=== PATIENT | male | born 1945 | race Caucasian/White ===

== ENCOUNTER 2016-08-22 08:15 | Inpatient (IN) | payer OTHER, BC ==
[2016-08-22] MEDS ORDERED: SODIUM CHLORIDE 500 ML IV STA (08:40)
--- NOTE | 2016-08-22 08:40 | PDOC ---
History of Present Illness - General Chief Complaint: Weakness Stated Complaint: WEAKNESS Time Seen by Provider: 08/22/16 08:37 History Source: Patient Exam Limitations: No Limitations - History of Present Illness Initial Comments: 08/22/16 08:42 Patient is a 71 year old male with PMH of HTN, HLD, Paroxysmal AFib, Known LBBB , Diverticulitis, COPD, Kidney stones (s/p R UVJ Stent) & depression/anxiety who presents to ED with diarrhea & loss of appetite for 2-3 days. He states he is in constant back and leg pain all the time and takes percocet for pain management. The last few days he states he has developed diarrhea and has stopped eating or drinking much. He woke up this morning covered in diarrhea and was very nauseous so he decided to come in to ED. He also reports chills, headache and mild dizziness. He also mentions having a mild cough recently that has been minimally productive with white phlegm. Denies any vomiting, chest pain , shortness of breath, or visual changes. Patient notes that he does not take most of his prescribed medications except Percocet, Xanax and "some of my blood pressure medications" (he is unable to state which exactly). Past History - Travel Traveled outside of the country in the last 30 days: No Close contact w/someone who was outside of country & ill: No - Past Medical History Allergies/Adverse Reactions: Allergies Allergy/AdvReac Type Severity Reaction Status Date / Time pregabalin [From Lyrica] Allergy Mild Verified 08/22/16 08:37 pravastatin sodium Allergy Unknown Verified 08/22/16 08:37 [From Pravachol] lactose Allergy Nausea Verified 08/22/16 08:37 morphine Allergy Verified 08/22/16 08:37 Penicillins Allergy Verified 08/22/16 08:37 Home Medications: Ambulatory Orders Atorvastatin Ca [Lipitor] 10 mg PO HS #30 tablet 11/23/14 Oxycodone HCl/Acetaminophen [Percocet 5-325 mg Tablet] 1 combo PO Q6H PRN #14 tablet 11/23/14 Lisinopril [Prinivil] 20 mg PO BID 06/24/15 Trazodone HCl [Desyrel -] 50 mg PO HS PRN 07/22/15 Pantoprazole Sodium [Protonix -] 40 mg PO BID #60 tablet.ec 07/26/15 Duloxetine HCl [Cymbalta -] 30 mg PO BID #60 capsule.dr 03/29/16 Metoprolol Succinate [Toprol XL -] 25 mg PO DAILY #30 tab.sr.24h 03/29/16 Alendronate Sodium [Fosamax] 0 mg PO WEEKLY 04/12/16 Alprazolam [Xanax] 0.25 mg PO BID 04/12/16 Tamsulosin HCl [Flomax -] 0.4 mg PO DAILY #30 cap.er.24h 05/24/16 Diltiazem Cd [Cardizem Cd -] 120 mg PO DAILY #30 cap.cd.24h 05/29/16 Docusate Sodium [Colace -] 100 mg PO BID #60 capsule 06/07/16 Oxycodone HCl/Acetaminophen [Percocet 5-325 mg Tablet] 1 - 2 tab PO Q4H Anemia: No Asthma: No Cancer: No Cardiac Disorders: Yes (HTN, HLD, Paroxysmal AFib) CVA: No COPD: Yes CHF: No Diabetes: No GI Disorders: Yes (Diverticulitis, IBS, hemorrhoids) Disorders: Yes (Englarged Prostate) HTN: Yes Hypercholesterolemia: Yes Kidney Stones: Yes (s/p Right UVJ Stent placement) Liver Disease: No Psychiatric Problems: Yes (Depression/Anxiety) Suicide Attempt (Hx): No Seizures: No Thyroid Disease: No - Surgical History Abdominal Surgery: Yes (Hernia Repair) Appendectomy: No Cardiac Surgery: No Cholecystectomy: No GI Surgery: Yes (HEMORRHOIDS/ANAL ULCER, RIGHT UVJ STENT) Lung Surgery: No Neurologic Surgery: No Orthopedic Surgery: Yes (Lumbar Back Surgery x2) - Family Disease History Comment:: Unknown - Immunization History Immunization Up to Date: Yes - Psycho/Social/Smoking Cessation Hx Anxiety: Yes Suicidal Ideation: No Smoking Status: No Smoking History: Former smoker Years of Tobacco Use: 20 Have you smoked in the past 12 months: No Number of Cigarettes Smoked Daily: 0 If you are a former smoker, when did you quit?: over 25 years ago Information on smoking cessation initiated: No 'Breaking Loose' booklet given: 09/08/13 Hx Alcohol Use: No Drug/Substance Use Hx: No Substance Use Type: None Hx Substance Use Treatment: No Review of Systems - Review of Systems Able to Perform ROS?: Yes Is the patient limited Sinhala proficient: No Constitutional: Yes: Chills, Loss of Appetite, Malaise, Weakness Respiratory: Yes: Cough Cardiac (ROS): Yes: Lightheadedness ABD/GI: Yes: Diarrhea, Nausea, Poor Appetite, Poor Fluid Intake : Yes: Incontinence Musculoskeletal: Yes: Back Pain, Muscle Pain Neurological: Yes: Headache, Dizziness Psychiatric: Yes: Anxiety, Depression *Physical Exam - Vital Signs Last Vital Signs Temp Pulse Resp BP Pulse Ox 98.3 F 93 H 18 161/81 98 08/22/16 08:35 08/22/16 08:35 08/22/16 08:35 08/22/16 08:35 08/22/16 08:37 - Physical Exam General Appearance: Yes: Other (Diaper covered with diarrhea, mild distress & anxiety) HEENT: positive: Other (Atraumatic, EOMI, PERRLA, Dry mucus membranes) Neck: positive: Trachea midline, Supple Respiratory/Chest: positive: Lungs Clear, Normal Breath Sounds Cardiovascular: positive: Regular Rhythm, Regular Rate, S1, S2 Gastrointestinal/Abdominal: positive: Normal Bowel Sounds, Flat, Soft Musculoskeletal: positive: Normal Inspection Extremity: positive: Normal Inspection, Normal Range of Motion Integumentary: positive: Normal Color, Dry, Warm Neurologic: positive: elevated motorman II-XII NML intact, Fully Oriented, Alert, Motor Strength 5/5 Heart Score/ECG Review - ECG Impressions Normal ECG: No Comment:: 08/22/16 08:54 EKG shows NSR, Old LBBB, Left Boulevard deviation, HR 95 ED Treatment Course - LABORATORY CBC & Chemistry Diagram: 08/22/16 08:42 08/22/16 08:41 - RADIOLOGY Radiology Studies Ordered: Category Date Time Status CHEST X-RAY PORTABLE* [RAD] Stat Radiology 08/22/16 08:38 Ordered 08/22/16 09:02 CXR: No significant interval change or acute lung disease. Medical Decision Making - Medical Decision Making 08/22/16 08:56 Ordered, CBC, CMP, Lactate, UA, Mg. Ordered influenza nasal swab. Ordered CXR. Will bolus 500cc NS for dehydration. 08/22/16 10:04 Leukocytosis with left shift, Lactic acid mildly elevated at 2.12 and Creatinine 1.5 (baseline ~1.3). Will order Abdomen & Pelvis CT to r/o Ischemia, Diverticulitis. 08/22/16 10:54 1mg Dilaudid given for pain management. Patient states he has taken dilaudid on several other admissions with good resolution of his pain. 08/22/16 16:09 CT scan of the abdomen and pelvis notable for mild bi-basilar atelectatic changes, L>R, with possible superimposed infiltrates in the left lung base Given WBC elevation and infiltrate seen on imaging, patient will be admitted for Pneumonia. Aztreonam started given patient's recent hospitalization Case discussed with hospitalist-will admit *DC/Admit/Observation/Transfer Diagnosis at time of Disposition: Left lower lobe pneumonia, Leukocytosis, Abdominal pain, Hydronephrosis, Acute urinary retention - Discharge Dispostion Admit: Yes
--- NOTE | 2016-08-22 09:08 | PDOC ---
Attending Attestation - Resident Resident Name: RobertRafaela - ED Attending Attestation I have performed the following: I have examined & evaluated the patient, The case was reviewed & discussed with the resident, I agree w/resident's findings & plan - HPI HPI: 08/22/16 09:06 81-year-old male with a past medical history of hypertension, hyperlipidemia, left bundle branch block, paroxysmal A. fib, COPD, status post UVJ stent secondary to ureterolithiasis, chronic musculoskeletal pain issues, for which he takes Percocet Patient is complaining of worsening of his generalized chronic pain He is also complaining of some chills nausea and weakness, and had diarrhea and some abdominal discomfort yesterday He does have IBS, and states that he does often vertigo he gets chronic abdominal discomfort But this time he now has diarrhea, without blood or black tarry stool He was nauseated but did not vomit He denies any fever - Physicial Exam PE: 08/22/16 09:08 Physical exam Last Vital Signs Temp Pulse Resp BP Pulse Ox 98.3 F 93 H 18 161/81 98 08/22/16 08:35 08/22/16 08:35 08/22/16 08:35 08/22/16 08:35 08/22/16 08:37 GENERAL: The patient is awake, alert, and fully oriented, and in no apparent distress. HEAD: Normal with no signs of trauma. NECK: Normal range of motion, supple LUNGS: Breath sounds equal, clear to auscultation bilaterally. No wheezes, and no crackles. HEART: Regular rate and rhythm, normal S1 and S2 without murmur, rub or gallop. ABDOMEN: Soft, nontender, normoactive bowel sounds. No guarding, no rebound. No masses appreciated. Men is completely soft and nontender at this time EXTREMITIES: Normal range of motion, no edema. No clubbing or cyanosis. No cords, erythema, or tenderness. NEUROLOGICAL: Cranial nerves II through XII grossly intact. Normal speech, grossly nonfocal neurologic exam PSYCH: Normal mood, normal affect. SKIN: Warm, Dry, - Medical Decision Making 08/22/16 09:10 EKG Normal sinus rhythm 95, left axis deviation -56 Normal DE interval Left bundle branch block Nonspecific ST-T waves One PVC is noted When compared to the EKG of 10/30/16 A left bundle branch block was present on the prior EKG, as was the left axis deviation 08/22/16 09:52 Microbiology 08/22/16 08:41 Influenza Types A,B Antigen (SABA) - Final Nasopharyngeal Swab - Final Laboratory Results - last 24 hr 08/22/16 08/22/16 08:41 08:42 WBC 14.3 H D RBC 4.50 D Hgb 15.0 D Hct 45.0 D MCV 100.0 H MCHC 33.4 RDW 14.2 Plt Count 167 D MPV 10.2 D Neutrophils % 89.6 H D Lymphocytes % 3.7 L D Monocytes % 5.1 Eosinophils % 1.2 Basophils % 0.4 Sodium 141 Potassium 4.5 Chloride 106 Carbon Dioxide 27 Anion Gap 8 BUN 25 H D Creatinine 1.5 H Creat Clearance w eGFR 45.87 Random Glucose 99 Calcium 9.5 Magnesium 2.3 D Total Bilirubin 0.4 AST 21 D ALT 49 D Alkaline Phosphatase 64 D Total Protein 7.3 D Albumin 4.6 D 08/22/16 09:53 Influenza A and B- negative Chest x-ray NAD Elevated white count with left shift, also elevated BUN to creatinine ratio consistent with dehydration 08/22/16 12:26 CT scan of the abdomen and pelvis COPD changes with mild bi-basilar atelectatic changes are again seen, left more than right with possible superimposed infiltrates in the left lung base There is interval removal of previously visualized right ureteral stent There remains a moderate dilatation of the right renal pelvis, and mild dilatation of the right ureter Extensive diverticulosis without acute diverticulitis Multilevel DJD Elevated white count, elevated lactic acid (mildly elevated), and possible new infiltrate seen on chest x-ray 08/22/16 13:07 Recent hospitaliztion Pt allergic to PCN - cannot cover with levaquin and zosyn, will use aztreonam 08/22/16 13:10 he currently in urinary retention, and has not urinated since he came into the emergency department although he feels like he has to Will place Medrano catheter We'll evaluate for urinary tract infection also Case discussed with hospitalist-will admit 08/22/16 13:11 Impression-left lower lobe infiltrate, dehydration, diarrhea, exacerbation of chronic abdominal pain, urinary retention Discharge Disposition - Diagnosis Left lower lobe pneumonia, Leukocytosis, Abdominal pain, Hydronephrosis, Acute urinary retention - Discharge Dispostion Disposition: VNS/HOME HEALTH CARE Condition at time of disposition: Improved Last Admission D/C Date: 06/07/16 Admit: Yes - Prescriptions
[2016-08-22 09:12] LABS: BASOPHIL 0.4 % (0-2.0); EOSINOPHIL 1.2 % (0-4.5); MCH 33.4 pg (25.7-33.7); MCHC 33.4 g/dl (32.0-35.9); MEAN PLT VOLUME 10.2 fl (7.5-11.1); NEUTROPHILS 89.6 % (42.8-82.8); PLATELET COUNT 167 K/MM3 (134-434); RDW 14.2 % (11.9-15.9); WHITE BLOOD COUNT 14.3 K/mm3 (4.0-10.0)
[2016-08-22 09:37] LABS: ALBUMIN 4.6 g/dl (3.4-5.0); CALCIUM 9.5 mg/dL (8.5-10.1); CREATININE 1.5 mg/dL (0.7-1.3); MAGNESIUM 2.3 mg/dL (1.8-2.4)
[2016-08-22 09:38] LABS: BILIRUBIN,TOTAL 0.4 mg/dL (0.2-1.0); TOT PROT 7.3 g/dl (6.4-8.2)
[2016-08-22] MEDS ORDERED: OXYCODONE/APAP 5/325MG COMBO TABLET PO ONE (10:48)
[2016-08-22] MEDS ORDERED: HYDROmorphone HCL CARPU-JECT 1 MG/1 ML DISP.SYRIN ONE ×2 (10:58→20:05)
[2016-08-22] MEDS: HYDROmorphone HCL CARPU-JECT 1 MG/1 ML DISP.SYRIN IVPUSH PRN ×2 (10:59→20:11)
[2016-08-22] MEDS ORDERED: AZTREONAM 1 GM in DEXTROSE 5%-WATER - 50 ML IVPB ONE (13:11)
[2016-08-22 13:37] LABS: URINE APPEARANCE CLEAR; URINE BILIRUBIN NEGATIVE (NEGATIVE); URINE BLOOD NEGATIVE (NEGATIVE); URINE COLOR LTYELLOW; URINE GLUCOSE (UA) NEGATIVE (NEGATIVE); URINE KETONE NEGATIVE (NEGATIVE); URINE NITRITE NEGATIVE (NEGATIVE); URINE PROTEIN NEGATIVE (NEGATIVE); URINE UROBILINOGEN NEGATIVE E.U./dl (0.2-1.0)
[2016-08-22 13:38] LABS: URINE LEUK ESTERASE TRACE (NEGATIVE)
[2016-08-22 13:40] LABS: URINE MUCUS RARE; URINE RBC 1 /hpf (0-3); URINE WBC 4 /hpf (3-5)
[2016-08-22] MEDS ORDERED: OXYCODONE/APAP 5/325MG COMBO TABLET PO PRN (13:59)
[2016-08-22] MEDS ORDERED: ALPRAZOLAM 0.25 MG PO PRN (13:59)
--- NOTE | 2016-08-22 13:59 | HP ---
PCP: None CHIEF COMPLAINT: Weakness HISTORY OF PRESENT ILLNESS: This is a 71-year-old man who comes to the ER today because of worsening weakness. He says he has chronic pain in his low back, hips and legs. He usually has difficulty walking and getting around. For the last few days, he has been feeling worse. He also reports having occasional chills. He denies chest pain, shortness of breath, palpitations, cough. He has been incontinent of urine. He denies dysuria, hematuria. He says he has not been to a physician in 3 years, he just calls an ambulance to take him to the ER when needed. PAST MEDICAL HISTORY Hypertension Hyperlipidemia Paroxymal atrial fibrillation Mild pulmonary hypertension COPD Depression and anxiety Kidney stones Chronic pain Failed back syndrome Osteoarthritis Osteoporosis Stage 3 CKD Diverticulosis PAST SURGICAL HISTORY Hernia repair Back surgery x2 Allergies pregabalin [From Lyrica] Allergy (Mild, Verified 08/22/16 08:37) pravastatin sodium [From Pravachol] Allergy (Unknown, Verified 08/22/16 08:37) however, pt takes atorvastatin 10 mg daily at home, reportedly without side effects lactose Allergy (Verified 08/22/16 08:37) Nausea morphine Allergy (Verified 08/22/16 08:37) unknown Penicillins Allergy (Verified 08/22/16 08:37) unknown affect HOME MEDICATIONS 3 Medication Instructions Recorded Atorvastatin Ca [Lipitor] 10 mg PO HS #30 tablet 11/23/14 Oxycodone HCl/Acetaminophen 1 combo PO Q6H PRN #14 tablet 11/23/14 [Percocet 5-325 mg Tablet] Lisinopril [Prinivil] 20 mg PO BID 06/24/15 Trazodone HCl [Desyrel -] 50 mg PO HS PRN 07/22/15 Pantoprazole Sodium [Protonix -] 40 mg PO BID #60 tablet.ec 07/26/15 Duloxetine HCl [Cymbalta -] 30 mg PO BID #60 capsule. 03/29/16 Metoprolol Succinate [Toprol XL -] 25 mg PO DAILY #30 tab.sr.24h 03/29/16 Alendronate Sodium [Fosamax] 0 mg PO WEEKLY 04/12/16 Alprazolam [Xanax] 0.25 mg PO BID 04/12/16 Tamsulosin HCl [Flomax -] 0.4 mg PO DAILY #30 cap.er.24h 05/24/16 Diltiazem Cd [Cardizem Cd -] 120 mg PO DAILY #30 cap.cd.24h 05/29/16 Docusate Sodium [Colace -] 100 mg PO BID #60 capsule 06/07/16 Oxycodone HCl/Acetaminophen 1 - 2 tab PO Q4H 08/22/16 [Percocet 5-325 mg Tablet] Social History: Smoking: Former smoker Alcohol: None Drugs: None Recent Travel: No Family History: Non-contributory REVIEW OF SYSTEMS CONSTITUTIONAL: Present: chills, generalized weakness. Absent: diaphoresis, malaise, loss of appetite, weight change HEENT: Absent: rhinorrhea, nasal congestion, throat pain, throat swelling, difficulty swallowing, mouth swelling, ear pain, eye pain, visual changes CARDIOVASCULAR: Absent: chest pain, syncope, palpitations, lightheadedness, peripheral edema RESPIRATORY: Absent: cough, shortness of breath, dyspnea with exertion, orthopnea, wheezing, stridor, hemoptysis GASTROINTESTINAL: Absent: abdominal pain, abdominal distension, nausea, vomiting , diarrhea, constipation, melena, hematochezia GENITOURINARY: Absent: dysuria, frequency, urgency, hesitancy, hematuria, flank pain MUSCULOSKELETAL: Present: myalgia, arthralgia, back pain, neck pain SKIN: Absent: rash, itching, pallor HEMATOLOGIC/IMMUNOLOGIC: Absent: easy bleeding, easy bruising, lymphadenopathy, frequent infections ENDOCRINE: Absent: unexplained weight gain, unexplained weight loss, heat intolerance, cold intolerance NEUROLOGIC: Present: urine incontinence .Absent: headache, focal weakness, paresthesias, dizziness, unsteady gait, seizure, mental status changes, bowel incontinence PSYCHIATRIC: Present: anxiety, depression. Absent: suicidal or homicidal ideation, hallucinations. PHYSICAL EXAMINATION Vital Signs Period Temp Pulse Resp BP Sys/Suazo Pulse Ox Last 24 Hr 98.3 F 93 18 161/81 98-98 GENERAL: Awake, alert, and fully oriented, in no acute distress. HEAD: Normal with no signs of trauma. EYES: Pupils equal, round and reactive to light, extraocular movements intact, sclerae anicteric, conjunctivae clear. EARS, NOSE, THROAT: Ears normal, nares patent, oropharynx clear without exudates. Moist mucous membranes. NECK: Normal range of motion, supple without lymphadenopathy, JVD, or masses. LUNGS: Breath sounds equal, clear to auscultation bilaterally. No wheezes, and no crackles. No accessory muscle use. HEART: Regular rate and rhythm, normal S1 and S2 without murmur, rub or gallop. ABDOMEN: Soft, nontender, not distended, normoactive bowel sounds, no guarding, no rebound, no masses. No hepatomegaly or splenomegaly. MUSCULOSKELETAL: Range of motion limited secondary to pain. No tenderness. No CVA tenderness. UPPER EXTREMITIES: 2+ pulses, warm, well-perfused. No cyanosis. No clubbing. Cap refill <2 seconds. No peripheral edema. LOWER EXTREMITIES: 1+ pulses, warm, well-perfused. No calf tenderness. No peripheral edema. NEUROLOGICAL: Cranial nerves II-XII intact. Normal speech. Gait not observed. PSYCHIATRIC: Cooperative. Good eye contact. Appropriate mood and affect. SKIN: Warm, dry, normal turgor, no rashes or lesions noted. Laboratory Results - last 24 hr 08/22/16 08/22/16 08/22/16 08:41 08:41 08:42 WBC 14.3 H D RBC 4.50 D Hgb 15.0 D Hct 45.0 D MCV 100.0 H MCHC 33.4 RDW 14.2 Plt Count 167 D MPV 10.2 D Neutrophils % 89.6 H D Lymphocytes % 3.7 L D Monocytes % 5.1 Eosinophils % 1.2 Basophils % 0.4 Sodium 141 Potassium 4.5 Chloride 106 Carbon Dioxide 27 Anion Gap 8 BUN 25 H D Creatinine 1.5 H Creat Clearance w eGFR 45.87 Random Glucose 99 Lactic Acid 2.123 H* Calcium 9.5 Magnesium 2.3 D Total Bilirubin 0.4 AST 21 D ALT 49 D Alkaline Phosphatase 64 D Total Protein 7.3 D Albumin 4.6 D Total Amylase 137 H D Urine Color Urine Appearance Urine pH Ur Specific Thornton Urine Protein Urine Glucose (UA) Urine Ketones Urine Blood Urine Nitrite Urine Bilirubin Urine Urobilinogen Ur Leukocyte Esterase Urine RBC Urine WBC Urine Mucus 08/22/16 13:18 WBC RBC Hgb Hct MCV MCHC RDW Plt Count MPV Neutrophils % Lymphocytes % Monocytes % Eosinophils % Basophils % Sodium Potassium Chloride Carbon Dioxide Anion Gap BUN Creatinine Creat Clearance w eGFR Random Glucose Lactic Acid Calcium Magnesium Total Bilirubin AST ALT Alkaline Phosphatase Total Protein Albumin Total Amylase Urine Color Ltyellow Urine Appearance Clear Urine pH 6.0 Ur Specific Thornton 1.015 Urine Protein Negative Urine Glucose (UA) Negative Urine Ketones Negative Urine Blood Negative Urine Nitrite Negative Urine Bilirubin Negative Urine Urobilinogen Negative Ur Leukocyte Esterase Trace H D Urine RBC 1 Urine WBC 4 Urine Mucus Rare Medication Instructions Recorded Atorvastatin Ca [Lipitor] 10 mg PO HS #30 tablet 11/23/14 Oxycodone HCl/Acetaminophen 1 combo PO Q6H PRN #14 tablet 11/23/14 [Percocet 5-325 mg Tablet] Lisinopril [Prinivil] 20 mg PO BID 06/24/15 Trazodone HCl [Desyrel -] 50 mg PO HS PRN 07/22/15 Pantoprazole Sodium [Protonix -] 40 mg PO BID #60 tablet.ec 07/26/15 Duloxetine HCl [Cymbalta -] 30 mg PO BID #60 capsule. 03/29/16 Metoprolol Succinate [Toprol XL -] 25 mg PO DAILY #30 tab.sr.24h 03/29/16 Alendronate Sodium [Fosamax] 0 mg PO WEEKLY 04/12/16 Alprazolam [Xanax] 0.25 mg PO BID 04/12/16 Tamsulosin HCl [Flomax -] 0.4 mg PO DAILY #30 cap.er.24h 05/24/16 Diltiazem Cd [Cardizem Cd -] 120 mg PO DAILY #30 cap.cd.24h 05/29/16 Docusate Sodium [Colace -] 100 mg PO BID #60 capsule 06/07/16 Oxycodone HCl/Acetaminophen 1 - 2 tab PO Q4H 08/22/16 [Percocet 5-325 mg Tablet] EKG: Sinus rhythm, rate 95. PVCs. LBBB. LAD. No change from 05/19. Chest x-ray: No acute process. CT abdomen/pelvis: Atelectasis of both lung bases with infiltrates at left base. s/p removal of right ureteral stent. Moderate dilatation of right renal pelvis. Mild dilatation of right ureter. Enlarged prostate. Lumbar degenerative disease. Diverticulosis ASSESSMENT/PLAN: This is a 71-year-old man with a history of HTN, hyperlipidemia, PAF, pulm HTN, COPD, depression, anxiety, CKD 3, and chronic pain who comes to the ER today complaining of worsening weakness, worsening pain and chills. He was found to have WBC 14.3, lactic acid 2.123, BUN 25, creatinine 1.5. CT shows left base infiltrate. He is being admitted now for treatment of an emergent condition. 1. Pneumonia - Allergic to penicillin, so Azactam given in ER - Monitor temp, WBC - Follow up blood cultures - Repeat lactic acid - Oxygen as needed, Albuterol as needed - ID consult 2. Hypertension - Continue Toprol XL, Cardizem CD, Lisinopril 3. Hyperlipidemia - Continue Lipitor 4. Paroxysmal atrial fibrillation - Currently in sinus rhythm - Continue Toprol XL, Cardizem CD 5. Mild pulmonary hypertension 6. COPD - Stable - DuoNeb as needed 7. Depression and anxiety - Continue Cymbalta, Trazodone, Xanax 8. Chronic pain - Continue Percocet as needed 9. Failed back syndrome 10. Osteoarthritis 11. Osteoporosis - Continue Fosamax 12. Stage 3 CKD - Creatinine is at baseline but BUN higher - IV fluid and monitor BUN, creatinine 13. BPH - Continue Flomax Visit type - Emergency Visit Emergency Visit: Yes Care time: The patient presented to the Emergency Department on the above date and was hospitalized for further evaluation of their emergent condition. - New Patient This patient is new to me today: Yes Date on this admission: 08/22/16 - Critical Care Critical Care patient: No
[2016-08-22] MEDS ORDERED: traZODone HCL 50 MG TABLET (FP) PO SCH (14:00)
[2016-08-22] MEDS ORDERED: ALBUTEROL SO4 0.083% IH SOL 2.5 MG/3 ML VIAL.NEB. NEB PRN (14:02)
[2016-08-22] MEDS ORDERED: ACETAMINOPHEN 325 MG TABLET (FP) PO PRN ×2 (14:02→14:31)
[2016-08-22] MEDS: SODIUM CHLORIDE 1,000 ML IV SCH (14:19)
[2016-08-22] MEDS ORDERED: ALPRAZolam 0.25 MG TABLET PO PRN (14:30)
[2016-08-22] MEDS: HEPARIN NA (PORCINE) 5,000 UNITS/ML 1ML VIAL SQ SCH ×2 (14:55→23:55)
[2016-08-22] MEDS ORDERED: traMADol HCL 50 MG TABLET ONE (14:58)
--- NOTE | 2016-08-22 15:36 | EKG ---
Test Reason : Blood Pressure : / mmHG Vent. Rate : 095 BPM Atrial Rate : 095 BPM P-R Int : 152 ms QRS Dur : 128 ms QT Int : 384 ms P-R-T Axes : 029 -56 093 degrees QTc Int : 482 ms SINUS RHYTHM WITH OCCASIONAL PREMATURE VENTRICULAR COMPLEXES LEFT AXIS DEVIATION LEFT BUNDLE BRANCH BLOCK ABNORMAL ECG WHEN COMPARED WITH ECG OF 02-JUN-2016 09:50, NO SIGNIFICANT CHANGE WAS FOUND Confirmed by ALLY BATISTA, JUSTIN ([id number]) on 08/22/2016 3:35:46 PM Referred By: Confirmed By:JUSTIN CANALES MD
[2016-08-22] MEDS ORDERED: HEPARIN NA (PORCINE) 5,000 UNITS/ML 1ML VIAL ONE (15:43)
--- NOTE | 2016-08-22 17:09 | PN ---
Progress Note (short form) - Note Progress Note: ID Consult dictated Sepsis Possible LLL pneumonia PCN allergy Pending c/s empiric cefepime/ vancomycin Has tolerated cephalosporins in past
[2016-08-22] MEDS ORDERED: CEFEPIME HCL 1 GM VIAL (RESTRICTED TO ID) IVPB SCH (17:15)
[2016-08-22] MEDS ORDERED: CEFEPIME 1 GM in DEXTROSE 5%-WATER - 100 ML IVPB SCH (17:45)
--- NOTE | 2016-08-22 19:13 | CONS ---
DATE OF CONSULTATION: DATE OF DICTATION: 08/22/2016 INFECTIOUS DISEASE CONSULTATION HISTORY OF PRESENT ILLNESS: The patient is a 71-year-old male evaluated for sepsis. He reported to the emergency room with complaints of anorexia, nausea, diarrhea, back and leg pain. He also reported occasional cough. Upon evaluation, he was found to have an elevated white blood cell count and elevated lactic acid level. Chest x-ray showed possible left lower lobe infiltrate. He reports cough productive of whitish sputum. He denies any hemoptysis. Patient was hospitalized in May of 2016 for an obstructing right kidney stone. He underwent a right ureteral stent and laser lithotripsy. Since that time it has been removed, and he has had no urinary tract complaints. He denies any dysuria or hematuria. PAST MEDICAL HISTORY: Positive for atrial fibrillation, nephrolithiasis, hypertension, hyperlipidemia, COPD, BPH. ALLERGIES: PENICILLIN. Patient has tolerated cephalosporins in the past. MEDICATION: Include Zofran, Flomax, Tylenol, Prinivil, Cymbalta, trazodone, metoprolol, diltiazem, Lipitor. SOCIAL HISTORY: Lives at home, former smoker. SYSTEMS REVIEW: Neurologic: No loss of consciousness, seizure activity, or focal weakness. Cardiac: Negative chest pain or palpitations. Respiratory: As per HPI. Gastrointestinal: Negative vomiting or diarrhea. Genitourinary: Negative for urinary tract infection. LABORATORY DATA: White count 14.3, hematocrit 45.0, platelet count 167, creatinine 1.5. Urinalysis 4 white cells. Chest x-ray shows possible left lower lobe infiltrate. PHYSICAL EXAMINATION: General: He is awake, responsive. Vital signs: Temperature 98.4. Blood pressure 130/73, pulse 93 regular, respirations 18 per minute. HEENT: Sclerae anicteric. Cardiovascular: Heart sounds S1, S2. Respiratory: Lungs decreased breath sounds bilaterally. Abdomen: Soft. No tenderness elicited. No mass, rebound, or rigidity. Extremities: Negative for edema. IMPRESSION: 1. Sepsis. 2. Possible left lower lobe pneumonia. 3. PENICILLIN allergy. Pending sepsis workup, empiric antibiotic coverage with cefepime and vancomycin adjusted for azotemia. Patient has tolerated cephalosporins in the past. Will follow. Thank you for the kind referral. SANDOVAL GORE M.D. [id number]
[2016-08-22] MEDS ORDERED: VANCOMYCIN 1 GRAM (PRE-DOCKED) 250 ML IVPB ONE (20:14)
[2016-08-22] MEDS: VANCOMYCIN 1 GRAM (PRE-DOCKED) 250 ML IVPB SCH (20:15)
[2016-08-22] MEDS: DOCUSATE SODIUM 100 MG CAPSULE (FP) PO SCH (23:55)
[2016-08-22] MEDS: PANTOPRAZOLE 40 MG TABLET (FP) PO SCH (23:55)
[2016-08-23] MEDS ORDERED: HYDROmorphone HCL CARPU-JECT 1 MG/1 ML DISP.SYRIN ONE (00:15)
[2016-08-23] MEDS ORDERED: PANTOPRAZOLE 40 MG TABLET (FP) ONE (00:16)
[2016-08-23] MEDS ORDERED: ALPRAZolam 0.25 MG TABLET ONE (00:16)
[2016-08-23] MEDS ORDERED: DOCUSATE SODIUM 100 MG CAPSULE (FP) PO ONE (00:17)
[2016-08-23] MEDS ORDERED: LISINOPRIL 20 MG TABLET (FP) ONE (00:17)
[2016-08-23] MEDS ORDERED: HEPARIN NA (PORCINE) 5,000 UNITS/ML 1ML VIAL ONE (00:17)
[2016-08-23] MEDS ORDERED: dilTIAZem HCL 60 MG TABLET (FP) ONE (00:17)
[2016-08-23] MEDS ORDERED: TAMSULOSIN HCL 0.4 MG CAP.ER.24H (FP) ONE (00:17)
[2016-08-23] MEDS ORDERED: DULoxetine HCL 30 MG CAPSULE.DR (FP) PO ONE (00:18)
[2016-08-23] MEDS: DULoxetine HCL 30 MG CAPSULE.DR (FP) PO SCH ×3 (00:42→21:28)
[2016-08-23] MEDS: traZODone HCL 50 MG TABLET (FP) PO SCH ×2 (00:43→21:28)
[2016-08-23] MEDS: ATORVASTATIN CA 10 MG TABLET (FP) PO SCH ×2 (00:46→21:28)
[2016-08-23] MEDS: SODIUM CHLORIDE 1,000 ML IV SCH ×2 (02:12→17:17)
[2016-08-23 02:59] VITALS: BMI 25.4
[2016-08-23] MEDS: ONDANSETRON 4 MG/2 ML VIAL IVPB PRN ×3 (03:34→16:21)
[2016-08-23] MEDS: HYDROmorphone HCL CARPU-JECT 1 MG/1 ML DISP.SYRIN IVPUSH PRN (04:39)
--- NOTE | 2016-08-23 05:11 | HOSP ---
Physical Examination Vital Signs: Vital Signs Temperature 98.1 F 08/23/16 02:55 Pulse Rate 82 08/23/16 02:55 Respiratory Rate 20 08/23/16 03:05 Blood Pressure 156/86 08/23/16 02:55 O2 Sat by Pulse Oximetry (%) 96 08/23/16 03:05 Hospitalist Encounter Assessment: I was called by the nurse and was informed that patient is experiencing dry heaving associated with abdominal pain and anxiety. When I arrived patient reports the dry heaving has resolved but is still experiencing abdominal pain and nausea. Patient states the pain is located in the right lower abdomen and describe the pain as "gassy" and distended. Patient also reports he feels very anxious and needs to sleep. On examination he had regular heart rate and rhythm with no rubs, gallops, or murmurs. Lungs were clear to auscultate bilaterally. Normoactive bowel sounds with a distended abdomen and tenderness upon palpation of right lower quadrant. I spent 10 minutes with the patient and explained to him that the dilaudid can cause nausea. During the 10 minutes I spent with the patient he had no episodes of dry heaving and no episodes of severe abdominal pain. -Zofran was given -Dilaudid IVPB was held until patient feels less nauseated and patient asked to stop the Dilaudid 10 minutes later patient was in bed snoring and resting comfortably in bed. Visit type - Emergency Visit Emergency Visit: No - New Patient This patient is new to me today: Yes Date on this admission: 08/23/16 - Critical Care Critical Care patient: No
[2016-08-23] MEDS: HEPARIN NA (PORCINE) 5,000 UNITS/ML 1ML VIAL SQ SCH ×3 (06:24→21:28)
[2016-08-23] MEDS: CEFEPIME 1 GM/100 ML BAG PRE-DOCKED IVPB SCH ×2 (06:26→19:14)
[2016-08-23] MEDS ORDERED: PATIENT'S OWN MEDICATION (NON-FORMULARY) (Alendronate Na [Fosamax (Weekly)] 70 MG) PO SCH (07:00)
[2016-08-23 08:12] LABS: BASOPHIL 0.1 % (0-2.0); EOSINOPHIL 0.4 % (0-4.5); MCH 33.9 pg (25.7-33.7); MCHC 33.8 g/dl (32.0-35.9); MEAN CELL VOLUME 100.5 fl (80-96); MEAN PLT VOLUME 10.2 fl (7.5-11.1); NEUTROPHILS 92.4 % (42.8-82.8); PLATELET COUNT 142 K/MM3 (134-434); RDW 13.9 % (11.9-15.9); WHITE BLOOD COUNT 14.2 K/mm3 (4.0-10.0)
[2016-08-23 08:26] LABS: CALCIUM 8.1 mg/dL (8.5-10.1); CREATININE 1.4 mg/dL (0.7-1.3)
[2016-08-23] MEDS: DOCUSATE SODIUM 100 MG CAPSULE (FP) PO SCH ×2 (10:34→21:28)
[2016-08-23] MEDS: TAMSULOSIN HCL 0.4 MG CAP.ER.24H (FP) PO SCH (10:34)
[2016-08-23] MEDS: PANTOPRAZOLE 40 MG TABLET (FP) PO SCH ×2 (10:34→21:28)
[2016-08-23] MEDS: METOPROLOL SUCCINATE 25 MG TAB.SR.24H (FP) PO SCH (12:46)
[2016-08-23] MEDS: LISINOPRIL 20 MG TABLET (FP) PO SCH (12:46)
--- NOTE | 2016-08-23 14:29 | PN ---
Progress Note, Physician History of Present Illness: C/O generalized weakness,pain No c/o chest pain/ dyspnea/ cough Afebrile WBC remains slightly elevated Flu swab (-) BC no growth Tolerating cephalosporin - Current Medication List Current Medications: Active Medications Acetaminophen (Tylenol -) 650 mg PO Q4H PRN PRN Reason: FEVER OR PAIN Acetaminophen (Tylenol -) 325 mg PO Q6H PRN PRN Reason: FEVER OR PAIN Albuterol Sulfate (Ventolin 0.083% Nebulizer Soln -) 1 amp NEB Q4H PRN PRN Reason: SHORT OF BREATH/WHEEZING Alprazolam (Xanax -) 0.25 mg PO Q12H PRN Last Admin: 08/22/16 23:55 Dose: 0.25 mg Atorvastatin Calcium (Lipitor -) 10 mg PO HS [facility] Last Admin: 08/23/16 00:46 Dose: Not Given Cefepime HCl (Maxipime 1gm Ivpb Pre-Docked) 1 gm IVPB Q12H [facility] Last Admin: 08/23/16 06:26 Dose: 1 gm Diltiazem HCl (Cardizem Cd -) 120 mg PO DAILY [facility] Last Admin: 08/23/16 12:46 Dose: Not Given Docusate Sodium (Colace -) 100 mg PO BID [facility] Last Admin: 08/23/16 10:34 Dose: Not Given Duloxetine HCl (Cymbalta -) 30 mg PO BID [facility] Last Admin: 08/23/16 10:34 Dose: 30 mg Heparin Sodium (Porcine) (Heparin -) 5,000 unit SQ TID [facility] Last Admin: 08/23/16 06:24 Dose: 5,000 unit Hydromorphone HCl (Dilaudid Injection -) 1 mg IVPUSH Q4H PRN PRN Reason: PAIN Last Admin: 08/23/16 04:39 Dose: 1 mg Sodium Chloride (Normal Saline -) 1,000 mls @ 83 mls/hr IV ASDIR [facility] Last Admin: 08/23/16 02:12 Dose: 83 mls/hr Vancomycin HCl (Vancomycin (Pre-Docked)) 250 mls @ 200 mls/hr IVPB Q24H [facility] Last Admin: 08/22/16 20:15 Dose: 200 mls/hr Lisinopril (Prinivil) 20 mg PO DAILY [facility] Last Admin: 08/23/16 12:46 Dose: Not Given Metoprolol Succinate (Toprol Xl -) 25 mg PO DAILY [facility] Last Admin: 08/23/16 12:46 Dose: Not Given Ondansetron HCl (Zofran Injection) 4 mg IVPB Q6H PRN PRN Reason: NAUSEA Last Admin: 08/23/16 10:14 Dose: 4 mg Oxycodone HCl (Roxicodone -) 5 mg PO Q6H PRN Pantoprazole Sodium (Protonix -) 40 mg PO BID [facility] Last Admin: 08/23/16 10:34 Dose: 40 mg Tamsulosin HCl (Flomax -) 0.4 mg PO DAILY [facility] Last Admin: 08/23/16 10:34 Dose: 0.4 mg Trazodone HCl (Desyrel -) 50 mg PO HS [facility] Last Admin: 08/23/16 00:43 Dose: Not Given - Objective Vital Signs: Vital Signs Temperature 98.5 F 08/23/16 09:00 Pulse Rate 85 08/23/16 12:30 Respiratory Rate 20 08/23/16 09:00 Blood Pressure 114/66 08/23/16 12:30 O2 Sat by Pulse Oximetry (%) 96 08/23/16 09:00 Constitutional: Yes: No Distress Eyes: Yes: Conjunctiva Clear Cardiovascular: Yes: Regular Rate and Rhythm, S1, S2 Respiratory: Yes: Diminished Gastrointestinal: Yes: Normal Bowel Sounds, Soft. No: Tenderness Labs: CBC, BMP 08/23/16 06:25 08/23/16 06:25 Assessment/Plan LLL pneumonia Possible sepsis secondary to pneumonia PCN allergy Await cultures Continue empiric cefepime/vancomycin
--- NOTE | 2016-08-23 15:36 | PN ---
Progress Note (short form) - Note Progress Note: Subjective: The patient was seen and examined at the bedside, he reports having discomfort with his walsh catheter. He was also reporting nausea this AM. Current Medications Generic Name Dose Route Start Last Admin Trade Name Freq PRN Reason Stop Dose Admin Acetaminophen 650 mg 08/22/16 14:02 Tylenol - PO Q4H PRN FEVER OR PAIN Acetaminophen 325 mg 08/22/16 14:31 Tylenol - PO Q6H PRN FEVER OR PAIN Albuterol Sulfate 1 amp 08/22/16 14:02 Ventolin 0.083% Nebulizer Soln - NEB Q4H PRN SHORT OF BREATH/WHEEZING Alprazolam 0.25 mg 08/22/16 14:30 08/22/16 23:55 Xanax - PO 0.25 mg Q12H PRN Administration Atorvastatin Calcium 10 mg 08/22/16 22:00 08/23/16 00:46 Lipitor - PO Not Given HS [facility] Cefepime HCl 1 gm 08/23/16 07:00 08/23/16 06:26 Maxipime 1gm Ivpb Pre-Docked IVPB 1 gm Q12H [facility] Administration Diltiazem HCl 120 mg 08/23/16 10:00 08/23/16 12:46 Cardizem Cd - PO Not Given DAILY [facility] Docusate Sodium 100 mg 08/22/16 22:00 08/23/16 10:34 Colace - PO Not Given BID [facility] Duloxetine HCl 30 mg 08/22/16 22:00 08/23/16 10:34 Cymbalta - PO 30 mg BID [facility] Administration Heparin Sodium (Porcine) 5,000 unit 08/22/16 14:30 08/23/16 14:39 Heparin - SQ 5,000 unit TID [facility] Administration Hydromorphone HCl 1 mg 08/22/16 10:52 08/23/16 04:39 Dilaudid Injection - IVPUSH 1 mg Q4H PRN Administration PAIN Sodium Chloride 1,000 mls @ 83 mls/hr 08/22/16 14:15 08/23/16 02:12 Normal Saline - IV 83 mls/hr ASDIR [facility] Administration Vancomycin HCl 250 mls @ 200 mls/hr 08/22/16 17:15 08/22/16 20:15 Vancomycin (Pre-Docked) IVPB 200 mls/hr Q24H [facility] Administration Lisinopril 20 mg 08/23/16 10:00 08/23/16 12:46 Prinivil PO Not Given DAILY [facility] Metoprolol Succinate 25 mg 08/23/16 10:00 08/23/16 12:46 Toprol Xl - PO Not Given DAILY [facility] Ondansetron HCl 4 mg 08/22/16 14:02 08/23/16 10:14 Zofran Injection IVPB 4 mg Q6H PRN Administration NAUSEA Oxycodone HCl 5 mg 08/22/16 14:31 Roxicodone - PO Q6H PRN Pantoprazole Sodium 40 mg 08/22/16 22:00 08/23/16 10:34 Protonix - PO 40 mg BID [facility] Administration Tamsulosin HCl 0.4 mg 08/23/16 10:00 08/23/16 10:34 Flomax - PO 0.4 mg DAILY [facility] Administration Trazodone HCl 50 mg 08/22/16 22:00 08/23/16 00:43 Desyrel - PO Not Given HS [facility] Objective: Vital Signs Period Temp Pulse Resp BP Sys/Suazo Pulse Ox Last 24 Hr 98.1 F-98.7 F 82-100 20-20 99-156/57-92 96-96 Physical Exam: General: NAD, A&Ox3 Lungs: CTA bilaterally Heart: RRR, S1S2 Abd: Soft, non-tender, non-distended. Normoactive bowel sounds Ext: Warm, well-perfused. 2+ DP/PT bilaterally Neuro: CN 2-12 intact : Walsh catheter in place CBCD WBC 14.2 K/mm3 (4.0-10.0) H 08/23/16 06:25 RBC 3.94 M/mm3 (4.00-5.60) L 08/23/16 06:25 Hgb 13.4 GM/dL (11.7-16.9) D 08/23/16 06:25 Hct 39.6 % (35.4-49) 08/23/16 06:25 MCV 100.5 fl (80-96) H 08/23/16 06:25 MCHC 33.8 g/dl (32.0-35.9) 08/23/16 06:25 RDW 13.9 % (11.9-15.9) 08/23/16 06:25 Plt Count 142 K/MM3 (134-434) 08/23/16 06:25 MPV 10.2 fl (7.5-11.1) 08/23/16 06:25 CMP Sodium 138 mmol/L (136-145) 08/23/16 06:25 Potassium 4.5 mmol/L (3.5-5.1) 08/23/16 06:25 Chloride 106 mmol/L (98-107) 08/23/16 06:25 Carbon Dioxide 22 mmol/L (21-32) 08/23/16 06:25 Anion Gap 10 (8-16) 08/23/16 06:25 BUN 20 mg/dL (7-18) H 08/23/16 06:25 Creatinine 1.4 mg/dL (0.7-1.3) H 08/23/16 06:25 Creat Clearance w eGFR 45.87 (>60) 08/22/16 08:41 Random Glucose 122 mg/dL (74-106) H D 08/23/16 06:25 Calcium 8.1 mg/dL (8.5-10.1) L 08/23/16 06:25 Total Bilirubin 0.4 mg/dL (0.2-1.0) 08/22/16 08:41 AST 21 U/L (15-37) D 08/22/16 08:41 ALT 49 U/L (12-78) D 08/22/16 08:41 Alkaline Phosphatase 64 U/L (45-117) D 08/22/16 08:41 Total Protein 7.3 g/dl (6.4-8.2) D 08/22/16 08:41 Albumin 4.6 g/dl (3.4-5.0) D 08/22/16 08:41 Microbiology 08/22/16 13:50 Blood - Peripheral Venous Blood Culture - Preliminary NO GROWTH OBTAINED AFTER 24 HOURS, INCUBATION TO CONTINUE FOR 4 DAYS. 08/22/16 13:30 Blood - Peripheral Venous Blood Culture - Preliminary NO GROWTH OBTAINED AFTER 24 HOURS, INCUBATION TO CONTINUE FOR 4 DAYS. 08/22/16 13:18 Urine - Urine - Catheterized Urine Culture - Preliminary Staphylococcus Coagulase Neg 08/22/16 08:41 Nasopharyngeal Swab Influenza Types A,B Antigen (SABA) - Final 08/22/16 08:41 Nasopharyngeal Swab - Final Assessment: This is a 71 year old male with PMHx of HTN, hyperlipidemia, paroxysmal a.fib, pulmonary htn, COPD, depression, anxiety, CKD stage 3, chronic pain who presented to the ED with worsening weakness, chills, pain and was found to have a pneumonia. Plan: 1) ID: Severe sepsis 2/2 pneumonia - Lactic acidosis resolved - Influenza A&B negative - CTAP with probable superimposed infiltrates in the left lung base - Continue empiric cefepime and vancomycin - WBC remain elevated - Afebrile - Appreciate ID consult 2) : acute urinary retention - Walsh catheter placed in ED - BPH, continue Flomax - Walsh to be removed tomorrow, DTV trial CKD stage 3 - BUN trending down - Continue to monitor, Cr at baseline 3) Cardiology: Paroxysmal a.fib - Continue Toprol XL for rate control - Continue Cardizem - Patient is refusing anticoagulation HTN - As above - Continue Lisinopril Hyperlipidemia - Continue Lipitor 4) Psych: Depression, anxiety - Continue Cymbalta - Continue Trazodone - Continue Xanax 5) Pulmonary: COPD - Stable - Albuterol nebs prn 6) F/E/N: - Regular diet - Monitor electrolytes 7) Prophylaxis: - Heparin 5,000u sq tid - PT 8) Dispo: - Requires continued inpatient care CODE STATUS: FULL CODE Visit type - Emergency Visit Emergency Visit: Yes ED Registration Date: 08/22/16 Care time: The patient presented to the Emergency Department on the above date and was hospitalized for further evaluation of their emergent condition. - New Patient This patient is new to me today: Yes Date on this admission: 08/23/16 - Critical Care Critical Care patient: No
[2016-08-23] MEDS: VANCOMYCIN 1 GRAM (PRE-DOCKED) 250 ML IVPB SCH (17:14)
[2016-08-23] MEDS: oxyCODONE HCL 5 MG TABLET PO PRN (21:35)
[2016-08-24] MEDS: oxyCODONE HCL 5 MG TABLET PO PRN ×2 (05:35→21:36)
[2016-08-24] MEDS: HEPARIN NA (PORCINE) 5,000 UNITS/ML 1ML VIAL SQ SCH ×3 (05:37→21:37)
[2016-08-24] MEDS: CEFEPIME 1 GM/100 ML BAG PRE-DOCKED IVPB SCH ×2 (06:02→18:52)
[2016-08-24 07:24] LABS: MCH 34.1 pg (25.7-33.7); MCHC 34.2 g/dl (32.0-35.9); MEAN CELL VOLUME 99.7 fl (80-96); MEAN PLT VOLUME 9.9 fl (7.5-11.1); PLATELET COUNT 121 K/MM3 (134-434); RDW 13.9 % (11.9-15.9)
[2016-08-24 07:52] LABS: ALBUMIN 3.1 g/dl (3.4-5.0); BILIRUBIN,TOTAL 0.5 mg/dL (0.2-1.0); CALCIUM 7.3 mg/dL (8.5-10.1); CREATININE 1.3 mg/dL (0.7-1.3); TOT PROT 5.2 g/dl (6.4-8.2)
--- NOTE | 2016-08-24 08:31 | PN ---
Progress Note (short form) - Note Progress Note: Subjective: The patient was seen and examined at the bedside, he reports feeling weak today. Medrano catheter removed this AM, due to void trial Current Medications Generic Name Dose Route Start Last Admin Trade Name Freq PRN Reason Stop Dose Admin Acetaminophen 650 mg 08/22/16 14:02 Tylenol - PO Q4H PRN FEVER OR PAIN Acetaminophen 325 mg 08/22/16 14:31 Tylenol - PO Q6H PRN FEVER OR PAIN Albuterol Sulfate 1 amp 08/22/16 14:02 Ventolin 0.083% Nebulizer Soln - NEB Q4H PRN SHORT OF BREATH/WHEEZING Alprazolam 0.25 mg 08/22/16 14:30 08/22/16 23:55 Xanax - PO 0.25 mg Q12H PRN Administration Atorvastatin Calcium 10 mg 08/22/16 22:00 08/23/16 21:28 Lipitor - PO 10 mg HS [facility]NA Administration Cefepime HCl 1 gm 08/23/16 07:00 08/24/16 06:02 Maxipime 1gm Ivpb Pre-Docked IVPB 1 gm Q12H [facility] Administration Diltiazem HCl 120 mg 08/23/16 10:00 08/23/16 12:46 Cardizem Cd - PO Not Given DAILY [facility] Docusate Sodium 100 mg 08/22/16 22:00 08/23/16 21:28 Colace - PO 100 mg BID [facility] Administration Duloxetine HCl 30 mg 08/22/16 22:00 08/23/16 21:28 Cymbalta - PO 30 mg BID [facility] Administration Heparin Sodium (Porcine) 5,000 unit 08/22/16 14:30 08/24/16 05:37 Heparin - SQ 5,000 unit TID [facility]NA Administration Hydromorphone HCl 1 mg 08/22/16 10:52 08/23/16 04:39 Dilaudid Injection - IVPUSH 1 mg Q4H PRN Administration PAIN Sodium Chloride 1,000 mls @ 83 mls/hr 08/22/16 14:15 08/23/16 17:17 Normal Saline - IV 83 mls/hr ASDIR SIENA Administration Vancomycin HCl 250 mls @ 200 mls/hr 08/22/16 17:15 08/23/16 17:14 Vancomycin (Pre-Docked) IVPB 200 mls/hr Q24H [facility] Administration Lisinopril 20 mg 08/23/16 10:00 08/23/16 12:46 Prinivil PO Not Given DAILY [facility] Metoprolol Succinate 25 mg 08/23/16 10:00 08/23/16 12:46 Toprol Xl - PO Not Given DAILY [facility] Ondansetron HCl 4 mg 08/22/16 14:02 08/23/16 16:21 Zofran Injection IVPB 4 mg Q6H PRN Administration NAUSEA Oxycodone HCl 5 mg 08/22/16 14:31 08/24/16 05:35 Roxicodone - PO 5 mg Q6H PRN Administration Pantoprazole Sodium 40 mg 08/22/16 22:00 08/23/16 21:28 Protonix - PO 40 mg BID [facility] Administration Tamsulosin HCl 0.4 mg 08/23/16 10:00 08/23/16 10:34 Flomax - PO 0.4 mg DAILY [facility] Administration Trazodone HCl 50 mg 08/22/16 22:00 08/23/16 21:28 Desyrel - PO 50 mg HS SIENA Administration Objective: Vital Signs Period Temp Pulse Resp BP Sys/Suazo Pulse Ox Last 24 Hr 97.8 F-98.7 F 81-97 18-20 99-130/57-73 96-98 Physical Exam: General: NAD, A&Ox3 Lungs: CTA bilaterally Heart: RRR, S1S2 Abd: Soft, non-tender, non-distended. Normoactive bowel sounds Ext: Warm, well-perfused. 2+ DP/PT bilaterally Neuro: CN 2-12 intact : Medrano catheter in place CBCD WBC 8.0 K/mm3 (4.0-10.0) D 08/24/16 06:00 RBC 3.52 M/mm3 (4.00-5.60) L 08/24/16 06:00 Hgb 12.0 GM/dL (11.7-16.9) D 08/24/16 06:00 Hct 35.1 % (35.4-49) L 08/24/16 06:00 MCV 99.7 fl (80-96) H 08/24/16 06:00 MCHC 34.2 g/dl (32.0-35.9) 08/24/16 06:00 RDW 13.9 % (11.9-15.9) 08/24/16 06:00 Plt Count 121 K/MM3 (134-434) L 08/24/16 06:00 MPV 9.9 fl (7.5-11.1) 08/24/16 06:00 CMP Sodium 141 mmol/L (136-145) 08/24/16 06:00 Potassium 4.0 mmol/L (3.5-5.1) 08/24/16 06:00 Chloride 108 mmol/L (98-107) H 08/24/16 06:00 Carbon Dioxide 25 mmol/L (21-32) 08/24/16 06:00 Anion Gap 8 (8-16) 08/24/16 06:00 BUN 16 mg/dL (7-18) 08/24/16 06:00 Creatinine 1.3 mg/dL (0.7-1.3) 08/24/16 06:00 Creat Clearance w eGFR 54.11 (>60) 08/24/16 06:00 Random Glucose 101 mg/dL (74-106) 08/24/16 06:00 Calcium 7.3 mg/dL (8.5-10.1) L 08/24/16 06:00 Total Bilirubin 0.5 mg/dL (0.2-1.0) D 08/24/16 06:00 AST 12 U/L (15-37) L D 08/24/16 06:00 ALT 23 U/L (12-78) D 08/24/16 06:00 Alkaline Phosphatase 45 U/L (45-117) D 08/24/16 06:00 Total Protein 5.2 g/dl (6.4-8.2) L D 08/24/16 06:00 Albumin 3.1 g/dl (3.4-5.0) L D 08/24/16 06:00 Microbiology 08/22/16 13:50 Blood - Peripheral Venous Blood Culture - Preliminary NO GROWTH OBTAINED AFTER 24 HOURS, INCUBATION TO CONTINUE FOR 4 DAYS. 08/22/16 13:30 Blood - Peripheral Venous Blood Culture - Preliminary NO GROWTH OBTAINED AFTER 24 HOURS, INCUBATION TO CONTINUE FOR 4 DAYS. 08/22/16 13:18 Urine - Urine - Catheterized Urine Culture - Preliminary Staphylococcus Coagulase Neg 08/22/16 08:41 Nasopharyngeal Swab Influenza Types A,B Antigen (SABA) - Final 08/22/16 08:41 Nasopharyngeal Swab - Final Assessment: This is a 71 year old male with PMHx of HTN, hyperlipidemia, paroxysmal a.fib, pulmonary htn, COPD, depression, anxiety, CKD stage 3, chronic pain who presented to the ED with worsening weakness, chills, pain and was found to have a pneumonia. Plan: 1) ID: Severe sepsis 2/2 pneumonia - Lactic acidosis resolved - Influenza A&B negative - Respiratory virus panel pending - CTAP with probable superimposed infiltrates in the left lung base - Urine culture with prelim staph coag negative (contaminant per ID) - Continue empiric cefepime and vancomycin - WBC remain elevated - Afebrile - Appreciate ID consult 2) : acute urinary retention - Medrano catheter removed this AM, due to void trial - BPH, continue Flomax CKD stage 3 - BUN/Cr wnl 3) Cardiology: Paroxysmal a.fib - Continue Toprol XL for rate control - Continue Cardizem - Patient is refusing anticoagulation for paf HTN - As above - Continue Lisinopril Hyperlipidemia - Continue Lipitor 4) Psych: Depression, anxiety - Continue Cymbalta - Continue Trazodone - Continue Xanax 5) Pulmonary: COPD - Stable - Albuterol nebs prn 6) F/E/N: - Regular diet - Monitor electrolytes 7) Prophylaxis: - Heparin 5,000u sq tid - PT: walked 60 ft yesterday, continue daily PT 8) Dispo: - Requires continued inpatient care CODE STATUS: FULL CODE Visit type - Emergency Visit Emergency Visit: Yes ED Registration Date: 08/22/16 Care time: The patient presented to the Emergency Department on the above date and was hospitalized for further evaluation of their emergent condition. - New Patient This patient is new to me today: No - Critical Care Critical Care patient: No
[2016-08-24] MEDS: TAMSULOSIN HCL 0.4 MG CAP.ER.24H (FP) PO SCH (10:38)
[2016-08-24] MEDS: LISINOPRIL 20 MG TABLET (FP) PO SCH ×2 (10:38→10:45)
[2016-08-24] MEDS: DULoxetine HCL 30 MG CAPSULE.DR (FP) PO SCH ×2 (10:38→21:36)
[2016-08-24] MEDS: PANTOPRAZOLE 40 MG TABLET (FP) PO SCH ×2 (10:38→21:37)
[2016-08-24] MEDS: METOPROLOL SUCCINATE 25 MG TAB.SR.24H (FP) PO SCH ×2 (10:39→10:45)
[2016-08-24] MEDS: DOCUSATE SODIUM 100 MG CAPSULE (FP) PO SCH ×3 (10:39→21:33)
--- NOTE | 2016-08-24 11:06 | PN ---
Progress Note, Physician History of Present Illness: C/O generalized weakness, dizziness No focal complaint Afebrile WBC improved Urine c/s SCN (contaminant) - Current Medication List Current Medications: Active Medications Acetaminophen (Tylenol -) 650 mg PO Q4H PRN PRN Reason: FEVER OR PAIN Acetaminophen (Tylenol -) 325 mg PO Q6H PRN PRN Reason: FEVER OR PAIN Albuterol Sulfate (Ventolin 0.083% Nebulizer Soln -) 1 amp NEB Q4H PRN PRN Reason: SHORT OF BREATH/WHEEZING Alprazolam (Xanax -) 0.25 mg PO Q12H PRN Last Admin: 08/22/16 23:55 Dose: 0.25 mg Atorvastatin Calcium (Lipitor -) 10 mg PO HS [facility] Last Admin: 08/23/16 21:28 Dose: 10 mg Cefepime HCl (Maxipime 1gm Ivpb Pre-Docked) 1 gm IVPB Q12H [facility] Last Admin: 08/24/16 06:02 Dose: 1 gm Diltiazem HCl (Cardizem Cd -) 120 mg PO DAILY [facility] Last Admin: 08/24/16 10:43 Dose: Not Given Docusate Sodium (Colace -) 100 mg PO BID [facility] Last Admin: 08/24/16 10:45 Dose: Not Given Duloxetine HCl (Cymbalta -) 30 mg PO BID [facility] Last Admin: 08/24/16 10:38 Dose: 30 mg Heparin Sodium (Porcine) (Heparin -) 5,000 unit SQ TID [facility] Last Admin: 08/24/16 05:37 Dose: 5,000 unit Hydromorphone HCl (Dilaudid Injection -) 1 mg IVPUSH Q4H PRN PRN Reason: PAIN Last Admin: 08/23/16 04:39 Dose: 1 mg Sodium Chloride (Normal Saline -) 1,000 mls @ 83 mls/hr IV ASDIR [facility] Last Admin: 08/23/16 17:17 Dose: 83 mls/hr Vancomycin HCl (Vancomycin (Pre-Docked)) 250 mls @ 200 mls/hr IVPB Q24H [facility] Last Admin: 08/23/16 17:14 Dose: 200 mls/hr Lisinopril (Prinivil) 20 mg PO DAILY [facility] Last Admin: 08/24/16 10:45 Dose: Not Given Metoprolol Succinate (Toprol Xl -) 25 mg PO DAILY [facility] Last Admin: 08/24/16 10:45 Dose: Not Given Ondansetron HCl (Zofran Injection) 4 mg IVPB Q6H PRN PRN Reason: NAUSEA Last Admin: 08/23/16 16:21 Dose: 4 mg Oxycodone HCl (Roxicodone -) 5 mg PO Q6H PRN Last Admin: 08/24/16 05:35 Dose: 5 mg Pantoprazole Sodium (Protonix -) 40 mg PO BID [facility] Last Admin: 08/24/16 10:38 Dose: 40 mg Tamsulosin HCl (Flomax -) 0.4 mg PO DAILY [facility] Last Admin: 08/24/16 10:38 Dose: 0.4 mg Trazodone HCl (Desyrel -) 50 mg PO HS [facility] Last Admin: 08/23/16 21:28 Dose: 50 mg - Objective Vital Signs: Vital Signs Temperature 98.3 F 08/24/16 06:00 Pulse Rate 81 08/24/16 06:00 Respiratory Rate 20 08/24/16 06:00 Blood Pressure 128/72 08/24/16 06:00 O2 Sat by Pulse Oximetry (%) 98 08/23/16 20:27 Constitutional: Yes: No Distress Eyes: Yes: Conjunctiva Clear Cardiovascular: Yes: Regular Rate and Rhythm, S1, S2 Respiratory: Yes: CTA Bilaterally Gastrointestinal: Yes: Normal Bowel Sounds, Soft. No: Tenderness Edema: No Labs: CBC, BMP 08/24/16 06:00 08/24/16 06:00 Assessment/Plan LLL pneumonia Possible sepsis secondary to pneumonia PCN allergy + urine c/s(contaminant) Continue empiric cefepime D/C libradoo
[2016-08-24] MEDS: SODIUM CHLORIDE 1,000 ML IV SCH (16:41)
[2016-08-24] MEDS: ATORVASTATIN CA 10 MG TABLET (FP) PO SCH (21:37)
[2016-08-24] MEDS: traZODone HCL 50 MG TABLET (FP) PO SCH (21:37)
[2016-08-25] MEDS: oxyCODONE HCL 5 MG TABLET PO PRN (05:22)
[2016-08-25] MEDS: HEPARIN NA (PORCINE) 5,000 UNITS/ML 1ML VIAL SQ SCH (05:24)
[2016-08-25 05:34] VITALS: PULSE 75
[2016-08-25] MEDS: SODIUM CHLORIDE 1,000 ML IV SCH (06:04)
[2016-08-25] MEDS: CEFEPIME 1 GM/100 ML BAG PRE-DOCKED IVPB SCH (06:24)
[2016-08-25 08:48] LABS: MCH 34.1 pg (25.7-33.7); MCHC 34.2 g/dl (32.0-35.9); MEAN CELL VOLUME 99.7 fl (80-96); MEAN PLT VOLUME 9.6 fl (7.5-11.1); PLATELET COUNT 127 K/MM3 (134-434); RDW 13.7 % (11.9-15.9); WHITE BLOOD COUNT 6.8 K/mm3 (4.0-10.0)
[2016-08-25] MEDS: DOCUSATE SODIUM 100 MG CAPSULE (FP) PO SCH (12:21)
[2016-08-25] MEDS: METOPROLOL SUCCINATE 25 MG TAB.SR.24H (FP) PO SCH (12:21)
[2016-08-25] MEDS: PANTOPRAZOLE 40 MG TABLET (FP) PO SCH (12:21)
[2016-08-25] MEDS: LISINOPRIL 20 MG TABLET (FP) PO SCH (12:21)
[2016-08-25] MEDS: DULoxetine HCL 30 MG CAPSULE.DR (FP) PO SCH (12:21)
[2016-08-25] MEDS: TAMSULOSIN HCL 0.4 MG CAP.ER.24H (FP) PO SCH (12:21)
--- NOTE | 2016-08-25 14:33 | DS ---
[id number] Rate 19 08/25/16 05:33 Blood Pressure 131/74 08/25/16 05:33 O2 Sat by Pulse Oximetry (%) 96 08/24/16 21:00 Findings/Remarks: Physical Exam: General: NAD, A&Ox3 Lungs: CTA bilaterally Heart: RRR, S1S2 Abd: Soft, non-tender, non-distended. Normoactive bowel sounds Ext: Warm, well-perfused. 2+ DP/PT bilaterally Neuro: CN 2-12 intact : Medrano catheter in place Labs: CBC, BMP 08/25/16 07:45 08/24/16 06:00 Discharge Summary Reason For Visit: LEFT LOWER LOVE PNEUMONIA/ LEUKOCYTOSIS Current Active Problems Abdominal pain (Acute) Acute urinary retention (Acute) Hydronephrosis (Acute) Left lower lobe pneumonia (Acute) Leukocytosis (Acute) Afib (Chronic) Anxiety and depression (Chronic) Appetite loss (Chronic) Back pain (Chronic) CKD (chronic kidney disease) stage 3, GFR 30-59 ml/min (Chronic) Carotid artery stenosis (Chronic) Chronic left shoulder pain (Chronic) Chronic low back pain (Chronic) Chronic pain (Chronic) Depression (Chronic) HTN (hypertension) (Chronic) Hyperlipidemia (Chronic) LBBB (left bundle branch block) (Chronic) Osteoarthritis (Chronic) Osteoporosis (Chronic) Polysubstance (excluding opioids) dependence (Chronic) Radicular low back pain (Chronic) SVT (supraventricular tachycardia) (Chronic) Thoracic or lumbosacral neuritis or radiculitis (Chronic) Weakness (Chronic) Hospital Course: This is a 71 year old male with PMHx of HTN, hyperlipidemia, paroxysmal a.fib, pulmonary htn, COPD, depression, anxiety, CKD stage 3, chronic pain who presented to the ED with worsening weakness, chills, pain and was found to have a pneumonia. Plan: 1) ID: Severe sepsis 2/2 pneumonia - Lactic acidosis resolved - Influenza A&B negative - Respiratory virus panel pending - CTAP with probable superimposed infiltrates in the left lung base - Urine culture with prelim staph coag negative (contaminant per ID) - Discharge on Levaquin for total of 7 days - WBC remain elevated - Afebrile - Appreciate ID consult 2) : acute urinary retention - Medrano catheter removed this AM, due to void trial - BPH, continue Flomax CKD stage 3 - BUN/Cr wnl 3) Cardiology: Paroxysmal a.fib - Continue Toprol XL for rate control - Continue Cardizem - Patient is refusing anticoagulation for paf HTN - As above - Continue Lisinopril Hyperlipidemia - Continue Lipitor 4) Psych: Depression, anxiety - Continue Cymbalta - Continue Trazodone - Continue Xanax 5) Pulmonary: COPD - Stable - Albuterol nebs prn Discussed with rico Underwood d/c on Levaquin for total abx course of 7 days Condition: Improved - Instructions Diet, Activity, Other Instructions: Please return to the ED with new, persistent, or worsening symptoms. Please follow-up with providers as indicated. Please complete your full course of antibiotics as prescribed. Referrals: Armand Burden PSYD [Psychologist] - (Please follow-up with a psychologist within 1 week ) Wili Quiroz MD [Staff Physician] - 1 Week (Please follow-up with your pcp within 1 week to have your kidney function checked. ) Disposition: VNS/HOME HEALTH CARE - Home Medications Comprehensive Discharge Medication List: Ambulatory Orders Atorvastatin Ca [Lipitor] 10 mg PO HS #30 tablet 11/23/14 Lisinopril [Prinivil] 20 mg PO BID 06/24/15 Trazodone HCl [Desyrel -] 50 mg PO HS PRN 07/22/15 Pantoprazole Sodium [Protonix -] 40 mg PO BID #60 tablet.ec 07/26/15 Duloxetine HCl [Cymbalta -] 30 mg PO BID #60 capsule. 03/29/16 Metoprolol Succinate [Toprol XL -] 25 mg PO DAILY #30 tab.sr.24h 03/29/16 Alprazolam [Xanax] 0.25 mg PO BID 04/12/16 Tamsulosin HCl [Flomax -] 0.4 mg PO DAILY #30 cap.er.24h 05/24/16 Diltiazem Cd [Cardizem Cd -] 120 mg PO DAILY #30 cap.cd.24h 05/29/16 Docusate Sodium [Colace -] 100 mg PO BID #60 capsule 06/07/16 Alendronate Na [Fosamax (Weekly)] 70 mg PO WEEKLY 08/22/16 Oxycodone HCl/Acetaminophen [Percocet 5-325 mg Tablet] 1 - 2 tab PO Q4H Levofloxacin [Levaquin] 500 mg PO DAILY #3 tablet 08/25/16 This patient is new to me today: No Emergency Visit: Yes ED Registration Date: 08/22/16 Care time: The patient presented to the Emergency Department on the above date and was hospitalized for further evaluation of their emergent condition. Critical Care patient: No - Discharge Referral Referred to [facility] Yes Physician Referral: Wili Solares MD ([facility])
[2016-08-25 14:41] VITALS: BP 109/63; TEMP 98.2
== END 2016-08-25 15:17 | disposition home health service (06) | DRG 871 ==
LOC: JER 08:15 → JERBED 17:50 → J7W 08-23 01:44
PROVIDERS: ADMIT Internal Medicine; ATTEND Registered Nurse
DX: A41.9 Sepsis, unspecified organism (principal); J18.9 Pneumonia, unspecified organism; E87.2 Acidosis; R33.9 Retention of urine, unspecified; I12.9 Hypertensive chronic kidney disease with stage 1 through stage 4 chronic kidney disease, or unspecified chronic kidney disease; N18.3 Chronic kidney disease, stage 3 (moderate); E78.5 Hyperlipidemia, unspecified; I48.0 Paroxysmal atrial fibrillation; F32.9 Major depressive disorder, single episode, unspecified; F41.9 Anxiety disorder, unspecified; J44.9 Chronic obstructive pulmonary disease, unspecified; Z88.0 Allergy status to penicillin; M81.0 Age-related osteoporosis without current pathological fracture; Z87.891 Personal history of nicotine dependence; R65.20 Severe sepsis without septic shock
CPT/HCPCS: 36415; 71010-TC; 74176-TC; 80048; 80053; 81003; 81015; 82150; 83605; 83735; 85025; 85027; 87040; 87086; 87186; 87254; 87804; 93005; 93010; 97116-GP; 97161-GP; 99285-25; J1644

== ENCOUNTER 2016-09-23 13:49 | Observation (INO) | payer OTHER, BC ==
--- NOTE | 2016-09-23 14:15 | PDOC ---
History of Present Illness - General History Source: Patient Exam Limitations: No Limitations - History of Present Illness Initial Comments: 09/23/16 14:59 Patient is a 71 year old male with PMH of HTN, HLD, Paroxysmal AFib, Known LBBB , Diverticulitis, pancreatitis, COPD, Kidney stones (s/p R UVJ Stent) & depression/anxiety who presents to ED with abdominal pain, generalized weakness and SOB. Patient reports abdominal pain for few days and states that he was constipated but took laxative which is causing him to have small bowel movements. He denies any diarrhea. He notes that he is feeling more weak than usua. He also reports difficulty breathing for 2 days and received a breathing treatment by EMS. Allergies: pregabalin, pravastatin sodium, lactose, morphine, penicillins. Urologist: Dr. Josiah Valle <Amy Piper - Last Filed: 09/23/16 18:09> <Rahul Hawk - Last Filed: 09/23/16 18:12> - General Chief Complaint: Shortness of Breath Stated Complaint: ABDOMINAL PAIN/SOB Time Seen by Provider: 09/23/16 14:14 Past History <Amy Piper - Last Filed: 09/23/16 18:09> - Past Medical History Anemia: No Asthma: No Cancer: No Cardiac Disorders: Yes (HTN, HLD, Paroxysmal AFib) CVA: No COPD: Yes CHF: No Dementia: No Diabetes: No GI Disorders: Yes (Diverticulitis, IBS, hemorrhoids) Disorders: Yes (Englarged Prostate) HTN: Yes Hypercholesterolemia: Yes Kidney Stones: Yes (s/p Right UVJ Stent placement) Liver Disease: No Psychiatric Problems: Yes (Depression/Anxiety) Suicide Attempt (Hx): No Seizures: No Thyroid Disease: No - Surgical History Abdominal Surgery: Yes (Hernia Repair) Appendectomy: No Cardiac Surgery: No Cholecystectomy: No GI Surgery: Yes (HEMORRHOIDS/ANAL ULCER, RIGHT UVJ STENT) Lung Surgery: No Neurologic Surgery: No Orthopedic Surgery: Yes (Lumbar Back Surgery x2) - Immunization History Immunization Up to Date: Yes - Psycho/Social/Smoking Cessation Hx Anxiety: No Suicidal Ideation: No Smoking Status: No Smoking History: Former smoker Years of Tobacco Use: 20 Have you smoked in the past 12 months: No Number of Cigarettes Smoked Daily: 0 If you are a former smoker, when did you quit?: over 25 years ago Information on smoking cessation initiated: No 'Breaking Loose' booklet given: 09/08/13 Hx Alcohol Use: No Drug/Substance Use Hx: No Substance Use Type: None Hx Substance Use Treatment: No <Rahul Hawk - Last Filed: 09/23/16 18:12> - Past Medical History Allergies/Adverse Reactions: Allergies Allergy/AdvReac Type Severity Reaction Status Date / Time pregabalin [From Lyrica] Allergy Mild Verified 09/23/16 14:10 pravastatin sodium Allergy Unknown Verified 09/23/16 14:10 [From Pravachol] lactose Allergy Nausea Verified 09/23/16 14:10 morphine Allergy Verified 09/23/16 14:10 Penicillins Allergy Verified 09/23/16 14:10 Home Medications: Ambulatory Orders Atorvastatin Ca [Lipitor] 10 mg PO HS #30 tablet 11/23/14 Lisinopril [Prinivil] 20 mg PO BID 06/24/15 Trazodone HCl [Desyrel -] 50 mg PO HS PRN 07/22/15 Pantoprazole Sodium [Protonix -] 40 mg PO BID #60 tablet.ec 07/26/15 Duloxetine HCl [Cymbalta -] 30 mg PO BID #60 capsule.dr 03/29/16 Metoprolol Succinate [Toprol XL -] 25 mg PO DAILY #30 tab.sr.24h 03/29/16 Alprazolam [Xanax] 0.25 mg PO BID 04/12/16 Tamsulosin HCl [Flomax -] 0.4 mg PO DAILY #30 cap.er.24h 05/24/16 Diltiazem Cd [Cardizem Cd -] 120 mg PO DAILY #30 cap.cd.24h 05/29/16 Docusate Sodium [Colace -] 100 mg PO BID #60 capsule 06/07/16 Alendronate Na [Fosamax (Weekly)] 70 mg PO WEEKLY 08/22/16 Oxycodone HCl/Acetaminophen [Percocet 5-325 mg Tablet] 1 - 2 tab PO Q4H Levofloxacin [Levaquin] 500 mg PO DAILY #3 tablet 08/25/16 Review of Systems - Review of Systems Able to Perform ROS?: Yes Comments:: 09/23/16 15:02 GENERAL/CONSTITUTIONAL: +generalized weakness. No fever or chills. HEAD, EYES, EARS, NOSE AND THROAT: No change in vision. No ear pain or discharge. No sore throat. CARDIOVASCULAR: No chest pain. RESPIRATORY: +SOB. No cough, wheezing, or hemoptysis. GASTROINTESTINAL: +abdominal pain. No nausea, vomiting, diarrhea or constipation. GENITOURINARY: No dysuria, frequency, or change in urination. MUSCULOSKELETAL: No joint or muscle swelling or pain. No neck or back pain. SKIN: No rash NEUROLOGIC: No headache, vertigo, loss of consciousness, or change in strength/ sensation. ENDOCRINE: No increased thirst. No abnormal weight change. HEMATOLOGIC/LYMPHATIC: No anemia, easy bleeding, or history of blood clots. ALLERGIC/IMMUNOLOGIC: No hives or skin allergy. <Amy Piper - Last Filed: 09/23/16 18:09> *Physical Exam - Vital Signs Last Vital Signs Temp Pulse Resp BP Pulse Ox 99.3 F 56 L 18 125/49 98 09/23/16 13:58 09/23/16 13:58 09/23/16 13:58 09/23/16 13:58 09/23/16 14:32 - Physical Exam Comments: 09/23/16 15:01 GENERAL: Awake, alert, and fully oriented, in no acute distress HEAD: No signs of trauma EYES: PERRLA, EOMI, sclera anicteric, conjunctiva clear ENT: Auricles normal inspection, hearing grossly normal, nares patent, oropharynx clear without exudates. Moist mucosa NECK: Normal ROM, supple, no lymphadenopathy, JVD, or masses LUNGS: Breath sounds equal, clear to auscultation bilaterally. No wheezes, and no crackles HEART: Regular rate and rhythm, normal S1 and S2, no murmurs, rubs or gallops ABDOMEN: +Diffuse abdominal tenderness, more tender on left than right, + Decreased bowel sounds. Soft. No guarding, no rebound. No masses EXTREMITIES: Normal range of motion, no edema. No clubbing or cyanosis. No cords, erythema, or tenderness NEUROLOGICAL: Cranial nerves II through XII grossly intact. Normal speech. SKIN: Warm, Dry, normal turgor, no rashes or lesions noted. <Amy Piper - Last Filed: 09/23/16 18:09> - Vital Signs Last Vital Signs Temp Pulse Resp BP Pulse Ox 99.3 F 56 L 18 125/49 100 09/23/16 13:58 09/23/16 13:58 09/23/16 13:58 09/23/16 13:58 09/23/16 13:58 <Rahul Hawk - Last Filed: 09/23/16 18:12> Heart Score/ECG Review #1 09/23/16 15:08 ECG was reviewed by Dr. Hawk Impression: Sinus rhythm with frequent premature ventricular complexes Left acis deviation Left bundle branch Vent rate 79 <CristopherAmy talavera - Last Filed: 09/23/16 18:09> ED Treatment Course - LABORATORY CBC & Chemistry Diagram: 09/23/16 14:20 09/23/16 14:20 - ADDITIONAL ORDERS Additional order review: Laboratory Results 09/23/16 14:20 Urine Color Yellow Urine Appearance Clear Urine pH 5.0 Ur Specific [place] 1.020 Urine Protein Negative Urine Glucose (UA) Negative Urine Ketones Negative Urine Blood Negative Urine Nitrite Negative Urine Bilirubin Negative Urine Urobilinogen Negative Ur Leukocyte Esterase 2+ H D Urine RBC 2 Urine WBC 27 Urine Yeast Rare - RADIOLOGY Radiology Studies Ordered: 09/23/16 17:55 EXAM#: TYPE/EXAM: RESULT: CT/ABDOMEN PELVIS CT W/O CONTR Rule out diverticulitis. CT scan of the abdomen pelvis following oral contrast administration only Coronal and sagittal reformatted images were obtained Compared to prior CT scan of the abdomen pelvis dated 08/22/2016 There is interval better aeration of the lung base with residual mild atelectatic and bronchiectatic changes in the left lower lobe as well as mild pleural thickening, posteriorly. The heart is within normal limits in size. Evaluation of the liver, spleen, pancreas, gallbladder and right adrenal gland appear unremarkable. A right renal lower pole cyst and ectatic left kidney with a slightly lobulated contour and small partially exophytic lower pole cysts are again seen without interval change. There is no evidence of hydronephrosis or hydroureter, bilaterally. Partially distended stomach significantly limiting evaluation of its wall. There is no evidence of small bowel obstruction or enlarged retroperitoneal lymph nodes. No free air or free fluid in the abdomen pelvis. Terminal ileum and appendix appear unremarkable. Extensive diverticulosis coli again seen without evidence of acute diverticulitis. Partially distended urinary bladder limiting evaluation of its wall that appears to be thickened. Enlarged prostate gland with benign- appearing calcifications again seen. Perirectal and pericecal fat is clear Multilevel degenerative disc disease and minimal retrolisthesis of L3 over L4, grade 1 again noted. Impression: Interval better evaluation of the included lower lung with residual mild atelectatic and bronchiectatic changes in the left lower lobe. Previously described dilatation of the right renal pelvis and right ureter are no longer seen. A right and smaller left renal cyst as well as ectatic left kidney again noted. Extensive diverticulosis coli again noted without evidence of acute diverticulitis. No free air or free fluid in the abdomen and pelvis. <Amy Piper - Last Filed: 09/23/16 18:09> - LABORATORY CBC & Chemistry Diagram: 09/23/16 14:20 09/23/16 14:20 <Rahul Hawk - Last Filed: 09/23/16 18:12> Medical Decision Making - Medical Decision Making 09/23/16 15:00 71 year old male with PMH of HTN, HLD, Paroxysmal AFib, Known LBBB, Diverticulitis, pancreatitis, COPD, Kidney stones (s/p R UVJ Stent) & depression /anxiety who presents to ED with abdominal pain, generalized weakness and SOB. Will order CT to r/o diverticulitis. Will order medication and labs. Patient will be reassessed after the results are back. 09/23/16 18:09 A call was placed to Dr. Rodriguez at her office. Case discussed. <Amy Piper - Last Filed: 09/23/16 18:09> *DC/Admit/Observation/Transfer - Attestations Scribe Attestion: 09/23/16 15:01 Documentation prepared by YAZAN Irizarry, acting as medical assisting program director for Rahul Hawk MD/. <Amy Piper - Last Filed: 09/23/16 18:09> - Discharge Dispostion Admit: Yes - Attestations Physician Attestion: 09/23/16 14:15 I, Dr. Rahul Hawk, attest that this document has been prepared under my direction and personally reviewed by me in its entirety. I further attest, that it accurately reflects all work, treatment, procedures and medical decision -making performed by me. <Rahul Hawk - Last Filed: 09/23/16 18:12> Diagnosis at time of Disposition: Urinary tract infection Qualifiers: Urinary tract infection type: site unspecified Hematuria presence: without hematuria Qualified Code(s): N39.0 - Urinary tract infection, site not specified Prostatitis Qualifiers: Prostatitis type: acute Qualified Code(s): N41.0 - Acute prostatitis - Discharge Dispostion Condition at time of disposition: Good
[2016-09-23] MEDS ORDERED: SODIUM CHLORIDE 1,000 ML IV STA (14:19)
[2016-09-23 14:38] LABS: BASOPHIL 0.9 % (0-2.0); EOSINOPHIL 4.2 % (0-4.5); MCH 33.2 pg (25.7-33.7); MCHC 33.2 g/dl (32.0-35.9); MEAN CELL VOLUME 99.7 fl (80-96); MEAN PLT VOLUME 9.9 fl (7.5-11.1); PLATELET COUNT 140 K/MM3 (134-434); RDW 14.1 % (11.9-15.9); WHITE BLOOD COUNT 8.5 K/mm3 (4.0-10.0)
[2016-09-23 14:39] LABS: URINE APPEARANCE CLEAR; URINE BILIRUBIN NEGATIVE (NEGATIVE); URINE BLOOD NEGATIVE (NEGATIVE); URINE COLOR YELLOW; URINE GLUCOSE (UA) NEGATIVE (NEGATIVE); URINE KETONE NEGATIVE (NEGATIVE); URINE NITRITE NEGATIVE (NEGATIVE); URINE PROTEIN NEGATIVE (NEGATIVE); URINE UROBILINOGEN NEGATIVE E.U./dl (0.2-1.0)
[2016-09-23 14:42] LABS: URINE LEUK ESTERASE 2+ (NEGATIVE)
[2016-09-23 14:46] LABS: URINE RBC 2 /hpf (0-3); URINE WBC 27 /hpf (3-5); YEAST RARE
[2016-09-23 15:04] LABS: ALBUMIN 3.8 g/dl (3.4-5.0); BILIRUBIN,TOTAL 0.3 mg/dL (0.2-1.0); CALCIUM 8.3 mg/dL (8.5-10.1); CREATININE 1.5 mg/dL (0.7-1.3); TOT PROT 6.1 g/dl (6.4-8.2)
[2016-09-23 15:06] LABS: INR 0.96 (0.82-1.09); PROTHROMBIN TIME (PATIENT) 10.5 SEC (9.98-11.88)
[2016-09-23] MEDS ORDERED: CEFTRIAXONE 2 GM in DEXTROSE 5%-WATER - 100 ML IVPB ONE (15:22)
[2016-09-23] MEDS ORDERED: CEFTRIAXONE 50 ML ONE ×2 (15:23→16:15)
[2016-09-23] MEDS ORDERED: OXYCODONE/APAP 5/325MG COMBO TABLET PO ONE (18:11)
[2016-09-23] MEDS ORDERED: ONDANSETRON *ODT* 4 MG TABLET SL ONE (18:15)
[2016-09-23] MEDS ORDERED: ONDANSETRON *ODT* 4 MG TABLET ONE (18:20)
[2016-09-23] MEDS ORDERED: OXYCODONE/APAP 5/325MG COMBO TABLET ONE (18:20)
[2016-09-23] MEDS ORDERED: ALBUTEROL SO4 0.083% IH SOL 2.5 MG/3 ML VIAL.NEB. NEB PRN (21:32)
--- NOTE | 2016-09-23 21:32 | HP ---
Admitting History and Physical - Primary Care Physician PCP: Sanjay Rodriguez - Admission Chief Complaint: abdominal pain History of Present Illness: Patient is a 71 year old male with PMH of HTN, HLD, Paroxysmal AFib, Known LBBB , Diverticulitis, pancreatitis, COPD, Kidney stones (s/p R UVJ Stent) & depression/anxiety who presents to ED with abdominal pain, generalized weakness and SOB. Patient reports abdominal pain for few days and states that he was constipated but took laxative which is causing him to have small bowel movements. Allergies: pregabalin, pravastatin sodium, lactose, morphine, penicillins. Urologist: Dr. 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 stress test in 01/14 - normal (pt reports recent one ,about 14 montsh ago,at [facility] -. normal)) Cardiovascular: Yes: HTN, Hyperlipdemia, Other (atypical chest pain in the past with neg stress test. Hx of WCT in 01/16 -. thought to be SVT at pt has underlying LBBB) Pulmonary: Yes: COPD Gastrointestinal: Yes: Constipation, Hiatal Hernia, Irritable Bowel Disease Renal/: Yes: Renal Inusuff, BPH, Renal Calculi (Patient says that he has kidney stone, ? 6 cm in one kidney) Heme/Onc: Yes: B12 Deficiency Infectious Disease: Yes: Other (?hx "shingles") Psych: Yes: Anxiety, Depression Musculoskeletal: Yes: Chronic low back pain, Osteoarthritis, Other (Lower extremity ulcerations) - Past Surgical History Past Surgical History: Yes: Hernia Repair, Laminectomy (X 2 -> "failed" per patient) - Smoking History Smoking history: Former smoker Have you smoked in the past 12 months: No Aproximately how many cigarettes per day: 0 If you are a former smoker, when did you quit?: over 25 years ago - Alcohol/Substance Use Hx Alcohol Use: No History of Substance Use: reports: None - Social History 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 Travel: No Home Medications - Allergies Allergies/Adverse Reactions: Allergies Allergy/AdvReac Type Severity Reaction Status Date / Time pregabalin [From Lyrica] Allergy Mild Verified 09/23/16 14:10 pravastatin sodium Allergy Unknown Verified 09/23/16 14:10 [From Pravachol] lactose Allergy Nausea Verified 09/23/16 14:10 morphine Allergy Verified 09/23/16 14:10 Penicillins Allergy Verified 09/23/16 14:10 - Home Medications Home Medications: Ambulatory Orders Atorvastatin Ca [Lipitor] 10 mg PO HS #30 tablet 11/23/14 Lisinopril [Prinivil] 20 mg PO BID 06/24/15 Trazodone HCl [Desyrel -] 50 mg PO HS PRN 07/22/15 Pantoprazole Sodium [Protonix -] 40 mg PO BID #60 tablet.ec 07/26/15 Duloxetine HCl [Cymbalta -] 30 mg PO BID #60 capsule.dr 03/29/16 Metoprolol Succinate [Toprol XL -] 25 mg PO DAILY #30 tab.sr.24h 03/29/16 Alprazolam [Xanax] 0.25 mg PO BID 04/12/16 Tamsulosin HCl [Flomax -] 0.4 mg PO DAILY #30 cap.er.24h 05/24/16 Diltiazem Cd [Cardizem Cd -] 120 mg PO DAILY #30 cap.cd.24h 05/29/16 Docusate Sodium [Colace -] 100 mg PO BID #60 capsule 06/07/16 Alendronate Na [Fosamax (Weekly)] 70 mg PO WEEKLY 08/22/16 Oxycodone HCl/Acetaminophen [Percocet 5-325 mg Tablet] 1 - 2 tab PO Q4H Levofloxacin [Levaquin] 500 mg PO DAILY #3 tablet 08/25/16 Family Disease History - Family Disease History Family Disease History: CA: Father (lung ), Mother (gall bladder ) Physical Examination Vital Signs: Vital Signs Temperature 98.3 F 09/23/16 20:47 Pulse Rate 87 09/23/16 20:47 Respiratory Rate 20 09/23/16 20:47 Blood Pressure 140/80 09/23/16 20:47 O2 Sat by Pulse Oximetry (%) 98 09/23/16 21:00 Constitutional: Yes: No Distress HENT: Yes: Atraumatic Neck: Yes: Supple Cardiovascular: Yes: Regular Rate and Rhythm Respiratory: Yes: CTA Bilaterally Gastrointestinal: Yes: Normal Bowel Sounds Extremities: Yes: WNL Neurological: Yes: Alert, Oriented Problem List - Problems (1) Prostatitis Assessment/Plan: IV ABX UCX UROLOGY CONSULT Code(s): N41.9 - INFLAMMATORY DISEASE OF PROSTATE, UNSPECIFIED Qualifiers: Prostatitis type: acute Qualified Code(s): N41.0 - Acute prostatitis (2) Urinary tract infection Assessment/Plan: ON ABX Code(s): N39.0 - URINARY TRACT INFECTION, SITE NOT SPECIFIED Qualifiers: Urinary tract infection type: site unspecified Hematuria presence: without hematuria Qualified Code(s): N39.0 - Urinary tract infection, site not specified (3) HTN (hypertension) Assessment/Plan: ON MEDICATIONS STABLE Code(s): I10 - ESSENTIAL (PRIMARY) HYPERTENSION Qualifiers: Hypertension type: essential hypertension Qualified Code(s): I10 - Essential (primary) hypertension (4) Hyperlipidemia Assessment/Plan: STABLE ON MEDS Code(s): E78.5 - HYPERLIPIDEMIA, UNSPECIFIED Qualifiers: Hyperlipidemia type: unspecified Qualified Code(s): E78.5 - Hyperlipidemia, unspecified (5) Osteoarthritis Code(s): M19.90 - UNSPECIFIED OSTEOARTHRITIS, UNSPECIFIED SITE Qualifiers: Osteoarthritis location: multiple joints Osteoarthritis type: primary Qualified Code(s): M15.0 - Primary generalized (osteo)arthritis (6) Constipation Assessment/Plan: ON BOWEL REGIMEN Code(s): K59.00 - CONSTIPATION, UNSPECIFIED Assessment/Plan Laboratory Tests 09/23/16 09/23/16 09/23/16 14:20 14:20 14:20 WBC 8.5 RBC 4.00 Hgb 13.3 Hct 39.9 MCV 99.7 H MCHC 33.2 RDW 14.1 Plt Count 140 MPV 9.9 Neutrophils % 56.0 D Lymphocytes % 27.4 D Monocytes % 11.5 H D Eosinophils % 4.2 D Basophils % 0.9 D INR 0.96 Sodium Potassium Chloride Carbon Dioxide Anion Gap BUN Creatinine Creat Clearance w eGFR Random Glucose Lactic Acid Calcium Total Bilirubin AST ALT Alkaline Phosphatase Total Protein Albumin Urine Color Yellow Urine Appearance Clear Urine pH 5.0 Ur Specific [place] 1.020 Urine Protein Negative Urine Glucose (UA) Negative Urine Ketones Negative Urine Blood Negative Urine Nitrite Negative Urine Bilirubin Negative Urine Urobilinogen Negative Ur Leukocyte Esterase 2+ H D Urine RBC 2 Urine WBC 27 Urine Yeast Rare 09/23/16 09/23/16 14:20 14:20 WBC RBC Hgb Hct MCV MCHC RDW Plt Count MPV Neutrophils % Lymphocytes % Monocytes % Eosinophils % Basophils % INR Sodium 140 Potassium 4.3 Chloride 109 H Carbon Dioxide 22 Anion Gap 9 BUN 24 H D Creatinine 1.5 H Creat Clearance w eGFR 45.87 Random Glucose 97 Lactic Acid 1.681 Calcium 8.3 L Total Bilirubin 0.3 D AST 13 L ALT 33 D Alkaline Phosphatase 55 D Total Protein 6.1 L Albumin 3.8 D Urine Color Urine Appearance Urine pH Ur Specific [place] Urine Protein Urine Glucose (UA) Urine Ketones Urine Blood Urine Nitrite Urine Bilirubin Urine Urobilinogen Ur Leukocyte Esterase Urine RBC Urine WBC Urine Yeast Active Medications Generic Name Dose Route Start Last Admin Trade Name Freq PRN Reason Stop Dose Admin Albuterol Sulfate 1 amp 09/23/16 21:32 Ventolin 0.083% Nebulizer Soln - NEB Q4H PRN SHORT OF BREATH/WHEEZING Atorvastatin Calcium 10 mg 09/23/16 22:00 Lipitor - PO HS SIENA Diltiazem HCl 120 mg 09/24/16 10:00 Cardizem Cd - PO DAILY [facility] Docusate Sodium 100 mg 09/23/16 22:00 Colace - PO BID [facility] Duloxetine HCl 30 mg 09/23/16 22:00 Cymbalta - PO BID [facility] Heparin Sodium (Porcine) 5,000 unit 09/23/16 22:00 Heparin - SQ BID [facility] Lisinopril 20 mg 09/23/16 22:00 Prinivil PO BID [facility] Metoprolol Succinate 25 mg 09/24/16 10:00 Toprol Xl - PO DAILY [facility] Non-Formulary Medication 0.25 mg 09/23/16 22:00 Alprazolam [Xanax] PO BID [facility] Polyethylene Glycol 17 gm 09/23/16 22:00 Miralax (For Daily Use) - PO BID [facility] Tamsulosin HCl 0.4 mg 09/24/16 10:00 Flomax - PO DAILY [facility] Trazodone HCl 50 mg 09/23/16 21:28 Desyrel - PO HS PRN INSOMNIA
[2016-09-23] MEDS: ALPRAZolam 0.25 MG TABLET PO SCH (22:28)
[2016-09-23] MEDS: LISINOPRIL 20 MG TABLET (FP) PO SCH (22:28)
[2016-09-23] MEDS: ATORVASTATIN CA 10 MG TABLET (FP) PO SCH (22:28)
[2016-09-23] MEDS: DOCUSATE SODIUM 100 MG CAPSULE (FP) PO SCH ×2 (22:28→22:33)
[2016-09-23] MEDS: DULoxetine HCL 30 MG CAPSULE.DR (FP) PO SCH (22:28)
[2016-09-23] MEDS: POLYETHYLENE GLYCOL 3350 119 GM BTL PO SCH (22:29)
[2016-09-23] MEDS: traZODone HCL 50 MG TABLET (FP) PO PRN (22:29)
[2016-09-23] MEDS: HEPARIN NA (PORCINE) 5,000 UNITS/ML 1ML VIAL SQ SCH (22:29)
[2016-09-23 23:40] VITALS: BMI 25.4
[2016-09-24] MEDS: TAMSULOSIN HCL 0.4 MG CAP.ER.24H (FP) PO SCH (09:05)
[2016-09-24] MEDS: ALPRAZolam 0.25 MG TABLET PO SCH ×2 (09:05→21:26)
[2016-09-24] MEDS: DOCUSATE SODIUM 100 MG CAPSULE (FP) PO SCH ×3 (09:05→21:26)
[2016-09-24] MEDS: LISINOPRIL 20 MG TABLET (FP) PO SCH ×2 (09:05→21:27)
[2016-09-24] MEDS: POLYETHYLENE GLYCOL 3350 119 GM BTL PO SCH ×2 (09:06→21:26)
[2016-09-24] MEDS: METOPROLOL SUCCINATE 25 MG TAB.SR.24H (FP) PO SCH (09:06)
[2016-09-24] MEDS: DULoxetine HCL 30 MG CAPSULE.DR (FP) PO SCH ×2 (09:06→21:26)
[2016-09-24] MEDS: HEPARIN NA (PORCINE) 5,000 UNITS/ML 1ML VIAL SQ SCH ×2 (09:06→21:26)
[2016-09-24] MEDS ORDERED: ACETAMINOPHEN 325 MG TABLET (FP) PO PRN ×2 (12:33)
[2016-09-24] MEDS ORDERED: oxyCODONE HCL 5 MG TABLET PO PRN ×2 (12:33)
--- NOTE | 2016-09-24 13:55 | CONSULT ---
Consult Consult Specialty:: infectious diseases Reason for Consultation:: r/o pna.uti - History of Present Illness Chief Complaint: weakness dirrhoea History of Present Illness: 71 year old male with PMH of HTN, HLD, Paroxysmal AFib, Known LBBB, Diverticulitis, pancreatitis, COPD, Kidney stones (s/p R UVJ Stent) & depression /anxiety who presents to ED with abdominal pain, generalized weakness and SOB. Patient reports abdominal pain for few days and states that he was constipated but took laxative which is causing him to have small bowel movements. He denies any diarrhea. He notes that he is feeling more weak than usua. He also reports difficulty breathing for 2 days and received a breathing treatment by EMS. 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 stress test in 01/14 - normal (pt reports recent one ,about 14 montsh ago,at [facility] -. normal)) Cardio/Vascular: Yes: HTN, Hyperlipdemia, Other (atypical chest pain in the past with neg stress test. Hx of WCT in 01/16 -. thought to be SVT at pt has underlying LBBB) Pulmonary: Yes: COPD Gastrointestinal: Yes: Constipation, Hiatal Hernia, Irritable Bowel Disease Renal/: Yes: Renal Inusuff, BPH, Renal Calculi (Patient says that he has kidney stone, ? 6 cm in one kidney) Infectious Disease: Yes: Other (?hx "shingles") Psych: Yes: Anxiety, Depression Musculoskeletal: Yes: Chronic low back pain, Osteoarthritis, Other (Lower extremity ulcerations) - Past Surgical History Past Surgical History: Yes: Hernia Repair, Laminectomy (X 2 -> "failed" per patient) - Alcohol/Substance Use Hx Alcohol Use: No History of Substance Use: reports: None - Smoking History Smoking history: Former smoker Have you smoked in the past 12 months: No Aproximately how many cigarettes per day: 0 If you are a former smoker, when did you quit?: over 25 years ago - Social History Usual Living Arrangement: With Significant Other 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 Travel: No Home Medications - Allergies Allergies/Adverse Reactions: Allergies Allergy/AdvReac Type Severity Reaction Status Date / Time pregabalin [From Lyrica] Allergy Mild Verified 09/23/16 14:10 pravastatin sodium Allergy Unknown Verified 09/23/16 14:10 [From Pravachol] lactose Allergy Nausea Verified 09/23/16 14:10 morphine Allergy Verified 09/23/16 14:10 Penicillins Allergy Verified 09/23/16 14:10 - Home Medications Home Medications: Ambulatory Orders Atorvastatin Ca [Lipitor] 10 mg PO HS #30 tablet 11/23/14 Lisinopril [Prinivil] 20 mg PO BID 06/24/15 Trazodone HCl [Desyrel -] 50 mg PO HS PRN 07/22/15 Pantoprazole Sodium [Protonix -] 40 mg PO BID #60 tablet.ec 07/26/15 Duloxetine HCl [Cymbalta -] 30 mg PO BID #60 capsule.dr 03/29/16 Metoprolol Succinate [Toprol XL -] 25 mg PO DAILY #30 tab.sr.24h 03/29/16 Alprazolam [Xanax] 0.25 mg PO BID 04/12/16 Tamsulosin HCl [Flomax -] 0.4 mg PO DAILY #30 cap.er.24h 05/24/16 Diltiazem Cd [Cardizem Cd -] 120 mg PO DAILY #30 cap.cd.24h 05/29/16 Docusate Sodium [Colace -] 100 mg PO BID #60 capsule 06/07/16 Alendronate Na [Fosamax (Weekly)] 70 mg PO WEEKLY 08/22/16 Oxycodone HCl/Acetaminophen [Percocet 5-325 mg Tablet] 1 - 2 tab PO Q4H Levofloxacin [Levaquin] 500 mg PO DAILY #3 tablet 08/25/16 Family Disease History - Family Disease History Family Disease History: CA: Father (lung ), Mother (gall bladder ) Review of Systems - Review of Systems Constitutional: reports: Other Eyes: reports: No Symptoms HENT: reports: No Symptoms Neck: reports: No Symptoms Cardiovascular: reports: No Symptoms Respiratory: reports: SOB, SOB on Exertion Gastrointestinal: reports: Diarrhea Musculoskeletal: reports: No Symptoms Integumentary: reports: No Symptoms Neurological: reports: No Symptoms Endocrine: reports: No Symptoms Hematology/Lymphatic: reports: No Symptoms Psychiatric: reports: No Symptoms Physical Exam Vital Signs: Vital Signs Temperature 98.2 F 09/24/16 13:31 Pulse Rate 60 09/24/16 13:31 Respiratory Rate 17 09/24/16 13:31 Blood Pressure 132/93 09/24/16 08:00 O2 Sat by Pulse Oximetry (%) 98 09/24/16 08:00 Constitutional: Yes: Well Nourished, No Distress, Calm Eyes: Yes: Conjunctiva Clear HENT: Yes: Atraumatic Neck: Yes: Supple, Trachea Midline Cardiovascular: Yes: Regular Rate and Rhythm Respiratory: Yes: Regular, Poor Air Entry Gastrointestinal: Yes: Normal Bowel Sounds, Soft Musculoskeletal: Yes: WNL Extremities: Yes: WNL Neurological: Yes: Alert, Oriented Psychiatric: Yes: Alert Imaging - Results Chest X-ray: Report Reviewed, Image Reviewed Cat Scan: Report Reviewed, Image Reviewed Assessment/Plan copd uti weakness bipolar disorder plan hydration no abx at this time
--- NOTE | 2016-09-24 16:23 | CON.GI ---
Consult Consult Specialty:: GI Referred by:: Dr. Rodriguez Reason for Consultation:: Abdominal pain - History of Present Illness Chief Complaint: I was short of breath History of Present Illness: 71M admitted for evaluation of shortness of breath. Also described abdominal pain. + chronic constipation. he has poor medical follow-up and engages in minimal activity due to "a bad back". he was evaluated by Dr. Bartlett 07/18. Egd at that time revealed a large mid esophageal ulcer, schatzki's ring and hiatal hernia. Dr. ortiz recommended that Mr. Hernandez follow-up in to discuss repeat EGD in 6 weeks. Mr. Hernandez never followed up. He believes that he had a colonoscopy [address] Stephens that was "OK". He had a barium enema in 11/[address] Ortiz that showed diffuse colonic diverticulosis and failed to reveal a colon stricture. the proximal ascending and cecum were bnot adequately distended given patient discomfort. There has been no reported rectal bleeding, nausea, vomiting, unintentional weight loss. 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 stress test in 01/14 - normal (pt reports recent one ,about 14 montsh ago,at [facility] -. normal)) Cardio/Vascular: Yes: HTN, Hyperlipdemia, Other (atypical chest pain in the past with neg stress test. Hx of WCT in 01/16 -. thought to be SVT at pt has underlying LBBB) Pulmonary: Yes: COPD Gastrointestinal: Yes: Constipation, Hiatal Hernia, Irritable Bowel Disease Renal/: Yes: Renal Inusuff, BPH, Renal Calculi (Patient says that he has kidney stone, ? 6 cm in one kidney) Infectious Disease: Yes: Other (?hx "shingles") Psych: Yes: Anxiety, Depression Musculoskeletal: Yes: Chronic low back pain, Osteoarthritis, Other (Lower extremity ulcerations) - Past Surgical History Past Surgical History: Yes: Hernia Repair, Laminectomy (X 2 -> "failed" per patient) - Alcohol/Substance Use Hx Alcohol Use: No History of Substance Use: reports: None - Smoking History Smoking history: Former smoker Have you smoked in the past 12 months: No Aproximately how many cigarettes per day: 0 If you are a former smoker, when did you quit?: over 25 years ago - Social History Usual Living Arrangement: Alone 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 Place of : [facility] History of Recent Travel: No Home Medications - Allergies Allergies/Adverse Reactions: Allergies Allergy/AdvReac Type Severity Reaction Status Date / Time pregabalin [From Lyrica] Allergy Mild Verified 09/23/16 14:10 pravastatin sodium Allergy Unknown Verified 09/23/16 14:10 [From Pravachol] lactose Allergy Nausea Verified 09/23/16 14:10 morphine Allergy Verified 09/23/16 14:10 Penicillins Allergy Verified 09/23/16 14:10 - Home Medications Home Medications: Ambulatory Orders Atorvastatin Ca [Lipitor] 10 mg PO HS #30 tablet 11/23/14 Lisinopril [Prinivil] 20 mg PO BID 06/24/15 Trazodone HCl [Desyrel -] 50 mg PO HS PRN 07/22/15 Pantoprazole Sodium [Protonix -] 40 mg PO BID #60 tablet.ec 07/26/15 Duloxetine HCl [Cymbalta -] 30 mg PO BID #60 capsule. 03/29/16 Metoprolol Succinate [Toprol XL -] 25 mg PO DAILY #30 tab.sr.24h 03/29/16 Alprazolam [Xanax] 0.25 mg PO BID 04/12/16 Tamsulosin HCl [Flomax -] 0.4 mg PO DAILY #30 cap.er.24h 05/24/16 Diltiazem Cd [Cardizem Cd -] 120 mg PO DAILY #30 cap.cd.24h 05/29/16 Docusate Sodium [Colace -] 100 mg PO BID #60 capsule 06/07/16 Alendronate Na [Fosamax (Weekly)] 70 mg PO WEEKLY 08/22/16 Oxycodone HCl/Acetaminophen [Percocet 5-325 mg Tablet] 1 - 2 tab PO Q4H Levofloxacin [Levaquin] 500 mg PO DAILY #3 tablet 08/25/16 Family Disease History - Family Disease History Family Disease History: CA: Father ( 63: lung ca ), Mother ( 86: gall bladder cancer ), Other: Sister (alive: healthy) Other Family History: No children. No family history of colorectal cancer Review of Systems - Review of Systems HENT: reports: Difficult Swallowing Respiratory: reports: SOB (improved) Gastrointestinal: reports: Abdominal Pain, Other (belching). denies: Melena, Nausea, Rectal Bleeding, Vomiting Physical Exam-GI Vital Signs: Vital Signs Temperature 98.2 F 09/24/16 13:31 Pulse Rate 60 09/24/16 13:31 Respiratory Rate 17 09/24/16 13:31 Blood Pressure 132/93 09/24/16 08:00 O2 Sat by Pulse Oximetry (%) 98 09/24/16 08:00 Constitutional: Yes: Calm Eyes: No: Sclera Icterus Cardiovascular: Yes: Regular Rate and Rhythm Respiratory: Yes: CTA Bilaterally Gastrointestinal Inspection: Yes: Other (+ rectus diastasis). No: Distention ...Auscultate: Yes: Normoactive Bowel Sounds, Other ...Palpate: Yes: Soft. No: Guarding, Hepatomegaly, Splenomegaly, Tenderness ...Percussion: No: Tympanitic ...Rectal Exam: Yes: Guaiac Negative (light brown stool, no fecal impaction, 2 + prostate) Edema: No Neurological: Yes: Alert, Oriented Labs: INR, PTT INR 0.96 (0.82-1.09) 09/23/16 14:20 CBC, BMP 09/23/16 14:20 09/23/16 14:20 Hepatic Panel Total Bilirubin 0.3 mg/dL (0.2-1.0) D 09/23/16 14:20 AST 13 U/L (15-37) L 09/23/16 14:20 ALT 33 U/L (12-78) D 09/23/16 14:20 Alkaline Phosphatase 55 U/L (45-117) D 09/23/16 14:20 Albumin 3.8 g/dl (3.4-5.0) D 09/23/16 14:20 Imaging - Results X-ray: Report Reviewed Problem List - Problems (1) Constipation Assessment/Plan: MiraLAX 17g PO BID Encouraged increased physical activity Code(s): K59.00 - CONSTIPATION, UNSPECIFIED (2) Esophageal ulcer Assessment/Plan: Odd location in the mid esophagus and it does not appear as though he followed up regarding this. He does say that he has been compliant with PPI therapy at home. Discussed repeat EGD to evaluate for ulcer healing Discussed potential risks of the procedure like but not limited to bleeding, perforation requiring surgery to repair, infection, sedation medication effects all of which could be potentially life threatening. he has agreed to the procedure. If ulceration appears healed, chronic PPI therapy could likely be discontinued Code(s): K22.10 - ULCER OF ESOPHAGUS WITHOUT BLEEDING Qualifiers: Qualified Code(s): K22.10 - Ulcer of esophagus without bleeding (3) Enlarged prostate Assessment/Plan: Noted on exam. He describes poor follow-up regarding this. Consider urology evaluation Code(s): N40.0 - BENIGN PROSTATIC HYPERPLASIA WITHOUT LOWER URINRY TRACT SYMP
--- NOTE | 2016-09-24 18:10 | CONSULT ---
Consult Consult Specialty:: urology Reason for Consultation:: urinary frequency and incontinence - History of Present Illness Chief Complaint: urinary incontinence History of Present Illness: 71 yo admitted with pneumonia. Has been having frequency and incontinence. no dysuria. 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 stress test in 01/14 - normal (pt reports recent one ,about 14 montsh ago,at [facility] -. normal)) Cardio/Vascular: Yes: HTN, Hyperlipdemia, Other (atypical chest pain in the past with neg stress test. Hx of WCT in 01/16 -. thought to be SVT at pt has underlying LBBB) Pulmonary: Yes: COPD Gastrointestinal: Yes: Constipation, Hiatal Hernia, Irritable Bowel Disease Renal/: Yes: Renal Inusuff, BPH, Renal Calculi (Patient says that he has kidney stone, ? 6 cm in one kidney) Infectious Disease: Yes: Other (?hx "shingles") Psych: Yes: Anxiety, Depression Musculoskeletal: Yes: Chronic low back pain, Osteoarthritis, Other (Lower extremity ulcerations) - Past Surgical History Past Surgical History: Yes: Hernia Repair, Laminectomy (X 2 -> "failed" per patient) - Alcohol/Substance Use Hx Alcohol Use: No History of Substance Use: reports: None - Smoking History Smoking history: Former smoker Have you smoked in the past 12 months: No Aproximately how many cigarettes per day: 0 If you are a former smoker, when did you quit?: over 25 years ago - Social History Usual Living Arrangement: Alone Occupation: retired [employer] History of Recent Travel: No Home Medications - Allergies Allergies/Adverse Reactions: Allergies Allergy/AdvReac Type Severity Reaction Status Date / Time pregabalin [From Lyrica] Allergy Mild Verified 09/23/16 14:10 pravastatin sodium Allergy Unknown Verified 09/23/16 14:10 [From Pravachol] lactose Allergy Nausea Verified 09/23/16 14:10 morphine Allergy Verified 09/23/16 14:10 Penicillins Allergy Verified 09/23/16 14:10 - Home Medications Home Medications: Ambulatory Orders Atorvastatin Ca [Lipitor] 10 mg PO HS #30 tablet 11/23/14 Lisinopril [Prinivil] 20 mg PO BID 06/24/15 Trazodone HCl [Desyrel -] 50 mg PO HS PRN 07/22/15 Pantoprazole Sodium [Protonix -] 40 mg PO BID #60 tablet.ec 07/26/15 Duloxetine HCl [Cymbalta -] 30 mg PO BID #60 capsule. 03/29/16 Metoprolol Succinate [Toprol XL -] 25 mg PO DAILY #30 tab.sr.24h 03/29/16 Alprazolam [Xanax] 0.25 mg PO BID 04/12/16 Tamsulosin HCl [Flomax -] 0.4 mg PO DAILY #30 cap.er.24h 05/24/16 Diltiazem Cd [Cardizem Cd -] 120 mg PO DAILY #30 cap.cd.24h 05/29/16 Docusate Sodium [Colace -] 100 mg PO BID #60 capsule 06/07/16 Alendronate Na [Fosamax (Weekly)] 70 mg PO WEEKLY 08/22/16 Oxycodone HCl/Acetaminophen [Percocet 5-325 mg Tablet] 1 - 2 tab PO Q4H Levofloxacin [Levaquin] 500 mg PO DAILY #3 tablet 08/25/16 Family Disease History - Family Disease History Family Disease History: CA: Father ( 63: lung ca ), Mother ( 86: gall bladder cancer ), Other: Sister (alive: healthy) Other Family History: No children. No family history of colorectal cancer Review of Systems - Review of Systems Constitutional: reports: No Symptoms Genitourinary: reports: Frequency, Incontinence Physical Exam Vital Signs: Vital Signs Temperature 98.2 F 09/24/16 13:31 Pulse Rate 60 09/24/16 13:31 Respiratory Rate 17 09/24/16 13:31 Blood Pressure 132/93 09/24/16 08:00 O2 Sat by Pulse Oximetry (%) 98 09/24/16 08:00 Constitutional: Yes: Well Nourished, No Distress, Calm Gastrointestinal: Yes: WNL, Normal Bowel Sounds Renal/: Yes: Incontinence Problem List - Problems (1) Urge incontinence of urine Assessment/Plan: trial of Vesicare. Code(s): N39.41 - URGE INCONTINENCE
--- NOTE | 2016-09-24 19:03 | PN ---
Progress Note, Physician - Current Medication List Current Medications: Active Medications Acetaminophen (Tylenol -) 325 mg PO Q4H PRN PRN Reason: PAIN Stop: 09/27/16 12:32 Acetaminophen (Tylenol -) 650 mg PO Q4H PRN PRN Reason: PAIN Stop: 09/27/16 12:32 Albuterol Sulfate (Ventolin 0.083% Nebulizer Soln -) 1 amp NEB Q4H PRN PRN Reason: SHORT OF BREATH/WHEEZING Last Admin: 09/24/16 11:03 Dose: 1 amp Alprazolam (Xanax -) 0.25 mg PO BID [facility] Last Admin: 09/24/16 09:05 Dose: 0.25 mg Atorvastatin Calcium (Lipitor -) 10 mg PO HS [facility] Last Admin: 09/23/16 22:28 Dose: 10 mg Diltiazem HCl (Cardizem Cd -) 120 mg PO DAILY [facility] Last Admin: 09/24/16 09:06 Dose: 120 mg Docusate Sodium (Colace -) 100 mg PO BID [facility] Last Admin: 09/24/16 09:09 Dose: Not Given Duloxetine HCl (Cymbalta -) 30 mg PO BID [facility] Last Admin: 09/24/16 09:06 Dose: 30 mg Heparin Sodium (Porcine) (Heparin -) 5,000 unit SQ BID [facility] Last Admin: 09/24/16 09:06 Dose: 5,000 unit Lisinopril (Prinivil) 20 mg PO BID [facility] Last Admin: 09/24/16 09:05 Dose: 20 mg Metoprolol Succinate (Toprol Xl -) 25 mg PO DAILY [facility] Last Admin: 09/24/16 09:06 Dose: 25 mg Oxycodone HCl (Roxicodone -) 5 mg PO Q4H PRN PRN Reason: PAIN Oxycodone HCl (Roxicodone -) 10 mg PO Q4H PRN PRN Reason: PAIN Polyethylene Glycol (Miralax (For Daily Use) -) 17 gm PO BID [facility] Last Admin: 09/24/16 09:06 Dose: 17 gm Solifenacin (Vesicare -) 5 mg PO DAILY [facility] Tamsulosin HCl (Flomax -) 0.4 mg PO DAILY@0830 [facility] Last Admin: 09/24/16 09:05 Dose: 0.4 mg Trazodone HCl (Desyrel -) 50 mg PO HS PRN PRN Reason: INSOMNIA Last Admin: 09/23/16 22:29 Dose: 50 mg - Objective Vital Signs: Vital Signs Temperature 98.2 F 09/24/16 13:31 Pulse Rate 60 09/24/16 13:31 Respiratory Rate 17 09/24/16 13:31 Blood Pressure 132/93 09/24/16 08:00 O2 Sat by Pulse Oximetry (%) 98 09/24/16 08:00 Constitutional: Yes: No Distress HENT: Yes: Atraumatic Neck: Yes: Supple Cardiovascular: Yes: Regular Rate and Rhythm Respiratory: Yes: CTA Bilaterally Gastrointestinal: Yes: Normal Bowel Sounds Extremities: Yes: WNL Neurological: Yes: Alert, Oriented Labs: INR, PTT INR 0.96 (0.82-1.09) 09/23/16 14:20 Problem List - Problems (1) Prostatitis Code(s): N41.9 - INFLAMMATORY DISEASE OF PROSTATE, UNSPECIFIED Qualifiers: Prostatitis type: acute Qualified Code(s): N41.0 - Acute prostatitis (2) Urinary tract infection Code(s): N39.0 - URINARY TRACT INFECTION, SITE NOT SPECIFIED Qualifiers: Urinary tract infection type: site unspecified Hematuria presence: without hematuria Qualified Code(s): N39.0 - Urinary tract infection, site not specified (3) HTN (hypertension) Code(s): I10 - ESSENTIAL (PRIMARY) HYPERTENSION Qualifiers: Hypertension type: essential hypertension Qualified Code(s): I10 - Essential (primary) hypertension (4) Hyperlipidemia Code(s): E78.5 - HYPERLIPIDEMIA, UNSPECIFIED Qualifiers: Hyperlipidemia type: unspecified Qualified Code(s): E78.5 - Hyperlipidemia, unspecified (5) Osteoarthritis Code(s): M19.90 - UNSPECIFIED OSTEOARTHRITIS, UNSPECIFIED SITE Qualifiers: Osteoarthritis location: multiple joints Osteoarthritis type: primary Qualified Code(s): M15.0 - Primary generalized (osteo)arthritis (6) Constipation Code(s): K59.00 - CONSTIPATION, UNSPECIFIED Assessment/Plan Problem List - Problems (1) Prostatitis Assessment/Plan: IV ABX UCX UROLOGY CONSULT Code(s): N41.9 - INFLAMMATORY DISEASE OF PROSTATE, UNSPECIFIED Qualifiers: Prostatitis type: acute Qualified Code(s): N41.0 - Acute prostatitis (2) Urinary tract infection Assessment/Plan: ON ABX Code(s): N39.0 - URINARY TRACT INFECTION, SITE NOT SPECIFIED Qualifiers: Urinary tract infection type: site unspecified Hematuria presence: without hematuria Qualified Code(s): N39.0 - Urinary tract infection, site not specified (3) HTN (hypertension) Assessment/Plan: ON MEDICATIONS STABLE Code(s): I10 - ESSENTIAL (PRIMARY) HYPERTENSION Qualifiers: Hypertension type: essential hypertension Qualified Code(s): I10 - Essential (primary) hypertension (4) Hyperlipidemia Assessment/Plan: STABLE ON MEDS Code(s): E78.5 - HYPERLIPIDEMIA, UNSPECIFIED Qualifiers: Hyperlipidemia type: unspecified Qualified Code(s): E78.5 - Hyperlipidemia, unspecified (5) Osteoarthritis Code(s): M19.90 - UNSPECIFIED OSTEOARTHRITIS, UNSPECIFIED SITE Qualifiers: Osteoarthritis location: multiple joints Osteoarthritis type: primary Qualified Code(s): M15.0 - Primary generalized (osteo)arthritis (6) Constipation Assessment/Plan: ON BOWEL REGIMEN Code(s): K59.00 - CONSTIPATION, UNSPECIFIED
[2016-09-24] MEDS: ATORVASTATIN CA 10 MG TABLET (FP) PO SCH (21:26)
[2016-09-24] MEDS: traZODone HCL 50 MG TABLET (FP) PO PRN (21:26)
[2016-09-25 08:09] VITALS: TEMP 98.3
[2016-09-25] MEDS: TAMSULOSIN HCL 0.4 MG CAP.ER.24H (FP) PO SCH (09:02)
[2016-09-25] MEDS: LISINOPRIL 20 MG TABLET (FP) PO SCH (09:03)
[2016-09-25] MEDS: DULoxetine HCL 30 MG CAPSULE.DR (FP) PO SCH (09:03)
[2016-09-25] MEDS: DOCUSATE SODIUM 100 MG CAPSULE (FP) PO SCH (09:03)
[2016-09-25] MEDS: POLYETHYLENE GLYCOL 3350 119 GM BTL PO SCH (09:03)
[2016-09-25] MEDS: ALPRAZolam 0.25 MG TABLET PO SCH (09:04)
[2016-09-25] MEDS: METOPROLOL SUCCINATE 25 MG TAB.SR.24H (FP) PO SCH (09:04)
[2016-09-25] MEDS ORDERED: SOLIFENACIN SUCCINATE 5 MG TAB (FP) PO SCH (10:00)
[2016-09-25 10:50] VITALS: BP 122/72; PULSE 76
--- NOTE | 2016-09-25 10:51 | DS ---
Physical Examination Vital Signs: Vital Signs Temperature 98.3 F 09/25/16 10:00 Pulse Rate 76 09/25/16 10:00 Respiratory Rate 18 09/25/16 10:00 Blood Pressure 122/72 09/25/16 10:00 O2 Sat by Pulse Oximetry (%) 97 09/24/16 21:00 Constitutional: Yes: No Distress HENT: Yes: Atraumatic Neck: Yes: Supple Cardiovascular: Yes: Regular Rate and Rhythm Respiratory: Yes: CTA Bilaterally Gastrointestinal: Yes: Normal Bowel Sounds Extremities: Yes: WNL Discharge Summary Reason For Visit: URINARY TRACT INFECTION; PROSTATITIS Current Active Problems Constipation (Acute) Enlarged prostate (Acute) Esophageal ulcer (Acute) Prostatitis (Acute) Urge incontinence of urine (Acute) Urinary tract infection (Acute) Carotid artery stenosis (Chronic) Depression (Chronic) HTN (hypertension) (Chronic) Hyperlipidemia (Chronic) LBBB (left bundle branch block) (Chronic) Osteoarthritis (Chronic) Polysubstance (excluding opioids) dependence (Chronic) SVT (supraventricular tachycardia) (Chronic) Condition: Good - Instructions Diet, Activity, Other Instructions: see your pmd 2-3 days Disposition: HOME - Home Medications Comprehensive Discharge Medication List: Ambulatory Orders Atorvastatin Ca [Lipitor] 10 mg PO HS #30 tablet 11/23/14 Lisinopril [Prinivil] 20 mg PO BID 06/24/15 Trazodone HCl [Desyrel -] 50 mg PO HS PRN 07/22/15 Pantoprazole Sodium [Protonix -] 40 mg PO BID #60 tablet.ec 07/26/15 Duloxetine HCl [Cymbalta -] 30 mg PO BID #60 capsule. 03/29/16 Metoprolol Succinate [Toprol XL -] 25 mg PO DAILY #30 tab.sr.24h 03/29/16 Alprazolam [Xanax] 0.25 mg PO BID 04/12/16 Tamsulosin HCl [Flomax -] 0.4 mg PO DAILY #30 cap.er.24h 05/24/16 Diltiazem Cd [Cardizem Cd -] 120 mg PO DAILY #30 cap.cd.24h 05/29/16 Docusate Sodium [Colace -] 100 mg PO BID #60 capsule 06/07/16 Alendronate Na [Fosamax (Weekly)] 70 mg PO WEEKLY 08/22/16 Oxycodone HCl/Acetaminophen [Percocet 5-325 mg Tablet] 1 - 2 tab PO Q4H Levofloxacin [Levaquin] 500 mg PO DAILY #3 tablet 08/25/16 refusing egd no need of abx per id dc home
--- NOTE | 2016-09-25 13:32 | PN ---
Progress Note, Physician History of Present Illness: stable no new issues - Objective Vital Signs: Vital Signs Temperature 98.3 F 09/25/16 10:00 Pulse Rate 76 09/25/16 11:16 Respiratory Rate 18 09/25/16 10:00 Blood Pressure 122/72 09/25/16 10:00 O2 Sat by Pulse Oximetry (%) 97 09/25/16 11:16 Constitutional: Yes: No Distress, Calm Neck: Yes: Supple Cardiovascular: Yes: Regular Rate and Rhythm Respiratory: Yes: Regular Gastrointestinal: Yes: Normal Bowel Sounds Labs: INR, PTT INR 0.96 (0.82-1.09) 09/23/16 14:20 Assessment/Plan copd uti weakness bipolar disorder plan hydration no abx at this time
--- NOTE | 2016-09-28 21:08 | EKG ---
Test Reason : Blood Pressure : / mmHG Vent. Rate : 079 BPM Atrial Rate : 079 BPM P-R Int : 152 ms QRS Dur : 144 ms QT Int : 412 ms P-R-T Axes : 039 -65 096 degrees QTc Int : 472 ms SINUS RHYTHM WITH FREQUENT PREMATURE VENTRICULAR COMPLEXES LEFT AXIS DEVIATION LEFT BUNDLE BRANCH BLOCK ABNORMAL ECG WHEN COMPARED WITH ECG OF 22-AUG-2016 08:31, NO SIGNIFICANT CHANGE WAS FOUND Confirmed by RUI KRUGER MD ([id number]) on 09/28/2016 9:08:37 PM Referred By: Confirmed By:RUI KRUGER MD
== END 2016-09-25 12:27 | disposition home or self-care (01) ==
LOC: JER 13:49 → JERBED 18:20 → J6S 22:05
PROVIDERS: ADMIT Internal Medicine; ATTEND Internal Medicine
DX: N39.0 Urinary tract infection, site not specified (principal); J44.9 Chronic obstructive pulmonary disease, unspecified; N20.0 Calculus of kidney; F41.8 Other specified anxiety disorders; I44.7 Left bundle-branch block, unspecified; I10 Essential (primary) hypertension; E78.5 Hyperlipidemia, unspecified; N40.0 Benign prostatic hyperplasia without lower urinary tract symptoms; I48.0 Paroxysmal atrial fibrillation; K22.10 Ulcer of esophagus without bleeding; K57.92 Diverticulitis of intestine, part unspecified, without perforation or abscess without bleeding; K64.8 Other hemorrhoids; N39.41 Urge incontinence; K59.00 Constipation, unspecified; K44.9 Diaphragmatic hernia without obstruction or gangrene; F31.89 Other bipolar disorder; N41.0 Acute prostatitis; K22.2 Esophageal obstruction; M15.0 Primary generalized (osteo)arthritis; K58.8 Other irritable bowel syndrome; M54.5 Low back pain; Z87.891 Personal history of nicotine dependence; Z87.442 Personal history of urinary calculi
CPT/HCPCS: 36415; 71010-TC; 74176-TC; 80053; 81003; 81015; 83605; 85025; 85610; 87040; 87086; 87186; 93005; 93010; 94640; 99285-25; G0378; J1644

== ENCOUNTER 2016-10-06 05:58 | Inpatient (IN) | payer OTHER, BC ==
[2016-10-06] MEDS ORDERED: SODIUM CHLORIDE 250 ML IV STA (06:01)
[2016-10-06] MEDS ORDERED: METOCLOPRAMIDE HCL INJECTION 10 MG/2 ML VIAL IVPUSH ONE (06:02)
--- NOTE | 2016-10-06 06:02 | PDOC ---
History of Present Illness - General Chief Complaint: Nausea/Vomiting Stated Complaint: CHILLLS,VOMITING History Source: Patient Exam Limitations: No Limitations - History of Present Illness Travel History: No Timing/Duration: reports: intermittent Abdominal Pain Onset Location: reports: RLQ Pain Radiation: reports: no radiation Activities at Onset: reports: rest Past History - Travel Traveled outside of the country in the last 30 days: No Close contact w/someone who was outside of country & ill: No - Past Medical History Allergies/Adverse Reactions: Allergies Allergy/AdvReac Type Severity Reaction Status Date / Time pregabalin [From Lyrica] Allergy Mild Verified 10/06/16 06:22 pravastatin sodium Allergy Unknown Verified 10/06/16 06:22 [From Pravachol] lactose Allergy Nausea Verified 10/06/16 06:22 morphine Allergy Verified 10/06/16 06:22 Penicillins Allergy Verified 10/06/16 06:22 Home Medications: Ambulatory Orders Atorvastatin Ca [Lipitor] 10 mg PO HS #30 tablet 11/23/14 Lisinopril [Prinivil] 20 mg PO BID 06/24/15 Trazodone HCl [Desyrel -] 50 mg PO HS PRN 07/22/15 Pantoprazole Sodium [Protonix -] 40 mg PO BID #60 tablet.ec 07/26/15 Duloxetine HCl [Cymbalta -] 30 mg PO BID #60 capsule. 03/29/16 Metoprolol Succinate [Toprol XL -] 25 mg PO DAILY #30 tab.sr.24h 03/29/16 Alprazolam [Xanax] 0.25 mg PO BID 04/12/16 Tamsulosin HCl [Flomax -] 0.4 mg PO DAILY #30 cap.er.24h 05/24/16 Diltiazem Cd [Cardizem Cd -] 120 mg PO DAILY #30 cap.cd.24h 05/29/16 Docusate Sodium [Colace -] 100 mg PO BID #60 capsule 06/07/16 Alendronate Na [Fosamax (Weekly)] 70 mg PO WEEKLY 08/22/16 Oxycodone HCl/Acetaminophen [Percocet 5-325 mg Tablet] 1 - 2 tab PO Q4H Lactulose (Oral Use) [Cephulac -] 20 gm PO PRN PRN #1 bottle 10/09/16 Polyethylene Glycol 3350 [Miralax 119 gm Btl -] 17 gm PO BID #1 bottle 10/09/16 Zolpidem Tartrate [Ambien] 5 mg PO HS PRN #0 tablet MDD 5 10/09/16 Anemia: No Asthma: No Cancer: No Cardiac Disorders: Yes (HTN, HLD, Paroxysmal AFib) CVA: No COPD: Yes CHF: No Dementia: No Diabetes: No GI Disorders: Yes (Diverticulitis, IBS, hemorrhoids) Disorders: Yes (Englarged Prostate) HTN: Yes Hypercholesterolemia: Yes Kidney Stones: Yes (s/p Right UVJ Stent placement) Liver Disease: No Psychiatric Problems: Yes (Depression/Anxiety) Suicide Attempt (Hx): No Seizures: No Thyroid Disease: No - Surgical History Abdominal Surgery: Yes (Hernia Repair) Appendectomy: No Cardiac Surgery: No Cholecystectomy: No GI Surgery: Yes (HEMORRHOIDS/ANAL ULCER, RIGHT UVJ STENT) Lung Surgery: No Neurologic Surgery: No Orthopedic Surgery: Yes (Lumbar Back Surgery x2) - Immunization History Immunization Up to Date: Yes - Psycho/Social/Smoking Cessation Hx Anxiety: No Suicidal Ideation: No Smoking Status: No Smoking History: Former smoker Years of Tobacco Use: 20 Have you smoked in the past 12 months: No Number of Cigarettes Smoked Daily: 0 If you are a former smoker, when did you quit?: over 25 years ago 'Breaking Loose' booklet given: 09/08/13 Hx Alcohol Use: No Drug/Substance Use Hx: No Substance Use Type: None Hx Substance Use Treatment: No Abd/GI Specific PMHX - Complaint Specific PMHX Diverticulitis: No Gall Bladder Disease: No Review of Systems - Review of Systems Able to Perform ROS?: Yes Comments:: 10/06/16 06:23 CONSTITUTIONAL: +fever, chills, Absent: diaphoresis, generalized weakness, malaise, loss of appetite HEENT: Absent: rhinorrhea, nasal congestion, throat pain, throat swelling, difficulty swallowing, mouth swelling, ear pain, eye pain, visual Changes CARDIOVASCULAR: Absent: chest pain, loss of consciousness, palpitations, irregular heart rate, peripheral edema RESPIRATORY: Absent: cough, shortness of breath, dyspnea with exertion, orthopnea, wheezing, stridor, hemoptysis GASTROINTESTINAL: +abdominal pain, nausea, vomiting, diarrhea Absent: abdominal distension, constipation, melena, hematochezia GENITOURINARY: Absent: dysuria, frequency, urgency, hesitancy, hematuria, flank pain, genital pain MUSCULOSKELETAL: Absent: myalgia, arthralgia, joint swelling SKIN: Absent: rash, itching, pallor HEMATOLOGIC/IMMUNOLOGIC: Absent: easy bleeding, easy bruising, lymphadenopathy, frequent infections ENDOCRINE: Absent: unexplained weight gain, unexplained weight loss, heat intolerance, cold intolerance NEUROLOGIC: Absent: headache, focal weakness or paresthesias, dizziness, unsteady gait, seizure, mental status changes, bladder or bowel incontinence PSYCHIATRIC: Absent: anxiety, depression, suicidal or homicidal ideation, hallucinations. 10/06/16 06:25 Is the patient limited Armenian proficient: No *Physical Exam - Physical Exam Comments: 10/06/16 06:23 GENERAL: Well developed, well nourished. Awake and alert. No acute distress. HEENT: Normocephalic, atraumatic. PERRLA, EOMI. No conjunctival pallor. Sclera are non- icteric. Moist mucous membranes. Oropharynx is clear. NECK: Supple. Full ROM. No JVD. Carotid pulses 2+ and symmetric, without bruits. No thyromegaly. No lymphadenopathy. CARDIOVASCULAR: Regular rate and rhythm. No murmurs, rubs, or gallops. Distal pulses are 2+ and symmetric. PULMONARY: No evidence of respiratory distress. Lungs clear to auscultation bilaterally. No wheezing, rales or rhonchi. ABDOMINAL: RLQ pain Soft. Non-distended. No rebound or guarding. No organomegaly. Normoactive bowel sounds. MUSCULOSKELETAL Normal range of motion at all joints. No bony deformities or tenderness. No CVA tenderness. EXTREMITIES: No cyanosis. No clubbing. No edema. No calf tenderness. SKIN: Warm and dry. Normal capillary refill. No rashes. No jaundice. NEUROLOGICAL: Alert, awake, appropriate. Cranial nerves 2-12 intact. No deficits to light touch and temperature in face, upper extremities and lower extremities. No motor deficits in the in face, upper extremities and lower extremities. Normoreflexic in the upper and lower extremities. Normal speech. Toes are down- going bilaterally. Gait is normal without ataxia. PSYCHIATRIC: Cooperative. Good eye contact. Appropriate mood and affect. 10/06/16 06:25 ED Treatment Course - LABORATORY CBC & Chemistry Diagram: 10/09/16 05:45 10/08/16 08:30 Progress Note - Progress Note Progress Note: 71-year-old male pmhx of hypertension, paroxysmal A. fib, known left bundle branch block, pancreatitis, kidney stones, COPD, pancreatitis, depression biba complaining of RLQ abdominal pain with chronic back pain and generalized weakness. Patient states his abdominal pain started 2-3 days ago with nausea/ vomiting and diarrhea as of last evening. There are no alleviating or exacerbating factors. Patient denies any headache, dizziness, lightheadedness, neck pains, chest pain, shortness of breath or flank pains. Pt has had numerous bouts on non bloody and non biliouos diarrhea this evening. Pt recently seen (09/23/2016) dx with diverticulosis without diverticulitis 1859hrs: Signed out to Christine Jara NP *DC/Admit/Observation/Transfer Diagnosis at time of Disposition: Abdominal pain, Pneumonia, Vomiting and diarrhea - Discharge Dispostion Disposition: HOME Condition at time of disposition: Stable - Prescriptions
[2016-10-06] MEDS ORDERED: METOCLOPRAMIDE HCL INJECTION 10 MG/2 ML VIAL ONE (06:08)
[2016-10-06 06:18] LABS: BASOPHIL 1.2 % (0-2.0); EOSINOPHIL 1.9 % (0-4.5); MCH 33.1 pg (25.7-33.7); MEAN CELL VOLUME 100.2 fl (80-96); MEAN PLT VOLUME 8.7 fl (7.5-11.1); NEUTROPHILS 81.2 % (42.8-82.8); PLATELET COUNT 202 K/MM3 (134-434); RDW 14.5 % (11.9-15.9); WHITE BLOOD COUNT 14.2 K/mm3 (4.0-10.0)
[2016-10-06] MEDS ORDERED: HYDROmorphone HCL CARPU-JECT 1 MG/1 ML DISP.SYRIN IVPUSH ONE (06:36)
[2016-10-06] MEDS ORDERED: HYDROmorphone HCL CARPU-JECT 1 MG/1 ML DISP.SYRIN ONE (06:46)
[2016-10-06 07:00] LABS: AMYLASE 107 U/L (25-115)
[2016-10-06 07:02] LABS: ALBUMIN 4.1 g/dl (3.4-5.0); BILIRUBIN,TOTAL 0.4 mg/dL (0.2-1.0); CALCIUM 9.2 mg/dL (8.5-10.1); CREATININE 1.7 mg/dL (0.7-1.3); TOT PROT 6.7 g/dl (6.4-8.2)
--- NOTE | 2016-10-06 07:20 | PDOC ---
*Physical Exam - Vital Signs Last Vital Signs Temp Pulse Resp BP Pulse Ox 99.4 F 107 H 24 139/85 97 10/06/16 06:16 10/06/16 06:16 10/06/16 06:16 10/06/16 06:16 10/06/16 06:16 - Physical Exam General Appearance: Yes: Nourished ED Treatment Course - LABORATORY CBC & Chemistry Diagram: 10/06/16 06:00 10/06/16 06:00 - ADDITIONAL ORDERS Additional order review: Laboratory Results 10/06/16 10/06/16 06:00 06:00 Sodium 144 Potassium 4.5 Chloride 106 Carbon Dioxide 24 Anion Gap 14 BUN 24 H Creatinine 1.7 H Creat Clearance w eGFR 39.71 Random Glucose 138 H D Calcium 9.2 Total Bilirubin 0.4 D AST 14 L ALT 31 Alkaline Phosphatase 56 Total Protein 6.7 Albumin 4.1 Total Amylase 107 D Lipase 197 10/06/16 06:00 RBC 4.47 MCV 100.2 H MCHC 33.0 RDW 14.5 MPV 8.7 D Neutrophils % 81.2 D Lymphocytes % 13.0 D Monocytes % 2.7 L Eosinophils % 1.9 Basophils % 1.2 - RADIOLOGY Radiology Studies Ordered: Category Date Time Status CHEST X-RAY PORTABLE* [RAD] Stat Radiology 10/06/16 07:15 Ordered - Medications Given in the ED: ED Medications Discontinued Medications Generic Name Dose Route Start Last Admin Trade Name Freq PRN Reason Stop Dose Admin Hydromorphone HCl 1 mg 10/06/16 06:36 10/06/16 06:50 Dilaudid Injection - IVPUSH 10/06/16 06:37 1 mg ONCE ONE Administration Sodium Chloride 250 mls @ 500 mls/hr 10/06/16 06:01 10/06/16 06:25 Normal Saline - IV 10/06/16 06:30 500 mls/hr ASDIR STA Administration Metoclopramide HCl 10 mg 10/06/16 06:02 10/06/16 06:25 Reglan Injection - IVPUSH 10/06/16 06:03 10 mg ONCE ONE Administration Medical Decision Making - Medical Decision Making 10/06/16 10:04 Patient with vomiting, diarrhea, chills, found to have early infiltrate right upper lobe on chest x-ray also with hydro-to the right kidney area although this no stones seen, patient does have a history of stones in the past. UA is pending, lactic and cultures were ordered, patient was recently in the hospital , ordered Levaquin and cefepime which she had gotten before, has an ALLERGY to penicillin, will give cefepime instead of Zosyn. eKG was reviewed by Dr. Murray, see her report Hospitalist was paged, case discussed with Dr. Muro, will admit to med surg for pneumonia, vomiting/diarrhea, abd pain *DC/Admit/Observation/Transfer Diagnosis at time of Disposition: Abdominal pain Qualifiers: Abdominal location: right lower quadrant Qualified Code(s): R10.31 - Right lower quadrant pain Pneumonia Qualifiers: Pneumonia type: due to unspecified organism Laterality: right Lung location: upper lobe of lung Qualified Code(s): J18.9 - Pneumonia, unspecified organism - Discharge Dispostion Condition at time of disposition: Stable Admit: Yes
[2016-10-06 07:53] VITALS: BMI 24.3
--- NOTE | 2016-10-06 08:26 | PDOC ---
*Physical Exam - Vital Signs Last Vital Signs Temp Pulse Resp BP Pulse Ox 99.4 F 95 H 18 144/73 94 L 10/06/16 06:16 10/06/16 07:45 10/06/16 07:45 10/06/16 07:45 10/06/16 07:45 - Physical Exam Comments: 10/06/16 08:24 SIGN IN Sign-out received from outgoing MLP Pt interviewed and examined Ancillary studies reviewed Transfer of care from Dr. Last MIDLEVEL NOTE Pt seen by Midlevel Provider under my direct supervision. Pt interviewed and examined. Ancillary studies reviewed. I agree with plan as outlined by Midlevel Provider. - MLP Jara 71-year-old male pmhx of hypertension, paroxysmal A. fib, known left bundle branch block, pancreatitis, kidney stones, COPD, pancreatitis, depression biba complaining of RLQ abdominal pain with chronic back pain and generalized weakness. Patient states his abdominal pain started 2-3 days ago with nausea/ vomiting and diarrhea as of last evening. There are no alleviating or exacerbating factors. Patient denies any headache, dizziness, lightheadedness, neck pains, chest pain, shortness of breath or flank pains. Pt has had numerous bouts on non bloody and non biliouos diarrhea this evening. Pt recently seen (09/23/2016) dx with diverticulosis without diverticulitis Laboratory Results - last 24 hr 10/06/16 10/06/16 10/06/16 06:00 06:00 06:00 WBC 14.2 H D RBC 4.47 Hgb 14.8 D Hct 44.8 MCV 100.2 H MCHC 33.0 RDW 14.5 Plt Count 202 D MPV 8.7 D Neutrophils % 81.2 D Lymphocytes % 13.0 D Monocytes % 2.7 L Eosinophils % 1.9 Basophils % 1.2 Sodium 144 Potassium 4.5 Chloride 106 Carbon Dioxide 24 Anion Gap 14 BUN 24 H Creatinine 1.7 H Creat Clearance w eGFR 39.71 Random Glucose 138 H D Calcium 9.2 Total Bilirubin 0.4 D AST 14 L ALT 31 Alkaline Phosphatase 56 Total Protein 6.7 Albumin 4.1 Total Amylase 107 D Lipase 197 Elevated white count with a left shift Macrocytic indices Elevated creatinine, with estimated GFR of 39 Normal amylase and lipase CT scan of the abdomen and pelvis 10/06/16 09:01 EKG Sinus rhythm 94, with left axis deviation -77 Occasional PVCs with compensatory positives are noted There is a left bundle branch block The QTC is 467 There are diffuse nonspecific ST-T wave abnormalities When compared to the EKG of 09/23/16 Today's EKG is unchanged from the prior EKG 10/06/16 09:03 CT scan of the abdomen and pelvis There is moderate dilatation of the right renal pelvis, and mild to moderate right hydroureter down to the UVJ without evidence of stone Extensive diverticulosis without acute diverticulitis is noted Chest x-ray Early right upper lobe infiltrate Patient is ALLERGIC to penicillin, and has been in the hospital recently Will start coverage with Levaquin and cefepime (patient has tolerated cefepime in the past,old ID consult reviewed) 10/06/16 09:24 EKG #1 Sinus tachycardia 135, with LVH, normal axis Normal AV and IV conduction time Prolonged QT, with a QTC of 570 As noted above, her potassium and magnesium were low, and were repleted, and she had also been given Zofran Repeat EKG after above Sinus tachycardia 125, with normal axis LVH The QTC is decreased at 554, from 570 Heart rate is now 107 Lactic acid 3.6 - will recheck after hydration protocol ED Treatment Course - LABORATORY CBC & Chemistry Diagram: 10/07/16 06:45 10/07/16 06:45 - ADDITIONAL ORDERS Additional order review: Laboratory Results 10/06/16 10/06/16 06:00 06:00 Sodium 144 Potassium 4.5 Chloride 106 Carbon Dioxide 24 Anion Gap 14 BUN 24 H Creatinine 1.7 H Creat Clearance w eGFR 39.71 Random Glucose 138 H D Calcium 9.2 Total Bilirubin 0.4 D AST 14 L ALT 31 Alkaline Phosphatase 56 Total Protein 6.7 Albumin 4.1 Total Amylase 107 D Lipase 197 10/06/16 06:00 RBC 4.47 MCV 100.2 H MCHC 33.0 RDW 14.5 MPV 8.7 D Neutrophils % 81.2 D Lymphocytes % 13.0 D Monocytes % 2.7 L Eosinophils % 1.9 Basophils % 1.2 - Medications Given in the ED: ED Medications Discontinued Medications Generic Name Dose Route Start Last Admin Trade Name Freq PRN Reason Stop Dose Admin Hydromorphone HCl 1 mg 10/06/16 06:36 10/06/16 06:50 Dilaudid Injection - IVPUSH 10/06/16 06:37 1 mg ONCE ONE Administration Sodium Chloride 250 mls @ 500 mls/hr 10/06/16 06:01 10/06/16 06:25 Normal Saline - IV 10/06/16 06:30 500 mls/hr ASDIR STA Administration Metoclopramide HCl 10 mg 10/06/16 06:02 10/06/16 06:25 Reglan Injection - IVPUSH 10/06/16 06:03 10 mg ONCE ONE Administration *DC/Admit/Observation/Transfer Diagnosis at time of Disposition: Vomiting and diarrhea Abdominal pain Qualifiers: Abdominal location: right lower quadrant Qualified Code(s): R10.31 - Right lower quadrant pain Pneumonia Qualifiers: Pneumonia type: due to unspecified organism Laterality: right Lung location: upper lobe of lung Qualified Code(s): J18.9 - Pneumonia, unspecified organism - Discharge Dispostion Condition at time of disposition: Stable Admit: Yes
[2016-10-06] MEDS ORDERED: SODIUM CHLORIDE 1,000 ML IV STA (08:49)
[2016-10-06] MEDS ORDERED: CEFEPIME HCL 2 GM VIAL (RESTRICTED TO ID) IVPB ONE (08:56)
[2016-10-06] MEDS ORDERED: LEVOFLOXACIN 750 MG IVPB 150 ML IVPB ONE ×2 (08:57→09:41)
[2016-10-06] MEDS ORDERED: CEFEPIME 100 ML IVPB ONE (09:41)
[2016-10-06 09:55] LABS: URINE APPEARANCE CLEAR; URINE BILIRUBIN NEGATIVE (NEGATIVE); URINE BLOOD NEGATIVE (NEGATIVE); URINE COLOR LTYELLOW; URINE GLUCOSE (UA) NEGATIVE (NEGATIVE); URINE KETONE NEGATIVE (NEGATIVE); URINE LEUK ESTERASE NEGATIVE (NEGATIVE); URINE NITRITE NEGATIVE (NEGATIVE); URINE PROTEIN NEGATIVE (NEGATIVE); URINE UROBILINOGEN NEGATIVE E.U./dl (0.2-1.0)
--- NOTE | 2016-10-06 11:23 | HP ---
CHIEF COMPLAINT: generalized weakness, chills, cough HISTORY OF PRESENT ILLNESS: 70 year old man with a history of multiple episodes of diverticulitis, HTN, osteoarthritis, osteoporosis, COPD, CKD stage 3, nephrolithiasis, and chronic back pain who presented to the ED complaining of chills, sweating, dry heaves, lose bowel movements since this morning. Past few days has been having a cough, at times productive. Says he has not been eating or drinking well for the past several days. After last discharge from [facility], he was at home for 2 days, then went to [facility] for 4-day stay for pneumonia treated with IV abx then discharged home with 10-day course of levaquin, which he says he completed, after completing abx he didn't feel better and he return to ED, he was discharged from ED due to "not meeting inpatient criteria" and was told he had "a cold." Denies bloody bowel movements, dysuria, hematuria, fevers, chest pain. ER course was notable for: (1) (2) (3) Recent Travel: none PAST MEDICAL HISTORY: PAST SURGICAL HISTORY: left inguinal hernia - "yrs ago" tonsillectomy - when he was younger lower back surgery x2, yrs ago by Dr. 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, has had home-health aides in past, lives with a partner(female, for past 25 yrs, she has spinal stenosis and has mobility issues) Smoking:remote, in his 20's for few years Alcohol: denies Drugs: denies Family History: father to unknown cancer Allergies pregabalin [From Lyrica] Allergy (Mild, Verified 10/06/16 06:22) pravastatin sodium [From Pravachol] Allergy (Unknown, Verified 10/06/16 06:22) however, pt takes atorvastatin 10 mg daily at home, reportedly without side effects lactose Allergy (Verified 10/06/16 06:22) Nausea morphine Allergy (Verified 10/06/16 06:22) unknown Penicillins Allergy (Verified 10/06/16 06:22) - he doesn't recall what happens to him. unknown affect HOME MEDICATIONS: Home Medications Medication Instructions Recorded Atorvastatin Ca [Lipitor] 10 mg PO HS #30 tablet 11/23/14 Lisinopril [Prinivil] 20 mg PO BID 06/24/15 Trazodone HCl [Desyrel -] 50 mg PO HS PRN 07/22/15 Pantoprazole Sodium [Protonix -] 40 mg PO BID #60 tablet.ec 07/26/15 Duloxetine HCl [Cymbalta -] 30 mg PO BID #60 capsule.dr 03/29/16 Metoprolol Succinate [Toprol XL -] 25 mg PO DAILY #30 tab.sr.24h 03/29/16 Alprazolam [Xanax] 0.25 mg PO BID 04/12/16 Tamsulosin HCl [Flomax -] 0.4 mg PO DAILY #30 cap.er.24h 05/24/16 Diltiazem Cd [Cardizem Cd -] 120 mg PO DAILY #30 cap.cd.24h 05/29/16 Docusate Sodium [Colace -] 100 mg PO BID #60 capsule 06/07/16 Alendronate Na [Fosamax (Weekly)] 70 mg PO WEEKLY 08/22/16 Oxycodone HCl/Acetaminophen 1 - 2 tab PO Q4H 08/22/16 [Percocet 5-325 mg Tablet] REVIEW OF SYSTEMS CONSTITUTIONAL: Present: chills, generalized weakness, loss of appetite, Absent: fever, diaphoresis, malaise, weight change HEENT: Absent: rhinorrhea, nasal congestion, throat pain, throat swelling, difficulty swallowing, mouth swelling, ear pain, eye pain, visual changes CARDIOVASCULAR: Absent: chest pain, syncope, palpitations, irregular heart rate, lightheadedness , peripheral edema RESPIRATORY: Present: cough Absent: shortness of breath, dyspnea with exertion, orthopnea, wheezing, stridor , hemoptysis GASTROINTESTINAL: Present:diarrhea, Absent: abdominal pain, abdominal distension, nausea, vomiting, constipation, melena, hematochezia GENITOURINARY: Absent: dysuria, frequency, urgency, hesitancy, hematuria, flank pain, genital pain MUSCULOSKELETAL: Absent: myalgia, arthralgia, joint swelling, back pain, neck pain SKIN: Absent: rash, itching, pallor HEMATOLOGIC/IMMUNOLOGIC: Absent: easy bleeding, easy bruising, lymphadenopathy, frequent infections ENDOCRINE: Absent: unexplained weight gain, unexplained weight loss, heat intolerance, cold intolerance NEUROLOGIC: Absent: headache, focal weakness or paresthesias, dizziness, unsteady gait, seizure, mental status changes, bladder or bowel incontinence PSYCHIATRIC: Absent: anxiety, depression, suicidal or homicidal ideation, hallucinations. PHYSICAL EXAMINATION GENERAL: disheveled. malodorous. Awake, alert, and fully oriented, in no acute distress. HEAD: Normal with no signs of trauma. EYES: Pupils equal, round and reactive to light, extraocular movements intact, sclera anicteric, conjunctiva clear. No lid lag. EARS, NOSE, THROAT: Ears normal, nares patent, oropharynx clear without exudates. Moist mucous membranes. NECK: Normal range of motion, supple without lymphadenopathy, JVD, or masses. LUNGS: Breath sounds equal, clear to auscultation bilaterally. No wheezes, and no crackles. No accessory muscle use. HEART: Regular rate and rhythm, normal S1 and S2 without murmur, rub or gallop. ABDOMEN: Soft, mild tenderness diffusely, not distended, normoactive bowel sounds, no guarding, no rebound, no masses. MUSCULOSKELETAL: No bony deformities or tenderness. No CVA tenderness. UPPER EXTREMITIES: 2+ pulses, warm, well-perfused. No clubbing. No peripheral edema. 3/5 upper ext strength, bicep/triceps/handgrip LOWER EXTREMITIES: 2+ pulses, warm, well-perfused. No calf tenderness. No peripheral edema. 3/5 lower ext strength at hip/knee/ankle NEUROLOGICAL: Cranial nerves II-XII intact. Normal speech. Active Medications Acetaminophen (Tylenol -) 1,000 mg PO Q6H PRN PRN Reason: FEVER OR PAIN Atorvastatin Calcium (Lipitor -) 10 mg PO HS [facility] Diltiazem HCl (Cardizem Cd -) 120 mg PO DAILY [facility] Duloxetine HCl (Cymbalta -) 30 mg PO BID [facility] Enoxaparin Sodium (Lovenox -) 40 mg SQ DAILY [facility] Sodium Chloride (Normal Saline -) 1,000 mls @ 100 mls/hr IV ASDIR [facility] Last Admin: 10/06/16 21:06 Dose: 100 mls/hr Lisinopril (Prinivil) 20 mg PO BID [facility] Metoprolol Succinate (Toprol Xl -) 25 mg PO DAILY [facility] Non-Formulary Medication (Alendronate Na [Fosamax (Weekly)]) 70 mg PO WEEKLY [facility] Non-Formulary Medication (Alprazolam [Xanax]) 0.25 mg PO BID [facility] Oxycodone/Acetaminophen (Percocet 5/325 -) combo PO Q4H PRN PRN Reason: MODERATE PAIN Pantoprazole Sodium (Protonix -) 40 mg PO BID [facility] Tamsulosin HCl (Flomax -) 0.4 mg PO DAILY [facility] ASSESSMENT/PLAN: 70 year old man with a history of multiple episodes of diverticulitis, HTN, osteoarthritis, osteoporosis, COPD, CKD stage 3, nephrolithiasis, and chronic back pain admitted for SIRS with lactic acidosis possible GI source. - lung CTAB, cry without effusion/infiltrate, unlikely that pna is cause of leucocytosis/lactic acidosis, CT abdomen without diverticulitis and moderate dilatation of the right renal pelvis, mild right renal hydronephrosis, no obstructing ureteral stone, u/a without signs of infx, unlikely source of infxn - observe off abx for now, 1 set bld cx drawn prior to abx in ED, if fever spikes draw bld cx x2 - flu nasal swab to r/o flu given cough. #r/o C.diff in setting of lose bm, with recent abx use - cdiff ag & toxin pending - IVF NS #lactic acidosis - IVF - repeat labs #TODD (cr 1.7, baseline 1.3) in the setting of poor po intake, likely pre-renal - repeat after IVF #htn - lisinopril, metoprolol #chronic pain - percocet 1 t q4hr prn #Generalized weakness, - pt would like to go to rehab, he has been unable to care for himself due to recurrent hospital visits recently - pt evaluation #Diet - low sodium #DVT; heparin TID Visit type - Emergency Visit Emergency Visit: No - New Patient This patient is new to me today: No - Critical Care Critical Care patient: No
--- NOTE | 2016-10-06 12:24 | PN ---
Teaching Attending Note Name of Resident: Audra Harrington ATTENDING PHYSICIAN STATEMENT I saw and evaluated the patient. I reviewed the resident's note and discussed the case with the resident. I agree with the resident's findings and plan as documented. Chart, data, and imaging reviewed SUBJECTIVE: 70 year old man with a history of multiple episodes of diverticulitis, HTN, osteoarthritis, osteoporosis, COPD, CKD stage 3, nephrolithiasis, and chronic back pain Recently completed a course of levaquin for pneumonia, presented complaining of diarrhea, nausea and vomiting for one day. Also some intermittent cough. Denied fevers, chills. OBJECTIVE: Afebrile, tachycardic General- AAox3, NAD HEENT - dry oral mucosa, no sinus tenderness NEck supple CV s1+s2+ RRR CHest -CTA b/l ABdomen- soft some mild LLQ tenderness, no rebound tenderness, no masses appreciated, BS+ in 4 quadrants Ext - no edema, clubbing, or cyanosis CXR does not show any consolidation or new infiltrates suggestive of PNA. EKG shows sinus rhythm, left axis deviation, and old left bundle branch block, PVC ASSESSMENT AND PLAN: Sepsis, SIRS criteria+ with lactic acidosis, with source possible gastroenteritis. Hemodynamically and clinically stable. Should r/o Cdifficile in the setting of recent antibiotic use. UA is negative and CXR is not suggestive of a new pneumonia. CT of abdomen shows no acute findings. #Sepsis -likely GI source -admit to med/surg -send stool for C difficile -no antibiotics now -IVF hydration -repeat lactate -Zofran PRN if nausea/vomiting -advance diet as tolerated -if fever send 2 sets of blood cultures -send flu swab Continue home medications for chronic medical problems DVT ppx -low risk for DVT -ICDs b/l
[2016-10-06] MEDS: SODIUM CHLORIDE 1,000 ML IV SCH ×2 (14:29→21:06)
[2016-10-06] MEDS ORDERED: ONDANSETRON 4 MG/2 ML VIAL IVPB ONE (16:32)
--- NOTE | 2016-10-06 19:30 | EKG ---
Test Reason : Blood Pressure : / mmHG Vent. Rate : 094 BPM Atrial Rate : 094 BPM P-R Int : 148 ms QRS Dur : 126 ms QT Int : 374 ms P-R-T Axes : 024 -77 099 degrees QTc Int : 467 ms POOR DATA QUALITY, INTERPRETATION MAY BE ADVERSELY AFFECTED SINUS RHYTHM WITH OCCASIONAL PREMATURE VENTRICULAR COMPLEXES LEFT AXIS DEVIATION LEFT BUNDLE BRANCH BLOCK ABNORMAL ECG WHEN COMPARED WITH ECG OF 23-SEP-2016 14:14, NO SIGNIFICANT CHANGE WAS FOUND Confirmed by KIERA FERRIS MD ([id number]) on 10/06/2016 7:29:41 PM Referred By: Confirmed By:KIERA FERRIS MD
[2016-10-06] MEDS ORDERED: ACETAMINOPHEN 500 MG TABLET (FP) PO PRN (21:10)
[2016-10-06] MEDS ORDERED: OXYCODONE/APAP 5/325MG COMBO TABLET PO PRN (22:13)
[2016-10-06] MEDS ORDERED: PATIENT'S OWN MEDICATION (NON-FORMULARY) (Alendronate Na [Fosamax (Weekly)] 70 MG) PO SCH (22:15)
[2016-10-06] MEDS ORDERED: ACETAMINOPHEN 325 MG TABLET (FP) PO PRN (22:19)
[2016-10-06] MEDS: oxyCODONE HCL 5 MG TABLET PO PRN (23:52)
[2016-10-07] MEDS ORDERED: ALPRAZolam 0.25 MG TABLET PO ONE (02:58)
[2016-10-07] MEDS: HEPARIN NA (PORCINE) 5,000 UNITS/ML 1ML VIAL SQ SCH ×3 (05:58→23:11)
[2016-10-07] MEDS: PANTOPRAZOLE 40 MG TABLET (FP) PO SCH ×3 (05:59→23:10)
[2016-10-07 08:50] LABS: BASOPHIL 0.4 % (0-2.0); EOSINOPHIL 2.6 % (0-4.5); MCH 33.7 pg (25.7-33.7); MCHC 33.4 g/dl (32.0-35.9); MEAN CELL VOLUME 100.8 fl (80-96); NEUTROPHILS 79.7 % (42.8-82.8); PLATELET COUNT 136 K/MM3 (134-434); RDW 14.8 % (11.9-15.9); WHITE BLOOD COUNT 10.4 K/mm3 (4.0-10.0)
[2016-10-07 08:59] LABS: CALCIUM 8.2 mg/dL (8.5-10.1); CREATININE 1.4 mg/dL (0.7-1.3)
--- NOTE | 2016-10-07 09:36 | PN ---
Teaching Attending Note Name of Resident: Audra Harrington ATTENDING PHYSICIAN STATEMENT I saw and evaluated the patient. I reviewed the resident's note and discussed the case with the resident. I agree with the resident's findings and plan as documented. Comfortable with no acute distress. No diarrhea at this time. Vital Signs Temperature 98.4 F 10/07/16 06:00 Pulse Rate 77 10/07/16 06:00 Respiratory Rate 18 10/07/16 06:00 Blood Pressure 134/61 10/07/16 06:00 O2 Sat by Pulse Oximetry (%) 95 10/06/16 21:00 CBCD WBC 10.4 K/mm3 (4.0-10.0) H 10/07/16 06:45 RBC 3.59 M/mm3 (4.00-5.60) L 10/07/16 06:45 Hgb 12.1 GM/dL (11.7-16.9) D 10/07/16 06:45 Hct 36.1 % (35.4-49) D 10/07/16 06:45 MCV 100.8 fl (80-96) H 10/07/16 06:45 MCHC 33.4 g/dl (32.0-35.9) 10/07/16 06:45 RDW 14.8 % (11.9-15.9) 10/07/16 06:45 Plt Count 136 K/MM3 (134-434) D 10/07/16 06:45 MPV 9.0 fl (7.5-11.1) 10/07/16 06:45 CMP Sodium 142 mmol/L (136-145) 10/07/16 06:45 Potassium 3.9 mmol/L (3.5-5.1) 10/07/16 06:45 Chloride 107 mmol/L (98-107) 10/07/16 06:45 Carbon Dioxide 24 mmol/L (21-32) 10/07/16 06:45 Anion Gap 11 (8-16) 10/07/16 06:45 BUN 20 mg/dL (7-18) H 10/07/16 06:45 Creatinine 1.4 mg/dL (0.7-1.3) H 10/07/16 06:45 Creat Clearance w eGFR 39.71 (>60) 10/06/16 06:00 Random Glucose 89 mg/dL (74-106) D 10/07/16 06:45 Calcium 8.2 mg/dL (8.5-10.1) L 10/07/16 06:45 Total Bilirubin 0.4 mg/dL (0.2-1.0) D 10/06/16 06:00 AST 14 U/L (15-37) L 10/06/16 06:00 ALT 31 U/L (12-78) 10/06/16 06:00 Alkaline Phosphatase 56 U/L (45-117) 10/06/16 06:00 Total Protein 6.7 g/dl (6.4-8.2) 10/06/16 06:00 Albumin 4.1 g/dl (3.4-5.0) 10/06/16 06:00 CARDIAC ENZYMES Troponin I < 0.02 ng/ml (0.00-0.05) 10/06/16 06:00 Current Medications Generic Name Dose Route Start Last Admin Trade Name Freq PRN Reason Stop Dose Admin Acetaminophen 1,000 mg 10/06/16 21:10 10/06/16 22:59 Tylenol - PO 1,000 mg Q6H PRN Administration FEVER OR PAIN Acetaminophen 325 mg 10/06/16 22:19 Tylenol - PO 10/09/16 22:18 Q4H PRN PAIN Alprazolam 0.25 mg 10/07/16 10:00 Xanax - PO BID [facility] Atorvastatin Calcium 10 mg 10/07/16 22:00 Lipitor - PO HS [facility] Benzocaine/Menthol 1 each 10/07/16 05:10 Cepacol Lozenge - MM PRN PRN SORE THROAT Diltiazem HCl 120 mg 10/07/16 10:00 Cardizem Cd - PO DAILY [facility] Duloxetine HCl 30 mg 10/07/16 10:00 Cymbalta - PO BID [facility] Heparin Sodium (Porcine) 5,000 unit 10/07/16 06:00 10/07/16 05:58 Heparin - SQ 5,000 unit TID [facility] Administration Sodium Chloride 1,000 mls @ 100 mls/hr 10/06/16 11:30 10/06/16 21:06 Normal Saline - IV 100 mls/hr ASDIR [facility] Administration Lisinopril 20 mg 10/07/16 10:00 Prinivil PO BID [facility] Metoprolol Succinate 25 mg 10/07/16 10:00 Toprol Xl - PO DAILY [facility] Oxycodone HCl 5 mg 10/06/16 22:19 10/06/16 23:52 Roxicodone - PO 5 mg Q4H PRN Administration PAIN Pantoprazole Sodium 40 mg 10/07/16 06:00 10/07/16 05:59 Protonix - PO 40 mg BID [facility] Administration Tamsulosin HCl 0.4 mg 10/07/16 10:00 Flomax - PO DAILY [facility] Zolpidem Tartrate 5 mg 10/07/16 22:00 Ambien - PO HS PRN INSOMNIA Home Medications Medication Instructions Recorded Atorvastatin Ca [Lipitor] 10 mg PO HS #30 tablet 11/23/14 Lisinopril [Prinivil] 20 mg PO BID 06/24/15 Trazodone HCl [Desyrel -] 50 mg PO HS PRN 07/22/15 Pantoprazole Sodium [Protonix -] 40 mg PO BID #60 tablet.ec 07/26/15 Duloxetine HCl [Cymbalta -] 30 mg PO BID #60 capsule.dr 03/29/16 Metoprolol Succinate [Toprol XL -] 25 mg PO DAILY #30 tab.sr.24h 03/29/16 Alprazolam [Xanax] 0.25 mg PO BID 04/12/16 Tamsulosin HCl [Flomax -] 0.4 mg PO DAILY #30 cap.er.24h 05/24/16 Diltiazem Cd [Cardizem Cd -] 120 mg PO DAILY #30 cap.cd.24h 05/29/16 Docusate Sodium [Colace -] 100 mg PO BID #60 capsule 06/07/16 Alendronate Na [Fosamax (Weekly)] 70 mg PO WEEKLY 08/22/16 Oxycodone HCl/Acetaminophen 1 - 2 tab PO Q4H 08/22/16 [Percocet 5-325 mg Tablet] Microbiology 10/06/16 09:25 Blood - Peripheral Venous Blood Culture - Preliminary NO GROWTH OBTAINED AFTER 24 HOURS, INCUBATION TO CONTINUE FOR 4 DAYS. 10/06/16 09:25 Blood - Peripheral Venous Blood Culture - Preliminary NO GROWTH OBTAINED AFTER 24 HOURS, INCUBATION TO CONTINUE FOR 4 DAYS. 10/06/16 22:30 Nasopharyngeal Swab Influenza Types A,B Antigen (SABA) - Final 10/06/16 22:30 Nasopharyngeal Swab - Final ASSESSMENT AND PLAN: Patient is a 70 year old man with a history of multiple episodes of diverticulitis, HTN, osteoarthritis, osteoporosis, COPD, CKD stage 3, nephrolithiasis, and chronic back pain admitted for SIRS with lactic acidosis possible GI source. # Possible cdiff since patient was on so many medications , but patient had no BM or diarrhea yet will monitor #lactic acidosis - resolved s/p IVF #TODD (baseline 1.3) in the setting of poor po intake, likely pre-renal, is 1.4 creatinine now #HTN lisinopril, metoprolol continue #chronic pain continue percocet will add Miralax for constipation #Generalized weakness continue pt evaluation; walked 100ft, recommended to use rolling walker; patient owns a rolling walker #Diet - low sodium #DVT; heparin TID
--- NOTE | 2016-10-07 09:42 | PN ---
Physical Exam: SUBJECTIVE: Patient seen and examined had no bowel movements since admission. feels better. OBJECTIVE: Vital Signs Period Temp Pulse Resp BP Sys/Suazo Pulse Ox Last 24 Hr 98.4 F-100 F 77-108 18-20 105-141/61-89 95-97 GENERAL: The patient is awake, alert, and fully oriented, in no acute distress. HEAD: Normal with no signs of trauma. EYES: PERRL, extraocular movements intact, sclera anicteric ENT: moist mucous membranes. LUNGS: Breath sounds equal, clear to auscultation bilaterally, no wheezes, no crackles, no accessory muscle use. HEART: Regular rate and rhythm, S1, S2 without murmur ABDOMEN: Soft, nontender, nondistended, normoactive bowel sounds, no guarding, n EXTREMITIES: 2+ pulses, warm, well-perfused, no edema. NEUROLOGICAL: Normal speech, gait not observed. PSYCH: Normal mood, normal affect. Laboratory Results - last 24 hr 10/06/16 10/07/16 10/07/16 11:15 06:05 06:45 WBC 10.4 H RBC 3.59 L Hgb 12.1 D Hct 36.1 D MCV 100.8 H MCHC 33.4 RDW 14.8 Plt Count 136 D MPV 9.0 Neutrophils % 79.7 Lymphocytes % 11.7 Monocytes % 5.6 D Eosinophils % 2.6 Basophils % 0.4 Sodium Potassium Chloride Carbon Dioxide Anion Gap BUN Creatinine Random Glucose Lactic Acid 3.656 H* 1.770 Calcium 10/07/16 06:45 WBC RBC Hgb Hct MCV MCHC RDW Plt Count MPV Neutrophils % Lymphocytes % Monocytes % Eosinophils % Basophils % Sodium 142 Potassium 3.9 Chloride 107 Carbon Dioxide 24 Anion Gap 11 BUN 20 H Creatinine 1.4 H Random Glucose 89 D Lactic Acid Calcium 8.2 L Active Medications Acetaminophen (Tylenol -) 1,000 mg PO Q6H PRN PRN Reason: FEVER OR PAIN Last Admin: 10/06/16 22:59 Dose: 1,000 mg Acetaminophen (Tylenol -) 325 mg PO Q4H PRN PRN Reason: PAIN Stop: 10/09/16 22:18 Alprazolam (Xanax -) 0.25 mg PO BID [facility] Last Admin: 10/07/16 10:41 Dose: 0.25 mg Atorvastatin Calcium (Lipitor -) 10 mg PO HS [facility] Benzocaine/Menthol (Cepacol Lozenge -) 1 each MM PRN PRN PRN Reason: SORE THROAT Last Admin: 10/07/16 10:42 Dose: 1 each Diltiazem HCl (Cardizem Cd -) 120 mg PO DAILY [facility] Last Admin: 10/07/16 10:40 Dose: 120 mg Duloxetine HCl (Cymbalta -) 30 mg PO BID [facility] Last Admin: 10/07/16 10:41 Dose: 30 mg Heparin Sodium (Porcine) (Heparin -) 5,000 unit SQ TID [facility] Last Admin: 10/07/16 14:55 Dose: 5,000 unit Sodium Chloride (Normal Saline -) 1,000 mls @ 100 mls/hr IV ASDIR [facility] Last Admin: 10/07/16 10:41 Dose: 100 mls/hr Lisinopril (Prinivil) 20 mg PO BID [facility] Last Admin: 10/07/16 10:41 Dose: 20 mg Metoprolol Succinate (Toprol Xl -) 25 mg PO DAILY [facility] Last Admin: 10/07/16 10:41 Dose: 25 mg Oxycodone HCl (Roxicodone -) 5 mg PO Q4H PRN PRN Reason: PAIN Last Admin: 10/06/16 23:52 Dose: 5 mg Pantoprazole Sodium (Protonix -) 40 mg PO BID [facility] Last Admin: 10/07/16 10:41 Dose: 40 mg Tamsulosin HCl (Flomax -) 0.4 mg PO DAILY [facility] Last Admin: 10/07/16 10:40 Dose: 0.4 mg Zolpidem Tartrate (Ambien -) 5 mg PO HS PRN PRN Reason: INSOMNIA ASSESSMENT/PLAN: 70 year old man with a history of multiple episodes of diverticulitis, HTN, osteoarthritis, osteoporosis, COPD, CKD stage 3, nephrolithiasis, and chronic back pain admitted for SIRS with lactic acidosis possible GI source. - flu swab negative, no fevers, - observe off abx for now, 1 set bld cx drawn prior to abx in ED- NGTD, if fever spikes draw bld cx x2 - urine cx likley contaminant #r/o C.diff in setting of lose bm, with recent abx use- however pt has not had any bowel movement since admission, unlikely to be C-diff - cdiff ag & toxin pending #lactic acidosis - resolved - dc IVF #TODD (baseline 1.3) in the setting of poor po intake, likely pre-renal, improved to 1.4 #htn - lisinopril, metoprolol #chronic pain - percocet 1 t q4hr prn #Generalized weakness, - pt changed his mind about rehab, wants to go home. - pt evaluation; walked 100ft, recommended to use rolling walker; patient owns a rolling walker #Diet - low sodium #DVT; heparin TID Dispo: dc tomorrow if continues to be stable Visit type - Emergency Visit Emergency Visit: No - New Patient This patient is new to me today: No - Critical Care Critical Care patient: No
[2016-10-07] MEDS ORDERED: ENOXAPARIN NA (PORCINE) 40 MG/0.4 ML DISP.SYRIN SQ SCH (10:00)
[2016-10-07] MEDS: TAMSULOSIN HCL 0.4 MG CAP.ER.24H (FP) PO SCH (10:40)
[2016-10-07] MEDS: DULoxetine HCL 30 MG CAPSULE.DR (FP) PO SCH ×2 (10:41→23:10)
[2016-10-07] MEDS: SODIUM CHLORIDE 1,000 ML IV SCH (10:41)
[2016-10-07] MEDS: LISINOPRIL 20 MG TABLET (FP) PO SCH ×2 (10:41→23:11)
[2016-10-07] MEDS: METOPROLOL SUCCINATE 25 MG TAB.SR.24H (FP) PO SCH (10:41)
[2016-10-07] MEDS: ALPRAZolam 0.25 MG TABLET PO SCH ×2 (10:41→23:11)
[2016-10-07] MEDS: BENZOCAINE/MENTH/CETYLPYRD CL 1 EACH LOZENGE MM PRN (10:42)
[2016-10-07] MEDS ORDERED: ONDANSETRON 4 MG/2 ML VIAL IVPB ONE (17:10)
[2016-10-07] MEDS ORDERED: BISACODYL 10 MG SUPP.RECT PR ONE (22:06)
[2016-10-07] MEDS: ATORVASTATIN CA 10 MG TABLET (FP) PO SCH (23:11)
[2016-10-07] MEDS: ZOLPIDEM TARTRATE 5 MG TABLET PO PRN (23:18)
[2016-10-08] MEDS: HEPARIN NA (PORCINE) 5,000 UNITS/ML 1ML VIAL SQ SCH ×3 (06:52→21:24)
[2016-10-08] MEDS ORDERED: POLYETHYLENE GLYCOL 3350 119 GM BTL PO ONE (08:15)
[2016-10-08] MEDS ORDERED: DOCUSATE SODIUM 100 MG CAPSULE (FP) PO ONE (08:15)
[2016-10-08 08:46] LABS: MCH 33.4 pg (25.7-33.7); MCHC 33.7 g/dl (32.0-35.9); MEAN CELL VOLUME 99.3 fl (80-96); MEAN PLT VOLUME 8.6 fl (7.5-11.1); PLATELET COUNT 151 K/MM3 (134-434); WHITE BLOOD COUNT 10.1 K/mm3 (4.0-10.0)
[2016-10-08 09:14] LABS: CALCIUM 8.5 mg/dL (8.5-10.1); CREATININE 1.3 mg/dL (0.7-1.3)
--- NOTE | 2016-10-08 09:33 | MSN ---
Progress Note (short form) - Note Progress Note: Saw patient this AM. Patient was complaining of lower abdominal pain and persistent nausea last night around 8pm. Patient did not eat last night and still has not had a BM since admission. This morning, patient states that the nausea has subsided but still complains of lower abdominal pain on light palpation. Miralax, 17gm PO once and Lactulose, 20 g liquid once have been given for persistent constipation. Will continue to monitor patient's vitals and BMs. Current Medications Generic Name Dose Route Start Last Admin Trade Name Freq PRN Reason Stop Dose Admin Acetaminophen 1,000 mg 10/06/16 21:10 10/06/16 22:59 Tylenol - PO 1,000 mg Q6H PRN Administration FEVER OR PAIN Acetaminophen 325 mg 10/06/16 22:19 Tylenol - PO 10/09/16 22:18 Q4H PRN PAIN Alprazolam 0.25 mg 10/07/16 10:00 10/08/16 09:39 Xanax - PO 0.25 mg BID [facility] Administration Atorvastatin Calcium 10 mg 10/07/16 22:00 10/07/16 23:11 Lipitor - PO 10 mg HS [facility] Administration Benzocaine/Menthol 1 each 10/07/16 05:10 10/08/16 09:40 Cepacol Lozenge - MM 1 each PRN PRN Administration SORE THROAT Diltiazem HCl 120 mg 10/07/16 10:00 10/08/16 09:39 Cardizem Cd - PO 120 mg DAILY [facility] Administration Duloxetine HCl 30 mg 10/07/16 10:00 10/08/16 09:39 Cymbalta - PO 30 mg BID [facility] Administration Heparin Sodium (Porcine) 5,000 unit 10/07/16 06:00 10/08/16 06:52 Heparin - SQ 5,000 unit TID [facility] Administration Lisinopril 20 mg 10/07/16 10:00 10/08/16 09:39 Prinivil PO 20 mg BID [facility] Administration Metoprolol Succinate 25 mg 10/07/16 10:00 10/08/16 09:39 Toprol Xl - PO 25 mg DAILY [facility] Administration Oxycodone HCl 5 mg 10/06/16 22:19 10/06/16 23:52 Roxicodone - PO 5 mg Q4H PRN Administration PAIN Pantoprazole Sodium 40 mg 10/07/16 06:00 10/08/16 09:39 Protonix - PO 40 mg BID [facility] Administration Tamsulosin HCl 0.4 mg 10/07/16 10:00 10/08/16 09:39 Flomax - PO 0.4 mg DAILY [facility] Administration Zolpidem Tartrate 5 mg 10/07/16 22:00 10/07/16 23:18 Ambien - PO 5 mg HS PRN Administration INSOMNIA Last Vital Signs Temp Pulse Resp BP Pulse Ox 98.9 F 77 18 125/62 95 10/08/16 06:00 10/08/16 06:00 10/08/16 06:00 10/08/16 06:00 10/07/16 21:00 GENERAL: Alert, oriented. Patient in no apparent distress HEAD: Normal with no signs of trauma. EYES: PERRL, extraocular movements intact, sclera anicteric, conjunctiva clear. No ptosis. ENT: Ears normal, nares patent, oropharynx clear without exudates, moist mucous membranes. NECK: Trachea midline, full range of motion, supple. LUNGS: Breath sounds equal, clear to auscultation bilaterally, no wheezes, no crackles, no accessory muscle use. HEART: Regular rate and rhythm, S1, S2 without murmur, rub or gallop. ABDOMEN: Soft, tender on light palpation, normoactive bowel sounds, no guarding , no rebound, no hepatosplenomegaly, no masses. EXTREMITIES: 2+ pulses, warm, well-perfused, no edema. NEUROLOGICAL: Cranial nerves II through XII grossly intact. Normal speech, gait not observed. PSYCH: Normal mood, normal affect. SKIN: Warm, dry, normal turgor, no rashes or lesions noted ASSESSMENT AND PLAN: Patient is a 71 y/o male with previous history of HTN, COPD, Stage 3 CKD, Osteoporosis, Osteoarthritis, and Hyperlipidemia admitted for constipation secondary to lower abdominal pain. Constipation: Miralax 17 gm PO ONCE Lactulose 20 g Liquid ONCE Abdominal Pain: Pantoprazole 40 mg PO BID Lactic Acidosis: Resolved s/p IVF HTN: Continue lisinopril 20 mg PO BID and metoprolol 25 mg PO Daily [facility] Diet: Continue low sodium diet DVT: Continue heparin 5,000 unit TID Disposition: Continue to monitor patient for vitals and BMs
[2016-10-08] MEDS: PANTOPRAZOLE 40 MG TABLET (FP) PO SCH ×2 (09:39→21:25)
[2016-10-08] MEDS: METOPROLOL SUCCINATE 25 MG TAB.SR.24H (FP) PO SCH (09:39)
[2016-10-08] MEDS: ALPRAZolam 0.25 MG TABLET PO SCH ×2 (09:39→21:25)
[2016-10-08] MEDS: DULoxetine HCL 30 MG CAPSULE.DR (FP) PO SCH ×2 (09:39→21:25)
[2016-10-08] MEDS: LISINOPRIL 20 MG TABLET (FP) PO SCH ×2 (09:39→21:25)
[2016-10-08] MEDS: TAMSULOSIN HCL 0.4 MG CAP.ER.24H (FP) PO SCH (09:39)
[2016-10-08] MEDS: BENZOCAINE/MENTH/CETYLPYRD CL 1 EACH LOZENGE MM PRN (09:40)
[2016-10-08] MEDS ORDERED: LACTULOSE 20 GM/30 ML UDC (FOR ORAL USE ONLY) PO ONE (11:12)
--- NOTE | 2016-10-08 11:57 | PN ---
Physical Exam: SUBJECTIVE: Patient seen and examined c/o constipation and feeling weak. has not had bowel movement since admission. has good appetite denies chest pain, cough, fever. would like to go home at discharge, no longer wants rehab. declined [facility] and [facility] services, he has "used all their services and they are terrible." OBJECTIVE: Vital Signs Period Temp Pulse Resp BP Sys/Suazo Pulse Ox Last 24 Hr 98 F-98.9 F 75-85 18-20 125-141/62-82 95 GENERAL: The patient is awake, alert, and fully oriented, in no acute distress. HEAD: Normal with no signs of trauma. EYES: PERRL, extraocular movements intact, sclera anicteric, conjunctiva clear. No ptosis. ENT: oropharynx clear without exudates, moist mucous membranes. LUNGS: Breath sounds equal, clear to auscultation bilaterally, no wheezes, no crackles, no accessory muscle use. HEART: Regular rate and rhythm, S1, S2 without murmur, rub or gallop. ABDOMEN: Soft, nontender, nondistended, normoactive bowel sounds, no guarding, no rebound EXTREMITIES: 2+ pulses, warm, well-perfused, no edema. Laboratory Results - last 24 hr 10/08/16 10/08/16 08:30 08:30 WBC 10.1 H RBC 3.83 L Hgb 12.8 Hct 38.0 MCV 99.3 H MCHC 33.7 RDW 14.0 Plt Count 151 MPV 8.6 Sodium 141 Potassium 3.9 Chloride 106 Carbon Dioxide 22 Anion Gap 13 BUN 14 D Creatinine 1.3 Random Glucose 106 Calcium 8.5 Active Medications Acetaminophen (Tylenol -) 1,000 mg PO Q6H PRN PRN Reason: FEVER OR PAIN Last Admin: 10/06/16 22:59 Dose: 1,000 mg Acetaminophen (Tylenol -) 325 mg PO Q4H PRN PRN Reason: PAIN Stop: 10/09/16 22:18 Alprazolam (Xanax -) 0.25 mg PO BID [facility] Last Admin: 10/08/16 09:39 Dose: 0.25 mg Atorvastatin Calcium (Lipitor -) 10 mg PO HS [facility] Last Admin: 10/07/16 23:11 Dose: 10 mg Benzocaine/Menthol (Cepacol Lozenge -) 1 each MM PRN PRN PRN Reason: SORE THROAT Last Admin: 10/08/16 09:40 Dose: 1 each Diltiazem HCl (Cardizem Cd -) 120 mg PO DAILY [facility] Last Admin: 10/08/16 09:39 Dose: 120 mg Duloxetine HCl (Cymbalta -) 30 mg PO BID [facility] Last Admin: 10/08/16 09:39 Dose: 30 mg Heparin Sodium (Porcine) (Heparin -) 5,000 unit SQ TID [facility] Last Admin: 10/08/16 14:55 Dose: 5,000 unit Lisinopril (Prinivil) 20 mg PO BID [facility] Last Admin: 10/08/16 09:39 Dose: 20 mg Metoprolol Succinate (Toprol Xl -) 25 mg PO DAILY [facility] Last Admin: 10/08/16 09:39 Dose: 25 mg Oxycodone HCl (Roxicodone -) 5 mg PO Q4H PRN PRN Reason: PAIN Last Admin: 10/06/16 23:52 Dose: 5 mg Pantoprazole Sodium (Protonix -) 40 mg PO BID [facility] Last Admin: 10/08/16 09:39 Dose: 40 mg Tamsulosin HCl (Flomax -) 0.4 mg PO DAILY [facility] Last Admin: 10/08/16 09:39 Dose: 0.4 mg Zolpidem Tartrate (Ambien -) 5 mg PO HS PRN PRN Reason: INSOMNIA Last Admin: 10/07/16 23:18 Dose: 5 mg Microbiology 10/06/16 09:45 Urine - Urine Clean Catch Urine Culture - Final Staphylococcus Simulans RESISTENT TO penicillins and cephalosporins, Sensitive to daptomycin, gentamycin, linezolid, nitrofurantoin, vanc 10/06/16 09:25 Blood - Peripheral Venous Blood Culture - Preliminary NO GROWTH OBTAINED AFTER 48 HOURS, INCUBATION TO CONTINUE FOR 3 DAYS. 10/06/16 09:25 Blood - Peripheral Venous Blood Culture - Preliminary NO GROWTH OBTAINED AFTER 48 HOURS, INCUBATION TO CONTINUE FOR 3 DAYS. ASSESSMENT/PLAN: 70 year old man with a history of multiple episodes of diverticulitis, HTN, osteoarthritis, osteoporosis, COPD, CKD stage 3, nephrolithiasis, and chronic back pain admitted for SIRS with lactic acidosis possible GI source. - flu swab negative, no fevers - urine cx with Staph Simulans however UA negative and pt has no dysuria, observe off abx #constipation - lactulose, miralax #TODD (baseline 1.3) resolved #htn - lisinopril, metoprolol #chronic pain - percocet 1 t q4hr prn #Generalized weakness, - pt changed his mind about rehab, wants to go home. - pt evaluation; walked 100ft, recommended to use rolling walker; patient owns a rolling walker #Diet - low sodium #DVT; heparin TID Dispo: dc tomorrow if continues to be stable Visit type - Emergency Visit Emergency Visit: No - New Patient This patient is new to me today: No - Critical Care Critical Care patient: No
--- NOTE | 2016-10-08 18:19 | PN ---
Teaching Attending Note Name of Resident: Audra Harrington ATTENDING PHYSICIAN STATEMENT I saw and evaluated the patient. I reviewed the resident's note and discussed the case with the resident. I agree with the resident's findings and plan as documented. Patient has not had bowel movement yet, and does not feel well. Vital Signs Temperature 99.3 F 10/08/16 14:17 Pulse Rate 72 10/08/16 14:17 Respiratory Rate 20 10/08/16 14:17 Blood Pressure 122/74 10/08/16 14:17 O2 Sat by Pulse Oximetry (%) 95 10/07/16 21:00 CBCD WBC 10.1 K/mm3 (4.0-10.0) H 10/08/16 08:30 RBC 3.83 M/mm3 (4.00-5.60) L 10/08/16 08:30 Hgb 12.8 GM/dL (11.7-16.9) 10/08/16 08:30 Hct 38.0 % (35.4-49) 10/08/16 08:30 MCV 99.3 fl (80-96) H 10/08/16 08:30 MCHC 33.7 g/dl (32.0-35.9) 10/08/16 08:30 RDW 14.0 % (11.9-15.9) 10/08/16 08:30 Plt Count 151 K/MM3 (134-434) 10/08/16 08:30 MPV 8.6 fl (7.5-11.1) 10/08/16 08:30 CMP Sodium 141 mmol/L (136-145) 10/08/16 08:30 Potassium 3.9 mmol/L (3.5-5.1) 10/08/16 08:30 Chloride 106 mmol/L (98-107) 10/08/16 08:30 Carbon Dioxide 22 mmol/L (21-32) 10/08/16 08:30 Anion Gap 13 (8-16) 10/08/16 08:30 BUN 14 mg/dL (7-18) D 10/08/16 08:30 Creatinine 1.3 mg/dL (0.7-1.3) 10/08/16 08:30 Creat Clearance w eGFR 39.71 (>60) 10/06/16 06:00 Random Glucose 106 mg/dL (74-106) 10/08/16 08:30 Calcium 8.5 mg/dL (8.5-10.1) 10/08/16 08:30 Total Bilirubin 0.4 mg/dL (0.2-1.0) D 10/06/16 06:00 AST 14 U/L (15-37) L 10/06/16 06:00 ALT 31 U/L (12-78) 10/06/16 06:00 Alkaline Phosphatase 56 U/L (45-117) 10/06/16 06:00 Total Protein 6.7 g/dl (6.4-8.2) 10/06/16 06:00 Albumin 4.1 g/dl (3.4-5.0) 10/06/16 06:00 CARDIAC ENZYMES Troponin I < 0.02 ng/ml (0.00-0.05) 10/06/16 06:00 Current Medications Generic Name Dose Route Start Last Admin Trade Name Freq PRN Reason Stop Dose Admin Acetaminophen 1,000 mg 10/06/16 21:10 10/06/16 22:59 Tylenol - PO 1,000 mg Q6H PRN Administration FEVER OR PAIN Acetaminophen 325 mg 10/06/16 22:19 Tylenol - PO 10/09/16 22:18 Q4H PRN PAIN Alprazolam 0.25 mg 10/07/16 10:00 10/08/16 09:39 Xanax - PO 0.25 mg BID SIENA Administration Atorvastatin Calcium 10 mg 10/07/16 22:00 10/07/16 23:11 Lipitor - PO 10 mg HS SIENA Administration Benzocaine/Menthol 1 each 10/07/16 05:10 10/08/16 09:40 Cepacol Lozenge - MM 1 each PRN PRN Administration SORE THROAT Diltiazem HCl 120 mg 10/07/16 10:00 10/08/16 09:39 Cardizem Cd - PO 120 mg DAILY SIENA Administration Duloxetine HCl 30 mg 10/07/16 10:00 10/08/16 09:39 Cymbalta - PO 30 mg BID SIENA Administration Heparin Sodium (Porcine) 5,000 unit 10/07/16 06:00 10/08/16 14:55 Heparin - SQ 5,000 unit TID SIENA Administration Lisinopril 20 mg 10/07/16 10:00 10/08/16 09:39 Prinivil PO 20 mg BID SIENA Administration Metoprolol Succinate 25 mg 10/07/16 10:00 10/08/16 09:39 Toprol Xl - PO 25 mg DAILY SIENA Administration Oxycodone HCl 5 mg 10/06/16 22:19 10/06/16 23:52 Roxicodone - PO 5 mg Q4H PRN Administration PAIN Pantoprazole Sodium 40 mg 10/07/16 06:00 10/08/16 09:39 Protonix - PO 40 mg BID SIENA Administration Tamsulosin HCl 0.4 mg 10/07/16 10:00 10/08/16 09:39 Flomax - PO 0.4 mg DAILY SIENA Administration Zolpidem Tartrate 5 mg 10/07/16 22:00 10/07/16 23:18 Ambien - PO 5 mg HS PRN Administration INSOMNIA Home Medications Medication Instructions Recorded Atorvastatin Ca [Lipitor] 10 mg PO HS #30 tablet 11/23/14 Lisinopril [Prinivil] 20 mg PO BID 06/24/15 Trazodone HCl [Desyrel -] 50 mg PO HS PRN 07/22/15 Pantoprazole Sodium [Protonix -] 40 mg PO BID #60 tablet.ec 07/26/15 Duloxetine HCl [Cymbalta -] 30 mg PO BID #60 capsule. 03/29/16 Metoprolol Succinate [Toprol XL -] 25 mg PO DAILY #30 tab.sr.24h 03/29/16 Alprazolam [Xanax] 0.25 mg PO BID 04/12/16 Tamsulosin HCl [Flomax -] 0.4 mg PO DAILY #30 cap.er.24h 05/24/16 Diltiazem Cd [Cardizem Cd -] 120 mg PO DAILY #30 cap.cd.24h 05/29/16 Docusate Sodium [Colace -] 100 mg PO BID #60 capsule 06/07/16 Alendronate Na [Fosamax (Weekly)] 70 mg PO WEEKLY 08/22/16 Oxycodone HCl/Acetaminophen 1 - 2 tab PO Q4H 08/22/16 [Percocet 5-325 mg Tablet] ASSESSMENT AND PLAN: Patient is a 70 year old man with a history of multiple episodes of diverticulitis, HTN, osteoarthritis, osteoporosis, COPD, CKD stage 3, nephrolithiasis, and chronic back pain admitted for SIRS with lactic acidosis possible GI source. # Acute Constipation due to his pain medication added lactilos and Miralax daily #lactic acidosis - resolved s/p IVF #TODD (baseline 1.3) in the setting of poor po intake, likely pre-renal, is 1.4-- >1.3 creatinine today Back to his baseline #HTN lisinopril, metoprolol continue #chronic pain continue percocet will add Miralax for his constipation #Generalized weakness continue pt evaluation; walked 100ft, recommended to use rolling walker; patient owns a rolling walker #Diet - low sodium #DVT; heparin TID possible discharge in am
[2016-10-08] MEDS: ZOLPIDEM TARTRATE 5 MG TABLET PO PRN (21:25)
[2016-10-08] MEDS: ATORVASTATIN CA 10 MG TABLET (FP) PO SCH (21:25)
[2016-10-08] MEDS: POLYETHYLENE GLYCOL 3350 119 GM BTL PO SCH (21:26)
[2016-10-08] MEDS: oxyCODONE HCL 5 MG TABLET PO PRN (23:35)
[2016-10-09] MEDS: HEPARIN NA (PORCINE) 5,000 UNITS/ML 1ML VIAL SQ SCH ×2 (05:43→14:55)
[2016-10-09 07:24] LABS: BASOPHIL 0.5 % (0-2.0); EOSINOPHIL 4.4 % (0-4.5); MCH 33.2 pg (25.7-33.7); MCHC 33.6 g/dl (32.0-35.9); MEAN CELL VOLUME 98.9 fl (80-96); NEUTROPHILS 68.6 % (42.8-82.8); PLATELET COUNT 151 K/MM3 (134-434); RDW 13.8 % (11.9-15.9); WHITE BLOOD COUNT 8.5 K/mm3 (4.0-10.0)
--- NOTE | 2016-10-09 07:30 | PN ---
Physical Exam: SUBJECTIVE: Patient seen and examined slept well last night, no cough, chest pain, abdominal pain, palpitations, fevers, chills. no bowel movements. OBJECTIVE: Vital Signs Period Temp Pulse Resp BP Sys/Suazo Pulse Ox Last 24 Hr 97.6 F-99.4 F 72-78 18-20 122-151/74-93 94-94 GENERAL: The patient is awake, alert, and fully oriented, in no acute distress. EYES: PERRL, extraocular movements intact, sclera anicteric, conjunctiva clear. No ptosis. ENT: oropharynx clear without exudates, moist mucous membranes. LUNGS: Breath sounds equal, clear to auscultation bilaterally, no wheezes, no crackles, no accessory muscle use. HEART: Regular rate and rhythm, S1, S2 without murmur, rub or gallop. ABDOMEN: Soft, nontender, nondistended, normoactive bowel sounds, no guarding, no rebound, no hepatosplenomegaly, no masses. EXTREMITIES: 2+ pulses, warm, well-perfused, no edema. Laboratory Results - last 24 hr 10/08/16 10/08/16 08:30 08:30 WBC 10.1 H RBC 3.83 L Hgb 12.8 Hct 38.0 MCV 99.3 H MCHC 33.7 RDW 14.0 Plt Count 151 MPV 8.6 Sodium 141 Potassium 3.9 Chloride 106 Carbon Dioxide 22 Anion Gap 13 BUN 14 D Creatinine 1.3 Random Glucose 106 Calcium 8.5 Active Medications Generic Name Dose Route Start Last Admin Trade Name Freq PRN Reason Stop Dose Admin Acetaminophen 1,000 mg 10/06/16 21:10 10/06/16 22:59 Tylenol - PO 1,000 mg Q6H PRN Administration FEVER OR PAIN Acetaminophen 325 mg 10/06/16 22:19 10/08/16 23:36 Tylenol - PO 10/09/16 22:18 325 mg Q4H PRN Administration PAIN Alprazolam 0.25 mg 10/07/16 10:00 10/08/16 21:25 Xanax - PO 0.25 mg BID SIENA Administration Atorvastatin Calcium 10 mg 10/07/16 22:00 10/08/16 21:25 Lipitor - PO 10 mg HS SIENA Administration Benzocaine/Menthol 1 each 10/07/16 05:10 10/08/16 09:40 Cepacol Lozenge - MM 1 each PRN PRN Administration SORE THROAT Diltiazem HCl 120 mg 10/07/16 10:00 10/08/16 09:39 Cardizem Cd - PO 120 mg DAILY SIENA Administration Duloxetine HCl 30 mg 10/07/16 10:00 10/08/16 21:25 Cymbalta - PO 30 mg BID SIENA Administration Heparin Sodium (Porcine) 5,000 unit 10/07/16 06:00 10/09/16 05:43 Heparin - SQ 5,000 unit TID SIENA Administration Lisinopril 20 mg 10/07/16 10:00 10/08/16 21:25 Prinivil PO 20 mg BID SIENA Administration Metoprolol Succinate 25 mg 10/07/16 10:00 10/08/16 09:39 Toprol Xl - PO 25 mg DAILY SIENA Administration Oxycodone HCl 5 mg 10/06/16 22:19 10/08/16 23:35 Roxicodone - PO 5 mg Q4H PRN Administration PAIN Pantoprazole Sodium 40 mg 10/07/16 06:00 10/08/16 21:25 Protonix - PO 40 mg BID SIENA Administration Polyethylene Glycol 17 gm 10/08/16 22:00 10/08/16 21:26 Miralax (For Daily Use) - PO 17 grams BID SIENA Administration Tamsulosin HCl 0.4 mg 10/07/16 10:00 10/08/16 09:39 Flomax - PO 0.4 mg DAILY SIENA Administration Zolpidem Tartrate 5 mg 10/07/16 22:00 10/08/16 21:25 Ambien - PO 5 mg HS PRN Administration INSOMNIA ASSESSMENT/PLAN: 70 year old man with a history of multiple episodes of diverticulitis, HTN, osteoarthritis, osteoporosis, COPD, CKD stage 3, nephrolithiasis, and chronic back pain admitted for SIRS with lactic acidosis possible GI source. - flu swab negative, no fevers - urine cx with Staph Simulans however UA negative and pt has no dysuria, observe off abx #constipation - lactulose 20mg, miralax BID #TODD (baseline 1.3) resolved #htn - lisinopril, metoprolol #chronic pain - percocet 1 t q4hr prn #Generalized weakness, improved. OOB. #Diet - low sodium #DVT; heparin TID Visit type - Emergency Visit Emergency Visit: No - New Patient This patient is new to me today: No - Critical Care Critical Care patient: No
--- NOTE | 2016-10-09 09:17 | MSN ---
Progress Note (short form) - Note Progress Note: Observed patient this AM. Patient complains of no abdominal pain at present time. Last night, patient complained of minor pain but claims it went away quickly. Patient ate dinner last night and breakfast this morning. Patient still has not had a BM since admission on 10/06/16. Patient is still taking Miralax and states that he tried prune juice last night. Patient will be given Lactulose 20 mg PO on floor once. Pt will be discharged home. Current Medications Generic Name Dose Route Start Last Admin Trade Name Freq PRN Reason Stop Dose Admin Acetaminophen 1,000 mg 10/06/16 21:10 10/06/16 22:59 Tylenol - PO 1,000 mg Q6H PRN Administration FEVER OR PAIN Acetaminophen 325 mg 10/06/16 22:19 10/08/16 23:36 Tylenol - PO 10/09/16 22:18 325 mg Q4H PRN Administration PAIN Alprazolam 0.25 mg 10/07/16 10:00 10/08/16 21:25 Xanax - PO 0.25 mg BID SIENA Administration Atorvastatin Calcium 10 mg 10/07/16 22:00 10/08/16 21:25 Lipitor - PO 10 mg HS SIENA Administration Benzocaine/Menthol 1 each 10/07/16 05:10 10/08/16 09:40 Cepacol Lozenge - MM 1 each PRN PRN Administration SORE THROAT Diltiazem HCl 120 mg 10/07/16 10:00 10/08/16 09:39 Cardizem Cd - PO 120 mg DAILY SIENA Administration Duloxetine HCl 30 mg 10/07/16 10:00 10/08/16 21:25 Cymbalta - PO 30 mg BID SIENA Administration Heparin Sodium (Porcine) 5,000 unit 10/07/16 06:00 10/09/16 05:43 Heparin - SQ 5,000 unit TID SIENA Administration Lisinopril 20 mg 10/07/16 10:00 10/08/16 21:25 Prinivil PO 20 mg BID SIENA Administration Metoprolol Succinate 25 mg 10/07/16 10:00 10/08/16 09:39 Toprol Xl - PO 25 mg DAILY SIENA Administration Oxycodone HCl 5 mg 10/06/16 22:19 10/08/16 23:35 Roxicodone - PO 5 mg Q4H PRN Administration PAIN Pantoprazole Sodium 40 mg 10/07/16 06:00 10/08/16 21:25 Protonix - PO 40 mg BID SIENA Administration Polyethylene Glycol 17 gm 10/08/16 22:00 10/08/16 21:26 Miralax (For Daily Use) - PO 17 grams BID SIENA Administration Tamsulosin HCl 0.4 mg 10/07/16 10:00 10/08/16 09:39 Flomax - PO 0.4 mg DAILY SIENA Administration Zolpidem Tartrate 5 mg 10/07/16 22:00 10/08/16 21:25 Ambien - PO 5 mg HS PRN Administration INSOMNIA Laboratory Results - last 24 hr 10/09/16 05:45 WBC 8.5 RBC 3.75 L Hgb 12.5 Hct 37.1 MCV 98.9 H MCHC 33.6 RDW 13.8 Plt Count 151 MPV 9.0 Neutrophils % 68.6 Lymphocytes % 19.3 D Monocytes % 7.2 Eosinophils % 4.4 Basophils % 0.5 GENERAL: Alert, oriented. Patient in no apparent distress HEAD: Normal with no signs of trauma. EYES: PERRL, extraocular movements intact, sclera anicteric, conjunctiva clear. No ptosis. ENT: Ears normal, nares patent, oropharynx clear without exudates, moist mucous membranes. NECK: Trachea midline, full range of motion, supple. LUNGS: Breath sounds equal, clear to auscultation bilaterally, no wheezes, no crackles, no accessory muscle use. HEART: Regular rate and rhythm, S1, S2 without murmur, rub or gallop. ABDOMEN: Soft, tender on light palpation, normoactive bowel sounds, no guarding , no rebound, no hepatosplenomegaly, no masses. EXTREMITIES: 2+ pulses, warm, well-perfused, no edema. NEUROLOGICAL: Cranial nerves II through XII grossly intact. Normal speech, gait not observed. PSYCH: Normal mood, normal affect. SKIN: Warm, dry, normal turgor, no rashes or lesions noted ASSESSMENT AND PLAN: Patient is a 71 y/o male with previous history of HTN, COPD, Stage 3 CKD, Osteoporosis, Osteoarthritis, and Hyperlipidemia admitted for constipation Constipation: Patient still has not had BM since admission Miralax 17 gm PO BID Lactulose 20 mg PO ONCE Pt will be continued on home dosages of Miralax and Lactulose. Abdominal Pain: Pantoprazole 40 mg PO BID Chronic Pain: Oxycodone 5 mg PO Q4H PRN Tylenol 325 mg PO Q4H PRN Lactic Acidosis: Resolved s/p IVF HTN: Continue lisinopril 20 mg PO BID and metoprolol 25 mg PO Daily SIENA Hyperlipidemia: Continue Lipitor 10 mg PO HS SIENA Diet: Continue low sodium diet DVT: Continue heparin 5,000 unit TID Disposition: Pt to be discharged home this afternoon
[2016-10-09] MEDS ORDERED: PT OWN MED DRAWER 7, Y5N ONE (09:26)
[2016-10-09] MEDS: DULoxetine HCL 30 MG CAPSULE.DR (FP) PO SCH (09:34)
[2016-10-09] MEDS: ALPRAZolam 0.25 MG TABLET PO SCH (09:34)
[2016-10-09] MEDS: PANTOPRAZOLE 40 MG TABLET (FP) PO SCH (09:34)
[2016-10-09] MEDS: POLYETHYLENE GLYCOL 3350 119 GM BTL PO SCH (09:35)
[2016-10-09] MEDS: LISINOPRIL 20 MG TABLET (FP) PO SCH (09:35)
[2016-10-09] MEDS: TAMSULOSIN HCL 0.4 MG CAP.ER.24H (FP) PO SCH (09:35)
[2016-10-09] MEDS: METOPROLOL SUCCINATE 25 MG TAB.SR.24H (FP) PO SCH (09:35)
[2016-10-09 11:25] VITALS: TEMP 98.8
[2016-10-09] MEDS ORDERED: LACTULOSE 20 GM/30 ML UDC (FOR ORAL USE ONLY) PO ONE (14:30)
[2016-10-09 14:47] VITALS: BP 152/87; PULSE 84
--- NOTE | 2016-10-09 20:20 | PN ---
Teaching Attending Note Name of Resident: Audra Harrington ATTENDING PHYSICIAN STATEMENT I saw and evaluated the patient. I reviewed the resident's note and discussed the case with the resident. I agree with the resident's findings and plan as documented. SUBJECTIVE: no fever or chills , no abd pain . no BM today OBJECTIVE: NAD CV : RRR Lung s: CTAB ext : soila demetrius Abd : soft, NT, ND , NL BS ASSESSMENT AND PLAN: Patient is a 70 year old man with a history of multiple episodes of diverticulitis, HTN, osteoarthritis, osteoporosis, COPD, CKD stage 3, nephrolithiasis, and chronic back pain admitted for SIRS with lactic acidosis possible GI source. 1- constipation : refused treatment for constipation today. will give aggressive bowel regimen at home 2- Lactic acid elevation , no source of infection found ( no UTI sx although low colony count on cx, no diverticulitis or PNA ) resolved 3- TODD : now at base line 4- HTN: meds 5- R hydronephrosis , no obstructing stone. will need repeat evaluation and imaging. at this point no stent to be placed as no stone. will call pt and give number for urologist
--- NOTE | 2016-10-09 20:44 | DS ---
Addendum entered and electronically signed by Audra Harrington RES 10/10/16 20: 36: Called Mr. Hernandez at home [phone]. Discussed CT findings regarding right hydroureter and dilatation of right renal pelvis and follow-up with ; [phone], number provided. Patient said he already has the number. He is not interested in following-up, even after I stressed the importance of outpatient follow-up, says he won't be able to go. I reminded him about his appointment with Dr. Solares on October 17 at 10: 30AM at least if he doesn't want to follow-up with Dr. Valle. Patient said he probably won't make it and will likely cancel the appointment. spent 30mins counseling patient on medications compliance, outpatient medical follow- up and importance of PCP. He stated understanding, thanked me for my concern and said he most likely will not follow-up. Original Note: Physical Exam: SUBJECTIVE: Patient seen and examined. declined further lactulose, tolerating diet, no further complaints. wants to go home. no complaints of abdominal pain, dysuria, cough, chest pain, palpitations, SOB. OBJECTIVE: Vital Signs Period Temp Pulse Resp BP Sys/Suazo Pulse Ox Last 24 Hr 97.6 F-98.8 F 78-84 18-22 120-152/79-90 94-94 GENERAL: The patient is awake, alert, and fully oriented, in no acute distress. EYES: PERRL, extraocular movements intact, sclera anicteric, conjunctiva clear. No ptosis. ENT: oropharynx clear without exudates, moist mucous membranes. LUNGS: Breath sounds equal, clear to auscultation bilaterally, no wheezes, no crackles, no accessory muscle use. HEART: Regular rate and rhythm, S1, S2 without murmur, rub or gallop. ABDOMEN: Soft, nontender, nondistended, normoactive bowel sounds, no guarding, no rebound, no hepatosplenomegaly, no masses. EXTREMITIES: 2+ pulses, warm, well-perfused, no edema. LABS Laboratory Tests 10/06/16 10/06/16 10/06/16 06:00 06:00 06:00 WBC 14.2 H D Hgb 14.8 D Hct 44.8 Sodium 144 Potassium 4.5 Anion Gap 14 BUN 24 H Creatinine 1.7 H Lactic Acid Albumin 4.1 Total Amylase 107 D Lipase 197 Urine Protein Urine Nitrite Urine Urobilinogen 10/06/16 10/06/16 10/06/16 09:25 09:45 11:15 WBC Hgb Hct Sodium Potassium Anion Gap BUN Creatinine Lactic Acid 4.932 H* 3.656 H* Albumin Total Amylase Lipase Urine Protein Negative Urine Nitrite Negative Urine Urobilinogen Negative 10/07/16 10/07/16 10/07/16 06:05 06:45 06:45 WBC 10.4 H Hgb Hct Sodium 142 Potassium 3.9 Anion Gap BUN 20 H Creatinine 1.4 H Lactic Acid 1.770 Albumin Total Amylase Lipase Urine Protein Urine Nitrite Urine Urobilinogen 10/08/16 10/08/16 10/09/16 08:30 08:30 05:45 WBC 10.1 H 8.5 Hgb 12.5 Hct 37.1 Sodium 141 Potassium 3.9 Anion Gap BUN 14 D Creatinine 1.3 Lactic Acid Albumin Total Amylase Lipase Urine Protein Urine Nitrite Urine Urobilinogen Laboratory Results - last 24 hr 10/09/16 05:45 WBC 8.5 RBC 3.75 L Hgb 12.5 Hct 37.1 MCV 98.9 H MCHC 33.6 RDW 13.8 Plt Count 151 MPV 9.0 Neutrophils % 68.6 Lymphocytes % 19.3 D Monocytes % 7.2 Eosinophils % 4.4 Basophils % 0.5 Microbiology 10/06/16 09:25 Blood - Peripheral Venous Blood Culture - Preliminary NO GROWTH OBTAINED AFTER 72 HOURS, INCUBATION TO CONTINUE FOR 2 DAYS. 10/06/16 09:25 Blood - Peripheral Venous Blood Culture - Preliminary NO GROWTH OBTAINED AFTER 72 HOURS, INCUBATION TO CONTINUE FOR 2 DAYS. 10/06/16 09:45 Urine - Urine Clean Catch Urine Culture - Final Staphylococcus Simulans 10/06/16 22:30 Nasopharyngeal Swab Respiratory Virus Panel - Preliminary 10/06/16 22:30 Nasopharyngeal Swab Influenza Types A,B Antigen (SABA) - Final - NEGATIVE HOSPITAL COURSE: Date of Admission:10/06/16 - Date of Discharge: 10/09/16 70 year old man with a history of multiple episodes of diverticulitis, HTN, osteoarthritis, osteoporosis, COPD, CKD stage 3, nephrolithiasis, and chronic back pain BIBEMS for vomiting and lose bowel movements for one day, admitted for SIRS with lactic acidosis and TODD. There was a concern for C-diff given recent antibiotic course for pneumonia at [facility]. Patient did not have bowel movements during hospital stay. Urinalysis was negative, chest xray was not suggextive of a new pneumonia and CT abdomen did not show acute diverticulitis. Leucocytosis and TODD improved with fluids. He was monitored off antibiotics. He remained afebrile and hemodynamically stable. He was given miralax and lactulose without relief during hospitalization. He was provided an appointment with Dr. Solares for outpatient follow-up. He was discharged with miralax BID and lactulose prn for constipation with instructions to discontinue if he experiences diarrhea. Minutes to complete discharge: 40 Discharge Summary Reason For Visit: ABD PAIN/ PNUEMONIA Current Active Problems Carotid artery stenosis (Chronic) Depression (Chronic) HTN (hypertension) (Chronic) Hyperlipidemia (Chronic) LBBB (left bundle branch block) (Chronic) Osteoarthritis (Chronic) Polysubstance (excluding opioids) dependence (Chronic) SVT (supraventricular tachycardia) (Chronic) Condition: Stable - Instructions Diet, Activity, Other Instructions: Take your medications as prescribed. Take miralax 17milligrams twice daily, stop if you experience diarrhea. Take lactulose 20mg as needed for constipation 1-2 times daily, stop if you experience diarrhea. Drink plenty of water. Follow-up with a primary care physician, Dr. Quiroz's number and address has been provided. You have an appointment October 17 at 10:30AM His office has been called on your behalf and they are awaiting your phone call. Referrals: Wili Quiroz MD [Staff Physician] - Disposition: HOME - Home Medications Comprehensive Discharge Medication List: Ambulatory Orders Atorvastatin Ca [Lipitor] 10 mg PO HS #30 tablet 11/23/14 Lisinopril [Prinivil] 20 mg PO BID 06/24/15 Trazodone HCl [Desyrel -] 50 mg PO HS PRN 07/22/15 Pantoprazole Sodium [Protonix -] 40 mg PO BID #60 tablet.ec 07/26/15 Duloxetine HCl [Cymbalta -] 30 mg PO BID #60 capsule. 03/29/16 Metoprolol Succinate [Toprol XL -] 25 mg PO DAILY #30 tab.sr.24h 03/29/16 Alprazolam [Xanax] 0.25 mg PO BID 04/12/16 Tamsulosin HCl [Flomax -] 0.4 mg PO DAILY #30 cap.er.24h 05/24/16 Diltiazem Cd [Cardizem Cd -] 120 mg PO DAILY #30 cap.cd.24h 05/29/16 Docusate Sodium [Colace -] 100 mg PO BID #60 capsule 06/07/16 Alendronate Na [Fosamax (Weekly)] 70 mg PO WEEKLY 08/22/16 Oxycodone HCl/Acetaminophen [Percocet 5-325 mg Tablet] 1 - 2 tab PO Q4H Lactulose (Oral Use) [Cephulac -] 20 gm PO PRN PRN #1 bottle 10/09/16 Polyethylene Glycol 3350 [Miralax 119 gm Btl -] 17 gm PO BID #1 bottle 10/09/16 Zolpidem Tartrate [Ambien] 5 mg PO HS PRN #0 tablet MDD 5 10/09/16 This patient is new to me today: No Emergency Visit: No Critical Care patient: No - Discharge Referral Referred to [facility] Yes Physician Referral: Wili Solares MD ([facility])
== END 2016-10-09 16:34 | disposition home or self-care (01) | DRG 683 ==
LOC: JER 05:58 → JERBED 10:37 → J5S 14:11
PROVIDERS: ADMIT Internal Medicine; ATTEND Internal Medicine
DX: N17.9 Acute kidney failure, unspecified (principal); R65.10 Systemic inflammatory response syndrome (SIRS) of non-infectious origin without acute organ dysfunction; E87.2 Acidosis; K59.00 Constipation, unspecified; N13.30 Unspecified hydronephrosis; I10 Essential (primary) hypertension; I48.0 Paroxysmal atrial fibrillation; I44.7 Left bundle-branch block, unspecified; J44.9 Chronic obstructive pulmonary disease, unspecified; F32.9 Major depressive disorder, single episode, unspecified; I12.9 Hypertensive chronic kidney disease with stage 1 through stage 4 chronic kidney disease, or unspecified chronic kidney disease; N18.3 Chronic kidney disease, stage 3 (moderate); G89.29 Other chronic pain; M81.0 Age-related osteoporosis without current pathological fracture
CPT/HCPCS: 36415; 71010-TC; 74176-TC; 80048; 80053; 81003; 82150; 83605; 83690; 84484; 85025; 85027; 87040; 87086; 87186; 87254; 87804; 93005; 93010; 97116-GP; 97161-GP; 99283-25; J1644

== ENCOUNTER 2016-11-18 15:10 | Inpatient (IN) | payer OTHER, BC ==
[2016-11-18 15:27] VITALS: BMI 25.1
[2016-11-18] MEDS ORDERED: HYDROmorphone HCL CARPU-JECT 1 MG/1 ML DISP.SYRIN IVPB ONE (15:54)
[2016-11-18] MEDS ORDERED: HYDROmorphone HCL CARPU-JECT 1 MG/1 ML DISP.SYRIN ONE (16:11)
[2016-11-18 16:40] LABS: BASOPHIL 0.6 % (0-2.0); EOSINOPHIL 3.9 % (0-4.5); MCH 33.4 pg (25.7-33.7); MCHC 33.7 g/dl (32.0-35.9); MEAN CELL VOLUME 99.2 fl (80-96); MEAN PLT VOLUME 9.9 fl (7.5-11.1); NEUTROPHILS 48.5 % (42.8-82.8); PLATELET COUNT 179 K/MM3 (134-434); RDW 14.8 % (11.9-15.9)
[2016-11-18 16:55] LABS: INR 1.01 (0.82-1.09); PROTHROMBIN TIME (PATIENT) 11.1 SEC (9.98-11.88)
--- NOTE | 2016-11-18 17:00 | PDOC ---
History of Present Illness - General History Source: Patient Exam Limitations: No Limitations - History of Present Illness Initial Comments: 11/18/16 17:03 The patient is a 71 year old male with a significant past medical history of HTN , HLD, paroxysmal A-Fib, Known LBBB, diverticulitis, pancreatitis, COPD, Kidney stones (s/p R UVJ Stent), depression, anxiety who presents to the Emergency Department with an episode of syncope today. He states he got up to use the bathroom today and syncopized. He reports recent generalized weakness and chronic leg pain, and chronic SOB. The patient was recently admitted and discharged. Patient at that time was found to have hydronephrosis. He denies chest pain, headache, dizziness. He denies fever, chills, nausea, vomiting, diarrhea, and constipation. <Claudia Daley - Last Filed: 11/18/16 17:03> - General History Source: Patient Exam Limitations: No Limitations <Alirio Fortune - Last Filed: 11/18/16 18:23> - General Chief Complaint: Syncope/Near Syncope Stated Complaint: SYNCOPE/NEAR SYNCOPE Time Seen by Provider: 11/18/16 15:26 Past History <Claudia Daley - Last Filed: 11/18/16 17:03> - Past Medical History Anemia: No Asthma: No Cancer: No Cardiac Disorders: Yes (HTN, HLD, Paroxysmal AFib) CVA: No COPD: Yes CHF: No Dementia: No Diabetes: No GI Disorders: Yes (Diverticulitis, IBS, hemorrhoids) Disorders: Yes (Englarged Prostate) HTN: Yes Hypercholesterolemia: Yes Kidney Stones: Yes (s/p Right UVJ Stent placement) Liver Disease: No Psychiatric Problems: Yes (Depression/Anxiety) Suicide Attempt (Hx): No Seizures: No Thyroid Disease: No - Surgical History Abdominal Surgery: Yes (Hernia Repair) Appendectomy: No Cardiac Surgery: No Cholecystectomy: No GI Surgery: Yes (HEMORRHOIDS/ANAL ULCER, RIGHT UVJ STENT) Lung Surgery: No Neurologic Surgery: No Orthopedic Surgery: Yes (Lumbar Back Surgery x2) - Immunization History Immunization Up to Date: Yes - Psycho/Social/Smoking Cessation Hx Anxiety: No Suicidal Ideation: No Smoking Status: No Smoking History: Unknown if ever smoked Years of Tobacco Use: 20 Have you smoked in the past 12 months: No Number of Cigarettes Smoked Daily: 0 If you are a former smoker, when did you quit?: over 25 years ago Information on smoking cessation initiated: No 'Breaking Loose' booklet given: 09/08/13 Hx Alcohol Use: No Drug/Substance Use Hx: No Substance Use Type: None Hx Substance Use Treatment: No <DevikaAlirio - Last Filed: 11/18/16 18:23> - Past Medical History Allergies/Adverse Reactions: Allergies Allergy/AdvReac Type Severity Reaction Status Date / Time pregabalin [From Lyrica] Allergy Mild Verified 11/18/16 15:27 pravastatin sodium Allergy Unknown Verified 11/18/16 15:27 [From Pravachol] lactose Allergy Nausea Verified 11/18/16 15:27 morphine Allergy Verified 11/18/16 15:27 Penicillins Allergy Verified 11/18/16 15:27 Home Medications: Ambulatory Orders Atorvastatin Ca [Lipitor] 10 mg PO HS #30 tablet 11/23/14 Lisinopril [Prinivil] 20 mg PO BID 06/24/15 Trazodone HCl [Desyrel -] 50 mg PO HS PRN 07/22/15 Pantoprazole Sodium [Protonix -] 40 mg PO BID #60 tablet.ec 07/26/15 Duloxetine HCl [Cymbalta -] 30 mg PO BID #60 capsule.dr 03/29/16 Metoprolol Succinate [Toprol XL -] 25 mg PO DAILY #30 tab.sr.24h 03/29/16 Alprazolam [Xanax] 0.25 mg PO BID 04/12/16 Tamsulosin HCl [Flomax -] 0.4 mg PO DAILY #30 cap.er.24h 05/24/16 Diltiazem Cd [Cardizem Cd -] 120 mg PO DAILY #30 cap.cd.24h 05/29/16 Docusate Sodium [Colace -] 100 mg PO BID #60 capsule 06/07/16 Alendronate Na [Fosamax (Weekly)] 70 mg PO WEEKLY 08/22/16 Oxycodone HCl/Acetaminophen [Percocet 5-325 mg Tablet] 1 - 2 tab PO Q4H Lactulose (Oral Use) [Cephulac -] 20 gm PO PRN PRN #1 bottle 10/09/16 Polyethylene Glycol 3350 [Miralax 119 gm Btl -] 17 gm PO BID #1 bottle 10/09/16 Zolpidem Tartrate [Ambien] 5 mg PO HS PRN #0 tablet MDD 5 10/09/16 Review of Systems - Review of Systems Able to Perform ROS?: Yes Comments:: 11/18/16 17:03 GENERAL/CONSTITUTIONAL: No fever or chills. No weakness. HEAD, EYES, EARS, NOSE AND THROAT: No change in vision. No ear pain or discharge. No sore throat. CARDIOVASCULAR: No chest pain or shortness of breath. RESPIRATORY: No cough, wheezing, or hemoptysis. GASTROINTESTINAL: No nausea, vomiting, diarrhea or constipation. GENITOURINARY: No dysuria, frequency, or change in urination. MUSCULOSKELETAL: (+) leg pain, back pain. No joint or muscle swelling or pain. No neck pain. SKIN: No rash NEUROLOGIC: (+) syncope. No headache, vertigo, or change in strength/sensation. ENDOCRINE: No increased thirst. No abnormal weight change. HEMATOLOGIC/LYMPHATIC: No anemia, easy bleeding, or history of blood clots. ALLERGIC/IMMUNOLOGIC: No hives or skin allergy. <Claudia Daley - Last Filed: 11/18/16 17:03> *Physical Exam - Vital Signs Last Vital Signs Temp Pulse Resp BP Pulse Ox 99.6 F 59 L 18 164/93 100 11/18/16 15:22 11/18/16 15:22 11/18/16 15:22 11/18/16 15:22 11/18/16 15:22 - Physical Exam Comments: 11/18/16 17:03 GENERAL: Awake, alert, and fully oriented, in no acute distress. Chronically deconditioned. HEAD: No signs of trauma. EYES: PERRLA, EOMI, sclera anicteric, conjunctiva clear ENT: Auricles normal inspection, hearing grossly normal, nares patent, oropharynx clear without exudates. Moist mucosa NECK: Normal ROM, supple, no lymphadenopathy, JVD, or masses LUNGS: Breath sounds equal, clear to auscultation bilaterally. No wheezes, and no crackles HEART: Regular rate and rhythm, normal S1 and S2, no murmurs, rubs or gallops ABDOMEN: Soft, nontender, normoactive bowel sounds. No guarding, no rebound. No masses EXTREMITIES: Normal range of motion, no edema. No clubbing or cyanosis. No cords, erythema, or tenderness NEUROLOGICAL: Cranial nerves II through XII grossly intact. Normal speech, normal gait SKIN: Warm, Dry, normal turgor, no rashes or lesions noted. <Claudia Daley - Last Filed: 11/18/16 17:03> - Vital Signs Last Vital Signs Temp Pulse Resp BP Pulse Ox 99.6 F 59 L 18 164/93 100 11/18/16 15:22 11/18/16 15:22 11/18/16 15:22 11/18/16 15:22 11/18/16 15:22 <Alirio Fortune - Last Filed: 11/18/16 18:23> Heart Score/ECG Review #1 ECG reviewed & interpreted by me at: 15:45 11/18/16 17:01 NSR 87, left axis deviation, LBBB, QTC 459 msec <Alirio Fortune - Last Filed: 11/18/16 18:23> ED Treatment Course - LABORATORY CBC & Chemistry Diagram: 11/18/16 16:00 11/18/16 16:00 - ADDITIONAL ORDERS Additional order review: Laboratory Results 11/18/16 16:00 INR 1.01 PTT (Actin FS) 35.0 H D 11/18/16 16:00 RBC 4.36 MCV 99.2 H MCHC 33.7 RDW 14.8 MPV 9.9 Neutrophils % 48.5 D Lymphocytes % 39.3 D Monocytes % 7.7 Eosinophils % 3.9 Basophils % 0.6 - Medications Given in the ED: ED Medications Discontinued Medications Generic Name Dose Route Start Last Admin Trade Name Freq PRN Reason Stop Dose Admin Hydromorphone HCl 0.5 mg 11/18/16 15:54 11/18/16 16:10 Dilaudid Injection - IVPB 11/18/16 15:55 0.5 mg ONCE ONE Administration <Claudia Daley - Last Filed: 11/18/16 17:03> - LABORATORY CBC & Chemistry Diagram: 11/18/16 16:00 11/18/16 16:00 - ADDITIONAL ORDERS Additional order review: 11/18/16 16:00 RBC 4.36 MCV 99.2 H MCHC 33.7 RDW 14.8 MPV 9.9 Neutrophils % 48.5 D Lymphocytes % 39.3 D Monocytes % 7.7 Eosinophils % 3.9 Basophils % 0.6 - RADIOLOGY Radiology Studies Ordered: Category Date Time Status HEAD CT WITHOUT CONTRAST [CT] Stat CT Scan 11/18/16 15:52 Ordered CHEST X-RAY PORTABLE* [RAD] Stat Radiology 11/18/16 15:52 Ordered KIDNEY / RENAL US [US] Stat Ultrasound 11/18/16 15:52 Ordered PELVIC / BLADDER US [US] Stat Ultrasound 11/18/16 15:52 Ordered - Medications Given in the ED: ED Medications Discontinued Medications Generic Name Dose Route Start Last Admin Trade Name Freq PRN Reason Stop Dose Admin Hydromorphone HCl 0.5 mg 11/18/16 15:54 11/18/16 16:10 Dilaudid Injection - IVPB 11/18/16 15:55 0.5 mg ONCE ONE Administration <Alirio Fortune - Last Filed: 11/18/16 18:23> Medical Decision Making - Medical Decision Making 11/18/16 16:42 A portion of this note was documented by scribe services under my direction. I have reviewed the details of the note, within reason, and agree with the documentation with the following case summary and management plan written by me. Patient treated in the ED. Nursing notes are reviewed and incorporated into the medical decision-making. Vital signs reviewed. Peripheral IV access obtained by the nurse, laboratory studies are drawn and sent, reviewed and interpreted by myself. Vital Signs Temp Pulse Resp BP Pulse Ox 99.6 F 59 L 18 164/93 100 11/18/16 15:22 11/18/16 15:22 11/18/16 15:22 11/18/16 15:22 11/18/16 15:22 71-year-old male with past mental history of hypertension, paroxsmal atrial fibrillation, known left bundle branch block, pancreatitis, kidney stones, COPD , pancreatitis, depression presents with syncope today. Patient patient reports that he's been feeling generally weak and with lower extremity pains which is chronic since his discharge. The patient was recently admitted and discharged. Patient at that time was found to have hydronephrosis. Patient reports that he was getting up to use the bathroom when he suddenly syncopized on the floor. Denies any chest pain. However, patient reports that he has chronic shortness of breath that is not new. He reports feeling generally weak and unable to care for self. We'll value the patient admitted to the hospital for syncope. Given his history of hydronephrosis, we'll obtain a bladder and kidney ultrasound to evaluate. 11/18/16 18:21 CBC, BMP 11/18/16 16:00 11/18/16 16:00 CMP Sodium 142 mmol/L (136-145) 11/18/16 16:00 Potassium 4.2 mmol/L (3.5-5.1) 11/18/16 16:00 Chloride 107 mmol/L (98-107) 11/18/16 16:00 Carbon Dioxide 23 mmol/L (21-32) 11/18/16 16:00 Anion Gap 12 (8-16) 11/18/16 16:00 BUN 24 mg/dL (7-18) H D 11/18/16 16:00 Creatinine 1.4 mg/dL (0.7-1.3) H 11/18/16 16:00 Creat Clearance w eGFR 49.68 (>60) 11/18/16 16:00 Random Glucose 117 mg/dL (74-106) H 11/18/16 16:00 Calcium 9.3 mg/dL (8.5-10.1) 11/18/16 16:00 Magnesium 2.3 mg/dL (1.8-2.4) 11/18/16 16:00 Total Bilirubin 0.4 mg/dL (0.2-1.0) 11/18/16 16:00 AST 18 U/L (15-37) D 11/18/16 16:00 ALT 26 U/L (12-78) 11/18/16 16:00 Alkaline Phosphatase 61 U/L (45-117) 11/18/16 16:00 Creatine Kinase 96 IU/L (39-308) 11/18/16 16:00 Troponin I < 0.02 ng/ml (0.00-0.05) 11/18/16 16:00 B-Natriuretic Peptide 94.29 pg/ml (5-125) 11/18/16 16:00 Total Protein 6.8 g/dl (6.4-8.2) 11/18/16 16:00 Albumin 4.1 g/dl (3.4-5.0) 11/18/16 16:00 CT head reviewed. NO acute intracranial hemorrhage. Ultrasound reviewed. Enlarged prostate. No hydronephrosis. Given the syncope, patient will be admitted for telemetry observation. Case discussed in detail with admitting physician including history, physical exam and ancillary studies. Admitting physician has assumed care for the patient, will follow all pending diagnostics and will complete the evaluation and treatment. <Alirio Fortune - Last Filed: 11/18/16 18:23> *DC/Admit/Observation/Transfer - Attestations Scribe Attestion: 11/18/16 17:04 Documentation prepared by Claudia Daley, acting as infertility medical assistant for Alirio Fortune MD. <Claudia Daley - Last Filed: 11/18/16 17:03> - Discharge Dispostion Admit: Yes <Alirio Fortune - Last Filed: 11/18/16 18:23> Diagnosis at time of Disposition: Syncope Qualifiers: Syncope type: unspecified Qualified Code(s): R55 - Syncope and collapse - Discharge Dispostion Condition at time of disposition: Stable
[2016-11-18 17:06] LABS: ALBUMIN 4.1 g/dl (3.4-5.0); ANION GAP 12 (8-16); CALCIUM 9.3 mg/dL (8.5-10.1); CO2 23 mmol/L (21-32); COCKROFT - GAULT 51.25; CREATININE 1.4 mg/dL (0.7-1.3); GLUCOSE,RANDOM 117 mg/dL (74-106); SGPT/ALT 26 U/L (12-78)
[2016-11-18 17:10] LABS: ALK PHOS 61 U/L (45-117); BILIRUBIN,TOTAL 0.4 mg/dL (0.2-1.0); TOT PROT 6.8 g/dl (6.4-8.2); TROPONIN I < 0.02 ng/ml (0.00-0.05)
[2016-11-18 17:14] LABS: MAGNESIUM 2.3 mg/dL (1.8-2.4); SGOT/AST 18 U/L (15-37)
--- NOTE | 2016-11-18 17:27 | EKG ---
Test Reason : Blood Pressure : / mmHG Vent. Rate : 087 BPM Atrial Rate : 087 BPM P-R Int : 166 ms QRS Dur : 132 ms QT Int : 382 ms P-R-T Axes : 032 -48 096 degrees QTc Int : 459 ms NORMAL SINUS RHYTHM LEFT AXIS DEVIATION LEFT BUNDLE BRANCH BLOCK ABNORMAL ECG WHEN COMPARED WITH ECG OF 06-OCT-2016 07:25, PREMATURE VENTRICULAR COMPLEXES ARE NO LONGER PRESENT CLINICAL CORRELATION IS RECOMMENDED Confirmed by KADEN BATISTA, EMERSON ([id number]) on 11/18/2016 5:27:16 PM Referred By: Confirmed By:EMERSON ALFONSO MD
[2016-11-18] MEDS ORDERED: SODIUM CHLORIDE 500 ML IV STA (18:30)
[2016-11-18] MEDS ORDERED: ONDANSETRON 4 MG/2 ML VIAL IVPB ONE (18:30)
[2016-11-18] MEDS ORDERED: ONDANSETRON 4 MG/2 ML VIAL ONE (18:31)
[2016-11-18] MEDS ORDERED: ACETAMINOPHEN 325 MG TABLET (FP) PO PRN ×2 (19:38→20:41)
--- NOTE | 2016-11-18 20:19 | HP ---
CHIEF COMPLAINT: Syncope PCP: NONE HISTORY OF PRESENT ILLNESS: Patient is a 71 year old male with PMH of diverticulitis, Pancreatitis, HTN/HLD/ Paroxysmal A-fib, osteoporosis, COPD, CKD III, nephrolithiasis, and anxiety/ depression who presents to ED s/p syncope earlier today. Patient states he got up from his couch to use the bathroom, felt light-headed and passed out. He awoke seconds later and called EMS. Patient denies any chest pain right before, during, or after LOC, but does recall some left-sided chest pain with exertion over the last few days. He states he has been extremely lethargic lately and his chronic back and leg pain has limited his mobility. He denies incontinence during the event. Denies fever, chills, headache, visual changes, current chest pain, shortness of breath. ER course was notable for: (1)CT Head (-) for acute pathology (2)EKG: NSR w/ old LBBB (3)Troponin (-) x1 Recent Travel: NONE NOTED PAST MEDICAL HISTORY: ABOVE PAST SURGICAL HISTORY: Left inguinal hernia - "yrs ago" Lower back surgery x2, yrs ago by Dr. Hernandez Social History: Smoking:NONE NOTED Alcohol:NONE NOTED Drugs:NONE NOTED Family History: NONCONTRIBUTORY Allergies pregabalin [From Lyrica] Allergy (Mild, Verified 11/18/16 15:27) pravastatin sodium [From Pravachol] Allergy (Unknown, Verified 11/18/16 15:27) however, pt takes atorvastatin 10 mg daily at home, reportedly without side effects lactose Allergy (Verified 11/18/16 15:27) Nausea morphine Allergy (Verified 11/18/16 15:27) unknown Penicillins Allergy (Verified 11/18/16 15:27) unknown affect HOME MEDICATIONS: Home Medications Medication Instructions Recorded Atorvastatin Ca [Lipitor] 10 mg PO HS #30 tablet 11/23/14 Lisinopril [Prinivil] 20 mg PO BID 06/24/15 Trazodone HCl [Desyrel -] 50 mg PO HS PRN 07/22/15 Pantoprazole Sodium [Protonix -] 40 mg PO BID #60 tablet.ec 07/26/15 Duloxetine HCl [Cymbalta -] 30 mg PO BID #60 capsule. 03/29/16 Metoprolol Succinate [Toprol XL -] 25 mg PO DAILY #30 tab.sr.24h 03/29/16 Alprazolam [Xanax] 0.25 mg PO BID 04/12/16 Tamsulosin HCl [Flomax -] 0.4 mg PO DAILY #30 cap.er.24h 05/24/16 Diltiazem Cd [Cardizem Cd -] 120 mg PO DAILY #30 cap.cd.24h 05/29/16 Docusate Sodium [Colace -] 100 mg PO BID #60 capsule 06/07/16 Alendronate Na [Fosamax (Weekly)] 70 mg PO WEEKLY 08/22/16 Oxycodone HCl/Acetaminophen 1 - 2 tab PO Q4H 08/22/16 [Percocet 5-325 mg Tablet] Lactulose (Oral Use) [Cephulac -] 20 gm PO PRN PRN #1 bottle 10/09/16 Polyethylene Glycol 3350 [Miralax 17 gm PO BID #1 bottle 10/09/16 119 gm Btl -] Zolpidem Tartrate [Ambien] 5 mg PO HS PRN #0 tablet MDD 5 10/09/16 REVIEW OF SYSTEMS CONSTITUTIONAL: (+)generalized weakness, malaise, loss of appetite, Absent: fever, chills, diaphoresis, weight change HEENT: Absent: rhinorrhea, nasal congestion, throat pain, throat swelling, difficulty swallowing, mouth swelling, ear pain, eye pain, visual changes CARDIOVASCULAR: Absent: chest pain, syncope, palpitations, irregular heart rate, lightheadedness , peripheral edema RESPIRATORY: Absent: cough, shortness of breath, dyspnea with exertion, orthopnea, wheezing, stridor, hemoptysis GASTROINTESTINAL: Absent: abdominal pain, abdominal distension, nausea, vomiting, diarrhea, constipation, melena, hematochezia GENITOURINARY: Absent: dysuria, frequency, urgency, hesitancy, hematuria, flank pain, genital pain MUSCULOSKELETAL: (+)back pain, Absent: myalgia, arthralgia, joint swelling, neck pain SKIN: Absent: rash, itching, pallor HEMATOLOGIC/IMMUNOLOGIC: Absent: easy bleeding, easy bruising, lymphadenopathy, frequent infections ENDOCRINE: Absent: unexplained weight gain, unexplained weight loss, heat intolerance, cold intolerance NEUROLOGIC: Absent: headache, focal weakness or paresthesias, dizziness, unsteady gait, seizure, mental status changes, bladder or bowel incontinence PSYCHIATRIC: Absent: anxiety, depression, suicidal or homicidal ideation, hallucinations. PHYSICAL EXAMINATION Vital Signs - 24 hr 11/18/16 19:02 Pulse Rate [ 85 Apical] Respiratory 16 Rate Blood Pressure 156/83 [Left Arm] O2 Sat by Pulse 96 Oximetry (%) GENERAL: Awake, alert, and fully oriented, in no acute distress. Malodorous & disheveled. States he hasn't showered in "a long time" HEENT: Atraumatic, EOMI, PERRLA, Moist membranes, no lymphadenopathy LUNGS: Breath sounds equal, clear to auscultation bilaterally. No wheezes, and no crackles. No accessory muscle use. HEART: Regular rate and rhythm, normal S1 and S2 without murmur, rub or gallop. ABDOMEN: Soft, nontender, not distended, normoactive bowel sounds MUSCULOSKELETAL: Normal range of motion at all joints. No bony deformities or tenderness. No CVA tenderness. UPPER EXTREMITIES: 2+ pulses, warm, well-perfused. No cyanosis. No clubbing. No peripheral edema. LOWER EXTREMITIES: 2+ pulses, warm, well-perfused. No peripheral edema. Mild muscle atrophy noted in bilateral lower extremities. NEUROLOGICAL: Cranial nerves II-XII intact. Normal speech. Gait not observed. PSYCHIATRIC: Cooperative. Good eye contact. Appropriate mood and affect. SKIN: Warm, dry, normal turgor, no rashes or lesions noted, normal capillary refill. ASSESSMENT/PLAN: 71 year old male with PMH of diverticulitis, Pancreatitis, HTN/HLD/Paroxysmal A- fib, osteoporosis, COPD, CKD III, nephrolithiasis, and anxiety/depression who presents to ED s/p syncope earlier today. #Syncope, unknown etiology (likely orthostatic) -Tele observation for continuous cardiac monitoring -trend troponins -serial KEG -orthostatic vital signs -IVF NS @75ml/hr -cardiology eval needed -nutrition evaluation need as well #HTN -continue home meds: Cardizem, Toprol, Lisinopril #Anxiety/Depression -continue home meds: Ambien, Trazodone, Xanax, Cymbalta #CKD III -Creatinine at baseline -avoid nephrotoxic meds -on Flomax, needs Uro consult (neglected to f/u after last admission) #Constipation -continue home meds: Miralax, Colace Prophylaxis -PPI -Heparin Visit type - Emergency Visit Emergency Visit: Yes ED Registration Date: 11/18/16 Care time: The patient presented to the Emergency Department on the above date and was hospitalized for further evaluation of their emergent condition. - New Patient This patient is new to me today: Yes Date on this admission: 11/19/16 - Critical Care Critical Care patient: No
[2016-11-18] MEDS ORDERED: traZODone HCL 50 MG TABLET (FP) PO PRN (20:21)
[2016-11-18] MEDS ORDERED: ZOLPIDEM TARTRATE 5 MG TABLET PO PRN (20:21)
--- NOTE | 2016-11-18 20:24 | PN ---
Teaching Attending Note Name of Resident: Lake Jones ATTENDING PHYSICIAN STATEMENT I saw and evaluated the patient. I reviewed the resident's note and discussed the case with the resident. I agree with the resident's findings and plan as documented. SUBJECTIVE: 71 year old male that presents today after an episode of syncope that occurred after getting up to use a bathroom. + LOC for 2 sec. Denied vomiting , diarrhea or decreased oral intake. Other complaints include chronic lower back pain , b/l foot and le pain, arthritis. PMH Diverticulitis HTN Pneumonia COPD CKD Nephrolithiasis/Hydronephrosis Chronic Back Pain Afib PSX Left inquinal hernia repair Tonsillectomy Family Hx Father had cancer /unknown type ALL Lyrica Social Hx Denies smoking Denies alcohol abuse Denies drug use OBJECTIVE: Vital Signs Temperature 99.6 F 11/18/16 15:22 Pulse Rate 85 11/18/16 19:02 Respiratory Rate 16 11/18/16 19:02 Blood Pressure 156/83 11/18/16 19:02 O2 Sat by Pulse Oximetry (%) 96 11/18/16 19:02 GENERAL: Awake, alert, and fully oriented, in no acute distress. Malodorous & disheveled. States he hasn't showered in "a long time" HEENT: Atraumatic, EOMI, PERRLA, Moist membranes, no lymphadenopathy LUNGS: Breath sounds equal, clear to auscultation bilaterally. No wheezes, and no crackles. No accessory muscle use. HEART: Regular rate and rhythm, normal S1 and S2 without murmur, rub or gallop. ABDOMEN: Soft, nontender, not distended, normoactive bowel sounds MUSCULOSKELETAL: Normal range of motion at all joints. No bony deformities or tenderness. No CVA tenderness. UPPER EXTREMITIES: 2+ pulses, warm, well-perfused. No cyanosis. No clubbing. No peripheral edema. LOWER EXTREMITIES: 2+ pulses, warm, well-perfused. No peripheral edema. Mild muscle atrophy noted in bilateral lower extremities. NEUROLOGICAL: Cranial nerves II-XII intact. Normal speech. Gait not observed. PSYCHIATRIC: Cooperative. Good eye contact. Appropriate mood and affect. Abnormal Lab Results 11/18/16 11/18/16 11/18/16 16:00 16:00 16:00 MCV 99.2 H PTT (Actin FS) 35.0 H D BUN 24 H D Creatinine 1.4 H Random Glucose [address] head - no acute disease US kidney and bladder - prostate enlargement , bladder wall thickening ASSESSMENT AND PLAN: 1. Syncope- possibly orthostatic - telemetry observation - orthostatic VS - cardiology evaluation - PT 2. Afib - paroxysmal . Now sinus . - c/w current meds 3. HIstory of hydronephrosis, evidence of chronic outlet obstruction likely due to BPH - needs follow up with urology but was non compliant - on Flomax 4. HTN - uncontrolled - reinstate BP meds and monitor vitals , will adjust medications if needed
[2016-11-18] MEDS ORDERED: OXYCODONE/APAP 5/325MG COMBO TABLET PO SCH (20:30)
[2016-11-18] MEDS ORDERED: SODIUM CHLORIDE 1,000 ML IV SCH (20:30)
[2016-11-18] MEDS ORDERED: oxyCODONE HCL 5 MG TABLET PO PRN (20:41)
[2016-11-18 21:05] LABS: URINE APPEARANCE CLEAR; URINE BILIRUBIN NEGATIVE (NEGATIVE); URINE BLOOD NEGATIVE (NEGATIVE); URINE COLOR LTYELLOW; URINE GLUCOSE (UA) NEGATIVE (NEGATIVE); URINE KETONE TRACE (NEGATIVE); URINE NITRITE NEGATIVE (NEGATIVE); URINE PROTEIN NEGATIVE (NEGATIVE); URINE UROBILINOGEN NEGATIVE E.U./dl (0.2-1.0)
[2016-11-18 21:10] LABS: URINE LEUK ESTERASE TRACE (NEGATIVE)
[2016-11-18 21:12] LABS: URINE HYALINE CAST 3 /lpf; URINE MUCUS RARE; URINE RBC 2 /hpf (0-3); URINE WBC 18 /hpf (3-5)
[2016-11-18] MEDS ORDERED: ALPRAZolam 0.25 MG TABLET ONE (22:14)
[2016-11-18] MEDS ORDERED: PANTOPRAZOLE 40 MG TABLET (FP) ONE (22:15)
[2016-11-18] MEDS ORDERED: DOCUSATE SODIUM 100 MG CAPSULE (FP) PO ONE (22:15)
[2016-11-18] MEDS ORDERED: HEPARIN NA (PORCINE) 5,000 UNITS/ML 1ML VIAL ONE (22:15)
[2016-11-18] MEDS ORDERED: LISINOPRIL 20 MG TABLET (FP) ONE (22:15)
[2016-11-18] MEDS ORDERED: DULoxetine HCL 30 MG CAPSULE.DR (FP) PO ONE (22:16)
[2016-11-18] MEDS: DOCUSATE SODIUM 100 MG CAPSULE (FP) PO SCH (22:27)
[2016-11-18] MEDS: DULoxetine HCL 30 MG CAPSULE.DR (FP) PO SCH (22:27)
[2016-11-18] MEDS: HEPARIN NA (PORCINE) 5,000 UNITS/ML 1ML VIAL SQ SCH (22:27)
[2016-11-18] MEDS: ALPRAZolam 0.25 MG TABLET PO SCH (22:28)
[2016-11-18] MEDS: POLYETHYLENE GLYCOL 3350 119 GM BTL PO SCH (22:28)
[2016-11-18] MEDS: LISINOPRIL 20 MG TABLET (FP) PO SCH (22:28)
[2016-11-18] MEDS: PANTOPRAZOLE 40 MG TABLET (FP) PO SCH (22:28)
[2016-11-19 07:24] LABS: MCH 33.6 pg (25.7-33.7); MCHC 33.8 g/dl (32.0-35.9); MEAN CELL VOLUME 99.4 fl (80-96); MEAN PLT VOLUME 9.4 fl (7.5-11.1); PLATELET COUNT 147 K/MM3 (134-434); RDW 14.7 % (11.9-15.9); WHITE BLOOD COUNT 7.6 K/mm3 (4.0-10.0)
[2016-11-19 07:49] LABS: ANION GAP 7 (8-16); CALCIUM 8.2 mg/dL (8.5-10.1); CO2 24 mmol/L (21-32); COCKROFT - GAULT 59.79; CREATININE 1.2 mg/dL (0.7-1.3); GLUCOSE,RANDOM 97 mg/dL (74-106)
[2016-11-19 07:51] LABS: TROPONIN I < 0.02 ng/ml (0.00-0.05)
[2016-11-19] MEDS ORDERED: TAMSULOSIN HCL 0.4 MG CAP.ER.24H (FP) PO SCH (08:30)
[2016-11-19] MEDS: DOCUSATE SODIUM 100 MG CAPSULE (FP) PO SCH ×2 (09:23→22:15)
[2016-11-19] MEDS: HEPARIN NA (PORCINE) 5,000 UNITS/ML 1ML VIAL SQ SCH ×2 (09:24→22:15)
[2016-11-19] MEDS: DULoxetine HCL 30 MG CAPSULE.DR (FP) PO SCH ×2 (09:24→22:15)
[2016-11-19] MEDS: POLYETHYLENE GLYCOL 3350 119 GM BTL PO SCH ×2 (09:25→22:15)
[2016-11-19] MEDS: LISINOPRIL 20 MG TABLET (FP) PO SCH ×2 (09:25→22:15)
[2016-11-19] MEDS: PANTOPRAZOLE 40 MG TABLET (FP) PO SCH ×2 (09:25→22:15)
[2016-11-19] MEDS: ALPRAZolam 0.25 MG TABLET PO SCH ×2 (09:26→22:15)
[2016-11-19] MEDS: METOPROLOL SUCCINATE 25 MG TAB.SR.24H (FP) PO SCH (09:26)
[2016-11-19 12:40] LABS: TROPONIN I < 0.02 ng/ml (0.00-0.05)
--- NOTE | 2016-11-19 12:41 | EKG ---
Test Reason : Blood Pressure : / mmHG Vent. Rate : 076 BPM Atrial Rate : 076 BPM P-R Int : 164 ms QRS Dur : 142 ms QT Int : 418 ms P-R-T Axes : 023 -51 094 degrees QTc Int : 470 ms SINUS RHYTHM WITH OCCASIONAL PREMATURE VENTRICULAR COMPLEXES LEFT AXIS DEVIATION LEFT BUNDLE BRANCH BLOCK ABNORMAL ECG WHEN COMPARED WITH ECG OF 18-NOV-2016 15:42, PREMATURE VENTRICULAR COMPLEXES ARE NOW PRESENT Confirmed by KADEN BATISTA, EMERSON ([id number]) on 11/19/2016 12:40:40 PM Referred By: Aftab DORSEY Confirmed By:EMERSON ALFONSO MD
--- NOTE | 2016-11-19 13:46 | PN ---
Teaching Attending Note Name of Resident: Zi Iqbal ATTENDING PHYSICIAN STATEMENT I saw and evaluated the patient. I reviewed the resident's note and discussed the case with the resident. I agree with the resident's findings and plan as documented. SUBJECTIVE:states he continues to feel lethargic. +urinary frequency and sensation of incomplete bladder emptying. denies CP, SOB,fever, chills, LOC, syncope, dizzyness, N/V/C/D, hematuria, or dysuria states he took "lots of pain medications" yesterday. more than whats typically prescribed. OBJECTIVE: Last Vital Signs Temp Pulse Resp BP Pulse Ox 98 F 70 18 150/85 98 11/19/16 08:28 11/19/16 08:28 11/19/16 08:28 11/19/16 08:28 11/19/16 09:13 General NAD CV S1 S2 RRR no murmur/rub/gallop no carotid bruit Lungs CTA B/L no wheezing/rales/rhonchi Abdomen soft NT/ND no suprapubic tenderness or distention Extremities no pedal edema ASSESSMENT AND PLAN: 71yo M with multiple comorbidities presented to the ER and was admitted for further evaluation of their emergent condition 1. Syncope- likely due to accidental overdose on opiate medication. cardiac markers neg x2. no event on tele monitor. check echo. carotid dopplers. check orthostatics. cont tele observation. head CT negative 2. Acute cystitis- + symptoms. had +staph simulans in the past which wasnt treated. +bladder wall thickening with enlarged prostate. pt been encouraged in the past to follow up with urology which he was not compliant with. informed pt that he needs to see urology for possible TURP as his prostate may be causing obstructing leading to UTI. start macrobid. will f/u Cx. bladder scan to check post-void. will wait on starting alpha olman as this can lead to syncope and orthostatic hypotension. increase flomax to 0.8mg 3. TODD- infection vs partial obstruction. now improved 4. DVT ppx- EAM 5. PT eval. d/c planning once UCx reported
--- NOTE | 2016-11-19 14:44 | PN ---
Physical Exam: SUBJECTIVE: Patient seen and examined Pt is alert and oriented No s/s fo acute distress no chest pain or palpitation NO fever or chills No dizziness no focal weakness c/o generalized weakness and back pain OBJECTIVE: Vital Signs Period Temp Pulse Resp BP Sys/Suazo Pulse Ox Last 24 Hr 97.8 F-98.1 F 70-85 16-18 139-157/75-90 96-98 GENERAL: The patient is awake, alert, and fully oriented, in no acute distress. HEAD: Normal with no signs of trauma. LUNGS: Breath sounds equal, clear to auscultation bilaterally, no wheezes, no crackles, no accessory muscle use. HEART: Regular rate and rhythm, S1, S2 without murmur, rub or gallop. ABDOMEN: Soft, mild suprapubic tenderness, nondistended, normoactive bowel sounds, no guarding, no rebound, no hepatosplenomegaly, no masses. EXTREMITIES: 2+ pulses, warm, well-perfused, no edema. NEUROLOGICAL: Cranial nerves II through XII grossly intact. Normal speech, gait not observed. PSYCH: Normal mood, normal affect. SKIN: Warm, dry, normal turgor, no rashes or lesions noted Laboratory Results - last 24 hr 11/18/16 11/18/16 11/19/16 21:00 23:44 06:20 WBC 7.6 RBC 3.98 L Hgb 13.4 Hct 39.6 MCV 99.4 H MCHC 33.8 RDW 14.7 Plt Count 147 MPV 9.4 Sodium Potassium Chloride Carbon Dioxide Anion Gap BUN Creatinine POC Glucometer [phone] Random Glucose Calcium Creatine Kinase Troponin I Urine Color Ltyellow Urine Appearance Clear Urine pH 5.0 Ur Specific [place] 1.020 Urine Protein Negative Urine Glucose (UA) Negative Urine Ketones Trace H Urine Blood Negative Urine Nitrite Negative Urine Bilirubin Negative Urine Urobilinogen Negative Ur Leukocyte Esterase Trace H Urine RBC 2 Urine WBC 18 Ur Epithelial Cells Rare Hyaline Casts 3 Urine Mucus Rare 11/19/16 11/19/16 06:20 11:45 WBC RBC Hgb Hct MCV MCHC RDW Plt Count MPV Sodium 141 Potassium 4.2 Chloride 110 H Carbon Dioxide 24 Anion Gap 7 L BUN 23 H Creatinine 1.2 POC Glucometer Random Glucose 97 Calcium 8.2 L Creatine Kinase 80 Troponin I < 0.02 < 0.02 Urine Color Urine Appearance Urine pH Ur Specific [place] Urine Protein Urine Glucose (UA) Urine Ketones Urine Blood Urine Nitrite Urine Bilirubin Urine Urobilinogen Ur Leukocyte Esterase Urine RBC Urine WBC Ur Epithelial Cells Hyaline Casts Urine Mucus Active Medications Generic Name Dose Route Start Last Admin Trade Name Freq PRN Reason Stop Dose Admin Acetaminophen 650 mg 11/18/16 19:38 Tylenol - PO Q4H PRN FEVER OR PAIN Acetaminophen 325 mg 11/18/16 20:41 Tylenol - PO 11/21/16 20:40 Q4H PRN PAIN Acetaminophen 650 mg 11/18/16 20:41 Tylenol - PO 11/21/16 20:40 Q4H PRN PAIN Alprazolam 0.25 mg 11/18/16 22:00 11/19/16 09:26 Xanax - PO 0.25 mg BID SIENA Administration Diltiazem HCl 120 mg 11/19/16 10:00 11/19/16 09:23 Cardizem Cd - PO 120 mg DAILY [facility] Administration Docusate Sodium 100 mg 11/18/16 22:00 11/19/16 09:23 Colace - PO 100 mg BID [facility] Administration Duloxetine HCl 30 mg 11/18/16 22:00 11/19/16 09:24 Cymbalta - PO 30 mg BID [facility] Administration Heparin Sodium (Porcine) 5,000 unit 11/18/16 22:00 11/19/16 09:24 Heparin - SQ 5,000 unit BID [facility] Administration Lisinopril 20 mg 11/18/16 22:00 11/19/16 09:25 Prinivil PO 20 mg BID [facility] Administration Methylnaltrexone [place] 8 mg 11/19/16 14:15 Relistor - SQ DAILY [facility] Metoprolol Succinate 25 mg 11/19/16 10:00 11/19/16 09:26 Toprol Xl - PO 25 mg DAILY [facility] Administration Nitrofurantoin Macrocrystals 50 mg 11/19/16 18:00 Macrodantin - PO 11/26/16 17:59 Q6HPO [facility] Oxycodone HCl 5 mg 11/18/16 20:41 Roxicodone - PO Q4H PRN PAIN SCALE 1-5 Oxycodone HCl 10 mg 11/18/16 20:41 Roxicodone - PO Q4H PRN PAIN SCALE 6-10 Pantoprazole Sodium 40 mg 11/18/16 22:00 11/19/16 09:25 Protonix - PO 40 mg BID [facility]IE[facility] Administration Polyethylene Glycol 17 gm 11/18/16 22:00 11/19/16 09:25 Miralax (For Daily Use) - PO 17 unit BID [facility] Administration Tamsulosin HCl 0.8 mg 11/19/16 13:46 Flomax - PO DAILY@0830 [facility]IE[facility] Trazodone HCl 50 mg 11/18/16 20:21 Desyrel - PO HS PRN INSOMNIA Zolpidem Tartrate 5 mg 11/18/16 20:21 Ambien - PO HS PRN INSOMNIA CBC, BMP 11/19/16 06:20 11/19/16 06:20 Microbiology Laboratory Tests 11/18/16 11/18/16 11/19/16 16:00 21:00 06:20 Calcium 8.2 L Troponin I < 0.02 < 0.02 Ur Leukocyte Esterase Trace H Urine WBC 18 11/19/16 11:45 Calcium Troponin I < 0.02 Ur Leukocyte Esterase Urine WBC ASSESSMENT/PLAN: 71 year old male with pmh of paroxysmal afib, HTN, HPLD, CKD stage 3, Nephrolithiasis, BPH present to the s/p Syncope after taking multiple opiod tablets due to increased back pain and leg pain. Pt was found to have Abnormal UA on admission. Syncope Will do syncope work up CT head negative CXR nothing acute telemetry Echo carotid doppler Serial ekg Trop negative time 3 Orthostatic vitals f/u urine culture NS at 75 ml/h UTI Abnormal UA Increased frequency and suprapubic tenderness Thickened Urinary bladder on US F/u urine culture Start Nitrofurantoin 50mg PO q6h for 7 days BPH Thickened Urinary bladder likely due to outflow obstruction and enlarged prostate On flomax increase to 0.8mg PO Bladder scan post void consult urology Constipation last bowel movement is 3 days ago Pt is on chronic opiod Relistor 8mg SQ once Miralax Colace CKD Creatine at baseline Cr 1.2 avoid nephrotoxins BMP in am FEN Fluid: NS at 75ml/h Electrolytes: no abnormalities Nutrition: cardiac diet DVT Prophylaxis: Heparin sq 5000 unit BID Disposition: Keep in telemetry to continue syncope work up. PT eval Visit type - Emergency Visit Emergency Visit: Yes ED Registration Date: 11/20/16 Care time: The patient presented to the Emergency Department on the above date and was hospitalized for further evaluation of their emergent condition. - New Patient This patient is new to me today: Yes - Critical Care Critical Care patient: No - Discharge Referral Referred to [facility] Med P.C.: No
[2016-11-19] MEDS: Methylnaltrexone Bromide 12 MG/0.6 ML KIT SQ SCH (16:06)
[2016-11-19] MEDS: NITROFURANTOIN MACROCRYSTAL 50 MG CAPSULE (FP) PO SCH ×2 (17:07→23:31)
[2016-11-20] MEDS: oxyCODONE HCL 5 MG TABLET PO PRN ×2 (01:33→20:49)
[2016-11-20] MEDS: ACETAMINOPHEN 325 MG TABLET (FP) PO PRN ×2 (01:35→20:45)
[2016-11-20] MEDS: NITROFURANTOIN MACROCRYSTAL 50 MG CAPSULE (FP) PO SCH ×3 (06:58→17:54)
[2016-11-20] MEDS: TAMSULOSIN HCL 0.4 MG CAP.ER.24H (FP) PO SCH (08:33)
[2016-11-20] MEDS ORDERED: PT OWN MED DRAWER 7, Y5N ONE (09:48)
[2016-11-20] MEDS: PANTOPRAZOLE 40 MG TABLET (FP) PO SCH ×2 (09:59→22:34)
[2016-11-20] MEDS: ALPRAZolam 0.25 MG TABLET PO SCH ×2 (09:59→22:34)
[2016-11-20] MEDS: DOCUSATE SODIUM 100 MG CAPSULE (FP) PO SCH ×2 (09:59→22:34)
[2016-11-20] MEDS: METOPROLOL SUCCINATE 25 MG TAB.SR.24H (FP) PO SCH (09:59)
[2016-11-20] MEDS: DULoxetine HCL 30 MG CAPSULE.DR (FP) PO SCH ×2 (09:59→22:34)
[2016-11-20] MEDS: LISINOPRIL 20 MG TABLET (FP) PO SCH ×2 (09:59→22:33)
[2016-11-20] MEDS: HEPARIN NA (PORCINE) 5,000 UNITS/ML 1ML VIAL SQ SCH ×2 (09:59→22:33)
--- NOTE | 2016-11-20 10:47 | CON.CARD ---
Consult - History of Present Illness History of Present Illness: The patient is a 71 year old male with a significant past medical history of HTN , HLD, paroxysmal A-Fib, Known LBBB, diverticulitis, pancreatitis, COPD, Kidney stones (s/p R UVJ Stent), depression, anxiety who presents to the Emergency Department with an episode of syncope today. He states he got up to use the bathroom today and syncopized. He reports recent generalized weakness and chronic leg pain, and chronic SOB. The patient was recently admitted and discharged. Patient at that time was found to have hydronephrosis. He denies chest pain, headache, dizziness. He denies fever, chills, nausea, vomiting, diarrhea, and constipation. - History Source History Provided By: Patient, Medical Record - Past Medical History [employer]: Yes: Syncope (with reported negative work=up -. stress test in 01/14 - normal (pt reports recent one ,about 14 montsh ago,at [facility] -. normal)) Cardio/Vascular: Yes: HTN, Hyperlipdemia, Other (atypical chest pain in the past with neg stress test. Hx of WCT in 01/16 -. thought to be SVT at pt has underlying LBBB) Pulmonary: Yes: COPD Gastrointestinal: Yes: Constipation, Hiatal Hernia, Irritable Bowel Disease Renal/: Yes: Renal Inusuff, BPH, Renal Calculi (Patient says that he has kidney stone, ? 6 cm in one kidney) Infectious Disease: Yes: Other (?hx "shingles") Psych: Yes: Anxiety, Depression Musculoskeletal: Yes: Chronic low back pain, Osteoarthritis, Other (Lower extremity ulcerations) - Past Surgical History Past Surgical History: Yes: Hernia Repair, Laminectomy (X 2 -> "failed" per patient) - Alcohol/Substance Use Hx Alcohol Use: No History of Substance Use: reports: None - Smoking History Smoking history: Unknown if ever smoked Have you smoked in the past 12 months: No Aproximately how many cigarettes per day: 0 If you are a former smoker, when did you quit?: over 25 years ago - Social History Usual Living Arrangement: Alone 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 Travel: No Home Medications - Allergies Allergies/Adverse Reactions: Allergies Allergy/AdvReac Type Severity Reaction Status Date / Time pregabalin [From Lyrica] Allergy Mild Verified 04/17/17 15:27 pravastatin sodium Allergy Unknown Verified 11/18/16 15:27 [From Pravachol] lactose Allergy Nausea Verified 11/18/16 15:27 morphine Allergy Verified 11/18/16 15:27 peanut Allergy Verified 11/19/16 16:31 Penicillins Allergy Verified 11/18/16 15:27 - Home Medications Home Medications: Ambulatory Orders Atorvastatin Ca [Lipitor] 10 mg PO HS #30 tablet 11/23/14 Lisinopril [Prinivil] 20 mg PO BID 06/24/15 Trazodone HCl [Desyrel -] 50 mg PO HS PRN 07/22/15 Pantoprazole Sodium [Protonix -] 40 mg PO BID #60 tablet.ec 07/26/15 Duloxetine HCl [Cymbalta -] 30 mg PO BID #60 capsule.dr 03/29/16 Metoprolol Succinate [Toprol XL -] 25 mg PO DAILY #30 tab.sr.24h 03/29/16 Alprazolam [Xanax] 0.25 mg PO BID 04/12/16 Tamsulosin HCl [Flomax -] 0.4 mg PO DAILY #30 cap.er.24h 05/24/16 Diltiazem Cd [Cardizem Cd -] 120 mg PO DAILY #30 cap.cd.24h 05/29/16 Docusate Sodium [Colace -] 100 mg PO BID #60 capsule 06/07/16 Alendronate Na [Fosamax (Weekly)] 70 mg PO WEEKLY 08/22/16 Oxycodone HCl/Acetaminophen [Percocet 5-325 mg Tablet] 1 - 2 tab PO Q4H Lactulose (Oral Use) [Cephulac -] 20 gm PO PRN PRN #1 bottle 10/09/16 Polyethylene Glycol 3350 [Miralax 119 gm Btl -] 17 gm PO BID #1 bottle 10/09/16 Zolpidem Tartrate [Ambien] 5 mg PO HS PRN #0 tablet MDD 5 10/09/16 Family Disease History - Family Disease History Family Disease History: CA: Father (lung ), Mother (gall bladder ), Other: Sister (alive: healthy) Review of Systems - Review of Systems Constitutional: reports: No Symptoms Eyes: reports: No Symptoms HENT: reports: No Symptoms Neck: reports: No Symptoms Cardiovascular: reports: No Symptoms Respiratory: reports: No Symptoms Gastrointestinal: reports: No Symptoms Genitourinary: reports: No Symptoms Breasts: reports: No Symptoms Reported Musculoskeletal: reports: No Symptoms Integumentary: reports: No Symptoms Neurological: reports: Syncope Endocrine: reports: No Symptoms Hematology/Lymphatic: reports: No Symptoms Psychiatric: reports: No Symptoms Vital Signs: Vital Signs Temperature 98.1 F 11/20/16 08:18 Pulse Rate 71 11/20/16 08:18 Respiratory Rate 20 11/20/16 08:20 Blood Pressure 138/85 11/20/16 08:18 O2 Sat by Pulse Oximetry (%) 98 11/19/16 22:00 Constitutional: Yes: Well Nourished, No Distress, Calm Eyes: Yes: WNL, Conjunctiva Clear, EOM Intact HENT: Yes: WNL, Atraumatic, Normocephalic Neck: Yes: WNL, Supple, Trachea Midline Respiratory: Yes: WNL, Regular, CTA Bilaterally Gastrointestinal: Yes: WNL, Normal Bowel Sounds Renal/: Yes: WNL Cardiovascular: Yes: WNL, Regular Rate and Rhythm Musculoskeletal: Yes: WNL Extremities: Yes: WNL Integumentary: Yes: WNL Neurological: Yes: WNL, Alert, Oriented ...Motor Strength: WNL Psychiatric: Yes: WNL, Alert, Oriented - Other Data Labs, Other Data: CBC, BMP 11/19/16 06:20 11/19/16 06:20 INR, PTT INR 1.01 (0.82-1.09) 11/18/16 16:00 Troponin, BNP 11/19/16 11/19/16 11:45 21:45 Troponin I < 0.02 < 0.02 Troponin, BNP 11/19/16 11/19/16 11:45 21:45 Troponin I < 0.02 < 0.02 Imaging - Results Chest X-ray: Image Reviewed (no i/e) EKG: Image Reviewed (sr lbbb) Problem List - Problems (1) Syncope Code(s): R55 - SYNCOPE AND COLLAPSE Qualifiers: Syncope type: unspecified Qualified Code(s): R55 - Syncope and collapse (2) Carotid artery stenosis Code(s): I65.29 - OCCLUSION AND STENOSIS OF UNSPECIFIED CAROTID ARTERY (3) Depression Code(s): F32.9 - MAJOR DEPRESSIVE DISORDER, SINGLE EPISODE, UNSPECIFIED Qualifiers: Depression Type: major depressive disorder Major depression recurrence : recurrent Active/Remission status: currently active Major depression episode severity: mild Qualified Code(s): F33.0 - Major depressive disorder, recurrent, mild (4) HTN (hypertension) Code(s): I10 - ESSENTIAL (PRIMARY) HYPERTENSION Qualifiers: Hypertension type: essential hypertension Qualified Code(s): I10 - Essential (primary) hypertension (5) Hyperlipidemia Code(s): E78.5 - HYPERLIPIDEMIA, UNSPECIFIED Qualifiers: Hyperlipidemia type: unspecified Qualified Code(s): E78.5 - Hyperlipidemia, unspecified (6) LBBB (left bundle branch block) Code(s): I44.7 - LEFT BUNDLE-BRANCH BLOCK, UNSPECIFIED (7) Osteoarthritis Code(s): M19.90 - UNSPECIFIED OSTEOARTHRITIS, UNSPECIFIED SITE Qualifiers: Osteoarthritis location: multiple joints Osteoarthritis type: primary Qualified Code(s): M15.0 - Primary generalized (osteo)arthritis (8) Polysubstance (excluding opioids) dependence Code(s): F19.20 - OTHER PSYCHOACTIVE SUBSTANCE DEPENDENCE, UNCOMPLICATED (9) SVT (supraventricular tachycardia) Code(s): I47.1 - SUPRAVENTRICULAR TACHYCARDIA (10) Conjunctivitis Code(s): H10.9 - UNSPECIFIED CONJUNCTIVITIS (11) Dizziness Code(s): R42 - DIZZINESS AND GIDDINESS (12) Syncope and collapse Code(s): R55 - SYNCOPE AND COLLAPSE (13) Abdominal pain Code(s): R10.9 - UNSPECIFIED ABDOMINAL PAIN Qualifiers: Abdominal location: right lower quadrant Qualified Code(s): R10.31 - Right lower quadrant pain (14) Constipation Code(s): K59.00 - CONSTIPATION, UNSPECIFIED (15) Esophageal ulcer Code(s): K22.10 - ULCER OF ESOPHAGUS WITHOUT BLEEDING Qualifiers: Qualified Code(s): K22.10 - Ulcer of esophagus without bleeding (16) Hydronephrosis Code(s): N13.30 - UNSPECIFIED HYDRONEPHROSIS (17) Left lower lobe pneumonia Code(s): J18.9 - PNEUMONIA, UNSPECIFIED ORGANISM (18) Leukocytosis Code(s): D72.829 - ELEVATED WHITE BLOOD CELL COUNT, UNSPECIFIED (19) Prostatitis Code(s): N41.9 - INFLAMMATORY DISEASE OF PROSTATE, UNSPECIFIED Qualifiers: Prostatitis type: acute Qualified Code(s): N41.0 - Acute prostatitis (20) Urge incontinence of urine Code(s): N39.41 - URGE INCONTINENCE (21) Urinary tract infection Code(s): N39.0 - URINARY TRACT INFECTION, SITE NOT SPECIFIED Qualifiers: Urinary tract infection type: site unspecified Hematuria presence: without hematuria Qualified Code(s): N39.0 - Urinary tract infection, site not specified (22) Vomiting and diarrhea Code(s): R11.10 - VOMITING, UNSPECIFIED R19.7 - DIARRHEA, UNSPECIFIED (23) Acute urinary retention Code(s): R33.8 - OTHER RETENTION OF URINE (24) Afib Code(s): I48.91 - UNSPECIFIED ATRIAL FIBRILLATION (25) Anxiety and depression Code(s): F41.8 - OTHER SPECIFIED ANXIETY DISORDERS (26) Appetite loss Code(s): R63.0 - ANOREXIA (27) Back pain Code(s): M54.9 - DORSALGIA, UNSPECIFIED Qualifiers: Back pain location: low back pain Back pain laterality: unspecified Sciatica presence: without sciatica Qualified Code(s): M54.5 - Low back pain (28) CKD (chronic kidney disease) stage 3, GFR 30-59 ml/min Code(s): N18.3 - CHRONIC KIDNEY DISEASE, STAGE 3 (MODERATE) (29) Chronic left shoulder pain Code(s): M25.512 - PAIN IN LEFT SHOULDER G89.29 - OTHER CHRONIC PAIN (30) Chronic low back pain Code(s): M54.5 - LOW BACK PAIN G89.29 - OTHER CHRONIC PAIN (31) Chronic pain Code(s): G89.29 - OTHER CHRONIC PAIN Qualifiers: Chronic pain type: other chronic pain Qualified Code(s): G89.29 - Other chronic pain (32) Enlarged prostate Code(s): N40.0 - BENIGN PROSTATIC HYPERPLASIA WITHOUT LOWER URINRY TRACT SYMP (33) Osteoporosis Code(s): M81.0 - AGE-RELATED OSTEOPOROSIS W/O CURRENT PATHOLOGICAL FRACTURE (34) Radicular low back pain Code(s): M54.10 - RADICULOPATHY, SITE UNSPECIFIED (35) Thoracic or lumbosacral neuritis or radiculitis Code(s): M54.14 - RADICULOPATHY, THORACIC REGION M54.17 - RADICULOPATHY, LUMBOSACRAL REGION (36) Weakness Code(s): R53.1 - WEAKNESS Assessment/Plan syncope most likely post micturition lbbb paf hld htn plan cardiac chu stable cont telemetry consider neurologic consult 24 holter to evaluate
[2016-11-20] MEDS: Methylnaltrexone Bromide 12 MG/0.6 ML KIT SQ SCH (13:56)
--- NOTE | 2016-11-20 16:06 | PN ---
Progress Note (short form) - Note Progress Note: currently asymptomatic. states he was able to ambulate without difficult. denies CP, SOB,fever, chills, N/V/C/D Current Medications Generic Name Dose Route Start Last Admin Trade Name Freq PRN Reason Stop Dose Admin Acetaminophen 650 mg 11/18/16 19:38 Tylenol - PO Q4H PRN FEVER OR PAIN Acetaminophen 325 mg 11/18/16 20:41 11/20/16 01:35 Tylenol - PO 11/21/16 20:40 325 mg Q4H PRN Administration PAIN Acetaminophen 650 mg 11/18/16 20:41 Tylenol - PO 11/21/16 20:40 Q4H PRN PAIN Alprazolam 0.25 mg 11/18/16 22:00 11/20/16 09:59 Xanax - PO 0.25 mg BID [facility]IENA Administration Diltiazem HCl 120 mg 11/19/16 10:00 11/20/16 09:59 Cardizem Cd - PO 120 mg DAILY [facility] Administration Docusate Sodium 100 mg 11/18/16 22:00 11/20/16 09:59 Colace - PO 100 mg BID SIENA Administration Duloxetine HCl 30 mg 11/18/16 22:00 11/20/16 09:59 Cymbalta - PO 30 mg BID SIENA Administration Heparin Sodium (Porcine) 5,000 unit 11/18/16 22:00 11/20/16 09:59 Heparin - SQ 5,000 unit BID SIENA Administration Lisinopril 20 mg 11/18/16 22:00 11/20/16 09:59 Prinivil PO 20 mg BID SIENA Administration Methylnaltrexone [place] 8 mg 11/19/16 14:15 11/20/16 13:56 Relistor - SQ 8 mg DAILY [facility]IE[facility] Administration Metoprolol Succinate 25 mg 11/19/16 10:00 11/20/16 09:59 Toprol Xl - PO 25 mg DAILY [facility]IENA Administration Nitrofurantoin Macrocrystals 50 mg 11/19/16 18:00 11/20/16 11:56 Macrodantin - PO 11/26/16 17:59 50 mg Q6HPO SIENA Administration Oxycodone HCl 5 mg 11/18/16 20:41 11/20/16 01:33 Roxicodone - PO 5 mg Q4H PRN Administration PAIN SCALE 1-5 Oxycodone HCl 10 mg 11/18/16 20:41 Roxicodone - PO Q4H PRN PAIN SCALE 6-10 Pantoprazole Sodium 40 mg 11/18/16 22:00 11/20/16 09:59 Protonix - PO 40 mg BID SIENA Administration Polyethylene Glycol 17 gm 11/18/16 22:00 11/19/16 22:15 Miralax (For Daily Use) - PO 17 grams BID SIENA Administration Tamsulosin HCl 0.8 mg 11/19/16 13:46 11/20/16 08:33 Flomax - PO 0.8 mg DAILY@0830 SIENA Administration Trazodone HCl 50 mg 11/18/16 20:21 Desyrel - PO HS PRN INSOMNIA Zolpidem Tartrate 5 mg 11/18/16 20:21 Ambien - PO HS PRN INSOMNIA Last Vital Signs Temp Pulse Resp BP Pulse Ox 98.2 F 74 20 127/76 98 11/20/16 14:19 11/20/16 14:19 11/20/16 14:19 11/20/16 14:19 11/19/16 22:00 General NAD CV S1 S2 RRR no murmur/rub/gallop no carotid bruit Lungs CTA B/L no wheezing/rales/rhonchi Abdomen soft NT/ND no suprapubic tenderness or distention Extremities no pedal edema Microbiology 11/18/16 21:00 Urine Culture - Preliminary Urine - Urine Clean Catch Staphylococcus Coagulase Neg ASSESSMENT AND PLAN: 71yo M with multiple comorbidities presented to the ER and was admitted for further evaluation of their emergent condition 1. Syncope- likely due to accidental overdose on opiate medication. cardiac markers neg x4. no event on tele monitor. echo showing reduced EF with multiple WMA. cardio consulted. as this is significant change from previous echo. will hold on doing stress at this point as unsure if pt would be good candidate for cardiac cath due to pt non compliance and lack of follow up. will defer to cardiology. 2. Acute cystitis- + symptoms. had +staph simulans in the past which wasnt treated. +bladder wall thickening with enlarged prostate. pt been encouraged in the past to follow up with urology which he was not compliant with. informed pt that he needs to see urology for possible TURP as his prostate may be causing obstructing leading to UTI. on macrobid day 2. Cx +staph. will await final report. low post void residual. 3. TODD- infection vs partial obstruction. now improved 4. DVT ppx- EAM 5. D/c planning pending cardiology recommendations on next step. call placed out to cardiology for further instruction. Visit type - Emergency Visit Emergency Visit: Yes ED Registration Date: 11/18/16 Care time: The patient presented to the Emergency Department on the above date and was hospitalized for further evaluation of their emergent condition. - New Patient This patient is new to me today: No - Critical Care Critical Care patient: No - Discharge Referral Referred to [facility] Med P.C.: No
[2016-11-20] MEDS: POLYETHYLENE GLYCOL 3350 119 GM BTL PO SCH (22:33)
[2016-11-21] MEDS: NITROFURANTOIN MACROCRYSTAL 50 MG CAPSULE (FP) PO SCH ×4 (03:57→17:00)
[2016-11-21] MEDS: oxyCODONE HCL 5 MG TABLET PO PRN (03:57)
[2016-11-21] MEDS: TAMSULOSIN HCL 0.4 MG CAP.ER.24H (FP) PO SCH (07:57)
[2016-11-21] MEDS ORDERED: PT OWN MED DRAWER 7, Y5N ONE (08:29)
[2016-11-21] MEDS: ALPRAZolam 0.25 MG TABLET PO SCH (10:01)
[2016-11-21] MEDS: PANTOPRAZOLE 40 MG TABLET (FP) PO SCH (10:01)
[2016-11-21] MEDS: LISINOPRIL 20 MG TABLET (FP) PO SCH (10:01)
[2016-11-21] MEDS: HEPARIN NA (PORCINE) 5,000 UNITS/ML 1ML VIAL SQ SCH (10:02)
[2016-11-21] MEDS: POLYETHYLENE GLYCOL 3350 119 GM BTL PO SCH (10:03)
[2016-11-21] MEDS: DOCUSATE SODIUM 100 MG CAPSULE (FP) PO SCH (10:07)
[2016-11-21] MEDS: METOPROLOL SUCCINATE 25 MG TAB.SR.24H (FP) PO SCH (10:07)
[2016-11-21] MEDS: DULoxetine HCL 30 MG CAPSULE.DR (FP) PO SCH (10:07)
--- NOTE | 2016-11-21 10:21 | PN ---
Progress Note, Physician History of Present Illness: The patient is a 71 year old male with a significant past medical history of HTN , HLD, paroxysmal A-Fib, Known LBBB, diverticulitis, pancreatitis, COPD, Kidney stones (s/p R UVJ Stent), depression, anxiety who presents to the Emergency Department with an episode of syncope today. He states he got up to use the bathroom today and syncopized. He reports recent generalized weakness and chronic leg pain, and chronic SOB. The patient was recently admitted and discharged. Patient at that time was found to have hydronephrosis. He denies chest pain, headache, dizziness. He denies fever, chills, nausea, vomiting, diarrhea, and constipation. - Current Medication List Current Medications: Active Medications Acetaminophen (Tylenol -) 650 mg PO Q4H PRN PRN Reason: FEVER OR PAIN Acetaminophen (Tylenol -) 325 mg PO Q4H PRN PRN Reason: PAIN Stop: 11/21/16 20:40 Last Admin: 11/20/16 20:45 Dose: 325 mg Acetaminophen (Tylenol -) 650 mg PO Q4H PRN PRN Reason: PAIN Stop: 11/21/16 20:40 Alprazolam (Xanax -) 0.25 mg PO BID [facility] Last Admin: 11/21/16 10:01 Dose: 0.25 mg Diltiazem HCl (Cardizem Cd -) 120 mg PO DAILY [facility] Last Admin: 11/21/16 10:02 Dose: 120 mg Docusate Sodium (Colace -) 100 mg PO BID [facility] Last Admin: 11/21/16 10:07 Dose: Not Given Duloxetine HCl (Cymbalta -) 30 mg PO BID [facility] Last Admin: 11/21/16 10:07 Dose: Not Given Heparin Sodium (Porcine) (Heparin -) 5,000 unit SQ BID [facility] Last Admin: 11/21/16 10:02 Dose: 5,000 unit Lisinopril (Prinivil) 20 mg PO BID [facility] Last Admin: 11/21/16 10:01 Dose: 20 mg Methylnaltrexone [place] (Relistor -) 8 mg SQ DAILY [facility] Last Admin: 11/20/16 13:56 Dose: 8 mg Metoprolol Succinate (Toprol Xl -) 25 mg PO DAILY [facility] Last Admin: 11/21/16 10:07 Dose: Not Given Nitrofurantoin Macrocrystals (Macrodantin -) 50 mg PO Q6HPO [facility] Stop: 11/26/16 17:59 Last Admin: 11/21/16 07:30 Dose: 50 mg Oxycodone HCl (Roxicodone -) 5 mg PO Q4H PRN PRN Reason: PAIN SCALE 1-5 Last Admin: 11/21/16 03:57 Dose: 5 mg Oxycodone HCl (Roxicodone -) 10 mg PO Q4H PRN PRN Reason: PAIN SCALE 6-10 Pantoprazole Sodium (Protonix -) 40 mg PO BID [facility] Last Admin: 11/21/16 10:01 Dose: 40 mg Polyethylene Glycol (Miralax (For Daily Use) -) 17 gm PO BID [facility] Last Admin: 11/21/16 10:03 Dose: 17 grams Tamsulosin HCl (Flomax -) 0.8 mg PO DAILY@0830 [facility] Last Admin: 11/21/16 07:57 Dose: 0.8 mg Trazodone HCl (Desyrel -) 50 mg PO HS PRN PRN Reason: INSOMNIA Zolpidem Tartrate (Ambien -) 5 mg PO HS PRN PRN Reason: INSOMNIA - Objective Vital Signs: Vital Signs Temperature 98 F 11/21/16 09:57 Pulse Rate 84 11/21/16 09:57 Respiratory Rate 18 11/21/16 09:57 Blood Pressure 118/64 11/21/16 09:57 O2 Sat by Pulse Oximetry (%) 95 11/20/16 21:00 Eyes: Yes: WNL, Conjunctiva Clear, EOM Intact HENT: Yes: WNL, Atraumatic, Normocephalic Neck: Yes: WNL, Supple, Trachea Midline Cardiovascular: Yes: WNL, Regular Rate and Rhythm Respiratory: Yes: WNL, Regular, CTA Bilaterally Gastrointestinal: Yes: WNL, Normal Bowel Sounds Genitourinary: Yes: WNL Musculoskeletal: Yes: WNL Extremities: Yes: WNL Edema: No Integumentary: Yes: WNL Neurological: Yes: WNL, Alert, Oriented ...Motor Strength: WNL Psychiatric: Yes: WNL Labs: INR, PTT INR 1.01 (0.82-1.09) 11/18/16 16:00 Problem List - Problems (1) Syncope Code(s): R55 - SYNCOPE AND COLLAPSE Qualifiers: Syncope type: unspecified Qualified Code(s): R55 - Syncope and collapse (2) Carotid artery stenosis Code(s): I65.29 - OCCLUSION AND STENOSIS OF UNSPECIFIED CAROTID ARTERY (3) Depression Code(s): F32.9 - MAJOR DEPRESSIVE DISORDER, SINGLE EPISODE, UNSPECIFIED Qualifiers: Depression Type: major depressive disorder Major depression recurrence : recurrent Active/Remission status: currently active Major depression episode severity: mild Qualified Code(s): F33.0 - Major depressive disorder, recurrent, mild (4) HTN (hypertension) Code(s): I10 - ESSENTIAL (PRIMARY) HYPERTENSION Qualifiers: Hypertension type: essential hypertension Qualified Code(s): I10 - Essential (primary) hypertension (5) Hyperlipidemia Code(s): E78.5 - HYPERLIPIDEMIA, UNSPECIFIED Qualifiers: Hyperlipidemia type: unspecified Qualified Code(s): E78.5 - Hyperlipidemia, unspecified (6) LBBB (left bundle branch block) Code(s): I44.7 - LEFT BUNDLE-BRANCH BLOCK, UNSPECIFIED (7) Osteoarthritis Code(s): M19.90 - UNSPECIFIED OSTEOARTHRITIS, UNSPECIFIED SITE Qualifiers: Osteoarthritis location: multiple joints Osteoarthritis type: primary Qualified Code(s): M15.0 - Primary generalized (osteo)arthritis (8) Polysubstance (excluding opioids) dependence Code(s): F19.20 - OTHER PSYCHOACTIVE SUBSTANCE DEPENDENCE, UNCOMPLICATED (9) SVT (supraventricular tachycardia) Code(s): I47.1 - SUPRAVENTRICULAR TACHYCARDIA (10) Conjunctivitis Code(s): H10.9 - UNSPECIFIED CONJUNCTIVITIS (11) Dizziness Code(s): R42 - DIZZINESS AND GIDDINESS (12) Syncope and collapse Code(s): R55 - SYNCOPE AND COLLAPSE (13) Abdominal pain Code(s): R10.9 - UNSPECIFIED ABDOMINAL PAIN Qualifiers: Abdominal location: right lower quadrant Qualified Code(s): R10.31 - Right lower quadrant pain (14) Constipation Code(s): K59.00 - CONSTIPATION, UNSPECIFIED (15) Esophageal ulcer Code(s): K22.10 - ULCER OF ESOPHAGUS WITHOUT BLEEDING Qualifiers: Qualified Code(s): K22.10 - Ulcer of esophagus without bleeding (16) Hydronephrosis Code(s): N13.30 - UNSPECIFIED HYDRONEPHROSIS (17) Left lower lobe pneumonia Code(s): J18.9 - PNEUMONIA, UNSPECIFIED ORGANISM (18) Leukocytosis Code(s): D72.829 - ELEVATED WHITE BLOOD CELL COUNT, UNSPECIFIED (19) Prostatitis Code(s): N41.9 - INFLAMMATORY DISEASE OF PROSTATE, UNSPECIFIED Qualifiers: Prostatitis type: acute Qualified Code(s): N41.0 - Acute prostatitis (20) Urge incontinence of urine Code(s): N39.41 - URGE INCONTINENCE (21) Urinary tract infection Code(s): N39.0 - URINARY TRACT INFECTION, SITE NOT SPECIFIED Qualifiers: Urinary tract infection type: site unspecified Hematuria presence: without hematuria Qualified Code(s): N39.0 - Urinary tract infection, site not specified (22) Vomiting and diarrhea Code(s): R11.10 - VOMITING, UNSPECIFIED R19.7 - DIARRHEA, UNSPECIFIED (23) Acute urinary retention Code(s): R33.8 - OTHER RETENTION OF URINE (24) Afib Code(s): I48.91 - UNSPECIFIED ATRIAL FIBRILLATION (25) Anxiety and depression Code(s): F41.8 - OTHER SPECIFIED ANXIETY DISORDERS (26) Appetite loss Code(s): R63.0 - ANOREXIA (27) Back pain Code(s): M54.9 - DORSALGIA, UNSPECIFIED Qualifiers: Back pain location: low back pain Back pain laterality: unspecified Sciatica presence: without sciatica Qualified Code(s): M54.5 - Low back pain (28) CKD (chronic kidney disease) stage 3, GFR 30-59 ml/min Code(s): N18.3 - CHRONIC KIDNEY DISEASE, STAGE 3 (MODERATE) (29) Chronic left shoulder pain Code(s): M25.512 - PAIN IN LEFT SHOULDER G89.29 - OTHER CHRONIC PAIN (30) Chronic low back pain Code(s): M54.5 - LOW BACK PAIN G89.29 - OTHER CHRONIC PAIN (31) Chronic pain Code(s): G89.29 - OTHER CHRONIC PAIN Qualifiers: Chronic pain type: other chronic pain Qualified Code(s): G89.29 - Other chronic pain (32) Enlarged prostate Code(s): N40.0 - BENIGN PROSTATIC HYPERPLASIA WITHOUT LOWER URINRY TRACT SYMP (33) Osteoporosis Code(s): M81.0 - AGE-RELATED OSTEOPOROSIS W/O CURRENT PATHOLOGICAL FRACTURE (34) Radicular low back pain Code(s): M54.10 - RADICULOPATHY, SITE UNSPECIFIED (35) Thoracic or lumbosacral neuritis or radiculitis Code(s): M54.14 - RADICULOPATHY, THORACIC REGION M54.17 - RADICULOPATHY, LUMBOSACRAL REGION (36) Weakness Code(s): R53.1 - WEAKNESS Assessment/Plan syncope most likely post micturition lbbb paf hld htn plan cardiac chu stable cont telemetry consider neurologic consult awaiting 24 holter results. If WNL may be discharged and f/u as the outpatient.
[2016-11-21] MEDS: Methylnaltrexone Bromide 12 MG/0.6 ML KIT SQ SCH (11:59)
--- NOTE | 2016-11-21 12:31 | EKG ---
Test Reason : Blood Pressure : / mmHG Vent. Rate : 076 BPM Atrial Rate : 076 BPM P-R Int : 178 ms QRS Dur : 136 ms QT Int : 402 ms P-R-T Axes : 013 -60 078 degrees QTc Int : 452 ms NORMAL SINUS RHYTHM LEFT AXIS DEVIATION LEFT BUNDLE BRANCH BLOCK ABNORMAL ECG WHEN COMPARED WITH ECG OF 18-NOV-2016 15:42, NO SIGNIFICANT CHANGE WAS FOUND Confirmed by JUSTIN CANALES MD ([id number]) on 11/21/2016 12:31:18 PM Referred By: Confirmed By:JUSTIN CANALES MD
--- NOTE | 2016-11-21 13:52 | DS ---
Physical Exam: SUBJECTIVE: Patient seen and examined Pt complains of generalized weakness Complain of low back pain no chest pain, no palpitation no fever or chills no n/v Call placed to Dr Garcia, case discussed with him. he is aware of the wall motion abnormalities, he said they are due to conduction defects since the pt have LBBB. OK to discharge pt as long as there is no event on the monitor. OBJECTIVE: Vital Signs Period Temp Pulse Resp BP Sys/Suazo Pulse Ox Last 24 Hr 98 F-99.7 F 65-84 18-20 99-130/64-79 95-95 PHYSICAL EXAM GENERAL: The patient is awake, alert, and fully oriented, in no acute distress. HEAD: Normal with no signs of trauma. LUNGS: Breath sounds equal, clear to auscultation bilaterally, no wheezes, no crackles, no accessory muscle use. HEART: Regular rate and rhythm, S1, S2 with murmur, rub or gallop. ABDOMEN: Soft, mild suprapubic tenderness, nondistended, normoactive bowel sounds, no guarding, no rebound, no hepatosplenomegaly, no masses. EXTREMITIES: 2+ pulses, warm, well-perfused, no edema. NEUROLOGICAL:. Normal speech, gait not observed. PSYCH: Normal mood, normal affect. SKIN: Warm, dry, normal turgor, no rashes or lesions noted LABS CBC, BMP 11/19/16 06:20 11/19/16 06:20 Microbiology 11/18/16 21:00 Urine - Urine Clean Catch Urine Culture - Preliminary Staphylococcus Coagulase Neg Laboratory Tests 11/18/16 11/19/16 11/19/16 16:00 06:20 11:45 Troponin I < 0.02 < 0.02 < 0.02 11/19/16 21:45 Troponin I < 0.02 HOSPITAL COURSE: Date of Admission:11/20/16 Patient is a 71 year old male with PMH of diverticulitis, Pancreatitis, HTN/HLD/ Paroxysmal A-fib, osteoporosis, COPD, CKD III, nephrolithiasis, and anxiety/ depression who presents to ED s/p syncope earlier today. Patient states he got up from his couch to use the bathroom, felt light-headed and passed out. He awoke seconds later and called EMS. Patient denies any chest pain right before, during, or after LOC, but does recall some left-sided chest pain with exertion over the last few days. He states he has been extremely lethargic lately and his chronic back and leg pain has limited his mobility. He denies incontinence during the event. Denies fever, chills, headache, visual changes, current chest pain, shortness of breath. ER course was notable for: (1)CT Head (-) for acute pathology (2) EKG: NSR w/ old LBBB (3)Troponin (-) x1 71 year old male with pmh of paroxysmal afib, HTN, HPLD, CKD stage 3, Nephrolithiasis, BPH present to the s/p Syncope after taking multiple opiod tablets due to increased back pain and leg pain. Pt was found to have Abnormal UA on admission. Syncope work up done, CT head negative CXR nothing acute, carotid doppler Stenoses of the external carotid arteries is noted right (75%), more severe on the left, Echo with some new wall motion abnormalities and conduction defects, troponins negative time 4, on event on Telemetry, No event on holter monitor no major event, Orthostatic vitals no abnormalities, urine culture positive for staph Coag neg. Pt was diagnosed with a UTI and was treated with Nitrofurantoin 50mg PO q6h currently day 3, will continue for 7 days. Patient has BPH, US bladder showed Thickened Urinary bladder likely due to outflow obstruction and enlarged prostate. Flomax was increased to 0.8mg PO, Bladder scan post void residual was 150ml/h. Patient is to follow up with urology Dr Massey. Pt was constipated did not have a bowel movement in 3-4 days, Patient was treated with miralax, Colace and relistor. will continue miralax and Colace at home. Pt has history of CKD was at baseline during admission. Date of Discharge: 11/21/16 Minutes to complete discharge: 45 <Zi Iqbal - Last Filed: 11/21/16 16:41> Physical Exam: cardio was consulted and informed nothing to be done with new WMA that this is result of LBBB. will follow up with patient in the office <Radha Billy - Last Filed: 11/22/16 08:39> Discharge Summary Reason For Visit: SYNCOPE Current Active Problems Syncope (Acute) Carotid artery stenosis (Chronic) Depression (Chronic) HTN (hypertension) (Chronic) Hyperlipidemia (Chronic) LBBB (left bundle branch block) (Chronic) Osteoarthritis (Chronic) Polysubstance (excluding opioids) dependence (Chronic) SVT (supraventricular tachycardia) (Chronic) - Home Medications Comprehensive Discharge Medication List: Ambulatory Orders Atorvastatin Ca [Lipitor] 10 mg PO HS #30 tablet 11/23/14 Lisinopril [Prinivil] 20 mg PO BID 06/24/15 Trazodone HCl [Desyrel -] 50 mg PO HS PRN 07/22/15 Pantoprazole Sodium [Protonix -] 40 mg PO BID #60 tablet.ec 07/26/15 Duloxetine HCl [Cymbalta -] 30 mg PO BID #60 capsule.dr 03/29/16 Metoprolol Succinate [Toprol XL -] 25 mg PO DAILY #30 tab.sr.24h 03/29/16 Alprazolam [Xanax] 0.25 mg PO BID 04/12/16 Tamsulosin HCl [Flomax -] 0.4 mg PO DAILY #30 cap.er.24h 05/24/16 Diltiazem Cd [Cardizem Cd -] 120 mg PO DAILY #30 cap.cd.24h 05/29/16 Docusate Sodium [Colace -] 100 mg PO BID #60 capsule 06/07/16 Alendronate Na [Fosamax (Weekly)] 70 mg PO WEEKLY 08/22/16 Oxycodone HCl/Acetaminophen [Percocet 5-325 mg Tablet] 1 - 2 tab PO Q4H Lactulose (Oral Use) [Cephulac -] 20 gm PO PRN PRN #1 bottle 10/09/16 Polyethylene Glycol 3350 [Miralax 119 gm Btl -] 17 gm PO BID #1 bottle 10/09/16 Zolpidem Tartrate [Ambien] 5 mg PO HS PRN #0 tablet MDD 5 10/09/16 <Zi Iqbal - Last Filed: 11/21/16 16:41> Current Active Problems BPH (benign prostatic hyperplasia) (Acute) Syncope (Acute) Carotid stenosis (Chronic) Depression (Chronic) HTN (hypertension) (Chronic) Hyperlipidemia (Chronic) LBBB (left bundle branch block) (Chronic) Osteoarthritis (Chronic) Polysubstance (excluding opioids) dependence (Chronic) SVT (supraventricular tachycardia) (Chronic) - Home Medications Comprehensive Discharge Medication List: Ambulatory Orders Atorvastatin Ca [Lipitor] 10 mg PO HS #30 tablet 11/23/14 Lisinopril [Prinivil] 20 mg PO BID 06/24/15 Trazodone HCl [Desyrel -] 50 mg PO HS PRN 07/22/15 Pantoprazole Sodium [Protonix -] 40 mg PO BID #60 tablet.ec 07/26/15 Duloxetine HCl [Cymbalta -] 30 mg PO BID #60 capsule.dr 03/29/16 Metoprolol Succinate [Toprol XL -] 25 mg PO DAILY #30 tab.sr.24h 03/29/16 Alprazolam [Xanax] 0.25 mg PO BID 04/12/16 Diltiazem Cd [Cardizem Cd -] 120 mg PO DAILY #30 cap.cd.24h 05/29/16 Docusate Sodium [Colace -] 100 mg PO BID #60 capsule 06/07/16 Alendronate Na [Fosamax (Weekly)] 70 mg PO WEEKLY 08/22/16 Oxycodone HCl/Acetaminophen [Percocet 5-325 mg Tablet] 1 - 2 tab PO Q4H Lactulose (Oral Use) [Cephulac -] 20 gm PO PRN PRN #1 bottle 10/09/16 Polyethylene Glycol 3350 [Miralax 119 gm Btl -] 17 gm PO BID #1 bottle 10/09/16 Zolpidem Tartrate [Ambien] 5 mg PO HS PRN #0 tablet MDD 5 10/09/16 Nitrofurantoin Monohyd/M-Cryst [Macrobid -] 100 mg PO BID #8 capsule 11/21/16 Tamsulosin HCl [Flomax -] 0.8 mg PO DAILY@0830 #60 tab 11/21/16 <Radha Billy - Last Filed: 11/22/16 08:39> Condition: Stable - Instructions Diet, Activity, Other Instructions: Discharge Home Resume Home diet Resume Home medication We increased you Flomax to 0.8mg orally every day You need to follow up with urologist within 1-2 weeks You need to follow up with tractor crane operator within 1 week You has b/l external carotid stenosis with right (75% occluded) more than left, you need to follow up with you tractor crane operator or Primary care physician for that You have a urinary tract infection, we are treating you with antibiotics, Continue taking Macrobid 1 tablet orally twice daily for 4 more days Referrals: Jett Reynolds MD [Staff Physician] - Bill Garcia MD [Staff Physician] - Disposition: HOME This patient is new to me today: Yes Emergency Visit: Yes ED Registration Date: 11/20/16 Care time: The patient presented to the Emergency Department on the above date and was hospitalized for further evaluation of their emergent condition. Critical Care patient: No - Discharge Referral Referred to [facility] No <Zi Iqbal - Last Filed: 11/21/16 16:41>
[2016-11-21 14:43] VITALS: BP 142/82; PULSE 81; TEMP 98.2
--- NOTE | 2016-11-21 15:55 | HOL ---
Hook-up date: 2016-11-20 14:42:00 Duration: 24:00:00 Test Indications: SYNCOPE/LBBB Medications: 551360 QRS complexes 242 Ventricular ectopics which represent <1 % of total QRS comp. 292 Supraventricular ectopics which represent <1 % of total QRS comp. * Paced QRS complexs which represent % of total QRS comp. 1 % of Time Classified as Noise VENTRICULAR ECTOPY 239 Isolated 0 Bigeminal Cycles 0 Couplets 1 Runs 3 Beats in Runs 3 Beats LONGEST at 79 BPM at 10:41:42 2016-11-21 3 Beats FASTEST at 79 BPM at 10:41:42 2016-11-21 SUPRAVENTRICULAR ECTOPY 201 Isolated 12 Couplets 13 Runs 67 Beats in Runs 10 Beats LONGEST at 138 BPM at 18:48:59 2016-11-20 4 Beats FASTEST at 155 BPM at 05:42:13 2016-11-21 HEART RATES 58 MIN at 03:45:51 2016-11-21 74 AVG 92 MAX at 12:10:46 2016-11-21 LONGEST RR 1.368 secs at 03:45:46 2016-11-21 SCANNED BY SACHIN LEDEZMA 10/21/2016 1. Baseline rhythm is sinus with avg hr 74 and range 58-92. 2. No significant pauses or bradycardia detected. 3. Rare PVCs. 4. 13 brief atrial runs (longest 10 beats), likely PAT . 5. No VT, VF, afib, aflutter detected. 6. No diary submitted. Confirmed by JUSTIN CANALES MD ([id number]) on 11/21/2016 3:54:37 PM Referred By: Overread By: JUSTIN CANALES MD
--- NOTE | 2016-11-21 17:40 | PN ---
Teaching Attending Note Name of Resident: Zi Iqbal ATTENDING PHYSICIAN STATEMENT I saw and evaluated the patient. I reviewed the resident's note and discussed the case with the resident. I agree with the resident's findings and plan as documented. SUBJECTIVE:currently asymptomatic. no repeated episodes of LOC. denies CP, SOB, fever, chills, N/V/C/D OBJECTIVE: Last Vital Signs Temp Pulse Resp BP Pulse Ox 98.2 F 81 18 142/82 95 11/21/16 14:42 11/21/16 14:42 11/21/16 14:42 11/21/16 14:42 11/21/16 09:00 General NAD CV S1 S2 RRR no murmur/rub/gallop no carotid bruit ASSESSMENT AND PLAN: 71yo M with multiple comorbidities presented to the ER and was admitted for further evaluation of their emergent condition 1. Syncope- likely due to accidental overdose on opiate medication. cardiac markers neg x4. no event on tele monitor. echo showing reduced EF with multiple WMA. carotid doppler with 70% stenosis on L. cardio notified of results and is aware of WMA. no need for workup inpatient at this time. stressed importance to pt to follow up with cardio as outpatient. will need repeat carotid doppler to monitor degree of stenosis 2. Acute cystitis- + symptoms. had +staph simulans in the past which wasnt treated. +bladder wall thickening with enlarged prostate. pt been encouraged in the past to follow up with urology which he was not compliant with. informed pt that he needs to see urology for possible TURP as his prostate may be causing obstructing leading to UTI. on macrobid day 3, will complete 5 day course. 3. TODD- infection vs partial obstruction. now improved 4. DVT ppx- EAM 5. D/c home on abx to complete 5 day course
== END 2016-11-21 17:33 | disposition home or self-care (01) | DRG 918 ==
LOC: JER 15:10 → JERBED 18:24 → J4W 11-19 07:23 → OBSVTOIN 11-20 16:00 → J4W 11-20 19:31
PROVIDERS: ADMIT Internal Medicine; ATTEND Internal Medicine
DX: T40.601A Poisoning by unspecified narcotics, accidental (unintentional), initial encounter (principal); N30.00 Acute cystitis without hematuria; N17.9 Acute kidney failure, unspecified; R55 Syncope and collapse; E78.5 Hyperlipidemia, unspecified; I12.9 Hypertensive chronic kidney disease with stage 1 through stage 4 chronic kidney disease, or unspecified chronic kidney disease; N18.3 Chronic kidney disease, stage 3 (moderate); M19.90 Unspecified osteoarthritis, unspecified site; Y92.89 Other specified places as the place of occurrence of the external cause; N40.0 Benign prostatic hyperplasia without lower urinary tract symptoms; F32.9 Major depressive disorder, single episode, unspecified; I44.7 Left bundle-branch block, unspecified
CPT/HCPCS: 36415; 70450-TC; 71010-TC; 76775-TC; 76856-TC; 80048; 80053; 81003; 81015; 82550; 83735; 83880; 84484; 85025; 85027; 85610; 85730; 87086; 87186; 93005; 93010; 93225; 93226; 93306-TC; 93880-TC; 97116-GP; 97162-PG; 99285-25; G0378; J1644

== ENCOUNTER 2017-01-11 20:41 | Inpatient (IN) | payer OTHER ==
--- NOTE | 2017-01-11 20:52 | PDOC ---
History of Present Illness - General History Source: Patient, EMS, Old Records Exam Limitations: No Limitations - History of Present Illness Initial Comments: 01/11/17 21:22 The patient is a 71 year old male with past medical history of hypertension, hyperlipidemia, Afib, known LBBB, COPD, kidney stones (s/p UVJ stent), depression and anxiety who arrives to the ED for complaints of multiple syncopal episodes today. As per EMS, the patient was found on the floor of his home. The patient states that hes been losing consciousness while in his bed today. He complains of generalized weakness and leg/back pain, stating he is unable to ambulate in his home (denies using walker), and has a loss of appetite. He reports a dry cough, palpitations and chronic shortness of breath. Today the patient reports taking multiple blood pressure medications, percocets , and tylenol for his symptoms without relief. The patient has visited the ER monthly for similar symptoms and reports visiting nearby hospitals for the same symptoms as well. Allergies: pregabalin, pravastatin, lactose, morphine, penicillin PMD: Patient states he used to follow with Dr. Enid Mckeon but reports he hasnt seen her in a long time. <Rachael Daniel - Last Filed: 01/12/17 00:17> - General History Source: Patient Exam Limitations: No Limitations <Sharifa Mahajan - Last Filed: 01/12/17 01:35> - General Chief Complaint: Syncope/Near Syncope Stated Complaint: SYNCOPE Time Seen by Provider: 01/11/17 20:50 Past History <Rachael Daniel - Last Filed: 01/12/17 00:17> - Past Medical History Anemia: No Asthma: No Cancer: No Cardiac Disorders: Yes (HTN, HLD, Paroxysmal AFib) CVA: No COPD: Yes CHF: No Dementia: No Diabetes: No GI Disorders: Yes (Diverticulitis, IBS, hemorrhoids) Disorders: Yes (Englarged Prostate) HTN: Yes Hypercholesterolemia: Yes Kidney Stones: Yes (s/p Right UVJ Stent placement) Liver Disease: No Psychiatric Problems: Yes (Depression/Anxiety) Suicide Attempt (Hx): No Seizures: No Thyroid Disease: No - Surgical History Abdominal Surgery: Yes (Hernia Repair) Appendectomy: No Cardiac Surgery: No Cholecystectomy: No GI Surgery: Yes (HEMORRHOIDS/ANAL ULCER, RIGHT UVJ STENT) Lung Surgery: No Neurologic Surgery: No Orthopedic Surgery: Yes (Lumbar Back Surgery x2) - Immunization History Immunization Up to Date: Yes - Psycho/Social/Smoking Cessation Hx Anxiety: No Suicidal Ideation: No Smoking Status: No Smoking History: Unknown if ever smoked Years of Tobacco Use: 20 Have you smoked in the past 12 months: No Number of Cigarettes Smoked Daily: 0 If you are a former smoker, when did you quit?: over 25 years ago 'Breaking Loose' booklet given: 09/08/13 Hx Alcohol Use: No Drug/Substance Use Hx: No Substance Use Type: None Hx Substance Use Treatment: No <Sharifa Mahajan - Last Filed: 01/12/17 01:35> - Past Medical History Allergies/Adverse Reactions: Allergies Allergy/AdvReac Type Severity Reaction Status Date / Time pregabalin [From Lyrica] Allergy Mild Verified 01/11/17 20:48 pravastatin sodium Allergy Unknown Verified 01/11/17 20:48 [From Pravachol] lactose Allergy Nausea Verified 01/11/17 20:48 morphine Allergy Verified 01/11/17 20:48 peanut Allergy Verified 01/11/17 20:48 Penicillins Allergy Verified 01/11/17 20:48 Home Medications: Ambulatory Orders Lisinopril [Prinivil] 20 mg PO BID 06/24/15 Trazodone HCl [Desyrel -] 50 mg PO HS PRN 07/22/15 Pantoprazole Sodium [Protonix -] 40 mg PO BID #60 tablet.ec 07/26/15 Alprazolam [Xanax] 0.25 mg PO BID 04/12/16 Diltiazem Cd [Cardizem Cd -] 120 mg PO DAILY #30 cap.cd.24h 05/29/16 Alendronate Na [Fosamax (Weekly)] 70 mg PO WEEKLY 08/22/16 Oxycodone HCl/Acetaminophen [Percocet 5-325 mg Tablet] 1 - 2 tab PO Q4H Zolpidem Tartrate [Ambien] 5 mg PO HS PRN #0 tablet MDD 5 10/09/16 Baclofen [Lioresal -] 10 mg PO TID 01/11/17 Magnesium Hydrox 2400MG/30Ml [Milk of Magnesia -] 30 ml PO Q8H PRN 01/11/17 Review of Systems - Review of Systems Able to Perform ROS?: Yes Comments:: 01/11/17 21:22 GENERAL/CONSTITUTIONAL: Present: Generalized weakness No fever or chills. HEAD, EYES, EARS, NOSE AND THROAT: No change in vision. No ear pain or discharge. No sore throat. CARDIOVASCULAR: Present: palpitations, shortness of breath No chest pain. RESPIRATORY: Present: dry cough No wheezing, or hemoptysis. GASTROINTESTINAL: Present: constipation No nausea, vomiting, diarrhea. GENITOURINARY: No dysuria, frequency, or change in urination. MUSCULOSKELETAL: Present: back pain, bilateral leg pain and weakness No neck pain. SKIN: No rash NEUROLOGIC: Present: headache, loss of consciousness No vertigo, change in strength/sensation. ENDOCRINE: No increased thirst. No abnormal weight change. HEMATOLOGIC/LYMPHATIC: No anemia, easy bleeding, or history of blood clots. ALLERGIC/IMMUNOLOGIC: No hives or skin allergy. All Other Systems: Reviewed and Negative <Rachael Daniel - Last Filed: 01/12/17 00:17> *Physical Exam - Vital Signs Last Vital Signs Temp Pulse Resp BP Pulse Ox 98.5 F 96 H 22 165/82 93 L 01/11/17 20:46 01/11/17 20:46 01/11/17 20:46 01/11/17 20:46 01/11/17 20:46 - Physical Exam Comments: 01/11/17 21:26 GENERAL: Awake, alert, and fully oriented, in no acute distress HEAD: No signs of trauma EYES: PERRLA, EOMI, sclera anicteric, conjunctiva clear ENT: Auricles normal inspection, hearing grossly normal, nares patent, oropharynx clear without exudates. Moist mucosa NECK: Normal ROM, supple, no lymphadenopathy, JVD, or masses LUNGS: Breath sounds equal, clear to auscultation bilaterally. No wheezes, and no crackles HEART: Regular rate and rhythm, normal S1 and S2, no murmurs, rubs or gallops ABDOMEN: Protuberant. Soft, nontender, normoactive bowel sounds. No guarding, no rebound. No masses EXTREMITIES: Moving all extremities. Weakness with lifting bilateral lower extremities. Sensation in tact. No edema. No clubbing or cyanosis. No cords, erythema, or tenderness NEUROLOGICAL: Cranial nerves II through XII grossly intact. Normal speech. SKIN: Warm, Dry, normal turgor, no rashes or lesions noted. <Rachael Daniel - Last Filed: 01/12/17 00:17> Heart Score/ECG Review #1 ECG reviewed & interpreted by me at: 22:27 01/11/17 22:27 Sinus rhythm rate of 94 bpm LBBB (old finding) <Sharifa Mahajan - Last Filed: 01/12/17 01:35> ED Treatment Course - LABORATORY CBC & Chemistry Diagram: 01/11/17 21:10 01/11/17 21:10 - ADDITIONAL ORDERS Additional order review: 01/11/17 21:10 RBC 4.25 MCV 99.9 H MCHC 32.9 RDW 14.2 MPV 9.3 Neutrophils % 62.9 D Lymphocytes % 23.5 D Monocytes % 7.4 Eosinophils % 5.6 H Basophils % 0.6 <Rachael Daniel - Last Filed: 01/12/17 00:17> - LABORATORY CBC & Chemistry Diagram: 01/11/17 21:10 01/11/17 21:10 <KeyshawnSharifa - Last Filed: 01/12/17 01:35> Medical Decision Making - Medical Decision Making 01/12/17 00:17 EXAM: CT brain without contrast IMPRESSION: No evidence of acute pathology. By: Fidencio Mancia MD EXAM: CT cervical spine without contrast IMPRESSION: No fracture SIGNED Fidencio Mancia MD <shawnRachael de la paz - Last Filed: 01/12/17 00:17> - Medical Decision Making 01/11/17 20:52 A portion of this note was documented by scribe services under my direction. I have reviewed the details of the note, within reason, and agree with the documentation with the following case summary and management plan written by me. Nursing documentation reviewed and incorporated into medical decision making This is a 71 yo M h/o HTN, HLD, Afib, LBBB, COPD, kidney stones (s/p UVJ stent), depression and anxiety he was found on the ground by EMS this evening Pt family member came by the home and found him in this condition The patient states that he has had multiple episodes of "blacking out". He states this did not happen while walking but rather while in bed or in the chair He denies chest pain Does endorse palpitations No fevers, chills, cough He has also had some abdominal pain He states he has not been eating (today he had a ham and cheese sandwich, 2 ensures, a tv dinner) He has has no diarrhea He has required stool softeners He has come to this ER once/month since the beginning of this year for syncope 01/11/17 22:28 Laboratory Tests 11/19/16 11/19/16 01/11/17 06:20 06:20 21:10 WBC 7.6 8.3 Hgb 13.4 13.9 Hct 39.6 42.4 Plt Count 147 167 Sodium Potassium Chloride Carbon Dioxide BUN 23 H Creatinine 1.2 Creatine Kinase Troponin I B-Natriuretic Peptide 01/11/17 21:10 WBC Hgb Hct Plt Count Sodium 140 Potassium 4.2 Chloride 106 Carbon Dioxide 23 BUN 30 H D Creatinine 1.4 H Creatine Kinase 102 Troponin I < 0.02 B-Natriuretic Peptide 37.12 01/12/17 00:[address]: negative for acute pathology Cervcal Spine CT: no fracture or dislocation 01/12/17 00:[address] Muro This patient is unsafe discharge Will place on observation Will place on tele Clinical impression: syncope, frequent falls, <Sharifa Mahajan - Last Filed: 01/12/17 01:35> *DC/Admit/Observation/Transfer - Attestations Scribe Attestion: 01/11/17 21:29 Documentation prepared by Rachael Daniel, acting as medical records administrator for Sharifa Mahajan MD. <Rachael Daniel - Last Filed: 01/12/17 00:17> - Discharge Dispostion Admit: Yes <Sharifa Mahajan - Last Filed: 01/12/17 01:35> Diagnosis at time of Disposition: Syncope Qualifiers: Syncope type: unspecified Qualified Code(s): R55 - Syncope and collapse - Discharge Dispostion Condition at time of disposition: Stable
[2017-01-11 21:19] VITALS: BMI 25.8
[2017-01-11 21:20] LABS: BASOPHIL 0.6 % (0-2.0); EOSINOPHIL 5.6 % (0-4.5); MCH 32.8 pg (25.7-33.7); MCHC 32.9 g/dl (32.0-35.9); MEAN CELL VOLUME 99.9 fl (80-96); MEAN PLT VOLUME 9.3 fl (7.5-11.1); NEUTROPHILS 62.9 % (42.8-82.8); PLATELET COUNT 167 K/MM3 (134-434); RDW 14.2 % (11.9-15.9); WHITE BLOOD COUNT 8.3 K/mm3 (4.0-10.0)
[2017-01-11 21:54] LABS: ALBUMIN 3.9 g/dl (3.4-5.0); ANION GAP 11 (8-16); BILIRUBIN,TOTAL 0.3 mg/dL (0.2-1.0); CO2 23 mmol/L (21-32); COCKROFT - GAULT 52.76; CREATININE 1.4 mg/dL (0.7-1.3); GLUCOSE,RANDOM 113 mg/dL (74-106); MAGNESIUM 2.4 mg/dL (1.8-2.4); SGOT/AST 20 U/L (15-37); SGPT/ALT 32 U/L (12-78); TOT PROT 6.5 g/dl (6.4-8.2)
[2017-01-11 21:56] LABS: ALK PHOS 51 U/L (45-117); TROPONIN I < 0.02 ng/ml (0.00-0.05)
[2017-01-11] MEDS ORDERED: ONDANSETRON 4 MG/2 ML VIAL IVPUSH ONE (22:25)
[2017-01-11] MEDS ORDERED: ONDANSETRON 4 MG/2 ML VIAL ONE (22:49)
[2017-01-11 22:51] LABS: AMYLASE 127 U/L (25-115)
[2017-01-11] MEDS ORDERED: OXYCODONE/APAP 5/325MG COMBO TABLET PO ONE (23:28)
[2017-01-11] MEDS ORDERED: OXYCODONE/APAP 5/325MG COMBO TABLET ONE (23:31)
--- NOTE | 2017-01-12 00:34 | PN ---
<Paramjit Muro - Last Filed: 01/12/17 00:33> Teaching Attending Note Name of Resident: Kiah Graham ATTENDING PHYSICIAN STATEMENT I saw and evaluated the patient. I reviewed the resident's note and discussed the case with the resident. I agree with the resident's findings and plan as documented. SUBJECTIVE: OBJECTIVE: ASSESSMENT AND PLAN: <EmileDonal sneed - Last Filed: 01/12/17 03:02> Teaching Attending Note ATTENDING PHYSICIAN STATEMENT I saw and evaluated the patient. I reviewed the resident's note and discussed the case with the resident. I agree with the resident's findings and plan as documented. SUBJECTIVE: 71 year old male, with significant past medical history of hypertension, hyperlipidemia, AFIB, known left bundle branch block, COPD, kidney stones (s/p UVJ stent), depression and anxiety, who presents to the ED complaining of chronic syncope. Decided to come today because patient feeling generally weak and wanted to seek medical attention. Syncope episodes generally lasts several seconds. No history of seizure disorder. Complaining of intermittent palpitations and noted to have several sedating medications on home medication list. OBJECTIVE: Orthostatics negative GENERAL: Awake, alert, and fully oriented, in no acute distress HEENT: Atraumatic. PERRLA, EOMI. (+) Dry oral mucosa. No JVD LUNGS: No distress, speaks full sentences, clear to auscultation bilaterally HEART: Regular rate and rhythm, normal S1 and S2, no murmurs, rubs or gallops, peripheral pulses normal and equal bilaterally. ABDOMEN: Soft, nontender, normoactive bowel sounds. No guarding, no rebound. No masses EXTREMITIES: Normal inspection, Normal range of motion, no edema. No clubbing or cyanosis. NEUROLOGICAL: Cranial nerves II through XII grossly intact. Normal speech, no focal sensorimotor deficits SKIN: Warm, Dry, normal turgor, no rashes or lesions noted. CBCD WBC 8.3 K/mm3 (4.0-10.0) 01/11/17 21:10 RBC 4.25 M/mm3 (4.00-5.60) 01/11/17 21:10 Hgb 13.9 GM/dL (11.7-16.9) 01/11/17 21:10 Hct 42.4 % (35.4-49) 01/11/17 21:10 MCV 99.9 fl (80-96) H 01/11/17 21:10 MCHC 32.9 g/dl (32.0-35.9) 01/11/17 21:10 RDW 14.2 % (11.9-15.9) 01/11/17 21:10 Plt Count 167 K/MM3 (134-434) 01/11/17 21:10 MPV 9.3 fl (7.5-11.1) 01/11/17 21:10 CMP Sodium 140 mmol/L (136-145) 01/11/17 21:10 Potassium 4.2 mmol/L (3.5-5.1) 01/11/17 21:10 Chloride 106 mmol/L (98-107) 01/11/17 21:10 Carbon Dioxide 23 mmol/L (21-32) 01/11/17 21:10 Anion Gap 11 (8-16) 01/11/17 21:10 BUN 30 mg/dL (7-18) H D 01/11/17 21:10 Creatinine 1.4 mg/dL (0.7-1.3) H 01/11/17 21:10 Creat Clearance w eGFR 49.68 (>60) 01/11/17 21:10 Calcium 9.0 mg/dL (8.5-10.1) 01/11/17 21:10 Total Bilirubin 0.3 mg/dL (0.2-1.0) D 01/11/17 21:10 AST 20 U/L (15-37) 01/11/17 21:10 ALT 32 U/L (12-78) D 01/11/17 21:10 Alkaline Phosphatase 51 U/L (45-117) 01/11/17 21:10 Total Protein 6.5 g/dl (6.4-8.2) 01/11/17 21:10 Albumin 3.9 g/dl (3.4-5.0) 01/11/17 21:10 EXAM: CT brain without contrast IMPRESSION: No evidence of acute pathology. By: Fidencio Mancia MD EXAM: CT cervical spine without contrast IMPRESSION: No fracture SIGNED Fidencio Mancia MD EKG in the ED shows left bundle branch block, which is old ASSESSMENT AND PLAN 1. Syncope - recurrent episodes which have been occurring for several years. Likely secondary to polypharmacy with sedating medications. Differential diagnosis includes cardiac arrhythmias, epilepsy, and less likely orthostatic hypotension related syncope. Should also rule out aortic stenosis. Troponin is negative. - Admit to tely observation. - Home medication list revision. - Consider trans thoracic echo. - Avoid sedatives. - Consider EEG. - Fall precautions. - Physical therapy. 2. Chronic medical problems - Resume home medications, except for sedatives. 3. DVT prophylaxes - SCDs. 4. Diet - Low sodium cardiac diet. Documentation prepared by Donal Hardy, acting as certified medical records coder for Paramjit Muro MD.
--- NOTE | 2017-01-12 01:03 | HP ---
CHIEF COMPLAINT: PCP: 71 year old male with pmh of depression, anxiety, paroxysmal afib, Known LBBB, HTN, CKD stage 3, Nephrolithiasis(s/p R UVJ Stent), BPH who presents to the Emergency Department with an episode of blacking out today. patient reports chronic episodes of LOC starting about 8 years ago that have been progressively worse, happening several times today which prometted him to call ems. patient reports black out episode prodromal symptoms of not feeling well and nauseated light headed. Denies prodromal CP, sob, visual changes, auras, syncope lasting ~ 7 seconds, than regaining consciousness without confusion or a post ictal stat. usually the episode are not witnessed, but when they have been witness denies any jerking or shaking or any tongue bitting. He denies bowel/bladder incontinence during the event. Patient reports intermittent palpations during and in between episodes. patient also reports chronic back pain were he has upper and lower ext weakness causing him to have frequent falls( 3 times this month), these falls are usually not associated with LOC or head injury. although he reports the weakness has been also progressively worse lately. patient reports visiting [facility] that prescribes him several medications including Alprazolam, baclofen, Oxycodone, Trazadone, Zolpidem. Unknown history of sleep study. Denies fever, chills, headache, visual changes, current chest pain, shortness of breath. Prodromal chest pain, SOB, dizziness, lightheadedness. Pt. denies any CP, SOB, RAMIREZ, N/V/D, fever, cough, visual changes, tongue biting, head injury. 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, mobility prevents him from outpatient follow-up, has had home-health aides in past Smoking: denies Alcohol:denies Drugs: denies Family History:non contributory Allergies pregabalin [From Lyrica] Allergy (Mild, Verified 01/11/17 20:48) pravastatin sodium [From Pravachol] Allergy (Unknown, Verified 01/11/17 20:48) however, pt takes atorvastatin 10 mg daily at home, reportedly without side effects lactose Allergy (Verified 01/11/17 20:48) Nausea morphine Allergy (Verified 01/11/17 20:48) unknown peanut Allergy (Verified 01/11/17 20:48) Penicillins Allergy (Verified 01/11/17 20:48) unknown affect HOME MEDICATIONS: Home Medications Medication Instructions Recorded Lisinopril [Prinivil] 20 mg PO BID 06/24/15 Trazodone HCl [Desyrel -] 50 mg PO HS PRN 07/22/15 Pantoprazole Sodium [Protonix -] 40 mg PO BID #60 tablet.ec 07/26/15 Alprazolam [Xanax] 0.25 mg PO BID 04/12/16 Diltiazem Cd [Cardizem Cd -] 120 mg PO DAILY #30 cap.cd.24h 05/29/16 Alendronate Na [Fosamax (Weekly)] 70 mg PO WEEKLY 08/22/16 Oxycodone HCl/Acetaminophen 1 - 2 tab PO Q4H 08/22/16 [Percocet 5-325 mg Tablet] Zolpidem Tartrate [Ambien] 5 mg PO HS PRN #0 tablet MDD 5 10/09/16 Baclofen [Lioresal -] 10 mg PO TID 01/11/17 Magnesium Hydrox 2400MG/30Ml [Milk 30 ml PO Q8H PRN 01/11/17 of Magnesia -] REVIEW OF SYSTEMS CONSTITUTIONAL: chills, generalized weakness, malaise, Absent: fever, diaphoresis, loss of appetite, weight change HEENT: Absent: rhinorrhea, nasal congestion, throat pain, throat swelling, difficulty swallowing, mouth swelling, ear pain, eye pain, visual changes CARDIOVASCULAR: syncope, palpitations, irregular heart rate, Absent: chest pain, lightheadedness, peripheral edema RESPIRATORY: Absent: cough, shortness of breath, dyspnea with exertion, orthopnea, wheezing, stridor, hemoptysis GASTROINTESTINAL: nausea, Absent: abdominal pain, abdominal distension,vomiting, diarrhea, constipation, melena, hematochezia GENITOURINARY: Absent: dysuria, frequency, urgency, hesitancy, hematuria, flank pain, genital pain MUSCULOSKELETAL: back pain, Absent: myalgia, arthralgia, joint swelling, neck pain SKIN: Absent: rash, itching, pallor ENDOCRINE: cold intolerance Absent: unexplained weight gain, unexplained weight loss, heat intolerance, NEUROLOGIC: dizziness, bladder incontinence(chronic) Absent: headache, focal weakness or paresthesias, unsteady gait, seizure, mental status changes, or bowel incontinence PSYCHIATRIC: Absent: anxiety, depression, suicidal or homicidal ideation, hallucinations. PHYSICAL EXAMINATION Vital Signs - 24 hr 01/11/17 20:46 Temperature 98.5 F Pulse Rate 96 H Respiratory 22 Rate Blood Pressure 165/82 O2 Sat by Pulse 93 L Oximetry (%) Ortho static: supine BP 154/92 HR 84, sitting BP 144/88 HR 88, differed standing. GENERAL: Awake, alert, and fully oriented, in no acute distress. HEAD: Normal with no signs of trauma. EYES: Pupils equal, round and reactive to light, no nystagmus, extraocular movements intact, sclera anicteric, conjunctiva clear. No lid lag. EARS, NOSE, THROAT: Ears normal, nares patent, oropharynx clear without exudates. Moist mucous membranes. NECK: Normal range of motion, supple without lymphadenopathy, JVD, or masses. LUNGS: Breath sounds equal, clear to auscultation bilaterally. No wheezes, and no crackles. No accessory muscle use. HEART: Regular rate and rhythm, normal S1 and S2 without murmur, rub or gallop. ABDOMEN: Soft, nontender, not distended, normoactive bowel sounds, no guarding, no rebound, no masses. No hepatomegaly or splenomegaly. MUSCULOSKELETAL: Normal range of motion at all joints. No bony deformities or tenderness. No CVA tenderness. LOWER EXTREMITIES: 2+ pulses, warm, well-perfused. No calf tenderness. No peripheral edema. NEUROLOGICAL: Cranial nerves II-XII intact. Normal speech. +cogwheel, LLE +3 DTR, + 2 DTR in upper ext and RLE. strength 5/5 in all ext. PSYCHIATRIC: Cooperative. Good eye contact. Appropriate mood and affect. SKIN: Warm, dry, normal turgor, no rashes or lesions noted, normal capillary refill. Laboratory Results - last 24 hr 01/11/17 01/11/17 01/11/17 21:10 21:10 21:10 WBC 8.3 RBC 4.25 Hgb 13.9 Hct 42.4 MCV 99.9 H MCHC 32.9 RDW 14.2 Plt Count 167 MPV 9.3 Neutrophils % 62.9 D Lymphocytes % 23.5 D Monocytes % 7.4 Eosinophils % 5.6 H Basophils % 0.6 INR 1.00 Sodium 140 Potassium 4.2 Chloride 106 Carbon Dioxide 23 Anion Gap 11 BUN 30 H D Creatinine 1.4 H Creat Clearance w eGFR 49.68 Random Glucose 113 H Calcium 9.0 Magnesium 2.4 Total Bilirubin 0.3 D AST 20 ALT 32 D Alkaline Phosphatase 51 Creatine Kinase 102 Troponin I < 0.02 B-Natriuretic Peptide 37.12 Total Protein 6.5 Albumin 3.9 Total Amylase Lipase 01/11/17 22:35 WBC RBC Hgb Hct MCV MCHC RDW Plt Count MPV Neutrophils % Lymphocytes % Monocytes % Eosinophils % Basophils % INR Sodium Potassium Chloride Carbon Dioxide Anion Gap BUN Creatinine Creat Clearance w eGFR Random Glucose Calcium Magnesium Total Bilirubin AST ALT Alkaline Phosphatase Creatine Kinase Troponin I B-Natriuretic Peptide Total Protein Albumin Total Amylase 127 H Lipase 169 EXAM: CT brain without contrast THIS IS A PRELIMINARYREPORT FROM IMAGING CHIEF INFORMATICS OFFICER IMAGES: 177 INDICATION: Found down DATE OF SERVICE: 2017-01-11 22:52:58.0 COMPARISON: 11/18/16 FINDINGS: The ventricular system is midline and nondilated. There is a moderate degree of cortical atrophy and mild small vessel ischemic changes. There is no bleed, mass , extra-axial fluid collection or mass effect. No skull fracture or skull lesion is identified. The visualized paranasal sinuses and mastoid air cells are clear. IMPRESSION: No evidence of acute pathology. CT cervical spine:THIS IS A PRELIMINARYREPORT FROM IMAGING CHIEF INFORMATICS OFFICER EXAM: CT cervical spine without contrast IMAGES: 529 INDICATION: Found down DATE OF SERVICE: 2017-01-11 22:52:58.0 COMPARISON: none FINDINGS: There is no fracture or prevertebral soft tissue swelling. There are mild degenerative changes with a mild degenerative anterolisthesis of C4 on C5 with associated facet joint arthrosis. The lung apices are clear. IMPRESSION: No fracture. Head CT: THIS IS A PRELIMINARYREPORT FROM IMAGING CHIEF INFORMATICS OFFICER EXAM: CT brain without contrast IMAGES: 177 INDICATION: Found down DATE OF SERVICE: 2017-01-11 22:52 :58.0 COMPARISON: 11/18/16 FINDINGS: The ventricular system is midline and nondilated. There is a moderate degree of cortical atrophy and mild small vessel ischemic changes. There is no bleed, mass, extra-axial fluid collection or mass effect. No skull fracture or skull lesion is identified. The visualized paranasal sinuses and mastoid air cells are clear. IMPRESSION: No evidence of acute pathology. ASSESSMENT/PLAN: 71 year old male with pmh of paroxysmal afib, HTN, HPLD, CKD stage 3, Nephrolithiasis, BPH present to the s/p Syncope after taking multiple opiod and sedative medication chronically. Hold Alprazolam, baclofen, Oxycodone, Trazadone, Zolpidem. consider alexey or re-dose and avoid abrupt withdrawal. clinically looks dry, but Orthostatic vitals normal, will hydrate. Possible cardiac arrhythmia, history of proxismal Afib, curently sinus, chronic LBBB, although has been worked up in the past it is still high on the differential. unclear if narcolepsy is ruled out in the past. Less likely eplipsy, may consider neurology input. CT head negative, CXR no acute finding. Trop negative x1, no current Chest pain or sob. Consider attaining syncope work up from the past. Syncope : likely due to accidental chronic overdose on opiate medication and sedative medications. cardiac enzyme negative x 1, no changes on EKG, no cp or cp recent echo showed EF with multiple WMA. 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 consider r/o narcolepsy HTN continue home Cardizem, lisinopril Anxiety/Depression -Hold home meds: Ambien, Trazodone, Xanax, as patient syncope -consider alexey or re-dose and avoid abrupt withdrawal BPH not on meds at home will start Flomax 0.8mg PO daily currently has urinary incontinence Constipation last bowel movement is yesterday continue home Mil of magnesia stage 1; mild Acute on chronic kidney injury: Cr 1.4, Creatine at baseline Cr 1.2 avoid nephrotoxins IVNS BMP in am Osteoperosis continue Alendronate 70mg PO weekly Tylenol for pain control chronic Back pain hold percocet and baclofen 2/2 to syncope FEN Fluid: NS at 100ml/h Electrolytes: no abnormalities Nutrition: cardiac diet low sodium Fall precautions DVT Prophylaxis: SCD Disposition: observe in telemetry to continue syncope work up. PT eval Visit type - Emergency Visit Emergency Visit: Yes ED Registration Date: 01/12/17 Care time: The patient presented to the Emergency Department on the above date and was hospitalized for further evaluation of their emergent condition. - New Patient This patient is new to me today: Yes Date on this admission: 01/12/17 - Critical Care Critical Care patient: No
[2017-01-12 02:38] LABS: URINE APPEARANCE CLEAR; URINE BILIRUBIN NEGATIVE (NEGATIVE); URINE BLOOD NEGATIVE (NEGATIVE); URINE COLOR STRAW; URINE GLUCOSE (UA) NEGATIVE (NEGATIVE); URINE KETONE NEGATIVE (NEGATIVE); URINE NITRITE NEGATIVE (NEGATIVE); URINE PROTEIN NEGATIVE (NEGATIVE); URINE UROBILINOGEN NEGATIVE E.U./dl (0.2-1.0)
[2017-01-12] MEDS: SODIUM CHLORIDE 1,000 ML IV SCH (02:38)
[2017-01-12] MEDS ORDERED: PATIENT'S OWN MEDICATION (NON-FORMULARY) (Alendronate Na [Fosamax (Weekly)] 70 MG) PO SCH (02:45)
[2017-01-12 02:48] LABS: URINE LEUK ESTERASE 2+ (NEGATIVE)
[2017-01-12 02:56] LABS: URINE MUCUS RARE; URINE RBC 1 /hpf (0-3); URINE WBC 10 /hpf (3-5)
[2017-01-12] MEDS: ONDANSETRON 4 MG/2 ML VIAL IVPB PRN (04:42)
[2017-01-12] MEDS ORDERED: ONDANSETRON 4 MG/2 ML VIAL ONE (04:43)
--- NOTE | 2017-01-12 07:58 | CON.CARD ---
Consult Consult Specialty:: Cardiology for Dr. Garcia/Elvia Referred by:: Hospitalist Reason for Consultation:: Syncope - History of Present Illness Chief Complaint: Syncope, generalized weakness History of Present Illness: 71 year old man h/o HTN, HLD, AFib, LBBB, COPD, chronic pain, recurrent syncope including recent admission for syncope, admitted with recurrent episode of syncope, generalized weakness, chronic pain. He states that yesterday he was in pain and his BP was elevated so he took multiple pain medications and multiple anti-HTN meds. . He then reports multiple episodes of LOC. Denies any chest pain, worsening of chronic sob, pnd, orthopnea, or LE edema. No palpitations. 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 stress test in 01/14 - normal (pt reports recent one ,about 14 montsh ago,at [facility] -. normal)) Cardio/Vascular: Yes: HTN, Hyperlipdemia, Other (atypical chest pain in the past with neg stress test. Hx of WCT in 01/16 -. thought to be SVT at pt has underlying LBBB) Pulmonary: Yes: COPD Gastrointestinal: Yes: Constipation, Hiatal Hernia, Irritable Bowel Disease Renal/: Yes: Renal Inusuff, BPH, Renal Calculi (Patient says that he has kidney stone, ? 6 cm in one kidney) Infectious Disease: Yes: Other (?hx "shingles") Psych: Yes: Anxiety, Depression Musculoskeletal: Yes: Chronic low back pain, Osteoarthritis, Other (Lower extremity ulcerations) - Past Surgical History Past Surgical History: Yes: Hernia Repair, Laminectomy (X 2 -> "failed" per patient) - Alcohol/Substance Use Hx Alcohol Use: No History of Substance Use: reports: None - Smoking History Smoking history: Unknown if ever smoked Have you smoked in the past 12 months: No Aproximately how many cigarettes per day: 0 If you are a former smoker, when did you quit?: over 25 years ago - Social History Usual Living Arrangement: Alone 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 Travel: No Home Medications - Allergies Allergies/Adverse Reactions: Allergies Allergy/AdvReac Type Severity Reaction Status Date / Time pregabalin [From Lyrica] Allergy Mild Verified 01/11/17 20:48 pravastatin sodium Allergy Unknown Verified 01/11/17 20:48 [From Pravachol] lactose Allergy Nausea Verified 01/11/17 20:48 morphine Allergy Verified 01/11/17 20:48 peanut Allergy Verified 01/11/17 20:48 Penicillins Allergy Verified 01/11/17 20:48 - Home Medications Home Medications: Ambulatory Orders Lisinopril [Prinivil] 20 mg PO BID 06/24/15 Trazodone HCl [Desyrel -] 50 mg PO HS PRN 07/22/15 Pantoprazole Sodium [Protonix -] 40 mg PO BID #60 tablet.ec 07/26/15 Alprazolam [Xanax] 0.25 mg PO BID 04/12/16 Diltiazem Cd [Cardizem Cd -] 120 mg PO DAILY #30 cap.cd.24h 05/29/16 Alendronate Na [Fosamax (Weekly)] 70 mg PO WEEKLY 08/22/16 Oxycodone HCl/Acetaminophen [Percocet 5-325 mg Tablet] 1 - 2 tab PO Q4H Zolpidem Tartrate [Ambien] 5 mg PO HS PRN #0 tablet MDD 5 10/09/16 Baclofen [Lioresal -] 10 mg PO TID 01/11/17 Magnesium Hydrox 2400MG/30Ml [Milk of Magnesia -] 30 ml PO Q8H PRN 01/11/17 Family Disease History - Family Disease History Family Disease History: CA: Father (lung ), Mother (gall bladder ), Other: Sister (alive: healthy) Review of Systems - Review of Systems Constitutional: reports: Loss of Appetite, Malaise, Weakness. denies: No Symptoms, Chills, Diaphoresis, Fever, Lethargy, Night Sweats, Unintentional Wgt. Loss, Other Eyes: denies: No Symptoms, Blind Spots, Blurred Vision, Double Vision, Eye Pain , Floaters, Photophobia, Recent Change in Vision, Other HENT: denies: No Symptoms, Difficult Swallowing, Ear Discharge, Ear Pain, Epistaxis, Gingival Bleeding, Hearing Loss, Mouth Swelling, Nasal Congestion, Ocular Prosthesis, Throat Pain, Toothache, Ringing in Ears, Other Neck: denies: No Symptoms, Decreased ROM, Lumps, Pain on Movement, Stiffness, Swollen Glands, Tenderness, Other Cardiovascular: denies: No Symptoms, Chest Pain, Edema, Palpitations, Shortness of Breath, Other Respiratory: reports: Exercise Intolerance, SOB on Exertion. denies: No Symptoms, Cough, Hemoptysis, Orthopnea, PND, Snoring, SOB, Wheezing, Other Gastrointestinal: denies: No Symptoms, Abdominal Pain, Bloating, Constipation, Diarrhea, Dysphagia, Indigestion, Melena, Nausea, Rectal Bleeding, Vomiting, Vomiting Blood, Other Genitourinary: denies: No Symptoms, Burning, Discharge, Dysuria, Flank Pain, Frequency, Hematuria, Incontinence, Lesions, Menses, Pain, Testicular Mass, Testicular Pain, Testicular Swelling, Urgency, Vaginal Bleeding, Other Breasts: denies: No Symptoms Reported, See HPI, Breast Implants, Discharge from Nipple, Lumps, Pain, Skin Changes, Other Musculoskeletal: reports: Back Pain, Extremity Pain, Joint Pain. denies: No Symptoms, Crepitus, Decreased ROM, Joint Swelling, Muscle Pain, Muscle Cramps, Muscle Weakness, Other Integumentary: denies: No Symptoms, Blister, Bruising, Change in Color, Eczema, Erythema, Incision, Lesions, Lump, Pallor, Pruritis, Rash, Wound, Other Neurological: reports: Syncope. denies: No Symptoms, Change in LOC, Change in Speech, Confusion, Dizziness, Headache, Incoordination, Numbness, Parasthesia, Pre-Existing Deficit, Seizure, Tremors, Unsteady Gait, Weakness, Other Endocrine: denies: No Symptoms, Excessive Sweating, Flushing, Increased Hunger, Increased Thirst, Intolerance to Cold, Intolerance to Heat, Unexplained Weight Gain, Unexplained Weight Loss, Other Hematology/Lymphatic: denies: No Symptoms, Easily Bruised, Excessive Bleeding, Swollen Glands, Other Psychiatric: denies: No Symptoms, Altered Sleep Pattern, Anxiety, Depression, Hallucinations, Panic, Paranoia, Suicidal, Other - Risk Factors Known Risk Factors: Yes: Hypercholesterolemia, Hypertension Vital Signs: Vital Signs Temperature 98.7 F 01/12/17 07:44 Pulse Rate 76 01/12/17 07:44 Respiratory Rate 16 01/12/17 07:44 Blood Pressure 150/92 01/12/17 07:44 O2 Sat by Pulse Oximetry (%) 94 L 01/12/17 07:44 Constitutional: Yes: Well Nourished, No Distress, Calm Eyes: Yes: WNL, Conjunctiva Clear, EOM Intact, PERRL HENT: Yes: WNL, Atraumatic, Normocephalic Neck: Yes: WNL, Supple, Trachea Midline Respiratory: Yes: WNL, Regular, CTA Bilaterally. No: Rales, Rhonchi, SOB, Wheezes Gastrointestinal: Yes: WNL, Normal Bowel Sounds, Soft. No: Distention, Tenderness Cardiovascular: No: Regular Rate and Rhythm JVD: No Carotid Bruit: No PMI: Non-Displaced Heart Sounds: Yes: S1, S2. No: Split S2, S3, S4, Clicks, Gallop, Rub, Bruit Murmur: Yes: Systolic Murmur, Grade 2 Musculoskeletal: Yes: Back Pain, Joint Stiffness Extremities: Yes: WNL Edema: No Peripheral Pulses WNL: Yes Peripheral Pulses: 2+ Left Doralis Pedis, 2+ Right Dorsalis Pedis Integumentary: Yes: WNL Neurological: Yes: Alert, Oriented Psychiatric: Yes: Alert, Oriented - Other Data Labs, Other Data: INR, PTT INR 1.00 (0.82-1.09) 01/11/17 21:10 ekg-NSR 94bpm, LBBB Echo: Report Reviewed Imaging - Results Chest X-ray: Report Reviewed, Image Reviewed EKG: Report Reviewed, Image Reviewed Other: Report Reviewed, Image Reviewed Assessment/Plan 71 year old man h/o HTN, HLD, AFib, LBBB, COPD, chronic pain, recurrent syncope including recent admission for syncope, admitted with recurrent episode of syncope, generalized weakness, chronic pain. He states that yesterday he was in pain and his BP was elevated so he took multiple pain medications and multiple anti-HTN meds. He then reports multiple episodes of LOC. Recurrent syncope-unclear etiology, possibly medication induced (anti-HTN meds and narcotics) on top of intravascular depletion -recent admission for syncope and work up unrevealing for cardiac source -cont tele monitoring, evaluate for arrhythmia induced -echo and carotid doppler and holter monitor from recent admission showed no sig Valvular abnl, no sig carotid stenosis, and no sig arrhythmia -check repeat cardiac enzymes -labs c/w intravascular depletion, check orthostatic BP -recc neuro evaluation
[2017-01-12] MEDS ORDERED: TAMSULOSIN HCL 0.4 MG CAP.ER.24H (FP) PO SCH (08:30)
[2017-01-12 08:35] LABS: ANION GAP 10 (8-16); CALCIUM 8.9 mg/dL (8.5-10.1); CO2 25 mmol/L (21-32); COCKROFT - GAULT 52.76; CREATININE 1.4 mg/dL (0.7-1.3); GLUCOSE,RANDOM 83 mg/dL (74-106); PHOSPHOROUS 4.4 mg/dL (2.5-4.9); THYROID STIMULATING HORMONE 0.49 uIU/ml (0.358-3.74)
[2017-01-12] MEDS ORDERED: PANTOPRAZOLE 40 MG TABLET (FP) ONE (08:42)
[2017-01-12] MEDS ORDERED: LISINOPRIL 20 MG TABLET (FP) ONE (08:42)
[2017-01-12] MEDS ORDERED: TAMSULOSIN HCL 0.4 MG CAP.ER.24H (FP) ONE (08:43)
[2017-01-12 09:05] LABS: TROPONIN I < 0.02 ng/ml (0.00-0.05)
[2017-01-12] MEDS: PANTOPRAZOLE 40 MG TABLET (FP) PO SCH ×2 (09:21→21:31)
[2017-01-12] MEDS: LISINOPRIL 20 MG TABLET (FP) PO SCH ×2 (09:21→21:32)
--- NOTE | 2017-01-12 15:34 | EKG ---
Test Reason : Blood Pressure : / mmHG Vent. Rate : 094 BPM Atrial Rate : 094 BPM P-R Int : 182 ms QRS Dur : 134 ms QT Int : 382 ms P-R-T Axes : 027 -61 096 degrees QTc Int : 477 ms NORMAL SINUS RHYTHM LEFT AXIS DEVIATION LEFT BUNDLE BRANCH BLOCK ABNORMAL ECG WHEN COMPARED WITH ECG OF 19-NOV-2016 08:47, PREMATURE VENTRICULAR COMPLEXES ARE NO LONGER PRESENT Confirmed by KADEN BATISTA, EMERSON ([id number]) on 01/12/2017 3:34:21 PM Referred By: Confirmed By:EMERSON ALFONSO MD
--- NOTE | 2017-01-12 15:37 | PN ---
Physical Exam: SUBJECTIVE: Patient seen and examined. He complains of feeling dizzy and weak. OBJECTIVE: Vital Signs Period Temp Pulse Resp BP Sys/Suazo Pulse Ox Last 24 Hr 98.5 F-98.7 F 75-100 15-22 109-150/74-92 94-99 GENERAL: The patient is awake, alert, and fully oriented, in no acute distress. LUNGS: Breath sounds equal, clear to auscultation bilaterally, no wheezes, no crackles, no accessory muscle use. HEART: Regular rate and rhythm, S1, S2 without murmur, rub or gallop. ABDOMEN: Soft, nontender, nondistended, normoactive bowel sounds, no guarding, no rebound, no hepatosplenomegaly, no masses. EXTREMITIES: 2+ pulses, warm, well-perfused, no edema. Laboratory Results - last 24 hr 01/12/17 06:10 Sodium 141 Potassium 4.4 Chloride 106 Carbon Dioxide 25 Anion Gap 10 BUN 29 H Creatinine 1.4 H Random Glucose 83 D Calcium 8.9 Phosphorus 4.4 D Creatine Kinase 81 Troponin I < 0.02 TSH 0.49 D Active Medications Generic Name Dose Route Start Last Admin Trade Name Freq PRN Reason Stop Dose Admin Diltiazem HCl 120 mg 01/12/17 10:00 01/12/17 09:20 Cardizem Cd - PO 120 mg DAILY SIENA Administration Sodium Chloride 1,000 mls @ 100 mls/hr 01/12/17 02:30 01/12/17 02:38 Normal Saline - IV 100 mls/hr ASDIR SIENA Administration Lisinopril 20 mg 01/12/17 10:00 01/12/17 09:21 Prinivil PO 20 mg BID SIENA Administration Magnesium Hydroxide 30 ml 01/12/17 02:28 Milk Of Magnesia - PO Q8H PRN CONSTIPATION Ondansetron HCl 4 mg 01/12/17 02:22 01/12/17 04:42 Zofran Injection IVPB 4 mg Q6H PRN Administration NAUSEA Pantoprazole Sodium 40 mg 01/12/17 10:00 01/12/17 09:21 Protonix - PO 40 mg BID SIENA Administration Tamsulosin HCl 0.8 mg 01/12/17 08:30 01/12/17 09:20 Flomax - PO 0.8 mg DAILY@0830 SIENA Administration ASSESSMENT/PLAN: This is a 71 year old man with a history of PAF, HTN, hyperlipidemia, CKD stage 3, nephrolithiasis, BPH who presented to the ER after passing out. 1. Syncope - Possibly secondary to medications - Xanax, oxycodone, Baclofen, Trazodone, Ambien held - Recent work-up, including echo, Holter, unrevealing - Recent carotid dopplers showed no hemodynamically significant stenosis of ICAs, critical stenosis of left ECA and >75% stenosis of right ECA - Continue to monitor for arrhythmia - Continue IV fluid for dehydration - Monitor orthostatic vitals 2. Dehydration - Continue IV fluid - Continue to monitor BUN, creatinine 3. HTN - Continue Cardizem CD, Lisinopril 4. Anxiety and depression - Trazodone and Xanax held as they may have contributed to syncope 5. BPH - Discontinue Flomax as it can cause syncope 6. Stage 3 CKD - Baseline creatinine 1.2-1.4 7. Hyperlipidemia 8. Chronic back pain - Percocet, Baclofen held as they may have contributed to syncope Visit type - Emergency Visit Emergency Visit: Yes ED Registration Date: 01/12/17 Care time: The patient presented to the Emergency Department on the above date and was hospitalized for further evaluation of their emergent condition. - New Patient This patient is new to me today: Yes Date on this admission: 01/12/17 - Critical Care Critical Care patient: No - Discharge Referral Referred to [facility] Med [facility] No
[2017-01-12] MEDS: MAGNESIUM HYDROXIDE 400 MG/5 ML PO PRN (21:44)
[2017-01-13] MEDS ORDERED: diphenhydrAMINE HCL 25 MG CAPSULE (FP) PO ONE ×2 (00:47→23:16)
[2017-01-13] MEDS: SODIUM CHLORIDE 1,000 ML IV SCH (03:15)
[2017-01-13 08:02] LABS: MCH 34.2 pg (25.7-33.7); MCHC 34.1 g/dl (32.0-35.9); MEAN CELL VOLUME 100.2 fl (80-96); MEAN PLT VOLUME 9.4 fl (7.5-11.1); PLATELET COUNT 167 K/MM3 (134-434); RDW 14.3 % (11.9-15.9)
[2017-01-13 08:28] LABS: CALCIUM 8.9 mg/dL (8.5-10.1); COCKROFT - GAULT 46.16; CREATININE 1.6 mg/dL (0.7-1.3)
[2017-01-13] MEDS: Methylnaltrexone Bromide 12 MG/0.6 ML KIT SQ SCH (10:03)
[2017-01-13] MEDS: PANTOPRAZOLE 40 MG TABLET (FP) PO SCH ×2 (10:03→23:45)
[2017-01-13] MEDS ORDERED: SODIUM CHLORIDE 1,000 ML IV STA (10:47)
--- NOTE | 2017-01-13 12:16 | PN ---
Physical Exam: SUBJECTIVE: Patient states he still feels dizzy and bloated. He c/o constipation and stated he has not moved his bowel for days. No fever, chills, chest pain, sob, n/v. OBJECTIVE: Vital Signs Period Temp Pulse Resp BP Sys/Suazo Pulse Ox Last 24 Hr 98.3 F-98.5 F 70-100 16-22 105-147/66-83 98-100 GENERAL: AAO x 3, in no distress EYES: PERRLA. ENT: oropharynx clear without exudates, moist mucous membranes. LUNGS:CTAB HEART: RRR, S1, S2 without murmur, rub or gallop. ABDOMEN: Soft, nontender, nondistended, normoactive bowel sounds, no guarding, no rebound, no hepatosplenomegaly EXTREMITIES: 2+ pulses, warm, well-perfused, no edema. SKIN: normal turgor, no rashes or lesions noted, cap refill < 2 secs CBCD WBC 8.0 K/mm3 (4.0-10.0) 01/13/17 06:05 RBC 4.09 M/mm3 (4.00-5.60) 01/13/17 06:05 Hgb 14.0 GM/dL (11.7-16.9) 01/13/17 06:05 Hct 41.0 % (35.4-49) 01/13/17 06:05 MCV 100.2 fl (80-96) H 01/13/17 06:05 MCHC 34.1 g/dl (32.0-35.9) 01/13/17 06:05 RDW 14.3 % (11.9-15.9) 01/13/17 06:05 Plt Count 167 K/MM3 (134-434) 01/13/17 06:05 MPV 9.4 fl (7.5-11.1) 01/13/17 06:05 CMP Sodium 141 mmol/L (136-145) 01/13/17 06:05 Potassium 4.5 mmol/L (3.5-5.1) 01/13/17 06:05 Chloride 106 mmol/L (98-107) 01/13/17 06:05 Carbon Dioxide 24 mmol/L (21-32) 01/13/17 06:05 Anion Gap 11 (8-16) 01/13/17 06:05 BUN 30 mg/dL (7-18) H 01/13/17 06:05 Creatinine 1.6 mg/dL (0.7-1.3) H 01/13/17 06:05 Creat Clearance w eGFR 49.68 (>60) 01/11/17 21:10 Calcium 8.9 mg/dL (8.5-10.1) 01/13/17 06:05 Total Bilirubin 0.3 mg/dL (0.2-1.0) D 01/11/17 21:10 AST 20 U/L (15-37) 01/11/17 21:10 ALT 32 U/L (12-78) D 01/11/17 21:10 Alkaline Phosphatase 51 U/L (45-117) 01/11/17 21:10 Total Protein 6.5 g/dl (6.4-8.2) 01/11/17 21:10 Albumin 3.9 g/dl (3.4-5.0) 01/11/17 21:10 Intake & Output 01/10/17 01/11/17 01/12/17 01/13/17 23:59 23:59 23:59 23:59 Intake Total 420 200 Balance 420 200 Weight 79.379 kg 79.379 kg Urine Test Results Urine Color Straw 01/11/17 02:50 Urine Appearance Clear 01/11/17 02:50 Urine pH 6.0 (5.0-8.0) 01/11/17 02:50 Ur Specific [place] 1.015 (1.005-1.025) 01/11/17 02:50 Urine Protein Negative (NEGATIVE) 01/11/17 02:50 Urine Glucose (UA) Negative (NEGATIVE) 01/11/17 02:50 Urine Ketones Negative (NEGATIVE) 01/11/17 02:50 Urine Blood Negative (NEGATIVE) 01/11/17 02:50 Urine Nitrite Negative (NEGATIVE) 01/11/17 02:50 Urine Bilirubin Negative (NEGATIVE) 01/11/17 02:50 Ur Leukocyte Esterase 2+ (NEGATIVE) H D 01/11/17 02:50 Urine RBC 1 /hpf (0-3) 01/11/17 02:50 Urine WBC 10 /hpf (3-5) 01/11/17 02:50 Ur Epithelial Cells Rare /hpf (FEW) 01/11/17 02:50 Urine Mucus Rare 01/11/17 02:50 Active Medications Generic Name Dose Route Start Last Admin Trade Name Freq PRN Reason Stop Dose Admin Diltiazem HCl 120 mg 01/12/17 10:00 01/13/17 10:03 Cardizem Cd - PO 120 mg DAILY SIENA Administration Sodium Chloride 1,000 mls @ 100 mls/hr 01/12/17 02:30 01/13/17 03:15 Normal Saline - IV 100 mls/hr ASDIR SIENA Administration Magnesium Hydroxide 30 ml 01/12/17 02:28 01/12/17 21:44 Milk Of Magnesia - PO 30 ml Q8H PRN Administration CONSTIPATION Methylnaltrexone [place] 12 mg 01/13/17 10:00 01/13/17 10:03 Relistor - SQ 12 mg DAILY SIENA Administration Ondansetron HCl 4 mg 01/12/17 02:22 01/12/17 04:42 Zofran Injection IVPB 4 mg Q6H PRN Administration NAUSEA Pantoprazole Sodium 40 mg 01/12/17 10:00 01/13/17 10:03 Protonix - PO 40 mg BID SIENA Administration IMAING CXR on 01/11: no acute finding Spine CT on 01/11: no acute finding Head CT on 01/11: no acute finding ASSESSMENT/PLAN: 71 yo M with h/o paroxysmal a-fib on cardizem, HTN, HLD, CKD stage 3, nephrolithiasis, BPH admitted to telemetry for syncope workup. Syncope - Cont. to feel dizzy - Likely 2/2 medications vs. vasovagal vs. neurogenic - Cont. to hold xanax, oxycodone, baclofen, trazodone, ambien - Cardiac workup has been negative - Orthostatic BP negative - Neuro consult Acute kidney injury, in the setting of CKD stage 3 - Slightly worsening Cr today (1.4 to 1.6) - Will give 1L bolus of IVF in addition to SIENA IVF - Bladder scan negative for obstruction - Hold lisinopril - Renal U/S if Cr cont. to worsen A-fib, paroxysmal - Rate and rhythm controlled - Not on AC due to patient refuses it - Cont. cardizem HTN - Hold Lisinopril Anxiety and depression - Trazodone and Xanax held Chronic back pain - Percocet, Baclofen held FEN - SIENA IVF 100cc/hr + 1L bolus - Lytes normal - Na+ controlled diet Prophylaxis - DVT: SCDs - GI: not indicated Dispo - Cont. to monitor - Awaiting Cr to return to baseline Visit type - Emergency Visit Emergency Visit: No - New Patient This patient is new to me today: No - Critical Care Critical Care patient: No
--- NOTE | 2017-01-13 13:11 | PN ---
Teaching Attending Note Name of Resident: Alvaro Whatley ATTENDING PHYSICIAN STATEMENT I saw and evaluated the patient. I reviewed the resident's note and discussed the case with the resident. I agree with the resident's findings and plan as documented. SUBJECTIVE: Patient is sitting in chair and says he feels like he is going to pass out. OBJECTIVE: Vital Signs Period Temp Pulse Resp BP Sys/Suazo Pulse Ox Last 24 Hr 98.3 F-98.8 F 70-100 20-22 105-112/66-80 98-100 ASSESSMENT AND PLAN: This is a 71 year old man with a history of PAF, HTN, hyperlipidemia, CKD stage 3, nephrolithiasis, BPH who presented to the ER after passing out. 1. 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 Dehydration - Continue IV fluid - Continue to monitor BUN, creatinine 3. HTN - Continue Cardizem CD - Hold Lisinopril secondary to increasing creatinine 4. Anxiety and depression - Trazodone and Xanax held as they may have contributed to syncope 5. BPH - Discontinue Flomax as it can cause syncope 6. Stage 3 CKD - Baseline creatinine 1.2-1.4 7. Hyperlipidemia 8. Chronic back pain - Percocet, Baclofen held as they may have contributed to syncope
--- NOTE | 2017-01-13 14:25 | PN ---
Progress Note, Physician History of Present Illness: 71 year old man h/o HTN, HLD, AFib, LBBB, COPD, chronic pain, recurrent syncope including recent admission for syncope, admitted with recurrent episode of syncope, generalized weakness, chronic pain. He states that yesterday he was in pain and his BP was elevated so he took multiple pain medications and multiple anti-HTN meds. . He then reports multiple episodes of LOC. Denies any chest pain, worsening of chronic sob, pnd, orthopnea, or LE edema. No palpitations. - Current Medication List Current Medications: Active Medications Diltiazem HCl (Cardizem Cd -) 120 mg PO DAILY [facility] Last Admin: 01/13/17 10:03 Dose: 120 mg Sodium Chloride (Normal Saline -) 1,000 mls @ 100 mls/hr IV ASDIR [facility] Last Admin: 01/13/17 03:15 Dose: 100 mls/hr Magnesium Hydroxide (Milk Of Magnesia -) 30 ml PO Q8H PRN PRN Reason: CONSTIPATION Last Admin: 01/12/17 21:44 Dose: 30 ml Methylnaltrexone [place] (Relistor -) 12 mg SQ DAILY [facility] Last Admin: 01/13/17 10:03 Dose: 12 mg Ondansetron HCl (Zofran Injection) 4 mg IVPB Q6H PRN PRN Reason: NAUSEA Last Admin: 01/12/17 04:42 Dose: 4 mg Pantoprazole Sodium (Protonix -) 40 mg PO BID [facility] Last Admin: 01/13/17 10:03 Dose: 40 mg - Objective Vital Signs: Vital Signs Temperature 98.8 F 01/13/17 10:00 Pulse Rate 88 01/13/17 10:00 Respiratory Rate 22 01/13/17 10:00 Blood Pressure 107/75 01/13/17 10:00 O2 Sat by Pulse Oximetry (%) 98 01/13/17 10:00 Eyes: Yes: WNL, Conjunctiva Clear, EOM Intact HENT: Yes: WNL, Atraumatic, Normocephalic Neck: Yes: WNL, Supple, Trachea Midline Cardiovascular: Yes: WNL, Regular Rate and Rhythm Respiratory: Yes: WNL, Regular, CTA Bilaterally Gastrointestinal: Yes: WNL, Normal Bowel Sounds Genitourinary: Yes: WNL Musculoskeletal: Yes: WNL Extremities: Yes: WNL Edema: No Integumentary: Yes: WNL Neurological: Yes: WNL, Alert, Oriented ...Motor Strength: WNL Psychiatric: Yes: WNL Labs: CBC, BMP 01/13/17 06:05 01/13/17 06:05 INR, PTT INR 1.00 (0.82-1.09) 01/11/17 21:10 Assessment/Plan 71 year old man h/o HTN, HLD, AFib, LBBB, COPD, chronic pain, recurrent syncope including recent admission for syncope, admitted with recurrent episode of syncope, generalized weakness, chronic pain. He states that yesterday he was in pain and his BP was elevated so he took multiple pain medications and multiple anti-HTN meds. He then reports multiple episodes of LOC. Recurrent syncope-unclear etiology, possibly medication induced (anti-HTN meds and narcotics) on top of intravascular depletion -recent admission for syncope and work up unrevealing for cardiac source -cont tele monitoring, evaluate for arrhythmia induced -echo and carotid doppler and holter monitor from recent admission showed no sig Valvular abnl, no sig carotid stenosis, and no sig arrhythmia -check repeat cardiac enzymes -labs c/w intravascular depletion, check orthostatic BP -[facility] neuro evaluation
[2017-01-14] MEDS: SODIUM CHLORIDE 1,000 ML IV SCH (06:44)
[2017-01-14 07:29] LABS: COCKROFT - GAULT 52.76; CREATININE 1.4 mg/dL (0.7-1.3)
[2017-01-14] MEDS ORDERED: PT OWN MED DRAWER 7, Y5N ONE (08:49)
[2017-01-14] MEDS: PANTOPRAZOLE 40 MG TABLET (FP) PO SCH ×2 (09:09→22:01)
--- NOTE | 2017-01-14 10:31 | PN ---
Progress Note, Physician History of Present Illness: 71 year old man h/o HTN, HLD, AFib, LBBB, COPD, chronic pain, recurrent syncope including recent admission for syncope, admitted with recurrent episode of syncope, generalized weakness, chronic pain. He states that yesterday he was in pain and his BP was elevated so he took multiple pain medications and multiple anti-HTN meds. . He then reports multiple episodes of LOC. Denies any chest pain, worsening of chronic sob, pnd, orthopnea, or LE edema. No palpitations. - Current Medication List Current Medications: Active Medications Diltiazem HCl (Cardizem Cd -) 120 mg PO DAILY [facility] Last Admin: 01/14/17 09:09 Dose: 120 mg Sodium Chloride (Normal Saline -) 1,000 mls @ 100 mls/hr IV ASDIR [facility] Last Admin: 01/14/17 06:44 Dose: 100 mls/hr Magnesium Hydroxide (Milk Of Magnesia -) 30 ml PO Q8H PRN PRN Reason: CONSTIPATION Last Admin: 01/12/17 21:44 Dose: 30 ml Methylnaltrexone [place] (Relistor -) 12 mg SQ DAILY [facility] Last Admin: 01/13/17 10:03 Dose: 12 mg Ondansetron HCl (Zofran Injection) 4 mg IVPB Q6H PRN PRN Reason: NAUSEA Last Admin: 01/12/17 04:42 Dose: 4 mg Pantoprazole Sodium (Protonix -) 40 mg PO BID [facility] Last Admin: 01/14/17 09:09 Dose: 40 mg - Objective Vital Signs: Vital Signs Temperature 98.5 F 01/14/17 05:59 Pulse Rate 78 01/14/17 05:59 Respiratory Rate 20 01/14/17 05:59 Blood Pressure 122/76 01/14/17 05:59 O2 Sat by Pulse Oximetry (%) 95 01/13/17 21:28 Eyes: Yes: WNL, Conjunctiva Clear, EOM Intact HENT: Yes: WNL, Atraumatic, Normocephalic Neck: Yes: WNL, Supple, Trachea Midline Cardiovascular: Yes: WNL, Regular Rate and Rhythm Respiratory: Yes: WNL, Regular, CTA Bilaterally Gastrointestinal: Yes: WNL, Normal Bowel Sounds Genitourinary: Yes: WNL Musculoskeletal: Yes: WNL Extremities: Yes: WNL Edema: No Integumentary: Yes: WNL Neurological: Yes: WNL, Alert, Oriented ...Motor Strength: WNL Psychiatric: Yes: WNL Labs: CBC, BMP 01/13/17 06:05 01/14/17 05:35 INR, PTT INR 1.00 (0.82-1.09) 01/11/17 21:10 Assessment/Plan 71 year old man h/o HTN, HLD, AFib, LBBB, COPD, chronic pain, recurrent syncope including recent admission for syncope, admitted with recurrent episode of syncope, generalized weakness, chronic pain. He states that yesterday he was in pain and his BP was elevated so he took multiple pain medications and multiple anti-HTN meds. He then reports multiple episodes of LOC. Recurrent syncope-unclear etiology, possibly medication induced (anti-HTN meds and narcotics) on top of intravascular depletion -recent admission for syncope and work up unrevealing for cardiac source -d/c telemetry cardiac chu stable for outpatient f/u
--- NOTE | 2017-01-14 10:52 | EKG ---
Test Reason : Blood Pressure : / mmHG Vent. Rate : 079 BPM Atrial Rate : 079 BPM P-R Int : 164 ms QRS Dur : 136 ms QT Int : 402 ms P-R-T Axes : 027 -59 107 degrees QTc Int : 460 ms NORMAL SINUS RHYTHM LEFT AXIS DEVIATION LEFT BUNDLE BRANCH BLOCK ABNORMAL ECG WHEN COMPARED WITH ECG OF 11-JAN-2017 22:01, NO SIGNIFICANT CHANGE WAS FOUND Confirmed by KESHAWN LIVE MD ([id number]) on 01/14/2017 10:52:27 AM Referred By: RUI HANNAH Confirmed By:KESHAWN LIVE MD
[2017-01-14] MEDS ORDERED: SODIUM CHLORIDE 1,000 ML IV SCH (11:59)
--- NOTE | 2017-01-14 11:59 | PN ---
Physical Exam: SUBJECTIVE: Patient states he's more concerned with his sore throat and chronic lower back pain. He's reluctant to ambulate due to the pain. Small bowel movement. No fever , chills, chest pain, sob, n/v. OBJECTIVE: Vital Signs Period Temp Pulse Resp BP Sys/Suazo Pulse Ox Last 24 Hr 98.5 F-99.3 F 67-86 18-21 119-146/69-83 95-96 GENERAL: AAO x 3, in no distress EYES: PERRLA. ENT: oropharynx clear without exudates, moist mucous membranes. LUNGS:CTAB HEART: RRR, S1, S2 without murmur, rub or gallop. ABDOMEN: Soft, nontender, nondistended, normoactive bowel sounds, no guarding, no rebound, no hepatosplenomegaly EXTREMITIES: 2+ pulses, warm, well-perfused, no edema. SKIN: normal turgor, no rashes or lesions noted, cap refill < 2 secs CBC, BMP 01/14/17 05:35 Intake & Output 01/11/17 01/12/17 01/13/17 01/14/17 23:59 23:59 23:59 23:59 Intake Total 420 200 320 Balance 420 200 320 Weight 79.379 kg 79.379 kg Active Medications Generic Name Dose Route Start Last Admin Trade Name Freq PRN Reason Stop Dose Admin Diltiazem HCl 120 mg 01/12/17 10:00 01/14/17 09:09 Cardizem Cd - PO 120 mg DAILY SIENA Administration Sodium Chloride 1,000 mls @ 100 mls/hr 01/12/17 02:30 01/14/17 06:44 Normal Saline - IV 100 mls/hr ASDIR SIENA Administration Magnesium Hydroxide 30 ml 01/12/17 02:28 01/12/17 21:44 Milk Of Magnesia - PO 30 ml Q8H PRN Administration CONSTIPATION Methylnaltrexone [place] 12 mg 01/13/17 10:00 01/13/17 10:03 Relistor - SQ 12 mg DAILY SIENA Administration Ondansetron HCl 4 mg 01/12/17 02:22 01/12/17 04:42 Zofran Injection IVPB 4 mg Q6H PRN Administration NAUSEA Pantoprazole Sodium 40 mg 01/12/17 10:00 01/14/17 09:09 Protonix - PO 40 mg BID SIENA Administration IMAING CXR on 01/11: no acute finding Spine CT on 01/11: no acute finding Head CT on 01/11: no acute finding ASSESSMENT/PLAN: 71 yo M with h/o paroxysmal a-fib on cardizem, HTN, HLD, CKD stage 3, nephrolithiasis, BPH admitted to telemetry for syncope workup. Syncope - Less dizzy today - Likely 2/2 medications vs. vasovagal vs. neurogenic - Cont. to hold xanax, oxycodone, baclofen, trazodone, ambien - Cardiac workup has been negative - Orthostatic BP negative - Awaiting neuro consult Acute kidney injury, in the setting of CKD stage 3 - Cr returned to baseline - Cont. SIENA IVF - Bladder scan negative for obstruction - Hold lisinopril A-fib, paroxysmal - Rate and rhythm controlled - Not on AC due to patient refuses it - Cont. cardizem HTN - Hold Lisinopril Anxiety and depression - Trazodone and Xanax held Chronic back pain - Will restart percocet and baclofen FEN - SIENA IVF 75cc/hr - Lytes normal - Na+ controlled diet Prophylaxis - DVT: SCDs - GI: not indicated Dispo - May discharge after neuro consult Visit type - Emergency Visit Emergency Visit: No - New Patient This patient is new to me today: No - Critical Care Critical Care patient: No
--- NOTE | 2017-01-14 12:28 | PN ---
Teaching Attending Note Name of Resident: Alvaro Whatley ATTENDING PHYSICIAN STATEMENT I saw and evaluated the patient. I reviewed the resident's note and discussed the case with the resident. I agree with the resident's findings and plan as documented. SUBJECTIVE:continues to have dizzyness. not related to certain position or activity. occasionally has apraxia during these episodes at home that resolve when the dizzyness resolves. have been having intermittently for several months. this episode he states he did take his percocet and xanax prior to event but has not received any since admission and continues to have intermittent dizzyness. has not followed up with any doctors as its too difficult to make it the office. denies vertiginous symptoms, tinnitus, loss of vision OBJECTIVE: Last Vital Signs Temp Pulse Resp BP Pulse Ox 98.5 F 74 20 140/79 96 01/14/17 05:59 01/14/17 10:00 01/14/17 10:00 01/14/17 10:00 01/14/17 10:00 General NAD CV S1 S2 RRR no murmur/rub/gallop no carotid bruit Lungs CTA B/L no wheezing/rales/rhonchi Neuro CN grossly intact. refused carl hallpike manuever. refused to stand ASSESSMENT AND PLAN: 71 yo M with PMH PAF, HTN, hyperlipidemia, CKD stage 3, nephrolithiasis, BPH who presented to the ER after passing out. 1. Syncope- Possibly secondary to medications and dehydration. syncope workup last admission unrevealing. no events on cardiac monitoring this admission. evaluated by cardio. agree with neuro evaluation as was not done previously. possible hypoperfusion during these events. CT head negative for acute pathology. orthostatics negative on admission. cont to hold acei. will need to re-start opiates to prevent withdrawal. will spread out duration to prevent hypotension from this. explained to pt the possibility of this causing hypotension. 2. Dehydration- resolved. d/c ivf. 3. HTN - cont cont cardizem. hold acei on discharge. not required at this time. 4. Anxiety and depression- Trazodone and Xanax held as they may have contributed to syncope 5. BPH - Discontinue Flomax as it can cause syncope 6. ACute on Chronic Stage 3 CKD- Baseline creatinine 1.2-1.4. now at baseline 7. Hyperlipidemia 8. Chronic back pain- will re-start percocet but increase frequency to Q8H as this can lead to hypotension.
[2017-01-14] MEDS: LIDOCAINE 5% TOPICAL PATCH TP SCH (18:45)
--- NOTE | 2017-01-14 19:17 | CONSULT ---
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 No LOC. No diaphoresis , palpitations, etc. Chronic B/L leg pain and paresthesia, especially at night and when immobile. LS laminectomies x2 without benefit. On chronic pain Rx with oxycodone. Now increasing numbness and stiffness in legs. Barely ambulates with walker. Homebound. Incontinent of urine. CT of brain (reviewed): Diffuse atrophy, especially temporal lobes (L>R) and enlargement of lateral and third ventricles. 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 No obvious canal stenosis or cord compression. RAINER: No bruits. No head trauma. LS scars. Decreased neck ROM. NEURO: Cannot give month. Decreased recall. +Glabella. Fluent speech. CN II-XII: Normal Motor: No drift. Normalstrength. Rigid tone both legs. +Cogwheel rigidity. Decreased PHUONG's. Brisk reflexes. Crossed adduction both legs. B/L [place]. Coord: No FTN Dystaxia Sensory: Decreased vibration to the ankles Gait: Stands with assistance. Frozen. IMP: 1. Moderate OMS, ataxia and incontinence supporting hydrocephalus. 2. Extrapyramidal features c/w early Parkinson's. 3. Chronic pain due to Restless Legs Syndrome. 4. Stereotyped obscurations of consciousness: Syncopy vs. Seizures SUGGEST: D/C BP Meds. Orthostatic BPs. MRI of brain and c-spine (both C-) and EEG. Check B12, TSH, RPR Pramipexole (0.125 mg) and Sinemet 12.5/50 Both TID with meals. Can increase gradually if no orthostatic BP. PT for gait with walker. May D/C on seizure therapy and observe as out patient. Thank you very much, Gerald Quan MD
[2017-01-14] MEDS: LIDOCAINE PATCH REMOVAL MC SCH (22:01)
[2017-01-14] MEDS: PRAMIPEXOLE DIHYDROCHLORIDE 0.125 MG TABLET PO SCH (22:23)
[2017-01-15] MEDS ORDERED: PHENOL 177 ML SPRAY BOTTLE MM PRN (01:19)
[2017-01-15] MEDS ORDERED: diphenhydrAMINE HCL 25 MG CAPSULE (FP) PO ONE (01:20)
--- NOTE | 2017-01-15 01:22 | HOSP ---
Subjective - Review of Symptoms Events since last encounter: Pt c/o of sore throat, itchiness on arms. Pt states he wants to go home. Pt also states he is claustrophobic and requires medication before going into MRIs. I spoke with pt regarding staying overnight and continuing with medical management and pt is in agreement to stay overnight. He would not like benadryl at this time but I have placed a PRN order for tonight for his itchiness. For his sore throat, chloarseptic spray ordered. Physical Examination Vital Signs: Vital Signs Temperature 97.6 F 01/14/17 23:15 Pulse Rate 76 01/14/17 23:15 Respiratory Rate 20 01/14/17 23:15 Blood Pressure 142/93 01/14/17 23:15 O2 Sat by Pulse Oximetry (%) 96 01/14/17 10:00 Labs: CBC, BMP 01/13/17 06:05 01/14/17 05:35 Visit type - Emergency Visit Emergency Visit: Yes ED Registration Date: 01/12/17 Care time: The patient presented to the Emergency Department on the above date and was hospitalized for further evaluation of their emergent condition. - New Patient This patient is new to me today: Yes Date on this admission: 01/15/17 - Critical Care Critical Care patient: No
[2017-01-15] MEDS: PRAMIPEXOLE DIHYDROCHLORIDE 0.125 MG TABLET PO SCH ×3 (06:38→21:38)
[2017-01-15] MEDS ORDERED: LORAZEPAM CARPU-JECT 2 MG/ML DISP.SYRIN IM ONE (07:33)
[2017-01-15] MEDS ORDERED: OXYCODONE/APAP 5/325MG COMBO TABLET PO PRN ×2 (07:41→07:43)
[2017-01-15 09:29] LABS: CALCIUM 8.5 mg/dL (8.5-10.1); COCKROFT - GAULT 56.82; CREATININE 1.3 mg/dL (0.7-1.3)
[2017-01-15] MEDS ORDERED: PT OWN MED DRAWER 7, Y5N ONE ×3 (10:41→21:56)
[2017-01-15] MEDS: PANTOPRAZOLE 40 MG TABLET (FP) PO SCH ×2 (10:44→21:37)
[2017-01-15] MEDS: Methylnaltrexone Bromide 12 MG/0.6 ML KIT SQ SCH (10:44)
[2017-01-15] MEDS: LIDOCAINE 5% TOPICAL PATCH TP SCH (10:45)
--- NOTE | 2017-01-15 11:06 | PN ---
Progress Note, Physician History of Present Illness: 71 year old man h/o HTN, HLD, AFib, LBBB, COPD, chronic pain, recurrent syncope including recent admission for syncope, admitted with recurrent episode of syncope, generalized weakness, chronic pain. He states that yesterday he was in pain and his BP was elevated so he took multiple pain medications and multiple anti-HTN meds. . He then reports multiple episodes of LOC. Denies any chest pain, worsening of chronic sob, pnd, orthopnea, or LE edema. No palpitations. - Current Medication List Current Medications: Active Medications Acetaminophen (Tylenol -) 325 mg PO Q6H PRN PRN Reason: PAIN Carbidopa/Levodopa (Sinemet *Cr* 25/100 -) 0.5 combo PO TIDAC [facility] Stop: 01/17/17 16:31 Last Admin: 01/15/17 10:44 Dose: 0.5 combo Carbidopa/Levodopa (Sinemet *Cr* 25/100 -) 1 combo PO TIDAC [facility] Lidocaine (Lidoderm Patch -) 1 patch TP DAILY [facility] Last Admin: 01/15/17 10:45 Dose: 1 patch Magnesium Hydroxide (Milk Of Magnesia -) 30 ml PO Q8H PRN PRN Reason: CONSTIPATION Last Admin: 01/12/17 21:44 Dose: 30 ml Methylnaltrexone [place] (Relistor -) 12 mg SQ DAILY [facility] Last Admin: 01/15/17 10:44 Dose: 12 mg Miscellaneous (Lidoderm Patch Removal) 1 each MC DAILY@2200 [facility] Last Admin: 01/14/17 22:01 Dose: 1 each Ondansetron HCl (Zofran Injection) 4 mg IVPB Q6H PRN PRN Reason: NAUSEA Last Admin: 01/12/17 04:42 Dose: 4 mg Oxycodone HCl (Roxicodone -) 5 mg PO Q6H PRN PRN Reason: PAIN Pantoprazole Sodium (Protonix -) 40 mg PO BID [facility] Last Admin: 01/15/17 10:44 Dose: 40 mg Phenol/Menthol (Chloraseptic -) 1 spray MM Q6HPO PRN PRN Reason: SORE THROAT Last Admin: 01/15/17 06:40 Dose: 1 spray Pramipexole Dihydrochloride (Mirapex -) 0.125 mg PO TID [facility] Last Admin: 01/15/17 06:38 Dose: 0.125 mg - Objective Vital Signs: Vital Signs Temperature 99.2 F 01/15/17 08:36 Pulse Rate 81 01/15/17 08:36 Respiratory Rate 20 01/15/17 10:00 Blood Pressure 145/81 01/15/17 08:36 O2 Sat by Pulse Oximetry (%) 96 01/15/17 10:00 Eyes: Yes: WNL, Conjunctiva Clear, EOM Intact HENT: Yes: WNL, Atraumatic, Normocephalic Neck: Yes: WNL, Supple, Trachea Midline Cardiovascular: Yes: WNL, Regular Rate and Rhythm Respiratory: Yes: WNL, Regular, CTA Bilaterally Gastrointestinal: Yes: WNL, Normal Bowel Sounds Genitourinary: Yes: WNL Musculoskeletal: Yes: WNL Extremities: Yes: WNL Edema: No Integumentary: Yes: WNL Neurological: Yes: WNL, Alert, Oriented ...Motor Strength: WNL Psychiatric: Yes: WNL Labs: CBC, BMP 01/13/17 06:05 01/15/17 08:35 INR, PTT INR 1.00 (0.82-1.09) 01/11/17 21:10 Assessment/Plan 71 year old man h/o HTN, HLD, AFib, LBBB, COPD, chronic pain, recurrent syncope including recent admission for syncope, admitted with recurrent episode of syncope, generalized weakness, chronic pain. He states that yesterday he was in pain and his BP was elevated so he took multiple pain medications and multiple anti-HTN meds. He then reports multiple episodes of LOC. Recurrent syncope-unclear etiology, possibly medication induced (anti-HTN meds and narcotics) on top of intravascular depletion -recent admission for syncope and work up unrevealing for cardiac source -d/c telemetry cardiac chu stable for outpatient f/u
[2017-01-15] MEDS: oxyCODONE HCL 5 MG TABLET PO PRN ×2 (12:50→18:54)
[2017-01-15] MEDS: ACETAMINOPHEN 325 MG TABLET (FP) PO PRN ×3 (12:53→18:54)
--- NOTE | 2017-01-15 15:22 | PN ---
Physical Exam: SUBJECTIVE: c/o persistent dizziness and lower back pain which all have been chronic. Small bowel movement. No fever, chills, chest pain, sob, n/v or urinary symptom. OBJECTIVE: Vital Signs Period Temp Pulse Resp BP Sys/Suazo Pulse Ox Last 24 Hr 98.2 F 85-90 21 132-142/87-91 GENERAL: AAO x 3, in no distress EYES: PERRLA. ENT: oropharynx clear without exudates, moist mucous membranes. LUNGS:CTAB HEART: RRR, S1, S2 without murmur, rub or gallop. ABDOMEN: Soft, nontender, nondistended, normoactive bowel sounds, no guarding, no rebound, no hepatosplenomegaly EXTREMITIES: 2+ pulses, warm, well-perfused, no edema. SKIN: normal turgor, no rashes or lesions noted, cap refill < 2 secs CMP Sodium 141 mmol/L (136-145) 01/15/17 08:35 Potassium 4.2 mmol/L (3.5-5.1) 01/15/17 08:35 Chloride 109 mmol/L (98-107) H 01/15/17 08:35 Carbon Dioxide 23 mmol/L (21-32) 01/15/17 08:35 Anion Gap 9 (8-16) 01/15/17 08:35 BUN 16 mg/dL (7-18) 01/15/17 08:35 Creatinine 1.3 mg/dL (0.7-1.3) 01/15/17 08:35 Creat Clearance w eGFR 49.68 (>60) 01/11/17 21:10 Calcium 8.5 mg/dL (8.5-10.1) 01/15/17 08:35 Total Bilirubin 0.3 mg/dL (0.2-1.0) D 01/11/17 21:10 AST 20 U/L (15-37) 01/11/17 21:10 ALT 32 U/L (12-78) D 01/11/17 21:10 Alkaline Phosphatase 51 U/L (45-117) 01/11/17 21:10 Total Protein 6.5 g/dl (6.4-8.2) 01/11/17 21:10 Albumin 3.9 g/dl (3.4-5.0) 01/11/17 21:10 Active Medications Generic Name Dose Route Start Last Admin Trade Name Freq PRN Reason Stop Dose Admin Acetaminophen 325 mg 01/15/17 08:44 01/15/17 12:53 Tylenol - PO 325 mg Q6H PRN Administration PAIN Carbidopa/Levodopa 0.5 combo 01/15/17 07:00 01/15/17 10:44 Sinemet *Cr* 25/100 - PO 01/17/17 16:31 0.5 combo TIDAC [facility] Administration Carbidopa/Levodopa 1 combo 01/18/17 07:00 Sinemet *Cr* 25/100 - PO TIDAC [facility] Lidocaine 1 patch 01/14/17 18:30 01/15/17 10:45 Lidoderm Patch - TP 1 patch DAILY [facility] Administration Magnesium Hydroxide 30 ml 01/12/17 02:28 01/12/17 21:44 Milk Of Magnesia - PO 30 ml Q8H PRN Administration CONSTIPATION Methylnaltrexone [place] 12 mg 01/13/17 10:00 01/15/17 10:44 Relistor - SQ 12 mg DAILY [facility] Administration Miscellaneous 1 each 01/14/17 22:00 01/14/17 22:01 Lidoderm Patch Removal MC 1 each DAILY@2200 [facility] Administration Ondansetron HCl 4 mg 01/12/17 02:22 01/12/17 04:42 Zofran Injection IVPB 4 mg Q6H PRN Administration NAUSEA Oxycodone HCl 5 mg 01/15/17 08:44 01/15/17 12:50 Roxicodone - PO 5 mg Q6H PRN Administration PAIN Pantoprazole Sodium 40 mg 01/12/17 10:00 01/15/17 10:44 Protonix - PO 40 mg BID [facility] Administration Phenol/Menthol 1 spray 01/15/17 01:19 01/15/17 06:40 Chloraseptic - MM 1 spray Q6HPO PRN Administration SORE THROAT Pramipexole Dihydrochloride 0.125 mg 01/14/17 22:00 01/15/17 14:28 Mirapex - PO 0.125 mg TID [facility] Administration IMAING CXR on 01/11: no acute finding Spine CT on 01/11: no acute finding Head CT on 01/11: no acute finding ASSESSMENT/PLAN: 71 yo M with h/o paroxysmal a-fib on cardizem, HTN, HLD, CKD stage 3, nephrolithiasis, BPH admitted to telemetry for syncope workup. Syncope - Still dizzy today - Medications vs. vasovagal vs. neurogenic - Cont. to hold xanax, baclofen, trazodone, ambien - Cardiac workup has been negative - Orthostatic BP negative - On Mirapex and sinemet for Parkinson's disease - f/u EEG and MRI brain and spine Acute kidney injury, in the setting of CKD stage 3 - Cr returned to baseline - d/c fluid - Hold lisinopril A-fib, paroxysmal - Rate and rhythm controlled - Not on AC due to patient refuses it - d/c cardizem, monitor BP HTN - Hold Lisinopril Anxiety and depression - Trazodone and Xanax held Chronic back pain - Hold baclofen - On percocet Q6H and oxycodone 5mg Q6H and lidoderm patch daily BPH - Hold flomax due to low BP FEN - No IVF indicated - Lytes normal - Na+ controlled diet Prophylaxis - DVT: SCDs - GI: on home protonix Dispo - May discharge tomorrow after MRI and EEG Visit type - Emergency Visit Emergency Visit: No - New Patient This patient is new to me today: No - Critical Care Critical Care patient: No - Discharge Referral Referred to [facility] Med P.C.: No
--- NOTE | 2017-01-15 15:48 | PN ---
Teaching Attending Note Name of Resident: Alvaro Whatley ATTENDING PHYSICIAN STATEMENT I saw and evaluated the patient. I reviewed the resident's note and discussed the case with the resident. I agree with the resident's findings and plan as documented. SUBJECTIVE:remains dizzy. unable to ambulate due to dizzyness and unsteady gait. denies CP, SOB,fever, chills OBJECTIVE: Last Vital Signs Temp Pulse Resp BP Pulse Ox 98.2 F 90 21 132/91 96 01/15/17 14:00 01/15/17 14:00 01/15/17 14:00 01/15/17 11:35 01/15/17 10:00 General NAD CV S1 S2 RRR no murmur/rub/gallop no carotid bruit Lungs CTA B/L no wheezing/rales/rhonchi ASSESSMENT AND PLAN: 71 yo M with PMH PAF, HTN, hyperlipidemia, CKD stage 3, nephrolithiasis, BPH who presented to the ER after passing out. 1. Syncope-moderate OMS, early parkinsons and syncope vs seziures. appreciate neuro evaluation. started on sinemet and parmipexole. MRI brain and cspine and EEG to r/o seizures as alternate pathology. will evaluate for improvement in symptoms. encouraged pt to participate with PT. 2. Dehydration- resolved. 3. HTN - d/c all antihypertensives at this time. will monitor. if elevated will re-start cardizem at lower dose 4. Anxiety and depression- Trazodone and Xanax held as they may have contributed to syncope 5. BPH - Discontinue Flomax as it can cause syncope 6. ACute on Chronic Stage 3 CKD- Baseline creatinine 1.2-1.4. now at baseline 7. Hyperlipidemia 8. Chronic back pain- improved with lidoderm patches. percocet prn pain
[2017-01-15] MEDS: ONDANSETRON 4 MG/2 ML VIAL IVPB PRN (21:42)
[2017-01-15] MEDS: LIDOCAINE PATCH REMOVAL MC SCH (22:00)
[2017-01-16] MEDS ORDERED: PT OWN MED DRAWER 7, Y5N ONE ×4 (05:48→21:08)
[2017-01-16] MEDS: PRAMIPEXOLE DIHYDROCHLORIDE 0.125 MG TABLET PO SCH ×3 (05:59→21:22)
[2017-01-16] MEDS: PANTOPRAZOLE 40 MG TABLET (FP) PO SCH ×2 (10:15→21:22)
[2017-01-16] MEDS: LIDOCAINE 5% TOPICAL PATCH TP SCH (10:17)
--- NOTE | 2017-01-16 11:09 | PN ---
Progress Note, Physician History of Present Illness: 71 year old man h/o HTN, HLD, AFib, LBBB, COPD, chronic pain, recurrent syncope including recent admission for syncope, admitted with recurrent episode of syncope, generalized weakness, chronic pain. He states that yesterday he was in pain and his BP was elevated so he took multiple pain medications and multiple anti-HTN meds. . He then reports multiple episodes of LOC. Denies any chest pain, worsening of chronic sob, pnd, orthopnea, or LE edema. No palpitations. - Current Medication List Current Medications: Active Medications Acetaminophen (Tylenol -) 325 mg PO Q6H PRN PRN Reason: PAIN Last Admin: 01/15/17 18:54 Dose: 325 mg Carbidopa/Levodopa (Sinemet *Cr* 25/100 -) 0.5 combo PO TIDAC [facility] Stop: 01/17/17 16:31 Last Admin: 01/16/17 10:15 Dose: 0.5 combo Carbidopa/Levodopa (Sinemet *Cr* 25/100 -) 1 combo PO TIDAC [facility] Lidocaine (Lidoderm Patch -) 1 patch TP DAILY [facility] Last Admin: 01/16/17 10:17 Dose: 1 patch Magnesium Hydroxide (Milk Of Magnesia -) 30 ml PO Q8H PRN PRN Reason: CONSTIPATION Last Admin: 01/12/17 21:44 Dose: 30 ml Methylnaltrexone [place] (Relistor -) 12 mg SQ DAILY [facility] Last Admin: 01/15/17 10:44 Dose: 12 mg Miscellaneous (Lidoderm Patch Removal) 1 each MC DAILY@2200 [facility] Last Admin: 01/15/17 22:00 Dose: 1 each Ondansetron HCl (Zofran Injection) 4 mg IVPB Q6H PRN PRN Reason: NAUSEA Last Admin: 01/15/17 21:42 Dose: 4 mg Oxycodone HCl (Roxicodone -) 5 mg PO Q6H PRN PRN Reason: PAIN Last Admin: 01/15/17 18:54 Dose: 5 mg Pantoprazole Sodium (Protonix -) 40 mg PO BID [facility] Last Admin: 01/16/17 10:15 Dose: 40 mg Phenol/Menthol (Chloraseptic -) 1 spray MM Q6HPO PRN PRN Reason: SORE THROAT Last Admin: 01/15/17 06:40 Dose: 1 spray Pramipexole Dihydrochloride (Mirapex -) 0.125 mg PO TID [facility] Last Admin: 01/16/17 05:59 Dose: 0.125 mg - Objective Vital Signs: Vital Signs Temperature 98.4 F 01/16/17 08:00 Pulse Rate 91 H 01/16/17 08:00 Respiratory Rate 18 01/16/17 08:00 Blood Pressure 152/101 01/16/17 08:00 O2 Sat by Pulse Oximetry (%) 96 01/15/17 18:00 Eyes: Yes: WNL, Conjunctiva Clear, EOM Intact HENT: Yes: WNL, Atraumatic, Normocephalic Neck: Yes: WNL, Supple, Trachea Midline Cardiovascular: Yes: Pulse Irregular, S1, S2 Respiratory: Yes: WNL, Regular, CTA Bilaterally Gastrointestinal: Yes: WNL, Normal Bowel Sounds Genitourinary: Yes: WNL Musculoskeletal: Yes: WNL Extremities: Yes: WNL Edema: No Integumentary: Yes: WNL Neurological: Yes: WNL, Alert, Oriented ...Motor Strength: WNL Psychiatric: Yes: WNL Labs: INR, PTT INR 1.00 (0.82-1.09) 01/11/17 21:10 Assessment/Plan 71 year old man h/o HTN, HLD, AFib, LBBB, COPD, chronic pain, recurrent syncope including recent admission for syncope, admitted with recurrent episode of syncope, generalized weakness, chronic pain. He states that yesterday he was in pain and his BP was elevated so he took multiple pain medications and multiple anti-HTN meds. He then reports multiple episodes of LOC. Recurrent syncope-unclear etiology, possibly medication induced (anti-HTN meds and narcotics) on top of intravascular depletion -recent admission for syncope and work up unrevealing for cardiac source -d/c telemetry cardiac chu stable for outpatient f/u
[2017-01-16] MEDS: oxyCODONE HCL 5 MG TABLET PO PRN ×3 (11:19→23:52)
[2017-01-16] MEDS ORDERED: SODIUM PHOSPHATE/NA BIPHOS 133 ML ENEMA PR ONE (11:20)
[2017-01-16] MEDS: ACETAMINOPHEN 325 MG TABLET (FP) PO PRN ×3 (11:21→23:51)
[2017-01-16] MEDS: MAGNESIUM HYDROXIDE 400 MG/5 ML PO PRN (11:22)
--- NOTE | 2017-01-16 12:22 | PN ---
Teaching Attending Note Name of Resident: Alvaro Whatley ATTENDING PHYSICIAN STATEMENT I saw and evaluated the patient. I reviewed the resident's note and discussed the case with the resident. I agree with the resident's findings and plan as documented. SUBJECTIVE:states he no longer feels dizzy but is overall weak. does not want to do any testing today because the "results dont matter". denies CP, SOB,fever , chills, N/V/C/D OBJECTIVE: Last Vital Signs Temp Pulse Resp BP Pulse Ox 98.4 F 91 H 18 152/101 96 01/16/17 08:00 01/16/17 08:00 01/16/17 08:00 01/16/17 08:00 01/15/17 18:00 General NAD CV S1 S2 RRR no murmur/rub/gallop no carotid bruit Lungs CTA B/L no wheezing/rales/rhonchi ASSESSMENT AND PLAN: 71 yo M with PMH PAF, HTN, hyperlipidemia, CKD stage 3, nephrolithiasis, BPH who presented to the ER after passing out. 1. Syncope-moderate OMS, early parkinsons and syncope vs seziures. appreciate neuro evaluation. started on sinemet and parmipexole with some improvement. initially agreeable to MRI and EEG studies, now refusing indicates testing doesnt matter. encouraged need to r/o other causes for his dizziness prior to him leaving. states he does not want any more testing. agreeable to continue with new medications and follow up with neuro. 2. Dehydration- resolved. 3. HTN - slightly above goal today. found out from RN that pt is taking lisinopril himself. denies on my questioning. will cont on discharge. hold other agents. 4. Anxiety and depression- Trazodone and Xanax held as they may have contributed to syncope 5. BPH - Discontinue Flomax as it can cause syncope 6. ACute on Chronic Stage 3 CKD- Baseline creatinine 1.2-1.4. now at baseline 7. Hyperlipidemia 8. Chronic back pain- improved with lidoderm patches. percocet prn pain 9. will d/c home today as pt is refusing other testing and his symptoms have improved. informed him need to follow up with neurology next week. stressed importance of medication compliance and need for follow up.
[2017-01-16] MEDS: Methylnaltrexone Bromide 12 MG/0.6 ML KIT SQ SCH (13:20)
--- NOTE | 2017-01-16 16:56 | DS ---
Physical Exam: SUBJECTIVE: Still c/o sore throat and lower back pain. Per nurse, he refused MRI last night. No fever, chills, chest pain, sob, n/v or urinary symptom. OBJECTIVE: Vital Signs Period Temp Pulse Resp BP Sys/Suazo Pulse Ox Last 24 Hr 98.3 F-98.5 F 72-103 18-22 146-163/68-101 95-96 PHYSICAL EXAM GENERAL: AAO x 3, in no distress EYES: PERRLA. ENT: oropharynx clear without exudates, no erythema, moist mucous membranes. LUNGS:CTAB HEART: RRR, S1, S2 without murmur, rub or gallop. ABDOMEN: Soft, nontender, nondistended, normoactive bowel sounds, no guarding, no rebound, no hepatosplenomegaly EXTREMITIES: 2+ pulses, warm, well-perfused, no edema. SKIN: normal turgor, no rashes or lesions noted, cap refill < 2 secs LABS HOSPITAL COURSE: Date of Admission:01/15/17 71 yo M with h/o paroxysmal a-fib on cardizem, HTN, HLD, CKD stage 3, nephrolithiasis, BPH admitted to telemetry for syncope workup. patient has been admitted numerous times for the same reason and all workup has been negative to date. His symptom this time is likely due to overdose on medications especially narcotics for pain and sleeping aid. His xanax, baclofen, trazodone, ambien were held. All cardiac workup has been negative. Orthosatic BP was unremarkable. Neurology was consulted to rule out any neurogenic etiology. Upon evaluation, patient was found to have moderate OMS, ataxia and incontinence consistent with hydrocephalus. His extrapyramidal features c/w early Parkinson' s. The chronic leg pain is likely due to Restless Legs Syndrome. MRI, MRA and EEG were recommended and patient is start on mirapex and sinemet for Parkinson' s disease. However, patient repeated refused MRI and finally agreed to EEG. He also suffers from chronic constipation secondary to chronic narcotic use for his black and leg pain. He's treated with relistor but he refused fleet enema. He's instructed to stop taking his blood pressure, sleeping aid, and anxielytic medications. He will continue on new medications given by neurology and follow up with PMD, Dr. Quan and Dr. Garcia within a week of discharge. Date of Discharge: 01/16/17 Minutes to complete discharge: 35 Discharge Summary Reason For Visit: SYNCOPE Current Active Problems BPH (benign prostatic hyperplasia) (Acute) Syncope (Acute) Carotid stenosis (Chronic) Depression (Chronic) HTN (hypertension) (Chronic) Hyperlipidemia (Chronic) LBBB (left bundle branch block) (Chronic) Osteoarthritis (Chronic) Polysubstance (excluding opioids) dependence (Chronic) SVT (supraventricular tachycardia) (Chronic) Condition: Stable - Instructions Diet, Activity, Other Instructions: Instruction for continuing care: You were admitted to the hospital because you felt dizzy. All work up on your heart has been negative. Your dizziness is probably due to early Parkinson's disease and medications especially your pain and sleeping pills. The neurologist wants to do MRI, MRA and EEG of your brain but you have refused the tests. The family welfare social work professor wants to discharge you to a rehab or half-way. But you also refused them. As a result, we are discharging you home. You need to do the following after you get home: 1. Stop taking cardizem and lisinopril all together, those medications can make you dizzy. 2. Stop taking xanax, baclofen, trazodone and ambien. 3. Take percocet every 6 hours as needed for back pain. Take zofran 8mg as needed for nausea and vomiting. 4. Start taking mirapex 0.125mg 3 times a day and sinemet 0.5 combo 3 times a day. 5. Start taking colace and senna for constipation, and use fleet enema once a week if the pills don't work. You may stop taking them once you have consistent bowel movement. 6. Go to see Dr. Bro and Dr. Garcia within a week. 7. Go to see Dr. Quan (brain doctor) within a week. Referrals: Marlys Bro MD [Staff Physician] - Gerald Quan MD [Staff Physician] - Bill Garcia MD [Staff Physician] - Disposition: HOME - Home Medications Comprehensive Discharge Medication List: Ambulatory Orders Pantoprazole Sodium [Protonix -] 40 mg PO BID #60 tablet.ec 07/26/15 Alendronate Na [Fosamax (Weekly)] 70 mg PO WEEKLY 08/22/16 Oxycodone HCl/Acetaminophen [Percocet 5-325 mg Tablet] 1 - 2 tab PO Q4H Magnesium Hydrox 2400MG/30Ml [Milk of Magnesia -] 30 ml PO Q8H PRN 01/11/17 Carbidopa/Levodopa *Cr* 25/100 [Sinemet *Cr* 25/100 -] 0.5 combo PO TIDAC #90 tab 01/16/17 Docusate Sodium [Colace -] 100 mg PO BID #60 capsule 01/16/17 Ondansetron HCl [Zofran] 8 mg PO Q8H PRN #14 tablet 01/16/17 Pramipexole Dihydrochloride [Mirapex -] 0.125 mg PO TID #90 tablet 01/16/17 Sennosides [Senna] 2 tab PO DAILY #30 tablet 01/16/17 Sodium Phosphate/Na Biphos [Fleet Adult Rectal Enema -] 133 ml RC WEEKLY PRN #4 enema 01/16/17 This patient is new to me today: No Emergency Visit: No Critical Care patient: No - Discharge Referral Referred to [facility] No
[2017-01-16] MEDS: LIDOCAINE PATCH REMOVAL MC SCH (22:00)
[2017-01-17] MEDS ORDERED: POLYETHYLENE GLYCOL 3350 119 GM BTL PO ONE
--- NOTE | 2017-01-17 00:02 | HOSP ---
Subjective - Review of Symptoms Events since last encounter: 71 yo M with h/o paroxysmal a-fib on cardizem, HTN, HLD, CKD stage 3, nephrolithiasis, BPH admitted for syncope workup. Called by nurse to evaluate patient for abdominal distention and patient wanting to sign out AMA. Subjective: Patient sitting in hallway in wheelchair. No new complaints. Still with back pain. Wanting to know when he can go home. General: No: Chills, Night Sweats, Fatigue HEENT: No: Head Aches, Visual Changes Pulmonary: No: Dyspnea, Cough, Pleuritic Chest Pain Cardiovascular: No: Chest Pain, Palpitations, Edema Gastrointestinal: Yes: Constipation. No: Nausea, Vomiting, Abdominal Pain Genitourinary: No: Dysuria, Frequency Musculoskeletal: Yes: Back Pain (right sided) Physical Examination Vital Signs: Vital Signs Temperature 99.1 F 01/16/17 18:00 Pulse Rate 85 01/16/17 18:00 Respiratory Rate 19 01/16/17 18:00 Blood Pressure 138/89 01/16/17 18:00 O2 Sat by Pulse Oximetry (%) 95 01/16/17 18:00 Constitutional: Yes: Calm HENT: Yes: WNL Cardiovascular: Yes: WNL, Regular Rate and Rhythm, S1, S2 Respiratory: Yes: Regular, CTA Bilaterally Gastrointestinal: Yes: Normal Bowel Sounds, Soft. No: Distention Musculoskeletal: Yes: Back Pain, Muscle Pain Extremities: No: Calf Tenderness Edema: No Peripheral Pulses: Left Radial: 2+, Right Radial: 2+, Left Doralis Pedis: 2+, Right Dorsalis Pedis: 2+ Neurological: Yes: Alert, Oriented Hospitalist Encounter Assessment: 71 yo M with h/o paroxysmal a-fib on cardizem, HTN, HLD, CKD stage 3, nephrolithiasis, BPH admitted for syncope workup. -Called by nurse due to patient wanting to sign out AMA. -As per chart last two documented progress notes indicate patient stable for discharge, unclear why patient is still here. -Nurse states patient had abdominal distension, not really evident on physical exam. -Patient does not have a ride at this hour. #constipation: -abd xray reviewed: no free air; loops of bowel with stool; no acute pathology -refused enema -added miralax to stool softener Visit type - Emergency Visit Emergency Visit: Yes ED Registration Date: 01/15/17 Care time: The patient presented to the Emergency Department on the above date and was hospitalized for further evaluation of their emergent condition. - New Patient This patient is new to me today: No - Critical Care Critical Care patient: No
[2017-01-17] MEDS: PRAMIPEXOLE DIHYDROCHLORIDE 0.125 MG TABLET PO SCH (06:34)
[2017-01-17] MEDS: oxyCODONE HCL 5 MG TABLET PO PRN (06:35)
--- NOTE | 2017-01-17 07:54 | PN ---
Teaching Attending Note Name of Resident: Alvaro Whatley ATTENDING PHYSICIAN STATEMENT I saw and evaluated the patient. I reviewed the resident's note and discussed the case with the resident. I agree with the resident's findings and plan as documented. SUBJECTIVE: The patient is a 71 yo M with a significant past medical history of PAF, HTN, hyperlipidemia, recurrent syncope, CKD stage 3, nephrolithiasis and BPH who was pending discharge yesterday and is awaiting discharge this morning. He has been seen by cardiology and neurology and cleared for discharge with further outpatient work-up. He was evaluated by the night team for possible abdominal distention noted by nursing. OBJECTIVE: Vitals noted Abd XRay report noted ASSESSMENT AND PLAN: -No evidence of high risk syncope Abd XRay reading noted without evidence of acute pathology He is refusing further inpatient care and requesting immediate discharge He will follow up with his PCP Resident to discharge See resident note for full details
[2017-01-17 08:38] VITALS: BP 166/105; PULSE 105; TEMP 98.5
[2017-01-17] MEDS: LIDOCAINE 5% TOPICAL PATCH TP SCH (09:28)
[2017-01-17] MEDS: PANTOPRAZOLE 40 MG TABLET (FP) PO SCH (09:28)
[2017-01-17] MEDS: Methylnaltrexone Bromide 12 MG/0.6 ML KIT SQ SCH (09:29)
--- NOTE | 2017-01-17 10:40 | PN ---
Progress Note, Physician History of Present Illness: 71 year old man h/o HTN, HLD, AFib, LBBB, COPD, chronic pain, recurrent syncope including recent admission for syncope, admitted with recurrent episode of syncope, generalized weakness, chronic pain. He states that yesterday he was in pain and his BP was elevated so he took multiple pain medications and multiple anti-HTN meds. . He then reports multiple episodes of LOC. Denies any chest pain, worsening of chronic sob, pnd, orthopnea, or LE edema. No palpitations. - Objective Vital Signs: Vital Signs Temperature 98.5 F 01/17/17 08:00 Pulse Rate 105 H 01/17/17 08:00 Respiratory Rate 18 01/17/17 08:00 Blood Pressure 166/105 01/17/17 08:00 O2 Sat by Pulse Oximetry (%) 96 01/17/17 09:00 Eyes: Yes: WNL, Conjunctiva Clear, EOM Intact HENT: Yes: WNL, Atraumatic, Normocephalic Neck: Yes: WNL, Supple, Trachea Midline Cardiovascular: Yes: WNL, Regular Rate and Rhythm Respiratory: Yes: WNL, Regular, CTA Bilaterally Gastrointestinal: Yes: WNL, Normal Bowel Sounds Genitourinary: Yes: WNL Musculoskeletal: Yes: WNL Extremities: Yes: WNL Edema: No Integumentary: Yes: WNL Neurological: Yes: WNL, Alert, Oriented ...Motor Strength: WNL Psychiatric: Yes: WNL Labs: INR, PTT INR 1.00 (0.82-1.09) 01/11/17 21:10 Assessment/Plan 71 year old man h/o HTN, HLD, AFib, LBBB, COPD, chronic pain, recurrent syncope including recent admission for syncope, admitted with recurrent episode of syncope, generalized weakness, chronic pain. He states that yesterday he was in pain and his BP was elevated so he took multiple pain medications and multiple anti-HTN meds. He then reports multiple episodes of LOC. Recurrent syncope-unclear etiology, possibly medication induced (anti-HTN meds and narcotics) on top of intravascular depletion -recent admission for syncope and work up unrevealing for cardiac source -d/c telemetry cardiac chu stable for outpatient f/u
== END 2017-01-17 09:59 | disposition home or self-care (01) | DRG 918 ==
LOC: JER 20:41 → JERBED 01-12 01:36 → J4W 01-12 13:59 → J6S 01-14 20:38 → OBSVTOIN 01-15 11:15
PROVIDERS: ADMIT Internal Medicine; ATTEND Internal Medicine
DX: T40.601A Poisoning by unspecified narcotics, accidental (unintentional), initial encounter (principal); K57.92 Diverticulitis of intestine, part unspecified, without perforation or abscess without bleeding; N17.9 Acute kidney failure, unspecified; G91.9 Hydrocephalus, unspecified; I95.1 Orthostatic hypotension; E78.5 Hyperlipidemia, unspecified; I44.7 Left bundle-branch block, unspecified; I49.8 Other specified cardiac arrhythmias; F41.8 Other specified anxiety disorders; J44.9 Chronic obstructive pulmonary disease, unspecified; I48.0 Paroxysmal atrial fibrillation; K64.9 Unspecified hemorrhoids; K58.9 Irritable bowel syndrome, unspecified; N40.0 Benign prostatic hyperplasia without lower urinary tract symptoms; I12.9 Hypertensive chronic kidney disease with stage 1 through stage 4 chronic kidney disease, or unspecified chronic kidney disease; N18.3 Chronic kidney disease, stage 3 (moderate); T42.6X1A Poisoning by other antiepileptic and sedative-hypnotic drugs, accidental (unintentional), initial encounter; Y92.098 Other place in other non-institutional residence as the place of occurrence of the external cause; M81.0 Age-related osteoporosis without current pathological fracture; K44.9 Diaphragmatic hernia without obstruction or gangrene; N20.0 Calculus of kidney; M54.5 Low back pain; E86.0 Dehydration; R48.2 Apraxia; G25.81 Restless legs syndrome; F40.240 Claustrophobia; J02.9 Acute pharyngitis, unspecified; G20 Parkinson's disease; F02.80 Dementia in other diseases classified elsewhere, unspecified severity, without behavioral disturbance, psychotic disturbance, mood disturbance, and anxiety; I65.29 Occlusion and stenosis of unspecified carotid artery; R27.0 Ataxia, unspecified; K59.03 Drug induced constipation; T50.995A Adverse effect of other drugs, medicaments and biological substances, initial encounter; T46.5X5A Adverse effect of other antihypertensive drugs, initial encounter
CPT/HCPCS: 36415; 70450-TC; 71010-TC; 72125-TC; 74000-TC; 80048; 80053; 81003; 81015; 82150; 82550; 82607; 83690; 83735; 83880; 84100; 84443; 84484; 85025; 85027; 85610; 86593; 87086; 87186; 93005; 93010; 95816; 97116-GP; 97161-GP; 99285-25; G0378

== ENCOUNTER 2017-02-22 07:58 | Emergency (ER) | payer OTHER ==
[2017-02-22 08:16] VITALS: BMI 25.8
--- NOTE | 2017-02-22 08:39 | PDOC ---
History of Present Illness - General Chief Complaint: Pain Stated Complaint: PAIN Time Seen by Provider: 02/22/17 08:05 - History of Present Illness Initial Comments: 02/22/17 09:56 71 yo M with h/o HTN, HLD, COPD, Chronic pain, osteoarthritis, and osteoporosis who presents with back pain. Pt. reports recent episode of lower back pain within within the past 24 hours. Beginning yesterday morning he recalls standing up in an attempt to ambulate with his cane when it, "felt like his back was breaking." He states the pain is dull and radiates to back of thighs. Denies fevers/chills , bowel incontinence, N/V, or acute urinary complaints, weakness. He has h/o urinary incontinence at baseline. Symtpoms refractory to Percocet, muscle rleaxants, and tyelnol. He denies saddle parasthesia or urinary retention.Lumbar spine MRI ( 03/25/2016) L4-L5 s/p Bl Laminectomy, herniation L4, absent stenosis. Pt. frequently seen in [facility] ED and OSH for recurrent pain, and general weakness. H/o mutliple imaging Past History - Past Medical History Allergies/Adverse Reactions: Allergies Allergy/AdvReac Type Severity Reaction Status Date / Time pregabalin [From Lyrica] Allergy Mild Verified 02/22/17 08:15 pravastatin sodium Allergy Unknown Verified 02/22/17 08:15 [From Pravachol] lactose Allergy Nausea Verified 02/22/17 08:15 morphine Allergy Verified 02/22/17 08:15 peanut Allergy Verified 02/22/17 08:15 Penicillins Allergy Verified 02/22/17 08:15 Home Medications: Ambulatory Orders Pantoprazole Sodium [Protonix -] 40 mg PO BID #60 tablet.ec 07/26/15 Alendronate Na [Fosamax (Weekly)] 70 mg PO WEEKLY 08/22/16 Oxycodone HCl/Acetaminophen [Percocet 5-325 mg Tablet] 1 - 2 tab PO Q4H Magnesium Hydrox 2400MG/30Ml [Milk of Magnesia -] 30 ml PO Q8H PRN 01/11/17 Carbidopa/Levodopa *Cr* 25/100 [Sinemet *Cr* 25/100 -] 0.5 combo PO TIDAC #90 tab 01/16/17 Docusate Sodium [Colace -] 100 mg PO BID #60 capsule 01/16/17 Ondansetron HCl [Zofran] 8 mg PO Q8H PRN #14 tablet 01/16/17 Pramipexole Dihydrochloride [Mirapex -] 0.125 mg PO TID #90 tablet 01/16/17 Sennosides [Senna] 2 tab PO DAILY #30 tablet 01/16/17 Sodium Phosphate/Na Biphos [Fleet Adult Rectal Enema -] 133 ml RC WEEKLY PRN #4 enema 01/16/17 Anemia: No Asthma: No Cancer: No Cardiac Disorders: Yes (HTN, HLD, Paroxysmal AFib) CVA: No COPD: Yes CHF: No Dementia: No Diabetes: No GI Disorders: Yes (Diverticulitis, IBS, hemorrhoids) Disorders: Yes (Englarged Prostate) HTN: Yes Hypercholesterolemia: Yes Kidney Stones: Yes (s/p Right UVJ Stent placement) Liver Disease: No Psychiatric Problems: Yes (Depression/Anxiety) Suicide Attempt (Hx): No Seizures: No Thyroid Disease: No - Surgical History Abdominal Surgery: Yes (Hernia Repair) Appendectomy: No Cardiac Surgery: No Cholecystectomy: No GI Surgery: Yes (HEMORRHOIDS/ANAL ULCER, RIGHT UVJ STENT) Lung Surgery: No Neurologic Surgery: No Orthopedic Surgery: Yes (Lumbar Back Surgery x2) - Immunization History Immunization Up to Date: Yes - Psycho/Social/Smoking Cessation Hx Anxiety: No Suicidal Ideation: No Smoking Status: No Smoking History: Unknown if ever smoked Years of Tobacco Use: 20 Have you smoked in the past 12 months: No Number of Cigarettes Smoked Daily: 0 If you are a former smoker, when did you quit?: over 25 years ago 'Breaking Loose' booklet given: 09/08/13 Hx Alcohol Use: No Drug/Substance Use Hx: No Substance Use Type: None Hx Substance Use Treatment: No Review of Systems - Review of Systems Comments:: 02/22/17 11:36 GENERAL/CONSTITUTIONAL: +weakness. No fever or chills. . HEAD, EYES, EARS, NOSE AND THROAT: No change in vision. No ear pain or discharge. No sore throat. CARDIOVASCULAR: No chest pain or shortness of breath RESPIRATORY: No cough, wheezing, or hemoptysis. GASTROINTESTINAL: No nausea, vomiting, diarrhea or constipation. GENITOURINARY: No dysuria, frequency, or change in urination. MUSCULOSKELETAL: + back pain. No joint or muscle swelling or pain. No neck pain. SKIN: No rash NEUROLOGIC: No headache, vertigo, loss of consciousness, or change in strength/ sensation. ENDOCRINE: No increased thirst. No abnormal weight change HEMATOLOGIC/LYMPHATIC: No anemia, easy bleeding, or history of blood clots. ALLERGIC/IMMUNOLOGIC: No hives or skin allergy. *Physical Exam - Vital Signs Last Vital Signs Temp Pulse Resp BP Pulse Ox 98.7 F 90 20 144/95 95 02/22/17 08:13 02/22/17 08:13 02/22/17 08:13 02/22/17 08:13 02/22/17 08:13 02/22/17 11:51 GENERAL: Awake, alert, and fully oriented, in no acute distress. HEAD: No signs of trauma, normocephalic, atraumatic EYES: PERRLA, EOMI, sclera anicteric, conjunctiva clear ENT: Auricles normal inspection, hearing grossly normal, nares patent, oropharynx clear without exudates. Moist mucosa NECK: Normal ROM, supple, no lymphadenopathy, JVD, or masses LUNGS: No distress, speaks full sentences, clear to auscultation bilaterally HEART: Regular rate and rhythm, normal S1 and S2, no murmurs, rubs or gallops, peripheral pulses normal and equal bilaterally. ABDOMEN: Soft, nontender, normoactive bowel sounds. No guarding, no rebound. No masses EXTREMITIES: Normal inspection, Normal range of motion, no edema. No clubbing or cyanosis. lumbar TTP. NEUROLOGICAL: Cranial nerves II through XII grossly intact. Normal speech, normal gait, no focal sensorimotor deficits SKIN: Warm, Dry, normal turgor, no rashes or lesions noted. ED Treatment Course - LABORATORY CBC & Chemistry Diagram: 02/22/17 09:00 02/22/17 09:00 Medical Decision Making - Medical Decision Making 02/22/17 11:54 71 yo with h/o HTN, HLD, COPD, osteoarthritis, and osteoporosis, who presents with back pain. Denies fevers/chills and is non toxic appearing. There is low suspicion for epidural abscess. Physical exam unremarkable. Denies flank, pain, or new onset urinary symptoms. Pyelonephritis unlikely. H&P do not suggest conus medullaris or cauda euqina. Lower back pain most likely 2/2 preexisting lumbar herniation and degenerative disc disease as confirmed on lumbar MRI ( ) . ED course. - CBC, CMP - NS 500 ml - UA Pt. labs unremarkable. CMP: creatinine 1.4. Baseline Cr 1.4 Discharge *DC/Admit/Observation/Transfer Diagnosis at time of Disposition: Weakness - Discharge Dispostion Admit: No - Referrals Referrals: Grover Gonzalez MD [Staff Physician] - - Patient Instructions Printed Discharge Instructions: DI for Muscle Weakness Print Language: ARABIC - Attestations Physician Attestion: 02/22/17 11:31 I, Dr. Haresh Cabezas, attest that this document has been prepared under my direction and personally reviewed by me in its entirety. I further attest, that it accurately reflects all work, treatment, procedures and medical decision -making performed by me.
[2017-02-22] MEDS ORDERED: SODIUM CHLORIDE 500 ML IV STA (09:12)
[2017-02-22 09:16] LABS: BASOPHIL 0.6 % (0-2.0); MCH 34.1 pg (25.7-33.7); MCHC 33.8 g/dl (32.0-35.9); MEAN CELL VOLUME 100.8 fl (80-96); MEAN PLT VOLUME 9.3 fl (7.5-11.1); NEUTROPHILS 72.1 % (42.8-82.8); PLATELET COUNT 169 K/MM3 (134-434); RDW 14.7 % (11.9-15.9); WHITE BLOOD COUNT 8.7 K/mm3 (4.0-10.0)
[2017-02-22 09:19] LABS: URINE APPEARANCE CLEAR; URINE BILIRUBIN NEGATIVE (NEGATIVE); URINE BLOOD NEGATIVE (NEGATIVE); URINE COLOR LTYELLOW; URINE GLUCOSE (UA) NEGATIVE (NEGATIVE); URINE KETONE NEGATIVE (NEGATIVE); URINE NITRITE NEGATIVE (NEGATIVE); URINE PROTEIN NEGATIVE (NEGATIVE); URINE UROBILINOGEN NEGATIVE mg/dL (0.2-1.0)
[2017-02-22 09:37] LABS: ALBUMIN 3.8 g/dl (3.4-5.0); ANION GAP 10 (8-16); BILIRUBIN,TOTAL 0.3 mg/dL (0.2-1.0); CALCIUM 8.8 mg/dL (8.5-10.1); CO2 23 mmol/L (21-32); CREATININE 1.4 mg/dL (0.7-1.3); GLUCOSE,RANDOM 154 mg/dL (74-106); SGOT/AST 13 U/L (15-37); SGPT/ALT 27 U/L (12-78); TOT PROT 6.4 g/dl (6.4-8.2)
[2017-02-22 09:40] LABS: ALK PHOS 54 U/L (45-117); TROPONIN I < 0.02 ng/ml (0.00-0.05)
[2017-02-22 09:44] LABS: URINE LEUK ESTERASE 1+ (NEGATIVE)
[2017-02-22 09:49] LABS: URINE HYALINE CAST 3 /lpf; URINE MUCUS RARE; URINE RBC <1 /hpf (0-3); URINE WBC 3 /hpf (3-5)
--- NOTE | 2017-02-22 09:59 | PDOC ---
Attending Attestation - Resident Resident Name: Haresh Cabezas - ED Attending Attestation I have performed the following: I have examined & evaluated the patient, The case was reviewed & discussed with the resident, I agree w/resident's findings & plan, Exceptions are as noted - HPI HPI: 02/22/17 11:06 71y M hx of htn, hl, copd, chronic pain, presents with generalized weakness and back pain. Pt states his back pain has been worse recently, no associated trauma /falls or injuries. no numbness/tingling/weakness, fever/chills. no associated chest pain, sob, palps. on exam pt apperas well, in n odisterss, mild paraspinal tendernes so exam w/o midline tenderness. pts labs reviewed unremarkble/at [facility] will dc the pt with pmd fu return precautions were discussed - Physicial Exam PE: 02/22/17 18:03 see above - Medical Decision Making 02/22/17 18:03 see above Heart Score/ECG Review - ECG Impressions Comment:: 02/22/17 16:26 Twelve-lead EKG was performed and reviewed by me. There is normal sinus rhythm with a normal rate. Rate pf 94 left axis deviation LBBB no st changes suggestive of acute ischemia via sgarbossa criteria
[2017-02-22 10:00] LABS: INR 0.96 (0.82-1.09); PROTHROMBIN TIME (PATIENT) 10.6 SEC (9.98-11.88)
[2017-02-22 11:55] VITALS: BP 130/80; PULSE 82; TEMP 98.3
--- NOTE | 2017-02-24 09:39 | EKG ---
Test Reason : Blood Pressure : / mmHG Vent. Rate : 094 BPM Atrial Rate : 094 BPM P-R Int : 172 ms QRS Dur : 132 ms QT Int : 368 ms P-R-T Axes : 017 -50 107 degrees QTc Int : 460 ms NORMAL SINUS RHYTHM LEFT AXIS DEVIATION LEFT BUNDLE BRANCH BLOCK ABNORMAL ECG WHEN COMPARED WITH ECG OF 13-JAN-2017 13:02, NO SIGNIFICANT CHANGE WAS FOUND Confirmed by JUSTIN CANALES MD ([id number]) on 02/24/2017 9:39:27 AM Referred By: Confirmed By:JUSTIN CANALES MD
== END 2017-02-22 12:47 | disposition home or self-care (01) ==
LOC: JER 07:58
PROC: 3E0337Z Introduction of Electrolytic and Water Balance Substance into Peripheral Vein, Percutaneous Approach (ICD-10-PCS; principal; 2017-02-22)
DX: M62.81 Muscle weakness (generalized) (principal); I10 Essential (primary) hypertension; E78.00 Pure hypercholesterolemia, unspecified; J44.9 Chronic obstructive pulmonary disease, unspecified; M19.90 Unspecified osteoarthritis, unspecified site; N40.0 Benign prostatic hyperplasia without lower urinary tract symptoms; I48.0 Paroxysmal atrial fibrillation
CPT/HCPCS: 36415; 80053; 81003; 81015; 82550; 84484; 85025; 85610; 87086; 93005; 93010; 96360; 99284-25

== ENCOUNTER 2017-03-18 15:10 | Inpatient (IN) | payer OTHER, BC ==
--- NOTE | 2017-03-18 16:18 | PDOC ---
History of Present Illness - General Chief Complaint: Weakness Stated Complaint: WEAKNESS/abd pain Time Seen by Provider: 03/18/17 15:55 History Source: Patient - History of Present Illness Timing/Duration: other Associated Symptoms: reports: chest pain, nausea/vomiting. denies: cough, diaphoresis, fever/chills, headaches, shortness of breath Past History - Past Medical History Allergies/Adverse Reactions: Allergies Allergy/AdvReac Type Severity Reaction Status Date / Time pregabalin [From Lyrica] Allergy Mild Verified 03/18/17 15:49 pravastatin sodium Allergy Unknown Verified 03/18/17 15:49 [From Pravachol] lactose Allergy Nausea Verified 03/18/17 15:49 morphine Allergy Verified 03/18/17 15:49 peanut Allergy Verified 03/18/17 15:49 Penicillins Allergy Verified 03/18/17 15:49 Home Medications: Ambulatory Orders Pantoprazole Sodium [Protonix -] 40 mg PO BID #60 tablet.ec 07/26/15 Alendronate Na [Fosamax (Weekly)] 70 mg PO WEEKLY 08/22/16 Oxycodone HCl/Acetaminophen [Percocet 5-325 mg Tablet] 1 - 2 tab PO Q4H Magnesium Hydrox 2400MG/30Ml [Milk of Magnesia -] 30 ml PO Q8H PRN 01/11/17 Carbidopa/Levodopa *Cr* 25/100 [Sinemet *Cr* 25/100 -] 0.5 combo PO TIDAC #90 tab 01/16/17 Docusate Sodium [Colace -] 100 mg PO BID #60 capsule 01/16/17 Ondansetron HCl [Zofran] 8 mg PO Q8H PRN #14 tablet 01/16/17 Pramipexole Dihydrochloride [Mirapex -] 0.125 mg PO TID #90 tablet 01/16/17 Sennosides [Senna] 2 tab PO DAILY #30 tablet 01/16/17 Sodium Phosphate/Na Biphos [Fleet Adult Rectal Enema -] 133 ml RC WEEKLY PRN #4 enema 01/16/17 Anemia: No Asthma: No Cancer: No Cardiac Disorders: Yes (HTN, HLD, Paroxysmal AFib) CVA: No COPD: Yes CHF: No Dementia: No Diabetes: No GI Disorders: Yes (Diverticulitis, IBS, hemorrhoids) Disorders: Yes (Englarged Prostate) HTN: Yes Hypercholesterolemia: Yes Kidney Stones: Yes (s/p Right UVJ Stent placement) Liver Disease: No Psychiatric Problems: Yes (Depression/Anxiety) Suicide Attempt (Hx): No Seizures: No Thyroid Disease: No - Surgical History Abdominal Surgery: Yes (Hernia Repair) Appendectomy: No Cardiac Surgery: No Cholecystectomy: No GI Surgery: Yes (HEMORRHOIDS/ANAL ULCER, RIGHT UVJ STENT) Lung Surgery: No Neurologic Surgery: No Orthopedic Surgery: Yes (Lumbar Back Surgery x2) - Immunization History Immunization Up to Date: Yes - Psycho/Social/Smoking Cessation Hx Anxiety: No Suicidal Ideation: No Smoking Status: No Smoking History: Unknown if ever smoked Years of Tobacco Use: 20 Have you smoked in the past 12 months: No Number of Cigarettes Smoked Daily: 0 If you are a former smoker, when did you quit?: over 25 years ago 'Breaking Loose' booklet given: 09/08/13 Hx Alcohol Use: No Drug/Substance Use Hx: No Substance Use Type: None Hx Substance Use Treatment: No Review of Systems - Review of Systems Constitutional: No: Chills, Diaphoresis, Fever Respiratory: No: Cough, Shortness of Breath Cardiac (ROS): Yes: Chest Pain. No: Lightheadedness, Palpitations, Syncope ABD/GI: Yes: Nausea. No: Constipated, Diarrhea, Vomiting : Yes: Flank Pain. No: Dysuria, Hematuria Musculoskeletal: No: Back Pain *Physical Exam - Vital Signs Last Vital Signs Temp Pulse Resp BP Pulse Ox 98.5 F 96 H 20 160/96 98 03/18/17 15:50 03/18/17 15:50 03/18/17 15:50 03/18/17 15:50 03/18/17 15:50 - Physical Exam General Appearance: Yes: Appropriately Dressed. No: Apparent Distress HEENT: positive: Normal Voice Neck: positive: Supple Respiratory/Chest: positive: Lungs Clear, Normal Breath Sounds. negative: Respiratory Distress Cardiovascular: positive: Regular Rate, S1, S2 Gastrointestinal/Abdominal: positive: Tender (poorly localized ttp to R abd) Musculoskeletal: positive: Vertebral Tenderness. negative: CVA Tenderness Extremity: positive: Normal Inspection Integumentary: positive: Dry, Warm Neurologic: positive: Fully Oriented, Alert, Normal Mood/Affect, Motor Strength 5/5 Heart Score/ECG Review - ECG Intrepretation Comment:: 03/18/17 18:51 NSR w/ LBBB (known as per records) ED Treatment Course - LABORATORY CBC & Chemistry Diagram: 03/18/17 16:00 03/18/17 17:58 - RADIOLOGY Radiology Studies Ordered: Category Date Time Status CHEST X-RAY PORTABLE* [RAD] Stat Radiology 03/18/17 15:55 Ordered Medical Decision Making - Medical Decision Making 03/18/17 16:18 Patient is a 71 year old male with past medical history of hypertension, hyperlipidemia, Afib, known LBBB, COPD, kidney stones (s/p UVJ stent), chronic LBP, restless leg syndrome w/ chronic b/l LE pain, ?parkinsons on sinemet and pramipexole, depression and anxiety who arrives to the ED w/ multiple complaints today. Patient complaining of intermittent left-sided, non- radiating chest pain that started last night, unable to describe and states it is 8 out of 10, and associated with possible nausea. No exacerbating/ alleviating factors. Denies vomiting, diaphoresis, shortness of breath or dizziness. States he has had similar pain in the past. Patient also complaining of diffuse right-sided abdominal pain x 3 days. Patient informs me now that he was admitted at [facility] approximately one week ago with with multiple complaints, including abdominal pain, and had CT of abdomen with "right sided stone" and discharged w/ antibiotics for UTI, which he completed. Patient denies dysuria, hematuria, vomiting, chills or change to BM at this time. Patient continues to complain of his usual bilateral lower extremity pain and states he can barely walk with cane at home. Patient resides with female partner who can barely walk herself as per patient See exam CP R/o ACS, less likely PE, dissection or PNA -ekg -labs -CXR Abd pain Poorly localized ttp on exam, no CVAT -pain control -IVF -labs -dry CT given recent dx of R renal stone at OSH, also has h/o diverticulitis Chronic b/l LE pain H/o RLS and chronic LBP Difficulty w/ cane (supposed to use a walker as per prior records) No acute lower extremity weakness, saddle anesthesia or bowel or bladder incontinence to suspect cauda equina at this time -pain control in ED and reassess 03/18/17 18:48 Pt signed out to [facility] Moreira as m/l needing admission given sig cardiac disease and c/o CP. Also also unable to ambulate. PCP is Roxann Staton 03/18/17 18:50 03/18/17 18:51 03/18/17 18:51 03/18/17 18:52 *DC/Admit/Observation/Transfer Diagnosis at time of Disposition: Chronic pain, Diverticulosis
[2017-03-18] MEDS ORDERED: KETOROLAC TROMETHAMINE 30 MG/1 ML VIAL IVPUSH ONE (16:30)
[2017-03-18] MEDS ORDERED: SODIUM CHLORIDE 500 ML IV STA (16:33)
[2017-03-18] MEDS ORDERED: KETOROLAC TROMETHAMINE 30 MG/1 ML VIAL ONE (16:36)
[2017-03-18 16:46] LABS: BASOPHIL 0.8 % (0-2.0); EOSINOPHIL 6.9 % (0-4.5); MCH 34.3 pg (25.7-33.7); MCHC 33.5 g/dl (32.0-35.9); MEAN CELL VOLUME 102.3 fl (80-96); MEAN PLT VOLUME 9.6 fl (7.5-11.1); PLATELET COUNT 199 K/MM3 (134-434); RDW 14.2 % (11.9-15.9); WHITE BLOOD COUNT 7.7 K/mm3 (4.0-10.0)
[2017-03-18 18:34] LABS: ALBUMIN 3.8 g/dl (3.4-5.0); ANION GAP 9 (8-16); BILIRUBIN,TOTAL 0.3 mg/dL (0.2-1.0); CALCIUM 8.8 mg/dL (8.5-10.1); CO2 22 mmol/L (21-32); CREATININE 1.3 mg/dL (0.7-1.3); GLUCOSE,RANDOM 87 mg/dL (74-106); SGOT/AST 15 U/L (15-37); SGPT/ALT 23 U/L (12-78); TOT PROT 6.2 g/dl (6.4-8.2)
[2017-03-18 18:37] LABS: ALK PHOS 44 U/L (45-117); CPK 76 IU/L (39-308); TROPONIN I < 0.02 ng/ml (0.00-0.05)
--- NOTE | 2017-03-18 18:55 | PDOC ---
*Physical Exam - Vital Signs Last Vital Signs Temp Pulse Resp BP Pulse Ox 98.5 F 96 H 20 160/96 98 03/18/17 15:50 03/18/17 15:50 03/18/17 15:50 03/18/17 15:50 03/18/17 15:50 Heart Score/ECG Review #1 ECG reviewed & interpreted by me at: 18:55 03/18/17 18:55 LBBB, rate of 80 bpm ED Treatment Course - LABORATORY CBC & Chemistry Diagram: 03/18/17 16:00 03/18/17 17:58 - ADDITIONAL ORDERS Additional order review: Laboratory Results 03/18/17 03/18/17 17:58 16:00 Sodium 141 Cancelled Potassium 4.4 Cancelled Chloride 110 H Cancelled Carbon Dioxide 22 Cancelled Anion Gap 9 Cancelled BUN 22 H Cancelled Creatinine 1.3 Cancelled Creat Clearance w eGFR 54.11 Cancelled Random Glucose 87 D Cancelled Calcium 8.8 Cancelled Total Bilirubin 0.3 Cancelled AST 15 Cancelled ALT 23 Cancelled Alkaline Phosphatase 44 L Cancelled Creatine Kinase 76 Cancelled Troponin I < 0.02 Cancelled Total Protein 6.2 L Cancelled Albumin 3.8 Cancelled Lipase 167 Cancelled 03/18/17 16:00 RBC 4.30 MCV 102.3 H MCHC 33.5 RDW 14.2 MPV 9.6 Neutrophils % 55.0 D Lymphocytes % 27.7 D Monocytes % 9.6 Eosinophils % 6.9 H Basophils % 0.8 - Medications Given in the ED: ED Medications Discontinued Medications Generic Name Dose Route Start Last Admin Trade Name Freq PRN Reason Stop Dose Admin Sodium Chloride 500 mls @ 1,000 mls/hr 03/18/17 16:33 03/18/17 16:51 Normal Saline - IV 03/18/17 17:02 1,000 mls/hr ASDIR STA Administration Ketorolac Tromethamine 30 mg 03/18/17 16:30 03/18/17 16:44 Toradol Injection - IVPUSH 03/18/17 16:31 30 mg ONCE ONE Administration Medical Decision Making - Medical Decision Making 03/18/17 18:55 Pt seen by Midlevel Provider under my direct supervision Ancillary studies reviewed I agree with plan as outlined by Midlevel Provider *DC/Admit/Observation/Transfer Diagnosis at time of Disposition: Chronic pain, Diverticulosis
--- NOTE | 2017-03-18 19:33 | PDOC ---
*Physical Exam - Vital Signs Last Vital Signs Temp Pulse Resp BP Pulse Ox 98.5 F 96 H 20 160/96 98 03/18/17 15:50 03/18/17 15:50 03/18/17 15:50 03/18/17 15:50 03/18/17 15:50 - Physical Exam Comments: 03/18/17 19:32 Sign-out received from outgoing ER provider Rober. Pt interviewed and examined. Ancillary studies reviewed. This patient is a 71 yo M with multiple comorbidities presenting with chest pain , RLQ abdominal pain, and chronic leg pain. Awaiting spiral CT r/o stone. 03/18/17 22:22 Patient c/o nausea and leg pain. Patient states that he took 3 Percocet today with no relief of his leg pain "and at this point I feel like I want to use a machete and cut my legs off." -Zofran -Dilaudid 0.5mg 03/18/17 22:43 CT results: No CT evidence of current urolithiasis or hydronephrosis. No acute findings identified. Extensive colonic diverticulosis seen without evidence of acute diverticulitis. Patient states he is unable to ambulate. Will admit for intractable pain requiring IV meds for pain control. Dr. Jackelyn aponte. Discussed case Dr. Hayden, patient is no longer under his care. Will admit to hospitalist. ED Treatment Course - LABORATORY CBC & Chemistry Diagram: 03/18/17 16:00 03/18/17 17:58 - ADDITIONAL ORDERS Additional order review: Laboratory Results 03/18/17 03/18/17 03/18/17 17:58 17:58 16:00 Sodium 141 Cancelled Potassium 4.4 Cancelled Chloride 110 H Cancelled Carbon Dioxide 22 Cancelled Anion Gap 9 Cancelled BUN 22 H Cancelled Creatinine 1.3 Cancelled Creat Clearance w eGFR 54.11 Cancelled Random Glucose 87 D Cancelled Calcium 8.8 Cancelled Total Bilirubin 0.3 Cancelled AST 15 Cancelled ALT 23 Cancelled Alkaline Phosphatase 44 L Cancelled Creatine Kinase 76 Cancelled Troponin I < 0.02 Cancelled B-Natriuretic Peptide 65.60 Total Protein 6.2 L Cancelled Albumin 3.8 Cancelled Lipase 167 Cancelled 03/18/17 16:00 RBC 4.30 MCV 102.3 H MCHC 33.5 RDW 14.2 MPV 9.6 Neutrophils % 55.0 D Lymphocytes % 27.7 D Monocytes % 9.6 Eosinophils % 6.9 H Basophils % 0.8 - Medications Given in the ED: ED Medications Discontinued Medications Generic Name Dose Route Start Last Admin Trade Name Freq PRN Reason Stop Dose Admin Sodium Chloride 500 mls @ 1,000 mls/hr 03/18/17 16:33 03/18/17 16:51 Normal Saline - IV 03/18/17 17:02 1,000 mls/hr ASDIR STA Administration Ketorolac Tromethamine 30 mg 03/18/17 16:30 03/18/17 16:44 Toradol Injection - IVPUSH 03/18/17 16:31 30 mg ONCE ONE Administration *DC/Admit/Observation/Transfer Diagnosis at time of Disposition: Diverticulosis Chronic pain Qualifiers: Chronic pain type: other chronic pain Qualified Code(s): G89.29 - Other chronic pain - Discharge Dispostion Admit: Yes
[2017-03-18] MEDS ORDERED: ONDANSETRON 4 MG/2 ML VIAL IVPUSH ONE (21:53)
[2017-03-18] MEDS ORDERED: LIDOCAINE PATCH REMOVAL MC SCH (22:00)
[2017-03-18] MEDS ORDERED: ONDANSETRON 4 MG/2 ML VIAL ONE (22:30)
[2017-03-18] MEDS ORDERED: HYDROmorphone HCL CARPU-JECT 1 MG/1 ML DISP.SYRIN IVPUSH ONE (22:40)
[2017-03-18 22:57] LABS: URINE APPEARANCE SLCLOUDY; URINE BILIRUBIN NEGATIVE (NEGATIVE); URINE BLOOD NEGATIVE (NEGATIVE); URINE COLOR YELLOW; URINE GLUCOSE (UA) NEGATIVE (NEGATIVE); URINE KETONE NEGATIVE (NEGATIVE); URINE LEUK ESTERASE TRACE (NEGATIVE); URINE NITRITE NEGATIVE (NEGATIVE); URINE PROTEIN NEGATIVE (NEGATIVE); URINE UROBILINOGEN NEGATIVE mg/dL (0.2-1.0)
[2017-03-18] MEDS ORDERED: HYDROmorphone HCL CARPU-JECT 1 MG/1 ML DISP.SYRIN ONE (23:05)
[2017-03-18 23:13] LABS: URINE HYALINE CAST 2 /lpf; URINE MUCUS MODERATE; URINE RBC 1 /hpf (0-3); URINE WBC 12 /hpf (3-5)
[2017-03-18] MEDS ORDERED: PATIENT'S OWN MEDICATION (NON-FORMULARY) (Alendronate Na [Fosamax (Weekly)] 70 MG) PO SCH (23:45)
[2017-03-18] MEDS ORDERED: LIDOCAINE 5% TOPICAL PATCH TP ONE (23:48)
[2017-03-18] MEDS ORDERED: ONDANSETRON 8 MG TABLET (FP) PO PRN (23:52)
[2017-03-18] MEDS ORDERED: SODIUM PHOSPHATE/NA BIPHOS 133 ML ENEMA RC PRN (23:52)
--- NOTE | 2017-03-19 00:29 | HP ---
CHIEF COMPLAINT: severe leg pain PCP: Non-staff HISTORY OF PRESENT ILLNESS: 71 year old male h/o depression, anxiety, paroxysmal afib, Known LBBB, HTN, CKD stage 3, Nephrolithiasis(s/p R UVJ Stent), BPH presents to the ED with worsening b/l LE pain. Patient stated that the LE pain has been chronic for years and getting worse in the past few months and now he's unable to ambulate. The pain is located diffusely in b/l legs, coming from "bones", 23/05, non- radiating, percocet has not helped. Patient was recently admitted for syncope and he c/o the same pain during hospital stay. Dr. Quan saw him and prescribed pramipexole and sinemet for early stage parkinson's disease and restless leg syndrome. Denies chest pain, sob, n/v, urinary or bowel changes. ER course was notable for: (1) hemodynamically stable Recent Travel: Denies PAST MEDICAL HISTORY: Hypertension Hyperlipidemia Paroxymal atrial fibrillation Mild pulmonary hypertension COPD Depression and anxiety Kidney stones Chronic pain Failed back syndrome Osteoarthritis Osteoporosis Stage 3 CKD Diverticulosis PAST SURGICAL HISTORY: Hernia repair, Lumbar back surgery x2 Dr Hernandez, Hemorrhoids/anal ulcer Social History: Smoking: Denies Alcohol: Denies Drugs: Denies Family History: Non-contributory Allergies pregabalin [From Lyrica] Allergy (Mild, Verified 03/18/17 15:49) pravastatin sodium [From Pravachol] Allergy (Unknown, Verified 03/18/17 15:49) however, pt takes atorvastatin 10 mg daily at home, reportedly without side effects lactose Allergy (Verified 03/18/17 15:49) Nausea morphine Allergy (Verified 03/18/17 15:49) unknown peanut Allergy (Verified 03/18/17 15:49) Penicillins Allergy (Verified 03/18/17 15:49) unknown affect HOME MEDICATIONS: Home Medications Medication Instructions Recorded Pantoprazole Sodium [Protonix -] 40 mg PO BID #60 tablet.ec 07/26/15 Alendronate Na [Fosamax (Weekly)] 70 mg PO WEEKLY 08/22/16 Oxycodone HCl/Acetaminophen 1 - 2 tab PO Q4H 08/22/16 [Percocet 5-325 mg Tablet] Magnesium Hydrox 2400MG/30Ml [Milk 30 ml PO Q8H PRN 01/11/17 of Magnesia -] Carbidopa/Levodopa *Cr* 25/100 0.5 combo PO TIDAC #90 tab 01/16/17 [Sinemet *Cr* 25/100 -] Docusate Sodium [Colace -] 100 mg PO BID #60 capsule 01/16/17 Ondansetron HCl [Zofran] 8 mg PO Q8H PRN #14 tablet 01/16/17 Pramipexole Dihydrochloride 0.125 mg PO TID #90 tablet 01/16/17 [Mirapex -] Sennosides [Senna] 2 tab PO DAILY #30 tablet 01/16/17 Sodium Phosphate/Na Biphos [Fleet 133 ml RC WEEKLY PRN #4 enema 01/16/17 Adult Rectal Enema -] REVIEW OF SYSTEMS CONSTITUTIONAL: Absent: fever, chills, diaphoresis, generalized weakness, malaise, loss of appetite, weight change HEENT: Absent: rhinorrhea, nasal congestion, throat pain, throat swelling, difficulty swallowing, mouth swelling, ear pain, eye pain, visual changes CARDIOVASCULAR: Absent: chest pain, syncope, palpitations, irregular heart rate, lightheadedness , peripheral edema RESPIRATORY: Absent: cough, shortness of breath, dyspnea with exertion, orthopnea, wheezing, stridor, hemoptysis GASTROINTESTINAL: Absent: abdominal pain, abdominal distension, nausea, vomiting, diarrhea, constipation, melena, hematochezia GENITOURINARY: Absent: dysuria, frequency, urgency, hesitancy, hematuria, flank pain, genital pain MUSCULOSKELETAL: back pain, leg pain Absent: myalgia, arthralgia, joint swelling,, neck pain SKIN: Absent: rash, itching, pallor HEMATOLOGIC/IMMUNOLOGIC: Absent: easy bleeding, easy bruising, lymphadenopathy, frequent infections ENDOCRINE: Absent: unexplained weight gain, unexplained weight loss, heat intolerance, cold intolerance NEUROLOGIC: Absent: headache, focal weakness or paresthesias, dizziness, unsteady gait, seizure, mental status changes, bladder or bowel incontinence PSYCHIATRIC: Absent: anxiety, depression, suicidal or homicidal ideation, hallucinations. PHYSICAL EXAMINATION Last Vital Signs Temp Pulse Resp BP Pulse Ox 98.5 F 96 H 20 160/96 98 03/18/17 15:50 03/18/17 15:50 03/18/17 15:50 03/18/17 15:50 03/18/17 15:50 GENERAL: AAO x 3, in no cardiopulmonary distress EYES: PERRLA. ENT: oropharynx clear without exudates, moist mucous membranes. LUNGS:CTAB HEART: RRR, S1, S2 without murmur, rub or gallop. ABDOMEN: Soft, nontender, nondistended, normoactive bowel sounds, no guarding, no rebound, no hepatosplenomegaly EXTREMITIES: 1+ pulses, cold, no edema, tender to touch, normal range of motion , 5/5 strength b/l, sensation intact b/l SKIN: normal turgor, no rashes or lesions noted, cap refill < 2 secs CBCD WBC 7.7 K/mm3 (4.0-10.0) 03/18/17 16:00 RBC 4.30 M/mm3 (4.00-5.60) 03/18/17 16:00 Hgb 14.7 GM/dL (11.7-16.9) 03/18/17 16:00 Hct 44.0 % (35.4-49) 03/18/17 16:00 MCV 102.3 fl (80-96) H 03/18/17 16:00 MCHC 33.5 g/dl (32.0-35.9) 03/18/17 16:00 RDW 14.2 % (11.9-15.9) 03/18/17 16:00 Plt Count 199 K/MM3 (134-434) 03/18/17 16:00 MPV 9.6 fl (7.5-11.1) 03/18/17 16:00 CMP Sodium 141 mmol/L (136-145) 03/18/17 17:58 Potassium 4.4 mmol/L (3.5-5.1) 03/18/17 17:58 Chloride 110 mmol/L (98-107) H 03/18/17 17:58 Carbon Dioxide 22 mmol/L (21-32) 03/18/17 17:58 Anion Gap 9 (8-16) 03/18/17 17:58 BUN 22 mg/dL (7-18) H 03/18/17 17:58 Creatinine 1.3 mg/dL (0.7-1.3) 03/18/17 17:58 Creat Clearance w eGFR 54.11 (>60) 03/18/17 17:58 Calcium 8.8 mg/dL (8.5-10.1) 03/18/17 17:58 Total Bilirubin 0.3 mg/dL (0.2-1.0) 03/18/17 17:58 AST 15 U/L (15-37) 03/18/17 17:58 ALT 23 U/L (12-78) 03/18/17 17:58 Alkaline Phosphatase 44 U/L (45-117) L 03/18/17 17:58 Total Protein 6.2 g/dl (6.4-8.2) L 03/18/17 17:58 Albumin 3.8 g/dl (3.4-5.0) 03/18/17 17:58 ASSESSMENT/PLAN: 71 yo M with h/o paroxysmal a-fib on cardizem, HTN, HLD, CKD stage 3, nephrolithiasis, BPH admitted to med-surg for intractable LE pain. Intractable lower leg pain, bilateral - Acute on chronic - Likely 2/2 worsening osteoarthritis r/o neurologic etiology * Neurology consult * MRI brain and c-spine r/o NPH * cont. pramipexole and sinemet - Cont. percocet and lidocaine patch A-fib, paroxysmal - Rate and rhythm controlled - Not on AC due to patient refuses it HTN - Lisinopril held due to syncope Anxiety and depression - Trazodone and Xanax held due to syncope Chronic back pain - Hold baclofen due to syncope - On percocet Q6H and oxycodone 5mg Q6H and lidoderm patch daily BPH - Hold flomax due to low BP FEN - No IVF indicated - Lytes normal - Na+ controlled diet Prophylaxis - DVT: heparin SQ - GI: on home protonix Dispo - Awaiting neuro consult and MRI Visit type - Emergency Visit Emergency Visit: Yes ED Registration Date: 03/19/17 Care time: The patient presented to the Emergency Department on the above date and was hospitalized for further evaluation of their emergent condition. - New Patient This patient is new to me today: Yes Date on this admission: 03/19/17 - Critical Care Critical Care patient: No
--- NOTE | 2017-03-19 00:52 | PN ---
Teaching Attending Note Name of Resident: Alvaro Whatley ATTENDING PHYSICIAN STATEMENT I saw and evaluated the patient. I reviewed the resident's note and discussed the case with the resident. I agree with the resident's findings and plan as documented. SUBJECTIVE: 71 M with Pmhx of depression, P Afib, LBBB, HTN, CKD IIIm Nephrolithiasis s/p R UVJ stent, BPH who presents with worsening bilateral LE pain. States pain has been worse for the past week, States pain level is 20/10 and he has pain when he bears weight. Recent admit for which he was placed on Pramipexole for RLS. OBJECTIVE: Physical VS: Vital Signs Period Temp Pulse Resp BP Sys/Suazo Pulse Ox Last 24 Hr 98.5 F 96 20 160/96 98 GEN: NAD, Resting in bed HEENT: NCAT, PERRL CARD: RRR S1, S2 RESP: CTAB ABD: BSX4, NTD to palpation EXT: - C/C/E, DP +2/4, MS +5/5 bilateral LE CBCD WBC 7.7 K/mm3 (4.0-10.0) 03/18/17 16:00 RBC 4.30 M/mm3 (4.00-5.60) 03/18/17 16:00 Hgb 14.7 GM/dL (11.7-16.9) 03/18/17 16:00 Hct 44.0 % (35.4-49) 03/18/17 16:00 MCV 102.3 fl (80-96) H 03/18/17 16:00 MCHC 33.5 g/dl (32.0-35.9) 03/18/17 16:00 RDW 14.2 % (11.9-15.9) 03/18/17 16:00 Plt Count 199 K/MM3 (134-434) 03/18/17 16:00 MPV 9.6 fl (7.5-11.1) 03/18/17 16:00 CMP Sodium 141 mmol/L (136-145) 03/18/17 17:58 Potassium 4.4 mmol/L (3.5-5.1) 03/18/17 17:58 Chloride 110 mmol/L (98-107) H 03/18/17 17:58 Carbon Dioxide 22 mmol/L (21-32) 03/18/17 17:58 Anion Gap 9 (8-16) 03/18/17 17:58 BUN 22 mg/dL (7-18) H 03/18/17 17:58 Creatinine 1.3 mg/dL (0.7-1.3) 03/18/17 17:58 Creat Clearance w eGFR 54.11 (>60) 03/18/17 17:58 Random Glucose 87 mg/dL (74-106) D 03/18/17 17:58 Calcium 8.8 mg/dL (8.5-10.1) 03/18/17 17:58 Total Bilirubin 0.3 mg/dL (0.2-1.0) 03/18/17 17:58 AST 15 U/L (15-37) 03/18/17 17:58 ALT 23 U/L (12-78) 03/18/17 17:58 Alkaline Phosphatase 44 U/L (45-117) L 03/18/17 17:58 Total Protein 6.2 g/dl (6.4-8.2) L 03/18/17 17:58 Albumin 3.8 g/dl (3.4-5.0) 03/18/17 17:58 CARDIAC ENZYMES Creatine Kinase 76 IU/L (39-308) 03/18/17 17:58 Troponin I < 0.02 ng/ml (0.00-0.05) 03/18/17 17:58 CXR: Negative for acute process EKG:Pending CT ABD/PELVIS- Negative Ambulatory Orders Pantoprazole Sodium [Protonix -] 40 mg PO BID #60 tablet.ec 07/26/15 Alendronate Na [Fosamax (Weekly)] 70 mg PO WEEKLY 08/22/16 Oxycodone HCl/Acetaminophen [Percocet 5-325 mg Tablet] 1 - 2 tab PO Q4H Magnesium Hydrox 2400MG/30Ml [Milk of Magnesia -] 30 ml PO Q8H PRN 01/11/17 Carbidopa/Levodopa *Cr* 25/100 [Sinemet *Cr* 25/100 -] 0.5 combo PO TIDAC #90 tab 01/16/17 Docusate Sodium [Colace -] 100 mg PO BID #60 capsule 01/16/17 Ondansetron HCl [Zofran] 8 mg PO Q8H PRN #14 tablet 01/16/17 Pramipexole Dihydrochloride [Mirapex -] 0.125 mg PO TID #90 tablet 01/16/17 Sennosides [Senna] 2 tab PO DAILY #30 tablet 01/16/17 Sodium Phosphate/Na Biphos [Fleet Adult Rectal Enema -] 133 ml RC WEEKLY PRN #4 enema 01/16/17 ASSESSMENT AND PLAN: 71 M with hx of Pafib, htn, hld , CKD III, nephrolithiasis, BPH admitted for intractable LE pain 1.) LE Pain- Acute on Chronic - MRI Brain/C-Spine if pt. is willing - Neuro consult - C/W Pramiprexole and Sinemet - C/w Home Percocet - Morphine prn - Chk. B12/Folate 2.) P Afib - Not on Cardizem anymore due to prior syncopal episode, and pt. not complaint - Consider restarting Cardizem - Not on A/C due to non-compliance 3.) HTN - Resart home anti-htn meds 4.) CKD III - Base Cr 1.3 5.) Dvt Ppx - Heparin [address] in Obs
[2017-03-19] MEDS: HEPARIN NA (PORCINE) 5,000 UNITS/ML 1ML VIAL SQ SCH ×3 (05:17→17:37)
[2017-03-19 05:29] VITALS: BMI 27.1
[2017-03-19] MEDS: PRAMIPEXOLE DIHYDROCHLORIDE 0.125 MG TABLET PO SCH ×2 (06:39→14:22)
[2017-03-19] MEDS: oxyCODONE HCL 5 MG TABLET PO PRN (06:40)
[2017-03-19] MEDS ORDERED: PT OWN MED DRAWER 7, Y5N ONE (08:56)
[2017-03-19] MEDS: PANTOPRAZOLE 40 MG TABLET (FP) PO SCH ×2 (09:42→21:51)
[2017-03-19] MEDS: SENNOSIDES 8.6MG TABLET (FP) PO SCH ×2 (09:43→21:51)
[2017-03-19] MEDS: DOCUSATE SODIUM 100 MG CAPSULE (FP) PO SCH ×2 (09:44→21:51)
[2017-03-19] MEDS ORDERED: LISINOPRIL 20 MG TABLET (FP) PO ONE (10:35)
--- NOTE | 2017-03-19 16:44 | EKG ---
Test Reason : Blood Pressure : / mmHG Vent. Rate : 080 BPM Atrial Rate : 080 BPM P-R Int : 164 ms QRS Dur : 136 ms QT Int : 400 ms P-R-T Axes : 004 -59 090 degrees QTc Int : 461 ms NORMAL SINUS RHYTHM LEFT AXIS DEVIATION LEFT BUNDLE BRANCH BLOCK ABNORMAL ECG WHEN COMPARED WITH ECG OF 22-FEB-2017 08:24, NO SIGNIFICANT CHANGE WAS FOUND Confirmed by JANUARY NEWMAN MD ([id number]) on 03/19/2017 4:43:39 PM Referred By: Confirmed By:JANUARY NEWMAN MD
[2017-03-19] MEDS: KETOROLAC TROMETHAMINE 30 MG/1 ML VIAL IVPUSH PRN (19:00)
--- NOTE | 2017-03-19 19:25 | CONSULT ---
Consult - text type - Consultation Consultation Note: NEUROLOGY CONSULTATION is greatly appreciated: Please see my detailed consult of 01/14/17 regarding this 71 yo man with chronic , severe, b/l leg pains refractory to multiple meds and LS laminectomies x 2. 3 years of progressive stiffness in legs with gradual loss of ambulation associated with increased leg pain and spread of pain from legs to arms. Pains are prickling, hot, numbness and are worst at rest and at night interrupting sleep. Exam supported NPH, Parkinsonism and Restless limbs syndrome. Pt started o Pramipexole and L-Dopa but doses never increased. Now admitted with increasing pain. RAINER: In diaper. - SLR. NEURO: Mild OMS CN II-XII: normal Motor: No drift or focality. + Cogwheel rigidity. Normal reflexes except absent AJ's. Toes downgoing Coord: No FTN dystaxia Sensory: Min reduced vibration in feet. Gait: Flexed and shuffling. IMP: Mild OMS Parkinson's Disease Restless Limbs Syndrome (RLS). SUGGEST: Please culture urine and Rx possible UTI Check B12, TSH, Fe++, TIBC, Ferritin Increase L-Dopa to Sinemet CR 25/100 PO TID @ Increase Pramipexole to .25 mg PO QID @ -10 PT for gait with walker. Thank you very much, Gerald Quan MD
[2017-03-19] MEDS: PRAMIPEXOLE DIHYDROCHLORIDE 0.25 MG TABLET PO SCH (21:52)
[2017-03-19] MEDS: ACETAMINOPHEN 325 MG TABLET (FP) PO PRN (22:21)
[2017-03-19 22:23] LABS: URINE APPEARANCE CLEAR; URINE BILIRUBIN NEGATIVE (NEGATIVE); URINE BLOOD NEGATIVE (NEGATIVE); URINE COLOR LT. YELLOW; URINE GLUCOSE (UA) NEGATIVE (NEGATIVE); URINE KETONE NEGATIVE (NEGATIVE); URINE LEUK ESTERASE NEGATIVE (NEGATIVE); URINE NITRITE NEGATIVE (NEGATIVE); URINE PROTEIN NEGATIVE (NEGATIVE); URINE UROBILINOGEN 0.2 mg/dL (0.2-1.0)
[2017-03-20] MEDS: HEPARIN NA (PORCINE) 5,000 UNITS/ML 1ML VIAL SQ SCH ×3 (01:16→17:12)
[2017-03-20] MEDS: PRAMIPEXOLE DIHYDROCHLORIDE 0.25 MG TABLET PO SCH ×4 (06:14→21:51)
[2017-03-20 07:19] LABS: ALBUMIN 3.5 g/dl (3.4-5.0); ANION GAP 8 (8-16); CALCIUM 8.3 mg/dL (8.5-10.1); CO2 23 mmol/L (21-32); CREATININE 1.6 mg/dL (0.7-1.3); GLUCOSE,RANDOM 88 mg/dL (74-106); SGOT/AST 12 U/L (15-37); SGPT/ALT 21 U/L (12-78)
[2017-03-20 07:29] LABS: ALK PHOS 46 U/L (45-117); BILIRUBIN,TOTAL 0.8 mg/dL (0.2-1.0); THYROID STIMULATING HORMONE 0.49 uIU/ml (0.358-3.74); TOT PROT 5.9 g/dl (6.4-8.2)
[2017-03-20 08:03] LABS: BASOPHIL 0.8 % (0-2.0); EOSINOPHIL 9.3 % (0-4.5); MCH 34.6 pg (25.7-33.7); MCHC 34.2 g/dl (32.0-35.9); MEAN CELL VOLUME 101.4 fl (80-96); MEAN PLT VOLUME 9.5 fl (7.5-11.1); NEUTROPHILS 53.1 % (42.8-82.8); PLATELET COUNT 183 K/MM3 (134-434); RDW 14.3 % (11.9-15.9); WHITE BLOOD COUNT 5.5 K/mm3 (4.0-10.0)
[2017-03-20] MEDS ORDERED: PT OWN MED DRAWER 7, Y5N ONE ×3 (08:59→21:24)
[2017-03-20] MEDS: PANTOPRAZOLE 40 MG TABLET (FP) PO SCH ×2 (09:07→21:43)
[2017-03-20] MEDS: SENNOSIDES 8.6MG TABLET (FP) PO SCH ×2 (09:07→21:43)
[2017-03-20] MEDS: DOCUSATE SODIUM 100 MG CAPSULE (FP) PO SCH ×2 (09:07→21:43)
[2017-03-20] MEDS ORDERED: LISINOPRIL 20 MG TABLET (FP) PO SCH (10:00)
[2017-03-20] MEDS: MAGNESIUM HYDROX 2400MG/30ML ORAL SUSPENSION 30 ML CUP PO PRN (13:24)
--- NOTE | 2017-03-20 15:29 | PN ---
Progress Note (short form) - Note Progress Note: Subjective: The patient was seen and examined at the bedside, he reports feeling weak today, but ambulated with his cane. Refusing PT Current Medications Generic Name Dose Route Start Last Admin Trade Name Freq PRN Reason Stop Dose Admin Acetaminophen 650 mg 03/18/17 23:59 03/19/17 22:21 Tylenol - PO 650 mg Q6H PRN Administration PAIN Carbidopa/Levodopa 1 combo 03/20/17 07:00 03/20/17 13:22 Sinemet *Cr* 25/100 - PO 1 combo TID@0700,1200,1700 SIENA Administration Docusate Sodium 100 mg 03/19/17 10:00 03/20/17 09:07 Colace - PO 100 mg BID SIENA Administration Heparin Sodium (Porcine) 5,000 unit 03/19/17 02:00 03/20/17 09:07 Heparin - SQ 5,000 unit Q8H-IV SIENA Administration Ketorolac Tromethamine 30 mg 03/19/17 06:30 03/19/17 19:00 Toradol Injection - IVPUSH 03/24/17 06:29 30 mg Q6H PRN Administration PAIN Magnesium Hydroxide 30 ml 03/18/17 23:52 03/20/17 13:24 Milk Of Magnesia - PO 30 ml Q8H PRN Administration CONSTIPATION Ondansetron HCl 8 mg 03/18/17 23:52 Zofran - PO Q8H PRN NAUSEA Oxycodone HCl 10 mg 03/18/17 23:59 03/19/17 06:40 Roxicodone - PO 10 mg Q6H PRN Administration PAIN Pantoprazole Sodium 40 mg 03/19/17 10:00 03/20/17 09:07 Protonix - PO 40 mg BID SIENA Administration Pramipexole Dihydrochloride 0.25 mg 03/20/17 07:00 03/20/17 13:22 Mirapex - PO 0.25 mg TID@0700,1200,1700 SIENA Administration Pramipexole Dihydrochloride 0.25 mg 03/19/17 22:00 03/19/17 21:52 Mirapex - PO 0.25 mg HS SIENA Administration Senna 2 tab 03/19/17 22:00 03/19/17 21:51 Senna - PO 2 tab HS SIENA Administration Senna 2 tab 03/19/17 10:00 03/20/17 09:07 Senna - PO 2 tab DAILY SIENA Administration Objective: Vital Signs Period Temp Pulse Resp BP Sys/Suazo Pulse Ox Last 24 Hr 98.1 F-98.9 F 73-89 16-18 113-143/80-86 95-97 Physical Exam: General: NAD, A&Ox3 Lungs: CTA bilaterally Heart: RRR, S1S2 Abd: Soft, non-tender, non-distended. Normoactive bowel sounds Ext: Warm, well-perfused. 2+ DP/PT bilaterally Neuro: CN 2-12 intact CBCD WBC 5.5 K/mm3 (4.0-10.0) 03/20/17 06:15 RBC 3.68 M/mm3 (4.00-5.60) L 03/20/17 06:15 Hgb 12.8 GM/dL (11.7-16.9) D 03/20/17 06:15 Hct 37.3 % (35.4-49) D 03/20/17 06:15 MCV 101.4 fl (80-96) H 03/20/17 06:15 MCHC 34.2 g/dl (32.0-35.9) 03/20/17 06:15 RDW 14.3 % (11.9-15.9) 03/20/17 06:15 Plt Count 183 K/MM3 (134-434) 03/20/17 06:15 MPV 9.5 fl (7.5-11.1) 03/20/17 06:15 CMP Sodium 139 mmol/L (136-145) 03/20/17 06:15 Potassium 4.3 mmol/L (3.5-5.1) 03/20/17 06:15 Chloride 108 mmol/L (98-107) H 03/20/17 06:15 Carbon Dioxide 23 mmol/L (21-32) 03/20/17 06:15 Anion Gap 8 (8-16) 03/20/17 06:15 BUN 29 mg/dL (7-18) H D 03/20/17 06:15 Creatinine 1.6 mg/dL (0.7-1.3) H D 03/20/17 06:15 Creat Clearance w eGFR 42.58 (>60) 03/20/17 06:15 Random Glucose 88 mg/dL (74-106) 03/20/17 06:15 Calcium 8.3 mg/dL (8.5-10.1) L 03/20/17 06:15 Total Bilirubin 0.8 mg/dL (0.2-1.0) D 03/20/17 06:15 AST 12 U/L (15-37) L 03/20/17 06:15 ALT 21 U/L (12-78) 03/20/17 06:15 Alkaline Phosphatase 46 U/L (45-117) 03/20/17 06:15 Total Protein 5.9 g/dl (6.4-8.2) L 03/20/17 06:15 Albumin 3.5 g/dl (3.4-5.0) 03/20/17 06:15 CARDIAC ENZYMES Creatine Kinase 76 IU/L (39-308) 03/18/17 17:58 Troponin I < 0.02 ng/ml (0.00-0.05) 03/18/17 17:58 Assessment: This is a 71 year old male with PMHx of HTN, hyperlipidemia, paroxysmal a.fib, pulmonary htn, COPD, depression, anxiety, CKD stage 3, chronic pain who presented to the ED with worsening lower extremity pain, unsteady gait, bladder incontinence Plan: 1) Acute on chronic b/l lower extremity pain - Per neuro: refractory to multiple meds and LS laminectomies x2 - Increased Sinemet Cr 25/100 to tid - Increased Pramipexole to 0.25mg po qid - PT: patient is refusing - MRI c-spine: facet joints arthropathy, minimal degenerative subluxation at C3 C4, C7-T1. Posterior disc osteophyte complex at C3-C4. 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 Normal signal intensity of the spinal cord - MRI brain: No evidence of acute ischemic changes. No evidence of hemorrhage. Temporal horns of lateral ventricles are dilated. Significant loss of volume of the brain parencyma with widened cortical sulci, sylvian fissures. 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 - Cr baseline ~1.4, Cr today 1.6 - Hold lisinopril for now 3) Cardiology: Paroxysmal a.fib - Not on cardizem anymore 2/2 prior syncopal episodes - Patient is refusing anticoagulation for paf HTN - As above - Start Norvasc 5) Pulmonary: COPD - Stable 6) F/E/N: - Sodium controlled diet - Monitor electrolytes 7) Prophylaxis: - Heparin 5,000u sq tid - PT 8) Dispo: - Once condition improves CODE STATUS: FULL CODE Visit type - Emergency Visit Emergency Visit: Yes ED Registration Date: 03/23/17 Care time: The patient presented to the Emergency Department on the above date and was hospitalized for further evaluation of their emergent condition. - New Patient This patient is new to me today: Yes Date on this admission: 03/23/17 - Critical Care Critical Care patient: No
[2017-03-20] MEDS ORDERED: amLODIPine BESYLATE 5 MG TABLET (FP) PO ONE (17:08)
[2017-03-20] MEDS: oxyCODONE HCL 5 MG TABLET PO PRN (21:44)
[2017-03-21] MEDS: HEPARIN NA (PORCINE) 5,000 UNITS/ML 1ML VIAL SQ SCH ×4 (02:12→17:11)
[2017-03-21 06:11] LABS: SERUM IRON 68 ug/dL (38-169); TOTAL IRON BINDING CAPACITY 277 ug/dL (250-450); UIBC 209 ug/dL (111-343)
[2017-03-21] MEDS ORDERED: PT OWN MED DRAWER 7, Y5N ONE (06:44)
[2017-03-21] MEDS: PRAMIPEXOLE DIHYDROCHLORIDE 0.25 MG TABLET PO SCH ×4 (06:46→21:10)
[2017-03-21 09:06] LABS: ALBUMIN 4.2 g/dl (3.4-5.0); ALK PHOS 54 U/L (45-117); ANION GAP 9 (8-16); BILIRUBIN,TOTAL 0.7 mg/dL (0.2-1.0); CALCIUM 9.3 mg/dL (8.5-10.1); CO2 24 mmol/L (21-32); CREATININE 1.3 mg/dL (0.7-1.3); GLUCOSE,RANDOM 90 mg/dL (74-106); SGOT/AST 16 U/L (15-37); SGPT/ALT 18 U/L (12-78); TOT PROT 6.9 g/dl (6.4-8.2)
[2017-03-21] MEDS: PANTOPRAZOLE 40 MG TABLET (FP) PO SCH ×2 (10:17→21:09)
[2017-03-21] MEDS: DOCUSATE SODIUM 100 MG CAPSULE (FP) PO SCH ×2 (10:18→21:08)
[2017-03-21] MEDS: SENNOSIDES 8.6MG TABLET (FP) PO SCH ×2 (10:18→21:09)
[2017-03-21 10:31] LABS: MCH 33.6 pg (25.7-33.7); MCHC 33.1 g/dl (32.0-35.9); MEAN CELL VOLUME 101.6 fl (80-96); MEAN PLT VOLUME 9.1 fl (7.5-11.1); PLATELET COUNT 195 K/MM3 (134-434); RDW 14.2 % (11.9-15.9); WHITE BLOOD COUNT 7.8 K/mm3 (4.0-10.0)
--- NOTE | 2017-03-21 12:18 | PN ---
Progress Note (short form) - Note Progress Note: Subjective: The patient was seen and examined at the bedside, he reports feeling "ok". He states he is "cranky" this morning and does not want any PT Current Medications Generic Name Dose Route Start Last Admin Trade Name Freq PRN Reason Stop Dose Admin Acetaminophen 650 mg 03/18/17 23:59 03/19/17 22:21 Tylenol - PO 650 mg Q6H PRN Administration PAIN Carbidopa/Levodopa 1 combo 03/20/17 07:00 03/20/17 13:22 Sinemet *Cr* 25/100 - PO 1 combo TID@0700,1200,1700 SIENA Administration Docusate Sodium 100 mg 03/19/17 10:00 03/20/17 09:07 Colace - PO 100 mg BID SIENA Administration Heparin Sodium (Porcine) 5,000 unit 03/19/17 02:00 03/20/17 09:07 Heparin - SQ 5,000 unit Q8H-IV SIENA Administration Ketorolac Tromethamine 30 mg 03/19/17 06:30 03/19/17 19:00 Toradol Injection - IVPUSH 03/24/17 06:29 30 mg Q6H PRN Administration PAIN Magnesium Hydroxide 30 ml 03/18/17 23:52 03/20/17 13:24 Milk Of Magnesia - PO 30 ml Q8H PRN Administration CONSTIPATION Ondansetron HCl 8 mg 03/18/17 23:52 Zofran - PO Q8H PRN NAUSEA Oxycodone HCl 10 mg 03/18/17 23:59 03/19/17 06:40 Roxicodone - PO 10 mg Q6H PRN Administration PAIN Pantoprazole Sodium 40 mg 03/19/17 10:00 03/20/17 09:07 Protonix - PO 40 mg BID SIENA Administration Pramipexole Dihydrochloride 0.25 mg 03/20/17 07:00 03/20/17 13:22 Mirapex - PO 0.25 mg TID@0700,1200,1700 SIENA Administration Pramipexole Dihydrochloride 0.25 mg 03/19/17 22:00 03/19/17 21:52 Mirapex - PO 0.25 mg HS SIENA Administration Senna 2 tab 03/19/17 22:00 03/19/17 21:51 Senna - PO 2 tab HS SIENA Administration Senna 2 tab 03/19/17 10:00 03/20/17 09:07 Senna - PO 2 tab DAILY SIENA Administration Objective: Vital Signs Period Temp Pulse Resp BP Sys/Suazo Pulse Ox Last 24 Hr 98.1 F-98.9 F 73-89 16-18 113-143/80-86 95-97 Physical Exam: General: NAD, A&Ox3 Lungs: CTA bilaterally Heart: RRR, S1S2 Abd: Soft, non-tender, non-distended. Normoactive bowel sounds Ext: Warm, well-perfused. 2+ DP/PT bilaterally Neuro: CN 2-12 intact CBCD WBC 7.8 K/mm3 (4.0-10.0) D 03/21/17 09:30 RBC 4.32 M/mm3 (4.00-5.60) 03/21/17 09:30 Hgb 14.5 GM/dL (11.7-16.9) D 03/21/17 09:30 Hct 43.9 % (35.4-49) D 03/21/17 09:30 MCV 101.6 fl (80-96) H 03/21/17 09:30 MCHC 33.1 g/dl (32.0-35.9) 03/21/17 09:30 RDW 14.2 % (11.9-15.9) 03/21/17 09:30 Plt Count 195 K/MM3 (134-434) 03/21/17 09:30 MPV 9.1 fl (7.5-11.1) 03/21/17 09:30 CMP Sodium 137 mmol/L (136-145) 03/21/17 07:51 Potassium 4.4 mmol/L (3.5-5.1) 03/21/17 07:51 Chloride 104 mmol/L (98-107) 03/21/17 07:51 Carbon Dioxide 24 mmol/L (21-32) 03/21/17 07:51 Anion Gap 9 (8-16) 03/21/17 07:51 BUN 23 mg/dL (7-18) H D 03/21/17 07:51 Creatinine 1.3 mg/dL (0.7-1.3) 03/21/17 07:51 Creat Clearance w eGFR 54.11 (>60) 03/21/17 07:51 Random Glucose 90 mg/dL (74-106) 03/21/17 07:51 Calcium 9.3 mg/dL (8.5-10.1) 03/21/17 07:51 Total Bilirubin 0.7 mg/dL (0.2-1.0) 03/21/17 07:51 AST 16 U/L (15-37) D 03/21/17 07:51 ALT 18 U/L (12-78) 03/21/17 07:51 Alkaline Phosphatase 54 U/L (45-117) 03/21/17 07:51 Total Protein 6.9 g/dl (6.4-8.2) 03/21/17 07:51 Albumin 4.2 g/dl (3.4-5.0) 03/21/17 07:51 CARDIAC ENZYMES Creatine Kinase 76 IU/L (39-308) 03/18/17 17:58 Troponin I < 0.02 ng/ml (0.00-0.05) 03/18/17 17:58 Microbiology 03/19/17 22:00 Urine - Urine Clean Catch Urine Culture - Final NO GROWTH OBTAINED Assessment: This is a 71 year old male with PMHx of HTN, hyperlipidemia, paroxysmal a.fib, pulmonary htn, COPD, depression, anxiety, CKD stage 3, chronic pain who presented to the ED with worsening lower extremity pain, unsteady gait, bladder incontinence Plan: 1) Acute on chronic b/l lower extremity pain - Per neuro: refractory to multiple meds and LS laminectomies x2 - Increased Sinemet Cr 25/100 to tid - Increased Pramipexole to 0.25mg po qid - PT: patient is refusing - MRI c-spine: facet joints arthropathy, minimal degenerative subluxation at C3 C4, C7-T1. Posterior disc osteophyte complex at C3-C4. 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 Normal signal intensity of the spinal cord - MRI brain: No evidence of acute ischemic changes. No evidence of hemorrhage. Temporal horns of lateral ventricles are dilated. Significant loss of volume of the brain parencyma with widened cortical sulci, sylvian fissures. 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 - Resolved - Resume lisinopril 3) Cardiology: Paroxysmal a.fib - Not on cardizem anymore 2/2 prior syncopal episodes - Patient is refusing anticoagulation for paf HTN - As above - Start Norvasc 5) Pulmonary: COPD - Stable 6) F/E/N: - Sodium controlled diet - Monitor electrolytes 7) Prophylaxis: - Heparin 5,000u sq tid - PT 8) Dispo: - Once condition improves CODE STATUS: FULL CODE Visit type - Emergency Visit Emergency Visit: Yes ED Registration Date: 03/23/17 Care time: The patient presented to the Emergency Department on the above date and was hospitalized for further evaluation of their emergent condition. - New Patient This patient is new to me today: No - Critical Care Critical Care patient: No
[2017-03-21] MEDS: LISINOPRIL 20 MG TABLET (FP) PO SCH (14:47)
[2017-03-21] MEDS: KETOROLAC TROMETHAMINE 30 MG/1 ML VIAL IVPUSH PRN (18:35)
[2017-03-21] MEDS: MAGNESIUM HYDROX 2400MG/30ML ORAL SUSPENSION 30 ML CUP PO PRN (20:20)
[2017-03-22] MEDS: HEPARIN NA (PORCINE) 5,000 UNITS/ML 1ML VIAL SQ SCH ×3 (01:35→17:18)
[2017-03-22] MEDS: KETOROLAC TROMETHAMINE 30 MG/1 ML VIAL IVPUSH PRN ×2 (02:12→14:11)
[2017-03-22] MEDS: PRAMIPEXOLE DIHYDROCHLORIDE 0.25 MG TABLET PO SCH ×4 (06:04→21:39)
[2017-03-22] MEDS ORDERED: MINERAL OIL ENEMA 133 ML ENEMA PR ONE (09:08)
[2017-03-22] MEDS: MAGNESIUM HYDROX 2400MG/30ML ORAL SUSPENSION 30 ML CUP PO PRN (09:15)
[2017-03-22] MEDS: SENNOSIDES 8.6MG TABLET (FP) PO SCH ×2 (09:15→21:40)
[2017-03-22] MEDS: LISINOPRIL 20 MG TABLET (FP) PO SCH ×2 (09:15→21:39)
[2017-03-22] MEDS: DOCUSATE SODIUM 100 MG CAPSULE (FP) PO SCH ×2 (09:16→22:11)
[2017-03-22] MEDS: PANTOPRAZOLE 40 MG TABLET (FP) PO SCH ×2 (09:16→21:39)
[2017-03-22] MEDS ORDERED: PT OWN MED DRAWER 7, Y5N ONE ×3 (11:03→17:17)
--- NOTE | 2017-03-22 11:37 | PN ---
Progress Note, Physician History of Present Illness: 71 year old male h/o depression, anxiety, paroxysmal afib, Known LBBB, HTN, CKD stage 3, Nephrolithiasis(s/p R UVJ Stent), BPH presents to the ED with worsening b/l LE pain. Patient stated that the LE pain has been chronic for years and getting worse in the past few months and now he's unable to ambulate. The pain is located diffusely in b/l legs, coming from "bones", 20/10, non- radiating, percocet has not helped. Patient was recently admitted for syncope and he c/o the same pain during hospital stay. Dr. Quan saw him and prescribed pramipexole and sinemet for early stage parkinson's disease and restless leg syndrome. Denies chest pain, sob, n/v, urinary or bowel changes. Patient comfortably lying in bed, NAD. Patient reports he feels weak. - Current Medication List Current Medications: Active Medications Acetaminophen (Tylenol -) 650 mg PO Q6H PRN PRN Reason: PAIN Last Admin: 03/19/17 22:21 Dose: 650 mg Carbidopa/Levodopa (Sinemet *Cr* 25/100 -) 1 combo PO TID@0700,1200,1700 [facility] Last Admin: 03/22/17 11:08 Dose: 1 combo Docusate Sodium (Colace -) 100 mg PO BID [facility] Last Admin: 03/22/17 09:16 Dose: Not Given Heparin Sodium (Porcine) (Heparin -) 5,000 unit SQ Q8H-IV [facility] Last Admin: 03/22/17 09:15 Dose: 5,000 unit Ketorolac Tromethamine (Toradol Injection -) 30 mg IVPUSH Q6H PRN PRN Reason: PAIN Stop: 03/24/17 06:29 Last Admin: 03/22/17 02:12 Dose: 30 mg Lisinopril (Prinivil) 20 mg PO BID [facility] Last Admin: 03/22/17 09:15 Dose: 20 mg Magnesium Hydroxide (Milk Of Magnesia -) 30 ml PO Q8H PRN PRN Reason: CONSTIPATION Last Admin: 03/22/17 09:15 Dose: 30 ml Ondansetron HCl (Zofran -) 8 mg PO Q8H PRN PRN Reason: NAUSEA Oxycodone HCl (Roxicodone -) 10 mg PO Q6H PRN PRN Reason: PAIN Last Admin: 03/20/17 21:44 Dose: 10 mg Pantoprazole Sodium (Protonix -) 40 mg PO BID [facility] Last Admin: 03/22/17 09:16 Dose: 40 mg Pramipexole Dihydrochloride (Mirapex -) 0.25 mg PO TID@0700,1200,1700 [facility] Last Admin: 03/22/17 11:08 Dose: 0.25 mg Pramipexole Dihydrochloride (Mirapex -) 0.25 mg PO HS [facility] Last Admin: 03/21/17 21:10 Dose: 0.25 mg Senna (Senna -) 2 tab PO HS [facility] Last Admin: 03/21/17 21:09 Dose: 2 tab Senna (Senna -) 2 tab PO DAILY [facility] Last Admin: 03/22/17 09:15 Dose: 2 tab - Objective Vital Signs: Vital Signs Temperature 98.8 F 03/22/17 10:00 Pulse Rate 81 03/22/17 10:00 Respiratory Rate 18 03/22/17 10:00 Blood Pressure 155/93 03/22/17 10:00 O2 Sat by Pulse Oximetry (%) 97 03/22/17 00:00 Constitutional: Yes: No Distress, Calm Eyes: Yes: Conjunctiva Clear, EOM Intact HENT: Yes: Atraumatic, Normocephalic Neck: Yes: Supple, Trachea Midline Cardiovascular: Yes: Regular Rate and Rhythm, S1, S2 Respiratory: Yes: Regular, CTA Bilaterally Gastrointestinal: Yes: Normal Bowel Sounds, Soft Musculoskeletal: Yes: Muscle Weakness Extremities: No: Calf Tenderness Edema: No Peripheral Pulses WNL: Yes Neurological: Yes: Alert, Oriented Psychiatric: Yes: Alert, Oriented Labs: CBC, BMP 03/21/17 09:30 03/21/17 07:51 Problem List - Problems (1) HTN (hypertension) Code(s): I10 - ESSENTIAL (PRIMARY) HYPERTENSION Qualifiers: Hypertension type: essential hypertension Qualified Code(s): I10 - Essential (primary) hypertension (2) Afib Code(s): I48.91 - UNSPECIFIED ATRIAL FIBRILLATION (3) CKD (chronic kidney disease) stage 3, GFR 30-59 ml/min Code(s): N18.3 - CHRONIC KIDNEY DISEASE, STAGE 3 (MODERATE) (4) Chronic obstructive pulmonary disease (COPD) Code(s): J44.9 - CHRONIC OBSTRUCTIVE PULMONARY DISEASE, UNSPECIFIED (5) Lower extremity pain Code(s): M79.606 - PAIN IN LEG, UNSPECIFIED Assessment/Plan Acute on chronic b/l lower extremity pain - Per neuro: refractory to multiple meds and LS laminectomies x2 - Increased Sinemet Cr 25/100 to tid - Increased Pramipexole to 0.25mg po qid - PT: patient is refusing - MRI c-spine: facet joints arthropathy, minimal degenerative subluxation at C3 C4, C7-T1. Posterior disc osteophyte complex at C3-C4. 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 Normal signal intensity of the spinal cord - MRI brain: No evidence of acute ischemic changes. No evidence of hemorrhage. Temporal horns of lateral ventricles are dilated. Significant loss of volume of the brain parencyma with widened cortical sulci, sylvian fissures. NPH TODD on CKD - Resolved - Resume lisinopril Paroxysmal a.fib - Not on cardizem anymore 2/2 prior syncopal episodes COPD - Stable - Sodium controlled diet - Monitor electrolytes Prophylaxis: - Heparin 5,000u sq tid - PT
--- NOTE | 2017-03-22 12:04 | PN ---
Progress Note (short form) - Note Progress Note: Neurology covering for Dr Quan 71 yo man with chronic, severe, b/l leg pains refractory to multiple meds and LS laminectomies x 2. 3 years of progressive stiffness in legs with gradual loss of ambulation associated with increased leg pain and spread of pain from legs to arms. Pains are prickling, hot, numbness and are worst at rest and at night interrupting sleep. Exam supported NPH, Parkinsonism and Restless limbs syndrome. no sig change in gait with RX adjustments MRI c-spine: facet joints arthropathy, minimal degenerative subluxation at C3 C4 , C7-T1. Posterior disc osteophyte complex at C3-C4. 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 Normal signal intensity of the spinal cord - MRI brain: No evidence of acute ischemic changes. No evidence of hemorrhage. Temporal horns of lateral ventricles are dilated. Significant loss of volume of the brain parencyma with widened cortical sulci, sylvian fissures. NPH RAINER: In diaper. - SLR. NEURO: Mild OMS CN II-XII: normal Motor: No drift or focality. + Cogwheel rigidity. Normal reflexes except absent AJ's. Toes downgoing Coord: No FTN dystaxia Sensory: Min reduced vibration in feet.plantars up Gait: Flexed and shuffling. IMP: NPH , with cortical atrophy, has + gait spasticity and bladder incontinence Parkinson's Disease Restless Limbs Syndrome (RLS). SUGGEST: would get flouroguided LP (Hx of prior surgery and bedside unable) --high volume LP, with pre and post gait assessment neurosurgical consult for shunt if LP shows improvement cont park RX likely needs REHAB Dr Garrido
--- NOTE | 2017-03-22 13:46 | PN ---
Progress Note (short form) - Note Progress Note: Subjective: The patient was seen and examined at the bedside, he states he is still not feeling better Current Medications Generic Name Dose Route Start Last Admin Trade Name Freq PRN Reason Stop Dose Admin Acetaminophen 650 mg 03/18/17 23:59 03/19/17 22:21 Tylenol - PO 650 mg Q6H PRN Administration PAIN Carbidopa/Levodopa 1 combo 03/20/17 07:00 03/22/17 11:08 Sinemet *Cr* 25/100 - PO 1 combo TID@0700,1200,1700 [facility] Administration Docusate Sodium 100 mg 03/19/17 10:00 03/22/17 09:16 Colace - PO Not Given BID SIENA Heparin Sodium (Porcine) 5,000 unit 03/19/17 02:00 03/22/17 09:15 Heparin - SQ 5,000 unit Q8H-IV [facility]IENA Administration Ketorolac Tromethamine 30 mg 03/19/17 06:30 03/22/17 02:12 Toradol Injection - IVPUSH 03/24/17 06:29 30 mg Q6H PRN Administration PAIN Lisinopril 20 mg 03/21/17 14:45 03/22/17 09:15 Prinivil PO 20 mg BID [facility] Administration Magnesium Hydroxide 30 ml 03/18/17 23:52 03/22/17 09:15 Milk Of Magnesia - PO 30 ml Q8H PRN Administration CONSTIPATION Ondansetron HCl 8 mg 03/18/17 23:52 Zofran - PO Q8H PRN NAUSEA Oxycodone HCl 10 mg 03/18/17 23:59 03/20/17 21:44 Roxicodone - PO 10 mg Q6H PRN Administration PAIN Pantoprazole Sodium 40 mg 03/19/17 10:00 03/22/17 09:16 Protonix - PO 40 mg BID [facility]NA Administration Pramipexole Dihydrochloride 0.25 mg 03/20/17 07:00 03/22/17 11:08 Mirapex - PO 0.25 mg TID@0700,1200,1700 [facility] Administration Pramipexole Dihydrochloride 0.25 mg 03/19/17 22:00 03/21/17 21:10 Mirapex - PO 0.25 mg HS SIENA Administration Senna 2 tab 03/19/17 22:00 03/21/17 21:09 Senna - PO 2 tab HS [facility]IENA Administration Senna 2 tab 03/19/17 10:00 03/22/17 09:15 Senna - PO 2 tab DAILY [facility] Administration Objective: Vital Signs Period Temp Pulse Resp BP Sys/Suazo Pulse Ox Last 24 Hr 97.9 F-99.3 F 81-97 18-20 125-155/72-97 97-97 Physical Exam: General: NAD, A&Ox3 Lungs: CTA bilaterally Heart: RRR, S1S2 Abd: Soft, non-tender, non-distended. Normoactive bowel sounds Ext: Warm, well-perfused. 2+ DP/PT bilaterally Neuro: CN 2-12 intact CBCD WBC 7.8 K/mm3 (4.0-10.0) D 03/21/17 09:30 RBC 4.32 M/mm3 (4.00-5.60) 03/21/17 09:30 Hgb 14.5 GM/dL (11.7-16.9) D 03/21/17 09:30 Hct 43.9 % (35.4-49) D 03/21/17 09:30 MCV 101.6 fl (80-96) H 03/21/17 09:30 MCHC 33.1 g/dl (32.0-35.9) 03/21/17 09:30 RDW 14.2 % (11.9-15.9) 03/21/17 09:30 Plt Count 195 K/MM3 (134-434) 03/21/17 09:30 MPV 9.1 fl (7.5-11.1) 03/21/17 09:30 CMP Sodium 137 mmol/L (136-145) 03/21/17 07:51 Potassium 4.4 mmol/L (3.5-5.1) 03/21/17 07:51 Chloride 104 mmol/L (98-107) 03/21/17 07:51 Carbon Dioxide 24 mmol/L (21-32) 03/21/17 07:51 Anion Gap 9 (8-16) 03/21/17 07:51 BUN 23 mg/dL (7-18) H D 03/21/17 07:51 Creatinine 1.3 mg/dL (0.7-1.3) 03/21/17 07:51 Creat Clearance w eGFR 54.11 (>60) 03/21/17 07:51 Random Glucose 90 mg/dL (74-106) 03/21/17 07:51 Calcium 9.3 mg/dL (8.5-10.1) 03/21/17 07:51 Total Bilirubin 0.7 mg/dL (0.2-1.0) 03/21/17 07:51 AST 16 U/L (15-37) D 03/21/17 07:51 ALT 18 U/L (12-78) 03/21/17 07:51 Alkaline Phosphatase 54 U/L (45-117) 03/21/17 07:51 Total Protein 6.9 g/dl (6.4-8.2) 03/21/17 07:51 Albumin 4.2 g/dl (3.4-5.0) 03/21/17 07:51 CARDIAC ENZYMES Creatine Kinase 76 IU/L (39-308) 03/18/17 17:58 Troponin I < 0.02 ng/ml (0.00-0.05) 03/18/17 17:58 Microbiology 03/19/17 22:00 Urine - Urine Clean Catch Urine Culture - Final NO GROWTH OBTAINED Assessment: This is a 71 year old male with PMHx of HTN, hyperlipidemia, paroxysmal a.fib, pulmonary htn, COPD, depression, anxiety, CKD stage 3, chronic pain who presented to the ED with worsening lower extremity pain, unsteady gait, bladder incontinence Plan: 1) Acute on chronic b/l lower extremity pain - Per neuro: refractory to multiple meds and LS laminectomies x2 - Increased Sinemet Cr 25/100 to tid - Increased Pramipexole to 0.25mg po qid - PT: patient is refusing - MRI c-spine: facet joints arthropathy, minimal degenerative subluxation at C3 C4, C7-T1. Posterior disc osteophyte complex at C3-C4. 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 Normal signal intensity of the spinal cord - MRI brain: No evidence of acute ischemic changes. No evidence of hemorrhage. Temporal horns of lateral ventricles are dilated. Significant loss of volume of the brain parencyma with widened cortical sulci, sylvian fissures. NPH - Discussed with Dr. Garrido, for flouro guided high volume LP with opening pressure measurement - Will need PT assessment pre/post LP - B12, TSH wnl - Appreciate neuro consult 2) : TODD on CKD - Resolved - Resume lisinopril 3) Cardiology: Paroxysmal a.fib - Not on cardizem anymore 2/2 prior syncopal episodes - Patient is refusing anticoagulation for paf HTN - As above - Start Norvasc 5) Pulmonary: COPD - Stable 6) F/E/N: - Sodium controlled diet - Monitor electrolytes 7) Prophylaxis: - Heparin 5,000u sq tid - PT 8) Dispo: - Once condition improves CODE STATUS: FULL CODE Visit type - Emergency Visit Emergency Visit: Yes ED Registration Date: 03/23/17 Care time: The patient presented to the Emergency Department on the above date and was hospitalized for further evaluation of their emergent condition. - New Patient This patient is new to me today: No - Critical Care Critical Care patient: No
[2017-03-22] MEDS: ACETAMINOPHEN 325 MG TABLET (FP) PO PRN (21:40)
[2017-03-23] MEDS: KETOROLAC TROMETHAMINE 30 MG/1 ML VIAL IVPUSH PRN ×3 (01:10→18:53)
[2017-03-23] MEDS: HEPARIN NA (PORCINE) 5,000 UNITS/ML 1ML VIAL SQ SCH ×3 (02:19→17:04)
[2017-03-23] MEDS: PRAMIPEXOLE DIHYDROCHLORIDE 0.25 MG TABLET PO SCH ×4 (06:45→22:09)
[2017-03-23] MEDS ORDERED: PT OWN MED DRAWER 7, Y5N ONE ×3 (07:17→17:02)
[2017-03-23 07:45] LABS: BASOPHIL 0.6 % (0-2.0); EOSINOPHIL 6.6 % (0-4.5); MCH 34.8 pg (25.7-33.7); MCHC 34.4 g/dl (32.0-35.9); MEAN CELL VOLUME 100.9 fl (80-96); MEAN PLT VOLUME 9.1 fl (7.5-11.1); NEUTROPHILS 58.1 % (42.8-82.8); PLATELET COUNT 200 K/MM3 (134-434); RDW 14.2 % (11.9-15.9); WHITE BLOOD COUNT 5.8 K/mm3 (4.0-10.0)
[2017-03-23 08:23] LABS: ALBUMIN 3.9 g/dl (3.4-5.0); ALK PHOS 48 U/L (45-117); ANION GAP 10 (8-16); BILIRUBIN,TOTAL 0.7 mg/dL (0.2-1.0); CALCIUM 8.8 mg/dL (8.5-10.1); CO2 24 mmol/L (21-32); CREATININE 1.5 mg/dL (0.7-1.3); GLUCOSE,RANDOM 89 mg/dL (74-106); SGOT/AST 16 U/L (15-37); SGPT/ALT 25 U/L (12-78); TOT PROT 6.3 g/dl (6.4-8.2)
[2017-03-23] MEDS: SENNOSIDES 8.6MG TABLET (FP) PO SCH ×2 (09:37→21:59)
[2017-03-23] MEDS: PANTOPRAZOLE 40 MG TABLET (FP) PO SCH ×2 (09:37→22:08)
[2017-03-23] MEDS: DOCUSATE SODIUM 100 MG CAPSULE (FP) PO SCH ×2 (09:38→21:58)
[2017-03-23] MEDS ORDERED: MAG HYDROX/AL HYDROX/SIMETH 30 ML UNIT-DOSE CUP PO ONE ×2 (10:06→13:00)
--- NOTE | 2017-03-23 10:21 | PN ---
Progress Note (short form) - Note Progress Note: Subjective: The patient was seen and examined at the bedside, he is anxious for his LP tomorrow and doesn't feel like it will help him Current Medications Generic Name Dose Route Start Last Admin Trade Name Freq PRN Reason Stop Dose Admin Acetaminophen 650 mg 03/18/17 23:59 03/22/17 21:40 Tylenol - PO 650 mg Q6H PRN Administration PAIN Al Hydroxide/Mg Hydroxide 30 ml 03/23/17 10:06 Mylanta Oral Suspension - PO 03/23/17 10:07 ONCE ONE Carbidopa/Levodopa 1 combo 03/20/17 07:00 03/23/17 07:19 Sinemet *Cr* 25/100 - PO 1 combo TID@0700,1200,1700 [facility] Administration Docusate Sodium 100 mg 03/19/17 10:00 03/23/17 09:38 Colace - PO Not Given BID SIENA Heparin Sodium (Porcine) 5,000 unit 03/19/17 02:00 03/23/17 09:37 Heparin - SQ 5,000 unit Q8H-IV [facility]IENA Administration Ketorolac Tromethamine 30 mg 03/19/17 06:30 03/23/17 08:49 Toradol Injection - IVPUSH 03/24/17 06:29 30 mg Q6H PRN Administration PAIN Lisinopril 20 mg 03/21/17 14:45 03/22/17 21:39 Prinivil PO 20 mg BID [facility] Administration Magnesium Hydroxide 30 ml 03/18/17 23:52 03/22/17 09:15 Milk Of Magnesia - PO 30 ml Q8H PRN Administration CONSTIPATION Ondansetron HCl 8 mg 03/18/17 23:52 Zofran - PO Q8H PRN NAUSEA Oxycodone HCl 10 mg 03/18/17 23:59 03/20/17 21:44 Roxicodone - PO 10 mg Q6H PRN Administration PAIN Pantoprazole Sodium 40 mg 03/19/17 10:00 03/23/17 09:37 Protonix - PO 40 mg BID [facility] Administration Pramipexole Dihydrochloride 0.25 mg 03/20/17 07:00 03/23/17 06:45 Mirapex - PO 0.25 mg TID@0700,1200,1700 [facility] Administration Pramipexole Dihydrochloride 0.25 mg 03/19/17 22:00 03/22/17 21:39 Mirapex - PO 0.25 mg HS SIENA Administration Senna 2 tab 03/19/17 22:00 03/22/17 21:40 Senna - PO 2 tab HS [facility] Administration Senna 2 tab 03/19/17 10:00 03/23/17 09:37 Senna - PO 2 tab DAILY [facility] Administration Objective: Vital Signs Period Temp Pulse Resp BP Sys/Suazo Pulse Ox Last 24 Hr 98 F-98.6 F 74-90 16-20 118-148/76-83 Physical Exam: General: NAD, A&Ox3 Lungs: CTA bilaterally Heart: RRR, S1S2 Abd: Soft, non-tender, non-distended. Normoactive bowel sounds Ext: Warm, well-perfused. 2+ DP/PT bilaterally Neuro: CN 2-12 intact CBCD WBC 5.8 K/mm3 (4.0-10.0) 03/23/17 06:20 RBC 4.01 M/mm3 (4.00-5.60) 03/23/17 06:20 Hgb 13.9 GM/dL (11.7-16.9) 03/23/17 06:20 Hct 40.4 % (35.4-49) 03/23/17 06:20 MCV 100.9 fl (80-96) H 03/23/17 06:20 MCHC 34.4 g/dl (32.0-35.9) 03/23/17 06:20 RDW 14.2 % (11.9-15.9) 03/23/17 06:20 Plt Count 200 K/MM3 (134-434) 03/23/17 06:20 MPV 9.1 fl (7.5-11.1) 03/23/17 06:20 CMP Sodium 137 mmol/L (136-145) 03/23/17 06:20 Potassium 4.4 mmol/L (3.5-5.1) 03/23/17 06:20 Chloride 103 mmol/L (98-107) 03/23/17 06:20 Carbon Dioxide 24 mmol/L (21-32) 03/23/17 06:20 Anion Gap 10 (8-16) 03/23/17 06:20 BUN 23 mg/dL (7-18) H 03/23/17 06:20 Creatinine 1.5 mg/dL (0.7-1.3) H 03/23/17 06:20 Creat Clearance w eGFR 45.87 (>60) 03/23/17 06:20 Random Glucose 89 mg/dL (74-106) 03/23/17 06:20 Calcium 8.8 mg/dL (8.5-10.1) 03/23/17 06:20 Total Bilirubin 0.7 mg/dL (0.2-1.0) 03/23/17 06:20 AST 16 U/L (15-37) 03/23/17 06:20 ALT 25 U/L (12-78) D 03/23/17 06:20 Alkaline Phosphatase 48 U/L (45-117) 03/23/17 06:20 Total Protein 6.3 g/dl (6.4-8.2) L 03/23/17 06:20 Albumin 3.9 g/dl (3.4-5.0) 03/23/17 06:20 CARDIAC ENZYMES Creatine Kinase 76 IU/L (39-308) 03/18/17 17:58 Troponin I < 0.02 ng/ml (0.00-0.05) 03/18/17 17:58 Microbiology 03/19/17 22:00 Urine - Urine Clean Catch Urine Culture - Final NO GROWTH OBTAINED Assessment: This is a 71 year old male with PMHx of HTN, hyperlipidemia, paroxysmal a.fib, pulmonary htn, COPD, depression, anxiety, CKD stage 3, chronic pain who presented to the ED with worsening lower extremity pain, unsteady gait, bladder incontinence Plan: 1) Acute on chronic b/l lower extremity pain - Per neuro: refractory to multiple meds and LS laminectomies x2 - Continue Sinemet Cr 25/100 to tid - Continue Pramipexole to 0.25mg po qid - MRI c-spine: facet joints arthropathy, minimal degenerative subluxation at C3 C4, C7-T1. Posterior disc osteophyte complex at C3-C4. 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 Normal signal intensity of the spinal cord - MRI brain: No evidence of acute ischemic changes. No evidence of hemorrhage. Temporal horns of lateral ventricles are dilated. Significant loss of volume of the brain parencyma with widened cortical sulci, sylvian fissures. NPH - Discussed with Dr. Garrido, for flouro guided high volume LP tomorrow with opening pressure measurement - Will need PT assessment pre/post LP - If improvement in symptoms after LP, consider neurosurgery consult (Dr. Oneil) - B12, TSH wnl - Appreciate neuro consult 2) : TODD on CKD - Hold Lisinopril today 3) Cardiology: Paroxysmal a.fib - Not on cardizem anymore 2/2 prior syncopal episodes - Patient is refusing anticoagulation for paf HTN - As above - Start Norvasc 5) Pulmonary: COPD - Stable 6) F/E/N: - Sodium controlled diet - Monitor electrolytes 7) Prophylaxis: - Heparin 5,000u sq tid - PT 8) Dispo: - Once condition improves CODE STATUS: FULL CODE Visit type - Emergency Visit Emergency Visit: Yes ED Registration Date: 03/23/17 Care time: The patient presented to the Emergency Department on the above date and was hospitalized for further evaluation of their emergent condition. - New Patient This patient is new to me today: No - Critical Care Critical Care patient: No
[2017-03-23] MEDS ORDERED: ALPRAZolam 0.25 MG TABLET PO ONE (13:30)
[2017-03-23] MEDS: oxyCODONE HCL 5 MG TABLET PO PRN (22:08)
[2017-03-24] MEDS: HEPARIN NA (PORCINE) 5,000 UNITS/ML 1ML VIAL SQ SCH ×3 (03:46→17:47)
[2017-03-24] MEDS: KETOROLAC TROMETHAMINE 30 MG/1 ML VIAL IVPUSH PRN (03:46)
[2017-03-24] MEDS: PRAMIPEXOLE DIHYDROCHLORIDE 0.25 MG TABLET PO SCH ×4 (06:39→22:02)
[2017-03-24 08:26] LABS: BASOPHIL 0.8 % (0-2.0); MCH 34.5 pg (25.7-33.7); MCHC 33.7 g/dl (32.0-35.9); MEAN CELL VOLUME 102.2 fl (80-96); MEAN PLT VOLUME 9.5 fl (7.5-11.1); NEUTROPHILS 53.9 % (42.8-82.8); PLATELET COUNT 214 K/MM3 (134-434); RDW 13.9 % (11.9-15.9); WHITE BLOOD COUNT 6.9 K/mm3 (4.0-10.0)
[2017-03-24 09:00] LABS: ALBUMIN 4.3 g/dl (3.4-5.0); ALK PHOS 53 U/L (45-117); ANION GAP 10 (8-16); BILIRUBIN,TOTAL 0.5 mg/dL (0.2-1.0); CALCIUM 8.8 mg/dL (8.5-10.1); CO2 26 mmol/L (21-32); CREATININE 1.5 mg/dL (0.7-1.3); GLUCOSE,RANDOM 91 mg/dL (74-106); SGOT/AST 16 U/L (15-37); SGPT/ALT 29 U/L (12-78); TOT PROT 6.8 g/dl (6.4-8.2)
[2017-03-24] MEDS ORDERED: SODIUM CHLORIDE 1,000 ML IV SCH (09:45)
[2017-03-24] MEDS ORDERED: PANTOPRAZOLE SODIUM 40 MG in SODIUM CHLORIDE 100 ML IVPB ONE (10:15)
[2017-03-24 10:37] LABS: INR 1.01 (0.82-1.09); PROTHROMBIN TIME (PATIENT) 11.1 SEC (9.98-11.88)
[2017-03-24] MEDS: PANTOPRAZOLE 40 MG TABLET (FP) PO SCH ×2 (10:54→22:02)
[2017-03-24] MEDS ORDERED: PANTOPRAZOLE SODIUM 40 MG VIAL ONE (10:58)
[2017-03-24] MEDS ORDERED: SODIUM CHLORIDE 100 ML IVPB ONE (10:58)
[2017-03-24] MEDS: SENNOSIDES 8.6MG TABLET (FP) PO SCH (11:11)
[2017-03-24] MEDS: DOCUSATE SODIUM 100 MG CAPSULE (FP) PO SCH ×2 (11:11→22:02)
[2017-03-24] MEDS ORDERED: amLODIPine BESYLATE 5 MG TABLET (FP) PO ONE (15:56)
[2017-03-24 17:58] LABS: GLUCOSE,CSF 63 mg/dL (50-80)
--- NOTE | 2017-03-24 17:59 | PN ---
Physical Exam: SUBJECTIVE: Patient seen and examined at the bedside. Denies pain or shortness of breath. OBJECTIVE: For LP today Vital Signs Period Temp Pulse Resp BP Sys/Suazo Pulse Ox Last 24 Hr 97.9 F-98.6 F 77-88 18-20 120-166/84-99 94 GENERAL: The patient is awake, alert, and fully oriented, in no acute distress. HEAD: Normal with no signs of trauma. EYES: PERRL, extraocular movements intact, sclera anicteric, conjunctiva clear. No ptosis. ENT: Ears normal, nares patent, oropharynx clear without exudates, moist mucous membranes. NECK: Trachea midline, full range of motion, supple. LUNGS: Breath sounds equal, clear to auscultation bilaterally, no wheezes, no crackles, no accessory muscle use. ABDOMEN: Soft, nontender, nondistended, normoactive bowel sounds, no guarding, no rebound, no hepatosplenomegaly, no masses. EXTREMITIES: 2+ pulses, warm, well-perfused, no edema. NEUROLOGICAL: Normal speech, gait not observed. PSYCH: Normal mood, normal affect. SKIN: Warm, dry, normal turgor, no rashes or lesions noted Laboratory Results - last 24 hr 03/24/17 03/24/17 03/24/17 06:00 06:00 10:05 WBC 6.9 RBC 4.19 Hgb 14.4 Hct 42.8 MCV 102.2 H MCH 34.5 H MCHC 33.7 RDW 13.9 Plt Count 214 MPV 9.5 Neutrophils % 53.9 Lymphocytes % 30.0 Monocytes % 8.3 Eosinophils % 7.0 H Basophils % 0.8 INR 1.01 Sodium 138 Potassium 4.4 Chloride 102 Carbon Dioxide 26 Anion Gap 10 BUN 24 H Creatinine 1.5 H Creat Clearance w eGFR 45.87 Random Glucose 91 Calcium 8.8 Total Bilirubin 0.5 D AST 16 ALT 29 Alkaline Phosphatase 53 Total Protein 6.8 Albumin 4.3 CSF Glucose CSF Total Protein 03/24/17 13:52 WBC RBC Hgb Hct MCV MCH MCHC RDW Plt Count MPV Neutrophils % Lymphocytes % Monocytes % Eosinophils % Basophils % INR Sodium Potassium Chloride Carbon Dioxide Anion Gap BUN Creatinine Creat Clearance w eGFR Random Glucose Calcium Total Bilirubin AST ALT Alkaline Phosphatase Total Protein Albumin CSF Glucose 63 CSF Total Protein 53 H Active Medications Generic Name Dose Route Start Last Admin Trade Name Freq PRN Reason Stop Dose Admin Acetaminophen 650 mg 03/18/17 23:59 03/22/17 21:40 Tylenol - PO 650 mg Q6H PRN Administration PAIN Alprazolam 0.5 mg 03/23/17 18:34 Xanax - PO Q8H PRN ANXIETY Carbidopa/Levodopa 1 combo 03/20/17 07:00 03/24/17 17:14 Sinemet *Cr* 25/100 - PO 1 combo TID@0700,1200,1700 SIENA Administration Docusate Sodium 100 mg 03/19/17 10:00 03/24/17 11:11 Colace - PO Not Given BID SIENA Heparin Sodium (Porcine) 5,000 unit 03/19/17 02:00 03/24/17 17:47 Heparin - SQ 5,000 unit Q8H-IV SIENA Administration Sodium Chloride 1,000 mls @ 50 mls/hr 03/24/17 09:45 03/24/17 11:01 Normal Saline - IV 03/25/17 09:39 50 mls/hr ASDIR SIENA Administration Lisinopril 20 mg 03/21/17 14:45 03/22/17 21:39 Prinivil PO 20 mg BID SIENA Administration Magnesium Hydroxide 30 ml 03/18/17 23:52 03/22/17 09:15 Milk Of Magnesia - PO 30 ml Q8H PRN Administration CONSTIPATION Ondansetron HCl 8 mg 03/18/17 23:52 Zofran - PO Q8H PRN NAUSEA Oxycodone HCl 10 mg 03/18/17 23:59 03/23/17 22:08 Roxicodone - PO 10 mg Q6H PRN Administration PAIN Pantoprazole Sodium 40 mg 03/24/17 09:37 03/24/17 10:54 Protonix - PO Not Given BID SIENA Pramipexole Dihydrochloride 0.25 mg 03/20/17 07:00 03/24/17 17:14 Mirapex - PO 0.25 mg TID@0700,1200,1700 SIENA Administration Pramipexole Dihydrochloride 0.25 mg 03/19/17 22:00 03/23/17 22:09 Mirapex - PO 0.25 mg HS SIENA Administration Senna 2 tab 03/19/17 10:00 03/24/17 11:11 Senna - PO Not Given DAILY SIENA ASSESSMENT/PLAN: Patient is a 71 year old male with a past medical history depression, anxiety, paroxysmal afib (known LBBB), HTN, CKD stage 3, Nephrolithiasis (s/p R UVJ Stent), BPH, pulmonary htn, COPD. He presented to the ER on 03/23/2017 with worsening lower extremity pain, unsteady gait, bladder incontinence and generalized weakness. Patient stated that the LE pain has been chronic for years and getting worse in the past few months and now he's unable to ambulate. The pain is located in b/l legs, non-radiating, percocet has not helped. Patient was recently admitted for syncope (01/2017) and he c/o the same pain during hospital stay. Dr. Quan saw him and prescribed pramipexole and sinemet for early stage parkinson's disease and restless leg syndrome. Imaging: MRI brain 03/19/2017: No evidence of acute ischemic changes. No evidence of hemorrhage. Temporal horns of lateral ventricles are dilated. Significant loss of volume of the brain parencyma with widened cortical sulci, sylvian fissures. NPH Neuro: Bilateral lower ext weakness/pain with weaknes - acute on chronic A/P: s/p flouro guided high volume LP with opening pressure measurement, PT pre completed, Post PT assessment not done May need neurosurgical consult for shunt if LP shows improvement Continue Parkinson medications, will likely need rehab Neuro following Renal: Chronic Kidney Disease A/P: Lisinopril on hold secondary to TODD Given Norvasc instead 1 liter of NS, monitor CMP in a.m. Cardiology: Paroxysmal Atrial Fib Not on home anticoagulants Hypertension - chronic A/P: Lisinopril on hold secondary to TODD Started on Norvasc 5mg daily F.E.N. Fluids: Tolerating PO Electrolytes: monitor Nutrition: regular diet Prophylaxis: DVT: Heparin 5,000u sq tid GI: Protonix Disposition: Requires inpatient hospitalization. Full Code.
[2017-03-24 18:12] LABS: CSF COLOR COLORLESS
[2017-03-24 18:13] LABS: CSF APPEARANCE CLEAR; CSF RBC 6
[2017-03-24 19:51] LABS: BASOPHIL 0.7 % (0-2.0); EOSINOPHIL 6.2 % (0-4.5); MCH 34.6 pg (25.7-33.7); MCHC 34.1 g/dl (32.0-35.9); MEAN CELL VOLUME 101.3 fl (80-96); MEAN PLT VOLUME 9.3 fl (7.5-11.1); NEUTROPHILS 66.8 % (42.8-82.8); PLATELET COUNT 229 K/MM3 (134-434); RDW 13.9 % (11.9-15.9); WHITE BLOOD COUNT 8.1 K/mm3 (4.0-10.0)
[2017-03-24] MEDS ORDERED: PT OWN MED DRAWER 7, Y5N ONE (21:34)
[2017-03-24] MEDS: oxyCODONE HCL 5 MG TABLET PO PRN (22:24)
[2017-03-25] MEDS: ACETAMINOPHEN 325 MG TABLET (FP) PO PRN ×2 (01:39→07:38)
[2017-03-25] MEDS: HEPARIN NA (PORCINE) 5,000 UNITS/ML 1ML VIAL SQ SCH ×3 (01:39→18:00)
[2017-03-25] MEDS: ALPRAZolam 0.25 MG TABLET PO PRN ×2 (03:03→21:01)
[2017-03-25] MEDS ORDERED: PT OWN MED DRAWER 7, Y5N ONE (06:20)
[2017-03-25] MEDS: PRAMIPEXOLE DIHYDROCHLORIDE 0.25 MG TABLET PO SCH ×4 (06:33→21:01)
[2017-03-25] MEDS: oxyCODONE HCL 5 MG TABLET PO PRN (07:37)
--- NOTE | 2017-03-25 08:05 | PN ---
Progress Note (short form) - Note Progress Note: 71 yo man with chronic, severe, b/l leg pains refractory to multiple meds and LS laminectomies x 2. 3 years of progressive stiffness in legs with gradual loss of ambulation associated with increased leg pain and spread of pain from legs to arms. Pains are prickling, hot, numbness and are worst at rest and at night interrupting sleep. Exam supported NPH, Parkinsonism and Restless limbs syndrome. no sig change in gait with RX adjustments FU : s/p tap, OP 9, still has stiffness with his gait and he subjectively does not feel much better (OA usually worse in AM as well); c/o of pain in knees studies: MRI c-spine: facet joints arthropathy, minimal degenerative subluxation at C3 C4 , C7-T1. Posterior disc osteophyte complex at C3-C4. 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 Normal signal intensity of the spinal cord - MRI brain: No evidence of acute ischemic changes. No evidence of hemorrhage. Temporal horns of lateral ventricles are dilated. Significant loss of volume of the brain parencyma with widened cortical sulci, sylvian fissures. NPH RAINER: In diaper. - SLR. NEURO: Mild OMS CN II-XII: normal Motor: No drift or focality. + Cogwheel rigidity. Normal reflexes except absent AJ's. Toes downgoing Coord: No FTN dystaxia Sensory: Min reduced vibration in feet.plantars up Gait: Flexed and shuffling. needs cane , short stepped, not classic magnetic IMP: NPH , with cortical atrophy, has + gait spasticity and bladder incontinence Parkinson's Disease Restless Limbs Syndrome (RLS). GAit D/O multijoint oA SUGGEST: s/p flouroguided LP-- awaits rehab post LP assessment but from what I see, no clear improvement and his gait issues are multifactorial, NPH, OA , Parkinsons etc, will likely defer shunt as that also has complications --await REHAB input cont park RX needs REHAB Dr Garrido
[2017-03-25 08:30] LABS: ALBUMIN 3.8 g/dl (3.4-5.0); ANION GAP 12 (8-16); BILIRUBIN,TOTAL 0.7 mg/dL (0.2-1.0); CALCIUM 8.5 mg/dL (8.5-10.1); CO2 22 mmol/L (21-32); CREATININE 1.4 mg/dL (0.7-1.3); GLUCOSE,RANDOM 74 mg/dL (74-106); SGOT/AST 12 U/L (15-37); SGPT/ALT 23 U/L (12-78); TOT PROT 6.2 g/dl (6.4-8.2)
[2017-03-25 08:31] LABS: ALK PHOS 48 U/L (45-117)
[2017-03-25] MEDS: DOCUSATE SODIUM 100 MG CAPSULE (FP) PO SCH ×2 (11:13→21:05)
[2017-03-25] MEDS: SENNOSIDES 8.6MG TABLET (FP) PO SCH (11:13)
[2017-03-25] MEDS: PANTOPRAZOLE 40 MG TABLET (FP) PO SCH ×2 (11:13→21:01)
[2017-03-25] MEDS: LISINOPRIL 20 MG TABLET (FP) PO SCH ×2 (11:14→21:01)
[2017-03-25] MEDS: amLODIPine BESYLATE 5 MG TABLET (FP) PO SCH (11:56)
--- NOTE | 2017-03-25 17:48 | PN ---
Physical Exam: SUBJECTIVE: Patient seen and examined. He denies any headaches, vomiting, dizziness. States he feels weak, still has stiffness with his gait and he subjectively does not feel much better. OBJECTIVE: Awaiting PT notes post LP, seen by PT today - left message for therapist Patient willing to go to rehab Neurology notes reviewed Vital Signs Period Temp Pulse Resp BP Sys/Suazo Pulse Ox Last 24 Hr 98.0 F-99.4 F 72-91 18-20 121-185/43-91 96 GENERAL: The patient is awake, alert, and fully oriented, in no acute distress. HEAD: Normal with no signs of trauma. EYES: PERRL, extraocular movements intact, sclera anicteric, conjunctiva clear. No ptosis. ENT: Ears normal, nares patent, oropharynx clear without exudates, moist mucous membranes. NECK: Trachea midline, full range of motion, supple. LUNGS: Breath sounds equal, clear to auscultation bilaterally, no wheezes, no crackles, no accessory muscle use. ABDOMEN: Soft, nontender, nondistended, normoactive bowel sounds, no guarding, no rebound, no hepatosplenomegaly, no masses. EXTREMITIES: 2+ pulses, warm, well-perfused, no edema. NEUROLOGICAL: Normal speech, gait not observed. PSYCH: Normal mood, normal affect. SKIN: Warm, dry, normal turgor, no rashes or lesions noted Laboratory Results - last 24 hr 03/24/17 03/24/17 03/25/17 13:52 19:00 06:00 WBC 8.1 RBC 3.98 L Hgb 13.8 Hct 40.3 MCV 101.3 H MCH 34.6 H MCHC 34.1 RDW 13.9 Plt Count 229 MPV 9.3 Neutrophils % 66.8 D Lymphocytes % 18.5 D Monocytes % 7.8 Eosinophils % 6.2 H Basophils % 0.7 Sodium 137 Potassium 4.4 Chloride 103 Carbon Dioxide 22 Anion Gap 12 BUN 24 H Creatinine 1.4 H Creat Clearance w eGFR 49.68 Random Glucose 74 Calcium 8.5 Total Bilirubin 0.7 D AST 12 L D ALT 23 D Alkaline Phosphatase 48 Total Protein 6.2 L Albumin 3.8 CSF Appearance Clear CSF Color Colorless CSF WBC 1 CSF RBC 6 CSF Neutrophils Y CSF Glucose 63 CSF Total Protein 53 H Active Medications Generic Name Dose Route Start Last Admin Trade Name Freq PRN Reason Stop Dose Admin Acetaminophen 650 mg 03/18/17 23:59 03/25/17 07:38 Tylenol - PO 650 mg Q6H PRN Administration PAIN Alprazolam 0.5 mg 03/23/17 18:34 03/25/17 03:03 Xanax - PO 0.5 mg Q8H PRN Administration ANXIETY Amlodipine Besylate 5 mg 03/25/17 10:00 03/25/17 11:56 Norvasc - PO 5 mg DAILY SIENA Administration Carbidopa/Levodopa 1 combo 03/20/17 07:00 03/25/17 17:18 Sinemet *Cr* 25/100 - PO 1 combo TID@0700,1200,1700 SIENA Administration Docusate Sodium 100 mg 03/19/17 10:00 03/25/17 11:13 Colace - PO Not Given BID SIENA Heparin Sodium (Porcine) 5,000 unit 03/19/17 02:00 03/25/17 11:12 Heparin - SQ 5,000 unit Q8H-IV SIENA Administration Lisinopril 20 mg 03/21/17 14:45 03/25/17 11:14 Prinivil PO Not Given BID SIENA Magnesium Hydroxide 30 ml 03/18/17 23:52 03/22/17 09:15 Milk Of Magnesia - PO 30 ml Q8H PRN Administration CONSTIPATION Ondansetron HCl 8 mg 03/18/17 23:52 Zofran - PO Q8H PRN NAUSEA Oxycodone HCl 10 mg 03/18/17 23:59 03/25/17 07:37 Roxicodone - PO 10 mg Q6H PRN Administration PAIN Pantoprazole Sodium 40 mg 03/24/17 09:37 03/25/17 11:13 Protonix - PO 40 mg BID SIENA Administration Pramipexole Dihydrochloride 0.25 mg 03/20/17 07:00 03/25/17 17:18 Mirapex - PO 0.25 mg TID@0700,1200,1700 SIENA Administration Pramipexole Dihydrochloride 0.25 mg 03/19/17 22:00 03/24/17 22:02 Mirapex - PO 0.25 mg HS SIENA Administration Senna 2 tab 03/19/17 10:00 08/22/17 11:13 Senna - PO 2 tab DAILY SIENA Administration ASSESSMENT/PLAN: Patient is a 71 year old male with a past medical history depression, anxiety, paroxysmal afib (known LBBB), HTN, CKD stage 3, Nephrolithiasis (s/p R UVJ Stent), BPH, pulmonary htn, COPD. He presented to the ER on 03/23/2017 with worsening lower extremity pain, unsteady gait, bladder incontinence and generalized weakness. Patient stated that the LE pain has been chronic for years and getting worse in the past few months and now he's unable to ambulate. The pain is located in b/l legs, non-radiating, percocet has not helped. Patient was recently admitted for syncope (01/2017) and he c/o the same pain during hospital stay. Dr. Quan saw him and prescribed pramipexole and sinemet for early stage parkinson's disease and restless leg syndrome. Imaging: MRI brain 03/19/2017: No evidence of acute ischemic changes. No evidence of hemorrhage. Temporal horns of lateral ventricles are dilated. Significant loss of volume of the brain parencyma with widened cortical sulci, sylvian fissures. NPH Neuro: Bilateral lower ext weakness/pain with weaknes - acute on chronic A/P: s/p flouro guided high volume LP with opening pressure measurement, PT pre completed, Post PT assessment not done Left message for PT for updated notes as to pt ambulatory status Neuro notes reviewed Continue Parkinson medications, will likely need rehab, patient in agreement Neuro following Renal: Chronic Kidney Disease A/P: Lisinopril on hold secondary to TODD Given Norvasc instead Cardiology: Paroxysmal Atrial Fib A/P: Not on home anticoagulants Hypertension - chronic A/P: Lisinopril on hold secondary to TODD Started on Norvasc 5mg daily F.E.N. Fluids: Tolerating PO Electrolytes: monitor Nutrition: regular diet Prophylaxis: DVT: Heparin 5,000u sq tid GI: Protonix Disposition: Requires inpatient hospitalization. Full Code. Visit type - Emergency Visit Emergency Visit: Yes ED Registration Date: 03/23/17 Care time: The patient presented to the Emergency Department on the above date and was hospitalized for further evaluation of their emergent condition. - New Patient This patient is new to me today: No - Critical Care Critical Care patient: No - Discharge Referral Referred to [facility] No
[2017-03-26] MEDS: oxyCODONE HCL 5 MG TABLET PO PRN (00:47)
[2017-03-26 08:09] LABS: BASOPHIL 0.7 % (0-2.0); EOSINOPHIL 6.6 % (0-4.5); MCH 33.6 pg (25.7-33.7); MCHC 33.1 g/dl (32.0-35.9); MEAN CELL VOLUME 101.3 fl (80-96); MEAN PLT VOLUME 8.8 fl (7.5-11.1); NEUTROPHILS 64.2 % (42.8-82.8); PLATELET COUNT 198 K/MM3 (134-434); RDW 13.9 % (11.9-15.9); WHITE BLOOD COUNT 7.3 K/mm3 (4.0-10.0)
[2017-03-26 09:05] LABS: ANION GAP 10 (8-16); CALCIUM 9.1 mg/dL (8.5-10.1); CO2 23 mmol/L (21-32); GLUCOSE,RANDOM 102 mg/dL (74-106)
[2017-03-26 09:09] LABS: ALK PHOS 52 U/L (45-117); BILIRUBIN,TOTAL 0.5 mg/dL (0.2-1.0); CREATININE 1.6 mg/dL (0.7-1.3); SGOT/AST 14 U/L (15-37); SGPT/ALT 29 U/L (12-78); TOT PROT 6.6 g/dl (6.4-8.2)
[2017-03-26] MEDS ORDERED: PT OWN MED DRAWER 7, Y5N ONE ×3 (09:29→12:12)
[2017-03-26] MEDS: amLODIPine BESYLATE 5 MG TABLET (FP) PO SCH (09:35)
[2017-03-26] MEDS: DOCUSATE SODIUM 100 MG CAPSULE (FP) PO SCH ×2 (09:35→09:43)
[2017-03-26] MEDS: SENNOSIDES 8.6MG TABLET (FP) PO SCH (09:36)
[2017-03-26] MEDS: PANTOPRAZOLE 40 MG TABLET (FP) PO SCH (09:36)
[2017-03-26] MEDS: LISINOPRIL 20 MG TABLET (FP) PO SCH (09:36)
[2017-03-26] MEDS: PRAMIPEXOLE DIHYDROCHLORIDE 0.25 MG TABLET PO SCH (12:08)
--- NOTE | 2017-03-26 14:34 | DS ---
Physical Exam: SUBJECTIVE: Patient seen and examined OBJECTIVE: Vital Signs Period Temp Pulse Resp BP Sys/Suazo Pulse Ox Last 24 Hr 98.1 F-98.3 F 82-93 18-20 141-149/82-91 95 PHYSICAL EXAM GENERAL: The patient is awake, alert, and fully oriented, in no acute distress. HEAD: Normal with no signs of trauma. EYES: PERRL, extraocular movements intact, sclera anicteric, conjunctiva clear. ENT: Ears normal, nares patent, oropharynx clear without exudates, moist mucous membranes. NECK: Trachea midline, full range of motion, supple. LUNGS: Breath sounds equal, clear to auscultation bilaterally, no wheezes, no crackles, no accessory muscle use. HEART: Regular rate and rhythm, S1, S2 without murmur, rub or gallop. ABDOMEN: Soft, nontender, nondistended, normoactive bowel sounds, no guarding, no rebound, no hepatosplenomegaly, no masses. EXTREMITIES: 2+ pulses, warm, well-perfused, no edema. NEUROLOGICAL: Cranial nerves II through XII grossly intact. Normal speech, gait not observed. PSYCH: Normal mood, normal affect. SKIN: Warm, dry, normal turgor, no rashes or lesions noted. LABS Laboratory Results - last 24 hr 03/26/17 03/26/17 06:00 06:00 WBC 7.3 RBC 4.21 Hgb 14.1 Hct 42.6 MCV 101.3 H MCH 33.6 MCHC 33.1 RDW 13.9 Plt Count 198 MPV 8.8 Neutrophils % 64.2 Lymphocytes % 20.8 Monocytes % 7.7 Eosinophils % 6.6 H Basophils % 0.7 Sodium 136 Potassium 4.3 Chloride 103 Carbon Dioxide 23 Anion Gap 10 BUN 24 H Creatinine 1.6 H Creat Clearance w eGFR 42.58 Random Glucose 102 D Calcium 9.1 Total Bilirubin 0.5 D AST 14 L ALT 29 D Alkaline Phosphatase 52 Total Protein 6.6 Albumin 4.0 HOSPITAL COURSE: Date of Admission:03/23/17 Date of Discharge: 03/26/17 Discharge Summary Reason For Visit: ACUTE ON CHRONIC CONGESTIVE HEART FAILURE Current Active Problems BPH (benign prostatic hyperplasia) (Acute) Chronic obstructive pulmonary disease (COPD) (Acute) Diverticulosis (Acute) Lower extremity pain (Acute) Syncope (Acute) Carotid stenosis (Chronic) Chronic pain (Chronic) Depression (Chronic) HTN (hypertension) (Chronic) Hyperlipidemia (Chronic) LBBB (left bundle branch block) (Chronic) Osteoarthritis (Chronic) Polysubstance (excluding opioids) dependence (Chronic) SVT (supraventricular tachycardia) (Chronic) Condition: Improved - Instructions Diet, Activity, Other Instructions: Please return to the ED with new, persistent, or worsening symptoms. Please follow-up with providers as indicated. 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 Referrals: Roxann Hayden MD [Primary Care Provider] - 1 Week Gerald Quan MD [Staff Physician] - (Please follow-up with neurology within 2 -3 days for further management of your lower extremity pain and normal pressure hydrocephalus. ) Saul Millan MD [Staff Physician] - (Please follow-up with nephrology within 1 week for further management of your chronic kidney disease) Disposition: VNS/HOME HEALTH CARE - Home Medications Comprehensive Discharge Medication List: Ambulatory Orders Pantoprazole Sodium [Protonix -] 40 mg PO BID #60 tablet.ec 07/26/15 Alendronate Na [Fosamax (Weekly)] 70 mg PO WEEKLY 08/22/16 Oxycodone HCl/Acetaminophen [Percocet 5-325 mg Tablet] 1 - 2 tab PO Q4H Magnesium Hydrox 2400MG/30Ml [Milk of Magnesia -] 30 ml PO Q8H PRN 01/11/17 Docusate Sodium [Colace -] 100 mg PO BID #60 capsule 01/16/17 Ondansetron HCl [Zofran] 8 mg PO Q8H PRN #14 tablet 01/16/17 Sennosides [Senna -] 2 tab PO DAILY #30 tablet 01/16/17 Sodium Phosphate/Na Biphos [Fleet Adult Rectal Enema -] 133 ml RC WEEKLY PRN #4 enema 01/16/17 Amlodipine Besylate [Norvasc -] 5 mg PO DAILY #30 tablet 03/26/17 Carbidopa/Levodopa *Cr* 25/100 [Sinemet *Cr* 25/100 -] 1 combo PO TID@0700,1200, 1700 #30 tab 03/26/17 Pramipexole Dihydrochloride [Mirapex -] 0.25 mg PO HS #30 tablet 03/26/17 Pramipexole Dihydrochloride [Mirapex -] 0.25 mg PO TID@0700,1200,1700 #90 tablet 03/26/17 - Discharge Referral Referred to [facility] No
[2017-03-26 15:21] VITALS: BP 157/68; PULSE 102; TEMP 97.3
== END 2017-03-26 16:13 | disposition home health service (06) | DRG 57 ==
LOC: JER 15:10 → JERBED 03-19 00:17 → J8W 03-19 03:19 → OBSVTOIN 03-23 09:50
PROVIDERS: ADMIT Internal Medicine; ATTEND Registered Nurse
PROC: 009U3ZX Drainage of Spinal Canal, Percutaneous Approach, Diagnostic (ICD-10-PCS; principal; 2017-03-24)
PROC: B01B1ZZ Fluoroscopy of Spinal Cord using Low Osmolar Contrast (ICD-10-PCS; 2017-03-24)
DX: G25.81 Restless legs syndrome (principal); N17.9 Acute kidney failure, unspecified; I48.0 Paroxysmal atrial fibrillation; Z79.01 Long term (current) use of anticoagulants; J44.9 Chronic obstructive pulmonary disease, unspecified; E78.00 Pure hypercholesterolemia, unspecified; G20 Parkinson's disease; I44.7 Left bundle-branch block, unspecified; G89.29 Other chronic pain; K57.30 Diverticulosis of large intestine without perforation or abscess without bleeding; I12.9 Hypertensive chronic kidney disease with stage 1 through stage 4 chronic kidney disease, or unspecified chronic kidney disease; N18.3 Chronic kidney disease, stage 3 (moderate); I27.2 Other secondary pulmonary hypertension; M81.0 Age-related osteoporosis without current pathological fracture; F32.9 Major depressive disorder, single episode, unspecified; F41.9 Anxiety disorder, unspecified; M19.90 Unspecified osteoarthritis, unspecified site; Z91.14 Patient's other noncompliance with medication regimen; R26.81 Unsteadiness on feet; N40.1 Benign prostatic hyperplasia with lower urinary tract symptoms; N39.498 Other specified urinary incontinence
CPT/HCPCS: 36415; 62272; 70551-TC; 71010-TC; 72100-TC; 72141-TC; 74176-TC; 76000-TC; 76098-TC; 80053; 81003; 81015; 82553; 82607; 82945; 83540; 83550; 83690; 83880; 84157; 84443; 84484; 85025; 85027; 85610; 87070; 87086; 87205; 87899; 89050; 93005; 93010; 97116-GP; 97161-GP; 99284-25; G0378; J1644

== ENCOUNTER 2017-04-11 02:34 | Inpatient (IN) | payer OTHER, BC ==
[2017-04-11] MEDS ORDERED: methylPREDNISolone NA SUCC 125 MG/2 ML VIAL IVPB ONE (02:59)
[2017-04-11] MEDS ORDERED: KETOROLAC TROMETHAMINE 30 MG/1 ML VIAL IVPUSH ONE (02:59)
--- NOTE | 2017-04-11 03:20 | PDOC ---
History of Present Illness - General Chief Complaint: Pain, Acute Stated Complaint: LEG PAIN Time Seen by Provider: 04/11/17 02:35 - History of Present Illness Initial Comments: 04/11/17 03:33 Patient is a 71 year old male with a history of depression, anxiety, paroxysmal afib, Known LBBB, HTN, CKD stage 3, Nephrolithiasis(s/p R UVJ Stent), BPH and Chronic back pain who presents with acute worsening of bilateral lower extremity pain and lower back pain. The patient reports that his chronic lower extremity pain acutely worsened earlier today and did not respond to taking 4-5 percocet prompting him to present to the ED today. Of note, he had a recent admission 03/2017 for similar complaints where he underwent a diagnostic LP and MRI which did not demonstrate etiologies of his back pain. He has had 2 laminectomies in the past that did not help resolve his pain. He has presented multiple times to our ED and OSH EDs for similar worsening of his bilateral lower extremity pain. He denies saddle anesthesia, but notes some numbness and tingling in his lower extremities. He states that he is unable to ambulate at home secondary to pain. He denies fevers, chills, SOB, chest pain, abdominal pain, or changes with urination or bowel movements. Past History - Past Medical History Allergies/Adverse Reactions: Allergies Allergy/AdvReac Type Severity Reaction Status Date / Time pregabalin [From Lyrica] Allergy Mild Verified 04/11/17 02:47 pravastatin sodium Allergy Unknown Verified 04/11/17 02:47 [From Pravachol] lactose Allergy Nausea Verified 04/11/17 02:47 morphine Allergy Verified 04/11/17 02:47 peanut Allergy Verified 04/11/17 02:47 Penicillins Allergy Verified 04/11/17 02:47 Home Medications: Ambulatory Orders Pantoprazole Sodium [Protonix -] 40 mg PO BID #60 tablet.ec 07/26/15 Alendronate Na [Fosamax (Weekly)] 70 mg PO WEEKLY 08/22/16 Oxycodone HCl/Acetaminophen [Percocet 5-325 mg Tablet] 1 - 2 tab PO Q4H Magnesium Hydrox 2400MG/30Ml [Milk of Magnesia -] 30 ml PO Q8H PRN 01/11/17 Docusate Sodium [Colace -] 100 mg PO BID #60 capsule 01/16/17 Ondansetron HCl [Zofran] 8 mg PO Q8H PRN #14 tablet 01/16/17 Sennosides [Senna -] 2 tab PO DAILY #30 tablet 01/16/17 Sodium Phosphate/Na Biphos [Fleet Adult Rectal Enema -] 133 ml RC WEEKLY PRN #4 enema 01/16/17 Amlodipine Besylate [Norvasc -] 5 mg PO DAILY #30 tablet 03/26/17 Carbidopa/Levodopa *Cr* 25/100 [Sinemet *Cr* 25/100 -] 1 combo PO TID@0700,1200, 1700 #30 tab 03/26/17 Pramipexole Dihydrochloride [Mirapex -] 0.25 mg PO HS #30 tablet 03/26/17 Pramipexole Dihydrochloride [Mirapex -] 0.25 mg PO TID@0700,1200,1700 #90 tablet 03/26/17 Anemia: No Asthma: No Cancer: No Cardiac Disorders: Yes (HTN, HLD, Paroxysmal AFib) CVA: No COPD: Yes CHF: No Dementia: No Diabetes: No GI Disorders: Yes (Diverticulitis, IBS, hemorrhoids) Disorders: Yes (Englarged Prostate) HTN: Yes Hypercholesterolemia: Yes Kidney Stones: Yes (s/p Right UVJ Stent placement) Liver Disease: No Psychiatric Problems: Yes (Depression/Anxiety) Suicide Attempt (Hx): No Seizures: No Thyroid Disease: No - Surgical History Abdominal Surgery: Yes (Hernia Repair) Appendectomy: No Cardiac Surgery: No Cholecystectomy: No GI Surgery: Yes (HEMORRHOIDS/ANAL ULCER, RIGHT UVJ STENT) Lung Surgery: No Neurologic Surgery: No Orthopedic Surgery: Yes (Lumbar Back Surgery x2) - Immunization History Immunization Up to Date: Yes - Psycho/Social/Smoking Cessation Hx Anxiety: No Suicidal Ideation: No Smoking Status: No Smoking History: Unknown if ever smoked Years of Tobacco Use: 20 Have you smoked in the past 12 months: No Number of Cigarettes Smoked Daily: 0 If you are a former smoker, when did you quit?: over 25 years ago Information on smoking cessation initiated: No 'Breaking Loose' booklet given: 09/08/13 Hx Alcohol Use: No Drug/Substance Use Hx: No Substance Use Type: None Hx Substance Use Treatment: No Review of Systems - Review of Systems Constitutional: No: Chills, Fever Respiratory: No: Cough, Shortness of Breath Cardiac (ROS): Yes: Palpitations. No: Chest Pain, Lightheadedness ABD/GI: No: Constipated, Diarrhea, Nausea, Vomiting : No: Burning, Dysuria, Incontinence Integumentary: No: Rash Neurological: Yes: Numbness, Tingling, Weakness. No: Headache *Physical Exam - Vital Signs Last Vital Signs Temp Pulse Resp BP Pulse Ox 98.3 F 114 H 20 164/102 96 04/11/17 02:47 04/11/17 02:47 04/11/17 02:47 04/11/17 02:47 04/11/17 02:47 - Physical Exam Comments: 04/11/17 03:45 General Appearance: Nourished, Mild Distress Respiratory/Chest: Lungs Clear, Normal Breath Sounds. No Crackles, Rales, Rhonchi, Wheezing Cardiovascular: Regular Rhythm, Regular Rate. No Murmur, Gallop/S3, Gallop/S4 Gastrointestinal/Abdominal: Normal Bowel Sounds, Soft. No Guarding, Rebound, Tenderness Musculoskeletal: Normal Inspection Extremity: Normal Capillary Refill, Decreased range of motion in the lower extremities secondary to pain. Lumbar tenderness to palpation on exam. Integumentary: Normal Color, Dry, Warm Neurologic: Fully Oriented, Alert, Normal Mood/Affect, Normal Response Heart Score/ECG Review #1 ECG reviewed & interpreted by me at: 06:00 (LBBB) General ECG Interpretation: Sinus Rhythm, Normal Rate (79), Normal Intervals, No acute ischemic changes Compared to previous ECG there are: No significant change (03/18/17) ED Treatment Course - LABORATORY CBC & Chemistry Diagram: 04/11/17 03:17 04/11/17 03:17 Medical Decision Making - Medical Decision Making 04/11/17 03:48 Patient is a 71 year old male with a history of depression, anxiety, paroxysmal afib, Known LBBB, HTN, CKD stage 3, Nephrolithiasis(s/p R UVJ Stent), BPH and Chronic back pain who presents with acute worsening of bilateral lower extremity pain and lower back pain. The patient has had multiple presentations with difficult to control lower extremity pain. We will send a cbc, cmp, BNP, and EKG to evaluate. We will treat with torodol and solumedrol and reevaluate. 04/11/17 05:07 Patient reports continued pain. Cbc, cmp Bnp are unremarkable. 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 The patient has been unable to ambulate throughout his house due to his pain. He has been unable to ambulate to the bathroom and is currently wearing a diaper as a result. The patient has been unable to feed himself due to his pain and difficulty ambulating. We believe that he requires admission for social work evaluation and possible usp placement. We discussed the plan with the patient and he voiced understanding and is agreeable. 04/11/17 06:01 Patient discussed with the hospitalist team who agreed to accept the patient under Dr. Maloney. *DC/Admit/Observation/Transfer Diagnosis at time of Disposition: Lower extremity pain Qualifiers: Laterality: bilateral Qualified Code(s): M79.604 - Pain in right leg Back pain Qualifiers: Back pain location: low back pain Chronicity: chronic Back pain laterality: bilateral Sciatica presence: unspecified whether sciatica present Qualified Code (s): M54.5 - Low back pain - Discharge Dispostion Condition at time of disposition: Stable Admit: Yes
[2017-04-11 03:30] LABS: EOSINOPHIL 6.1 % (0-4.5); MCH 34.6 pg (25.7-33.7); MCHC 34.1 g/dl (32.0-35.9); MEAN CELL VOLUME 101.5 fl (80-96); MEAN PLT VOLUME 9.8 fl (7.5-11.1); NEUTROPHILS 56.9 % (42.8-82.8); PLATELET COUNT 142 K/MM3 (134-434); RDW 13.7 % (11.9-15.9); WHITE BLOOD COUNT 6.8 K/mm3 (4.0-10.0)
--- NOTE | 2017-04-11 03:31 | PDOC ---
Attending Attestation - HPI HPI: 04/11/17 03:52 Patient is a 71 year old male with a significant past medical history of depression, anxiety, paroxysmal afib, Known LBBB, HTN, CKD stage 3, Nephrolithiasis(s/p R UVJ Stent), BPH who presents to the ED with complaints of acute bilateral lower extremity pain. Patient reports acute lower extremity bilateral pain beginning today while at home. He states he was unable to walk at home secondary to lower extremity pain. He reports taking 4 percocets with no relief to LE pain. Patient reports to have chronic bilateral lower extremity pain but states this is much worse than normal. He reports episodes of back pain secondary to the bilateral leg pain. Patient endorses chest palpitations, as well as tingles and weakness in lower extremities. Patient was recently admitted in March and was given LP and MRI with results indicating no real Vergas for cause of pain. Was seen by Dr. Quan. Denies Allergies: Pregabalin (from Lyrica), Pravastatin (from pravachol), Lactose Allergy [Nausea], Morphin, Peanuts, Penicillin. Social history: Unknown if smoker, No alcohol use, no substance abuse. Surgical history: Laminectomy x2 PMD: None - Medical Decision Making 04/11/17 03:53 Documentation prepared by Amador Contreras, acting as medical center director for Donal Mckinley MD. <Amador Contreras - Last Filed: 04/11/17 03:52> - Resident Resident Name: Nicolás Galaviz - ED Attending Attestation I have performed the following: I have examined & evaluated the patient, The case was reviewed & discussed with the resident, I agree w/resident's findings & plan, Exceptions are as noted - Physicial Exam PE: 04/11/17 05:05 *Physical Exam General Appearance: Yes: Appropriately Dressed. No: Apparent Distress, Intoxicated HEENT: positive: EOMI, SHAUNA, Normal ENT Inspection, Normal Voice, TMs Normal, Pharynx Normal. negative: Pale Conjunctivae, Photophobia, Scleral Icterus (R), Scleral Icterus (L) Neck: positive: Trachea midline, Normal Thyroid, Supple. negative: Tender, Rigid, Carotid bruit, Stridor, Lymphadenopathy (R), Lymphadenopathy (L), Thyromegaly Respiratory/Chest: positive: Lungs Clear, Normal Breath Sounds. negative: Chest Tender, Respiratory Distress, Accessory Muscle Use, Labored Respiration, RES, Crackles, Rales, Rhonchi, Stridor, Wheezing, Dullness Cardiovascular: positive: Regular Rhythm, Regular Rate, S1, S2. negative: Edema , JVD, Murmur, Bradycardia, Tachycardia Vascular Pulses: Dorsalis-Pedis (R): 2+, Doralis-Pedis (L): 2+ Gastrointestinal/Abdominal: positive: Normal Bowel Sounds, Flat, Soft. negative : Tender, Organomegaly, Pulsatile Mass, Increased Bowel Sounds, Decreased BS, Distended, Guarding, Rebound, Hernia, Hepatomegaly, Spleenomegaly Lymphatic: negative: Adenopathy, Tenderness Musculoskeletal: positive: Normal Inspection. negative: CVA Tenderness, Decreased Range of Motion Extremity: positive: Normal Capillary Refill, Normal Inspection, Normal Range of Motion, Pelvis Stable. negative: Tender, Pedal Edema, Swelling, Erythema Integumentary: positive: Normal Color, Dry, Warm. 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 negative: EOM Palsy, Facial Droop, Sensory Deficit - Medical Decision Making 04/11/17 05:06 Pt states he has not been able to care for himself and currently wears a diaper because he is unable to get to the bathroom due to severe pain. Will admit pt for social evaluation for possible NH placement <Donal Mckinley - Last Filed: 04/11/17 05:08>
[2017-04-11 03:56] LABS: ALBUMIN 3.9 g/dl (3.4-5.0); ALK PHOS 52 U/L (45-117); ANION GAP 12 (8-16); BILIRUBIN,TOTAL 0.4 mg/dL (0.2-1.0); CALCIUM 8.7 mg/dL (8.5-10.1); CO2 22 mmol/L (21-32); CREATININE 1.3 mg/dL (0.7-1.3); GLUCOSE,RANDOM 108 mg/dL (74-106); SGPT/ALT 14 U/L (12-78); TOT PROT 6.6 g/dl (6.4-8.2)
[2017-04-11 04:02] LABS: SGOT/AST 14 U/L (15-37)
[2017-04-11] MEDS ORDERED: PATIENT'S OWN MEDICATION (NON-FORMULARY) (Alendronate Na [Fosamax (Weekly)] 70 MG) PO SCH (07:45)
[2017-04-11] MEDS ORDERED: MAGNESIUM HYDROX 2400MG/30ML ORAL SUSPENSION 30 ML CUP PO PRN (07:45)
--- NOTE | 2017-04-11 07:57 | HP ---
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 stress test in 01/14 - normal (pt reports recent one ,about 14 montsh ago,at [facility] -. normal)) Cardiovascular: Yes: HTN, Hyperlipdemia, Other (atypical chest pain in the past with neg stress test. Hx of WCT in 01/16 -. thought to be SVT at pt has underlying LBBB) Pulmonary: Yes: COPD Gastrointestinal: Yes: Constipation, Hiatal Hernia, Irritable Bowel Disease Renal/: Yes: Renal Inusuff, BPH, Renal Calculi (Patient says that he has kidney stone, ? 6 cm in one kidney) Heme/Onc: Yes: B12 Deficiency Infectious Disease: Yes: Other (?hx "shingles") Psych: Yes: Anxiety, Depression Musculoskeletal: Yes: Chronic low back pain, Osteoarthritis, Other (Lower extremity ulcerations) - Past Surgical History Past Surgical History: Yes: Hernia Repair, Laminectomy (X 2 -> "failed" per patient) - Smoking History Smoking history: Unknown if ever smoked Have you smoked in the past 12 months: No Aproximately how many cigarettes per day: 0 If you are a former smoker, when did you quit?: over 25 years ago - Alcohol/Substance Use Hx Alcohol Use: No History of Substance Use: reports: None - Social History 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 Travel: No Home Medications - Allergies Allergies/Adverse Reactions: Allergies Allergy/AdvReac Type Severity Reaction Status Date / Time pregabalin [From Lyrica] Allergy Mild Verified 04/11/17 02:47 pravastatin sodium Allergy Unknown Verified 04/11/17 02:47 [From Pravachol] lactose Allergy Nausea Verified 04/11/17 02:47 morphine Allergy Verified 04/11/17 02:47 peanut Allergy Verified 04/11/17 02:47 Penicillins Allergy Verified 04/11/17 02:47 - Home Medications Home Medications: Ambulatory Orders Pantoprazole Sodium [Protonix -] 40 mg PO BID #60 tablet.ec 07/26/15 Alendronate Na [Fosamax (Weekly)] 70 mg PO WEEKLY 08/22/16 Oxycodone HCl/Acetaminophen [Percocet 5-325 mg Tablet] 1 - 2 tab PO Q4H Magnesium Hydrox 2400MG/30Ml [Milk of Magnesia -] 30 ml PO Q8H PRN 01/11/17 Docusate Sodium [Colace -] 100 mg PO BID #60 capsule 01/16/17 Ondansetron HCl [Zofran] 8 mg PO Q8H PRN #14 tablet 01/16/17 Sennosides [Senna -] 2 tab PO DAILY #30 tablet 01/16/17 Sodium Phosphate/Na Biphos [Fleet Adult Rectal Enema -] 133 ml RC WEEKLY PRN #4 enema 01/16/17 Amlodipine Besylate [Norvasc -] 5 mg PO DAILY #30 tablet 03/26/17 Carbidopa/Levodopa *Cr* 25/100 [Sinemet *Cr* 25/100 -] 1 combo PO TID@0700,1200, 1700 #30 tab 03/26/17 Pramipexole Dihydrochloride [Mirapex -] 0.25 mg PO HS #30 tablet 03/26/17 Pramipexole Dihydrochloride [Mirapex -] 0.25 mg PO TID@0700,1200,1700 #90 tablet 03/26/17 Family Disease History - Family Disease History Family Disease History: CA: Father (lung ), Mother (gall bladder ), Other: Sister (alive: healthy) Physical Examination Vital Signs: Vital Signs Temperature 98.5 F 04/11/17 05:55 Pulse Rate 68 04/11/17 05:55 Respiratory Rate 18 04/11/17 05:55 Blood Pressure 150/80 04/11/17 05:55 O2 Sat by Pulse Oximetry (%) 99 04/11/17 05:55
--- NOTE | 2017-04-11 08:20 | HP ---
CHIEF COMPLAINT: "My back hurts and my legs hurt" PCP: HISTORY OF PRESENT ILLNESS: This is a 71 year old male with PMHx of HTN, hyperlipidemia, paroxysmal a.fib, pulmonary HTN, COPD, depression, anxiety, CKD stage 3, chronic back and b/l leg pain who presented to the ED with worsening back and lower extremity pain. He reports that since he was discharged on 03/26/17, his pain has only worsened. During that admission he was worked up for the back/leg pain and found that pain likely refractory to LS laminectomies x2. Parkinson's medications increased during that admission and LP performed. Recommended SNF to the patient but he refused. Now, the patient has increase in pain that he states is not relieved with Oxycodone or Tylenol. He reports it feels like "bones are moving in my back". He reports he urinates and stools into a diaper because he is unable to make it to the bathroom. He denies any incontinence at this time. The patient also reports his left testicle is "bothering him". ER course was notable for: (1) 98.3, HR 114, BP 164/102, resp 20, Or 96% on RA (2) Chest X-ray with scoliosis. No acute pathology. No significant change Recent Travel: denies PAST MEDICAL HISTORY: as above PAST SURGICAL HISTORY: as above Social History: Smoking: denies Alcohol: denies Drugs: denies Family History: Allergies pregabalin [From Lyrica] Allergy (Mild, Verified 04/11/17 02:47) pravastatin sodium [From Pravachol] Allergy (Unknown, Verified 04/11/17 02:47) however, pt takes atorvastatin 10 mg daily at home, reportedly without side effects lactose Allergy (Verified 04/11/17 02:47) Nausea morphine Allergy (Verified 04/11/17 02:47) unknown peanut Allergy (Verified 04/11/17 02:47) Penicillins Allergy (Verified 04/11/17 02:47) unknown affect HOME MEDICATIONS: Home Medications Medication Instructions Recorded Pantoprazole Sodium [Protonix -] 40 mg PO BID #60 tablet.ec 07/26/15 Alendronate Na [Fosamax (Weekly)] 70 mg PO WEEKLY 08/22/16 Oxycodone HCl/Acetaminophen 1 - 2 tab PO Q4H 08/22/16 [Percocet 5-325 mg Tablet] Magnesium Hydrox 2400MG/30Ml [Milk 30 ml PO Q8H PRN 01/11/17 of Magnesia -] Docusate Sodium [Colace -] 100 mg PO BID #60 capsule 01/16/17 Ondansetron HCl [Zofran] 8 mg PO Q8H PRN #14 tablet 01/16/17 Sennosides [Senna -] 2 tab PO DAILY #30 tablet 01/16/17 Sodium Phosphate/Na Biphos [Fleet 133 ml RC WEEKLY PRN #4 enema 01/16/17 Adult Rectal Enema -] Amlodipine Besylate [Norvasc -] 5 mg PO DAILY #30 tablet 03/26/17 Carbidopa/Levodopa *Cr* 25/100 1 combo PO TID@0700,1200,1700 #30 03/26/17 [Sinemet *Cr* 25/100 -] tab Pramipexole Dihydrochloride 0.25 mg PO HS #30 tablet 03/26/17 [Mirapex -] Pramipexole Dihydrochloride 0.25 mg PO TID@0700,1200,1700 #90 03/26/17 [Mirapex -] tablet REVIEW OF SYSTEMS CONSTITUTIONAL: Absent: fever, chills, diaphoresis, generalized weakness, malaise, loss of appetite, weight change HEENT: Absent: rhinorrhea, nasal congestion, throat pain, throat swelling, difficulty swallowing, mouth swelling, ear pain, eye pain, visual changes CARDIOVASCULAR: Absent: chest pain, syncope, palpitations, irregular heart rate , lightheadedness, peripheral edema RESPIRATORY: Absent: cough, shortness of breath, dyspnea with exertion, orthopnea, wheezing, stridor, hemoptysis GASTROINTESTINAL:Absent: abdominal pain, abdominal distension, nausea, vomiting , diarrhea, constipation, melena, hematochezia GENITOURINARY: Left testicular swelling that started about 1 week ago. Absent: dysuria, frequency, urgency, hesitancy, hematuria, flank pain MUSCULOSKELETAL: Chronic worsening back and lower extremity pain. Absent: myalgia, joint swelling, neck pain SKIN: Absent: rash, itching, pallor HEMATOLOGIC/IMMUNOLOGIC: Absent: easy bleeding, easy bruising, lymphadenopathy, frequent infections ENDOCRINE:Absent: unexplained weight gain, unexplained weight loss, heat intolerance, cold intolerance NEUROLOGIC: Unsteady gait 2/2 lower extremity pain. Absent: headache, focal weakness or paresthesias, dizziness, seizure, mental status changes PSYCHIATRIC: Absent: anxiety, depression, suicidal or homicidal ideation, hallucinations. PHYSICAL EXAMINATION Vital Signs - 24 hr 04/11/17 05:55 Temperature 98.5 F Pulse Rate [ 68 Apical] Respiratory 18 Rate Blood Pressure 150/80 [Right Arm] O2 Sat by Pulse 99 Oximetry (%) GENERAL: Awake, alert, and fully oriented, in no acute distress. HEAD: Normal with no signs of trauma. EYES: Pupils equal, round and reactive to light EARS, NOSE, THROAT: Ears normal, nares patent, oropharynx clear without exudates. Moist mucous membranes. NECK: Normal range of motion, supple without lymphadenopathy, JVD, or masses. LUNGS: Breath sounds equal, clear to auscultation bilaterally. No wheezes, and no crackles. No accessory muscle use. HEART: Regular rate and rhythm, normal S1 and S2 ABDOMEN: Left testicular tenderness, edema. Soft, nontender, not distended, normoactive bowel sounds MUSCULOSKELETAL: Decrease ROM in b/l lower extremities. No bony deformities UPPER EXTREMITIES: 2+ pulses, warm, well-perfused. No cyanosis. No clubbing. No peripheral edema. LOWER EXTREMITIES: 2+ pulses, warm, well-perfused. No calf tenderness. No peripheral edema. NEUROLOGICAL: Normal speech. Gait not observed PSYCHIATRIC: Appears anxious. Cooperative. Good eye contact SKIN: Warm, dry, normal turgor, no rashes or lesions noted, normal capillary refill. CBCD WBC 6.8 K/mm3 (4.0-10.0) 04/11/17 03:17 RBC 3.84 M/mm3 (4.00-5.60) L 04/11/17 03:17 Hgb 13.3 GM/dL (11.7-16.9) 04/11/17 03:17 Hct 38.9 % (35.4-49) 04/11/17 03:17 MCV 101.5 fl (80-96) H 04/11/17 03:17 MCHC 34.1 g/dl (32.0-35.9) 04/11/17 03:17 RDW 13.7 % (11.9-15.9) 04/11/17 03:17 Plt Count 142 K/MM3 (134-434) D 04/11/17 03:17 MPV 9.8 fl (7.5-11.1) D 04/11/17 03:17 CMP Sodium 142 mmol/L (136-145) 04/11/17 03:17 Potassium 4.7 mmol/L (3.5-5.1) 04/11/17 03:17 Chloride 108 mmol/L (98-107) H 04/11/17 03:17 Carbon Dioxide 22 mmol/L (21-32) 04/11/17 03:17 Anion Gap 12 (8-16) 04/11/17 03:17 BUN 25 mg/dL (7-18) H 04/11/17 03:17 Creatinine 1.3 mg/dL (0.7-1.3) 04/11/17 03:17 Creat Clearance w eGFR 54.11 (>60) 04/11/17 03:17 Random Glucose 108 mg/dL (74-106) H 04/11/17 03:17 Calcium 8.7 mg/dL (8.5-10.1) 04/11/17 03:17 Total Bilirubin 0.4 mg/dL (0.2-1.0) 04/11/17 03:17 AST 14 U/L (15-37) L 04/11/17 03:17 ALT 14 U/L (12-78) D 04/11/17 03:17 Alkaline Phosphatase 52 U/L (45-117) 04/11/17 03:17 Total Protein 6.6 g/dl (6.4-8.2) 04/11/17 03:17 Albumin 3.9 g/dl (3.4-5.0) 04/11/17 03:17 Assessment: This is a 71 year old male with PMHx of HTN, hyperlipidemia, paroxysmal a.fib, pulmonary HTN, COPD, depression, anxiety, CKD stage 3, chronic back and b/l leg pain who presented to the ED with worsening back and lower extremity pain Plan: 1) Acute on chronic b/l lower extremity pain - Per neuro note from 03/19/17: mild oms, parkinson's disease, restless limbs syndrome - Continue Sinemet Cr 25/100 to tid - Continue Pramipexole to 0.25mg po qid - B12, TSH wnl on 03/20/17 - F/u pain management consult - F/u neurology consult 2) : Left testicular pain - F/u scrotal ultrasound CKD - Cr 1.3 today - Continue to monitor 3) Cardiology: Paroxysmal a.fib - Not on cardizem anymore 2/2 prior syncopal episodes - Patient is refusing anticoagulation for paf HTN - Continue Norvasc, consider increasing if remains above goal 5) Pulmonary: COPD - Stable 6) F/E/N: - Sodium controlled diet - Monitor electrolytes 7) Prophylaxis: - Heparin 5,000u sq tid - PT evaluation 8) Dispo: - Once condition improves CODE STATUS: FULL CODE Visit type - Emergency Visit Emergency Visit: Yes ED Registration Date: 04/11/17 Care time: The patient presented to the Emergency Department on the above date and was hospitalized for further evaluation of their emergent condition. - New Patient This patient is new to me today: Yes Date on this admission: 04/11/17 - Critical Care Critical Care patient: No
--- NOTE | 2017-04-11 08:50 | EKG ---
Test Reason : Blood Pressure : / mmHG Vent. Rate : 079 BPM Atrial Rate : 079 BPM P-R Int : 164 ms QRS Dur : 140 ms QT Int : 398 ms P-R-T Axes : 020 -42 105 degrees QTc Int : 456 ms NORMAL SINUS RHYTHM LEFT AXIS DEVIATION LEFT BUNDLE BRANCH BLOCK ABNORMAL ECG WHEN COMPARED WITH ECG OF 18-MAR-2017 17:01, NO SIGNIFICANT CHANGE WAS FOUND Confirmed by SANDOVAL GORDON MD ([id number]) on 04/11/2017 8:49:40 AM Referred By: Confirmed By:SANDOVAL GORDON MD
[2017-04-11] MEDS: PANTOPRAZOLE 40 MG TABLET (FP) PO SCH ×2 (10:33→21:17)
[2017-04-11] MEDS: amLODIPine BESYLATE 5 MG TABLET (FP) PO SCH (10:33)
[2017-04-11] MEDS: SENNOSIDES 8.6MG TABLET (FP) PO SCH (10:33)
[2017-04-11] MEDS: DOCUSATE SODIUM 100 MG CAPSULE (FP) PO SCH ×2 (10:33→21:17)
[2017-04-11] MEDS: oxyCODONE HCL 5 MG TABLET PO PRN (10:34)
[2017-04-11] MEDS: ACETAMINOPHEN 325 MG TABLET (FP) PO PRN (10:36)
[2017-04-11 11:12] VITALS: BMI 29.9
[2017-04-11] MEDS ORDERED: PT OWN MED DRAWER 7, Y5N ONE ×3 (11:58→21:15)
[2017-04-11] MEDS: PRAMIPEXOLE DIHYDROCHLORIDE 0.25 MG TABLET PO SCH ×2 (12:00→16:10)
[2017-04-11] MEDS: HEPARIN NA (PORCINE) 5,000 UNITS/ML 1ML VIAL SQ SCH ×2 (14:18→21:17)
[2017-04-11 16:49] LABS: URINE APPEARANCE CLEAR; URINE BILIRUBIN NEGATIVE (NEGATIVE); URINE BLOOD NEGATIVE (NEGATIVE); URINE COLOR YELLOW; URINE GLUCOSE (UA) 1+ (NEGATIVE); URINE KETONE TRACE (NEGATIVE); URINE NITRITE NEGATIVE (NEGATIVE); URINE PROTEIN NEGATIVE (NEGATIVE); URINE UROBILINOGEN NEGATIVE mg/dL (0.2-1.0)
[2017-04-11 16:54] LABS: URINE LEUK ESTERASE 1+ (NEGATIVE)
[2017-04-11 17:04] LABS: URINE BACTERIA RARE /hpf (NONE SEEN); URINE MUCUS RARE; URINE RBC 2 /hpf (0-3); URINE WBC 10 /hpf (3-5)
[2017-04-11] MEDS ORDERED: PRAMIPEXOLE DIHYDROCHLORIDE 0.25 MG TABLET PO SCH (22:00)
[2017-04-12] MEDS: oxyCODONE HCL 5 MG TABLET PO PRN ×3 (01:54→22:21)
[2017-04-12] MEDS: ACETAMINOPHEN 325 MG TABLET (FP) PO PRN ×3 (01:55→22:21)
[2017-04-12] MEDS ORDERED: PT OWN MED DRAWER 7, Y5N ONE ×3 (05:50→16:20)
[2017-04-12] MEDS: HEPARIN NA (PORCINE) 5,000 UNITS/ML 1ML VIAL SQ SCH ×3 (05:55→21:45)
[2017-04-12] MEDS: PRAMIPEXOLE DIHYDROCHLORIDE 0.25 MG TABLET PO SCH ×2 (06:09→11:30)
[2017-04-12 09:09] LABS: BASOPHIL 0.2 % (0-2.0); EOSINOPHIL 0.4 % (0-4.5); MCH 33.9 pg (25.7-33.7); MCHC 33.8 g/dl (32.0-35.9); MEAN CELL VOLUME 100.3 fl (80-96); MEAN PLT VOLUME 8.9 fl (7.5-11.1); NEUTROPHILS 79.3 % (42.8-82.8); PLATELET COUNT 220 K/MM3 (134-434); RDW 14.1 % (11.9-15.9); WHITE BLOOD COUNT 13.2 K/mm3 (4.0-10.0)
[2017-04-12] MEDS: PANTOPRAZOLE 40 MG TABLET (FP) PO SCH ×2 (09:26→21:45)
[2017-04-12] MEDS: SENNOSIDES 8.6MG TABLET (FP) PO SCH (09:26)
[2017-04-12] MEDS: DOCUSATE SODIUM 100 MG CAPSULE (FP) PO SCH ×2 (09:26→21:43)
[2017-04-12] MEDS: amLODIPine BESYLATE 5 MG TABLET (FP) PO SCH (09:26)
[2017-04-12 09:31] LABS: ANION GAP 11 (8-16); CALCIUM 9.1 mg/dL (8.5-10.1); CO2 22 mmol/L (21-32); CREATININE 1.4 mg/dL (0.7-1.3); GLUCOSE,RANDOM 151 mg/dL (74-106); SGOT/AST 12 U/L (15-37); SGPT/ALT 14 U/L (12-78)
[2017-04-12 09:33] LABS: ALK PHOS 56 U/L (45-117); BILIRUBIN,TOTAL 0.4 mg/dL (0.2-1.0); TOT PROT 6.8 g/dl (6.4-8.2)
--- NOTE | 2017-04-12 11:04 | PN ---
Progress Note (short form) - Note Progress Note: Subjective: The patient was seen and examined at the bedside, he states he pain feels better with oxycodone. He states he is still having knee pain and finds it difficult to walk. Discussed SNF option with patient, he refused stating "I have been there and it doesn't help" He states, "I know what I need and that is surgery on my back" Current Medications Generic Name Dose Route Start Last Admin Trade Name Freq PRN Reason Stop Dose Admin Acetaminophen 325 mg 04/11/17 08:42 Tylenol - PO 04/14/17 08:41 Q4H PRN PAIN Acetaminophen 650 mg 04/11/17 08:43 04/12/17 01:55 Tylenol - PO 04/14/17 08:42 650 mg Q4H PRN Administration PAIN Amlodipine Besylate 5 mg 04/11/17 10:00 04/12/17 09:26 Norvasc - PO 5 mg DAILY SIENA Administration Carbidopa/Levodopa 1 combo 04/11/17 12:00 04/12/17 06:09 Sinemet *Cr* 25/100 - PO 1 combo TID@0700,1200,1700 SIENA Administration Docusate Sodium 100 mg 04/11/17 10:00 04/12/17 09:26 Colace - PO Not Given BID SIENA Heparin Sodium (Porcine) 5,000 unit 04/11/17 14:00 04/12/17 05:55 Heparin - SQ 5,000 unit TID SIENA Administration Magnesium Hydroxide 30 ml 04/11/17 07:45 Milk Of Magnesia - PO Q8H PRN CONSTIPATION Oxycodone HCl 5 mg 04/11/17 08:42 Roxicodone - PO Q4H PRN PAIN Oxycodone HCl 10 mg 04/11/17 08:43 04/12/17 01:54 Roxicodone - PO 10 mg Q4H PRN Administration PAIN Pantoprazole Sodium 40 mg 04/11/17 10:00 04/12/17 09:26 Protonix - PO 40 mg BID SIENA Administration Pramipexole Dihydrochloride 0.25 mg 04/11/17 12:00 04/12/17 06:09 Mirapex - PO 0.25 mg TID@0700,1200,1700 SIENA Administration Pramipexole Dihydrochloride 0.25 mg 04/11/17 22:00 04/11/17 21:17 Mirapex - PO 0.25 mg HS SIENA Administration Senna 2 tab 04/11/17 10:00 04/12/17 09:26 Senna - PO 2 tab DAILY SIENA Administration Objective: Vital Signs Period Temp Pulse Resp BP Sys/Suazo Pulse Ox Last 24 Hr 97.4 F-97.9 F 75-103 20-20 117-144/60-99 99-99 Physical Exam: General: NAD, A&Ox3 Lungs: CTA bilaterally Heart: RRR, S1S2 Abd: Soft, non-tender, non-distended. Normoactive bowel sounds Ext: Warm, well-perfused 2+ DP/PT bilaterally CBCD WBC 13.2 K/mm3 (4.0-10.0) H D 04/12/17 07:30 RBC 4.00 M/mm3 (4.00-5.60) 04/12/17 07:30 Hgb 13.5 GM/dL (11.7-16.9) 04/12/17 07:30 Hct 40.1 % (35.4-49) 04/12/17 07:30 MCV 100.3 fl (80-96) H 04/12/17 07:30 MCHC 33.8 g/dl (32.0-35.9) 04/12/17 07:30 RDW 14.1 % (11.9-15.9) 04/12/17 07:30 Plt Count 220 K/MM3 (134-434) D 04/12/17 07:30 MPV 8.9 fl (7.5-11.1) 04/12/17 07:30 CMP Sodium 138 mmol/L (136-145) 04/12/17 07:30 Potassium 4.1 mmol/L (3.5-5.1) 04/12/17 07:30 Chloride 105 mmol/L (98-107) 04/12/17 07:30 Carbon Dioxide 22 mmol/L (21-32) 04/12/17 07:30 Anion Gap 11 (8-16) 04/12/17 07:30 BUN 31 mg/dL (7-18) H D 04/12/17 07:30 Creatinine 1.4 mg/dL (0.7-1.3) H 04/12/17 07:30 Creat Clearance w eGFR 49.68 (>60) 04/12/17 07:30 Random Glucose 151 mg/dL (74-106) H D 04/12/17 07:30 Calcium 9.1 mg/dL (8.5-10.1) 04/12/17 07:30 Total Bilirubin 0.4 mg/dL (0.2-1.0) 04/12/17 07:30 AST 12 U/L (15-37) L 04/12/17 07:30 ALT 14 U/L (12-78) 04/12/17 07:30 Alkaline Phosphatase 56 U/L (45-117) 04/12/17 07:30 Total Protein 6.8 g/dl (6.4-8.2) 04/12/17 07:30 Albumin 4.0 g/dl (3.4-5.0) 04/12/17 07:30 Assessment: This is a 71 year old male with PMHx of HTN, hyperlipidemia, paroxysmal a.fib, pulmonary HTN, COPD, depression, anxiety, CKD stage 3, chronic back and b/l leg pain who presented to the ED with worsening back and lower extremity pain Plan: 1) Acute on chronic b/l lower extremity pain - Received Solu-medrol in ED, leukocytosis likely steroid induced - Pain has improved with Oxycodone - Per neuro note from 03/19/17: mild oms, parkinson's disease, restless limbs syndrome - Continue Sinemet Cr 25/100 to tid - Continue Pramipexole to 0.25mg po qid - B12, TSH wnl on 03/20/17 - Pain management consult appreciated: for possible epidural injection - F/u neurology consult - Will discuss case with Dr. Queen, reviewed all imaging from prior visit 2) : Left testicular pain - Scrotal ultrasound with left hydrocele CKD - Cr at baseline - Continue to monitor 3) Cardiology: Paroxysmal a.fib - Not on cardizem anymore 2/2 prior syncopal episodes - Patient is refusing anticoagulation for paf HTN - Continue Norvasc, consider increasing if remains above goal 5) Pulmonary: COPD - Stable 6) F/E/N: - Sodium controlled diet - Monitor electrolytes 7) Prophylaxis: - Heparin 5,000u sq tid - PT evaluation 8) Dispo: - Once condition improves CODE STATUS: FULL CODE Visit type - Emergency Visit Emergency Visit: Yes ED Registration Date: 04/11/17 Care time: The patient presented to the Emergency Department on the above date and was hospitalized for further evaluation of their emergent condition. - New Patient This patient is new to me today: No - Critical Care Critical Care patient: No
--- NOTE | 2017-04-12 14:24 | PN ---
Progress Note (short form) - Note Progress Note: PULMONARY CONSULTATION DICTATED 04/12/17 IMP COPD STABLE PAF CHRONIC BACK PAIN HTN PULMONARY HTN CKD PLAN INHALED BRONCHODILATORS PRN O2 PRN NO PULMONARY CONTRAINDICATIONS FOR SURGERY INCENTIVE SPIROMETER DR YOUNG Problem List - Problems (1) Chronic obstructive pulmonary disease (COPD) Code(s): J44.9 - CHRONIC OBSTRUCTIVE PULMONARY DISEASE, UNSPECIFIED (2) Lower extremity pain Code(s): M79.606 - PAIN IN LEG, UNSPECIFIED Qualifiers: Laterality: bilateral Qualified Code(s): M79.604 - Pain in right leg (3) Carotid stenosis Code(s): I65.29 - OCCLUSION AND STENOSIS OF UNSPECIFIED CAROTID ARTERY (4) HTN (hypertension) Code(s): I10 - ESSENTIAL (PRIMARY) HYPERTENSION Qualifiers: Hypertension type: essential hypertension Qualified Code(s): I10 - Essential (primary) hypertension (5) Afib Code(s): I48.91 - UNSPECIFIED ATRIAL FIBRILLATION (6) CKD (chronic kidney disease) stage 3, GFR 30-59 ml/min Code(s): N18.3 - CHRONIC KIDNEY DISEASE, STAGE 3 (MODERATE) (7) BPH (benign prostatic hyperplasia) Code(s): N40.0 - BENIGN PROSTATIC HYPERPLASIA WITHOUT LOWER URINRY TRACT SYMP (8) Back pain Code(s): M54.9 - DORSALGIA, UNSPECIFIED Qualifiers: Back pain location: low back pain Chronicity: chronic Back pain laterality: bilateral Sciatica presence: unspecified whether sciatica present Qualified Code(s): M54.5 - Low back pain
[2017-04-12] MEDS ORDERED: ALBUTEROL SO4 2.5/IPRATROPIUM 0.5 INH SOL 3 ML VIAL.NEB. NEB PRN (14:26)
--- NOTE | 2017-04-12 14:39 | CONSULT ---
Consult - text type - Consultation Consultation Note: NEUROLOGY CONSULTATION is greatly appreciated: This 71 yo single man lives with his disabled long-time girlfriend. Multiple, stable, medical problems including COPD and PAF. S/P LS laminectomies x 2 in the past. Recent MRI (2015) of LS spine showed adequate decompression and no residual canal stenosis. Known to me with 3 years of slowly progressive gait dysfunction and B/L leg pains. Urinary urgency and incontinence. MRI of brain (03/20) showed moderate atrophy and ventricular configuration suggesting a possible contribution from NPH. MRI of cervical spine showed DJD but no canal stenosis or cord compression. Neurological exam shows Parkinson's Disease and pain has features of PD- associated Restless legs syndrome (RLS). Walking and pain have both improved with Levadopa and pramipexole Rx but Pt remains on low doses due to transportation limitations. Now admitted after a night of severe nocturnal leg pains for which he called the ambulance at 5AM. RAINER: No bruits. Cor reg. Healed LS laminectomy scars. Neg SLR to 90 degrees NEURO: MS/Speech: Normal CN II-XII: Normal. Motor: Normal strength all groups. Cogwheel rigidity B/L is increased by reinforcement. Normal reflexes except reduced AJ's. Coord: No FTN Dystaxia Gait: Able to get OO Chair without using arms. Shuffling, flexed. IMP: Parkinson's disease. Restless Legs Syndrome Possible contribution from Normal Pressure Hydrocephalus (NPH). Suggest: Increase Sinemet CR to 50/200 TID @ 7, 12, 5 Increase Pramipexole to .5 QID @ 7, 12, 5 and 10 MRI CSF flow scan/cysternography Not a candidate for Lumbosacral surgery at this time. rehabilitation services counselor consultation. Thank you very much, Gerald Quan MD
[2017-04-12] MEDS ORDERED: LORazepam 0.5 MG TABLET PO ONE (16:13)
[2017-04-12] MEDS ORDERED: PRAMIPEXOLE DIHYDROCHLORIDE 0.5 MG TABLET PO SCH (22:00)
--- NOTE | 2017-04-12 23:38 | CONSULT ---
Consult - text type - Consultation Consultation Note: Jamie Hernandez is a 71 year old gentleman who has a history of chronic back and leg pains who presented to the [place] [facility] with a severe exacerbation of his condition. He has a history of previous surgical intervention in 2007 with decompression at the L45 level on two occasions. Unfortunately, he states that he did not improve after either procedure and describes a CSF leak and pseudomeningocele after his second surgery which "took months to heal." He developed progressive mechanical back pain since these procedures which has been refractory to all attempts at conservative treatment. In addition to activity restrictions, he describes a wide range of medications and injections as well as several courses of Physical Therapy without any improvement. Over the past 2 years, these pains have progressed and manifest as severe pain in his back which is aggravated by any weight bearing and ambulation. He is able to achieve relief by lying down, but states: "I cant spend my life lying down." Vibration and jostling such as riding in a car over a bumpy road or the railroad tracks greatly increases his pain. He has radicular pain as well and neurogenic claudication in that he walks better while leaning forward. He describes his pain as: "the bones are moving in my back." He describes that he feels the grinding in his back with any activities. I have reviewed standing scoliosis films and these demonstrate an idiopathic thoracolumbar scoliosis which is mild and now contributes to a Lumbar degenerative scoliosis. There is suggestion of osteopenia and instability with retrolisthesis at L23, L34 and L45 where decompressive laminectomies have been performed. There are lateral listheses and there is multilevel endplate sclerosis and osteophyte formation. MRI Lumbar from today suggests multilevel degenerative changes especially at L23 , L34, L45 and L5S1. There is suggestion of bilateral foraminal narrowing and lateral recess stenosis associated with this spondylolysis. There are Modic changes and vacuum phenomena at multiple levels. Recently, the pain has progressively restricted his activities of daily living. Even getting to the bathroom for toileting is very arduous for him and he has resorted to using diapers to contain his urine and stool and reduce the number of times he has to get up. He clearly and strongly describes his current condition and quality of life as being unacceptably poor. He repeatedly says: "something has to be done.I cant go on like this." He summoned EMS at 5 AM the morning of admission when his pains increased significantly. He has been offered placement in a snf facility and declined on multiple occasions. The patient relates a history of multiple ER visits and hospitalizations over the past 2 years without any progress (in his description ) towards resolution of this severely disabling condition which has now progressed. I explained that Lumbar degenerative scoliosis can be treated with surgery and he may be a candidate depending on his fitness to undergo surgery and whether any alternative treatment can be identified to afford him acceptable pain control without surgery. I explained to the patient that surgery is not mandatory to preserve neurological function, however, he is unlikely to achieve satisfactory relief from continuation of the current regimen. His severe limitations of activities of daily living and unacceptably poor quality of life in the setting of repeated exacerbations requiring ER visits and hospitalizations is associated with expected anxiety and frustration on his part. I discussed the risks, benefits and alternatives to L2-S laminectomies with reoperative decompression at L45 and T12 to S2 posterior spinal fusion with the patient in great detail. The risks included, but were not limited to: , coma, paralysis, bleeding, infection, leakage of CSF possibly requiring spinal drainage or additional surgery, instrumentation or hardware migration/ malposition/malfunction and the need for additional surgery. I explained that surgery was not certain to relieve all symptoms. I offered the patient the option of seeking another opinion or another surgeon. All questions were answered. Informed consent was obtained. The patient verbalizes a sound understanding of this information and asks that we proceed with surgery.
[2017-04-13] MEDS: oxyCODONE HCL 5 MG TABLET PO PRN (03:51)
[2017-04-13] MEDS: ACETAMINOPHEN 325 MG TABLET (FP) PO PRN (03:52)
[2017-04-13] MEDS: PRAMIPEXOLE DIHYDROCHLORIDE 0.5 MG TABLET PO SCH ×3 (06:04→22:15)
[2017-04-13] MEDS: HEPARIN NA (PORCINE) 5,000 UNITS/ML 1ML VIAL SQ SCH ×3 (07:03→23:29)
--- NOTE | 2017-04-13 07:06 | CON.CARD ---
Consult Consult Specialty:: Cardiology for Dr. Garcia/Elvia Referred by:: Hospitalist Reason for Consultation:: Perioperative cardiac risk assessment - History of Present Illness Chief Complaint: back and leg pain History of Present Illness: 71 year old man h/o HTN, HLD, AFib, LBBB, COPD, chronic back and leg pain on multiple medications, h/o recurrent syncope admitted with severe acute on chronic lower back and leg pain. Pt was seen by neurology and neurosurgery yesterday. Neurology felt surgery would not be helpful but neurosurgery felt that surgery could offer some relief of his pain and disability and thus he is planned for surgical intervention. Pt was seen and examined today in nad. No overnight events. no new complaints. He states that his back and leg pain was so severe that he was significantly disabled at home and it was not responsive to medications. He denies having any chest pain, sob, palpitations. No pnd, orthopnea, or LE edema. No recent recurrent syncope or near syncope. - History Source History Provided By: Patient, Medical Record Limitations to Obtaining History: No Limitations - Past Medical History CLINICAL COORDINATOR: Yes: Syncope (with reported negative work=up -. stress test in 01/14 - normal (pt reports recent one ,about 14 montsh ago,at [facility] -. normal)) Cardio/Vascular: Yes: HTN, Hyperlipdemia, Other (atypical chest pain in the past with neg stress test. Hx of WCT in 01/16 -. thought to be SVT at pt has underlying LBBB) Pulmonary: Yes: COPD Gastrointestinal: Yes: Constipation, Hiatal Hernia, Irritable Bowel Disease Renal/: Yes: Renal Inusuff, BPH, Renal Calculi (Patient says that he has kidney stone, ? 6 cm in one kidney) Infectious Disease: Yes: Other (?hx "shingles") Psych: Yes: Anxiety, Depression Musculoskeletal: Yes: Chronic low back pain, Osteoarthritis, Other (Lower extremity ulcerations) - Past Surgical History Past Surgical History: Yes: Hernia Repair, Laminectomy (X 2 -> "failed" per patient) - Alcohol/Substance Use Hx Alcohol Use: No History of Substance Use: reports: None - Smoking History Smoking history: Unknown if ever smoked Have you smoked in the past 12 months: No Aproximately how many cigarettes per day: 0 If you are a former smoker, when did you quit?: over 25 years ago - Social History Usual Living Arrangement: Alone 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 Travel: No Home Medications - Allergies Allergies/Adverse Reactions: Allergies Allergy/AdvReac Type Severity Reaction Status Date / Time pregabalin [From Lyrica] Allergy Mild Verified 04/11/17 02:47 pravastatin sodium Allergy Unknown Verified 04/11/17 02:47 [From Pravachol] lactose Allergy Nausea Verified 04/11/17 02:47 morphine Allergy Verified 04/11/17 02:47 peanut Allergy Verified 04/11/17 02:47 Penicillins Allergy Verified 04/11/17 02:47 - Home Medications Home Medications: Ambulatory Orders Pantoprazole Sodium [Protonix -] 40 mg PO BID #60 tablet.ec 07/26/15 Alendronate Na [Fosamax (Weekly)] 70 mg PO WEEKLY 08/22/16 Oxycodone HCl/Acetaminophen [Percocet 5-325 mg Tablet] 1 - 2 tab PO Q4H Magnesium Hydrox 2400MG/30Ml [Milk of Magnesia -] 30 ml PO Q8H PRN 01/11/17 Docusate Sodium [Colace -] 100 mg PO BID #60 capsule 01/16/17 Ondansetron HCl [Zofran] 8 mg PO Q8H PRN #14 tablet 01/16/17 Sennosides [Senna -] 2 tab PO DAILY #30 tablet 01/16/17 Sodium Phosphate/Na Biphos [Fleet Adult Rectal Enema -] 133 ml RC WEEKLY PRN #4 enema 01/16/17 Amlodipine Besylate [Norvasc -] 5 mg PO DAILY #30 tablet 03/26/17 Carbidopa/Levodopa *Cr* 25/100 [Sinemet *Cr* 25/100 -] 1 combo PO TID@0700,1200, 1700 #30 tab 03/26/17 Pramipexole Dihydrochloride [Mirapex -] 0.25 mg PO HS #30 tablet 03/26/17 Pramipexole Dihydrochloride [Mirapex -] 0.25 mg PO TID@0700,1200,1700 #90 tablet 03/26/17 Family Disease History - Family Disease History Family Disease History: CA: Father (lung ), Mother (gall bladder ), Other: Sister (alive: healthy) Review of Systems - Review of Systems Constitutional: denies: No Symptoms, Chills, Diaphoresis, Fever, Lethargy, Loss of Appetite, Malaise, Night Sweats, Unintentional Wgt. Loss, Weakness, Other Eyes: denies: No Symptoms, Blind Spots, Blurred Vision, Double Vision, Eye Pain , Floaters, Photophobia, Recent Change in Vision, Other HENT: denies: No Symptoms, Difficult Swallowing, Ear Discharge, Ear Pain, Epistaxis, Gingival Bleeding, Hearing Loss, Mouth Swelling, Nasal Congestion, Ocular Prosthesis, Throat Pain, Toothache, Ringing in Ears, Other Neck: denies: No Symptoms, Decreased ROM, Lumps, Pain on Movement, Stiffness, Swollen Glands, Tenderness, Other Cardiovascular: denies: No Symptoms, Chest Pain, Edema, Palpitations, Shortness of Breath, Other Respiratory: denies: No Symptoms, Cough, Exercise Intolerance, Hemoptysis, Orthopnea, PND, Snoring, SOB, SOB on Exertion, Wheezing, Other Gastrointestinal: denies: No Symptoms, Abdominal Pain, Bloating, Constipation, Diarrhea, Dysphagia, Indigestion, Melena, Nausea, Rectal Bleeding, Vomiting, Vomiting Blood, Other Genitourinary: denies: No Symptoms, Burning, Discharge, Dysuria, Flank Pain, Frequency, Hematuria, Incontinence, Lesions, Menses, Pain, Testicular Mass, Testicular Pain, Testicular Swelling, Urgency, Vaginal Bleeding, Other Breasts: denies: No Symptoms Reported, See HPI, Breast Implants, Discharge from Nipple, Lumps, Pain, Skin Changes, Other Musculoskeletal: reports: Back Pain, Decreased ROM, Extremity Pain, Joint Pain, Muscle Weakness. denies: No Symptoms, Crepitus, Joint Swelling, Muscle Pain, Muscle Cramps, Other Integumentary: denies: No Symptoms, Blister, Bruising, Change in Color, Eczema, Erythema, Incision, Lesions, Lump, Pallor, Pruritis, Rash, Wound, Other Neurological: reports: Pre-Existing Deficit, Syncope, Tremors, Unsteady Gait, Weakness. denies: No Symptoms, Change in LOC, Change in Speech, Confusion, Dizziness, Headache, Incoordination, Numbness, Parasthesia, Seizure, Other Endocrine: denies: No Symptoms, Excessive Sweating, Flushing, Increased Hunger, Increased Thirst, Intolerance to Cold, Intolerance to Heat, Unexplained Weight Gain, Unexplained Weight Loss, Other Hematology/Lymphatic: denies: No Symptoms, Easily Bruised, Excessive Bleeding, Swollen Glands, Other Psychiatric: denies: No Symptoms, Altered Sleep Pattern, Anxiety, Depression, Hallucinations, Panic, Paranoia, Suicidal, Other - Risk Factors Known Risk Factors: Yes: Hypercholesterolemia, Hypertension Vital Signs: Vital Signs Temperature 98.4 F 04/13/17 05:44 Pulse Rate 66 04/13/17 05:44 Respiratory Rate 18 04/13/17 05:44 Blood Pressure 139/64 04/13/17 05:44 O2 Sat by Pulse Oximetry (%) 96 04/12/17 22:00 Constitutional: Yes: Well Nourished, No Distress, Calm Eyes: Yes: WNL, Conjunctiva Clear, EOM Intact, PERRL HENT: Yes: WNL, Atraumatic, Normocephalic Neck: Yes: WNL, Supple, Trachea Midline Respiratory: Yes: WNL, Regular, CTA Bilaterally. No: Rhonchi, Wheezes Gastrointestinal: Yes: WNL, Normal Bowel Sounds, Soft. No: Distention, Tenderness Renal/: Yes: WNL Cardiovascular: Yes: WNL, Regular Rate and Rhythm. No: Pulse Irregular, Gallop , Rub, Varicosities JVD: No Carotid Bruit: No PMI: Non-Displaced Heart Sounds: Yes: S1, S2. No: Split S2, S3, S4, Clicks, Gallop, Rub, Bruit Murmur: No: Systolic Murmur, Diastolic Murmur Musculoskeletal: Yes: Back Pain, Joint Stiffness, Muscle Weakness. No: WNL, Joint Swelling, Muscle Pain, Other Extremities: Yes: WNL Edema: No Peripheral Pulses WNL: Yes Peripheral Pulses: 2+ Left Doralis Pedis, 2+ Right Dorsalis Pedis Integumentary: Yes: WNL Neurological: Yes: Alert, Oriented Psychiatric: Yes: Alert, Oriented - Other Data Labs, Other Data: CBC, BMP 04/12/17 07:30 04/12/17 07:30 ekg-nsr 79bpm, LBBB, no sig change from prior ekgs Echo: Report Reviewed Ejection Fraction %: LVEF > or = 40 % Imaging - Results Chest X-ray: Report Reviewed, Image Reviewed EKG: Report Reviewed, Image Reviewed (ekg-nsr 79bpm, LBBB, no sig change from prior ekgs) Other: Report Reviewed, Image Reviewed Assessment/Plan 71 year old man h/o HTN, HLD, PAFib, LBBB, COPD, chronic back and leg pain on multiple medications, h/o recurrent syncope admitted with severe acute on chronic lower back and leg pain. Perioperative cardiac risk assessment prior to spinal surgery -From a cardiac standpoint there is no absolute cardiac contraindication to the planned procedure. -HTN is adequately controlled -EKG shows LBBB which is chronic and known -pt reports no recent symptoms of chest pain or sob -pt reports recent nuclear stress test that showed no ischemia -last echo 11/2016 here showed mildly reduced LV systolic function, mild to mod valvular abnl (none signifcant pertaining to surgery) -pt was taken off of Cardizem and Lisinopril after recent admission, maintained on norvasc alone -would not initiate a bblocker at this time as there is insufficient time to titrate to appropriate dose -as per review of EMR pt has not been on ASA or Plavix or other AC -Neurology and neurosurgery to determine appropriate treatment plan. -recc routine perioperative monitoring Arrhythmia-as per EMR h/o Pafib also reported h/o SVT -unclear details -not on AC at home -currently NSR -monitor for now and will obtain further information from Dr. Garcia as to treatment plan HTN-adequately controlled for now, h/o syncope possible orthostatic hypotension -cont norvasc for now
[2017-04-13 08:24] LABS: MCH 33.9 pg (25.7-33.7); MCHC 33.6 g/dl (32.0-35.9); MEAN CELL VOLUME 100.8 fl (80-96); MEAN PLT VOLUME 8.6 fl (7.5-11.1); PLATELET COUNT 195 K/MM3 (134-434); WHITE BLOOD COUNT 11.4 K/mm3 (4.0-10.0)
[2017-04-13 08:43] LABS: ACTIVATED PTT 34.6 SECONDS (26.9-34.4)
[2017-04-13 08:49] LABS: ALBUMIN 3.9 g/dl (3.4-5.0); ANION GAP 9 (8-16); CALCIUM 8.6 mg/dL (8.5-10.1); CO2 24 mmol/L (21-32); GLUCOSE,RANDOM 91 mg/dL (74-106)
[2017-04-13 08:53] LABS: ALK PHOS 54 U/L (45-117); BILIRUBIN,TOTAL 0.5 mg/dL (0.2-1.0); CREATININE 1.4 mg/dL (0.7-1.3); SGOT/AST 12 U/L (15-37); SGPT/ALT 25 U/L (12-78); TOT PROT 6.3 g/dl (6.4-8.2)
[2017-04-13] MEDS: SENNOSIDES 8.6MG TABLET (FP) PO SCH (10:17)
[2017-04-13] MEDS: DOCUSATE SODIUM 100 MG CAPSULE (FP) PO SCH ×2 (10:17→22:15)
[2017-04-13] MEDS: PANTOPRAZOLE 40 MG TABLET (FP) PO SCH ×2 (10:18→22:15)
[2017-04-13] MEDS: amLODIPine BESYLATE 5 MG TABLET (FP) PO SCH (10:18)
--- NOTE | 2017-04-13 11:05 | PN ---
Progress Note, Physician History of Present Illness: PULMONARY ALERT,-RESP DISTRESS,FOR SURGERY TODAY - Current Medication List Current Medications: Active Medications Acetaminophen (Tylenol -) 325 mg PO Q4H PRN PRN Reason: PAIN Stop: 04/14/17 08:41 Last Admin: 04/13/17 03:52 Dose: 325 mg Acetaminophen (Tylenol -) 650 mg PO Q4H PRN PRN Reason: PAIN Stop: 04/14/17 08:42 Last Admin: 04/12/17 12:35 Dose: 650 mg Albuterol/Ipratropium (Duoneb -) 1 amp NEB Q4H PRN PRN Reason: SHORTNESS OF BREATH Amlodipine Besylate (Norvasc -) 5 mg PO DAILY [facility] Last Admin: 04/13/17 10:18 Dose: 5 mg Carbidopa/Levodopa (Sinemet *Cr* 50/200 -) 1 combo PO 0700,1200,1700 [facility] Last Admin: 04/13/17 06:04 Dose: Not Given Docusate Sodium (Colace -) 100 mg PO BID [facility] Last Admin: 04/13/17 10:17 Dose: Not Given Heparin Sodium (Porcine) (Heparin -) 5,000 unit SQ TID [facility] Last Admin: 04/13/17 07:03 Dose: Not Given Magnesium Hydroxide (Milk Of Magnesia -) 30 ml PO Q8H PRN PRN Reason: CONSTIPATION Oxycodone HCl (Roxicodone -) 5 mg PO Q4H PRN PRN Reason: PAIN Last Admin: 04/13/17 03:51 Dose: 5 mg Oxycodone HCl (Roxicodone -) 10 mg PO Q4H PRN PRN Reason: PAIN Last Admin: 04/12/17 12:34 Dose: 10 mg Pantoprazole Sodium (Protonix -) 40 mg PO BID [facility] Last Admin: 04/13/17 10:18 Dose: 40 mg Pramipexole Dihydrochloride (Mirapex -) 0.5 mg PO HS [facility] Last Admin: 04/12/17 21:45 Dose: 0.5 mg Pramipexole Dihydrochloride (Mirapex -) 0.5 mg PO 0700,1200,1700 [facility] Last Admin: 04/13/17 06:04 Dose: Not Given Senna (Senna -) 2 tab PO DAILY [facility] Last Admin: 04/13/17 10:17 Dose: Not Given - Objective Vital Signs: Vital Signs Temperature 98.7 F 04/13/17 09:07 Pulse Rate 98 H 04/13/17 09:07 Respiratory Rate 20 04/13/17 09:07 Blood Pressure 131/93 04/13/17 09:07 O2 Sat by Pulse Oximetry (%) 96 04/12/17 22:00 Constitutional: Yes: Well Nourished, Calm Eyes: Yes: WNL HENT: Yes: WNL Neck: Yes: WNL Cardiovascular: Yes: Regular Rate and Rhythm, S1, S2 Respiratory: Yes: CTA Bilaterally Gastrointestinal: Yes: Normal Bowel Sounds, Soft Extremities: Yes: WNL Edema: No Labs: CBC, BMP 04/13/17 06:00 04/13/17 06:00 INR, PTT INR 1.00 (0.82-1.09) 04/13/17 06:00 Problem List - Problems (1) Chronic obstructive pulmonary disease (COPD) Code(s): J44.9 - CHRONIC OBSTRUCTIVE PULMONARY DISEASE, UNSPECIFIED (2) Lower extremity pain Code(s): M79.606 - PAIN IN LEG, UNSPECIFIED Qualifiers: Laterality: bilateral Qualified Code(s): M79.604 - Pain in right leg (3) Carotid stenosis Code(s): I65.29 - OCCLUSION AND STENOSIS OF UNSPECIFIED CAROTID ARTERY (4) HTN (hypertension) Code(s): I10 - ESSENTIAL (PRIMARY) HYPERTENSION Qualifiers: Hypertension type: essential hypertension Qualified Code(s): I10 - Essential (primary) hypertension (5) Afib Code(s): I48.91 - UNSPECIFIED ATRIAL FIBRILLATION (6) CKD (chronic kidney disease) stage 3, GFR 30-59 ml/min Code(s): N18.3 - CHRONIC KIDNEY DISEASE, STAGE 3 (MODERATE) (7) BPH (benign prostatic hyperplasia) Code(s): N40.0 - BENIGN PROSTATIC HYPERPLASIA WITHOUT LOWER URINRY TRACT SYMP (8) Back pain Code(s): M54.9 - DORSALGIA, UNSPECIFIED Qualifiers: Back pain location: low back pain Chronicity: chronic Back pain laterality: bilateral Sciatica presence: unspecified whether sciatica present Qualified Code(s): M54.5 - Low back pain Assessment/Plan IMP COPD STABLE PAF CHRONIC BACK PAIN HTN PULMONARY HTN CKD PLAN INHALED BRONCHODILATORS PRN O2 PRN NO PULMONARY CONTRAINDICATIONS FOR SURGERY INCENTIVE SPIROMETER POST OP DR YOUNG Problem List - Problems (1) Chronic obstructive pulmonary disease (COPD) Code(s): J44.9 - CHRONIC OBSTRUCTIVE PULMONARY DISEASE, UNSPECIFIED (2) Lower extremity pain Code(s): M79.606 - PAIN IN LEG, UNSPECIFIED Qualifiers: Laterality: bilateral Qualified Code(s): M79.604 - Pain in right leg (3) Carotid stenosis Code(s): I65.29 - OCCLUSION AND STENOSIS OF UNSPECIFIED CAROTID ARTERY (4) HTN (hypertension) Code(s): I10 - ESSENTIAL (PRIMARY) HYPERTENSION Qualifiers: Hypertension type: essential hypertension Qualified Code(s): I10 - Essential (primary) hypertension (5) Afib Code(s): I48.91 - UNSPECIFIED ATRIAL FIBRILLATION (6) CKD (chronic kidney disease) stage 3, GFR 30-59 ml/min Code(s): N18.3 - CHRONIC KIDNEY DISEASE, STAGE 3 (MODERATE) (7) BPH (benign prostatic hyperplasia) Code(s): N40.0 - BENIGN PROSTATIC HYPERPLASIA WITHOUT LOWER URINRY TRACT SYMP (8) Back pain Code(s): M54.9 - DORSALGIA, UNSPECIFIED Qualifiers: Back pain location: low back pain Chronicity: chronic Back pain laterality: bilateral Sciatica presence: unspecified whether sciatica present Qualified Code(s): M54.5 - Low back pain
--- NOTE | 2017-04-13 11:21 | PN ---
Progress Note (short form) - Note Progress Note: Subjective: The patient was seen and examined at the bedside, he is going for surgery today and has been NPO after midnight Pulmonary and cardiac clearance for surgery Current Medications Generic Name Dose Route Start Last Admin Trade Name Freq PRN Reason Stop Dose Admin Acetaminophen 325 mg 04/11/17 08:42 Tylenol - PO 04/14/17 08:41 Q4H PRN PAIN Acetaminophen 650 mg 04/11/17 08:43 04/12/17 01:55 Tylenol - PO 04/14/17 08:42 650 mg Q4H PRN Administration PAIN Amlodipine Besylate 5 mg 04/11/17 10:00 04/12/17 09:26 Norvasc - PO 5 mg DAILY SIENA Administration Carbidopa/Levodopa 1 combo 04/11/17 12:00 04/12/17 06:09 Sinemet *Cr* 25/100 - PO 1 combo TID@0700,1200,1700 SIENA Administration Docusate Sodium 100 mg 04/11/17 10:00 04/12/17 09:26 Colace - PO Not Given BID SIENA Heparin Sodium (Porcine) 5,000 unit 04/11/17 14:00 04/12/17 05:55 Heparin - SQ 5,000 unit TID SIENA Administration Magnesium Hydroxide 30 ml 04/11/17 07:45 Milk Of Magnesia - PO Q8H PRN CONSTIPATION Oxycodone HCl 5 mg 04/11/17 08:42 Roxicodone - PO Q4H PRN PAIN Oxycodone HCl 10 mg 04/11/17 08:43 04/12/17 01:54 Roxicodone - PO 10 mg Q4H PRN Administration PAIN Pantoprazole Sodium 40 mg 04/11/17 10:00 04/12/17 09:26 Protonix - PO 40 mg BID SIENA Administration Pramipexole Dihydrochloride 0.25 mg 04/11/17 12:00 04/12/17 06:09 Mirapex - PO 0.25 mg TID@0700,1200,1700 SIENA Administration Pramipexole Dihydrochloride 0.25 mg 04/11/17 22:00 04/11/17 21:17 Mirapex - PO 0.25 mg HS SIENA Administration Senna 2 tab 04/11/17 10:00 04/12/17 09:26 Senna - PO 2 tab DAILY SIENA Administration Objective: Vital Signs Period Temp Pulse Resp BP Sys/Suazo Pulse Ox Last 24 Hr 98.3 F-98.7 F 66-98 18-20 120-156/64-93 96-99 Physical Exam: General: NAD, A&Ox3 Lungs: CTA bilaterally Heart: RRR, S1S2 Abd: Soft, non-tender, non-distended. Normoactive bowel sounds Ext: Warm, well-perfused 2+ DP/PT bilaterally CBCD WBC 11.4 K/mm3 (4.0-10.0) H 04/13/17 06:00 RBC 4.08 M/mm3 (4.00-5.60) 04/13/17 06:00 Hgb 13.8 GM/dL (11.7-16.9) 04/13/17 06:00 Hct 41.1 % (35.4-49) 04/13/17 06:00 MCV 100.8 fl (80-96) H 04/13/17 06:00 MCHC 33.6 g/dl (32.0-35.9) 04/13/17 06:00 RDW 14.0 % (11.9-15.9) 04/13/17 06:00 Plt Count 195 K/MM3 (134-434) 04/13/17 06:00 MPV 8.6 fl (7.5-11.1) 04/13/17 06:00 CMP Sodium 140 mmol/L (136-145) 04/13/17 06:00 Potassium 4.3 mmol/L (3.5-5.1) 04/13/17 06:00 Chloride 107 mmol/L (98-107) 04/13/17 06:00 Carbon Dioxide 24 mmol/L (21-32) 04/13/17 06:00 Anion Gap 9 (8-16) 04/13/17 06:00 BUN 30 mg/dL (7-18) H 04/13/17 06:00 Creatinine 1.4 mg/dL (0.7-1.3) H 04/13/17 06:00 Creat Clearance w eGFR 49.68 (>60) 04/13/17 06:00 Random Glucose 91 mg/dL (74-106) D 04/13/17 06:00 Calcium 8.6 mg/dL (8.5-10.1) 04/13/17 06:00 Total Bilirubin 0.5 mg/dL (0.2-1.0) D 04/13/17 06:00 AST 12 U/L (15-37) L 04/13/17 06:00 ALT 25 U/L (12-78) D 04/13/17 06:00 Alkaline Phosphatase 54 U/L (45-117) 04/13/17 06:00 Total Protein 6.3 g/dl (6.4-8.2) L 04/13/17 06:00 Albumin 3.9 g/dl (3.4-5.0) 04/13/17 06:00 Microbiology 04/11/17 15:40 Urine - Urine Clean Catch Urine Culture - Preliminary Staphylococcus Coagulase Neg Assessment: This is a 71 year old male with PMHx of HTN, hyperlipidemia, paroxysmal a.fib, pulmonary HTN, COPD, depression, anxiety, CKD stage 3, chronic back and b/l leg pain who presented to the ED with worsening back and lower extremity pain Plan: 1) Acute on chronic b/l lower extremity pain - For neurosurgery today - Received Solu-medrol in ED, leukocytosis likely steroid induced, improving - Per neuro note from 03/19/17: mild oms, parkinson's disease, restless limbs syndrome - Continue Sinemet Cr 25/100 to tid - Continue Pramipexole to 0.25mg po qid - B12, TSH wnl on 03/20/17 - Pain management consult appreciated: for possible epidural injection - Appreciate neurology consult - Appreciate Dr. Queen consult 2) : Left testicular pain - Scrotal ultrasound with left hydrocele CKD - Cr at baseline - Continue to monitor 3) Cardiology: Paroxysmal a.fib - Not on cardizem anymore 2/2 prior syncopal episodes - Patient is refusing anticoagulation for paf HTN - Continue Norvasc, consider increasing if remains above goal 5) Pulmonary: COPD - Stable 6) F/E/N: - Sodium controlled diet - Monitor electrolytes 7) Prophylaxis: - Heparin 5,000u sq tid - PT evaluation 8) Dispo: - Once condition improves CODE STATUS: FULL CODE Visit type - Emergency Visit Emergency Visit: Yes ED Registration Date: 04/11/17 Care time: The patient presented to the Emergency Department on the above date and was hospitalized for further evaluation of their emergent condition. - New Patient This patient is new to me today: No - Critical Care Critical Care patient: No
[2017-04-13] MEDS ORDERED: PROPOFOL 20 ML ONE ×2 (11:23)
[2017-04-13] MEDS ORDERED: SUCCINYLCHOLINE CHLORIDE 200 MG/10 ML VIAL ONE (11:23)
[2017-04-13] MEDS ORDERED: ROCURONIUM BROMIDE 50 MG/5 ML VIAL ONE ×4 (11:24→16:57)
[2017-04-13] MEDS ORDERED: MIDAZOLAM HCL 2 MG/2 ML SINGLE DOSE VIAL ONE (11:37)
[2017-04-13] MEDS ORDERED: ePHEDrine SULFATE 50 MG/1 ML AMPULE ONE (11:39)
[2017-04-13] MEDS ORDERED: ceFAZolin SODIUM 1 GM VIAL ONE (11:56)
[2017-04-13] MEDS ORDERED: GENTAMICIN SO4 80 MG/2 ML VIAL ONE ×2 (12:30→15:16)
[2017-04-13] MEDS ORDERED: LIDOCAINE HCL 0.5%, 5 MG/ML (50mL SDVIAL) INF ONE (12:45)
[2017-04-13] MEDS ORDERED: BACITRACIN 50,000 UNITS VIAL NR ONE (13:45)
[2017-04-13] MEDS ORDERED: GENTAMICIN SO4 80 MG/2 ML VIAL IVPB ONE (13:45)
--- NOTE | 2017-04-13 13:45 | CONS ---
DATE OF CONSULTATION: 04/12/2017 REFERRING PHYSICIAN: Génesis Bansal NP The patient is a 71-year-old white male with past medical history of hypertension, paroxysmal atrial fibrillation, COPD stable, hyperlipidemia, pulmonary hypertension, depression, anxiety, chronic kidney disease stage 3, chronic back pain, bilateral lower extremity pain, status post LS laminectomy x2, admitted to [facility] with complaint of worsening back and lower extremity pain. Patient admitted due to the above. On admission, he was evaluated by Neurosurgery, felt to undergo possible surgery in the a.m. The patient denies any shortness of breath, denies any chest pain or palpitation, denies any chronic cough or hemoptysis. He has a history of smoking, quit many years ago. 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 PAST MEDICAL HISTORY: Again, includes hypertension, hyperlipidemia, paroxysmal atrial fibrillation, pulmonary hypertension, COPD, depression, anxiety, chronic kidney disease stage 3, chronic back pain status post laminectomy x2. REVIEW OF SYSTEMS: No orthopnea. No PND. No shortness of breath. No cough. No hemoptysis. No abdominal pain. Positive back pain. CURRENT MEDICATIONS: Include Tylenol, heparin, Colace, milk of magnesia, Sinemet, Mirapex, oxycodone, and Protonix. PHYSICAL EXAMINATION: General: The patient is a well-developed, well-nourished male, awake, alert, in no acute distress. Vital Signs: Blood pressure 141/87, respiratory rate is 20, O2 saturation is 99% on room air. HEENT: Normocephalic, atraumatic. Neck: Supple without adenopathy. Heart: Regular, S1, S2. Chest: Clear. Abdomen: Soft. Bowel sounds are positive. Extremities: No cyanosis or edema. LABORATORIES: WBC 13.2, hemoglobin 13.5, hematocrit 40.1, platelet count 220,000. BUN 31, creatinine 1.4. Chest x-ray with scoliosis but no acute infiltrates and no effusions. IMPRESSION: 1. Chronic obstructive pulmonary disease, currently clinically stable. 2. Chronic back pain. 3. Scoliosis. 4. Paroxysmal atrial fibrillation. 5. Pulmonary hypertension. PLAN: Inhaled bronchodilators p.r.n., analgesics. At this time, there are no pulmonary contraindications to possible surgery. Incentive spirometry postop. CONOR YOUNG M.D. ABIMAEL/[id number]
[2017-04-13] MEDS ORDERED: THROMBIN (BOVINE) 5,000 UNIT VIAL TP ONE (13:47)
[2017-04-13] MEDS ORDERED: ALBUMIN HUMAN 5% 250 ML IV SOLUTION IVPB ONE ×2 (16:00→19:45)
[2017-04-13] MEDS ORDERED: ceFAZolin SODIUM 1 GM VIAL IVPB ONE (16:45)
[2017-04-13] MEDS ORDERED: VANCOMYCIN 1,250 MG in DEXTROSE 5%-WATER - 250 ML IVPB ONE ×2 (17:19→19:45)
--- NOTE | 2017-04-13 17:19 | CON.ID ---
Consult Consult Specialty:: infectious diseases Reason for Consultation:: uti,repeated - History of Present Illness History of Present Illness: 71 year old man h/o HTN, HLD, AFib, LBBB, COPD, chronic back and leg pain on multiple medications, h/o recurrent syncope admitted with severe acute on chronic lower back and leg pain. Pt was seen by neurology and neurosurgery yesterday. 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 stress test in 01/14 - normal (pt reports recent one ,about 14 montsh ago,at [facility] -. normal)) Cardio/Vascular: Yes: HTN, Hyperlipdemia, Other (atypical chest pain in the past with neg stress test. Hx of WCT in 01/16 -. thought to be SVT at pt has underlying LBBB) Pulmonary: Yes: COPD Gastrointestinal: Yes: Constipation, Hiatal Hernia, Irritable Bowel Disease Renal/: Yes: Renal Inusuff, BPH, Renal Calculi (Patient says that he has kidney stone, ? 6 cm in one kidney) Infectious Disease: Yes: Other (?hx "shingles") Psych: Yes: Anxiety, Depression Musculoskeletal: Yes: Chronic low back pain, Osteoarthritis, Other (Lower extremity ulcerations) - Past Surgical History Past Surgical History: Yes: Hernia Repair, Laminectomy (X 2 -> "failed" per patient) - Alcohol/Substance Use Hx Alcohol Use: No History of Substance Use: reports: None - Smoking History Smoking history: Unknown if ever smoked Have you smoked in the past 12 months: No Aproximately how many cigarettes per day: 0 If you are a former smoker, when did you quit?: over 25 years ago - Social History Usual Living Arrangement: Alone 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 Travel: No Home Medications - Allergies Allergies/Adverse Reactions: Allergies Allergy/AdvReac Type Severity Reaction Status Date / Time pregabalin [From Lyrica] Allergy Mild Verified 04/11/17 02:47 pravastatin sodium Allergy Unknown Verified 04/11/17 02:47 [From Pravachol] lactose Allergy Nausea Verified 04/11/17 02:47 morphine Allergy Verified 04/11/17 02:47 peanut Allergy Verified 04/11/17 02:47 Penicillins Allergy Verified 04/11/17 02:47 - Home Medications Home Medications: Ambulatory Orders RX: Pantoprazole Sodium [Protonix -] 40 mg PO BID #60 tablet.ec 07/26/15 RX: Alendronate Na [Fosamax (Weekly)] 70 mg PO WEEKLY 08/22/16 RX: Oxycodone HCl/Acetaminophen [Percocet 5-325 mg Tablet] 1 - 2 tab PO Q4H RX: Magnesium Hydrox 2400MG/30Ml [Milk of Magnesia -] 30 ml PO Q8H PRN 01/11/17 RX: Docusate Sodium [Colace -] 100 mg PO BID #60 capsule 01/16/17 RX: Ondansetron HCl [Zofran] 8 mg PO Q8H PRN #14 tablet 01/16/17 RX: Sennosides [Senna -] 2 tab PO DAILY #30 tablet 01/16/17 RX: Sodium Phosphate/Na Biphos [Fleet Adult Rectal Enema -] 133 ml RC WEEKLY PRN #4 enema 01/16/17 RX: Amlodipine Besylate [Norvasc -] 5 mg PO DAILY #30 tablet 03/26/17 RX: Carbidopa/Levodopa *Cr* 25/100 [Sinemet *Cr* 25/100 -] 1 combo PO TID@0700, 1200,1700 #30 tab 03/26/17 RX: Pramipexole Dihydrochloride [Mirapex -] 0.25 mg PO HS #30 tablet 03/26/17 RX: Pramipexole Dihydrochloride [Mirapex -] 0.25 mg PO TID@0700,1200,1700 #90 tablet 03/26/17 Family Disease History - Family Disease History Family Disease History: CA: Father (lung ), Mother (gall bladder ), Other: Sister (alive: healthy) Review of Systems - Review of Systems Constitutional: reports: No Symptoms Eyes: reports: No Symptoms HENT: reports: No Symptoms Neck: reports: No Symptoms Cardiovascular: reports: No Symptoms Respiratory: reports: No Symptoms Gastrointestinal: reports: No Symptoms Genitourinary: reports: No Symptoms Musculoskeletal: reports: Back Pain, Other Integumentary: reports: No Symptoms Neurological: reports: No Symptoms Endocrine: reports: No Symptoms Hematology/Lymphatic: reports: No Symptoms Psychiatric: reports: No Symptoms Physical Exam Vital Signs: Vital Signs Temperature 98.7 F 04/13/17 09:07 Pulse Rate 98 H 04/13/17 09:07 Respiratory Rate 20 04/13/17 09:07 Blood Pressure 131/93 04/13/17 09:07 O2 Sat by Pulse Oximetry (%) 97 04/13/17 09:00 Constitutional: Yes: Calm, Moderate Distress Eyes: Yes: Conjunctiva Clear HENT: Yes: Atraumatic, Normocephalic Cardiovascular: Yes: Regular Rate and Rhythm Respiratory: Yes: Regular, CTA Bilaterally Gastrointestinal: Yes: Normal Bowel Sounds, Soft Musculoskeletal: Yes: Other Extremities: Yes: Other Wound/Incision: Yes: Dressing Dry and Intact Neurological: Yes: Alert, Oriented Psychiatric: Yes: Alert, Oriented Labs: CBC, BMP 04/13/17 06:00 04/13/17 06:00 Imaging - Results Chest X-ray: Report Reviewed, Image Reviewed Cat Scan: Report Reviewed, Image Reviewed Assessment/Plan Problem List - Problems (1) Chronic obstructive pulmonary disease (COPD) Code(s): J44.9 - CHRONIC OBSTRUCTIVE PULMONARY DISEASE, UNSPECIFIED (2) Lower extremity pain Code(s): M79.606 - PAIN IN LEG, UNSPECIFIED Qualifiers: Laterality: bilateral Qualified Code(s): M79.604 - Pain in right leg (3) Carotid stenosis Code(s): I65.29 - OCCLUSION AND STENOSIS OF UNSPECIFIED CAROTID ARTERY (4) HTN (hypertension) Code(s): I10 - ESSENTIAL (PRIMARY) HYPERTENSION Qualifiers: Hypertension type: essential hypertension Qualified Code(s): I10 - Essential (primary) hypertension (5) Afib Code(s): I48.91 - UNSPECIFIED ATRIAL FIBRILLATION (6) CKD (chronic kidney disease) stage 3, GFR 30-59 ml/min Code(s): N18.3 - CHRONIC KIDNEY DISEASE, STAGE 3 (MODERATE) (7) BPH (benign prostatic hyperplasia) Code(s): N40.0 - BENIGN PROSTATIC HYPERPLASIA WITHOUT LOWER URINRY TRACT SYMP (8) Back pain Code(s): M54.9 - DORSALGIA, UNSPECIFIED Qualifiers: Back pain location: low back pain Chronicity: chronic Back pain laterality: bilateral Sciatica presence: unspecified whether sciatica present Qualified Code(s): M54.5 - Low back pain 9 uti plan continue close monitoring patient to be kept on vanco rest as per icu neurosurgery pain control cc time 45 min
[2017-04-13] MEDS ORDERED: VANCOMYCIN 1,000 MG VIAL (RESTRICTED TO ID ONLY) ONE (17:27)
--- NOTE | 2017-04-13 18:54 | SURG ---
Surgery Him Assistant Note Him Assistant: Omar Padron PA-C Date of Service: 04/13/17 Diagnosis: Lumbar degenerative scoliosis Procedure: T12-S2 laminectomy/fusion/instrumentation/decompression I was present for the entirety of the operative procedure. For further detail, please refer to operative report. Visit type - Case Type Case Type: ED Admission - New patient This patient is new to me today: Yes Date on this admission: 04/13/17
[2017-04-13] MEDS ORDERED: ONDANSETRON 4 MG/2 ML VIAL ONE (19:15)
[2017-04-13] MEDS ORDERED: ALBUTEROL SO4 2.5/IPRATROPIUM 0.5 INH SOL 3 ML VIAL.NEB. NEB PRN (19:45)
[2017-04-13] MEDS ORDERED: ACETAMINOPHEN 325 MG TABLET (FP) PO PRN ×2 (19:45)
[2017-04-13] MEDS ORDERED: oxyCODONE HCL 5 MG TABLET PO PRN (19:45)
[2017-04-13 19:58] LABS: MCH 33.7 pg (25.7-33.7); MCHC 34.1 g/dl (32.0-35.9); MEAN CELL VOLUME 98.9 fl (80-96); PLATELET COUNT 179 K/MM3 (134-434); RDW 15.7 % (11.9-15.9)
[2017-04-13 20:26] LABS: ANION GAP 15 (8-16); CO2 14 mmol/L (21-32); CPK 316 IU/L (39-308); CREATININE 1.9 mg/dL (0.7-1.3); GLUCOSE,RANDOM 201 mg/dL (74-106)
[2017-04-13 20:27] LABS: TROPONIN I < 0.02 ng/ml (0.00-0.05)
[2017-04-13 20:28] LABS: CALCIUM 6.8 mg/dL (8.5-10.1)
[2017-04-13] MEDS ORDERED: CALCIUM GLUCONATE 10% - 1,000 MG/10 ML VIAL ONE (20:57)
[2017-04-13 21:11] LABS: PLATELET COMMENT2 NO CLOTTING DETECTED; PLATELET ESTIMATE ADEQUATE (NORMAL); TOTAL CELLS COUNTED 100
[2017-04-13] MEDS: LACTATED RINGERS SOLUTION 1,000 ML IV SCH (22:15)
[2017-04-13] MEDS ORDERED: ONDANSETRON 4 MG/2 ML VIAL IVPUSH PRN (22:19)
[2017-04-13] MEDS ORDERED: HYDROmorphone *PCA* 10MG/50ML DISP.SYRIN PCA SCH (22:30)
[2017-04-13] MEDS ORDERED: diazePAM 2 MG TABLET PO ONE (23:05)
--- NOTE | 2017-04-14 00:07 | CONSULT ---
Consult Consult Specialty:: Pulm/Critical Care Reason for Consultation:: Post-op management - History of Present Illness History of Present Illness: Mr. Hernandez is a 71 y.o. man with HTN, HLD, pAfib, pulmonary HTN, COPD, depression /anxiety, CKD stage 3, pakinsons disease and chronic back and leg pain. He presented to the ED several days ago with c/o worsening back and leg pain after being discharged from the hospital in mid-March. He reported his pain has gotten worse and has not been alleviated by surgical intervention (laminectomy x2). He reports being unable to appropriately toilet 2/2 pain and physical immobility and has declined inpt rehab for physical therapy in the past. Today he was admitted to the ICU for post-op care after a laminectomy. 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 stress test in 01/14 - normal (pt reports recent one ,about 14 montsh ago,at [facility] -. normal)) Cardio/Vascular: Yes: HTN, Hyperlipdemia, Other (atypical chest pain in the past with neg stress test. Hx of WCT in 01/16 -. thought to be SVT at pt has underlying LBBB) Pulmonary: Yes: COPD Gastrointestinal: Yes: Constipation, Hiatal Hernia, Irritable Bowel Disease Renal/: Yes: Renal Inusuff, BPH, Renal Calculi (Patient says that he has kidney stone, ? 6 cm in one kidney) Infectious Disease: Yes: Other (?hx "shingles") Psych: Yes: Anxiety, Depression Musculoskeletal: Yes: Chronic low back pain, Osteoarthritis, Other (Lower extremity ulcerations) - Past Surgical History Past Surgical History: Yes: Hernia Repair, Laminectomy (X 2 -> "failed" per patient) - Alcohol/Substance Use Hx Alcohol Use: No History of Substance Use: reports: None - Smoking History Smoking history: Unknown if ever smoked Have you smoked in the past 12 months: No Aproximately how many cigarettes per day: 0 If you are a former smoker, when did you quit?: over 25 years ago - Social History Usual Living Arrangement: With Significant Other (Lives with Rachel, partner of several years but is unmarried) Occupation: retired after 22 years in [place] [employer] History of Recent Travel: No Home Medications - Allergies Allergies/Adverse Reactions: Allergies Allergy/AdvReac Type Severity Reaction Status Date / Time pregabalin [From Lyrica] Allergy Mild Verified 04/11/17 02:47 pravastatin sodium Allergy Unknown Verified 04/11/17 02:47 [From Pravachol] lactose Allergy Nausea Verified 04/11/17 02:47 morphine Allergy Verified 04/11/17 02:47 peanut Allergy Verified 04/11/17 02:47 Penicillins Allergy Verified 04/11/17 02:47 - Home Medications Home Medications: Ambulatory Orders Pantoprazole Sodium [Protonix -] 40 mg PO BID #60 tablet.ec 07/26/15 Alendronate Na [Fosamax (Weekly)] 70 mg PO WEEKLY 08/22/16 Oxycodone HCl/Acetaminophen [Percocet 5-325 mg Tablet] 1 - 2 tab PO Q4H Magnesium Hydrox 2400MG/30Ml [Milk of Magnesia -] 30 ml PO Q8H PRN 01/11/17 Docusate Sodium [Colace -] 100 mg PO BID #60 capsule 01/16/17 Ondansetron HCl [Zofran] 8 mg PO Q8H PRN #14 tablet 01/16/17 Sennosides [Senna -] 2 tab PO DAILY #30 tablet 01/16/17 Sodium Phosphate/Na Biphos [Fleet Adult Rectal Enema -] 133 ml RC WEEKLY PRN #4 enema 01/16/17 Amlodipine Besylate [Norvasc -] 5 mg PO DAILY #30 tablet 03/26/17 Carbidopa/Levodopa *Cr* 25/100 [Sinemet *Cr* 25/100 -] 1 combo PO TID@0700,1200, 1700 #30 tab 03/26/17 Pramipexole Dihydrochloride [Mirapex -] 0.25 mg PO HS #30 tablet 03/26/17 Pramipexole Dihydrochloride [Mirapex -] 0.25 mg PO TID@0700,1200,1700 #90 tablet 03/26/17 Family Disease History - Family Disease History Family Disease History: CA: Father (lung ), Mother (gall bladder ), Other: Sister (alive: healthy) Review of Systems - Review of Systems Constitutional: reports: Lethargy, Weakness Eyes: reports: No Symptoms HENT: reports: Toothache (difficulty chewing 2/2 missing teeth) Neck: reports: No Symptoms Cardiovascular: reports: No Symptoms Respiratory: reports: Cough Gastrointestinal: reports: No Symptoms Genitourinary: reports: Testicular Swelling Musculoskeletal: reports: Back Pain, Muscle Pain, Muscle Weakness Integumentary: reports: No Symptoms Neurological: reports: No Symptoms Endocrine: reports: No Symptoms Hematology/Lymphatic: reports: No Symptoms Psychiatric: reports: Anxiety, Depression Pain Intensity: 6 Physical Exam Vital Signs: Vital Signs Temperature 98.9 F 04/13/17 21:15 Pulse Rate 108 H 04/13/17 22:48 Respiratory Rate 22 04/13/17 22:48 Blood Pressure 121/69 04/13/17 22:48 O2 Sat by Pulse Oximetry (%) 100 04/13/17 21:00 Constitutional: Yes: Well Nourished, Anxious Eyes: Yes: WNL HENT: Yes: WNL, Normocephalic (poor oral hygiene) Neck: Yes: WNL Cardiovascular: Yes: Regular Rate and Rhythm, Tachycardia Respiratory: Yes: WNL, Diminished Gastrointestinal: Yes: Normal Bowel Sounds, Soft, Abdomen, Obese ...Rectal Exam: Yes: Deferred Renal/: Yes: Medrano Present Musculoskeletal: Yes: Back Pain, Joint Stiffness, Muscle Pain Extremities: Yes: WNL Peripheral Pulses WNL: Yes Wound/Incision: Yes: Clean/Dry, Steri Strips (CRUZ drain with bloody drainage) Neurological: Yes: Alert, Oriented ...Motor Strength: WNL Psychiatric: Yes: Agitated Labs: CBC, BMP 04/13/17 19:25 04/13/17 19:25 Imaging - Results Chest X-ray: Image Reviewed Problem List - Problems (1) Back pain Code(s): M54.9 - DORSALGIA, UNSPECIFIED Qualifiers: Back pain location: low back pain Chronicity: chronic Back pain laterality: bilateral Sciatica presence: unspecified whether sciatica present Qualified Code(s): M54.5 - Low back pain Assessment/Plan Mr. Hernandez is a 71 y.o man with history of HTN, HLD, pAFib, pHTN, COPD, depression/anxiety, parkinson's disease and long standing back and leg pain refractory to surgical and medical management admitted to ICU post-operatively after laminectomy today. 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
[2017-04-14 05:54] LABS: BASOPHIL 0.1 % (0-2.0); MCH 33.8 pg (25.7-33.7); MCHC 34.7 g/dl (32.0-35.9); MEAN CELL VOLUME 97.4 fl (80-96); NEUTROPHILS 80.4 % (42.8-82.8); PLATELET COUNT 133 K/MM3 (134-434); RDW 16.2 % (11.9-15.9); WHITE BLOOD COUNT 13.3 K/mm3 (4.0-10.0)
[2017-04-14] MEDS: HEPARIN NA (PORCINE) 5,000 UNITS/ML 1ML VIAL SQ SCH ×3 (06:04→21:29)
[2017-04-14] MEDS: PRAMIPEXOLE DIHYDROCHLORIDE 0.5 MG TABLET PO SCH ×4 (06:17→21:28)
[2017-04-14 06:49] LABS: ALBUMIN 3.1 g/dl (3.4-5.0); ALK PHOS 32 U/L (45-117); ANION GAP 11 (8-16); BILIRUBIN,TOTAL 0.8 mg/dL (0.2-1.0); CALCIUM 7.6 mg/dL (8.5-10.1); CO2 22 mmol/L (21-32); CREATININE 1.4 mg/dL (0.7-1.3); GLUCOSE,RANDOM 112 mg/dL (74-106); MAGNESIUM 1.7 mg/dL (1.8-2.4); SGOT/AST 22 U/L (15-37); SGPT/ALT 23 U/L (12-78); TOT PROT 4.8 g/dl (6.4-8.2)
--- NOTE | 2017-04-14 07:50 | PN ---
Physical Exam: SUBJECTIVE: Patient seen and examined. Still complains of 8/10 pain in lower back and legs b/l. Decreased mobility on lower left limb. OBJECTIVE: Vital Signs Period Temp Pulse Resp BP Sys/Suazo Pulse Ox Last 24 Hr 97 F-99.6 F 98-120 13-22 105-153/65-93 97-100 GENERAL: The patient is awake, alert, and fully oriented, still in 8/10 pain and complaining of deecreased motion on LLL. Unclear if because of pain or mechanically. HEAD: Normal with no signs of trauma. EYES: PERRL, extraocular movements intact, sclera anicteric, conjunctiva clear. No ptosis. ENT: dry oropharynx LUNGS: CTA HEART: tachycardic ABDOMEN: Soft, nontender, nondistended, normoactive bowel sounds, no guarding, no rebound, no hepatosplenomegaly, no masses. EXTREMITIES: stiff, decrease in L leg mobility, chronic decreased sensation on left foot Laboratory Results - last 24 hr 04/13/17 04/13/17 04/13/17 06:00 06:00 06:00 WBC 11.4 H RBC 4.08 Hgb 13.8 Hct 41.1 MCV 100.8 H MCH 33.9 H MCHC 33.6 RDW 14.0 Plt Count 195 MPV 8.6 Total Counted Neutrophils % Neutrophils % (Manual) Band Neuts % (Manual) Lymphocytes % Lymphocytes % (Manual) Monocytes % Monocytes % (Manual) Eosinophils % Basophils % Platelet Estimate Platelet Comment INR 1.00 PTT (Actin FS) 34.6 H Sodium 140 Potassium 4.3 Chloride 107 Carbon Dioxide 24 Anion Gap 9 BUN 30 H Creatinine 1.4 H Creat Clearance w eGFR 49.68 Random Glucose 91 D Calcium 8.6 Magnesium Total Bilirubin 0.5 D AST 12 L ALT 25 D Alkaline Phosphatase 54 Creatine Kinase Creatine Kinase Index CK-MB (CK-2) Troponin I Total Protein 6.3 L Albumin 3.9 Blood Type Antibody Screen Crossmatch IS Only 04/13/17 04/13/17 04/13/17 13:13 19:25 19:25 WBC 21.0 H D RBC 3.17 L D Hgb 10.7 L D Hct 31.3 L D MCV 98.9 H MCH 33.7 MCHC 34.1 RDW 15.7 D Plt Count 179 MPV 9.0 Total Counted 100 Neutrophils % Neutrophils % (Manual) 84 H Band Neuts % (Manual) 10 Lymphocytes % Lymphocytes % (Manual) 2 L Monocytes % Monocytes % (Manual) 3 L Eosinophils % Basophils % Platelet Estimate Adequate Platelet Comment No clotting detected INR PTT (Actin FS) Sodium 140 Potassium 4.9 Chloride 111 H Carbon Dioxide 14 L D Anion Gap 15 BUN 29 H Creatinine 1.9 H D Creat Clearance w eGFR Random Glucose 201 H D Calcium 6.8 L* D Magnesium Total Bilirubin AST ALT Alkaline Phosphatase Creatine Kinase 316 H Creatine Kinase Index 0.5 CK-MB (CK-2) 1.789 Troponin I < 0.02 Total Protein Albumin Blood Type O NEGATIVE Antibody Screen Negative Crossmatch IS Only See Detail 04/14/17 04/14/17 05:00 05:00 WBC 13.3 H D RBC 2.61 L Hgb 8.8 L D Hct 25.4 L D MCV 97.4 H MCH 33.8 H MCHC 34.7 RDW 16.2 H Plt Count 133 L D MPV 9.0 Total Counted Neutrophils % 80.4 Neutrophils % (Manual) Band Neuts % (Manual) Lymphocytes % 10.2 D Lymphocytes % (Manual) Monocytes % 9.3 D Monocytes % (Manual) Eosinophils % 0.0 D Basophils % 0.1 Platelet Estimate Platelet Comment INR PTT (Actin FS) Sodium 143 Potassium 4.6 Chloride 110 H Carbon Dioxide 22 D Anion Gap 11 BUN 28 H Creatinine 1.4 H D Creat Clearance w eGFR 49.68 Random Glucose 112 H D Calcium 7.6 L Magnesium 1.7 L D Total Bilirubin 0.8 D AST 22 D ALT 23 Alkaline Phosphatase 32 L D Creatine Kinase Creatine Kinase Index CK-MB (CK-2) Troponin I Total Protein 4.8 L D Albumin 3.1 L D Blood Type Antibody Screen Crossmatch IS Only Active Medications Generic Name Dose Route Start Last Admin Trade Name Freq PRN Reason Stop Dose Admin Acetaminophen 325 mg 04/13/17 19:45 Tylenol - PO 04/14/17 08:41 Q4H PRN PAIN Acetaminophen 650 mg 04/13/17 19:45 Tylenol - PO 04/14/17 08:42 Q4H PRN PAIN Albuterol/Ipratropium 1 amp 04/13/17 19:45 Duoneb - NEB Q4H PRN SHORTNESS OF BREATH Amlodipine Besylate 5 mg 04/14/17 10:00 Norvasc - PO DAILY SIENA Carbidopa/Levodopa 1 combo 04/14/17 07:00 04/14/17 06:17 Sinemet *Cr* 50/200 - PO 1 combo 0700,1200,1700 SIENA Administration Diphenhydramine HCl 12.5 mg 04/13/17 22:19 Benadryl Injection - IVPUSH 04/14/17 22:18 ONCE PRN FOR ITCHING Docusate Sodium 100 mg 04/13/17 22:00 04/13/17 22:15 Colace - PO Not Given BID SIENA Fentanyl 50 mcg 04/13/17 19:06 04/13/17 21:15 Sublimaze Injection - IVPUSH 04/16/17 19:07 50 mcg [id number] PRN Administration PAIN Heparin Sodium (Porcine) 5,000 unit 04/13/17 22:00 04/14/17 06:04 Heparin - SQ 5,000 unit TID SIENA Administration Hydromorphone HCl 10 mg 04/13/17 22:30 04/13/17 22:48 Dilaudid Pyroglazer - 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 04/20/17 22:19 10 mg 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 SIENA Administration Protocol Lactated Ringer's 1,000 mls @ 125 mls/hr 04/13/17 19:15 04/13/17 22:15 Lactated Ringers Solution IV 125 mls/hr ASDIR SIENA Administration Magnesium Hydroxide 30 ml 04/13/17 19:45 Milk Of Magnesia - PO Q8H PRN CONSTIPATION Ondansetron HCl 4 mg 04/13/17 22:19 04/13/17 19:15 Zofran Injection IVPUSH 04/14/17 10:20 4 mg Q4H PRN Administration NAUSEA AND/OR VOMITING Oxycodone HCl 5 mg 04/13/17 19:45 Roxicodone - PO Q4H PRN PAIN Oxycodone HCl 10 mg 04/13/17 19:45 Roxicodone - PO Q4H PRN PAIN Pantoprazole Sodium 40 mg 04/13/17 22:00 04/13/17 22:15 Protonix - PO Not Given BID SIENA Pramipexole Dihydrochloride 0.5 mg 04/13/17 22:00 04/13/17 22:15 Mirapex - PO Not Given HS [facility] Pramipexole Dihydrochloride 0.5 mg 04/14/17 07:00 04/14/17 06:17 Mirapex - PO 0.5 mg 0700,1200,1700 [facility] Administration Senna 2 tab 04/14/17 10:00 Senna - PO DAILY [facility] ASSESSMENT/PLAN: Mr. Hernandez is a 71 y.o man with history of HTN, HLD, pAFib, pHTN, COPD, depression/anxiety, parkinson's disease and long standing back and leg pain refractory to surgical and medical management admitted to ICU post-operatively after laminectomy today. 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
--- NOTE | 2017-04-14 08:32 | PN ---
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
[2017-04-14] MEDS ORDERED: GABAPENTIN 300 MG CAPSULE (FP) PO SCH (10:00)
[2017-04-14] MEDS: DOCUSATE SODIUM 100 MG CAPSULE (FP) PO SCH ×3 (10:37→21:31)
[2017-04-14] MEDS: oxyCODONE HCL 5 MG TABLET PO PRN ×2 (10:38→14:35)
[2017-04-14] MEDS: SENNOSIDES 8.6MG TABLET (FP) PO SCH (10:38)
[2017-04-14] MEDS: PANTOPRAZOLE 40 MG TABLET (FP) PO SCH ×2 (10:38→21:29)
[2017-04-14] MEDS: amLODIPine BESYLATE 5 MG TABLET (FP) PO SCH (10:38)
--- NOTE | 2017-04-14 11:00 | PN ---
Physical Exam: SUBJECTIVE: Patient seen and examined at bedside in ICU. Has 8/10 back pain that radiates down both legs. Denies testicular pain. Little relief from BEER MERCHANT. OBJECTIVE: Vital Signs Period Temp Pulse Resp BP Sys/Suazo Pulse Ox Last 24 Hr 97 F-99.6 F 100-120 13-22 105-153/65-90 92-100 GENERAL: The patient is awake, alert, and fully oriented, in mild distress secondary to pain. Using BEER MERCHANT. HEAD: Normal with no signs of trauma. EYES: PERRL, extraocular movements intact, sclera anicteric, conjunctiva clear. No ptosis. LUNGS: Anterior breath sounds equal, clear to auscultation bilaterally, no wheezes, no crackles, no accessory muscle use. HEART: Regular rate and rhythm, S1, S2 without murmur, rub or gallop. ABDOMEN: Soft, nontender, nondistended, normoactive bowel sounds, no guarding, no rebound MSK: surgical wound not visualized EXTREMITIES: 2+ pulses, warm, well-perfused, no edema. RLE: moves toes, 3/5 soft sensory, 5/5 sharp sensory from toes to knees LLE: cannot move toes, 0/5 soft sensory and 0/5 sharp sensory from toes to knees NEUROLOGICAL: Cranial nerves II through XII grossly intact. Normal speech, gait not observed. Laboratory Results - last 24 hr 04/13/17 04/13/17 04/13/17 13:13 19:25 19:25 WBC 21.0 H D RBC 3.17 L D Hgb 10.7 L D Hct 31.3 L D MCV 98.9 H MCH 33.7 MCHC 34.1 RDW 15.7 D Plt Count 179 MPV 9.0 Total Counted 100 Neutrophils % Neutrophils % (Manual) 84 H Band Neuts % (Manual) 10 Lymphocytes % Lymphocytes % (Manual) 2 L Monocytes % Monocytes % (Manual) 3 L Eosinophils % Basophils % Platelet Estimate Adequate Platelet Comment No clotting detected Sodium 140 Potassium 4.9 Chloride 111 H Carbon Dioxide 14 L D Anion Gap 15 BUN 29 H Creatinine 1.9 H D Creat Clearance w eGFR Random Glucose 201 H D Calcium 6.8 L* D Magnesium Total Bilirubin AST ALT Alkaline Phosphatase Creatine Kinase 316 H Creatine Kinase Index 0.5 CK-MB (CK-2) 1.789 Troponin I < 0.02 Total Protein Albumin Blood Type O NEGATIVE Antibody Screen Negative Crossmatch IS Only See Detail 04/14/17 04/14/17 05:00 05:00 WBC 13.3 H D RBC 2.61 L Hgb 8.8 L D Hct 25.4 L D MCV 97.4 H MCH 33.8 H MCHC 34.7 RDW 16.2 H Plt Count 133 L D MPV 9.0 Total Counted Neutrophils % 80.4 Neutrophils % (Manual) Band Neuts % (Manual) Lymphocytes % 10.2 D Lymphocytes % (Manual) Monocytes % 9.3 D Monocytes % (Manual) Eosinophils % 0.0 D Basophils % 0.1 Platelet Estimate Platelet Comment Sodium 143 Potassium 4.6 Chloride 110 H Carbon Dioxide 22 D Anion Gap 11 BUN 28 H Creatinine 1.4 H D Creat Clearance w eGFR 49.68 Random Glucose 112 H D Calcium 7.6 L Magnesium 1.7 L D Total Bilirubin 0.8 D AST 22 D ALT 23 Alkaline Phosphatase 32 L D Creatine Kinase Creatine Kinase Index CK-MB (CK-2) Troponin I Total Protein 4.8 L D Albumin 3.1 L D Blood Type Antibody Screen Crossmatch IS Only Active Medications Generic Name Dose Route Start Last Admin Trade Name Freq PRN Reason Stop Dose Admin Albuterol/Ipratropium 1 amp 04/13/17 19:45 Duoneb - NEB Q4H PRN SHORTNESS OF BREATH Amlodipine Besylate 5 mg 04/14/17 10:00 04/14/17 10:38 Norvasc - PO 5 mg DAILY SIENA Administration Carbidopa/Levodopa 1 combo 04/14/17 07:00 04/14/17 06:17 Sinemet *Cr* 50/200 - PO 1 combo 0700,1200,1700 SIENA Administration Diphenhydramine HCl 12.5 mg 04/13/17 22:19 Benadryl Injection - IVPUSH 04/14/17 22:18 ONCE PRN FOR ITCHING Docusate Sodium 100 mg 04/13/17 22:00 04/14/17 10:43 Colace - PO Not Given BID SIENA Fentanyl 50 mcg 04/13/17 19:06 04/13/17 21:15 Sublimaze Injection - IVPUSH 04/16/17 19:07 50 mcg [id number] PRN Administration PAIN Heparin Sodium (Porcine) 5,000 unit 04/13/17 22:00 04/14/17 06:04 Heparin - SQ 5,000 unit TID SIENA Administration Hydromorphone HCl 10 mg 04/13/17 22:30 04/13/17 22:48 Dilaudid Weight Count Operator - BEER MERCHANT 04/20/17 22:19 10 mg BEER MERCHANT SIENA Administration Protocol Lactated Ringer's 1,000 mls @ 125 mls/hr 04/13/17 19:15 04/13/17 22:15 Lactated Ringers Solution IV 125 mls/hr ASDIR SIENA Administration Magnesium Hydroxide 30 ml 04/13/17 19:45 Milk Of Magnesia - PO Q8H PRN CONSTIPATION Oxycodone HCl 5 mg 04/13/17 19:45 Roxicodone - PO Q4H PRN PAIN Oxycodone HCl 10 mg 04/13/17 19:45 04/14/17 10:38 Roxicodone - PO 10 mg Q4H PRN Administration PAIN Pantoprazole Sodium 40 mg 04/13/17 22:00 04/14/17 10:38 Protonix - PO 40 mg BID SIENA Administration Pramipexole Dihydrochloride 0.5 mg 04/13/17 22:00 04/13/17 22:15 Mirapex - PO Not Given HS SIENA Pramipexole Dihydrochloride 0.5 mg 04/14/17 07:00 04/14/17 06:17 Mirapex - PO 0.5 mg 0700,1200,1700 SIENA Administration Senna 2 tab 04/14/17 10:00 04/14/17 10:38 Senna - PO 2 tab DAILY SIENA Administration ASSESSMENT/PLAN: 71 year-old male with PMH significant for HTN, HLD, proxysmal afib, pulmonary HTN, COPD, CKD stage 3, depression, anxiety, and spinal degenerative joint disease with chronic back and b/l leg pain. Multilevel degenerative and facet joint disease s/p T12-S2 laminectomies/fusion/ instrumentation/decompression on 04/13/17 --POD #1 --pain control is an issue; tachycardia likely secondary to pain continue dilaudid BEER MERCHANT, fentanyl, oxycodone --sensory and motor deficits in LLE, discussed with DANITA Calvillo Parkinson's Disease --continue carbidopa/levodopa, pramipexole Hypertension --recently taken off cardizem and lisinopril due to orthostatic hypotension and syncope --continue amlodipine Hyperlipidemia --not on meds Paroxysmal atrial fibrillation --off cardizem due to recent syncopal episodes --not on a/c, patient choice COPD --duonebs PRN Acute on chronic renal insufficiency --Cr peaked 1.9, now 1.4 close to baseline Depression/anxiety Fluids: LR @ 125mL/hr Electrolytes: replete as indicated Nutrition: low sodium DVT prophylaxis: subq heparin PT evaluation Daily PT Dispo: continues to require ICU level care. Full code. Visit type - Emergency Visit Emergency Visit: Yes ED Registration Date: 04/11/17 Care time: The patient presented to the Emergency Department on the above date and was hospitalized for further evaluation of their emergent condition. - New Patient This patient is new to me today: Yes Date on this admission: 04/14/17 - Critical Care Critical Care patient: Yes Total Critical Care Time (in minutes): 35 Critical Care Statement: The care of this patient involved high complexity decision making to prevent further life threatening deterioration of the patient 's condition and/or to evaluate & treat vital organ system(s) failure or risk of failure.
--- NOTE | 2017-04-14 12:50 | PN ---
Teaching Attending Note Name of Resident: Ming Stark ATTENDING PHYSICIAN STATEMENT I saw and evaluated the patient. I reviewed the resident's note and discussed the case with the resident. I agree with the resident's findings and plan as documented. SUBJECTIVE: Patient seen and examined in the ICU. Awake and alert. (+) diffuse body pain. (+) LBP. No CP or SOB. Remains on DEMO COORDINATOR. Intake & Output 04/11/17 04/12/17 04/13/17 04/14/17 23:59 23:59 23:59 23:59 Intake Total 281 871 4239 1060 Output Total 400 1200 875 Balance 081 136 6718 185 Weight 185 lb 3.2 oz 143 lb 12.8 oz 143 lb Last Vital Signs Temp Pulse Resp BP Pulse Ox 99.5 F 108 H 20 114/79 92 L 04/14/17 10:00 04/14/17 12:00 04/14/17 12:00 04/14/17 12:00 04/14/17 09:47 Active Medications Albuterol/Ipratropium (Duoneb -) 1 amp NEB Q4H PRN PRN Reason: SHORTNESS OF BREATH Amlodipine Besylate (Norvasc -) 5 mg PO DAILY [facility] Last Admin: 04/14/17 10:38 Dose: 5 mg Carbidopa/Levodopa (Sinemet *Cr* 50/200 -) 1 combo PO 0700,1200,1700 [facility] Last Admin: 04/14/17 06:17 Dose: 1 combo Diphenhydramine HCl (Benadryl Injection -) 12.5 mg IVPUSH ONCE PRN PRN Reason: FOR ITCHING Stop: 04/14/17 22:18 Docusate Sodium (Colace -) 100 mg PO BID [facility] Last Admin: 04/14/17 10:43 Dose: Not Given Fentanyl (Sublimaze Injection -) 50 mcg IVPUSH [id number] PRN PRN Reason: PAIN Stop: 04/16/17 19:07 Last Admin: 04/13/17 21:15 Dose: 50 mcg Gabapentin (Neurontin -) 100 mg PO BID [facility] Gabapentin (Neurontin -) 200 mg PO HS [facility] Heparin Sodium (Porcine) (Heparin -) 5,000 unit SQ TID [facility] Last Admin: 04/14/17 06:04 Dose: 5,000 unit Hydromorphone HCl (Dilaudid Jacquard Loom Card Changer -) 10 mg DEMO COORDINATOR DEMO COORDINATOR [facility] PRN Reason: Protocol Stop: 04/20/17 22:19 Last Admin: 04/13/17 22:48 Dose: 10 mg Lactated Ringer's (Lactated Ringers Solution) 1,000 mls @ 125 mls/hr IV ASDIR [facility] Last Admin: 04/13/17 22:15 Dose: 125 mls/hr Magnesium Hydroxide (Milk Of Magnesia -) 30 ml PO Q8H PRN PRN Reason: CONSTIPATION Oxycodone HCl (Roxicodone -) 5 mg PO Q4H PRN PRN Reason: PAIN Oxycodone HCl (Roxicodone -) 10 mg PO Q4H PRN PRN Reason: PAIN Last Admin: 04/14/17 10:38 Dose: 10 mg Pantoprazole Sodium (Protonix -) 40 mg PO BID [facility] Last Admin: 04/14/17 10:38 Dose: 40 mg Pramipexole Dihydrochloride (Mirapex -) 0.5 mg PO HS [facility] Last Admin: 04/13/17 22:15 Dose: Not Given Pramipexole Dihydrochloride (Mirapex -) 0.5 mg PO 0700,1200,1700 [facility] Last Admin: 04/14/17 06:17 Dose: 0.5 mg Senna (Senna -) 2 tab PO DAILY [facility] Last Admin: 04/14/17 10:38 Dose: 2 tab Constitutional: Yes: Awake and alert. Mildly uncomfortable due to pain Eyes: Yes: WNL HENT: Yes: WNL Neck: Yes: WNL Cardiovascular: Yes: Regular Rate and Rhythm, S1, S2 Respiratory: Yes: CTA Bilaterally Gastrointestinal: Yes: Normal Bowel Sounds, Soft Extremities: Yes: WNL Edema: No Labs: Laboratory Results - last 24 hr 04/13/17 04/13/17 04/13/17 13:13 19:25 19:25 WBC 21.0 H D RBC 3.17 L D Hgb 10.7 L D Hct 31.3 L D MCV 98.9 H MCH 33.7 MCHC 34.1 RDW 15.7 D Plt Count 179 MPV 9.0 Total Counted 100 Neutrophils % Neutrophils % (Manual) 84 H Band Neuts % (Manual) 10 Lymphocytes % Lymphocytes % (Manual) 2 L Monocytes % Monocytes % (Manual) 3 L Eosinophils % Basophils % Platelet Estimate Adequate Platelet Comment No clotting detected Sodium 140 Potassium 4.9 Chloride 111 H Carbon Dioxide 14 L D Anion Gap 15 BUN 29 H Creatinine 1.9 H D Creat Clearance w eGFR Random Glucose 201 H D Calcium 6.8 L* D Magnesium Total Bilirubin AST ALT Alkaline Phosphatase Creatine Kinase 316 H Creatine Kinase Index 0.5 CK-MB (CK-2) 1.789 Troponin I < 0.02 Total Protein Albumin Blood Type O NEGATIVE Antibody Screen Negative Crossmatch IS Only See Detail 04/14/17 04/14/17 05:00 05:00 WBC 13.3 H D RBC 2.61 L Hgb 8.8 L D Hct 25.4 L D MCV 97.4 H MCH 33.8 H MCHC 34.7 RDW 16.2 H Plt Count 133 L D MPV 9.0 Total Counted Neutrophils % 80.4 Neutrophils % (Manual) Band Neuts % (Manual) Lymphocytes % 10.2 D Lymphocytes % (Manual) Monocytes % 9.3 D Monocytes % (Manual) Eosinophils % 0.0 D Basophils % 0.1 Platelet Estimate Platelet Comment Sodium 143 Potassium 4.6 Chloride 110 H Carbon Dioxide 22 D Anion Gap 11 BUN 28 H Creatinine 1.4 H D Creat Clearance w eGFR 49.68 Random Glucose 112 H D Calcium 7.6 L Magnesium 1.7 L D Total Bilirubin 0.8 D AST 22 D ALT 23 Alkaline Phosphatase 32 L D Creatine Kinase Creatine Kinase Index CK-MB (CK-2) Troponin I Total Protein 4.8 L D Albumin 3.1 L D Blood Type Antibody Screen Crossmatch IS Only Problem List - Problems (1) Chronic obstructive pulmonary disease (COPD) Code(s): J44.9 - CHRONIC OBSTRUCTIVE PULMONARY DISEASE, UNSPECIFIED (2) Lower extremity pain Code(s): M79.606 - PAIN IN LEG, UNSPECIFIED Qualifiers: Laterality: bilateral Qualified Code(s): M79.604 - Pain in right leg (3) Carotid stenosis Code(s): I65.29 - OCCLUSION AND STENOSIS OF UNSPECIFIED CAROTID ARTERY (4) HTN (hypertension) Code(s): I10 - ESSENTIAL (PRIMARY) HYPERTENSION Qualifiers: Hypertension type: essential hypertension Qualified Code(s): I10 - Essential (primary) hypertension (5) Afib Code(s): I48.91 - UNSPECIFIED ATRIAL FIBRILLATION (6) CKD (chronic kidney disease) stage 3, GFR 30-59 ml/min Code(s): N18.3 - CHRONIC KIDNEY DISEASE, STAGE 3 (MODERATE) (7) BPH (benign prostatic hyperplasia) Code(s): N40.0 - BENIGN PROSTATIC HYPERPLASIA WITHOUT LOWER URINRY TRACT SYMP (8) Back pain Code(s): M54.9 - DORSALGIA, UNSPECIFIED Qualifiers: Back pain location: low back pain Chronicity: chronic Back pain laterality: bilateral Sciatica presence: unspecified whether sciatica present Qualified Code(s): M54.5 - Low back pain Assessment/Plan Pulmonary HTN COPD Pain control Incentive Spirometry O2 as needed OOB to chair VTE prophylaxis Dr Yoo Critical care time spent in reviewing chart, evaluating patient and formulating plan - 35 minutes.
--- NOTE | 2017-04-14 12:58 | PN ---
Progress Note, Physician History of Present Illness: 71 year old man h/o HTN, HLD, AFib, LBBB, COPD, chronic back and leg pain on multiple medications, h/o recurrent syncope admitted with severe acute on chronic lower back and leg pain. Pt was seen by neurology and neurosurgery yesterday. Neurology felt surgery would not be helpful but neurosurgery felt that surgery could offer some relief of his pain and disability and thus he is planned for surgical intervention. Pt was seen and examined today in [facility]. No overnight events. no new complaints. He states that his back and leg pain was so severe that he was significantly disabled at home and it was not responsive to medications. He denies having any chest pain, sob, palpitations. No pnd, orthopnea, or LE edema. No recent recurrent syncope or near syncope. - Current Medication List Current Medications: Active Medications Albuterol/Ipratropium (Duoneb -) 1 amp NEB Q4H PRN PRN Reason: SHORTNESS OF BREATH Amlodipine Besylate (Norvasc -) 5 mg PO DAILY [facility] Last Admin: 04/14/17 10:38 Dose: 5 mg Carbidopa/Levodopa (Sinemet *Cr* 50/200 -) 1 combo PO 0700,1200,1700 [facility] Last Admin: 04/14/17 06:17 Dose: 1 combo Diphenhydramine HCl (Benadryl Injection -) 12.5 mg IVPUSH ONCE PRN PRN Reason: FOR ITCHING Stop: 04/14/17 22:18 Docusate Sodium (Colace -) 100 mg PO BID [facility] Last Admin: 04/14/17 10:43 Dose: Not Given Fentanyl (Sublimaze Injection -) 50 mcg IVPUSH [id number] PRN PRN Reason: PAIN Stop: 04/16/17 19:07 Last Admin: 04/13/17 21:15 Dose: 50 mcg Gabapentin (Neurontin -) 100 mg PO BID [facility] Gabapentin (Neurontin -) 200 mg PO [facility] Heparin Sodium (Porcine) (Heparin -) 5,000 unit SQ TID [facility] Last Admin: 04/14/17 06:04 Dose: 5,000 unit Hydromorphone HCl (Dilaudid Solo Truck Driver -) 10 mg FRONTEND ENGINEER FRONTEND ENGINEER [facility] PRN Reason: Protocol Stop: 04/20/17 22:19 Last Admin: 04/13/17 22:48 Dose: 10 mg Lactated Ringer's (Lactated Ringers Solution) 1,000 mls @ 125 mls/hr IV ASDIR [facility] Last Admin: 04/13/17 22:15 Dose: 125 mls/hr Magnesium Hydroxide (Milk Of Magnesia -) 30 ml PO Q8H PRN PRN Reason: CONSTIPATION Oxycodone HCl (Roxicodone -) 5 mg PO Q4H PRN PRN Reason: PAIN Oxycodone HCl (Roxicodone -) 10 mg PO Q4H PRN PRN Reason: PAIN Last Admin: 04/14/17 10:38 Dose: 10 mg Pantoprazole Sodium (Protonix -) 40 mg PO BID [facility] Last Admin: 04/14/17 10:38 Dose: 40 mg Pramipexole Dihydrochloride (Mirapex -) 0.5 mg PO HS [facility] Last Admin: 04/13/17 22:15 Dose: Not Given Pramipexole Dihydrochloride (Mirapex -) 0.5 mg PO 0700,1200,1700 [facility] Last Admin: 04/14/17 06:17 Dose: 0.5 mg Senna (Senna -) 2 tab PO DAILY [facility] Last Admin: 04/14/17 10:38 Dose: 2 tab - Objective Vital Signs: Vital Signs Temperature 99.5 F 04/14/17 10:00 Pulse Rate 108 H 04/14/17 12:00 Respiratory Rate 20 04/14/17 12:00 Blood Pressure 114/79 04/14/17 12:00 O2 Sat by Pulse Oximetry (%) 92 L 04/14/17 09:47 Eyes: Yes: WNL, Conjunctiva Clear, EOM Intact HENT: Yes: WNL, Atraumatic, Normocephalic Neck: Yes: WNL, Supple, Trachea Midline Cardiovascular: Yes: WNL, Regular Rate and Rhythm Respiratory: Yes: WNL, Regular, CTA Bilaterally Gastrointestinal: Yes: WNL, Normal Bowel Sounds Genitourinary: Yes: WNL Musculoskeletal: Yes: WNL Extremities: Yes: WNL Edema: No Integumentary: Yes: WNL Neurological: Yes: WNL, Alert, Oriented ...Motor Strength: WNL Psychiatric: Yes: WNL Labs: CBC, BMP 04/14/17 05:00 04/14/17 05:00 INR, PTT INR 1.00 (0.82-1.09) 04/13/17 06:00 Assessment/Plan 71 year old man h/o HTN, HLD, PAFib, LBBB, COPD, chronic back and leg pain on multiple medications, h/o recurrent syncope admitted with severe acute on chronic lower back and leg pain. Pot op day#1.S/P T12-S2 Laminectomy with instrumentation and fusion under GA tachycardia due to pain -pain control -HTN is adequately controlled -EKG shows LBBB which is chronic and known -pt reports no recent symptoms of chest pain or sob -pt reports recent nuclear stress test that showed no ischemia -last echo 11/2016 here showed mildly reduced LV systolic function, mild to mod valvular abnl (none signifcant pertaining to surgery) -pt was taken off of Cardizem and Lisinopril after recent admission, maintained on norvasc alone -would not initiate a bblocker at this time as there is insufficient time to titrate to appropriate dose -as per review of EMR pt has not been on ASA or Plavix or other AC -Neurology and neurosurgery to determine appropriate treatment plan. -recc routine perioperative monitoring Arrhythmia-as per EMR h/o Pafib also reported h/o SVT -unclear details -not on AC at home -currently NSR -monitor for now and will obtain further information from Dr. Garcia as to treatment plan HTN-adequately controlled for now, h/o syncope possible orthostatic hypotension -cont norvasc for now cc time 35 min
[2017-04-14] MEDS ORDERED: VANCOMYCIN 750 MG in DEXTROSE 5%-WATER - 250 ML IVPB ONE (14:42)
[2017-04-14] MEDS ORDERED: PT OWN MED DRAWER 7, Y5N ONE (16:17)
[2017-04-14] MEDS: GABAPENTIN 100 MG CAPSULE (FP) PO SCH (21:27)
[2017-04-14] MEDS: MAGNESIUM HYDROX 2400MG/30ML ORAL SUSPENSION 30 ML CUP PO PRN (21:27)
[2017-04-14] MEDS: diazePAM 2 MG TABLET PO PRN (21:28)
[2017-04-14] MEDS: ONDANSETRON 4 MG/2 ML VIAL IVPUSH PRN (21:28)
[2017-04-14] MEDS: LACTATED RINGERS SOLUTION 1,000 ML IV SCH (21:30)
--- NOTE | 2017-04-14 21:46 | EKG ---
Test Reason : Blood Pressure : / mmHG Vent. Rate : 119 BPM Atrial Rate : 119 BPM P-R Int : 154 ms QRS Dur : 120 ms QT Int : 360 ms P-R-T Axes : 010 -48 086 degrees QTc Int : 506 ms SINUS TACHYCARDIA LEFT AXIS DEVIATION POOR R WAVE PROGRESSION LEFT BUNDLE BRANCH BLOCK ABNORMAL ECG WHEN COMPARED WITH ECG OF 11-APR-2017 02:54, VENT. RATE HAS INCREASED Confirmed by MARIA T BATISTA, KESHAWN ([id number]) on 04/14/2017 9:46:07 PM Referred By: Confirmed By:KESHAWN LIVE MD
[2017-04-15] MEDS: HEPARIN NA (PORCINE) 5,000 UNITS/ML 1ML VIAL SQ SCH ×3 (05:35→22:30)
[2017-04-15] MEDS: diazePAM 2 MG TABLET PO PRN (05:35)
[2017-04-15] MEDS: GABAPENTIN 100 MG CAPSULE (FP) PO SCH ×3 (05:35→22:31)
[2017-04-15 06:22] LABS: BASOPHIL 0.1 % (0-2.0); MCH 34.1 pg (25.7-33.7); MCHC 35.1 g/dl (32.0-35.9); MEAN CELL VOLUME 97.4 fl (80-96); MEAN PLT VOLUME 9.1 fl (7.5-11.1); NEUTROPHILS 84.2 % (42.8-82.8); PLATELET COUNT 130 K/MM3 (134-434); RDW 15.5 % (11.9-15.9); WHITE BLOOD COUNT 13.2 K/mm3 (4.0-10.0)
[2017-04-15 06:37] LABS: ANION GAP 10 (8-16); CALCIUM 7.7 mg/dL (8.5-10.1); CO2 25 mmol/L (21-32); CREATININE 1.2 mg/dL (0.7-1.3); GLUCOSE,RANDOM 110 mg/dL (74-106); MAGNESIUM 2.2 mg/dL (1.8-2.4); PHOSPHOROUS 2.6 mg/dL (2.5-4.9)
[2017-04-15] MEDS: PRAMIPEXOLE DIHYDROCHLORIDE 0.5 MG TABLET PO SCH ×4 (07:01→22:31)
--- NOTE | 2017-04-15 07:36 | PN ---
Physical Exam: SUBJECTIVE: Patient seen and examined Patient's pain greatly resolved. Regained some mobility and strength and sensation to left leg OBJECTIVE: Vital Signs Period Temp Pulse Resp BP Sys/Suazo Pulse Ox Last 24 Hr 99.0 F-100.1 F 100-120 14-23 106-133/64-89 92-100 Gen: NAD at rest. Heart: tachycardic, regular rythm. no murmurs Lung: decreased breath sounds at the bases Abd: soft, nontender Neur: pain upon passive leg lifts above 20 degrees. Ext: no edema Laboratory Results - last 24 hr 04/15/17 04/15/17 04/15/17 05:00 05:00 05:00 WBC 13.2 H RBC 2.32 L Hgb 7.9 L D Hct 22.6 L MCV 97.4 H MCH 34.1 H MCHC 35.1 RDW 15.5 Plt Count 130 L MPV 9.1 Neutrophils % 84.2 H Lymphocytes % 7.2 L D Monocytes % 8.5 Eosinophils % 0.0 Basophils % 0.1 Sodium 142 Potassium 4.1 Chloride 107 Carbon Dioxide 25 Anion Gap 10 BUN 24 H Creatinine 1.2 Random Glucose 110 H Calcium 7.7 L Phosphorus 2.6 D Magnesium 2.2 D Random Vancomycin 5.446 Active Medications Generic Name Dose Route Start Last Admin Trade Name Freq PRN Reason Stop Dose Admin Albuterol/Ipratropium 1 amp 04/13/17 19:45 Duoneb - NEB Q4H PRN SHORTNESS OF BREATH Amlodipine Besylate 5 mg 04/14/17 10:00 04/14/17 10:38 Norvasc - PO 5 mg DAILY [facility]IENA Administration Carbidopa/Levodopa 1 combo 04/14/17 07:00 04/15/17 07:01 Sinemet *Cr* 50/200 - PO 1 combo 0700,1200,1700 [facility] Administration Diazepam 2 mg 04/14/17 21:12 04/15/17 05:35 Valium - PO 04/17/17 21:13 2 mg Q6H PRN Administration WITHDRAWAL(CONT SUBST) Docusate Sodium 100 mg 04/13/17 22:00 04/14/17 21:31 Colace - PO Not Given BID [facility] Gabapentin 100 mg 04/15/17 06:00 04/15/17 05:35 Neurontin - PO 100 mg 0600,1400 SIE[facility] Administration Gabapentin 200 mg 04/14/17 22:00 04/14/17 21:27 Neurontin - PO 200 mg HS [facility]IENA Administration Heparin Sodium (Porcine) 5,000 unit 04/13/17 22:00 04/15/17 05:35 Heparin - SQ 5,000 unit TID [facility]IENA Administration Hydromorphone HCl 10 mg 04/13/17 22:30 04/13/17 22:48 Dilaudid Maintenance Dispatcher - CIRCULAR STUFFER 04/20/17 22:19 10 mg CIRCULAR STUFFER SIENA Administration Protocol Lactated Ringer's 1,000 mls @ 125 mls/hr 04/13/17 19:15 04/14/17 21:30 Lactated Ringers Solution IV 125 mls/hr ASDIR [facility] Administration Magnesium Hydroxide 30 ml 04/13/17 19:45 04/14/17 21:27 Milk Of Magnesia - PO 30 ml Q8H PRN Administration CONSTIPATION Ondansetron HCl 4 mg 04/14/17 21:19 04/14/17 21:28 Zofran Injection IVPUSH 4 mg Q6H PRN Administration NAUSEA AND/OR VOMITING Pantoprazole Sodium 40 mg 04/13/17 22:00 04/14/17 21:29 Protonix - PO 40 mg BID [facility]IENA Administration Pramipexole Dihydrochloride 0.5 mg 04/13/17 22:00 04/14/17 21:28 Mirapex - PO 0.5 mg HS [facility]IENA Administration Pramipexole Dihydrochloride 0.5 mg 04/14/17 07:00 04/15/17 07:01 Mirapex - PO 0.5 mg 0700,1200,1700 [facility] Administration Senna 2 tab 04/14/17 10:00 04/14/17 10:38 Senna - PO 2 tab DAILY [facility] Administration Intake & Output 04/12/17 04/13/17 04/14/17 04/15/17 23:59 23:59 23:59 23:59 Intake Total 550 6070 3418 240 Output Total 400 1200 1595 620 Balance 150 8570 5233 -267 Weight 65.227 kg 64.864 kg 63.185 kg ASSESSMENT/PLAN: 71 year old man h/o HTN, HLD, PAFib, LBBB, COPD, chronic back and leg pain on multiple medications, h/o recurrent syncope admitted with severe acute on chronic lower back and leg pain. Post op day#2 S/P T12-S2 Laminectomy with instrumentation and fusion under GA NEURO -pain controlled with Dilaudid CIRCULAR STUFFER and gabapentin, valium. D/C'ed PO opiates -Dr. Manjarrez wants the patient to be observed in the ICU at least another day before considering step down to surgical floors - f/u progress with lumbar brace + f/u PT note Cardio - rate control with norvasc RESP - Continue incentive spirometry - cont Duoneb HTN-adequately controlled for now, h/o syncope possible orthostatic hypotension -cont norvasc for now - DVT prophylaxis Visit type - Emergency Visit Emergency Visit: No - New Patient This patient is new to me today: No - Critical Care Critical Care patient: Yes Total Critical Care Time (in minutes): 30 Critical Care Statement: The care of this patient involved high complexity decision making to prevent further life threatening deterioration of the patient 's condition and/or to evaluate & treat vital organ system(s) failure or risk of failure.
--- NOTE | 2017-04-15 09:10 | PN ---
Physical Exam: SUBJECTIVE: Patient seen and examined at bedside in ICU. Earlier today complained of chest pain. Now complaining of abdominal pain. 24 Hour Events Fever to 100.5 Two brief runs of V-tach ECG sinus tach to 117, LBBB (seen previously on 04/11) CT abdomen OBJECTIVE: Vital Signs Period Temp Pulse Resp BP Sys/Suazo Pulse Ox Last 24 Hr 99.0 F-100.5 F 99-114 14-23 109-135/54-89 97 GENERAL: The patient is awake, alert, and fully oriented. HEAD: Normal with no signs of trauma. LUNGS: Anterior breath sounds equal, clear to auscultation bilaterally, no wheezes, no crackles, no accessory muscle use. HEART: Regular rate and rhythm, S1, S2 without murmur, rub or gallop. ABDOMEN: Distended, tender. MSK: surgical wound not visualized EXTREMITIES: 2+ pulses, warm, well-perfused, no edema. RLE: moves toes, 3/5 soft sensory, 5/5 sharp sensory from toes to knees LLE: cannot move toes, 0/5 soft sensory and 0/5 sharp sensory from toes to knees NEUROLOGICAL: Cranial nerves II through XII grossly intact. Normal speech, gait not observed. Laboratory Results - last 24 hr 04/15/17 04/15/17 04/15/17 05:00 05:00 05:00 WBC 13.2 H RBC 2.32 L Hgb 7.9 L D Hct 22.6 L MCV 97.4 H MCH 34.1 H MCHC 35.1 RDW 15.5 Plt Count 130 L MPV 9.1 Neutrophils % 84.2 H Lymphocytes % 7.2 L D Monocytes % 8.5 Eosinophils % 0.0 Basophils % 0.1 Sodium 142 Potassium 4.1 Chloride 107 Carbon Dioxide 25 Anion Gap 10 BUN 24 H Creatinine 1.2 Random Glucose 110 H Calcium 7.7 L Phosphorus 2.6 D Magnesium 2.2 D Random Vancomycin 5.446 Current Medications Generic Name Dose Route Start Last Admin Trade Name Freq PRN Reason Stop Dose Admin Albuterol/Ipratropium 1 amp 04/13/17 19:45 Duoneb - NEB Q4H PRN SHORTNESS OF BREATH Amlodipine Besylate 5 mg 04/14/17 10:00 04/15/17 09:25 Norvasc - PO 5 mg DAILY SIENA Administration Carbidopa/Levodopa 1 combo 04/14/17 07:00 04/15/17 12:29 Sinemet *Cr* 50/200 - PO 1 combo 0700,1200,1700 SIENA Administration Diazepam 2 mg 04/14/17 21:12 04/15/17 05:35 Valium - PO 04/17/17 21:13 2 mg Q6H PRN Administration WITHDRAWAL(CONT SUBST) Docusate Sodium 100 mg 04/13/17 22:00 04/15/17 09:25 Colace - PO Not Given BID SIENA Gabapentin 100 mg 04/15/17 06:00 04/15/17 13:49 Neurontin - PO 100 mg 0600,1400 SIENA Administration Gabapentin 200 mg 04/14/17 22:00 04/14/17 21:27 Neurontin - PO 200 mg HS SIENA Administration Heparin Sodium (Porcine) 5,000 unit 04/13/17 22:00 04/15/17 13:49 Heparin - SQ 5,000 unit TID SIENA Administration Hydromorphone HCl 0.5 mg 04/15/17 17:04 Dilaudid Injection - IVPB Q3H PRN PAIN Lactated Ringer's 1,000 mls @ 125 mls/hr 04/13/17 19:15 04/14/17 21:30 Lactated Ringers Solution IV 125 mls/hr ASDIR SIENA Administration Magnesium Hydroxide 30 ml 04/13/17 19:45 04/15/17 15:13 Milk Of Magnesia - PO 30 ml Q8H PRN Administration CONSTIPATION Metoprolol Tartrate 25 mg 04/15/17 22:00 Lopressor - PO BID SIENA Ondansetron HCl 4 mg 04/14/17 21:19 04/14/17 21:28 Zofran Injection IVPUSH 4 mg Q6H PRN Administration NAUSEA AND/OR VOMITING Pantoprazole Sodium 40 mg 04/13/17 22:00 04/15/17 09:25 Protonix - PO 40 mg BID SIENA Administration Pramipexole Dihydrochloride 0.5 mg 04/13/17 22:00 04/14/17 21:28 Mirapex - PO 0.5 mg HS SIENA Administration Pramipexole Dihydrochloride 0.5 mg 04/14/17 07:00 04/15/17 11:56 Mirapex - PO 0.5 mg 0700,1200,1700 SIENA Administration Senna 2 tab 04/14/17 10:00 04/15/17 09:25 Senna - PO 2 tab DAILY SIENA Administration ASSESSMENT/PLAN: 71 year-old male with PMH significant for HTN, HLD, proxysmal afib, pulmonary HTN, COPD, CKD stage 3, depression, anxiety, and spinal degenerative joint disease with chronic back and b/l leg pain. Chest pain --ECG not suggestive of acute ischemic event --two self-limiting brief runs of V-tach, started metoprolol 25mg BID Abdominal pain Ileus --CTAP: new mild diffuse large and small bowel dilation, suggestive of ileus --make NPO --switch LR to D5/LR Fever --Tm 100.5, may be inflammatory post-surgical fever but also has UTI UTI --urine culture grew staph epi >100k --continue Vanc (day #2) Multilevel degenerative and facet joint disease s/p T12-S2 laminectomies/fusion/ instrumentation/decompression on 04/13/17 --POD #2 --seen by anesthesiology, adjusted dilaudid DIRECTOR METABOLISM to add basal rate Parkinson's Disease --continue carbidopa/levodopa, pramipexole Hypertension --normotensive --recently taken off cardizem and lisinopril due to orthostatic hypotension and syncope --continue amlodipine Hyperlipidemia --not on meds Paroxysmal atrial fibrillation --off cardizem due to recent syncopal episodes --now on metoprolol --not on a/c, patient choice COPD --duonebs PRN Acute on chronic renal insufficiency --resolved Depression/anxiety --valium PRN Fluids: D5/LR @ 125mL/hr Electrolytes: replete as indicated Nutrition: low sodium DVT prophylaxis: subq heparin PT evaluation Daily PT Dispo: continues to require ICU level care. Full code. Visit type - Emergency Visit Emergency Visit: Yes ED Registration Date: 04/11/17 Care time: The patient presented to the Emergency Department on the above date and was hospitalized for further evaluation of their emergent condition. - New Patient This patient is new to me today: No - Critical Care Critical Care patient: Yes Total Critical Care Time (in minutes): 75 Critical Care Statement: The care of this patient involved high complexity decision making to prevent further life threatening deterioration of the patient 's condition and/or to evaluate & treat vital organ system(s) failure or risk of failure.
[2017-04-15] MEDS ORDERED: PT OWN MED DRAWER 7, Y5N ONE ×2 (09:19→22:25)
[2017-04-15] MEDS: PANTOPRAZOLE 40 MG TABLET (FP) PO SCH ×2 (09:25→22:31)
[2017-04-15] MEDS: DOCUSATE SODIUM 100 MG CAPSULE (FP) PO SCH ×2 (09:25→22:31)
[2017-04-15] MEDS: SENNOSIDES 8.6MG TABLET (FP) PO SCH (09:25)
[2017-04-15] MEDS: amLODIPine BESYLATE 5 MG TABLET (FP) PO SCH (09:25)
--- NOTE | 2017-04-15 11:50 | PN ---
Teaching Attending Note Name of Resident: Ming Stark ATTENDING PHYSICIAN STATEMENT I saw and evaluated the patient. I reviewed the resident's note and discussed the case with the resident. I agree with the resident's findings and plan as documented. SUBJECTIVE: Pt seen and examined in the ICU. Pain better controlled today. Still some pain plantar aspect. OBJECTIVE: Last Vital Signs Temp Pulse Resp BP Pulse Ox 99.3 F 107 H 18 123/67 97 04/15/17 10:00 04/15/17 10:00 04/15/17 10:00 04/15/17 10:00 04/14/17 21:00 Intake & Output 04/12/17 04/13/17 04/14/17 04/15/17 23:59 23:59 23:59 23:59 Intake Total 550 6070 3418 240 Output Total 400 1200 1595 620 Balance 150 4870 1823 -380 Weight 143 lb 12.8 oz 143 lb 139 lb 4.8 oz Gen: NAD at rest Heart: tachycardic, regular Lung: decreased breath sounds at the bases Abd: soft, nontender Ext: no edema CBC, BMP 04/15/17 05:00 04/15/17 05:00 Active Medications Albuterol/Ipratropium (Duoneb -) 1 amp NEB Q4H PRN PRN Reason: SHORTNESS OF BREATH Amlodipine Besylate (Norvasc -) 5 mg PO DAILY [facility] Last Admin: 04/15/17 09:25 Dose: 5 mg Carbidopa/Levodopa (Sinemet *Cr* 50/200 -) 1 combo PO 0700,1200,1700 [facility] Last Admin: 04/15/17 07:01 Dose: 1 combo Diazepam (Valium -) 2 mg PO Q6H PRN PRN Reason: WITHDRAWAL(CONT SUBST) Stop: 04/17/17 21:13 Last Admin: 04/15/17 05:35 Dose: 2 mg Docusate Sodium (Colace -) 100 mg PO BID [facility] Last Admin: 04/15/17 09:25 Dose: Not Given Gabapentin (Neurontin -) 100 mg PO 0600,1400 [facility] Last Admin: 04/15/17 05:35 Dose: 100 mg Gabapentin (Neurontin -) 200 mg PO HS [facility] Last Admin: 04/14/17 21:27 Dose: 200 mg Heparin Sodium (Porcine) (Heparin -) 5,000 unit SQ TID [facility] Last Admin: 04/15/17 05:35 Dose: 5,000 unit Hydromorphone HCl (Dilaudid Spar Finisher -) 10 mg SENIOR WINDOWS ADMINISTRATOR SENIOR WINDOWS ADMINISTRATOR [facility] PRN Reason: Protocol Stop: 04/20/17 22:19 Last Admin: 04/13/17 22:48 Dose: 10 mg Lactated Ringer's (Lactated Ringers Solution) 1,000 mls @ 125 mls/hr IV ASDIR [facility] Last Admin: 04/14/17 21:30 Dose: 125 mls/hr Magnesium Hydroxide (Milk Of Magnesia -) 30 ml PO Q8H PRN PRN Reason: CONSTIPATION Last Admin: 04/14/17 21:27 Dose: 30 ml Ondansetron HCl (Zofran Injection) 4 mg IVPUSH Q6H PRN PRN Reason: NAUSEA AND/OR VOMITING Last Admin: 04/14/17 21:28 Dose: 4 mg Pantoprazole Sodium (Protonix -) 40 mg PO BID [facility] Last Admin: 04/15/17 09:25 Dose: 40 mg Pramipexole Dihydrochloride (Mirapex -) 0.5 mg PO HS [facility] Last Admin: 04/14/17 21:28 Dose: 0.5 mg Pramipexole Dihydrochloride (Mirapex -) 0.5 mg PO 0700,1200,1700 [facility] Last Admin: 04/15/17 07:01 Dose: 0.5 mg Senna (Senna -) 2 tab PO DAILY [facility] Last Admin: 04/15/17 09:25 Dose: 2 tab ASSESSMENT AND PLAN: Lumbar Degenerative Scoliosis s/p T12-S2 Laminectomies/decompression/fusion Paroxysmal Atrial Fibrillation COPD HTN Hyperlipidemia Parkinson's Disease Acute on Chronic Renal Failure improving - pain conrol - incentive spirometry - inhaled bronchodilators - rate control - rehab/PT - can monitor on surgical floor if ok with surgery - DVT prophylaxis
[2017-04-15] MEDS ORDERED: oxyCODONE HCL 5 MG TABLET PO PRN (14:03)
[2017-04-15] MEDS ORDERED: HYDROmorphone *PCA* 10MG/50ML DISP.SYRIN PCA SCH (14:08)
--- NOTE | 2017-04-15 14:26 | PN ---
Progress Note (short form) - Note Progress Note: S: Pt. in bed. C/O severe back pain O: VAS 9-1010 A/P: POD#2 s/p multi-level fusion 1. will adjust FRENCH EDGE OPERATOR and add a low dose basal. will d/c po narcotics 2. encouraged FRENCH EDGE OPERATOR use
--- NOTE | 2017-04-15 14:53 | PN ---
Progress Note, Physician History of Present Illness: patient doing better pain main issue - Current Medication List Current Medications: Active Medications Albuterol/Ipratropium (Duoneb -) 1 amp NEB Q4H PRN PRN Reason: SHORTNESS OF BREATH Amlodipine Besylate (Norvasc -) 5 mg PO DAILY [facility] Last Admin: 04/15/17 09:25 Dose: 5 mg Carbidopa/Levodopa (Sinemet *Cr* 50/200 -) 1 combo PO 0700,1200,1700 [facility] Last Admin: 04/15/17 12:29 Dose: 1 combo Diazepam (Valium -) 2 mg PO Q6H PRN PRN Reason: WITHDRAWAL(CONT SUBST) Stop: 04/17/17 21:13 Last Admin: 04/15/17 05:35 Dose: 2 mg Docusate Sodium (Colace -) 100 mg PO BID [facility] Last Admin: 04/15/17 09:25 Dose: Not Given Gabapentin (Neurontin -) 100 mg PO 0600,1400 [facility] Last Admin: 04/15/17 13:49 Dose: 100 mg Gabapentin (Neurontin -) 200 mg PO HS [facility] Last Admin: 04/14/17 21:27 Dose: 200 mg Heparin Sodium (Porcine) (Heparin -) 5,000 unit SQ TID [facility] Last Admin: 04/15/17 13:49 Dose: 5,000 unit Hydromorphone HCl (Dilaudid Command And Control Specialist -) 10 mg REMOTE ENCODING CENTER MANAGER REMOTE ENCODING CENTER MANAGER [facility] PRN Reason: Protocol Stop: 04/20/17 22:19 Lactated Ringer's (Lactated Ringers Solution) 1,000 mls @ 125 mls/hr IV ASDIR [facility] Last Admin: 04/14/17 21:30 Dose: 125 mls/hr Magnesium Hydroxide (Milk Of Magnesia -) 30 ml PO Q8H PRN PRN Reason: CONSTIPATION Last Admin: 04/14/17 21:27 Dose: 30 ml Ondansetron HCl (Zofran Injection) 4 mg IVPUSH Q6H PRN PRN Reason: NAUSEA AND/OR VOMITING Last Admin: 04/14/17 21:28 Dose: 4 mg Pantoprazole Sodium (Protonix -) 40 mg PO BID [facility] Last Admin: 04/15/17 09:25 Dose: 40 mg Pramipexole Dihydrochloride (Mirapex -) 0.5 mg PO HS [facility] Last Admin: 04/14/17 21:28 Dose: 0.5 mg Pramipexole Dihydrochloride (Mirapex -) 0.5 mg PO 0700,1200,1700 [facility] Last Admin: 04/15/17 11:56 Dose: 0.5 mg Senna (Senna -) 2 tab PO DAILY [facility] Last Admin: 04/15/17 09:25 Dose: 2 tab - Objective Vital Signs: Vital Signs Temperature 99.0 F 04/15/17 14:00 Pulse Rate 111 H 04/15/17 14:00 Respiratory Rate 22 04/15/17 14:00 Blood Pressure 114/54 04/15/17 14:00 O2 Sat by Pulse Oximetry (%) 97 04/14/17 21:00 Constitutional: Yes: Calm, Mild Distress Neck: Yes: Supple, Trachea Midline Cardiovascular: Yes: Regular Rate and Rhythm Respiratory: Yes: Regular, CTA Bilaterally Gastrointestinal: Yes: Normal Bowel Sounds, Soft Musculoskeletal: Yes: WNL Extremities: Yes: Other Wound/Incision: Yes: Dressing Dry and Intact Neurological: Yes: Alert, Oriented Psychiatric: Yes: Alert, Oriented Labs: CBC, BMP 04/15/17 05:00 04/15/17 05:00 INR, PTT INR 1.00 (0.82-1.09) 04/13/17 06:00 Assessment/Plan Problem List - Problems (1) Chronic obstructive pulmonary disease (COPD) Code(s): J44.9 - CHRONIC OBSTRUCTIVE PULMONARY DISEASE, UNSPECIFIED (2) Lower extremity pain Code(s): M79.606 - PAIN IN LEG, UNSPECIFIED Qualifiers: Laterality: bilateral Qualified Code(s): M79.604 - Pain in right leg (3) Carotid stenosis Code(s): I65.29 - OCCLUSION AND STENOSIS OF UNSPECIFIED CAROTID ARTERY (4) HTN (hypertension) Code(s): I10 - ESSENTIAL (PRIMARY) HYPERTENSION Qualifiers: Hypertension type: essential hypertension Qualified Code(s): I10 - Essential (primary) hypertension (5) Afib Code(s): I48.91 - UNSPECIFIED ATRIAL FIBRILLATION (6) CKD (chronic kidney disease) stage 3, GFR 30-59 ml/min Code(s): N18.3 - CHRONIC KIDNEY DISEASE, STAGE 3 (MODERATE) (7) BPH (benign prostatic hyperplasia) Code(s): N40.0 - BENIGN PROSTATIC HYPERPLASIA WITHOUT LOWER URINRY TRACT SYMP (8) Back pain Code(s): M54.9 - DORSALGIA, UNSPECIFIED Qualifiers: Back pain location: low back pain Chronicity: chronic Back pain laterality: bilateral Sciatica presence: unspecified whether sciatica present Qualified Code(s): M54.5 - Low back pain 9 uti plan continue close monitoring continue vanco rest as per icu neurosurgery pain control cc time 40 min
[2017-04-15] MEDS: MAGNESIUM HYDROX 2400MG/30ML ORAL SUSPENSION 30 ML CUP PO PRN (15:13)
--- NOTE | 2017-04-15 16:19 | PN ---
Progress Note, Physician Chief Complaint: Pt had strong chest pain earlier today; now with mild discomfort, but cannot pinpoint where in the chest it is. He also has chronic lower back pain. History of Present Illness: Patient is a 71 year old male with a history of depression, anxiety, paroxysmal afib, Known LBBB, HTN, CKD stage 3, Nephrolithiasis(s/p R UVJ Stent), BPH and Chronic back pain who presents with acute worsening of bilateral lower extremity pain and lower back pain. The patient reports that his chronic lower extremity pain acutely worsened earlier today and did not respond to taking 4-5 percocet prompting him to present to the ED today. Of note, he had a recent admission 03/2017 for similar complaints where he underwent a diagnostic LP and MRI which did not demonstrate etiologies of his back pain. He has had 2 laminectomies in the past that did not help resolve his pain. He has presented multiple times to our ED and OSH EDs for similar worsening of his bilateral lower extremity pain. He denies saddle anesthesia, but notes some numbness and tingling in his lower extremities. He states that he is unable to ambulate at home secondary to pain. He denies fevers, chills, SOB, chest pain, abdominal pain, or changes with urination or bowel movements. - Current Medication List Current Medications: Active Medications Albuterol/Ipratropium (Duoneb -) 1 amp NEB Q4H PRN PRN Reason: SHORTNESS OF BREATH Amlodipine Besylate (Norvasc -) 5 mg PO DAILY [facility] Last Admin: 04/15/17 09:25 Dose: 5 mg Carbidopa/Levodopa (Sinemet *Cr* 50/200 -) 1 combo PO 0700,1200,1700 [facility] Last Admin: 04/15/17 12:29 Dose: 1 combo Diazepam (Valium -) 2 mg PO Q6H PRN PRN Reason: WITHDRAWAL(CONT SUBST) Stop: 04/17/17 21:13 Last Admin: 04/15/17 05:35 Dose: 2 mg Docusate Sodium (Colace -) 100 mg PO BID [facility] Last Admin: 04/15/17 09:25 Dose: Not Given Gabapentin (Neurontin -) 100 mg PO 0600,1400 [facility] Last Admin: 04/15/17 13:49 Dose: 100 mg Gabapentin (Neurontin -) 200 mg PO HS [facility] Last Admin: 04/14/17 21:27 Dose: 200 mg Heparin Sodium (Porcine) (Heparin -) 5,000 unit SQ TID [facility] Last Admin: 04/15/17 13:49 Dose: 5,000 unit Hydromorphone HCl (Dilaudid Prevocational/Rehabilitation Counselor -) 10 mg EXCHANGE OPERATOR EXCHANGE OPERATOR [facility]IENA PRN Reason: Protocol Stop: 04/20/17 22:19 Lactated Ringer's (Lactated Ringers Solution) 1,000 mls @ 125 mls/hr IV ASDIR [facility] Last Admin: 04/14/17 21:30 Dose: 125 mls/hr Magnesium Hydroxide (Milk Of Magnesia -) 30 ml PO Q8H PRN PRN Reason: CONSTIPATION Last Admin: 04/15/17 15:13 Dose: 30 ml Ondansetron HCl (Zofran Injection) 4 mg IVPUSH Q6H PRN PRN Reason: NAUSEA AND/OR VOMITING Last Admin: 04/14/17 21:28 Dose: 4 mg Pantoprazole Sodium (Protonix -) 40 mg PO BID [facility] Last Admin: 04/15/17 09:25 Dose: 40 mg Pramipexole Dihydrochloride (Mirapex -) 0.5 mg PO HS [facility] Last Admin: 04/14/17 21:28 Dose: 0.5 mg Pramipexole Dihydrochloride (Mirapex -) 0.5 mg PO 0700,1200,1700 [facility] Last Admin: 04/15/17 11:56 Dose: 0.5 mg Senna (Senna -) 2 tab PO DAILY [facility] Last Admin: 04/15/17 09:25 Dose: 2 tab - Objective Vital Signs: Vital Signs Temperature 99.0 F 04/15/17 14:00 Pulse Rate 111 H 04/15/17 14:00 Respiratory Rate 22 04/15/17 14:00 Blood Pressure 114/54 04/15/17 14:00 O2 Sat by Pulse Oximetry (%) 97 04/14/17 21:00 Constitutional: Yes: Anxious Eyes: Yes: WNL HENT: Yes: WNL Neck: Yes: WNL Cardiovascular: Yes: S1, S2 (split) Respiratory: Yes: Regular Gastrointestinal: Yes: Soft ...Rectal Exam: Yes: Deferred Genitourinary: No: Anuria Musculoskeletal: Yes: Back Pain Extremities: Yes: Cool Edema: No Peripheral Pulses WNL: Yes Integumentary: Yes: WNL Neurological: Yes: Alert, Weakness Psychiatric: Yes: Other Labs: CBC, BMP 04/15/17 05:00 04/15/17 05:00 INR, PTT INR 1.00 (0.82-1.09) 04/13/17 06:00 - ....Imaging Other: Image Reviewed (telemetry: NSR; periods of sinus tachycardia; rare brief periods of PSVT) Problem List - Problems (1) BPH (benign prostatic hyperplasia) Code(s): N40.0 - BENIGN PROSTATIC HYPERPLASIA WITHOUT LOWER URINRY TRACT SYMP (2) Chronic obstructive pulmonary disease (COPD) Code(s): J44.9 - CHRONIC OBSTRUCTIVE PULMONARY DISEASE, UNSPECIFIED (3) Diverticulosis Code(s): K57.90 - DVRTCLOS OF INTEST, PART UNSP, W/O PERF OR ABSCESS W/O BLEED (4) Syncope Code(s): R55 - SYNCOPE AND COLLAPSE Qualifiers: Qualified Code(s): R55 - Syncope and collapse (5) Back pain Code(s): M54.9 - DORSALGIA, UNSPECIFIED Qualifiers: Qualified Code(s): M54.5 - Low back pain (6) Depression Code(s): F32.9 - MAJOR DEPRESSIVE DISORDER, SINGLE EPISODE, UNSPECIFIED Qualifiers: Qualified Code(s): F33.0 - Major depressive disorder, recurrent, mild (7) HTN (hypertension) Assessment/Plan: On amlodipine; can reduce or discontinue it if metoprolol (started for systolic CHF and PSVT) controls BP or lowers it too greatly. Code(s): I10 - ESSENTIAL (PRIMARY) HYPERTENSION Qualifiers: Qualified Code(s): I10 - Essential (primary) hypertension (8) Hyperlipidemia Code(s): E78.5 - HYPERLIPIDEMIA, UNSPECIFIED Qualifiers: Qualified Code(s): E78.5 - Hyperlipidemia, unspecified (9) LBBB (left bundle branch block) Code(s): I44.7 - LEFT BUNDLE-BRANCH BLOCK, UNSPECIFIED (10) SVT (supraventricular tachycardia) Assessment/Plan: metoprolol started (for systolic CHF and PSVT). Holter 11/18: NSR; LBBB; PSVT; brief run of what was likely PAT. Mg repleted; maintain all electrolytes WNL. TSH WNL. Pain management. Maintain hydration; f/u anemia workup. Code(s): I47.1 - SUPRAVENTRICULAR TACHYCARDIA (11) CKD (chronic kidney disease) stage 3, GFR 30-59 ml/min Code(s): N18.3 - CHRONIC KIDNEY DISEASE, STAGE 3 (MODERATE) (12) Osteoporosis Code(s): M81.0 - AGE-RELATED OSTEOPOROSIS W/O CURRENT PATHOLOGICAL FRACTURE (13) Weakness Code(s): R53.1 - WEAKNESS (14) Systolic CHF Assessment/Plan: mildly reduced LVEF on 11/18 ECHO, with mild MR and TR. Start metoprolol; f/u BP and HR. Add lisinopril if BP remains stable; f/u BUN/Cr, electrolytes. Low-grade temp; on antibiotics. Code(s): I50.20 - UNSPECIFIED SYSTOLIC (CONGESTIVE) HEART FAILURE (15) S/P laminectomy Assessment/Plan: f/u with neurosurgeon. Code(s): Z98.890 - OTHER SPECIFIED POSTPROCEDURAL STATES (16) Atypical chest pain Assessment/Plan: hx atypical chest pain; latest stress MIBI at [facility] a little more than a year ago reportedly without ischemia (f/u report). Presently has both chest and back pain; EKG unchanged. F/u TNI serially. Code(s): R07.89 - OTHER CHEST PAIN (17) Anemia Assessment/Plan: f/u significant drop in Hb. Code(s): D64.9 - ANEMIA, UNSPECIFIED
[2017-04-15] MEDS ORDERED: ACETAMINOPHEN 325 MG TABLET (FP) ONE (16:42)
[2017-04-15] MEDS ORDERED: VANCOMYCIN 750 MG in DEXTROSE 5%-WATER - 250 ML IVPB ONE (17:06)
--- NOTE | 2017-04-15 17:14 | PN ---
Progress Note (short form) - Note Progress Note: Anesthesiology Pain Service Called to evaluate pt. re. tachycardia, decreased SpO2 and somnolence. On evaluation, pt. is somnolent but becomes more awake and responds appropriately after recognizing Dr. Gan who was also at the bedside. Per RN, SENIOR UI DESIGNER dosing was not actually changed from 0.2mg to 0.3mg until about 20 minutes ago. Upon review of the dose log, the pt. hasn't administered any doses in the last hour. He is currently febrile and tachycardic to 120s. Will defer to Cardiology and ICU team to manage these issues. In the meantime, I will D/C SENIOR UI DESIGNER and change to IVPB PRN hydromorphone for pain management since pt. is under close ICU management. I have discussed this plan with RN and will reevaluate pain management as necessary.
[2017-04-15 18:10] LABS: URINE APPEARANCE SLCLOUDY; URINE BILIRUBIN NEGATIVE (NEGATIVE); URINE BLOOD 2+ (NEGATIVE); URINE COLOR YELLOW; URINE GLUCOSE (UA) NEGATIVE (NEGATIVE); URINE KETONE TRACE (NEGATIVE); URINE NITRITE NEGATIVE (NEGATIVE); URINE UROBILINOGEN NEGATIVE mg/dL (0.2-1.0)
--- NOTE | 2017-04-15 18:13 | PN ---
Progress Note (short form) - Note Progress Note: Called by nurse to evaluate patient due increased lethargy. Patient c/o chest pain. Patient states pain is anterior, mid sternum. Describes pain as sharp and with pressure sensation. Pain there with and without palpation or movement. Denies RAMIREZ, blurry vision, diaphoresis, arm/jaw pain/tingling. Nurse also states he has been tachycardic, oral temp 100.5. #atypical chest pain ; r/o ACS -stat ecg showing sinus tachycardia, no st-t waves changed; old LBBB -stat cardiac profile -previous echo indicates mild LV dysfunction ; BP stable for beta olman -will start metoprolol tartrate 25mg po bid -cardio on board #fever: -was being treated for UTI; -did not get vanco dose today -stat 1x vanco 750mg ordered -repeat UA; griggs culture -was given dose of Tylenol already; unable to trend fever
[2017-04-15 18:21] LABS: CPK 944 IU/L (39-308); TROPONIN I < 0.02 ng/ml (0.00-0.05)
[2017-04-15 18:47] LABS: URINE LEUK ESTERASE 1+ (NEGATIVE); URINE PROTEIN 2+ (NEGATIVE)
[2017-04-15 18:53] LABS: URINE BACTERIA RARE /hpf (NONE SEEN); URINE MUCUS RARE; URINE RBC 113 /hpf (0-3); URINE WBC 1 /hpf (3-5)
[2017-04-15] MEDS: DEXTROSE 5%-LACTATED RINGERS 1,000 ML IV SCH (20:00)
[2017-04-15] MEDS: HYDROmorphone HCL CARPU-JECT 1 MG/1 ML DISP.SYRIN IVPB PRN (20:44)
[2017-04-15] MEDS: ONDANSETRON 4 MG/2 ML VIAL IVPUSH PRN (20:50)
[2017-04-15] MEDS: METOPROLOL TARTRATE 25 MG TABLET (FP) PO SCH (22:30)
[2017-04-16] MEDS ORDERED: SIMETHICONE 80 MG TAB.CHEW (FP) PO ONE (02:15)
[2017-04-16] MEDS ORDERED: METOCLOPRAMIDE HCL INJECTION 10 MG/2 ML VIAL IVPUSH ONE (02:15)
[2017-04-16] MEDS: diazePAM 2 MG TABLET PO PRN (03:09)
[2017-04-16] MEDS: HYDROmorphone HCL CARPU-JECT 1 MG/1 ML DISP.SYRIN IVPB PRN ×5 (04:56→23:05)
[2017-04-16] MEDS: HEPARIN NA (PORCINE) 5,000 UNITS/ML 1ML VIAL SQ SCH ×3 (05:21→21:34)
[2017-04-16] MEDS: GABAPENTIN 100 MG CAPSULE (FP) PO SCH ×3 (05:21→21:33)
[2017-04-16 06:15] LABS: BASOPHIL 0.7 % (0-2.0); EOSINOPHIL 1.4 % (0-4.5); MCHC 34.5 g/dl (32.0-35.9); MEAN CELL VOLUME 98.6 fl (80-96); MEAN PLT VOLUME 9.7 fl (7.5-11.1); NEUTROPHILS 77.9 % (42.8-82.8); PLATELET COUNT 163 K/MM3 (134-434); RDW 15.4 % (11.9-15.9); WHITE BLOOD COUNT 11.2 K/mm3 (4.0-10.0)
[2017-04-16] MEDS: PRAMIPEXOLE DIHYDROCHLORIDE 0.5 MG TABLET PO SCH ×4 (06:32→21:33)
[2017-04-16 06:41] LABS: ALBUMIN 2.8 g/dl (3.4-5.0); ANION GAP 10 (8-16); CALCIUM 7.9 mg/dL (8.5-10.1); CO2 26 mmol/L (21-32); GLUCOSE,RANDOM 97 mg/dL (74-106); MAGNESIUM 2.4 mg/dL (1.8-2.4)
[2017-04-16 06:45] LABS: ALK PHOS 46 U/L (45-117); BILIRUBIN,DIRECT 0.2 mg/dL (0.0-0.2); BILIRUBIN,TOTAL 0.8 mg/dL (0.2-1.0); CREATININE 1.2 mg/dL (0.7-1.3); PHOSPHOROUS 1.7 mg/dL (2.5-4.9); SGOT/AST 41 U/L (15-37); SGPT/ALT 11 U/L (12-78); TOT PROT 5.2 g/dl (6.4-8.2)
[2017-04-16 07:30] LABS: TROPONIN I < 0.02 ng/ml (0.00-0.05)
--- NOTE | 2017-04-16 09:07 | PN ---
Progress Note (short form) - Note Progress Note: POD#3 Pt states that he is passing flatus/no BM"S. He has a history of IBS/ diveriticualr disease. No nausea/he feels hungry. Left leg numbness improved and he was oob with PT briefly yesterday. Vital Signs Period Temp Pulse Resp BP Sys/Suazo Pulse Ox Last 24 Hr 98.7 F-100.5 F 78-114 16-23 103-135/45-73 98-98 GEN: ALert and appears comfortable BACK: dressing in place and remains dry. Drain 310 from 440 yesterday and appears less thin. ABD: soft, slight distended. non-tender LE: Calves, no tenderness or swelling noted. PARVIZ/SCDs in place. plantar/dorsal flexion 5/5 RLE, LLE4/5 plantar/dorsal flexion. CBC, BMP // 05:00 //17 05:00 CT scan ABD: ileus, b/l basilar atelectasis A/P: 71 yo male s/p T12-S2 laminectomy/fusion/instrumentation/decompression PT with ileus, S/w the ICU team, plan for possible repeat AXR today since pt with flatus and if improved begin clears OOB and ambulate with PT, instructions written yesterday with PT parameters and D/w nursing staff today Pt now off GIFT PACKER and IV pain meds as needed When ileus resolves and pt more mobile add iron supplements, H&H stable but low
[2017-04-16] MEDS: DOCUSATE SODIUM 100 MG CAPSULE (FP) PO SCH ×2 (09:17→21:32)
[2017-04-16] MEDS: METOPROLOL TARTRATE 25 MG TABLET (FP) PO SCH (09:17)
[2017-04-16] MEDS: PANTOPRAZOLE 40 MG TABLET (FP) PO SCH ×2 (09:17→21:33)
[2017-04-16] MEDS: NAPH,MB-DB/K PH,MBDB POWDER PACKET PO SCH ×3 (09:17→21:33)
[2017-04-16] MEDS: amLODIPine BESYLATE 5 MG TABLET (FP) PO SCH (09:20)
[2017-04-16] MEDS: DEXTROSE 5%-LACTATED RINGERS 1,000 ML IV SCH (09:30)
[2017-04-16] MEDS ORDERED: POLYETHYLENE GLYCOL 3350 119 GM BTL PO SCH (10:00)
--- NOTE | 2017-04-16 10:26 | PN ---
Progress Note, Physician History of Present Illness: 71 year old man h/o HTN, HLD, AFib, LBBB, COPD, chronic back and leg pain on multiple medications, h/o recurrent syncope admitted with severe acute on chronic lower back and leg pain. Pt was seen by neurology and neurosurgery yesterday. Neurology felt surgery would not be helpful but neurosurgery felt that surgery could offer some relief of his pain and disability and thus he is planned for surgical intervention. Pt was seen and examined today in nad. No overnight events. no new complaints. He states that his back and leg pain was so severe that he was significantly disabled at home and it was not responsive to medications. He denies having any chest pain, sob, palpitations. No pnd, orthopnea, or LE edema. No recent recurrent syncope or near syncope. - Current Medication List Current Medications: Active Medications Albuterol/Ipratropium (Duoneb -) 1 amp NEB Q4H PRN PRN Reason: SHORTNESS OF BREATH Amlodipine Besylate (Norvasc -) 5 mg PO DAILY [facility] Last Admin: 04/16/17 09:20 Dose: 5 mg Carbidopa/Levodopa (Sinemet *Cr* 50/200 -) 1 combo PO 0700,1200,1700 [facility] Last Admin: 04/16/17 06:29 Dose: 1 combo Docusate Sodium (Colace -) 100 mg PO BID [facility] Last Admin: 04/16/17 09:17 Dose: 100 mg Gabapentin (Neurontin -) 100 mg PO 0600,1400 [facility] Last Admin: 04/16/17 05:21 Dose: 100 mg Gabapentin (Neurontin -) 200 mg PO HS [facility] Last Admin: 04/15/17 22:31 Dose: 200 mg Heparin Sodium (Porcine) (Heparin -) 5,000 unit SQ TID [facility] Last Admin: 04/16/17 05:21 Dose: 5,000 unit Hydromorphone HCl (Dilaudid Injection -) 0.5 mg IVPB Q3H PRN PRN Reason: PAIN Last Admin: 04/16/17 09:49 Dose: 0.5 mg Dextrose/Lactated Ringer's (D5-Lr -) 1,000 mls @ 125 mls/hr IV ASDIR [facility] Last Admin: 04/16/17 09:30 Dose: 125 mls/hr Magnesium Hydroxide (Milk Of Magnesia -) 30 ml PO Q8H PRN PRN Reason: CONSTIPATION Last Admin: 04/15/17 15:13 Dose: 30 ml Metoprolol Tartrate (Lopressor -) 25 mg PO BID [facility] Last Admin: 04/16/17 09:17 Dose: 25 mg Ondansetron HCl (Zofran Injection) 4 mg IVPUSH Q6H PRN PRN Reason: NAUSEA AND/OR VOMITING Last Admin: 04/15/17 20:50 Dose: 4 mg Pantoprazole Sodium (Protonix -) 40 mg PO BID [facility] Last Admin: 04/16/17 09:17 Dose: 40 mg Polyethylene Glycol (Miralax (For Daily Use) -) 17 gm PO DAILY [facility] Last Admin: 04/16/17 09:14 Dose: 17 gm Potassium Phos/Sodium Phos (Phos-Nak Packet -) 1 packet PO TID [facility] Last Admin: 04/16/17 09:17 Dose: 1 packet Pramipexole Dihydrochloride (Mirapex -) 0.5 mg PO HS [facility] Last Admin: 04/15/17 22:31 Dose: 0.5 mg Pramipexole Dihydrochloride (Mirapex -) 0.5 mg PO 0700,1200,1700 [facility] Last Admin: 04/16/17 06:32 Dose: 0.5 mg - Objective Vital Signs: Vital Signs Temperature 100.3 F H 04/16/17 10:00 Pulse Rate 82 04/16/17 10:00 Respiratory Rate 20 04/16/17 10:00 Blood Pressure 120/71 04/16/17 10:00 O2 Sat by Pulse Oximetry (%) 98 04/16/17 08:49 Eyes: Yes: WNL, Conjunctiva Clear, EOM Intact HENT: Yes: WNL, Atraumatic, Normocephalic Neck: Yes: WNL, Supple, Trachea Midline Cardiovascular: Yes: WNL, Regular Rate and Rhythm Respiratory: Yes: WNL, Regular, CTA Bilaterally Gastrointestinal: Yes: WNL, Normal Bowel Sounds Genitourinary: Yes: WNL Musculoskeletal: Yes: WNL Extremities: Yes: WNL Edema: No Integumentary: Yes: WNL Neurological: Yes: WNL, Alert, Oriented ...Motor Strength: WNL Psychiatric: Yes: WNL Labs: CBC, BMP 04/16/17 05:00 04/16/17 05:00 INR, PTT INR 1.00 (0.82-1.09) 04/13/17 06:00 Assessment/Plan - Problems (1) BPH (benign prostatic hyperplasia) Code(s): N40.0 - BENIGN PROSTATIC HYPERPLASIA WITHOUT LOWER URINRY TRACT SYMP (2) Chronic obstructive pulmonary disease (COPD) Code(s): J44.9 - CHRONIC OBSTRUCTIVE PULMONARY DISEASE, UNSPECIFIED (3) Diverticulosis Code(s): K57.90 - DVRTCLOS OF INTEST, PART UNSP, W/O PERF OR ABSCESS W/O BLEED (4) Syncope Code(s): R55 - SYNCOPE AND COLLAPSE Qualifiers: Qualified Code(s): R55 - Syncope and collapse (5) Back pain Code(s): M54.9 - DORSALGIA, UNSPECIFIED Qualifiers: Qualified Code(s): M54.5 - Low back pain (6) Depression Code(s): F32.9 - MAJOR DEPRESSIVE DISORDER, SINGLE EPISODE, UNSPECIFIED Qualifiers: Qualified Code(s): F33.0 - Major depressive disorder, recurrent, mild (7) HTN (hypertension) Assessment/Plan: On amlodipine; can reduce or discontinue it if metoprolol (started for systolic CHF and PSVT) controls BP or lowers it too greatly. Code(s): I10 - ESSENTIAL (PRIMARY) HYPERTENSION Qualifiers: Qualified Code(s): I10 - Essential (primary) hypertension (8) Hyperlipidemia Code(s): E78.5 - HYPERLIPIDEMIA, UNSPECIFIED Qualifiers: Qualified Code(s): E78.5 - Hyperlipidemia, unspecified (9) LBBB (left bundle branch block) Code(s): I44.7 - LEFT BUNDLE-BRANCH BLOCK, UNSPECIFIED (10) SVT (supraventricular tachycardia) Assessment/Plan: metoprolol started (for systolic CHF and PSVT). Holter 11/18: NSR; LBBB; PSVT; brief run of what was likely PAT. Mg repleted; maintain all electrolytes WNL. TSH WNL. Pain management. Maintain hydration; f/u anemia workup. Code(s): I47.1 - SUPRAVENTRICULAR TACHYCARDIA (11) CKD (chronic kidney disease) stage 3, GFR 30-59 ml/min Code(s): N18.3 - CHRONIC KIDNEY DISEASE, STAGE 3 (MODERATE) (12) Osteoporosis Code(s): M81.0 - AGE-RELATED OSTEOPOROSIS W/O CURRENT PATHOLOGICAL FRACTURE (13) Weakness Code(s): R53.1 - WEAKNESS (14) Systolic CHF Assessment/Plan: mildly reduced LVEF on 11/18 ECHO, with mild MR and TR. Start metoprolol; f/u BP and HR. Add lisinopril if BP remains stable; f/u BUN/Cr, electrolytes. Low-grade temp; on antibiotics. Code(s): I50.20 - UNSPECIFIED SYSTOLIC (CONGESTIVE) HEART FAILURE (15) S/P laminectomy Assessment/Plan: f/u with neurosurgeon. Code(s): Z98.890 - OTHER SPECIFIED POSTPROCEDURAL STATES (16) Atypical chest pain Assessment/Plan: hx atypical chest pain; latest stress MIBI at [facility] a little more than a year ago reportedly without ischemia (f/u report). Presently has both chest and back pain; EKG unchanged. F/u TNI serially. Code(s): R07.89 - OTHER CHEST PAIN (17) Anemia Assessment/Plan: f/u significant drop in Hb. Code(s): D64.9 - ANEMIA, UNSPECIFIED cc time 35 min
--- NOTE | 2017-04-16 11:09 | EKG ---
Test Reason : Blood Pressure : / mmHG Vent. Rate : 117 BPM Atrial Rate : 117 BPM P-R Int : 138 ms QRS Dur : 124 ms QT Int : 344 ms P-R-T Axes : 007 -25 117 degrees QTc Int : 479 ms POOR DATA QUALITY, INTERPRETATION MAY BE ADVERSELY AFFECTED SINUS TACHYCARDIA WITH PREMATURE ATRIAL COMPLEXES LEFT BUNDLE BRANCH BLOCK ABNORMAL ECG WHEN COMPARED WITH ECG OF 13-APR-2017 19:57, PREMATURE ATRIAL COMPLEXES ARE NOW PRESENT LEFT BUNDLE BRANCH BLOCK IS NOW PRESENT CRITERIA FOR SEPTAL INFARCT ARE NO LONGER PRESENT BORDERLINE CRITERIA FOR LATERAL INFARCT ARE NO LONGER PRESENT Confirmed by UMANG BATISTA, LAN ([id number]) on 04/16/2017 11:09:27 AM Referred By: Confirmed By:LAN HECK MD
[2017-04-16 11:14] LABS: FERRITIN 259.691 ng/ml (16.4-293.9)
[2017-04-16] MEDS ORDERED: SODIUM PHOSPHATE - 20 MM in DEXTROSE 5%-WATER - 250 ML IVPB ONE (11:44)
--- NOTE | 2017-04-16 12:09 | PN ---
Teaching Attending Note Name of Resident: Leia Stern ATTENDING PHYSICIAN STATEMENT I saw and evaluated the patient. I reviewed the resident's note and discussed the case with the resident. I agree with the resident's findings and plan as documented. SUBJECTIVE: Pt seen and examined in the ICU. Pain better controlled, still with numbness and weakness. OBJECTIVE: Last Vital Signs Temp Pulse Resp BP Pulse Ox 100.3 F H 82 20 120/71 98 04/16/17 10:00 04/16/17 10:00 04/16/17 10:00 04/16/17 10:00 04/16/17 08:49 Intake & Output 04/13/17 04/14/17 04/15/17 04/16/17 23:59 23:59 23:59 23:59 Intake Total 6070 3418 770 1685 Output Total 1200 1595 1610 520 Balance 4870 1823 -840 1165 Weight 143 lb 12.8 oz 143 lb 139 lb 4.8 oz 141 lb 1.6 oz Gen: NAD at rest Heart: RRR Lung: decreased breath sounds at the bases Abd: soft, nontender Ext: no edema CBC, BMP 04/16/17 05:00 04/16/17 05:00 Active Medications Albuterol/Ipratropium (Duoneb -) 1 amp NEB Q4H PRN PRN Reason: SHORTNESS OF BREATH Amlodipine Besylate (Norvasc -) 5 mg PO DAILY [facility] Last Admin: 04/16/17 09:20 Dose: 5 mg Carbidopa/Levodopa (Sinemet *Cr* 50/200 -) 1 combo PO 0700,1200,1700 [facility] Last Admin: 04/16/17 06:29 Dose: 1 combo Docusate Sodium (Colace -) 100 mg PO BID [facility] Last Admin: 04/16/17 09:17 Dose: 100 mg Gabapentin (Neurontin -) 100 mg PO 0600,1400 [facility] Last Admin: 04/16/17 05:21 Dose: 100 mg Gabapentin (Neurontin -) 200 mg PO HS [facility] Last Admin: 04/15/17 22:31 Dose: 200 mg Heparin Sodium (Porcine) (Heparin -) 5,000 unit SQ TID [facility] Last Admin: 04/16/17 05:21 Dose: 5,000 unit Hydromorphone HCl (Dilaudid Injection -) 0.5 mg IVPB Q3H PRN PRN Reason: PAIN Last Admin: 04/16/17 09:49 Dose: 0.5 mg Dextrose/Lactated Ringer's (D5-Lr -) 1,000 mls @ 125 mls/hr IV ASDIR [facility] Last Admin: 04/16/17 09:30 Dose: 125 mls/hr Sodium Phosphate 20 mm/ (Dextrose) 256.6667 mls @ 62.5 mls/hr IVPB ONCE ONE Stop: 04/16/17 15:50 Magnesium Hydroxide (Milk Of Magnesia -) 30 ml PO Q8H PRN PRN Reason: CONSTIPATION Last Admin: 04/15/17 15:13 Dose: 30 ml Metoprolol Tartrate (Lopressor -) 25 mg PO BID [facility] Last Admin: 04/16/17 09:17 Dose: 25 mg Ondansetron HCl (Zofran Injection) 4 mg IVPUSH Q6H PRN PRN Reason: NAUSEA AND/OR VOMITING Last Admin: 04/15/17 20:50 Dose: 4 mg Pantoprazole Sodium (Protonix -) 40 mg PO BID [facility] Last Admin: 04/16/17 09:17 Dose: 40 mg Polyethylene Glycol (Miralax (For Daily Use) -) 17 gm PO DAILY [facility] Last Admin: 04/16/17 09:14 Dose: 17 gm Potassium Phos/Sodium Phos (Phos-Nak Packet -) 1 packet PO TID [facility] Last Admin: 04/16/17 09:17 Dose: 1 packet Pramipexole Dihydrochloride (Mirapex -) 0.5 mg PO HS [facility] Last Admin: 04/15/17 22:31 Dose: 0.5 mg Pramipexole Dihydrochloride (Mirapex -) 0.5 mg PO 0700,1200,1700 [facility] Last Admin: 04/16/17 06:32 Dose: 0.5 mg ASSESSMENT AND PLAN: Lumbar Degenerative Scoliosis s/p T12-S2 Laminectomies/decompression/fusion Paroxysmal Atrial Fibrillation COPD HTN Hyperlipidemia Parkinson's Disease Acute on Chronic Renal Failure improving - pain conrol - incentive spirometry - inhaled bronchodilators - rate control - rehab/PT - can monitor on surgical floor if ok with surgery - DVT prophylaxis
--- NOTE | 2017-04-16 12:59 | PN ---
Progress Note (short form) - Note Progress Note: Patient continuing to make expected recovery after extensive spinal reconstructive surgery. Patient reports some improvement in his pain from yesterday. In the morning yesterday, he appeared well, however in the afternoon was complaining of chest pain. Cardiac eval appears to be stable and negative for acute cardiac event. Drain changed to passive system yesterday. Will continue to drain the mixed blood/CSF for at least one week to allow the fascia and skin to heal.
--- NOTE | 2017-04-16 13:33 | PN ---
Progress Note, Physician History of Present Illness: patient doing better pain main issue patient still spiking temperature - Current Medication List Current Medications: Active Medications Albuterol/Ipratropium (Duoneb -) 1 amp NEB Q4H PRN PRN Reason: SHORTNESS OF BREATH Amlodipine Besylate (Norvasc -) 5 mg PO DAILY [facility] Last Admin: 04/16/17 09:20 Dose: 5 mg Carbidopa/Levodopa (Sinemet *Cr* 50/200 -) 1 combo PO 0700,1200,1700 [facility] Last Admin: 04/16/17 12:30 Dose: 1 combo Docusate Sodium (Colace -) 100 mg PO BID [facility] Last Admin: 04/16/17 09:17 Dose: 100 mg Gabapentin (Neurontin -) 100 mg PO 0600,1400 [facility] Last Admin: 04/16/17 05:21 Dose: 100 mg Gabapentin (Neurontin -) 200 mg PO HS [facility] Last Admin: 04/15/17 22:31 Dose: 200 mg Heparin Sodium (Porcine) (Heparin -) 5,000 unit SQ TID [facility] Last Admin: 04/16/17 05:21 Dose: 5,000 unit Hydromorphone HCl (Dilaudid Injection -) 0.5 mg IVPB Q3H PRN PRN Reason: PAIN Last Admin: 04/16/17 09:49 Dose: 0.5 mg Dextrose/Lactated Ringer's (D5-Lr -) 1,000 mls @ 125 mls/hr IV ASDIR [facility] Last Admin: 04/16/17 09:30 Dose: 125 mls/hr Sodium Phosphate 20 mm/ (Dextrose) 256.6667 mls @ 62.5 mls/hr IVPB ONCE ONE Stop: 04/16/17 15:50 Vancomycin HCl 1,250 mg/ (Dextrose) 250 mls @ 250 mls/hr IVPB DAILY [facility] PRN Reason: Protocol Magnesium Hydroxide (Milk Of Magnesia -) 30 ml PO Q8H PRN PRN Reason: CONSTIPATION Last Admin: 04/15/17 15:13 Dose: 30 ml Metoprolol Tartrate (Lopressor -) 25 mg PO BID [facility] Last Admin: 04/16/17 09:17 Dose: 25 mg Ondansetron HCl (Zofran Injection) 4 mg IVPUSH Q6H PRN PRN Reason: NAUSEA AND/OR VOMITING Last Admin: 04/15/17 20:50 Dose: 4 mg Pantoprazole Sodium (Protonix -) 40 mg PO BID [facility] Last Admin: 04/16/17 09:17 Dose: 40 mg Polyethylene Glycol (Miralax (For Daily Use) -) 17 gm PO DAILY [facility] Last Admin: 04/16/17 09:14 Dose: 17 gm Potassium Phos/Sodium Phos (Phos-Nak Packet -) 1 packet PO TID [facility] Last Admin: 04/16/17 09:17 Dose: 1 packet Pramipexole Dihydrochloride (Mirapex -) 0.5 mg PO HS [facility] Last Admin: 04/15/17 22:31 Dose: 0.5 mg Pramipexole Dihydrochloride (Mirapex -) 0.5 mg PO 0700,1200,1700 [facility] Last Admin: 04/16/17 12:34 Dose: 0.5 mg - Objective Vital Signs: Vital Signs Temperature 100.3 F H 04/16/17 10:00 Pulse Rate 80 04/16/17 12:00 Respiratory Rate 22 04/16/17 12:00 Blood Pressure 108/88 04/16/17 12:00 O2 Sat by Pulse Oximetry (%) 98 04/16/17 08:49 Constitutional: Yes: Calm, Moderate Distress Neck: Yes: Supple Cardiovascular: Yes: Regular Rate and Rhythm Respiratory: Yes: Regular, CTA Bilaterally Gastrointestinal: Yes: Normal Bowel Sounds, Soft Musculoskeletal: Yes: Other Extremities: Yes: Other Wound/Incision: Yes: Dressing Dry and Intact, Other (draiange in place) Neurological: Yes: Alert, Oriented Psychiatric: Yes: Alert, Oriented Labs: CBC, BMP 04/16/17 05:00 04/16/17 05:00 INR, PTT INR 1.00 (0.82-1.09) 04/13/17 06:00 Assessment/Plan Problem List - Problems (1) Chronic obstructive pulmonary disease (COPD) Code(s): J44.9 - CHRONIC OBSTRUCTIVE PULMONARY DISEASE, UNSPECIFIED (2) Lower extremity pain Code(s): M79.606 - PAIN IN LEG, UNSPECIFIED Qualifiers: Laterality: bilateral Qualified Code(s): M79.604 - Pain in right leg (3) Carotid stenosis Code(s): I65.29 - OCCLUSION AND STENOSIS OF UNSPECIFIED CAROTID ARTERY (4) HTN (hypertension) Code(s): I10 - ESSENTIAL (PRIMARY) HYPERTENSION Qualifiers: Hypertension type: essential hypertension Qualified Code(s): I10 - Essential (primary) hypertension (5) Afib Code(s): I48.91 - UNSPECIFIED ATRIAL FIBRILLATION (6) CKD (chronic kidney disease) stage 3, GFR 30-59 ml/min Code(s): N18.3 - CHRONIC KIDNEY DISEASE, STAGE 3 (MODERATE) (7) BPH (benign prostatic hyperplasia) Code(s): N40.0 - BENIGN PROSTATIC HYPERPLASIA WITHOUT LOWER URINRY TRACT SYMP (8) Back pain Code(s): M54.9 - DORSALGIA, UNSPECIFIED Qualifiers: Back pain location: low back pain Chronicity: chronic Back pain laterality: bilateral Sciatica presence: unspecified whether sciatica present Qualified Code(s): M54.5 - Low back pain 9 uti plan continue close monitoring continue vanco will add another abx i am worried about the fevers will redo the cx of urine await for rest of the cx cc time 40 min
[2017-04-16] MEDS: MEROPENEM 1 GM in DEXTROSE 5%-WATER - 100 ML IVPB SCH ×2 (16:17→17:16)
[2017-04-16] MEDS ORDERED: ONDANSETRON 4 MG/2 ML VIAL IVPUSH PRN (16:18)
[2017-04-16] MEDS: DEXTROSE 5%-NORMAL SALINE 1,000 ML IV SCH (16:22)
[2017-04-16] MEDS ORDERED: VANCOMYCIN 1,250 MG in DEXTROSE 5%-WATER - 250 ML IVPB SCH (18:00)
--- NOTE | 2017-04-16 21:55 | PN ---
Physical Exam: SUBJECTIVE: Patient seen and examined in ICU. He has been complaining of lower extremity weakness and pain when moving. No overnight events. He started walking with PT yesterday. Have to use lumbar splint whe out of bed for more than 5 min. OBJECTIVE: Vital Signs Period Temp Pulse Resp BP Sys/Suazo Pulse Ox Last 24 Hr 99.1 F-100.5 F 78-98 16-22 103-132/45-88 94-98 GENERAL: The patient is awake, alert, and fully oriented, in no acute distress, complaining of pain. HEAD: Normal with no signs of trauma. EYES: extraocular movements intact, sclera anicteric. No ptosis. ENT: oropharynx clear without exudates, moist mucous membranes. NECK: Trachea midline, full range of motion, supple. LUNGS: Breath sounds equal, clear to auscultation bilaterally, no wheezes, no crackles, no accessory muscle use. HEART: Regular rate and rhythm, S1, S2 without murmur, rub or gallop. ABDOMEN: Soft, nontender, nondistended, normoactive bowel sounds, no guarding, no rebound, no masses. EXTREMITIES: 2+ pulses, warm, no edema. NEUROLOGICAL: Normal speech, no face asymmetry, motor in LE 1/5, upper extremities 5/5, sensation decreased in LE, gait not observed. PSYCH: Normal mood, normal affect. SKIN: Warm, dry, normal turgor, no rashes or lesions noted, drain in the back draining dark brown fluid. Laboratory Results - last 24 hr 04/13/17 04/15/17 04/16/17 13:13 17:15 00:50 WBC RBC Hgb Hct MCV MCH MCHC RDW Plt Count MPV Neutrophils % Lymphocytes % Monocytes % Eosinophils % Basophils % Sodium Potassium Chloride Carbon Dioxide Anion Gap BUN Creatinine Random Glucose Calcium Phosphorus Magnesium Ferritin Total Bilirubin Direct Bilirubin AST ALT Alkaline Phosphatase Troponin I < 0.02 Total Protein Albumin Vitamin B12 Urine Color Yellow Urine Appearance Slcloudy Urine pH 5.0 Ur Specific [place] 1.020 Urine Protein 2+ H Urine Glucose (UA) Negative Urine Ketones Trace H Urine Blood 2+ H Urine Nitrite Negative Urine Bilirubin Negative Urine Urobilinogen Negative Urine RBC 113 Urine WBC 1 Ur Epithelial Cells Rare Urine Bacteria Rare Urine Mucus Rare Blood Type O NEGATIVE Antibody Screen Negative Crossmatch IS Only See Detail 04/16/17 04/16/1704/16/17 05:00 05:00 05:00 WBC 11.2 H RBC 2.33 L Hgb 7.9 L Hct 23.0 L MCV 98.6 H MCH 34.0 H MCHC 34.5 RDW 15.4 Plt Count 163 D MPV 9.7 Neutrophils % 77.9 Lymphocytes % 12.1 D Monocytes % 7.9 Eosinophils % 1.4 D Basophils % 0.7 D Sodium 140 Potassium 3.9 Chloride 104 Carbon Dioxide 26 Anion Gap 10 BUN 20 H Creatinine 1.2 Random Glucose 97 Calcium 7.9 L Phosphorus 1.7 L D Magnesium 2.4 Ferritin 259.691 Total Bilirubin 0.8 Direct Bilirubin 0.2 AST 41 H D ALT 11 L D Alkaline Phosphatase 46 D Troponin I < 0.02 Total Protein 5.2 L Albumin 2.8 L Vitamin B12 659 D Urine Color Urine Appearance Urine pH Ur Specific [place] Urine Protein Urine Glucose (UA) Urine Ketones Urine Blood Urine Nitrite Urine Bilirubin Urine Urobilinogen Urine RBC Urine WBC Ur Epithelial Cells Urine Bacteria Urine Mucus Blood Type Antibody Screen Crossmatch IS Only Active Medications Generic Name Dose Route Start Last Admin Trade Name Freq PRN Reason Stop Dose Admin Albuterol/Ipratropium 1 amp 04/16/17 16:18 Duoneb - NEB Q4H PRN SHORTNESS OF BREATH Amlodipine Besylate 5 mg 04/17/17 10:00 Norvasc - PO DAILY [facility] Carbidopa/Levodopa 1 combo 04/16/17 17:00 04/16/17 17:16 Sinemet *Cr* 50/200 - PO 1 combo 0700,1200,1700 [facility] Administration Docusate Sodium 100 mg 04/16/17 22:00 Colace - PO BID [facility] Gabapentin 200 mg 04/16/17 22:00 Neurontin - PO HS [facility] Gabapentin 100 mg 04/17/17 06:00 Neurontin - PO 0600,1400 [facility] Heparin Sodium (Porcine) 5,000 unit 04/16/17 22:00 Heparin - SQ TID [facility] Hydromorphone HCl 0.5 mg 04/16/17 16:18 04/16/17 18:54 Dilaudid Injection - IVPB 0.5 mg Q3H PRN Administration PAIN Vancomycin HCl 1,250 mg/ 250 mls @ 125 mls/hr 04/16/17 18:00 04/16/17 17:16 Dextrose IVPB 125 mls/hr DAILY@1800 [facility] Administration Protocol Meropenem 1 gm/ Dextrose 100 mls @ 100 mls/hr 04/16/17 14:00 04/16/17 17:16 IVPB Not Given Q8H-IV [facility] Protocol Dextrose/Sodium Chloride 1,000 mls @ 125 mls/hr 04/16/17 15:00 04/16/17 16:22 D5-Ns - IV 125 mls/hr ASDIR [facility] Administration Magnesium Hydroxide 30 ml 04/16/17 16:18 Milk Of Magnesia - PO Q8H PRN CONSTIPATION Metoprolol Tartrate 25 mg 04/16/17 22:00 Lopressor - PO BID [facility] Ondansetron HCl 4 mg 04/16/17 16:18 Zofran Injection IVPUSH Q6H PRN NAUSEA AND/OR VOMITING Pantoprazole Sodium 40 mg 04/16/17 22:00 Protonix - PO BID [facility] Polyethylene Glycol 17 gm 04/17/17 10:00 Miralax (For Daily Use) - PO DAILY [facility] Potassium Phos/Sodium Phos 1 packet 04/16/17 22:00 Phos-Nak Packet - PO TID [facility] Pramipexole Dihydrochloride 0.5 mg 04/16/17 17:00 04/16/17 17:16 Mirapex - PO 0.5 mg 0700,1200,1700 [facility] Administration Pramipexole Dihydrochloride 0.5 mg 04/16/17 22:00 Mirapex - PO HS [facility] ASSESSMENT/PLAN: 71 year old male with PMH significant for HTN, HLD, proxysmal afib, pulmonary HTN, COPD, CKD stage 3, depression, anxiety, and spinal degenerative joint disease with chronic back and b/l leg pain s/p laminectomy T12-S2. Neurosurgery; -s/p T12-S2 laminectomies/fusion/instrumentation/decompression on 04/13/17 -POD #3 -drain on passive suction -dilaudid 05 mg Q3H PRN -following neurosurgery recommendations.The pt needs to use lumbar support when out of bed for more than 5 min and his ----drain needs to be in place. Cardio; Atypical Chest pain: EKG no acute changes, no troponin elevation started metoprolol 25mg BID monitor BP Paroxysmal atrial fibrillationon metoprolol, no AC GI: CTAP: new mild diffuse large and small bowel dilation, suggestive of ileus passing gas today make NPO, will do x ray of [place] this afternoon Endo: Fever may be inflammatory or post-surgical fever/UTI staph Vancomycin given ID consulted Pulm: COPD -duonebs PRN Fluids: D5/LR Electrolytes: replete as indicated Nutrition: low sodium DVT prophylaxis: subq heparin PT evaluation Daily PT with lumbar support, careful with drain Dispo: can be transferred to med surg Problem List - Problems (1) Atypical chest pain Code(s): R07.89 - OTHER CHEST PAIN (2) Chronic obstructive pulmonary disease (COPD) Code(s): J44.9 - CHRONIC OBSTRUCTIVE PULMONARY DISEASE, UNSPECIFIED (3) Diverticulosis Code(s): K57.90 - DVRTCLOS OF INTEST, PART UNSP, W/O PERF OR ABSCESS W/O BLEED (4) S/P laminectomy Code(s): Z98.890 - OTHER SPECIFIED POSTPROCEDURAL STATES (5) Syncope Code(s): R55 - SYNCOPE AND COLLAPSE Qualifiers: Syncope type: unspecified Qualified Code(s): R55 - Syncope and collapse (6) Back pain Code(s): M54.9 - DORSALGIA, UNSPECIFIED Qualifiers: Back pain location: low back pain Chronicity: chronic Back pain laterality: bilateral Sciatica presence: unspecified whether sciatica present Qualified Code(s): M54.5 - Low back pain (7) HTN (hypertension) Code(s): I10 - ESSENTIAL (PRIMARY) HYPERTENSION Qualifiers: Hypertension type: essential hypertension Qualified Code(s): I10 - Essential (primary) hypertension (8) Hyperlipidemia Code(s): E78.5 - HYPERLIPIDEMIA, UNSPECIFIED Qualifiers: Hyperlipidemia type: unspecified Qualified Code(s): E78.5 - Hyperlipidemia, unspecified (9) LBBB (left bundle branch block) Code(s): I44.7 - LEFT BUNDLE-BRANCH BLOCK, UNSPECIFIED (10) Osteoarthritis Code(s): M19.90 - UNSPECIFIED OSTEOARTHRITIS, UNSPECIFIED SITE Qualifiers: Osteoarthritis location: multiple joints Osteoarthritis type: primary Qualified Code(s): M15.0 - Primary generalized (osteo)arthritis Visit type - Emergency Visit Emergency Visit: Yes ED Registration Date: 04/11/17 Care time: The patient presented to the Emergency Department on the above date and was hospitalized for further evaluation of their emergent condition. - New Patient This patient is new to me today: No - Critical Care Critical Care patient: Yes Total Critical Care Time (in minutes): 40 Critical Care Statement: The care of this patient involved high complexity decision making to prevent further life threatening deterioration of the patient 's condition and/or to evaluate & treat vital organ system(s) failure or risk of failure.
[2017-04-16] MEDS ORDERED: METOPROLOL TARTRATE 25 MG TABLET (FP) PO SCH (22:00)
[2017-04-16 22:28] LABS: URINE APPEARANCE CLEAR; URINE BILIRUBIN NEGATIVE (NEGATIVE); URINE BLOOD NEGATIVE (NEGATIVE); URINE COLOR LTYELLOW; URINE GLUCOSE (UA) NEGATIVE (NEGATIVE); URINE KETONE NEGATIVE (NEGATIVE); URINE LEUK ESTERASE NEGATIVE (NEGATIVE); URINE NITRITE NEGATIVE (NEGATIVE); URINE UROBILINOGEN NEGATIVE mg/dL (0.2-1.0)
[2017-04-16 22:41] LABS: URINE PROTEIN 1+ (NEGATIVE)
[2017-04-16 22:42] LABS: URINE HYALINE CAST 1 /lpf; URINE MUCUS RARE; URINE RBC 1 /hpf (0-3); URINE WBC 6 /hpf (3-5)
[2017-04-17] MEDS ORDERED: PT OWN MED DRAWER 7, Y5N ONE ×5 (02:02→11:46)
[2017-04-17] MEDS: MEROPENEM 1 GM in DEXTROSE 5%-WATER - 100 ML IVPB SCH ×3 (02:07→17:01)
[2017-04-17] MEDS: HYDROmorphone HCL CARPU-JECT 1 MG/1 ML DISP.SYRIN IVPB PRN ×5 (02:19→23:51)
[2017-04-17] MEDS ORDERED: HYDROmorphone HCL CARPU-JECT 1 MG/1 ML DISP.SYRIN IVPUSH ONE (04:03)
[2017-04-17 06:06] LABS: SERUM IRON 13 ug/dL (38-169); TOTAL IRON BINDING CAPACITY 184 ug/dL (250-450); UIBC 171 ug/dL (111-343)
[2017-04-17] MEDS: HEPARIN NA (PORCINE) 5,000 UNITS/ML 1ML VIAL SQ SCH ×3 (06:13→21:51)
[2017-04-17] MEDS: PRAMIPEXOLE DIHYDROCHLORIDE 0.5 MG TABLET PO SCH ×4 (06:13→21:52)
[2017-04-17] MEDS: GABAPENTIN 100 MG CAPSULE (FP) PO SCH ×3 (06:14→21:52)
[2017-04-17] MEDS: NAPH,MB-DB/K PH,MBDB POWDER PACKET PO SCH ×3 (06:14→21:52)
[2017-04-17] MEDS: DEXTROSE 5%-NORMAL SALINE 1,000 ML IV SCH (06:19)
[2017-04-17 07:43] LABS: BASOPHIL 0.3 % (0-2.0); EOSINOPHIL 3.1 % (0-4.5); MCH 34.1 pg (25.7-33.7); MCHC 33.9 g/dl (32.0-35.9); MEAN CELL VOLUME 100.5 fl (80-96); MEAN PLT VOLUME 8.9 fl (7.5-11.1); NEUTROPHILS 72.7 % (42.8-82.8); PLATELET COUNT 171 K/MM3 (134-434); RDW 14.9 % (11.9-15.9); WHITE BLOOD COUNT 9.9 K/mm3 (4.0-10.0)
[2017-04-17 08:30] LABS: ALBUMIN 2.5 g/dl (3.4-5.0); ALK PHOS 61 U/L (45-117); ANION GAP 8 (8-16); BILIRUBIN,TOTAL 0.6 mg/dL (0.2-1.0); CALCIUM 7.4 mg/dL (8.5-10.1); CO2 25 mmol/L (21-32); CREATININE 1.1 mg/dL (0.7-1.3); GLUCOSE,RANDOM 84 mg/dL (74-106); MAGNESIUM 2.2 mg/dL (1.8-2.4); PHOSPHOROUS 2.5 mg/dL (2.5-4.9); SGOT/AST 49 U/L (15-37); SGPT/ALT 16 U/L (12-78); THYROID STIMULATING HORMONE 0.43 uIU/ml (0.358-3.74); TOT PROT 5.1 g/dl (6.4-8.2)
--- NOTE | 2017-04-17 08:56 | PN ---
Progress Note, Physician Chief Complaint: Pt is ansious; pain in lower back; no chest pain or palpitations. History of Present Illness: Patient is a 71 year old white male with a history of depression, anxiety, paroxysmal afib, Known LBBB, HTN, CKD stage 3, Nephrolithiasis(s/p R UVJ Stent) , BPH and Chronic back pain who presents with acute worsening of bilateral lower extremity pain and lower back pain. The patient reports that his chronic lower extremity pain acutely worsened earlier today and did not respond to taking 4-5 percocet prompting him to present to the ED today. Of note, he had a recent admission 03/2017 for similar complaints where he underwent a diagnostic LP and MRI which did not demonstrate etiologies of his back pain. He has had 2 laminectomies in the past that did not help resolve his pain. He has presented multiple times to our ED and OSH EDs for similar worsening of his bilateral lower extremity pain. He denies saddle anesthesia, but notes some numbness and tingling in his lower extremities. He states that he is unable to ambulate at home secondary to pain. He denies fevers, chills, SOB, chest pain, abdominal pain, or changes with urination or bowel movements. - Current Medication List Current Medications: Active Medications Albuterol/Ipratropium (Duoneb -) 1 amp NEB Q4H PRN PRN Reason: SHORTNESS OF BREATH Amlodipine Besylate (Norvasc -) 5 mg PO DAILY [facility] Carbidopa/Levodopa (Sinemet *Cr* 50/200 -) 1 combo PO 0700,1200,1700 [facility] Last Admin: 04/17/17 06:15 Dose: 1 combo Docusate Sodium (Colace -) 100 mg PO BID [facility] Last Admin: 04/16/17 21:32 Dose: Not Given Gabapentin (Neurontin -) 200 mg PO HS [facility] Last Admin: 04/16/17 21:33 Dose: 200 mg Gabapentin (Neurontin -) 100 mg PO 0600,1400 [facility] Last Admin: 04/17/17 06:14 Dose: 100 mg Heparin Sodium (Porcine) (Heparin -) 5,000 unit SQ TID [facility] Last Admin: 04/17/17 06:13 Dose: 5,000 unit Hydromorphone HCl (Dilaudid Injection -) 0.5 mg IVPB Q3H PRN PRN Reason: PAIN Last Admin: 04/17/17 06:15 Dose: 0.5 mg Vancomycin HCl 1,250 mg/ (Dextrose) 250 mls @ 125 mls/hr IVPB DAILY@1800 [facility] PRN Reason: Protocol Last Admin: 04/16/17 17:16 Dose: 125 mls/hr Meropenem 1 gm/ Dextrose 100 mls @ 100 mls/hr IVPB Q8H-IV [facility] PRN Reason: Protocol Last Admin: 04/17/17 02:07 Dose: 100 mls/hr Dextrose/Sodium Chloride (D5-Ns -) 1,000 mls @ 125 mls/hr IV ASDIR [facility] Last Admin: 04/17/17 06:19 Dose: 125 mls/hr Magnesium Hydroxide (Milk Of Magnesia -) 30 ml PO Q8H PRN PRN Reason: CONSTIPATION Metoprolol Tartrate (Lopressor -) 25 mg PO BID [facility] Last Admin: 04/16/17 21:32 Dose: 25 mg Ondansetron HCl (Zofran Injection) 4 mg IVPUSH Q6H PRN PRN Reason: NAUSEA AND/OR VOMITING Pantoprazole Sodium (Protonix -) 40 mg PO BID [facility] Last Admin: 04/16/17 21:33 Dose: 40 mg Polyethylene Glycol (Miralax (For Daily Use) -) 17 gm PO DAILY [facility] Potassium Phos/Sodium Phos (Phos-Nak Packet -) 1 packet PO TID [facility] Last Admin: 04/17/17 06:14 Dose: 1 packet Pramipexole Dihydrochloride (Mirapex -) 0.5 mg PO 0700,1200,1700 [facility] Last Admin: 04/17/17 06:13 Dose: 0.5 mg Pramipexole Dihydrochloride (Mirapex -) 0.5 mg PO HS [facility] Last Admin: 04/16/17 21:33 Dose: 0.5 mg - Objective Vital Signs: Vital Signs Temperature 99.1 F 04/17/17 06:00 Pulse Rate 86 04/17/17 06:00 Respiratory Rate 18 04/17/17 06:00 Blood Pressure 150/67 04/17/17 06:00 O2 Sat by Pulse Oximetry (%) 94 L 04/16/17 21:00 Constitutional: Yes: Anxious Eyes: Yes: WNL HENT: Yes: WNL Neck: Yes: WNL Cardiovascular: Yes: Regular Rate and Rhythm, Murmur, S1, S2 (split) Respiratory: Yes: Regular Gastrointestinal: Yes: Soft, Distention ...Rectal Exam: Yes: Deferred Genitourinary: No: Anuria Musculoskeletal: Yes: Back Pain, Muscle Weakness Extremities: Yes: Cool Edema: No Peripheral Pulses WNL: No Peripheral Pulses: Left Doralis Pedis: 1+, Right Dorsalis Pedis: 1+ Wound/Incision: Yes: Dressing Dry and Intact Neurological: Yes: Alert, Oriented, Weakness Psychiatric: Yes: Alert, Oriented Labs: CBC, BMP 04/17/17 06:30 04/17/17 06:30 INR, PTT INR 1.00 (0.82-1.09) 04/13/17 06:00 Problem List - Problems (1) BPH (benign prostatic hyperplasia) Code(s): N40.0 - BENIGN PROSTATIC HYPERPLASIA WITHOUT LOWER URINRY TRACT SYMP (2) Chronic obstructive pulmonary disease (COPD) Code(s): J44.9 - CHRONIC OBSTRUCTIVE PULMONARY DISEASE, UNSPECIFIED (3) Diverticulosis Code(s): K57.90 - DVRTCLOS OF INTEST, PART UNSP, W/O PERF OR ABSCESS W/O BLEED (4) Syncope Code(s): R55 - SYNCOPE AND COLLAPSE Qualifiers: Qualified Code(s): R55 - Syncope and collapse (5) Back pain Assessment/Plan: pain management. Physical rehabilitation. Code(s): M54.9 - DORSALGIA, UNSPECIFIED Qualifiers: Qualified Code(s): M54.5 - Low back pain (6) Depression Code(s): F32.9 - MAJOR DEPRESSIVE DISORDER, SINGLE EPISODE, UNSPECIFIED Qualifiers: Qualified Code(s): F33.0 - Major depressive disorder, recurrent, mild (7) HTN (hypertension) Assessment/Plan: On amlodipine will discontinue, as metoprolol dsoe is being increased for HR and BP. Code(s): I10 - ESSENTIAL (PRIMARY) HYPERTENSION Qualifiers: Qualified Code(s): I10 - Essential (primary) hypertension (8) Hyperlipidemia Code(s): E78.5 - HYPERLIPIDEMIA, UNSPECIFIED Qualifiers: Qualified Code(s): E78.5 - Hyperlipidemia, unspecified (9) LBBB (left bundle branch block) Code(s): I44.7 - LEFT BUNDLE-BRANCH BLOCK, UNSPECIFIED (10) SVT (supraventricular tachycardia) Assessment/Plan: metoprolol started (for systolic CHF and PSVT); increased to 50 mg tid because of continued episodes of PSVT. Holter 11/18: NSR; LBBB; PSVT; brief run of what was likely PAT. Mg repleted; maintain all electrolytes WNL. TSH WNL. Pain management. Maintain hydration; f/u anemia workup. Code(s): I47.1 - SUPRAVENTRICULAR TACHYCARDIA (11) CKD (chronic kidney disease) stage 3, GFR 30-59 ml/min Code(s): N18.3 - CHRONIC KIDNEY DISEASE, STAGE 3 (MODERATE) (12) Osteoporosis Code(s): M81.0 - AGE-RELATED OSTEOPOROSIS W/O CURRENT PATHOLOGICAL FRACTURE (13) Weakness Code(s): R53.1 - WEAKNESS (14) Systolic CHF Assessment/Plan: mildly reduced LVEF on 11/18 ECHO, with mild MR and TR. Start metoprolol; f/u BP and HR. Add lisinopril if BP remains stable; f/u BUN/Cr, electrolytes. Low-grade temp; on antibiotics. Code(s): I50.20 - UNSPECIFIED SYSTOLIC (CONGESTIVE) HEART FAILURE (15) S/P laminectomy Assessment/Plan: f/u with neurosurgeon. Code(s): Z98.890 - OTHER SPECIFIED POSTPROCEDURAL STATES (16) Atypical chest pain Assessment/Plan: hx atypical chest pain; latest stress MIBI at [facility] a little more than a year ago reportedly without ischemia (f/u report). Presently has both chest and back pain; EKG unchanged. F/u TNI serially. Code(s): R07.89 - OTHER CHEST PAIN (17) Anemia Assessment/Plan: f/u significant drop in Hb. s/p PRBCs. Code(s): D64.9 - ANEMIA, UNSPECIFIED
[2017-04-17] MEDS ORDERED: DEXTROSE 5%-NORMAL SALINE 1,000 ML IV SCH (09:15)
[2017-04-17] MEDS: DOCUSATE SODIUM 100 MG CAPSULE (FP) PO SCH ×2 (09:40→21:52)
[2017-04-17] MEDS: POLYETHYLENE GLYCOL 3350 119 GM BTL PO SCH (09:55)
[2017-04-17] MEDS: PANTOPRAZOLE 40 MG TABLET (FP) PO SCH ×2 (09:56→21:52)
[2017-04-17] MEDS ORDERED: amLODIPine BESYLATE 5 MG TABLET (FP) PO SCH (10:00)
[2017-04-17] MEDS ORDERED: METOPROLOL TARTRATE 50 MG TABLET (FP) PO ONE (10:08)
--- NOTE | 2017-04-17 10:35 | PN ---
Progress Note (short form) - Note Progress Note: Patient doing well on Telemetry floor. Reports pain is less this morning. Dressing removed and wound inspected and found to be healing very well. Dermabond and fresh dressing applied. CRUZ drainage continues to passive collection with appropriate reduction to 200 cc / 24 hours. Patient denies headaches. Was able to ambulate briefly with Physical Therapy. Will continue drainage and PT as well as pain control and plan for discharge to Rehab during the latter part of next week. All questions answered.
--- NOTE | 2017-04-17 11:29 | PN ---
Progress Note (short form) - Note Progress Note: Reports feeling a little better today. Denies CP or SOB. LBP somewhat improved. Intake & Output 04/14/17 04/15/17 04/16/17 04/17/17 23:59 23:59 23:59 23:59 Intake Total 3418 770 2185 1550 Output Total 1595 1610 2370 450 Balance 1823 -840 -185 1100 Weight 143 lb 139 lb 4.8 oz 141 lb 1.6 oz Last Vital Signs Temp Pulse Resp BP Pulse Ox 100.4 F H 86 18 125/71 94 L 04/17/17 10:00 04/17/17 10:00 04/17/17 10:00 04/17/17 10:00 04/16/17 21:00 Active Medications Albuterol/Ipratropium (Duoneb -) 1 amp NEB Q4H PRN PRN Reason: SHORTNESS OF BREATH Carbidopa/Levodopa (Sinemet *Cr* 50/200 -) 1 combo PO 0700,1200,1700 [facility] Last Admin: 04/17/17 06:15 Dose: 1 combo Docusate Sodium (Colace -) 100 mg PO BID [facility] Last Admin: 04/17/17 09:40 Dose: 100 mg Gabapentin (Neurontin -) 200 mg PO HS [facility] Last Admin: 04/16/17 21:33 Dose: 200 mg Gabapentin (Neurontin -) 100 mg PO 0600,1400 [facility] Last Admin: 04/17/17 06:14 Dose: 100 mg Heparin Sodium (Porcine) (Heparin -) 5,000 unit SQ TID [facility] Last Admin: 04/17/17 06:13 Dose: 5,000 unit Hydromorphone HCl (Dilaudid Injection -) 0.5 mg IVPB Q3H PRN PRN Reason: PAIN Last Admin: 04/17/17 06:15 Dose: 0.5 mg Vancomycin HCl 1,250 mg/ (Dextrose) 250 mls @ 125 mls/hr IVPB DAILY@1800 [facility] PRN Reason: Protocol Last Admin: 04/16/17 17:16 Dose: 125 mls/hr Meropenem 1 gm/ Dextrose 100 mls @ 100 mls/hr IVPB Q8H-IV [facility] PRN Reason: Protocol Last Admin: 04/17/17 11:05 Dose: 100 mls/hr Dextrose/Sodium Chloride (D5-Ns -) 1,000 mls @ 50 mls/hr IV ASDIR [facility] Last Admin: 04/17/17 09:30 Dose: 50 mls/hr Magnesium Hydroxide (Milk Of Magnesia -) 30 ml PO Q8H PRN PRN Reason: CONSTIPATION Metoprolol Tartrate (Lopressor -) 50 mg PO TID [facility] Ondansetron HCl (Zofran Injection) 4 mg IVPUSH Q6H PRN PRN Reason: NAUSEA AND/OR VOMITING Pantoprazole Sodium (Protonix -) 40 mg PO BID [facility] Last Admin: 04/17/17 09:56 Dose: 40 mg Polyethylene Glycol (Miralax (For Daily Use) -) 17 gm PO DAILY [facility] Last Admin: 04/17/17 09:55 Dose: 17 grams Potassium Phos/Sodium Phos (Phos-Nak Packet -) 1 packet PO BID [facility] Last Admin: 04/17/17 09:56 Dose: 1 packet Pramipexole Dihydrochloride (Mirapex -) 0.5 mg PO 0700,1200,1700 [facility] Last Admin: 04/17/17 06:13 Dose: 0.5 mg Pramipexole Dihydrochloride (Mirapex -) 0.5 mg PO HS [facility] Last Admin: 04/16/17 21:33 Dose: 0.5 mg Constitutional: Yes: Awake and alert. NAD Eyes: Yes: WNL HENT: Yes: WNL Neck: Yes: WNL Cardiovascular: Yes: Regular Rate and Rhythm, S1, S2 Respiratory: Yes: CTA Bilaterally Gastrointestinal: Yes: Normal Bowel Sounds, Soft Extremities: Yes: Improving post-op changes Edema: No Labs: Laboratory Results - last 24 hr 04/13/17 04/16/17 04/16/17 13:13 08:00 22:00 WBC RBC Hgb Hct MCV MCH MCHC RDW Plt Count MPV Neutrophils % Lymphocytes % Monocytes % Eosinophils % Basophils % Sodium Potassium Chloride Carbon Dioxide Anion Gap BUN Creatinine Creat Clearance w eGFR Random Glucose Calcium Phosphorus Magnesium Iron 13 L TIBC 184 L Iron Saturation 7 L Total Bilirubin AST ALT Alkaline Phosphatase Total Protein Albumin TSH Urine Color Ltyellow Urine Appearance Clear Urine pH 7.0 D Ur Specific [place] 1.020 Urine Protein 1+ H Urine Glucose (UA) Negative Urine Ketones Negative Urine Blood Negative Urine Nitrite Negative Urine Bilirubin Negative Urine Urobilinogen Negative Urine RBC 1 Urine WBC 6 Ur Epithelial Cells Rare Hyaline Casts 1 Urine Mucus Rare Blood Type O NEGATIVE Antibody Screen Negative Crossmatch IS Only See Detail 04/17/17 04/17/17 06:30 06:30 WBC 9.9 RBC 2.27 L Hgb 7.7 L Hct 22.8 L MCV 100.5 H MCH 34.1 H MCHC 33.9 RDW 14.9 Plt Count 171 MPV 8.9 Neutrophils % 72.7 Lymphocytes % 15.5 D Monocytes % 8.4 Eosinophils % 3.1 D Basophils % 0.3 Sodium 139 Potassium 3.7 Chloride 106 Carbon Dioxide 25 Anion Gap 8 BUN 16 Creatinine 1.1 Creat Clearance w eGFR > 60 Random Glucose 84 Calcium 7.4 L Phosphorus 2.5 D Magnesium 2.2 Iron TIBC Iron Saturation Total Bilirubin 0.6 D AST 49 H ALT 16 D Alkaline Phosphatase 61 D Total Protein 5.1 L Albumin 2.5 L TSH 0.43 D Urine Color Urine Appearance Urine pH Ur Specific [place] Urine Protein Urine Glucose (UA) Urine Ketones Urine Blood Urine Nitrite Urine Bilirubin Urine Urobilinogen Urine RBC Urine WBC Ur Epithelial Cells Hyaline Casts Urine Mucus Blood Type Antibody Screen Crossmatch IS Only Problem List - Problems (1) Chronic obstructive pulmonary disease (COPD) Code(s): J44.9 - CHRONIC OBSTRUCTIVE PULMONARY DISEASE, UNSPECIFIED (2) Lower extremity pain Code(s): M79.606 - PAIN IN LEG, UNSPECIFIED Qualifiers: Laterality: bilateral Qualified Code(s): M79.604 - Pain in right leg (3) Carotid stenosis Code(s): I65.29 - OCCLUSION AND STENOSIS OF UNSPECIFIED CAROTID ARTERY (4) HTN (hypertension) Code(s): I10 - ESSENTIAL (PRIMARY) HYPERTENSION Qualifiers: Hypertension type: essential hypertension Qualified Code(s): I10 - Essential (primary) hypertension (5) Afib Code(s): I48.91 - UNSPECIFIED ATRIAL FIBRILLATION (6) CKD (chronic kidney disease) stage 3, GFR 30-59 ml/min Code(s): N18.3 - CHRONIC KIDNEY DISEASE, STAGE 3 (MODERATE) (7) BPH (benign prostatic hyperplasia) Code(s): N40.0 - BENIGN PROSTATIC HYPERPLASIA WITHOUT LOWER URINRY TRACT SYMP (8) Back pain Code(s): M54.9 - DORSALGIA, UNSPECIFIED Qualifiers: Back pain location: low back pain Chronicity: chronic Back pain laterality: bilateral Sciatica presence: unspecified whether sciatica present Qualified Code(s): M54.5 - Low back pain Assessment/Plan Pulmonary HTN COPD Pain control Incentive Spirometry O2 as needed OOB to chair VTE prophylaxis PT Dr Yoo
[2017-04-17] MEDS: MAGNESIUM HYDROX 2400MG/30ML ORAL SUSPENSION 30 ML CUP PO PRN (11:51)
[2017-04-17] MEDS: METOPROLOL TARTRATE 50 MG TABLET (FP) PO SCH ×2 (14:33→21:52)
--- NOTE | 2017-04-17 16:02 | PN ---
Progress Note, Physician History of Present Illness: patient continues to spike fevers feels better today pain less - Current Medication List Current Medications: Active Medications Albuterol/Ipratropium (Duoneb -) 1 amp NEB Q4H PRN PRN Reason: SHORTNESS OF BREATH Carbidopa/Levodopa (Sinemet *Cr* 50/200 -) 1 combo PO 0700,1200,1700 [facility] Last Admin: 04/17/17 11:49 Dose: 1 combo Docusate Sodium (Colace -) 100 mg PO BID [facility] Last Admin: 04/17/17 09:40 Dose: 100 mg Gabapentin (Neurontin -) 200 mg PO HS [facility] Last Admin: 04/16/17 21:33 Dose: 200 mg Gabapentin (Neurontin -) 100 mg PO 0600,1400 [facility] Last Admin: 04/17/17 14:34 Dose: 100 mg Heparin Sodium (Porcine) (Heparin -) 5,000 unit SQ TID [facility] Last Admin: 04/17/17 14:32 Dose: 5,000 unit Hydromorphone HCl (Dilaudid Injection -) 0.5 mg IVPB Q3H PRN PRN Reason: PAIN Last Admin: 04/17/17 11:49 Dose: 0.5 mg Vancomycin HCl 1,250 mg/ (Dextrose) 250 mls @ 125 mls/hr IVPB DAILY@1800 [facility] PRN Reason: Protocol Last Admin: 04/16/17 17:16 Dose: 125 mls/hr Meropenem 1 gm/ Dextrose 100 mls @ 100 mls/hr IVPB Q8H-IV [facility]IENA PRN Reason: Protocol Last Admin: 04/17/17 11:05 Dose: 100 mls/hr Dextrose/Sodium Chloride (D5-Ns -) 1,000 mls @ 50 mls/hr IV ASDIR [facility] Last Admin: 04/17/17 09:30 Dose: 50 mls/hr Magnesium Hydroxide (Milk Of Magnesia -) 30 ml PO Q8H PRN PRN Reason: CONSTIPATION Last Admin: 04/17/17 11:51 Dose: 30 ml Metoprolol Tartrate (Lopressor -) 50 mg PO TID [facility] Last Admin: 04/17/17 14:33 Dose: 50 mg Ondansetron HCl (Zofran Injection) 4 mg IVPUSH Q6H PRN PRN Reason: NAUSEA AND/OR VOMITING Pantoprazole Sodium (Protonix -) 40 mg PO BID [facility] Last Admin: 04/17/17 09:56 Dose: 40 mg Polyethylene Glycol (Miralax (For Daily Use) -) 17 gm PO DAILY [facility] Last Admin: 04/17/17 09:55 Dose: 17 grams Potassium Phos/Sodium Phos (Phos-Nak Packet -) 1 packet PO BID [facility] Last Admin: 04/17/17 09:56 Dose: 1 packet Pramipexole Dihydrochloride (Mirapex -) 0.5 mg PO 0700,1200,1700 [facility] Last Admin: 04/17/17 11:48 Dose: 0.5 mg Pramipexole Dihydrochloride (Mirapex -) 0.5 mg PO HS [facility] Last Admin: 04/16/17 21:33 Dose: 0.5 mg - Objective Vital Signs: Vital Signs Temperature 100.4 F H 04/17/17 10:00 Pulse Rate 86 04/17/17 10:00 Respiratory Rate 18 04/17/17 10:00 Blood Pressure 125/71 04/17/17 10:00 O2 Sat by Pulse Oximetry (%) 95 04/17/17 09:00 Constitutional: Yes: No Distress, Calm Cardiovascular: Yes: Regular Rate and Rhythm Respiratory: Yes: Regular, CTA Bilaterally Gastrointestinal: Yes: Normal Bowel Sounds, Soft Musculoskeletal: Yes: Other Extremities: Yes: Other Wound/Incision: Yes: Dressing Dry and Intact, Other Neurological: Yes: Alert, Oriented Psychiatric: Yes: Alert, Oriented Labs: CBC, BMP 04/17/17 06:30 04/17/17 06:30 INR, PTT INR 1.00 (0.82-1.09) 04/13/17 06:00 Assessment/Plan Problem List - Problems (1) Chronic obstructive pulmonary disease (COPD) Code(s): J44.9 - CHRONIC OBSTRUCTIVE PULMONARY DISEASE, UNSPECIFIED (2) Lower extremity pain Code(s): M79.606 - PAIN IN LEG, UNSPECIFIED Qualifiers: Laterality: bilateral Qualified Code(s): M79.604 - Pain in right leg (3) Carotid stenosis Code(s): I65.29 - OCCLUSION AND STENOSIS OF UNSPECIFIED CAROTID ARTERY (4) HTN (hypertension) Code(s): I10 - ESSENTIAL (PRIMARY) HYPERTENSION Qualifiers: Hypertension type: essential hypertension Qualified Code(s): I10 - Essential (primary) hypertension (5) Afib Code(s): I48.91 - UNSPECIFIED ATRIAL FIBRILLATION (6) CKD (chronic kidney disease) stage 3, GFR 30-59 ml/min Code(s): N18.3 - CHRONIC KIDNEY DISEASE, STAGE 3 (MODERATE) (7) BPH (benign prostatic hyperplasia) Code(s): N40.0 - BENIGN PROSTATIC HYPERPLASIA WITHOUT LOWER URINRY TRACT SYMP (8) Back pain Code(s): M54.9 - DORSALGIA, UNSPECIFIED Qualifiers: Back pain location: low back pain Chronicity: chronic Back pain laterality: bilateral Sciatica presence: unspecified whether sciatica present Qualified Code(s): M54.5 - Low back pain 9 uti plan cx report noted will stop vanco 'continue meropenam incentive sudhir d/w surgeon wound is good accordingly if patient continues to spike inspite of abx we will do imaging studies and revisit the wound site rest as per primary team
--- NOTE | 2017-04-17 17:35 | PN ---
Physical Exam: SUBJECTIVE: Patient seen and examined. OBJECTIVE: Vital Signs Period Temp Pulse Resp BP Sys/Suazo Pulse Ox Last 24 Hr 98.3 F-100.4 F 83-89 18-18 103-150/63-71 94-95 GENERAL: The patient is awake, alert, and fully oriented, in no acute distress. HEAD: Normal with no signs of trauma. EYES: PERRL, extraocular movements intact, sclera anicteric, conjunctiva clear. No ptosis. LUNGS: Breath sounds equal, clear to auscultation bilaterally, no wheezes, no crackles, no accessory muscle use. HEART: Regular rate and rhythm, S1, S2 without murmur, rub or gallop. ABDOMEN: Soft, nontender, nondistended, normoactive bowel sounds, no guarding, no rebound, EXTREMITIES: 2+ pulses, warm, well-perfused, no edema. NEUROLOGICAL: Cranial nerves II through XII grossly intact. Normal speech, gait not observed. Laboratory Results - last 24 hr 04/16/17 04/16/17 04/17/17 08:00 22:00 06:30 WBC RBC Hgb Hct MCV MCH MCHC RDW Plt Count MPV Neutrophils % Lymphocytes % Monocytes % Eosinophils % Basophils % Sodium 139 Potassium 3.7 Chloride 106 Carbon Dioxide 25 Anion Gap 8 BUN 16 Creatinine 1.1 Creat Clearance w eGFR > 60 Random Glucose 84 Calcium 7.4 L Phosphorus 2.5 D Magnesium 2.2 Iron 13 L TIBC 184 L Iron Saturation 7 L Total Bilirubin 0.6 D AST 49 H ALT 16 D Alkaline Phosphatase 61 D Total Protein 5.1 L Albumin 2.5 L TSH 0.43 D Urine Color Ltyellow Urine Appearance Clear Urine pH 7.0 D Ur Specific [place] 1.020 Urine Protein 1+ H Urine Glucose (UA) Negative Urine Ketones Negative Urine Blood Negative Urine Nitrite Negative Urine Bilirubin Negative Urine Urobilinogen Negative Urine RBC 1 Urine WBC 6 Ur Epithelial Cells Rare Hyaline Casts 1 Urine Mucus Rare 04/17/17 06:30 WBC 9.9 RBC 2.27 L Hgb 7.7 L Hct 22.8 L MCV 100.5 H MCH 34.1 H MCHC 33.9 RDW 14.9 Plt Count 171 MPV 8.9 Neutrophils % 72.7 Lymphocytes % 15.5 D Monocytes % 8.4 Eosinophils % 3.1 D Basophils % 0.3 Sodium Potassium Chloride Carbon Dioxide Anion Gap BUN Creatinine Creat Clearance w eGFR Random Glucose Calcium Phosphorus Magnesium Iron TIBC Iron Saturation Total Bilirubin AST ALT Alkaline Phosphatase Total Protein Albumin TSH Urine Color Urine Appearance Urine pH Ur Specific [place] Urine Protein Urine Glucose (UA) Urine Ketones Urine Blood Urine Nitrite Urine Bilirubin Urine Urobilinogen Urine RBC Urine WBC Ur Epithelial Cells Hyaline Casts Urine Mucus Active Medications Generic Name Dose Route Start Last Admin Trade Name Freq PRN Reason Stop Dose Admin Albuterol/Ipratropium 1 amp 04/16/17 16:18 Duoneb - NEB Q4H PRN SHORTNESS OF BREATH Carbidopa/Levodopa 1 combo 04/16/17 17:00 04/17/17 16:59 Sinemet *Cr* 50/200 - PO 1 combo 0700,1200,1700 [facility] Administration Docusate Sodium 100 mg 04/16/17 22:00 04/17/17 09:40 Colace - PO 100 mg BID [facility] Administration Gabapentin 200 mg 04/16/17 22:00 04/16/17 21:33 Neurontin - PO 200 mg HS [facility] Administration Gabapentin 100 mg 04/17/17 06:00 04/17/17 14:34 Neurontin - PO 100 mg 0600,1400 [facility] Administration Heparin Sodium (Porcine) 5,000 unit 04/16/17 22:00 04/17/17 14:32 Heparin - SQ 5,000 unit TID [facility] Administration Hydromorphone HCl 0.5 mg 04/16/17 16:18 04/17/17 11:49 Dilaudid Injection - IVPB 0.5 mg Q3H PRN Administration PAIN Meropenem 1 gm/ Dextrose 100 mls @ 100 mls/hr 04/16/17 14:00 04/17/17 17:01 IVPB 100 mls/hr Q8H-IV [facility] Administration Protocol Dextrose/Sodium Chloride 1,000 mls @ 50 mls/hr 04/17/17 09:15 04/17/17 09:30 D5-Ns - IV 50 mls/hr ASDIR [facility] Administration Magnesium Hydroxide 30 ml 04/16/17 16:18 04/17/17 11:51 Milk Of Magnesia - PO 30 ml Q8H PRN Administration CONSTIPATION Metoprolol Tartrate 50 mg 04/17/17 14:00 04/17/17 14:33 Lopressor - PO 50 mg TID [facility] Administration Ondansetron HCl 4 mg 04/16/17 16:18 Zofran Injection IVPUSH Q6H PRN NAUSEA AND/OR VOMITING Pantoprazole Sodium 40 mg 04/16/17 22:00 04/17/17 09:56 Protonix - PO 40 mg BID [facility] Administration Polyethylene Glycol 17 gm 04/17/17 10:00 04/17/17 09:55 Miralax (For Daily Use) - PO 17 grams DAILY [facility] Administration Potassium Phos/Sodium Phos 1 packet 04/17/17 10:00 04/17/17 09:56 Phos-Nak Packet - PO 1 packet BID [facility] Administration Pramipexole Dihydrochloride 0.5 mg 04/16/17 17:00 04/17/17 16:58 Mirapex - PO 0.5 mg 0700,1200,1700 [facility] Administration Pramipexole Dihydrochloride 0.5 mg 04/16/17 22:00 04/16/17 21:33 Mirapex - PO 0.5 mg HS [facility] Administration ASSESSMENT/PLAN 71 year-old male with PMH significant for HTN, HLD, proxysmal afib, pulmonary HTN, COPD, CKD stage 3, depression, anxiety, and spinal degenerative joint disease with chronic back and b/l leg pain. PVST --continued episodes of PSVT, increase metoprolol 50mg TID per cardiology Abdominal pain Ileus --04/15 CTAP was suggestive of ileus; 04/16 plain film showed nonobstructive gas pattern and no small bowel dilation --clears OK Fever --Yesterday febrile to 100.5, today Tm 100.0 --per ID, continue empiric meropenem (day #2) UTI --urine culture grew staph epi >100k --Vanc x 2 doses then stopped Multilevel degenerative and facet joint disease s/p T12-S2 laminectomies/fusion/ instrumentation/decompression on 04/13/17 --dressing changed today by surgeon; CRUZ drain to passive collection ~200cc/ 24 hours --pain well-managed, on Tylenol Parkinson's disease --continue carbidopa/levodopa, pramipexole Hypertension --normotensive --recently taken off cardizem and lisinopril due to orthostatic hypotension and syncope --continue amlodipine; also on metoprolol for PSVT Hyperlipidemia --not on meds Paroxysmal atrial fibrillation --off cardizem due to recent syncopal episodes --now on metoprolol --not on a/c, patient choice COPD --duonebs PRN Acute on chronic renal insufficiency --resolved Depression/anxiety --valium PRN Fluids: PO intake adequate Electrolytes: replete as indicated Nutrition: full liquids; advance as tolerated DVT prophylaxis: subq heparin PT evaluation Daily PT Dispo: continues to require inpatient care. Full code. Visit type - Emergency Visit Emergency Visit: Yes ED Registration Date: 04/11/17 Care time: The patient presented to the Emergency Department on the above date and was hospitalized for further evaluation of their emergent condition. - New Patient This patient is new to me today: No - Critical Care Critical Care patient: No
[2017-04-17] MEDS ORDERED: HYDROmorphone HCL CARPU-JECT 1 MG/1 ML DISP.SYRIN IVPB ONE (19:46)
--- NOTE | 2017-04-17 21:13 | PN ---
Progress Note (short form) - Note Progress Note: NEUROLOGY FOLLOW-UP: Events reviewed, patient examined. Please see my consult of 04/12/17 for discussion of this 71 yo man with chronic nocturnal leg pain, refractory to LS Sx x 2 in the past, with slowly progressive gait dysfunction due to Parkinson's disease and NPH, admitted with exacerbation due to UTI. S/P LS Sx on 04/13. Unclear what the extent of surgery was since there is no operative report found in the chart. Now on antibiotics for fevers. Patient c/o increased , throbbing and shooting pains in both legs since the surgery. Exam: Normal strength. + cogwheel rigidity Depressed LE reflexes. Sensation intact. IMP: Parkinson's disease. Chronic leg pains due to RLS. Possible NPH SUGGEST: Cont narcotics for post-op pain. Cont. Sinemet CR 50/200 TID @ 7, 12, and 5. Cont Pramipexole .5 QID @ 7, 12, 5, and 10. Mobilize OO Bed to chair and gait with walker SIRI. Check Fe++, TIBC and Ferritin. Thank you very much, Gerald Quan MD
[2017-04-18] MEDS ORDERED: CYCLOBENZAPRINE HCL 5 MG TABLET PO ONE (01:06)
[2017-04-18] MEDS: MEROPENEM 1 GM in DEXTROSE 5%-WATER - 100 ML IVPB SCH ×3 (01:29→17:03)
[2017-04-18] MEDS ORDERED: CYCLOBENZAPRINE HCL 10 MG TABLET (FP) PO ONE (01:30)
[2017-04-18] MEDS: HYDROmorphone HCL CARPU-JECT 1 MG/1 ML DISP.SYRIN IVPB PRN ×5 (02:55→21:32)
[2017-04-18] MEDS ORDERED: PT OWN MED DRAWER 7, Y5N ONE ×5 (06:09→17:01)
[2017-04-18] MEDS: HEPARIN NA (PORCINE) 5,000 UNITS/ML 1ML VIAL SQ SCH ×3 (06:13→21:32)
[2017-04-18] MEDS: PRAMIPEXOLE DIHYDROCHLORIDE 0.5 MG TABLET PO SCH ×4 (06:14→21:32)
[2017-04-18] MEDS: GABAPENTIN 100 MG CAPSULE (FP) PO SCH ×2 (06:14→13:20)
[2017-04-18] MEDS: METOPROLOL TARTRATE 50 MG TABLET (FP) PO SCH ×3 (06:14→21:32)
[2017-04-18 08:07] LABS: HEMATOCRIT 22.8 % (37.5-51.0)
--- NOTE | 2017-04-18 09:02 | PN ---
Progress Note (short form) - Note Progress Note: Subjective: The patient was seen and examined at the bedside, he appears comfortable, however is complaining of lower back pain. Current Medications Generic Name Dose Route Start Last Admin Trade Name Freq PRN Reason Stop Dose Admin Albuterol/Ipratropium 1 amp 04/16/17 16:18 Duoneb - NEB Q4H PRN SHORTNESS OF BREATH Carbidopa/Levodopa 1 combo 04/16/17 17:00 04/18/17 06:14 Sinemet *Cr* 50/200 - PO 1 combo 0700,1200,1700 [facility]IE[facility] Administration Docusate Sodium 100 mg 04/16/17 22:00 04/17/17 21:52 Colace - PO 100 mg BID [facility] Administration Gabapentin 200 mg 04/16/17 22:00 04/17/17 21:52 Neurontin - PO 200 mg HS [facility]IENA Administration Gabapentin 100 mg 04/17/17 06:00 04/18/17 06:14 Neurontin - PO 100 mg 0600,1400 [facility] Administration Heparin Sodium (Porcine) 5,000 unit 04/16/17 22:00 04/18/17 06:13 Heparin - SQ 5,000 unit TID [facility] Administration Hydromorphone HCl 0.5 mg 04/16/17 16:18 04/18/17 06:13 Dilaudid Injection - IVPB 0.5 mg Q3H PRN Administration PAIN Meropenem 1 gm/ Dextrose 100 mls @ 100 mls/hr 04/16/17 14:00 04/18/17 01:29 IVPB 100 mls/hr Q8H-IV [facility]IENA Administration Protocol Magnesium Hydroxide 30 ml 04/16/17 16:18 04/17/17 11:51 Milk Of Magnesia - PO 30 ml Q8H PRN Administration CONSTIPATION Metoprolol Tartrate 50 mg 04/17/17 14:00 04/18/17 06:14 Lopressor - PO 50 mg TID [facility] Administration Ondansetron HCl 4 mg 04/16/17 16:18 Zofran Injection IVPUSH Q6H PRN NAUSEA AND/OR VOMITING Pantoprazole Sodium 40 mg 04/16/17 22:00 04/17/17 21:52 Protonix - PO 40 mg BID [facility] Administration Polyethylene Glycol 17 gm 04/17/17 10:00 04/17/17 09:55 Miralax (For Daily Use) - PO 17 grams DAILY [facility] Administration Potassium Phos/Sodium Phos 1 packet 04/17/17 10:00 04/17/17 21:52 Phos-Nak Packet - PO 1 packet BID [facility] Administration Pramipexole Dihydrochloride 0.5 mg 04/16/17 17:00 04/18/17 06:14 Mirapex - PO 0.5 mg 0700,1200,1700 [facility] Administration Pramipexole Dihydrochloride 0.5 mg 04/16/17 22:00 04/17/17 21:52 Mirapex - PO 0.5 mg HS [facility]IENA Administration Objective: Vital Signs Period Temp Pulse Resp BP Sys/Suazo Pulse Ox Last 24 Hr 99.1 F-100.4 F 72-87 18-20 104-147/41-75 95-97 Physical Exam: General: NAD, A&Ox3 Lungs: CTA bilaterally Heart: RRR, S1S2 Abd: Soft, non-tender, non-distended. Normoactive bowel sounds Ext: Warm, well-perfused 2+ DP/PT bilaterally Skin: Lower back dressing not visualized, patient refused to roll over CBCD WBC 9.9 K/mm3 (4.0-10.0) 04/17/17 06:30 RBC 2.27 M/mm3 (4.00-5.60) L 04/17/17 06:30 Hgb 7.7 GM/dL (11.7-16.9) L 04/17/17 06:30 Hct 22.8 % (37.5-51.0) L 04/17/17 06:30 MCV 100.5 fl (80-96) H 04/17/17 06:30 MCHC 33.9 g/dl (32.0-35.9) 04/17/17 06:30 RDW 14.9 % (11.9-15.9) 04/17/17 06:30 Plt Count 171 K/MM3 (134-434) 04/17/17 06:30 MPV 8.9 fl (7.5-11.1) 04/17/17 06:30 CMP Sodium 139 mmol/L (136-145) 04/17/17 06:30 Potassium 3.7 mmol/L (3.5-5.1) 04/17/17 06:30 Chloride 106 mmol/L (98-107) 04/17/17 06:30 Carbon Dioxide 25 mmol/L (21-32) 04/17/17 06:30 Anion Gap 8 (8-16) 04/17/17 06:30 BUN 16 mg/dL (7-18) 04/17/17 06:30 Creatinine 1.1 mg/dL (0.7-1.3) 04/17/17 06:30 Creat Clearance w eGFR > 60 (>60) 04/17/17 06:30 Random Glucose 84 mg/dL (74-106) 04/17/17 06:30 Calcium 7.4 mg/dL (8.5-10.1) L 04/17/17 06:30 Total Bilirubin 0.6 mg/dL (0.2-1.0) D 04/17/17 06:30 AST 49 U/L (15-37) H 04/17/17 06:30 ALT 16 U/L (12-78) D 04/17/17 06:30 Alkaline Phosphatase 61 U/L (45-117) D 04/17/17 06:30 Total Protein 5.1 g/dl (6.4-8.2) L 04/17/17 06:30 Albumin 2.5 g/dl (3.4-5.0) L 04/17/17 06:30 CARDIAC ENZYMES Creatine Kinase 944 IU/L (39-308) H 04/15/17 17:30 Troponin I < 0.02 ng/ml (0.00-0.05) 04/16/17 05:00 Microbiology 04/15/17 17:30 Blood - Peripheral Venous Blood Culture - Preliminary NO GROWTH OBTAINED AFTER 48 HOURS, INCUBATION TO CONTINUE FOR 3 DAYS. 04/15/17 17:30 Blood - Peripheral Venous Blood Culture - Preliminary NO GROWTH OBTAINED AFTER 48 HOURS, INCUBATION TO CONTINUE FOR 3 DAYS. 04/15/17 17:15 Urine - Urine Medrano Urine Culture - Final NO GROWTH OBTAINED 04/11/17 15:40 Urine - Urine Clean Catch Urine Culture - Final Staphylococcus Epidermidis Assessment: This is a 71 year old male with PMHx of HTN, hyperlipidemia, paroxysmal a.fib, pulmonary HTN, COPD, depression, anxiety, CKD stage 3, chronic back and b/l leg pain who presented to the ED with worsening back and lower extremity pain Plan: 1) Acute on chronic b/l lower extremity pain: - S/p laminectomy with fusion T12-S2, repair pseudo menigoceal on 04/13 - Pain management - Appreciate neurology consult - Appreciate Dr. Queen consult 2) PSVT - Continue Metoprolol 50mg po tid 3) Fever: - Tmax 100.4 - UTI: urine with staph epi (received Vanco x2 doses) - Now on empiric Meropenem for fevers 3) Parkinson's disease: - Continue Sinemet Cr 25/100 to tid - Continue Pramipexole to 0.25mg po qid 2) : Left testicular pain - Resolved - Scrotal ultrasound with left hydrocele CKD - Cr at baseline - Continue to monitor 3) Paroxysmal a.fib - Not on cardizem anymore 2/2 prior syncopal episodes - Patient is refusing anticoagulation for paf HTN - Continue Metoprolol 5) Pulmonary: COPD - Stable 6) F/E/N: - Sodium controlled diet - Monitor electrolytes 7) Prophylaxis: - Heparin 5,000u sq tid - PT daily 8) Dispo: - Requires continued inpatient care - Will need SNF once cleared by surgery CODE STATUS: FULL CODE Visit type - Emergency Visit Emergency Visit: Yes ED Registration Date: 04/11/17 Care time: The patient presented to the Emergency Department on the above date and was hospitalized for further evaluation of their emergent condition. - New Patient This patient is new to me today: No - Critical Care Critical Care patient: No
[2017-04-18] MEDS: PANTOPRAZOLE 40 MG TABLET (FP) PO SCH ×2 (09:32→21:33)
--- NOTE | 2017-04-18 09:32 | PN ---
Progress Note, Physician Chief Complaint: Pt is anxious; pain in lower back; no chest pain or palpitations. Says that even passive physical rehabilitation gives him pain. Depressed. History of Present Illness: Patient is a 71 year old white male with a history of depression, anxiety, paroxysmal afib, Known LBBB, HTN, CKD stage 3, Nephrolithiasis(s/p R UVJ Stent) , BPH and Chronic back pain who presents with acute worsening of bilateral lower extremity pain and lower back pain. The patient reports that his chronic lower extremity pain acutely worsened earlier today and did not respond to taking 4-5 percocet prompting him to present to the ED today. Of note, he had a recent admission 03/2017 for similar complaints where he underwent a diagnostic LP and MRI which did not demonstrate etiologies of his back pain. He has had 2 laminectomies in the past that did not help resolve his pain. He has presented multiple times to our ED and OSH EDs for similar worsening of his bilateral lower extremity pain. He denies saddle anesthesia, but notes some numbness and tingling in his lower extremities. He states that he is unable to ambulate at home secondary to pain. He denies fevers, chills, SOB, chest pain, abdominal pain, or changes with urination or bowel movements. - Current Medication List Current Medications: Active Medications Albuterol/Ipratropium (Duoneb -) 1 amp NEB Q4H PRN PRN Reason: SHORTNESS OF BREATH Carbidopa/Levodopa (Sinemet *Cr* 50/200 -) 1 combo PO 0700,1200,1700 [facility] Last Admin: 04/18/17 06:14 Dose: 1 combo Docusate Sodium (Colace -) 100 mg PO BID [facility] Last Admin: 04/17/17 21:52 Dose: 100 mg Gabapentin (Neurontin -) 200 mg PO HS [facility] Last Admin: 04/17/17 21:52 Dose: 200 mg Gabapentin (Neurontin -) 100 mg PO 0600,1400 [facility] Last Admin: 04/18/17 06:14 Dose: 100 mg Heparin Sodium (Porcine) (Heparin -) 5,000 unit SQ TID [facility] Last Admin: 04/18/17 06:13 Dose: 5,000 unit Hydromorphone HCl (Dilaudid Injection -) 0.5 mg IVPB Q3H PRN PRN Reason: PAIN Last Admin: 04/18/17 06:13 Dose: 0.5 mg Meropenem 1 gm/ Dextrose 100 mls @ 100 mls/hr IVPB Q8H-IV [facility] PRN Reason: Protocol Last Admin: 04/18/17 01:29 Dose: 100 mls/hr Magnesium Hydroxide (Milk Of Magnesia -) 30 ml PO Q8H PRN PRN Reason: CONSTIPATION Last Admin: 04/17/17 11:51 Dose: 30 ml Metoprolol Tartrate (Lopressor -) 50 mg PO TID [facility] Last Admin: 04/18/17 06:14 Dose: 50 mg Ondansetron HCl (Zofran Injection) 4 mg IVPUSH Q6H PRN PRN Reason: NAUSEA AND/OR VOMITING Pantoprazole Sodium (Protonix -) 40 mg PO BID [facility] Last Admin: 04/17/17 21:52 Dose: 40 mg Polyethylene Glycol (Miralax (For Daily Use) -) 17 gm PO DAILY [facility] Last Admin: 04/17/17 09:55 Dose: 17 grams Potassium Phos/Sodium Phos (Phos-Nak Packet -) 1 packet PO BID [facility] Last Admin: 04/17/17 21:52 Dose: 1 packet Pramipexole Dihydrochloride (Mirapex -) 0.5 mg PO 0700,1200,1700 [facility] Last Admin: 04/18/17 06:14 Dose: 0.5 mg Pramipexole Dihydrochloride (Mirapex -) 0.5 mg PO HS [facility] Last Admin: 04/17/17 21:52 Dose: 0.5 mg - Objective Vital Signs: Vital Signs Temperature 99.4 F 04/18/17 05:56 Pulse Rate 80 04/18/17 05:56 Respiratory Rate 20 04/18/17 05:56 Blood Pressure 147/71 04/18/17 05:56 O2 Sat by Pulse Oximetry (%) 97 04/17/17 21:00 Constitutional: Yes: Anxious Eyes: Yes: WNL HENT: Yes: WNL Neck: Yes: WNL Cardiovascular: Yes: S1, S2 (split), S4 Respiratory: Yes: Regular Gastrointestinal: Yes: Soft ...Rectal Exam: Yes: Deferred Genitourinary: Yes: Anuria Musculoskeletal: Yes: Muscle Weakness Extremities: Yes: Cool Edema: No Peripheral Pulses WNL: No Peripheral Pulses: Left Doralis Pedis: 1+, Right Dorsalis Pedis: 1+ Neurological: Yes: Alert, Oriented ...Motor Strength: LLE Psychiatric: Yes: Alert, Oriented, Other (anxiety/depression) Labs: CBC, BMP 04/17/17 06:30 04/17/17 06:30 INR, PTT INR 1.00 (0.82-1.09) 04/13/17 06:00 Problem List - Problems (1) BPH (benign prostatic hyperplasia) Code(s): N40.0 - BENIGN PROSTATIC HYPERPLASIA WITHOUT LOWER URINRY TRACT SYMP (2) Chronic obstructive pulmonary disease (COPD) Code(s): J44.9 - CHRONIC OBSTRUCTIVE PULMONARY DISEASE, UNSPECIFIED (3) Diverticulosis Code(s): K57.90 - DVRTCLOS OF INTEST, PART UNSP, W/O PERF OR ABSCESS W/O BLEED (4) Syncope Code(s): R55 - SYNCOPE AND COLLAPSE Qualifiers: Qualified Code(s): R55 - Syncope and collapse (5) Back pain Assessment/Plan: pain management. Physical rehabilitation. Code(s): M54.9 - DORSALGIA, UNSPECIFIED Qualifiers: Qualified Code(s): M54.5 - Low back pain (6) Depression Code(s): F32.9 - MAJOR DEPRESSIVE DISORDER, SINGLE EPISODE, UNSPECIFIED Qualifiers: Qualified Code(s): F33.0 - Major depressive disorder, recurrent, mild (7) HTN (hypertension) Assessment/Plan: On amlodipine will discontinue, as metoprolol dsoe is being increased for HR and BP. F/u BMP, electgrolytes; consider restartin lisinopril (reduced LVEF; HTN). Code(s): I10 - ESSENTIAL (PRIMARY) HYPERTENSION Qualifiers: Qualified Code(s): I10 - Essential (primary) hypertension (8) Hyperlipidemia Assessment/Plan: f/u lipids (total cholesterol 151 mg/dL on 05/2016). Code(s): E78.5 - HYPERLIPIDEMIA, UNSPECIFIED Qualifiers: Qualified Code(s): E78.5 - Hyperlipidemia, unspecified (9) LBBB (left bundle branch block) Code(s): I44.7 - LEFT BUNDLE-BRANCH BLOCK, UNSPECIFIED (10) SVT (supraventricular tachycardia) Assessment/Plan: metoprolol started (for systolic CHF and PSVT); increased to 50 mg tid because of continued episodes of PSVT. Holter 11/18: NSR; LBBB; PSVT; brief run of what was likely PAT. Mg repleted; maintain all electrolytes (keep K- 4-4.5; Mg 2-2.3; PO4 2.5-3.5) TSH WNL. Pain management. Maintain hydration; f/u anemia workup. Code(s): I47.1 - SUPRAVENTRICULAR TACHYCARDIA (11) CKD (chronic kidney disease) stage 3, GFR 30-59 ml/min Code(s): N18.3 - CHRONIC KIDNEY DISEASE, STAGE 3 (MODERATE) (12) Osteoporosis Code(s): M81.0 - AGE-RELATED OSTEOPOROSIS W/O CURRENT PATHOLOGICAL FRACTURE (13) Weakness Code(s): R53.1 - WEAKNESS (14) Systolic CHF Assessment/Plan: mildly reduced LVEF on 11/18 ECHO, with mild MR and TR. Start metoprolol; f/u BP and HR. Add lisinopril if BP remains stable; f/u BUN/Cr, electrolytes. Now afebrile. Code(s): I50.20 - UNSPECIFIED SYSTOLIC (CONGESTIVE) HEART FAILURE (15) S/P laminectomy Assessment/Plan: f/u with neurosurgeon. Code(s): Z98.890 - OTHER SPECIFIED POSTPROCEDURAL STATES (16) Atypical chest pain Assessment/Plan: hx atypical chest pain; latest stress MIBI at [facility] a little more than a year ago reportedly without ischemia; f/u report. Presently has both chest and back pain; EKG unchanged. TNI has remained 0.02. Code(s): R07.89 - OTHER CHEST PAIN (17) Anemia Assessment/Plan: f/u significant drop in Hb. s/p PRBCs. Code(s): D64.9 - ANEMIA, UNSPECIFIED (18) Parkinson disease Assessment/Plan: on Sinemet. Code(s): G20 - PARKINSON'S DISEASE
[2017-04-18] MEDS: DOCUSATE SODIUM 100 MG CAPSULE (FP) PO SCH (09:33)
[2017-04-18] MEDS: NAPH,MB-DB/K PH,MBDB POWDER PACKET PO SCH ×2 (09:34→21:33)
[2017-04-18] MEDS: POLYETHYLENE GLYCOL 3350 119 GM BTL PO SCH (09:35)
[2017-04-18 10:33] LABS: BASOPHIL 0.3 % (0-2.0); EOSINOPHIL 2.1 % (0-4.5); MCH 33.4 pg (25.7-33.7); MCHC 33.8 g/dl (32.0-35.9); MEAN CELL VOLUME 98.8 fl (80-96); NEUTROPHILS 80.3 % (42.8-82.8); PLATELET COUNT 228 K/MM3 (134-434); RDW 14.8 % (11.9-15.9); WHITE BLOOD COUNT 9.8 K/mm3 (4.0-10.0)
[2017-04-18 11:00] LABS: ANION GAP 12 (8-16); CALCIUM 7.6 mg/dL (8.5-10.1); CO2 22 mmol/L (21-32); CREATININE 1.1 mg/dL (0.7-1.3); GLUCOSE,RANDOM 107 mg/dL (74-106); MAGNESIUM 2.7 mg/dL (1.8-2.4); PHOSPHOROUS 2.5 mg/dL (2.5-4.9)
[2017-04-18] MEDS: LISINOPRIL 5 MG TABLET (FP) PO SCH (13:20)
--- NOTE | 2017-04-18 13:22 | PN ---
Progress Note, Physician History of Present Illness: pulmonary alert,-resp distress,c/o back pain - Current Medication List Current Medications: Active Medications Albuterol/Ipratropium (Duoneb -) 1 amp NEB Q4H PRN PRN Reason: SHORTNESS OF BREATH Carbidopa/Levodopa (Sinemet *Cr* 50/200 -) 1 combo PO 0700,1200,1700 [facility] Last Admin: 04/18/17 12:04 Dose: 1 combo Docusate Sodium (Colace -) 100 mg PO BID [facility] Last Admin: 04/18/17 09:33 Dose: 100 mg Gabapentin (Neurontin -) 200 mg PO HS [facility] Last Admin: 04/17/17 21:52 Dose: 200 mg Gabapentin (Neurontin -) 100 mg PO 0600,1400 [facility] Last Admin: 04/18/17 06:14 Dose: 100 mg Heparin Sodium (Porcine) (Heparin -) 5,000 unit SQ TID [facility] Last Admin: 04/18/17 06:13 Dose: 5,000 unit Hydromorphone HCl (Dilaudid Injection -) 0.5 mg IVPB Q3H PRN PRN Reason: PAIN Last Admin: 04/18/17 12:51 Dose: 0.5 mg Meropenem 1 gm/ Dextrose 100 mls @ 100 mls/hr IVPB Q8H-IV [facility] PRN Reason: Protocol Last Admin: 04/18/17 10:17 Dose: 100 mls/hr Lisinopril (Prinivil) 2.5 mg PO DAILY [facility] Magnesium Hydroxide (Milk Of Magnesia -) 30 ml PO Q8H PRN PRN Reason: CONSTIPATION Last Admin: 04/17/17 11:51 Dose: 30 ml Metoprolol Tartrate (Lopressor -) 50 mg PO TID [facility] Last Admin: 04/18/17 06:14 Dose: 50 mg Ondansetron HCl (Zofran Injection) 4 mg IVPUSH Q6H PRN PRN Reason: NAUSEA AND/OR VOMITING Pantoprazole Sodium (Protonix -) 40 mg PO BID [facility] Last Admin: 04/18/17 09:32 Dose: 40 mg Polyethylene Glycol (Miralax (For Daily Use) -) 17 gm PO DAILY [facility] Last Admin: 04/18/17 09:35 Dose: 17 grams Potassium Phos/Sodium Phos (Phos-Nak Packet -) 1 packet PO BID [facility] Last Admin: 04/18/17 09:34 Dose: 1 packet Pramipexole Dihydrochloride (Mirapex -) 0.5 mg PO 0700,1200,1700 [facility] Last Admin: 04/18/17 12:04 Dose: 0.5 mg Pramipexole Dihydrochloride (Mirapex -) 0.5 mg PO HS [facility] Last Admin: 04/17/17 21:52 Dose: 0.5 mg - Objective Vital Signs: Vital Signs Temperature 99.2 F 04/18/17 10:00 Pulse Rate 69 04/18/17 11:06 Respiratory Rate 16 04/18/17 10:00 Blood Pressure 126/56 04/18/17 10:00 O2 Sat by Pulse Oximetry (%) 95 04/18/17 11:06 Constitutional: Yes: Well Nourished, Calm Eyes: Yes: WNL HENT: Yes: WNL Neck: Yes: WNL Cardiovascular: Yes: Regular Rate and Rhythm, S1, S2 Respiratory: Yes: Diminished Gastrointestinal: Yes: Normal Bowel Sounds, Soft Extremities: Yes: WNL Edema: No Labs: CBC, BMP 04/18/17 09:50 04/18/17 09:50 INR, PTT INR 1.00 (0.82-1.09) 04/13/17 06:00 Problem List - Problems (1) Chronic obstructive pulmonary disease (COPD) Code(s): J44.9 - CHRONIC OBSTRUCTIVE PULMONARY DISEASE, UNSPECIFIED (2) Lower extremity pain Code(s): M79.606 - PAIN IN LEG, UNSPECIFIED Qualifiers: Qualified Code(s): M79.604 - Pain in right leg (3) Carotid stenosis Code(s): I65.29 - OCCLUSION AND STENOSIS OF UNSPECIFIED CAROTID ARTERY (4) HTN (hypertension) Code(s): I10 - ESSENTIAL (PRIMARY) HYPERTENSION Qualifiers: Qualified Code(s): I10 - Essential (primary) hypertension (5) Afib Code(s): I48.91 - UNSPECIFIED ATRIAL FIBRILLATION (6) CKD (chronic kidney disease) stage 3, GFR 30-59 ml/min Code(s): N18.3 - CHRONIC KIDNEY DISEASE, STAGE 3 (MODERATE) (7) BPH (benign prostatic hyperplasia) Code(s): N40.0 - BENIGN PROSTATIC HYPERPLASIA WITHOUT LOWER URINRY TRACT SYMP (8) Back pain Code(s): M54.9 - DORSALGIA, UNSPECIFIED Qualifiers: Qualified Code(s): M54.5 - Low back pain Assessment/Plan IMP COPD STABLE PAF CHRONIC BACK PAIN S/P T12-S2 LAMINECTOMIES/DECOMPRESSION/FUSION HTN PULMONARY HTN CKD PARKINSONS PLAN INHALED BRONCHODILATORS PRN O2 PRN ANTIBIOTICS PER ID INCENTIVE SPIROMETER DR HANNAH YOUNG Problem List - Problems (1) Chronic obstructive pulmonary disease (COPD) Code(s): J44.9 - CHRONIC OBSTRUCTIVE PULMONARY DISEASE, UNSPECIFIED (2) Lower extremity pain Code(s): M79.606 - PAIN IN LEG, UNSPECIFIED Qualifiers: Laterality: bilateral Qualified Code(s): M79.604 - Pain in right leg (3) Carotid stenosis Code(s): I65.29 - OCCLUSION AND STENOSIS OF UNSPECIFIED CAROTID ARTERY (4) HTN (hypertension) Code(s): I10 - ESSENTIAL (PRIMARY) HYPERTENSION Qualifiers: Hypertension type: essential hypertension Qualified Code(s): I10 - Essential (primary) hypertension (5) Afib Code(s): I48.91 - UNSPECIFIED ATRIAL FIBRILLATION (6) CKD (chronic kidney disease) stage 3, GFR 30-59 ml/min Code(s): N18.3 - CHRONIC KIDNEY DISEASE, STAGE 3 (MODERATE) (7) BPH (benign prostatic hyperplasia) Code(s): N40.0 - BENIGN PROSTATIC HYPERPLASIA WITHOUT LOWER URINRY TRACT SYMP (8) Back pain Code(s): M54.9 - DORSALGIA, UNSPECIFIED Qualifiers: Back pain location: low back pain Chronicity: chronic Back pain laterality: bilateral Sciatica presence: unspecified whether sciatica present Qualified Code(s): M54.5 - Low back pain
--- NOTE | 2017-04-18 14:06 | PN ---
Progress Note (short form) - Note Progress Note: POD #5 Alert. Passing flatus and having formed bm's. C/o muscular spasms if he moves too quickly. Also states he feels a little tired and weak. Left leg numbness improved and he was oob with PT briefly yesterday. Last Vital Signs Temp Pulse Resp BP Pulse Ox 98.9 F 82 20 137/68 95 04/18/17 13:37 04/18/17 13:37 04/18/17 13:37 04/18/17 13:37 04/18/17 11:06 H/H TREND 04/14/17 04/15/17 04/16/17 04/17/17 04/18/17 05:00 05:00 05:00 06:30 09:50 Hgb 8.8 L D 7.9 L D 7.9 L 7.7 7.6 Hct 25.4 L D 22.6 L 23.0 L 22.8 22.6 BMP 04/18/17 09:50 INR, PTT INR 1.00 (0.82-1.09) 04/13/17 06:00 Selected Entries 04/17/17 04/17/17 04/18/17 06:00 18:54 06:23 Drain (mix of CSF & blood) 200 150 170 PE GEN: Alert. NAD. BACK: Dressing c/d/i. [place] intact. No hematoma ABD: softly distended. NT. +BS x4 LE: SCDs bilat. No tenderness or swelling. MUSCULOSKEL: Plantar/dorsi flexion --> 5/5 RLE, LLE 4/5 plantar/dorsal flexion. A/P POD #5 s/p T12-S2 laminectomy/fusion/instrumentation/decompression 2 PRBC ordered for transfusion Repeat CBC ordered for 11pm Pain Management Consult --> Dr. Mondragon (ordered) Valium 5mg q6h rtc Gabapentin 300mg tid Colace 100mg q8h Hydromorphone 0.5mg Q4hr Cont OOB and ambulate with PT, instructions written yesterday with PT parameters When ileus resolves and pt more mobile add iron supplements Above discussed with Dr. Queen and agrees
[2017-04-18] MEDS ORDERED: diazePAM CARPU-JECT 10 MG/2 ML DISP.SYRIN IVPUSH ONE (14:12)
[2017-04-18] MEDS ORDERED: diazePAM CARPU-JECT 10 MG/2 ML DISP.SYRIN IVPUSH SCH (14:15)
[2017-04-18] MEDS ORDERED: HYDROmorphone HCL CARPU-JECT 1 MG/1 ML DISP.SYRIN IVPUSH PRN (14:21)
[2017-04-18] MEDS ORDERED: DOCUSATE SODIUM 100 MG CAPSULE (FP) PO PRN (14:21)
[2017-04-18] MEDS ORDERED: diazePAM 5 MG TABLET PO ONE (16:00)
--- NOTE | 2017-04-18 16:54 | PN ---
Progress Note, Physician History of Present Illness: pain main issues patient very uncomfortable - Current Medication List Current Medications: Active Medications Albuterol/Ipratropium (Duoneb -) 1 amp NEB Q4H PRN PRN Reason: SHORTNESS OF BREATH Carbidopa/Levodopa (Sinemet *Cr* 50/200 -) 1 combo PO 0700,1200,1700 [facility] Last Admin: 04/18/17 12:04 Dose: 1 combo Diazepam (Valium -) 5 mg PO Q6HPO [facility] Docusate Sodium (Colace -) 100 mg PO Q8H PRN PRN Reason: CONSTIPATION Gabapentin (Neurontin -) 300 mg PO TID [facility] Heparin Sodium (Porcine) (Heparin -) 5,000 unit SQ TID [facility] Last Admin: 04/18/17 13:19 Dose: 5,000 unit Hydromorphone HCl (Dilaudid Injection -) 0.5 mg IVPB Q3H PRN PRN Reason: PAIN Last Admin: 04/18/17 12:51 Dose: 0.5 mg Meropenem 1 gm/ Dextrose 100 mls @ 100 mls/hr IVPB Q8H-IV [facility] PRN Reason: Protocol Last Admin: 04/18/17 10:17 Dose: 100 mls/hr Lisinopril (Prinivil) 2.5 mg PO DAILY [facility] Last Admin: 04/18/17 13:20 Dose: 2.5 mg Magnesium Hydroxide (Milk Of Magnesia -) 30 ml PO Q8H PRN PRN Reason: CONSTIPATION Last Admin: 04/17/17 11:51 Dose: 30 ml Metoprolol Tartrate (Lopressor -) 50 mg PO TID [facility] Last Admin: 04/18/17 13:19 Dose: 50 mg Ondansetron HCl (Zofran Injection) 4 mg IVPUSH Q6H PRN PRN Reason: NAUSEA AND/OR VOMITING Pantoprazole Sodium (Protonix -) 40 mg PO BID [facility] Last Admin: 04/18/17 09:32 Dose: 40 mg Polyethylene Glycol (Miralax (For Daily Use) -) 17 gm PO DAILY [facility] Last Admin: 04/18/17 09:35 Dose: 17 grams Potassium Phos/Sodium Phos (Phos-Nak Packet -) 1 packet PO BID [facility] Last Admin: 04/18/17 09:34 Dose: 1 packet Pramipexole Dihydrochloride (Mirapex -) 0.5 mg PO 0700,1200,1700 [facility] Last Admin: 04/18/17 12:04 Dose: 0.5 mg Pramipexole Dihydrochloride (Mirapex -) 0.5 mg PO HS [facility] Last Admin: 04/17/17 21:52 Dose: 0.5 mg - Objective Vital Signs: Vital Signs Temperature 98.9 F 04/18/17 13:37 Pulse Rate 82 04/18/17 13:37 Respiratory Rate 20 04/18/17 13:37 Blood Pressure 137/68 04/18/17 13:37 O2 Sat by Pulse Oximetry (%) 95 04/18/17 11:06 Constitutional: Yes: Calm, Mild Distress Cardiovascular: Yes: Regular Rate and Rhythm Respiratory: Yes: Regular, CTA Bilaterally Gastrointestinal: Yes: Normal Bowel Sounds, Soft Musculoskeletal: Yes: WNL Extremities: Yes: WNL Wound/Incision: Yes: Dressing Dry and Intact, Other Neurological: Yes: Alert, Oriented Psychiatric: Yes: Alert, Oriented Labs: CBC, BMP 04/18/17 09:50 04/18/17 09:50 INR, PTT INR 1.00 (0.82-1.09) 04/13/17 06:00 Assessment/Plan Problem List - Problems (1) Chronic obstructive pulmonary disease (COPD) Code(s): J44.9 - CHRONIC OBSTRUCTIVE PULMONARY DISEASE, UNSPECIFIED (2) Lower extremity pain Code(s): M79.606 - PAIN IN LEG, UNSPECIFIED Qualifiers: Laterality: bilateral Qualified Code(s): M79.604 - Pain in right leg (3) Carotid stenosis Code(s): I65.29 - OCCLUSION AND STENOSIS OF UNSPECIFIED CAROTID ARTERY (4) HTN (hypertension) Code(s): I10 - ESSENTIAL (PRIMARY) HYPERTENSION Qualifiers: Hypertension type: essential hypertension Qualified Code(s): I10 - Essential (primary) hypertension (5) Afib Code(s): I48.91 - UNSPECIFIED ATRIAL FIBRILLATION (6) CKD (chronic kidney disease) stage 3, GFR 30-59 ml/min Code(s): N18.3 - CHRONIC KIDNEY DISEASE, STAGE 3 (MODERATE) (7) BPH (benign prostatic hyperplasia) Code(s): N40.0 - BENIGN PROSTATIC HYPERPLASIA WITHOUT LOWER URINRY TRACT SYMP (8) Back pain Code(s): M54.9 - DORSALGIA, UNSPECIFIED Qualifiers: Back pain location: low back pain Chronicity: chronic Back pain laterality: bilateral Sciatica presence: unspecified whether sciatica present Qualified Code(s): M54.5 - Low back pain 9 uti plan continue divine if no fevers tomorrow stop and see if continues to spike then repeat cx and repeat imaging rest as per primary team
--- NOTE | 2017-04-18 18:57 | CONSULT ---
Consult Consult Specialty:: Pain Management Reason for Consultation:: Back pain - History of Present Illness Chief Complaint: Intermittent sharp pain in orr legs s/p surgery History of Present Illness: 71 yr old male with LBP spinal stenosis with acute exacerbation of pain underwent spinal fusion. He has postoperative pain. Pain 0-10/10 , intermittently very sharp , radiates to Both thighs. - History Source History Provided By: Patient - Past Medical History TENTER: Yes: Syncope (with reported negative work=up -. stress test in 01/14 - normal (pt reports recent one ,about 14 montsh ago,at [facility] -. normal)) Cardio/Vascular: Yes: HTN, Hyperlipdemia, Other (atypical chest pain in the past with neg stress test. Hx of WCT in 01/16 -. thought to be SVT at pt has underlying LBBB) Pulmonary: Yes: COPD Gastrointestinal: Yes: Constipation, Hiatal Hernia, Irritable Bowel Disease Renal/: Yes: Renal Inusuff, BPH, Renal Calculi (Patient says that he has kidney stone, ? 6 cm in one kidney) Infectious Disease: Yes: Other (?hx "shingles") Psych: Yes: Anxiety, Depression Musculoskeletal: Yes: Chronic low back pain, Osteoarthritis, Other (Lower extremity ulcerations) - Past Surgical History Past Surgical History: Yes: Hernia Repair - Alcohol/Substance Use Hx Alcohol Use: No History of Substance Use: reports: None - Smoking History Smoking history: Unknown if ever smoked Have you smoked in the past 12 months: No Aproximately how many cigarettes per day: 0 If you are a former smoker, when did you quit?: over 25 years ago - Social History Usual Living Arrangement: Alone 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 Travel: No Home Medications - Allergies Allergies/Adverse Reactions: Allergies Allergy/AdvReac Type Severity Reaction Status Date / Time pregabalin [From Lyrica] Allergy Mild Verified 04/11/17 02:47 pravastatin sodium Allergy Unknown Verified 04/11/17 02:47 [From Pravachol] lactose Allergy Nausea Verified 04/11/17 02:47 morphine Allergy Verified 04/11/17 02:47 peanut Allergy Verified 04/11/17 02:47 Penicillins Allergy Verified 04/11/17 02:47 - Home Medications Home Medications: Ambulatory Orders Pantoprazole Sodium [Protonix -] 40 mg PO BID #60 tablet.ec 07/26/15 Alendronate Na [Fosamax (Weekly)] 70 mg PO WEEKLY 08/22/16 Oxycodone HCl/Acetaminophen [Percocet 5-325 mg Tablet] 1 - 2 tab PO Q4H Magnesium Hydrox 2400MG/30Ml [Milk of Magnesia -] 30 ml PO Q8H PRN 01/11/17 Docusate Sodium [Colace -] 100 mg PO BID #60 capsule 01/16/17 Ondansetron HCl [Zofran] 8 mg PO Q8H PRN #14 tablet 01/16/17 Sennosides [Senna -] 2 tab PO DAILY #30 tablet 01/16/17 Sodium Phosphate/Na Biphos [Fleet Adult Rectal Enema -] 133 ml RC WEEKLY PRN #4 enema 01/16/17 Amlodipine Besylate [Norvasc -] 5 mg PO DAILY #30 tablet 03/26/17 Carbidopa/Levodopa *Cr* 25/100 [Sinemet *Cr* 25/100 -] 1 combo PO TID@0700,1200, 1700 #30 tab 03/26/17 Pramipexole Dihydrochloride [Mirapex -] 0.25 mg PO HS #30 tablet 03/26/17 Pramipexole Dihydrochloride [Mirapex -] 0.25 mg PO TID@0700,1200,1700 #90 tablet 03/26/17 Family Disease History - Family Disease History Family Disease History: CA: Father (lung ), Mother (gall bladder ), Other: Sister (alive: healthy) Review of Systems - Review of Systems Constitutional: reports: No Symptoms Eyes: reports: No Symptoms HENT: reports: No Symptoms Neck: reports: No Symptoms Gastrointestinal: reports: No Symptoms Genitourinary: reports: Incontinence Musculoskeletal: reports: Back Pain, Other (both legs pain) Neurological: reports: No Symptoms Psychiatric: reports: No Symptoms Pain Intensity: 10 ( intermittently) Physical Exam Vital Signs: Vital Signs Temperature 98.9 F 04/18/17 13:37 Pulse Rate 82 04/18/17 13:37 Respiratory Rate 20 04/18/17 13:37 Blood Pressure 137/68 04/18/17 13:37 O2 Sat by Pulse Oximetry (%) 95 04/18/17 11:06 Constitutional: Yes: Well Nourished Eyes: Yes: WNL HENT: Yes: WNL Neck: Yes: WNL Respiratory: Yes: On Nasal O2, Other Renal/: Yes: Other (Diaper) Musculoskeletal: Yes: Back Pain, Other (dressing , drainage tube +) Extremities: Yes: WNL Edema: No Neurological: Yes: WNL Labs: CBC, BMP 04/18/17 09:50 04/18/17 09:50 Current Medications Generic Name Dose Route Start Last Admin Trade Name Freq PRN Reason Stop Dose Admin Albuterol/Ipratropium 1 amp 04/16/17 16:18 Duoneb - NEB Q4H PRN SHORTNESS OF BREATH Carbidopa/Levodopa 1 combo 04/16/17 17:00 04/18/17 17:02 Sinemet *Cr* 50/200 - PO 1 combo 0700,1200,1700 SIENA Administration Diazepam 5 mg 04/19/17 00:00 Valium - PO Q6HPO SIENA Docusate Sodium 100 mg 04/18/17 14:21 Colace - PO Q8H PRN CONSTIPATION Gabapentin 300 mg 04/18/17 22:00 Neurontin - PO TID SIENA Heparin Sodium (Porcine) 5,000 unit 04/16/17 22:00 04/18/17 13:19 Heparin - SQ 5,000 unit TID SIENA Administration Hydromorphone HCl 0.5 mg 04/16/17 16:18 04/18/17 12:51 Dilaudid Injection - IVPB 0.5 mg Q3H PRN Administration PAIN Meropenem 1 gm/ Dextrose 100 mls @ 100 mls/hr 04/16/17 14:00 04/18/17 17:03 IVPB 100 mls/hr Q8H-IV SIENA Administration Protocol Lisinopril 2.5 mg 04/18/17 13:15 04/18/17 13:20 Prinivil PO 2.5 mg DAILY SIENA Administration Magnesium Hydroxide 30 ml 04/16/17 16:18 04/17/17 11:51 Milk Of Magnesia - PO 30 ml Q8H PRN Administration CONSTIPATION Metoprolol Tartrate 50 mg 04/17/17 14:00 04/18/17 13:19 Lopressor - PO 50 mg TID SIENA Administration Ondansetron HCl 4 mg 09/13/17 16:18 Zofran Injection IVPUSH Q6H PRN NAUSEA AND/OR VOMITING Pantoprazole Sodium 40 mg 04/16/17 22:00 04/18/17 09:32 Protonix - PO 40 mg BID SIENA Administration Polyethylene Glycol 17 gm 04/17/17 10:00 04/18/17 09:35 Miralax (For Daily Use) - PO 17 grams DAILY SIENA Administration Potassium Phos/Sodium Phos 1 packet 04/17/17 10:00 04/18/17 09:34 Phos-Nak Packet - PO 1 packet BID SIENA Administration Pramipexole Dihydrochloride 0.5 mg 04/16/17 17:00 04/18/17 17:02 Mirapex - PO 0.5 mg 0700,1200,1700 SIENA Administration Pramipexole Dihydrochloride 0.5 mg 04/16/17 22:00 04/17/17 21:52 Mirapex - PO 0.5 mg HS SIENA Administration Laboratory Results - last 24 hr 04/17/17 04/18/17 04/18/17 06:30 09:50 09:50 WBC 9.8 RBC 2.29 L Hgb 7.6 L Hct 22.8 L 22.6 L MCV 98.8 H MCH 33.4 MCHC 33.8 RDW 14.8 Plt Count 228 D MPV 9.0 Neutrophils % 80.3 Lymphocytes % 9.7 D Monocytes % 7.6 Eosinophils % 2.1 Basophils % 0.3 Sodium 138 Potassium 4.2 Chloride 104 Carbon Dioxide 22 Anion Gap 12 BUN 23 H D Creatinine 1.1 Random Glucose 107 H D Calcium 7.6 L Phosphorus 2.5 Magnesium 2.7 H D Folate 1566 Folate Hemolysate 357.1 Blood Type Antibody Screen Crossmatch 04/18/17 15:45 WBC RBC Hgb Hct MCV MCH MCHC RDW Plt Count MPV Neutrophils % Lymphocytes % Monocytes % Eosinophils % Basophils % Sodium Potassium Chloride Carbon Dioxide Anion Gap BUN Creatinine Random Glucose Calcium Phosphorus Magnesium Folate Folate Hemolysate Blood Type O NEGATIVE Antibody Screen Negative Crossmatch See Detail Assessment/Plan Discussed in details 1. continue current care 2. Frequent change of Diapper 3. PT evaluation 4. Bed mobility / change of position 5. oxycontin 10 mg po BID 6. neurontin 400 mg PO TID 7.O2 2l /min via nasal cannula . Thank for your kind referral.
[2017-04-18] MEDS: GABAPENTIN 400 MG CAPSULE (FP) PO SCH (21:31)
[2017-04-18] MEDS: oxyCODONE HCL 10 MG SUSTAINED ACTING TABLET PO SCH (21:31)
[2017-04-18] MEDS: MAGNESIUM HYDROX 2400MG/30ML ORAL SUSPENSION 30 ML CUP PO PRN (21:32)
[2017-04-18] MEDS ORDERED: GABAPENTIN 300 MG CAPSULE (FP) PO SCH (22:00)
[2017-04-18] MEDS: diazePAM 5 MG TABLET PO SCH (23:52)
[2017-04-19] MEDS ORDERED: PT OWN MED DRAWER 7, Y5N ONE ×5 (03:16→17:14)
[2017-04-19] MEDS: HYDROmorphone HCL CARPU-JECT 1 MG/1 ML DISP.SYRIN IVPB PRN ×5 (03:19→16:01)
[2017-04-19] MEDS: MEROPENEM 1 GM in DEXTROSE 5%-WATER - 100 ML IVPB SCH ×3 (03:20→17:34)
[2017-04-19] MEDS: HEPARIN NA (PORCINE) 5,000 UNITS/ML 1ML VIAL SQ SCH ×3 (06:27→21:14)
[2017-04-19] MEDS: diazePAM 5 MG TABLET PO SCH ×3 (06:27→17:35)
[2017-04-19] MEDS: PRAMIPEXOLE DIHYDROCHLORIDE 0.5 MG TABLET PO SCH ×4 (06:27→21:15)
[2017-04-19] MEDS: METOPROLOL TARTRATE 50 MG TABLET (FP) PO SCH ×3 (06:27→21:12)
[2017-04-19] MEDS: GABAPENTIN 400 MG CAPSULE (FP) PO SCH ×3 (06:27→21:13)
[2017-04-19 07:03] LABS: BASOPHIL 0.6 % (0-2.0); MCH 32.6 pg (25.7-33.7); MCHC 34.2 g/dl (32.0-35.9); MEAN CELL VOLUME 95.3 fl (80-96); MEAN PLT VOLUME 8.8 fl (7.5-11.1); NEUTROPHILS 77.5 % (42.8-82.8); PLATELET COUNT 245 K/MM3 (134-434); RDW 16.3 % (11.9-15.9); WHITE BLOOD COUNT 10.5 K/mm3 (4.0-10.0)
--- NOTE | 2017-04-19 08:36 | PN ---
Progress Note, Physician History of Present Illness: 71 year old man h/o HTN, HLD, AFib, LBBB, COPD, chronic back and leg pain on multiple medications, h/o recurrent syncope admitted with severe acute on chronic lower back and leg pain. Pt was seen by neurology and neurosurgery yesterday. Neurology felt surgery would not be helpful but neurosurgery felt that surgery could offer some relief of his pain and disability and thus he is planned for surgical intervention. Pt was seen and examined today in [place]. No overnight events. no new complaints. He states that his back and leg pain was so severe that he was significantly disabled at home and it was not responsive to medications. He denies having any chest pain, sob, palpitations. No pnd, orthopnea, or LE edema. No recent recurrent syncope or near syncope. - Current Medication List Current Medications: Active Medications Albuterol/Ipratropium (Duoneb -) 1 amp NEB Q4H PRN PRN Reason: SHORTNESS OF BREATH Carbidopa/Levodopa (Sinemet *Cr* 50/200 -) 1 combo PO 0700,1200,1700 [facility] Last Admin: 04/19/17 06:27 Dose: 1 combo Diazepam (Valium -) 5 mg PO Q6HPO [facility] Last Admin: 04/19/17 06:27 Dose: 5 mg Docusate Sodium (Colace -) 100 mg PO Q8H PRN PRN Reason: CONSTIPATION Gabapentin (Neurontin -) 400 mg PO TID [facility] Last Admin: 04/19/17 06:27 Dose: 400 mg Heparin Sodium (Porcine) (Heparin -) 5,000 unit SQ TID [facility] Last Admin: 04/19/17 06:27 Dose: 5,000 unit Hydromorphone HCl (Dilaudid Injection -) 0.5 mg IVPB Q3H PRN PRN Reason: PAIN Last Admin: 04/19/17 06:26 Dose: 0.5 mg Meropenem 1 gm/ Dextrose 100 mls @ 100 mls/hr IVPB Q8H-IV SIENA PRN Reason: Protocol Last Admin: 04/19/17 03:20 Dose: 100 mls/hr Lisinopril (Prinivil) 2.5 mg PO DAILY [facility] Last Admin: 04/18/17 13:20 Dose: 2.5 mg Magnesium Hydroxide (Milk Of Magnesia -) 30 ml PO Q8H PRN PRN Reason: CONSTIPATION Last Admin: 04/18/17 21:32 Dose: 30 ml Metoprolol Tartrate (Lopressor -) 50 mg PO TID [facility] Last Admin: 04/19/17 06:27 Dose: 50 mg Ondansetron HCl (Zofran Injection) 4 mg IVPUSH Q6H PRN PRN Reason: NAUSEA AND/OR VOMITING Oxycodone HCl (Oxycontin -) 10 mg PO BID [facility] Last Admin: 04/18/17 21:31 Dose: 10 mg Pantoprazole Sodium (Protonix -) 40 mg PO BID [facility] Last Admin: 04/18/17 21:33 Dose: 40 mg Polyethylene Glycol (Miralax (For Daily Use) -) 17 gm PO DAILY [facility] Last Admin: 04/18/17 09:35 Dose: 17 grams Potassium Phos/Sodium Phos (Phos-Nak Packet -) 1 packet PO BID [facility] Last Admin: 04/18/17 21:33 Dose: 1 packet Pramipexole Dihydrochloride (Mirapex -) 0.5 mg PO 0700,1200,1700 [facility] Last Admin: 04/19/17 06:27 Dose: 0.5 mg Pramipexole Dihydrochloride (Mirapex -) 0.5 mg PO HS [facility] Last Admin: 04/18/17 21:32 Dose: 0.5 mg - Objective Vital Signs: Vital Signs Temperature 98.7 F 04/19/17 06:00 Pulse Rate 80 04/19/17 06:00 Respiratory Rate 20 04/19/17 06:00 Blood Pressure 145/80 04/19/17 06:00 O2 Sat by Pulse Oximetry (%) 99 04/18/17 21:00 Eyes: Yes: WNL, Conjunctiva Clear, EOM Intact HENT: Yes: WNL, Atraumatic, Normocephalic Neck: Yes: WNL, Supple, Trachea Midline Cardiovascular: Yes: WNL, Regular Rate and Rhythm Respiratory: Yes: WNL, Regular, CTA Bilaterally Gastrointestinal: Yes: WNL, Normal Bowel Sounds Genitourinary: Yes: WNL Musculoskeletal: Yes: WNL Extremities: Yes: WNL Edema: No Integumentary: Yes: WNL Neurological: Yes: WNL, Alert, Oriented ...Motor Strength: WNL Psychiatric: Yes: WNL Labs: CBC, BMP 04/19/17 06:25 04/18/17 09:50 INR, PTT INR 1.00 (0.82-1.09) 04/13/17 06:00 Assessment/Plan - Problems (1) BPH (benign prostatic hyperplasia) Code(s): N40.0 - BENIGN PROSTATIC HYPERPLASIA WITHOUT LOWER URINRY TRACT SYMP (2) Chronic obstructive pulmonary disease (COPD) Code(s): J44.9 - CHRONIC OBSTRUCTIVE PULMONARY DISEASE, UNSPECIFIED (3) Diverticulosis Code(s): K57.90 - DVRTCLOS OF INTEST, PART UNSP, W/O PERF OR ABSCESS W/O BLEED (4) Syncope Code(s): R55 - SYNCOPE AND COLLAPSE Qualifiers: Qualified Code(s): R55 - Syncope and collapse (5) Back pain Assessment/Plan: pain management. Physical rehabilitation. Code(s): M54.9 - DORSALGIA, UNSPECIFIED Qualifiers: Qualified Code(s): M54.5 - Low back pain (6) Depression Code(s): F32.9 - MAJOR DEPRESSIVE DISORDER, SINGLE EPISODE, UNSPECIFIED Qualifiers: Qualified Code(s): F33.0 - Major depressive disorder, recurrent, mild (7) HTN (hypertension) Assessment/Plan: On amlodipine will discontinue, as metoprolol dsoe is being increased for HR and BP. F/u BMP, electgrolytes; consider restartin lisinopril (reduced LVEF; HTN). Code(s): I10 - ESSENTIAL (PRIMARY) HYPERTENSION Qualifiers: Qualified Code(s): I10 - Essential (primary) hypertension (8) Hyperlipidemia Assessment/Plan: f/u lipids (total cholesterol 151 mg/dL on 05/2016). Code(s): E78.5 - HYPERLIPIDEMIA, UNSPECIFIED Qualifiers: Qualified Code(s): E78.5 - Hyperlipidemia, unspecified (9) LBBB (left bundle branch block) Code(s): I44.7 - LEFT BUNDLE-BRANCH BLOCK, UNSPECIFIED (10) SVT (supraventricular tachycardia) Assessment/Plan: metoprolol started (for systolic CHF and PSVT); increased to 50 mg tid because of continued episodes of PSVT. Holter 11/18: NSR; LBBB; PSVT; brief run of what was likely PAT. Mg repleted; maintain all electrolytes (keep K- 4-4.5; Mg 2-2.3; PO4 2.5-3.5) TSH WNL. Pain management. Maintain hydration; f/u anemia workup. Code(s): I47.1 - SUPRAVENTRICULAR TACHYCARDIA (11) CKD (chronic kidney disease) stage 3, GFR 30-59 ml/min Code(s): N18.3 - CHRONIC KIDNEY DISEASE, STAGE 3 (MODERATE) (12) Osteoporosis Code(s): M81.0 - AGE-RELATED OSTEOPOROSIS W/O CURRENT PATHOLOGICAL FRACTURE (13) Weakness Code(s): R53.1 - WEAKNESS (14) Systolic CHF Assessment/Plan: mildly reduced LVEF on 11/18 ECHO, with mild MR and TR. Start metoprolol; f/u BP and HR. Add lisinopril if BP remains stable; f/u BUN/Cr, electrolytes. Now afebrile. Code(s): I50.20 - UNSPECIFIED SYSTOLIC (CONGESTIVE) HEART FAILURE (15) S/P laminectomy Assessment/Plan: f/u with neurosurgeon. Code(s): Z98.890 - OTHER SPECIFIED POSTPROCEDURAL STATES (16) Atypical chest pain Assessment/Plan: hx atypical chest pain; latest stress MIBI at [facility] a little more than a year ago reportedly without ischemia; f/u report. Presently has both chest and back pain; EKG unchanged. TNI has remained 0.02. Code(s): R07.89 - OTHER CHEST PAIN (17) Anemia Assessment/Plan: f/u significant drop in Hb. s/p PRBCs. Code(s): D64.9 - ANEMIA, UNSPECIFIED (18) Parkinson disease Assessment/Plan: on Sinemet. Code(s): G20 - PARKINSON'S DISEASE
[2017-04-19] MEDS: LISINOPRIL 5 MG TABLET (FP) PO SCH (09:00)
[2017-04-19] MEDS: NAPH,MB-DB/K PH,MBDB POWDER PACKET PO SCH ×2 (09:00→21:15)
[2017-04-19] MEDS: PANTOPRAZOLE 40 MG TABLET (FP) PO SCH ×2 (09:00→21:12)
[2017-04-19] MEDS: oxyCODONE HCL 10 MG SUSTAINED ACTING TABLET PO SCH ×2 (09:01→21:13)
[2017-04-19] MEDS: ALBUTEROL SO4 2.5/IPRATROPIUM 0.5 INH SOL 3 ML VIAL.NEB. NEB PRN ×2 (10:30→17:14)
[2017-04-19] MEDS: POLYETHYLENE GLYCOL 3350 119 GM BTL PO SCH (10:35)
--- NOTE | 2017-04-19 12:20 | PN ---
Progress Note (short form) - Note Progress Note: Awake and alert. Still with pain issues. Intake & Output 04/16/17 04/17/17 04/18/17 04/19/17 23:59 23:59 23:59 23:59 Intake Total 2185 3270 1150 900 Output Total 2370 700 395 270 Balance -185 2570 755 630 Weight 141 lb 1.6 oz Last Vital Signs Temp Pulse Resp BP Pulse Ox 99.2 F 68 20 133/81 99 04/19/17 10:00 04/19/17 10:00 04/19/17 10:00 04/19/17 10:00 04/18/17 21:00 Active Medications Albuterol/Ipratropium (Duoneb -) 1 amp NEB Q4H PRN PRN Reason: SHORTNESS OF BREATH Carbidopa/Levodopa (Sinemet *Cr* 50/200 -) 1 combo PO 0700,1200,1700 [facility] Last Admin: 04/19/17 06:27 Dose: 1 combo Diazepam (Valium -) 5 mg PO Q6HPO [facility] Last Admin: 04/19/17 06:27 Dose: 5 mg Docusate Sodium (Colace -) 100 mg PO Q8H PRN PRN Reason: CONSTIPATION Gabapentin (Neurontin -) 400 mg PO TID [facility] Last Admin: 04/19/17 06:27 Dose: 400 mg Heparin Sodium (Porcine) (Heparin -) 5,000 unit SQ TID [facility] Last Admin: 04/19/17 06:27 Dose: 5,000 unit Hydromorphone HCl (Dilaudid Injection -) 0.5 mg IVPB Q3H PRN PRN Reason: PAIN Last Admin: 04/19/17 09:36 Dose: 0.5 mg Meropenem 1 gm/ Dextrose 100 mls @ 100 mls/hr IVPB Q8H-IV SIENA PRN Reason: Protocol Last Admin: 04/19/17 09:02 Dose: 100 mls/hr Lisinopril (Prinivil) 2.5 mg PO DAILY [facility] Last Admin: 04/19/17 09:00 Dose: 2.5 mg Magnesium Hydroxide (Milk Of Magnesia -) 30 ml PO Q8H PRN PRN Reason: CONSTIPATION Last Admin: 04/18/17 21:32 Dose: 30 ml Metoprolol Tartrate (Lopressor -) 50 mg PO TID [facility] Last Admin: 04/19/17 06:27 Dose: 50 mg Ondansetron HCl (Zofran Injection) 4 mg IVPUSH Q6H PRN PRN Reason: NAUSEA AND/OR VOMITING Oxycodone HCl (Oxycontin -) 10 mg PO BID [facility] Last Admin: 04/19/17 09:01 Dose: 10 mg Pantoprazole Sodium (Protonix -) 40 mg PO BID [facility] Last Admin: 04/19/17 09:00 Dose: 40 mg Polyethylene Glycol (Miralax (For Daily Use) -) 17 gm PO DAILY [facility] Last Admin: 04/19/17 10:35 Dose: 17 grams Potassium Phos/Sodium Phos (Phos-Nak Packet -) 1 packet PO BID [facility] Last Admin: 04/19/17 09:00 Dose: 1 packet Pramipexole Dihydrochloride (Mirapex -) 0.5 mg PO 0700,1200,1700 [facility] Last Admin: 04/19/17 06:27 Dose: 0.5 mg Pramipexole Dihydrochloride (Mirapex -) 0.5 mg PO HS [facility] Last Admin: 04/18/17 21:32 Dose: 0.5 mg Constitutional: Yes: NAD Eyes: Yes: WNL HENT: Yes: WNL Neck: Yes: WNL Cardiovascular: Yes: Regular Rate and Rhythm, S1, S2 Respiratory: Yes: Diminished Gastrointestinal: Yes: Normal Bowel Sounds, Soft Extremities: Yes: WNL Edema: No Labs: Laboratory Results - last 24 hr 04/18/17 04/19/17 04/19/17 15:45 06:25 07:00 WBC 10.5 H RBC 3.11 L D Hgb 10.1 L D Hct 29.7 L D MCV 95.3 MCH 32.6 MCHC 34.2 RDW 16.3 H D Plt Count 245 MPV 8.8 Neutrophils % 77.5 Lymphocytes % 11.6 Monocytes % 8.3 Eosinophils % 2.0 Basophils % 0.6 Stool Occult Blood Negative Blood Type O NEGATIVE Antibody Screen Negative Crossmatch See Detail Problem List - Problems (1) Chronic obstructive pulmonary disease (COPD) Code(s): J44.9 - CHRONIC OBSTRUCTIVE PULMONARY DISEASE, UNSPECIFIED (2) Lower extremity pain Code(s): M79.606 - PAIN IN LEG, UNSPECIFIED Qualifiers: Qualified Code(s): M79.604 - Pain in right leg (3) Carotid stenosis Code(s): I65.29 - OCCLUSION AND STENOSIS OF UNSPECIFIED CAROTID ARTERY (4) HTN (hypertension) Code(s): I10 - ESSENTIAL (PRIMARY) HYPERTENSION Qualifiers: Qualified Code(s): I10 - Essential (primary) hypertension (5) Afib Code(s): I48.91 - UNSPECIFIED ATRIAL FIBRILLATION (6) CKD (chronic kidney disease) stage 3, GFR 30-59 ml/min Code(s): N18.3 - CHRONIC KIDNEY DISEASE, STAGE 3 (MODERATE) (7) BPH (benign prostatic hyperplasia) Code(s): N40.0 - BENIGN PROSTATIC HYPERPLASIA WITHOUT LOWER URINRY TRACT SYMP (8) Back pain Code(s): M54.9 - DORSALGIA, UNSPECIFIED Qualifiers: Qualified Code(s): M54.5 - Low back pain Assessment/Plan IMP COPD STABLE PAF CHRONIC BACK PAIN S/P T12-S2 LAMINECTOMIES/DECOMPRESSION/FUSION HTN PULMONARY HTN CKD PARKINSONS PLAN INHALED BRONCHODILATORS PRN O2 PRN ANTIBIOTICS PER ID INCENTIVE SPIROMETER Dr Yoo
--- NOTE | 2017-04-19 14:22 | PN ---
Progress Note, Physician History of Present Illness: Pt in pain otherwise no specific complaints. - Current Medication List Current Medications: Active Medications Albuterol/Ipratropium (Duoneb -) 1 amp NEB Q4H PRN PRN Reason: SHORTNESS OF BREATH Carbidopa/Levodopa (Sinemet *Cr* 50/200 -) 1 combo PO 0700,1200,1700 [facility] Last Admin: 04/19/17 13:02 Dose: 1 combo Diazepam (Valium -) 5 mg PO Q6HPO [facility] Last Admin: 04/19/17 13:01 Dose: 5 mg Docusate Sodium (Colace -) 100 mg PO Q8H PRN PRN Reason: CONSTIPATION Gabapentin (Neurontin -) 400 mg PO TID [facility] Last Admin: 04/19/17 13:12 Dose: 400 mg Heparin Sodium (Porcine) (Heparin -) 5,000 unit SQ TID [facility] Last Admin: 04/19/17 13:01 Dose: 5,000 unit Hydromorphone HCl (Dilaudid Injection -) 0.5 mg IVPB Q3H PRN PRN Reason: PAIN Last Admin: 04/19/17 13:00 Dose: 0.5 mg Meropenem 1 gm/ Dextrose 100 mls @ 100 mls/hr IVPB Q8H-IV [facility] PRN Reason: Protocol Last Admin: 04/19/17 09:02 Dose: 100 mls/hr Lisinopril (Prinivil) 2.5 mg PO DAILY [facility] Last Admin: 04/19/17 09:00 Dose: 2.5 mg Magnesium Hydroxide (Milk Of Magnesia -) 30 ml PO Q8H PRN PRN Reason: CONSTIPATION Last Admin: 04/18/17 21:32 Dose: 30 ml Metoprolol Tartrate (Lopressor -) 50 mg PO TID [facility] Last Admin: 04/19/17 13:12 Dose: 50 mg Ondansetron HCl (Zofran Injection) 4 mg IVPUSH Q6H PRN PRN Reason: NAUSEA AND/OR VOMITING Oxycodone HCl (Oxycontin -) 10 mg PO BID [facility] Last Admin: 04/19/17 09:01 Dose: 10 mg Pantoprazole Sodium (Protonix -) 40 mg PO BID [facility] Last Admin: 04/19/17 09:00 Dose: 40 mg Polyethylene Glycol (Miralax (For Daily Use) -) 17 gm PO DAILY [facility] Last Admin: 04/19/17 10:35 Dose: 17 grams Potassium Phos/Sodium Phos (Phos-Nak Packet -) 1 packet PO BID [facility] Last Admin: 04/19/17 09:00 Dose: 1 packet Pramipexole Dihydrochloride (Mirapex -) 0.5 mg PO 0700,1200,1700 [facility] Last Admin: 04/19/17 13:02 Dose: 0.5 mg Pramipexole Dihydrochloride (Mirapex -) 0.5 mg PO HS [facility] Last Admin: 04/18/17 21:32 Dose: 0.5 mg - Objective Vital Signs: Vital Signs Temperature 99.2 F 04/19/17 10:00 Pulse Rate 68 04/19/17 10:00 Respiratory Rate 20 04/19/17 10:00 Blood Pressure 133/81 04/19/17 10:00 O2 Sat by Pulse Oximetry (%) 99 04/18/17 21:00 Constitutional: Yes: Moderate Distress (pain) Neck: Yes: Supple Cardiovascular: Yes: Regular Rate and Rhythm Respiratory: Yes: Regular Gastrointestinal: Yes: Normal Bowel Sounds, Soft Musculoskeletal: Yes: Back Pain, Other (s/p lumbar spine surgery, drain with bloody fluid) Extremities: Yes: WNL Wound/Incision: Yes: Dressing Dry and Intact Neurological: Yes: Alert Labs: CBC, BMP 04/19/17 06:25 04/18/17 09:50 INR, PTT INR 1.00 (0.82-1.09) 04/13/17 06:00 Assessment/Plan s/p Lumbar spine surgery - needs pain control - vitals relatively stable - continue antibiotics for now, plan discontinue if remains afebrile
--- NOTE | 2017-04-19 16:07 | PN ---
Progress Note (short form) - Note Progress Note: Subjective: The patient was seen and examined at the bedside, he appears comfortable, however is complaining of lower back pain. Current Medications Generic Name Dose Route Start Last Admin Trade Name Freq PRN Reason Stop Dose Admin Albuterol/Ipratropium 1 amp 04/16/17 16:18 Duoneb - NEB Q4H PRN SHORTNESS OF BREATH Carbidopa/Levodopa 1 combo 04/16/17 17:00 04/18/17 06:14 Sinemet *Cr* 50/200 - PO 1 combo 0700,1200,1700 SIENA Administration Docusate Sodium 100 mg 04/16/17 22:00 04/17/17 21:52 Colace - PO 100 mg BID SIENA Administration Gabapentin 200 mg 04/16/17 22:00 04/17/17 21:52 Neurontin - PO 200 mg HS SIENA Administration Gabapentin 100 mg 04/17/17 06:00 04/18/17 06:14 Neurontin - PO 100 mg 0600,1400 SIENA Administration Heparin Sodium (Porcine) 5,000 unit 04/16/17 22:00 04/18/17 06:13 Heparin - SQ 5,000 unit TID SIENA Administration Hydromorphone HCl 0.5 mg 04/16/17 16:18 04/18/17 06:13 Dilaudid Injection - IVPB 0.5 mg Q3H PRN Administration PAIN Meropenem 1 gm/ Dextrose 100 mls @ 100 mls/hr 04/16/17 14:00 04/18/17 01:29 IVPB 100 mls/hr Q8H-IV SIENA Administration Protocol Magnesium Hydroxide 30 ml 04/16/17 16:18 04/17/17 11:51 Milk Of Magnesia - PO 30 ml Q8H PRN Administration CONSTIPATION Metoprolol Tartrate 50 mg 04/17/17 14:00 04/18/17 06:14 Lopressor - PO 50 mg TID SIENA Administration Ondansetron HCl 4 mg 04/16/17 16:18 Zofran Injection IVPUSH Q6H PRN NAUSEA AND/OR VOMITING Pantoprazole Sodium 40 mg 04/16/17 22:00 04/17/17 21:52 Protonix - PO 40 mg BID SIENA Administration Polyethylene Glycol 17 gm 04/17/17 10:00 04/17/17 09:55 Miralax (For Daily Use) - PO 17 grams DAILY SIENA Administration Potassium Phos/Sodium Phos 1 packet 04/17/17 10:00 04/17/17 21:52 Phos-Nak Packet - PO 1 packet BID SIENA Administration Pramipexole Dihydrochloride 0.5 mg 04/16/17 17:00 04/18/17 06:14 Mirapex - PO 0.5 mg 0700,1200,1700 SIENA Administration Pramipexole Dihydrochloride 0.5 mg 04/16/17 22:00 04/17/17 21:52 Mirapex - PO 0.5 mg HS SIENA Administration Objective: Vital Signs Period Temp Pulse Resp BP Sys/Suazo Pulse Ox Last 24 Hr 98.7 F-99.6 F 68-80 18-20 124-147/69-84 99 Physical Exam: General: NAD, A&Ox3 Lungs: CTA bilaterally Heart: RRR, S1S2 Abd: Soft, non-tender, non-distended. Normoactive bowel sounds Ext: Warm, well-perfused 2+ DP/PT bilaterally Skin: Lower back dressing c/d/i, CRUZ drain in place CBCD WBC 10.5 K/mm3 (4.0-10.0) H 04/19/17 06:25 RBC 3.11 M/mm3 (4.00-5.60) L D 04/19/17 06:25 Hgb 10.1 GM/dL (11.7-16.9) L D 04/19/17 06:25 Hct 29.7 % (35.4-49) L D 04/19/17 06:25 MCV 95.3 fl (80-96) 04/19/17 06:25 MCHC 34.2 g/dl (32.0-35.9) 04/19/17 06:25 RDW 16.3 % (11.9-15.9) H D 04/19/17 06:25 Plt Count 245 K/MM3 (134-434) 04/19/17 06:25 MPV 8.8 fl (7.5-11.1) 04/19/17 06:25 CMP Sodium 138 mmol/L (136-145) 04/18/17 09:50 Potassium 4.2 mmol/L (3.5-5.1) 04/18/17 09:50 Chloride 104 mmol/L (98-107) 04/18/17 09:50 Carbon Dioxide 22 mmol/L (21-32) 04/18/17 09:50 Anion Gap 12 (8-16) 04/18/17 09:50 BUN 23 mg/dL (7-18) H D 04/18/17 09:50 Creatinine 1.1 mg/dL (0.7-1.3) 04/18/17 09:50 Creat Clearance w eGFR > 60 (>60) 04/17/17 06:30 Random Glucose 107 mg/dL (74-106) H D 04/18/17 09:50 Calcium 7.6 mg/dL (8.5-10.1) L 04/18/17 09:50 Total Bilirubin 0.6 mg/dL (0.2-1.0) D 04/17/17 06:30 AST 49 U/L (15-37) H 04/17/17 06:30 ALT 16 U/L (12-78) D 04/17/17 06:30 Alkaline Phosphatase 61 U/L (45-117) D 04/17/17 06:30 Total Protein 5.1 g/dl (6.4-8.2) L 04/17/17 06:30 Albumin 2.5 g/dl (3.4-5.0) L 04/17/17 06:30 CARDIAC ENZYMES Creatine Kinase 944 IU/L (39-308) H 04/15/17 17:30 Troponin I < 0.02 ng/ml (0.00-0.05) 04/16/17 05:00 Microbiology 04/15/17 17:30 Blood - Peripheral Venous Blood Culture - Preliminary NO GROWTH OBTAINED AFTER 72 HOURS, INCUBATION TO CONTINUE FOR 2 DAYS. 04/15/17 17:30 Blood - Peripheral Venous Blood Culture - Preliminary NO GROWTH OBTAINED AFTER 72 HOURS, INCUBATION TO CONTINUE FOR 2 DAYS. 04/15/17 17:15 Urine - Urine Medrano Urine Culture - Final NO GROWTH OBTAINED 04/11/17 15:40 Urine - Urine Clean Catch Urine Culture - Final Staphylococcus Epidermidis Assessment: This is a 71 year old male with PMHx of HTN, hyperlipidemia, paroxysmal a.fib, pulmonary HTN, COPD, depression, anxiety, CKD stage 3, chronic back and b/l leg pain who presented to the ED with worsening back and lower extremity pain Plan: 1) Acute on chronic b/l lower extremity pain: - S/p laminectomy with fusion T12-S2, repair pseudo menigoceal on 04/13 - Pain management: Oxycontin 10mg po bid, neurontin 400mg po tid - Appreciate neurology consult - Appreciate Dr. Queen consult - Appreciate pain management consult 2) PSVT - Continue Metoprolol 50mg po tid 3) Fever: - Afebrile - UTI: urine with staph epi (received Vanco x2 doses) - Now on empiric Meropenem for fevers 3) Parkinson's disease: - Continue Sinemet Cr 25/100 to tid - Continue Pramipexole to 0.25mg po qid 2) : Left testicular pain - Resolved - Scrotal ultrasound with left hydrocele CKD - Cr at baseline - Continue to monitor 3) Paroxysmal a.fib - Not on cardizem anymore 2/2 prior syncopal episodes - Patient is refusing anticoagulation for paf HTN - Continue Metoprolol 5) Pulmonary: COPD - Stable 6) F/E/N: - Sodium controlled diet - Monitor electrolytes 7) Prophylaxis: - Heparin 5,000u sq tid - PT daily 8) Dispo: - Requires continued inpatient care - Will need SNF once cleared by surgery CODE STATUS: FULL CODE Visit type - Emergency Visit Emergency Visit: Yes ED Registration Date: 04/11/17 Care time: The patient presented to the Emergency Department on the above date and was hospitalized for further evaluation of their emergent condition. - New Patient This patient is new to me today: No - Critical Care Critical Care patient: No
[2017-04-20] MEDS: diazePAM 5 MG TABLET PO SCH ×2 (00:16→12:44)
[2017-04-20] MEDS ORDERED: PT OWN MED DRAWER 7, Y5N ONE ×2 (01:29→06:54)
[2017-04-20] MEDS: MEROPENEM 1 GM in DEXTROSE 5%-WATER - 100 ML IVPB SCH ×2 (01:31→09:53)
--- NOTE | 2017-04-20 06:00 | FALL ---
Fall Exam - Event Witnessed fall: No Location of Fall: Patient Room Fall from: Bed - Pre-Fall Fall Risk: High Risk Mental Status: Alert, Oriented Current Medications: Current Medications Generic Name Dose Route Start Last Admin Trade Name Freq PRN Reason Stop Dose Admin Albuterol/Ipratropium 1 amp 04/16/17 16:18 04/19/17 17:14 Duoneb - NEB 1 amp Q4H PRN Administration SHORTNESS OF BREATH Carbidopa/Levodopa 1 combo 04/16/17 17:00 04/19/17 17:35 Sinemet *Cr* 50/200 - PO 1 combo 0700,1200,1700 SIENA Administration Diazepam 5 mg 04/19/17 00:00 04/20/17 00:16 Valium - PO 5 mg Q6HPO SIENA Administration Docusate Sodium 100 mg 04/18/17 14:21 Colace - PO Q8H PRN CONSTIPATION Gabapentin 400 mg 04/18/17 22:00 04/19/17 21:13 Neurontin - PO 400 mg TID SIENA Administration Heparin Sodium (Porcine) 5,000 unit 04/16/17 22:00 04/19/17 21:14 Heparin - SQ 5,000 unit TID SIENA Administration Hydromorphone HCl 0.5 mg 04/16/17 16:18 04/19/17 16:01 Dilaudid Injection - IVPB 0.5 mg Q3H PRN Administration PAIN Meropenem 1 gm/ Dextrose 100 mls @ 100 mls/hr 04/16/17 14:00 04/20/17 01:31 IVPB 100 mls/hr Q8H-IV SIENA Administration Protocol Lisinopril 2.5 mg 04/18/17 13:15 04/19/17 09:00 Prinivil PO 2.5 mg DAILY SIENA Administration Magnesium Hydroxide 30 ml 04/16/17 16:18 04/18/17 21:32 Milk Of Magnesia - PO 30 ml Q8H PRN Administration CONSTIPATION Metoprolol Tartrate 50 mg 04/17/17 14:00 04/19/17 21:12 Lopressor - PO 50 mg TID SIENA Administration Ondansetron HCl 4 mg 04/16/17 16:18 Zofran Injection IVPUSH Q6H PRN NAUSEA AND/OR VOMITING Oxycodone HCl 10 mg 04/18/17 22:00 04/19/17 21:13 Oxycontin - PO 10 mg BID SIENA Administration Pantoprazole Sodium 40 mg 04/16/17 22:00 04/19/17 21:12 Protonix - PO 40 mg BID SIENA Administration Polyethylene Glycol 17 gm 04/17/17 10:00 04/19/17 10:35 Miralax (For Daily Use) - PO 17 grams DAILY SIENA Administration Potassium Phos/Sodium Phos 1 packet 04/17/17 10:00 04/19/17 21:15 Phos-Nak Packet - PO 1 packet BID SIENA Administration Pramipexole Dihydrochloride 0.5 mg 04/16/17 17:00 04/19/17 17:35 Mirapex - PO 0.5 mg 0700,1200,1700 SIENA Administration Pramipexole Dihydrochloride 0.5 mg 04/16/17 22:00 04/19/17 21:15 Mirapex - PO 0.5 mg HS SIENA Administration - Post-Fall Patient Outcome: Laceration, Abrasion/Bruise Exam Findings: rapid response was called at approximately 4:30 am. Patient was found on ground next to his bed. The patient had a single laceration to the front of the head and an abrasion to the left arm. The patient states that he hit his head. On exam, he was alert and orientedx3, moving all four limbs spontaneously. Neuro exam was unremarkable. No focal tenderness over any bony prominences. Patient was sent for CT of the head and cervical spine as well as an xray of his left elbow. Will follow results. Treatment: Dressing Vital Signs: Vital Signs Temperature 99.7 F H 04/20/17 02:00 Pulse Rate 73 04/20/17 02:00 Respiratory Rate 18 04/20/17 02:00 Blood Pressure 126/67 04/20/17 02:00 O2 Sat by Pulse Oximetry (%) 95 04/19/17 21:00 LOC Post-Fall: Unchanged Identify factors for HIGH RISK for Head Injury: Known to have hit head
[2017-04-20] MEDS: GABAPENTIN 400 MG CAPSULE (FP) PO SCH ×3 (06:23→22:23)
--- NOTE | 2017-04-20 07:27 | RAPID ---
Physical Examination Vital Signs: Vital Signs Temperature 99.7 F H 04/20/17 02:00 Pulse Rate 73 04/20/17 02:00 Respiratory Rate 18 04/20/17 02:00 Blood Pressure 126/67 04/20/17 02:00 O2 Sat by Pulse Oximetry (%) 95 04/19/17 21:00 Constitutional: Yes: Well Nourished, Anxious Eyes: Yes: WNL HENT: Yes: Other (small laceration on forehead with minimal bleeding) Neck: Yes: Supple Cardiovascular: Yes: Regular Rate and Rhythm Respiratory: Yes: Regular Gastrointestinal: Yes: Normal Bowel Sounds Musculoskeletal: Yes: Other (left elbow abrasion) Extremities: Yes: WNL Peripheral Pulses WNL: No Integumentary: Yes: WNL Neurological: Yes: WNL ...Motor Strength: WNL Psychiatric: Yes: WNL Labs: CBC, BMP 04/19/17 06:25 04/18/17 09:50 Rapid Response - Rapid Response Assessment: 71yo male s/p lumbar laminectomy with fusion of t12-s2 on 04/13 who was found to have fallen out of bed this morning at around 4:20am this morning. Rapid response was called. Patient was anxious, was lifted into stretcher. Neuro exam was wnl. He was AAox3. No muscle or bone tenderness noted. Pt noted to have small laceration on anterior forehead with scant bleeding, and left elbow abrasion. Not on anticoagulation or antiplatelets. Pt was sent down for head CT , C spine CT, left elbow xray. He is signed out to day team. Outcome: To f/u imaging results Recommendations/Interventions: Neuro assessment, imaging as noted previously. Primary Physician Notified: Paramjit Muro Time PMD Notified: 04:20 Plan: Day team to f/u imaging results.
--- NOTE | 2017-04-20 08:30 | PN ---
Progress Note, Physician Chief Complaint: events last night noted. \s/p fall History of Present Illness: 71 year old man h/o HTN, HLD, AFib, LBBB, COPD, chronic back and leg pain on multiple medications, h/o recurrent syncope admitted with severe acute on chronic lower back and leg pain. Pt was seen by neurology and neurosurgery yesterday. Neurology felt surgery would not be helpful but neurosurgery felt that surgery could offer some relief of his pain and disability and thus he is planned for surgical intervention. Pt was seen and examined today in nad. No overnight events. no new complaints. He states that his back and leg pain was so severe that he was significantly disabled at home and it was not responsive to medications. He denies having any chest pain, sob, palpitations. No pnd, orthopnea, or LE edema. No recent recurrent syncope or near syncope. - Current Medication List Current Medications: Active Medications Albuterol/Ipratropium (Duoneb -) 1 amp NEB Q4H PRN PRN Reason: SHORTNESS OF BREATH Last Admin: 04/19/17 17:14 Dose: 1 amp Carbidopa/Levodopa (Sinemet *Cr* 50/200 -) 1 combo PO 0700,1200,1700 [facility] Last Admin: 04/19/17 17:35 Dose: 1 combo Diazepam (Valium -) 5 mg PO Q6HPO [facility] Last Admin: 04/20/17 00:16 Dose: 5 mg Docusate Sodium (Colace -) 100 mg PO Q8H PRN PRN Reason: CONSTIPATION Gabapentin (Neurontin -) 400 mg PO TID [facility] Last Admin: 04/19/17 21:13 Dose: 400 mg Heparin Sodium (Porcine) (Heparin -) 5,000 unit SQ TID [facility] Last Admin: 04/19/17 21:14 Dose: 5,000 unit Hydromorphone HCl (Dilaudid Injection -) 0.5 mg IVPB Q3H PRN PRN Reason: PAIN Last Admin: 04/19/17 16:01 Dose: 0.5 mg Meropenem 1 gm/ Dextrose 100 mls @ 100 mls/hr IVPB Q8H-IV SIENA PRN Reason: Protocol Last Admin: 04/20/17 01:31 Dose: 100 mls/hr Lisinopril (Prinivil) 2.5 mg PO DAILY [facility] Last Admin: 04/19/17 09:00 Dose: 2.5 mg Magnesium Hydroxide (Milk Of Magnesia -) 30 ml PO Q8H PRN PRN Reason: CONSTIPATION Last Admin: 04/18/17 21:32 Dose: 30 ml Metoprolol Tartrate (Lopressor -) 50 mg PO TID [facility] Last Admin: 04/19/17 21:12 Dose: 50 mg Ondansetron HCl (Zofran Injection) 4 mg IVPUSH Q6H PRN PRN Reason: NAUSEA AND/OR VOMITING Oxycodone HCl (Oxycontin -) 10 mg PO BID [facility] Last Admin: 04/19/17 21:13 Dose: 10 mg Pantoprazole Sodium (Protonix -) 40 mg PO BID [facility] Last Admin: 04/19/17 21:12 Dose: 40 mg Polyethylene Glycol (Miralax (For Daily Use) -) 17 gm PO DAILY [facility] Last Admin: 04/19/17 10:35 Dose: 17 grams Potassium Phos/Sodium Phos (Phos-Nak Packet -) 1 packet PO BID [facility] Last Admin: 04/19/17 21:15 Dose: 1 packet Pramipexole Dihydrochloride (Mirapex -) 0.5 mg PO 0700,1200,1700 [facility] Last Admin: 04/19/17 17:35 Dose: 0.5 mg Pramipexole Dihydrochloride (Mirapex -) 0.5 mg PO HS [facility] Last Admin: 04/19/17 21:15 Dose: 0.5 mg - Objective Vital Signs: Vital Signs Temperature 99.7 F H 04/20/17 02:00 Pulse Rate 82 04/20/17 06:00 Respiratory Rate 20 04/20/17 06:00 Blood Pressure 152/80 04/20/17 06:00 O2 Sat by Pulse Oximetry (%) 95 04/19/17 21:00 Eyes: Yes: WNL, Conjunctiva Clear, EOM Intact HENT: Yes: WNL, Atraumatic, Normocephalic Neck: Yes: WNL, Supple, Trachea Midline Cardiovascular: Yes: WNL, Regular Rate and Rhythm Respiratory: Yes: WNL, Regular, CTA Bilaterally Gastrointestinal: Yes: WNL, Normal Bowel Sounds Genitourinary: Yes: WNL Musculoskeletal: Yes: WNL Extremities: Yes: WNL Edema: No Integumentary: Yes: WNL Neurological: Yes: Alert, Oriented ...Motor Strength: WNL Psychiatric: Yes: WNL Labs: CBC, BMP 04/19/17 06:25 04/18/17 09:50 INR, PTT INR 1.00 (0.82-1.09) 04/13/17 06:00 Assessment/Plan - Problems (1) BPH (benign prostatic hyperplasia) Code(s): N40.0 - BENIGN PROSTATIC HYPERPLASIA WITHOUT LOWER URINRY TRACT SYMP (2) Chronic obstructive pulmonary disease (COPD) Code(s): J44.9 - CHRONIC OBSTRUCTIVE PULMONARY DISEASE, UNSPECIFIED (3) Diverticulosis Code(s): K57.90 - DVRTCLOS OF INTEST, PART UNSP, W/O PERF OR ABSCESS W/O BLEED (4) Syncope Code(s): R55 - SYNCOPE AND COLLAPSE Qualifiers: Qualified Code(s): R55 - Syncope and collapse (5) Back pain Assessment/Plan: pain management. Physical rehabilitation. Code(s): M54.9 - DORSALGIA, UNSPECIFIED Qualifiers: Qualified Code(s): M54.5 - Low back pain (6) Depression Code(s): F32.9 - MAJOR DEPRESSIVE DISORDER, SINGLE EPISODE, UNSPECIFIED Qualifiers: Qualified Code(s): F33.0 - Major depressive disorder, recurrent, mild (7) HTN (hypertension) Assessment/Plan: On amlodipine will discontinue, as metoprolol dsoe is being increased for HR and BP. F/u BMP, electgrolytes; consider restartin lisinopril (reduced LVEF; HTN). Code(s): I10 - ESSENTIAL (PRIMARY) HYPERTENSION Qualifiers: Qualified Code(s): I10 - Essential (primary) hypertension (8) Hyperlipidemia Assessment/Plan: f/u lipids (total cholesterol 151 mg/dL on 05/2016). Code(s): E78.5 - HYPERLIPIDEMIA, UNSPECIFIED Qualifiers: Qualified Code(s): E78.5 - Hyperlipidemia, unspecified (9) LBBB (left bundle branch block) Code(s): I44.7 - LEFT BUNDLE-BRANCH BLOCK, UNSPECIFIED (10) SVT (supraventricular tachycardia) Assessment/Plan: metoprolol started (for systolic CHF and PSVT); increased to 50 mg tid because of continued episodes of PSVT. Holter 04/17: NSR; LBBB; PSVT; brief run of what was likely PAT. Mg repleted; maintain all electrolytes (keep K- 4-4.5; Mg 2-2.3; PO4 2.5-3.5) TSH WNL. Pain management. Maintain hydration; f/u anemia workup. Code(s): I47.1 - SUPRAVENTRICULAR TACHYCARDIA (11) CKD (chronic kidney disease) stage 3, GFR 30-59 ml/min Code(s): N18.3 - CHRONIC KIDNEY DISEASE, STAGE 3 (MODERATE) (12) Osteoporosis Code(s): M81.0 - AGE-RELATED OSTEOPOROSIS W/O CURRENT PATHOLOGICAL FRACTURE (13) Weakness Code(s): R53.1 - WEAKNESS (14) Systolic CHF Assessment/Plan: mildly reduced LVEF on 11/18 ECHO, with mild MR and TR. Start metoprolol; f/u BP and HR. Add lisinopril if BP remains stable; f/u BUN/Cr, electrolytes. Now afebrile. Code(s): I50.20 - UNSPECIFIED SYSTOLIC (CONGESTIVE) HEART FAILURE (15) S/P laminectomy Assessment/Plan: f/u with neurosurgeon. Code(s): Z98.890 - OTHER SPECIFIED POSTPROCEDURAL STATES (16) Atypical chest pain Assessment/Plan: hx atypical chest pain; latest stress MIBI at [facility] a little more than a year ago reportedly without ischemia; f/u report. Presently has both chest and back pain; EKG unchanged. TNI has remained 0.02. Code(s): R07.89 - OTHER CHEST PAIN (17) Anemia Assessment/Plan: f/u significant drop in Hb. s/p PRBCs. Code(s): D64.9 - ANEMIA, UNSPECIFIED (18) Parkinson disease Assessment/Plan: on Sinemet. Code(s): G20 - PARKINSON'S DISEASE
--- NOTE | 2017-04-20 08:35 | PN ---
Progress Note (short form) - Note Progress Note: Subjective: The patient was seen and examined at the bedside, he fell out of bed last night and hit his head. The patient reportedly tried to get up to use the restroom and fell and hit his head. Denies any loss of consciousness, however fall was unwitnessed. Head CT: No evidence of acute intracranial pathology CT C-spine: mild degenerative arthritis, no fracture of acute pathology X-ray Left Elbow: No acute pathology Currently stating pain 3/10 and that he is comfortable Current Medications Generic Name Dose Route Start Last Admin Trade Name Freq PRN Reason Stop Dose Admin Albuterol/Ipratropium 1 amp 04/16/17 16:18 04/19/17 17:14 Duoneb - NEB 1 amp Q4H PRN Administration SHORTNESS OF BREATH Carbidopa/Levodopa 1 combo 04/16/17 17:00 04/19/17 17:35 Sinemet *Cr* 50/200 - PO 1 combo 0700,1200,1700 [facility] Administration Diazepam 5 mg 04/19/17 00:00 04/20/17 00:16 Valium - PO 5 mg Q6HPO [facility] Administration Docusate Sodium 100 mg 04/18/17 14:21 Colace - PO Q8H PRN CONSTIPATION Gabapentin 400 mg 04/18/17 22:00 04/19/17 21:13 Neurontin - PO 400 mg TID [facility] Administration Heparin Sodium (Porcine) 5,000 unit 04/16/17 22:00 04/19/17 21:14 Heparin - SQ 5,000 unit TID [facility] Administration Hydromorphone HCl 0.5 mg 04/16/17 16:18 04/19/17 16:01 Dilaudid Injection - IVPB 0.5 mg Q3H PRN Administration PAIN Meropenem 1 gm/ Dextrose 100 mls @ 100 mls/hr 04/16/17 14:00 04/20/17 01:31 IVPB 100 mls/hr Q8H-IV [facility] Administration Protocol Lisinopril 2.5 mg 04/18/17 13:15 04/19/17 09:00 Prinivil PO 2.5 mg DAILY [facility] Administration Magnesium Hydroxide 30 ml 04/16/17 16:18 04/18/17 21:32 Milk Of Magnesia - PO 30 ml Q8H PRN Administration CONSTIPATION Metoprolol Tartrate 50 mg 04/17/17 14:00 04/19/17 21:12 Lopressor - PO 50 mg TID [facility] Administration Ondansetron HCl 4 mg 04/16/17 16:18 Zofran Injection IVPUSH Q6H PRN NAUSEA AND/OR VOMITING Oxycodone HCl 10 mg 04/18/17 22:00 04/19/17 21:13 Oxycontin - PO 10 mg BID [facility] Administration Pantoprazole Sodium 40 mg 04/16/17 22:00 04/19/17 21:12 Protonix - PO 40 mg BID [facility] Administration Polyethylene Glycol 17 gm 04/17/17 10:00 04/19/17 10:35 Miralax (For Daily Use) - PO 17 grams DAILY [facility] Administration Potassium Phos/Sodium Phos 1 packet 04/17/17 10:00 04/19/17 21:15 Phos-Nak Packet - PO 1 packet BID [facility] Administration Pramipexole Dihydrochloride 0.5 mg 04/16/17 17:00 04/19/17 17:35 Mirapex - PO 0.5 mg 0700,1200,1700 [facility] Administration Pramipexole Dihydrochloride 0.5 mg 04/16/17 22:00 04/19/17 21:15 Mirapex - PO 0.5 mg HS [facility] Administration Objective: Vital Signs Period Temp Pulse Resp BP Sys/Suazo Pulse Ox Last 24 Hr 99.2 F-99.8 F 68-87 18-20 126-152/59-96 95 Physical Exam: General: NAD, A&Ox3 HEENT: Frontal head laceration, dried blood Lungs: CTA bilaterally Heart: RRR, S1S2 Abd: Soft, non-tender, non-distended. Normoactive bowel sounds. No spinal tenderness Ext: Warm, well-perfused 2+ DP/PT bilaterally Skin: Lower back dressing c/d/i, CRUZ drain in place CBCD WBC 10.5 K/mm3 (4.0-10.0) H 04/19/17 06:25 RBC 3.11 M/mm3 (4.00-5.60) L D 04/19/17 06:25 Hgb 10.1 GM/dL (11.7-16.9) L D 04/19/17 06:25 Hct 29.7 % (35.4-49) L D 04/19/17 06:25 MCV 95.3 fl (80-96) 04/19/17 06:25 MCHC 34.2 g/dl (32.0-35.9) 04/19/17 06:25 RDW 16.3 % (11.9-15.9) H D 04/19/17 06:25 Plt Count 245 K/MM3 (134-434) 04/19/17 06:25 MPV 8.8 fl (7.5-11.1) 04/19/17 06:25 CMP Sodium 138 mmol/L (136-145) 04/18/17 09:50 Potassium 4.2 mmol/L (3.5-5.1) 04/18/17 09:50 Chloride 104 mmol/L (98-107) 04/18/17 09:50 Carbon Dioxide 22 mmol/L (21-32) 04/18/17 09:50 Anion Gap 12 (8-16) 04/18/17 09:50 BUN 23 mg/dL (7-18) H D 04/18/17 09:50 Creatinine 1.1 mg/dL (0.7-1.3) 04/18/17 09:50 Creat Clearance w eGFR > 60 (>60) 04/17/17 06:30 Random Glucose 107 mg/dL (74-106) H D 04/18/17 09:50 Calcium 7.6 mg/dL (8.5-10.1) L 04/18/17 09:50 Total Bilirubin 0.6 mg/dL (0.2-1.0) D 04/17/17 06:30 AST 49 U/L (15-37) H 04/17/17 06:30 ALT 16 U/L (12-78) D 04/17/17 06:30 Alkaline Phosphatase 61 U/L (45-117) D 04/17/17 06:30 Total Protein 5.1 g/dl (6.4-8.2) L 04/17/17 06:30 Albumin 2.5 g/dl (3.4-5.0) L 04/17/17 06:30 CARDIAC ENZYMES Creatine Kinase 944 IU/L (39-308) H 04/15/17 17:30 Troponin I < 0.02 ng/ml (0.00-0.05) 04/16/17 05:00 Microbiology 04/15/17 17:30 Blood - Peripheral Venous Blood Culture - Preliminary NO GROWTH OBTAINED AFTER 96 HOURS, INCUBATION TO CONTINUE FOR 1 DAYS. 04/15/17 17:30 Blood - Peripheral Venous Blood Culture - Preliminary NO GROWTH OBTAINED AFTER 96 HOURS, INCUBATION TO CONTINUE FOR 1 DAYS. 04/15/17 17:15 Urine - Urine Medrano Urine Culture - Final NO GROWTH OBTAINED 04/11/17 15:40 Urine - Urine Clean Catch Urine Culture - Final Staphylococcus Epidermidis Assessment: This is a 71 year old male with PMHx of HTN, hyperlipidemia, paroxysmal a.fib, pulmonary HTN, COPD, depression, anxiety, CKD stage 3, chronic back and b/l leg pain who presented to the ED with worsening back and lower extremity pain Plan: 1) S/p fall out of bed - Patient reports he hit his head, had small laceration on forehead - Imaging as above - Repeat head CT this afternoon (patient on Heparin for DVT prophylaxis) - F/u lumbar x-ray - Dr. Queen aware of fall, discussed 2) Acute on chronic b/l lower extremity pain: - S/p laminectomy with fusion T12-S2, repair pseudo menigoceal on 04/13 - Pain management: Oxycontin 10mg po bid, neurontin 400mg po tid - Appreciate neurology consult - Appreciate Dr. Queen consult - Appreciate pain management consult 3) PSVT - Continue Metoprolol 50mg po tid 4) Fever: - Afebrile - UTI: urine with staph epi (received Vanco x2 doses) - Now on empiric Meropenem for fevers - Appreciate ID consult 5) Parkinson's disease: - Continue Sinemet Cr 25/100 to tid - Continue Pramipexole to 0.25mg po qid 6) : Left testicular pain - Resolved - Scrotal ultrasound with left hydrocele CKD - Cr at baseline - Continue to monitor 7) Paroxysmal a.fib - Not on cardizem anymore 2/2 prior syncopal episodes - Patient is refusing anticoagulation for paf HTN - Continue Metoprolol 8) Pulmonary: COPD - Stable 9) F/E/N: - Sodium controlled diet - Monitor electrolytes 10) Prophylaxis: - Hold Heparin for DVT prophylaxis as the patient had fall and hit head - PT daily 11) Dispo: - Requires continued inpatient care - Will need SNF once cleared by surgery CODE STATUS: FULL CODE Visit type - Emergency Visit Emergency Visit: Yes ED Registration Date: 04/11/17 Care time: The patient presented to the Emergency Department on the above date and was hospitalized for further evaluation of their emergent condition. - New Patient This patient is new to me today: No - Critical Care Critical Care patient: No
[2017-04-20] MEDS: HYDROmorphone HCL CARPU-JECT 1 MG/1 ML DISP.SYRIN IVPB PRN ×2 (08:50→12:34)
[2017-04-20] MEDS: PRAMIPEXOLE DIHYDROCHLORIDE 0.5 MG TABLET PO SCH ×4 (09:52→22:22)
[2017-04-20] MEDS: METOPROLOL TARTRATE 50 MG TABLET (FP) PO SCH ×3 (09:52→22:22)
[2017-04-20] MEDS: POLYETHYLENE GLYCOL 3350 119 GM BTL PO SCH ×2 (09:53→17:51)
[2017-04-20] MEDS: oxyCODONE HCL 10 MG SUSTAINED ACTING TABLET PO SCH ×2 (09:54→22:23)
[2017-04-20] MEDS: NAPH,MB-DB/K PH,MBDB POWDER PACKET PO SCH ×2 (09:55→22:24)
[2017-04-20] MEDS: PANTOPRAZOLE 40 MG TABLET (FP) PO SCH ×2 (09:55→22:22)
[2017-04-20] MEDS: LISINOPRIL 5 MG TABLET (FP) PO SCH (09:56)
[2017-04-20] MEDS: ALBUTEROL SO4 2.5/IPRATROPIUM 0.5 INH SOL 3 ML VIAL.NEB. NEB PRN (11:30)
--- NOTE | 2017-04-20 12:17 | PN ---
Progress Note (short form) - Note Progress Note: Patient seen and examined on the Telemetry unit. Noted that he had an unwitnessed fall overnight and hit his head. CT Head: no acute process. Awake and alert. Still with pain issues. Denies CP or SOB. Intake & Output 04/17/17 04/18/17 04/19/17 04/20/17 23:59 23:59 23:59 23:59 Intake Total 3270 1150 1250 300 Output Total 700 395 490 175 Balance 2570 755 760 125 Last Vital Signs Temp Pulse Resp BP Pulse Ox 98.4 F 88 20 121/58 98 04/20/17 11:40 04/20/17 11:40 04/20/17 11:40 04/20/17 11:40 04/20/17 10:00 Active Medications Albuterol/Ipratropium (Duoneb -) 1 amp NEB Q4H PRN PRN Reason: SHORTNESS OF BREATH Last Admin: 04/19/17 17:14 Dose: 1 amp Carbidopa/Levodopa (Sinemet *Cr* 50/200 -) 1 combo PO 0700,1200,1700 [facility] Last Admin: 04/20/17 09:52 Dose: 1 combo Diazepam (Valium -) 5 mg PO Q6HPO [facility] Last Admin: 04/20/17 00:16 Dose: 5 mg Docusate Sodium (Colace -) 100 mg PO Q8H PRN PRN Reason: CONSTIPATION Gabapentin (Neurontin -) 400 mg PO TID [facility] Last Admin: 04/19/17 21:13 Dose: 400 mg Hydromorphone HCl (Dilaudid Injection -) 0.5 mg IVPB Q3H PRN PRN Reason: PAIN Last Admin: 04/19/17 16:01 Dose: 0.5 mg Meropenem 1 gm/ Dextrose 100 mls @ 100 mls/hr IVPB Q8H-IV [facility]IE[facility] PRN Reason: Protocol Last Admin: 04/20/17 09:53 Dose: 100 mls/hr Lisinopril (Prinivil) 2.5 mg PO DAILY [facility] Last Admin: 04/20/17 09:56 Dose: 2.5 mg Magnesium Hydroxide (Milk Of Magnesia -) 30 ml PO Q8H PRN PRN Reason: CONSTIPATION Last Admin: 04/18/17 21:32 Dose: 30 ml Metoprolol Tartrate (Lopressor -) 50 mg PO TID [facility] Last Admin: 04/20/17 09:52 Dose: 50 mg Ondansetron HCl (Zofran Injection) 4 mg IVPUSH Q6H PRN PRN Reason: NAUSEA AND/OR VOMITING Oxycodone HCl (Oxycontin -) 10 mg PO BID [facility] Last Admin: 04/20/17 09:54 Dose: Not Given Pantoprazole Sodium (Protonix -) 40 mg PO BID [facility] Last Admin: 04/20/17 09:55 Dose: 40 mg Polyethylene Glycol (Miralax (For Daily Use) -) 17 gm PO DAILY [facility] Last Admin: 04/20/17 09:53 Dose: 17 gm Potassium Phos/Sodium Phos (Phos-Nak Packet -) 1 packet PO BID [facility] Last Admin: 04/20/17 09:55 Dose: 1 packet Pramipexole Dihydrochloride (Mirapex -) 0.5 mg PO 0700,1200,1700 [facility] Last Admin: 04/20/17 09:52 Dose: 0.5 mg Pramipexole Dihydrochloride (Mirapex -) 0.5 mg PO HS [facility] Last Admin: 04/19/17 21:15 Dose: 0.5 mg Constitutional: Yes: NAD Eyes: Yes: WNL HENT: Yes: WNL Neck: Yes: WNL Cardiovascular: Yes: Regular Rate and Rhythm, S1, S2 Respiratory: Yes: Diminished Gastrointestinal: Yes: Normal Bowel Sounds, Soft Extremities: Yes: WNL Edema: No Labs: Problem List - Problems (1) Chronic obstructive pulmonary disease (COPD) Code(s): J44.9 - CHRONIC OBSTRUCTIVE PULMONARY DISEASE, UNSPECIFIED (2) Lower extremity pain Code(s): M79.606 - PAIN IN LEG, UNSPECIFIED Qualifiers: Qualified Code(s): M79.604 - Pain in right leg (3) Carotid stenosis Code(s): I65.29 - OCCLUSION AND STENOSIS OF UNSPECIFIED CAROTID ARTERY (4) HTN (hypertension) Code(s): I10 - ESSENTIAL (PRIMARY) HYPERTENSION Qualifiers: Qualified Code(s): I10 - Essential (primary) hypertension (5) Afib Code(s): I48.91 - UNSPECIFIED ATRIAL FIBRILLATION (6) CKD (chronic kidney disease) stage 3, GFR 30-59 ml/min Code(s): N18.3 - CHRONIC KIDNEY DISEASE, STAGE 3 (MODERATE) (7) BPH (benign prostatic hyperplasia) Code(s): N40.0 - BENIGN PROSTATIC HYPERPLASIA WITHOUT LOWER URINRY TRACT SYMP (8) Back pain Code(s): M54.9 - DORSALGIA, UNSPECIFIED Qualifiers: Qualified Code(s): M54.5 - Low back pain Assessment/Plan IMP COPD STABLE PAF CHRONIC BACK PAIN S/P T12-S2 LAMINECTOMIES/DECOMPRESSION/FUSION HTN PULMONARY HTN CKD [employer]CA[employer]IONS INHALED BRONCHODILATORS PRN O2 PRN ANTIBIOTICS PER ID INCENTIVE SPIROMETER Dr Yoo
[2017-04-20] MEDS: MAGNESIUM HYDROX 2400MG/30ML ORAL SUSPENSION 30 ML CUP PO PRN (12:43)
--- NOTE | 2017-04-20 13:59 | PN ---
Progress Note, Physician History of Present Illness: Events noted. Pt in less distress. Currently without pain. - Current Medication List Current Medications: Active Medications Albuterol/Ipratropium (Duoneb -) 1 amp NEB Q4H PRN PRN Reason: SHORTNESS OF BREATH Last Admin: 04/20/17 11:30 Dose: 1 amp Carbidopa/Levodopa (Sinemet *Cr* 50/200 -) 1 combo PO 0700,1200,1700 [facility] Last Admin: 04/20/17 12:44 Dose: 1 combo Diazepam (Valium -) 5 mg PO Q6HPO [facility] Last Admin: 04/20/17 12:44 Dose: 5 mg Docusate Sodium (Colace -) 100 mg PO Q8H PRN PRN Reason: CONSTIPATION Gabapentin (Neurontin -) 400 mg PO TID [facility] Last Admin: 04/19/17 21:13 Dose: 400 mg Hydromorphone HCl (Dilaudid Injection -) 0.5 mg IVPB Q3H PRN PRN Reason: PAIN Last Admin: 04/20/17 12:34 Dose: 0.5 mg Meropenem 1 gm/ Dextrose 100 mls @ 100 mls/hr IVPB Q8H-IV [facility] PRN Reason: Protocol Last Admin: 04/20/17 09:53 Dose: 100 mls/hr Lisinopril (Prinivil) 2.5 mg PO DAILY [facility] Last Admin: 04/20/17 09:56 Dose: 2.5 mg Magnesium Hydroxide (Milk Of Magnesia -) 30 ml PO Q8H PRN PRN Reason: CONSTIPATION Last Admin: 04/20/17 12:43 Dose: 30 ml Metoprolol Tartrate (Lopressor -) 50 mg PO TID [facility] Last Admin: 04/20/17 09:52 Dose: 50 mg Ondansetron HCl (Zofran Injection) 4 mg IVPUSH Q6H PRN PRN Reason: NAUSEA AND/OR VOMITING Oxycodone HCl (Oxycontin -) 10 mg PO BID [facility] Last Admin: 04/20/17 09:54 Dose: Not Given Pantoprazole Sodium (Protonix -) 40 mg PO BID [facility] Last Admin: 04/20/17 09:55 Dose: 40 mg Polyethylene Glycol (Miralax (For Daily Use) -) 17 gm PO DAILY [facility] Last Admin: 04/20/17 09:53 Dose: 17 gm Potassium Phos/Sodium Phos (Phos-Nak Packet -) 1 packet PO BID [facility] Last Admin: 04/20/17 09:55 Dose: 1 packet Pramipexole Dihydrochloride (Mirapex -) 0.5 mg PO 0700,1200,1700 [facility] Last Admin: 04/20/17 12:44 Dose: 0.5 mg Pramipexole Dihydrochloride (Mirapex -) 0.5 mg PO HS [facility] Last Admin: 04/19/17 21:15 Dose: 0.5 mg - Objective Vital Signs: Vital Signs Temperature 98.7 F 04/20/17 13:30 Pulse Rate 74 04/20/17 13:30 Respiratory Rate 20 04/20/17 13:30 Blood Pressure 99/46 04/20/17 13:30 O2 Sat by Pulse Oximetry (%) 98 04/20/17 10:00 Constitutional: Yes: No Distress Cardiovascular: Yes: Regular Rate and Rhythm Respiratory: Yes: Regular Gastrointestinal: Yes: Normal Bowel Sounds, Soft Genitourinary: Yes: WNL Wound/Incision: Yes: Clean/Dry, Dressing Dry and Intact, Other (drain with bloody fluid) Neurological: Yes: Alert Labs: CBC, BMP 04/19/17 06:25 04/18/17 09:50 INR, PTT INR 1.00 (0.82-1.09) 04/13/17 06:00 Assessment/Plan Chronic back pain s/p T12-S2 laminectomy/decompression/fusion afebrile, alert d/c antibiotics monitor closely
[2017-04-20] MEDS: oxyCODONE HCL 5 MG TABLET PO PRN (17:50)
[2017-04-21] MEDS: diazePAM 5 MG TABLET PO PRN ×3 (01:34→16:22)
[2017-04-21] MEDS: oxyCODONE HCL 5 MG TABLET PO PRN ×3 (04:28→20:46)
[2017-04-21] MEDS ORDERED: PT OWN MED DRAWER 7, Y5N ONE ×3 (06:09→12:01)
[2017-04-21] MEDS: METOPROLOL TARTRATE 50 MG TABLET (FP) PO SCH ×3 (06:11→22:24)
[2017-04-21] MEDS: PRAMIPEXOLE DIHYDROCHLORIDE 0.5 MG TABLET PO SCH ×4 (06:11→22:24)
[2017-04-21] MEDS: GABAPENTIN 400 MG CAPSULE (FP) PO SCH ×3 (06:11→22:24)
[2017-04-21 07:25] LABS: MCH 32.8 pg (25.7-33.7); MCHC 33.7 g/dl (32.0-35.9); MEAN CELL VOLUME 97.4 fl (80-96); MEAN PLT VOLUME 8.7 fl (7.5-11.1); PLATELET COUNT 375 K/MM3 (134-434); RDW 15.8 % (11.9-15.9)
[2017-04-21 07:46] LABS: ANION GAP 11 (8-16); CALCIUM 8.2 mg/dL (8.5-10.1); CO2 26 mmol/L (21-32); CREATININE 1.2 mg/dL (0.7-1.3); GLUCOSE,RANDOM 89 mg/dL (74-106); SGOT/AST 53 U/L (15-37); SGPT/ALT 35 U/L (12-78)
[2017-04-21 07:48] LABS: ALK PHOS 85 U/L (45-117); BILIRUBIN,TOTAL 0.7 mg/dL (0.2-1.0); TOT PROT 5.7 g/dl (6.4-8.2)
[2017-04-21] MEDS: FERROUS SO4 325 MG TABLET (FP) PO SCH ×2 (08:34→16:30)
[2017-04-21] MEDS: POLYETHYLENE GLYCOL 3350 119 GM BTL PO SCH (09:10)
[2017-04-21] MEDS: LISINOPRIL 5 MG TABLET (FP) PO SCH (09:10)
[2017-04-21] MEDS: PANTOPRAZOLE 40 MG TABLET (FP) PO SCH ×2 (09:10→22:24)
--- NOTE | 2017-04-21 12:44 | PN ---
Progress Note, Physician History of Present Illness: PULMONARY ALERT,CONFUSED ,-RESP DISTRESS - Current Medication List Current Medications: Active Medications Albuterol/Ipratropium (Duoneb -) 1 amp NEB Q4H PRN PRN Reason: SHORTNESS OF BREATH Last Admin: 04/20/17 11:30 Dose: 1 amp Carbidopa/Levodopa (Sinemet *Cr* 50/200 -) 1 combo PO 0700,1200,1700 [facility] Last Admin: 04/21/17 12:20 Dose: 1 combo Diazepam (Valium -) 5 mg PO Q6HPO PRN PRN Reason: LOWER BACK PAIN Last Admin: 04/21/17 08:33 Dose: 5 mg Docusate Sodium (Colace -) 100 mg PO Q8H PRN PRN Reason: CONSTIPATION Ferrous Sulfate (Feosol -) 325 mg PO BID@0800,1730 [facility] Last Admin: 04/21/17 08:34 Dose: 325 mg Gabapentin (Neurontin -) 400 mg PO TID [facility] Last Admin: 04/21/17 06:11 Dose: 400 mg Heparin Sodium (Porcine) (Heparin -) 5,000 unit SQ TID [facility] Lisinopril (Prinivil) 2.5 mg PO DAILY [facility] Last Admin: 04/21/17 09:10 Dose: 2.5 mg Magnesium Hydroxide (Milk Of Magnesia -) 30 ml PO Q8H PRN PRN Reason: CONSTIPATION Last Admin: 04/20/17 12:43 Dose: 30 ml Metoprolol Tartrate (Lopressor -) 50 mg PO TID [facility] Last Admin: 04/21/17 06:11 Dose: 50 mg Ondansetron HCl (Zofran Injection) 4 mg IVPUSH Q6H PRN PRN Reason: NAUSEA AND/OR VOMITING Oxycodone HCl (Roxicodone -) 10 mg PO Q4H PRN PRN Reason: PAIN Last Admin: 04/21/17 12:22 Dose: 10 mg Pantoprazole Sodium (Protonix -) 40 mg PO BID [facility] Last Admin: 04/21/17 09:10 Dose: 40 mg Polyethylene Glycol (Miralax (For Daily Use) -) 17 gm PO DAILY [facility] Last Admin: 04/21/17 09:10 Dose: 17 gm Pramipexole Dihydrochloride (Mirapex -) 0.5 mg PO 0700,1200,1700 [facility] Last Admin: 04/21/17 12:20 Dose: 0.5 mg Pramipexole Dihydrochloride (Mirapex -) 0.5 mg PO HS [facility] Last Admin: 04/20/17 22:22 Dose: 0.5 mg - Objective Vital Signs: Vital Signs Temperature 98.7 F 04/21/17 07:40 Pulse Rate 78 04/21/17 10:20 Respiratory Rate 18 04/21/17 09:34 Blood Pressure 102/66 04/21/17 07:40 O2 Sat by Pulse Oximetry (%) 98 04/21/17 10:20 Constitutional: Yes: Well Nourished, Calm Eyes: Yes: WNL HENT: Yes: WNL Neck: Yes: WNL Cardiovascular: Yes: Regular Rate and Rhythm, S1, S2 Respiratory: Yes: CTA Bilaterally Gastrointestinal: Yes: Normal Bowel Sounds, Soft Extremities: Yes: WNL Edema: No Labs: CBC, BMP 04/21/17 06:30 04/21/17 06:30 INR, PTT INR 1.00 (0.82-1.09) 04/13/17 06:00 Problem List - Problems (1) Chronic obstructive pulmonary disease (COPD) Code(s): J44.9 - CHRONIC OBSTRUCTIVE PULMONARY DISEASE, UNSPECIFIED (2) Lower extremity pain Code(s): M79.606 - PAIN IN LEG, UNSPECIFIED Qualifiers: Qualified Code(s): M79.604 - Pain in right leg (3) Carotid stenosis Code(s): I65.29 - OCCLUSION AND STENOSIS OF UNSPECIFIED CAROTID ARTERY (4) HTN (hypertension) Code(s): I10 - ESSENTIAL (PRIMARY) HYPERTENSION Qualifiers: Qualified Code(s): I10 - Essential (primary) hypertension (5) Afib Code(s): I48.91 - UNSPECIFIED ATRIAL FIBRILLATION (6) CKD (chronic kidney disease) stage 3, GFR 30-59 ml/min Code(s): N18.3 - CHRONIC KIDNEY DISEASE, STAGE 3 (MODERATE) (7) BPH (benign prostatic hyperplasia) Code(s): N40.0 - BENIGN PROSTATIC HYPERPLASIA WITHOUT LOWER URINRY TRACT SYMP (8) Back pain Code(s): M54.9 - DORSALGIA, UNSPECIFIED Qualifiers: Qualified Code(s): M54.5 - Low back pain Assessment/Plan IMP COPD STABLE PAF CHRONIC BACK PAIN S/P T12-S2 LAMINECTOMIES/DECOMPRESSION/FUSION HTN PULMONARY HTN CKD [employer] INHALED BRONCHODILATORS PRN O2 PRN INCENTIVE SPIROMETER DR YOUNG Problem List - Problems (1) Chronic obstructive pulmonary disease (COPD) Code(s): J44.9 - CHRONIC OBSTRUCTIVE PULMONARY DISEASE, UNSPECIFIED (2) Lower extremity pain Code(s): M79.606 - PAIN IN LEG, UNSPECIFIED Qualifiers: Laterality: bilateral Qualified Code(s): M79.604 - Pain in right leg (3) Carotid stenosis Code(s): I65.29 - OCCLUSION AND STENOSIS OF UNSPECIFIED CAROTID ARTERY (4) HTN (hypertension) Code(s): I10 - ESSENTIAL (PRIMARY) HYPERTENSION Qualifiers: Hypertension type: essential hypertension Qualified Code(s): I10 - Essential (primary) hypertension (5) Afib Code(s): I48.91 - UNSPECIFIED ATRIAL FIBRILLATION (6) CKD (chronic kidney disease) stage 3, GFR 30-59 ml/min Code(s): N18.3 - CHRONIC KIDNEY DISEASE, STAGE 3 (MODERATE) (7) BPH (benign prostatic hyperplasia) Code(s): N40.0 - BENIGN PROSTATIC HYPERPLASIA WITHOUT LOWER URINRY TRACT SYMP (8) Back pain Code(s): M54.9 - DORSALGIA, UNSPECIFIED Qualifiers: Back pain location: low back pain Chronicity: chronic Back pain laterality: bilateral Sciatica presence: unspecified whether sciatica present Qualified Code(s): M54.5 - Low back pain
--- NOTE | 2017-04-21 12:44 | PN ---
Progress Note, Physician Chief Complaint: events last night noted. \s/p fall History of Present Illness: 71 year old man h/o HTN, HLD, AFib, LBBB, COPD, chronic back and leg pain on multiple medications, h/o recurrent syncope admitted with severe acute on chronic lower back and leg pain. Pt was seen by neurology and neurosurgery yesterday. Neurology felt surgery would not be helpful but neurosurgery felt that surgery could offer some relief of his pain and disability and thus he is planned for surgical intervention. Pt was [facility] and examined [facility]. No overnight events. no new complaints. He states that his back and leg pain was so severe that he was significantly disabled at home and it was not responsive to medications. He denies having any chest pain, sob, palpitations. No pnd, orthopnea, or LE edema. No recent recurrent syncope or near syncope. - Current Medication List Current Medications: Active Medications Albuterol/Ipratropium (Duoneb -) 1 amp NEB Q4H PRN PRN Reason: SHORTNESS OF BREATH Last Admin: 04/20/17 11:30 Dose: 1 amp Carbidopa/Levodopa (Sinemet *Cr* 50/200 -) 1 combo PO 0700,1200,1700 [facility] Last Admin: 04/21/17 12:20 Dose: 1 combo Diazepam (Valium -) 5 mg PO Q6HPO PRN PRN Reason: LOWER BACK PAIN Last Admin: 04/21/17 08:33 Dose: 5 mg Docusate Sodium (Colace -) 100 mg PO Q8H PRN PRN Reason: CONSTIPATION Ferrous Sulfate (Feosol -) 325 mg PO BID@0800,1730 [facility] Last Admin: 04/21/17 08:34 Dose: 325 mg Gabapentin (Neurontin -) 400 mg PO TID [facility] Last Admin: 04/21/17 06:11 Dose: 400 mg Heparin Sodium (Porcine) (Heparin -) 5,000 unit SQ TID [facility] Lisinopril (Prinivil) 2.5 mg PO DAILY [facility] Last Admin: 04/21/17 09:10 Dose: 2.5 mg Magnesium Hydroxide (Milk Of Magnesia -) 30 ml PO Q8H PRN PRN Reason: CONSTIPATION Last Admin: 04/20/17 12:43 Dose: 30 ml Metoprolol Tartrate (Lopressor -) 50 mg PO TID [facility] Last Admin: 04/21/17 06:11 Dose: 50 mg Ondansetron HCl (Zofran Injection) 4 mg IVPUSH Q6H PRN PRN Reason: NAUSEA AND/OR VOMITING Oxycodone HCl (Roxicodone -) 10 mg PO Q4H PRN PRN Reason: PAIN Last Admin: 04/21/17 12:22 Dose: 10 mg Pantoprazole Sodium (Protonix -) 40 mg PO BID [facility] Last Admin: 04/21/17 09:10 Dose: 40 mg Polyethylene Glycol (Miralax (For Daily Use) -) 17 gm PO DAILY [facility] Last Admin: 04/21/17 09:10 Dose: 17 gm Pramipexole Dihydrochloride (Mirapex -) 0.5 mg PO 0700,1200,1700 [facility] Last Admin: 04/21/17 12:20 Dose: 0.5 mg Pramipexole Dihydrochloride (Mirapex -) 0.5 mg PO HS [facility] Last Admin: 04/20/17 22:22 Dose: 0.5 mg - Objective Vital Signs: Vital Signs Temperature 98.7 F 04/21/17 07:40 Pulse Rate 78 04/21/17 10:20 Respiratory Rate 18 04/21/17 09:34 Blood Pressure 102/66 04/21/17 07:40 O2 Sat by Pulse Oximetry (%) 98 04/21/17 10:20 Eyes: Yes: WNL, Conjunctiva Clear, EOM Intact HENT: Yes: WNL, Atraumatic, Normocephalic Neck: Yes: WNL, Supple, Trachea Midline Cardiovascular: Yes: WNL, Regular Rate and Rhythm Respiratory: Yes: WNL, Regular, CTA Bilaterally Gastrointestinal: Yes: WNL, Normal Bowel Sounds Genitourinary: Yes: WNL Musculoskeletal: Yes: WNL Extremities: Yes: WNL Edema: No Integumentary: Yes: WNL Neurological: Yes: Oriented, Lethargy ...Motor Strength: WNL Psychiatric: Yes: WNL Labs: CBC, BMP 04/21/17 06:30 04/21/17 06:30 INR, PTT INR 1.00 (0.82-1.09) 04/13/17 06:00 Assessment/Plan - Problems (1) BPH (benign prostatic hyperplasia) Code(s): N40.0 - BENIGN PROSTATIC HYPERPLASIA WITHOUT LOWER URINRY TRACT SYMP (2) Chronic obstructive pulmonary disease (COPD) Code(s): J44.9 - CHRONIC OBSTRUCTIVE PULMONARY DISEASE, UNSPECIFIED (3) Diverticulosis Code(s): K57.90 - DVRTCLOS OF INTEST, PART UNSP, W/O PERF OR ABSCESS W/O BLEED (4) Syncope Code(s): R55 - SYNCOPE AND COLLAPSE Qualifiers: Qualified Code(s): R55 - Syncope and collapse (5) Back pain Assessment/Plan: pain management. Physical rehabilitation. Code(s): M54.9 - DORSALGIA, UNSPECIFIED Qualifiers: Qualified Code(s): M54.5 - Low back pain (6) Depression Code(s): F32.9 - MAJOR DEPRESSIVE DISORDER, SINGLE EPISODE, UNSPECIFIED Qualifiers: Qualified Code(s): F33.0 - Major depressive disorder, recurrent, mild (7) HTN (hypertension) Assessment/Plan: On amlodipine will discontinue, as metoprolol dsoe is being increased for HR and BP. F/u BMP, electgrolytes; consider restartin lisinopril (reduced LVEF; HTN). Code(s): I10 - ESSENTIAL (PRIMARY) HYPERTENSION Qualifiers: Qualified Code(s): I10 - Essential (primary) hypertension (8) Hyperlipidemia Assessment/Plan: f/u lipids (total cholesterol 151 mg/dL on 05/2016). Code(s): E78.5 - HYPERLIPIDEMIA, UNSPECIFIED Qualifiers: Qualified Code(s): E78.5 - Hyperlipidemia, unspecified (9) LBBB (left bundle branch block) Code(s): I44.7 - LEFT BUNDLE-BRANCH BLOCK, UNSPECIFIED (10) SVT (supraventricular tachycardia) Assessment/Plan: metoprolol started (for systolic CHF and PSVT); increased to 50 mg tid because of continued episodes of PSVT. Holter 11/18: NSR; LBBB; PSVT; brief run of what was likely PAT. Mg repleted; maintain all electrolytes (keep K- 4-4.5; Mg 2-2.3; PO4 2.5-3.5) TSH WNL. Pain management. Maintain hydration; f/u anemia workup. Code(s): I47.1 - SUPRAVENTRICULAR TACHYCARDIA (11) CKD (chronic kidney disease) stage 3, GFR 30-59 ml/min Code(s): N18.3 - CHRONIC KIDNEY DISEASE, STAGE 3 (MODERATE) (12) Osteoporosis Code(s): M81.0 - AGE-RELATED OSTEOPOROSIS W/O CURRENT PATHOLOGICAL FRACTURE (13) Weakness Code(s): R53.1 - WEAKNESS (14) Systolic CHF Assessment/Plan: mildly reduced LVEF on 11/18 ECHO, with mild MR and TR. Start metoprolol; f/u BP and HR. Add lisinopril if BP remains stable; f/u BUN/Cr, electrolytes. Now afebrile. Code(s): I50.20 - UNSPECIFIED SYSTOLIC (CONGESTIVE) HEART FAILURE (15) S/P laminectomy Assessment/Plan: f/u with neurosurgeon. Code(s): Z98.890 - OTHER SPECIFIED POSTPROCEDURAL STATES (16) Atypical chest pain Assessment/Plan: hx atypical chest pain; latest stress MIBI at [facility] a little more than a year ago reportedly without ischemia; f/u report. Presently has both chest and back pain; EKG unchanged. TNI has remained 0.02. Code(s): R07.89 - OTHER CHEST PAIN (17) Anemia Assessment/Plan: f/u significant drop in Hb. s/p PRBCs. Code(s): D64.9 - ANEMIA, UNSPECIFIED (18) Parkinson disease Assessment/Plan: on Sinemet. Code(s): G20 - PARKINSON'S DISEASE confussion/lethargy s/p unwitnessed fall may need ct head / neuro/neurosurgical eval.
--- NOTE | 2017-04-21 12:47 | PN ---
Progress Note (short form) - Note Progress Note: Subjective: The patient was seen and examined at the bedside, he reports feeling "ok" today. Overnight patient had hallucinations Recall pain management, may be opiate induced hallucinations Current Medications Generic Name Dose Route Start Last Admin Trade Name Freq PRN Reason Stop Dose Admin Albuterol/Ipratropium 1 amp 04/16/17 16:18 04/20/17 11:30 Duoneb - NEB 1 amp Q4H PRN Administration SHORTNESS OF BREATH Carbidopa/Levodopa 1 combo 04/16/17 17:00 04/21/17 06:11 Sinemet *Cr* 50/200 - PO 1 combo 0700,1200,1700 [facility] Administration Diazepam 5 mg 04/20/17 14:19 04/21/17 08:33 Valium - PO 5 mg Q6HPO PRN Administration LOWER BACK PAIN Docusate Sodium 100 mg 04/18/17 14:21 Colace - PO Q8H PRN CONSTIPATION Ferrous Sulfate 325 mg 04/21/17 08:00 04/21/17 08:34 Feosol - PO 325 mg BID@0800,1730 [facility] Administration Gabapentin 400 mg 04/18/17 22:00 04/21/17 06:11 Neurontin - PO 400 mg TID [facility] Administration Heparin Sodium (Porcine) 5,000 unit 04/21/17 14:00 Heparin - SQ TID [facility] Lisinopril 2.5 mg 04/18/17 13:15 04/21/17 09:10 Prinivil PO 2.5 mg DAILY [facility] Administration Magnesium Hydroxide 30 ml 04/16/17 16:18 04/20/17 12:43 Milk Of Magnesia - PO 30 ml Q8H PRN Administration CONSTIPATION Metoprolol Tartrate 50 mg 04/17/17 14:00 04/21/17 06:11 Lopressor - PO 50 mg TID [facility] Administration Ondansetron HCl 4 mg 04/16/17 16:18 Zofran Injection IVPUSH Q6H PRN NAUSEA AND/OR VOMITING Oxycodone HCl 10 mg 04/21/17 11:51 Roxicodone - PO Q4H PRN PAIN Pantoprazole Sodium 40 mg 04/16/17 22:00 04/21/17 09:10 Protonix - PO 40 mg BID [facility] Administration Polyethylene Glycol 17 gm 04/17/17 10:00 04/21/17 09:10 Miralax (For Daily Use) - PO 17 gm DAILY [facility] Administration Pramipexole Dihydrochloride 0.5 mg 04/16/17 17:00 04/21/17 06:11 Mirapex - PO 0.5 mg 0700,1200,1700 [facility] Administration Pramipexole Dihydrochloride 0.5 mg 04/16/17 22:00 04/20/17 22:22 Mirapex - PO 0.5 mg HS [facility] Administration Objective: Vital Signs Period Temp Pulse Resp BP Sys/Suazo Pulse Ox Last 24 Hr 98.4 F-99.4 F 72-88 18-20 99-130/46-77 91-98 Physical Exam: General: NAD, A&Ox3 HEENT: Frontal head laceration, dried blood Lungs: CTA bilaterally Heart: RRR, S1S2 Abd: Soft, non-tender, non-distended. Normoactive bowel sounds. No spinal tenderness Ext: Warm, well-perfused 2+ DP/PT bilaterally Skin: Lower back dressing c/d/i, CRUZ drain in place CBCD WBC 11.0 K/mm3 (4.0-10.0) H 04/21/17 06:30 RBC 3.36 M/mm3 (4.00-5.60) L 04/21/17 06:30 Hgb 11.0 GM/dL (11.7-16.9) L 04/21/17 06:30 Hct 32.7 % (35.4-49) L 04/21/17 06:30 MCV 97.4 fl (80-96) H 04/21/17 06:30 MCHC 33.7 g/dl (32.0-35.9) 04/21/17 06:30 RDW 15.8 % (11.9-15.9) 04/21/17 06:30 Plt Count 375 K/MM3 (134-434) D 04/21/17 06:30 MPV 8.7 fl (7.5-11.1) 04/21/17 06:30 CMP Sodium 139 mmol/L (136-145) 04/21/17 06:30 Potassium 4.8 mmol/L (3.5-5.1) 04/21/17 06:30 Chloride 102 mmol/L (98-107) 04/21/17 06:30 Carbon Dioxide 26 mmol/L (21-32) 04/21/17 06:30 Anion Gap 11 (8-16) 04/21/17 06:30 BUN 31 mg/dL (7-18) H D 04/21/17 06:30 Creatinine 1.2 mg/dL (0.7-1.3) 04/21/17 06:30 Creat Clearance w eGFR 59.35 (>60) 04/21/17 06:30 Random Glucose 89 mg/dL (74-106) 04/21/17 06:30 Calcium 8.2 mg/dL (8.5-10.1) L 04/21/17 06:30 Total Bilirubin 0.7 mg/dL (0.2-1.0) 04/21/17 06:30 AST 53 U/L (15-37) H 04/21/17 06:30 ALT 35 U/L (12-78) D 04/21/17 06:30 Alkaline Phosphatase 85 U/L (45-117) D 04/21/17 06:30 Total Protein 5.7 g/dl (6.4-8.2) L 04/21/17 06:30 Albumin 3.0 g/dl (3.4-5.0) L 04/21/17 06:30 CARDIAC ENZYMES Creatine Kinase 944 IU/L (39-308) H 04/15/17 17:30 Troponin I < 0.02 ng/ml (0.00-0.05) 04/16/17 05:00 Microbiology 04/15/17 17:30 Blood - Peripheral Venous Blood Culture - Final NO GROWTH AFTER 5 DAYS INCUBATION 04/15/17 17:30 Blood - Peripheral Venous Blood Culture - Final NO GROWTH AFTER 5 DAYS INCUBATION 04/15/17 17:15 Urine - Urine Medrano Urine Culture - Final NO GROWTH OBTAINED 04/11/17 15:40 Urine - Urine Clean Catch Urine Culture - Final Staphylococcus Epidermidis Assessment: This is a 71 year old male with PMHx of HTN, hyperlipidemia, paroxysmal a.fib, pulmonary HTN, COPD, depression, anxiety, CKD stage 3, chronic back and b/l leg pain who presented to the ED with worsening back and lower extremity pain Plan: 1) S/p fall out of bed - Patient reports he hit his head, had small laceration on forehead - Imaging as above - Head CT x2 with no acute intracranial hemorrhage - Lumbar x-ray reviewed - Dr. Queen aware of fall, discussed 2) Acute on chronic b/l lower extremity pain: - S/p laminectomy with fusion T12-S2, repair pseudo menigoceal on 04/13 - Pain management: Oxycontin 10mg po bid, neurontin 400mg po tid - Appreciate neurology consult - Appreciate Dr. Queen consult - Appreciate pain management consult: reconsult as patient had some hallucinations last night 3) PSVT - Continue Metoprolol 50mg po tid 4) Fever: - Afebrile - UTI: urine with staph epi (received Vanco x2 doses) - Now on empiric Meropenem for fevers - Appreciate ID consult 5) Parkinson's disease: - Continue Sinemet Cr 25/100 to tid - Continue Pramipexole to 0.25mg po qid 6) : Left testicular pain - Resolved - Scrotal ultrasound with left hydrocele CKD - Cr at baseline - Continue to monitor 7) Paroxysmal a.fib - Not on cardizem anymore 2/2 prior syncopal episodes - Patient is refusing anticoagulation for paf HTN - Continue Metoprolol 8) Pulmonary: COPD - Stable 9) F/E/N: - Sodium controlled diet - Monitor electrolytes 10) Prophylaxis: - Hold Heparin for DVT prophylaxis as the patient had fall and hit head - PT daily 11) Dispo: - Requires continued inpatient care - Will need SNF once cleared by surgery CODE STATUS: FULL CODE Visit type - Emergency Visit Emergency Visit: Yes ED Registration Date: 04/11/17 Care time: The patient presented to the Emergency Department on the above date and was hospitalized for further evaluation of their emergent condition. - New Patient This patient is new to me today: No - Critical Care Critical Care patient: No
[2017-04-21] MEDS: HEPARIN NA (PORCINE) 5,000 UNITS/ML 1ML VIAL SQ SCH ×2 (13:46→22:24)
--- NOTE | 2017-04-21 15:43 | CON.PSY ---
Psychiatry Consult Chief Complaint: Patient had Spinal Fusion Sugery about 8days ago. [facility] pain [facility] 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 Symptoms: reports: Memory Impairment, Hallucinations - Previous Psychiatric Treatment Outpatient: None Inpatient: None - Previous Substance Abuse Treatment Outpatient: None Inpatient: None - Current Medications Current Medications: Active Medications Albuterol/Ipratropium (Duoneb -) 1 amp NEB Q4H PRN PRN Reason: SHORTNESS OF BREATH Last Admin: 04/20/17 11:30 Dose: 1 amp Carbidopa/Levodopa (Sinemet *Cr* 50/200 -) 1 combo PO 0700,1200,1700 [facility] Last Admin: 04/21/17 12:20 Dose: 1 combo Diazepam (Valium -) 5 mg PO Q6HPO PRN PRN Reason: LOWER BACK PAIN Last Admin: 04/21/17 08:33 Dose: 5 mg Docusate Sodium (Colace -) 100 mg PO Q8H PRN PRN Reason: CONSTIPATION Ferrous Sulfate (Feosol -) 325 mg PO BID@0800,1730 [facility] Last Admin: 04/21/17 08:34 Dose: 325 mg Gabapentin (Neurontin -) 400 mg PO TID [facility] Last Admin: 04/21/17 13:46 Dose: 400 mg Heparin Sodium (Porcine) (Heparin -) 5,000 unit SQ TID [facility] Last Admin: 04/21/17 13:46 Dose: 5,000 unit Lisinopril (Prinivil) 2.5 mg PO DAILY [facility] Last Admin: 04/21/17 09:10 Dose: 2.5 mg Magnesium Hydroxide (Milk Of Magnesia -) 30 ml PO Q8H PRN PRN Reason: CONSTIPATION Last Admin: 04/20/17 12:43 Dose: 30 ml Metoprolol Tartrate (Lopressor -) 50 mg PO TID [facility] Last Admin: 04/21/17 13:46 Dose: 50 mg Ondansetron HCl (Zofran Injection) 4 mg IVPUSH Q6H PRN PRN Reason: NAUSEA AND/OR VOMITING Oxycodone HCl (Roxicodone -) 10 mg PO Q4H PRN PRN Reason: PAIN Last Admin: 04/21/17 12:22 Dose: 10 mg Pantoprazole Sodium (Protonix -) 40 mg PO BID [facility] Last Admin: 04/21/17 09:10 Dose: 40 mg Polyethylene Glycol (Miralax (For Daily Use) -) 17 gm PO DAILY [facility] Last Admin: 04/21/17 09:10 Dose: 17 gm Pramipexole Dihydrochloride (Mirapex -) 0.5 mg PO 0700,1200,1700 [facility] Last Admin: 04/21/17 12:20 Dose: 0.5 mg Pramipexole Dihydrochloride (Mirapex -) 0.5 mg PO HS [facility] Last Admin: 04/20/17 22:22 Dose: 0.5 mg - Allergies Allergies: Allergies Allergy/AdvReac Type Severity Reaction Status Date / Time pregabalin [From Lyrica] Allergy Mild Verified 04/11/17 02:47 pravastatin sodium Allergy Unknown Verified 04/11/17 02:47 [From Pravachol] lactose Allergy Nausea Verified 04/11/17 02:47 morphine Allergy Verified 04/11/17 02:47 peanut Allergy Verified 04/11/17 02:47 Penicillins Allergy Verified 04/11/17 02:47 - Current Living Status Usual Living Arrangement: Alone - Current Mental Status Evaluation Appearance: Disheveled Attitude: Guarded - Affect Affect: Constrictive Appropriateness: Not Appropriate - Mood Mood: Irritable - Speech/Language Expressive: Delayed - Psychomotor Activity Psychomotor Activity: Hyperactive - Thought Process Thought Process: Circumstantial - Thought Content Type: Visual Delusions: Absent - Self Perception Self Perception: Depersonalization - Cognition Attention: Alert, Diminished Orientation: Time, Person, Place Memory, Immediate Recall: Impaired Memory, Remote with Promptin/3 - Concentration Serial Sevens Intact: No Simple Calculations Intact: No - Abstraction Proverb Interpretation: Impaired Judgement: Minimally Impaired - Insight Insight: Impaired - Impulse Control Impulse Control: Minimally Impaired - Suicidal Ideation Suicidal Ideation: No - Homicidal Ideation Homicidal Ideation: No Assessment/Plan !0 Pain meds were decreased. 2) Continue with Valium PRN 3) No anti psychotic meds needed t this time.
--- NOTE | 2017-04-21 16:24 | PN ---
Progress Note, Physician History of Present Illness: patient very confused lethargic not making much sense - Current Medication List Current Medications: Active Medications Carbidopa/Levodopa (Sinemet *Cr* 50/200 -) 1 combo PO 0700,1200,1700 [facility] Last Admin: 04/21/17 12:20 Dose: 1 combo Diazepam (Valium -) 5 mg PO Q6HPO PRN PRN Reason: LOWER BACK PAIN Last Admin: 04/21/17 08:33 Dose: 5 mg Docusate Sodium (Colace -) 100 mg PO Q8H PRN PRN Reason: CONSTIPATION Ferrous Sulfate (Feosol -) 325 mg PO BID@0800,1730 [facility] Last Admin: 04/21/17 08:34 Dose: 325 mg Gabapentin (Neurontin -) 400 mg PO TID [facility] Last Admin: 04/21/17 13:46 Dose: 400 mg Heparin Sodium (Porcine) (Heparin -) 5,000 unit SQ TID [facility] Last Admin: 04/21/17 13:46 Dose: 5,000 unit Lisinopril (Prinivil) 2.5 mg PO DAILY [facility] Last Admin: 04/21/17 09:10 Dose: 2.5 mg Magnesium Hydroxide (Milk Of Magnesia -) 30 ml PO Q8H PRN PRN Reason: CONSTIPATION Last Admin: 04/20/17 12:43 Dose: 30 ml Metoprolol Tartrate (Lopressor -) 50 mg PO TID [facility] Last Admin: 04/21/17 13:46 Dose: 50 mg Ondansetron HCl (Zofran Injection) 4 mg IVPUSH Q6H PRN PRN Reason: NAUSEA AND/OR VOMITING Oxycodone HCl (Roxicodone -) 10 mg PO Q4H PRN PRN Reason: PAIN Last Admin: 04/21/17 12:22 Dose: 10 mg Pantoprazole Sodium (Protonix -) 40 mg PO BID [facility] Last Admin: 04/21/17 09:10 Dose: 40 mg Polyethylene Glycol (Miralax (For Daily Use) -) 17 gm PO DAILY [facility] Last Admin: 04/21/17 09:10 Dose: 17 gm Pramipexole Dihydrochloride (Mirapex -) 0.5 mg PO 0700,1200,1700 [facility] Last Admin: 04/21/17 12:20 Dose: 0.5 mg Pramipexole Dihydrochloride (Mirapex -) 0.5 mg PO HS [facility] Last Admin: 04/20/17 22:22 Dose: 0.5 mg - Objective Vital Signs: Vital Signs Temperature 99.5 F 04/21/17 14:40 Pulse Rate 92 H 04/21/17 14:40 Respiratory Rate 20 04/21/17 14:40 Blood Pressure 114/82 04/21/17 14:40 O2 Sat by Pulse Oximetry (%) 98 04/21/17 10:20 Constitutional: Yes: Mild Distress Cardiovascular: Yes: Regular Rate and Rhythm Respiratory: Yes: Regular, CTA Bilaterally Gastrointestinal: Yes: Normal Bowel Sounds, Soft Musculoskeletal: Yes: Other Extremities: Yes: Other Wound/Incision: Yes: Dressing Dry and Intact Neurological: Yes: Confusion Labs: CBC, BMP 04/21/17 06:30 04/21/17 06:30 INR, PTT INR 1.00 (0.82-1.09) 04/13/17 06:00 Assessment/Plan Problem List - Problems (1) Chronic obstructive pulmonary disease (COPD) Code(s): J44.9 - CHRONIC OBSTRUCTIVE PULMONARY DISEASE, UNSPECIFIED (2) Lower extremity pain Code(s): M79.606 - PAIN IN LEG, UNSPECIFIED Qualifiers: Laterality: bilateral Qualified Code(s): M79.604 - Pain in right leg (3) Carotid stenosis Code(s): I65.29 - OCCLUSION AND STENOSIS OF UNSPECIFIED CAROTID ARTERY (4) HTN (hypertension) Code(s): I10 - ESSENTIAL (PRIMARY) HYPERTENSION Qualifiers: Hypertension type: essential hypertension Qualified Code(s): I10 - Essential (primary) hypertension (5) Afib Code(s): I48.91 - UNSPECIFIED ATRIAL FIBRILLATION (6) CKD (chronic kidney disease) stage 3, GFR 30-59 ml/min Code(s): N18.3 - CHRONIC KIDNEY DISEASE, STAGE 3 (MODERATE) (7) BPH (benign prostatic hyperplasia) Code(s): N40.0 - BENIGN PROSTATIC HYPERPLASIA WITHOUT LOWER URINRY TRACT SYMP (8) Back pain Code(s): M54.9 - DORSALGIA, UNSPECIFIED Qualifiers: Back pain location: low back pain Chronicity: chronic Back pain laterality: bilateral Sciatica presence: unspecified whether sciatica present Qualified Code(s): M54.5 - Low back pain uti stable of hemant abx currently though wbc is slightly higher plan close monitoring physiotherapy close watch on resp status
[2017-04-21] MEDS: NAPH,MB-DB/K PH,MBDB POWDER PACKET PO SCH (18:56)
[2017-04-21] MEDS: oxyCODONE HCL 10 MG SUSTAINED ACTING TABLET PO SCH (18:56)
[2017-04-22] MEDS: oxyCODONE HCL 5 MG TABLET PO PRN ×4 (01:46→23:19)
[2017-04-22] MEDS: HEPARIN NA (PORCINE) 5,000 UNITS/ML 1ML VIAL SQ SCH ×3 (06:00→23:18)
[2017-04-22] MEDS: PRAMIPEXOLE DIHYDROCHLORIDE 0.5 MG TABLET PO SCH ×4 (06:44→23:19)
[2017-04-22] MEDS: METOPROLOL TARTRATE 50 MG TABLET (FP) PO SCH ×3 (06:45→23:20)
[2017-04-22] MEDS: GABAPENTIN 400 MG CAPSULE (FP) PO SCH ×3 (06:45→23:19)
--- NOTE | 2017-04-22 09:32 | PN ---
Progress Note (short form) - Note Progress Note: POD #9 Resting comfortably in bed. Last saw patient on Friday and was having severe muscle spasms. Started patient on Valium round the clock as well as increasing his Gabapentin to 400mg TID. Pain Management (Dr. Mondragon) consult appreciated. Apparently, on 04/20/17 a rapid response was called as he was found on ground next to his bed. The patient sustained had a single laceration to the front of the head and an abrasion to the left arm. The patient states that he hit his head. On exam, he was alert and oriented x3, moving all four limbs spontaneously. Neuro exam was unremarkable. No focal tenderness over any bony prominences. he had CT of his head and cervical regions which where unremarkable. Currently, he still having some issues with muscle spasm to his left hamstring ( same as indicated on Friday). BUT, states medication helps. He hasn't been out of bed and ambulates very little according to RN notes. PT notes states they are only able to do ROM exercises in bed which he tolerates well. Last Vital Signs Temp Pulse Resp BP Pulse Ox 98.4 F 70 20 101/65 93 L 04/22/17 06:00 04/22/17 06:00 04/22/17 06:00 04/22/17 06:00 04/21/17 20:55 CBC, BMP 04/21/17 06:30 04/21/17 06:30 GEN: Alert. NAD. BACK: [place] intact. Superior portion of aquacel dressing removed. Inferior portion of dressing intact. No hematoma. Drain--> 225/mix CSF & blood (thinning out) ABD: softly distended. NT. +BS x4 LE: SCDs bilat. No tenderness or swelling. MUSCULOSKEL: RLE 5/5 Plantar/dorsi flexion LLE 4/5 plantar/dorsi flexion. A/P POD #9 s/p T12-S2 laminectomy/fusion/instrumentation/decompression Patient MUST ambulate with PT Wear TLSO brace when out of bed for greater than [address] Mondragon (Pain Management) following and appreciated Awaiting SNF vs. REHAB placement Cont medical management
[2017-04-22] MEDS: PANTOPRAZOLE 40 MG TABLET (FP) PO SCH ×2 (09:47→23:19)
[2017-04-22] MEDS: FERROUS SO4 325 MG TABLET (FP) PO SCH ×2 (09:48→17:14)
[2017-04-22] MEDS: POLYETHYLENE GLYCOL 3350 119 GM BTL PO SCH (09:48)
[2017-04-22] MEDS: LISINOPRIL 5 MG TABLET (FP) PO SCH (09:48)
--- NOTE | 2017-04-22 12:41 | PN ---
Progress Note (short form) - Note Progress Note: Subjective: The patient was seen and examined at the bedside, he was being turned and cleaned. He was appeared comfortable at this time Current Medications Generic Name Dose Route Start Last Admin Trade Name Freq PRN Reason Stop Dose Admin Carbidopa/Levodopa 1 combo 04/16/17 17:00 04/22/17 06:45 Sinemet *Cr* 50/200 - PO 1 combo 0700,1200,1700 [facility] Administration Diazepam 5 mg 04/20/17 14:19 04/21/17 16:22 Valium - PO 5 mg Q6HPO PRN Administration LOWER BACK PAIN Docusate Sodium 100 mg 04/18/17 14:21 04/22/17 09:47 Colace - PO 100 mg Q8H PRN Administration CONSTIPATION Ferrous Sulfate 325 mg 04/21/17 08:00 04/22/17 09:48 Feosol - PO 325 mg BID@0800,1730 [facility] Administration Gabapentin 400 mg 04/18/17 22:00 04/22/17 06:45 Neurontin - PO 400 mg TID [facility] Administration Heparin Sodium (Porcine) 5,000 unit 04/21/17 14:00 04/21/17 22:24 Heparin - SQ 5,000 unit TID [facility] Administration Lisinopril 2.5 mg 04/18/17 13:15 04/22/17 09:48 Prinivil PO 2.5 mg DAILY [facility] Administration Magnesium Hydroxide 30 ml 04/16/17 16:18 04/20/17 12:43 Milk Of Magnesia - PO 30 ml Q8H PRN Administration CONSTIPATION Metoprolol Tartrate 50 mg 04/17/17 14:00 04/22/17 06:45 Lopressor - PO 50 mg TID [facility] Administration Ondansetron HCl 4 mg 04/16/17 16:18 Zofran Injection IVPUSH Q6H PRN NAUSEA AND/OR VOMITING Oxycodone HCl 10 mg 04/21/17 11:51 04/22/17 09:47 Roxicodone - PO 10 mg Q4H PRN Administration PAIN Pantoprazole Sodium 40 mg 04/16/17 22:00 04/22/17 09:47 Protonix - PO 40 mg BID [facility] Administration Polyethylene Glycol 17 gm 04/17/17 10:00 04/22/17 09:48 Miralax (For Daily Use) - PO 17 gm DAILY [facility] Administration Pramipexole Dihydrochloride 0.5 mg 04/16/17 17:00 04/22/17 06:44 Mirapex - PO 0.5 mg 0700,1200,1700 [facility] Administration Pramipexole Dihydrochloride 0.5 mg 04/16/17 22:00 04/21/17 22:24 Mirapex - PO 0.5 mg HS [facility]NA Administration Objective: Vital Signs Period Temp Pulse Resp BP Sys/Suazo Pulse Ox Last 24 Hr 97.7 F-99.6 F 68-92 18-20 101-163/65-88 93 Physical Exam: General: NAD, A&Ox3 HEENT: Frontal forehead with healing wound Lungs: CTA bilaterally Heart: RRR, S1S2 Abd: Soft, non-tender, non-distended. Normoactive bowel sounds. No spinal tenderness Ext: Warm, well-perfused 2+ DP/PT bilaterally Skin: Lower back inferior dressing c/d/i, CRUZ drain in place CBCD WBC 11.0 K/mm3 (4.0-10.0) H 04/21/17 06:30 RBC 3.36 M/mm3 (4.00-5.60) L 04/21/17 06:30 Hgb 11.0 GM/dL (11.7-16.9) L 04/21/17 06:30 Hct 32.7 % (35.4-49) L 04/21/17 06:30 MCV 97.4 fl (80-96) H 04/21/17 06:30 MCHC 33.7 g/dl (32.0-35.9) 04/21/17 06:30 RDW 15.8 % (11.9-15.9) 04/21/17 06:30 Plt Count 375 K/MM3 (134-434) D 04/21/17 06:30 MPV 8.7 fl (7.5-11.1) 04/21/17 06:30 CMP Sodium 139 mmol/L (136-145) 04/21/17 06:30 Potassium 4.8 mmol/L (3.5-5.1) 04/21/17 06:30 Chloride 102 mmol/L (98-107) 04/21/17 06:30 Carbon Dioxide 26 mmol/L (21-32) 04/21/17 06:30 Anion Gap 11 (8-16) 04/21/17 06:30 BUN 31 mg/dL (7-18) H D 04/21/17 06:30 Creatinine 1.2 mg/dL (0.7-1.3) 04/21/17 06:30 Creat Clearance w eGFR 59.35 (>60) 04/21/17 06:30 Random Glucose 89 mg/dL (74-106) 04/21/17 06:30 Calcium 8.2 mg/dL (8.5-10.1) L 04/21/17 06:30 Total Bilirubin 0.7 mg/dL (0.2-1.0) 04/21/17 06:30 AST 53 U/L (15-37) H 04/21/17 06:30 ALT 35 U/L (12-78) D 04/21/17 06:30 Alkaline Phosphatase 85 U/L (45-117) D 04/21/17 06:30 Total Protein 5.7 g/dl (6.4-8.2) L 04/21/17 06:30 Albumin 3.0 g/dl (3.4-5.0) L 04/21/17 06:30 CARDIAC ENZYMES Creatine Kinase 944 IU/L (39-308) H 04/15/17 17:30 Troponin I < 0.02 ng/ml (0.00-0.05) 04/16/17 05:00 Microbiology 04/15/17 17:30 Blood - Peripheral Venous Blood Culture - Final NO GROWTH AFTER 5 DAYS INCUBATION 04/15/17 17:30 Blood - Peripheral Venous Blood Culture - Final NO GROWTH AFTER 5 DAYS INCUBATION 04/15/17 17:15 Urine - Urine Medrano Urine Culture - Final NO GROWTH OBTAINED 04/11/17 15:40 Urine - Urine Clean Catch Urine Culture - Final Staphylococcus Epidermidis Assessment: This is a 71 year old male with PMHx of HTN, hyperlipidemia, paroxysmal a.fib, pulmonary HTN, COPD, depression, anxiety, CKD stage 3, chronic back and b/l leg pain who presented to the ED with worsening back and lower extremity pain Plan: 1) Acute on chronic b/l lower extremity pain: - S/p laminectomy with fusion T12-S2, repair pseudo menigoceal on 04/13 - Pain management: Oxycodone 10mg q4h, neurontin 400mg po tid, Valium 5mg po q6h - CRUZ drain to be possibly removed tomorrow - Appreciate neurology consult - Appreciate Dr. Queen consult - Appreciate pain management consult: reconsult as patient had some hallucinations last night 2) PSVT - Continue Metoprolol 50mg po tid 3) Fever: - Afebrile - UTI: urine with staph epi (received Vanco x2 doses) - Completed course of Meropenem - Continue to observe off abx - Appreciate ID consult 4) Parkinson's disease: - Continue Sinemet Cr 25/100 to tid - Continue Pramipexole to 0.25mg po qid 5) : Left testicular pain - Resolved - Scrotal ultrasound with left hydrocele CKD - Cr at baseline - Continue to monitor 6) Paroxysmal a.fib - Not on cardizem anymore 2/2 prior syncopal episodes - Patient is refusing anticoagulation for paf HTN - Continue Metoprolol 7) Pulmonary: COPD - Stable 8) F/E/N: - Sodium controlled diet - Monitor electrolytes 9) Prophylaxis: - Heparin 5,000u sq tid - PT daily 10) Dispo: - Requires continued inpatient care - Will need SNF once cleared by surgery CODE STATUS: FULL CODE Visit type - Emergency Visit Emergency Visit: Yes ED Registration Date: 04/11/17 Care time: The patient presented to the Emergency Department on the above date and was hospitalized for further evaluation of their emergent condition. - New Patient This patient is new to me today: No - Critical Care Critical Care patient: No
[2017-04-22] MEDS ORDERED: PT OWN MED DRAWER 7, Y5N ONE ×2 (14:21→16:13)
--- NOTE | 2017-04-22 14:21 | PN ---
Progress Note, Physician Chief Complaint: Pt c/o pain on even slight movements. Pain is in lower back. History of Present Illness: Patient is a 71 year old white male with a history of depression, anxiety, paroxysmal afib, Known LBBB, HTN, CKD stage 3, Nephrolithiasis(s/p R UVJ Stent) , BPH and Chronic back pain who presents with acute worsening of bilateral lower extremity pain and lower back pain. The patient reports that his chronic lower extremity pain acutely worsened earlier today and did not respond to taking 4-5 percocet prompting him to present to the ED today. Of note, he had a recent admission 03/2017 for similar complaints where he underwent a diagnostic LP and MRI which did not demonstrate etiologies of his back pain. He has had 2 laminectomies in the past that did not help resolve his pain. He has presented multiple times to our ED and OSH EDs for similar worsening of his bilateral lower extremity pain. He denies saddle anesthesia, but notes some numbness and tingling in his lower extremities. He states that he is unable to ambulate at home secondary to pain. He denies fevers, chills, SOB, chest pain, abdominal pain, or changes with urination or bowel movements. - Current Medication List Current Medications: Active Medications Carbidopa/Levodopa (Sinemet *Cr* 50/200 -) 1 combo PO 0700,1200,1700 [facility] Last Admin: 04/22/17 06:45 Dose: 1 combo Diazepam (Valium -) 5 mg PO Q6HPO PRN PRN Reason: LOWER BACK PAIN Last Admin: 04/21/17 16:22 Dose: 5 mg Docusate Sodium (Colace -) 100 mg PO Q8H PRN PRN Reason: CONSTIPATION Last Admin: 04/22/17 09:47 Dose: 100 mg Ferrous Sulfate (Feosol -) 325 mg PO BID@0800,1730 [facility] Last Admin: 04/22/17 09:48 Dose: 325 mg Gabapentin (Neurontin -) 400 mg PO TID [facility] Last Admin: 04/22/17 06:45 Dose: 400 mg Heparin Sodium (Porcine) (Heparin -) 5,000 unit SQ TID [facility] Last Admin: 04/21/17 22:24 Dose: 5,000 unit Lisinopril (Prinivil) 2.5 mg PO DAILY [facility] Last Admin: 04/22/17 09:48 Dose: 2.5 mg Magnesium Hydroxide (Milk Of Magnesia -) 30 ml PO Q8H PRN PRN Reason: CONSTIPATION Last Admin: 04/20/17 12:43 Dose: 30 ml Metoprolol Tartrate (Lopressor -) 50 mg PO TID [facility] Last Admin: 04/22/17 06:45 Dose: 50 mg Ondansetron HCl (Zofran Injection) 4 mg IVPUSH Q6H PRN PRN Reason: NAUSEA AND/OR VOMITING Oxycodone HCl (Roxicodone -) 10 mg PO Q4H PRN PRN Reason: PAIN Last Admin: 04/22/17 09:47 Dose: 10 mg Pantoprazole Sodium (Protonix -) 40 mg PO BID [facility] Last Admin: 04/22/17 09:47 Dose: 40 mg Polyethylene Glycol (Miralax (For Daily Use) -) 17 gm PO DAILY [facility] Last Admin: 04/22/17 09:48 Dose: 17 gm Pramipexole Dihydrochloride (Mirapex -) 0.5 mg PO 0700,1200,1700 [facility] Last Admin: 04/22/17 06:44 Dose: 0.5 mg Pramipexole Dihydrochloride (Mirapex -) 0.5 mg PO HS [facility] Last Admin: 04/21/17 22:24 Dose: 0.5 mg - Objective Vital Signs: Vital Signs Temperature 98.8 F 04/22/17 13:45 Pulse Rate 86 04/22/17 13:45 Respiratory Rate 18 04/22/17 13:45 Blood Pressure 148/85 04/22/17 13:45 O2 Sat by Pulse Oximetry (%) 94 L 04/22/17 09:00 Constitutional: Yes: Anxious, Mild Distress Eyes: Yes: WNL HENT: Yes: WNL Neck: Yes: WNL Cardiovascular: Yes: S2 (split) Respiratory: Yes: Diminished Gastrointestinal: Yes: Soft, Distention ...Rectal Exam: Yes: Deferred Genitourinary: No: Anuria Musculoskeletal: Yes: Back Pain, Muscle Weakness Extremities: Yes: Cool Edema: No Peripheral Pulses WNL: No Peripheral Pulses: Left Doralis Pedis: 1+, Right Dorsalis Pedis: 1+ Integumentary: Yes: WNL Neurological: Yes: Alert, Oriented, Weakness Psychiatric: Yes: Alert, Oriented, Agitated Labs: CBC, BMP 04/21/17 06:30 04/21/17 06:30 INR, PTT INR 1.00 (0.82-1.09) 04/13/17 06:00 Problem List - Problems (1) BPH (benign prostatic hyperplasia) Code(s): N40.0 - BENIGN PROSTATIC HYPERPLASIA WITHOUT LOWER URINRY TRACT SYMP (2) Chronic obstructive pulmonary disease (COPD) Code(s): J44.9 - CHRONIC OBSTRUCTIVE PULMONARY DISEASE, UNSPECIFIED (3) Diverticulosis Code(s): K57.90 - DVRTCLOS OF INTEST, PART UNSP, W/O PERF OR ABSCESS W/O BLEED (4) Syncope Code(s): R55 - SYNCOPE AND COLLAPSE Qualifiers: Qualified Code(s): R55 - Syncope and collapse (5) Back pain Assessment/Plan: pain management. Physical rehabilitation. Code(s): M54.9 - DORSALGIA, UNSPECIFIED Qualifiers: Qualified Code(s): M54.5 - Low back pain (6) Depression Code(s): F32.9 - MAJOR DEPRESSIVE DISORDER, SINGLE EPISODE, UNSPECIFIED Qualifiers: Qualified Code(s): F33.0 - Major depressive disorder, recurrent, mild (7) HTN (hypertension) Assessment/Plan: On metoprolol for HR and BP; on lisinopril; off amlodipine. F/u BMP, electgrolytes. Avoid dehydration (increased BUN/Cr). Code(s): I10 - ESSENTIAL (PRIMARY) HYPERTENSION Qualifiers: Qualified Code(s): I10 - Essential (primary) hypertension (8) Hyperlipidemia Assessment/Plan: f/u lipids (total cholesterol 151 mg/dL on 05/2016). Code(s): E78.5 - HYPERLIPIDEMIA, UNSPECIFIED Qualifiers: Qualified Code(s): E78.5 - Hyperlipidemia, unspecified (9) LBBB (left bundle branch block) Assessment/Plan: chronic. Code(s): I44.7 - LEFT BUNDLE-BRANCH BLOCK, UNSPECIFIED (10) SVT (supraventricular tachycardia) Assessment/Plan: metoprolol started (for systolic CHF and PSVT); increased to 50 mg tid because of continued episodes of PSVT. HR and BP now better controlled; fewer episodes of PSVT. Holter 11/18: NSR; LBBB; PSVT; brief run of what was likely PAT. Mg repleted; maintain all electrolytes (keep K- 4-4.5; Mg 2-2.3; PO4 2.5-3.5) TSH WNL. Pain management. Maintain hydration; f/u anemia workup. Code(s): I47.1 - SUPRAVENTRICULAR TACHYCARDIA (11) CKD (chronic kidney disease) stage 3, GFR 30-59 ml/min Assessment/Plan: avoid dehydration. Code(s): N18.3 - CHRONIC KIDNEY DISEASE, STAGE 3 (MODERATE) (12) Osteoporosis Code(s): M81.0 - AGE-RELATED OSTEOPOROSIS W/O CURRENT PATHOLOGICAL FRACTURE (13) Weakness Code(s): R53.1 - WEAKNESS (14) Systolic CHF Assessment/Plan: mildly reduced LVEF on 11/18 ECHO, with mild MR and TR. Started metoprolol; f/u BP and HR (both now better-controlled). Added lisinopril. Now afebrile. Code(s): I50.20 - UNSPECIFIED SYSTOLIC (CONGESTIVE) HEART FAILURE (15) S/P laminectomy Code(s): Z98.890 - OTHER SPECIFIED POSTPROCEDURAL STATES (16) Atypical chest pain Code(s): R07.89 - OTHER CHEST PAIN (17) Anemia Code(s): D64.9 - ANEMIA, UNSPECIFIED (18) Parkinson disease Code(s): G20 - PARKINSON'S DISEASE
--- NOTE | 2017-04-22 15:17 | PN ---
Progress Note, Physician History of Present Illness: more awake and alert pain main issues - Current Medication List Current Medications: Active Medications Carbidopa/Levodopa (Sinemet *Cr* 50/200 -) 1 combo PO 0700,1200,1700 [facility] Last Admin: 04/22/17 14:24 Dose: 1 combo Diazepam (Valium -) 5 mg PO Q6HPO PRN PRN Reason: LOWER BACK PAIN Last Admin: 04/21/17 16:22 Dose: 5 mg Docusate Sodium (Colace -) 100 mg PO Q8H PRN PRN Reason: CONSTIPATION Last Admin: 04/22/17 09:47 Dose: 100 mg Ferrous Sulfate (Feosol -) 325 mg PO BID@0800,1730 [facility] Last Admin: 04/22/17 09:48 Dose: 325 mg Gabapentin (Neurontin -) 400 mg PO TID [facility] Last Admin: 04/22/17 14:24 Dose: 400 mg Heparin Sodium (Porcine) (Heparin -) 5,000 unit SQ TID [facility] Last Admin: 04/22/17 14:24 Dose: 5,000 unit Lisinopril (Prinivil) 2.5 mg PO DAILY [facility] Last Admin: 04/22/17 09:48 Dose: 2.5 mg Magnesium Hydroxide (Milk Of Magnesia -) 30 ml PO Q8H PRN PRN Reason: CONSTIPATION Last Admin: 04/20/17 12:43 Dose: 30 ml Metoprolol Tartrate (Lopressor -) 50 mg PO TID [facility] Last Admin: 04/22/17 14:24 Dose: 50 mg Ondansetron HCl (Zofran Injection) 4 mg IVPUSH Q6H PRN PRN Reason: NAUSEA AND/OR VOMITING Oxycodone HCl (Roxicodone -) 10 mg PO Q4H PRN PRN Reason: PAIN Last Admin: 04/22/17 09:47 Dose: 10 mg Pantoprazole Sodium (Protonix -) 40 mg PO BID [facility] Last Admin: 04/22/17 09:47 Dose: 40 mg Polyethylene Glycol (Miralax (For Daily Use) -) 17 gm PO DAILY [facility] Last Admin: 04/22/17 09:48 Dose: 17 gm Pramipexole Dihydrochloride (Mirapex -) 0.5 mg PO 0700,1200,1700 [facility] Last Admin: 04/22/17 14:24 Dose: 0.5 mg Pramipexole Dihydrochloride (Mirapex -) 0.5 mg PO HS [facility] Last Admin: 04/21/17 22:24 Dose: 0.5 mg - Objective Vital Signs: Vital Signs Temperature 98.8 F 04/22/17 13:45 Pulse Rate 86 04/22/17 13:45 Respiratory Rate 18 04/22/17 13:45 Blood Pressure 148/85 04/22/17 13:45 O2 Sat by Pulse Oximetry (%) 94 L 04/22/17 09:00 Constitutional: Yes: Calm, Mild Distress Cardiovascular: Yes: S1, S2 Respiratory: Yes: Regular, CTA Bilaterally Gastrointestinal: Yes: Normal Bowel Sounds, Soft Musculoskeletal: Yes: Other Extremities: Yes: Other Wound/Incision: Yes: Dressing Dry and Intact Neurological: Yes: Alert Psychiatric: Yes: Alert Labs: CBC, BMP 04/21/17 06:30 04/21/17 06:30 INR, PTT INR 1.00 (0.82-1.09) 04/13/17 06:00 Assessment/Plan Problem List - Problems (1) Chronic obstructive pulmonary disease (COPD) Code(s): J44.9 - CHRONIC OBSTRUCTIVE PULMONARY DISEASE, UNSPECIFIED (2) Lower extremity pain Code(s): M79.606 - PAIN IN LEG, UNSPECIFIED Qualifiers: Laterality: bilateral Qualified Code(s): M79.604 - Pain in right leg (3) Carotid stenosis Code(s): I65.29 - OCCLUSION AND STENOSIS OF UNSPECIFIED CAROTID ARTERY (4) HTN (hypertension) Code(s): I10 - ESSENTIAL (PRIMARY) HYPERTENSION Qualifiers: Hypertension type: essential hypertension Qualified Code(s): I10 - Essential (primary) hypertension (5) Afib Code(s): I48.91 - UNSPECIFIED ATRIAL FIBRILLATION (6) CKD (chronic kidney disease) stage 3, GFR 30-59 ml/min Code(s): N18.3 - CHRONIC KIDNEY DISEASE, STAGE 3 (MODERATE) (7) BPH (benign prostatic hyperplasia) Code(s): N40.0 - BENIGN PROSTATIC HYPERPLASIA WITHOUT LOWER URINRY TRACT SYMP (8) Back pain Code(s): M54.9 - DORSALGIA, UNSPECIFIED Qualifiers: Back pain location: low back pain Chronicity: chronic Back pain laterality: bilateral Sciatica presence: unspecified whether sciatica present Qualified Code(s): M54.5 - Low back pain uti stable of hemant abx currently though wbc is slightly higher plan close monitoring physiotherapy continue monitoring rest as per primary team
[2017-04-23] MEDS: oxyCODONE HCL 5 MG TABLET PO PRN ×4 (03:09→23:34)
[2017-04-23] MEDS ORDERED: PT OWN MED DRAWER 7, Y5N ONE ×3 (06:04→13:41)
[2017-04-23] MEDS: GABAPENTIN 400 MG CAPSULE (FP) PO SCH ×3 (06:19→23:33)
[2017-04-23] MEDS: PRAMIPEXOLE DIHYDROCHLORIDE 0.5 MG TABLET PO SCH ×4 (06:19→23:33)
[2017-04-23] MEDS: METOPROLOL TARTRATE 50 MG TABLET (FP) PO SCH ×3 (06:20→23:33)
[2017-04-23] MEDS: HEPARIN NA (PORCINE) 5,000 UNITS/ML 1ML VIAL SQ SCH ×3 (06:20→23:33)
[2017-04-23] MEDS ORDERED: INSULIN (NOVOLOG MIX 70/30) 100 UNITS/ML MDV SQ ONE (07:02)
[2017-04-23 07:19] LABS: MCH 32.7 pg (25.7-33.7); MCHC 33.4 g/dl (32.0-35.9); MEAN PLT VOLUME 8.5 fl (7.5-11.1); PLATELET COUNT 504 K/MM3 (134-434); RDW 16.1 % (11.9-15.9); WHITE BLOOD COUNT 13.7 K/mm3 (4.0-10.0)
[2017-04-23] MEDS: FERROUS SO4 325 MG TABLET (FP) PO SCH ×2 (08:23→18:53)
[2017-04-23 08:49] LABS: TOTAL CELLS COUNTED 100
--- NOTE | 2017-04-23 09:37 | PN ---
Physical Exam: SUBJECTIVE: Patient seen and examined. He has a R posterior thigh dora horse improved with massage, he is agreeable to feeding himself today and getting out of bed. OBJECTIVE: Vital Signs Period Temp Pulse Resp BP Sys/Suazo Pulse Ox Last 24 Hr 97.9 F-99.6 F 68-88 18-18 93-150/53-85 93 PE Neuro: alert, awake, cn 2-12intact, 5/5 motor in bed Pulm: CTAB CV: s1 s2 regular rate rhythm Abd: L supra pubic tenderness, abd soft +bs Msk: spinal shaneka drain serosanguinous drainage Ext: + CP pulses, no le edema Laboratory Results - last 24 hr 04/23/17 06:10 WBC 13.7 H RBC 3.49 L Hgb 11.4 L Hct 34.2 L MCV 98.0 H MCH 32.7 MCHC 33.4 RDW 16.1 H Plt Count 504 H D MPV 8.5 Total Counted 100 Neutrophils % No Result Required. Neutrophils % (Manual) 72 Band Neuts % (Manual) 1 D Lymphocytes % No Result Required. Lymphocytes % (Manual) 19 D Monocytes % (Manual) 5 Eosinophils % (Manual) 3 Active Medications Generic Name Dose Route Start Last Admin Trade Name Freq PRN Reason Stop Dose Admin Carbidopa/Levodopa 1 combo 04/16/17 17:00 04/23/17 06:20 Sinemet *Cr* 50/200 - PO 1 combo 0700,1200,1700 [facility] Administration Diazepam 5 mg 04/20/17 14:19 04/21/17 16:22 Valium - PO 5 mg Q6HPO PRN Administration LOWER BACK PAIN Docusate Sodium 100 mg 04/18/17 14:21 04/22/17 09:47 Colace - PO 100 mg Q8H PRN Administration CONSTIPATION Ferrous Sulfate 325 mg 04/21/17 08:00 04/22/17 17:14 Feosol - PO 325 mg BID@0800,1730 [facility] Administration Gabapentin 400 mg 04/18/17 22:00 04/23/17 06:19 Neurontin - PO 400 mg TID [facility] Administration Heparin Sodium (Porcine) 5,000 unit 04/21/17 14:00 04/23/17 06:20 Heparin - SQ 5,000 unit TID [facility] Administration Lisinopril 2.5 mg 04/18/17 13:15 04/22/17 09:48 Prinivil PO 2.5 mg DAILY [facility] Administration Magnesium Hydroxide 30 ml 04/16/17 16:18 04/20/17 12:43 Milk Of Magnesia - PO 30 ml Q8H PRN Administration CONSTIPATION Metoprolol Tartrate 50 mg 04/17/17 14:00 04/23/17 06:20 Lopressor - PO 50 mg TID [facility] Administration Ondansetron HCl 4 mg 04/16/17 16:18 Zofran Injection IVPUSH Q6H PRN NAUSEA AND/OR VOMITING Oxycodone HCl 10 mg 04/23/17 09:15 Roxicodone - PO Q6H PRN Pantoprazole Sodium 40 mg 04/16/17 22:00 04/22/17 23:19 Protonix - PO 40 mg BID [facility] Administration Polyethylene Glycol 17 gm 04/17/17 10:00 04/22/17 09:48 Miralax (For Daily Use) - PO 17 gm DAILY [facility] Administration Pramipexole Dihydrochloride 0.5 mg 04/16/17 17:00 04/23/17 06:19 Mirapex - PO 0.5 mg 0700,1200,1700 [facility] Administration Pramipexole Dihydrochloride 0.5 mg 04/16/17 22:00 04/22/17 23:19 Mirapex - PO 0.5 mg HS [facility] Administration Assessment: 71 year old male with PMHx of HTN, hyperlipidemia, paroxysmal a.fib , pulmonary HTN, COPD, depression, anxiety, CKD stage 3, chronic back and b/l leg pain admitted with worsening back and lower extremity pain, s/p laminectomy w/ fusion T12-S2 04/13. Plan: 1. Acute on chronic b/l lower extremity pain - S/p laminectomy with fusion T12-S2, repair pseudo menigoceal on 04/13 - Pain management: d/w Dr. Mondragon, will increase to Oxycodone 10mg q6h x24 hrs, then will taper as pt still agitated - Neurontin 400mg po tid, Valium 5mg po q6h - SHANEKA drain to be possibly removed today? - PT to ambulate with pt today 2. Leukocytosis - Mildly elevated - ID following 3. PSVT - Metoprolol 50mg po TID 4. UTI - Urine with staph epi (received Vanco x2 doses) - Completed course of Meropenem 04/20 5. Parkinson's disease - Sinemet Cr 25/100 to tid - Pramipexole to 0.25mg po qid 6. Left testicular pain - Resolved - Scrotal ultrasound with left hydrocele 7. CKD - Slight bump, ? UNA initiation vs poor po intake 8. Paroxysmal a.fib - Not on cardizem anymore 2/2 prior syncopal episodes - Patient is refusing anticoagulation for paf 9. HTN - Continue Metoprolol - Started, cont lisinopril 2.5mg daily 10. COPD - Not in exacerbation, stable at present 11. Prophylaxis - Heparin 5000u sq - PT daily Visit type - Emergency Visit Emergency Visit: Yes ED Registration Date: 04/11/17 Care time: The patient presented to the Emergency Department on the above date and was hospitalized for further evaluation of their emergent condition. - New Patient This patient is new to me today: Yes Date on this admission: 04/23/17 - Critical Care Critical Care patient: No
[2017-04-23] MEDS: LISINOPRIL 5 MG TABLET (FP) PO SCH (10:23)
[2017-04-23] MEDS: POLYETHYLENE GLYCOL 3350 119 GM BTL PO SCH (10:23)
[2017-04-23] MEDS: diazePAM 5 MG TABLET PO PRN ×2 (10:24→18:53)
--- NOTE | 2017-04-23 11:03 | PN ---
Progress Note, Physician Chief Complaint: events last night noted. \s/p fall History of Present Illness: 71 year old man h/o HTN, HLD, AFib, LBBB, COPD, chronic back and leg pain on multiple medications, h/o recurrent syncope admitted with severe acute on chronic lower back and leg pain. Pt was seen by neurology and neurosurgery yesterday. Neurology felt surgery would not be helpful but neurosurgery felt that surgery could offer some relief of his pain and disability and thus he is planned for surgical intervention. Pt was seen and examined today in nad. No overnight events. no new complaints. He states that his back and leg pain was so severe that he was significantly disabled at home and it was not responsive to medications. He denies having any chest pain, sob, palpitations. No pnd, orthopnea, or LE edema. No recent recurrent syncope or near syncope. - Current Medication List Current Medications: Active Medications Carbidopa/Levodopa (Sinemet *Cr* 50/200 -) 1 combo PO 0700,1200,1700 [facility] Last Admin: 04/23/17 06:20 Dose: 1 combo Diazepam (Valium -) 5 mg PO Q6HPO PRN PRN Reason: LOWER BACK PAIN Last Admin: 04/23/17 10:24 Dose: 5 mg Docusate Sodium (Colace -) 100 mg PO Q8H PRN PRN Reason: CONSTIPATION Last Admin: 04/22/17 09:47 Dose: 100 mg Ferrous Sulfate (Feosol -) 325 mg PO BID@0800,1730 [facility] Last Admin: 04/23/17 08:23 Dose: 325 mg Gabapentin (Neurontin -) 400 mg PO TID [facility] Last Admin: 04/23/17 06:19 Dose: 400 mg Heparin Sodium (Porcine) (Heparin -) 5,000 unit SQ TID [facility] Last Admin: 04/23/17 06:20 Dose: 5,000 unit Lisinopril (Prinivil) 2.5 mg PO DAILY [facility] Last Admin: 04/23/17 10:23 Dose: 2.5 mg Metoprolol Tartrate (Lopressor -) 50 mg PO TID [facility] Last Admin: 04/23/17 06:20 Dose: 50 mg Ondansetron HCl (Zofran Injection) 4 mg IVPUSH Q6H PRN PRN Reason: NAUSEA AND/OR VOMITING Oxycodone HCl (Roxicodone -) 10 mg PO Q6H PRN Last Admin: 04/23/17 10:24 Dose: 10 mg Polyethylene Glycol (Miralax (For Daily Use) -) 17 gm PO DAILY [facility] Last Admin: 04/23/17 10:23 Dose: 17 gm Pramipexole Dihydrochloride (Mirapex -) 0.5 mg PO 0700,1200,1700 [facility] Last Admin: 04/23/17 06:19 Dose: 0.5 mg Pramipexole Dihydrochloride (Mirapex -) 0.5 mg PO HS [facility] Last Admin: 04/22/17 23:19 Dose: 0.5 mg Senna (Senna -) 1 tab PO BID [facility] - Objective Vital Signs: Vital Signs Temperature 98.2 F 04/23/17 06:33 Pulse Rate 88 04/23/17 06:33 Respiratory Rate 18 04/23/17 06:33 Blood Pressure 109/79 04/23/17 06:33 O2 Sat by Pulse Oximetry (%) 93 L 04/22/17 23:30 Eyes: Yes: WNL, Conjunctiva Clear, EOM Intact HENT: Yes: WNL, Atraumatic, Normocephalic Neck: Yes: WNL, Supple, Trachea Midline Cardiovascular: Yes: WNL, Regular Rate and Rhythm Respiratory: Yes: WNL, Regular, CTA Bilaterally Gastrointestinal: Yes: WNL, Normal Bowel Sounds Genitourinary: Yes: WNL Musculoskeletal: Yes: WNL Extremities: Yes: WNL Edema: No Integumentary: Yes: WNL Neurological: Yes: WNL, Alert, Oriented ...Motor Strength: WNL Psychiatric: Yes: WNL Labs: CBC, BMP 04/23/17 06:10 04/21/17 06:30 INR, PTT INR 1.00 (0.82-1.09) 04/13/17 06:00 Assessment/Plan - Problems (1) BPH (benign prostatic hyperplasia) Code(s): N40.0 - BENIGN PROSTATIC HYPERPLASIA WITHOUT LOWER URINRY TRACT SYMP (2) Chronic obstructive pulmonary disease (COPD) Code(s): J44.9 - CHRONIC OBSTRUCTIVE PULMONARY DISEASE, UNSPECIFIED (3) Diverticulosis Code(s): K57.90 - DVRTCLOS OF INTEST, PART UNSP, W/O PERF OR ABSCESS W/O BLEED (4) Syncope Code(s): R55 - SYNCOPE AND COLLAPSE Qualifiers: Qualified Code(s): R55 - Syncope and collapse (5) Back pain Assessment/Plan: pain management. Physical rehabilitation. Code(s): M54.9 - DORSALGIA, UNSPECIFIED Qualifiers: Qualified Code(s): M54.5 - Low back pain (6) Depression Code(s): F32.9 - MAJOR DEPRESSIVE DISORDER, SINGLE EPISODE, UNSPECIFIED Qualifiers: Qualified Code(s): F33.0 - Major depressive disorder, recurrent, mild (7) HTN (hypertension) Assessment/Plan: On metoprolol for HR and BP; on lisinopril; off amlodipine. F/u BMP, electgrolytes. Avoid dehydration (increased BUN/Cr). Code(s): I10 - ESSENTIAL (PRIMARY) HYPERTENSION Qualifiers: Qualified Code(s): I10 - Essential (primary) hypertension (8) Hyperlipidemia Assessment/Plan: f/u lipids (total cholesterol 151 mg/dL on 05/2016). Code(s): E78.5 - HYPERLIPIDEMIA, UNSPECIFIED Qualifiers: Qualified Code(s): E78.5 - Hyperlipidemia, unspecified (9) LBBB (left bundle branch block) Assessment/Plan: chronic. Code(s): I44.7 - LEFT BUNDLE-BRANCH BLOCK, UNSPECIFIED (10) SVT (supraventricular tachycardia) Assessment/Plan: metoprolol started (for systolic CHF and PSVT); increased to 50 mg tid because of continued episodes of PSVT. HR and BP now better controlled; fewer episodes of PSVT. Holter 11/18: NSR; LBBB; PSVT; brief run of what was likely PAT. Mg repleted; maintain all electrolytes (keep K- 4-4.5; Mg 2-2.3; PO4 2.5-3.5) TSH WNL. Pain management. Maintain hydration; f/u anemia workup. Code(s): I47.1 - SUPRAVENTRICULAR TACHYCARDIA (11) CKD (chronic kidney disease) stage 3, GFR 30-59 ml/min Assessment/Plan: avoid dehydration. Code(s): N18.3 - CHRONIC KIDNEY DISEASE, STAGE 3 (MODERATE) (12) Osteoporosis Code(s): M81.0 - AGE-RELATED OSTEOPOROSIS W/O CURRENT PATHOLOGICAL FRACTURE (13) Weakness Code(s): R53.1 - WEAKNESS (14) Systolic CHF Assessment/Plan: mildly reduced LVEF on 11/18 ECHO, with mild MR and TR. Started metoprolol; f/u BP and HR (both now better-controlled). Added lisinopril. Now afebrile. Code(s): I50.20 - UNSPECIFIED SYSTOLIC (CONGESTIVE) HEART FAILURE (15) S/P laminectomy Code(s): Z98.890 - OTHER SPECIFIED POSTPROCEDURAL STATES (16) Atypical chest pain Code(s): R07.89 - OTHER CHEST PAIN (17) Anemia Code(s): D64.9 - ANEMIA, UNSPECIFIED (18) Parkinson disease Code(s): G20 - PARKINSON'S DISEASE
[2017-04-23 11:35] LABS: FERRITIN 265.378 ng/ml (16.4-293.9)
[2017-04-23] MEDS: SENNOSIDES 8.6MG TABLET (FP) PO SCH ×2 (12:38→23:34)
--- NOTE | 2017-04-23 15:08 | PN ---
Progress Note (short form) - Note Progress Note: Pt arousable but somewhat lethargic today. He had some pain with movement. He had a bowel movement today. Vital Signs Period Temp Pulse Resp BP Sys/Suazo Pulse Ox Last 24 Hr 97.9 F-99 F 68-92 18-20 93-171/53-79 93-94 Drain: 165 clear fluid GEN: alert and responsive to verbal stimuli ABD: soft, non-distended, non-tender Back: drain removed, (found with white portion out of skin), incision c/d/i with dermabond/jef. Reapplied dermabond. Incision appears flat without fullness. Neuro: heel builder strength equal b/l, 5/5 plantar flexion on the RLE, 3/5 plantar flexion CBC, BMP 04/23/17 06:10 04/21/17 06:30 A/P: 71 yo male s/p T12-S2 laminectomy/fusion/instrumentation/decompression wound appears to be healing well, CRUZ removed because it had pulled back patient seen by PT today and he was a max assist of two people, sat at EOB diet as tolerated plan for discharge to rehab His jef may be removed next week wither at rehab or as a f/u appointment with Dr. Heck in his office
--- NOTE | 2017-04-23 16:37 | PN ---
Progress Note, Physician History of Present Illness: patient much more awake and alert pain main issue - Current Medication List Current Medications: Active Medications Carbidopa/Levodopa (Sinemet *Cr* 50/200 -) 1 combo PO 0700,1200,1700 [facility] Last Admin: 04/23/17 13:42 Dose: 1 combo Diazepam (Valium -) 5 mg PO Q6HPO PRN PRN Reason: LOWER BACK PAIN Last Admin: 04/23/17 10:24 Dose: 5 mg Docusate Sodium (Colace -) 100 mg PO Q8H PRN PRN Reason: CONSTIPATION Last Admin: 04/22/17 09:47 Dose: 100 mg Ferrous Sulfate (Feosol -) 325 mg PO BID@0800,1730 [facility] Last Admin: 04/23/17 08:23 Dose: 325 mg Gabapentin (Neurontin -) 400 mg PO TID [facility] Last Admin: 04/23/17 13:41 Dose: 400 mg Heparin Sodium (Porcine) (Heparin -) 5,000 unit SQ TID [facility] Last Admin: 04/23/17 13:42 Dose: 5,000 unit Lisinopril (Prinivil) 2.5 mg PO DAILY [facility] Last Admin: 04/23/17 10:23 Dose: 2.5 mg Metoprolol Tartrate (Lopressor -) 50 mg PO TID [facility] Last Admin: 04/23/17 13:42 Dose: 50 mg Ondansetron HCl (Zofran Injection) 4 mg IVPUSH Q6H PRN PRN Reason: NAUSEA AND/OR VOMITING Oxycodone HCl (Roxicodone -) 10 mg PO Q6H PRN Last Admin: 04/23/17 15:43 Dose: 10 mg Polyethylene Glycol (Miralax (For Daily Use) -) 17 gm PO DAILY [facility] Last Admin: 04/23/17 10:23 Dose: 17 gm Pramipexole Dihydrochloride (Mirapex -) 0.5 mg PO 0700,1200,1700 [facility] Last Admin: 04/23/17 12:38 Dose: 0.5 mg Pramipexole Dihydrochloride (Mirapex -) 0.5 mg PO HS [facility] Last Admin: 04/22/17 23:19 Dose: 0.5 mg Senna (Senna -) 1 tab PO BID [facility] Last Admin: 04/23/17 12:38 Dose: 1 tab - Objective Vital Signs: Vital Signs Temperature 99 F 04/23/17 14:05 Pulse Rate 83 04/23/17 14:05 Respiratory Rate 20 04/23/17 14:05 Blood Pressure 171/67 04/23/17 14:05 O2 Sat by Pulse Oximetry (%) 94 L 04/23/17 09:00 Constitutional: Yes: Anxious, Moderate Distress Cardiovascular: Yes: Regular Rate and Rhythm Respiratory: Yes: Regular, CTA Bilaterally Gastrointestinal: Yes: Normal Bowel Sounds, Soft Musculoskeletal: Yes: Other Extremities: Yes: WNL Wound/Incision: Yes: Dressing Dry and Intact Neurological: Yes: Alert, Oriented Psychiatric: Yes: Alert Labs: CBC, BMP 04/23/17 06:10 04/21/17 06:30 INR, PTT INR 1.00 (0.82-1.09) 04/13/17 06:00 Assessment/Plan Problem List - Problems (1) Chronic obstructive pulmonary disease (COPD) Code(s): J44.9 - CHRONIC OBSTRUCTIVE PULMONARY DISEASE, UNSPECIFIED (2) Lower extremity pain Code(s): M79.606 - PAIN IN LEG, UNSPECIFIED Qualifiers: Laterality: bilateral Qualified Code(s): M79.604 - Pain in right leg (3) Carotid stenosis Code(s): I65.29 - OCCLUSION AND STENOSIS OF UNSPECIFIED CAROTID ARTERY (4) HTN (hypertension) Code(s): I10 - ESSENTIAL (PRIMARY) HYPERTENSION Qualifiers: Hypertension type: essential hypertension Qualified Code(s): I10 - Essential (primary) hypertension (5) Afib Code(s): I48.91 - UNSPECIFIED ATRIAL FIBRILLATION (6) CKD (chronic kidney disease) stage 3, GFR 30-59 ml/min Code(s): N18.3 - CHRONIC KIDNEY DISEASE, STAGE 3 (MODERATE) (7) BPH (benign prostatic hyperplasia) Code(s): N40.0 - BENIGN PROSTATIC HYPERPLASIA WITHOUT LOWER URINRY TRACT SYMP (8) Back pain Code(s): M54.9 - DORSALGIA, UNSPECIFIED Qualifiers: Back pain location: low back pain Chronicity: chronic Back pain laterality: bilateral Sciatica presence: unspecified whether sciatica present Qualified Code(s): M54.5 - Low back pain uti patient is remaining afebrile wbc has started to climb up which is a worrying sign close watch plan close monitoring physiotherapy continue monitoring rest as per primary team will hold off on starting anything at this moment very close watch on wbc
--- NOTE | 2017-04-23 21:47 | HOSP ---
Subjective - Review of Symptoms Events since last encounter: Received page about change in mental status. RN stated that patient is awake, but not oriented to place, different from when she had first received the patient. Patient was seen and examined. Pt's speech is difficult to understand ( baseline as per RN), endorses that he is in a lot of pain near his back/hips. When asked if he had difficulty breathing, he nodded "yes" but O2 sat is 99 on 3L. When asked if patient had chest pain he nodded "yes". Chart Reviewed. Pt is a 71yo M who presented w/ back pain is now s/p T12-S2 laminectomy/fusion/instrumentation/decompression. CRUZ drain was recently removed. Patient will likely be discharged to rehab tomorrow. On chart review, this morning he was arousable but somewhat lethargic. He was noted to be alert and responsive to verbal stimuli. Physical Examination Vital Signs: Vital Signs Temperature 99 F 04/23/17 16:00 Pulse Rate 75 Respiratory Rate 20 04/23/17 16:00 Blood Pressure 130/71 O2 Sat by Pulse Oximetry (%) 99 GEN: Awake, alert, speech is difficult to understand, initially patient nodded "no" to orientation questions, and was writhing intermittently due to pain, but after 2 minutes was able to state he was in the hospital, and that it was April. HEENT: PERRLA, EOMi, inside of mouth is noticeably black (of note, pt takes Fe supplements) CV: S1, S2, RRR, no murmurs LUNG: CTA anteriorly ABD: Soft, NT, ND MSK: No edema NEURO: Full neurological exam was performed. No signs of facial asymmetry. PERRLA. Able to move fingers and toes bilaterally, MSK 4/5 in all extremities, sensation is intact to face and body bilaterally. Reflexes 3+ upper b/l, 2+ lower b/l. Patient was given sips of water, sipped intermittently (pt is a mouth breather), able to drink without coughing. Labs: CBC, BMP 04/23/17 06:10 04/21/17 06:30 Hospitalist Encounter Assessment: Patient's mental status is likely minimally changed from the morning. FSG 113. Pt is in severe back pain, due for Oxycodone 10mg, will give and reassess. Since patient displayed no focal neurological deficits, CT head is not warranted. Since patient also nodded "yes" at one point to chest pain, will get stat EKG. Case d/w Dr. Maloney Update: EKG shows NSR @ 82bpm with LBBB (present in previous EKG). No T wave inversions. J point elevation <1mm in V1, V2 but not JULIEN. Ultimately no new changes. Update: Reassessed swallowing, pt is able to swallow, minimal coughing (likely from pain). Alert and oriented to place, person, birthday. Visit type - Emergency Visit Emergency Visit: Yes ED Registration Date: 04/11/17 Care time: The patient presented to the Emergency Department on the above date and was hospitalized for further evaluation of their emergent condition. - New Patient This patient is new to me today: Yes Date on this admission: 04/25/17 - Critical Care Critical Care patient: No
[2017-04-24] MEDS: diazePAM 5 MG TABLET PO PRN ×2 (04:38→21:13)
[2017-04-24] MEDS ORDERED: PT OWN MED DRAWER 7, Y5N ONE (05:54)
[2017-04-24] MEDS: HEPARIN NA (PORCINE) 5,000 UNITS/ML 1ML VIAL SQ SCH ×3 (05:55→21:14)
[2017-04-24] MEDS: GABAPENTIN 400 MG CAPSULE (FP) PO SCH ×3 (05:55→21:14)
[2017-04-24] MEDS: METOPROLOL TARTRATE 50 MG TABLET (FP) PO SCH ×3 (05:55→21:14)
[2017-04-24] MEDS: PRAMIPEXOLE DIHYDROCHLORIDE 0.5 MG TABLET PO SCH ×4 (05:59→21:15)
[2017-04-24 07:54] LABS: MCH 32.2 pg (25.7-33.7); MCHC 32.9 g/dl (32.0-35.9); MEAN CELL VOLUME 97.7 fl (80-96); MEAN PLT VOLUME 8.3 fl (7.5-11.1); PLATELET COUNT 568 K/MM3 (134-434); RDW 15.9 % (11.9-15.9); WHITE BLOOD COUNT 15.8 K/mm3 (4.0-10.0)
[2017-04-24 08:09] LABS: SERUM IRON 35 ug/dL (38-169); TOTAL IRON BINDING CAPACITY 248 ug/dL (250-450); UIBC 213 ug/dL (111-343)
[2017-04-24 08:18] LABS: ALBUMIN 3.2 g/dl (3.4-5.0); ANION GAP 7 (8-16); CO2 27 mmol/L (21-32); CREATININE 1.7 mg/dL (0.7-1.3); GLUCOSE,RANDOM 101 mg/dL (74-106); SGOT/AST 39 U/L (15-37); SGPT/ALT 34 U/L (12-78)
[2017-04-24 08:21] LABS: ALK PHOS 101 U/L (45-117); BILIRUBIN,TOTAL 0.6 mg/dL (0.2-1.0); TOT PROT 6.2 g/dl (6.4-8.2)
[2017-04-24] MEDS: FERROUS SO4 325 MG TABLET (FP) PO SCH ×2 (08:34→17:57)
[2017-04-24] MEDS ORDERED: SODIUM CHLORIDE 1,000 ML IV SCH (09:45)
[2017-04-24] MEDS: LISINOPRIL 5 MG TABLET (FP) PO SCH (09:57)
[2017-04-24] MEDS: POLYETHYLENE GLYCOL 3350 119 GM BTL PO SCH (09:57)
[2017-04-24] MEDS: oxyCODONE HCL 5 MG TABLET PO PRN ×2 (09:58→17:56)
[2017-04-24] MEDS: SENNOSIDES 8.6MG TABLET (FP) PO SCH ×2 (09:58→21:14)
--- NOTE | 2017-04-24 10:06 | PN ---
Physical Exam: SUBJECTIVE: Patient seen and examined. His sensorium has decreased today, he makes eye contact, but reluctant to speak or engage in conversation. He does not want to be moved. Yesterday, moved to EOB with PT. OBJECTIVE: Vital Signs Period Temp Pulse Resp BP Sys/Suazo Pulse Ox Last 24 Hr 97.6 F-99.1 F 71-92 17-22 120-171/67-76 93-96 PE Neuro: alert, awake, cn 2-12intact, 5/5 motor in bed Pulm: clear anteriorly +gag reflex CV: s1 s2 regular rate rhythm Abd: s nt nd +bs Ext: + DP pulses, no le edema Laboratory Results - last 24 hr 04/23/17 04/23/17 04/23/17 10:50 10:50 10:50 WBC RBC Hgb Hct MCV MCH MCHC RDW Plt Count MPV Sodium Potassium Chloride Carbon Dioxide Anion Gap BUN Creatinine Creat Clearance w eGFR POC Glucometer Random Glucose Calcium Phosphorus Magnesium Iron 35 L TIBC 248 L Iron Saturation 14 L Ferritin 265.378 Total Bilirubin AST ALT Alkaline Phosphatase Total Protein Albumin Vitamin B12 1109 H D Serum Folate 33 H 04/23/17 04/24/17 04/24/17 21:22 07:00 07:00 WBC 15.8 H RBC 3.46 L Hgb 11.1 L Hct 33.8 L MCV 97.7 H MCH 32.2 MCHC 32.9 RDW 15.9 Plt Count 568 H MPV 8.3 Sodium 137 Potassium 5.2 H Chloride 103 Carbon Dioxide 27 Anion Gap 7 L BUN 49 H D Creatinine 1.7 H D Creat Clearance w eGFR 39.71 POC Glucometer 113 Random Glucose 101 Calcium 9.0 Phosphorus 5.0 H D Magnesium 3.0 H Iron TIBC Iron Saturation Ferritin Total Bilirubin 0.6 AST 39 H D ALT 34 Alkaline Phosphatase 101 Total Protein 6.2 L Albumin 3.2 L Vitamin B12 Serum Folate Active Medications Generic Name Dose Route Start Last Admin Trade Name Freq PRN Reason Stop Dose Admin Carbidopa/Levodopa 1 combo 04/16/17 17:00 04/24/17 05:59 Sinemet *Cr* 50/200 - PO 1 combo 0700,1200,1700 [facility] Administration Diazepam 5 mg 04/20/17 14:19 04/24/17 04:38 Valium - PO 5 mg Q6HPO PRN Administration LOWER BACK PAIN Docusate Sodium 100 mg 04/18/17 14:21 04/22/17 09:47 Colace - PO 100 mg Q8H PRN Administration CONSTIPATION Ferrous Sulfate 325 mg 04/21/17 08:00 04/24/17 08:34 Feosol - PO 325 mg BID@0800,1730 [facility] Administration Gabapentin 400 mg 04/18/17 22:00 04/24/17 05:55 Neurontin - PO 400 mg TID [facility] Administration Heparin Sodium (Porcine) 5,000 unit 04/21/17 14:00 04/24/17 05:55 Heparin - SQ 5,000 unit TID [facility] Administration Sodium Chloride 1,000 mls @ 83 mls/hr 04/24/17 09:45 04/24/17 09:57 Normal Saline - IV 83 mls/hr ASDIR [facility] Administration Lisinopril 2.5 mg 04/18/17 13:15 04/24/17 09:57 Prinivil PO 2.5 mg DAILY [facility] Administration Metoprolol Tartrate 50 mg 04/17/17 14:00 04/24/17 05:55 Lopressor - PO 50 mg TID [facility] Administration Ondansetron HCl 4 mg 04/16/17 16:18 Zofran Injection IVPUSH Q6H PRN NAUSEA AND/OR VOMITING Oxycodone HCl 10 mg 04/23/17 09:15 04/24/17 09:58 Roxicodone - PO 10 mg Q6H PRN Administration Polyethylene Glycol 17 gm 04/17/17 10:00 04/24/17 09:57 Miralax (For Daily Use) - PO Not Given DAILY [facility] Pramipexole Dihydrochloride 0.5 mg 04/16/17 17:00 04/24/17 05:59 Mirapex - PO 0.5 mg 0700,1200,1700 [facility] Administration Pramipexole Dihydrochloride 0.5 mg 04/16/17 22:00 04/23/17 23:33 Mirapex - PO 0.5 mg HS [facility] Administration Senna 1 tab 04/23/17 10:15 04/24/17 09:58 Senna - PO 1 tab BID [facility] Administration Assessment: 71 year old male with PMHx of HTN, hyperlipidemia, paroxysmal a.fib , pulmonary HTN, COPD, depression, anxiety, CKD stage 3, chronic back and b/l leg pain admitted with worsening back and lower extremity pain, s/p laminectomy w/ fusion T12-S2 04/13. Plan: 1. Acute on chronic b/l lower extremity pain - S/p laminectomy with fusion T12-S2, repair pseudo menigoceal on 04/13 - CRUZ drain removed 04/23 2. Uncontrolled pain - Pain inhibiting pt to participate effectively in PT vs over sedation - Decrease Valium 2.5mg po q6h PRN - Decrease Oxycodone 10mg q8h x24 hrs - Neurontin 400mg po tid - Place call to Dr. Mondragon to discuss additional options 3. Acute blood loss anemia - Likely d/t surgery and CKD - Hgb stable - Repeat iron studies noted, transfused 2uprbc 04/18- - Continue Ferrous sulfate BID 4. Leukocytosis - Continued to rise, no fevers noted, ? reactive to pain - CXR ordered 5. CKD - Cr elevated - Restart hydration - Repeat BMP in afternoon - Pt has poor PO intake and on UNA 6. HTN - Continue Metoprolol - Started, cont lisinopril 2.5mg daily 7. Hyperkalemia - Possible d/t UNA/poor po intake - Start fluids as above 8. PSVT - Metoprolol 50mg TID 9. UTI - Urine with staph epi (received Vanco x2 doses) - Completed course of Meropenem 04/20 10. Parkinson's disease - Sinemet Cr 25/100 to tid - Pramipexole to 0.25mg po qid 11. Left testicular pain - Resolved - Scrotal ultrasound with left hydrocele 12. Paroxysmal a.fib - Not on cardizem anymore 2/2 prior syncopal episodes - Patient is refusing anticoagulation for paf 13. COPD - Not in exacerbation, stable at present 14. Prophylaxis - Heparin 5000u sq - PT daily Visit type - Emergency Visit Emergency Visit: Yes ED Registration Date: 04/11/17 Care time: The patient presented to the Emergency Department on the above date and was hospitalized for further evaluation of their emergent condition. - New Patient This patient is new to me today: No - Critical Care Critical Care patient: No
--- NOTE | 2017-04-24 11:37 | PN ---
Progress Note, Physician Chief Complaint: Pt has eyes open; screams when moved form pain, apparently at surgical site from back surgery, )as indicated nonverbally by a shake of his head); periods of poor response to verbal queries, then moves on his own, or answers with a "yes". Does not move legs on request. History of Present Illness: Patient is a 71 year old white male with a history of depression, anxiety, paroxysmal afib, Known LBBB, HTN, CKD stage 3, Nephrolithiasis(s/p R UVJ Stent) , BPH and Chronic back pain who presents with acute worsening of bilateral lower extremity pain and lower back pain. The patient reports that his chronic lower extremity pain acutely worsened earlier today and did not respond to taking 4-5 percocet prompting him to present to the ED today. Of note, he had a recent admission 03/2017 for similar complaints where he underwent a diagnostic LP and MRI which did not demonstrate etiologies of his back pain. He has had 2 laminectomies in the past that did not help resolve his pain. He has presented multiple times to our ED and OSH EDs for similar worsening of his bilateral lower extremity pain. He denies saddle anesthesia, but notes some numbness and tingling in his lower extremities. He states that he is unable to ambulate at home secondary to pain. He denies fevers, chills, SOB, chest pain, abdominal pain, or changes with urination or bowel movements. - Current Medication List Current Medications: Active Medications Carbidopa/Levodopa (Sinemet *Cr* 50/200 -) 1 combo PO 0700,1200,1700 [facility] Last Admin: 04/24/17 05:59 Dose: 1 combo Diazepam (Valium -) 2.5 mg PO Q6HPO PRN PRN Reason: LOWER BACK PAIN Docusate Sodium (Colace -) 100 mg PO Q8H PRN PRN Reason: CONSTIPATION Last Admin: 04/22/17 09:47 Dose: 100 mg Ferrous Sulfate (Feosol -) 325 mg PO BID@0800,1730 [facility] Last Admin: 04/24/17 08:34 Dose: 325 mg Gabapentin (Neurontin -) 400 mg PO TID [facility] Last Admin: 04/24/17 05:55 Dose: 400 mg Heparin Sodium (Porcine) (Heparin -) 5,000 unit SQ TID [facility] Last Admin: 04/24/17 05:55 Dose: 5,000 unit Sodium Chloride (Normal Saline -) 1,000 mls @ 83 mls/hr IV ASDIR [facility] Last Admin: 04/24/17 09:57 Dose: 83 mls/hr Lisinopril (Prinivil) 2.5 mg PO DAILY [facility] Last Admin: 04/24/17 09:57 Dose: 2.5 mg Metoprolol Tartrate (Lopressor -) 50 mg PO TID [facility] Last Admin: 04/24/17 05:55 Dose: 50 mg Multivitamins/Minerals/Vitamin C (Tab-A-Vit -) 1 tab PO DAILY [facility] Ondansetron HCl (Zofran Injection) 4 mg IVPUSH Q6H PRN PRN Reason: NAUSEA AND/OR VOMITING Oxycodone HCl (Roxicodone -) 10 mg PO Q6H PRN Last Admin: 04/24/17 09:58 Dose: 10 mg Polyethylene Glycol (Miralax (For Daily Use) -) 17 gm PO DAILY [facility] Last Admin: 04/24/17 09:57 Dose: Not Given Pramipexole Dihydrochloride (Mirapex -) 0.5 mg PO 0700,1200,1700 [facility] Last Admin: 04/24/17 05:59 Dose: 0.5 mg Pramipexole Dihydrochloride (Mirapex -) 0.5 mg PO HS [facility] Last Admin: 04/23/17 23:33 Dose: 0.5 mg Senna (Senna -) 1 tab PO BID [facility] Last Admin: 04/24/17 09:58 Dose: 1 tab - Objective Vital Signs: Vital Signs Temperature 97.6 F 04/24/17 09:53 Pulse Rate 79 04/24/17 09:53 Respiratory Rate 22 04/24/17 09:53 Blood Pressure 131/72 04/24/17 09:53 O2 Sat by Pulse Oximetry (%) 96 04/24/17 09:00 Constitutional: Yes: Other (periods of unresponsiveness) Eyes: Yes: WNL HENT: Yes: WNL Neck: Yes: WNL Cardiovascular: Yes: S1, S2 (split) Respiratory: Yes: Diminished Gastrointestinal: Yes: Distention Genitourinary: No: Anuria Musculoskeletal: Yes: Back Pain Extremities: Yes: Cool Edema: No Peripheral Pulses WNL: Yes Integumentary: Yes: WNL Neurological: Yes: Weakness Labs: CBC, BMP 04/24/17 07:00 04/24/17 07:00 INR, PTT INR 1.00 (0.82-1.09) 04/13/17 06:00 Problem List - Problems (1) BPH (benign prostatic hyperplasia) Code(s): N40.0 - BENIGN PROSTATIC HYPERPLASIA WITHOUT LOWER URINRY TRACT SYMP (2) Chronic obstructive pulmonary disease (COPD) Code(s): J44.9 - CHRONIC OBSTRUCTIVE PULMONARY DISEASE, UNSPECIFIED (3) Diverticulosis Code(s): K57.90 - DVRTCLOS OF INTEST, PART UNSP, W/O PERF OR ABSCESS W/O BLEED (4) Syncope Code(s): R55 - SYNCOPE AND COLLAPSE Qualifiers: Qualified Code(s): R55 - Syncope and collapse (5) Back pain Assessment/Plan: Pt's chronic dependence on opiates, couple with recent sedation and additional pain medications, may be exacerbating his confusion and lethargy. F/u with pattern painter. Physical rehabilitation when cooperative. Code(s): M54.9 - DORSALGIA, UNSPECIFIED Qualifiers: Qualified Code(s): M54.5 - Low back pain (6) Depression Code(s): F32.9 - MAJOR DEPRESSIVE DISORDER, SINGLE EPISODE, UNSPECIFIED Qualifiers: Qualified Code(s): F33.0 - Major depressive disorder, recurrent, mild (7) HTN (hypertension) Assessment/Plan: On metoprolol for HR and BP; on lisinopril; off amlodipine. F/u BMP, electgrolytes. Avoid dehydration (increased BUN/Cr). Code(s): I10 - ESSENTIAL (PRIMARY) HYPERTENSION Qualifiers: Qualified Code(s): I10 - Essential (primary) hypertension (8) Hyperlipidemia Code(s): E78.5 - HYPERLIPIDEMIA, UNSPECIFIED Qualifiers: Qualified Code(s): E78.5 - Hyperlipidemia, unspecified (9) LBBB (left bundle branch block) Code(s): I44.7 - LEFT BUNDLE-BRANCH BLOCK, UNSPECIFIED (10) SVT (supraventricular tachycardia) Assessment/Plan: brief epsiode PSVTY at 4 am today. metoprolol (for systolic CHF and PSVT); increased to 50 mg tid because of continued episodes of PSVT. Increase to 100 mg bid metoprolol if continued PSVT if arrhythmia persists after better pain management. HR and BP now better controlled; fewer episodes of PSVT. Holter 11/18: NSR; LBBB; PSVT; brief run of what was likely PAT. Mg repleted; maintain all electrolytes (keep K- 4-4.5; Mg 2-2.3; PO4 2.5-3.5) TSH WNL. Maintain hydration; f/u anemia workup. Code(s): I47.1 - SUPRAVENTRICULAR TACHYCARDIA (11) CKD (chronic kidney disease) stage 3, GFR 30-59 ml/min Code(s): N18.3 - CHRONIC KIDNEY DISEASE, STAGE 3 (MODERATE) (12) Osteoporosis Code(s): M81.0 - AGE-RELATED OSTEOPOROSIS W/O CURRENT PATHOLOGICAL FRACTURE (13) Weakness Code(s): R53.1 - WEAKNESS (14) Systolic CHF Assessment/Plan: mildly reduced LVEF on 11/18 ECHO, with mild MR and TR. Started metoprolol; f/u BP and HR (both now better-controlled). Added lisinopril. BP and HR well-controlled. Now afebrile. Code(s): I50.20 - UNSPECIFIED SYSTOLIC (CONGESTIVE) HEART FAILURE (15) S/P laminectomy Code(s): Z98.890 - OTHER SPECIFIED POSTPROCEDURAL STATES (16) Atypical chest pain Code(s): R07.89 - OTHER CHEST PAIN (17) Anemia Code(s): D64.9 - ANEMIA, UNSPECIFIED (18) Parkinson disease Code(s): G20 - PARKINSON'S DISEASE
[2017-04-24] MEDS: MULTIVITAMINS (DAILY MVI) TABLET (FP) PO SCH (14:06)
--- NOTE | 2017-04-24 14:37 | EKG ---
Test Reason : Blood Pressure : / mmHG Vent. Rate : 083 BPM Atrial Rate : 083 BPM P-R Int : 162 ms QRS Dur : 138 ms QT Int : 400 ms P-R-T Axes : 014 -47 073 degrees QTc Int : 470 ms NORMAL SINUS RHYTHM LEFT AXIS DEVIATION LEFT BUNDLE BRANCH BLOCK ABNORMAL ECG WHEN COMPARED WITH ECG OF 15-APR-2017 16:27, PREMATURE ATRIAL COMPLEXES ARE NO LONGER PRESENT Confirmed by JUSTIN CANALES MD ([id number]) on 04/24/2017 2:36:43 PM Referred By: Confirmed By:JUSTIN CANALES MD
--- NOTE | 2017-04-24 15:17 | PN ---
Progress Note, Physician History of Present Illness: pain main issues awake and alert - Current Medication List Current Medications: Active Medications Carbidopa/Levodopa (Sinemet *Cr* 50/200 -) 1 combo PO 0700,1200,1700 [facility] Last Admin: 04/24/17 14:06 Dose: 1 combo Diazepam (Valium -) 2.5 mg PO Q6HPO PRN PRN Reason: LOWER BACK PAIN Docusate Sodium (Colace -) 100 mg PO Q8H PRN PRN Reason: CONSTIPATION Last Admin: 04/22/17 09:47 Dose: 100 mg Ferrous Sulfate (Feosol -) 325 mg PO BID@0800,1730 [facility] Last Admin: 04/24/17 08:34 Dose: 325 mg Gabapentin (Neurontin -) 400 mg PO TID [facility] Last Admin: 04/24/17 14:07 Dose: 400 mg Heparin Sodium (Porcine) (Heparin -) 5,000 unit SQ TID [facility] Last Admin: 04/24/17 14:07 Dose: 5,000 unit Sodium Chloride (Normal Saline -) 1,000 mls @ 83 mls/hr IV ASDIR [facility] Last Admin: 04/24/17 09:57 Dose: 83 mls/hr Lisinopril (Prinivil) 2.5 mg PO DAILY [facility] Last Admin: 04/24/17 09:57 Dose: 2.5 mg Metoprolol Tartrate (Lopressor -) 50 mg PO TID [facility] Last Admin: 04/24/17 14:07 Dose: 50 mg Multivitamins/Minerals/Vitamin C (Tab-A-Vit -) 1 tab PO DAILY [facility] Last Admin: 04/24/17 14:06 Dose: 1 tab Ondansetron HCl (Zofran Injection) 4 mg IVPUSH Q6H PRN PRN Reason: NAUSEA AND/OR VOMITING Oxycodone HCl (Roxicodone -) 10 mg PO Q6H PRN Last Admin: 04/24/17 09:58 Dose: 10 mg Polyethylene Glycol (Miralax (For Daily Use) -) 17 gm PO DAILY [facility] Last Admin: 04/24/17 09:57 Dose: Not Given Pramipexole Dihydrochloride (Mirapex -) 0.5 mg PO 0700,1200,1700 [facility] Last Admin: 04/24/17 14:06 Dose: 0.5 mg Pramipexole Dihydrochloride (Mirapex -) 0.5 mg PO HS [facility] Last Admin: 04/23/17 23:33 Dose: 0.5 mg Senna (Senna -) 1 tab PO BID [facility] Last Admin: 04/24/17 09:58 Dose: 1 tab - Objective Vital Signs: Vital Signs Temperature 97.6 F 04/24/17 12:00 Pulse Rate 81 04/24/17 14:11 Respiratory Rate 22 04/24/17 12:00 Blood Pressure 131/72 04/24/17 12:00 O2 Sat by Pulse Oximetry (%) 96 04/24/17 14:11 Constitutional: Yes: No Distress, Calm Cardiovascular: Yes: Regular Rate and Rhythm Respiratory: Yes: Regular, CTA Bilaterally Gastrointestinal: Yes: Normal Bowel Sounds, Soft Musculoskeletal: Yes: Other Extremities: Yes: Other Wound/Incision: Yes: Dressing Dry and Intact Neurological: Yes: Alert Psychiatric: Yes: Alert Labs: CBC, BMP 04/24/17 07:00 04/24/17 07:00 INR, PTT INR 1.00 (0.82-1.09) 04/13/17 06:00 Assessment/Plan Problem List - Problems (1) Chronic obstructive pulmonary disease (COPD) Code(s): J44.9 - CHRONIC OBSTRUCTIVE PULMONARY DISEASE, UNSPECIFIED (2) Lower extremity pain Code(s): M79.606 - PAIN IN LEG, UNSPECIFIED Qualifiers: Laterality: bilateral Qualified Code(s): M79.604 - Pain in right leg (3) Carotid stenosis Code(s): I65.29 - OCCLUSION AND STENOSIS OF UNSPECIFIED CAROTID ARTERY (4) HTN (hypertension) Code(s): I10 - ESSENTIAL (PRIMARY) HYPERTENSION Qualifiers: Hypertension type: essential hypertension Qualified Code(s): I10 - Essential (primary) hypertension (5) Afib Code(s): I48.91 - UNSPECIFIED ATRIAL FIBRILLATION (6) CKD (chronic kidney disease) stage 3, GFR 30-59 ml/min Code(s): N18.3 - CHRONIC KIDNEY DISEASE, STAGE 3 (MODERATE) (7) BPH (benign prostatic hyperplasia) Code(s): N40.0 - BENIGN PROSTATIC HYPERPLASIA WITHOUT LOWER URINRY TRACT SYMP (8) Back pain Code(s): M54.9 - DORSALGIA, UNSPECIFIED Qualifiers: Back pain location: low back pain Chronicity: chronic Back pain laterality: bilateral Sciatica presence: unspecified whether sciatica present Qualified Code(s): M54.5 - Low back pain uti plan close monitoring physiotherapy continue monitoring rest as per primary team watch on wbc
[2017-04-24 18:36] LABS: ANION GAP 5 (8-16); CALCIUM 8.5 mg/dL (8.5-10.1); CO2 27 mmol/L (21-32); CREATININE 1.6 mg/dL (0.7-1.3); GLUCOSE,RANDOM 97 mg/dL (74-106)
[2017-04-24] MEDS ORDERED: SODIUM POLYSTYRENE SULFONATE 15 GM/60 ML BOTTLE PO ONE (19:26)
[2017-04-24] MEDS ORDERED: SODIUM CHLORIDE 0.45% 1,000 ML IV SCH (19:30)
[2017-04-25] MEDS: oxyCODONE HCL 5 MG TABLET PO PRN ×3 (00:14→21:14)
[2017-04-25] MEDS: diazePAM 5 MG TABLET PO PRN ×3 (05:34→21:14)
[2017-04-25] MEDS: HEPARIN NA (PORCINE) 5,000 UNITS/ML 1ML VIAL SQ SCH ×3 (05:35→21:13)
[2017-04-25] MEDS: GABAPENTIN 400 MG CAPSULE (FP) PO SCH ×3 (05:35→21:14)
[2017-04-25] MEDS: METOPROLOL TARTRATE 50 MG TABLET (FP) PO SCH ×3 (05:35→21:13)
[2017-04-25] MEDS ORDERED: PT OWN MED DRAWER 7, Y5N ONE ×2 (06:51→11:50)
[2017-04-25] MEDS: PRAMIPEXOLE DIHYDROCHLORIDE 0.5 MG TABLET PO SCH ×4 (06:53→21:14)
[2017-04-25 07:13] LABS: ANION GAP 10 (8-16); CALCIUM 8.2 mg/dL (8.5-10.1); CO2 26 mmol/L (21-32); CREATININE 1.6 mg/dL (0.7-1.3); GLUCOSE,RANDOM 100 mg/dL (74-106); MAGNESIUM 3.1 mg/dL (1.8-2.4); PHOSPHOROUS 4.4 mg/dL (2.5-4.9)
[2017-04-25] MEDS ORDERED: TRIAMCINOLONE ACET 40MG/1ML VIAL IM ONE (09:09)
[2017-04-25] MEDS ORDERED: BUPIVACAINE HCL/PF (5 MG/ML) 30 ML VIAL IJ ONE (09:15)
[2017-04-25] MEDS ORDERED: LIDOCAINE HCL 1%, 10 MG/ML (20ML VIAL) NR ONE (09:30)
[2017-04-25] MEDS ORDERED: LIDOCAINE HCL 1%, 10 MG/ML (20ML VIAL) ONE (09:36)
[2017-04-25] MEDS: FERROUS SO4 325 MG TABLET (FP) PO SCH ×2 (09:50→17:49)
[2017-04-25] MEDS: MULTIVITAMINS (DAILY MVI) TABLET (FP) PO SCH (09:50)
[2017-04-25] MEDS: POLYETHYLENE GLYCOL 3350 119 GM BTL PO SCH (09:50)
[2017-04-25] MEDS: SENNOSIDES 8.6MG TABLET (FP) PO SCH ×2 (09:50→21:14)
--- NOTE | 2017-04-25 13:35 | PN ---
Progress Note, Physician History of Present Illness: clinically patient is better sister in room pain is the main issue - Current Medication List Current Medications: Active Medications Carbidopa/Levodopa (Sinemet *Cr* 50/200 -) 1 combo PO 0700,1200,1700 [facility] Last Admin: 04/25/17 12:10 Dose: 1 combo Diazepam (Valium -) 2.5 mg PO Q6HPO PRN PRN Reason: LOWER BACK PAIN Last Admin: 04/25/17 12:11 Dose: 2.5 mg Docusate Sodium (Colace -) 100 mg PO Q8H PRN PRN Reason: CONSTIPATION Last Admin: 04/22/17 09:47 Dose: 100 mg Ferrous Sulfate (Feosol -) 325 mg PO BID@0800,1730 [facility] Last Admin: 04/25/17 09:50 Dose: 325 mg Gabapentin (Neurontin -) 400 mg PO TID [facility] Last Admin: 04/25/17 05:35 Dose: 400 mg Heparin Sodium (Porcine) (Heparin -) 5,000 unit SQ TID [facility] Last Admin: 04/25/17 05:35 Dose: 5,000 unit Sodium Chloride (1/2 Normal Saline) 1,000 mls @ 50 mls/hr IV ASDIR [facility] Stop: 04/25/17 19:30 Last Admin: 04/24/17 20:21 Dose: 50 mls/hr Metoprolol Tartrate (Lopressor -) 50 mg PO TID [facility] Last Admin: 04/25/17 05:35 Dose: 50 mg Multivitamins/Minerals/Vitamin C (Tab-A-Vit -) 1 tab PO DAILY [facility] Last Admin: 04/25/17 09:50 Dose: 1 tab Ondansetron HCl (Zofran Injection) 4 mg IVPUSH Q6H PRN PRN Reason: NAUSEA AND/OR VOMITING Oxycodone HCl (Roxicodone -) 10 mg PO Q6H PRN Last Admin: 04/25/17 12:11 Dose: 10 mg Polyethylene Glycol (Miralax (For Daily Use) -) 17 gm PO DAILY [facility] Last Admin: 04/25/17 09:50 Dose: Not Given Pramipexole Dihydrochloride (Mirapex -) 0.5 mg PO 0700,1200,1700 [facility] Last Admin: 04/25/17 12:10 Dose: 0.5 mg Pramipexole Dihydrochloride (Mirapex -) 0.5 mg PO HS [facility] Last Admin: 04/24/17 21:15 Dose: 0.5 mg Senna (Senna -) 1 tab PO BID [facility] Last Admin: 04/25/17 09:50 Dose: 1 tab - Objective Vital Signs: Vital Signs Temperature 99.2 F 04/25/17 10:00 Pulse Rate 77 04/25/17 10:00 Respiratory Rate 20 04/25/17 10:00 Blood Pressure 153/72 04/25/17 10:00 O2 Sat by Pulse Oximetry (%) 98 04/25/17 09:15 Constitutional: Yes: Calm, Moderate Distress Cardiovascular: Yes: Regular Rate and Rhythm Respiratory: Yes: Regular, CTA Bilaterally Gastrointestinal: Yes: Normal Bowel Sounds, Soft Musculoskeletal: Yes: Other Neurological: Yes: Alert Psychiatric: Yes: Alert Labs: CBC, BMP 04/24/17 07:00 04/25/17 05:30 INR, PTT INR 1.00 (0.82-1.09) 04/13/17 06:00 Assessment/Plan Problem List - Problems (1) Chronic obstructive pulmonary disease (COPD) Code(s): J44.9 - CHRONIC OBSTRUCTIVE PULMONARY DISEASE, UNSPECIFIED (2) Lower extremity pain Code(s): M79.606 - PAIN IN LEG, UNSPECIFIED Qualifiers: Laterality: bilateral Qualified Code(s): M79.604 - Pain in right leg (3) Carotid stenosis Code(s): I65.29 - OCCLUSION AND STENOSIS OF UNSPECIFIED CAROTID ARTERY (4) HTN (hypertension) Code(s): I10 - ESSENTIAL (PRIMARY) HYPERTENSION Qualifiers: Hypertension type: essential hypertension Qualified Code(s): I10 - Essential (primary) hypertension (5) Afib Code(s): I48.91 - UNSPECIFIED ATRIAL FIBRILLATION (6) CKD (chronic kidney disease) stage 3, GFR 30-59 ml/min Code(s): N18.3 - CHRONIC KIDNEY DISEASE, STAGE 3 (MODERATE) (7) BPH (benign prostatic hyperplasia) Code(s): N40.0 - BENIGN PROSTATIC HYPERPLASIA WITHOUT LOWER URINRY TRACT SYMP (8) Back pain Code(s): M54.9 - DORSALGIA, UNSPECIFIED Qualifiers: Back pain location: low back pain Chronicity: chronic Back pain laterality: bilateral Sciatica presence: unspecified whether sciatica present Qualified Code(s): M54.5 - Low back pain uti wbc has increased plan close monitoring physiotherapy continue monitoring rest as per primary team watch on wbc repeat blood cx and urine cx if wbc increases more might have to start abx
--- NOTE | 2017-04-25 16:15 | PN ---
Progress Note, Physician Chief Complaint: Pt more alert; speech is, as usual, garbled. History of Present Illness: Patient is a 71 year old white male with a history of depression, anxiety, paroxysmal afib, Known LBBB, HTN, CKD stage 3, Nephrolithiasis(s/p R UVJ Stent) , BPH and Chronic back pain who presents with acute worsening of bilateral lower extremity pain and lower back pain. The patient reports that his chronic lower extremity pain acutely worsened earlier today and did not respond to taking 4-5 percocet prompting him to present to the ED today. Of note, he had a recent admission 03/2017 for similar complaints where he underwent a diagnostic LP and MRI which did not demonstrate etiologies of his back pain. He has had 2 laminectomies in the past that did not help resolve his pain. He has presented multiple times to our ED and OSH EDs for similar worsening of his bilateral lower extremity pain. He denies saddle anesthesia, but notes some numbness and tingling in his lower extremities. He states that he is unable to ambulate at home secondary to pain. He denies fevers, chills, SOB, chest pain, abdominal pain, or changes with urination or bowel movements. - Current Medication List Current Medications: Active Medications Carbidopa/Levodopa (Sinemet *Cr* 50/200 -) 1 combo PO 0700,1200,1700 [facility] Last Admin: 04/25/17 12:10 Dose: 1 combo Diazepam (Valium -) 2.5 mg PO Q6HPO PRN PRN Reason: LOWER BACK PAIN Last Admin: 04/25/17 12:11 Dose: 2.5 mg Docusate Sodium (Colace -) 100 mg PO Q8H PRN PRN Reason: CONSTIPATION Last Admin: 04/22/17 09:47 Dose: 100 mg Ferrous Sulfate (Feosol -) 325 mg PO BID@0800,1730 [facility] Last Admin: 04/25/17 09:50 Dose: 325 mg Gabapentin (Neurontin -) 400 mg PO TID [facility] Last Admin: 04/25/17 14:21 Dose: 400 mg Heparin Sodium (Porcine) (Heparin -) 5,000 unit SQ TID [facility] Last Admin: 04/25/17 14:21 Dose: 5,000 unit Sodium Chloride (1/2 Normal Saline) 1,000 mls @ 50 mls/hr IV ASDIR [facility] Stop: 04/25/17 19:30 Last Admin: 04/24/17 20:21 Dose: 50 mls/hr Metoprolol Tartrate (Lopressor -) 50 mg PO TID [facility] Last Admin: 04/25/17 14:21 Dose: 50 mg Multivitamins/Minerals/Vitamin C (Tab-A-Vit -) 1 tab PO DAILY [facility] Last Admin: 04/25/17 09:50 Dose: 1 tab Ondansetron HCl (Zofran Injection) 4 mg IVPUSH Q6H PRN PRN Reason: NAUSEA AND/OR VOMITING Oxycodone HCl (Roxicodone -) 10 mg PO Q6H PRN Last Admin: 04/25/17 12:11 Dose: 10 mg Polyethylene Glycol (Miralax (For Daily Use) -) 17 gm PO DAILY [facility] Last Admin: 04/25/17 09:50 Dose: Not Given Pramipexole Dihydrochloride (Mirapex -) 0.5 mg PO 0700,1200,1700 [facility] Last Admin: 04/25/17 12:10 Dose: 0.5 mg Pramipexole Dihydrochloride (Mirapex -) 0.5 mg PO HS [facility] Last Admin: 04/24/17 21:15 Dose: 0.5 mg Senna (Senna -) 1 tab PO BID [facility] Last Admin: 04/25/17 09:50 Dose: 1 tab - Objective Vital Signs: Vital Signs Temperature 98.7 F 04/25/17 14:19 Pulse Rate 76 04/25/17 14:19 Respiratory Rate 18 04/25/17 14:19 Blood Pressure 113/65 04/25/17 14:19 O2 Sat by Pulse Oximetry (%) 98 04/25/17 09:15 Constitutional: Yes: Anxious, Mild Distress Eyes: Yes: WNL HENT: Yes: Pharyngeal Erythema Neck: Yes: WNL Cardiovascular: Yes: Pulse Irregular Respiratory: Yes: Regular Gastrointestinal: Yes: Soft Genitourinary: No: Anuria Breast(s): Yes: Other Musculoskeletal: Yes: Muscle Pain, Muscle Weakness Extremities: Yes: Cool Edema: No Peripheral Pulses WNL: No Peripheral Pulses: Left Doralis Pedis: 1+, Right Dorsalis Pedis: 1+ Integumentary: Yes: WNL Neurological: Yes: Confusion, Weakness Psychiatric: Yes: Other Labs: CBC, BMP 04/24/17 07:00 04/25/17 05:30 INR, PTT INR 1.00 (0.82-1.09) 04/13/17 06:00 - ....Imaging EKG: Image Reviewed (nsr; LBBB) Problem List - Problems (1) BPH (benign prostatic hyperplasia) Code(s): N40.0 - BENIGN PROSTATIC HYPERPLASIA WITHOUT LOWER URINRY TRACT SYMP (2) Chronic obstructive pulmonary disease (COPD) Code(s): J44.9 - CHRONIC OBSTRUCTIVE PULMONARY DISEASE, UNSPECIFIED (3) Diverticulosis Code(s): K57.90 - DVRTCLOS OF INTEST, PART UNSP, W/O PERF OR ABSCESS W/O BLEED (4) Syncope Code(s): R55 - SYNCOPE AND COLLAPSE Qualifiers: Qualified Code(s): R55 - Syncope and collapse (5) Back pain Assessment/Plan: Pt's chronic dependence on opiates, couple with recent sedation and additional pain medications, may be exacerbating his confusion and lethargy. 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 Physical rehabilitation when cooperative. Code(s): M54.9 - DORSALGIA, UNSPECIFIED Qualifiers: Qualified Code(s): M54.5 - Low back pain (6) Depression Code(s): F32.9 - MAJOR DEPRESSIVE DISORDER, SINGLE EPISODE, UNSPECIFIED Qualifiers: Qualified Code(s): F33.0 - Major depressive disorder, recurrent, mild (7) HTN (hypertension) Code(s): I10 - ESSENTIAL (PRIMARY) HYPERTENSION Qualifiers: Qualified Code(s): I10 - Essential (primary) hypertension (8) Hyperlipidemia Assessment/Plan: f/u lipids (total cholesterol 151 mg/dL on 05/2016). Code(s): E78.5 - HYPERLIPIDEMIA, UNSPECIFIED Qualifiers: Qualified Code(s): E78.5 - Hyperlipidemia, unspecified (9) LBBB (left bundle branch block) Assessment/Plan: chronic. Code(s): I44.7 - LEFT BUNDLE-BRANCH BLOCK, UNSPECIFIED (10) SVT (supraventricular tachycardia) Assessment/Plan: metoprolol (for systolic CHF and PSVT); increased to 50 mg tid because of continued episodes of PSVT. Increase to 100 mg bid metoprolol if continued PSVT if arrhythmia persists after better pain management. HR and BP now better controlled; fewer episodes of PSVT. Holter 11/18: NSR; LBBB; PSVT; brief run of what was likely PAT. Mg repleted; maintain all electrolytes (keep K- 4-4.5; Mg 2-2.3; PO4 2.5-3.5) TSH WNL. Maintain hydration; f/u anemia workup. Code(s): I47.1 - SUPRAVENTRICULAR TACHYCARDIA (11) CKD (chronic kidney disease) stage 3, GFR 30-59 ml/min Assessment/Plan: avoid dehydration. Code(s): N18.3 - CHRONIC KIDNEY DISEASE, STAGE 3 (MODERATE) (12) Osteoporosis Code(s): M81.0 - AGE-RELATED OSTEOPOROSIS W/O CURRENT PATHOLOGICAL FRACTURE (13) Weakness Code(s): R53.1 - WEAKNESS (14) Systolic CHF Code(s): I50.20 - UNSPECIFIED SYSTOLIC (CONGESTIVE) HEART FAILURE (15) S/P laminectomy Assessment/Plan: f/u with neurosurgeon. Code(s): Z98.890 - OTHER SPECIFIED POSTPROCEDURAL STATES (16) Atypical chest pain Assessment/Plan: hx atypical chest pain; latest stress MIBI at [facility] a little more than a year ago reportedly without ischemia; f/u report. Presently has both chest and back pain; EKG unchanged. TNI has remained 0.02. Code(s): R07.89 - OTHER CHEST PAIN (17) Anemia Assessment/Plan: f/u significant drop in Hb. s/p PRBCs. Code(s): D64.9 - ANEMIA, UNSPECIFIED (18) Parkinson disease Assessment/Plan: on Sinemet. Code(s): G20 - PARKINSON'S DISEASE
--- NOTE | 2017-04-25 16:42 | PN ---
Physical Exam: SUBJECTIVE: Patient seen and examined. He appears less distressed at this time, he says his pain is better, however still difficult to move. OBJECTIVE: Vital Signs Period Temp Pulse Resp BP Sys/Suazo Pulse Ox Last 24 Hr 97.6 F-99.2 F 76-88 16-20 95-153/56-72 93-98 PE Neuro: alert, awake, cn 2-12intact, 5/5 motor in bed Pulm: clear anteriorly +nc CV: s1 s2 regular rate rhythm Abd: s nt nd +bs Ext: + DP pulses, no le edema Laboratory Results - last 24 hr 04/24/17 04/25/17 17:59 05:30 Sodium 139 142 Potassium 5.7 H 5.0 Chloride 107 106 Carbon Dioxide 27 26 Anion Gap 5 L 10 BUN 51 H 51 H Creatinine 1.6 H 1.6 H Random Glucose 97 100 Calcium 8.5 8.2 L Phosphorus 4.4 Magnesium 3.1 H Active Medications Generic Name Dose Route Start Last Admin Trade Name Freq PRN Reason Stop Dose Admin Carbidopa/Levodopa 1 combo 04/16/17 17:00 04/25/17 12:10 Sinemet *Cr* 50/200 - PO 1 combo 0700,1200,1700 SIENA Administration Diazepam 2.5 mg 04/24/17 10:25 04/25/17 12:11 Valium - PO 2.5 mg Q6HPO PRN Administration LOWER BACK PAIN Docusate Sodium 100 mg 04/18/17 14:21 04/22/17 09:47 Colace - PO 100 mg Q8H PRN Administration CONSTIPATION Ferrous Sulfate 325 mg 04/21/17 08:00 04/25/17 09:50 Feosol - PO 325 mg BID@0800,1730 SIENA Administration Gabapentin 400 mg 04/18/17 22:00 04/25/17 14:21 Neurontin - PO 400 mg TID SIENA Administration Heparin Sodium (Porcine) 5,000 unit 04/21/17 14:00 04/25/17 14:21 Heparin - SQ 5,000 unit TID SIENA Administration Sodium Chloride 1,000 mls @ 50 mls/hr 04/24/17 19:30 04/24/17 20:21 1/2 Normal Saline IV 04/25/17 19:30 50 mls/hr ASDIR SIENA Administration Metoprolol Tartrate 50 mg 04/17/17 14:00 04/25/17 14:21 Lopressor - PO 50 mg TID SIENA Administration Multivitamins/Minerals/Vitamin C 1 tab 04/24/17 11:00 04/25/17 09:50 Tab-A-Vit - PO 1 tab DAILY SIENA Administration Ondansetron HCl 4 mg 04/16/17 16:18 Zofran Injection IVPUSH Q6H PRN NAUSEA AND/OR VOMITING Oxycodone HCl 10 mg 04/23/17 09:15 04/25/17 12:11 Roxicodone - PO 10 mg Q6H PRN Administration Polyethylene Glycol 17 gm 04/17/17 10:00 04/25/17 09:50 Miralax (For Daily Use) - PO Not Given DAILY SIENA Pramipexole Dihydrochloride 0.5 mg 04/16/17 17:00 04/25/17 12:10 Mirapex - PO 0.5 mg 0700,1200,1700 SIENA Administration Pramipexole Dihydrochloride 0.5 mg 04/16/17 22:00 04/24/17 21:15 Mirapex - PO 0.5 mg HS SIENA Administration Senna 1 tab 04/23/17 10:15 04/25/17 09:50 Senna - PO 1 tab BID SIENA Administration Assessment: 71 year old male with PMHx of HTN, HLD, paroxysmal a.fib, pulmonary HTN, COPD, depression, anxiety, CKD stage 3, chronic back and b/l leg pain admitted with worsening back and lower extremity pain, s/p laminectomy w/ fusion T12-S2 04/13. Plan: 1. Acute on chronic b/l lower extremity pain - S/p laminectomy with fusion T12-S2, repair pseudo menigoceal on 04/13 - CRUZ drain removed 04/23 2. Uncontrolled pain - Pain appears stable today, however Dr. Mondragon to reassess as levels difficult to maintain due to over sedation/not opiate naive - Valium 2.5mg po q6h PRN - Maintain Oxycodone 10mg q8h - Neurontin 400mg po tid 3. Acute blood loss anemia - Likely d/t surgery and CKD, iron studies off due to transfusion - Continue Ferrous sulfate BID - Transfused 2uprbc 04/18- 4. Leukocytosis - Persistently rising, cxr w/o airspace dz - Repeat urine and blood cultures 5. CKD - Cr mild improvement - Decrease fluids 42cc/hr - Stop UNA 6. HTN - Continue Metoprolol - Hold UNA for hypokalemia 7. Hyperkalemia - Improved with kayexalate 8. PSVT - Increased metoprolol 100mg TID, if persistent will need improve pain mgmt - Cardiology following 9. UTI - Urine with staph epi (received Vanco x2 doses) - Completed course of Meropenem 04/20 10. Parkinson's disease - Sinemet Cr 25/100 to tid - Pramipexole to 0.25mg po qid 11. Left testicular pain - Resolved - Scrotal ultrasound with left hydrocele 12. Paroxysmal a.fib - Not on cardizem anymore 2/2 prior syncopal episodes - Patient is refusing anticoagulation for paf 13. COPD - Not in exacerbation, stable at present 14. Prophylaxis - Heparin 5000u sq - PT daily - LTAC denied stay, needs structured PT and pain mgmt, will go to SNF once stable Visit type - Emergency Visit Emergency Visit: Yes ED Registration Date: 04/11/17 Care time: The patient presented to the Emergency Department on the above date and was hospitalized for further evaluation of their emergent condition. - New Patient This patient is new to me today: No - Critical Care Critical Care patient: No
[2017-04-25] MEDS: SODIUM CHLORIDE 0.45% 1,000 ML IV SCH (16:45)
--- NOTE | 2017-04-26 06:35 | PN ---
Progress Note, Physician History of Present Illness: seen and examined today in nad. seems confused. awake and alert. - Current Medication List Current Medications: Active Medications Carbidopa/Levodopa (Sinemet *Cr* 50/200 -) 1 combo PO 0700,1200,1700 [facility] Last Admin: 04/25/17 17:49 Dose: 1 combo Diazepam (Valium -) 2.5 mg PO Q6HPO PRN PRN Reason: LOWER BACK PAIN Last Admin: 04/25/17 21:14 Dose: 2.5 mg Docusate Sodium (Colace -) 100 mg PO Q8H PRN PRN Reason: CONSTIPATION Last Admin: 04/22/17 09:47 Dose: 100 mg Ferrous Sulfate (Feosol -) 325 mg PO BID@0800,1730 [facility] Last Admin: 04/25/17 17:49 Dose: 325 mg Gabapentin (Neurontin -) 400 mg PO TID [facility] Last Admin: 04/25/17 21:14 Dose: 400 mg Heparin Sodium (Porcine) (Heparin -) 5,000 unit SQ TID [facility] Last Admin: 04/25/17 21:13 Dose: 5,000 unit Sodium Chloride (1/2 Normal Saline) 1,000 mls @ 42 mls/hr IV ASDIR [facility] Last Admin: 04/25/17 16:45 Dose: 42 mls/hr Metoprolol Tartrate (Lopressor -) 50 mg PO TID [facility] Last Admin: 04/25/17 21:13 Dose: 50 mg Multivitamins/Minerals/Vitamin C (Tab-A-Vit -) 1 tab PO DAILY [facility] Last Admin: 04/25/17 09:50 Dose: 1 tab Ondansetron HCl (Zofran Injection) 4 mg IVPUSH Q6H PRN PRN Reason: NAUSEA AND/OR VOMITING Oxycodone HCl (Roxicodone -) 10 mg PO Q6H PRN Last Admin: 04/25/17 21:14 Dose: 10 mg Polyethylene Glycol (Miralax (For Daily Use) -) 17 gm PO DAILY [facility] Last Admin: 04/25/17 09:50 Dose: Not Given Pramipexole Dihydrochloride (Mirapex -) 0.5 mg PO 0700,1200,1700 [facility] Last Admin: 04/25/17 17:49 Dose: 0.5 mg Pramipexole Dihydrochloride (Mirapex -) 0.5 mg PO HS [facility] Last Admin: 04/25/17 21:14 Dose: 0.5 mg Senna (Senna -) 1 tab PO BID [facility] Last Admin: 04/25/17 21:14 Dose: 1 tab - Objective Vital Signs: Vital Signs Temperature 98.6 F 04/26/17 02:00 Pulse Rate 64 04/26/17 02:00 Respiratory Rate 20 04/26/17 02:00 Blood Pressure 133/67 04/26/17 02:00 O2 Sat by Pulse Oximetry (%) 98 04/25/17 21:00 Constitutional: Yes: No Distress, Calm Eyes: Yes: Conjunctiva Clear, EOM Intact HENT: Yes: Atraumatic, Normocephalic Neck: Yes: Supple, Trachea Midline Cardiovascular: Yes: Regular Rate and Rhythm, Murmur, S1, S2. No: Bradycardia, Tachycardia, Pulse Irregular, Bruit, JVD, Gallop, Rub, S3, S4, Varicosities Respiratory: Yes: Regular, Diminished. No: Rales, Rhonchi, Wheezes Gastrointestinal: Yes: Normal Bowel Sounds, Soft. No: Distention, Tenderness Edema: No Peripheral Pulses WNL: Yes Neurological: Yes: Alert. No: Oriented Psychiatric: Yes: Alert. No: Oriented Labs: CBC, BMP 04/24/17 07:00 04/25/17 05:30 INR, PTT INR 1.00 (0.82-1.09) 04/13/17 06:00 - ....Imaging Chest X-ray: Report Reviewed, Image Reviewed EKG: Report Reviewed, Image Reviewed Other: Report Reviewed, Image Reviewed (tele-nsr, brief episodes of PSVT) Assessment/Plan 71 year old man with a history of HTN, LBBB, Pafib, CKD, chronic back pain a/w worsening LE and back pain s/p laminectomy. Pafib-HR is adequately controlled -appears to be brief episodes of PSVT -cont metoprolol -maintain electrolytes -pt has refused AC as per notes in chart -ok to dc tele HTN-variable but overall adequately controlled -cont metoprolol Chronic systolic chf -euvolemic -monitor
[2017-04-26] MEDS ORDERED: PT OWN MED DRAWER 7, Y5N ONE (06:56)
[2017-04-26] MEDS: HEPARIN NA (PORCINE) 5,000 UNITS/ML 1ML VIAL SQ SCH ×3 (07:17→22:22)
[2017-04-26] MEDS: GABAPENTIN 400 MG CAPSULE (FP) PO SCH ×3 (07:17→22:21)
[2017-04-26] MEDS: PRAMIPEXOLE DIHYDROCHLORIDE 0.5 MG TABLET PO SCH ×4 (07:17→22:23)
[2017-04-26] MEDS: METOPROLOL TARTRATE 50 MG TABLET (FP) PO SCH ×3 (07:17→22:22)
[2017-04-26 07:44] LABS: MCHC 33.7 g/dl (32.0-35.9); MEAN CELL VOLUME 98.1 fl (80-96); MEAN PLT VOLUME 7.8 fl (7.5-11.1); PLATELET COUNT 496 K/MM3 (134-434); RDW 15.5 % (11.9-15.9); WHITE BLOOD COUNT 9.4 K/mm3 (4.0-10.0)
[2017-04-26 07:58] LABS: ALBUMIN 3.1 g/dl (3.4-5.0); ALK PHOS 94 U/L (45-117); ANION GAP 7 (8-16); BILIRUBIN,TOTAL 0.6 mg/dL (0.2-1.0); CALCIUM 8.2 mg/dL (8.5-10.1); CO2 25 mmol/L (21-32); CREATININE 1.4 mg/dL (0.7-1.3); GLUCOSE,RANDOM 97 mg/dL (74-106); MAGNESIUM 2.9 mg/dL (1.8-2.4); PHOSPHOROUS 3.2 mg/dL (2.5-4.9); SGOT/AST 39 U/L (15-37); SGPT/ALT 79 U/L (12-78); TOT PROT 5.9 g/dl (6.4-8.2)
[2017-04-26] MEDS: FERROUS SO4 325 MG TABLET (FP) PO SCH ×2 (09:55→17:47)
[2017-04-26] MEDS: SENNOSIDES 8.6MG TABLET (FP) PO SCH ×2 (09:55→22:22)
[2017-04-26] MEDS: MULTIVITAMINS (DAILY MVI) TABLET (FP) PO SCH (09:55)
[2017-04-26] MEDS: POLYETHYLENE GLYCOL 3350 119 GM BTL PO SCH (09:57)
--- NOTE | 2017-04-26 10:35 | PN ---
Physical Exam: SUBJECTIVE: Patient seen and examined. He is able to state his name, slow to respond Appears to be oversedated. Verbalizes pain with movement OBJECTIVE: Will decrease his medications slowly secondary to lethargy WBC normalizing Vital Signs Period Temp Pulse Resp BP Sys/Suazo Pulse Ox Last 24 Hr 97.9 F-98.8 F 64-80 18-22 106-155/57-88 97-98 GENERAL: The patient is awake, slow to respond, lethargic, appears to be oversedated HEAD: Normal with no signs of trauma. EYES: PERRL, extraocular movements intact, sclera anicteric, conjunctiva clear. No ptosis. ENT: Ears normal, nares patent, oropharynx clear without exudates, moist mucous membranes. NECK: Trachea midline, full range of motion, supple. ABDOMEN: Soft, nontender, nondistended, normoactive bowel sounds, no guarding, no rebound, no hepatosplenomegaly, no masses. EXTREMITIES: 2+ pulses, warm, well-perfused, no edema. NEUROLOGICAL: Normal speech, gait not observed. PSYCH: Normal mood, normal affect. Laboratory Results - last 24 hr 04/26/17 04/26/17 07:15 07:15 WBC 9.4 D RBC 3.17 L Hgb 10.5 L Hct 31.1 L MCV 98.1 H MCH 33.0 MCHC 33.7 RDW 15.5 Plt Count 496 H MPV 7.8 Sodium 141 Potassium 4.5 Chloride 109 H Carbon Dioxide 25 Anion Gap 7 L BUN 45 H Creatinine 1.4 H Creat Clearance w eGFR 49.68 Random Glucose 97 Calcium 8.2 L Phosphorus 3.2 D Magnesium 2.9 H Total Bilirubin 0.6 AST 39 H ALT 79 H D Alkaline Phosphatase 94 Total Protein 5.9 L Albumin 3.1 L Active Medications Generic Name Dose Route Start Last Admin Trade Name Freq PRN Reason Stop Dose Admin Carbidopa/Levodopa 1 combo 04/16/17 17:00 04/26/17 07:17 Sinemet *Cr* 50/200 - PO 1 combo 0700,1200,1700 SIENA Administration Diazepam 2.5 mg 04/24/17 10:25 04/25/17 21:14 Valium - PO 2.5 mg Q6HPO PRN Administration LOWER BACK PAIN Docusate Sodium 100 mg 04/18/17 14:21 04/22/17 09:47 Colace - PO 100 mg Q8H PRN Administration CONSTIPATION Ferrous Sulfate 325 mg 04/21/17 08:00 04/26/17 09:55 Feosol - PO 325 mg BID@0800,1730 SIENA Administration Gabapentin 400 mg 04/18/17 22:00 04/26/17 07:17 Neurontin - PO 400 mg TID SIENA Administration Heparin Sodium (Porcine) 5,000 unit 04/21/17 14:00 04/26/17 07:17 Heparin - SQ 5,000 unit TID SIEAN Administration Sodium Chloride 1,000 mls @ 42 mls/hr 04/25/17 16:45 04/25/17 16:45 1/2 Normal Saline IV 42 mls/hr ASDIR SIENA Administration Metoprolol Tartrate 50 mg 04/17/17 14:00 04/26/17 07:17 Lopressor - PO 50 mg TID SIENA Administration Multivitamins/Minerals/Vitamin C 1 tab 04/24/17 11:00 04/26/17 09:55 Tab-A-Vit - PO 1 tab DAILY SIENA Administration Ondansetron HCl 4 mg 04/16/17 16:18 Zofran Injection IVPUSH Q6H PRN NAUSEA AND/OR VOMITING Oxycodone HCl 10 mg 04/23/17 09:15 04/25/17 21:14 Roxicodone - PO 10 mg Q6H PRN Administration Polyethylene Glycol 17 gm 04/17/17 10:00 04/26/17 09:57 Miralax (For Daily Use) - PO 17 gm DAILY [facility]IENA Administration Pramipexole Dihydrochloride 0.5 mg 04/16/17 17:00 04/26/17 07:17 Mirapex - PO 0.5 mg 0700,1200,1700 [facility]IENA Administration Pramipexole Dihydrochloride 0.5 mg 04/16/17 22:00 04/25/17 21:14 Mirapex - PO 0.5 mg HS SIENA Administration Senna 1 tab 04/23/17 10:15 04/26/17 09:55 Senna - PO 1 tab BID SIENA Administration ASSESSMENT/PLAN: Patient is a 71 year old male with a past medical history of hypertension, hyperlipidemia, paroxysmal a.fib, pulmonary HTN, COPD, depression, anxiety, CKD stage 3, chronic back and b/l leg pain admitted on 04/11/17 with worsening back and lower extremity pain, s/p laminectomy w/ fusion T12-S2 04/13. His CRUZ drain was removed on 04/23/2017. Neuro: Acute on chronic b/l lower extremity pain - acute A/P: Patient is s/p laminectomy with fusion T12-S2, repair pseudo menigoceal on 04/13. S/P CRUZ drain removed Pain is not resolved, but patient appears to be oversedated on my exam Will decrease his active pain medications as follows: oxycodone decreased fom 10mg to 5mg q6 as needed Decrease Neurontin slowly to 300mg TID from 400mg TID Valium decreased to q8 hours instead of q6 hours Parkinson's disease - chronic a/p: On Sinemet Cr 25/100 TID, on Pramipexole po qid PT Hematology: Acute blood loss anemia - low hmg/hct but stable A/P: On Ferrous sulfate BID Monitor CBC Leukocytosis - resolved A/P: No fevers, WBC now stable Urine/blood cultures pending Renal: Chronic Kidney disease - improving/close to baseline of 1.1 A/P: On IVF, continue same Creatinine 1.4 UTI - now resolved A/P: s/p Vanco, s/p antibiotics Cardiology: Hypertension - chronic Continue cardiac meds: metoprolol 50mg TID Monitor BP Cardiology following Paroxysmal a.fib - chronic A/P: On Metoprolol, on no anticoagulation: pt has refused AC as per notes in chart F.E.N. Fluids: 1/2 NS @ 42cc/hr Electrolytes: monitor with BMP: hypermagnesium @2.9, slight decrease from 3.1 yesterday Nutrition: low sodium Prophylaxis: DVT: Heparin 5000u sq PT: Protonix for GI protection Disposition: SNF likely Friday. Full code. Visit type - Emergency Visit Emergency Visit: Yes ED Registration Date: 04/11/17 Care time: The patient presented to the Emergency Department on the above date and was hospitalized for further evaluation of their emergent condition. - New Patient This patient is new to me today: Yes Date on this admission: 04/26/17 - Critical Care Critical Care patient: No - Discharge Referral Referred to [facility] Med P.C.: No
[2017-04-26] MEDS: oxyCODONE HCL 5 MG TABLET PO PRN ×3 (12:15→23:48)
--- NOTE | 2017-04-26 13:12 | PN ---
Progress Note, Physician History of Present Illness: stable pain - Current Medication List Current Medications: Active Medications Carbidopa/Levodopa (Sinemet *Cr* 50/200 -) 1 combo PO 0700,1200,1700 [facility] Last Admin: 04/26/17 11:58 Dose: 1 combo Diazepam (Valium -) 2.5 mg PO Q6HPO PRN PRN Reason: LOWER BACK PAIN Last Admin: 04/25/17 21:14 Dose: 2.5 mg Docusate Sodium (Colace -) 100 mg PO Q8H PRN PRN Reason: CONSTIPATION Last Admin: 04/22/17 09:47 Dose: 100 mg Ferrous Sulfate (Feosol -) 325 mg PO BID@0800,1730 [facility] Last Admin: 04/26/17 09:55 Dose: 325 mg Gabapentin (Neurontin -) 400 mg PO TID [facility] Last Admin: 04/26/17 07:17 Dose: 400 mg Heparin Sodium (Porcine) (Heparin -) 5,000 unit SQ TID [facility] Last Admin: 04/26/17 07:17 Dose: 5,000 unit Sodium Chloride (1/2 Normal Saline) 1,000 mls @ 42 mls/hr IV ASDIR [facility] Last Admin: 04/25/17 16:45 Dose: 42 mls/hr Metoprolol Tartrate (Lopressor -) 50 mg PO TID [facility] Last Admin: 04/26/17 07:17 Dose: 50 mg Multivitamins/Minerals/Vitamin C (Tab-A-Vit -) 1 tab PO DAILY [facility] Last Admin: 04/26/17 09:55 Dose: 1 tab Ondansetron HCl (Zofran Injection) 4 mg IVPUSH Q6H PRN PRN Reason: NAUSEA AND/OR VOMITING Oxycodone HCl (Roxicodone -) 10 mg PO Q6H PRN Last Admin: 04/25/17 21:14 Dose: 10 mg Polyethylene Glycol (Miralax (For Daily Use) -) 17 gm PO DAILY [facility] Last Admin: 04/26/17 09:57 Dose: 17 gm Pramipexole Dihydrochloride (Mirapex -) 0.5 mg PO 0700,1200,1700 [facility] Last Admin: 04/26/17 11:57 Dose: 0.5 mg Pramipexole Dihydrochloride (Mirapex -) 0.5 mg PO HS [facility] Last Admin: 04/25/17 21:14 Dose: 0.5 mg Senna (Senna -) 1 tab PO BID [facility] Last Admin: 04/26/17 09:55 Dose: 1 tab - Objective Vital Signs: Vital Signs Temperature 97.8 F 04/26/17 10:00 Pulse Rate 80 04/26/17 10:32 Respiratory Rate 20 04/26/17 10:00 Blood Pressure 129/67 04/26/17 10:00 O2 Sat by Pulse Oximetry (%) 97 04/26/17 10:32 Constitutional: Yes: Calm, Mild Distress Cardiovascular: Yes: Regular Rate and Rhythm Respiratory: Yes: Regular, CTA Bilaterally Gastrointestinal: Yes: Normal Bowel Sounds, Soft Musculoskeletal: Yes: Other Extremities: Yes: WNL Wound/Incision: Yes: Dressing Dry and Intact Neurological: Yes: Alert Psychiatric: Yes: Alert Labs: CBC, BMP 04/26/17 07:15 04/26/17 07:15 INR, PTT INR 1.00 (0.82-1.09) 04/13/17 06:00 Assessment/Plan Problem List - Problems (1) Chronic obstructive pulmonary disease (COPD) Code(s): J44.9 - CHRONIC OBSTRUCTIVE PULMONARY DISEASE, UNSPECIFIED (2) Lower extremity pain Code(s): M79.606 - PAIN IN LEG, UNSPECIFIED Qualifiers: Laterality: bilateral Qualified Code(s): M79.604 - Pain in right leg (3) Carotid stenosis Code(s): I65.29 - OCCLUSION AND STENOSIS OF UNSPECIFIED CAROTID ARTERY (4) HTN (hypertension) Code(s): I10 - ESSENTIAL (PRIMARY) HYPERTENSION Qualifiers: Hypertension type: essential hypertension Qualified Code(s): I10 - Essential (primary) hypertension (5) Afib Code(s): I48.91 - UNSPECIFIED ATRIAL FIBRILLATION (6) CKD (chronic kidney disease) stage 3, GFR 30-59 ml/min Code(s): N18.3 - CHRONIC KIDNEY DISEASE, STAGE 3 (MODERATE) (7) BPH (benign prostatic hyperplasia) Code(s): N40.0 - BENIGN PROSTATIC HYPERPLASIA WITHOUT LOWER URINRY TRACT SYMP (8) Back pain Code(s): M54.9 - DORSALGIA, UNSPECIFIED Qualifiers: Back pain location: low back pain Chronicity: chronic Back pain laterality: bilateral Sciatica presence: unspecified whether sciatica present Qualified Code(s): M54.5 - Low back pain uti wbc has normalized plan close monitoring physiotherapy continue monitoring rest as per primary team await for all cx reports
[2017-04-26] MEDS: LIDOCAINE 5% TOPICAL PATCH TP SCH (15:47)
[2017-04-26] MEDS: SODIUM CHLORIDE 0.45% 1,000 ML IV SCH (17:00)
[2017-04-26] MEDS: LIDOCAINE PATCH REMOVAL MC SCH (22:22)
[2017-04-27] MEDS: oxyCODONE HCL 5 MG TABLET PO PRN ×3 (06:34→22:11)
[2017-04-27] MEDS: HEPARIN NA (PORCINE) 5,000 UNITS/ML 1ML VIAL SQ SCH ×3 (06:34→21:23)
[2017-04-27] MEDS: METOPROLOL TARTRATE 50 MG TABLET (FP) PO SCH ×3 (06:35→21:26)
[2017-04-27] MEDS: PRAMIPEXOLE DIHYDROCHLORIDE 0.5 MG TABLET PO SCH ×4 (06:35→21:24)
[2017-04-27] MEDS: GABAPENTIN 400 MG CAPSULE (FP) PO SCH (06:35)
[2017-04-27 07:35] LABS: BASOPHIL 0.7 % (0-2.0); EOSINOPHIL 0.2 % (0-4.5); MCH 32.5 pg (25.7-33.7); MCHC 33.2 g/dl (32.0-35.9); MEAN PLT VOLUME 8.4 fl (7.5-11.1); NEUTROPHILS 72.5 % (42.8-82.8); PLATELET COUNT 486 K/MM3 (134-434); RDW 15.5 % (11.9-15.9)
[2017-04-27 07:58] LABS: ALBUMIN 3.2 g/dl (3.4-5.0); ANION GAP 8 (8-16); CALCIUM 8.4 mg/dL (8.5-10.1); CO2 23 mmol/L (21-32); CREATININE 1.2 mg/dL (0.7-1.3); GLUCOSE,RANDOM 80 mg/dL (74-106); MAGNESIUM 2.8 mg/dL (1.8-2.4); SGOT/AST 46 U/L (15-37); SGPT/ALT 102 U/L (12-78)
[2017-04-27 08:00] LABS: ALK PHOS 103 U/L (45-117); BILIRUBIN,TOTAL 0.5 mg/dL (0.2-1.0)
[2017-04-27] MEDS ORDERED: PT OWN MED DRAWER 7, Y5N ONE ×5 (10:18→17:47)
[2017-04-27] MEDS: LIDOCAINE 5% TOPICAL PATCH TP SCH (10:24)
[2017-04-27] MEDS: FERROUS SO4 325 MG TABLET (FP) PO SCH ×2 (10:24→17:07)
[2017-04-27] MEDS: MULTIVITAMINS (DAILY MVI) TABLET (FP) PO SCH (10:25)
[2017-04-27] MEDS: SENNOSIDES 8.6MG TABLET (FP) PO SCH ×2 (10:25→21:26)
--- NOTE | 2017-04-27 11:54 | PN ---
Physical Exam: SUBJECTIVE: Patient seen and examined at the bedside. Patient still c/o of leg and back pain. OBJECTIVE: Hypermagnesium levels improving Appeared oversedated yesterday and his pain meds have been slowly titrated down Today has slurred speech, will order head CT Vital Signs Period Temp Pulse Resp BP Sys/Suazo Pulse Ox Last 24 Hr 97 F-98.8 F 65-81 20-20 95-149/50-78 97-97 GENERAL: The patient is awake, slow to respond, lethargic, still appears to be oversedated, but slightly improved HEAD: Normal with no signs of trauma. EYES: PERRL, extraocular movements intact, sclera anicteric, conjunctiva clear. No ptosis. ENT: Ears normal, nares patent, oropharynx clear without exudates, moist mucous membranes. NECK: Trachea midline, full range of motion, supple. ABDOMEN: Soft, nontender, nondistended, normoactive bowel sounds, no guarding, no rebound, no hepatosplenomegaly, no masses. EXTREMITIES: 2+ pulses, warm, well-perfused, no edema. NEUROLOGICAL: slurred speech, gait not observed. PSYCH: Normal mood, normal affect. Laboratory Results - last 24 hr 04/27/17 04/27/17 06:30 06:30 WBC 8.0 RBC 3.23 L Hgb 10.5 L Hct 31.7 L MCV 98.0 H MCH 32.5 MCHC 33.2 RDW 15.5 Plt Count 486 H MPV 8.4 Neutrophils % 72.5 Lymphocytes % 20.8 D Monocytes % 5.8 Eosinophils % 0.2 D Basophils % 0.7 Sodium 139 Potassium 5.0 Chloride 108 H Carbon Dioxide 23 Anion Gap 8 BUN 39 H Creatinine 1.2 Creat Clearance w eGFR 59.35 Random Glucose 80 Calcium 8.4 L Magnesium 2.8 H Total Bilirubin 0.5 AST 46 H ALT 102 H D Alkaline Phosphatase 103 Total Protein 6.0 L Albumin 3.2 L Active Medications Generic Name Dose Route Start Last Admin Trade Name Freq PRN Reason Stop Dose Admin Carbidopa/Levodopa 1 combo 04/16/17 17:00 04/27/17 07:14 Sinemet *Cr* 50/200 - PO 1 combo 0700,1200,1700 [facility] Administration Diazepam 2.5 mg 04/26/17 15:21 Valium - PO Q8H PRN LOWER BACK PAIN Docusate Sodium 100 mg 04/18/17 14:21 04/22/17 09:47 Colace - PO 100 mg Q8H PRN Administration CONSTIPATION Ferrous Sulfate 325 mg 04/21/17 08:00 04/27/17 10:24 Feosol - PO 325 mg BID@0800,1730 SIENA Administration Gabapentin 300 mg 04/26/17 15:14 04/27/17 06:35 Neurontin - PO 300 mg TID SIENA Administration Heparin Sodium (Porcine) 5,000 unit 04/21/17 14:00 04/27/17 06:34 Heparin - SQ 5,000 unit TID SIENA Administration Sodium Chloride 1,000 mls @ 42 mls/hr 04/25/17 16:45 04/26/17 17:00 1/2 Normal Saline IV 42 mls/hr ASDIR [facility]IENA Administration Lidocaine 1 patch 04/26/17 15:45 04/27/17 10:24 Lidoderm Patch - TP 1 patch DAILY SIENA Administration Metoprolol Tartrate 50 mg 04/17/17 14:00 04/27/17 06:35 Lopressor - PO 50 mg TID SIENA Administration Miscellaneous 1 each 04/26/17 22:00 04/26/17 22:22 Lidoderm Patch Removal MC Not Given DAILY@2200 [facility] Multivitamins/Minerals/Vitamin C 1 tab 04/24/17 11:00 04/27/17 10:25 Tab-A-Vit - PO 1 tab DAILY [facility]NA Administration Oxycodone HCl 5 mg 04/26/17 15:12 04/27/17 06:34 Roxicodone - PO 5 mg Q6H PRN Administration BACK PAIN Polyethylene Glycol 17 gm 04/17/17 10:00 04/26/17 09:57 Miralax (For Daily Use) - PO 17 gm DAILY [facility] Administration Pramipexole Dihydrochloride 0.5 mg 04/16/17 17:00 04/27/17 06:35 Mirapex - PO 0.5 mg 0700,1200,1700 [facility] Administration Pramipexole Dihydrochloride 0.5 mg 04/16/17 22:00 04/26/17 22:23 Mirapex - PO 0.5 mg HS [facility]IENA Administration Senna 1 tab 04/23/17 10:15 04/27/17 10:25 Senna - PO 1 tab BID [facility]IENA Administration ASSESSMENT/PLAN: Patient is a 71 year old male with a past medical history of hypertension, hyperlipidemia, paroxysmal a.fib, pulmonary HTN, COPD, depression, anxiety, CKD stage 3, chronic back and b/l leg pain admitted on 04/11/17 with worsening back and lower extremity pain, s/p laminectomy w/ fusion T12-S2 04/13. His CRUZ drain was removed on 04/23/2017. Imaging: CT of head/without contrast 04/27/2017: (1) No significant change from 04/20/[address], no ICH, mass effect or midline shift (2) No evidence of acute transcortical infarction (3) generalized age related volume loss with stable ventriculomegaly, likely ex vacuo. However, givin the bowing of the corpus callosum, an early, mild communicating hydrocephalus is not entirely excluded. Neuro: Acute on chronic b/l lower extremity pain A/P: Patient is s/p laminectomy with fusion T12-S2, repair pseudo menigoceal on 04/13. S/P CRUZ drain removed His pain medications were decreased yesterday secondary to lethargy and he appeared to be oversedated Today having slurred speech CT scan of head shows no significant change from previous study but questionable mild communicating hydrocephalus cannot be excluded. Will consult neurologist Pain meds were decreased yesterday secondary to lethargy/oversedation: oxycodone decreased fom 10mg to 5mg q6 as needed Decreased Neurontin to 300mg TID from 400mg TID Valium decreased to q8 hours instead of q6 hours Parkinson's disease - chronic a/p: On Sinemet Cr 25/100 TID, on Pramipexole po qid PT evaluation ongoing Hematology: Acute blood loss anemia - low hmg/hct but stable A/P: On Ferrous sulfate BID Monitor CBC Leukocytosis - resolved A/P: No fevers, WBC now stable Urine/blood cultures pending Renal: Chronic Kidney disease - improving/close to baseline of 1.1 A/P: On IVF, continue same Creatinine 1.2 UTI - now resolved A/P: s/p Vanco, s/p antibiotics Cardiology: Hypertension - chronic Continue cardiac meds: metoprolol 50mg TID Monitor BP Cardiology following Paroxysmal a.fib - chronic A/P: On Metoprolol, on no anticoagulation: pt has refused AC as per notes in chart F.E.N. Fluids: 1/2 NS @ 42cc/hr Electrolytes: monitor with BMP: hypermagnesium @2.8 Nutrition: low sodium Prophylaxis: DVT: Heparin 5000u sq PT: Protonix for GI protection Disposition: Full code. Visit type - Emergency Visit Emergency Visit: Yes ED Registration Date: 04/11/17 Care time: The patient presented to the Emergency Department on the above date and was hospitalized for further evaluation of their emergent condition. - New Patient This patient is new to me today: No - Critical Care Critical Care patient: No - Discharge Referral Referred to [id number] Med P.C.: No
--- NOTE | 2017-04-27 12:08 | PN ---
Progress Note, Physician History of Present Illness: confusion,lethargy otherwise no new events - Current Medication List Current Medications: Active Medications Carbidopa/Levodopa (Sinemet *Cr* 50/200 -) 1 combo PO 0700,1200,1700 [facility] Last Admin: 04/27/17 07:14 Dose: 1 combo Diazepam (Valium -) 2.5 mg PO Q8H PRN PRN Reason: LOWER BACK PAIN Docusate Sodium (Colace -) 100 mg PO Q8H PRN PRN Reason: CONSTIPATION Last Admin: 04/22/17 09:47 Dose: 100 mg Ferrous Sulfate (Feosol -) 325 mg PO BID@0800,1730 [facility] Last Admin: 04/27/17 10:24 Dose: 325 mg Gabapentin (Neurontin -) 300 mg PO TID [facility] Last Admin: 04/27/17 06:35 Dose: 300 mg Heparin Sodium (Porcine) (Heparin -) 5,000 unit SQ TID [facility] Last Admin: 04/27/17 06:34 Dose: 5,000 unit Sodium Chloride (1/2 Normal Saline) 1,000 mls @ 42 mls/hr IV ASDIR [facility] Last Admin: 04/26/17 17:00 Dose: 42 mls/hr Lidocaine (Lidoderm Patch -) 1 patch TP DAILY [facility] Last Admin: 04/27/17 10:24 Dose: 1 patch Metoprolol Tartrate (Lopressor -) 50 mg PO TID [facility] Last Admin: 04/27/17 06:35 Dose: 50 mg Miscellaneous (Lidoderm Patch Removal) 1 each MC DAILY@2200 [facility] Last Admin: 04/26/17 22:22 Dose: Not Given Multivitamins/Minerals/Vitamin C (Tab-A-Vit -) 1 tab PO DAILY [facility] Last Admin: 04/27/17 10:25 Dose: 1 tab Oxycodone HCl (Roxicodone -) 5 mg PO Q6H PRN PRN Reason: BACK PAIN Last Admin: 04/27/17 06:34 Dose: 5 mg Polyethylene Glycol (Miralax (For Daily Use) -) 17 gm PO DAILY [facility] Last Admin: 04/26/17 09:57 Dose: 17 gm Pramipexole Dihydrochloride (Mirapex -) 0.5 mg PO 0700,1200,1700 [facility] Last Admin: 04/27/17 06:35 Dose: 0.5 mg Pramipexole Dihydrochloride (Mirapex -) 0.5 mg PO HS [facility] Last Admin: 04/26/17 22:23 Dose: 0.5 mg Senna (Senna -) 1 tab PO BID [facility] Last Admin: 04/27/17 10:25 Dose: 1 tab - Objective Vital Signs: Vital Signs Temperature 97 F L 04/27/17 09:00 Pulse Rate 73 04/27/17 09:00 Respiratory Rate 20 04/27/17 09:00 Blood Pressure 95/50 04/27/17 09:00 O2 Sat by Pulse Oximetry (%) 97 04/27/17 09:00 Constitutional: Yes: Calm, Mild Distress Cardiovascular: Yes: Regular Rate and Rhythm Respiratory: Yes: Regular, CTA Bilaterally Gastrointestinal: Yes: Normal Bowel Sounds, Soft Neurological: Yes: Confusion, Lethargy Psychiatric: Yes: Other Labs: CBC, BMP 04/27/17 06:30 04/27/17 06:30 INR, PTT INR 1.00 (0.82-1.09) 04/13/17 06:00 Assessment/Plan Problem List - Problems (1) Chronic obstructive pulmonary disease (COPD) Code(s): J44.9 - CHRONIC OBSTRUCTIVE PULMONARY DISEASE, UNSPECIFIED (2) Lower extremity pain Code(s): M79.606 - PAIN IN LEG, UNSPECIFIED Qualifiers: Laterality: bilateral Qualified Code(s): M79.604 - Pain in right leg (3) Carotid stenosis Code(s): I65.29 - OCCLUSION AND STENOSIS OF UNSPECIFIED CAROTID ARTERY (4) HTN (hypertension) Code(s): I10 - ESSENTIAL (PRIMARY) HYPERTENSION Qualifiers: Hypertension type: essential hypertension Qualified Code(s): I10 - Essential (primary) hypertension (5) Afib Code(s): I48.91 - UNSPECIFIED ATRIAL FIBRILLATION (6) CKD (chronic kidney disease) stage 3, GFR 30-59 ml/min Code(s): N18.3 - CHRONIC KIDNEY DISEASE, STAGE 3 (MODERATE) (7) BPH (benign prostatic hyperplasia) Code(s): N40.0 - BENIGN PROSTATIC HYPERPLASIA WITHOUT LOWER URINRY TRACT SYMP (8) Back pain Code(s): M54.9 - DORSALGIA, UNSPECIFIED Qualifiers: Back pain location: low back pain Chronicity: chronic Back pain laterality: bilateral Sciatica presence: unspecified whether sciatica present Qualified Code(s): M54.5 - Low back pain uti wbc has normalized plan continue monitoring rest as per primary team patient going to get ct scan of the head
[2017-04-27] MEDS: POLYETHYLENE GLYCOL 3350 119 GM BTL PO SCH (14:53)
[2017-04-27] MEDS: GABAPENTIN 300 MG CAPSULE (FP) PO SCH ×2 (15:05→21:26)
[2017-04-27] MEDS: SODIUM CHLORIDE 0.45% 1,000 ML IV SCH (21:23)
[2017-04-27] MEDS: LIDOCAINE PATCH REMOVAL MC SCH (21:23)
[2017-04-28] MEDS: SODIUM CHLORIDE 0.45% 1,000 ML IV SCH ×2 (02:30→16:57)
[2017-04-28] MEDS: oxyCODONE HCL 5 MG TABLET PO PRN ×3 (03:50→18:03)
[2017-04-28] MEDS: PRAMIPEXOLE DIHYDROCHLORIDE 0.5 MG TABLET PO SCH ×4 (06:05→21:56)
[2017-04-28] MEDS: METOPROLOL TARTRATE 50 MG TABLET (FP) PO SCH ×3 (06:05→21:55)
[2017-04-28] MEDS: HEPARIN NA (PORCINE) 5,000 UNITS/ML 1ML VIAL SQ SCH ×2 (06:05→13:50)
[2017-04-28] MEDS: GABAPENTIN 300 MG CAPSULE (FP) PO SCH ×3 (06:06→21:55)
[2017-04-28 07:50] LABS: BASOPHIL 0.5 % (0-2.0); EOSINOPHIL 0.3 % (0-4.5); MCH 32.3 pg (25.7-33.7); MCHC 32.8 g/dl (32.0-35.9); MEAN CELL VOLUME 98.5 fl (80-96); MEAN PLT VOLUME 8.2 fl (7.5-11.1); NEUTROPHILS 76.6 % (42.8-82.8); PLATELET COUNT 469 K/MM3 (134-434); RDW 15.4 % (11.9-15.9); WHITE BLOOD COUNT 7.5 K/mm3 (4.0-10.0)
[2017-04-28] MEDS: FERROUS SO4 325 MG TABLET (FP) PO SCH ×2 (08:20→16:34)
[2017-04-28 08:53] LABS: ALBUMIN 3.2 g/dl (3.4-5.0); ALK PHOS 113 U/L (45-117); ANION GAP 11 (8-16); BILIRUBIN,TOTAL 0.5 mg/dL (0.2-1.0); CALCIUM 8.4 mg/dL (8.5-10.1); CO2 21 mmol/L (21-32); CREATININE 1.1 mg/dL (0.7-1.3); GLUCOSE,RANDOM 80 mg/dL (74-106); MAGNESIUM 2.6 mg/dL (1.8-2.4); SGOT/AST 28 U/L (15-37); SGPT/ALT 53 U/L (12-78); TOT PROT 5.8 g/dl (6.4-8.2)
[2017-04-28] MEDS: LIDOCAINE 5% TOPICAL PATCH TP SCH (09:34)
[2017-04-28] MEDS: MULTIVITAMINS (DAILY MVI) TABLET (FP) PO SCH (09:34)
[2017-04-28] MEDS: SENNOSIDES 8.6MG TABLET (FP) PO SCH ×2 (09:34→21:55)
[2017-04-28] MEDS: POLYETHYLENE GLYCOL 3350 119 GM BTL PO SCH (09:35)
--- NOTE | 2017-04-28 09:51 | PN ---
Progress Note (short form) - Note Progress Note: Resting in NAD. Mildly confused. No acute events overnight. Intake & Output 04/25/17 04/26/17 04/27/17 04/28/17 23:59 23:59 23:59 23:59 Intake Total 1078 2404 2086 704 Output Total 200 Balance 878 2404 2086 704 Last Vital Signs Temp Pulse Resp BP Pulse Ox 96.8 F L 61 20 136/76 97 04/28/17 09:21 04/28/17 09:21 04/28/17 09:21 04/28/17 09:21 04/27/17 21:00 Active Medications Carbidopa/Levodopa (Sinemet *Cr* 50/200 -) 1 combo PO 0700,1200,1700 [facility] Last Admin: 04/28/17 06:05 Dose: 1 combo Diazepam (Valium -) 2.5 mg PO Q8H PRN PRN Reason: LOWER BACK PAIN Docusate Sodium (Colace -) 100 mg PO Q8H PRN PRN Reason: CONSTIPATION Last Admin: 04/22/17 09:47 Dose: 100 mg Ferrous Sulfate (Feosol -) 325 mg PO BID@0800,1730 [facility] Last Admin: 04/28/17 08:20 Dose: 325 mg Gabapentin (Neurontin -) 300 mg PO TID [facility] Last Admin: 04/28/17 06:06 Dose: 300 mg Heparin Sodium (Porcine) (Heparin -) 5,000 unit SQ TID [facility] Last Admin: 04/28/17 06:05 Dose: 5,000 unit Sodium Chloride (1/2 Normal Saline) 1,000 mls @ 42 mls/hr IV ASDIR [facility] Last Admin: 04/28/17 02:30 Dose: 42 mls/hr Lidocaine (Lidoderm Patch -) 1 patch TP DAILY [facility] Last Admin: 04/28/17 09:34 Dose: 1 patch Metoprolol Tartrate (Lopressor -) 50 mg PO TID [facility] Last Admin: 04/28/17 06:05 Dose: 50 mg Miscellaneous (Lidoderm Patch Removal) 1 each MC DAILY@2200 [facility] Last Admin: 04/27/17 21:23 Dose: Not Given Multivitamins/Minerals/Vitamin C (Tab-A-Vit -) 1 tab PO DAILY [facility] Last Admin: 04/28/17 09:34 Dose: 1 tab Oxycodone HCl (Roxicodone -) 5 mg PO Q6H PRN PRN Reason: BACK PAIN Last Admin: 04/28/17 03:50 Dose: 5 mg Polyethylene Glycol (Miralax (For Daily Use) -) 17 gm PO DAILY [facility] Last Admin: 04/28/17 09:35 Dose: 17 gm Pramipexole Dihydrochloride (Mirapex -) 0.5 mg PO 0700,1200,1700 [facility] Last Admin: 04/28/17 06:05 Dose: 0.5 mg Pramipexole Dihydrochloride (Mirapex -) 0.5 mg PO HS [facility] Last Admin: 04/27/17 21:24 Dose: 0.5 mg Senna (Senna -) 1 tab PO BID [facility] Last Admin: 04/28/17 09:34 Dose: 1 tab Constitutional: Yes: NAD Eyes: Yes: WNL HENT: Yes: WNL Neck: Yes: WNL Cardiovascular: Yes: Regular Rate and Rhythm, S1, S2 Respiratory: Yes: Diminished Gastrointestinal: Yes: Normal Bowel Sounds, Soft Extremities: Yes: WNL Edema: No Labs: Laboratory Results - last 24 hr 04/28/17 04/28/17 06:00 06:00 WBC 7.5 RBC 3.35 L Hgb 10.8 L Hct 33.0 L MCV 98.5 H MCH 32.3 MCHC 32.8 RDW 15.4 Plt Count 469 H MPV 8.2 Neutrophils % 76.6 Lymphocytes % 15.8 D Monocytes % 6.8 Eosinophils % 0.3 Basophils % 0.5 Sodium 139 Potassium 4.7 Chloride 107 Carbon Dioxide 21 Anion Gap 11 BUN 34 H Creatinine 1.1 Creat Clearance w eGFR > 60 Random Glucose 80 Calcium 8.4 L Magnesium 2.6 H Total Bilirubin 0.5 AST 28 D ALT 53 D Alkaline Phosphatase 113 Total Protein 5.8 L Albumin 3.2 L Problem List - Problems (1) Chronic obstructive pulmonary disease (COPD) Code(s): J44.9 - CHRONIC OBSTRUCTIVE PULMONARY DISEASE, UNSPECIFIED (2) Lower extremity pain Code(s): M79.606 - PAIN IN LEG, UNSPECIFIED Qualifiers: Qualified Code(s): M79.604 - Pain in right leg (3) Carotid stenosis Code(s): I65.29 - OCCLUSION AND STENOSIS OF UNSPECIFIED CAROTID ARTERY (4) HTN (hypertension) Code(s): I10 - ESSENTIAL (PRIMARY) HYPERTENSION Qualifiers: Qualified Code(s): I10 - Essential (primary) hypertension (5) Afib Code(s): I48.91 - UNSPECIFIED ATRIAL FIBRILLATION (6) CKD (chronic kidney disease) stage 3, GFR 30-59 ml/min Code(s): N18.3 - CHRONIC KIDNEY DISEASE, STAGE 3 (MODERATE) (7) BPH (benign prostatic hyperplasia) Code(s): N40.0 - BENIGN PROSTATIC HYPERPLASIA WITHOUT LOWER URINRY TRACT SYMP (8) Back pain Code(s): M54.9 - DORSALGIA, UNSPECIFIED Qualifiers: Qualified Code(s): M54.5 - Low back pain Assessment/Plan IMP COPD STABLE PAF CHRONIC BACK PAIN S/P T12-S2 LAMINECTOMIES/DECOMPRESSION/FUSION HTN PULMONARY HTN CKD [employer] PRECAUTIONS INHALED BRONCHODILATORS PRN O2 PRN INCENTIVE SPIROMETERY IF ABLE PT Dr Yoo
[2017-04-28] MEDS ORDERED: PT OWN MED DRAWER 7, Y5N ONE ×7 (12:01→22:03)
--- NOTE | 2017-04-28 12:12 | PN ---
Progress Note, Physician History of Present Illness: patient stable pain main issue - Current Medication List Current Medications: Active Medications Carbidopa/Levodopa (Sinemet *Cr* 50/200 -) 1 combo PO 0700,1200,1700 [facility] Last Admin: 04/28/17 12:07 Dose: 1 combo Diazepam (Valium -) 2.5 mg PO Q8H PRN PRN Reason: LOWER BACK PAIN Docusate Sodium (Colace -) 100 mg PO Q8H PRN PRN Reason: CONSTIPATION Last Admin: 04/22/17 09:47 Dose: 100 mg Ferrous Sulfate (Feosol -) 325 mg PO BID@0800,1730 [facility] Last Admin: 04/28/17 08:20 Dose: 325 mg Gabapentin (Neurontin -) 300 mg PO TID [facility] Last Admin: 04/28/17 06:06 Dose: 300 mg Heparin Sodium (Porcine) (Heparin -) 5,000 unit SQ TID [facility] Last Admin: 04/28/17 06:05 Dose: 5,000 unit Sodium Chloride (1/2 Normal Saline) 1,000 mls @ 42 mls/hr IV ASDIR [facility] Last Admin: 04/28/17 02:30 Dose: 42 mls/hr Lidocaine (Lidoderm Patch -) 1 patch TP DAILY [facility] Last Admin: 04/28/17 09:34 Dose: 1 patch Metoprolol Tartrate (Lopressor -) 50 mg PO TID [facility] Last Admin: 04/28/17 06:05 Dose: 50 mg Miscellaneous (Lidoderm Patch Removal) 1 each MC DAILY@2200 [facility] Last Admin: 04/27/17 21:23 Dose: Not Given Multivitamins/Minerals/Vitamin C (Tab-A-Vit -) 1 tab PO DAILY [facility] Last Admin: 04/28/17 09:34 Dose: 1 tab Oxycodone HCl (Roxicodone -) 5 mg PO Q6H PRN PRN Reason: BACK PAIN Last Admin: 04/28/17 12:07 Dose: 5 mg Polyethylene Glycol (Miralax (For Daily Use) -) 17 gm PO DAILY [facility] Last Admin: 04/28/17 09:35 Dose: 17 gm Pramipexole Dihydrochloride (Mirapex -) 0.5 mg PO 0700,1200,1700 [facility] Last Admin: 04/28/17 12:07 Dose: 0.5 mg Pramipexole Dihydrochloride (Mirapex -) 0.5 mg PO HS [facility] Last Admin: 04/27/17 21:24 Dose: 0.5 mg Senna (Senna -) 1 tab PO BID [facility] Last Admin: 04/28/17 09:34 Dose: 1 tab - Objective Vital Signs: Vital Signs Temperature 96.8 F L 04/28/17 09:21 Pulse Rate 61 04/28/17 09:21 Respiratory Rate 20 04/28/17 09:21 Blood Pressure 136/76 04/28/17 09:21 O2 Sat by Pulse Oximetry (%) 97 04/27/17 21:00 Constitutional: Yes: No Distress, Calm Cardiovascular: Yes: Regular Rate and Rhythm Respiratory: Yes: Regular, CTA Bilaterally Gastrointestinal: Yes: Normal Bowel Sounds, Soft Musculoskeletal: Yes: Back Pain Extremities: Yes: WNL Wound/Incision: Yes: Clean/Dry Neurological: Yes: Alert, Oriented Labs: CBC, BMP 04/28/17 06:00 04/28/17 06:00 INR, PTT INR 1.00 (0.82-1.09) 04/13/17 06:00 Assessment/Plan Problem List - Problems (1) Chronic obstructive pulmonary disease (COPD) Code(s): J44.9 - CHRONIC OBSTRUCTIVE PULMONARY DISEASE, UNSPECIFIED (2) Lower extremity pain Code(s): M79.606 - PAIN IN LEG, UNSPECIFIED Qualifiers: Laterality: bilateral Qualified Code(s): M79.604 - Pain in right leg (3) Carotid stenosis Code(s): I65.29 - OCCLUSION AND STENOSIS OF UNSPECIFIED CAROTID ARTERY (4) HTN (hypertension) Code(s): I10 - ESSENTIAL (PRIMARY) HYPERTENSION Qualifiers: Hypertension type: essential hypertension Qualified Code(s): I10 - Essential (primary) hypertension (5) Afib Code(s): I48.91 - UNSPECIFIED ATRIAL FIBRILLATION (6) CKD (chronic kidney disease) stage 3, GFR 30-59 ml/min Code(s): N18.3 - CHRONIC KIDNEY DISEASE, STAGE 3 (MODERATE) (7) BPH (benign prostatic hyperplasia) Code(s): N40.0 - BENIGN PROSTATIC HYPERPLASIA WITHOUT LOWER URINRY TRACT SYMP (8) Back pain Code(s): M54.9 - DORSALGIA, UNSPECIFIED Qualifiers: Back pain location: low back pain Chronicity: chronic Back pain laterality: bilateral Sciatica presence: unspecified whether sciatica present Qualified Code(s): M54.5 - Low back pain uti wbc has normalized plan continue monitoring rest as per primary team
[2017-04-28] MEDS: GABAPENTIN 400 MG CAPSULE (FP) PO SCH (13:01)
--- NOTE | 2017-04-28 14:59 | PN ---
Progress Note (short form) - Note Progress Note: Patient is resting in bed in no obvious distress. He is somewhat somnolent, yet is able to answer questions and respond to examiner. Incision has been clean, dry and intact. Plan for skin clip removal in AM with fresh Aquacel dressing. Had a long discussion with patient's sister and discussed his course of care and the challenges of controlling his pain while avoiding over medicaton and respiratory depression. Patient is reluctant to participate in Physical Therapy although it appears Dr. Mondragon's recent efforts at controlling his pain have been helpful. Patient is ready for transfer to subacute rehabilitation where hopefully he will improve as his incisional pain abates and his narcotic requirement diminishes.
--- NOTE | 2017-04-28 15:10 | PN ---
Progress Note, Physician Chief Complaint: events last night noted. \s/p fall History of Present Illness: 71 year old man h/o HTN, HLD, AFib, LBBB, COPD, chronic back and leg pain on multiple medications, h/o recurrent syncope admitted with severe acute on chronic lower back and leg pain. Pt was seen by neurology and neurosurgery yesterday. Neurology felt surgery would not be helpful but neurosurgery felt that surgery could offer some relief of his pain and disability and thus he is planned for surgical intervention. Pt was seen and examined today in nad. No overnight events. no new complaints. He states that his back and leg pain was so severe that he was significantly disabled at home and it was not responsive to medications. He denies having any chest pain, sob, palpitations. No pnd, orthopnea, or LE edema. No recent recurrent syncope or near syncope. - Current Medication List Current Medications: Active Medications Carbidopa/Levodopa (Sinemet *Cr* 50/200 -) 1 combo PO 0700,1200,1700 [facility] Last Admin: 04/28/17 12:07 Dose: 1 combo Diazepam (Valium -) 2.5 mg PO Q8H PRN PRN Reason: LOWER BACK PAIN Docusate Sodium (Colace -) 100 mg PO Q8H PRN PRN Reason: CONSTIPATION Last Admin: 04/22/17 09:47 Dose: 100 mg Ferrous Sulfate (Feosol -) 325 mg PO BID@0800,1730 [facility] Last Admin: 04/28/17 08:20 Dose: 325 mg Gabapentin (Neurontin -) 300 mg PO TID [facility] Last Admin: 04/28/17 13:49 Dose: 300 mg Sodium Chloride (1/2 Normal Saline) 1,000 mls @ 42 mls/hr IV ASDIR [facility] Last Admin: 04/28/17 02:30 Dose: 42 mls/hr Lidocaine (Lidoderm Patch -) 1 patch TP DAILY [facility] Last Admin: 04/28/17 09:34 Dose: 1 patch Metoprolol Tartrate (Lopressor -) 50 mg PO TID [facility] Last Admin: 04/28/17 13:49 Dose: 50 mg Miscellaneous (Lidoderm Patch Removal) 1 each MC DAILY@2200 [facility] Last Admin: 04/27/17 21:23 Dose: Not Given Multivitamins/Minerals/Vitamin C (Tab-A-Vit -) 1 tab PO DAILY [facility] Last Admin: 04/28/17 09:34 Dose: 1 tab Oxycodone HCl (Roxicodone -) 5 mg PO Q6H PRN PRN Reason: BACK PAIN Last Admin: 04/28/17 12:07 Dose: 5 mg Polyethylene Glycol (Miralax (For Daily Use) -) 17 gm PO DAILY [facility] Last Admin: 04/28/17 09:35 Dose: 17 gm Pramipexole Dihydrochloride (Mirapex -) 0.5 mg PO 0700,1200,1700 [facility] Last Admin: 04/28/17 12:07 Dose: 0.5 mg Pramipexole Dihydrochloride (Mirapex -) 0.5 mg PO HS [facility] Last Admin: 04/27/17 21:24 Dose: 0.5 mg Senna (Senna -) 1 tab PO BID [facility] Last Admin: 04/28/17 09:34 Dose: 1 tab - Objective Vital Signs: Vital Signs Temperature 96.8 F L 04/28/17 09:21 Pulse Rate 61 04/28/17 09:21 Respiratory Rate 20 04/28/17 09:21 Blood Pressure 136/76 04/28/17 09:21 O2 Sat by Pulse Oximetry (%) 97 04/27/17 21:00 Eyes: Yes: WNL, Conjunctiva Clear, EOM Intact HENT: Yes: WNL, Atraumatic, Normocephalic Neck: Yes: WNL, Supple, Trachea Midline Cardiovascular: Yes: WNL, Regular Rate and Rhythm Respiratory: Yes: WNL, Regular, CTA Bilaterally Gastrointestinal: Yes: WNL, Normal Bowel Sounds Genitourinary: Yes: WNL Musculoskeletal: Yes: WNL Extremities: Yes: WNL Edema: No Integumentary: Yes: WNL Neurological: Yes: WNL, Alert, Oriented ...Motor Strength: WNL Psychiatric: Yes: WNL Labs: CBC, BMP 04/28/17 06:00 04/28/17 06:00 INR, PTT INR 1.00 (0.82-1.09) 04/13/17 06:00 Assessment/Plan - Assessment/Plan 71 year old man with a history of HTN, LBBB, Pafib, CKD, chronic back pain a/w worsening LE and back pain s/p laminectomy. Pafib-HR is adequately controlled -appears to be brief episodes of PSVT -cont metoprolol -maintain electrolytes -pt has refused AC as per notes in chart -ok to dc tele HTN-variable but overall adequately controlled -cont metoprolol Chronic systolic chf -euvolemic -monitor
--- NOTE | 2017-04-28 16:34 | PN ---
Physical Exam: SUBJECTIVE: Patient seen and examined with his primary RN in attendance. Primary RN noticed that patient's right leg is cold to the touch and brought it to my attention. Both RN and I were not able to palpate pulses from this right leg, but patient was able to right leg/toes when asked. Left leg warm to touch +pulses. OBJECTIVE: Vital Signs Period Temp Pulse Resp BP Sys/Suazo Pulse Ox Last 24 Hr 96.8 F-98.9 F 61-76 20-20 119-140/60-76 97-98 GENERAL: The patient is awake, slow to respond, lethargic, still appears to be oversedated, but slightly improved HEAD: Normal with no signs of trauma. EYES: PERRL, extraocular movements intact, sclera anicteric, conjunctiva clear. No ptosis. ENT: Ears normal, nares patent, oropharynx clear without exudates, moist mucous membranes. NECK: Trachea midline, full range of motion, supple. ABDOMEN: Soft, nontender, nondistended, normoactive bowel sounds, no guarding, no rebound, no hepatosplenomegaly, no masses. EXTREMITIES: see note above, see doppler studies NEUROLOGICAL: slurred speech, gait not observed. PSYCH: Normal mood, normal affect. Laboratory Results - last 24 hr 04/28/17 04/28/17 06:00 06:00 WBC 7.5 RBC 3.35 L Hgb 10.8 L Hct 33.0 L MCV 98.5 H MCH 32.3 MCHC 32.8 RDW 15.4 Plt Count 469 H MPV 8.2 Neutrophils % 76.6 Lymphocytes % 15.8 D Monocytes % 6.8 Eosinophils % 0.3 Basophils % 0.5 Sodium 139 Potassium 4.7 Chloride 107 Carbon Dioxide 21 Anion Gap 11 BUN 34 H Creatinine 1.1 Creat Clearance w eGFR > 60 Random Glucose 80 Calcium 8.4 L Magnesium 2.6 H Total Bilirubin 0.5 AST 28 D ALT 53 D Alkaline Phosphatase 113 Total Protein 5.8 L Albumin 3.2 L Active Medications Generic Name Dose Route Start Last Admin Trade Name Freq PRN Reason Stop Dose Admin Carbidopa/Levodopa 1 combo 04/16/17 17:00 04/28/17 12:07 Sinemet *Cr* 50/200 - PO 1 combo 0700,1200,1700 [facility] Administration Diazepam 2.5 mg 04/26/17 15:21 Valium - PO Q8H PRN LOWER BACK PAIN Docusate Sodium 100 mg 04/18/17 14:21 04/22/17 09:47 Colace - PO 100 mg Q8H PRN Administration CONSTIPATION Ferrous Sulfate 325 mg 04/21/17 08:00 04/28/17 08:20 Feosol - PO 325 mg BID@0800,1730 [facility] Administration Gabapentin 300 mg 04/27/17 15:00 04/28/17 13:49 Neurontin - PO 300 mg TID [facility] Administration Sodium Chloride 1,000 mls @ 42 mls/hr 04/25/17 16:45 04/28/17 02:30 1/2 Normal Saline IV 42 mls/hr ASDIR [facility] Administration Lidocaine 1 patch 04/26/17 15:45 04/28/17 09:34 Lidoderm Patch - TP 1 patch DAILY [facility] Administration Metoprolol Tartrate 50 mg 04/17/17 14:00 04/28/17 13:49 Lopressor - PO 50 mg TID [facility] Administration Miscellaneous 1 each 04/26/17 22:00 04/27/17 21:23 Lidoderm Patch Removal MC Not Given DAILY@2200 [facility] Multivitamins/Minerals/Vitamin C 1 tab 04/24/17 11:00 04/28/17 09:34 Tab-A-Vit - PO 1 tab DAILY [facility] Administration Oxycodone HCl 5 mg 04/26/17 15:12 04/28/17 12:07 Roxicodone - PO 5 mg Q6H PRN Administration BACK PAIN Polyethylene Glycol 17 gm 04/17/17 10:00 04/28/17 09:35 Miralax (For Daily Use) - PO 17 gm DAILY [facility] Administration Pramipexole Dihydrochloride 0.5 mg 04/16/17 17:00 04/28/17 12:07 Mirapex - PO 0.5 mg 0700,1200,1700 [facility] Administration Pramipexole Dihydrochloride 0.5 mg 04/16/17 22:00 04/27/17 21:24 Mirapex - PO 0.5 mg HS [facility] Administration Senna 1 tab 04/23/17 10:15 04/28/17 09:34 Senna - PO 1 tab BID [facility] Administration ASSESSMENT/PLAN: Patient is a 71 year old male with a past medical history of hypertension, hyperlipidemia, paroxysmal a.fib, pulmonary HTN, COPD, depression, anxiety, CKD stage 3, chronic back and b/l leg pain admitted on 04/11/17 with worsening back and lower extremity pain, s/p laminectomy w/ fusion T12-S2 04/13. His CRUZ drain was removed on 04/23/2017. Imaging: CT of head/without contrast 04/27/2017: (1) No significant change from 04/20/[address], no ICH, mass effect or midline shift (2) No evidence of acute transcortical infarction (3) generalized age related volume loss with stable ventriculomegaly, likely ex vacuo. However, givin the bowing of the corpus callosum, an early, mild communicating hydrocephalus is not entirely excluded. Duplex arterial Vascular ultrasound 04/28/2017: Moderate atherosclerosis disease with no evidence of occlusions or hemodynamically sign. stenosis. Vascular study ultrasound 04/28/2017- No DVT seen Neuro: Acute on chronic b/l lower extremity pain A/P: Patient is s/p laminectomy with fusion T12-S2, repair pseudo menigoceal on 04/13. S/P CRUZ drain removed CT scan of head shows no significant change from previous study but questionable mild communicating hydrocephalus cannot be excluded. Consulted and spoke to Dr. Quan regarding CT head findings Pain meds were previously decreased secondary to lethargy/oversedation, patient appears more comfortable today. oxycodone decreased fom 10mg to 5mg q6 as needed Decreased Neurontin to 300mg TID from 400mg TID Valium decreased to q8 hours instead of q6 hours Monitor for pain Parkinson's disease - chronic a/p: On Sinemet Cr 25/100 TID, on Pramipexole po qid PT evaluation ongoing Hematology: Acute blood loss anemia - low hmg/hct but stable A/P: On Ferrous sulfate BID Monitor CBC Leukocytosis - resolved A/P: No fevers, WBC now stable Urine/blood cultures pending Vascular: A/P: Right foot with non palpable pulses, cool to the touch Doppler studies as noted above Will consult vascular Renal: Chronic Kidney disease - A/P: On IVF, continue same Creatinine 1.1 UTI - now resolved Cardiology: Hypertension - chronic Continue cardiac meds: metoprolol 50mg TID Monitor BP Paroxysmal a.fib - chronic A/P: On Metoprolol, on no anticoagulation: pt has refused AC as per notes in chart F.E.N. Fluids: 1/2 NS @ 42cc/hr Electrolytes: monitor with BMP: hypermagnesium @2.8 Nutrition: low sodium Prophylaxis: DVT: Heparin 5000u sq PT: Protonix for GI protection Disposition: Full code. Plan: Discharge tomorrow to SNF. Visit type - Emergency Visit Emergency Visit: Yes ED Registration Date: 04/11/17 Care time: The patient presented to the Emergency Department on the above date and was hospitalized for further evaluation of their emergent condition. - New Patient This patient is new to me today: No - Critical Care Critical Care patient: No - Discharge Referral Referred to [facility] Med P.C.: No
--- NOTE | 2017-04-28 20:33 | PN ---
Progress Note (short form) - Note Progress Note: Vascular surgery S/P spine surgery Bl lower ext warm to touch. Pt with palpable pulses bl lower ext . No need for vascular intervention. Medical management. Floyd Mccoy DO
[2017-04-28] MEDS: LIDOCAINE PATCH REMOVAL MC SCH (21:57)
[2017-04-29] MEDS: SODIUM CHLORIDE 0.45% 1,000 ML IV SCH (01:38)
[2017-04-29] MEDS: oxyCODONE HCL 5 MG TABLET PO PRN ×2 (02:55→08:45)
[2017-04-29] MEDS: diazePAM 5 MG TABLET PO PRN ×2 (02:55→12:55)
[2017-04-29] MEDS: METOPROLOL TARTRATE 50 MG TABLET (FP) PO SCH (06:00)
[2017-04-29] MEDS: GABAPENTIN 300 MG CAPSULE (FP) PO SCH (06:00)
[2017-04-29] MEDS ORDERED: PT OWN MED DRAWER 7, Y5N ONE (06:18)
[2017-04-29] MEDS: PRAMIPEXOLE DIHYDROCHLORIDE 0.5 MG TABLET PO SCH ×2 (06:20→12:48)
--- NOTE | 2017-04-29 08:37 | PN ---
Progress Note (short form) - Note Progress Note: POD #16 Alert. Doing well. Pain managed well with help from Dr. Mondragon (Pain Management). No acute events over past 24 hours per RN notes. Yesterday, informed that patient's right foot was cool to touch. We were able to locate both DP and PT via doppler. Vascular Consult Dr. Mccoy appreciated. Denies n/v/f/c, CP, SOB. Last Vital Signs Temp Pulse Resp BP Pulse Ox 98.1 F 64 20 107/68 97 04/29/17 07:37 04/29/17 07:37 04/29/17 07:37 04/29/17 07:37 04/28/17 21:00 Gen; alert. nad. Back/Skin: All jef removed. Inferior pole of wound with slight erythema. No drainage/induration Muscoloskletal: RLE 5/5 Plantar/dorsi flexion LLE 4/5 plantar/dorsi flexion. A/P POD #16 s/p T12-S2 laminectomy/fusion/instrumentation/decompression to correct degenerative scoliosis 1. Jef removed on rounds 2. Back washed with hibiclens prior to placing steri strips and aquacel dressing 3. Cleared for dc to rehab from neurosurgical standpoint 4. Above plan discussed with Dr. Queen and agrees On behalf of Dr. Queen, thank you for the opportunity to participate in your patient's care.
[2017-04-29] MEDS: FERROUS SO4 325 MG TABLET (FP) PO SCH (08:45)
--- NOTE | 2017-04-29 08:49 | DS ---
Physical Exam: SUBJECTIVE: Patient seen and examined at the bedside. States he has no pain except when he is moved. Patient aware that he is for discharge today. OBJECTIVE: Vital Signs Period Temp Pulse Resp BP Sys/Suazo Pulse Ox Last 24 Hr 96.4 F-98.9 F 61-74 18-20 107-137/55-76 97-98 PHYSICAL EXAM GENERAL: The patient is awake, slow to respond, lethargic, still appears to be oversedated, but slightly improved HEAD: Normal with no signs of trauma. EYES: PERRL, extraocular movements intact, sclera anicteric, conjunctiva clear. No ptosis. ENT: Ears normal, nares patent, oropharynx clear without exudates, moist mucous membranes. NECK: Trachea midline, full range of motion, supple. ABDOMEN: Soft, nontender, nondistended, normoactive bowel sounds, no guarding, no rebound, no hepatosplenomegaly, no masses. EXTREMITIES: see doppler studies NEUROLOGICAL: slurred speech, gait not observed PSYCH: Normal mood, normal affect. LABS Laboratory Results - last 24 hr 04/28/17 06:00 Sodium 139 Potassium 4.7 Chloride 107 Carbon Dioxide 21 Anion Gap 11 BUN 34 H Creatinine 1.1 Creat Clearance w eGFR > 60 Random Glucose 80 Calcium 8.4 L Magnesium 2.6 H Total Bilirubin 0.5 AST 28 D ALT 53 D Alkaline Phosphatase 113 Total Protein 5.8 L Albumin 3.2 L HOSPITAL COURSE: Date of Admission:04/11/17 Date of Discharge: 04/29/17 ASSESSMENT/PLAN: Patient is a 71 year old male with a past medical history of hypertension, hyperlipidemia, paroxysmal a.fib, pulmonary HTN, COPD, depression, anxiety, CKD stage 3, chronic back and b/l leg pain admitted on 04/11/17 with worsening back and lower extremity pain, s/p laminectomy w/ fusion T12-S2 04/13. His CRUZ drain was removed on 04/23/2017. Imaging: CT of head/without contrast 04/27/2017: (1) No significant change from 04/20/[address], no ICH, mass effect or midline shift (2) No evidence of acute transcortical infarction (3) generalized age related volume loss with stable ventriculomegaly, likely ex vacuo. However, given the bowing of the corpus callosum, an early, mild communicating hydrocephalus is not entirely excluded. Duplex arterial Vascular ultrasound 04/28/2017: Moderate atherosclerosis disease with no evidence of occlusions or hemodynamically sign. stenosis. Vascular study ultrasound 04/28/2017- No DVT seen Neuro: Acute on chronic b/l lower extremity pain A/P: Patient is s/p laminectomy with fusion T12-S2, repair pseudo menigoceal on 04/13. POD #16 s/p T12-S2 laminectomy/fusion/instrumentation/decompression to correct degenerative scoliosis S/P CRUZ drain removed, jef removed CT scan of head shows no significant change from previous study but questionable mild communicating hydrocephalus cannot be excluded. Consulted and spoke to Dr. Quan regarding CT head findings Pain meds were previously decreased secondary to lethargy/oversedation, patient appears more comfortable today. oxycodone decreased fom 10mg to 5mg q6 as needed Decreased Neurontin to 300mg TID from 400mg TID Valium decreased to q8 hours instead of q6 hours Monitor for pain Parkinson's disease - chronic a/p: On Sinemet Cr 25/100 TID, on Pramipexole po qid PT evaluation ongoing Hematology: Acute blood loss anemia - low hmg/hct but stable A/P: On Ferrous sulfate BID Monitor CBC Leukocytosis - resolved A/P: No fevers, WBC now stable Urine/blood cultures pending Vascular: A/P: Right foot cool to touch, + pulses Seen and cleared by vascular Doppler studies as noted above Renal: Chronic Kidney disease - A/P: Encourage PO intake Creatinine stable UTI - now resolved Cardiology: Hypertension - chronic Continue cardiac meds: metoprolol 50mg TID Monitor BP Paroxysmal a.fib - chronic A/P: On Metoprolol, on no anticoagulation: pt has refused AC as per notes in chart Prophylaxis: DVT: Heparin 5000u sq PT: Protonix for GI protection Disposition: Full code. Discharge today. Minutes to complete discharge: 60 Discharge Summary Reason For Visit: PAIN LOWER EXT/BACK PAIN Current Active Problems Anemia (Acute) Atypical chest pain (Acute) BPH (benign prostatic hyperplasia) (Acute) Chronic obstructive pulmonary disease (COPD) (Acute) Diverticulosis (Acute) Parkinson disease (Acute) S/P laminectomy (Acute) Syncope (Acute) Systolic CHF (Acute) Back pain (Chronic) Carotid stenosis (Chronic) Depression (Chronic) HTN (hypertension) (Chronic) Hyperlipidemia (Chronic) LBBB (left bundle branch block) (Chronic) Osteoarthritis (Chronic) Polysubstance (excluding opioids) dependence (Chronic) SVT (supraventricular tachycardia) (Chronic) Condition: Stable - Instructions Diet, Activity, Other Instructions: Mr. Hernandez: You will be discharged today to a rehab facility for continued care. Please call us with any questions that you may have. Dennis Cook @ [facility] [phone] Referrals: Nilesh Queen MD, FAANS [Staff Physician] - Wili Quiroz MD [Staff Physician] - Gerald Quan MD [Staff Physician] - Disposition: HALFWAY FACILITY - Home Medications Comprehensive Discharge Medication List: Ambulatory Orders Pantoprazole Sodium [Protonix -] 40 mg PO BID #60 tablet.ec 07/26/15 Alendronate Na [Fosamax (Weekly)] 70 mg PO WEEKLY 08/22/16 Oxycodone HCl/Acetaminophen [Percocet 5-325 mg Tablet] 1 - 2 tab PO Q4H Magnesium Hydrox 2400MG/30Ml [Milk of Magnesia -] 30 ml PO Q8H PRN 01/11/17 Docusate Sodium [Colace -] 100 mg PO BID #60 capsule 01/16/17 Ondansetron HCl [Zofran] 8 mg PO Q8H PRN #14 tablet 01/16/17 Sennosides [Senna -] 2 tab PO DAILY #30 tablet 01/16/17 Sodium Phosphate/Na Biphos [Fleet Adult Rectal Enema -] 133 ml RC WEEKLY PRN #4 enema 01/16/17 Amlodipine Besylate [Norvasc -] 5 mg PO DAILY #30 tablet 03/26/17 Carbidopa/Levodopa *Cr* 25/100 [Sinemet *Cr* 25/100 -] 1 combo PO TID@0700,1200, 1700 #30 tab 03/26/17 Pramipexole Dihydrochloride [Mirapex -] 0.25 mg PO HS #30 tablet 03/26/17 Pramipexole Dihydrochloride [Mirapex -] 0.25 mg PO TID@0700,1200,1700 #90 tablet 03/26/17 This patient is new to me today: No Emergency Visit: Yes ED Registration Date: 04/11/17 Care time: The patient presented to the Emergency Department on the above date and was hospitalized for further evaluation of their emergent condition. Critical Care patient: No - Discharge Referral Referred to [facility] Med [facility].C[facility] Yes Physician Referral: Wili Solares MD ([facility])
[2017-04-29] MEDS: SENNOSIDES 8.6MG TABLET (FP) PO SCH (09:49)
[2017-04-29] MEDS: LIDOCAINE 5% TOPICAL PATCH TP SCH (09:49)
[2017-04-29] MEDS: MULTIVITAMINS (DAILY MVI) TABLET (FP) PO SCH (09:49)
[2017-04-29] MEDS: POLYETHYLENE GLYCOL 3350 119 GM BTL PO SCH (09:52)
[2017-04-29 09:58] VITALS: BP 120/73; PULSE 67
[2017-04-29 10:49] VITALS: TEMP 98.4
--- NOTE | 2017-04-29 11:28 | PN ---
Progress Note (short form) - Note Progress Note: Resting in NAD. No acute events overnight. Intake & Output 04/26/17 04/27/17 04/28/17 04/29/17 23:59 23:59 23:59 23:59 Intake Total 2403 2085 1931 652 Balance 2403 2085 1931 652 Last Vital Signs Temp Pulse Resp BP Pulse Ox 98.4 F 67 20 120/73 98 04/29/17 10:49 04/29/17 09:00 04/29/17 09:00 04/29/17 09:00 04/29/17 09:00 Active Medications Carbidopa/Levodopa (Sinemet *Cr* 50/200 -) 1 combo PO 0700,1200,1700 [facility] Last Admin: 04/29/17 06:19 Dose: 1 combo Diazepam (Valium -) 2.5 mg PO Q8H PRN PRN Reason: LOWER BACK PAIN Last Admin: 04/29/17 02:55 Dose: 2.5 mg Docusate Sodium (Colace -) 100 mg PO Q8H PRN PRN Reason: CONSTIPATION Last Admin: 04/22/17 09:47 Dose: 100 mg Ferrous Sulfate (Feosol -) 325 mg PO BID@0800,1730 [facility] Last Admin: 04/29/17 08:45 Dose: 325 mg Gabapentin (Neurontin -) 300 mg PO TID [facility] Last Admin: 04/29/17 06:00 Dose: 300 mg Heparin Sodium (Porcine) (Heparin -) 5,000 unit SQ TID [facility] Sodium Chloride (1/2 Normal Saline) 1,000 mls @ 42 mls/hr IV ASDIR [facility] Last Admin: 04/29/17 01:38 Dose: 42 mls/hr Lidocaine (Lidoderm Patch -) 1 patch TP DAILY [facility] Last Admin: 04/29/17 09:49 Dose: 1 patch Metoprolol Tartrate (Lopressor -) 50 mg PO TID [facility] Last Admin: 04/29/17 06:00 Dose: 50 mg Miscellaneous (Lidoderm Patch Removal) 1 each MC DAILY@2200 [facility] Last Admin: 04/28/17 21:57 Dose: Not Given Multivitamins/Minerals/Vitamin C (Tab-A-Vit -) 1 tab PO DAILY [facility] Last Admin: 04/29/17 09:49 Dose: 1 tab Oxycodone HCl (Roxicodone -) 5 mg PO Q6H PRN PRN Reason: BACK PAIN Last Admin: 04/29/17 08:45 Dose: 5 mg Polyethylene Glycol (Miralax (For Daily Use) -) 17 gm PO DAILY [facility] Last Admin: 04/29/17 09:52 Dose: Not Given Pramipexole Dihydrochloride (Mirapex -) 0.5 mg PO 0700,1200,1700 [facility] Last Admin: 04/29/17 06:20 Dose: 0.5 mg Pramipexole Dihydrochloride (Mirapex -) 0.5 mg PO HS [facility] Last Admin: 04/28/17 21:56 Dose: 0.5 mg Senna (Senna -) 1 tab PO BID [facility] Last Admin: 04/29/17 09:49 Dose: 1 tab Constitutional: Yes: NAD Eyes: Yes: WNL HENT: Yes: WNL Neck: Yes: WNL Cardiovascular: Yes: Regular Rate and Rhythm, S1, S2 Respiratory: Yes: Diminished Gastrointestinal: Yes: Normal Bowel Sounds, Soft Extremities: Yes: WNL Edema: No Labs: Problem List - Problems (1) Chronic obstructive pulmonary disease (COPD) Code(s): J44.9 - CHRONIC OBSTRUCTIVE PULMONARY DISEASE, UNSPECIFIED (2) Lower extremity pain Code(s): M79.606 - PAIN IN LEG, UNSPECIFIED Qualifiers: Qualified Code(s): M79.604 - Pain in right leg (3) Carotid stenosis Code(s): I65.29 - OCCLUSION AND STENOSIS OF UNSPECIFIED CAROTID ARTERY (4) HTN (hypertension) Code(s): I10 - ESSENTIAL (PRIMARY) HYPERTENSION Qualifiers: Qualified Code(s): I10 - Essential (primary) hypertension (5) Afib Code(s): I48.91 - UNSPECIFIED ATRIAL FIBRILLATION (6) CKD (chronic kidney disease) stage 3, GFR 30-59 ml/min Code(s): N18.3 - CHRONIC KIDNEY DISEASE, STAGE 3 (MODERATE) (7) BPH (benign prostatic hyperplasia) Code(s): N40.0 - BENIGN PROSTATIC HYPERPLASIA WITHOUT LOWER URINRY TRACT SYMP (8) Back pain Code(s): M54.9 - DORSALGIA, UNSPECIFIED Qualifiers: Qualified Code(s): M54.5 - Low back pain Assessment/Plan IMP COPD STABLE PAF CHRONIC BACK PAIN S/P T12-S2 LAMINECTOMIES/DECOMPRESSION/FUSION HTN PULMONARY HTN CKD PARKINSONS PLAN NO SMOKING OUTPATIENT PFTS INHALED BRONCHODILATORS PRN D/C Dr Yoo
--- NOTE | 2017-04-29 13:48 | PN ---
Progress Note, Physician History of Present Illness: Patient is a 71 year old white male with a history of depression, anxiety, paroxysmal afib, Known LBBB, HTN, CKD stage 3, Nephrolithiasis(s/p R UVJ Stent) , BPH and Chronic back pain who presents with acute worsening of bilateral lower extremity pain and lower back pain. The patient reports that his chronic lower extremity pain acutely worsened earlier today and did not respond to taking 4-5 percocet prompting him to present to the ED today. Of note, he had a recent admission 03/2017 for similar complaints where he underwent a diagnostic LP and MRI which did not demonstrate etiologies of his back pain. He has had 2 laminectomies in the past that did not help resolve his pain. He has presented multiple times to our ED and OSH EDs for similar worsening of his bilateral lower extremity pain. He denies saddle anesthesia, but notes some numbness and tingling in his lower extremities. He states that he is unable to ambulate at home secondary to pain. He denies fevers, chills, SOB, chest pain, abdominal pain, or changes with urination or bowel movements. - Current Medication List Current Medications: Active Medications Carbidopa/Levodopa (Sinemet *Cr* 50/200 -) 1 combo PO 0700,1200,1700 [facility] Last Admin: 04/29/17 12:48 Dose: 1 combo Diazepam (Valium -) 2.5 mg PO Q8H PRN PRN Reason: LOWER BACK PAIN Last Admin: 04/29/17 12:55 Dose: 2.5 mg Docusate Sodium (Colace -) 100 mg PO Q8H PRN PRN Reason: CONSTIPATION Last Admin: 04/22/17 09:47 Dose: 100 mg Ferrous Sulfate (Feosol -) 325 mg PO BID@0800,1730 [facility] Last Admin: 04/29/17 08:45 Dose: 325 mg Gabapentin (Neurontin -) 300 mg PO TID [facility] Last Admin: 04/29/17 06:00 Dose: 300 mg Heparin Sodium (Porcine) (Heparin -) 5,000 unit SQ TID [facility] Sodium Chloride (1/2 Normal Saline) 1,000 mls @ 42 mls/hr IV ASDIR [facility] Last Admin: 04/29/17 01:38 Dose: 42 mls/hr Lidocaine (Lidoderm Patch -) 1 patch TP DAILY [facility] Last Admin: 04/29/17 09:49 Dose: 1 patch Metoprolol Tartrate (Lopressor -) 50 mg PO TID [facility] Last Admin: 04/29/17 06:00 Dose: 50 mg Miscellaneous (Lidoderm Patch Removal) 1 each MC DAILY@2200 [facility] Last Admin: 04/28/17 21:57 Dose: Not Given Multivitamins/Minerals/Vitamin C (Tab-A-Vit -) 1 tab PO DAILY [facility] Last Admin: 04/29/17 09:49 Dose: 1 tab Oxycodone HCl (Roxicodone -) 5 mg PO Q6H PRN PRN Reason: BACK PAIN Last Admin: 04/29/17 08:45 Dose: 5 mg Polyethylene Glycol (Miralax (For Daily Use) -) 17 gm PO DAILY [facility] Last Admin: 04/29/17 09:52 Dose: Not Given Pramipexole Dihydrochloride (Mirapex -) 0.5 mg PO 0700,1200,1700 [facility] Last Admin: 04/29/17 12:48 Dose: 0.5 mg Pramipexole Dihydrochloride (Mirapex -) 0.5 mg PO HS [facility] Last Admin: 04/28/17 21:56 Dose: 0.5 mg Senna (Senna -) 1 tab PO BID [facility] Last Admin: 04/29/17 09:49 Dose: 1 tab - Objective Vital Signs: Vital Signs Temperature 98.4 F 04/29/17 10:49 Pulse Rate 67 04/29/17 09:00 Respiratory Rate 20 04/29/17 09:00 Blood Pressure 120/73 04/29/17 09:00 O2 Sat by Pulse Oximetry (%) 98 04/29/17 09:00 Labs: CBC, BMP 04/28/17 06:00 04/28/17 06:00 INR, PTT INR 1.00 (0.82-1.09) 04/13/17 06:00 Problem List - Problems (1) BPH (benign prostatic hyperplasia) Code(s): N40.0 - BENIGN PROSTATIC HYPERPLASIA WITHOUT LOWER URINRY TRACT SYMP (2) Chronic obstructive pulmonary disease (COPD) Code(s): J44.9 - CHRONIC OBSTRUCTIVE PULMONARY DISEASE, UNSPECIFIED (3) Diverticulosis Code(s): K57.90 - DVRTCLOS OF INTEST, PART UNSP, W/O PERF OR ABSCESS W/O BLEED (4) Syncope Code(s): R55 - SYNCOPE AND COLLAPSE Qualifiers: Qualified Code(s): R55 - Syncope and collapse (5) Back pain Code(s): M54.9 - DORSALGIA, UNSPECIFIED Qualifiers: Qualified Code(s): M54.5 - Low back pain (6) Depression Code(s): F32.9 - MAJOR DEPRESSIVE DISORDER, SINGLE EPISODE, UNSPECIFIED Qualifiers: Qualified Code(s): F33.0 - Major depressive disorder, recurrent, mild (7) HTN (hypertension) Code(s): I10 - ESSENTIAL (PRIMARY) HYPERTENSION Qualifiers: Qualified Code(s): I10 - Essential (primary) hypertension (8) Hyperlipidemia Code(s): E78.5 - HYPERLIPIDEMIA, UNSPECIFIED Qualifiers: Qualified Code(s): E78.5 - Hyperlipidemia, unspecified (9) LBBB (left bundle branch block) Code(s): I44.7 - LEFT BUNDLE-BRANCH BLOCK, UNSPECIFIED (10) SVT (supraventricular tachycardia) Code(s): I47.1 - SUPRAVENTRICULAR TACHYCARDIA (11) CKD (chronic kidney disease) stage 3, GFR 30-59 ml/min Code(s): N18.3 - CHRONIC KIDNEY DISEASE, STAGE 3 (MODERATE) (12) Osteoporosis Code(s): M81.0 - AGE-RELATED OSTEOPOROSIS W/O CURRENT PATHOLOGICAL FRACTURE (13) Weakness Code(s): R53.1 - WEAKNESS (14) Systolic CHF Code(s): I50.20 - UNSPECIFIED SYSTOLIC (CONGESTIVE) HEART FAILURE (15) S/P laminectomy Code(s): Z98.890 - OTHER SPECIFIED POSTPROCEDURAL STATES (16) Atypical chest pain Code(s): R07.89 - OTHER CHEST PAIN (17) Anemia Code(s): D64.9 - ANEMIA, UNSPECIFIED (18) Parkinson disease Code(s): G20 - PARKINSON'S DISEASE
[2017-04-29] MEDS ORDERED: HEPARIN NA (PORCINE) 5,000 UNITS/ML 1ML VIAL SQ SCH (14:00)
== END 2017-04-29 14:25 | DRG 457 ==
LOC: JER 02:34 → JERBED 05:48 → UNDOADMOB 06:00 → J6S 07:05 → OBSVTOIN 18:51 → JICU 04-13 16:18 → J4S 04-16 15:50 → J8W 04-26 20:40 → JERBED 04-29 03:21 → J8W 04-29 03:23
PROVIDERS: ADMIT Internal Medicine; ATTEND Nurse Practitioner Family
PROC: 0RG6071 Fusion of Thoracic Vertebral Joint with Autologous Tissue Substitute, Posterior Approach, Posterior Column, Open Approach (ICD-10-PCS; 2017-04-13)
PROC: [UNRECOGNIZED PROCEDURE] (2017-04-13)
PROC: 0SG1071 Fusion of 2 or more Lumbar Vertebral Joints with Autologous Tissue Substitute, Posterior Approach, Posterior Column, Open Approach (ICD-10-PCS; 2017-04-13)
PROC: 0SG10A1 (ICD-10-PCS; 2017-04-13)
PROC: 0SG3071 Fusion of Lumbosacral Joint with Autologous Tissue Substitute, Posterior Approach, Posterior Column, Open Approach (ICD-10-PCS; 2017-04-13)
PROC: 00UT0JZ Supplement Spinal Meninges with Synthetic Substitute, Open Approach (ICD-10-PCS; 2017-04-13)
PROC: 30233N0 Transfusion of Autologous Red Blood Cells into Peripheral Vein, Percutaneous Approach (ICD-10-PCS; 2017-04-13)
PROC: 00NY0ZZ Release Lumbar Spinal Cord, Open Approach (ICD-10-PCS; principal; 2017-04-13 12:00)
DX: M48.06 Spinal stenosis, lumbar region (principal); N39.0 Urinary tract infection, site not specified; N17.9 Acute kidney failure, unspecified; J98.11 Atelectasis; I47.1 Supraventricular tachycardia; G91.2 (Idiopathic) normal pressure hydrocephalus; G97.82 Other postprocedural complications and disorders of nervous system; I48.0 Paroxysmal atrial fibrillation; M47.897 Other spondylosis, lumbosacral region; I44.7 Left bundle-branch block, unspecified; I12.9 Hypertensive chronic kidney disease with stage 1 through stage 4 chronic kidney disease, or unspecified chronic kidney disease; N18.3 Chronic kidney disease, stage 3 (moderate); F41.8 Other specified anxiety disorders; N40.0 Benign prostatic hyperplasia without lower urinary tract symptoms; M54.5 Low back pain; M79.604 Pain in right leg; J44.9 Chronic obstructive pulmonary disease, unspecified; N50.819 Testicular pain, unspecified; I27.2 Other secondary pulmonary hypertension; I65.29 Occlusion and stenosis of unspecified carotid artery; G25.81 Restless legs syndrome; G20 Parkinson's disease; E78.5 Hyperlipidemia, unspecified; K59.09 Other constipation; K44.9 Diaphragmatic hernia without obstruction or gangrene; K58.8 Other irritable bowel syndrome; N20.0 Calculus of kidney; M41.86 Other forms of scoliosis, lumbar region; R00.0 Tachycardia, unspecified; R50.9 Fever, unspecified; B95.7 Other staphylococcus as the cause of diseases classified elsewhere; K57.90 Diverticulosis of intestine, part unspecified, without perforation or abscess without bleeding; M81.0 Age-related osteoporosis without current pathological fracture; R53.1 Weakness; M85.88 Other specified disorders of bone density and structure, other site; G96.19 Other disorders of meninges, not elsewhere classified; Y83.8 Other surgical procedures as the cause of abnormal reaction of the patient, or of later complication, without mention of misadventure at the time of the procedure; D64.9 Anemia, unspecified
CPT/HCPCS: 36415; 36430; 36511; 70450-TC; 71010-TC; 72070-TC; 72100-TC; 72125-TC; 72131-TC; 72148-TC; 73070-TC-LT; 74000-TC; 74176-TC; 76000-TC; 76870-TC; 80048; 80053; 80076; 81003; 81015; 82272; 82553; 82607; 82728; 82746; 82747; 83540; 83550; 83735; 83880; 84100; 84443; 84484; 85014; 85025; 85027; 85610; 85730; 86850; 86900; 86901; 86922; 87040; 87086; 87186; 93005; 93010; 93925-TC; 93970-TC; 94640; 94760; 97116-GP; 97161-GP; 99281-25; G0378; G0480; J1644; P9038; P9058

== ENCOUNTER 2017-05-14 17:34 | Inpatient (IN) | payer OTHER, BC ==
--- NOTE | 2017-05-14 18:54 | PDOC ---
History of Present Illness - History of Present Illness Initial Comments: 05/14/17 19:13 The patient is a 71 year old male BIBA from [facility] , with a significant past medical history of depression, anxiety, paroxysmal afib, LBBB, HTN, CKD stage 3 , nephrolithiasis (s/p R UVJ stent), BPH, and chronic back pain, who presents to the emergency department with multiple complaints, including, no appetite, dehydration, back pain, and leg pain. He denies any recent fevers, chills, headache or dizziness. He denies any recent nausea, vomit, diarrhea or constipation. He denies any recent chest pain or shortness of breath. He denies any recent dysuria, frequency, urgency or hematuria. Allergies: NKA Past surgical history: None reported. Social History: Nonsmoker. Denies EtOH use and recreational drug use. Primary Care Physician: Mynor Gibbons <Liliana Cook - Last Filed: 05/14/17 19:12> <Roxie Last - Last Filed: 05/17/17 22:36> - General Chief Complaint: Back Pain Stated Complaint: PAIN Time Seen by Provider: 05/14/17 18:06 Past History <Liliana Cook - Last Filed: 05/14/17 19:12> - Past Medical History Anemia: No Asthma: No Cancer: No Cardiac Disorders: Yes (HTN, HLD, Paroxysmal AFib) CVA: No COPD: Yes CHF: No Dementia: No Diabetes: No GI Disorders: Yes (Diverticulitis, IBS, hemorrhoids) Disorders: Yes (Englarged Prostate) HTN: Yes Hypercholesterolemia: Yes Kidney Stones: Yes (s/p Right UVJ Stent placement) Liver Disease: No Psychiatric Problems: Yes (Depression/Anxiety) Seizures: No Thyroid Disease: No - Surgical History Abdominal Surgery: Yes (Hernia Repair) Appendectomy: No Cardiac Surgery: No Cholecystectomy: No GI Surgery: Yes (HEMORRHOIDS/ANAL ULCER, RIGHT UVJ STENT) Lung Surgery: No Neurologic Surgery: No Orthopedic Surgery: Yes (Lumbar Back Surgery x2) - Immunization History Immunization Up to Date: Yes - Suicide/Smoking/Psychosocial Hx Smoking Status: No Smoking History: Unknown if ever smoked Years of Tobacco Use: 20 Have you smoked in the past 12 months: No Number of Cigarettes Smoked Daily: 0 If you are a former smoker, when did you quit?: over 25 years ago Information on smoking cessation initiated: No 'Breaking Loose' booklet given: 09/08/13 Hx Alcohol Use: No Drug/Substance Use Hx: No Substance Use Type: None Hx Substance Use Treatment: No <LastRoxie daniel - Last Filed: 05/17/17 22:36> - Past Medical History Allergies/Adverse Reactions: Allergies Allergy/AdvReac Type Severity Reaction Status Date / Time pregabalin [From Lyrica] Allergy Mild Verified 05/14/17 19:20 pravastatin sodium Allergy Unknown Verified 05/14/17 19:20 [From Pravachol] lactose Allergy Nausea Verified 05/14/17 19:20 morphine Allergy Verified 05/14/17 19:20 peanut Allergy Verified 05/14/17 19:20 Penicillins Allergy Verified 05/14/17 19:20 Home Medications: Ambulatory Orders Pantoprazole Sodium [Protonix -] 40 mg PO BID #60 tablet.ec 07/26/15 Alendronate Na [Fosamax (Weekly)] 70 mg PO WEEKLY 08/22/16 Magnesium Hydrox 2400MG/30Ml [Milk of Magnesia -] 30 ml PO Q8H PRN 01/11/17 Sennosides [Senna -] 2 tab PO DAILY #30 tablet 01/16/17 Sodium Phosphate/Na Biphos [Fleet Adult Rectal Enema -] 133 ml RC WEEKLY PRN #4 enema 01/16/17 Carbidopa/Levodopa *Cr* 50/200 [Sinemet *Cr* 50/200 -] 1 combo PO 0700,1200, 1700 #30 tab 04/29/17 Ferrous Sulfate [Feosol] 325 mg PO BID@0800,1730 #60 tab 04/29/17 Gabapentin [Neurontin -] 300 mg PO TID #120 tab 04/29/17 Heparin - 5,000 unit SQ TID #1 vial 04/29/17 Lidocaine 5% Patch [Lidoderm -] 1 patch TP DAILY patch 04/29/17 Metoprolol Tartrate [Lopressor -] 50 mg PO TID tablet 04/29/17 Multivitamins [Multivit ([facility] Formulary)] 1 tab PO DAILY tab 04/29/17 Polyethylene Glycol 3350 [Miralax 119 gm Btl -] 17 gm PO DAILY #1 bottle Pramipexole Dihydrochloride [Mirapex -] 0.5 mg PO 0700,1200,1700 #120 tablet Pramipexole Dihydrochloride [Mirapex -] 0.5 mg PO HS #31 tablet 04/29/17 Acetaminophen [Tylenol] 325 mg PO QID PRN 05/14/17 Docusate Sodium [Colace -] 200 mg PO HS PRN 05/14/17 Oxycodone HCl [Roxicodone -] 10 mg PO Q6H PRN MDD 4 tabls 05/14/17 Review of Systems - Review of Systems Able to Perform ROS?: Yes Comments:: 05/14/17 19:12 GENERAL/CONSTITUTIONAL: +decreased appetite. No fever or chills. No weakness. HEAD, EYES, EARS, NOSE AND THROAT: No change in vision. No ear pain or discharge. No sore throat. CARDIOVASCULAR: No chest pain or shortness of breath. RESPIRATORY: No cough, wheezing, or hemoptysis. GASTROINTESTINAL: No nausea, vomiting, diarrhea or constipation. GENITOURINARY: No dysuria, frequency, or change in urination. MUSCULOSKELETAL: +back pain. +leg pain.No joint or muscle swelling. SKIN: No rash NEUROLOGIC: No headache, vertigo, loss of consciousness, or change in strength/ sensation. ENDOCRINE: No increased thirst. No abnormal weight change. HEMATOLOGIC/LYMPHATIC: No anemia, easy bleeding, or history of blood clots. ALLERGIC/IMMUNOLOGIC: No hives or skin allergy. <Liliana Cook - Last Filed: 05/14/17 19:12> *Physical Exam - Vital Signs Last Vital Signs Temp Pulse Resp BP Pulse Ox 97.5 F L 85 20 128/68 98 05/14/17 17:39 05/14/17 17:39 05/14/17 17:39 05/14/17 17:39 05/14/17 17:39 - Physical Exam Comments: 05/14/17 19:12 GENERAL: Awake, alert, and fully oriented, in no acute distress HEAD: No signs of trauma EYES: PERRLA, EOMI, sclera anicteric, conjunctiva clear ENT: + dry tongue. Auricles normal inspection, hearing grossly normal, nares patent, oropharynx clear without exudates. NECK: Normal ROM, supple, no lymphadenopathy, JVD, or masses LUNGS: + crackles in right more than left. No wheezes. HEART: Regular rate and rhythm, normal S1 and S2, no murmurs, rubs or gallops ABDOMEN: Soft, nontender, normoactive bowel sounds. No guarding, no rebound. No masses EXTREMITIES: + wasting in legs. Normal range of motion, no edema. No clubbing or cyanosis. No cords, erythema, or tenderness NEUROLOGICAL: Cranial nerves II through XII grossly intact. Normal speech, normal gait SKIN: Warm, Dry, normal turgor, no rashes or lesions noted. <Liliana Cook - Last Filed: 05/14/17 19:12> - Vital Signs Last Vital Signs Temp Pulse Resp BP Pulse Ox 97.5 F L 85 20 128/68 98 05/14/17 17:39 05/14/17 17:39 05/14/17 17:39 05/14/17 17:39 05/14/17 17:39 <Roxie Last - Last Filed: 05/17/17 22:36> ED Treatment Course - LABORATORY CBC & Chemistry Diagram: 05/17/17 06:50 05/17/17 06:50 <Roxie Last - Last Filed: 05/17/17 22:36> *DC/Admit/Observation/Transfer - Attestations Scribe Attestion: 05/14/17 19:13 Documentation prepared by Liliana Cook, acting as medical appointment clerk for Roxie Last MD. <Liliana Cook - Last Filed: 05/14/17 19:12> <Roxie Last - Last Filed: 05/17/17 22:36> Diagnosis at time of Disposition: Back pain - Discharge Dispostion Condition at time of disposition: Stable
[2017-05-14] MEDS ORDERED: SODIUM CHLORIDE 0.9% 500 ML INFUS.BAG IV ONE (19:01)
[2017-05-14 19:26] LABS: BASOPHIL 0.9 % (0-2.0); EOSINOPHIL 1.5 % (0-4.5); MCH 32.8 pg (25.7-33.7); MCHC 32.8 g/dl (32.0-35.9); MEAN CELL VOLUME 99.9 fl (80-96); MEAN PLT VOLUME 8.8 fl (7.5-11.1); PLATELET COUNT 253 K/MM3 (134-434); RDW 17.3 % (11.9-15.9); WHITE BLOOD COUNT 8.5 K/mm3 (4.0-10.0)
[2017-05-14 19:49] LABS: ALBUMIN 3.4 g/dl (3.4-5.0); ANION GAP 12 (8-16); CALCIUM 8.8 mg/dL (8.5-10.1); CO2 22 mmol/L (21-32); CREATININE 1.3 mg/dL (0.7-1.3); GLUCOSE,RANDOM 91 mg/dL (74-106); SGPT/ALT 31 U/L (12-78); TOT PROT 6.4 g/dl (6.4-8.2)
[2017-05-14 19:55] LABS: ALK PHOS 245 U/L (45-117); BILIRUBIN,TOTAL 0.7 mg/dL (0.2-1.0); SGOT/AST 52 U/L (15-37)
[2017-05-14 21:42] LABS: TROPONIN I < 0.02 ng/ml (0.00-0.05)
[2017-05-14 21:47] LABS: CPK 71 IU/L (39-308); MAGNESIUM 2.6 mg/dL (1.8-2.4)
--- NOTE | 2017-05-14 23:28 | PDOC ---
*Physical Exam - Vital Signs Last Vital Signs Temp Pulse Resp BP Pulse Ox 97.5 F L 85 20 128/68 98 05/14/17 17:39 05/14/17 17:39 05/14/17 17:39 05/14/17 17:39 05/14/17 17:39 ED Treatment Course - LABORATORY CBC & Chemistry Diagram: 05/14/17 19:00 05/14/17 19:00 - ADDITIONAL ORDERS Additional order review: Laboratory Results 05/14/17 19:00 Sodium 138 Potassium 4.7 Chloride 104 Carbon Dioxide 22 Anion Gap 12 BUN 20 H D Creatinine 1.3 Creat Clearance w eGFR 54.11 Random Glucose 91 Calcium 8.8 Magnesium 2.6 H Total Bilirubin 0.7 D AST 52 H D ALT 31 D Alkaline Phosphatase 245 H D Creatine Kinase 71 Troponin I < 0.02 Total Protein 6.4 Albumin 3.4 05/14/17 19:00 RBC 4.00 MCV 99.9 H MCHC 32.8 RDW 17.3 H D MPV 8.8 Neutrophils % 71.0 Lymphocytes % 20.0 D Monocytes % 6.6 Eosinophils % 1.5 D Basophils % 0.9 - RADIOLOGY Radiology Studies Ordered: Category Date Time Status LUMBAR SPINE CT W/O CONTRAST [CT] Stat CT Scan 05/14/17 21:12 Completed - Medications Given in the ED: ED Medications Discontinued Medications Generic Name Dose Route Start Last Admin Trade Name Freq PRN Reason Stop Dose Admin Sodium Chloride 1,000 ml 05/14/17 19:01 05/14/17 19:25 Normal Saline - IV 05/14/17 19:02 1,000 ml ONCE ONE Administration *DC/Admit/Observation/Transfer Diagnosis at time of Disposition: Back pain - Discharge Dispostion Condition at time of disposition: Stable Admit: Yes - Referrals Referrals: Mynor Gibbons MD [Primary Care Provider] - - Patient Instructions - Post Discharge Activity
[2017-05-15] MEDS ORDERED: oxyCODONE HCL 5 MG TABLET ONE (02:21)
[2017-05-15] MEDS ORDERED: oxyCODONE HCL 5 MG TABLET PO ONE (02:28)
[2017-05-15 03:29] VITALS: BMI 23.2
[2017-05-15] MEDS ORDERED: ACETAMINOPHEN 325 MG TABLET (FP) PO PRN (06:31)
[2017-05-15] MEDS ORDERED: MAGNESIUM HYDROX 2400MG/30ML ORAL SUSPENSION 30 ML CUP PO PRN ×2 (06:31→14:45)
[2017-05-15] MEDS ORDERED: DOCUSATE SODIUM 100 MG CAPSULE (FP) PO PRN ×2 (06:31→13:25)
[2017-05-15] MEDS: oxyCODONE HCL 5 MG TABLET PO PRN ×2 (06:55→13:04)
[2017-05-15] MEDS ORDERED: METOPROLOL TARTRATE 50 MG TABLET (FP) PO SCH ×2 (07:45→14:00)
[2017-05-15] MEDS ORDERED: GABAPENTIN 300 MG CAPSULE (FP) PO SCH ×2 (07:45→14:00)
[2017-05-15] MEDS ORDERED: PRAMIPEXOLE DIHYDROCHLORIDE 0.5 MG TABLET PO SCH ×2 (07:45→14:00)
[2017-05-15] MEDS ORDERED: FERROUS SO4 325 MG TABLET (FP) PO SCH (10:00)
[2017-05-15] MEDS ORDERED: PANTOPRAZOLE 40 MG TABLET (FP) PO SCH (10:00)
[2017-05-15] MEDS ORDERED: LIDOCAINE 5% TOPICAL PATCH TP SCH (10:00)
[2017-05-15] MEDS ORDERED: SENNOSIDES 8.6MG TABLET (FP) PO SCH (10:00)
[2017-05-15 10:19] LABS: URINE APPEARANCE SLCLOUDY; URINE BILIRUBIN NEGATIVE (NEGATIVE); URINE BLOOD NEGATIVE (NEGATIVE); URINE COLOR AMBER; URINE GLUCOSE (UA) NEGATIVE (NEGATIVE); URINE KETONE TRACE (NEGATIVE); URINE NITRITE NEGATIVE (NEGATIVE); URINE PROTEIN NEGATIVE (NEGATIVE)
[2017-05-15 10:43] LABS: BASOPHIL 0.7 % (0-2.0); EOSINOPHIL 2.3 % (0-4.5); MCH 32.7 pg (25.7-33.7); MCHC 33.1 g/dl (32.0-35.9); MEAN CELL VOLUME 98.8 fl (80-96); MEAN PLT VOLUME 8.1 fl (7.5-11.1); PLATELET COUNT 240 K/MM3 (134-434); RDW 17.3 % (11.9-15.9); WHITE BLOOD COUNT 6.5 K/mm3 (4.0-10.0)
[2017-05-15 11:14] LABS: ALBUMIN 3.1 g/dl (3.4-5.0); ANION GAP 7 (8-16); CALCIUM 8.2 mg/dL (8.5-10.1); CO2 26 mmol/L (21-32); GLUCOSE,RANDOM 90 mg/dL (74-106)
[2017-05-15 11:17] LABS: ALK PHOS 206 U/L (45-117); BILIRUBIN,TOTAL 0.6 mg/dL (0.2-1.0); CREATININE 1.1 mg/dL (0.7-1.3); SGOT/AST 25 U/L (15-37); SGPT/ALT 56 U/L (12-78); TOT PROT 5.5 g/dl (6.4-8.2)
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
--- NOTE | 2017-05-15 11:53 | EKG ---
Test Reason : Blood Pressure : / mmHG Vent. Rate : 074 BPM Atrial Rate : 074 BPM P-R Int : 134 ms QRS Dur : 134 ms QT Int : 438 ms P-R-T Axes : -22 -64 125 degrees QTc Int : 486 ms NORMAL SINUS RHYTHM LEFT AXIS DEVIATION LEFT BUNDLE BRANCH BLOCK ABNORMAL ECG WHEN COMPARED WITH ECG OF 23-APR-2017 22:19, NO SIGNIFICANT CHANGE WAS FOUND Confirmed by ALLY BATISTA, JUSTIN ([id number]) on 05/15/2017 11:53:51 AM Referred By: Confirmed By:JUSTIN CANALES MD
[2017-05-15 12:02] LABS: ERYTHROCYTE SEDIMENTATION RATE 15 mm/hr (0-20)
[2017-05-15 12:24] LABS: C-REACTIVE PROTEIN 2.3 MG/DL (0.00-0.3)
--- NOTE | 2017-05-15 12:28 | HP ---
CHIEF COMPLAINT: Pain and weakness PCP: HISTORY OF PRESENT ILLNESS: Patient is a poor historian. Majority of the patient's history was collected from the patient record. 71 yo m w/ PMH paroxysmal afib, chronic back pain, HTN, CKD3, BPH presents to the ED from [facility] complaining of generalized weakness as well as increasing leg and back pain. He had a recent admission to [facility] for a laminectomy and fusion on 04/13. Patient states that since his discharge on 04/29 to [facility] for [facility], he has experienced increasing pain and weakness in both lower extremities. He also endorses decreased appetite and a feeling of sore throat and nonproductive cough as well as an episode of near syncope. This AM, an employee of the [employer] noted that he "did not look good" and called an ambulance to pick him up. Patient denies CP, SOB, fevers, chills, sick contacts , recent travel, abdominal pain, nausea or vomiting. ER course was notable for: (1) patient with generalized weakness (2) (3) Recent Travel: PAST MEDICAL HISTORY: depression, anxiety, nephrolithiasis PAST SURGICAL HISTORY: Social History: Smoking: denies Alcohol: denies Drugs: denies Family History: non-contributory Allergies pregabalin [From Lyrica] Allergy (Mild, Verified 05/14/17 19:20) pravastatin sodium [From Pravachol] Allergy (Unknown, Verified 05/14/17 19:20) however, pt takes atorvastatin 10 mg daily at home, reportedly without side effects lactose Allergy (Verified 05/14/17 19:20) Nausea morphine Allergy (Verified 05/14/17 19:20) unknown peanut Allergy (Verified 05/14/17 19:20) Penicillins Allergy (Verified 05/14/17 19:20) unknown affect HOME MEDICATIONS: Home Medications Medication Instructions Recorded Pantoprazole Sodium [Protonix -] 40 mg PO BID #60 tablet.ec 07/26/15 Alendronate Na [Fosamax (Weekly)] 70 mg PO WEEKLY 08/22/16 Magnesium Hydrox 2400MG/30Ml [Milk 30 ml PO Q8H PRN 01/11/17 of Magnesia -] Sennosides [Senna -] 2 tab PO DAILY #30 tablet 01/16/17 Sodium Phosphate/Na Biphos [Fleet 133 ml RC WEEKLY PRN #4 enema 01/16/17 Adult Rectal Enema -] Carbidopa/Levodopa *Cr* 50/200 1 combo PO 0700,1200,1700 #30 tab 04/29/17 [Sinemet *Cr* 50/200 -] Ferrous Sulfate [Feosol] 325 mg PO BID@0800,1730 #60 tab 04/29/17 Gabapentin [Neurontin -] 300 mg PO TID #120 tab 04/29/17 Heparin - 5,000 unit SQ TID #1 vial 04/29/17 Lidocaine 5% Patch [Lidoderm -] 1 patch TP DAILY patch 04/29/17 Metoprolol Tartrate [Lopressor -] 50 mg PO TID tablet 04/29/17 Multivitamins [Multivit ([facility] 1 tab PO DAILY tab 04/29/17 Formulary)] Polyethylene Glycol 3350 [Miralax 17 gm PO DAILY #1 bottle 04/29/17 119 gm Btl -] Pramipexole Dihydrochloride 0.5 mg PO 0700,1200,1700 #120 04/29/17 [Mirapex -] tablet Pramipexole Dihydrochloride 0.5 mg PO HS #31 tablet 04/29/17 [Mirapex -] Acetaminophen [Tylenol] 325 mg PO QID PRN 05/14/17 Docusate Sodium [Colace -] 200 mg PO HS PRN 05/14/17 Oxycodone HCl [Roxicodone -] 10 mg PO Q6H PRN MDD 4 tabls 05/14/17 REVIEW OF SYSTEMS CONSTITUTIONAL: Absent: fever, chills, diaphoresis, generalized weakness, malaise, loss of appetite, weight change HEENT: Absent: rhinorrhea, nasal congestion, throat pain, throat swelling, difficulty swallowing, mouth swelling, ear pain, eye pain, visual changes CARDIOVASCULAR: Absent: chest pain, syncope, palpitations, irregular heart rate, lightheadedness , peripheral edema RESPIRATORY: Absent: shortness of breath, dyspnea with exertion, orthopnea, wheezing, stridor , hemoptysis GASTROINTESTINAL: Absent: abdominal pain, abdominal distension, nausea, vomiting, diarrhea, constipation, melena, hematochezia GENITOURINARY: Absent: dysuria, frequency, urgency, hesitancy, hematuria, flank pain, genital pain MUSCULOSKELETAL: Absent: myalgia, joint swelling, neck pain SKIN: Absent: rash, itching, pallor HEMATOLOGIC/IMMUNOLOGIC: Absent: easy bleeding, easy bruising, lymphadenopathy, frequent infections ENDOCRINE: Absent: unexplained weight gain, unexplained weight loss, heat intolerance, cold intolerance NEUROLOGIC: Absent: headache, dizziness, unsteady gait, seizure, mental status changes, bladder or bowel incontinence PSYCHIATRIC: Absent: anxiety, depression, suicidal or homicidal ideation, hallucinations. PHYSICAL EXAMINATION Vital Signs - 24 hr 05/15/17 05/15/17 05/15/17 02:29 03:23 03:37 Temperature 98.1 F Pulse Rate 110 H Pulse Rate [ 70 Left Brachial] Respiratory 16 20 20 Rate Blood Pressure 110/57 Blood Pressure 138/80 [Left Arm] O2 Sat by Pulse 98 Oximetry (%) 05/15/17 05/15/17 05/15/17 06:00 09:00 09:15 Temperature 98.5 F 98.7 F Pulse Rate 73 86 Pulse Rate [ Left Brachial] Respiratory 20 20 Rate Blood Pressure 144/81 127/74 Blood Pressure [Left Arm] O2 Sat by Pulse 98 Oximetry (%) GENERAL: Awake, alert, and fully oriented, in no acute distress. HEAD: Normal with no signs of trauma. EYES: Pupils equal, round and reactive to light, extraocular movements intact, sclera anicteric, conjunctiva clear. No lid lag. THROAT: moist mucous membranes NECK: Normal range of motion, supple without lymphadenopathy, JVD, or masses. LUNGS: Breath sounds equal, clear to auscultation bilaterally. No wheezes, and no crackles. No accessory muscle use. HEART: Regular rate and rhythm, normal S1 and S2 without murmur, rub or gallop. ABDOMEN: Soft, nontender, not distended, normoactive bowel sounds, no guarding, no rebound, no masses. No hepatomegaly or splenomegaly. MUSCULOSKELETAL: Decreased range of motion at elbows and hips. No bony deformities or tenderness. No CVA tenderness. Surgical scar intact and healing well. Small area of skin breakdown at inferior border of scar w/o drainage. UPPER EXTREMITIES: 2+ pulses, warm, well-perfused. No cyanosis. No clubbing. No peripheral edema. LOWER EXTREMITIES: 2+ pulses, warm, well-perfused. No calf tenderness. No peripheral edema. NEUROLOGICAL: Cranial nerves II-X intact. Normal speech. Normal gait. SKIN: Warm, dry, normal turgor, no rashes or lesions noted, normal capillary refill. Laboratory Results - last 24 hr 05/15/17 05/15/17 05/15/17 06:00 10:30 10:30 WBC 6.5 RBC 3.60 L Hgb 11.7 D Hct 35.5 MCV 98.8 H MCH 32.7 MCHC 33.1 RDW 17.3 H Plt Count 240 MPV 8.1 Neutrophils % 69.0 Lymphocytes % 21.6 Monocytes % 6.4 Eosinophils % 2.3 Basophils % 0.7 ESR 15 D-Dimer Sodium 140 Potassium 4.2 Chloride 107 Carbon Dioxide 26 Anion Gap 7 L BUN 15 D Creatinine 1.1 Creat Clearance w eGFR > 60 Random Glucose 90 Calcium 8.2 L Total Bilirubin 0.6 AST 25 D ALT 56 D Alkaline Phosphatase 206 H Total Protein 5.5 L Albumin 3.1 L Urine Color Joan Urine Appearance Slcloudy Urine pH 5.0 D Urine Protein Negative Urine Glucose (UA) Negative Urine Ketones Trace H Urine Blood Negative Urine Nitrite Negative Urine Bilirubin Negative Urine Urobilinogen 2.0 05/15/17 10:30 WBC RBC Hgb Hct MCV MCH MCHC RDW Plt Count MPV Neutrophils % Lymphocytes % Monocytes % Eosinophils % Basophils % ESR D-Dimer 488 H Sodium Potassium Chloride Carbon Dioxide Anion Gap BUN Creatinine Creat Clearance w eGFR Random Glucose Calcium Total Bilirubin AST ALT Alkaline Phosphatase Total Protein Albumin Urine Color Urine Appearance Urine pH Urine Protein Urine Glucose (UA) Urine Ketones Urine Blood Urine Nitrite Urine Bilirubin Urine Urobilinogen ASSESSMENT/PLAN: 71 yo m w/ PMH of multiple problems including chronic back pain s/p laminectomy and instrumented fusion on 04/13 who presents to the ED c/o worsening back pain and weakness as well as cough and sore throat. #Pain and weakness in lower extremities likely 2/2 deconditioning vs poor pain control r/o neurological etiology -Neurosurgery consulted -neurology consulted -pain control with home roxicodone 10mg q6h and tylenol 325mg Q6h -physical therapy -MRI of spine -lidoderm patch #nonproductive cough and sore throat likely 2/2 viral etiology -cepachol PRN sore throat -monitor #near syncope likely 2/2 dehydration and poor PO intake -encourage PO intake #constipation -fleet enema PRN Q7D -colace 200mg -senna -milk of magnesia #parkinsons -c/w home sinemet -c/w home mirapex #afib -metoprolol 50mg TID #FEN -no indication for IVF at this time -monitor lytes -sodium controlled diet #prophylaxsis -protonix 40 PO BID -HSQ 5ku TID #dispo -admitted to med surg Visit type - Emergency Visit Emergency Visit: Yes ED Registration Date: 05/14/17 Care time: The patient presented to the Emergency Department on the above date and was hospitalized for further evaluation of their emergent condition. - New Patient This patient is new to me today: Yes Date on this admission: 05/15/17 - Critical Care Critical Care patient: No
[2017-05-15] MEDS ORDERED: SODIUM PHOSPHATE/NA BIPHOS 133 ML ENEMA RC PRN (13:25)
[2017-05-15] MEDS ORDERED: PATIENT'S OWN MEDICATION (NON-FORMULARY) (Magnesium Hydrox 2400mg/30ml 30 ML) PO PRN (13:25)
[2017-05-15] MEDS ORDERED: oxyCODONE HCL 5 MG TABLET PO PRN (13:25)
[2017-05-15] MEDS ORDERED: PATIENT'S OWN MEDICATION (NON-FORMULARY) (Alendronate Na [Fosamax (Weekly)] 70 MG) PO SCH (13:30)
[2017-05-15 13:57] LABS: URINE LEUK ESTERASE Negative (NEGATIVE)
[2017-05-15] MEDS ORDERED: HEPARIN NA (PORCINE) 5,000 UNITS/ML 1ML VIAL SQ SCH (14:00)
[2017-05-15] MEDS: HEPARIN NA (PORCINE) 5,000 UNITS/ML 1ML VIAL SQ SCH ×2 (15:06→21:25)
[2017-05-15] MEDS: GABAPENTIN 300 MG CAPSULE (FP) PO SCH ×2 (15:09→21:26)
[2017-05-15] MEDS: BENZOCAINE/MENTH/CETYLPYRD CL 1 EACH LOZENGE MM PRN (15:11)
[2017-05-15] MEDS: METOPROLOL TARTRATE 50 MG TABLET (FP) PO SCH ×2 (15:11→21:25)
[2017-05-15] MEDS: PRAMIPEXOLE DIHYDROCHLORIDE 0.5 MG TABLET PO SCH ×3 (15:13→21:26)
[2017-05-15] MEDS ORDERED: PT OWN MED DRAWER 7, Y5N ONE ×3 (16:21→20:41)
[2017-05-15] MEDS ORDERED: LORazepam 2 MG/ML SDV VIAL ONE (16:52)
--- NOTE | 2017-05-15 18:50 | PN ---
Teaching Attending Note Name of Resident: Black Parson ATTENDING PHYSICIAN STATEMENT I saw and evaluated the patient. I reviewed the resident's note and discussed the case with the resident. I agree with the resident's findings and plan as documented. SUBJECTIVE: OBJECTIVE: Vital Signs Period Temp Pulse Resp BP Sys/Suazo Pulse Ox Last 24 Hr 98.1 F-98.7 F 70-110 16-20 110-144/57-81 98-98 ASSESSMENT AND PLAN:
[2017-05-15] MEDS: PANTOPRAZOLE 40 MG TABLET (FP) PO SCH (21:26)
--- NOTE | 2017-05-15 21:26 | CONSULT ---
Consult - text type - Consultation Consultation Note: NEUROLOGY CONSULTATION is greatly appreciated: This 71 yo man with h/o HTN, COPD, PAF has h/o chronic Low back and leg pains. S/P LS lamicectomies x 3 without benefit. MRI of LS spine after the first 2 surgeries (2014) showed adequate decompression. Known to me after 3 years of progressive gait dysfunction, nocturnal pains in both legs and incontinence. Found to have Parkinson's disease with leg pains c/w RLS, and both complaints improved on L-Dopa and Pramipexole. W/U also supported developing hydrocephalus. Pt now returned from [facility] for unclear reasons. Admission note states [facility] staff felt he "didn't look right." Apparently was talking and perhaps making sense on admission. 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 MRI of LS spine is completely obscured by metallic artifact. Labs show increased LFT's but otherwise no obvious sign of infection. RAINER: Neck rigid in all directions. No bruits. Cor: Reg NEURO: Lethargic but arousable. Follows no commands. Gibberish, babbling speech. Reduced blink to threat from the right. No obvious facial. Full EOM' s. Depressed Gag Diffusely Rigid tone. + cogwheeling. Withdraws all 4's to pinch. Normal arm reflexes. Depressed leg reflexes. IMP: 1. Moderately severe, B/L cerebral dysfunction with features of Toxic- metabolic encephalopathy. 2. [place] OMS, Possible hydrocephalus 3. Parkinsonism 4. Chronic pain secondary to RLS. SUGGEST: Stat CT of head. R/O occult infection D/C narcotics and avoid benzodiazepines. Check Ammonia levels, B12, TSH, CK (R/O Neuroleptic malignant syndrome). Continue Sinemet CR 50/200 TID @ 7, 12, 5 and Pramipexole .5 QQID @ 7, 12, 5, and HS... But agree with holding pramipxole until encephalopathy has improved. Thank you very much, Gerald Quan MD
[2017-05-15] MEDS ORDERED: LIDOCAINE PATCH REMOVAL MC SCH (22:00)
[2017-05-16] MEDS: GABAPENTIN 300 MG CAPSULE (FP) PO SCH ×3 (06:04→22:11)
[2017-05-16] MEDS: METOPROLOL TARTRATE 50 MG TABLET (FP) PO SCH ×3 (06:04→22:11)
[2017-05-16] MEDS: HEPARIN NA (PORCINE) 5,000 UNITS/ML 1ML VIAL SQ SCH ×3 (06:04→22:11)
[2017-05-16] MEDS: PRAMIPEXOLE DIHYDROCHLORIDE 0.5 MG TABLET PO SCH (06:05)
--- NOTE | 2017-05-16 06:33 | PN ---
Physical Exam: SUBJECTIVE: Patient seen and examined at bedside. No new complaints. Patient is currently pain free. OBJECTIVE: Vital Signs Period Temp Pulse Resp BP Sys/Suazo Pulse Ox Last 24 Hr 98.4 F-98.7 F 63-86 20-20 118-140/69-75 98-98 GENERAL: The patient is awake, alert, and fully oriented, in no acute distress. HEAD: Normal with no signs of trauma. EYES: extraocular movements intact, sclera anicteric, conjunctiva clear. No ptosis. NECK: Trachea midline, full range of motion, supple. LUNGS: Breath sounds equal, clear to auscultation bilaterally, no wheezes, no crackles, no accessory muscle use. HEART: Regular rate and rhythm, S1, S2 without murmur, rub or gallop. ABDOMEN: Soft, nontender, nondistended, normoactive bowel sounds, no guarding, no rebound. EXTREMITIES: 2+ pulses, warm, well-perfused, no edema. NEUROLOGICAL: Cranial nerves II through X grossly intact. Normal speech, gait not observed. PSYCH: Normal mood, normal affect. SKIN: Warm, dry, normal turgor, no rashes or lesions noted Laboratory Results - last 24 hr 05/15/17 05/15/17 05/15/17 06:00 10:30 10:30 WBC 6.5 RBC 3.60 L Hgb 11.7 D Hct 35.5 MCV 98.8 H MCH 32.7 MCHC 33.1 RDW 17.3 H Plt Count 240 MPV 8.1 Neutrophils % 69.0 Lymphocytes % 21.6 Monocytes % 6.4 Eosinophils % 2.3 Basophils % 0.7 ESR 15 D-Dimer Sodium 140 Potassium 4.2 Chloride 107 Carbon Dioxide 26 Anion Gap 7 L BUN 15 D Creatinine 1.1 Creat Clearance w eGFR > 60 Random Glucose 90 Calcium 8.2 L Total Bilirubin 0.6 AST 25 D ALT 56 D Alkaline Phosphatase 206 H C-Reactive Protein 2.3 H Total Protein 5.5 L Albumin 3.1 L Urine Color Joan Urine Appearance Slcloudy Urine pH 5.0 D Ur Specific [place] 1.025 Urine Protein Negative Urine Glucose (UA) Negative Urine Ketones Trace H Urine Blood Negative Urine Nitrite Negative Urine Bilirubin Negative Urine Urobilinogen 2.0 Ur Leukocyte Esterase Negative 05/15/17 10:30 WBC RBC Hgb Hct MCV MCH MCHC RDW Plt Count MPV Neutrophils % Lymphocytes % Monocytes % Eosinophils % Basophils % ESR D-Dimer 488 H Sodium Potassium Chloride Carbon Dioxide Anion Gap BUN Creatinine Creat Clearance w eGFR Random Glucose Calcium Total Bilirubin AST ALT Alkaline Phosphatase C-Reactive Protein Total Protein Albumin Urine Color Urine Appearance Urine pH Ur Specific [place] Urine Protein Urine Glucose (UA) Urine Ketones Urine Blood Urine Nitrite Urine Bilirubin Urine Urobilinogen Ur Leukocyte Esterase Active Medications Generic Name Dose Route Start Last Admin Trade Name Freq PRN Reason Stop Dose Admin Acetaminophen 325 mg 05/15/17 13:25 Tylenol - PO QID PRN PAIN Benzocaine/Menthol 1 each 05/15/17 11:51 05/15/17 15:11 Cepacol Lozenge - MM 1 each Q6H PRN Administration SORE THROAT Carbidopa/Levodopa 1 combo 05/15/17 17:00 05/16/17 06:05 Sinemet *Cr* 50/200 - PO 1 combo 0700,1200,1700 SIENA Administration Docusate Sodium 200 mg 05/15/17 13:25 Colace - PO HS PRN CONSTIPATION Gabapentin 300 mg 05/15/17 14:00 05/16/17 06:04 Neurontin - PO 300 mg TID SIENA Administration Heparin Sodium (Porcine) 5,000 unit 05/15/17 14:00 05/16/17 06:04 Heparin - SQ 5,000 unit TID SIENA Administration Lidocaine 1 patch 05/16/17 10:00 Lidoderm Patch - TP DAILY SIENA Magnesium Hydroxide 30 ml 05/15/17 06:31 Milk Of Magnesia - PO Q8H PRN INDIGESTION Magnesium Hydroxide 30 ml 05/15/17 14:45 Milk Of Magnesia - PO Q8H PRN CONSTIPATION Metoprolol Tartrate 50 mg 05/15/17 14:00 05/16/17 06:04 Lopressor - PO 50 mg TID SIENA Administration Multivitamins/Minerals/Vitamin C 1 tab 05/16/17 10:00 Tab-A-Vit - PO DAILY [facility] Pantoprazole Sodium 40 mg 05/15/17 22:00 05/15/17 21:26 Protonix - PO 40 mg BID SIENA Administration Polyethylene Glycol 17 gm 05/16/17 10:00 Miralax (For Daily Use) - PO DAILY [facility] Pramipexole Dihydrochloride 0.5 mg 05/15/17 17:00 10/13/17 06:05 Mirapex - PO 0.5 mg 0700,1200,1700 SIENA Administration Pramipexole Dihydrochloride 0.5 mg 05/15/17 22:00 05/15/17 21:26 Mirapex - PO 0.5 mg HS SIENA Administration Senna 2 tab 05/16/17 10:00 Senna - PO DAILY SIENA Sodium Phosphate 133 ml 05/15/17 13:25 Fleet Adult Rectal Enema - RC Q7D PRN CONSTIPATION ASSESSMENT/PLAN: 71 yo m w/ PMH of multiple problems including chronic back pain s/p laminectomy and instrumented fusion on 04/13 who presents to the ED c/o worsening back pain and weakness as well as cough and sore throat. #Pain and weakness in lower extremities likely 2/2 deconditioning vs poor pain control r/o neurological etiology -Neurosurgery consulted -neurology consulted: -avoid narcotics -avoid benzos -ammonia, vit b12m tsh, ckmb levels -TSH, CKMB WNL -pain control w/ iv ibuprofen, flexeril PRN and tylenol 325mg Q6h -physical therapy -MRI of spine -lidoderm patch #nonproductive cough and sore throat likely 2/2 viral etiology -cepachol PRN sore throat -monitor #near syncope likely 2/2 dehydration and poor PO intake -encourage PO intake #constipation -fleet enema PRN Q7D -colace 200mg -senna -milk of magnesia #parkinsons -c/w home sinemet -holding home mirapex as per neuro #afib -metoprolol 50mg TID #FEN -no indication for IVF at this time -monitor lytes -sodium controlled diet #prophylaxsis -protonix 40 PO BID -HSQ 5ku TID #dispo -admitted to med surg -full code Visit type - Emergency Visit Emergency Visit: Yes ED Registration Date: 05/14/17 Care time: The patient presented to the Emergency Department on the above date and was hospitalized for further evaluation of their emergent condition. - New Patient This patient is new to me today: No - Critical Care Critical Care patient: No
[2017-05-16 08:03] LABS: MCH 33.1 pg (25.7-33.7); MEAN CELL VOLUME 100.1 fl (80-96); MEAN PLT VOLUME 8.5 fl (7.5-11.1); PLATELET COUNT 219 K/MM3 (134-434); RDW 17.1 % (11.9-15.9); WHITE BLOOD COUNT 6.1 K/mm3 (4.0-10.0)
[2017-05-16 08:36] LABS: ALBUMIN 2.9 g/dl (3.4-5.0); ALK PHOS 190 U/L (45-117); ANION GAP 6 (8-16); BILIRUBIN,TOTAL 0.6 mg/dL (0.2-1.0); CALCIUM 7.8 mg/dL (8.5-10.1); CO2 26 mmol/L (21-32); CREATININE 1.2 mg/dL (0.7-1.3); GLUCOSE,RANDOM 89 mg/dL (74-106); MAGNESIUM 2.5 mg/dL (1.8-2.4); PHOSPHOROUS 2.6 mg/dL (2.5-4.9); SGOT/AST 22 U/L (15-37); SGPT/ALT 16 U/L (12-78); TOT PROT 5.4 g/dl (6.4-8.2)
[2017-05-16 09:04] LABS: THYROID STIMULATING HORMONE 0.49 uIU/ml (0.358-3.74)
[2017-05-16] MEDS: LIDOCAINE 5% TOPICAL PATCH TP SCH (09:37)
[2017-05-16] MEDS: SENNOSIDES 8.6MG TABLET (FP) PO SCH (09:39)
[2017-05-16] MEDS: PANTOPRAZOLE 40 MG TABLET (FP) PO SCH ×2 (09:39→22:11)
[2017-05-16] MEDS: MULTIVITAMINS (DAILY MVI) TABLET (FP) PO SCH (09:39)
[2017-05-16] MEDS: BENZOCAINE/MENTH/CETYLPYRD CL 1 EACH LOZENGE MM PRN ×2 (09:40→14:38)
[2017-05-16] MEDS: POLYETHYLENE GLYCOL 3350 119 GM BTL PO SCH (09:41)
--- NOTE | 2017-05-16 11:51 | PN ---
Teaching Attending Note Name of Resident: Black Parson ATTENDING PHYSICIAN STATEMENT I saw and evaluated the patient. I reviewed the resident's note and discussed the case with the resident. I agree with the resident's findings and plan as documented. SUBJECTIVE: OBJECTIVE: Vital Signs Period Temp Pulse Resp BP Sys/Suazo Pulse Ox Last 24 Hr 98.0 F-98.5 F 62-70 18-20 97-140/65-75 98 Current Medications Generic Name Dose Route Start Last Admin Trade Name Freq PRN Reason Stop Dose Admin Acetaminophen 325 mg 05/15/17 13:25 Tylenol - PO QID PRN PAIN Benzocaine/Menthol 1 each 05/15/17 11:51 05/16/17 09:40 Cepacol Lozenge - MM 1 each Q6H PRN Administration SORE THROAT Carbidopa/Levodopa 1 combo 05/15/17 17:00 05/16/17 06:05 Sinemet *Cr* 50/200 - PO 1 combo 0700,1200,1700 SIENA Administration Docusate Sodium 200 mg 05/15/17 13:25 Colace - PO HS PRN CONSTIPATION Gabapentin 300 mg 05/15/17 14:00 05/16/17 06:04 Neurontin - PO 300 mg TID SIENA Administration Heparin Sodium (Porcine) 5,000 unit 05/15/17 14:00 05/16/17 06:04 Heparin - SQ 5,000 unit TID SIENA Administration Lidocaine 1 patch 05/16/17 10:00 05/16/17 09:37 Lidoderm Patch - TP 1 patch DAILY SIENA Administration Magnesium Hydroxide 30 ml 05/15/17 06:31 Milk Of Magnesia - PO Q8H PRN INDIGESTION Magnesium Hydroxide 30 ml 05/15/17 14:45 Milk Of Magnesia - PO Q8H PRN CONSTIPATION Metoprolol Tartrate 50 mg 05/15/17 14:00 05/16/17 06:04 Lopressor - PO 50 mg TID SIENA Administration Multivitamins/Minerals/Vitamin C 1 tab 05/16/17 10:00 05/16/17 09:39 Tab-A-Vit - PO 1 tab DAILY SIENA Administration Pantoprazole Sodium 40 mg 05/15/17 22:00 05/16/17 09:39 Protonix - PO 40 mg BID SIENA Administration Polyethylene Glycol 17 gm 05/16/17 10:00 05/16/17 09:41 Miralax (For Daily Use) - PO 17 gm DAILY SIENA Administration Pramipexole Dihydrochloride 0.5 mg 05/15/17 17:00 05/16/17 06:05 Mirapex - PO 0.5 mg 0700,1200,1700 SIENA Administration Pramipexole Dihydrochloride 0.5 mg 05/15/17 22:00 05/15/17 21:26 Mirapex - PO 0.5 mg HS SIENA Administration Senna 2 tab 05/16/17 10:00 05/16/17 09:39 Senna - PO 2 tab DAILY SIENA Administration Sodium Phosphate 133 ml 05/15/17 13:25 Fleet Adult Rectal Enema - RC Q7D PRN CONSTIPATION ASSESSMENT AND PLAN:
--- NOTE | 2017-05-16 12:15 | CONS ---
DATE OF CONSULTATION: 05/16/2017 PHYSICAL MEDICINE REHABILITATION CONSULTATION HISTORY OF PRESENT ILLNESS: The patient is a 71-year-old man who is known from electrodiagnostic consultation who presents with chief complaint of difficulty with mobility due to back pain. Patient was recently admitted, undergoing lumbar surgery in early to mid-April. Patient was subsequently stabilized and discharged to [facility] facility for [facility]. On or about April 29, 2017, per the patient, while at rehab, he was unable to stand or ambulate. He presented back to [facility] emergency room with worsening back pain, generalized weakness, difficulty eating. Per the medical record, he underwent a laminectomy and possible fusion. The patient himself is not a very good historian but states that the leg pain did improve after surgery, but the back pain has worsened. On readmission, he underwent a CAT scan of the lumbar spine on May 14, 2017, which showed posterior fusion T12 to S1 unchanged from prior CAT scan dated April 13, 2017, soft tissue prominence posterior to the lower lumbar spine rule out any collection but evaluation of the spinal canal was very limited due to metallic hardware crossing artifact. Patient did undergo an MRI of the lumbar spine and attempted to look at the images but was unable to view most of the images. Report is pending. Patient was seen by Neurology, underwent a CT of the head which showed generalized volume loss, no acute intracranial pathology, marked ventricular dilatation was again noted and not new from prior study. Patient has normal WBCs, as of yesterday's blood work, 6.5, hemoglobin stable 11.7, platelet count 240. His chemistry is mainly within normal limits except for his total protein is low at 5.5, albumin low at 2.1. C-reactive protein is slightly elevated at 2.3. He has slight elevation of alkaline phosphatase 206 but normal AST 25, ALT 56. Chemistry within normal limits except for calcium low 8.2 which corrects for low albumin of 3.2. On last admission, patient had a B12 level which was normal. Patient, again, does have some weakness in the left more than the right lower extremity as well as some numbness and is now seen in rehabilitation elevation. REVIEW OF PAST MEDICAL AND SURGICAL HISTORY: Chronic back pain and lumbar radiculopathy, recent laminectomy, depression, anxiety, nephrolithiasis, hypertension, chronic kidney disease stage 3, benign prostatic hypertrophy, paroxysmal atrial fibrillation. SOCIAL HISTORY: Per the patient, lives with significant other in a private house but not many stairs to enter. Premobidly he used a walker, but again he has had a hard time since the lumbar surgery even standing let alone walking. REVIEW OF SYSTEMS: He states he does get lightheaded. No dizziness. No blurry vision, double vision that is new, although he states that the right eye has diminished vision. No facial weakness. No nausea, vomiting, difficulty swallowing, difficulty chewing. No chest pain or shortness of breath at rest. He states he does get dyspneic with exertion. He has some abdominal pain and complains of constipation but cannot recall when his last bowel movement was. He is incontinent of urine. He has no numbness, tingling, or weakness of the upper extremities noted, but he is weak in both lower extremities and has some diminished sensation. The left leg is weaker than the right leg per the patient. No skin rash. PHYSICAL EXAMINATION: General: Thin, elderly man who is awake and cooperative. Again, he is not a very good historian, but he is in no acute distress. HEENT: Normocephalic and atraumatic. Extraocular muscles appear intact. Neck: Supple. Extremities: Without any pitting edema or calf tenderness. Neuromuscular: He is awake, alert, oriented to person and place but not the exact date. Cranial nerves II through XII appear grossly intact. He has some arthritic changes in the hands, slight limitation in both of his shoulders, but at least 120 degrees forward flexion, 100 to 110 degrees of abduction. He has good elbow flexion and elbow extension. Strength at least 4+/5 and fairly good curer acid drum strength, 4/5. 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 In the lower extremities, he has 3/5 right hip girdle strength and 2/5 to 3/5 left hip girdle strength at least 3+/5 in the extensor strength on the left and 4/5 on the right, 5/5 dorsiflexion on the right but only 3+/5 on the left. He has diminished sensation in patches including decreased pinprick in L4-L5 distribution in the right lower extremity and L5-S1 in the left lower extremity, possibly L2. Patient has no gross arthritic change in the lower extremities. He does have a thoracolumbosacral incision without any surrounding erythema. There is a dressing without any drainage on the dressing currently. OVERALL IMPRESSION: 1. Deficits in mobility and activities of daily living. 2. Status post thoracolumbosacral laminectomy decompression fusion on April 13, rule out infectious process such as a collection, MRI pending. 3. Left partial footdrop. 4. Deconditioning. 5. History of paroxysmal atrial fibrillation. 6. History of chronic kidney disease stage 3. 7. Benign prostatic hypertrophy/urinary incontinence. 8. Hypoalbuminemia and elevated risk for skin breakdown. PLAN/SUGGESTIONS: 1. Check official MRI report. 2. Will order physical therapy for bedside treatment including isometric strengthening of the lower extremities, bed mobility, transfers, if able gait. 3. Skin precautions. Check heel and sacral areas for erythema or breakdown. 4. Agree with subcutaneous heparin for DVT prophylaxis. 5. On gabapentin, consider increasing to 400 mg 3 times a day based on his level of pain in the lower extremities as well as his renal function. 6. Bowel regimen. He is already written for Senna, MiraLAX, and Fleet enema. Monitor for further constipation. He is also written for Colace and Milk of magnesia. 7. Return to short-term rehab once medically stabilized pending MRI results and Neurosurgical evaluation. Thank you for this referral. DEE CHAVEZ M.D. [place]/[id number]
[2017-05-16] MEDS ORDERED: PT OWN MED DRAWER 7, Y5N ONE (14:51)
[2017-05-16] MEDS ORDERED: IBUPROFEN 800 MG/8 ML IJ IVPB ONE (16:35)
[2017-05-16] MEDS ORDERED: ONDANSETRON 4 MG/2 ML VIAL IVPUSH ONE (16:37)
[2017-05-16] MEDS ORDERED: CYCLOBENZAPRINE HCL 5 MG TABLET PO PRN (16:41)
[2017-05-17] MEDS ORDERED: PT OWN MED DRAWER 7, Y5N ONE ×4 (06:03→17:01)
[2017-05-17] MEDS: HEPARIN NA (PORCINE) 5,000 UNITS/ML 1ML VIAL SQ SCH ×3 (06:08→21:46)
[2017-05-17] MEDS: METOPROLOL TARTRATE 50 MG TABLET (FP) PO SCH ×3 (06:08→21:46)
[2017-05-17] MEDS: GABAPENTIN 300 MG CAPSULE (FP) PO SCH ×3 (06:09→21:46)
[2017-05-17 07:41] LABS: MCH 32.9 pg (25.7-33.7); MCHC 33.1 g/dl (32.0-35.9); MEAN CELL VOLUME 99.5 fl (80-96); MEAN PLT VOLUME 8.2 fl (7.5-11.1); PLATELET COUNT 224 K/MM3 (134-434); RDW 17.1 % (11.9-15.9); WHITE BLOOD COUNT 5.1 K/mm3 (4.0-10.0)
[2017-05-17 08:18] LABS: ALBUMIN 2.9 g/dl (3.4-5.0); ANION GAP 7 (8-16); CALCIUM 8.3 mg/dL (8.5-10.1); CO2 24 mmol/L (21-32); GLUCOSE,RANDOM 86 mg/dL (74-106); MAGNESIUM 2.5 mg/dL (1.8-2.4)
[2017-05-17 08:22] LABS: ALK PHOS 173 U/L (45-117); BILIRUBIN,TOTAL 0.6 mg/dL (0.2-1.0); CREATININE 1.2 mg/dL (0.7-1.3); SGOT/AST 20 U/L (15-37); SGPT/ALT 24 U/L (12-78); TOT PROT 5.3 g/dl (6.4-8.2)
[2017-05-17] MEDS: PANTOPRAZOLE 40 MG TABLET (FP) PO SCH ×2 (09:39→21:46)
[2017-05-17] MEDS: SENNOSIDES 8.6MG TABLET (FP) PO SCH (09:39)
[2017-05-17] MEDS: LIDOCAINE 5% TOPICAL PATCH TP SCH (09:39)
[2017-05-17] MEDS: MULTIVITAMINS (DAILY MVI) TABLET (FP) PO SCH (09:39)
[2017-05-17] MEDS: POLYETHYLENE GLYCOL 3350 119 GM BTL PO SCH (09:40)
[2017-05-17] MEDS: ACETAMINOPHEN 325 MG TABLET (FP) PO PRN (10:00)
[2017-05-17] MEDS ORDERED: IBUPROFEN 800 MG/8 ML IJ IVPB PRN (13:16)
--- NOTE | 2017-05-17 18:51 | PN ---
Teaching Attending Note Name of Resident: Black Parson ATTENDING PHYSICIAN STATEMENT I saw and evaluated the patient. I reviewed the resident's note and discussed the case with the resident. I agree with the resident's findings and plan as documented. SUBJECTIVE: OBJECTIVE: Vital Signs Period Temp Pulse Resp BP Sys/Suazo Pulse Ox Last 24 Hr 97.5 F-98.3 F 59-72 18-20 111-135/50-79 98 Current Medications Generic Name Dose Route Start Last Admin Trade Name Freq PRN Reason Stop Dose Admin Acetaminophen 325 mg 05/15/17 13:25 05/17/17 10:00 Tylenol - PO 325 mg QID PRN Administration PAIN Benzocaine/Menthol 1 each 05/15/17 11:51 05/16/17 14:38 Cepacol Lozenge - MM 1 each Q6H PRN Administration SORE THROAT Carbidopa/Levodopa 1 combo 05/15/17 17:00 05/17/17 17:02 Sinemet *Cr* 50/200 - PO 1 combo 0700,1200,1700 SIENA Administration Docusate Sodium 200 mg 05/15/17 13:25 Colace - PO HS PRN CONSTIPATION Gabapentin 300 mg 05/15/17 14:00 05/17/17 13:34 Neurontin - PO 300 mg TID SIENA Administration Heparin Sodium (Porcine) 5,000 unit 05/15/17 14:00 05/17/17 13:34 Heparin - SQ 5,000 unit TID SIENA Administration Ibuprofen 600 mg 05/17/17 13:16 05/17/17 14:18 Caldolor Injection - IVPB 600 mg ONCE PRN Administration PAIN Lidocaine 1 patch 05/16/17 10:00 05/17/17 09:39 Lidoderm Patch - TP 1 patch DAILY SIENA Administration Magnesium Hydroxide 30 ml 05/15/17 06:31 Milk Of Magnesia - PO Q8H PRN INDIGESTION Magnesium Hydroxide 30 ml 05/15/17 14:45 Milk Of Magnesia - PO Q8H PRN CONSTIPATION Metoprolol Tartrate 50 mg 05/15/17 14:00 05/17/17 13:34 Lopressor - PO 50 mg TID SIENA Administration Multivitamins/Minerals/Vitamin C 1 tab 05/16/17 10:00 05/17/17 09:39 Tab-A-Vit - PO 1 tab DAILY SIENA Administration Pantoprazole Sodium 40 mg 05/15/17 22:00 05/17/17 09:39 Protonix - PO 40 mg BID SIENA Administration Polyethylene Glycol 17 gm 05/16/17 10:00 05/17/17 09:40 Miralax (For Daily Use) - PO 17 gm DAILY SIENA Administration Pramipexole Dihydrochloride 0.5 mg 05/15/17 17:00 05/16/17 06:05 Mirapex - PO 0.5 mg 0700,1200,1700 SIENA Administration Pramipexole Dihydrochloride 0.5 mg 05/15/17 22:00 05/15/17 21:26 Mirapex - PO 0.5 mg HS SIENA Administration Senna 2 tab 05/16/17 10:00 05/17/17 09:39 Senna - PO 2 tab DAILY SIENA Administration Sodium Phosphate 133 ml 05/15/17 13:25 Fleet Adult Rectal Enema - RC Q7D PRN CONSTIPATION ASSESSMENT AND PLAN:
--- NOTE | 2017-05-17 19:49 | PN ---
Physical Exam: SUBJECTIVE: Patient seen and examined OBJECTIVE: Vital Signs Period Temp Pulse Resp BP Sys/Suazo Pulse Ox Last 24 Hr 97.5 F-98.3 F 59-72 18-20 111-135/50-79 98 GENERAL: The patient is awake, alert, and fully oriented, in no acute distress. HEAD: Normal with no signs of trauma. EYES: PERRL, extraocular movements intact, sclera anicteric, conjunctiva clear. No ptosis. ENT: Ears normal, nares patent, oropharynx clear without exudates, moist mucous membranes. NECK: Trachea midline, full range of motion, supple. LUNGS: Breath sounds equal, clear to auscultation bilaterally, no wheezes, no crackles, no accessory muscle use. HEART: Regular rate and rhythm, S1, S2 without murmur, rub or gallop. ABDOMEN: Soft, nontender, nondistended, normoactive bowel sounds, no guarding, no rebound, no hepatosplenomegaly, no masses. EXTREMITIES: 2+ pulses, warm, well-perfused, no edema. NEUROLOGICAL: Cranial nerves II through XII grossly intact. Normal speech, gait not observed. PSYCH: Normal mood, normal affect. SKIN: Warm, dry, normal turgor, no rashes or lesions noted Laboratory Results - last 24 hr 05/17/17 05/17/17 05/17/17 06:50 06:50 06:50 WBC 5.1 RBC 3.47 L Hgb 11.4 L Hct 34.5 L MCV 99.5 H MCH 32.9 MCHC 33.1 RDW 17.1 H Plt Count 224 MPV 8.2 Sodium 141 Potassium 4.0 Chloride 110 H Carbon Dioxide 24 Anion Gap 7 L BUN 17 Creatinine 1.2 Creat Clearance w eGFR 59.35 Random Glucose 86 Calcium 8.3 L Phosphorus 3.0 Magnesium 2.5 H Total Bilirubin 0.6 AST 20 ALT 24 D Alkaline Phosphatase 173 H Ammonia 11.3 Total Protein 5.3 L Albumin 2.9 L Active Medications Generic Name Dose Route Start Last Admin Trade Name Freq PRN Reason Stop Dose Admin Acetaminophen 325 mg 05/15/17 13:25 05/17/17 10:00 Tylenol - PO 325 mg QID PRN Administration PAIN Benzocaine/Menthol 1 each 05/15/17 11:51 05/16/17 14:38 Cepacol Lozenge - MM 1 each Q6H PRN Administration SORE THROAT Carbidopa/Levodopa 1 combo 05/15/17 17:00 05/17/17 17:02 Sinemet *Cr* 50/200 - PO 1 combo 0700,1200,1700 SIENA Administration Docusate Sodium 200 mg 05/15/17 13:25 Colace - PO HS PRN CONSTIPATION Gabapentin 300 mg 05/15/17 14:00 05/17/17 13:34 Neurontin - PO 300 mg TID SIENA Administration Heparin Sodium (Porcine) 5,000 unit 05/15/17 14:00 05/17/17 13:34 Heparin - SQ 5,000 unit TID SIENA Administration Ibuprofen 600 mg 05/17/17 13:16 05/17/17 14:18 Caldolor Injection - IVPB 600 mg ONCE PRN Administration PAIN Lidocaine 1 patch 05/16/17 10:00 05/17/17 09:39 Lidoderm Patch - TP 1 patch DAILY SIENA Administration Magnesium Hydroxide 30 ml 05/15/17 06:31 Milk Of Magnesia - PO Q8H PRN INDIGESTION Magnesium Hydroxide 30 ml 05/15/17 14:45 Milk Of Magnesia - PO Q8H PRN CONSTIPATION Metoprolol Tartrate 50 mg 05/15/17 14:00 05/17/17 13:34 Lopressor - PO 50 mg TID SIENA Administration Multivitamins/Minerals/Vitamin C 1 tab 05/16/17 10:00 05/17/17 09:39 Tab-A-Vit - PO 1 tab DAILY SIENA Administration Pantoprazole Sodium 40 mg 05/15/17 22:00 05/17/17 09:39 Protonix - PO 40 mg BID SIENA Administration Polyethylene Glycol 17 gm 05/16/17 10:00 05/17/17 09:40 Miralax (For Daily Use) - PO 17 gm DAILY SIENA Administration Pramipexole Dihydrochloride 0.5 mg 05/15/17 17:00 05/16/17 06:05 Mirapex - PO 0.5 mg 0700,1200,1700 SIENA Administration Pramipexole Dihydrochloride 0.5 mg 05/15/17 22:00 05/15/17 21:26 Mirapex - PO 0.5 mg HS SIENA Administration Senna 2 tab 05/16/17 10:00 05/17/17 09:39 Senna - PO 2 tab DAILY SIENA Administration Sodium Phosphate 133 ml 05/15/17 13:25 Fleet Adult Rectal Enema - RC Q7D PRN CONSTIPATION ASSESSMENT/PLAN: 71 yo m w/ PMH of multiple problems including chronic back pain s/p laminectomy and instrumented fusion on 04/13 who presents to the ED c/o worsening back pain and weakness as well as cough and sore throat. #Pain and weakness in lower extremities likely 2/2 deconditioning vs poor pain control r/o neurological etiology -Neurosurgery consulted -neurology consulted: -avoid narcotics -avoid benzos -ammonia, vit b12m tsh, ckmb levels -TSH, CKMB WNL -pain control w/ iv ibuprofen, and tylenol 325mg PRN Q6h -physical therapy -MRI of spine -lidoderm patch #nonproductive cough and sore throat likely 2/2 viral etiology -cepachol PRN sore throat -monitor #near syncope likely 2/2 dehydration and poor PO intake -encourage PO intake #constipation -fleet enema PRN Q7D -colace 200mg -senna -milk of magnesia #parkinsons -c/w home sinemet -holding home mirapex as per neuro #afib -metoprolol 50mg TID #FEN -no indication for IVF at this time -monitor lytes -sodium controlled diet #prophylaxsis -protonix 40 PO BID -HSQ 5ku TID #dispo -admitted to med surg -full code Visit type - Emergency Visit Emergency Visit: Yes ED Registration Date: 05/14/17 Care time: The patient presented to the Emergency Department on the above date and was hospitalized for further evaluation of their emergent condition. - New Patient This patient is new to me today: No - Critical Care Critical Care patient: No
[2017-05-17] MEDS ORDERED: MAGNESIUM OXIDE 400 MG TABLET (FP) PO ONE (19:51)
[2017-05-18] MEDS: ACETAMINOPHEN 325 MG TABLET (FP) PO PRN ×3 (00:25→16:45)
[2017-05-18] MEDS ORDERED: PT OWN MED DRAWER 7, Y5N ONE ×4 (05:56→16:13)
[2017-05-18] MEDS: PRAMIPEXOLE DIHYDROCHLORIDE 0.5 MG TABLET PO SCH ×4 (06:25→23:28)
[2017-05-18] MEDS: METOPROLOL TARTRATE 50 MG TABLET (FP) PO SCH ×3 (06:25→23:28)
[2017-05-18] MEDS: HEPARIN NA (PORCINE) 5,000 UNITS/ML 1ML VIAL SQ SCH ×3 (06:26→23:28)
[2017-05-18] MEDS: GABAPENTIN 300 MG CAPSULE (FP) PO SCH ×3 (06:26→23:28)
[2017-05-18 08:14] LABS: ANION GAP 8 (8-16); CO2 24 mmol/L (21-32); GLUCOSE,RANDOM 91 mg/dL (74-106); MAGNESIUM 2.5 mg/dL (1.8-2.4); PHOSPHOROUS 2.8 mg/dL (2.5-4.9)
[2017-05-18] MEDS: LIDOCAINE 5% TOPICAL PATCH TP SCH (09:38)
[2017-05-18] MEDS: POLYETHYLENE GLYCOL 3350 119 GM BTL PO SCH (09:39)
[2017-05-18] MEDS: MULTIVITAMINS (DAILY MVI) TABLET (FP) PO SCH (09:40)
[2017-05-18] MEDS: SENNOSIDES 8.6MG TABLET (FP) PO SCH (09:40)
[2017-05-18] MEDS: PANTOPRAZOLE 40 MG TABLET (FP) PO SCH ×2 (09:41→23:27)
--- NOTE | 2017-05-18 12:36 | PN ---
Physical Exam: SUBJECTIVE: Patient seen and examined OBJECTIVE: Vital Signs Period Temp Pulse Resp BP Sys/Suazo Pulse Ox Last 24 Hr 97.7 F-98.6 F 60-71 18-20 107-135/60-80 98-98 GENERAL: The patient is awake, alert, and fully oriented, in no acute distress. HEAD: Normal with no signs of trauma. EYES: PERRL, extraocular movements intact, sclera anicteric, conjunctiva clear. No ptosis. ENT: Ears normal, nares patent, oropharynx clear without exudates, moist mucous membranes. NECK: Trachea midline, full range of motion, supple. LUNGS: Breath sounds equal, clear to auscultation bilaterally, no wheezes, no crackles, no accessory muscle use. HEART: Regular rate and rhythm, S1, S2 without murmur, rub or gallop. ABDOMEN: Soft, nontender, nondistended, normoactive bowel sounds, no guarding, no rebound, no hepatosplenomegaly, no masses. EXTREMITIES: 2+ pulses, warm, well-perfused, no edema. NEUROLOGICAL: Cranial nerves II through XII grossly intact. Normal speech, gait not observed. PSYCH: Normal mood, normal affect. SKIN: Warm, dry, normal turgor, no rashes or lesions noted Laboratory Results - last 24 hr 05/18/17 07:25 Sodium 142 Potassium 4.4 Chloride 110 H Carbon Dioxide 24 Anion Gap 8 BUN 16 Creatinine 1.0 Random Glucose 91 Calcium 8.0 L Phosphorus 2.8 Magnesium 2.5 H Active Medications Generic Name Dose Route Start Last Admin Trade Name Freq PRN Reason Stop Dose Admin Acetaminophen 325 mg 05/15/17 13:25 05/18/17 09:41 Tylenol - PO 325 mg QID PRN Administration PAIN Benzocaine/Menthol 1 each 05/15/17 11:51 05/16/17 14:38 Cepacol Lozenge - MM 1 each Q6H PRN Administration SORE THROAT Carbidopa/Levodopa 1 combo 05/15/17 17:00 05/18/17 11:20 Sinemet *Cr* 50/200 - PO 1 combo 0700,1200,1700 SIENA Administration Docusate Sodium 200 mg 05/15/17 13:25 Colace - PO HS PRN CONSTIPATION Gabapentin 300 mg 05/15/17 14:00 05/18/17 06:26 Neurontin - PO 300 mg TID SIENA Administration Heparin Sodium (Porcine) 5,000 unit 05/15/17 14:00 05/18/17 06:26 Heparin - SQ 5,000 unit TID SIENA Administration Ibuprofen 600 mg 05/17/17 13:16 05/17/17 14:18 Caldolor Injection - IVPB 600 mg ONCE PRN Administration PAIN Lidocaine 1 patch 05/16/17 10:00 05/18/17 09:38 Lidoderm Patch - TP 1 patch DAILY SIENA Administration Magnesium Hydroxide 30 ml 05/15/17 06:31 Milk Of Magnesia - PO Q8H PRN INDIGESTION Magnesium Hydroxide 30 ml 05/15/17 14:45 Milk Of Magnesia - PO Q8H PRN CONSTIPATION Metoprolol Tartrate 50 mg 05/15/17 14:00 05/18/17 06:25 Lopressor - PO 50 mg TID SIENA Administration Multivitamins/Minerals/Vitamin C 1 tab 05/16/17 10:00 05/18/17 09:40 Tab-A-Vit - PO 1 tab DAILY SIENA Administration Pantoprazole Sodium 40 mg 05/15/17 22:00 05/18/17 09:41 Protonix - PO 40 mg BID SIENA Administration Polyethylene Glycol 17 gm 05/16/17 10:00 05/18/17 09:39 Miralax (For Daily Use) - PO 17 gm DAILY SIENA Administration Pramipexole Dihydrochloride 0.5 mg 05/15/17 17:00 05/18/17 11:20 Mirapex - PO 0.5 mg 0700,1200,1700 SIENA Administration Pramipexole Dihydrochloride 0.5 mg 05/15/17 22:00 05/15/17 21:26 Mirapex - PO 0.5 mg HS SIENA Administration Senna 2 tab 05/16/17 10:00 05/18/17 09:40 Senna - PO 2 tab DAILY SIENA Administration Sodium Phosphate 133 ml 05/15/17 13:25 Fleet Adult Rectal Enema - RC Q7D PRN CONSTIPATION ASSESSMENT/PLAN:
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
[2017-05-19] MEDS ORDERED: PT OWN MED DRAWER 7, Y5N ONE ×3 (06:56→17:09)
[2017-05-19] MEDS: PRAMIPEXOLE DIHYDROCHLORIDE 0.5 MG TABLET PO SCH ×4 (07:04→21:28)
[2017-05-19] MEDS: HEPARIN NA (PORCINE) 5,000 UNITS/ML 1ML VIAL SQ SCH ×3 (07:04→21:27)
[2017-05-19] MEDS: METOPROLOL TARTRATE 50 MG TABLET (FP) PO SCH ×3 (07:04→21:27)
[2017-05-19] MEDS: GABAPENTIN 300 MG CAPSULE (FP) PO SCH ×3 (07:05→21:28)
[2017-05-19] MEDS: LIDOCAINE 5% TOPICAL PATCH TP SCH (09:04)
[2017-05-19] MEDS: MULTIVITAMINS (DAILY MVI) TABLET (FP) PO SCH (09:05)
[2017-05-19] MEDS: ACETAMINOPHEN 325 MG TABLET (FP) PO PRN ×3 (09:05→22:23)
[2017-05-19] MEDS: PANTOPRAZOLE 40 MG TABLET (FP) PO SCH ×2 (09:05→21:28)
[2017-05-19] MEDS: POLYETHYLENE GLYCOL 3350 119 GM BTL PO SCH (09:06)
[2017-05-19] MEDS: SENNOSIDES 8.6MG TABLET (FP) PO SCH (09:06)
--- NOTE | 2017-05-19 15:17 | PN ---
Physical Exam: SUBJECTIVE: Patient seen and examined OBJECTIVE: Vital Signs Period Temp Pulse Resp BP Sys/Suazo Pulse Ox Last 24 Hr 97.8 F-98.5 F 60-82 17-20 122-130/64-80 94-97 GENERAL: The patient is awake, alert, and fully oriented, in no acute distress. HEAD: Normal with no signs of trauma. EYES: PERRL, extraocular movements intact, sclera anicteric, conjunctiva clear. No ptosis. ENT: Ears normal, nares patent, oropharynx clear without exudates, moist mucous membranes. NECK: Trachea midline, full range of motion, supple. LUNGS: Breath sounds equal, clear to auscultation bilaterally, no wheezes, no crackles, no accessory muscle use. HEART: Regular rate and rhythm, S1, S2 without murmur, rub or gallop. ABDOMEN: Soft, nontender, nondistended, normoactive bowel sounds, no guarding, no rebound, no hepatosplenomegaly, no masses. EXTREMITIES: 2+ pulses, warm, well-perfused, no edema. NEUROLOGICAL: Cranial nerves II through XII grossly intact. Normal speech, gait not observed. PSYCH: Normal mood, normal affect. SKIN: Warm, dry, normal turgor, no rashes or lesions noted Active Medications Generic Name Dose Route Start Last Admin Trade Name Urbanq PRN Reason Stop Dose Admin Acetaminophen 325 mg 05/15/17 13:25 05/19/17 09:05 Tylenol - PO 325 mg QID PRN Administration PAIN Benzocaine/Menthol 1 each 05/15/17 11:51 05/16/17 14:38 Cepacol Lozenge - MM 1 each Q6H PRN Administration SORE THROAT Carbidopa/Levodopa 1 combo 05/15/17 17:00 05/19/17 11:53 Sinemet *Cr* 50/200 - PO 1 combo 0700,1200,1700 SIENA Administration Docusate Sodium 200 mg 05/15/17 13:25 Colace - PO HS PRN CONSTIPATION Gabapentin 300 mg 05/15/17 14:00 05/19/17 14:43 Neurontin - PO 300 mg TID SIENA Administration Heparin Sodium (Porcine) 5,000 unit 05/15/17 14:00 05/19/17 14:43 Heparin - SQ 5,000 unit TID SIENA Administration Ibuprofen 600 mg 05/17/17 13:16 05/17/17 14:18 Caldolor Injection - IVPB 600 mg ONCE PRN Administration PAIN Lidocaine 1 patch 05/16/17 10:00 05/19/17 09:04 Lidoderm Patch - TP 1 patch DAILY SIENA Administration Magnesium Hydroxide 30 ml 05/15/17 14:45 Milk Of Magnesia - PO Q8H PRN CONSTIPATION Metoprolol Tartrate 50 mg 05/15/17 14:00 05/19/17 14:43 Lopressor - PO 50 mg TID SIENA Administration Multivitamins/Minerals/Vitamin C 1 tab 05/16/17 10:00 05/19/17 09:05 Tab-A-Vit - PO 1 tab DAILY SIENA Administration Pantoprazole Sodium 40 mg 05/15/17 22:00 05/19/17 09:05 Protonix - PO 40 mg BID SIENA Administration Polyethylene Glycol 17 gm 05/16/17 10:00 05/19/17 09:06 Miralax (For Daily Use) - PO 17 gm DAILY SIENA Administration Pramipexole Dihydrochloride 0.5 mg 05/15/17 17:00 05/19/17 11:53 Mirapex - PO 0.5 mg 0700,1200,1700 SIENA Administration Pramipexole Dihydrochloride 0.5 mg 05/15/17 22:00 05/18/17 23:28 Mirapex - PO 0.5 mg HS SIENA Administration Senna 2 tab 05/16/17 10:00 05/19/17 09:06 Senna - PO 2 tab DAILY SIENA Administration Sodium Phosphate 133 ml 05/15/17 13:25 Fleet Adult Rectal Enema - RC Q7D PRN CONSTIPATION ASSESSMENT/PLAN: 71 yo m w/ PMH of multiple problems including chronic back pain s/p laminectomy and instrumented fusion on 04/13 who presents to the ED c/o worsening back pain and weakness as well as cough and sore throat. #Pain and weakness in lower extremities likely 2/2 deconditioning vs poor pain control r/o neurological etiology -Neurosurgery consulted -neurology consulted: -avoid narcotics -avoid benzos -ammonia, vit b12m tsh, ckmb levels -TSH, CKMB WNL -pain control w/ iv ibuprofen, and tylenol 325mg PRN Q6h -physical therapy -MRI of spine -lidoderm patch #nonproductive cough and sore throat likely 2/2 viral etiology -cepachol PRN sore throat -monitor #near syncope likely 2/2 dehydration and poor PO intake -encourage PO intake #constipation -fleet enema PRN Q7D -colace 200mg -senna -milk of magnesia #parkinsons -c/w home sinemet -holding home mirapex as per neuro #afib -metoprolol 50mg TID #FEN -no indication for IVF at this time -monitor lytes -sodium controlled diet #prophylaxsis -protonix 40 PO BID -HSQ 5ku TID #dispo -admitted to med surg -discharge planning to [facility] Visit type - Emergency Visit Emergency Visit: Yes ED Registration Date: 05/14/17 Care time: The patient presented to the Emergency Department on the above date and was hospitalized for further evaluation of their emergent condition. - New Patient This patient is new to me today: No - Critical Care Critical Care patient: No
--- NOTE | 2017-05-19 18:20 | PN ---
Teaching Attending Note Name of Resident: Black Parson ATTENDING PHYSICIAN STATEMENT I saw and evaluated the patient. I reviewed the resident's note and discussed the case with the resident. I agree with the resident's findings and plan as documented. SUBJECTIVE: OBJECTIVE: Vital Signs Period Temp Pulse Resp BP Sys/Suazo Pulse Ox Last 24 Hr 97.8 F-98.5 F 60-82 17-20 122-130/63-80 94-97 Current Medications Generic Name Dose Route Start Last Admin Trade Name Freq PRN Reason Stop Dose Admin Acetaminophen 325 mg 05/15/17 13:25 05/19/17 15:41 Tylenol - PO 325 mg QID PRN Administration PAIN Benzocaine/Menthol 1 each 05/15/17 11:51 05/16/17 14:38 Cepacol Lozenge - MM 1 each Q6H PRN Administration SORE THROAT Carbidopa/Levodopa 1 combo 05/15/17 17:00 05/19/17 17:11 Sinemet *Cr* 50/200 - PO 1 combo 0700,1200,1700 SIENA Administration Docusate Sodium 200 mg 05/15/17 13:25 Colace - PO HS PRN CONSTIPATION Gabapentin 300 mg 05/15/17 14:00 05/19/17 14:43 Neurontin - PO 300 mg TID SIENA Administration Heparin Sodium (Porcine) 5,000 unit 05/15/17 14:00 05/19/17 14:43 Heparin - SQ 5,000 unit TID SEINA Administration Ibuprofen 600 mg 05/17/17 13:16 05/17/17 14:18 Caldolor Injection - IVPB 600 mg ONCE PRN Administration PAIN Lidocaine 1 patch 05/16/17 10:00 05/19/17 09:04 Lidoderm Patch - TP 1 patch DAILY SIENA Administration Magnesium Hydroxide 30 ml 05/15/17 14:45 Milk Of Magnesia - PO Q8H PRN CONSTIPATION Metoprolol Tartrate 50 mg 05/15/17 14:00 05/19/17 14:43 Lopressor - PO 50 mg TID SIENA Administration Multivitamins/Minerals/Vitamin C 1 tab 05/16/17 10:00 05/19/17 09:05 Tab-A-Vit - PO 1 tab DAILY SIENA Administration Pantoprazole Sodium 40 mg 05/15/17 22:00 05/19/17 09:05 Protonix - PO 40 mg BID SIENA Administration Polyethylene Glycol 17 gm 05/16/17 10:00 05/19/17 09:06 Miralax (For Daily Use) - PO 17 gm DAILY SIENA Administration Pramipexole Dihydrochloride 0.5 mg 05/15/17 17:00 05/19/17 17:11 Mirapex - PO 0.5 mg 0700,1200,1700 SIENA Administration Pramipexole Dihydrochloride 0.5 mg 05/15/17 22:00 05/18/17 23:28 Mirapex - PO 0.5 mg HS SIEAN Administration Senna 2 tab 05/16/17 10:00 05/19/17 09:06 Senna - PO 2 tab DAILY SIENA Administration Sodium Phosphate 133 ml 05/15/17 13:25 Fleet Adult Rectal Enema - RC Q7D PRN CONSTIPATION ASSESSMENT AND PLAN:
[2017-05-19] MEDS ORDERED: IBUPROFEN 800 MG/8 ML IJ IVPB PRN (23:40)
[2017-05-20] MEDS: METOPROLOL TARTRATE 50 MG TABLET (FP) PO SCH ×2 (06:01→14:00)
[2017-05-20] MEDS: HEPARIN NA (PORCINE) 5,000 UNITS/ML 1ML VIAL SQ SCH ×2 (06:01→14:01)
[2017-05-20] MEDS: GABAPENTIN 300 MG CAPSULE (FP) PO SCH ×2 (06:01→14:01)
[2017-05-20] MEDS: PRAMIPEXOLE DIHYDROCHLORIDE 0.5 MG TABLET PO SCH ×2 (06:02→11:58)
--- NOTE | 2017-05-20 06:28 | PN ---
Physical Exam: SUBJECTIVE: Patient seen and examined OBJECTIVE: Vital Signs Period Temp Pulse Resp BP Sys/Suazo Pulse Ox Last 24 Hr 97.8 F-98.2 F 59-81 17-20 118-128/62-77 97-97 GENERAL: The patient is awake, alert, and fully oriented, in no acute distress. HEAD: Normal with no signs of trauma. EYES: PERRL, extraocular movements intact, sclera anicteric, conjunctiva clear. No ptosis. ENT: Ears normal, nares patent, oropharynx clear without exudates, moist mucous membranes. NECK: Trachea midline, full range of motion, supple. LUNGS: Breath sounds equal, clear to auscultation bilaterally, no wheezes, no crackles, no accessory muscle use. HEART: Regular rate and rhythm, S1, S2 without murmur, rub or gallop. ABDOMEN: Soft, nontender, nondistended, normoactive bowel sounds, no guarding, no rebound, no hepatosplenomegaly, no masses. EXTREMITIES: 2+ pulses, warm, well-perfused, no edema. NEUROLOGICAL: Cranial nerves II through XII grossly intact. Normal speech, gait not observed. PSYCH: Normal mood, normal affect. SKIN: Warm, dry, normal turgor, no rashes or lesions noted Active Medications Generic Name Dose Route Start Last Admin Trade Name Freq PRN Reason Stop Dose Admin Acetaminophen 325 mg 05/15/17 13:25 05/19/17 22:23 Tylenol - PO 325 mg QID PRN Administration PAIN Benzocaine/Menthol 1 each 05/15/17 11:51 05/16/17 14:38 Cepacol Lozenge - MM 1 each Q6H PRN Administration SORE THROAT Carbidopa/Levodopa 1 combo 05/15/17 17:00 05/20/17 06:02 Sinemet *Cr* 50/200 - PO 1 combo 0700,1200,1700 SIENA Administration Docusate Sodium 200 mg 05/15/17 13:25 Colace - PO HS PRN CONSTIPATION Gabapentin 300 mg 05/15/17 14:00 05/20/17 06:01 Neurontin - PO 300 mg TID SIENA Administration Heparin Sodium (Porcine) 5,000 unit 05/15/17 14:00 05/20/17 06:01 Heparin - SQ 5,000 unit TID SIENA Administration Lidocaine 1 patch 05/16/17 10:00 05/19/17 09:04 Lidoderm Patch - TP 1 patch DAILY SIENA Administration Magnesium Hydroxide 30 ml 05/15/17 14:45 Milk Of Magnesia - PO Q8H PRN CONSTIPATION Metoprolol Tartrate 50 mg 05/15/17 14:00 05/20/17 06:01 Lopressor - PO 50 mg TID SIENA Administration Multivitamins/Minerals/Vitamin C 1 tab 05/16/17 10:00 05/19/17 09:05 Tab-A-Vit - PO 1 tab DAILY SIENA Administration Pantoprazole Sodium 40 mg 05/15/17 22:00 05/19/17 21:28 Protonix - PO 40 mg BID SIENA Administration Polyethylene Glycol 17 gm 05/16/17 10:00 05/19/17 09:06 Miralax (For Daily Use) - PO 17 gm DAILY SIENA Administration Pramipexole Dihydrochloride 0.5 mg 05/15/17 17:00 05/20/17 06:02 Mirapex - PO 0.5 mg 0700,1200,1700 SIENA Administration Pramipexole Dihydrochloride 0.5 mg 05/15/17 22:00 05/19/17 21:28 Mirapex - PO 0.5 mg HS SIENA Administration Senna 2 tab 05/16/17 10:00 05/19/17 09:06 Senna - PO 2 tab DAILY SIENA Administration Sodium Phosphate 133 ml 05/15/17 13:25 Fleet Adult Rectal Enema - RC Q7D PRN CONSTIPATION ASSESSMENT/PLAN: 71 yo m w/ PMH of multiple problems including chronic back pain s/p laminectomy and instrumented fusion on 04/13 who presents to the ED c/o worsening back pain and weakness as well as cough and sore throat. #Pain and weakness in lower extremities likely 2/2 deconditioning vs poor pain control r/o neurological etiology -Neurosurgery consulted -neurology consulted: -avoid narcotics -avoid benzos -ammonia, vit b12m tsh, ckmb levels -TSH, CKMB WNL -pain control w/ iv ibuprofen, and tylenol 325mg PRN Q6h -physical therapy -MRI of spine -lidoderm patch #nonproductive cough and sore throat likely 2/2 viral etiology -cepachol PRN sore throat -monitor #near syncope likely 2/2 dehydration and poor PO intake -encourage PO intake #constipation -fleet enema PRN Q7D -colace 200mg -senna -milk of magnesia #parkinsons -c/w home sinemet -holding home mirapex as per neuro #afib -metoprolol 50mg TID #FEN -no indication for IVF at this time -monitor lytes -sodium controlled diet #prophylaxsis -protonix 40 PO BID -HSQ 5ku TID #dispo -admitted to med surg -discharge planning to [facility]
[2017-05-20 08:58] VITALS: TEMP 97.9
[2017-05-20] MEDS: PANTOPRAZOLE 40 MG TABLET (FP) PO SCH (09:36)
[2017-05-20] MEDS: MULTIVITAMINS (DAILY MVI) TABLET (FP) PO SCH (09:36)
[2017-05-20] MEDS: LIDOCAINE 5% TOPICAL PATCH TP SCH (09:36)
[2017-05-20] MEDS: POLYETHYLENE GLYCOL 3350 119 GM BTL PO SCH (09:36)
[2017-05-20] MEDS: SENNOSIDES 8.6MG TABLET (FP) PO SCH (09:37)
[2017-05-20] MEDS ORDERED: PT OWN MED DRAWER 7, Y5N ONE ×2 (11:56→17:43)
[2017-05-20 13:56] VITALS: BP 114/70; PULSE 64
[2017-05-20] MEDS: ACETAMINOPHEN 325 MG TABLET (FP) PO PRN (14:00)
--- NOTE | 2017-05-20 14:39 | DS ---
Physical Exam: SUBJECTIVE: Patient seen and examined at bedside. His pain is controlled off narcotics OBJECTIVE: Vital Signs Period Temp Pulse Resp BP Sys/Suazo Pulse Ox Last 24 Hr 97.9 F-98.1 F 57-81 20-20 114-141/62-74 95-97 PHYSICAL EXAM GENERAL: The patient is awake, alert, and fully oriented, in no acute distress. HEAD: Normal with no signs of trauma. EYES: extraocular movements intact, sclera anicteric, conjunctiva clear. NECK: Trachea midline, full range of motion, supple. LUNGS: Breath sounds equal, clear to auscultation bilaterally, no wheezes, no crackles, no accessory muscle use. HEART: Regular rate and rhythm, S1, S2 without murmur, rub or gallop. ABDOMEN: Soft, nontender, nondistended, normoactive bowel sounds, no guarding, no rebound, no hepatosplenomegaly, no masses. EXTREMITIES: 2+ pulses, warm, well-perfused, no edema. NEUROLOGICAL: Cranial nerves II through X grossly intact. Normal speech, gait not observed. SKIN: Warm, dry, normal turgor, no rashes or lesions noted. LABS HOSPITAL COURSE: Date of Admission:05/14/17 The patient is a 71 yo m w/ PMH paroxysmal afib, chronic back pain, HTN, CKD3, BPH presents to the ED from [facility] complaining of generalized weakness as well as increasing leg and back pain. He had a recent admission to [facility] for a laminectomy and fusion on 04/13. He was admitted for the evaluation of this weakness. A CT head was negative for acute processes. Neurology was consulted. They suggested that the patient be taken off of narcotics. A lumbar spine CT showed evidence of previous surgery as well as a poorly defined soft tissue prominence. An MRI of the area showed a nonspecific fluid collection at the t3 and t4 laminectomy sites. Neurosurgery was consulted, who stated that the MRI findings were expected and that the patient is stable to discharge to [facility]. The patient was treated with tylenol and IV caldolor as well as his home medications. Patient improved with physical therapy while in the hospital and was discharged to [facility] for further physical therapy. Date of Discharge: 05/20/17 Minutes to complete discharge: 20 Discharge Summary Reason For Visit: BACK PAIN Current Active Problems Anemia (Acute) Atypical chest pain (Acute) BPH (benign prostatic hyperplasia) (Acute) Chronic obstructive pulmonary disease (COPD) (Acute) Diverticulosis (Acute) Parkinson disease (Acute) S/P laminectomy (Acute) Syncope (Acute) Systolic CHF (Acute) Back pain (Chronic) Carotid stenosis (Chronic) Depression (Chronic) HTN (hypertension) (Chronic) Hyperlipidemia (Chronic) LBBB (left bundle branch block) (Chronic) Osteoarthritis (Chronic) Polysubstance (excluding opioids) dependence (Chronic) SVT (supraventricular tachycardia) (Chronic) Condition: Improved - Instructions Diet, Activity, Other Instructions: You were admitted for your back and leg pain. You are being transferred to a rehab facility so that you can get physical therapy and continue to improve. We are continuing all of the medications you have been on except for your Percocet. We have sent the list to the new rehab facility so that they can give your medications to you starting tomorrow. Please try to participate in rehab as this will help you feel better and will improve your pain. You should follow up with your primary care doctor within one week. You should also follow up with Dr. Mack to check on how your back and legs are healing. If you experience fever, chills or if you pain gets very bad very quickly, please call your doctor or return to the ED. Referrals: Mynor Gibbons MD [Primary Care Provider] - Nilesh Queen MD, [facility] [Staff Physician] - Disposition: LONGTERM FACILITY - Home Medications Comprehensive Discharge Medication List: Ambulatory Orders Pantoprazole Sodium [Protonix -] 40 mg PO BID #60 tablet.ec 07/26/15 Alendronate Na [Fosamax (Weekly)] 70 mg PO WEEKLY 08/22/16 Magnesium Hydrox 2400MG/30Ml [Milk of Magnesia -] 30 ml PO Q8H PRN 01/11/17 Sennosides [Senna -] 2 tab PO DAILY #30 tablet 01/16/17 Sodium Phosphate/Na Biphos [Fleet Adult Rectal Enema -] 133 ml RC WEEKLY PRN #4 enema 01/16/17 Carbidopa/Levodopa *Cr* 50/200 [Sinemet *Cr* 50/200 -] 1 combo PO 0700,1200, 1700 #30 tab 04/29/17 Ferrous Sulfate [Feosol] 325 mg PO BID@0800,1730 #60 tab 04/29/17 Gabapentin [Neurontin -] 300 mg PO TID #120 tab 04/29/17 Lidocaine 5% Patch [Lidoderm -] 1 patch TP DAILY patch 04/29/17 Metoprolol Tartrate [Lopressor -] 50 mg PO TID tablet 04/29/17 Multivitamins [Multivit ([facility] Formulary)] 1 tab PO DAILY tab 04/29/17 Polyethylene Glycol 3350 [Miralax 119 gm Btl -] 17 gm PO DAILY #1 bottle Pramipexole Dihydrochloride [Mirapex -] 0.5 mg PO 0700,1200,1700 #120 tablet Pramipexole Dihydrochloride [Mirapex -] 0.5 mg PO HS #31 tablet 04/29/17 Acetaminophen [Tylenol] 325 mg PO QID PRN 05/14/17 Docusate Sodium [Colace -] 200 mg PO HS PRN 05/14/17 This patient is new to me today: No Emergency Visit: Yes ED Registration Date: 05/14/17 Care time: The patient presented to the Emergency Department on the above date and was hospitalized for further evaluation of their emergent condition. Critical Care patient: No - Discharge Referral Referred to [facility] No
--- NOTE | 2017-05-20 15:23 | PN ---
Teaching Attending Note Name of Resident: Black Parson ATTENDING PHYSICIAN STATEMENT I saw and evaluated the patient. I reviewed the resident's note and discussed the case with the resident. I agree with the resident's findings and plan as documented. SUBJECTIVE:pain has improved. denies CP, SOB< fever, chills, N/V/C/D OBJECTIVE: Last Vital Signs Temp Pulse Resp BP Pulse Ox 97.9 F 64 20 114/70 95 05/20/17 13:55 05/20/17 13:55 05/20/17 13:55 05/20/17 13:55 05/20/17 09:00 General NAD ASSESSMENT AND PLAN: 71yo M with multiple medical conditions presented with B/L LE weakness and pain 1. Pain and weakness B/L LE- s/p laminectomy on previous admission (04/13/17) . workup for alternative causes of symptoms negative. pain controlled with Fentanyl patch and motrin prn. pt really requires aggressive physical therapy as has significantly improved since surgery as had pt in the past. accepted to [facility] for therapy. will need to f/u with neurosurgery once discharged.
== END 2017-05-20 17:42 | DRG 551 ==
LOC: JER 17:34 → JERBED 23:28 → UNDOADMIN 23:55 → JERBED 23:55 → J6S 05-15 03:01
PROVIDERS: ADMIT Internal Medicine; ATTEND Internal Medicine
DX: M54.5 Low back pain (principal); G93.41 Metabolic encephalopathy; G91.2 (Idiopathic) normal pressure hydrocephalus; F41.8 Other specified anxiety disorders; I48.0 Paroxysmal atrial fibrillation; I44.7 Left bundle-branch block, unspecified; I12.9 Hypertensive chronic kidney disease with stage 1 through stage 4 chronic kidney disease, or unspecified chronic kidney disease; N18.3 Chronic kidney disease, stage 3 (moderate); N20.0 Calculus of kidney; N40.0 Benign prostatic hyperplasia without lower urinary tract symptoms; E78.5 Hyperlipidemia, unspecified; J44.9 Chronic obstructive pulmonary disease, unspecified; K58.8 Other irritable bowel syndrome; K64.8 Other hemorrhoids; I25.10 Atherosclerotic heart disease of native coronary artery without angina pectoris; G20 Parkinson's disease; R55 Syncope and collapse; E86.0 Dehydration; K59.09 Other constipation; J02.8 Acute pharyngitis due to other specified organisms; G25.81 Restless legs syndrome; G96.19 Other disorders of meninges, not elsewhere classified
CPT/HCPCS: 36415; 70450-TC; 71010-TC; 72131-TC; 72148-TC; 80048; 80053; 81003; 82140; 82550; 82553; 82607; 83735; 84100; 84443; 84484; 85025; 85027; 85379; 85651; 86140; 93005; 93010; 97116-GP; 97161-GP; 99284-25; J1644

== ENCOUNTER 2017-05-30 11:21 | Inpatient (IN) | payer OTHER, BC ==
[2017-05-30 11:46] VITALS: BMI 23.6
[2017-05-30] MEDS ORDERED: diazePAM 5 MG TABLET PO ONE (12:39)
[2017-05-30] MEDS ORDERED: diazePAM 5 MG TABLET ONE (12:45)
--- NOTE | 2017-05-30 13:52 | PDOC ---
History of Present Illness - General Chief Complaint: Back Pain Stated Complaint: BACK PAIN Time Seen by Provider: 05/30/17 11:31 History Source: Patient Exam Limitations: No Limitations - History of Present Illness Initial Comments: 05/30/17 13:01 72-year-old male with complaints of continual low back pain and left lower extremity weakness. Patient states had a laminectomy with fusion done last month and went to rehabilitation . Patient states was doing okay up until last week when his symptoms began. Patient denies numbness but does state intermittent sharp pain to his left toes, inability to walk due to left lower extremity weakness although he is able to move the leg, and decreased sensation to the toes intermittently. Patient denies worsening low back pain, swelling to the low back, or redness to the area. Occurred: reports: last week Severity: reports: moderate Pain Location: reports: lower extremity Associated Symptoms (Fall): trouble walking Past History - Travel Traveled outside of the country in the last 30 days: No - Past Medical History Allergies/Adverse Reactions: Allergies Allergy/AdvReac Type Severity Reaction Status Date / Time pregabalin [From Lyrica] Allergy Mild Verified 05/30/17 11:46 pravastatin sodium Allergy Unknown Verified 05/30/17 11:46 [From Pravachol] lactose Allergy Nausea Verified 05/30/17 11:46 morphine Allergy Verified 05/30/17 11:46 peanut Allergy Verified 05/30/17 11:46 Penicillins Allergy Verified 05/30/17 11:46 Home Medications: Ambulatory Orders Pantoprazole Sodium [Protonix -] 40 mg PO BID #60 tablet.ec 07/26/15 Alendronate Na [Fosamax (Weekly)] 70 mg PO WEEKLY 08/22/16 Magnesium Hydrox 2400MG/30Ml [Milk of Magnesia -] 30 ml PO Q8H PRN 01/11/17 Sennosides [Senna -] 2 tab PO DAILY #30 tablet 01/16/17 Sodium Phosphate/Na Biphos [Fleet Adult Rectal Enema -] 133 ml RC WEEKLY PRN #4 enema 01/16/17 Carbidopa/Levodopa *Cr* 50/200 [Sinemet *Cr* 50/200 -] 1 combo PO 0700,1200, 1700 #30 tab 04/29/17 Ferrous Sulfate [Feosol] 325 mg PO BID@0800,1730 #60 tab 04/29/17 Gabapentin [Neurontin -] 300 mg PO TID #120 tab 04/29/17 Lidocaine 5% Patch [Lidoderm -] 1 patch TP DAILY patch 04/29/17 Metoprolol Tartrate [Lopressor -] 50 mg PO TID tablet 04/29/17 Multivitamins [Multivit ([facility] Formulary)] 1 tab PO DAILY tab 04/29/17 Polyethylene Glycol 3350 [Miralax 119 gm Btl -] 17 gm PO DAILY #1 bottle Pramipexole Dihydrochloride [Mirapex -] 0.5 mg PO 0700,1200,1700 #120 tablet Pramipexole Dihydrochloride [Mirapex -] 0.5 mg PO HS #31 tablet 04/29/17 Acetaminophen [Tylenol] 325 mg PO QID PRN 05/14/17 Docusate Sodium [Colace -] 200 mg PO HS PRN 05/14/17 Anemia: No Asthma: No Cancer: No Cardiac Disorders: Yes (HTN, HLD, Paroxysmal AFib) CVA: No COPD: Yes CHF: No Dementia: No Diabetes: No GI Disorders: Yes (Diverticulitis, IBS, hemorrhoids) Disorders: Yes (Englarged Prostate) HTN: Yes Hypercholesterolemia: Yes Kidney Stones: Yes (s/p Right UVJ Stent placement) Liver Disease: No Psychiatric Problems: Yes (Depression/Anxiety) Seizures: No Thyroid Disease: No - Surgical History Abdominal Surgery: Yes (Hernia Repair) Appendectomy: No Cardiac Surgery: No Cholecystectomy: No GI Surgery: Yes (HEMORRHOIDS/ANAL ULCER, RIGHT UVJ STENT) Lung Surgery: No Neurologic Surgery: No Orthopedic Surgery: Yes (Lumbar Back Surgery x2) - Immunization History Immunization Up to Date: Yes - Suicide/Smoking/Psychosocial Hx Smoking Status: No Smoking History: Unknown if ever smoked Years of Tobacco Use: 20 Have you smoked in the past 12 months: No Number of Cigarettes Smoked Daily: 0 If you are a former smoker, when did you quit?: over 25 years ago Information on smoking cessation initiated: No 'Breaking Loose' booklet given: 09/08/13 Hx Alcohol Use: No Drug/Substance Use Hx: No Substance Use Type: None Hx Substance Use Treatment: No Patient Lives Alone: No Trauma Specific PMHX - Complaint Specific PMHX Back Injury: Yes Review of Systems - Review of Systems Able to Perform ROS?: Yes Constitutional: No: Symptoms Reported HEENTM: No: Symptoms Reported Respiratory: No: Symptoms reported Cardiac (ROS): No: Symptoms Reported ABD/GI: No: Symptoms Reported : No: Symptoms Reported Musculoskeletal: Yes: Back Pain, Muscle Weakness Integumentary: No: Symptoms Reported Neurological: Yes: Paresthesia, Tingling, Weakness. No: Headache, Numbness, Ataxia Hematologic/Lymphatic: No: Symptoms Reported *Physical Exam - Vital Signs Last Vital Signs Temp Pulse Resp BP Pulse Ox 98.3 F 94 H 18 150/90 100 05/30/17 11:25 05/30/17 11:25 05/30/17 11:25 05/30/17 11:25 05/30/17 11:25 - Physical Exam General Appearance: Yes: Nourished, Appropriately Dressed. No: Apparent Distress HEENT: positive: EOMI. negative: Pale Conjunctivae Neck: positive: Supple. negative: Tender, Decreased range of motion Respiratory/Chest: positive: Lungs Clear, Normal Breath Sounds. negative: Respiratory Distress, Accessory Muscle Use Cardiovascular: positive: Regular Rhythm, Regular Rate. negative: Murmur Comments:: 05/30/17 13:55 Gastrointestinal/Abdominal: positive: Soft. negative: Tenderness Musculoskeletal: negative: CVA Tenderness, Vertebral Tenderness Extremity: positive: Normal Capillary Refill, Normal Inspection, Normal Range of Motion. negative: Tender, Pedal Edema, Swelling Integumentary: positive: Normal Color (lumbar region), Warm, Moist Neurologic: positive: Motor Strength 5/5 (lle), Sensory Deficit (decreased to the left sole and toes). negative: Numbness ED Treatment Course - LABORATORY CBC & Chemistry Diagram: 05/30/17 13:58 05/30/17 13:58 - RADIOLOGY Radiology Studies Ordered: Category Date Time Status LUMBAR SPINE MRI W&W/O CONTR [MRI] Stat MRI 05/30/17 12:06 Ordered - Medications Given in the ED: ED Medications Discontinued Medications Generic Name Dose Route Start Last Admin Trade Name Freq PRN Reason Stop Dose Admin Diazepam 5 mg 05/30/17 12:39 05/30/17 12:50 Valium - PO 05/30/17 12:40 5 mg ONCE ONE Administration Medical Decision Making - Medical Decision Making 05/30/17 13:05 Patient here with complaints of continual low back pain associated with increased tingling and decreased strength to the left lower extremity for the past week. Status post laminectomy on April 13 and April [address] Martinez. Patient on exam has decreased sensation to dull touch at the sole of left foot and toes. Patient with noted fluid collection on previous MRI 05/16. Case discussed with Dr. Lundberg radiologist and recommend lumbar MRI with and without contrast. Patient requesting Valium for MRI. 05/30/17 14:38 Case discussed with hospitalist and will admit to [facility]. Consultation placed for. Admission labs ordered. 05/30/17 15:27 Laboratory Tests 05/30/17 05/30/17 13:58 13:58 WBC 7.5 D Hgb 13.0 D Hct 38.5 Sodium 139 Potassium 4.0 Chloride 108 H Carbon Dioxide 25 Anion Gap 6 L BUN 17 Creatinine 1.0 Random Glucose 98 *DC/Admit/Observation/Transfer Diagnosis at time of Disposition: Weakness, Back pain, Paresthesia, Fluid collection at surgical site - Discharge Dispostion Admit: Yes - Referrals Referrals: Mynor Gibbons MD [Primary Care Provider] -
[2017-05-30 14:43] LABS: BASOPHIL 1.1 % (0-2.0); EOSINOPHIL 6.4 % (0-4.5); MCH 33.1 pg (25.7-33.7); MCHC 33.8 g/dl (32.0-35.9); MEAN CELL VOLUME 97.9 fl (80-96); MEAN PLT VOLUME 8.2 fl (7.5-11.1); NEUTROPHILS 58.7 % (42.8-82.8); PLATELET COUNT 295 K/MM3 (134-434); RDW 16.6 % (11.9-15.9); WHITE BLOOD COUNT 7.5 K/mm3 (4.0-10.0)
--- NOTE | 2017-05-30 14:44 | HP ---
Admitting History and Physical - Primary Care Physician PCP: Mynor Gibbons - Admission Chief Complaint: LLL pain and parethesia History of Present Illness: 71 yo M h/o paroxysmal afib not on AC, chronic back pain, HTN, CKD3, BPH, Normal pressure hydrocephalus, osteoarthritis s/p L3 L4 aminectomy and fusion presented to the ED with worsening lower left extremity pain and parethesia since the aminectomy in April. Patient was sent to the ED by his neurosurgeon because his recent MRI shows non-specific fluid collection at L3/4 aminectomy site. Patient states the pain located in L surface of foot, radiates to anterior ortiz, 10/10, constant, relieved with lidocaine patch, worse with movement. He has urinary incontinence at baseline but denies fever, chills, bowel incontinence, chest pain, sob, dizziness, abd pain. 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 stress test in 01/14 - normal (pt reports recent one ,about 14 montsh ago,at [facility] -. normal)) Cardiovascular: Yes: HTN, Hyperlipdemia, Other (atypical chest pain in the past with neg stress test. Hx of WCT in 01/16 -. thought to be SVT at pt has underlying LBBB) Pulmonary: Yes: COPD Gastrointestinal: Yes: Constipation, Hiatal Hernia, Irritable Bowel Disease Renal/: Yes: Renal Inusuff, BPH, Renal Calculi (Patient says that he has kidney stone, ? 6 cm in one kidney) Heme/Onc: Yes: B12 Deficiency Infectious Disease: Yes: Other (?hx "shingles") Psych: Yes: Anxiety, Depression Musculoskeletal: Yes: Chronic low back pain, Osteoarthritis, Other (Lower extremity ulcerations) - Past Surgical History Past Surgical History: Yes: Hernia Repair - Smoking History Smoking history: Unknown if ever smoked Have you smoked in the past 12 months: No Aproximately how many cigarettes per day: 0 If you are a former smoker, when did you quit?: over 25 years ago - Alcohol/Substance Use Hx Alcohol Use: No History of Substance Use: reports: None - Social History 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 Travel: No Home Medications - Allergies Allergies/Adverse Reactions: Allergies Allergy/AdvReac Type Severity Reaction Status Date / Time pregabalin [From Lyrica] Allergy Mild Verified 05/30/17 11:46 pravastatin sodium Allergy Unknown Verified 05/30/17 11:46 [From Pravachol] lactose Allergy Nausea Verified 05/30/17 11:46 morphine Allergy Verified 05/30/17 11:46 peanut Allergy Verified 05/30/17 11:46 Penicillins Allergy Verified 05/30/17 11:46 - Home Medications Home Medications: Ambulatory Orders Pantoprazole Sodium [Protonix -] 40 mg PO BID #60 tablet.ec 07/26/15 Alendronate Na [Fosamax (Weekly)] 70 mg PO WEEKLY 08/22/16 Magnesium Hydrox 2400MG/30Ml [Milk of Magnesia -] 30 ml PO Q8H PRN 01/11/17 Sennosides [Senna -] 2 tab PO DAILY #30 tablet 01/16/17 Sodium Phosphate/Na Biphos [Fleet Adult Rectal Enema -] 133 ml RC WEEKLY PRN #4 enema 01/16/17 Carbidopa/Levodopa *Cr* 50/200 [Sinemet *Cr* 50/200 -] 1 combo PO 0700,1200, 1700 #30 tab 04/29/17 Ferrous Sulfate [Feosol] 325 mg PO BID@0800,1730 #60 tab 04/29/17 Gabapentin [Neurontin -] 300 mg PO TID #120 tab 04/29/17 Lidocaine 5% Patch [Lidoderm -] 1 patch TP DAILY patch 04/29/17 Metoprolol Tartrate [Lopressor -] 50 mg PO TID tablet 04/29/17 Multivitamins [Multivit ([facility] Formulary)] 1 tab PO DAILY tab 04/29/17 Polyethylene Glycol 3350 [Miralax 119 gm Btl -] 17 gm PO DAILY #1 bottle Pramipexole Dihydrochloride [Mirapex -] 0.5 mg PO 0700,1200,1700 #120 tablet Pramipexole Dihydrochloride [Mirapex -] 0.5 mg PO HS #31 tablet 04/29/17 Acetaminophen [Tylenol] 325 mg PO QID PRN 05/14/17 Docusate Sodium [Colace -] 200 mg PO HS PRN 05/14/17 Family Disease History - Family Disease History Family Disease History: CA: Father (lung ), Mother (gall bladder ), Other: Sister (alive: healthy) Review of Systems - Review of Systems Constitutional: reports: No Symptoms Eyes: reports: No Symptoms HENT: reports: No Symptoms Neck: reports: Pain on Movement Cardiovascular: denies: Chest Pain Respiratory: denies: Cough, SOB Gastrointestinal: reports: Constipation Genitourinary: reports: Incontinence Musculoskeletal: reports: Back Pain, Decreased ROM, Extremity Pain Neurological: reports: Weakness Physical Examination Vital Signs: Vital Signs Temperature 98.3 F 05/30/17 11:25 Pulse Rate 94 H 05/30/17 11:25 Respiratory Rate 18 05/30/17 11:25 Blood Pressure 150/90 05/30/17 11:25 O2 Sat by Pulse Oximetry (%) 100 05/30/17 11:25 Constitutional: Yes: No Distress Eyes: Yes: Conjunctiva Clear HENT: Yes: Atraumatic, Normocephalic Cardiovascular: Yes: Regular Rate and Rhythm, S1, S2 Respiratory: Yes: CTA Bilaterally Gastrointestinal: Yes: Normal Bowel Sounds, Soft ...Rectal Exam: Yes: Deferred Musculoskeletal: Yes: Back Pain, Other (band-aid covers laminectomy wound. Wound clean. non-infected) Edema: No Peripheral Pulses WNL: Yes Wound/Incision: Yes: Clean/Dry Neurological: Yes: Alert, Oriented, Paresthesia (LLE), Weakness (LLE 2/5) Imaging - Results MRI: Report Reviewed, Image Reviewed Assessment/Plan 72 yo M admitted to med-surg for suspected worsening spinal fluid collection. LLE pain and parethesia - Likely 2/2 expanding spinal fluid collection - Cont. valium - f/u MRI for comparison - Neurosurgery on board Normal pressure hydrocephalus - Stable - V/P shunt deferred due to recent URI Constipation - Chronic - Cont. colace and senna - fleet enema PRN Parkinsons - Stable - Cont. home sinemet and mirapex A-fib - Cont. metoprolol 50mg TID FEN - No IVF - Normal lytes - Sodium controlled diet prophylaxsis - DVT: heparin SQ - GI: home protonix Dispo - Admit to med-surg for follow up MRI [facility] PGY2 Pager: [phone] Visit type - Emergency Visit Emergency Visit: Yes ED Registration Date: 05/30/17 Care time: The patient presented to the Emergency Department on the above date and was hospitalized for further evaluation of their emergent condition. - New Patient This patient is new to me today: Yes Date on this admission: 05/30/17 - Critical Care Critical Care patient: No
[2017-05-30 15:09] LABS: ALBUMIN 3.5 g/dl (3.4-5.0); ALK PHOS 143 U/L (45-117); ANION GAP 6 (8-16); BILIRUBIN,TOTAL 0.4 mg/dL (0.2-1.0); CALCIUM 8.5 mg/dL (8.5-10.1); CO2 25 mmol/L (21-32); GLUCOSE,RANDOM 98 mg/dL (74-106); SGOT/AST 28 U/L (15-37); SGPT/ALT 20 U/L (12-78); TOT PROT 6.3 g/dl (6.4-8.2)
--- NOTE | 2017-05-30 16:11 | HP ---
CHIEF COMPLAINT: Left LE weakness, pain PCP: Dr. Gibbons HISTORY OF PRESENT ILLNESS: 72yo M with PMH of chronic back pain, paroxysmal afib (not on anticoagulation), htn, hld, parkinson's, presents from [facility] c/o Left LE weakness and pain. Pt is s/p laminectomy at L3-L4 and fusion at T12-L1 on 04/13/[address] Martinez. Pt reports having these symptoms of pain and weakness since the surgery but the symptoms are getting worse over the last week. Pt called Dr. Martinez last week, who told him if symptoms do not improve come to the hospital. Pt's symptoms worsened, prompting pt to come to the ER. Pt reports shooting pain in the Left foot towards the toes, but sometimes pain radiates up towards the knee. At it's peak the pain is 10/10. Pt's Lidocaine patch, Neurontin and Tylenol help mitigate the pain, but do not cover the pain. Pt denies injury, trauma, fever, chills, nausea, vomiting, chest pain, palpitations, syncope, sob. ER course was notable for: (1) Valium in preparation for MRI (2) CBC, CMP wnl Recent Travel: denies PAST MEDICAL HISTORY: paroxysmal afib (not on anticoagulation) htn hld parkinson's NPH (cannot r/o Normal Pressure Hydrocephalus on CT 05/15/17) copd diverticulitis IBS constipation hemorrhoids enlarged prostate kidney stones (s/p Right UVJ stent) depression anxiety PAST SURGICAL HISTORY: hernia repair Right UJV stent placement lumbar laminectomy and fusion surgeries Social History: Smokin pack yr hx, quit 25 yrs ago Alcohol: denies Drugs: denies Family History: dad - lung [place] Allergies pregabalin [From Lyrica] Allergy (Mild, Verified 05/30/17 11:46) pravastatin sodium [From Pravachol] Allergy (Unknown, Verified 05/30/17 11:46) however, pt takes atorvastatin 10 mg daily at home, reportedly without side effects lactose Allergy (Verified 05/30/17 11:46) Nausea morphine Allergy (Verified 05/30/17 11:46) unknown peanut Allergy (Verified 05/30/17 11:46) Penicillins Allergy (Verified 05/30/17 11:46) unknown affect HOME MEDICATIONS: Home Medications Medication Instructions Recorded Pantoprazole Sodium [Protonix -] 40 mg PO BID #60 tablet.ec 07/26/15 Alendronate Na [Fosamax (Weekly)] 70 mg PO WEEKLY 08/22/16 Magnesium Hydrox 2400MG/30Ml [Milk 30 ml PO Q8H PRN 01/11/17 of Magnesia -] Sennosides [Senna -] 2 tab PO DAILY #30 tablet 01/16/17 Sodium Phosphate/Na Biphos [Fleet 133 ml RC WEEKLY PRN #4 enema 01/16/17 Adult Rectal Enema -] Carbidopa/Levodopa *Cr* 50/200 1 combo PO 0700,1200,1700 #30 tab 04/29/17 [Sinemet *Cr* 50/200 -] Ferrous Sulfate [Feosol] 325 mg PO BID@0800,1730 #60 tab 04/29/17 Gabapentin [Neurontin -] 300 mg PO TID #120 tab 04/29/17 Lidocaine 5% Patch [Lidoderm -] 1 patch TP DAILY patch 04/29/17 Metoprolol Tartrate [Lopressor -] 50 mg PO TID tablet 04/29/17 Multivitamins [Multivit ([facility] 1 tab PO DAILY tab 04/29/17 Formulary)] Polyethylene Glycol 3350 [Miralax 17 gm PO DAILY #1 bottle 04/29/17 119 gm Btl -] Pramipexole Dihydrochloride 0.5 mg PO 0700,1200,1700 #120 04/29/17 [Mirapex -] tablet Pramipexole Dihydrochloride 0.5 mg PO HS #31 tablet 04/29/17 [Mirapex -] Acetaminophen [Tylenol] 325 mg PO QID PRN 05/14/17 Docusate Sodium [Colace -] 200 mg PO HS PRN 05/14/17 REVIEW OF SYSTEMS CONSTITUTIONAL: Absent: fever, chills, diaphoresis, weight change HEENT: Absent: rhinorrhea, nasal congestion, throat pain, difficulty swallowing, ear pain, eye pain, visual changes CARDIOVASCULAR: Absent: chest pain, syncope, palpitations, irregular heart rate, peripheral edema RESPIRATORY: Absent: cough, shortness of breath, wheezing, stridor, hemoptysis GASTROINTESTINAL: Present: constipation Absent: abdominal pain, abdominal distension, nausea, vomiting, diarrhea, melena , hematochezia GENITOURINARY: Absent: dysuria, hematuria, flank pain MUSCULOSKELETAL: Present: back pain, Left LE pain/weakness Absent: myalgia, arthralgia, joint swelling, neck pain SKIN: Absent: rash, itching, pallor HEMATOLOGIC/IMMUNOLOGIC: Absent: easy bleeding, easy bruising NEUROLOGIC: Present: Left LE weakness or paresthesia Absent: dizziness, seizure PHYSICAL EXAMINATION Vital Signs - 24 hr 05/30/17 11:25 Temperature 98.3 F Pulse Rate 94 H Respiratory 18 Rate Blood Pressure 150/90 O2 Sat by Pulse 100 Oximetry (%) GENERAL: Awake, alert, and fully oriented, in no acute distress. HEAD: Normal with no signs of trauma. EYES: Pupils equal, round and reactive to light, extraocular movements intact, sclera anicteric, conjunctiva clear. No lid lag. EARS, NOSE, THROAT: Ears normal, nares patent, oropharynx clear without exudates. Moist mucous membranes. NECK: Normal range of motion, supple, trachea midline. LUNGS: Breath sounds equal, clear to auscultation bilaterally. No wheezes, and no crackles. No accessory muscle use. HEART: Regular rate and rhythm, normal S1 and S2 without murmur, rub or gallop. ABDOMEN: Soft, nontender, not distended. MUSCULOSKELETAL: Left LE 2/5 muscle strength. Pain to gentle palpation of Left LE. Sensation intact farrukh. Right LE wnl. No CVA tenderness. UPPER EXTREMITIES: Warm, well-perfused. No cyanosis. No clubbing. No peripheral edema. LOWER EXTREMITIES: 2+ pulses, warm, well-perfused. No calf tenderness. No peripheral edema. PSYCHIATRIC: Cooperative. Good eye contact. Appropriate mood and affect. SKIN: Warm, dry, normal turgor, no rashes or lesions noted. Laboratory Results - last 24 hr 05/30/17 05/30/17 13:58 13:58 WBC 7.5 D RBC 3.94 L Hgb 13.0 D Hct 38.5 MCV 97.9 H MCH 33.1 MCHC 33.8 RDW 16.6 H Plt Count 295 D MPV 8.2 Neutrophils % 58.7 Lymphocytes % 27.8 D Monocytes % 6.0 Eosinophils % 6.4 H D Basophils % 1.1 Sodium 139 Potassium 4.0 Chloride 108 H Carbon Dioxide 25 Anion Gap 6 L BUN 17 Creatinine 1.0 Creat Clearance w eGFR > 60 Random Glucose 98 Calcium 8.5 Total Bilirubin 0.4 D AST 28 D ALT 20 Alkaline Phosphatase 143 H Total Protein 6.3 L Albumin 3.5 D ASSESSMENT/PLAN: 72yo M with PMH of chronic back pain, paroxysmal afib (not on anticoagulation), parkinson's, htn, hld, presents c/o Left LE weakness and pain s/p laminectomy and fusion back surgery admitted to med-surg inpatient for fluid collection at laminectomy site. 1) Left LE pain/weakness - likely 2/2 fluid collection at laminectomy site, Ddx: hematoma vs infectious - f/u MRI - Neurosurgery Consult - Dr. Martinez - continue home meds of Lidocaine patch, Neurontin, and Tylenol prn for pain 2) Parkinson's - stable - continue home meds of Sinemet and Mirapex 3) htn - continue home med of Lopressor 4) constipation - chronic - continue home meds of Senna, Miralax, Milk of Magnesia prn, and Colace prn 5) osteoporosis - continue home med of Fosamax 6) FEN - Fluids: encourage po - Electrolytes: wnl, continue to monitor - Nutrition: low sodium diet 7) Prophylaxis - DVT ppx with Heparin 5,000U SQ TID - GI ppx with home med of Protonix Visit type - Emergency Visit Emergency Visit: Yes ED Registration Date: 05/30/17 Care time: The patient presented to the Emergency Department on the above date and was hospitalized for further evaluation of their emergent condition. - New Patient This patient is new to me today: Yes Date on this admission: 05/30/17 - Critical Care Critical Care patient: No
--- NOTE | 2017-05-30 16:51 | PN ---
Teaching Attending Note Name of Resident: Andree Butts ATTENDING PHYSICIAN STATEMENT I saw and evaluated the patient. I reviewed the resident's note and discussed the case with the resident. I agree with the resident's findings and plan as documented. SUBJECTIVE: OBJECTIVE: Vital Signs Period Temp Pulse Resp BP Sys/Suazo Pulse Ox Last 24 Hr 98.3 F 94 18 150/90 100 Home Medications Medication Instructions Recorded Pantoprazole Sodium [Protonix -] 40 mg PO BID #60 tablet.ec 07/26/15 Alendronate Na [Fosamax (Weekly)] 70 mg PO WEEKLY 08/22/16 Magnesium Hydrox 2400MG/30Ml [Milk 30 ml PO Q8H PRN 01/11/17 of Magnesia -] Sennosides [Senna -] 2 tab PO DAILY #30 tablet 01/16/17 Sodium Phosphate/Na Biphos [Fleet 133 ml RC WEEKLY PRN #4 enema 01/16/17 Adult Rectal Enema -] Carbidopa/Levodopa *Cr* 50/200 1 combo PO 0700,1200,1700 #30 tab 04/29/17 [Sinemet *Cr* 50/200 -] Ferrous Sulfate [Feosol] 325 mg PO BID@0800,1730 #60 tab 04/29/17 Gabapentin [Neurontin -] 300 mg PO TID #120 tab 04/29/17 Lidocaine 5% Patch [Lidoderm -] 1 patch TP DAILY patch 04/29/17 Metoprolol Tartrate [Lopressor -] 50 mg PO TID tablet 04/29/17 Multivitamins [Multivit ([facility] 1 tab PO DAILY tab 04/29/17 Formulary)] Polyethylene Glycol 3350 [Miralax 17 gm PO DAILY #1 bottle 04/29/17 119 gm Btl -] Pramipexole Dihydrochloride 0.5 mg PO 0700,1200,1700 #120 04/29/17 [Mirapex -] tablet Pramipexole Dihydrochloride 0.5 mg PO HS #31 tablet 04/29/17 [Mirapex -] Acetaminophen [Tylenol] 325 mg PO QID PRN 05/14/17 Docusate Sodium [Colace -] 200 mg PO HS PRN 05/14/17 Laboratory Tests 05/30/17 05/30/17 13:58 13:58 WBC 7.5 D RBC 3.94 L Hgb 13.0 D Hct 38.5 MCV 97.9 H MCH 33.1 MCHC 33.8 RDW 16.6 H Plt Count 295 D MPV 8.2 Neutrophils % 58.7 Lymphocytes % 27.8 D Monocytes % 6.0 Eosinophils % 6.4 H D Basophils % 1.1 Sodium 139 Potassium 4.0 Chloride 108 H Carbon Dioxide 25 Anion Gap 6 L BUN 17 Creatinine 1.0 Creat Clearance w eGFR > 60 Random Glucose 98 Calcium 8.5 Total Bilirubin 0.4 D AST 28 D ALT 20 Alkaline Phosphatase 143 H Total Protein 6.3 L Albumin 3.5 D ASSESSMENT AND PLAN:
[2017-05-30] MEDS ORDERED: SODIUM PHOSPHATE/NA BIPHOS 133 ML ENEMA RC PRN (17:32)
[2017-05-30] MEDS ORDERED: DOCUSATE SODIUM 100 MG CAPSULE (FP) PO PRN (17:32)
[2017-05-30] MEDS ORDERED: MAGNESIUM HYDROX 2400MG/30ML ORAL SUSPENSION 30 ML CUP PO PRN (17:32)
[2017-05-30] MEDS ORDERED: PATIENT'S OWN MEDICATION (NON-FORMULARY) (Alendronate Na [Fosamax (Weekly)] 70 MG) PO SCH (17:45)
[2017-05-30] MEDS ORDERED: LORazepam 2 MG/ML SDV VIAL IVPUSH ONE (18:57)
[2017-05-30] MEDS: HEPARIN NA (PORCINE) 5,000 UNITS/ML 1ML VIAL SQ SCH ×2 (21:06→21:10)
[2017-05-30] MEDS: METOPROLOL TARTRATE 50 MG TABLET (FP) PO SCH (21:07)
[2017-05-30] MEDS: PANTOPRAZOLE 40 MG TABLET (FP) PO SCH (21:07)
[2017-05-30] MEDS: PRAMIPEXOLE DIHYDROCHLORIDE 0.5 MG TABLET PO SCH (21:07)
[2017-05-30] MEDS: LIDOCAINE PATCH REMOVAL MC SCH (21:07)
[2017-05-30] MEDS: GABAPENTIN 300 MG CAPSULE (FP) PO SCH (21:07)
[2017-05-30 22:47] LABS: URINE APPEARANCE SLCLOUDY; URINE BILIRUBIN NEGATIVE (NEGATIVE); URINE BLOOD NEGATIVE (NEGATIVE); URINE COLOR AMBER; URINE GLUCOSE (UA) NEGATIVE (NEGATIVE); URINE KETONE TRACE (NEGATIVE); URINE NITRITE NEGATIVE (NEGATIVE); URINE PROTEIN NEGATIVE (NEGATIVE)
[2017-05-31] MEDS: ACETAMINOPHEN 325 MG TABLET (FP) PO PRN ×3 (01:15→15:30)
[2017-05-31] MEDS ORDERED: PT OWN MED DRAWER 7, Y5N ONE ×5 (06:04→22:55)
[2017-05-31] MEDS: METOPROLOL TARTRATE 50 MG TABLET (FP) PO SCH ×3 (06:23→23:01)
[2017-05-31] MEDS: HEPARIN NA (PORCINE) 5,000 UNITS/ML 1ML VIAL SQ SCH ×3 (06:23→23:02)
[2017-05-31] MEDS: PRAMIPEXOLE DIHYDROCHLORIDE 0.5 MG TABLET PO SCH ×4 (06:23→23:01)
[2017-05-31] MEDS: GABAPENTIN 300 MG CAPSULE (FP) PO SCH ×3 (06:23→23:01)
[2017-05-31] MEDS: FERROUS SO4 325 MG TABLET (FP) PO SCH ×2 (08:29→17:08)
[2017-05-31] MEDS: POLYETHYLENE GLYCOL 3350 119 GM BTL PO SCH (09:40)
[2017-05-31] MEDS: SENNOSIDES 8.6MG TABLET (FP) PO SCH (09:41)
[2017-05-31] MEDS: PANTOPRAZOLE 40 MG TABLET (FP) PO SCH ×2 (09:41→23:01)
[2017-05-31] MEDS: LIDOCAINE 5% TOPICAL PATCH TP SCH (09:41)
[2017-05-31] MEDS: MULTIVITAMINS (DAILY MVI) TABLET (FP) PO SCH (10:19)
[2017-05-31 11:55] LABS: URINE LEUK ESTERASE Negative (NEGATIVE)
--- NOTE | 2017-05-31 12:50 | PN ---
Physical Exam: SUBJECTIVE: Patient seen and examined Patient presented with LE pain and unable to ambulate.No fever or chills, no shortness of breath. OBJECTIVE: Vital Signs Temperature 98.2 F 05/31/17 08:00 Pulse Rate 60 05/31/17 08:00 Respiratory Rate 18 05/31/17 08:00 Blood Pressure 143/78 05/31/17 08:00 O2 Sat by Pulse Oximetry (%) 96 05/31/17 09:00 GENERAL: The patient is awake, alert, and fully oriented, in no acute distress. HEAD: Normal with no signs of trauma. EYES: PERRL, extraocular movements intact, sclera anicteric, conjunctiva clear. ENT: Ears normal, oropharynx clear without exudates, moist mucous membranes. NECK: Trachea midline, full range of motion, supple. LUNGS: Breath sounds equal, clear to auscultation bilaterally, no wheezes, no crackles, no accessory muscle use. HEART: Regular rate and rhythm, S1, S2 positive, , LAUREN 1/6. ABDOMEN: Soft, nontender, nondistended, normoactive bowel sounds, no guarding, no rebound, no hepatosplenomegaly, no masses. EXTREMITIES: 2+ pulses, warm, well-perfused, no edema. NEUROLOGICAL: Cranial nerves II through XII grossly intact. Normal speech, gait not observed. PSYCH: Normal mood, normal affect. SKIN: Warm, dry, normal turgor, no rashes or lesions noted CBCD WBC 7.5 K/mm3 (4.0-10.0) D 05/30/17 13:58 RBC 3.94 M/mm3 (4.00-5.60) L 05/30/17 13:58 Hgb 13.0 GM/dL (11.7-16.9) D 05/30/17 13:58 Hct 38.5 % (35.4-49) 05/30/17 13:58 MCV 97.9 fl (80-96) H 05/30/17 13:58 MCHC 33.8 g/dl (32.0-35.9) 05/30/17 13:58 RDW 16.6 % (11.9-15.9) H 05/30/17 13:58 Plt Count 295 K/MM3 (134-434) D 05/30/17 13:58 MPV 8.2 fl (7.5-11.1) 05/30/17 13:58 CMP Sodium 139 mmol/L (136-145) 05/30/17 13:58 Potassium 4.0 mmol/L (3.5-5.1) 05/30/17 13:58 Chloride 108 mmol/L (98-107) H 05/30/17 13:58 Carbon Dioxide 25 mmol/L (21-32) 05/30/17 13:58 Anion Gap 6 (8-16) L 05/30/17 13:58 BUN 17 mg/dL (7-18) 05/30/17 13:58 Creatinine 1.0 mg/dL (0.7-1.3) 05/30/17 13:58 Creat Clearance w eGFR > 60 (>60) 05/30/17 13:58 Random Glucose 98 mg/dL (74-106) 05/30/17 13:58 Calcium 8.5 mg/dL (8.5-10.1) 05/30/17 13:58 Total Bilirubin 0.4 mg/dL (0.2-1.0) D 05/30/17 13:58 AST 28 U/L (15-37) D 05/30/17 13:58 ALT 20 U/L (12-78) 05/30/17 13:58 Alkaline Phosphatase 143 U/L (45-117) H 05/30/17 13:58 Total Protein 6.3 g/dl (6.4-8.2) L 05/30/17 13:58 Albumin 3.5 g/dl (3.4-5.0) D 05/30/17 13:58 Laboratory Results - last 24 hr 05/30/17 22:00 Urine Color Joan Urine Appearance Slcloudy Urine pH 5.0 Ur Specific [place] 1.020 Urine Protein Negative Urine Glucose (UA) Negative Urine Ketones Trace H Urine Blood Negative Urine Nitrite Negative Urine Bilirubin Negative Urine Urobilinogen 2.0 Ur Leukocyte Esterase Negative Active Medications Generic Name Dose Route Start Last Admin Trade Name Freq PRN Reason Stop Dose Admin Acetaminophen 650 mg 05/31/17 00:52 05/31/17 08:28 Tylenol - PO 650 mg Q4H PRN Administration FEVER OR PAIN Carbidopa/Levodopa 1 combo 05/31/17 07:00 05/31/17 12:06 Sinemet *Cr* 50/200 - PO 1 combo TID@0700,1200,1700 SIENA Administration Docusate Sodium 200 mg 05/30/17 17:32 Colace - PO HS PRN CONSTIPATION Ferrous Sulfate 325 mg 05/31/17 08:00 05/31/17 08:29 Feosol - PO 325 mg BID@0800,1730 SIENA Administration Gabapentin 300 mg 05/30/17 22:00 05/31/17 06:23 Neurontin - PO 300 mg TID SIENA Administration Heparin Sodium (Porcine) 5,000 unit 05/30/17 18:00 05/31/17 06:23 Heparin - SQ 5,000 unit TID SIENA Administration Lidocaine 1 patch 05/31/17 10:00 05/31/17 09:41 Lidoderm Patch - TP 1 patch DAILY SIENA Administration Magnesium Hydroxide 30 ml 05/30/17 17:32 Milk Of Magnesia - PO Q8H PRN CONSTIPATION Metoprolol Tartrate 50 mg 05/30/17 22:00 05/31/17 06:23 Lopressor - PO 50 mg TID SIENA Administration Miscellaneous 1 each 05/30/17 22:00 05/30/17 21:07 Lidoderm Patch Removal MC 1 each DAILY@2200 SIENA Administration Multivitamins/Minerals/Vitamin C 1 tab 05/31/17 10:00 05/31/17 10:19 Tab-A-Vit - PO 1 tab DAILY SIENA Administration Non-Formulary Medication 70 mg 05/30/17 17:45 Alendronate Na [Fosamax (Weekly)] PO WEEKLY SIENA Pantoprazole Sodium 40 mg 05/30/17 22:00 05/31/17 09:41 Protonix - PO 40 mg BID SIENA Administration Polyethylene Glycol 17 gm 05/31/17 10:00 05/31/17 09:40 Miralax (For Daily Use) - PO 17 grams DAILY SIENA Administration Pramipexole Dihydrochloride 0.5 mg 05/30/17 22:00 05/30/17 21:07 Mirapex - PO 0.5 mg HS SIENA Administration Pramipexole Dihydrochloride 0.5 mg 05/31/17 07:00 05/31/17 12:06 Mirapex - PO 0.5 mg 0700,1200,1700 SIENA Administration Senna 2 tab 05/31/17 10:00 05/31/17 09:41 Senna - PO 2 tab DAILY SIENA Administration Sodium Phosphate 133 ml 05/30/17 17:32 Fleet Adult Rectal Enema - RC Q7D PRN CONSTIPATION Home Medications Medication Instructions Recorded Pantoprazole Sodium [Protonix -] 40 mg PO BID #60 tablet.ec 07/26/15 Alendronate Na [Fosamax (Weekly)] 70 mg PO WEEKLY 08/22/16 Magnesium Hydrox 2400MG/30Ml [Milk 30 ml PO Q8H PRN 01/11/17 of Magnesia -] Sennosides [Senna -] 2 tab PO DAILY #30 tablet 01/16/17 Sodium Phosphate/Na Biphos [Fleet 133 ml RC WEEKLY PRN #4 enema 01/16/17 Adult Rectal Enema -] Carbidopa/Levodopa *Cr* 50/200 1 combo PO 0700,1200,1700 #30 tab 04/29/17 [Sinemet *Cr* 50/200 -] Ferrous Sulfate [Feosol] 325 mg PO BID@0800,1730 #60 tab 04/29/17 Gabapentin [Neurontin -] 300 mg PO TID #120 tab 04/29/17 Lidocaine 5% Patch [Lidoderm -] 1 patch TP DAILY patch 04/29/17 Metoprolol Tartrate [Lopressor -] 50 mg PO TID tablet 04/29/17 Multivitamins [Multivit ([facility] 1 tab PO DAILY tab 04/29/17 Formulary)] Polyethylene Glycol 3350 [Miralax 17 gm PO DAILY #1 bottle 04/29/17 119 gm Btl -] Pramipexole Dihydrochloride 0.5 mg PO 0700,1200,1700 #120 04/29/17 [Mirapex -] tablet Pramipexole Dihydrochloride 0.5 mg PO HS #31 tablet 04/29/17 [Mirapex -] Acetaminophen [Tylenol] 325 mg PO QID PRN 05/14/17 Docusate Sodium [Colace -] 200 mg PO HS PRN 05/14/17 05/30/17 MRI Lumbar Spine -> Large dorsal epidural fluid collection and posterior paraspinal fluid collection spanning the length of the surgical hardware, slightly decreased in size from prior (05/15/17). Resultant moderate dorsal thecal sac compression L4-L5 and L5-S1 unchanged. Empty thecal sac at L4 -L5 with clumping of nearly all the cauda equina pauline roots unchanged, and compatible with arachnoiditis. Significant interval loss of intervertebral disc height at L4-L5 and L5-S1 suggestive of degenerative changes vs infectious discitis. DDx: post-surgical serosanguinous fluid vs infectious vs pseudomeningocele vs discitis vs arachnoiditis ASSESSMENT/PLAN: 72yo M with PMH of chronic back pain, paroxysmal afib (not on anticoagulation), parkinson's, htn, hld, presents c/o Left LE weakness and pain s/p laminectomy and fusion back surgery admitted to med-surg inpatient for fluid collection at laminectomy site. # Left LE pain/weakness with fluid collection 5.5cm with DDX of Hematoma/ Infection/serasingiounous changes as per mRI report. Patient has no fever or chills, having difficulty with ambulation recently by , ID consult since seen the patient in the past for possible infection at the collection site. patient is on weekly Fosamax. #Parkinson's stable continue home meds of Sinemet and Mirapex # htn continue home med of Lopressor # constipation chronic, continue home meds of Senna, Miralax, Milk of Magnesia prn, and Colace prn # osteoporosis , continue home med of Fosamax Prophylaxis DVT ppx with Heparin 5,000U SQ TID Visit type - Emergency Visit Emergency Visit: Yes ED Registration Date: 05/30/17 Care time: The patient presented to the Emergency Department on the above date and was hospitalized for further evaluation of their emergent condition. - New Patient This patient is new to me today: Yes Date on this admission: 05/31/17 - Critical Care Critical Care patient: No
[2017-05-31] MEDS: LIDOCAINE PATCH REMOVAL MC SCH (23:02)
[2017-06-01] MEDS: ACETAMINOPHEN 325 MG TABLET (FP) PO PRN ×3 (01:53→23:38)
[2017-06-01] MEDS ORDERED: PT OWN MED DRAWER 7, Y5N ONE ×6 (06:10→23:38)
[2017-06-01] MEDS: METOPROLOL TARTRATE 50 MG TABLET (FP) PO SCH ×3 (06:14→23:31)
[2017-06-01] MEDS: GABAPENTIN 300 MG CAPSULE (FP) PO SCH ×3 (06:14→23:31)
[2017-06-01] MEDS: HEPARIN NA (PORCINE) 5,000 UNITS/ML 1ML VIAL SQ SCH ×3 (06:14→23:33)
[2017-06-01] MEDS: PRAMIPEXOLE DIHYDROCHLORIDE 0.5 MG TABLET PO SCH ×4 (06:15→23:31)
[2017-06-01] MEDS: FERROUS SO4 325 MG TABLET (FP) PO SCH ×2 (08:39→17:16)
[2017-06-01] MEDS: MULTIVITAMINS (DAILY MVI) TABLET (FP) PO SCH (10:00)
[2017-06-01] MEDS: PANTOPRAZOLE 40 MG TABLET (FP) PO SCH ×2 (10:01→23:31)
[2017-06-01] MEDS: POLYETHYLENE GLYCOL 3350 119 GM BTL PO SCH (10:01)
[2017-06-01] MEDS: LIDOCAINE 5% TOPICAL PATCH TP SCH (10:01)
[2017-06-01] MEDS: SENNOSIDES 8.6MG TABLET (FP) PO SCH (10:01)
--- NOTE | 2017-06-01 14:51 | PN ---
Physical Exam: SUBJECTIVE: Patient seen and examined. Pt c/o pain to Left LE. Pt also c/o weakness to Right LE now. No events overnight. OBJECTIVE: Vital Signs Period Temp Pulse Resp BP Sys/Suazo Pulse Ox Last 24 Hr 98.1 F-98.3 F 57-84 18-21 123-140/78-94 96-97 GENERAL: The patient is awake, alert, and fully oriented, in no acute distress. HEAD: Normal with no signs of trauma. EYES: Extraocular movements intact, sclera anicteric, conjunctiva clear. No ptosis. ENT: Moist mucous membranes. NECK: Trachea midline, supple. LUNGS: Breath sounds equal, clear to auscultation bilaterally, no wheezes, no crackles, no accessory muscle use. HEART: Regular rate and rhythm, S1, S2 without murmur, rub or gallop. EXTREMITIES: farrukh LE 2/5 muscle strength. Sensation intact farrukh. Warm, well- perfused, no edema. PSYCH: Normal mood, normal affect. SKIN: Warm, dry, normal turgor, no rashes or lesions noted Active Medications Generic Name Dose Route Start Last Admin Trade Name Freq PRN Reason Stop Dose Admin Acetaminophen 650 mg 05/31/17 00:52 06/01/17 01:53 Tylenol - PO 650 mg Q4H PRN Administration FEVER OR PAIN Carbidopa/Levodopa 1 combo 05/31/17 07:00 06/01/17 11:58 Sinemet *Cr* 50/200 - PO 1 combo TID@0700,1200,1700 SIENA Administration Docusate Sodium 200 mg 05/30/17 17:32 Colace - PO HS PRN CONSTIPATION Ferrous Sulfate 325 mg 05/31/17 08:00 06/01/17 08:39 Feosol - PO 325 mg BID@0800,1730 SIENA Administration Gabapentin 300 mg 05/30/17 22:00 06/01/17 06:14 Neurontin - PO 300 mg TID SIENA Administration Heparin Sodium (Porcine) 5,000 unit 05/30/17 18:00 06/01/17 06:14 Heparin - SQ 5,000 unit TID SIENA Administration Lidocaine 1 patch 05/31/17 10:00 06/01/17 10:01 Lidoderm Patch - TP 1 patch DAILY SIENA Administration Magnesium Hydroxide 30 ml 05/30/17 17:32 Milk Of Magnesia - PO Q8H PRN CONSTIPATION Metoprolol Tartrate 50 mg 05/30/17 22:00 06/01/17 06:14 Lopressor - PO 50 mg TID SIENA Administration Miscellaneous 1 each 05/30/17 22:00 05/31/17 23:02 Lidoderm Patch Removal MC 1 each DAILY@2200 SIENA Administration Multivitamins/Minerals/Vitamin C 1 tab 05/31/17 10:00 06/01/17 10:00 Tab-A-Vit - PO 1 tab DAILY SIENA Administration Pantoprazole Sodium 40 mg 05/30/17 22:00 06/01/17 10:01 Protonix - PO 40 mg BID SIENA Administration Polyethylene Glycol 17 gm 05/31/17 10:00 06/01/17 10:01 Miralax (For Daily Use) - PO 17 grams DAILY SIENA Administration Pramipexole Dihydrochloride 0.5 mg 05/30/17 22:00 05/31/17 23:01 Mirapex - PO 0.5 mg HS SIENA Administration Pramipexole Dihydrochloride 0.5 mg 05/31/17 07:00 06/01/17 11:59 Mirapex - PO 0.5 mg 0700,1200,1700 SIENA Administration Senna 2 tab 05/31/17 10:00 06/01/17 10:01 Senna - PO 2 tab DAILY SIENA Administration Sodium Phosphate 133 ml 05/30/17 17:32 Fleet Adult Rectal Enema - RC Q7D PRN CONSTIPATION IMAGIN05/30/17 MRI Lumbar Spine -> Large dorsal epidural fluid collection and posterior paraspinal fluid collection spanning the length of the surgical hardware, slightly decreased in size from prior (05/15/17). Resultant moderate dorsal thecal sac compression L4-L5 and L5-S1 unchanged. Empty thecal sac at L4 -L5 with clumping of nearly all the cauda equina pauline roots unchanged, and compatible with arachnoiditis. Significant interval loss of intervertebral disc height at L4-L5 and L5-S1 suggestive of degenerative changes vs infectious discitis. Ddx: post-surgical serosanguinous fluid vs infectious vs pseudomeningocele vs discitis vs arachnoiditis ASSESSMENT/PLAN: 72yo M with PMH of chronic back pain, paroxysmal afib (not on anticoagulation), parkinson's, htn, hld, presents c/o Left LE weakness and pain s/p laminectomy and fusion back surgery admitted to med-surg inpatient for fluid collection at laminectomy site. 1) LE pain/weakness likely 2/2 fluid collection at laminectomy site. - Ddx: post-surgical serosanguinous fluid vs pseudomeningocele vs discitis vs arachnoiditis - no leukocytosis and vital signs stable, making infectious etiology less likely - consider fluid analysis - ID Consult - Dr. Bearden - Neurosurgery Consult - Dr. Martinez - continue home meds of Lidocaine patch, Neurontin, and Tylenol prn for pain 2) Parkinson's - stable - continue home meds of Sinemet and Mirapex 3) htn - continue home med of Lopressor 4) constipation - chronic - continue home meds of Senna, Miralax, Milk of Magnesia prn, and Colace prn 5) osteoporosis - continue home med of Fosamax 6) FEN - Fluids: encourage po - Electrolytes: wnl, continue to monitor - Nutrition: low sodium diet 7) Prophylaxis - DVT ppx with Heparin 5,000U SQ TID - GI ppx with home med of Protonix - deconditioning ppx with PT Consult Visit type - Emergency Visit Emergency Visit: Yes ED Registration Date: 05/30/17 Care time: The patient presented to the Emergency Department on the above date and was hospitalized for further evaluation of their emergent condition. - New Patient This patient is new to me today: No - Critical Care Critical Care patient: No
--- NOTE | 2017-06-01 16:58 | CON.ID ---
Consult Reason for Consultation:: LLE weakness, sharp pains in Lt foot r/o infectious etiology - History of Present Illness History of Present Illness: Asked to evaluate this 72 y.o. male with a history of LBP s/p Spinal fusion/ T12 -S1 laminectomy with rods in April presenting with persistent LBP, and now with LLE weakness and sharp pain in Lt toes. He is not a reliable source of history but states he has been unable to walk due to LLE weakness and is bothered by pain in left foot. He denies fever/chills but has been feeling dizzy lately. 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 Cardio/Vascular: Yes: HTN, Hyperlipdemia, Other Pulmonary: Yes: COPD Gastrointestinal: Yes: Constipation, Hiatal Hernia, Irritable Bowel Disease Hepatobiliary: No: Cirrhosis, Cholelithiasis, Cholecystitis, Choledocholithiasis , Hepatitis A, Hepatitis B, Hepatitis C, Other Renal/: Yes: Renal Inusuff, BPH, Renal Calculi (s/p stent placement) Heme/Onc: No: Anemia, B12 Deficiency, Bleeding Disorder, Cancer, Current Chemotherapy, Current Radiation Therapy, Hemochromatosis, Hypercoaguable State, Myeloproliferative Synd, Sickle Cell Disease, Sickle Cell Trait, Thrombocytopenia, Other Infectious Disease: Yes: Other Psych: Yes: Anxiety, Depression Musculoskeletal: Yes: Chronic low back pain, Osteoarthritis Rheumatology: No: Fibromyalgia, Gout, Lupus, Rheumatoid Arthritis, Sarcoidosis, Vasculitis, Other ENT: No: Allergic Rhinitis, Sinusitis, Other Endocrine: No: Dickenson's Disease, Melrose's Disease, Diabetes Insipidus, Diabetes Mellitus, Hyperparathyroidism, Hyperthyroidism, Hypothyroidism, Osteopenia, SIADH, Other Dermatology: No: Basal Cell, Cellulitis, Eczema, Melanoma, Psoriasis, Squamous Cell, Other - Past Surgical History Past Surgical History: Yes: Hernia Repair - Alcohol/Substance Use Hx Alcohol Use: No History of Substance Use: reports: None - Smoking History Smoking history: Unknown if ever smoked Have you smoked in the past 12 months: No Aproximately how many cigarettes per day: 0 If you are a former smoker, when did you quit?: over 25 years ago - Social History Usual Living Arrangement: Alone 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 Travel: No Home Medications - Allergies Allergies/Adverse Reactions: Allergies Allergy/AdvReac Type Severity Reaction Status Date / Time pregabalin [From Lyrica] Allergy Mild Verified 05/30/17 11:46 pravastatin sodium Allergy Unknown Verified 05/30/17 11:46 [From Pravachol] lactose Allergy Nausea Verified 05/30/17 11:46 morphine Allergy Verified 05/30/17 11:46 peanut Allergy Verified 05/30/17 11:46 Penicillins Allergy Verified 05/30/17 11:46 - Home Medications Home Medications: Ambulatory Orders Pantoprazole Sodium [Protonix -] 40 mg PO BID #60 tablet.ec 07/26/15 Alendronate Na [Fosamax (Weekly)] 70 mg PO WEEKLY 08/22/16 Magnesium Hydrox 2400MG/30Ml [Milk of Magnesia -] 30 ml PO Q8H PRN 01/11/17 Sennosides [Senna -] 2 tab PO DAILY #30 tablet 01/16/17 Sodium Phosphate/Na Biphos [Fleet Adult Rectal Enema -] 133 ml RC WEEKLY PRN #4 enema 01/16/17 Carbidopa/Levodopa *Cr* 50/200 [Sinemet *Cr* 50/200 -] 1 combo PO 0700,1200, 1700 #30 tab 04/29/17 Ferrous Sulfate [Feosol] 325 mg PO BID@0800,1730 #60 tab 04/29/17 Gabapentin [Neurontin -] 300 mg PO TID #120 tab 04/29/17 Lidocaine 5% Patch [Lidoderm -] 1 patch TP DAILY patch 04/29/17 Metoprolol Tartrate [Lopressor -] 50 mg PO TID tablet 04/29/17 Multivitamins [Multivit ([facility] Formulary)] 1 tab PO DAILY tab 04/29/17 Polyethylene Glycol 3350 [Miralax 119 gm Btl -] 17 gm PO DAILY #1 bottle Pramipexole Dihydrochloride [Mirapex -] 0.5 mg PO 0700,1200,1700 #120 tablet Pramipexole Dihydrochloride [Mirapex -] 0.5 mg PO HS #31 tablet 04/29/17 Acetaminophen [Tylenol] 325 mg PO QID PRN 05/14/17 Docusate Sodium [Colace -] 200 mg PO HS PRN 10/11/17 Family Disease History - Family Disease History Family Disease History: [place]: Father (lung ), Mother (gall bladder ), Other: Sister (alive: healthy) Review of Systems - Review of Systems Constitutional: reports: Weakness Eyes: reports: No Symptoms HENT: reports: No Symptoms Neck: reports: No Symptoms Cardiovascular: reports: No Symptoms Respiratory: reports: No Symptoms Gastrointestinal: reports: Constipation (chronic, history of IBS) Genitourinary: reports: No Symptoms (denies incontinence) Integumentary: reports: No Symptoms Endocrine: denies: No Symptoms, Excessive Sweating, Flushing, Increased Hunger, Increased Thirst, Intolerance to Cold, Intolerance to Heat, Unexplained Weight Gain, Unexplained Weight Loss, Other Hematology/Lymphatic: denies: No Symptoms, Easily Bruised, Excessive Bleeding, Swollen Glands, Other Psychiatric: denies: No Symptoms, Altered Sleep Pattern, Anxiety, Depression, Hallucinations, Panic, Paranoia, Suicidal, Other Physical Exam Vital Signs: Vital Signs Temperature 97.9 F 06/01/17 14:39 Pulse Rate 66 06/01/17 14:39 Respiratory Rate 18 06/01/17 14:39 Blood Pressure 126/87 06/01/17 14:39 O2 Sat by Pulse Oximetry (%) 96 06/01/17 08:40 Constitutional: Yes: No Distress, Calm HENT: Yes: Atraumatic Neck: Yes: Supple Cardiovascular: Yes: Regular Rate and Rhythm Respiratory: Yes: CTA Bilaterally Gastrointestinal: Yes: Normal Bowel Sounds, Soft Renal/: No: WNL, Anuria, Bladder Distention, CVA Tenderness - Left, CVA Tenderness - Right, [place] Present, Hematuria, Incontinence, Menses Present, Oliguria, Polyuria, , Scrotal Edema, Urethral Discharge, Vaginal Bleeding, Vaginal Discharge, Other Musculoskeletal: Yes: Back Pain (chronic LBP, no pain in spinal/paraspinal region on palpation), Muscle Weakness Extremities: Yes: WNL Edema: No Integumentary: Yes: WNL Wound/Incision: Yes: Other (back incision site healed) Neurological: Yes: Alert Psychiatric: Yes: Alert Labs: Laboratory Tests 05/30/17 05/30/17 05/30/17 13:58 13:58 22:00 WBC 7.5 D RBC 3.94 L Hgb 13.0 D Hct 38.5 MCV 97.9 H MCH 33.1 MCHC 33.8 RDW 16.6 H Plt Count 295 D MPV 8.2 Neutrophils % 58.7 Lymphocytes % 27.8 D Monocytes % 6.0 Eosinophils % 6.4 H D Basophils % 1.1 Sodium 139 Potassium 4.0 Chloride 108 H Carbon Dioxide 25 Anion Gap 6 L BUN 17 Creatinine 1.0 Creat Clearance w eGFR > 60 Random Glucose 98 Calcium 8.5 Total Bilirubin 0.4 D AST 28 D ALT 20 Alkaline Phosphatase 143 H Total Protein 6.3 L Albumin 3.5 D Urine Color Joan Urine Appearance Slcloudy Urine pH 5.0 Ur Specific [place] 1.020 Urine Protein Negative Urine Glucose (UA) Negative Urine Ketones Trace H Urine Blood Negative Urine Nitrite Negative Urine Bilirubin Negative Urine Urobilinogen 2.0 Ur Leukocyte Esterase Negative Imaging - Results MRI: Report Reviewed (epidural fluid collection 3x5.5x9 cm, fluid in midline posterior paraspinal soft tissue, s/p L4-L5 and L5-S1 discectomy, ? infectious discitis) Problem List - Problems (1) S/P laminectomy Code(s): Z98.890 - OTHER SPECIFIED POSTPROCEDURAL STATES (2) HTN (hypertension) Code(s): I10 - ESSENTIAL (PRIMARY) HYPERTENSION Qualifiers: Hypertension type: essential hypertension Qualified Code(s): I10 - Essential (primary) hypertension; I10 - Essential (primary) hypertension; I10 - Essential (primary) hypertension (3) Hyperlipidemia Code(s): E78.5 - HYPERLIPIDEMIA, UNSPECIFIED Qualifiers: Hyperlipidemia type: unspecified Qualified Code(s): E78.5 - Hyperlipidemia, unspecified; E78.5 - Hyperlipidemia, unspecified; E78.5 - Hyperlipidemia, unspecified (4) Osteoarthritis Code(s): M19.90 - UNSPECIFIED OSTEOARTHRITIS, UNSPECIFIED SITE Qualifiers: Osteoarthritis location: multiple joints Osteoarthritis type: primary Qualified Code(s): M15.0 - Primary generalized (osteo)arthritis; M15.0 - Primary generalized (osteo)arthritis (5) Dizziness Code(s): R42 - DIZZINESS AND GIDDINESS (6) Afib Code(s): I48.91 - UNSPECIFIED ATRIAL FIBRILLATION (7) Anxiety and depression Code(s): F41.8 - OTHER SPECIFIED ANXIETY DISORDERS (8) Back pain Code(s): M54.9 - DORSALGIA, UNSPECIFIED Qualifiers: (9) Enlarged prostate Code(s): N40.0 - BENIGN PROSTATIC HYPERPLASIA WITHOUT LOWER URINRY TRACT SYMP (10) Thoracic or lumbosacral neuritis or radiculitis Code(s): M54.14 - RADICULOPATHY, THORACIC REGION M54.17 - RADICULOPATHY, LUMBOSACRAL REGION (11) Weakness Code(s): R53.1 - WEAKNESS (12) Inflammatory bowel disease Code(s): K52.9 - NONINFECTIVE GASTROENTERITIS AND COLITIS, UNSPECIFIED Assessment/Plan s/p laminectomy/spinal fusion LLE weakness Epidural fluid collection, paraspinal soft tissue fluid r/o infectious discitis - start Vancomycin empirically for now - need neurosurgical input, may need drainage/culture - monitor closely for now will follow up
[2017-06-01] MEDS ORDERED: VANCOMYCIN 1,250 MG in DEXTROSE 5%-WATER - 250 ML IVPB ONE (17:22)
--- NOTE | 2017-06-01 17:48 | PN ---
Teaching Attending Note Name of Resident: Andree Butts ATTENDING PHYSICIAN STATEMENT I saw and evaluated the patient. I reviewed the resident's note and discussed the case with the resident. I agree with the resident's findings and plan as documented. SUBJECTIVE: Patient continues to have difficulty with ambulation. OBJECTIVE: Vital Signs Temperature 97.9 F 06/01/17 14:39 Pulse Rate 66 06/01/17 14:39 Respiratory Rate 18 06/01/17 14:39 Blood Pressure 126/87 06/01/17 14:39 O2 Sat by Pulse Oximetry (%) 96 06/01/17 08:40 CBCD WBC 7.5 K/mm3 (4.0-10.0) D 05/30/17 13:58 RBC 3.94 M/mm3 (4.00-5.60) L 05/30/17 13:58 Hgb 13.0 GM/dL (11.7-16.9) D 05/30/17 13:58 Hct 38.5 % (35.4-49) 05/30/17 13:58 MCV 97.9 fl (80-96) H 05/30/17 13:58 MCHC 33.8 g/dl (32.0-35.9) 05/30/17 13:58 RDW 16.6 % (11.9-15.9) H 05/30/17 13:58 Plt Count 295 K/MM3 (134-434) D 05/30/17 13:58 MPV 8.2 fl (7.5-11.1) 05/30/17 13:58 CMP Sodium 139 mmol/L (136-145) 05/30/17 13:58 Potassium 4.0 mmol/L (3.5-5.1) 05/30/17 13:58 Chloride 108 mmol/L (98-107) H 05/30/17 13:58 Carbon Dioxide 25 mmol/L (21-32) 05/30/17 13:58 Anion Gap 6 (8-16) L 05/30/17 13:58 BUN 17 mg/dL (7-18) 05/30/17 13:58 Creatinine 1.0 mg/dL (0.7-1.3) 05/30/17 13:58 Creat Clearance w eGFR > 60 (>60) 05/30/17 13:58 Random Glucose 98 mg/dL (74-106) 05/30/17 13:58 Calcium 8.5 mg/dL (8.5-10.1) 05/30/17 13:58 Total Bilirubin 0.4 mg/dL (0.2-1.0) D 05/30/17 13:58 AST 28 U/L (15-37) D 05/30/17 13:58 ALT 20 U/L (12-78) 05/30/17 13:58 Alkaline Phosphatase 143 U/L (45-117) H 05/30/17 13:58 Total Protein 6.3 g/dl (6.4-8.2) L 05/30/17 13:58 Albumin 3.5 g/dl (3.4-5.0) D 05/30/17 13:58 Current Medications Generic Name Dose Route Start Last Admin Trade Name Freq PRN Reason Stop Dose Admin Acetaminophen 650 mg 05/31/17 00:52 06/01/17 14:41 Tylenol - PO 650 mg Q4H PRN Administration FEVER OR PAIN Carbidopa/Levodopa 1 combo 05/31/17 07:00 06/01/17 17:16 Sinemet *Cr* 50/200 - PO 1 combo TID@0700,1200,1700 SIENA Administration Docusate Sodium 200 mg 05/30/17 17:32 Colace - PO HS PRN CONSTIPATION Ferrous Sulfate 325 mg 05/31/17 08:00 06/01/17 17:16 Feosol - PO 325 mg BID@0800,1730 SIENA Administration Gabapentin 300 mg 05/30/17 22:00 06/01/17 14:41 Neurontin - PO 300 mg TID SIENA Administration Heparin Sodium (Porcine) 5,000 unit 05/30/17 18:00 06/01/17 14:42 Heparin - SQ Not Given TID SIENA Vancomycin HCl 1,250 mg/ 250 mls @ 166.667 mls/hr 06/01/17 17:22 Dextrose IVPB 06/01/17 18:51 ONCE ONE Protocol Lidocaine 1 patch 05/31/17 10:00 06/01/17 10:01 Lidoderm Patch - TP 1 patch DAILY SIENA Administration Magnesium Hydroxide 30 ml 05/30/17 17:32 Milk Of Magnesia - PO Q8H PRN CONSTIPATION Metoprolol Tartrate 50 mg 05/30/17 22:00 06/01/17 14:41 Lopressor - PO 50 mg TID SIENA Administration Miscellaneous 1 each 05/30/17 22:00 05/31/17 23:02 Lidoderm Patch Removal MC 1 each DAILY@2200 SIENA Administration Multivitamins/Minerals/Vitamin C 1 tab 05/31/17 10:00 06/01/17 10:00 Tab-A-Vit - PO 1 tab DAILY SIENA Administration Pantoprazole Sodium 40 mg 05/30/17 22:00 06/01/17 10:01 Protonix - PO 40 mg BID SIENA Administration Polyethylene Glycol 17 gm 05/31/17 10:00 06/01/17 10:01 Miralax (For Daily Use) - PO 17 grams DAILY SIENA Administration Pramipexole Dihydrochloride 0.5 mg 05/30/17 22:00 05/31/17 23:01 Mirapex - PO 0.5 mg HS ISENA Administration Pramipexole Dihydrochloride 0.5 mg 05/31/17 07:00 06/01/17 17:16 Mirapex - PO 0.5 mg 0700,1200,1700 SIENA Administration Senna 2 tab 05/31/17 10:00 06/01/17 10:01 Senna - PO 2 tab DAILY SIENA Administration Sodium Phosphate 133 ml 05/30/17 17:32 Fleet Adult Rectal Enema - RC Q7D PRN CONSTIPATION Home Medications Medication Instructions Recorded Pantoprazole Sodium [Protonix -] 40 mg PO BID #60 tablet.ec 07/26/15 Alendronate Na [Fosamax (Weekly)] 70 mg PO WEEKLY 08/22/16 Magnesium Hydrox 2400MG/30Ml [Milk 30 ml PO Q8H PRN 01/11/17 of Magnesia -] Sennosides [Senna -] 2 tab PO DAILY #30 tablet 01/16/17 Sodium Phosphate/Na Biphos [Fleet 133 ml RC WEEKLY PRN #4 enema 01/16/17 Adult Rectal Enema -] Carbidopa/Levodopa *Cr* 50/200 1 combo PO 0700,1200,1700 #30 tab 04/29/17 [Sinemet *Cr* 50/200 -] Ferrous Sulfate [Feosol] 325 mg PO BID@0800,1730 #60 tab 04/29/17 Gabapentin [Neurontin -] 300 mg PO TID #120 tab 04/29/17 Lidocaine 5% Patch [Lidoderm -] 1 patch TP DAILY patch 04/29/17 Metoprolol Tartrate [Lopressor -] 50 mg PO TID tablet 04/29/17 Multivitamins [Multivit ([facility] 1 tab PO DAILY tab 04/29/17 Formulary)] Polyethylene Glycol 3350 [Miralax 17 gm PO DAILY #1 bottle 04/29/17 119 gm Btl -] Pramipexole Dihydrochloride 0.5 mg PO 0700,1200,1700 #120 04/29/17 [Mirapex -] tablet Pramipexole Dihydrochloride 0.5 mg PO HS #31 tablet 04/29/17 [Mirapex -] Acetaminophen [Tylenol] 325 mg PO QID PRN 05/14/17 Docusate Sodium [Colace -] 200 mg PO HS PRN 05/14/17 05/30/17 MRI Lumbar Spine -> Large dorsal epidural fluid collection and posterior paraspinal fluid collection spanning the length of the surgical hardware, slightly decreased in size from prior (05/15/17). Resultant moderate dorsal thecal sac compression L4-L5 and L5-S1 unchanged. Empty thecal sac at L4 -L5 with clumping of nearly all the cauda equina pauline roots unchanged, and compatible with arachnoiditis. Significant interval loss of intervertebral disc height at L4-L5 and L5-S1 suggestive of degenerative changes vs infectious discitis. PE: per resident's note ASSESSMENT/PLAN: 72yo M with PMH of chronic back pain, paroxysmal afib (not on anticoagulation), parkinson's, htn, hld, presents c/o Left LE weakness and pain s/p laminectomy and fusion back surgery admitted to med-surg inpatient for fluid collection at laminectomy site. # Left LE pain/weakness continues with fluid collection 5.5cm , waiting for neurosurgery's evaluation. Patient has no fever or chills, having difficulty with ambulation , ID consult requested, since seen the patient in the past for possible infection at the collection site. #Parkinson's stable continue home meds of Sinemet and Mirapex # HTN continue home med of Lopressor # Chronic constipation continue home meds of Senna, Miralax, Milk of Magnesia prn, and Colace prn # osteoporosis , continue home med. Prophylaxis DVT ppx with Heparin 5,000U SQ TID
[2017-06-01] MEDS: LIDOCAINE PATCH REMOVAL MC SCH (23:33)
[2017-06-02] MEDS ORDERED: PT OWN MED DRAWER 7, Y5N ONE ×5 (05:44→21:52)
[2017-06-02] MEDS: ACETAMINOPHEN 325 MG TABLET (FP) PO PRN ×3 (05:51→21:54)
[2017-06-02] MEDS: GABAPENTIN 300 MG CAPSULE (FP) PO SCH ×3 (05:51→21:55)
[2017-06-02] MEDS: HEPARIN NA (PORCINE) 5,000 UNITS/ML 1ML VIAL SQ SCH ×3 (05:51→21:55)
[2017-06-02] MEDS: METOPROLOL TARTRATE 50 MG TABLET (FP) PO SCH ×3 (05:51→21:55)
[2017-06-02] MEDS: PRAMIPEXOLE DIHYDROCHLORIDE 0.5 MG TABLET PO SCH ×4 (06:42→21:55)
[2017-06-02 07:15] LABS: ALBUMIN 3.2 g/dl (3.4-5.0); ANION GAP 10 (8-16); CO2 22 mmol/L (21-32); GLUCOSE,RANDOM 92 mg/dL (74-106); SGOT/AST 20 U/L (15-37); SGPT/ALT 42 U/L (12-78)
[2017-06-02 07:18] LABS: ALK PHOS 113 U/L (45-117); BILIRUBIN,TOTAL 0.4 mg/dL (0.2-1.0); TOT PROT 5.8 g/dl (6.4-8.2)
[2017-06-02] MEDS: FERROUS SO4 325 MG TABLET (FP) PO SCH ×2 (08:41→17:09)
[2017-06-02] MEDS: PANTOPRAZOLE 40 MG TABLET (FP) PO SCH ×2 (09:23→21:55)
[2017-06-02] MEDS: SENNOSIDES 8.6MG TABLET (FP) PO SCH (09:24)
[2017-06-02] MEDS: MULTIVITAMINS (DAILY MVI) TABLET (FP) PO SCH (09:24)
[2017-06-02] MEDS: LIDOCAINE 5% TOPICAL PATCH TP SCH (09:24)
[2017-06-02] MEDS: POLYETHYLENE GLYCOL 3350 119 GM BTL PO SCH (09:24)
[2017-06-02] MEDS: oxyCODONE HCL 5 MG TABLET PO PRN ×2 (10:10→21:55)
--- NOTE | 2017-06-02 11:53 | PN ---
Physical Exam: SUBJECTIVE: Patient seen and examined. Pt c/o pain to farrukh feet L>R. Oxycodone 5mg po q4hr prn added for pain. Pt observed later in the day working with PT walking up and down the [place] with a walker. No events overnight. OBJECTIVE: Vital Signs Period Temp Pulse Resp BP Sys/Suazo Pulse Ox Last 24 Hr 97.9 F-98.3 F 60-66 18-20 121-144/72-87 96 GENERAL: The patient is awake, alert, and fully oriented, in no acute distress. HEAD: Normal with no signs of trauma. EYES: Extraocular movements intact, sclera anicteric, conjunctiva clear. No ptosis. LUNGS: Breath sounds equal, clear to auscultation bilaterally, no wheezes, no crackles, no accessory muscle use. HEART: Regular rate and rhythm, S1, S2 without murmur, rub or gallop. ABDOMEN: Soft, nontender, nondistended. EXTREMITIES: Warm, well-perfused, no edema. Sensation intact farrukh, pt c/o nerve/ shooting pain to L>R LE. NEUROLOGICAL: Normal speech, gait unsteady -> working with PT. PSYCH: Normal mood, normal affect. SKIN: Warm, dry, normal turgor, no rashes or lesions noted Laboratory Results - last 24 hr 06/02/17 06:10 Sodium 138 Potassium 3.9 Chloride 106 Carbon Dioxide 22 Anion Gap 10 BUN 17 Creatinine 1.0 Creat Clearance w eGFR > 60 Random Glucose 92 Calcium 8.0 L Total Bilirubin 0.4 AST 20 D ALT 42 D Alkaline Phosphatase 113 D Total Protein 5.8 L Albumin 3.2 L Active Medications Generic Name Dose Route Start Last Admin Trade Name Freq PRN Reason Stop Dose Admin Acetaminophen 650 mg 05/31/17 00:52 06/02/17 10:10 Tylenol - PO 650 mg Q4H PRN Administration FEVER OR PAIN Carbidopa/Levodopa 1 combo 05/31/17 07:00 06/02/17 06:41 Sinemet *Cr* 50/200 - PO 1 combo TID@0700,1200,1700 SIENA Administration Docusate Sodium 200 mg 05/30/17 17:32 Colace - PO HS PRN CONSTIPATION Ferrous Sulfate 325 mg 05/31/17 08:00 06/02/17 08:41 Feosol - PO 325 mg BID@0800,1730 SIENA Administration Gabapentin 300 mg 05/30/17 22:00 06/02/17 05:51 Neurontin - PO 300 mg TID SIENA Administration Heparin Sodium (Porcine) 5,000 unit 05/30/17 18:00 06/02/17 05:51 Heparin - SQ 5,000 unit TID SIENA Administration Lidocaine 1 patch 05/31/17 10:00 06/02/17 09:24 Lidoderm Patch - TP 1 patch DAILY SIENA Administration Magnesium Hydroxide 30 ml 05/30/17 17:32 Milk Of Magnesia - PO Q8H PRN CONSTIPATION Metoprolol Tartrate 50 mg 05/30/17 22:00 06/02/17 05:51 Lopressor - PO 50 mg TID SIENA Administration Miscellaneous 1 each 05/30/17 22:00 06/01/17 23:33 Lidoderm Patch Removal MC 1 each DAILY@2200 SIENA Administration Multivitamins/Minerals/Vitamin C 1 tab 05/31/17 10:00 06/02/17 09:24 Tab-A-Vit - PO 1 tab DAILY SIENA Administration Oxycodone HCl 5 mg 06/02/17 09:19 06/02/17 10:10 Roxicodone - PO 5 mg Q4H PRN Administration PAIN Pantoprazole Sodium 40 mg 05/30/17 22:00 06/02/17 09:23 Protonix - PO 40 mg BID SIENA Administration Polyethylene Glycol 17 gm 05/31/17 10:00 06/02/17 09:24 Miralax (For Daily Use) - PO 17 grams DAILY SIENA Administration Pramipexole Dihydrochloride 0.5 mg 05/30/17 22:00 06/01/17 23:31 Mirapex - PO 0.5 mg HS SIENA Administration Pramipexole Dihydrochloride 0.5 mg 05/31/17 07:00 06/02/17 06:42 Mirapex - PO 0.5 mg 0700,1200,1700 SIENA Administration Senna 2 tab 05/31/17 10:00 06/02/17 09:24 Senna - PO 2 tab DAILY SIENA Administration Sodium Phosphate 133 ml 05/30/17 17:32 Fleet Adult Rectal Enema - RC Q7D PRN CONSTIPATION ASSESSMENT/PLAN: 72yo M with PMH of chronic back pain, paroxysmal afib (not on anticoagulation), parkinson's, htn, hld, presents c/o Left LE weakness and pain s/p laminectomy and fusion back surgery admitted to med-surg inpatient for fluid collection at laminectomy site. 1) LE pain/weakness likely 2/2 fluid collection at laminectomy site. - Ddx: post-surgical serosanguinous fluid vs pseudomeningocele vs discitis vs arachnoiditis - no leukocytosis and vital signs stable, making infectious etiology less likely - consider fluid analysis - ID (Dr. John) recs appreciated: - f/u esr, crp - no antibiotics at this time - Neurosurgery Consult - Dr. Queen - continue home meds of Lidocaine patch, Neurontin, and Tylenol prn for pain - Oxycodone 5mg po q4hr prn added for pain 2) Parkinson's - stable - continue home meds of Sinemet and Mirapex 3) htn - continue home med of Lopressor 4) constipation - chronic - continue home meds of Senna, Miralax, Milk of Magnesia prn, and Colace prn 5) osteoporosis - continue home med of Fosamax 6) FEN - Fluids: encourage po - Electrolytes: wnl, continue to monitor - Nutrition: low sodium diet 7) Prophylaxis - DVT ppx with Heparin 5,000U SQ TID - GI ppx with home med of Protonix - deconditioning ppx with PT Visit type - Emergency Visit Emergency Visit: Yes ED Registration Date: 05/30/17 Care time: The patient presented to the Emergency Department on the above date and was hospitalized for further evaluation of their emergent condition. - New Patient This patient is new to me today: No - Critical Care Critical Care patient: No
--- NOTE | 2017-06-02 12:55 | PN ---
Progress Note, Physician History of Present Illness: main issue pain and numbness in his legs patient walking a little bit with the walker sitting in chair - Current Medication List Current Medications: Active Medications Acetaminophen (Tylenol -) 650 mg PO Q4H PRN PRN Reason: FEVER OR PAIN Last Admin: 06/02/17 10:10 Dose: 650 mg Carbidopa/Levodopa (Sinemet *Cr* 50/200 -) 1 combo PO TID@0700,1200,1700 [facility] Last Admin: 06/02/17 11:57 Dose: 1 combo Docusate Sodium (Colace -) 200 mg PO HS PRN PRN Reason: CONSTIPATION Ferrous Sulfate (Feosol -) 325 mg PO BID@0800,1730 [facility] Last Admin: 06/02/17 08:41 Dose: 325 mg Gabapentin (Neurontin -) 300 mg PO TID [facility] Last Admin: 06/02/17 05:51 Dose: 300 mg Heparin Sodium (Porcine) (Heparin -) 5,000 unit SQ TID [facility] Last Admin: 06/02/17 05:51 Dose: 5,000 unit Lidocaine (Lidoderm Patch -) 1 patch TP DAILY [facility] Last Admin: 06/02/17 09:24 Dose: 1 patch Magnesium Hydroxide (Milk Of Magnesia -) 30 ml PO Q8H PRN PRN Reason: CONSTIPATION Metoprolol Tartrate (Lopressor -) 50 mg PO TID [facility] Last Admin: 06/02/17 05:51 Dose: 50 mg Miscellaneous (Lidoderm Patch Removal) 1 each MC DAILY@2200 [facility] Last Admin: 06/01/17 23:33 Dose: 1 each Multivitamins/Minerals/Vitamin C (Tab-A-Vit -) 1 tab PO DAILY [facility] Last Admin: 06/02/17 09:24 Dose: 1 tab Oxycodone HCl (Roxicodone -) 5 mg PO Q4H PRN PRN Reason: PAIN Last Admin: 06/02/17 10:10 Dose: 5 mg Pantoprazole Sodium (Protonix -) 40 mg PO BID [facility] Last Admin: 06/02/17 09:23 Dose: 40 mg Polyethylene Glycol (Miralax (For Daily Use) -) 17 gm PO DAILY [facility] Last Admin: 06/02/17 09:24 Dose: 17 grams Pramipexole Dihydrochloride (Mirapex -) 0.5 mg PO HS [facility] Last Admin: 06/01/17 23:31 Dose: 0.5 mg Pramipexole Dihydrochloride (Mirapex -) 0.5 mg PO 0700,1200,1700 [facility] Last Admin: 06/02/17 11:57 Dose: 0.5 mg Senna (Senna -) 2 tab PO DAILY [facility] Last Admin: 06/02/17 09:24 Dose: 2 tab Sodium Phosphate (Fleet Adult Rectal Enema -) 133 ml RC Q7D PRN PRN Reason: CONSTIPATION - Objective Vital Signs: Vital Signs Temperature 98.3 F 06/02/17 09:00 Pulse Rate 60 06/02/17 09:00 Respiratory Rate 20 06/02/17 09:00 Blood Pressure 144/74 06/02/17 09:00 O2 Sat by Pulse Oximetry (%) 96 06/01/17 22:00 Constitutional: Yes: Calm, Mild Distress HENT: Yes: Atraumatic Neck: Yes: Supple, Trachea Midline Cardiovascular: Yes: Regular Rate and Rhythm Respiratory: Yes: Regular, CTA Bilaterally Gastrointestinal: Yes: Normal Bowel Sounds, Soft Musculoskeletal: Yes: Back Pain, Other Extremities: Yes: Other Integumentary: Yes: Other Neurological: Yes: Numbness (in ext) Psychiatric: Yes: Other Labs: CBC, BMP 06/02/17 06:10 - ....Imaging MRI: Report Reviewed, Image Reviewed Assessment/Plan Problem List - Problems (1) S/P laminectomy Code(s): Z98.890 - OTHER SPECIFIED POSTPROCEDURAL STATES (2) HTN (hypertension) Code(s): I10 - ESSENTIAL (PRIMARY) HYPERTENSION Qualifiers: Hypertension type: essential hypertension Qualified Code(s): I10 - Essential (primary) hypertension; I10 - Essential (primary) hypertension; I10 - Essential (primary) hypertension (3) Hyperlipidemia Code(s): E78.5 - HYPERLIPIDEMIA, UNSPECIFIED Qualifiers: Hyperlipidemia type: unspecified Qualified Code(s): E78.5 - Hyperlipidemia, unspecified; E78.5 - Hyperlipidemia, unspecified; E78.5 - Hyperlipidemia, unspecified (4) Osteoarthritis Code(s): M19.90 - UNSPECIFIED OSTEOARTHRITIS, UNSPECIFIED SITE Qualifiers: Osteoarthritis location: multiple joints Osteoarthritis type: primary Qualified Code(s): M15.0 - Primary generalized (osteo)arthritis; M15.0 - Primary generalized (osteo)arthritis (5) Dizziness Code(s): R42 - DIZZINESS AND GIDDINESS (6) Afib Code(s): I48.91 - UNSPECIFIED ATRIAL FIBRILLATION (7) Anxiety and depression Code(s): F41.8 - OTHER SPECIFIED ANXIETY DISORDERS (8) Back pain Code(s): M54.9 - DORSALGIA, UNSPECIFIED Qualifiers: (9) Enlarged prostate Code(s): N40.0 - BENIGN PROSTATIC HYPERPLASIA WITHOUT LOWER URINRY TRACT SYMP (10) Thoracic or lumbosacral neuritis or radiculitis Code(s): M54.14 - RADICULOPATHY, THORACIC REGION M54.17 - RADICULOPATHY, LUMBOSACRAL REGION (11) Weakness Code(s): R53.1 - WEAKNESS (12) Inflammatory bowel disease Code(s): K52.9 - NONINFECTIVE GASTROENTERITIS AND COLITIS, UNSPECIFIED plan will send esr and crp no abx at this moment patient will need neurosrugery evaluation also he is going to need aspiration
--- NOTE | 2017-06-02 19:32 | PN ---
Teaching Attending Note Name of Resident: Andree Butts ATTENDING PHYSICIAN STATEMENT I saw and evaluated the patient. I reviewed the resident's note and discussed the case with the resident. I agree with the resident's findings and plan as documented. SUBJECTIVE: Patient is c/o unable to ambulate, c/o having low back pain. OBJECTIVE: Vital Signs Temperature 97.6 F 06/02/17 14:22 Pulse Rate 62 06/02/17 14:22 Respiratory Rate 20 06/02/17 09:00 Blood Pressure 144/74 06/02/17 09:00 O2 Sat by Pulse Oximetry (%) 96 06/01/17 22:00 CBCD WBC 7.5 K/mm3 (4.0-10.0) D 05/30/17 13:58 RBC 3.94 M/mm3 (4.00-5.60) L 05/30/17 13:58 Hgb 13.0 GM/dL (11.7-16.9) D 05/30/17 13:58 Hct 38.5 % (35.4-49) 05/30/17 13:58 MCV 97.9 fl (80-96) H 05/30/17 13:58 MCHC 33.8 g/dl (32.0-35.9) 05/30/17 13:58 RDW 16.6 % (11.9-15.9) H 05/30/17 13:58 Plt Count 295 K/MM3 (134-434) D 05/30/17 13:58 MPV 8.2 fl (7.5-11.1) 05/30/17 13:58 CMP Sodium 138 mmol/L (136-145) 06/02/17 06:10 Potassium 3.9 mmol/L (3.5-5.1) 06/02/17 06:10 Chloride 106 mmol/L (98-107) 06/02/17 06:10 Carbon Dioxide 22 mmol/L (21-32) 06/02/17 06:10 Anion Gap 10 (8-16) 06/02/17 06:10 BUN 17 mg/dL (7-18) 06/02/17 06:10 Creatinine 1.0 mg/dL (0.7-1.3) 06/02/17 06:10 Creat Clearance w eGFR > 60 (>60) 06/02/17 06:10 Random Glucose 92 mg/dL (74-106) 06/02/17 06:10 Calcium 8.0 mg/dL (8.5-10.1) L 06/02/17 06:10 Total Bilirubin 0.4 mg/dL (0.2-1.0) 06/02/17 06:10 AST 20 U/L (15-37) D 06/02/17 06:10 ALT 42 U/L (12-78) D 06/02/17 06:10 Alkaline Phosphatase 113 U/L (45-117) D 06/02/17 06:10 Total Protein 5.8 g/dl (6.4-8.2) L 06/02/17 06:10 Albumin 3.2 g/dl (3.4-5.0) L 06/02/17 06:10 Current Medications Generic Name Dose Route Start Last Admin Trade Name Freq PRN Reason Stop Dose Admin Acetaminophen 650 mg 05/31/17 00:52 06/02/17 10:10 Tylenol - PO 650 mg Q4H PRN Administration FEVER OR PAIN Carbidopa/Levodopa 1 combo 05/31/17 07:00 06/02/17 17:09 Sinemet *Cr* 50/200 - PO 1 combo TID@0700,1200,1700 SIENA Administration Docusate Sodium 200 mg 05/30/17 17:32 Colace - PO HS PRN CONSTIPATION Ferrous Sulfate 325 mg 05/31/17 08:00 06/02/17 17:09 Feosol - PO 325 mg BID@0800,1730 SIENA Administration Gabapentin 300 mg 05/30/17 22:00 06/02/17 13:26 Neurontin - PO 300 mg TID SIENA Administration Heparin Sodium (Porcine) 5,000 unit 05/30/17 18:00 06/02/17 13:26 Heparin - SQ 5,000 unit TID SIENA Administration Lidocaine 1 patch 05/31/17 10:00 06/02/17 09:24 Lidoderm Patch - TP 1 patch DAILY SIENA Administration Magnesium Hydroxide 30 ml 05/30/17 17:32 Milk Of Magnesia - PO Q8H PRN CONSTIPATION Metoprolol Tartrate 50 mg 05/30/17 22:00 06/02/17 13:26 Lopressor - PO 50 mg TID SIENA Administration Miscellaneous 1 each 05/30/17 22:00 06/01/17 23:33 Lidoderm Patch Removal MC 1 each DAILY@2200 SIENA Administration Multivitamins/Minerals/Vitamin C 1 tab 05/31/17 10:00 06/02/17 09:24 Tab-A-Vit - PO 1 tab DAILY SIENA Administration Oxycodone HCl 5 mg 06/02/17 09:19 06/02/17 10:10 Roxicodone - PO 5 mg Q4H PRN Administration PAIN Pantoprazole Sodium 40 mg 05/30/17 22:00 06/02/17 09:23 Protonix - PO 40 mg BID SIENA Administration Polyethylene Glycol 17 gm 05/31/17 10:00 06/02/17 09:24 Miralax (For Daily Use) - PO 17 grams DAILY [facility]IENA Administration Pramipexole Dihydrochloride 0.5 mg 05/30/17 22:00 06/01/17 23:31 Mirapex - PO 0.5 mg HS SIENA Administration Pramipexole Dihydrochloride 0.5 mg 05/31/17 07:00 06/02/17 17:09 Mirapex - PO 0.5 mg 0700,1200,1700 SIENA Administration Senna 2 tab 05/31/17 10:00 06/02/17 09:24 Senna - PO 2 tab DAILY SIENA Administration Sodium Phosphate 133 ml 05/30/17 17:32 Fleet Adult Rectal Enema - RC Q7D PRN CONSTIPATION Home Medications Medication Instructions Recorded Pantoprazole Sodium [Protonix -] 40 mg PO BID #60 tablet.ec 07/26/15 Alendronate Na [Fosamax (Weekly)] 70 mg PO WEEKLY 08/22/16 Magnesium Hydrox 2400MG/30Ml [Milk 30 ml PO Q8H PRN 01/11/17 of Magnesia -] Sennosides [Senna -] 2 tab PO DAILY #30 tablet 01/16/17 Sodium Phosphate/Na Biphos [Fleet 133 ml RC WEEKLY PRN #4 enema 01/16/17 Adult Rectal Enema -] Carbidopa/Levodopa *Cr* 50/200 1 combo PO 0700,1200,1700 #30 tab 04/29/17 [Sinemet *Cr* 50/200 -] Ferrous Sulfate [Feosol] 325 mg PO BID@0800,1730 #60 tab 04/29/17 Gabapentin [Neurontin -] 300 mg PO TID #120 tab 04/29/17 Lidocaine 5% Patch [Lidoderm -] 1 patch TP DAILY patch 04/29/17 Metoprolol Tartrate [Lopressor -] 50 mg PO TID tablet 04/29/17 Multivitamins [Multivit ([facility] 1 tab PO DAILY tab 04/29/17 Formulary)] Polyethylene Glycol 3350 [Miralax 17 gm PO DAILY #1 bottle 04/29/17 119 gm Btl -] Pramipexole Dihydrochloride 0.5 mg PO 0700,1200,1700 #120 04/29/17 [Mirapex -] tablet Pramipexole Dihydrochloride 0.5 mg PO HS #31 tablet 04/29/17 [Mirapex -] Acetaminophen [Tylenol] 325 mg PO QID PRN 05/14/17 Docusate Sodium [Colace -] 200 mg PO HS PRN 05/14/17 PE: as per resident. 05/30/17 MRI Lumbar Spine -> Large dorsal epidural fluid collection and posterior paraspinal fluid collection spanning the length of the surgical hardware, slightly decreased in size from prior (05/15/17). Resultant moderate dorsal thecal sac compression L4-L5 and L5-S1 unchanged. Empty thecal sac at L4 -L5 with clumping of nearly all the cauda equina pauline roots unchanged, and compatible with arachnoiditis. Significant interval loss of intervertebral disc height at L4-L5 and L5-S1 suggestive of degenerative changes vs infectious discitis. ASSESSMENT AND PLAN: 72yo M with PMH of chronic back pain, paroxysmal afib (not on anticoagulation), parkinson's, htn, hld, presents c/o Left LE weakness and pain s/p laminectomy and fusion back surgery admitted to med-surg inpatient for fluid collection at laminectomy site. # Left LE pain/weakness with fluid collection 5.5cm with DDX of Hematoma/ Infection/serasingiounous changes as per mRI report. Patient has no fever or chills, having difficulty with ambulation recently had a surgery by , ID consult since seen the patient in the past for possible infection at the collection site. #Parkinson's stable continue home meds of Sinemet and Mirapex # htn continue home med of Lopressor # constipation chronic, continue home meds of Senna, Miralax, Milk of Magnesia prn, and Colace prn # osteoporosis , continue home med of Fosamax Prophylaxis DVT ppx with Heparin 5,000U SQ TID
[2017-06-02] MEDS: LIDOCAINE PATCH REMOVAL MC SCH (21:56)
[2017-06-03] MEDS: PRAMIPEXOLE DIHYDROCHLORIDE 0.5 MG TABLET PO SCH ×2 (06:46→12:00)
[2017-06-03] MEDS: HEPARIN NA (PORCINE) 5,000 UNITS/ML 1ML VIAL SQ SCH ×2 (06:47→14:55)
[2017-06-03] MEDS: METOPROLOL TARTRATE 50 MG TABLET (FP) PO SCH ×2 (06:47→14:55)
[2017-06-03] MEDS: GABAPENTIN 300 MG CAPSULE (FP) PO SCH ×2 (06:47→14:55)
[2017-06-03 07:56] LABS: EOSINOPHIL 7.6 % (0-4.5); MCH 32.7 pg (25.7-33.7); MCHC 33.1 g/dl (32.0-35.9); MEAN CELL VOLUME 98.6 fl (80-96); MEAN PLT VOLUME 8.3 fl (7.5-11.1); NEUTROPHILS 46.9 % (42.8-82.8); PLATELET COUNT 254 K/MM3 (134-434); RDW 16.8 % (11.9-15.9); WHITE BLOOD COUNT 8.1 K/mm3 (4.0-10.0)
[2017-06-03] MEDS: FERROUS SO4 325 MG TABLET (FP) PO SCH (09:09)
[2017-06-03] MEDS ORDERED: PT OWN MED DRAWER 7, Y5N ONE ×2 (09:35→11:59)
[2017-06-03] MEDS: oxyCODONE HCL 5 MG TABLET PO PRN (09:41)
[2017-06-03] MEDS: PANTOPRAZOLE 40 MG TABLET (FP) PO SCH (09:42)
[2017-06-03] MEDS: LIDOCAINE 5% TOPICAL PATCH TP SCH (09:42)
[2017-06-03] MEDS: POLYETHYLENE GLYCOL 3350 119 GM BTL PO SCH (09:42)
[2017-06-03] MEDS: SENNOSIDES 8.6MG TABLET (FP) PO SCH (09:42)
[2017-06-03] MEDS: MULTIVITAMINS (DAILY MVI) TABLET (FP) PO SCH (09:42)
[2017-06-03] MEDS: ACETAMINOPHEN 325 MG TABLET (FP) PO PRN (09:42)
--- NOTE | 2017-06-03 10:30 | PN ---
Physical Exam: SUBJECTIVE: Patient seen and examined. Pt's pain is better controlled now. Pt looking forward to hear what Neurosurgery wants to do for him. No event overnight. OBJECTIVE: Vital Signs Period Temp Pulse Resp BP Sys/Suazo Pulse Ox Last 24 Hr 97.6 F-97.9 F 56-62 18-18 117-122/69-76 GENERAL: The patient is awake, alert, and fully oriented, in no acute distress. HEAD: Normal with no signs of trauma. EYES: Extraocular movements intact, sclera anicteric, conjunctiva clear. No ptosis. ENT: Moist mucous membranes. NECK: Trachea midline, supple. LUNGS: Breath sounds equal, clear to auscultation bilaterally, no wheezes, no crackles, no accessory muscle use. HEART: Regular rate and rhythm, S1, S2 without murmur, rub or gallop. EXTREMITIES: Warm, well-perfused, no edema. Pain better controlled. Sensation intact farrukh. PSYCH: Normal mood, normal affect. SKIN: Warm, dry, normal turgor, no rashes or lesions noted Laboratory Results - last 24 hr 06/03/17 06/03/17 06/03/17 06:10 06:10 06:10 WBC 8.1 RBC 3.85 L Hgb 12.6 Hct 38.0 MCV 98.6 H MCH 32.7 MCHC 33.1 RDW 16.8 H Plt Count 254 MPV 8.3 Neutrophils % 46.9 D Lymphocytes % 38.1 D Monocytes % 6.4 Eosinophils % 7.6 H Basophils % 1.0 ESR 20 C-Reactive Protein 0.7 H D Active Medications Generic Name Dose Route Start Last Admin Trade Name Kaitlynn PRN Reason Stop Dose Admin Acetaminophen 650 mg 05/31/17 00:52 06/03/17 09:42 Tylenol - PO 650 mg Q4H PRN Administration FEVER OR PAIN Carbidopa/Levodopa 1 combo 05/31/17 07:00 06/03/17 06:47 Sinemet *Cr* 50/200 - PO 1 combo TID@0700,1200,1700 SIENA Administration Docusate Sodium 200 mg 05/30/17 17:32 Colace - PO HS PRN CONSTIPATION Ferrous Sulfate 325 mg 05/31/17 08:00 06/03/17 09:09 Feosol - PO 325 mg BID@0800,1730 SIENA Administration Gabapentin 300 mg 05/30/17 22:00 06/03/17 06:47 Neurontin - PO 300 mg TID SIENA Administration Heparin Sodium (Porcine) 5,000 unit 05/30/17 18:00 06/03/17 06:47 Heparin - SQ 5,000 unit TID SIENA Administration Lidocaine 1 patch 05/31/17 10:00 06/03/17 09:42 Lidoderm Patch - TP 1 patch DAILY SIENA Administration Magnesium Hydroxide 30 ml 05/30/17 17:32 Milk Of Magnesia - PO Q8H PRN CONSTIPATION Metoprolol Tartrate 50 mg 05/30/17 22:00 06/03/17 06:47 Lopressor - PO 50 mg TID SIENA Administration Miscellaneous 1 each 05/30/17 22:00 06/02/17 21:56 Lidoderm Patch Removal MC 1 each DAILY@2200 SIENA Administration Multivitamins/Minerals/Vitamin C 1 tab 05/31/17 10:00 06/03/17 09:42 Tab-A-Vit - PO 1 tab DAILY SIENA Administration Oxycodone HCl 5 mg 06/02/17 09:19 06/03/17 09:41 Roxicodone - PO 5 mg Q4H PRN Administration PAIN Pantoprazole Sodium 40 mg 05/30/17 22:00 06/03/17 09:42 Protonix - PO 40 mg BID SIENA Administration Polyethylene Glycol 17 gm 05/31/17 10:00 06/03/17 09:42 Miralax (For Daily Use) - PO 17 grams DAILY SIENA Administration Pramipexole Dihydrochloride 0.5 mg 05/30/17 22:00 06/02/17 21:55 Mirapex - PO 0.5 mg HS SIENA Administration Pramipexole Dihydrochloride 0.5 mg 05/31/17 07:00 06/03/17 06:46 Mirapex - PO 0.5 mg 0700,1200,1700 SIENA Administration Senna 2 tab 05/31/17 10:00 06/03/17 09:42 Senna - PO 2 tab DAILY SIENA Administration Sodium Phosphate 133 ml 05/30/17 17:32 Fleet Adult Rectal Enema - RC Q7D PRN CONSTIPATION ASSESSMENT/PLAN: 72yo M with PMH of chronic back pain, paroxysmal afib (not on anticoagulation), parkinson's, htn, hld, presents c/o Left LE weakness and pain s/p laminectomy and fusion back surgery admitted to med-surg inpatient for fluid collection at laminectomy site. 1) LE pain/weakness likely 2/2 fluid collection at laminectomy site. - Ddx: post-surgical serosanguinous fluid vs pseudomeningocele vs discitis vs arachnoiditis - no leukocytosis and vital signs stable, making infectious etiology less likely - consider fluid analysis - ID (Dr. John) recs appreciated: - ESR wnl, CRP slightly elevated - Neurosurgery Consult - Dr. Queen - continue home meds of Lidocaine patch, Neurontin, and Tylenol prn for pain - Oxycodone 5mg po q4hr prn added for pain 2) Parkinson's - stable - continue home meds of Sinemet and Mirapex 3) htn - continue home med of Lopressor 4) constipation - chronic - continue home meds of Senna, Miralax, Milk of Magnesia prn, and Colace prn 5) osteoporosis - continue home med of Fosamax 6) FEN - Fluids: encourage po - Electrolytes: wnl, continue to monitor - Nutrition: low sodium diet 7) Prophylaxis - DVT ppx with Heparin 5,000U SQ TID - GI ppx with home med of Protonix - deconditioning ppx with PT Visit type - Emergency Visit Emergency Visit: Yes ED Registration Date: 05/30/17 Care time: The patient presented to the Emergency Department on the above date and was hospitalized for further evaluation of their emergent condition. - New Patient This patient is new to me today: No - Critical Care Critical Care patient: No
--- NOTE | 2017-06-03 11:10 | EKG ---
Test Reason : Blood Pressure : / mmHG Vent. Rate : 070 BPM Atrial Rate : 070 BPM P-R Int : 130 ms QRS Dur : 138 ms QT Int : 432 ms P-R-T Axes : -06 -57 091 degrees QTc Int : 466 ms SINUS RHYTHM WITH PREMATURE ATRIAL COMPLEXES LEFT AXIS DEVIATION LEFT BUNDLE BRANCH BLOCK ABNORMAL ECG WHEN COMPARED WITH ECG OF 14-MAY-2017 23:10, PREMATURE ATRIAL COMPLEXES ARE NOW PRESENT Confirmed by JANUARY NEWMAN MD ([id number]) on 06/03/2017 11:10:14 AM Referred By: Confirmed By:JANUARY NEWMAN MD
[2017-06-03 14:09] VITALS: BP 114/71; PULSE 61; TEMP 98
--- NOTE | 2017-06-03 14:31 | PN ---
Progress Note, Physician History of Present Illness: stable no gross changes pain main issue - Current Medication List Current Medications: Active Medications Acetaminophen (Tylenol -) 650 mg PO Q4H PRN PRN Reason: FEVER OR PAIN Last Admin: 06/03/17 09:42 Dose: 650 mg Carbidopa/Levodopa (Sinemet *Cr* 50/200 -) 1 combo PO TID@0700,1200,1700 [facility] Last Admin: 06/03/17 12:00 Dose: 1 combo Docusate Sodium (Colace -) 200 mg PO HS PRN PRN Reason: CONSTIPATION Ferrous Sulfate (Feosol -) 325 mg PO BID@0800,1730 [facility] Last Admin: 06/03/17 09:09 Dose: 325 mg Gabapentin (Neurontin -) 300 mg PO TID [facility] Last Admin: 06/03/17 06:47 Dose: 300 mg Heparin Sodium (Porcine) (Heparin -) 5,000 unit SQ TID [facility] Last Admin: 06/03/17 06:47 Dose: 5,000 unit Lidocaine (Lidoderm Patch -) 1 patch TP DAILY [facility] Last Admin: 06/03/17 09:42 Dose: 1 patch Magnesium Hydroxide (Milk Of Magnesia -) 30 ml PO Q8H PRN PRN Reason: CONSTIPATION Metoprolol Tartrate (Lopressor -) 50 mg PO TID [facility] Last Admin: 06/03/17 06:47 Dose: 50 mg Miscellaneous (Lidoderm Patch Removal) 1 each MC DAILY@2200 [facility] Last Admin: 06/02/17 21:56 Dose: 1 each Multivitamins/Minerals/Vitamin C (Tab-A-Vit -) 1 tab PO DAILY [facility] Last Admin: 06/03/17 09:42 Dose: 1 tab Oxycodone HCl (Roxicodone -) 5 mg PO Q4H PRN PRN Reason: PAIN Last Admin: 06/03/17 09:41 Dose: 5 mg Pantoprazole Sodium (Protonix -) 40 mg PO BID [facility] Last Admin: 06/03/17 09:42 Dose: 40 mg Polyethylene Glycol (Miralax (For Daily Use) -) 17 gm PO DAILY [facility] Last Admin: 06/03/17 09:42 Dose: 17 grams Pramipexole Dihydrochloride (Mirapex -) 0.5 mg PO HS [facility] Last Admin: 06/02/17 21:55 Dose: 0.5 mg Pramipexole Dihydrochloride (Mirapex -) 0.5 mg PO 0700,1200,1700 [facility] Last Admin: 06/03/17 12:00 Dose: 0.5 mg Senna (Senna -) 2 tab PO DAILY [facility] Last Admin: 06/03/17 09:42 Dose: 2 tab Sodium Phosphate (Fleet Adult Rectal Enema -) 133 ml RC Q7D PRN PRN Reason: CONSTIPATION - Objective Vital Signs: Vital Signs Temperature 98 F 06/03/17 14:05 Pulse Rate 61 06/03/17 14:05 Respiratory Rate 16 06/03/17 14:05 Blood Pressure 114/71 06/03/17 14:05 O2 Sat by Pulse Oximetry (%) 96 06/01/17 22:00 Constitutional: Yes: No Distress, Calm Cardiovascular: Yes: Regular Rate and Rhythm Respiratory: Yes: Regular, CTA Bilaterally Gastrointestinal: Yes: Normal Bowel Sounds, Soft Musculoskeletal: Yes: Back Pain, Other Extremities: Yes: Other Neurological: Yes: Alert, Oriented Psychiatric: Yes: Alert, Oriented Labs: CBC, BMP 06/03/17 06:10 06/02/17 06:10 Assessment/Plan Problem List - Problems (1) S/P laminectomy Code(s): Z98.890 - OTHER SPECIFIED POSTPROCEDURAL STATES (2) HTN (hypertension) Code(s): I10 - ESSENTIAL (PRIMARY) HYPERTENSION Qualifiers: Hypertension type: essential hypertension Qualified Code(s): I10 - Essential (primary) hypertension; I10 - Essential (primary) hypertension; I10 - Essential (primary) hypertension (3) Hyperlipidemia Code(s): E78.5 - HYPERLIPIDEMIA, UNSPECIFIED Qualifiers: Hyperlipidemia type: unspecified Qualified Code(s): E78.5 - Hyperlipidemia, unspecified; E78.5 - Hyperlipidemia, unspecified; E78.5 - Hyperlipidemia, unspecified (4) Osteoarthritis Code(s): M19.90 - UNSPECIFIED OSTEOARTHRITIS, UNSPECIFIED SITE Qualifiers: Osteoarthritis location: multiple joints Osteoarthritis type: primary Qualified Code(s): M15.0 - Primary generalized (osteo)arthritis; M15.0 - Primary generalized (osteo)arthritis (5) Dizziness Code(s): R42 - DIZZINESS AND GIDDINESS (6) Afib Code(s): I48.91 - UNSPECIFIED ATRIAL FIBRILLATION (7) Anxiety and depression Code(s): F41.8 - OTHER SPECIFIED ANXIETY DISORDERS (8) Back pain Code(s): M54.9 - DORSALGIA, UNSPECIFIED Qualifiers: (9) Enlarged prostate Code(s): N40.0 - BENIGN PROSTATIC HYPERPLASIA WITHOUT LOWER URINRY TRACT SYMP (10) Thoracic or lumbosacral neuritis or radiculitis Code(s): M54.14 - RADICULOPATHY, THORACIC REGION M54.17 - RADICULOPATHY, LUMBOSACRAL REGION (11) Weakness Code(s): R53.1 - WEAKNESS (12) Inflammatory bowel disease Code(s): K52.9 - NONINFECTIVE GASTROENTERITIS AND COLITIS, UNSPECIFIED plan results noted esr and crp noted will await neurosurgery to see the patient no abx at thsi point rest as per primary team
--- NOTE | 2017-06-03 14:42 | PN ---
Progress Note (short form) - Note Progress Note: Patient well-known to me with history of complex revision lumbar scoliosis surgery on April 08, 2017. Patient returned from rehabilitation after a fall. Overall patient is making good improvement. He is awake and oriented times three and able to carry out a detailed conversation concerning his course of care and current medical situation. Patient continues to have left lower extremity radicular pain now primarily in the L5 distribution. Wound examinedr carefully and is healing well. Although there is a small CSF collection on physical exam and noted on MRI, no further acute treatment is required at this time. Patient may benefit from CSF diversion with RUG CLEANING SUPERVISOR shunt to be considered at a later date. Patient would benefit from Percocet for pain management. No Neurosurgical contraindication to discharge.
--- NOTE | 2017-06-03 14:48 | DS ---
Physical Exam: SUBJECTIVE: Patient seen and examined OBJECTIVE: Vital Signs Period Temp Pulse Resp BP Sys/Suazo Pulse Ox Last 24 Hr 97.9 F-98.5 F 56-61 16-20 103-122/69-76 PHYSICAL EXAM GENERAL: The patient is awake, alert, and fully oriented, in no acute distress. HEAD: Normal with no signs of trauma. EYES: Extraocular movements intact, sclera anicteric, conjunctiva clear. No ptosis. ENT: Moist mucous membranes. NECK: Trachea midline, supple. LUNGS: Breath sounds equal, clear to auscultation bilaterally, no wheezes, no crackles, no accessory muscle use. HEART: Regular rate and rhythm, S1, S2 without murmur, rub or gallop. EXTREMITIES: Warm, well-perfused, no edema. Pain better controlled. Sensation intact farrukh. PSYCH: Normal mood, normal affect. SKIN: Warm, dry, normal turgor, no rashes or lesions noted LABS Laboratory Results - last 24 hr 06/03/17 06/03/17 06/03/17 06:10 06:10 06:10 WBC 8.1 RBC 3.85 L Hgb 12.6 Hct 38.0 MCV 98.6 H MCH 32.7 MCHC 33.1 RDW 16.8 H Plt Count 254 MPV 8.3 Neutrophils % 46.9 D Lymphocytes % 38.1 D Monocytes % 6.4 Eosinophils % 7.6 H Basophils % 1.0 ESR 20 C-Reactive Protein 0.7 H D HOSPITAL COURSE: Date of Admission:05/30/17 Date of Discharge: 06/03/17 72M with PMH of chronic back pain, paroxysmal afib (not on anticoagulation), parkinson's, htn, hld, presents c/o Left LE weakness and pain s/p laminectomy and fusion back surgery admitted for fluid collection at laminectomy site. [facility] and had chief complaints of acute on chronic bilateral lower extremity weakness and pain. Patient had a lumbar spine MRI which showed large dorsal epidural fluid collection and posterior paraspinal fluid collection spanning the length of the surgical hardware decreased in size from prior imaging. Seen by neurosurgery and patient has a small CSF collection who did not think patient needed any intervention at this time and thought he may need a SENIOR JAVA SOFTWARE DEVELOPER shunt in the future. no neurosurgical contraindication for discharge. Seen by physical therapy and was able to ambulate >60 feet for the past 2 days. stable for discharge. Minutes to complete discharge: 35 Discharge Summary Reason For Visit: WEAKNESS Current Active Problems Anemia (Acute) Atypical chest pain (Acute) BPH (benign prostatic hyperplasia) (Acute) Chronic obstructive pulmonary disease (COPD) (Acute) Diverticulosis (Acute) Inflammatory bowel disease (Acute) Parkinson disease (Acute) S/P laminectomy (Acute) Syncope (Acute) Systolic CHF (Acute) Carotid stenosis (Chronic) Depression (Chronic) HTN (hypertension) (Chronic) Hyperlipidemia (Chronic) LBBB (left bundle branch block) (Chronic) Osteoarthritis (Chronic) Polysubstance (excluding opioids) dependence (Chronic) SVT (supraventricular tachycardia) (Chronic) Condition: Stable - Instructions Diet, Activity, Other Instructions: You were treated for pain and parasthesia in your feet. You have a collection of fluid at the site where you had a laminectomy procedure. At this time there is nothing to do about the fluid collection, besides to continue to monitor it on an outpatient basis. Please continue your medications as directed. Please follow a low sodium diet. Resume physical activity as tolerated. Please make an appointment to follow-up with your Primary Care Doctor (Dr. Gibbons) within 1 week of going home from the hospital. Please return to the hospital if you experience persistent or worsening pain in your feet, or for any medical emergency. Referrals: Mynor Gibbons MD [Primary Care Provider] - 1 Week Nilesh Queen MD, FAANS [Staff Physician] - 2 Weeks Disposition: HOME - Home Medications Comprehensive Discharge Medication List: Ambulatory Orders Pantoprazole Sodium [Protonix -] 40 mg PO BID #60 tablet.ec 07/26/15 Alendronate Na [Fosamax (Weekly)] 70 mg PO WEEKLY 08/22/16 Magnesium Hydrox 2400MG/30Ml [Milk of Magnesia -] 30 ml PO Q8H PRN 01/11/17 Sennosides [Senna -] 2 tab PO DAILY #30 tablet 01/16/17 Sodium Phosphate/Na Biphos [Fleet Adult Rectal Enema -] 133 ml RC WEEKLY PRN #4 enema 01/16/17 Carbidopa/Levodopa *Cr* 50/200 [Sinemet *Cr* 50/200 -] 1 combo PO 0700,1200, 1700 #30 tab 04/29/17 Ferrous Sulfate [Feosol] 325 mg PO BID@0800,1730 #60 tab 04/29/17 Gabapentin [Neurontin -] 300 mg PO TID #120 tab 04/29/17 Lidocaine 5% Patch [Lidoderm -] 1 patch TP DAILY patch 04/29/17 Metoprolol Tartrate [Lopressor -] 50 mg PO TID tablet 04/29/17 Multivitamins [Multivit ([facility] Formulary)] 1 tab PO DAILY tab 04/29/17 Polyethylene Glycol 3350 [Miralax 119 gm Btl -] 17 gm PO DAILY #1 bottle Pramipexole Dihydrochloride [Mirapex -] 0.5 mg PO 0700,1200,1700 #120 tablet Pramipexole Dihydrochloride [Mirapex -] 0.5 mg PO HS #31 tablet 04/29/17 Acetaminophen [Tylenol] 325 mg PO QID PRN 05/14/17 Docusate Sodium [Colace -] 200 mg PO HS PRN 05/14/17 This patient is new to me today: Yes Date on this admission: 06/03/17 Emergency Visit: Yes ED Registration Date: 05/30/17 Care time: The patient presented to the Emergency Department on the above date and was hospitalized for further evaluation of their emergent condition. Critical Care patient: No - Discharge Referral Referred to [facility] Med [facility].C[facility] Yes Physician Referral: Wili Solares MD ([facility])
--- NOTE | 2017-06-03 14:49 | PN ---
Teaching Attending Note Name of Resident: Jett Cuevas ATTENDING PHYSICIAN STATEMENT I saw and evaluated the patient. I reviewed the resident's note and discussed the case with the resident. I agree with the resident's findings and plan as documented. SUBJECTIVE: Patient is feeling well, wants to go home, no new changes. OBJECTIVE: Vital Signs Temperature 98 F 06/03/17 14:05 Pulse Rate 61 06/03/17 14:05 Respiratory Rate 16 06/03/17 14:05 Blood Pressure 114/71 06/03/17 14:05 O2 Sat by Pulse Oximetry (%) 96 06/01/17 22:00 CBCD WBC 8.1 K/mm3 (4.0-10.0) 06/03/17 06:10 RBC 3.85 M/mm3 (4.00-5.60) L 06/03/17 06:10 Hgb 12.6 GM/dL (11.7-16.9) 06/03/17 06:10 Hct 38.0 % (35.4-49) 06/03/17 06:10 MCV 98.6 fl (80-96) H 06/03/17 06:10 MCHC 33.1 g/dl (32.0-35.9) 06/03/17 06:10 RDW 16.8 % (11.9-15.9) H 06/03/17 06:10 Plt Count 254 K/MM3 (134-434) 06/03/17 06:10 MPV 8.3 fl (7.5-11.1) 06/03/17 06:10 CMP Sodium 138 mmol/L (136-145) 06/02/17 06:10 Potassium 3.9 mmol/L (3.5-5.1) 06/02/17 06:10 Chloride 106 mmol/L (98-107) 06/02/17 06:10 Carbon Dioxide 22 mmol/L (21-32) 06/02/17 06:10 Anion Gap 10 (8-16) 06/02/17 06:10 BUN 17 mg/dL (7-18) 06/02/17 06:10 Creatinine 1.0 mg/dL (0.7-1.3) 06/02/17 06:10 Creat Clearance w eGFR > 60 (>60) 06/02/17 06:10 Random Glucose 92 mg/dL (74-106) 06/02/17 06:10 Calcium 8.0 mg/dL (8.5-10.1) L 06/02/17 06:10 Total Bilirubin 0.4 mg/dL (0.2-1.0) 06/02/17 06:10 AST 20 U/L (15-37) D 06/02/17 06:10 ALT 42 U/L (12-78) D 06/02/17 06:10 Alkaline Phosphatase 113 U/L (45-117) D 06/02/17 06:10 Total Protein 5.8 g/dl (6.4-8.2) L 06/02/17 06:10 Albumin 3.2 g/dl (3.4-5.0) L 06/02/17 06:10 Current Medications Generic Name Dose Route Start Last Admin Trade Name Freq PRN Reason Stop Dose Admin Acetaminophen 650 mg 05/31/17 00:52 06/03/17 09:42 Tylenol - PO 650 mg Q4H PRN Administration FEVER OR PAIN Carbidopa/Levodopa 1 combo 05/31/17 07:00 06/03/17 12:00 Sinemet *Cr* 50/200 - PO 1 combo TID@0700,1200,1700 SIENA Administration Docusate Sodium 200 mg 05/30/17 17:32 Colace - PO HS PRN CONSTIPATION Ferrous Sulfate 325 mg 05/31/17 08:00 06/03/17 09:09 Feosol - PO 325 mg BID@0800,1730 SIENA Administration Gabapentin 300 mg 05/30/17 22:00 06/03/17 14:55 Neurontin - PO Not Given TID SIENA Heparin Sodium (Porcine) 5,000 unit 05/30/17 18:00 06/03/17 14:55 Heparin - SQ Not Given TID SIENA Lidocaine 1 patch 05/31/17 10:00 06/03/17 09:42 Lidoderm Patch - TP 1 patch DAILY SIENA Administration Magnesium Hydroxide 30 ml 05/30/17 17:32 Milk Of Magnesia - PO Q8H PRN CONSTIPATION Metoprolol Tartrate 50 mg 05/30/17 22:00 06/03/17 14:55 Lopressor - PO Not Given TID SIENA Miscellaneous 1 each 05/30/17 22:00 06/02/17 21:56 Lidoderm Patch Removal MC 1 each DAILY@2200 SIENA Administration Multivitamins/Minerals/Vitamin C 1 tab 05/31/17 10:00 06/03/17 09:42 Tab-A-Vit - PO 1 tab DAILY SIENA Administration Oxycodone HCl 5 mg 06/02/17 09:19 06/03/17 09:41 Roxicodone - PO 5 mg Q4H PRN Administration PAIN Pantoprazole Sodium 40 mg 05/30/17 22:00 06/03/17 09:42 Protonix - PO 40 mg BID SIENA Administration Polyethylene Glycol 17 gm 05/31/17 10:00 06/03/17 09:42 Miralax (For Daily Use) - PO 17 grams DAILY SIENA Administration Pramipexole Dihydrochloride 0.5 mg 05/30/17 22:00 06/02/17 21:55 Mirapex - PO 0.5 mg HS SIENA Administration Pramipexole Dihydrochloride 0.5 mg 05/31/17 07:00 06/03/17 12:00 Mirapex - PO 0.5 mg 0700,1200,1700 SIENA Administration Senna 2 tab 05/31/17 10:00 06/03/17 09:42 Senna - PO 2 tab DAILY SIENA Administration Sodium Phosphate 133 ml 05/30/17 17:32 Fleet Adult Rectal Enema - RC Q7D PRN CONSTIPATION Home Medications Medication Instructions Recorded Pantoprazole Sodium [Protonix -] 40 mg PO BID #60 tablet.ec 07/26/15 Alendronate Na [Fosamax (Weekly)] 70 mg PO WEEKLY 08/22/16 Magnesium Hydrox 2400MG/30Ml [Milk 30 ml PO Q8H PRN 01/11/17 of Magnesia -] Sennosides [Senna -] 2 tab PO DAILY #30 tablet 01/16/17 Sodium Phosphate/Na Biphos [Fleet 133 ml RC WEEKLY PRN #4 enema 01/16/17 Adult Rectal Enema -] Carbidopa/Levodopa *Cr* 50/200 1 combo PO 0700,1200,1700 #30 tab 04/29/17 [Sinemet *Cr* 50/200 -] Ferrous Sulfate [Feosol] 325 mg PO BID@0800,1730 #60 tab 04/29/17 Gabapentin [Neurontin -] 300 mg PO TID #120 tab 04/29/17 Lidocaine 5% Patch [Lidoderm -] 1 patch TP DAILY patch 04/29/17 Metoprolol Tartrate [Lopressor -] 50 mg PO TID tablet 04/29/17 Multivitamins [Multivit ([facility] 1 tab PO DAILY tab 04/29/17 Formulary)] Polyethylene Glycol 3350 [Miralax 17 gm PO DAILY #1 bottle 04/29/17 119 gm Btl -] Pramipexole Dihydrochloride 0.5 mg PO 0700,1200,1700 #120 04/29/17 [Mirapex -] tablet Pramipexole Dihydrochloride 0.5 mg PO HS #31 tablet 04/29/17 [Mirapex -] Acetaminophen [Tylenol] 325 mg PO QID PRN 05/14/17 Docusate Sodium [Colace -] 200 mg PO HS PRN 05/14/17 ASSESSMENT AND PLAn: 72yo M with PMH of chronic back pain, paroxysmal afib (not on anticoagulation), parkinson's, htn, hld, presents c/o Left LE weakness and pain s/p laminectomy and fusion back surgery admitted to med-surg inpatient for fluid collection at laminectomy site. # Left LE pain/weakness with fluid collection 5.5cm Discussed with Neurosurgeon , nothing to be done at this time, patient can be discharged home . As per Dr. Queen; neurosurgeon ;Patient is doing well, and improving. Patient continues to have left lower extremity radicular pain now primarily in the L5 distribution. Wound is clean and healing well. Although there is a small CSF collection on physical exam and noted on MRI, no further acute treatment is required at this time. Patient may benefit from CSF diversion with WAREHOUSE DELIVERY DRIVER shunt to be considered at a later date. asnd was recommended Percocet for pain management. No Neurosurgical contraindication to discharge at this time. #Parkinson's stable continue home meds of Sinemet and Mirapex # htn continue home med of Lopressor # constipation chronic, continue home meds of Senna, Miralax, Milk of Magnesia prn, and Colace prn # osteoporosis , continue home med of Fosamax patient can be discharge home today. Patient does not want to go to rehab.
--- NOTE | 2017-06-03 14:49 | DS ---
Physical Exam: SUBJECTIVE: Patient seen and examined OBJECTIVE: Vital Signs Period Temp Pulse Resp BP Sys/Suazo Pulse Ox Last 24 Hr 97.9 F-98.5 F 56-61 16-20 103-122/69-76 PHYSICAL EXAM GENERAL: The patient is awake, alert, and fully oriented, in no acute distress. HEAD: Normal with no signs of trauma. EYES: PERRL, extraocular movements intact, sclera anicteric, conjunctiva clear. ENT: Ears normal, nares patent, oropharynx clear without exudates, moist mucous membranes. NECK: Trachea midline, full range of motion, supple. LUNGS: Breath sounds equal, clear to auscultation bilaterally, no wheezes, no crackles, no accessory muscle use. HEART: Regular rate and rhythm, S1, S2 without murmur, rub or gallop. ABDOMEN: Soft, nontender, nondistended, normoactive bowel sounds, no guarding, no rebound, no hepatosplenomegaly, no masses. EXTREMITIES: 2+ pulses, warm, well-perfused, no edema. NEUROLOGICAL: Cranial nerves II through XII grossly intact. Normal speech, gait not observed. PSYCH: Normal mood, normal affect. SKIN: Warm, dry, normal turgor, no rashes or lesions noted. LABS Laboratory Results - last 24 hr 06/03/17 06/03/17 06/03/17 06:10 06:10 06:10 WBC 8.1 RBC 3.85 L Hgb 12.6 Hct 38.0 MCV 98.6 H MCH 32.7 MCHC 33.1 RDW 16.8 H Plt Count 254 MPV 8.3 Neutrophils % 46.9 D Lymphocytes % 38.1 D Monocytes % 6.4 Eosinophils % 7.6 H Basophils % 1.0 ESR 20 C-Reactive Protein 0.7 H D HOSPITAL COURSE: Date of Admission:05/30/17 Date of Discharge: 06/03/17 Discharge Summary Reason For Visit: WEAKNESS Current Active Problems Anemia (Acute) Atypical chest pain (Acute) BPH (benign prostatic hyperplasia) (Acute) Chronic obstructive pulmonary disease (COPD) (Acute) Diverticulosis (Acute) Inflammatory bowel disease (Acute) Parkinson disease (Acute) S/P laminectomy (Acute) Syncope (Acute) Systolic CHF (Acute) Carotid stenosis (Chronic) Depression (Chronic) HTN (hypertension) (Chronic) Hyperlipidemia (Chronic) LBBB (left bundle branch block) (Chronic) Osteoarthritis (Chronic) Polysubstance (excluding opioids) dependence (Chronic) SVT (supraventricular tachycardia) (Chronic) - Instructions Diet, Activity, Other Instructions: You were treated for pain and parasthesia in your feet. You have a collection of fluid at the site where you had a laminectomy procedure. At this time there is nothing to do about the fluid collection, besides to continue to monitor it on an outpatient basis. Please continue your medications as directed. Please follow a low sodium diet. Resume physical activity as tolerated. Please make an appointment to follow-up with your Primary Care Doctor (Dr. Gibbons) within 1 week of going home from the hospital. Please return to the hospital if you experience persistent or worsening pain in your feet, or for any medical emergency. Referrals: Mynor Gibbons MD [Primary Care Provider] - 1 Week Disposition: HOME - Home Medications Comprehensive Discharge Medication List: Ambulatory Orders Pantoprazole Sodium [Protonix -] 40 mg PO BID #60 tablet.ec 07/26/15 Alendronate Na [Fosamax (Weekly)] 70 mg PO WEEKLY 08/22/16 Magnesium Hydrox 2400MG/30Ml [Milk of Magnesia -] 30 ml PO Q8H PRN 01/11/17 Sennosides [Senna -] 2 tab PO DAILY #30 tablet 01/16/17 Sodium Phosphate/Na Biphos [Fleet Adult Rectal Enema -] 133 ml RC WEEKLY PRN #4 enema 01/16/17 Carbidopa/Levodopa *Cr* 50/200 [Sinemet *Cr* 50/200 -] 1 combo PO 0700,1200, 1700 #30 tab 04/29/17 Ferrous Sulfate [Feosol] 325 mg PO BID@0800,1730 #60 tab 04/29/17 Gabapentin [Neurontin -] 300 mg PO TID #120 tab 04/29/17 Lidocaine 5% Patch [Lidoderm -] 1 patch TP DAILY patch 04/29/17 Metoprolol Tartrate [Lopressor -] 50 mg PO TID tablet 04/29/17 Multivitamins [Multivit ([facility] Formulary)] 1 tab PO DAILY tab 04/29/17 Polyethylene Glycol 3350 [Miralax 119 gm Btl -] 17 gm PO DAILY #1 bottle Pramipexole Dihydrochloride [Mirapex -] 0.5 mg PO 0700,1200,1700 #120 tablet Pramipexole Dihydrochloride [Mirapex -] 0.5 mg PO HS #31 tablet 04/29/17 Acetaminophen [Tylenol] 325 mg PO QID PRN 05/14/17 Docusate Sodium [Colace -] 200 mg PO HS PRN 05/14/17
== END 2017-06-03 17:06 | disposition home or self-care (01) | DRG 92 ==
LOC: JER 11:21 → JERBED 14:42 → J6S 17:57
PROVIDERS: ADMIT Internal Medicine; ATTEND Internal Medicine
DX: G97.82 Other postprocedural complications and disorders of nervous system (principal); G96.0 Cerebrospinal fluid leak; G91.2 (Idiopathic) normal pressure hydrocephalus; E78.5 Hyperlipidemia, unspecified; I48.0 Paroxysmal atrial fibrillation; J44.9 Chronic obstructive pulmonary disease, unspecified; K58.8 Other irritable bowel syndrome; K64.8 Other hemorrhoids; N40.0 Benign prostatic hyperplasia without lower urinary tract symptoms; F41.8 Other specified anxiety disorders; I12.9 Hypertensive chronic kidney disease with stage 1 through stage 4 chronic kidney disease, or unspecified chronic kidney disease; N18.3 Chronic kidney disease, stage 3 (moderate); I44.7 Left bundle-branch block, unspecified; E53.8 Deficiency of other specified B group vitamins; K44.9 Diaphragmatic hernia without obstruction or gangrene; K59.09 Other constipation; M19.90 Unspecified osteoarthritis, unspecified site; M54.5 Low back pain; G20 Parkinson's disease; M81.8 Other osteoporosis without current pathological fracture; M54.17 Radiculopathy, lumbosacral region; Y83.8 Other surgical procedures as the cause of abnormal reaction of the patient, or of later complication, without mention of misadventure at the time of the procedure; Y82.8 Other medical devices associated with adverse incidents; Z98.890 Other specified postprocedural states; Z87.891 Personal history of nicotine dependence; Z87.442 Personal history of urinary calculi
CPT/HCPCS: 36415; 72148-TC; 80053; 81003; 85025; 85651; 86140; 93005; 93010; 97116-GP; 97161-GP; 99281-25; J1644

== ENCOUNTER 2017-06-16 00:04 | Inpatient (IN) | payer OTHER, BC ==
[2017-06-16] MEDS ORDERED: ACETAMINOPHEN 325 MG TABLET (FP) PO ONE (00:59)
--- NOTE | 2017-06-16 01:00 | PDOC ---
History of Present Illness - General History Source: Patient Exam Limitations: No Limitations - History of Present Illness Initial Comments: 06/16/17 03:18 Patient is a 72 year old male with a significant past medical history of chronic back pain, paroxysmal afib (not on anticoagulation), LLE weakness and pain s/p laminectomy and fusion back surgery, Anemia, BPH (benign prostatic hyperplasia) , Chronic obstructive pulmonary disease (COPD), Diverticulosis, Inflammatory bowel disease, Parkinson disease, S/P laminectomy, Syncope, Systolic CHF, Depression, HTN (hypertension) , Hyperlipidemia, LBBB (left bundle branch block), Osteoarthritis, Polysubstance (excluding opioids) dependence, SVT (supraventricular tachycardia ) who presents to the ED s/p fall that occurred 3 hours prior to visit. Patient reports walking with walker today when he felt his left hip give out causing him to collapse. Patient denies hitting head or losing consciousness after falling. He reports falling on his legs, right shoulder and back. He reports experiencing intermittent episodes of nausea secondary to fall. Patient states checking himself out of [place] [facility] facility due to finance last week following surgery. He reports multiple episodes of falling has occurred since surgery was completed. Denies Allergies: Pregabalin, Pravastatin Sodium, Lactose Allergy, Morphine Allergy, Peanut Allergy, Penicillins Allergy. Social history: Lives at home. Former smoker (Quit 25 years ago). Surgical history: Laminectomy and fusion back surgery, Hernia repair, Hemorrhoidectomy, Carotid stenosis surgery PMD: Dr Queen <Amador Contreras - Last Filed: 06/16/17 03:40> <Wil Moscoso - Last Filed: 06/16/17 04:51> - General Chief Complaint: Injury Stated Complaint: FALL Time Seen by Provider: 06/16/17 00:40 Past History <Amador Contreras - Last Filed: 06/16/17 03:40> - Past Medical History Anemia: No Asthma: No Cancer: No Cardiac Disorders: Yes (HTN, HLD, Paroxysmal AFib) CVA: (NPH) COPD: Yes CHF: No DVT: No Dementia: No Diabetes: No GI Disorders: Yes (Diverticulitis, IBS, hemorrhoids) Disorders: Yes (Englarged Prostate) HTN: Yes Hypercholesterolemia: Yes Kidney Stones: Yes (s/p Right UVJ Stent placement) Liver Disease: No Psychiatric Problems: Yes (Depression/Anxiety) Seizures: No Thyroid Disease: No - Surgical History Abdominal Surgery: Yes (Hernia Repair) Appendectomy: No Cardiac Surgery: No Cholecystectomy: No GI Surgery: Yes (HEMORRHOIDS/ANAL ULCER, RIGHT UVJ STENT) Lung Surgery: No Neurologic Surgery: No Orthopedic Surgery: Yes (Lumbar Back Surgery x2) - Immunization History Immunization Up to Date: Yes - Suicide/Smoking/Psychosocial Hx Smoking Status: No Smoking History: Unknown if ever smoked Years of Tobacco Use: 20 Have you smoked in the past 12 months: No Number of Cigarettes Smoked Daily: 0 If you are a former smoker, when did you quit?: over 25 years ago Information on smoking cessation initiated: No 'Breaking Loose' booklet given: 09/08/13 Hx Alcohol Use: No Drug/Substance Use Hx: No Substance Use Type: None Hx Substance Use Treatment: No <Wil Moscoso - Last Filed: 06/16/17 04:51> - Past Medical History Allergies/Adverse Reactions: Allergies Allergy/AdvReac Type Severity Reaction Status Date / Time pregabalin [From Lyrica] Allergy Mild Verified 06/15/17 10:03 pravastatin sodium Allergy Unknown Verified 06/15/17 10:03 [From Pravachol] lactose Allergy Nausea Verified 06/15/17 10:03 morphine Allergy Verified 06/15/17 10:03 peanut Allergy Verified 06/15/17 10:03 Penicillins Allergy Verified 06/15/17 10:03 Home Medications: Ambulatory Orders Multivitamins [Multivit ([facility] Formulary)] 1 tab PO DAILY tab 04/29/17 Acetaminophen [Tylenol] 325 mg PO QID PRN 05/14/17 Alendronate Na [Fosamax (Weekly)] 70 mg PO WEEKLY #4 tab 06/05/17 Carbidopa/Levodopa *Cr* 50/200 [Sinemet *Cr* 50/200 -] 1 combo PO 0700,1200, 1700 #30 tab 06/05/17 Docusate Sodium [Colace -] 200 mg PO HS PRN #30 cap 06/05/17 Ferrous Sulfate [Feosol] 325 mg PO BID@0800,1730 #60 tab 06/05/17 Gabapentin [Neurontin -] 300 mg PO TID #120 tab 06/05/17 Lidocaine 5% Patch [Lidoderm -] 1 patch TP DAILY #3 patch 06/05/17 Lidocaine Patch Removal [Lidoderm Patch Removal] 1 each MC DAILY@2200 each 09/20 Magnesium Hydrox 2400MG/30Ml [Milk of Magnesia -] 30 ml PO Q8H PRN #90 ml Metoprolol Tartrate [Lopressor -] 50 mg PO TID #90 tablet 06/05/17 Oxycodone HCl/Acetaminophen [Percocet 5-325 mg Tablet] 1 combo PO Q6H PRN #12 tablet MDD 4 tabs 06/05/17 Pantoprazole Sodium [Protonix -] 40 mg PO BID #60 tablet.ec 06/05/17 Polyethylene Glycol 3350 [Miralax 119 gm Btl -] 17 gm PO DAILY #1 bottle Pramipexole Dihydrochloride [Mirapex -] 0.5 mg PO 0700,1200,1700 #120 tablet 09/20 Pramipexole Dihydrochloride [Mirapex -] 0.5 mg PO HS #31 tablet 06/05/17 Sennosides [Senna -] 2 tab PO DAILY #30 tablet 06/05/17 Sodium Phosphate/Na Biphos [Fleet Adult Rectal Enema -] 133 ml RC WEEKLY PRN #4 enema 06/05/17 Oxycodone HCl/Acetaminophen [Percocet 5-325 mg Tablet] 2 tab PO BID PRN #28 tablet MDD 4 tabs 06/15/17 Review of Systems - Review of Systems Constitutional: No: Chills, Fever Respiratory: No: Cough, Shortness of Breath Cardiac (ROS): No: Chest Pain, Syncope ABD/GI: Yes: Nausea. No: Diarrhea, Vomiting Musculoskeletal: Yes: Joint Pain, Muscle Weakness Neurological: No: Headache All Other Systems: Reviewed and Negative <Wil Moscoso - Last Filed: 06/16/17 04:51> *Physical Exam - Vital Signs Last Vital Signs Temp Pulse Resp BP Pulse Ox 98.1 F 105 H 19 150/93 96 06/16/17 00:52 06/16/17 00:52 06/16/17 00:52 06/16/17 00:52 06/16/17 00:52 - Physical Exam Comments: 06/16/17 03:18 GENERAL: Patient is alert and in no acute distress. Speech is clear and appropriate. HEAD: Atraumatic and nontender. HEENT: Pupils are equal round and reactive to light, extraocular movements are intact. The tympanic membranes are clear, no hemotympanum. No facial deformity/ tenderness, no septal hematoma. The oropharynx is clear. NECK: The trachea is midline, there is no stridor. There is no midline cervical spine tenderness, full range of motion of neck. CHEST: Nontender, no ecchymosis or abrasions. HEART: S1-S2, regular rate and rhythm. No murmurs. LUNGS: Clear to auscultation bilaterally. Symmetric chest rise. ABDOMEN: Soft/nontender/nondistended. Bowel sounds are normal. There is no abdominal or flank ecchymosis. BACK/PELVIS: +Minor lateral left hip discomfort. +Left hip tender to palpation. +5/5 Left hip strength. +Left hip Full ROM. +3./5 left knee extension. +5/5 knee flexion. Weakness baseline since surgery. No right hip tenderness. There is no midline spine tenderness or step-off. EXTREMITIES: There is no extremity deformity or joint swelling. No focal bony tenderness or deformity in the remaining joints or extremities. Throughout. 2+ distal pulses throughout. NEURO: Alert and oriented x3. Cranial nerves II through XII are intact. 5 out of 5 motor strength x4 extremities. [id number] is intact. No pronator drift. Gait is stable. SKIN: No abrasions/hematomas/lacerations. PSYCH: Affect is appropriate. <Amador Contreras - Last Filed: 06/16/17 03:40> - Vital Signs Last Vital Signs Temp Pulse Resp BP Pulse Ox 98.1 F 105 H 19 150/93 96 06/16/17 00:52 06/16/17 00:52 06/16/17 00:52 06/16/17 00:52 06/16/17 00:52 <Wil Moscoso - Last Filed: 06/16/17 04:51> Heart Score/ECG Review #1 ECG reviewed & interpreted by me at: 04:33 Compared to previous ECG there are: No significant change (c/w 06/03/17) 06/16/17 04:50 sinus at 92. QTC 479. unchanged intraventricular conduction delay, no acute st changes. <Wil Moscoso - Last Filed: 06/16/17 04:51> ED Treatment Course - LABORATORY CBC & Chemistry Diagram: 06/16/17 01:14 06/16/17 01:14 - ADDITIONAL ORDERS Additional order review: Laboratory Results 06/16/17 06/16/17 06/16/17 01:14 01:14 01:14 PT with INR 12.10 H INR 1.07 Sodium 144 Potassium 3.7 Chloride 110 H Carbon Dioxide 20 L Anion Gap 14 BUN 20 H D Creatinine 1.1 Creat Clearance w eGFR > 60 Random Glucose 104 D Calcium 9.1 Magnesium 1.9 Total Bilirubin 0.3 AST 17 ALT 34 Alkaline Phosphatase 92 Total Protein 6.6 Albumin 3.8 Blood Type O NEGATIVE Antibody Screen Negative 06/16/17 01:14 RBC 4.02 MCV 98.2 H MCHC 33.7 RDW 16.5 H MPV 8.6 Neutrophils % 83.4 H D Lymphocytes % 5.5 L D Monocytes % 8.4 Eosinophils % 1.9 Basophils % 0.8 - RADIOLOGY Radiograph Interpretation: 06/16/17 03:40 Chest Xray Impression: No acute pathology. Pelvic Xray Impression: No acute fracture or dislocation of the left hip. Head CT Impression: No acute abnormalities - Medications Given in the ED: ED Medications Discontinued Medications Generic Name Dose Route Start Last Admin Trade Name Freq PRN Reason Stop Dose Admin Acetaminophen 650 mg 06/16/17 00:59 06/16/17 01:21 Tylenol - PO 06/16/17 01:00 650 mg ONCE ONE Administration Ondansetron HCl 4 mg 06/16/17 02:03 06/16/17 02:17 Zofran Injection IVPUSH 06/16/17 02:04 4 mg ONCE ONE Administration <Amador Contreras - Last Filed: 06/16/17 03:40> - LABORATORY CBC & Chemistry Diagram: 06/16/17 01:14 06/16/17 01:14 - RADIOLOGY Radiology Studies Ordered: Category Date Time Status CHEST - PA [RAD] Stat Radiology 06/16/17 00:59 Ordered HIP & PELVIS-LEFT [RAD] Stat Radiology 06/16/17 00:59 Ordered <Wil Moscoso - Last Filed: 06/16/17 04:51> Medical Decision Making - Medical Decision Making 06/16/17 02:03 A portion of this note was documented by scribe services under my direction. I have reviewed the details of the note, within reason, and agree with the documentation with the following case summary and management plan written by me. 72-year-old male with multiple medical problems including recent laminectomy complicated by postoperative fluid collection and left leg numbness/weakness with recent admission and discharge to rehabilitation facility, where the patient signed out due to financial reasons and returned home 2 days ago. There was walking with walker, this evening states his left leg gave out and he fell to the ground. Landed on his right shoulder, but no persistent pain and retains full range of motion without motor or sensory deficit, complaining of his usual left leg numbness and weakness, feels uncomfortable at home given his inability to ambulate steadily. Vital signs as noted. Well-appearing, conversant and oriented Trauma exam as noted and within normal limits, notably right shoulder has no focal tenderness and full range of motion, the left hip is slightly tender but has normal range of motion, distal left leg weakness which patient states is unchanged. Neurovascularly intact. 72-year-old male with left leg weakness presents with yet another fall despite using his walker, no head injury but complaining of some nausea. Neurologically intact except for his known left leg weakness, some left hip tenderness so will rule out fracture. Labs Left hip/pelvis x-ray, chest x-ray, CT head given the nausea and the setting of persistent falls Difficult disposition, will likely need readmission given his inability to ambulate steadily at home and no assistance in place 06/16/17 03:38 labs wnl, imaging without acute pathology. Given his home situation without assistance and known difficulty ambulating resulting in frequent falls, will need PT re-evaluation and placement as indicated. There was some discussion as to whether patient would benefit from a drain, could have nsgy re-evaluation as well. 06/16/17 04:11 Accepted for inpt med/surg by Dr. Bejarano, signout given to Dr. Negron. <Wil Moscoso - Last Filed: 06/16/17 04:51> *DC/Admit/Observation/Transfer - Attestations Scribe Attestion: 06/16/17 03:18 Documentation prepared by Amador Contreras, acting as medical administrative assistant for Wil Moscoso MD, /DO. <Amador Contreras - Last Filed: 06/16/17 03:40> - Discharge Dispostion Admit: Yes <Wil Moscoso - Last Filed: 06/16/17 04:51> Diagnosis at time of Disposition: Frequent falls, Weakness of left lower extremity, Thoracic or lumbosacral neuritis or radiculitis - Discharge Dispostion Condition at time of disposition: Fair
[2017-06-16] MEDS ORDERED: ACETAMINOPHEN 325 MG TABLET (FP) ONE (01:03)
[2017-06-16 01:24] LABS: BASOPHIL 0.8 % (0-2.0); EOSINOPHIL 1.9 % (0-4.5); MCH 33.1 pg (25.7-33.7); MCHC 33.7 g/dl (32.0-35.9); MEAN CELL VOLUME 98.2 fl (80-96); MEAN PLT VOLUME 8.6 fl (7.5-11.1); NEUTROPHILS 83.4 % (42.8-82.8); PLATELET COUNT 252 K/MM3 (134-434); RDW 16.5 % (11.9-15.9); WHITE BLOOD COUNT 10.4 K/mm3 (4.0-10.0)
[2017-06-16 01:36] LABS: INR 1.07 (0.82-1.09); PROTHROMBIN TIME (PATIENT) 12.1 SEC (9.98-11.88)
[2017-06-16 01:47] LABS: ALBUMIN 3.8 g/dl (3.4-5.0); ALK PHOS 92 U/L (45-117); ANION GAP 14 (8-16); BILIRUBIN,TOTAL 0.3 mg/dL (0.2-1.0); CALCIUM 9.1 mg/dL (8.5-10.1); CO2 20 mmol/L (21-32); CREATININE 1.1 mg/dL (0.7-1.3); GLUCOSE,RANDOM 104 mg/dL (74-106); MAGNESIUM 1.9 mg/dL (1.8-2.4); SGOT/AST 17 U/L (15-37); SGPT/ALT 34 U/L (12-78); TOT PROT 6.6 g/dl (6.4-8.2)
[2017-06-16] MEDS ORDERED: ONDANSETRON 4 MG/2 ML VIAL IVPUSH ONE (02:03)
--- NOTE | 2017-06-16 04:23 | PN ---
Teaching Attending Note Name of Resident: Rissa Negron ATTENDING PHYSICIAN STATEMENT I saw and evaluated the patient. I reviewed the resident's note and discussed the case with the resident. I agree with the resident's findings and plan as documented. SUBJECTIVE: 72 M with hx. of chronic back pain, p-afib (not on a/c), htn, hld, OA, parkinson's, hx. of laminectomy and fusion back sx., systolic CHF, LBBB fluid collection in lumbar area who presents after fall. He was walking with his walker, when he felt his left hip give out. States he fell. He denies hitting his head and notes he did not loose his concioussness. States he was d/c'd recently after admission for fall, saw neurosx. on the admission and they deemed no acute intervention and he was sent to [place] re[facility]. States he signed out rehab due to financial reason. Denies any fevers, chills or n/v/d. No chest pain or pressure. No shortness of breath, OBJECTIVE: Physical: VS: Vital Signs Period Temp Pulse Resp BP Sys/Suazo Pulse Ox Last 24 Hr 98.1 F 105 19 150/93 96 GEN: NAD, resting in bed, AA0x2 HEENT: NCAT, PERRL, throat without erythema or exudates CARD: RRR S1, S2 RESP: CTAB ABD: BSx4, NTD to palpation EXT: L. Calf ttp, - C/C/E CBCD WBC 10.4 K/mm3 (4.0-10.0) H 06/16/17 01:14 RBC 4.02 M/mm3 (4.00-5.60) 06/16/17 01:14 Hgb 13.3 GM/dL (11.7-16.9) 06/16/17 01:14 Hct 39.5 % (35.4-49) 06/16/17 01:14 MCV 98.2 fl (80-96) H 06/16/17 01:14 MCHC 33.7 g/dl (32.0-35.9) 06/16/17 01:14 RDW 16.5 % (11.9-15.9) H 06/16/17 01:14 Plt Count 252 K/MM3 (134-434) 06/16/17 01:14 MPV 8.6 fl (7.5-11.1) 06/16/17 01:14 CMP Sodium 144 mmol/L (136-145) 06/16/17 01:14 Potassium 3.7 mmol/L (3.5-5.1) 06/16/17 01:14 Chloride 110 mmol/L (98-107) H 06/16/17 01:14 Carbon Dioxide 20 mmol/L (21-32) L 06/16/17 01:14 Anion Gap 14 (8-16) 06/16/17 01:14 BUN 20 mg/dL (7-18) H D 06/16/17 01:14 Creatinine 1.1 mg/dL (0.7-1.3) 06/16/17 01:14 Creat Clearance w eGFR > 60 (>60) 06/16/17 01:14 Random Glucose 104 mg/dL (74-106) D 06/16/17 01:14 Calcium 9.1 mg/dL (8.5-10.1) 06/16/17 01:14 Total Bilirubin 0.3 mg/dL (0.2-1.0) 06/16/17 01:14 AST 17 U/L (15-37) 06/16/17 01:14 ALT 34 U/L (12-78) 06/16/17 01:14 Alkaline Phosphatase 92 U/L (45-117) 06/16/17 01:14 Total Protein 6.6 g/dl (6.4-8.2) 06/16/17 01:14 Albumin 3.8 g/dl (3.4-5.0) 06/16/17 01:14 Chest Xray Impression: No acute pathology. Pelvic Xray Impression: No acute fracture or dislocation of the left hip. CT HEAD- No acute Pathology Ambulatory Orders Multivitamins [Multivit ([facility] Formulary)] 1 tab PO DAILY tab 04/29/17 Acetaminophen [Tylenol] 325 mg PO QID PRN 05/14/17 Alendronate Na [Fosamax (Weekly)] 70 mg PO WEEKLY #4 tab 06/05/17 Carbidopa/Levodopa *Cr* 50/200 [Sinemet *Cr* 50/200 -] 1 combo PO 0700,1200, 1700 #30 tab 06/05/17 Docusate Sodium [Colace -] 200 mg PO HS PRN #30 cap 06/05/17 Ferrous Sulfate [Feosol] 325 mg PO BID@0800,1730 #60 tab 06/05/17 Gabapentin [Neurontin -] 300 mg PO TID #120 tab 06/05/17 Lidocaine 5% Patch [Lidoderm -] 1 patch TP DAILY #3 patch 06/05/17 Lidocaine Patch Removal [Lidoderm Patch Removal] 1 each MC DAILY@2200 each 09/20 Magnesium Hydrox 2400MG/30Ml [Milk of Magnesia -] 30 ml PO Q8H PRN #90 ml Metoprolol Tartrate [Lopressor -] 50 mg PO TID #90 tablet 06/05/17 Oxycodone HCl/Acetaminophen [Percocet 5-325 mg Tablet] 1 combo PO Q6H PRN #12 tablet MDD 4 tabs 06/05/17 Pantoprazole Sodium [Protonix -] 40 mg PO BID #60 tablet.ec 06/05/17 Polyethylene Glycol 3350 [Miralax 119 gm Btl -] 17 gm PO DAILY #1 bottle Pramipexole Dihydrochloride [Mirapex -] 0.5 mg PO 0700,1200,1700 #120 tablet 09/20 Pramipexole Dihydrochloride [Mirapex -] 0.5 mg PO HS #31 tablet 06/05/17 Sennosides [Senna -] 2 tab PO DAILY #30 tablet 06/05/17 Sodium Phosphate/Na Biphos [Fleet Adult Rectal Enema -] 133 ml RC WEEKLY PRN #4 enema 06/05/17 Oxycodone HCl/Acetaminophen [Percocet 5-325 mg Tablet] 2 tab PO BID PRN #28 tablet MDD 4 tabs 06/15/17 ASSESSMENT AND PLAN: 72 M with pmhx of afib, hld, chronic back pain s/p laminectomy and fusion sx., lumbar fluid collection who presents after mechanical fall. 1.) Mechanical Fall - PT. consult - SW consult for placement - HIP Xray/CT head negatuve - Pain control 2.) Lumbar Fluid Collection - No intervention as per neurosx at last visit - Fu Neurosx. outpt. 3.) Pakrinsons - C/W Sinement 4.) HTN - C/W home meds 5.) L. Calf Pain - Duplex L. Calf 6.) P. Afib - Not on A/C - C/W current meds 7.) Dvt Ppx - Heparin [address] in Med-Sx
--- NOTE | 2017-06-16 04:32 | HP ---
CHIEF COMPLAINT: Fall x 1 day PCP: HISTORY OF PRESENT ILLNESS: 72 yo M with a significant PMHx of chronic back pain, paroxysmal afib (not on anticoagulation), LLE weakness and pain s/p laminectomy and fusion back surgery , Anemia, BPH, COPD, Diverticulosis, Inflammatory bowel disease, Parkinson's disease, S/P laminectomy, Syncope, Systolic CHF, Depression, HTN, Hyperlipidemia , LBBB, Osteoarthritis, Polysubstance (excluding opioids) dependence, SVT ( supraventricular tachycardia) who presents to the ED s/p fall that occurred 3 hours prior to visit. Patient had been in the ED yesterday for (chronic) numbness of his L leg, prior to that he had been discharged for a fall on 06/05 and 06/03. Patient said he left the ED yesterday, was driven home by a paid university administrative assistant, and took two percocet at in the afternoon, took ensure 2 hours later and then while attempting to move around with the aid of his walker, felt his left leg give way and he fell. He denies hitting his head, LOC, or seizures. He denies palpitations, dizziness, or aura prior to the fall. He then crawled bearing weight on his right side to the phone and called the university administrative assistant who arrived in 45 mins and then got the ambulance to bring him back to the ED. Since the fall, he has not "felt himself", he feels nauseous and feels like he is trembling. He did not notice any bleeding from any orifice or weakness of any side of the body other than the chronic weakness of the LLE he has had. No visual changes. Patient had been discharged to a nursing facility in the past but had left for financial reasons and lives alone. He states that he has been compliant on all his medications. He has been passing loose stools (pt admits to being on enemas/promotility drugs ). No melana or BRBPR. No vomiting, no fever. ER course was notable for: (1) CBC, CMP-wnl (2) CT head, CXR, hip/pelvis Xray (3) Tachycardia-105 Recent Travel: PAST MEDICAL HISTORY: PAST SURGICAL HISTORY: Social History: Smoking: Alcohol: Drugs: Family History: Allergies pregabalin [From Lyrica] Allergy (Mild, Verified 06/15/17 10:03) pravastatin sodium [From Pravachol] Allergy (Unknown, Verified 06/15/17 10:03) however, pt takes atorvastatin 10 mg daily at home, reportedly without side effects lactose Allergy (Verified 06/15/17 10:03) Nausea morphine Allergy (Verified 06/15/17 10:03) unknown peanut Allergy (Verified 06/15/17 10:03) Penicillins Allergy (Verified 06/15/17 10:03) unknown affect HOME MEDICATIONS: Home Medications Medication Instructions Recorded Multivitamins [Multivit ([facility] 1 tab PO DAILY tab 04/29/17 Formulary)] Acetaminophen [Tylenol] 325 mg PO QID PRN 05/14/17 Alendronate Na [Fosamax (Weekly)] 70 mg PO WEEKLY #4 tab 06/05/17 Carbidopa/Levodopa *Cr* 50/200 1 combo PO 0700,1200,1700 #30 tab 06/05/17 [Sinemet *Cr* 50/200 -] Docusate Sodium [Colace -] 200 mg PO HS PRN #30 cap 06/05/17 Ferrous Sulfate [Feosol] 325 mg PO BID@0800,1730 #60 tab 06/05/17 Gabapentin [Neurontin -] 300 mg PO TID #120 tab 06/05/17 Lidocaine 5% Patch [Lidoderm -] 1 patch TP DAILY #3 patch 06/05/17 Lidocaine Patch Removal [Lidoderm 1 each MC DAILY@2200 each 06/05/17 Patch Removal] Magnesium Hydrox 2400MG/30Ml [Milk 30 ml PO Q8H PRN #90 ml 06/05/17 of Magnesia -] Metoprolol Tartrate [Lopressor -] 50 mg PO TID #90 tablet 06/05/17 Oxycodone HCl/Acetaminophen 1 combo PO Q6H PRN #12 tablet MDD 06/05/17 [Percocet 5-325 mg Tablet] 4 tabs Pantoprazole Sodium [Protonix -] 40 mg PO BID #60 tablet.ec 06/05/17 Polyethylene Glycol 3350 [Miralax 17 gm PO DAILY #1 bottle 06/05/17 119 gm Btl -] Pramipexole Dihydrochloride 0.5 mg PO 0700,1200,1700 #120 06/05/17 [Mirapex -] tablet Pramipexole Dihydrochloride 0.5 mg PO HS #31 tablet 06/05/17 [Mirapex -] Sennosides [Senna -] 2 tab PO DAILY #30 tablet 06/05/17 Sodium Phosphate/Na Biphos [Fleet 133 ml RC WEEKLY PRN #4 enema 06/05/17 Adult Rectal Enema -] Oxycodone HCl/Acetaminophen 2 tab PO BID PRN #28 tablet MDD 4 06/15/17 [Percocet 5-325 mg Tablet] tabs REVIEW OF SYSTEMS CONSTITUTIONAL: Absent: fever, chills, diaphoresis, generalized weakness, malaise, loss of appetite, weight change HEENT: Absent: rhinorrhea, nasal congestion, throat pain, throat swelling, difficulty swallowing, mouth swelling, ear pain, eye pain, visual changes CARDIOVASCULAR: Absent: chest pain, syncope, palpitations, irregular heart rate, lightheadedness , peripheral edema RESPIRATORY: Absent: cough, shortness of breath, dyspnea with exertion, orthopnea, wheezing, stridor, hemoptysis GASTROINTESTINAL: Absent: abdominal pain, abdominal distension, nausea, vomiting, diarrhea, constipation, melena, hematochezia GENITOURINARY: Absent: dysuria, frequency, urgency, hesitancy, hematuria, flank pain, genital pain MUSCULOSKELETAL: Absent: myalgia, arthralgia, joint swelling, back pain, neck pain SKIN: Absent: rash, itching, pallor HEMATOLOGIC/IMMUNOLOGIC: Absent: easy bleeding, easy bruising, lymphadenopathy, frequent infections ENDOCRINE: Absent: unexplained weight gain, unexplained weight loss, heat intolerance, cold intolerance NEUROLOGIC: Absent: headache, focal weakness or paresthesias, dizziness, unsteady gait, seizure, mental status changes, bladder or bowel incontinence PSYCHIATRIC: Absent: anxiety, depression, suicidal or homicidal ideation, hallucinations. PHYSICAL EXAMINATION Vital Signs - 24 hr 06/16/17 00:52 Temperature 98.1 F Pulse Rate 105 H Respiratory 19 Rate Blood Pressure 150/93 O2 Sat by Pulse 96 Oximetry (%) GENERAL: Awake, alert, and fully oriented, in no acute distress. HEAD: Normal with no signs of trauma, no bruises, no swellings. EYES: Pupils equal, round and reactive to light, extraocular movements intact, sclera anicteric, conjunctiva clear. EARS, NOSE, THROAT: Ears normal, nares patent, oropharynx clear without exudates. Dry mucous membranes. NECK: Normal range of motion, supple LUNGS: Breath sounds equal, clear to auscultation bilaterally. No wheezes, and no crackles. HEART: Regular rate and rhythm, normal S1 and S2 without murmur, ABDOMEN: Soft, nontender, not distended, normoactive bowel sounds MUSCULOSKELETAL: Normal range of motion at all joints except LLE. No bony deformities or tenderness. No CVA tenderness. UPPER EXTREMITIES: LUE and RUE-2+ pulses, warm, well-perfused. No cyanosis. No clubbing. No peripheral edema. LOWER EXTREMITIES: RLE-2+ pulses, warm, well-perfused. No calf tenderness. No peripheral edema. Normal reflexes, tone and muscle strength 5/5. LLE-2+ pulses, warm, well-perfused. Tender+. Reduced touch sensation LLE compared to RLE (chronic). No peripheral edema. Muscle strength 4/5 (pain+), hip flexion and knee extension (chronic) NEUROLOGICAL: No facial droop, no tongue or uvula deviation. Cranial nerves II- XII intact. Normal speech. Gait not observed PSYCHIATRIC: Cooperative. Good eye contact. Appropriate mood and affect. SKIN: Bruise R forearm Laboratory Results - last 24 hr 06/16/17 06/16/17 06/16/17 01:14 01:14 01:14 WBC 10.4 H RBC 4.02 Hgb 13.3 Hct 39.5 MCV 98.2 H MCH 33.1 MCHC 33.7 RDW 16.5 H Plt Count 252 MPV 8.6 Neutrophils % 83.4 H D Lymphocytes % 5.5 L D Monocytes % 8.4 Eosinophils % 1.9 Basophils % 0.8 PT with INR 12.10 H INR 1.07 Sodium 144 Potassium 3.7 Chloride 110 H Carbon Dioxide 20 L Anion Gap 14 BUN 20 H D Creatinine 1.1 Creat Clearance w eGFR > 60 Random Glucose 104 D Calcium 9.1 Magnesium 1.9 Total Bilirubin 0.3 AST 17 ALT 34 Alkaline Phosphatase 92 Total Protein 6.6 Albumin 3.8 Blood Type Antibody Screen 06/16/17 01:14 WBC RBC Hgb Hct MCV MCH MCHC RDW Plt Count MPV Neutrophils % Lymphocytes % Monocytes % Eosinophils % Basophils % PT with INR INR Sodium Potassium Chloride Carbon Dioxide Anion Gap BUN Creatinine Creat Clearance w eGFR Random Glucose Calcium Magnesium Total Bilirubin AST ALT Alkaline Phosphatase Total Protein Albumin Blood Type O NEGATIVE Antibody Screen Negative ASSESSMENT/PLAN: 72 yo M with a significant PMHx of chronic back pain, paroxysmal afib (not on anticoagulation), LLE weakness and pain s/p laminectomy and fusion back surgery , Anemia, BPH, COPD, Diverticulosis, Inflammatory bowel disease, Parkinson's disease, S/P laminectomy, Syncope, Systolic CHF, Depression, HTN, Hyperlipidemia , LBBB, Osteoarthritis, Polysubstance (excluding opioids) dependence, SVT ( supraventricular tachycardia) who presents to the ED s/p fall #s/p Fall Could be orthostatic, as patient has reduced intake, tachycardic, and has been passing loose stools could be autonomic-as pt has parkinsons (on treatment) Could be mechanical, since he has chronic weakness of the LLE, has been on percocet CBC, CMP-wnl CT head, CXR, hip/pelvis Xray Iv normal saline gentle rehydration Orthostatic BP Tylenol for pain #LLE pain R/O DVT Duplex US LLE #Loose stools Consider reviewing medications #Chronic problems Continue home meds #DVT SCDs #Dispo admit med surg Visit type - Emergency Visit Emergency Visit: Yes ED Registration Date: 06/16/17 Care time: The patient presented to the Emergency Department on the above date and was hospitalized for further evaluation of their emergent condition. - New Patient This patient is new to me today: Yes Date on this admission: 06/16/17 - Critical Care Critical Care patient: No
[2017-06-16] MEDS ORDERED: SODIUM CHLORIDE 1,000 ML IV SCH (05:15)
[2017-06-16 05:50] VITALS: BMI 21.9
[2017-06-16] MEDS ORDERED: DOCUSATE SODIUM 100 MG CAPSULE (FP) PO PRN (05:59)
[2017-06-16] MEDS ORDERED: MAGNESIUM HYDROX 2400MG/30ML ORAL SUSPENSION 30 ML CUP PO PRN (05:59)
[2017-06-16] MEDS ORDERED: ACETAMINOPHEN 325 MG TABLET (FP) PO PRN (05:59)
[2017-06-16] MEDS ORDERED: SODIUM PHOSPHATE/NA BIPHOS 133 ML ENEMA RC PRN (05:59)
[2017-06-16] MEDS ORDERED: PATIENT'S OWN MEDICATION (NON-FORMULARY) (Alendronate Na [Fosamax (Weekly)] 70 MG) PO SCH (06:00)
[2017-06-16] MEDS: GABAPENTIN 300 MG CAPSULE (FP) PO SCH ×3 (06:25→22:15)
[2017-06-16] MEDS: METOPROLOL TARTRATE 50 MG TABLET (FP) PO SCH ×3 (06:25→22:14)
[2017-06-16] MEDS: PRAMIPEXOLE DIHYDROCHLORIDE 0.5 MG TABLET PO SCH ×4 (07:51→22:18)
--- NOTE | 2017-06-16 08:05 | PN ---
Teaching Attending Note Name of Resident: Andree Butts ATTENDING PHYSICIAN STATEMENT I saw and evaluated the patient. I reviewed the resident's note and discussed the case with the resident. I agree with the resident's findings and plan as documented. SUBJECTIVE: Patient is lying in bed with no acute distress. OBJECTIVE: Vital Signs - 24 hr 06/16/17 06/16/17 00:52 05:28 Temperature 98.1 F 97.9 F Pulse Rate 105 H 94 H Respiratory 19 20 Rate Blood Pressure 150/93 134/90 O2 Sat by Pulse 96 98 Oximetry (%) CBCD WBC 10.4 K/mm3 (4.0-10.0) H 06/16/17 01:14 RBC 4.02 M/mm3 (4.00-5.60) 06/16/17 01:14 Hgb 13.3 GM/dL (11.7-16.9) 06/16/17 01:14 Hct 39.5 % (35.4-49) 06/16/17 01:14 MCV 98.2 fl (80-96) H 06/16/17 01:14 MCHC 33.7 g/dl (32.0-35.9) 06/16/17 01:14 RDW 16.5 % (11.9-15.9) H 06/16/17 01:14 Plt Count 252 K/MM3 (134-434) 06/16/17 01:14 MPV 8.6 fl (7.5-11.1) 06/16/17 01:14 CMP Sodium 144 mmol/L (136-145) 06/16/17 01:14 Potassium 3.7 mmol/L (3.5-5.1) 06/16/17 01:14 Chloride 110 mmol/L (98-107) H 06/16/17 01:14 Carbon Dioxide 20 mmol/L (21-32) L 06/16/17 01:14 Anion Gap 14 (8-16) 06/16/17 01:14 BUN 20 mg/dL (7-18) H D 06/16/17 01:14 Creatinine 1.1 mg/dL (0.7-1.3) 06/16/17 01:14 Creat Clearance w eGFR > 60 (>60) 06/16/17 01:14 Random Glucose 104 mg/dL (74-106) D 06/16/17 01:14 Calcium 9.1 mg/dL (8.5-10.1) 06/16/17 01:14 Total Bilirubin 0.3 mg/dL (0.2-1.0) 06/16/17 01:14 AST 17 U/L (15-37) 06/16/17 01:14 ALT 34 U/L (12-78) 06/16/17 01:14 Alkaline Phosphatase 92 U/L (45-117) 06/16/17 01:14 Total Protein 6.6 g/dl (6.4-8.2) 06/16/17 01:14 Albumin 3.8 g/dl (3.4-5.0) 06/16/17 01:14 Current Medications Generic Name Dose Route Start Last Admin Trade Name Freq PRN Reason Stop Dose Admin Acetaminophen 325 mg 06/16/17 05:59 Tylenol - PO Q6H PRN PAIN Carbidopa/Levodopa 1 combo 06/16/17 07:00 06/16/17 07:51 Sinemet *Cr* 50/200 - PO 1 combo 0700,1200,1700 SIENA Administration Docusate Sodium 200 mg 06/16/17 05:59 Colace - PO HS PRN CONSTIPATION Ferrous Sulfate 325 mg 06/16/17 08:00 Feosol - PO BID@0800,1730 SIENA Gabapentin 300 mg 06/16/17 06:00 06/16/17 06:25 Neurontin - PO 300 mg TID SIENA Administration Sodium Chloride 1,000 mls @ 50 mls/hr 06/16/17 05:15 06/16/17 06:25 Normal Saline - IV 06/17/17 05:05 50 mls/hr ASDIR SIENA Administration Lidocaine 1 patch 06/16/17 10:00 Lidoderm Patch - TP DAILY SIENA Magnesium Hydroxide 30 ml 06/16/17 05:59 Milk Of Magnesia - PO Q8H PRN CONSTIPATION Metoprolol Tartrate 50 mg 06/16/17 06:00 06/16/17 06:25 Lopressor - PO 50 mg TID SIENA Administration Miscellaneous 1 each 06/16/17 22:00 Lidoderm Patch Removal MC DAILY@2200 [facility] Multivitamins/Minerals/Vitamin C 1 tab 06/16/17 10:00 Tab-A-Vit - PO DAILY [facility] Non-Formulary Medication 70 mg 06/16/17 06:00 Alendronate Na [Fosamax (Weekly)] PO WEEKLY SIENA Pantoprazole Sodium 40 mg 06/16/17 10:00 Protonix - PO BID SIENA Pramipexole Dihydrochloride 0.5 mg 06/16/17 07:00 06/16/17 07:51 Mirapex - PO 0.5 mg 0700,1200,1700,2200 SIENA Administration Senna 2 tab 06/16/17 10:00 Senna - PO DAILY SIENA Sodium Phosphate 133 ml 06/16/17 05:59 Fleet Adult Rectal Enema - RC PRN PRN CONSTIPATION Home Medications Medication Instructions Recorded Multivitamins [Multivit ([facility] 1 tab PO DAILY tab 04/29/17 Formulary)] Acetaminophen [Tylenol] 325 mg PO QID PRN 05/14/17 Alendronate Na [Fosamax (Weekly)] 70 mg PO WEEKLY #4 tab 06/05/17 Carbidopa/Levodopa *Cr* 50/200 1 combo PO 0700,1200,1700 #30 tab 06/05/17 [Sinemet *Cr* 50/200 -] Docusate Sodium [Colace -] 200 mg PO HS PRN #30 cap 06/05/17 Ferrous Sulfate [Feosol] 325 mg PO BID@0800,1730 #60 tab 06/05/17 Gabapentin [Neurontin -] 300 mg PO TID #120 tab 06/05/17 Lidocaine 5% Patch [Lidoderm -] 1 patch TP DAILY #3 patch 06/05/17 Lidocaine Patch Removal [Lidoderm 1 each MC DAILY@2200 each 06/05/17 Patch Removal] Magnesium Hydrox 2400MG/30Ml [Milk 30 ml PO Q8H PRN #90 ml 06/05/17 of Magnesia -] Metoprolol Tartrate [Lopressor -] 50 mg PO TID #90 tablet 06/05/17 Oxycodone HCl/Acetaminophen 1 combo PO Q6H PRN #12 tablet MDD 06/05/17 [Percocet 5-325 mg Tablet] 4 tabs Pantoprazole Sodium [Protonix -] 40 mg PO BID #60 tablet.ec 06/05/17 Polyethylene Glycol 3350 [Miralax 17 gm PO DAILY #1 bottle 06/05/17 119 gm Btl -] Pramipexole Dihydrochloride 0.5 mg PO 0700,1200,1700 #120 06/05/17 [Mirapex -] tablet Pramipexole Dihydrochloride 0.5 mg PO HS #31 tablet 06/05/17 [Mirapex -] Sennosides [Senna -] 2 tab PO DAILY #30 tablet 06/05/17 Sodium Phosphate/Na Biphos [Fleet 133 ml RC WEEKLY PRN #4 enema 06/05/17 Adult Rectal Enema -] Oxycodone HCl/Acetaminophen 2 tab PO BID PRN #28 tablet MDD 4 06/15/17 [Percocet 5-325 mg Tablet] tabs PE: per resident's note ASSESSMENT AND PLAN: 72 M with pmhx of afib, hld, chronic back pain s/p laminectomy and fusion sx., lumbar fluid collection who presents after mechanical fall. # Mechanical Fall , patient has been admitted for multiple times for falls. PT. consult, dialysis social worker/spring encaser on the case for placement. # Lumbar Fluid Collection No intervention as per neurosx at last visit; [facility]. outpt. # Hx of Pakrinsons C/W Sinimet # HTN continue home meds # L. Calf Pain Duplex L. Calf #Hx of P Afib Not on A/C Dvt Ppx: Heparin 5000 q 8
[2017-06-16 08:14] LABS: MCH 32.8 pg (25.7-33.7); MCHC 33.2 g/dl (32.0-35.9); MEAN CELL VOLUME 98.8 fl (80-96); MEAN PLT VOLUME 8.2 fl (7.5-11.1); PLATELET COUNT 244 K/MM3 (134-434); RDW 16.1 % (11.9-15.9); WHITE BLOOD COUNT 8.2 K/mm3 (4.0-10.0)
[2017-06-16 09:00] LABS: ALBUMIN 3.5 g/dl (3.4-5.0); ANION GAP 7 (8-16); CALCIUM 8.8 mg/dL (8.5-10.1); CO2 26 mmol/L (21-32); GLUCOSE,RANDOM 99 mg/dL (74-106); PHOSPHOROUS 3.5 mg/dL (2.5-4.9); SGOT/AST 14 U/L (15-37); SGPT/ALT 29 U/L (12-78)
[2017-06-16 09:02] LABS: ALK PHOS 84 U/L (45-117); BILIRUBIN,TOTAL 0.6 mg/dL (0.2-1.0)
[2017-06-16] MEDS ORDERED: PT OWN MED DRAWER 7, Y5N ONE (09:03)
[2017-06-16] MEDS: MULTIVITAMINS (DAILY MVI) TABLET (FP) PO SCH (09:14)
[2017-06-16] MEDS: SENNOSIDES 8.6MG TABLET (FP) PO SCH (09:18)
[2017-06-16] MEDS: PANTOPRAZOLE 40 MG TABLET (FP) PO SCH ×2 (09:18→22:14)
[2017-06-16] MEDS: FERROUS SO4 325 MG TABLET (FP) PO SCH ×2 (09:18→17:25)
[2017-06-16] MEDS: LIDOCAINE 5% TOPICAL PATCH TP SCH (09:18)
[2017-06-16] MEDS: oxyCODONE HCL 5 MG TABLET PO PRN (15:47)
--- NOTE | 2017-06-16 16:23 | PN ---
Physical Exam: SUBJECTIVE: Patient seen and examined at bedside. no complaints at this time. OBJECTIVE: Vital Signs Period Temp Pulse Resp BP Sys/Suazo Pulse Ox Last 24 Hr 97.4 F-98.1 F 65-105 18-20 116-150/73-93 94-98 GENERAL: The patient is awake, alert, and fully oriented, in no acute distress. HEAD: Normal with no signs of trauma. EYES: Extraocular movements intact, sclera anicteric, conjunctiva clear. No ptosis. ENT: Moist mucous membranes. NECK: Trachea midline, supple. LUNGS: Breath sounds equal, clear to auscultation bilaterally, no wheezes, no crackles, no accessory muscle use. HEART: Regular rate and rhythm, S1, S2 without murmur, rub or gallop. EXTREMITIES: Warm, well-perfused, no edema. Pain better controlled. Sensation intact bilaterally. no knee jerk reflexes appreciated. 2+ biceps jerk. RLE strength 4/5..LLE 4- PSYCH: Normal mood, normal affect. SKIN: Warm, dry, normal turgor, no rashes or lesions noted Laboratory Results - last 24 hr 06/16/17 06/16/17 06/16/17 01:14 01:14 01:14 WBC 10.4 H RBC 4.02 Hgb 13.3 Hct 39.5 MCV 98.2 H MCH 33.1 MCHC 33.7 RDW 16.5 H Plt Count 252 MPV 8.6 Neutrophils % 83.4 H D Lymphocytes % 5.5 L D Monocytes % 8.4 Eosinophils % 1.9 Basophils % 0.8 PT with INR 12.10 H INR 1.07 Sodium 144 Potassium 3.7 Chloride 110 H Carbon Dioxide 20 L Anion Gap 14 BUN 20 H D Creatinine 1.1 Creat Clearance w eGFR > 60 Random Glucose 104 D Calcium 9.1 Phosphorus Magnesium 1.9 Total Bilirubin 0.3 AST 17 ALT 34 Alkaline Phosphatase 92 Total Protein 6.6 Albumin 3.8 Blood Type Antibody Screen 06/16/17 06/16/17 06/16/17 01:14 07:45 07:45 WBC 8.2 RBC 3.77 L Hgb 12.4 Hct 37.2 MCV 98.8 H MCH 32.8 MCHC 33.2 RDW 16.1 H Plt Count 244 MPV 8.2 Neutrophils % Lymphocytes % Monocytes % Eosinophils % Basophils % PT with INR INR Sodium 144 Potassium 3.9 Chloride 111 H Carbon Dioxide 26 D Anion Gap 7 L BUN 18 Creatinine 1.0 Creat Clearance w eGFR > 60 Random Glucose 99 Calcium 8.8 Phosphorus 3.5 Magnesium 2.0 Total Bilirubin 0.6 D AST 14 L ALT 29 Alkaline Phosphatase 84 Total Protein 6.0 L Albumin 3.5 Blood Type O NEGATIVE Antibody Screen Negative Active Medications Generic Name Dose Route Start Last Admin Trade Name Freq PRN Reason Stop Dose Admin Carbidopa/Levodopa 1 combo 06/16/17 07:00 06/16/17 12:06 Sinemet *Cr* 50/200 - PO 1 combo 0700,1200,1700 SIENA Administration Docusate Sodium 200 mg 06/16/17 22:00 Colace - PO HS SIENA Ferrous Sulfate 325 mg 06/16/17 08:00 06/16/17 09:18 Feosol - PO 325 mg BID@0800,1730 SIENA Administration Gabapentin 300 mg 06/16/17 06:00 06/16/17 14:37 Neurontin - PO 300 mg TID SIENA Administration Heparin Sodium (Porcine) 5,000 unit 06/16/17 22:00 Heparin - SQ TID SIENA Sodium Chloride 1,000 mls @ 50 mls/hr 06/16/17 05:15 06/16/17 06:25 Normal Saline - IV 06/17/17 05:05 50 mls/hr ASDIR SIENA Administration Lidocaine 1 patch 06/16/17 10:00 06/16/17 09:18 Lidoderm Patch - TP 1 patch DAILY SIENA Administration Magnesium Hydroxide 30 ml 06/16/17 05:59 Milk Of Magnesia - PO Q8H PRN CONSTIPATION Metoprolol Tartrate 50 mg 06/16/17 06:00 06/16/17 14:37 Lopressor - PO 50 mg TID SIENA Administration Miscellaneous 1 each 06/16/17 22:00 Lidoderm Patch Removal MC DAILY@2200 [facility] Multivitamins/Minerals/Vitamin C 1 tab 06/16/17 10:00 06/16/17 09:14 Tab-A-Vit - PO 1 tab DAILY SIENA Administration Oxycodone HCl 5 mg 06/16/17 14:05 06/16/17 15:47 Roxicodone - PO 5 mg Q6H PRN Administration PAIN Pantoprazole Sodium 40 mg 06/16/17 10:00 06/16/17 09:18 Protonix - PO 40 mg BID SIENA Administration Pramipexole Dihydrochloride 0.5 mg 06/16/17 07:00 06/16/17 12:06 Mirapex - PO 0.5 mg 0700,1200,1700,2200 SIENA Administration Senna 2 tab 06/16/17 10:00 06/16/17 09:18 Senna - PO 2 tab DAILY SIENA Administration Sodium Phosphate 133 ml 06/16/17 05:59 Fleet Adult Rectal Enema - RC PRN PRN CONSTIPATION ASSESSMENT/PLAN: Pain and weakness in lower extremities likely 2/2 deconditioning vs poor pain control. Patient having alleged frequent falls. start oxycodone for pain control lidoderm patch continue neurontin will need outpatient neurosurgery follow up and follow up with pain management with Dr. Mondragon for injections oper Dr. Mays from neurosurgery PT consult BID constipation Milk of magnesia fleet enema parkinsons continue sinemet continue mirapex paroxysmal afib metoprolol 50mg TID HTN HLD FEN Stop IVF monitor lytes sodium controlled diet prophylaxsis HSQ Protonix PT consult BID Dispo pending adult protective services evaluation Visit type - Emergency Visit Emergency Visit: Yes ED Registration Date: 06/16/17 Care time: The patient presented to the Emergency Department on the above date and was hospitalized for further evaluation of their emergent condition. - New Patient This patient is new to me today: Yes Date on this admission: 06/16/17 - Critical Care Critical Care patient: No
--- NOTE | 2017-06-16 17:27 | EKG ---
Test Reason : Blood Pressure : / mmHG Vent. Rate : 094 BPM Atrial Rate : 094 BPM P-R Int : 180 ms QRS Dur : 122 ms QT Int : 380 ms P-R-T Axes : 017 -71 114 degrees QTc Int : 475 ms NORMAL SINUS RHYTHM LEFT AXIS DEVIATION COMPLETE LBBB ABNORMAL ECG WHEN COMPARED WITH ECG OF 15-JUN-2017 10:09, NO SIGNIFICANT CHANGE WAS FOUND Confirmed by KESHAWN LIVE MD ([id number]) on 06/16/2017 5:27:29 PM Referred By: Confirmed By:KESHAWN LIVE MD
[2017-06-16] MEDS ORDERED: PRAMIPEXOLE DIHYDROCHLORIDE 0.5 MG TABLET PO SCH (22:00)
[2017-06-16] MEDS: DOCUSATE SODIUM 100 MG CAPSULE (FP) PO SCH (22:14)
[2017-06-16] MEDS: HEPARIN NA (PORCINE) 5,000 UNITS/ML 1ML VIAL SQ SCH (22:15)
[2017-06-16] MEDS: LIDOCAINE PATCH REMOVAL MC SCH (22:19)
[2017-06-17] MEDS: oxyCODONE HCL 5 MG TABLET PO PRN ×3 (01:25→22:04)
[2017-06-17] MEDS: PRAMIPEXOLE DIHYDROCHLORIDE 0.5 MG TABLET PO SCH ×4 (06:25→21:47)
[2017-06-17] MEDS: METOPROLOL TARTRATE 50 MG TABLET (FP) PO SCH ×3 (06:25→21:44)
[2017-06-17] MEDS: GABAPENTIN 300 MG CAPSULE (FP) PO SCH ×3 (06:25→21:44)
--- NOTE | 2017-06-17 08:25 | PN ---
Physical Exam: SUBJECTIVE: Patient seen and examined. Pt continues to c/o weakness and pain in the Left LE. Pt denies fever, chills, headache, chest pain, abdominal pain. No events overnight. OBJECTIVE: Vital Signs Period Temp Pulse Resp BP Sys/Suazo Pulse Ox Last 24 Hr 97.4 F-98.6 F 64-72 18-20 106-123/66-75 94-96 GENERAL: The patient is awake, alert, and fully oriented, in no acute distress. HEAD: Normal with no signs of trauma. EYES: Extraocular movements intact, sclera anicteric, conjunctiva clear. No ptosis. ENT: Moist mucous membranes. NECK: Trachea midline, supple. LUNGS: Breath sounds equal, clear to auscultation bilaterally, no wheezes, no crackles, no accessory muscle use. HEART: Regular rate and rhythm, S1, S2 without murmur, rub or gallop. ABDOMEN: Soft, nontender, nondistended, normoactive bowel sounds, no guarding, no rebound, no masses. EXTREMITIES: Warm, well-perfused, no edema. Sensation intact throughout, though diminished in Left LE. No knee jerk reflexes appreciated. 2+ biceps jerk. Muscle strength 5/5 in farrukh UE for shoulder abduction and elbow flexion/ extension, 4/5 for hand squeeze. Muscle strength 5/5 in Right LE for hip flexion, dorsiflexion/plantar flexion. Muscle strength in Left LE 4/5 for hip flexion, dorsiflexion/plantar flexion. PSYCH: Normal mood, normal affect. SKIN: Warm, dry, normal turgor, no rashes or lesions noted Laboratory Results - last 24 hr 06/16/17 06/16/17 07:45 07:45 WBC 8.2 RBC 3.77 L Hgb 12.4 Hct 37.2 MCV 98.8 H MCH 32.8 MCHC 33.2 RDW 16.1 H Plt Count 244 MPV 8.2 Sodium 144 Potassium 3.9 Chloride 111 H Carbon Dioxide 26 D Anion Gap 7 L BUN 18 Creatinine 1.0 Creat Clearance w eGFR > 60 Random Glucose 99 Calcium 8.8 Phosphorus 3.5 Magnesium 2.0 Total Bilirubin 0.6 D AST 14 L ALT 29 Alkaline Phosphatase 84 Total Protein 6.0 L Albumin 3.5 Active Medications Generic Name Dose Route Start Last Admin Trade Name Freq PRN Reason Stop Dose Admin Carbidopa/Levodopa 1 combo 06/16/17 07:00 06/17/17 06:25 Sinemet *Cr* 50/200 - PO 1 combo 0700,1200,1700 SIENA Administration Docusate Sodium 200 mg 06/16/17 22:00 06/16/17 22:14 Colace - PO 200 mg HS SIENA Administration Ferrous Sulfate 325 mg 06/16/17 08:00 06/16/17 17:25 Feosol - PO 325 mg BID@0800,1730 SIENA Administration Gabapentin 300 mg 06/16/17 06:00 06/17/17 06:25 Neurontin - PO 300 mg TID SIENA Administration Heparin Sodium (Porcine) 5,000 unit 06/16/17 22:00 06/16/17 22:15 Heparin - SQ 5,000 unit TID SIENA Administration Lidocaine 1 patch 06/16/17 10:00 06/16/17 09:18 Lidoderm Patch - TP 1 patch DAILY SIENA Administration Magnesium Hydroxide 30 ml 06/16/17 05:59 Milk Of Magnesia - PO Q8H PRN CONSTIPATION Metoprolol Tartrate 50 mg 06/16/17 06:00 06/17/17 06:25 Lopressor - PO 50 mg TID SIENA Administration Miscellaneous 1 each 06/16/17 22:00 06/16/17 22:19 Lidoderm Patch Removal MC 1 each DAILY@2200 SEINA Administration Multivitamins/Minerals/Vitamin C 1 tab 06/16/17 10:00 06/16/17 09:14 Tab-A-Vit - PO 1 tab DAILY SIENA Administration Oxycodone HCl 5 mg 06/16/17 14:05 06/17/17 01:25 Roxicodone - PO 5 mg Q6H PRN Administration PAIN Pantoprazole Sodium 40 mg 06/16/17 10:00 06/16/17 22:14 Protonix - PO 40 mg BID SIENA Administration Pramipexole Dihydrochloride 0.5 mg 06/16/17 07:00 06/17/17 06:25 Mirapex - PO 0.5 mg 0700,1200,1700,2200 SIENA Administration Senna 2 tab 06/16/17 10:00 06/16/17 09:18 Senna - PO 2 tab DAILY SIENA Administration Sodium Phosphate 133 ml 06/16/17 05:59 Fleet Adult Rectal Enema - RC PRN PRN CONSTIPATION IMAGIN06/16/17 Vascular Study Left LE -> no DVT ASSESSMENT/PLAN: 72yo M with PMH of chronic back pain s/p laminectomy and fusion surgery with fluid collection at lumbar laminectomy sight, afib, parkinson's, CHF, presents c /o pain and weakness in Left LE s/p mechanical fall. # Left LE pain and weakness - likely 2/2 deconditioning vs poor pain control - Oxycodone increased to 5mg po q4hr prn for pain - continue home meds of Lidoderm patch and Neurontin for pain control - f/u with neurosurgery (Dr. Queen) as outpatient - PT BID - pt encouraged to participate # constipation - continue Senna, Colace, Milk of magnesia prn, and fleet enema prn # parkinson's - continue home meds of Sinemet and Mirapex # paroxysmal afib - continue home med of Lopressor 50mg TID # FEN - Fluids: po - Electrolytes: wnl, continue to monitor - Nutrition: sodium controlled diet # Prophylaxis - DVT ppx with Heparin 5,000U SQ TID - GI ppx with Protonix 40mg BID - deconditioning ppx with PT consult BID Visit type - Emergency Visit Emergency Visit: Yes ED Registration Date: 06/16/17 Care time: The patient presented to the Emergency Department on the above date and was hospitalized for further evaluation of their emergent condition. - New Patient This patient is new to me today: No - Critical Care Critical Care patient: No
[2017-06-17] MEDS: FERROUS SO4 325 MG TABLET (FP) PO SCH ×2 (08:46→18:16)
[2017-06-17] MEDS: HEPARIN NA (PORCINE) 5,000 UNITS/ML 1ML VIAL SQ SCH ×3 (08:47→21:43)
[2017-06-17] MEDS: PANTOPRAZOLE 40 MG TABLET (FP) PO SCH ×2 (11:00→21:44)
[2017-06-17] MEDS: SENNOSIDES 8.6MG TABLET (FP) PO SCH (11:00)
[2017-06-17] MEDS: MULTIVITAMINS (DAILY MVI) TABLET (FP) PO SCH (11:00)
[2017-06-17] MEDS: LIDOCAINE 5% TOPICAL PATCH TP SCH (11:00)
--- NOTE | 2017-06-17 19:46 | PN ---
Teaching Attending Note Name of Resident: Andree Butts ATTENDING PHYSICIAN STATEMENT I saw and evaluated the patient. I reviewed the resident's note and discussed the case with the resident. I agree with the resident's findings and plan as documented. SUBJECTIVE: Patient has no acute distress, lying in bed in no acute distress. OBJECTIVE: Vital Signs Temperature 98.2 F 06/17/17 19:00 Pulse Rate 69 06/17/17 19:00 Respiratory Rate 20 06/17/17 19:00 Blood Pressure 111/71 06/17/17 19:00 O2 Sat by Pulse Oximetry (%) 96 06/17/17 09:00 CBCD WBC 8.2 K/mm3 (4.0-10.0) 06/16/17 07:45 RBC 3.77 M/mm3 (4.00-5.60) L 06/16/17 07:45 Hgb 12.4 GM/dL (11.7-16.9) 06/16/17 07:45 Hct 37.2 % (35.4-49) 06/16/17 07:45 MCV 98.8 fl (80-96) H 06/16/17 07:45 MCHC 33.2 g/dl (32.0-35.9) 06/16/17 07:45 RDW 16.1 % (11.9-15.9) H 06/16/17 07:45 Plt Count 244 K/MM3 (134-434) 06/16/17 07:45 MPV 8.2 fl (7.5-11.1) 06/16/17 07:45 CMP Sodium 144 mmol/L (136-145) 06/16/17 07:45 Potassium 3.9 mmol/L (3.5-5.1) 06/16/17 07:45 Chloride 111 mmol/L (98-107) H 06/16/17 07:45 Carbon Dioxide 26 mmol/L (21-32) D 06/16/17 07:45 Anion Gap 7 (8-16) L 06/16/17 07:45 BUN 18 mg/dL (7-18) 06/16/17 07:45 Creatinine 1.0 mg/dL (0.7-1.3) 06/16/17 07:45 Creat Clearance w eGFR > 60 (>60) 06/16/17 07:45 Random Glucose 99 mg/dL (74-106) 06/16/17 07:45 Calcium 8.8 mg/dL (8.5-10.1) 06/16/17 07:45 Total Bilirubin 0.6 mg/dL (0.2-1.0) D 06/16/17 07:45 AST 14 U/L (15-37) L 06/16/17 07:45 ALT 29 U/L (12-78) 06/16/17 07:45 Alkaline Phosphatase 84 U/L (45-117) 06/16/17 07:45 Total Protein 6.0 g/dl (6.4-8.2) L 06/16/17 07:45 Albumin 3.5 g/dl (3.4-5.0) 06/16/17 07:45 Current Medications Generic Name Dose Route Start Last Admin Trade Name Freq PRN Reason Stop Dose Admin Carbidopa/Levodopa 1 combo 06/16/17 07:00 06/17/17 18:17 Sinemet *Cr* 50/200 - PO 1 combo 0700,1200,1700 SIENA Administration Docusate Sodium 200 mg 06/16/17 22:00 06/16/17 22:14 Colace - PO 200 mg HS SIENA Administration Ferrous Sulfate 325 mg 06/16/17 08:00 06/17/17 18:16 Feosol - PO 325 mg BID@0800,1730 SIENA Administration Gabapentin 300 mg 06/16/17 06:00 06/17/17 15:21 Neurontin - PO 300 mg TID SIENA Administration Heparin Sodium (Porcine) 5,000 unit 06/16/17 22:00 06/17/17 15:20 Heparin - SQ 5,000 unit TID SIENA Administration Lidocaine 1 patch 06/16/17 10:00 06/17/17 11:00 Lidoderm Patch - TP 1 patch DAILY SIENA Administration Magnesium Hydroxide 30 ml 06/16/17 05:59 Milk Of Magnesia - PO Q8H PRN CONSTIPATION Metoprolol Tartrate 50 mg 06/16/17 06:00 06/17/17 15:20 Lopressor - PO 50 mg TID SIENA Administration Miscellaneous 1 each 06/16/17 22:00 06/16/17 22:19 Lidoderm Patch Removal MC 1 each DAILY@2200 SIENA Administration Multivitamins/Minerals/Vitamin C 1 tab 06/16/17 10:00 06/17/17 11:00 Tab-A-Vit - PO 1 tab DAILY SIENA Administration Oxycodone HCl 5 mg 06/17/17 13:22 06/17/17 15:40 Roxicodone - PO 5 mg Q4H PRN Administration PAIN Pantoprazole Sodium 40 mg 06/16/17 10:00 06/17/17 11:00 Protonix - PO 40 mg BID SIENA Administration Pramipexole Dihydrochloride 0.5 mg 06/16/17 07:00 06/17/17 18:17 Mirapex - PO 0.5 mg 0700,1200,1700,2200 SIENA Administration Senna 2 tab 06/16/17 10:00 06/17/17 11:00 Senna - PO 2 tab DAILY SIENA Administration Sodium Phosphate 133 ml 06/16/17 05:59 Fleet Adult Rectal Enema - RC PRN PRN CONSTIPATION Home Medications Medication Instructions Recorded Multivitamins [Multivit ([facility] 1 tab PO DAILY tab 04/29/17 Formulary)] Acetaminophen [Tylenol] 325 mg PO QID PRN 05/14/17 Alendronate Na [Fosamax (Weekly)] 70 mg PO WEEKLY #4 tab 06/05/17 Carbidopa/Levodopa *Cr* 50/200 1 combo PO 0700,1200,1700 #30 tab 06/05/17 [Sinemet *Cr* 50/200 -] Docusate Sodium [Colace -] 200 mg PO HS PRN #30 cap 06/05/17 Ferrous Sulfate [Feosol] 325 mg PO BID@0800,1730 #60 tab 06/05/17 Gabapentin [Neurontin -] 300 mg PO TID #120 tab 06/05/17 Lidocaine 5% Patch [Lidoderm -] 1 patch TP DAILY #3 patch 06/05/17 Lidocaine Patch Removal [Lidoderm 1 each MC DAILY@2200 each 06/05/17 Patch Removal] Magnesium Hydrox 2400MG/30Ml [Milk 30 ml PO Q8H PRN #90 ml 06/05/17 of Magnesia -] Metoprolol Tartrate [Lopressor -] 50 mg PO TID #90 tablet 06/05/17 Oxycodone HCl/Acetaminophen 1 combo PO Q6H PRN #12 tablet MDD 06/05/17 [Percocet 5-325 mg Tablet] 4 tabs Pantoprazole Sodium [Protonix -] 40 mg PO BID #60 tablet.ec 06/05/17 Polyethylene Glycol 3350 [Miralax 17 gm PO DAILY #1 bottle 06/05/17 119 gm Btl -] Pramipexole Dihydrochloride 0.5 mg PO 0700,1200,1700 #120 06/05/17 [Mirapex -] tablet Pramipexole Dihydrochloride 0.5 mg PO HS #31 tablet 06/05/17 [Mirapex -] Sennosides [Senna -] 2 tab PO DAILY #30 tablet 06/05/17 Sodium Phosphate/Na Biphos [Fleet 133 ml RC WEEKLY PRN #4 enema 06/05/17 Adult Rectal Enema -] Oxycodone HCl/Acetaminophen 2 tab PO BID PRN #28 tablet MDD 4 06/15/17 [Percocet 5-325 mg Tablet] tabs PE: per resident's note ASSESSMENT AND PLAN: 72 M with pmhx of afib, hld, chronic back pain s/p laminectomy and fusion sx., lumbar fluid collection who presents after mechanical fall. # Mechanical Fall , patient has been admitted for multiple times for falls. PT. consult, social professionals/case management rn on the case for placement. APS was contacted by case management rn since patient has been falling. # Lumbar Fluid Collection No intervention as per neurosx at last visit; Fu Neurosx. outpt. # Hx of Pakrinsons C/W Sinimet # HTN continue home meds # L. Calf Pain Duplex L. Calf #Hx of P Afib Not on A/C Dvt Ppx: Heparin 5000 q 8
[2017-06-17] MEDS: LIDOCAINE PATCH REMOVAL MC SCH (21:44)
[2017-06-17] MEDS: DOCUSATE SODIUM 100 MG CAPSULE (FP) PO SCH (21:44)
[2017-06-18] MEDS: HEPARIN NA (PORCINE) 5,000 UNITS/ML 1ML VIAL SQ SCH ×2 (06:19→13:25)
[2017-06-18] MEDS: METOPROLOL TARTRATE 50 MG TABLET (FP) PO SCH ×2 (06:19→13:25)
[2017-06-18] MEDS: GABAPENTIN 300 MG CAPSULE (FP) PO SCH ×2 (06:19→13:25)
[2017-06-18] MEDS: PRAMIPEXOLE DIHYDROCHLORIDE 0.5 MG TABLET PO SCH ×3 (06:20→17:45)
[2017-06-18 08:00] LABS: ANION GAP 9 (8-16); CALCIUM 8.3 mg/dL (8.5-10.1); CO2 24 mmol/L (21-32); GLUCOSE,RANDOM 87 mg/dL (74-106); MAGNESIUM 1.9 mg/dL (1.8-2.4)
[2017-06-18 08:01] LABS: CREATININE 0.9 mg/dL (0.7-1.3); PHOSPHOROUS 3.4 mg/dL (2.5-4.9)
[2017-06-18 08:07] LABS: MCH 32.6 pg (25.7-33.7); MCHC 32.7 g/dl (32.0-35.9); MEAN CELL VOLUME 99.7 fl (80-96); MEAN PLT VOLUME 8.7 fl (7.5-11.1); PLATELET COUNT 197 K/MM3 (134-434); RDW 16.1 % (11.9-15.9); WHITE BLOOD COUNT 7.9 K/mm3 (4.0-10.0)
[2017-06-18] MEDS: FERROUS SO4 325 MG TABLET (FP) PO SCH ×2 (08:42→17:44)
[2017-06-18] MEDS ORDERED: PT OWN MED DRAWER 7, Y5N ONE (09:40)
[2017-06-18] MEDS: PANTOPRAZOLE 40 MG TABLET (FP) PO SCH (09:43)
[2017-06-18] MEDS: oxyCODONE HCL 5 MG TABLET PO PRN ×2 (09:43→13:25)
[2017-06-18] MEDS: MULTIVITAMINS (DAILY MVI) TABLET (FP) PO SCH (09:43)
[2017-06-18] MEDS: SENNOSIDES 8.6MG TABLET (FP) PO SCH (09:43)
[2017-06-18] MEDS: LIDOCAINE 5% TOPICAL PATCH TP SCH (09:43)
[2017-06-18 15:14] VITALS: PULSE 72
--- NOTE | 2017-06-18 17:42 | PN ---
Teaching Attending Note Name of Resident: Andree Butts ATTENDING PHYSICIAN STATEMENT I saw and evaluated the patient. I reviewed the resident's note and discussed the case with the resident. I agree with the resident's findings and plan as documented. SUBJECTIVE: no fever or chills.cont to have sciatica in L leg . OBJECTIVE: NAD , AAOx3 CV : RRR LUngs : CTAB ext : no edema Neuro : 3/5 L hip flexion , 4/5 R hip flexion , 4/5 knee flexion and extension b/l. 4/5 R ankle dorsiflexion, and 3/5 on L. plantar flexion 4/5 B/l 2+ knee jerk and 1+ biceps b/l ASSESSMENT AND PLAN: 72 y/o man with h/o P Afib, HTN, HLP , chronic back paina nd scoliosis s/p laminectomy and fusion in apr who presented after a mechanical fall 1- Mechanical fall.No FX on xrays . CT head with dilated ventricles. Seen by Dr. Weir and neuro in a previous admission. he does not have mental status change but has urinary incontinence and gait instability ( which could be due to L leg pain and weakness frm back problems ) . NPH is in DDx , and Shunt was discussed with Dr. Martinez in a previous admission , follow up as out pt was recommended 2- scoliosis, back pain , s/p laminectomy , Sciatica . stable neuro exam of LE form last admission . PT 3- h/o A fib, not on AC due to falls . cont metoprolol 50 TID 4- parinson's disease : cont sinemet Dispo : Evaluated by PT. ambulated 25 fee. He declined rehab placement . VNS arranged,( d/W CM ) . dc home f/u with neuro sx and PCP
[2017-06-18 19:49] VITALS: BP 130/60; TEMP 98
--- NOTE | 2017-06-18 22:44 | DS ---
Physical Exam: SUBJECTIVE: Patient seen and examined. Pain is better controlled with Oxycodone q4hr prn. Pt denies fever, chills. No events overnight. OBJECTIVE: Vital Signs Period Temp Pulse Resp BP Sys/Suazo Pulse Ox Last 24 Hr 97.8 F-98.8 F 61-72 16-20 123-136/56-73 98 PHYSICAL EXAM GENERAL: The patient is awake, alert, and fully oriented, in no acute distress. HEAD: Normal with no signs of trauma. EYES: Extraocular movements intact, sclera anicteric, conjunctiva clear. ENT: Moist mucous membranes. LUNGS: Breath sounds equal, clear to auscultation bilaterally, no wheezes, no crackles, no accessory muscle use. HEART: Regular rate and rhythm, S1, S2 without murmur, rub or gallop. ABDOMEN: Soft, nontender, nondistended, normoactive bowel sounds, no guarding, no rebound, no masses. EXTREMITIES: Warm, well-perfused, no edema. NEUROLOGICAL: Sensation intact throughout, though diminished in Left LE. No knee jerk reflexes appreciated. 2+ biceps jerk. Muscle strength 5/5 in farrukh UE for shoulder abduction and elbow flexion/extension, 4/5 for hand squeeze. Muscle strength 4/5 in Right LE for hip flexion, dorsiflexion/plantar flexion. Muscle strength in Left LE 3/5 for hip flexion, dorsiflexion/plantar flexion. SKIN: Warm, dry, normal turgor, no rashes or lesions noted. LABS Laboratory Results - last 24 hr 06/18/17 06/18/17 06:25 06:25 WBC 7.9 RBC 3.57 L Hgb 11.7 Hct 35.6 MCV 99.7 H MCH 32.6 MCHC 32.7 RDW 16.1 H Plt Count 197 MPV 8.7 Sodium 142 Potassium 4.1 Chloride 109 H Carbon Dioxide 24 Anion Gap 9 BUN 14 D Creatinine 0.9 Random Glucose 87 Calcium 8.3 L Phosphorus 3.4 Magnesium 1.9 HOSPITAL COURSE: Date of Admission:06/16/17 Date of Discharge: 06/18/17 72yo M with PMH of chronic back pain s/p laminectomy and fusion surgery with fluid collection at lumbar laminectomy sight, afib, parkinson's, CHF, presents c /o pain and weakness in Left LE s/p mechanical fall. No fx on Xrays. Head CT reveals stable dilated ventricles. Pt seen by neurosurgery (Dr. Queen) on prior adm, who recommends outpatient f/u for potential future [employer] shunt. NPH is in the Ddx as urinary incontinence and gait instability are present. Regarding LE pain and weakness, neuro exam stable since last adm. Visiting Nurse Service to come and give Physical Therapy, pt encouraged to participate. Regarding paroxysmal afib, pt instructed to continue Lopressor. No anticoagulation at home 2/2 hx of falls. Pt evaluated by PT and ambulated 25 ft. Pt declined rehab placement. Pt medically stable for discharge home. Minutes to complete discharge: 35 Discharge Summary Reason For Visit: RECURRENT FALLS/THORACIC AND LUMBOSACRAL NEURITIS Condition: Stable - Instructions Diet, Activity, Other Instructions: You were treated for pain and weakness in your legs. You have a collection of fluid at the site where you had a laminectomy procedure back surgery. At this time there is nothing to do about the fluid collection, besides to continue to monitor it on an outpatient basis. Visiting Nurse Services will come to your home to do Physical Therapy with you to strengthen your legs. Please continue your medications as directed. Please follow a low sodium diet. Resume physical activity as tolerated. Please make an appointment to follow-up with your Primary Care Doctor (Dr. Gibbons) within 1 week of leaving the hospital. Please make an appointment to follow-up with your Neurosurgeon (Dr. Queen) within 2 weeks of leaving the hospital, to re-evaluate for a [employer] shunt. Please return to the hospital if you experience persistent or worsening pain in your legs, if you fall, or for any medical emergency. Referrals: Mynor Gibbons MD [Staff Physician] - 1 Week Nilesh Queen MD, [facility] [Staff Physician] - 2 Weeks Disposition: VNS/HOME HEALTH CARE - Home Medications Comprehensive Discharge Medication List: Ambulatory Orders Multivitamins [Multivit ([facility] Formulary)] 1 tab PO DAILY tab 04/29/17 Acetaminophen [Tylenol] 325 mg PO QID PRN 05/14/17 Alendronate Na [Fosamax (Weekly)] 70 mg PO WEEKLY #4 tab 06/05/17 Carbidopa/Levodopa *Cr* 50/200 [Sinemet *Cr* 50/200 -] 1 combo PO 0700,1200, 1700 #30 tab 06/05/17 Docusate Sodium [Colace -] 200 mg PO HS PRN #30 cap 06/05/17 Ferrous Sulfate [Feosol] 325 mg PO BID@0800,1730 #60 tab 06/05/17 Lidocaine 5% Patch [Lidoderm -] 1 patch TP DAILY #3 patch 06/05/17 Lidocaine Patch Removal [Lidoderm Patch Removal] 1 each MC DAILY@2200 each 09/20 Magnesium Hydrox 2400MG/30Ml [Milk of Magnesia -] 30 ml PO Q8H PRN #90 ml Metoprolol Tartrate [Lopressor -] 50 mg PO TID #90 tablet 06/05/17 Pantoprazole Sodium [Protonix -] 40 mg PO BID #60 tablet.ec 06/05/17 Polyethylene Glycol 3350 [Miralax 119 gm Btl -] 17 gm PO DAILY #1 bottle Pramipexole Dihydrochloride [Mirapex -] 0.5 mg PO 0700,1200,1700 #120 tablet 09/20 Pramipexole Dihydrochloride [Mirapex -] 0.5 mg PO HS #31 tablet 06/05/17 Sennosides [Senna -] 2 tab PO DAILY #30 tablet 06/05/17 Sodium Phosphate/Na Biphos [Fleet Adult Rectal Enema -] 133 ml RC WEEKLY PRN #4 enema 06/05/17 Gabapentin [Neurontin -] 400 mg PO Q8H #90 capsule 06/18/17 Oxycodone HCl 5 mg PO Q12H PRN #6 tablet MDD 2 tablets 06/18/17 This patient is new to me today: No Emergency Visit: Yes ED Registration Date: 06/16/17 Care time: The patient presented to the Emergency Department on the above date and was hospitalized for further evaluation of their emergent condition. Critical Care patient: No - Discharge Referral Referred to [facility] No
== END 2017-06-18 19:33 | disposition home health service (06) | DRG 57 ==
LOC: JER 00:04 → JERBED 04:11 → UNDOADMIN 04:23 → JERBED 04:23 → J5S 05:51
PROVIDERS: ADMIT Internal Medicine; ATTEND Internal Medicine
DX: G91.2 (Idiopathic) normal pressure hydrocephalus (principal); I50.20 Unspecified systolic (congestive) heart failure; G20 Parkinson's disease; M54.17 Radiculopathy, lumbosacral region; R32 Unspecified urinary incontinence; R26.81 Unsteadiness on feet; K59.00 Constipation, unspecified; I48.0 Paroxysmal atrial fibrillation; E78.5 Hyperlipidemia, unspecified; I11.0 Hypertensive heart disease with heart failure
CPT/HCPCS: 36415; 70450-TC; 71010-TC; 73523-TC; 80048; 80053; 83735; 84100; 85025; 85027; 85610; 86850; 86900; 86901; 93005; 93010; 93971-TC; 97116-GP; 97161-GP; 99282-25; 99284-25; J1644

== ENCOUNTER 2017-07-06 13:08 | Inpatient (IN) | payer OTHER, BC ==
[2017-07-06 13:44] VITALS: BMI 22.1
--- NOTE | 2017-07-06 15:16 | PDOC ---
History of Present Illness <Rahul Hawk - Last Filed: 07/06/17 18:33> - General History Source: Patient Exam Limitations: No Limitations - History of Present Illness Initial Comments: 07/06/17 16:38 72 M with h/o chronic back pain s/p laminectomy complicated by left leg weakness and numbness, afib (not on anticoagulation), parkinson's, HTN, and HLD , presenting with acute on chronic LLE pain. Pt states that since his laminectomy several weeks ago, he has been having severe pain in his left leg, limiting his mobility. He denies any acute changes today but states that the pain has been persistent and has not improved. He denies any recent falls or trauma. Denies any new weakness or numbness. He states that he wears a diaper at baseline due to his poor mobility but denies incontinence or difficulty controlling his urine or stool. Pt was previously enrolled in PT but stopped going due to financial limitations. Patient recently left his rehab home at [facility] after one day due to perceived inefficiency/inefficacy of treatment. <Ming Stark - Last Filed: 07/06/17 18:49> - General Chief Complaint: Pain, Acute Stated Complaint: LEG PAIN Time Seen by Provider: 07/06/17 13:12 Past History <Rahul Hawk - Last Filed: 07/06/17 18:33> - Past Medical History Anemia: No Asthma: No Cancer: No Cardiac Disorders: Yes (HTN, HLD, Paroxysmal AFib) CVA: (NPH) COPD: Yes CHF: No DVT: No Dementia: No Diabetes: No GI Disorders: Yes (Diverticulitis, IBS, hemorrhoids) Disorders: Yes (Englarged Prostate) HTN: Yes Hypercholesterolemia: Yes Kidney Stones: Yes (s/p Right UVJ Stent placement) Liver Disease: No Psychiatric Problems: Yes (Depression/Anxiety) Seizures: No Thyroid Disease: No - Surgical History Abdominal Surgery: Yes (Hernia Repair) Appendectomy: No Cardiac Surgery: No Cholecystectomy: No GI Surgery: Yes (HEMORRHOIDS/ANAL ULCER, RIGHT UVJ STENT) Lung Surgery: No Neurologic Surgery: No Orthopedic Surgery: Yes (Lumbar Back Surgery x2) - Immunization History Immunization Up to Date: Yes - Suicide/Smoking/Psychosocial Hx Smoking Status: No Smoking History: Former smoker Years of Tobacco Use: 20 Have you smoked in the past 12 months: No Number of Cigarettes Smoked Daily: 0 If you are a former smoker, when did you quit?: 1970 Information on smoking cessation initiated: No 'Breaking Loose' booklet given: 09/08/13 Hx Alcohol Use: No Drug/Substance Use Hx: No Substance Use Type: None Hx Substance Use Treatment: No <Ming Stark - Last Filed: 07/06/17 18:49> - Past Medical History Allergies/Adverse Reactions: Allergies Allergy/AdvReac Type Severity Reaction Status Date / Time pregabalin [From Lyrica] Allergy Mild Verified 06/15/17 10:03 pravastatin sodium Allergy Unknown Verified 06/15/17 10:03 [From Pravachol] lactose Allergy Nausea Verified 06/15/17 10:03 morphine Allergy Verified 06/15/17 10:03 peanut Allergy Verified 06/15/17 10:03 Penicillins Allergy Verified 06/15/17 10:03 Home Medications: Ambulatory Orders Multivitamins [Multivit ([facility] Formul[facility])] 1 tab PO DAILY tab 04/29/17 Acetaminophen [Tylenol] 325 mg PO QID PRN 05/14/17 Alendronate Na [Fosamax (Weekly)] 70 mg PO WEEKLY #4 tab 06/05/17 Carbidopa/Levodopa *Cr* 50/200 [Sinemet *Cr* 50/200 -] 1 combo PO 0700,1200, 1700 #30 tab 06/05/17 Docusate Sodium [Colace -] 200 mg PO HS PRN #30 cap 06/05/17 Ferrous Sulfate [Feosol] 325 mg PO BID@0800,1730 #60 tab 06/05/17 Lidocaine 5% Patch [Lidoderm -] 1 patch TP DAILY #3 patch 06/05/17 Lidocaine Patch Removal [Lidoderm Patch Removal] 1 each MC DAILY@2200 each 09/20 Magnesium Hydrox 2400MG/30Ml [Milk of Magnesia -] 30 ml PO Q8H PRN #90 ml Metoprolol Tartrate [Lopressor -] 50 mg PO TID #90 tablet 06/05/17 Pantoprazole Sodium [Protonix -] 40 mg PO BID #60 tablet.ec 06/05/17 Polyethylene Glycol 3350 [Miralax 119 gm Btl -] 17 gm PO DAILY #1 bottle Pramipexole Dihydrochloride [Mirapex -] 0.5 mg PO 0700,1200,1700 #120 tablet 09/20 Pramipexole Dihydrochloride [Mirapex -] 0.5 mg PO HS #31 tablet 06/05/17 Sennosides [Senna -] 2 tab PO DAILY #30 tablet 06/05/17 Sodium Phosphate/Na Biphos [Fleet Adult Rectal Enema -] 133 ml RC WEEKLY PRN #4 enema 06/05/17 Gabapentin [Neurontin -] 400 mg PO Q8H #90 capsule 06/18/17 Oxycodone HCl 5 mg PO Q12H PRN #6 tablet MDD 2 tablets 06/18/17 Review of Systems - Review of Systems Able to Perform ROS?: Yes Is the patient limited Uzbek proficient: No Constitutional: No: Symptoms Reported HEENTM: No: Symptoms Reported Respiratory: No: Symptoms reported Cardiac (ROS): No: Symptoms Reported ABD/GI: No: Symptoms Reported : No: Symptoms Reported Musculoskeletal: Yes: Muscle Pain, Muscle Weakness. No: Symptoms Reported Neurological: Yes: Numbness, Pre-Existing Deficit Endocrine: No: Symptoms Reported Hematologic/Lymphatic: No: Symptoms Reported <Ming Stark - Last Filed: 07/06/17 18:49> *Physical Exam - Vital Signs Last Vital Signs Temp Pulse Resp BP Pulse Ox 99.1 F 20 135/91 95 07/06/17 13:34 07/06/17 13:34 07/06/17 13:34 07/06/17 13:58 <Rahul Hawk - Last Filed: 07/06/17 18:33> - Vital Signs Last Vital Signs Temp Pulse Resp BP Pulse Ox 99.1 F 20 135/91 95 07/06/17 13:34 07/06/17 13:34 07/06/17 13:34 07/06/17 13:58 - Physical Exam General Appearance: Yes: Nourished, Disheveled, Cachetic HEENT: positive: EOMI, Normal ENT Inspection Neck: negative: Tender Respiratory/Chest: positive: Lungs Clear. negative: Chest Tender Cardiovascular: positive: Regular Rhythm, Regular Rate, S1, S2 Gastrointestinal/Abdominal: positive: Normal Bowel Sounds, Protuberent Extremity: positive: Other (left leg covered with lidocaine patches, ) <Ming Stark - Last Filed: 07/06/17 18:49> ED Treatment Course - LABORATORY CBC & Chemistry Diagram: 07/06/17 15:14 07/06/17 15:14 - ADDITIONAL ORDERS Additional order review: Laboratory Results 07/06/17 07/06/17 18:00 15:14 Sodium 141 Potassium 4.9 Chloride 109 H Carbon Dioxide 23 Anion Gap 9 BUN 40 H D Creatinine 1.0 Creat Clearance w eGFR > 60 Random Glucose 91 Calcium 8.9 Total Bilirubin 0.3 D AST 20 D ALT 30 Alkaline Phosphatase 78 Total Protein 6.8 Albumin 3.8 Urine Color Yellow Urine Appearance Clear Urine pH 5.0 Ur Specific [place] 1.025 Urine Protein Negative Urine Glucose (UA) Negative Urine Ketones Negative Urine Blood Negative Urine Nitrite Negative Urine Bilirubin Negative Urine Urobilinogen 2.0 07/06/17 15:14 RBC 4.26 MCV 99.1 H MCHC 34.1 RDW 15.4 MPV 8.7 Neutrophils % 73.8 Lymphocytes % 17.8 D Monocytes % 7.0 Eosinophils % 0.4 Basophils % 1.0 - Medications Given in the ED: ED Medications Discontinued Medications Generic Name Dose Route Start Last Admin Trade Name Freq PRN Reason Stop Dose Admin Sodium Chloride 1,000 mls @ 1,000 mls/hr 07/06/17 16:31 07/06/17 16:40 Normal Saline - IV 07/06/17 17:30 1,000 mls/hr ASDIR STA Administration Ondansetron HCl 4 mg 07/06/17 16:31 07/06/17 16:40 Zofran Injection IVPUSH 07/06/17 16:32 4 mg ONCE ONE Administration <Rahul Hawk - Last Filed: 07/06/17 18:33> - LABORATORY CBC & Chemistry Diagram: 07/06/17 15:14 07/06/17 15:14 - RADIOLOGY Radiology Studies Ordered: Category Date Time Status CXRPORT [CHEST X-RAY PORTABLE*] [RAD] Stat Radiology 07/06/17 14:41 Completed <Ming Stark - Last Filed: 07/06/17 18:49> Medical Decision Making - Medical Decision Making 07/06/17 18:[address] Mondragon who will do the nerve block on the patient TOMORROW as pt would be OBSERVATION- FDG <Rahul Hawk - Last Filed: 07/06/17 18:33> - Medical Decision Making 07/06/17 15:15 72M with hx of spinal fusion 07/06/17 15:[address] Oneil who said that all necessary surgeries were done and that what he really needed was nerve block from Dr. Mondragon. Dr Mondragon was called and agreed to perform nerve block on patient in patient on Friday morning. 07/06/17 16:41 07/06/17 18:23 UA pending, negative 07/06/17 18:46 Dr. Mondragon was called again and agreed to perform nerve block procedure tomorrow. Patient admitted to [facility] as per Dr. Billy. <Ming tSark - Last Filed: 07/06/17 18:49> *DC/Admit/Observation/Transfer <Rahul Hawk - Last Filed: 07/06/17 18:33> - Discharge Dispostion Admit: Yes <Ming Stark - Last Filed: 07/06/17 18:49> Diagnosis at time of Disposition: Thoracic or lumbosacral neuritis or radiculitis, Weakness of left lower extremity, Pain management
[2017-07-06 15:18] LABS: EOSINOPHIL 0.4 % (0-4.5); MCH 33.8 pg (25.7-33.7); MCHC 34.1 g/dl (32.0-35.9); MEAN CELL VOLUME 99.1 fl (80-96); MEAN PLT VOLUME 8.7 fl (7.5-11.1); NEUTROPHILS 73.8 % (42.8-82.8); PLATELET COUNT 254 K/MM3 (134-434); RDW 15.4 % (11.9-15.9); WHITE BLOOD COUNT 10.9 K/mm3 (4.0-10.0)
[2017-07-06 16:05] LABS: ALBUMIN 3.8 g/dl (3.4-5.0); ANION GAP 9 (8-16); BILIRUBIN,TOTAL 0.3 mg/dL (0.2-1.0); CALCIUM 8.9 mg/dL (8.5-10.1); CO2 23 mmol/L (21-32); GLUCOSE,RANDOM 91 mg/dL (74-106); SGPT/ALT 30 U/L (12-78); TOT PROT 6.8 g/dl (6.4-8.2)
[2017-07-06 16:06] LABS: ALK PHOS 78 U/L (45-117)
[2017-07-06 16:15] LABS: SGOT/AST 20 U/L (15-37)
[2017-07-06] MEDS ORDERED: SODIUM CHLORIDE 1,000 ML IV STA (16:31)
[2017-07-06] MEDS ORDERED: ONDANSETRON 4 MG/2 ML VIAL IVPUSH ONE (16:31)
[2017-07-06] MEDS ORDERED: ONDANSETRON 4 MG/2 ML VIAL ONE (16:32)
[2017-07-06 18:19] LABS: URINE APPEARANCE CLEAR; URINE BILIRUBIN NEGATIVE (NEGATIVE); URINE BLOOD NEGATIVE (NEGATIVE); URINE COLOR YELLOW; URINE GLUCOSE (UA) NEGATIVE (NEGATIVE); URINE KETONE NEGATIVE (NEGATIVE); URINE NITRITE NEGATIVE (NEGATIVE); URINE PROTEIN NEGATIVE (NEGATIVE)
[2017-07-06] MEDS ORDERED: ACETAMINOPHEN 1000 MG/100 ML VIAL (NON FORMULARY) IVPB ONE (18:21)
[2017-07-06] MEDS ORDERED: ACETAMINOPHEN INJECTION 100 ML IVPB ONE (18:44)
[2017-07-06 23:18] LABS: URINE LEUK ESTERASE TRACE (NEGATIVE)
[2017-07-06 23:27] LABS: URINE RBC 0-2 /hpf (0-3)
--- NOTE | 2017-07-06 23:48 | HP ---
HISTORY OF PRESENT ILLNESS: 72 M with h/o hospitalizations for his chronic back pain s/p laminectomy complicated by subjective left leg pain, afib (not on anticoagulation), parkinson's, HTN, and HLD, presenting with "acute" on chronic LLE pain. Pt was previously sent to rehab home at [facility], however left AMA after one day due to perceived lack of efficacy with rehab. Pt states as previously that this is chronic since his laminectomy multiple weeks ago and how he wants to "chop his leg off with a machete." ER course was notable for: (1)Dr. Torres contacted who stated from his standpoint nothing more could be done with suggestion of Dr. Mondragon nerve block procedure (2)"Dr. Mondragon was called and agreed to perform nerve block on patient in patient tomorrow morning" per ED note PAST MEDICAL HISTORY: HTN HLD Paroxysmal AFib COPD Diverticulosis and diverticulitis previously IBS Hemorrhoids Enlarged Prostate Nephrolithiasis s/p R UVJ stent Depression/Anxiety PAST SURGICAL HISTORY: Hernia Repair R UVJ stent placement Hemorrhoidectomy Lumbar back surgery (x2; most recent 04/21/17 with Laminectomy of T12-S2) Social History: Smoking: Former Smoker for 20 years; quit in Alcohol: Denies Drugs: Denies Family History: Father - Lung Ca of unknown type Allergies pregabalin [From Lyrica] Allergy (Mild, Verified 06/15/17 10:03) pravastatin sodium [From Pravachol] Allergy (Unknown, Verified 06/15/17 10:03) however, pt takes atorvastatin 10 mg daily at home, reportedly without side effects lactose Allergy (Verified 06/15/17 10:03) Nausea morphine Allergy (Verified 06/15/17 10:03) unknown peanut Allergy (Verified 06/15/17 10:03) Penicillins Allergy (Verified 06/15/17 10:03) unknown affect HOME MEDICATIONS: Home Medications Medication Instructions Recorded Ferrous Sulfate [Feosol] 325 mg PO BID@0800,1730 #60 tab 06/05/17 Lidocaine Patch Removal [Lidoderm 1 each MC DAILY@2200 each 06/05/17 Patch Removal] Pantoprazole Sodium [Protonix -] 40 mg PO BID #60 tablet.ec 06/05/17 Gabapentin [Neurontin -] 100 mg PO Q8H 07/06/17 Lisinopril [Prinivil -] 20 mg PO BID 07/06/17 Oxycodone HCl 5 mg PO QID PRN MDD 2 tablets 07/06/17 REVIEW OF SYSTEMS CONSTITUTIONAL: Absent: fever, chills, diaphoresis, generalized weakness, malaise, loss of appetite, weight change HEENT: Absent: rhinorrhea, nasal congestion, throat pain, throat swelling, difficulty swallowing, mouth swelling, ear pain, eye pain, visual changes CARDIOVASCULAR: Absent: chest pain, syncope, palpitations, irregular heart rate, lightheadedness , peripheral edema RESPIRATORY: Absent: cough, shortness of breath, dyspnea with exertion, orthopnea, wheezing, stridor, hemoptysis GASTROINTESTINAL: Absent: abdominal pain, abdominal distension, nausea, vomiting, diarrhea, constipation, melena, hematochezia GENITOURINARY: Absent: dysuria, frequency, urgency, hesitancy, hematuria, flank pain, genital pain MUSCULOSKELETAL: Absent: joint swelling, neck pain SKIN: Absent: rash, itching, pallor HEMATOLOGIC/IMMUNOLOGIC: Absent: easy bleeding, easy bruising, lymphadenopathy, frequent infections ENDOCRINE: Absent: unexplained weight gain, unexplained weight loss, heat intolerance, cold intolerance NEUROLOGIC: Present: focal weakness in b/l LE/paresthesias Absent: headache, , dizziness, seizure, mental status changes, bladder or bowel incontinence PSYCHIATRIC: Absent: anxiety, depression, suicidal or homicidal ideation, hallucinations. PHYSICAL EXAMINATION Vital Signs - 24 hr 07/06/17 07/06/17 07/06/17 13:34 13:58 20:17 Temperature 99.1 F 98.1 F Pulse Rate [ 78 Apical] Respiratory 20 20 Rate Blood Pressure 135/91 Blood Pressure 128/86 [Right Arm] O2 Sat by Pulse 95 95 98 Oximetry (%) 07/06/17 22:13 Temperature 98.1 F Pulse Rate [ 80 Apical] Respiratory 18 Rate Blood Pressure Blood Pressure 125/82 [Right Arm] O2 Sat by Pulse Oximetry (%) GENERAL: NAD, Awake, alert, and fully oriented HEENT: AT/NC, EOMI, MANJIT, moist mucosa LUNGS: CTA bilaterally. No wheezes, rhonchi, rales. No accessory muscle use. HEART: RRR, normal S1 and S2 without murmur ABDOMEN: Soft, nontender, nondistended, hypoactive bowel sounds, no guarding, no rebound MUSCULOSKELETAL: No CVA tenderness. EXTREMITIES: 2+ DP pulses, cap refill <2sec. No cyanosis. No peripheral edema. See neuro NEUROLOGICAL: Nonfocal exam. Strength of LE limited due to subjective pain. Normal speech. SKIN: Warm, no rashes or lesions noted Laboratory Results - last 24 hr 07/06/17 07/06/17 07/06/17 15:14 15:14 18:00 WBC 10.9 H D RBC 4.26 Hgb 14.4 D Hct 42.2 D MCV 99.1 H MCH 33.8 H MCHC 34.1 RDW 15.4 Plt Count 254 D MPV 8.7 Neutrophils % 73.8 Lymphocytes % 17.8 D Monocytes % 7.0 Eosinophils % 0.4 Basophils % 1.0 Sodium 141 Potassium 4.9 Chloride 109 H Carbon Dioxide 23 Anion Gap 9 BUN 40 H D Creatinine 1.0 Creat Clearance w eGFR > 60 Random Glucose 91 Calcium 8.9 Total Bilirubin 0.3 D AST 20 D ALT 30 Alkaline Phosphatase 78 Total Protein 6.8 Albumin 3.8 Urine Color Yellow Urine Appearance Clear Urine pH 5.0 Ur Specific [place] 1.025 Urine Protein Negative Urine Glucose (UA) Negative Urine Ketones Negative Urine Blood Negative Urine Nitrite Negative Urine Bilirubin Negative Urine Urobilinogen 2.0 Ur Leukocyte Esterase Trace H Urine RBC 0-2 Urine WBC 5-10 Ur Epithelial Cells 0-3 ASSESSMENT/PLAN: 72yo M with history of recent hospitalizations and leaving rehab AMA here for evaluation of Dr. Mondragon for possible epidural nerve block procedure 1) LE pain --Toradol IVP 30mg q6h for pain; Cr 1.0 WNL --NPO for now; unsure of procedure time; will sign out to day team --Dr. Mondragon to see in morning for ? epidural nerve block procedure --Coags and Type/Screen for AM 2) HTN --Continue home Lisinopril 20mg BID PO --Controlled currently at 128/86 3) Paroxysmal A. Fib --Currently in regular rate with HR 78bpm --Monitor for irregular conversion on physical exam --Continue home Lopressor 50mg PO TID seen on previous d/c summary (holding parameters in place) 4) Parkinson's --Stable currently --Will resume home Sinemet 50/200 TID PO combo pill FEN: Fluids: None needed currently Electrolyte abnormalities: Mild hyperchloremia; stable Nutrition: NPO except for meds for now due to unknown possibility of procedure PPX: DVT - Unknown procedure time; will hold heparin for now until known GI - Not indicated, however pt is taking home protonix 40mg PO Dispo: [facility] Case discussed with medical team Jett Cuevas DO - Internal Medicine PGY-1 Visit type - Emergency Visit Emergency Visit: No - New Patient This patient is new to me today: Yes Date on this admission: 07/07/17 - Critical Care Critical Care patient: No
--- NOTE | 2017-07-06 23:59 | PN ---
Teaching Attending Note Name of Resident: Jett Cuevas ATTENDING PHYSICIAN STATEMENT I saw and evaluated the patient. I reviewed the resident's note and discussed the case with the resident. I agree with the resident's findings and plan as documented. SUBJECTIVE: 72 W hx. of chronic back pain, p- afib (not on A/c), hld, htn, OA, Parkinson's, hx of laminectomy and fusion back sx, systolic CHF, LBBB, fluid collection in lumbar area. Presents with pain in Left leg, recently signed out of rehab at [facility], due to percieved ineffective treatment. ER spoke to Dr. Mondragon who will do a nerve block. OBJECTIVE: Physical: VS: Vital Signs Period Temp Pulse Resp BP Sys/Suazo Pulse Ox Last 24 Hr 98.1 F-99.1 F 78-80 18-20 125-135/82-91 95-98 GEN: NAD, Resting in bed HEENT: NCAT, PERRL, throat without erythema or exudates CARD: RRR S1, S2 RESP: CTAB ABD: BSx4, NTD to palaption EXT: TTP L. Calf, - C/C/E CBCD WBC 10.9 K/mm3 (4.0-10.0) H D 07/06/17 15:14 RBC 4.26 M/mm3 (4.00-5.60) 07/06/17 15:14 Hgb 14.4 GM/dL (11.7-16.9) D 07/06/17 15:14 Hct 42.2 % (35.4-49) D 07/06/17 15:14 MCV 99.1 fl (80-96) H 07/06/17 15:14 MCHC 34.1 g/dl (32.0-35.9) 07/06/17 15:14 RDW 15.4 % (11.9-15.9) 07/06/17 15:14 Plt Count 254 K/MM3 (134-434) D 07/06/17 15:14 MPV 8.7 fl (7.5-11.1) 07/06/17 15:14 CMP Sodium 141 mmol/L (136-145) 07/06/17 15:14 Potassium 4.9 mmol/L (3.5-5.1) 07/06/17 15:14 Chloride 109 mmol/L (98-107) H 07/06/17 15:14 Carbon Dioxide 23 mmol/L (21-32) 07/06/17 15:14 Anion Gap 9 (8-16) 07/06/17 15:14 BUN 40 mg/dL (7-18) H D 07/06/17 15:14 Creatinine 1.0 mg/dL (0.7-1.3) 07/06/17 15:14 Creat Clearance w eGFR > 60 (>60) 07/06/17 15:14 Random Glucose 91 mg/dL (74-106) 07/06/17 15:14 Calcium 8.9 mg/dL (8.5-10.1) 07/06/17 15:14 Total Bilirubin 0.3 mg/dL (0.2-1.0) D 07/06/17 15:14 AST 20 U/L (15-37) D 07/06/17 15:14 ALT 30 U/L (12-78) 07/06/17 15:14 Alkaline Phosphatase 78 U/L (45-117) 07/06/17 15:14 Total Protein 6.8 g/dl (6.4-8.2) 07/06/17 15:14 Albumin 3.8 g/dl (3.4-5.0) 07/06/17 15:14 Ambulatory Orders Ferrous Sulfate [Feosol] 325 mg PO BID@0800,1730 #60 tab 06/05/17 Lidocaine Patch Removal [Lidoderm Patch Removal] 1 each MC DAILY@2200 each 09/20 Pantoprazole Sodium [Protonix -] 40 mg PO BID #60 tablet.ec 06/05/17 Gabapentin [Neurontin -] 100 mg PO Q8H 07/06/17 Lisinopril [Prinivil -] 20 mg PO BID 07/06/17 Oxycodone HCl 5 mg PO QID PRN MDD 2 tablets 07/06/17 ASSESSMENT AND PLAN: 72 M with pmhx of afib, hld, chronic back pain s/p laminectomy and fusion sx., lumbar fluid collection who presents with LLE pain 1.) LLE Pain - Nerve block with Dr. Mondragon - Type & Screen - Coags - Pain Control- ALLERGIC to morphine 2.) P Afib - C/W home meds 3.) Parkinon's - C/W Sinemet 4.) HTN - C/W home meds Rest as per resident note Admit to Obs .
[2017-07-07] MEDS ORDERED: KETOROLAC TROMETHAMINE 30 MG/1 ML VIAL IVPUSH PRN (00:18)
[2017-07-07 07:20] LABS: MCH 33.3 pg (25.7-33.7); MCHC 33.8 g/dl (32.0-35.9); MEAN CELL VOLUME 98.6 fl (80-96); MEAN PLT VOLUME 8.5 fl (7.5-11.1); PLATELET COUNT 223 K/MM3 (134-434); RDW 15.2 % (11.9-15.9); WHITE BLOOD COUNT 8.7 K/mm3 (4.0-10.0)
[2017-07-07 07:33] LABS: INR 1.06 (0.82-1.09)
[2017-07-07 07:49] LABS: ANION GAP 8 (8-16); CALCIUM 8.3 mg/dL (8.5-10.1); CO2 24 mmol/L (21-32); GLUCOSE,RANDOM 93 mg/dL (74-106)
[2017-07-07 07:51] LABS: CREATININE 1.1 mg/dL (0.7-1.3)
--- NOTE | 2017-07-07 07:56 | PN ---
Physical Exam: SUBJECTIVE: Patient seen and examined. States LLE pain has decreasde from 10/10 to 7/10. Now is bearable but awaiting surgery. No CP, no SOB, no fevers, no chills. OBJECTIVE: Vital Signs Period Temp Pulse Resp BP Sys/Suazo Pulse Ox Last 24 Hr 98.1 F-99.1 F 72-80 18-20 125-149/82-92 95-98 GEN: AAOx3, No acute distress, but states his LLE pain is 7/10 HEENT: PERRLA, EOMi CV: RRR, S1, S2 LUNG: CTABL EXT: No erythema, no edema NEURO: L side - 3/5 hip flexion, knee flexion, ankle dosiflexion and plantar flexion ; sensation decreased R side - 4/5 hip flexion, knee flexion, ankle dorsiflexion and plantar flexion MSK: No focal spinal tenderness Home Medication List Medication Instructions Recorded Confirmed Type Gabapentin [Neurontin -] 100 mg PO Q8H 07/06/17 07/06/17 History Lisinopril [Prinivil -] 20 mg PO BID 07/06/17 07/06/17 History Oxycodone HCl 5 mg PO QID PRN MDD 2 tablets 07/06/17 07/06/17 History Active Medications Generic Name Dose Route Start Last Admin Trade Name Freq PRN Reason Stop Dose Admin Acetaminophen 650 mg 07/07/17 11:49 07/07/17 12:08 Tylenol - PO 650 mg Q4H PRN Administration FEVER OR PAIN Carbidopa/Levodopa 1 combo 07/07/17 08:30 07/07/17 09:30 Sinemet *Cr* 50/200 - PO 1 combo TID SIENA Administration Lisinopril 20 mg 07/07/17 10:00 07/07/17 10:26 Prinivil PO 20 mg BID SIENA Administration Metoprolol Tartrate 50 mg 07/07/17 10:00 07/07/17 10:26 Lopressor - PO 50 mg TID SIENA Administration Pantoprazole Sodium 40 mg 07/07/17 10:00 07/07/17 10:26 Protonix - PO 40 mg BID SIENA Administration ASSESSMENT/PLAN: 72yo M with PMHx of Multiple back surgeries, who has been having chronic back pain since latest laminectomy/fusion on Apr 2017. He presents to the ER with worsening LLE neuropathic pain. # LLE Pain - Likely neuropathic, happened since latest back surgery in Apr 2017. Seen multiple times by Dr Queen who states no further neurosurgical intervention necessary. Will undergo epidural nerve block by Dr. Mondragon (pain management). NPO since midnight. T&S, Coags ordered. Percocet for today. Morphine allergy noted, but patient takes Oxy at home # HTN - Continue home Lisinopril 20mg BID # Parkinsons - Continue SInemet 50/200 TID # Hx of Afib - No anticoagulation due to falls, continue Metoprolol 50 TID # FEN - No IVF, elec WNL, Sodium controlled diet # PPx - No AC due to risk of fakks # DIspo - D/c today after epidural nerve block. to d/w Dr Mariajose Carrera MD - PGY1 Internal Medicine Visit type - Emergency Visit Emergency Visit: No - New Patient This patient is new to me today: No - Critical Care Critical Care patient: No - Discharge Referral Referred to [facility] No
[2017-07-07] MEDS: LISINOPRIL 20 MG TABLET (FP) PO SCH ×2 (10:26→22:55)
[2017-07-07] MEDS: PANTOPRAZOLE 40 MG TABLET (FP) PO SCH ×2 (10:26→22:55)
[2017-07-07] MEDS: METOPROLOL TARTRATE 50 MG TABLET (FP) PO SCH ×3 (10:26→22:55)
[2017-07-07] MEDS ORDERED: ACETAMINOPHEN 325 MG TABLET (FP) PO PRN (11:49)
--- NOTE | 2017-07-07 12:53 | PN ---
Teaching Attending Note Name of Resident: Edwin Carrera ATTENDING PHYSICIAN STATEMENT I saw and evaluated the patient. I reviewed the resident's note and discussed the case with the resident. I agree with the resident's findings and plan as documented. SUBJECTIVE:c/o severe LLE pain and numbness. unable to walk due to the pain. denies CP, SOB, fever, chills, N/V/C/D OBJECTIVE: Last Vital Signs Temp Pulse Resp BP Pulse Ox 98.3 F 70 18 150/82 98 07/07/17 09:00 07/07/17 09:00 07/07/17 09:00 07/07/17 09:00 07/07/17 00:29 General NAD CV S1 S2 + Lungs CTA B/L no wheezing/rales/rhonchi Extremities good ROM of LLE, decreased sensation LLE. limited ROM RLE due to pain ASSESSMENT AND PLAN: 72 M with pmhx of afib, hld, chronic back pain s/p laminectomy and fusion sx., lumbar fluid collection who presents with LLE pain 1. Intractable LLE pain- s/p lamincetomy and fusion sx earlier this year. no response. ER spoke with neurosurgeon whom stated only option is nerve block at this time. pt is scheduled for nerve block today with pain management. pt can be d/c home post procedure. Has no YEN days left to use at this time and pt is unwilling to go.
[2017-07-07] MEDS ORDERED: oxyCODONE HCL 5 MG TABLET ONE (14:29)
[2017-07-07] MEDS: oxyCODONE HCL 5 MG TABLET PO PRN (14:31)
[2017-07-07] MEDS: ACETAMINOPHEN 325 MG TABLET (FP) PO PRN (14:32)
--- NOTE | 2017-07-07 18:27 | CONSULT ---
Consult Consult Specialty:: Pain Management - History of Present Illness Chief Complaint: LBP with Left leg pain s/p Lumbar fusion. History of Present Illness: 72 yr old male with h/o chronic LBP had multilevel Lumbar fusion c/o left leg pain 5-10/10 radiating to left LE with Numbness and tingling difficulty in ambulation and doing ADLs. 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 Cardio/Vascular: Yes: HTN, Hyperlipdemia, Other Pulmonary: Yes: COPD Gastrointestinal: Yes: Constipation, Hiatal Hernia, Irritable Bowel Disease Renal/: Yes: Renal Inusuff, BPH, Renal Calculi (s/p stent placement) Infectious Disease: Yes: Other Psych: Yes: Anxiety, Depression Musculoskeletal: Yes: Chronic low back pain, Osteoarthritis - Past Surgical History Past Surgical History: Yes: Hernia Repair, Laminectomy Additional Surgical History: Lumbar fusion - Alcohol/Substance Use Hx Alcohol Use: No History of Substance Use: reports: None - Smoking History Smoking history: Former smoker Have you smoked in the past 12 months: No Aproximately how many cigarettes per day: 0 If you are a former smoker, when did you quit?: 1969 - Social History Usual Living Arrangement: Alone 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 Travel: No Home Medications - Allergies Allergies/Adverse Reactions: Allergies Allergy/AdvReac Type Severity Reaction Status Date / Time pregabalin [From Lyrica] Allergy Mild Verified 06/15/17 10:03 pravastatin sodium Allergy Unknown Verified 06/15/17 10:03 [From Pravachol] lactose Allergy Nausea Verified 06/15/17 10:03 morphine Allergy Verified 06/15/17 10:03 peanut Allergy Verified 06/15/17 10:03 Penicillins Allergy Verified 06/15/17 10:03 - Home Medications Home Medications: Ambulatory Orders Ferrous Sulfate [Feosol] 325 mg PO BID@0800,1730 #60 tab 06/05/17 Lidocaine Patch Removal [Lidoderm Patch Removal] 1 each MC DAILY@2200 each 09/20 Pantoprazole Sodium [Protonix -] 40 mg PO BID #60 tablet.ec 06/05/17 Gabapentin [Neurontin -] 300 mg PO Q8H 07/06/17 Lisinopril [Prinivil -] 20 mg PO BID 07/06/17 Alendronate Na [Fosamax (Weekly)] 70 mg PO WEEKLY 07/07/17 Carbidopa/Levodopa *Cr* 50/200 [Sinemet *Cr* 50/200 -] 1 tab PO TID@0700,1200, 1700 07/07/17 Diltiazem [Cardizem -] 120 mg PO DAILY 07/07/17 Lidocaine 5% Patch [Lidoderm -] 1 adh.patch TD DAILY 07/07/17 Metoprolol Tartrate [Lopressor -] 50 mg PO TID 07/07/17 Oxycodone HCl/Acetaminophen [Percocet 5-325 mg Tablet] 1 tab PO Q6H PRN Polyethylene Glycol 3350 [Miralax (For Bowel Prep) -] 17 gm PO QID 07/07/17 Pramipexole Di-HCl [Pramipexole Dihydrochloride] 0.5 mg PO QID 07/07/17 Family Disease History - Family Disease History Family Disease History: CA: Father (lung ), Mother (gall bladder ), Other: Sister (alive: healthy) Review of Systems - Review of Systems Constitutional: reports: No Symptoms Eyes: reports: No Symptoms HENT: reports: No Symptoms Neck: reports: No Symptoms Cardiovascular: reports: No Symptoms Respiratory: reports: No Symptoms Gastrointestinal: reports: No Symptoms Genitourinary: reports: Incontinence Musculoskeletal: reports: Back Pain, Decreased ROM, Extremity Pain, Muscle Pain Psychiatric: reports: No Symptoms Pain Intensity: 5 Physical Exam Vital Signs: Vital Signs Temperature 97.9 F 07/07/17 18:00 Pulse Rate 61 07/07/17 18:00 Respiratory Rate 18 07/07/17 18:00 Blood Pressure 149/74 07/07/17 18:00 O2 Sat by Pulse Oximetry (%) 97 07/07/17 15:00 Constitutional: Yes: Calm Eyes: Yes: WNL HENT: Yes: WNL Neck: Yes: WNL Gastrointestinal: Yes: Soft Musculoskeletal: Yes: Back Pain, Muscle Pain, Muscle Weakness, Other (calf muscle atrophy) Extremities: Yes: WNL Edema: No Neurological: Yes: Alert, Oriented, Numbness, Weakness, Other (decrease sensation in Left L5 /S1 distribution on left weakenss of left LE , mild foot drop on left) Labs: CBC, BMP 07/07/17 05:35 07/07/17 05:35 Imaging - Results MRI: Report Reviewed (MRI done in May 2017) Problem List - Problems (1) Back pain with left-sided radiculopathy Assessment/Plan: Discussed in detail and answered all the question Lumbar epidural in AM NPO from Midnight . Code(s): M54.10 - RADICULOPATHY, SITE UNSPECIFIED (2) Weakness of left lower extremity Assessment/Plan: Physical therapy Bed mobility , ambulation with assist. Code(s): R29.898 - OT SYMPTOMS AND SIGNS INVOLVING THE MUSCULOSKELETAL SYSTEM
[2017-07-07] MEDS ORDERED: LIDOCAINE 5% TOPICAL PATCH TP PRN (20:05)
[2017-07-07] MEDS: LIDOCAINE PATCH REMOVAL MC SCH (22:55)
[2017-07-07] MEDS ORDERED: KETOROLAC TROMETHAMINE 30 MG/1 ML VIAL IVPUSH ONE (23:30)
[2017-07-08] MEDS: ACETAMINOPHEN 325 MG TABLET (FP) PO PRN ×3 (00:14→21:38)
[2017-07-08] MEDS: oxyCODONE HCL 5 MG TABLET PO PRN ×3 (00:15→21:37)
[2017-07-08] MEDS: METOPROLOL TARTRATE 50 MG TABLET (FP) PO SCH ×4 (06:05→21:37)
[2017-07-08] MEDS: LISINOPRIL 20 MG TABLET (FP) PO SCH ×2 (10:55→21:37)
[2017-07-08] MEDS: PANTOPRAZOLE 40 MG TABLET (FP) PO SCH ×2 (10:55→21:36)
[2017-07-08] MEDS: dilTIAZem HCL 60 MG TABLET (FP) PO SCH (10:55)
--- NOTE | 2017-07-08 11:45 | CON.PSY ---
Psychiatry Consult Chief Complaint: Patient known to me for 30yrs, has history of anxiety and depression but no self damaging behavior. patient says, i was kidding with the nursed when i asked for that medicine because i was in pain. I want my injection. Symptoms: reports: Anxiety - Previous Psychiatric Treatment Outpatient: More than 6 mos ago - Previous Substance Abuse Treatment Outpatient: None Inpatient: None - Reason for Previous Treatment Reason for Previous Treatment: Major Depression - Current Medications Current Medications: Active Medications Acetaminophen (Tylenol -) 650 mg PO Q4H PRN PRN Reason: PAIN Stop: 07/10/17 13:52 Last Admin: 07/08/17 11:17 Dose: 650 mg Carbidopa/Levodopa (Sinemet *Cr* 50/200 -) 1 combo PO TID [facility] Last Admin: 07/08/17 06:46 Dose: 1 combo Diltiazem HCl (Cardizem -) 120 mg PO DAILY [facility] Last Admin: 07/08/17 10:55 Dose: 120 mg Lidocaine (Lidoderm Patch -) 1 patch TP DAILY PRN PRN Reason: PAIN Lisinopril (Prinivil) 20 mg PO BID [facility] Last Admin: 07/08/17 10:55 Dose: 20 mg Metoprolol Tartrate (Lopressor -) 50 mg PO TID [facility] Last Admin: 07/08/17 06:46 Dose: 50 mg Miscellaneous (Lidoderm Patch Removal) 1 each MC DAILY@2200 [facility] Last Admin: 07/07/17 22:55 Dose: 1 each Oxycodone HCl (Roxicodone -) 10 mg PO Q4H PRN PRN Reason: PAIN Last Admin: 07/08/17 11:16 Dose: 10 mg Pantoprazole Sodium (Protonix -) 40 mg PO BID [facility] Last Admin: 07/08/17 10:55 Dose: 40 mg - Allergies Allergies: Allergies Allergy/AdvReac Type Severity Reaction Status Date / Time pregabalin [From Lyrica] Allergy Mild Verified 06/15/17 10:03 pravastatin sodium Allergy Unknown Verified 06/15/17 10:03 [From Pravachol] lactose Allergy Nausea Verified 06/15/17 10:03 morphine Allergy Verified 06/15/17 10:03 peanut Allergy Verified 06/15/17 10:03 Penicillins Allergy Verified 06/15/17 10:03 - Current Living Status Usual Living Arrangement: With Significant Other - Current Mental Status Evaluation Appearance: Well Groomed Attitude: Cooperative - Affect Affect: Full Range Appropriateness: Appropriate to Content - Mood Mood: Euthymic - Speech/Language Expressive: Coherent - Psychomotor Activity Psychomotor Activity: Slowed - Thought Process Thought Process: Intact - Thought Content Hallucinations: Absent Delusions: Absent - Self Perception Self Perception: No Impairment - Cognition Attention: Alert Orientation: Time Memory, Immediate Recall: Intact Memory, Short Term: 3/3 Memory, Remote with Promptin/3 - Concentration Serial Sevens Intact: No Simple Calculations Intact: No - Abstraction Proverb Interpretation: Intact Judgement: Minimally Impaired - Insight Insight: Intact - Impulse Control Impulse Control: Minimally Impaired - Suicidal Ideation Suicidal Ideation: No - Homicidal Ideation Homicidal Ideation: No Assessment/Plan 1) Patient is not suicidal. 2) d/c 1:1.
[2017-07-08] MEDS ORDERED: BETAMET ACET/BETAMET NA PH 30 MG/5 ML VIAL IM ONE ×3 (13:45→14:45)
[2017-07-08] MEDS ORDERED: IOHEXOL 180 MG/1 ML ML IJ ONE ×2 (13:50→14:45)
[2017-07-08] MEDS ORDERED: BUPIVACAINE HCL/PF 0.25% (2.5MG/ML) 10 ML VIAL IJ ONE ×2 (13:50→14:45)
[2017-07-08] MEDS ORDERED: LIDOCAINE HCL 1%, 10 MG/ML (20ML VIAL) SNB ONE (13:50)
[2017-07-08] MEDS ORDERED: oxyCODONE HCL 5 MG TABLET PO PRN (14:29)
--- NOTE | 2017-07-08 14:35 | PN ---
Teaching Attending Note Name of Resident: Edwin Carrera ATTENDING PHYSICIAN STATEMENT Time of evaluation: 10:10 AM I saw and evaluated the patient. I reviewed the resident's note and discussed the case with the resident. I agree with the resident's findings and plan as documented. SUBJECTIVE: Patient seen and examined. Still with LLE pain and limited movements, unchanged symptoms, no new complaints. OBJECTIVE: Vital Signs Period Temp Pulse Resp BP Sys/Suazo Pulse Ox Last 24 Hr 97.3 F-98.2 F 57-61 18-20 110-150/72-84 96-97 Intake & Output 07/05/17 07/06/17 07/07/17 07/08/17 23:59 23:59 23:59 23:59 Intake Total 1240 540 200 Balance 1240 540 200 Weight 150 lb General: sitting in bed in no acute distress CVS:S1S2 regular Chest: CTAB, no rales or wheezing Extremities: SLR positive LLE 20 degrees, Neuro AAOx3, No spinal tenderness, LLE power 2-3/5, sensation positive to light touch, mild left foot drop Home Medication List Medication Instructions Recorded Confirmed Type Gabapentin [Neurontin -] 300 mg PO Q8H 07/06/17 07/07/17 History Lisinopril [Prinivil -] 20 mg PO BID 07/06/17 07/06/17 History Alendronate Na [Fosamax (Weekly)] 70 mg PO WEEKLY 07/07/17 07/07/17 History Carbidopa/Levodopa *Cr* 50/200 1 tab PO TID@0700,1200,1700 07/07/17 07/07/17 History [Sinemet *Cr* 50/200 -] Diltiazem [Cardizem -] 120 mg PO DAILY 07/07/17 07/07/17 History Lidocaine 5% Patch [Lidoderm -] 1 adh.patch TD DAILY 07/07/17 07/07/17 History Metoprolol Tartrate [Lopressor -] 50 mg PO TID 07/07/17 07/07/17 History Oxycodone HCl/Acetaminophen 1 tab PO Q6H PRN 07/07/17 07/07/17 History [Percocet 5-325 mg Tablet] Polyethylene Glycol 3350 [Miralax 17 gm PO QID 07/07/17 07/07/17 History (For Bowel Prep) -] Pramipexole Di-HCl [Pramipexole 0.5 mg PO QID 07/07/17 07/07/17 History Dihydrochloride] Active Medications Generic Name Dose Route Start Last Admin Trade Name Freq PRN Reason Stop Dose Admin Acetaminophen 650 mg 07/07/17 13:53 07/08/17 11:17 Tylenol - PO 07/10/17 13:52 650 mg Q4H PRN Administration PAIN Carbidopa/Levodopa 1 combo 07/07/17 08:30 07/08/17 06:46 Sinemet *Cr* 50/200 - PO 1 combo TID SIENA Administration Diltiazem HCl 120 mg 07/08/17 10:00 07/08/17 10:55 Cardizem - PO 120 mg DAILY SIENA Administration Lidocaine 1 patch 07/07/17 20:05 Lidoderm Patch - TP DAILY PRN PAIN Lisinopril 20 mg 07/07/17 10:00 07/08/17 10:55 Prinivil PO 20 mg BID SIENA Administration Metoprolol Tartrate 50 mg 07/07/17 10:00 07/08/17 06:46 Lopressor - PO 50 mg TID SIENA Administration Miscellaneous 1 each 07/07/17 22:00 07/07/17 22:55 Lidoderm Patch Removal MC 1 each DAILY@2200 SIENA Administration Oxycodone HCl 10 mg 07/08/17 14:29 Roxicodone - PO Q6H PRN PAIN Pantoprazole Sodium 40 mg 07/07/17 10:00 07/08/17 10:55 Protonix - PO 40 mg BID SIENA Administration ASSESSMENT AND PLAN: 72 yom with T12-S2 luminectomy/fusion/instrumention, complicated by fluid collection thought serosanguinous vs CSF, 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 Decrease narcotics, oxycodone to 5 mg PO q6h prn. Continue lidoderm patch Plan for d/c home after procedure. Discussed with patient in detail, all questions answered.
[2017-07-08] MEDS ORDERED: LIDOCAINE HCL 1%, 10 MG/ML (20ML VIAL) PNB ONE (14:45)
--- NOTE | 2017-07-08 15:04 | DS ---
Physical Exam: SUBJECTIVE: Patient seen and examined. Pain improved post procedure. Wants to go home OBJECTIVE: Vital Signs Period Temp Pulse Resp BP Sys/Suazo Pulse Ox Last 24 Hr 97.3 F-98.2 F 57-61 18-20 110-150/72-84 96 PHYSICAL EXAM GEN: AAOx3, No acute distress, but states his LLE pain is 7/10 HEENT: PERRLA, EOMi CV: RRR, S1, S2 LUNG: CTABL EXT: No erythema, no edema NEURO: L side - 4/5 hip flexion, knee flexion, ankle dosiflexion and plantar flexion ; sensation decreased R side - 5/5 hip flexion, knee flexion, ankle dorsiflexion and plantar flexion MSK: No focal spinal tenderness LABS Laboratory Last Values WBC 8.7 K/mm3 (4.0-10.0) 07/07/17 05:35 RBC 3.77 M/mm3 (4.00-5.60) L 07/07/17 05:35 Hgb 12.5 GM/dL (11.7-16.9) D 07/07/17 05:35 Hct 37.1 % (35.4-49) 07/07/17 05:35 MCV 98.6 fl (80-96) H 07/07/17 05:35 MCH 33.3 pg (25.7-33.7) 07/07/17 05:35 MCHC 33.8 g/dl (32.0-35.9) 07/07/17 05:35 RDW 15.2 % (11.9-15.9) 07/07/17 05:35 Plt Count 223 K/MM3 (134-434) 07/07/17 05:35 MPV 8.5 fl (7.5-11.1) 07/07/17 05:35 Neutrophils % 73.8 % (42.8-82.8) 07/06/17 15:14 Lymphocytes % 17.8 % (8-40) D 07/06/17 15:14 Monocytes % 7.0 % (3.8-10.2) 07/06/17 15:14 Eosinophils % 0.4 % (0-4.5) 07/06/17 15:14 Basophils % 1.0 % (0-2.0) 07/06/17 15:14 PT with INR 12.00 SEC (9.98-11.88) H 07/07/17 05:35 INR 1.06 (0.82-1.09) 07/07/17 05:35 Sodium 141 mmol/L (136-145) 07/07/17 05:35 Potassium 4.8 mmol/L (3.5-5.1) 07/07/17 05:35 Chloride 109 mmol/L (98-107) H 07/07/17 05:35 Carbon Dioxide 24 mmol/L (21-32) 07/07/17 05:35 Anion Gap 8 (8-16) 07/07/17 05:35 BUN 34 mg/dL (7-18) H 07/07/17 05:35 Creatinine 1.1 mg/dL (0.7-1.3) 07/07/17 05:35 Creat Clearance w eGFR > 60 (>60) 07/06/17 15:14 Random Glucose 93 mg/dL (74-106) 07/07/17 05:35 Calcium 8.3 mg/dL (8.5-10.1) L 07/07/17 05:35 Total Bilirubin 0.3 mg/dL (0.2-1.0) D 07/06/17 15:14 AST 20 U/L (15-37) D 07/06/17 15:14 ALT 30 U/L (12-78) 07/06/17 15:14 Alkaline Phosphatase 78 U/L (45-117) 07/06/17 15:14 Total Protein 6.8 g/dl (6.4-8.2) 07/06/17 15:14 Albumin 3.8 g/dl (3.4-5.0) 07/06/17 15:14 Urine Color Yellow 07/06/17 18:00 Urine Appearance Clear 07/06/17 18:00 Urine pH 5.0 (5.0-8.0) 07/06/17 18:00 Ur Specific Gifford 1.025 (1.001-1.035) 07/06/17 18:00 Urine Protein Negative (NEGATIVE) 07/06/17 18:00 Urine Glucose (UA) Negative (NEGATIVE) 07/06/17 18:00 Urine Ketones Negative (NEGATIVE) 07/06/17 18:00 Urine Blood Negative (NEGATIVE) 07/06/17 18:00 Urine Nitrite Negative (NEGATIVE) 07/06/17 18:00 Urine Bilirubin Negative (NEGATIVE) 07/06/17 18:00 Urine Urobilinogen 2.0 mg/dL (0.2-1.0) 07/06/17 18:00 Ur Leukocyte Esterase Trace (NEGATIVE) H 07/06/17 18:00 Urine RBC 0-2 /hpf (0-3) 07/06/17 18:00 Urine WBC 5-10 (0-2) 07/06/17 18:00 Ur Epithelial Cells 0-3 /HPF 07/06/17 18:00 Blood Type O NEGATIVE 07/07/17 09:10 Antibody Screen Negative 07/07/17 09:10 HOSPITAL COURSE: Date of Admission:07/06/17 Date of Discharge: 07/09/17 Briefly, Mr Hernandez is a 72yo male with a history or multiple hospitalizations for his chronic back pain, Parkinsons Disease, Afib (not on anticoagulation due to falls), HTN, HLD. He has had lumbar surgeries by Dr Nilesh Queen ( neurosurgery), recently had a L2-S laminectomies with decompression at L45 and T12 to S2 posterior spinal fusion on April 08, 2017 which was complicated by overlying CSF leak and pseudomeningiocele. He developed progressive mechanical back pain since. He presented to the ER with acute on chronic LLE pain. He has had MRI images which show multilevel degenerative changes at L2-3, L3-4, L4-5, and L5-S1. 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 He was previously sent to rehabilitation at [facility], but left Against Medical Advice after one day to a perceived lack of efficacy with the rehab. In the Emergency room, the patients vital signs were within normal limits. They contacted Dr. Queen who stated that no further neurosurgical interventions are warranted at this time. He advised the ER to contact Dr. Faizan Mondragon (pain management) for a nerve block procedure. Dr Mondragon was notified and agreed to perform a epidural steroid injection. He performed the injection on 07/08. At one point during the hospitalization, the patient stated to a nurse that he wanted to kill himself due to the pain. Psychiatry was brought in for evaluation , and 1:1 was placed. Psychiatry cleared the patient, and the patient revoked his statement. Physical therapy saw the patient and he walked only 5 feet. Inpatient physical therapy was recommended, but the patient adamantly refused. He understands the risks of falling including fracture, intracranial bleed, paralysis, and . The patient verbally expressed understanding of all the risks and wishes to go home. He understands he will take full responsibility of his own care. Prior to discharge he also refused bilateral lower extremity dopplers to rule out DVTs. The patient verbally understands risks of DVT including pulmonary embolism which could lead to sudden . The patient is aware of the hospital course and agrees with the plan. He will be set up with home Physical therapy. Minutes to complete discharge: 45 Discharge Summary Reason For Visit: ENCOUNTER FOR PAIN MANAGEMENT Current Active Problems Back pain with left-sided radiculopathy (Acute) Pain management (Acute) Thoracic or lumbosacral neuritis or radiculitis (Acute) Weakness of left lower extremity (Acute) Condition: Stable - Instructions Diet, Activity, Other Instructions: RECOMMENDATIONS: - You were admitted due to left leg pain, likely related to your back surgeries - Dr. Mondragon saw you and performed an epidural steroid injection. - We believe this should help control your pain. Please followup with him in 1 week - Please take all your medications as prescribed. - Continue to increase your activity at home to improve your functional status - If you have no relief with the pain, please call Dr. Mondragon's office. - Do not drive, operate heavy machinery or take important decisions alone on narcotics -Maintain bowel regimen while on pain medications - Total acetaminophen dose from all sources not to exceed 4 g in 24 hours - If you experience severe pain, chest pain, shortness of breath please return to the ER. MEDICATION CHANGES: - None FOLLOWUPS: - Dr. Faizan Mondragon (Physical Medicine & Rehabilitation Physician) - within 1 week - Dr. Nilesh Queen (Neurosurgeon) - within 3 weeks - Your Primary Care Doctor - within 2 weeks Referrals: Nilesh Queen MD, [facility] [Staff Physician] - 3 Weeks Faizan Mondragon MD [Staff Physician] - 1 Week Disposition: VNS/HOME HEALTH CARE - Home Medications Comprehensive Discharge Medication List: Ambulatory Orders Ferrous Sulfate [Feosol] 325 mg PO BID@0800,1730 #60 tab 06/05/17 Lidocaine Patch Removal [Lidoderm Patch Removal] 1 each MC DAILY@2200 each 09/20 Pantoprazole Sodium [Protonix -] 40 mg PO BID #60 tablet.ec 06/05/17 Gabapentin [Neurontin -] 300 mg PO Q8H 07/06/17 Lisinopril [Prinivil -] 20 mg PO BID 07/06/17 Alendronate Na [Fosamax (Weekly)] 70 mg PO WEEKLY 07/07/17 Carbidopa/Levodopa *Cr* 50/200 [Sinemet *Cr* 50/200 -] 1 tab PO TID@0700,1200, 1700 07/07/17 Diltiazem [Cardizem -] 120 mg PO DAILY 07/07/17 Lidocaine 5% Patch [Lidoderm -] 1 adh.patch TD DAILY 07/07/17 Metoprolol Tartrate [Lopressor -] 50 mg PO TID 07/07/17 Oxycodone HCl/Acetaminophen [Percocet 5-325 mg Tablet] 1 tab PO Q6H PRN Polyethylene Glycol 3350 [Miralax (For Bowel Prep) -] 17 gm PO QID 07/07/17 Pramipexole Di-HCl [Pramipexole Dihydrochloride] 0.5 mg PO QID 07/07/17 This patient is new to me today: No Emergency Visit: No Critical Care patient: No - Discharge Referral [facility]erred to [facility] No
--- NOTE | 2017-07-08 15:57 | PN ---
Physical Exam: SUBJECTIVE: Patient seen and examined. Stated pain still exists. Going for surgery today OBJECTIVE: Vital Signs Period Temp Pulse Resp BP Sys/Suazo Pulse Ox Last 24 Hr 97.3 F-98.2 F 54-61 18-20 110-150/63-84 96 GEN: AAOx3, No acute distress, but states his LLE pain is 7/10 HEENT: PERRLA, EOMi CV: RRR, S1, S2 LUNG: CTABL EXT: No erythema, no edema NEURO: L side - 3/5 hip flexion, knee flexion, ankle dosiflexion and plantar flexion ; sensation decreased R side - 4/5 hip flexion, knee flexion, ankle dorsiflexion and plantar flexion MSK: No focal spinal tenderness Active Medications Generic Name Dose Route Start Last Admin Trade Name Freq PRN Reason Stop Dose Admin Acetaminophen 650 mg 07/07/17 13:53 07/08/17 11:17 Tylenol - PO 07/10/17 13:52 650 mg Q4H PRN Administration PAIN Carbidopa/Levodopa 1 combo 07/07/17 08:30 07/08/17 06:46 Sinemet *Cr* 50/200 - PO 1 combo TID SIENA Administration Diltiazem HCl 120 mg 07/08/17 10:00 07/08/17 10:55 Cardizem - PO 120 mg DAILY SIENA Administration Lidocaine 1 patch 07/07/17 20:05 Lidoderm Patch - TP DAILY PRN PAIN Lisinopril 20 mg 07/07/17 10:00 07/08/17 10:55 Prinivil PO 20 mg BID SIENA Administration Metoprolol Tartrate 50 mg 07/07/17 10:00 07/08/17 06:46 Lopressor - PO 50 mg TID SIENA Administration Miscellaneous 1 each 07/07/17 22:00 07/07/17 22:55 Lidoderm Patch Removal MC 1 each DAILY@2200 SIENA Administration Oxycodone HCl 5 mg 07/08/17 14:37 Roxicodone - PO Q6H PRN PAIN Pantoprazole Sodium 40 mg 07/07/17 10:00 07/08/17 10:55 Protonix - PO 40 mg BID SIENA Administration ASSESSMENT/PLAN: 72yo M with PMHx of Multiple back surgeries, who has been having chronic back pain since latest laminectomy/fusion on Apr 2017. He presents to the ER with worsening LLE neuropathic pain. # LLE Pain - Neuropathic from multiple back surgeries. Epidural nerve block today by Dr. Mondragon (pain management). NPO since midnight. T&S, Coags ordered. Percocet for today. Morphine allergy noted, but patient takes Oxy at home. # HTN - Continue home Lisinopril 20mg BID # Parkinsons - Continue Sinemet 50/200 TID # Hx of Afib - No anticoagulation due to falls, continue Metoprolol 50 TID and Diltiazem 120 daily # FEN - No IVF, elec WNL, Sodium controlled diet # PPx - No AC due to risk of fakks # Dispo - D/c tomorrow after epidural nerve block and physical therapy sees the patient d/w Dr Meggan Carrera MD - PGY1 Internal Medicine Visit type - Emergency Visit Emergency Visit: No - New Patient This patient is new to me today: No - Critical Care Critical Care patient: No - Discharge Referral Referred to [facility] No
--- NOTE | 2017-07-08 19:29 | HOSP ---
Subjective - Review of Symptoms Subjective: Was paged by the Nurse because the patient stated he wanted to hurt himself. Nurse was seen and I was told by her patient wanted to hurt himself when he gets home by "cutting off his leg" to end his misery. Patient was seen and examined. Patient stated he was in a lot of pain in his left leg and wanted to "chop off his leg". He also stated he had no intention of killing himself. He later admitted he was frustrated with the pain and denied wanting to chop off his legs. He also stated he was hoping the nerve block works in the afternoon so he won't deal with the pain anymore. Physical Examination Labs: Visit type - Emergency Visit Emergency Visit: Yes ED Registration Date: 07/08/17 Care time: The patient presented to the Emergency Department on the above date and was hospitalized for further evaluation of their emergent condition. - New Patient This patient is new to me today: Yes Date on this admission: 07/08/17 - Critical Care Critical Care patient: No
[2017-07-08] MEDS: LIDOCAINE PATCH REMOVAL MC SCH (21:50)
[2017-07-09] MEDS: ACETAMINOPHEN 325 MG TABLET (FP) PO PRN (01:23)
[2017-07-09] MEDS: METOPROLOL TARTRATE 50 MG TABLET (FP) PO SCH (06:33)
[2017-07-09] MEDS: oxyCODONE HCL 5 MG TABLET PO PRN (06:37)
[2017-07-09 07:34] LABS: MCH 32.7 pg (25.7-33.7); MEAN PLT VOLUME 8.5 fl (7.5-11.1); PLATELET COUNT 259 K/MM3 (134-434); RDW 15.1 % (11.9-15.9); WHITE BLOOD COUNT 6.5 K/mm3 (4.0-10.0)
[2017-07-09 07:52] LABS: ANION GAP 9 (8-16); CALCIUM 9.2 mg/dL (8.5-10.1); CO2 22 mmol/L (21-32); GLUCOSE,RANDOM 117 mg/dL (74-106)
[2017-07-09 07:55] LABS: CREATININE 1.2 mg/dL (0.7-1.3)
--- NOTE | 2017-07-09 08:28 | PN ---
Teaching Attending Note Name of Resident: Edwin Carrera ATTENDING PHYSICIAN STATEMENT I saw and evaluated the patient. I reviewed the resident's note and discussed the case with the resident. I agree with the resident's findings and plan as documented. SUBJECTIVE: Patient seen and examined. Currently comfortably sitting in bed, trying to make dc plans, ride etc. No new pain or complaints. No new weakness. Pain better currently. OBJECTIVE: Vital Signs Period Temp Pulse Resp BP Sys/Suazo Pulse Ox Last 24 Hr 97.4 F-98.1 F 54-77 20-20 116-155/50-96 95-96 Intake & Output 07/06/17 07/07/17 07/08/17 07/09/17 23:59 23:59 23:59 23:59 Intake Total 1240 540 550 100 Balance 1240 540 550 100 Weight 150 lb General: comfortably sitting in bed, no distress or pain Extremities: LLE with limited SLR, unchanged from yesterday, no calf tenderness/ swelling/redness noted, positive DP pulses Home Medication List Medication Instructions Recorded Confirmed Type Gabapentin [Neurontin -] 300 mg PO Q8H 07/06/17 07/07/17 History Lisinopril [Prinivil -] 20 mg PO BID 07/06/17 07/06/17 History Alendronate Na [Fosamax (Weekly)] 70 mg PO WEEKLY 07/07/17 07/07/17 History Carbidopa/Levodopa *Cr* 50/200 1 tab PO TID@0700,1200,1700 07/07/17 07/07/17 History [Sinemet *Cr* 50/200 -] Diltiazem [Cardizem -] 120 mg PO DAILY 07/07/17 07/07/17 History Lidocaine 5% Patch [Lidoderm -] 1 adh.patch TD DAILY 07/07/17 07/07/17 History Metoprolol Tartrate [Lopressor -] 50 mg PO TID 07/07/17 07/07/17 History Oxycodone HCl/Acetaminophen 1 tab PO Q6H PRN 07/07/17 07/07/17 History [Percocet 5-325 mg Tablet] Polyethylene Glycol 3350 [Miralax 17 gm PO QID 07/07/17 07/07/17 History (For Bowel Prep) -] Pramipexole Di-HCl [Pramipexole 0.5 mg PO QID 07/07/17 07/07/17 History Dihydrochloride] Active Medications Generic Name Dose Route Start Last Admin Trade Name Freq PRN Reason Stop Dose Admin Acetaminophen 650 mg 07/07/17 13:53 07/09/17 01:23 Tylenol - PO 07/10/17 13:52 650 mg Q4H PRN Administration PAIN Carbidopa/Levodopa 1 combo 07/07/17 08:30 07/09/17 06:33 Sinemet *Cr* 50/200 - PO 1 combo TID SIENA Administration Diltiazem HCl 120 mg 07/08/17 10:00 07/08/17 10:55 Cardizem - PO 120 mg DAILY SIENA Administration Lidocaine 1 patch 07/07/17 20:05 Lidoderm Patch - TP DAILY PRN PAIN Lisinopril 20 mg 07/07/17 10:00 07/08/17 21:37 Prinivil PO 20 mg BID SIENA Administration Metoprolol Tartrate 50 mg 07/07/17 10:00 07/09/17 06:33 Lopressor - PO 50 mg TID SIENA Administration Miscellaneous 1 each 07/07/17 22:00 07/08/17 21:50 Lidoderm Patch Removal MC Not Given DAILY@22[facility] Oxycodone HCl 5 mg 07/08/17 14:37 07/09/17 06:37 Roxicodone - PO 5 mg Q6H PRN Administration PAIN Pantoprazole Sodium 40 mg 07/07/17 10:00 07/08/17 21:36 Protonix - PO 40 mg BID SIENA Administration Laboratory Results - last 24 hr 07/09/17 07/09/17 06:00 06:00 WBC 6.5 RBC 4.33 Hgb 14.2 D Hct 42.8 D MCV 99.0 H MCH 32.7 MCHC 33.0 RDW 15.1 Plt Count 259 MPV 8.5 Sodium 136 Potassium 5.0 Chloride 105 Carbon Dioxide 22 Anion Gap 9 BUN 36 H Creatinine 1.2 Random Glucose 117 H D Calcium 9.2 ASSESSMENT AND PLAN: Overnight events reviewed, no suicidal or homicidal ideation s/p epidural steroid injection. Improved clinically, no new concerns. Declines repeat PT eval inhouse but agreable to home PT that has been arranged. Declined LE venous doppler, risks including undiagnosed clot, with resultant risk of clot in lungs, trouble breathing and have been explained. Patient relays understanding. Advised to seek care if new calf pain/redness/swelling noted or new leg pain noted. Current clinical suspicion low based on exam. D/c home with VNS today. PLan discussed with patient in detail, all questions answered.
[2017-07-09 09:39] VITALS: BP 142/76; PULSE 62; TEMP 98.5
[2017-07-09] MEDS: dilTIAZem HCL 60 MG TABLET (FP) PO SCH (09:42)
[2017-07-09] MEDS: PANTOPRAZOLE 40 MG TABLET (FP) PO SCH (09:43)
[2017-07-09] MEDS: LISINOPRIL 20 MG TABLET (FP) PO SCH (09:43)
== END 2017-07-09 12:27 | disposition home health service (06) | DRG 552 ==
LOC: JER 13:08 → UNDOADMOB 18:39 → INTOOBSV 18:39 → JERBED 18:39 → J7W 22:59 → JERBED 22:59 → J7W 23:47 → OBSVTOIN 07-08 16:32
PROVIDERS: ADMIT Internal Medicine; ATTEND Hospitalist
PROC: 3E0S33Z Introduction of Anti-inflammatory into Epidural Space, Percutaneous Approach (ICD-10-PCS; principal; 2017-07-08 10:30)
DX: M54.16 Radiculopathy, lumbar region (principal); R64 Cachexia; I50.22 Chronic systolic (congestive) heart failure; I48.0 Paroxysmal atrial fibrillation; E78.5 Hyperlipidemia, unspecified; Z87.891 Personal history of nicotine dependence; Z68.22 Body mass index [BMI] 22.0-22.9, adult; J44.9 Chronic obstructive pulmonary disease, unspecified; K58.9 Irritable bowel syndrome, unspecified; F32.9 Major depressive disorder, single episode, unspecified; G20 Parkinson's disease; F41.9 Anxiety disorder, unspecified; I44.7 Left bundle-branch block, unspecified; I11.0 Hypertensive heart disease with heart failure; R20.0 Anesthesia of skin; Z88.0 Allergy status to penicillin
CPT/HCPCS: 36415; 71010-TC; 76000-TC; 80048; 80053; 81003; 81015; 85025; 85027; 85610; 86850; 86900; 86901; 87086; 97116-GP; 97161-GP; 99284-25; G0378

== ENCOUNTER 2017-07-22 13:34 | Emergency (ER) | payer OTHER, BC ==
[2017-07-22] MEDS ORDERED: HYDROmorphone HCL 2 MG TABLET PO ONE (13:58)
[2017-07-22] MEDS ORDERED: KETOROLAC TROMETHAMINE 15 MG/ML VIAL IM ONE (14:00)
[2017-07-22 14:06] VITALS: TEMP 98.4; BMI 21.1
[2017-07-22] MEDS ORDERED: KETOROLAC TROMETHAMINE 15 MG/ML VIAL ONE (14:10)
[2017-07-22] MEDS ORDERED: HYDROmorphone HCL 2 MG TABLET ONE (14:16)
[2017-07-22 15:12] LABS: BASO % 0.1 % (0-2.0); MCH 33.2 pg (25.7-33.7); MCHC 33.6 g/dl (32.0-35.9); MEAN CELL VOLUME 98.8 fl (80-96); MEAN PLT VOLUME 9.1 fl (7.5-11.1); NEUT % 72.1 % (42.8-82.8); PLATELET COUNT 210 K/MM3 (134-434); RDW 14.6 % (11.9-15.9); WHITE BLOOD COUNT 11.9 K/mm3 (4.0-10.8)
[2017-07-22 15:24] LABS: ALK PHOS 57 U/L (32-92); ANION GAP 8 (8-16); BILIRUBIN,TOTAL 0.3 mg/dl (0.2-1.0); CALCIUM 9.3 mg/dl (8.4-10.2); CO2 22 mmol/L (22-28); CREATININE 1.1 mg/dl (0.6-1.3); GLUCOSE,RANDOM 110 mg/dl (74-106); SGOT/AST 19 U/L (10-42); SGPT/ALT 41 U/L (10-40); TOT PROT 6.4 g/dl (6.4-8.3)
--- NOTE | 2017-07-22 15:31 | PDOC ---
History of Present Illness - General Chief Complaint: Pain Stated Complaint: PAIN TO BACK AND LEFT LEG Time Seen by Provider: 07/22/17 13:57 - History of Present Illness Initial Comments: 07/22/17 15:31 72 M with chronic LBP s/p laminectomy/fusion, most recent surgery in 04/2017, presenting to ER with chronic back pain. Pt was admitted to hospital for intractible back pain last month, was evaluated by pain management, Dr. Faizan Mondragon, and received spinal injection. Pt was then discharged home. He states that he has had the same level of pain since his surgery, and nothing has helped it. He denies any recent trauma or falls. Is able to ambulate with assistance but states that the pain is always there. The percocets have not helped, and the injection from Dr. Mondragon did not help. He denies any new numbness /weakness. Pt comes to ER today because his back closer was "tired of hearing him scream every day". Pt has not followed up with Dr. Mondragon since his discharge from the hospital. Past History - Past Medical History Allergies/Adverse Reactions: Allergies Allergy/AdvReac Type Severity Reaction Status Date / Time pregabalin [From Lyrica] Allergy Mild Verified 07/22/17 13:39 pravastatin sodium Allergy Unknown Verified 07/22/17 13:39 [From Pravachol] morphine Allergy Verified 07/22/17 13:40 peanut Allergy Verified 07/22/17 13:40 Penicillins Allergy Verified 07/22/17 13:40 lactose AdvReac Nausea Verified 07/22/17 13:39 Home Medications: Ambulatory Orders Gabapentin [Neurontin -] 300 mg PO Q8H 07/06/17 Lisinopril [Prinivil -] 20 mg PO BID 07/06/17 Oxycodone HCl/Acetaminophen [Percocet 5-325 mg Tablet] 1 tab PO Q6H PRN Alprazolam [Xanax] 2.5 mg PO BID 07/22/17 FENTANYL 12mcg PATCH [DURAGESIC 12mcg PATCH -] 1 each TD Q72H #5 patch MDD 1 patch 07/22/17 Anemia: No Asthma: No Cancer: No Cardiac Disorders: Yes (HTN, HLD, Paroxysmal AFib) CVA: (NPH) COPD: Yes CHF: No DVT: No Dementia: No Diabetes: No GI Disorders: Yes (Diverticulitis, IBS, hemorrhoids) Disorders: Yes (Englarged Prostate) HTN: Yes Hypercholesterolemia: Yes Kidney Stones: Yes (s/p Right UVJ Stent placement) Liver Disease: No Psychiatric Problems: Yes (Depression/Anxiety) Seizures: No Thyroid Disease: No - Surgical History Abdominal Surgery: Yes (Hernia Repair) Appendectomy: No Cardiac Surgery: No Cholecystectomy: No GI Surgery: Yes (HEMORRHOIDS/ANAL ULCER, RIGHT UVJ STENT) Lung Surgery: No Neurologic Surgery: No Orthopedic Surgery: Yes (Lumbar Back Surgery x2) - Immunization History Immunization Up to Date: Yes - Suicide/Smoking/Psychosocial Hx Smoking Status: No Smoking History: Former smoker Years of Tobacco Use: 20 Have you smoked in the past 12 months: No Number of Cigarettes Smoked Daily: 0 If you are a former smoker, when did you quit?: 1969 Information on smoking cessation initiated: No 'Breaking Loose' booklet given: 09/08/13 Hx Alcohol Use: No Drug/Substance Use Hx: No Substance Use Type: None Hx Substance Use Treatment: No Review of Systems - Review of Systems Comments:: 07/22/17 15:36 "GENERAL/CONSTITUTIONAL: No fever or chills. No weakness. HEAD, EYES, EARS, NOSE AND THROAT: No change in vision. No ear pain or discharge. No sore throat. CARDIOVASCULAR: No chest pain or shortness of breath. RESPIRATORY: No cough, wheezing, or hemoptysis. GASTROINTESTINAL: No nausea, vomiting, diarrhea or constipation. GENITOURINARY: No dysuria, frequency, or change in urination. MUSCULOSKELETAL: No joint or muscle swelling or pain. No neck or back pain. BACK: + back pain SKIN: No rash NEUROLOGIC: No headache, vertigo, loss of consciousness, or change in strength/ sensation. ENDOCRINE: No increased thirst. No abnormal weight change. HEMATOLOGIC/LYMPHATIC: No anemia, easy bleeding, or history of blood clots. ALLERGIC/IMMUNOLOGIC: No hives or skin allergy. " *Physical Exam - Vital Signs Last Vital Signs Temp Pulse Resp BP Pulse Ox 98.4 F 110 H 20 119/80 95 07/22/17 13:36 07/22/17 13:36 07/22/17 13:36 07/22/17 13:36 07/22/17 13:36 - Physical Exam Comments: 07/22/17 15:37 "GENERAL: Awake, alert, and fully oriented, in no acute distress HEAD: No signs of trauma EYES: PERRLA, EOMI, sclera anicteric, conjunctiva clear ENT: Auricles normal inspection, hearing grossly normal, nares patent, oropharynx clear without exudates. Moist mucosa NECK: Nontender, no stepoffs, Normal ROM, supple, no lymphadenopathy, JVD, or masses LUNGS: Breath sounds equal, clear to auscultation bilaterally. No wheezes, and no crackles HEART: Regular rate and rhythm, normal S1 and S2, no murmurs, rubs or gallops ABDOMEN: Soft, nontender, normoactive bowel sounds. No guarding, no rebound. No masses BACK: no stepoffs, no deformity, no midline tenderness EXTREMITIES: Normal range of motion, no edema. No clubbing or cyanosis. No cords, erythema, or tenderness NEUROLOGICAL: Cranial nerves II through XII intact. 4/5 strength and sensation LLE, RLE wnl, Normal speech SKIN: Warm, Dry, normal turgor, no rashes or lesions noted. " ED Treatment Course - LABORATORY CBC & Chemistry Diagram: 07/22/17 14:21 07/22/17 13:57 - ADDITIONAL ORDERS Additional order review: Laboratory Results 07/22/17 13:57 Sodium 137 Potassium 4.2 Chloride 107 Carbon Dioxide 22 Anion Gap 8 BUN 35 H D Creatinine 1.1 D Creat Clearance w eGFR > 60 Random Glucose 110 H Calcium 9.3 Total Bilirubin 0.3 D AST 19 ALT 41 H D Alkaline Phosphatase 57 D Total Protein 6.4 Albumin 4.0 07/22/17 14:21 RBC 4.40 MCV 98.8 H MCHC 33.6 RDW 14.6 D MPV 9.1 Neutrophils % 72.1 D Lymphocytes % 19.7 D Monocytes % 6.1 Eosinophils % 2.0 Basophils % 0.1 - RADIOLOGY Radiology Studies Ordered: Category Date Time Status DUPLEX VASCUL US-2LEGS [US] Stat Ultrasound 07/22/17 13:58 Ordered - Medications Given in the ED: ED Medications Discontinued Medications Generic Name Dose Route Start Last Admin Trade Name Freq PRN Reason Stop Dose Admin Hydromorphone HCl 2 mg 07/22/17 13:58 07/22/17 14:18 Dilaudid - PO 07/22/17 13:59 2 mg ONCE ONE Administration Ketorolac Tromethamine 15 mg 07/22/17 14:00 07/22/17 14:14 Toradol Injection - IM 07/22/17 14:01 15 mg ONCE ONE Administration Medical Decision Making - Medical Decision Making 07/22/17 15:37 72 M with intractable lower back pain. No acute complaints. No new neuro deficits to suggest acute injury. - Pain control - LLE US to r/o DVT as pt refused this upon discharge 2 weeks ago - Consult Dr. Mondragon for pain management 07/22/17 16:02 US negative. Spoke with Dr. Mondragon, who recommends fentanyl patch 12 ug every 3 days. He states he will see pt in his office this Friday. Pt reassessed - pain now better controlled. 07/22/17 16:07 Pt well appearing, vitals now wnl. BP 130/80, HR 94 Pt has 24 hr aide at home who will accompany him to pharmacy and to Dr. Mondragon's office. Clinically stable for DC. *DC/Admit/Observation/Transfer Diagnosis at time of Disposition: Back pain with left-sided radiculopathy - Discharge Dispostion Disposition: HOME Condition at time of disposition: Stable - Referrals Referrals: Faizan Mondragon MD [Staff Physician] - - Patient Instructions Printed Discharge Instructions: DI for Low Back Pain Additional Instructions: composing room supervisor the fentanyl patches from your pharmacy. Use ONE patch at a time, and leave it on for 3 days. After that, remove the old patch and replace with a new one. DO NOT take any percocets while you have the patch on, as this may cause an overdose. You MUST follow up with Dr. Mondragon this Friday. Call the number provided to confirm your appointment. If you experience worsening pain, weakness, numbness, or any other concerning symptoms, return to the ER immediately. - Post Discharge Activity - Attestations Physician Attestion: 07/22/17 16:07 I, Dr. Carlton Fontenot MD, attest that this document has been prepared under my direction and personally reviewed by me in its entirety. I further attest, that it accurately reflects all work, treatment, procedures and medical decision -making performed by me.
[2017-07-22 16:10] VITALS: BP 132/84; PULSE 100
== END 2017-07-22 16:16 | disposition home or self-care (01) ==
LOC: FER 13:34
PROC: 3E0233Z Introduction of Anti-inflammatory into Muscle, Percutaneous Approach (ICD-10-PCS; principal; 2017-07-22)
DX: M54.9 Dorsalgia, unspecified (principal); M54.16 Radiculopathy, lumbar region; G89.29 Other chronic pain; I10 Essential (primary) hypertension; E78.5 Hyperlipidemia, unspecified; I48.91 Unspecified atrial fibrillation; J44.9 Chronic obstructive pulmonary disease, unspecified; F32.9 Major depressive disorder, single episode, unspecified
CPT/HCPCS: 36415; 80053; 85025; 93970-TC; 99282-25

== ENCOUNTER 2017-08-15 19:20 | Emergency (ER) | payer OTHER, BC ==
[2017-08-15 19:46] VITALS: BP 105/88; PULSE 72; TEMP 98.2; BMI 22.1
--- NOTE | 2017-08-15 20:25 | PDOC ---
History of Present Illness - General History Source: Patient, Old Records Exam Limitations: No Limitations - History of Present Illness Initial Comments: 08/15/17 21:05 The patient is a 72 year old male with past medical history of hypertension, hyperlipidemia, paroxysmal Afib, COPD, chronic lower back pain, s/p spinal fusion/laminectomy with surgery done 04/2017 who presents to the ED with complaints of left leg pain and numbness. He states his pain radiates from his left buttock down to his toes, is a sharp pain that often makes him cry out in pain. He states his pain makes it impossible for him to ambulate as he is bed ridden. The patient has been in the ED multiple times for the same complaints and reports that his neurosurgeon will not help him and his insurance ran out for his rehab. The patient denies any fevers, chills, nausea, vomiting, diarrhea , cough, SOB, CP, or urinary symptoms. <Racheal Daniel - Last Filed: 08/15/17 22:16> <Nahomi Calloway - Last Filed: 08/15/17 23:37> - General Chief Complaint: Pain Stated Complaint: LEG PAIN Time Seen by Provider: 08/15/17 20:24 Past History <Rachael Daniel - Last Filed: 08/15/17 22:16> - Past Medical History Anemia: No Asthma: No Cancer: No Cardiac Disorders: Yes (HTN, HLD, Paroxysmal AFib) CVA: (NPH) COPD: Yes CHF: No DVT: No Dementia: No Diabetes: No GI Disorders: Yes (Diverticulitis, IBS, hemorrhoids) Disorders: Yes (Englarged Prostate) HTN: Yes Hypercholesterolemia: Yes Kidney Stones: Yes (s/p Right UVJ Stent placement) Liver Disease: No Psychiatric Problems: Yes (Depression/Anxiety) Seizures: No Thyroid Disease: No - Surgical History Abdominal Surgery: Yes (Hernia Repair) Appendectomy: No Cardiac Surgery: No Cholecystectomy: No GI Surgery: Yes (HEMORRHOIDS/ANAL ULCER, RIGHT UVJ STENT) Lung Surgery: No Neurologic Surgery: No Orthopedic Surgery: Yes (Lumbar Back Surgery x2) - Immunization History Immunization Up to Date: Yes - Suicide/Smoking/Psychosocial Hx Smoking Status: No Smoking History: Former smoker Years of Tobacco Use: 20 Have you smoked in the past 12 months: No Number of Cigarettes Smoked Daily: 0 If you are a former smoker, when did you quit?: 1970 Information on smoking cessation initiated: No 'Breaking Loose' booklet given: 09/08/13 Hx Alcohol Use: No Drug/Substance Use Hx: No Substance Use Type: None Hx Substance Use Treatment: No <Nahomi Calloway - Last Filed: 08/15/17 23:37> - Past Medical History Allergies/Adverse Reactions: Allergies Allergy/AdvReac Type Severity Reaction Status Date / Time pregabalin [From Lyrica] Allergy Mild Verified 08/15/17 19:46 pravastatin sodium Allergy Unknown Verified 08/15/17 19:46 [From Pravachol] morphine Allergy Verified 08/15/17 19:46 peanut Allergy Verified 08/15/17 19:46 Penicillins Allergy Verified 08/15/17 19:46 lactose AdvReac Nausea Verified 08/15/17 19:46 Home Medications: Ambulatory Orders Gabapentin [Neurontin -] 300 mg PO BID 07/06/17 Lisinopril [Prinivil -] 20 mg PO BID 07/06/17 Oxycodone HCl/Acetaminophen [Percocet 5-325 mg Tablet] 1 tab PO Q6H PRN Alprazolam [Xanax] 2.5 mg PO BID 07/22/17 Review of Systems - Review of Systems Able to Perform ROS?: Yes Comments:: 08/15/17 21:11 GENERAL/CONSTITUTIONAL: No fever or chills. No weakness. HEAD, EYES, EARS, NOSE AND THROAT: No change in vision. No ear pain or discharge. No sore throat. CARDIOVASCULAR: No chest pain or shortness of breath. RESPIRATORY: No cough, wheezing, or hemoptysis. GASTROINTESTINAL: No nausea, vomiting, diarrhea or constipation. GENITOURINARY: No dysuria, frequency, or change in urination. MUSCULOSKELETAL: Present: left leg pain/numbness No neck or back pain. SKIN: No rash NEUROLOGIC: No headache, vertigo, loss of consciousness, or change in strength/ sensation. ENDOCRINE: No increased thirst. No abnormal weight change. HEMATOLOGIC/LYMPHATIC: No anemia, easy bleeding, or history of blood clots. ALLERGIC/IMMUNOLOGIC: No hives or skin allergy. All Other Systems: Reviewed and Negative <Rachael Daniel - Last Filed: 08/15/17 22:16> *Physical Exam - Vital Signs Last Vital Signs Temp Pulse Resp BP Pulse Ox 98.2 F 72 18 105/88 96 08/15/17 19:44 08/15/17 19:44 08/15/17 19:44 08/15/17 19:44 08/15/17 19:44 - Physical Exam Comments: 08/15/17 21:12 GENERAL: Awake, alert, and fully oriented, uncomfortable HEAD: No signs of trauma EYES: PERRLA, EOMI, sclera anicteric, conjunctiva clear ENT: Auricles normal inspection, hearing grossly normal, nares patent, oropharynx clear without exudates. Moist mucosa NECK: Normal ROM, supple, no lymphadenopathy, JVD, or masses LUNGS: Breath sounds equal, clear to auscultation bilaterally. No wheezes, and no crackles HEART: Regular rate and rhythm, normal S1 and S2, no murmurs, rubs or gallops ABDOMEN: Soft, nontender, normoactive bowel sounds. No guarding, no rebound. No masses EXTREMITIES: Normal range of motion, no edema. No clubbing or cyanosis. No cords, erythema, or tenderness NEUROLOGICAL: L foot is contracted, unable to plantar, dorsiflex or extend great toe. Cranial nerves II through XII grossly intact. Normal speech, normal gait SKIN: Warm, Dry, normal turgor, no rashes or lesions noted. <Rahcael Daniel - Last Filed: 08/15/17 22:16> - Vital Signs Last Vital Signs Temp Pulse Resp BP Pulse Ox 98.2 F 72 18 105/88 96 08/15/17 19:44 08/15/17 19:44 08/15/17 19:44 08/15/17 19:44 08/15/17 19:44 <Nahomi Calloway - Last Filed: 08/15/17 23:37> ED Treatment Course - LABORATORY CBC & Chemistry Diagram: 08/15/17 21:07 08/15/17 21:07 <Rachael Daniel - Last Filed: 08/15/17 22:16> - LABORATORY CBC & Chemistry Diagram: 08/15/17 21:07 08/15/17 21:07 <Nahomi Calloway - Last Filed: 08/15/17 23:37> Medical Decision Making - Medical Decision Making 08/15/17 21:13 Phone call placed to patient's neurosurgeon, Dr. Nilesh Hazel, awaiting call back. 08/15/17 22:16 Phone call returned by Dr. Hazel and case discussed. <Rachael Daniel - Last Filed: 08/15/17 22:16> - Medical Decision Making 08/15/17 22:14 Pt presents to the ED complaining of exacerbation of his chronic back pain. patient had a laminectomy by Dr. Martinez in april and has had a very complicated recovery. Pt has had multiple admissions to this hospital and other hospitals for chronic pain. Denies new complaints--presented to the ED because he is "tired of not being able to walk" and he wanted Dr. Martinez to perform another surgical intervention. I have discussed the case at length with Juan Oliva, who has a detailed outpatient management plan for the patient. I have offered him inpatient admission for pain control, but he has told me that he prefers to go home. 08/15/17 23:32 <Nahomi Calloway - Last Filed: 08/15/17 23:37> *DC/Admit/Observation/Transfer - Attestations Scribe Attestion: 08/15/17 21:13 Documentation prepared by Rachael Daniel, acting as medical concierge for Nahomi Calloway MD. <Rachael Daniel - Last Filed: 08/15/17 22:16> - Discharge Dispostion Admit: No <Nahomi Calloway - Last Filed: 08/15/17 23:37> Diagnosis at time of Disposition: Back pain Qualifiers: Back pain location: low back pain Chronicity: chronic Back pain laterality: left Sciatica presence: without sciatica Qualified Code(s): M54.5 - Low back pain; G89.29 - Other chronic pain; G89.29 - Other chronic pain - Discharge Dispostion Disposition: HOME Condition at time of disposition: Good - Patient Instructions Printed Discharge Instructions: DI for Low Back Pain Additional Instructions: return to the ED for severe pain, new weakness of your legs, loss of bowel or bladder control, other new or worsening symptoms. Call Dr. Martinez's office for follow up.
[2017-08-15] MEDS ORDERED: HYDROmorphone HCL CARPU-JECT 1 MG/1 ML DISP.SYRIN IVPUSH ONE (20:52)
[2017-08-15] MEDS ORDERED: HYDROmorphone HCL CARPU-JECT 1 MG/1 ML DISP.SYRIN ONE (21:13)
[2017-08-15 21:56] LABS: BASO % 0.8 % (0-2.0); EOS % 1.9 % (0-4.5); HEMATOCRIT 41.7 % (35.4-49); HEMOGLOBIN 13.8 GM/dL (11.7-16.9); LYMPH % 26.3 % (8-40); MCH 33.4 pg (25.7-33.7); MCHC 33.2 g/dl (32.0-35.9); MEAN CELL VOLUME 100.8 fl (80-96); MEAN PLT VOLUME 8.8 fl (7.5-11.1); MONO % 7.5 % (3.8-10.2); NEUT % 63.5 % (42.8-82.8); PLATELET COUNT 241 K/MM3 (134-434); RBC 4.13 M/mm3 (4.00-5.60); WHITE BLOOD COUNT 9.6 K/mm3 (4.0-10.0)
[2017-08-15 22:10] LABS: ALBUMIN 3.6 g/dl (3.4-5.0); ANION GAP 10 (8-16); BLOOD UREA NITROGEN 32 mg/dL (7-18); CALCIUM 8.9 mg/dL (8.5-10.1); CHLORIDE 110 mmol/L (98-107); CO2 20 mmol/L (21-32); CREATININE 1.1 mg/dL (0.7-1.3); GLUCOSE,RANDOM 94 mg/dL (74-106); POTASSIUM 4.5 mmol/L (3.5-5.1); SGOT/AST 19 U/L (15-37); SGPT/ALT 45 U/L (12-78); SODIUM 140 mmol/L (136-145)
[2017-08-15 22:12] LABS: ALK PHOS 65 U/L (45-117); BILIRUBIN,TOTAL 0.3 mg/dL (0.2-1.0); TOT PROT 6.3 g/dl (6.4-8.2)
== END 2017-08-16 00:16 | disposition home or self-care (01) ==
LOC: JER 19:20
PROC: 3E033NZ Introduction of Analgesics, Hypnotics, Sedatives into Peripheral Vein, Percutaneous Approach (ICD-10-PCS; principal; 2017-08-15)
DX: M54.5 Low back pain (principal); G89.29 Other chronic pain; I10 Essential (primary) hypertension; E78.00 Pure hypercholesterolemia, unspecified; I48.0 Paroxysmal atrial fibrillation; J44.9 Chronic obstructive pulmonary disease, unspecified; F41.9 Anxiety disorder, unspecified; N40.0 Benign prostatic hyperplasia without lower urinary tract symptoms; Z87.19 Personal history of other diseases of the digestive system; Z74.01 Bed confinement status
CPT/HCPCS: 36415; 71045-TC; 80053; 85025; 96374; 99283-25

== ENCOUNTER 2017-09-19 13:10 | Observation (INO) | payer OTHER, BC ==
--- NOTE | 2017-09-19 14:43 | PDOC ---
History of Present Illness - History of Present Illness Initial Comments: 09/19/17 18:46 Patient is a 72 year old male with a significant past medical history of hypertension, hyperlipidemia, paroxysmal Afib, COPD, chronic lower back pain, s /p spinal fusion/laminectomy with surgery done 04/2017 Diverticulitis, IBS, hemorrhoids, Enlarged Prostate, Hypercholesterolemia, And Depression/Anxiety, who presents to the ED with complaints of left leg numbness that began 6 months ago. Patient reports experiencing left leg numbness for 6 months that is essentially unchanged but he has been frsutrated that it is not getting better. he has had multiple hospital visits including one recently at [facility] where he was transferred to [facility], and [facility] to with his PMD/back dotor. He reports being scheduled for a procedure next with Dr. Queen and Dr. Dooley, but came in today due increased intensity of symptoms and fear that he will not be able to make it due to his weakness. Patient reports experiencing episodes of dizziness and nausea, stating he felt like he was going to pass out this morning. No recent trauma or falls. Pt denies any urinary or bowel incontinence. No syncope. Denies nausea, vomiting. Denies fevers, headache, Denies contact with sick individuals, out of state travelling. Denies diarrhea, dysuria, hematuria. Denies any other symptoms. Allergies: Social history: Former smoker (Last 1969), No alcohol. No illicit drugs. Surgical history: Hernia Repair, Hemorrhoids/Anal ulcer, right UVJ Stent, Lumbar Back Surgery x2 PMD: None Neuro: Dr. Queen <Amador Contreras - Last Filed: 09/19/17 18:45> <Roxie Last - Last Filed: 09/20/17 20:46> - General History Source: Patient Exam Limitations: No Limitations <Bridger Padgett - Last Filed: 09/26/17 08:09> - General Chief Complaint: Back Pain Stated Complaint: NUMBNESS LEGS Time Seen by Provider: 09/19/17 14:04 Past History <Amador Contreras - Last Filed: 09/19/17 18:45> <Roxie Last - Last Filed: 09/20/17 20:46> - Past Medical History Anemia: No Asthma: No Cancer: No Cardiac Disorders: Yes (HTN, HLD, Paroxysmal AFib) CVA: (NPH) COPD: Yes CHF: No DVT: No Dementia: No Diabetes: No GI Disorders: Yes (Diverticulitis, IBS, hemorrhoids) Disorders: Yes (Englarged Prostate) HTN: Yes Hypercholesterolemia: Yes Kidney Stones: Yes (s/p Right UVJ Stent placement) Liver Disease: No Psychiatric Problems: Yes (Depression/Anxiety) Seizures: No Thyroid Disease: No - Surgical History Abdominal Surgery: Yes (Hernia Repair) Appendectomy: No Cardiac Surgery: No Cholecystectomy: No GI Surgery: Yes (HEMORRHOIDS/ANAL ULCER, RIGHT UVJ STENT) Lung Surgery: No Neurologic Surgery: No Orthopedic Surgery: Yes (Lumbar Back Surgery x2) - Immunization History Immunization Up to Date: Yes - Suicide/Smoking/Psychosocial Hx Smoking Status: No Smoking History: Former smoker Years of Tobacco Use: 20 Have you smoked in the past 12 months: No Number of Cigarettes Smoked Daily: 0 If you are a former smoker, when did you quit?: 1970 Information on smoking cessation initiated: No 'Breaking Loose' booklet given: 09/08/13 Hx Alcohol Use: No Drug/Substance Use Hx: No Substance Use Type: None Hx Substance Use Treatment: No <Bridger Padgett - Last Filed: 09/26/17 08:09> - Past Medical History Allergies/Adverse Reactions: Allergies Allergy/AdvReac Type Severity Reaction Status Date / Time pregabalin [From Lyrica] Allergy Mild Verified 09/19/17 13:39 pravastatin sodium Allergy Unknown Verified 09/19/17 13:39 [From Pravachol] morphine Allergy Verified 09/19/17 13:39 peanut Allergy Verified 09/19/17 13:39 Penicillins Allergy Verified 09/19/17 13:39 lactose AdvReac Nausea Verified 09/19/17 13:39 Home Medications: Ambulatory Orders Lisinopril [Prinivil -] 20 mg PO BID 07/06/17 Oxycodone HCl/Acetaminophen [Percocet 5-325 mg Tablet] 1 tab PO Q6H PRN MDD 3 Alprazolam [Xanax] 2.5 mg PO BID 07/22/17 Acetaminophen [Tylenol .Regular Strength -] 325 mg PO Q6H PRN tablet 09/24/17 Amlodipine Besylate [Norvasc -] 5 mg PO DAILY #30 tablet 09/24/17 Sennosides [Senna -] 1 tab PO BID #60 tablet 09/24/17 Review of Systems - Review of Systems Able to Perform ROS?: Yes Comments:: 09/19/17 18:46 CONSTITUTIONAL: No reported: Fever, Diaphoresis, Generalized Weakness, Malaise, Loss of Appetite HEENT: No reported: Rhinorrhea, Nasal Congestion, Throat Pain, Throat Swelling, Difficulty Swallowing, Mouth Swelling, Ear Pain, Eye Pain, Visual Changes CARDIOVASCULAR +Lightheadedness, No reported: Chest Pain, Syncope, Palpitations, Irregular Heart Rate, Peripheral Edema RESPIRATORY: No reported: Cough, Shortness of Breath, SOB with Exertion, Orthopnea, Wheezing , Stridor, Hemoptysis GASTROINTESTINAL: No reported: Abdominal pain, Abdominal Distension, Nausea, Vomiting, Diarrhea, Constipation, Melena, Hematochezia GENITOURINARY: No reported: Dysuria, Frequency, Urgency, Hesitancy, Flank Pain, Genital Pain MUSCULOSKELETAL: No reported: Myalgia, Arthralgia, Joint Swelling, Back pain, Neck Pain SKIN: No reported: Rash, Itching, Pallor HEMATOLOGIC/IMMUNOLOGIC: No reported: Easy Bleeding, Easy Bruising, Lymphadenopathy, Frequent infections ENDOCRINE: No reported: Unexplained Weight Gain, Unexplained Weight Loss, Heat Intolerance , Cold Intolerance NEUROLOGIC: +Left leg numbness/weakness No reported: Headache, Focal Weakness, Paresthesias, Vertigo, Lightheadedness, Unsteady Gait, Seizure, Mental Status Changes, Incontinence PSYCHIATRIC: No reported: Anxiety, Depression <Amador Contreras - Last Filed: 09/19/17 18:45> *Physical Exam - Vital Signs Last Vital Signs Temp Pulse Resp BP Pulse Ox 97.9 F 59 L 18 114/71 96 09/19/17 13:10 09/19/17 13:10 09/19/17 13:10 09/19/17 13:10 09/19/17 13:10 - Physical Exam Comments: 09/19/17 18:46 GENERAL: The patient is awake, alert, and fully oriented, Nontoxic - in no acute distress. HEAD: Normocephalic, atraumatic. EYES: extraocular movements intact, sclera anicteric, conjunctiva clear. ENT: Normal voice, Moist mucous membranes. NECK: Normal range of motion, supple LUNGS: Breath sounds equal, clear to auscultation bilaterally. No wheezes, no rhonchi, no rales. HEART: Regular rate and rhythm, normal S1 and S2 without murmur, rub or gallop. ABDOMEN: Soft, nontender, normoactive bowel sounds. No guarding, no rebound. . No CVA tenderness BACK: No focal tenderness in the back EXTREMITIES: Normal range of motion, no edema. No clubbing or cyanosis. No cords, erythema, or tenderness. NEUROLOGICAL: Strength 1/5 in LLE, senesation deminished, strenth 5-/5 in RLE, sensation nromal, atrophied b/l LE. PSYCH: Normal mood, normal affect. SKIN: Warm, Dry, normal turgor, <Amador Contreras - Last Filed: 09/19/17 18:45> - Vital Signs Last Vital Signs Temp Pulse Resp BP Pulse Ox 97.9 F 59 L 18 114/71 96 09/19/17 13:10 09/19/17 13:10 09/19/17 13:10 09/19/17 13:10 09/19/17 13:10 <Roxie Last - Last Filed: 09/20/17 20:46> - Vital Signs Last Vital Signs Temp Pulse Resp BP Pulse Ox 97.9 F 59 L 18 114/71 96 09/19/17 13:10 09/19/17 13:10 09/19/17 13:10 09/19/17 13:10 09/19/17 13:10 <Bridger Padgett - Last Filed: 09/26/17 08:09> Heart Score/ECG Review - ECG Impressions Comment:: 09/19/17 17:13 Twelve-lead EKG was performed and reviewed by me. There is normal sinus rhythm with a normal rate. rate of 96 Left axis devaition LBBB <Bridger Padgett - Last Filed: 09/26/17 08:09> ED Treatment Course - LABORATORY CBC & Chemistry Diagram: 09/19/17 14:55 09/19/17 14:55 - ADDITIONAL ORDERS Additional order review: Laboratory Results 09/19/17 14:55 Sodium Cancelled Potassium Cancelled Chloride Cancelled Carbon Dioxide Cancelled Anion Gap Cancelled BUN Cancelled Creatinine Cancelled Creat Clearance w eGFR Cancelled Random Glucose Cancelled Calcium Cancelled Total Bilirubin Cancelled AST Cancelled ALT Cancelled Alkaline Phosphatase Cancelled Creatine Kinase Cancelled Troponin I Cancelled Total Protein Cancelled Albumin Cancelled 09/19/17 14:55 RBC 3.91 L MCV 101.0 H MCHC 33.3 RDW 15.0 MPV 8.7 Neutrophils % 74.9 Lymphocytes % 12.6 D Monocytes % 7.8 Eosinophils % 3.5 D Basophils % 1.2 - Medications Given in the ED: ED Medications Discontinued Medications Generic Name Dose Route Start Last Admin Trade Name Freq PRN Reason Stop Dose Admin Diphenhydramine HCl 25 mg 09/19/17 14:44 09/19/17 15:06 Benadryl - PO 09/19/17 14:45 25 mg ONCE ONE Administration <Amador Contreras - Last Filed: 09/19/17 18:45> - LABORATORY CBC & Chemistry Diagram: 09/19/17 14:55 09/19/17 19:25 - ADDITIONAL ORDERS Additional order review: Laboratory Results 09/19/17 09/19/17 19:25 14:55 Sodium 140 Cancelled Potassium 4.2 Cancelled Chloride 105 Cancelled Carbon Dioxide 25 D Cancelled Anion Gap 10 Cancelled BUN 30 H Cancelled Creatinine 1.2 Cancelled Creat Clearance w eGFR 59.18 Cancelled Random Glucose 107 H Cancelled Calcium 9.1 Cancelled Total Bilirubin 0.4 D Cancelled AST 13 L D Cancelled ALT 40 Cancelled Alkaline Phosphatase 81 D Cancelled Creatine Kinase Cancelled Troponin I Cancelled Total Protein 6.3 L Cancelled Albumin 3.7 Cancelled 09/19/17 14:55 RBC 3.91 L MCV 101.0 H MCHC 33.3 RDW 15.0 MPV 8.7 Neutrophils % 74.9 Lymphocytes % 12.6 D Monocytes % 7.8 Eosinophils % 3.5 D Basophils % 1.2 - RADIOLOGY Radiology Studies Ordered: Category Date Time Status LUMBAR SPINE CT W/O CONTRAST [CT] Stat CT Scan 09/19/17 22:18 Ordered - Medications Given in the ED: ED Medications Discontinued Medications Generic Name Dose Route Start Last Admin Trade Name Freq PRN Reason Stop Dose Admin Diphenhydramine HCl 25 mg 09/19/17 14:44 09/19/17 15:06 Benadryl - PO 09/19/17 14:45 25 mg ONCE ONE Administration <Roxie Last - Last Filed: 09/20/17 20:46> - LABORATORY CBC & Chemistry Diagram: 09/24/17 08:48 09/24/17 08:48 <Bridger Padgett - Last Filed: 09/26/17 08:09> Medical Decision Making - Medical Decision Making 09/19/17 22:19 I received signout on patient. He has no scheduled studies, as per [facility] fregoso Neurosurg. PITCHING COACH or Dr. Burton. Apparently pt was supposed to schedule a CT myelogram with Dr Bhandari of radiology, and the study was never scheduled. Pt also has not been able to make it to his neurosurgeon's office secondary to non -compliance, weakness, or inability to ambulate. 09/19/17 22:22 Pt is unable to ambulate and he has been getting progressively weaker since his back surgery in Apr. He has visibly smaller circumference upper and lower leg on the left. Pt has marked weakness on the left side. 2/5 weakness. On right 3/5 weakness <Roxie Last - Last Filed: 09/20/17 20:46> - Medical Decision Making 09/19/17 14:45 [id number] hx of htn, hl, pafib, copd, chronic back pain s/p spinal fusion/ laminectomy (apr 2017), presenting with persisetnt L sided leg numbness/ weakness. Pt states the pain hs chronic and unchanged - he was recently admitted at [facility] and transferred to the [facility] who did an MRI and waso told there as something wrong with his nerves. His symptoms have not changed in 6 months, and notes that dr. Manjarrez was supposed to have dr. Bhandari do some procedure next and is concerned he may have difficulty making his appointment on . The pt also notes that he felt alittle lightheaded this morning without associated chest pain, shortness of breath, palpitations, fever/chills, cough, n/v, abdominal pain, diarrhea, melena uriary symptoms. case dw dr. gutierrez service notes the pt had a MRI schedule on that is specialized requests to see if we can do it while he is here as there is consideration that he may have diff[facility]ly [facility] to r/o anemia, metabolic derangement, ekg A portion of this note was documented by scribe services under my direction. I have reviewed the details of the note, within reason, and agree with the documentation with the following case summary and management plan written by me <Bridger Padgett - Last Filed: 09/26/17 08:09> *DC/Admit/Observation/Transfer - Attestations Scribe Attestion: 09/19/17 18:47 Documentation prepared by Amador Contreras, acting as medical billing manager for Bridger Padgett MD, MD/DO. <Amador Contreras - Last Filed: 09/19/17 18:45> - Discharge Dispostion Admit: Yes <Roxie Last - Last Filed: 09/20/17 20:46> <Bridger Padgett - Last Filed: 09/26/17 08:09> Diagnosis at time of Disposition: Weakness, Inability to ambulate due to multiple joints, Left leg weakness - Discharge Dispostion Disposition: VNS/HOME HEALTH CARE Condition at time of disposition: Stable
[2017-09-19] MEDS ORDERED: diphenhydrAMINE HCL 25 MG CAPSULE (FP) PO ONE ×2 (14:44→15:06)
[2017-09-19 15:14] LABS: BASO % 1.2 % (0-2.0); EOS % 3.5 % (0-4.5); HEMATOCRIT 39.5 % (35.4-49); HEMOGLOBIN 13.2 GM/dL (11.7-16.9); LYMPH % 12.6 % (8-40); MCH 33.7 pg (25.7-33.7); MCHC 33.3 g/dl (32.0-35.9); MEAN PLT VOLUME 8.7 fl (7.5-11.1); MONO % 7.8 % (3.8-10.2); NEUT % 74.9 % (42.8-82.8); PLATELET COUNT 236 K/MM3 (134-434); RBC 3.91 M/mm3 (4.00-5.60); WHITE BLOOD COUNT 7.3 K/mm3 (4.0-10.0)
[2017-09-19 19:58] LABS: ALBUMIN 3.7 g/dl (3.4-5.0); ALK PHOS 81 U/L (45-117); ANION GAP 10 (8-16); BILIRUBIN,TOTAL 0.4 mg/dL (0.2-1.0); BLOOD UREA NITROGEN 30 mg/dL (7-18); CALCIUM 9.1 mg/dL (8.5-10.1); CHLORIDE 105 mmol/L (98-107); CO2 25 mmol/L (21-32); CREATININE 1.2 mg/dL (0.7-1.3); GLUCOSE,RANDOM 107 mg/dL (74-106); POTASSIUM 4.2 mmol/L (3.5-5.1); SGOT/AST 13 U/L (15-37); SGPT/ALT 40 U/L (12-78); SODIUM 140 mmol/L (136-145); TOT PROT 6.3 g/dl (6.4-8.2)
[2017-09-20] MEDS ORDERED: SODIUM CHLORIDE 1,000 ML IV SCH (02:45)
--- NOTE | 2017-09-20 03:12 | HP ---
CHIEF COMPLAINT: back pain PCP: HISTORY OF PRESENT ILLNESS: 72 year old male with a PMH of chronic back pain s/p three back surgeries, spinal fusion/laminectomy (apr 2017), presenting with chronic L sided leg pain and weakness. Pt states the pain is chronic and unchanged but much worse since the last surgery. He states that it starts in lower back and is radiating to the left leg, intermittent, 6-10/10. His symptoms have not changed in 6 months. Recently he was admitted to [facility] and transferred to [facility]. He had MRI done and was told thath has nerve damage and there is nothing to do.The pt reports that last time he saw Dr Oneil-neurosurgeon was in July and he has appointment for procedure on (09/25/17). He was afraid that he will not make it so he came to the hospital today. The pt also reports dizziness and nausea, itching earlier today. Dr Queen service was called and according to the REAL ESTATE DEVELOPMENT MANAGER he should be admitted for further evaluation. He lives alone, have home health lvn and states that is bed bound. He denies chest pain, palpitations, SOB, dizziness. He also denies fever, chills , nausea, vomiting, diarrhea. ER course was notable for: (1)benadryl (2)CXR (3)CBC, CMP PAST MEDICAL HISTORY: HTN, HLD, pafib, COPD, Diverticulitis, IBS, hemorrhoids, Enlarged Prostate PAST SURGICAL HISTORY: 3 spine surgeries, hernia repair, right UVJ stent Social History: Smoking:no, quit over 30 years ago Alcohol:no Drugs: no Family History: mother:gallbladder cancer father: lung cancer Allergies pregabalin [From Lyrica] Allergy (Mild, Verified 09/19/17 13:39) pravastatin sodium [From Pravachol] Allergy (Unknown, Verified 09/19/17 13:39) however, pt takes atorvastatin 10 mg daily at home, reportedly without side effects morphine Allergy (Verified 09/19/17 13:39) unknown peanut Allergy (Verified 09/19/17 13:39) Penicillins Allergy (Verified 09/19/17 13:39) unknown affect lactose Adverse Reaction (Verified 09/19/17 13:39) Nausea HOME MEDICATIONS: Home Medications Medication Instructions Recorded Lisinopril [Prinivil -] 20 mg PO BID 07/06/17 Oxycodone HCl/Acetaminophen 1 tab PO Q6H PRN MDD 3 07/07/17 [Percocet 5-325 mg Tablet] Alprazolam [Xanax] 2.5 mg PO BID 07/22/17 REVIEW OF SYSTEMS CONSTITUTIONAL: weight loss Absent: fever, chills, diaphoresis, generalized weakness, malaise, loss of appetite, HEENT: Absent: rhinorrhea, nasal congestion, throat pain, throat swelling, difficulty swallowing, mouth swelling, ear pain, eye pain, visual changes CARDIOVASCULAR: Absent: chest pain, syncope, palpitations, irregular heart rate, lightheadedness , peripheral edema RESPIRATORY: Absent: cough, shortness of breath, dyspnea with exertion, orthopnea, wheezing, GASTROINTESTINAL: Absent: abdominal pain, abdominal distension, nausea, vomiting, diarrhea, constipation, GENITOURINARY: Absent: dysuria, frequency, urgency, hesitancy, hematuria, flank pain, MUSCULOSKELETAL: back pain, leg pain, Absent: myalgia, joint swelling, neck pain SKIN: Absent: rash, itching, pallor HEMATOLOGIC/IMMUNOLOGIC: Absent: easy bleeding, easy bruising, lymphadenopathy, frequent infections ENDOCRINE: Absent: unexplained weight gain, unexplained weight loss, heat intolerance, cold intolerance NEUROLOGIC: focal weakness or paresthesias, unsteady gait, Absent: headache, dizziness, seizure, mental status changes, bladder or bowel incontinence PSYCHIATRIC: Absent: anxiety, depression, PHYSICAL EXAMINATION Vital Signs - 24 hr 09/19/17 13:10 Temperature 97.9 F Pulse Rate 59 L Respiratory 18 Rate Blood Pressure 114/71 O2 Sat by Pulse 96 Oximetry (%) GENERAL: Awake, alert, and fully oriented, in no acute distress, lying in bed. HEAD: Normal with no signs of trauma. EYES: Pupils equal, round and reactive to light, extraocular movements intact, sclera anicteric, conjunctiva clear. EARS, NOSE, THROAT: Ears normal, nares patent, oropharynx clear without exudates. Dry mucous membranes. NECK: Normal range of motion, supple without lymphadenopathy, JVD. LUNGS: Breath sounds equal, clear to auscultation bilaterally. No wheezes, and no crackles. No accessory muscle use. HEART: Regular rate and rhythm, normal S1 and S2 without murmur, rub or gallop. ABDOMEN: Soft, nontender, not distended, normoactive bowel sounds, no guarding, no rebound, no masses. No hepatomegaly or splenomegaly. MUSCULOSKELETAL: Normal range of motion at all joints, with the exception to left leg the has limited ROM due to pain, tenderness to palpation over LLE. UPPER EXTREMITIES: 2+ pulses, warm. No cyanosis. No clubbing. No peripheral edema. LOWER EXTREMITIES: 2+ pulses, warm. No calf tenderness. No peripheral edema. NEUROLOGICAL: No facial asymmetry, no tongue deviation, sensation decreased in LLE, motor 4.5/5 in upper extremities, 3/5 in LLE, 4/5 in RLE, gait not observed. PSYCHIATRIC: Cooperative. Good eye contact. Appropriate mood and affect. SKIN: Warm, dry, normal turgor, mild redness noted on abdomen. Laboratory Results - last 24 hr 09/19/17 09/19/17 09/19/17 14:55 14:55 19:25 WBC 7.3 RBC 3.91 L Hgb 13.2 Hct 39.5 MCV 101.0 H MCH 33.7 MCHC 33.3 RDW 15.0 Plt Count 236 MPV 8.7 Neutrophils % 74.9 Lymphocytes % 12.6 D Monocytes % 7.8 Eosinophils % 3.5 D Basophils % 1.2 Sodium Cancelled 140 Potassium Cancelled 4.2 Chloride Cancelled 105 Carbon Dioxide Cancelled 25 D Anion Gap Cancelled 10 BUN Cancelled 30 H Creatinine Cancelled 1.2 Creat Clearance w eGFR Cancelled 59.18 Random Glucose Cancelled 107 H Calcium Cancelled 9.1 Total Bilirubin Cancelled 0.4 D AST Cancelled 13 L D ALT Cancelled 40 Alkaline Phosphatase Cancelled 81 D Creatine Kinase Cancelled Troponin I Cancelled Total Protein Cancelled 6.3 L Albumin Cancelled 3.7 ASSESSMENT/PLAN: 72 year old male with a PMH of chronic back pain s/p three back surgeries, spinal fusion/laminectomy (apr 2017), presenting with chronic L sided leg pain and weakness, placed in observation for further neurosurgery evaluation. Back pain: -consulted Neurosurgery, will f/u recommendations -ED ordered CT spine -NPO -type and screen, coags -pain control; continue Percocet A.Fib: -not on medications HTN: -Lisinopril 40 mg daily -monitor HLD: not on home meds DVT PPX: -SCDs -Heparin sQ Dispo: observation in med surg Problem List - Problem (1) Inability to ambulate due to multiple joints Code(s): R26.2 - DIFFICULTY IN WALKING, NOT ELSEWHERE CLASSIFIED (2) Weakness Code(s): R53.1 - WEAKNESS (3) Weakness of left lower extremity Code(s): R29.898 - OT SYMPTOMS AND SIGNS INVOLVING THE MUSCULOSKELETAL SYSTEM (4) Back pain with left-sided radiculopathy Code(s): M54.10 - RADICULOPATHY, SITE UNSPECIFIED (5) Frequent falls Code(s): R29.6 - REPEATED FALLS (6) Leg pain, left Code(s): M79.605 - PAIN IN LEFT LEG (7) S/P laminectomy Code(s): Z98.890 - OTHER SPECIFIED POSTPROCEDURAL STATES (8) Constipation Code(s): K59.00 - CONSTIPATION, UNSPECIFIED (9) Diverticulosis Code(s): K57.90 - DVRTCLOS OF INTEST, PART UNSP, W/O PERF OR ABSCESS W/O BLEED (10) Enlarged prostate Code(s): N40.0 - BENIGN PROSTATIC HYPERPLASIA WITHOUT LOWER URINRY TRACT SYMP (11) HTN (hypertension) Code(s): I10 - ESSENTIAL (PRIMARY) HYPERTENSION Qualifiers: Hypertension type: essential hypertension Qualified Code(s): I10 - Essential (primary) hypertension (12) Hyperlipidemia Code(s): E78.5 - HYPERLIPIDEMIA, UNSPECIFIED Qualifiers: Hyperlipidemia type: unspecified Qualified Code(s): E78.5 - Hyperlipidemia , unspecified Visit type - Emergency Visit Emergency Visit: Yes ED Registration Date: 09/19/17 Care time: The patient presented to the Emergency Department on the above date and was hospitalized for further evaluation of their emergent condition. - New Patient This patient is new to me today: Yes Date on this admission: 09/20/17 - Critical Care Critical Care patient: No
--- NOTE | 2017-09-20 03:31 | PN ---
Teaching Attending Note Name of Resident: Leia Stern ATTENDING PHYSICIAN STATEMENT I saw and evaluated the patient. Chart, data, imaging reviewed. I reviewed the resident's note and discussed the case with the resident. I agree with the resident's findings and plan as documented. SUBJECTIVE: 72 year old male with a significant past medical history of HTN, hyperlipidemia , paroxysmal Afib, COPD, BPH, chronic lower back pain, s/p spinal fusion/ laminectomy with surgery done 04/2017. Patient has been immobile since last surgery in april and has been bed bound. He has had pain and numbness in left lower ext for several months. Patient was brought in because of persistent weakness in lower extremities. OBJECTIVE: Last Vital Signs Temp Pulse Resp BP Pulse Ox 97.9 F 59 L 18 114/71 96 09/19/17 13:10 09/19/17 13:10 09/19/17 13:10 09/19/17 13:10 09/19/17 13:10 General- NAD, appears drowsy but answers questions and follows commands HEENT- at, nc, moist oral mucosa Neck- supple CV-s1+s2+ irregular rhythm chest -b/l breath sounds abdomen- soft, NT, BS+ Ext -b/l lower extremity atrophy with muscle wasting and about 3/5 motor in both lower extremities Abnormal Lab Results 09/19/17 09/19/17 14:55 19:25 RBC 3.91 L MCV 101.0 H BUN 30 H Random Glucose 107 H AST 13 L D Total Protein 6.3 L ASSESSMENT AND PLAN: #B/l lower extremity weakness and left leg numbness which is unchanged, however now Pt cannot ambulate and is bedbound. -observation -neurosurgery evaluation -pain control for lower extremity pain #DVT ppx -heparin sc for DVT ppx Continue home medications for chronic medical problems
[2017-09-20 07:09] LABS: INR 1.04 (0.82-1.09); PROTHROMBIN TIME (PATIENT) 11.7 SEC (9.98-11.88)
[2017-09-20 07:12] LABS: ACTIVATED PTT 32.1 SECONDS (26.9-34.4)
[2017-09-20] MEDS ORDERED: LISINOPRIL 20 MG TABLET (FP) ONE (10:02)
[2017-09-20] MEDS ORDERED: HEPARIN NA (PORCINE) 5,000 UNITS/ML 1ML VIAL ONE (10:02)
[2017-09-20] MEDS: HEPARIN NA (PORCINE) 5,000 UNITS/ML 1ML VIAL SQ SCH ×2 (10:11→22:54)
[2017-09-20] MEDS: LISINOPRIL 20 MG TABLET (FP) PO SCH ×2 (10:12→22:54)
--- NOTE | 2017-09-20 12:14 | EKG ---
Test Reason : Blood Pressure : / mmHG Vent. Rate : 096 BPM Atrial Rate : 096 BPM P-R Int : 184 ms QRS Dur : 126 ms QT Int : 368 ms P-R-T Axes : 025 -61 086 degrees QTc Int : 464 ms NORMAL SINUS RHYTHM LEFT AXIS DEVIATION LEFT BUNDLE BRANCH BLOCK ABNORMAL ECG WHEN COMPARED WITH ECG OF 16-JUN-2017 04:32, LEFT BUNDLE BRANCH BLOCK IS NOW PRESENT CRITERIA FOR ANTERIOR INFARCT ARE NO LONGER PRESENT CRITERIA FOR ANTEROLATERAL INFARCT ARE NO LONGER PRESENT CRITERIA FOR INFERIOR INFARCT ARE NO LONGER PRESENT Confirmed by JUSTIN CANALES MD ([id number]) on 09/20/2017 12:14:05 PM Referred By: Confirmed By:JUSTIN CANALES MD
[2017-09-20 18:34] VITALS: BMI 21.7
[2017-09-20] MEDS: ACETAMINOPHEN 325 MG TABLET (FP) PO PRN (18:58)
[2017-09-20] MEDS: oxyCODONE HCL 5 MG TABLET PO PRN (18:58)
--- NOTE | 2017-09-20 22:20 | HOSP ---
Subjective - Review of Symptoms Events since last encounter: Patient continues to have pain, patient states that he continues to have low back pain ,and is unable to ambulate. states that he is bound bed. Otherwise has no new complains. Vital Signs Temperature 98.1 F 09/20/17 18:27 Pulse Rate 83 09/20/17 18:27 Respiratory Rate 20 09/20/17 18:27 Blood Pressure 133/83 09/20/17 18:27 O2 Sat by Pulse Oximetry (%) 95 09/20/17 10:13 CBCD WBC 7.3 K/mm3 (4.0-10.0) 09/19/17 14:55 RBC 3.91 M/mm3 (4.00-5.60) L 09/19/17 14:55 Hgb 13.2 GM/dL (11.7-16.9) 09/19/17 14:55 Hct 39.5 % (35.4-49) 09/19/17 14:55 MCV 101.0 fl (80-96) H 09/19/17 14:55 MCHC 33.3 g/dl (32.0-35.9) 09/19/17 14:55 RDW 15.0 % (11.9-15.9) 09/19/17 14:55 Plt Count 236 K/MM3 (134-434) 09/19/17 14:55 MPV 8.7 fl (7.5-11.1) 09/19/17 14:55 CMP Sodium 140 mmol/L (136-145) 09/19/17 19:25 Potassium 4.2 mmol/L (3.5-5.1) 09/19/17 19:25 Chloride 105 mmol/L (98-107) 09/19/17 19:25 Carbon Dioxide 25 mmol/L (21-32) D 09/19/17 19:25 Anion Gap 10 (8-16) 09/19/17 19:25 BUN 30 mg/dL (7-18) H 09/19/17 19:25 Creatinine 1.2 mg/dL (0.7-1.3) 09/19/17 19:25 Creat Clearance w eGFR 59.18 (>60) 09/19/17 19:25 Random Glucose 107 mg/dL (74-106) H 09/19/17 19:25 Calcium 9.1 mg/dL (8.5-10.1) 09/19/17 19:25 Total Bilirubin 0.4 mg/dL (0.2-1.0) D 09/19/17 19:25 AST 13 U/L (15-37) L D 09/19/17 19:25 ALT 40 U/L (12-78) 09/19/17 19:25 Alkaline Phosphatase 81 U/L (45-117) D 09/19/17 19:25 Total Protein 6.3 g/dl (6.4-8.2) L 09/19/17 19:25 Albumin 3.7 g/dl (3.4-5.0) 09/19/17 19:25 CARDIAC ENZYMES Creatine Kinase Cancelled 09/19/17 14:55 Troponin I Cancelled 09/19/17 14:55 Current Medications Generic Name Dose Route Start Last Admin Trade Name Freq PRN Reason Stop Dose Admin Acetaminophen 325 mg 09/20/17 03:15 09/20/17 18:58 Tylenol - PO 325 mg Q6H PRN Administration PAIN LEVEL 6-10 Heparin Sodium (Porcine) 5,000 unit 09/20/17 10:00 09/20/17 10:11 Heparin - SQ 5,000 unit BID SIENA Administration Sodium Chloride 1,000 mls @ 42 mls/hr 09/20/17 02:45 09/20/17 03:07 Normal Saline - IV 09/21/17 02:34 42 mls/hr ASDIR SIENA Administration Lisinopril 20 mg 09/20/17 10:00 09/20/17 10:12 Prinivil PO 20 mg BID SIENA Administration Oxycodone HCl 5 mg 09/20/17 03:15 09/20/17 18:58 Roxicodone - PO 5 mg Q6H PRN Administration PAIN LEVEL 6-10 Home Medications Medication Instructions Recorded Lisinopril [Prinivil -] 20 mg PO BID 07/06/17 Oxycodone HCl/Acetaminophen 1 tab PO Q6H PRN MDD 3 07/07/17 [Percocet 5-325 mg Tablet] Alprazolam [Xanax] 2.5 mg PO BID 07/22/17 Physical Examination Vital Signs: Vital Signs Temperature 98.1 F 09/20/17 18:27 Pulse Rate 83 09/20/17 18:27 Respiratory Rate 20 09/20/17 18:27 Blood Pressure 133/83 09/20/17 18:27 O2 Sat by Pulse Oximetry (%) 95 09/20/17 10:13 Labs: CBC, BMP 09/19/17 14:55 09/19/17 19:25
[2017-09-21] MEDS: oxyCODONE HCL 5 MG TABLET PO PRN ×3 (00:48→21:14)
[2017-09-21] MEDS: ACETAMINOPHEN 325 MG TABLET (FP) PO PRN ×3 (00:49→21:13)
--- NOTE | 2017-09-21 07:50 | PN ---
<Alexis Blancas - Last Filed: 09/21/17 19:34> Physical Exam: SUBJECTIVE: Patient seen and examined at bedside.left leg pain is controlled 2/ 10 , still complain of numbness and tingling , denies any fever, chills, N/V/D/ C. denies any chest pain , sob. OBJECTIVE: Vital Signs Period Temp Pulse Resp BP Sys/Suazo Pulse Ox Last 24 Hr 98.1 F 80-83 16-20 120-133/75-83 95-95 GENERAL: The patient is awake, alert, and fully oriented, in no acute distress. HEAD: Normal with no signs of trauma. EYES: sclera anicteric, conjunctiva clear. ENT: moist mucous membranes. NECK: full range of motion, supple. LUNGS: Breath sounds equal, clear to auscultation bilaterally, no wheezes, no crackles, no accessory muscle use. HEART: Regular rate and rhythm, S1, S2 without murmur, rub or gallop. ABDOMEN: Soft, nontender, nondistended, normoactive bowel sounds, no guarding, no rebound, EXTREMITIES: 2+ pulses, warm, well-perfused, no edema. left foot drop, sensation decreased in left leg. strength 3/5 on left leg, 4/5 on right leg. sensation intact in upper ext, strength 5/5 B/L upper ext. NEUROLOGICAL: no focal deficit. Normal speech, gait not observed. PSYCH: Normal mood, normal affect. SKIN: Warm, dry, Laboratory Results - last 24 hr 09/20/17 06:19 Blood Type O NEGATIVE Antibody Screen Negative Active Medications Generic Name Dose Route Start Last Admin Trade Name Urbanq PRN Reason Stop Dose Admin Acetaminophen 325 mg 09/20/17 03:15 09/21/17 00:49 Tylenol - PO 325 mg Q6H PRN Administration PAIN LEVEL 6-10 Heparin Sodium (Porcine) 5,000 unit 09/20/17 10:00 09/20/17 22:54 Heparin - SQ 5,000 unit BID SIENA Administration Lisinopril 20 mg 09/20/17 10:00 09/20/17 22:54 Prinivil PO 20 mg BID SIENA Administration Oxycodone HCl 5 mg 09/20/17 03:15 09/21/17 00:48 Roxicodone - PO 5 mg Q6H PRN Administration PAIN LEVEL 6-10 CBC, BMP 09/19/17 14:55 09/19/17 19:25 ASSESSMENT/PLAN: 72 year old male with a PMH of chronic back pain s/p three back surgeries, spinal fusion/laminectomy (apr 2017), presenting with chronic L sided leg pain and weakness, placed in observation for further neurosurgery evaluation. # B/l lower extremity weakness and left leg numbness chronic * Pt cannot ambulate and is bed bound. * consulted Neurosurgery, will f/u recommendations * CT spine pending reading * type and screen, coags * pain control; oxycodone 5 mg po q6hr . Tylenol 325 mg po Q6hr #A.Fib: * not on medications #HTN: * Lisinopril 20 bid mg daily * monitor BP closely #HLD: * not on home meds #PPX: * DVT :SCDs ,Heparin sQ TID * GI: no need for now #Dispo: observation in med surg Visit type - Emergency Visit Emergency Visit: Yes ED Registration Date: 09/19/17 Care time: The patient presented to the Emergency Department on the above date and was hospitalized for further evaluation of their emergent condition. - New Patient This patient is new to me today: Yes Date on this admission: 09/21/17 - Critical Care Critical Care patient: No <Gunjan Dumont - Last Filed: 09/22/17 19:36> Physical Exam: patient and examined. Discussed with Savanna the PHOTOGRAPHER HELPER, wants to order Myelogram of L-spine and thoracic spine .
[2017-09-21] MEDS: HEPARIN NA (PORCINE) 5,000 UNITS/ML 1ML VIAL SQ SCH ×2 (09:40→21:13)
[2017-09-21] MEDS: LISINOPRIL 20 MG TABLET (FP) PO SCH ×2 (09:40→21:13)
[2017-09-22 07:21] LABS: HEMATOCRIT 35.5 % (35.4-49); HEMOGLOBIN 11.9 GM/dL (11.7-16.9); MCH 33.9 pg (25.7-33.7); MCHC 33.6 g/dl (32.0-35.9); MEAN CELL VOLUME 100.8 fl (80-96); MEAN PLT VOLUME 8.4 fl (7.5-11.1); PLATELET COUNT 226 K/MM3 (134-434); RBC 3.52 M/mm3 (4.00-5.60); RDW 15.1 % (11.9-15.9); WHITE BLOOD COUNT 7.2 K/mm3 (4.0-10.0)
[2017-09-22 08:14] LABS: ALBUMIN 3.3 g/dl (3.4-5.0); ANION GAP 8 (8-16); BILIRUBIN,TOTAL 0.6 mg/dL (0.2-1.0); CALCIUM 8.7 mg/dL (8.5-10.1); CHLORIDE 107 mmol/L (98-107); CO2 26 mmol/L (21-32); GLUCOSE,RANDOM 86 mg/dL (74-106); POTASSIUM 4.2 mmol/L (3.5-5.1); SGOT/AST 16 U/L (15-37); SODIUM 141 mmol/L (136-145); TOT PROT 5.8 g/dl (6.4-8.2)
[2017-09-22 08:19] LABS: ALK PHOS 78 U/L (45-117); BLOOD UREA NITROGEN 18 mg/dL (7-18); SGPT/ALT 36 U/L (12-78)
[2017-09-22] MEDS: LISINOPRIL 20 MG TABLET (FP) PO SCH ×2 (09:49→22:57)
[2017-09-22] MEDS: HEPARIN NA (PORCINE) 5,000 UNITS/ML 1ML VIAL SQ SCH (09:49)
[2017-09-22] MEDS: oxyCODONE HCL 5 MG TABLET PO PRN (18:43)
[2017-09-22] MEDS: ACETAMINOPHEN 325 MG TABLET (FP) PO PRN (18:43)
--- NOTE | 2017-09-22 19:40 | PN ---
Progress Note (short form) - Note Progress Note: Patient is comfortable, no acute changes, no shortness of breath. Vital Signs Temperature 97.6 F 09/22/17 15:32 Pulse Rate 88 09/22/17 15:32 Respiratory Rate 20 09/22/17 15:32 Blood Pressure 107/69 09/22/17 15:32 O2 Sat by Pulse Oximetry (%) 95 09/22/17 09:00 GENERAL: The patient is awake, alert, and fully oriented, in no acute distress. HEAD: Normal with no signs of trauma. EYES: sclera anicteric, conjunctiva clear. ENT: moist mucous membranes. NECK: full range of motion, supple. LUNGS: Breath sounds equal, clear to auscultation bilaterally, no wheezes, no crackles, no accessory muscle use. HEART: Regular rate and rhythm, S1, S2 without murmur, rub or gallop. ABDOMEN: Soft, nontender, nondistended, normoactive bowel sounds, no guarding, no rebound, EXTREMITIES: 2+ pulses, warm, well-perfused, no edema. left foot drop, sensation decreased in left leg. strength 3/5 on left leg, 4/5 on right leg. sensation intact in upper ext, strength 5/5 B/L upper ext. NEUROLOGICAL: no focal deficit. Normal speech, gait not observed since the patient is bedridden. PSYCH: Normal mood, normal affect. SKIN: Warm, dry. CBCD WBC 7.2 K/mm3 (4.0-10.0) 09/22/17 06:30 RBC 3.52 M/mm3 (4.00-5.60) L 09/22/17 06:30 Hgb 11.9 GM/dL (11.7-16.9) 09/22/17 06:30 Hct 35.5 % (35.4-49) 09/22/17 06:30 MCV 100.8 fl (80-96) H 09/22/17 06:30 MCHC 33.6 g/dl (32.0-35.9) 09/22/17 06:30 RDW 15.1 % (11.9-15.9) 09/22/17 06:30 Plt Count 226 K/MM3 (134-434) 09/22/17 06:30 MPV 8.4 fl (7.5-11.1) 09/22/17 06:30 CMP Sodium 141 mmol/L (136-145) 09/22/17 06:30 Potassium 4.2 mmol/L (3.5-5.1) 09/22/17 06:30 Chloride 107 mmol/L (98-107) 09/22/17 06:30 Carbon Dioxide 26 mmol/L (21-32) 09/22/17 06:30 Anion Gap 8 (8-16) 09/22/17 06:30 BUN 18 mg/dL (7-18) D 09/22/17 06:30 Creatinine 1.0 mg/dL (0.7-1.3) 09/22/17 06:30 Creat Clearance w eGFR > 60 (>60) 09/22/17 06:30 Random Glucose 86 mg/dL (74-106) 09/22/17 06:30 Calcium 8.7 mg/dL (8.5-10.1) 09/22/17 06:30 Total Bilirubin 0.6 mg/dL (0.2-1.0) D 09/22/17 06:30 AST 16 U/L (15-37) D 09/22/17 06:30 ALT 36 U/L (12-78) 09/22/17 06:30 Alkaline Phosphatase 78 U/L (45-117) 09/22/17 06:30 Total Protein 5.8 g/dl (6.4-8.2) L 09/22/17 06:30 Albumin 3.3 g/dl (3.4-5.0) L 09/22/17 06:30 CARDIAC ENZYMES Creatine Kinase Cancelled 09/19/17 14:55 Troponin I Cancelled 09/19/17 14:55 Current Medications Generic Name Dose Route Start Last Admin Trade Name Freq PRN Reason Stop Dose Admin Acetaminophen 325 mg 09/20/17 03:15 09/22/17 18:43 Tylenol - PO 325 mg Q6H PRN Administration PAIN LEVEL 6-10 Docusate Sodium 100 mg 09/22/17 22:00 Colace - PO TID SIENA Heparin Sodium (Porcine) 5,000 unit 09/20/17 10:00 09/22/17 09:49 Heparin - SQ 5,000 unit BID SIENA Administration Lisinopril 20 mg 09/20/17 10:00 09/22/17 09:49 Prinivil PO 20 mg BID SIENA Administration Oxycodone HCl 5 mg 09/20/17 03:15 09/22/17 18:43 Roxicodone - PO 5 mg Q6H PRN Administration PAIN LEVEL 6-10 Home Medications Medication Instructions Recorded Lisinopril [Prinivil -] 20 mg PO BID 07/06/17 Oxycodone HCl/Acetaminophen 1 tab PO Q6H PRN MDD 3 07/07/17 [Percocet 5-325 mg Tablet] Alprazolam [Xanax] 2.5 mg PO BID 07/22/17 A/p: Patient is a 72 year old male with a significant past medical history of HTN, hyperlipidemia, paroxysmal Afib, COPD, BPH, chronic lower back pain, s/p spinal fusion/laminectomy with surgery done 04/2017. Patient has been immobile since last surgery in april and has been bed bound. # B/l lower extremity weakness which is unchanged and patient is unable to ambulate and is bedbound. Consulted neurosurgery , patient is going for Myelogram in am of L-pine and thoracic spine. continue pain medications. #DVT ppx :heparin Continue home medications for chronic medical problems also discussed with the nurse practitioner of wants to order Myelogram of LS pine and thoracic spine. Visit type - Emergency Visit Emergency Visit: Yes ED Registration Date: 09/19/17 Care time: The patient presented to the Emergency Department on the above date and was hospitalized for further evaluation of their emergent condition. - New Patient This patient is new to me today: No - Critical Care Critical Care patient: No - Discharge Referral Referred to [facility] Med P.C.: No
[2017-09-22] MEDS: DOCUSATE SODIUM 100 MG CAPSULE (FP) PO SCH (22:57)
[2017-09-23] MEDS: DOCUSATE SODIUM 100 MG CAPSULE (FP) PO SCH ×2 (06:05→14:28)
[2017-09-23] MEDS: LISINOPRIL 20 MG TABLET (FP) PO SCH ×2 (09:06→23:14)
--- NOTE | 2017-09-23 13:27 | PN ---
Physical Exam: SUBJECTIVE: Patient seen and examined at bedside. No acute events over night. still complaining of nubness, tingling, weakness in LLE. OBJECTIVE: Vital Signs Period Temp Pulse Resp BP Sys/Suazo Pulse Ox Last 24 Hr 97.6 F-98.4 F 79-92 16-24 107-129/69-82 95-95 GENERAL: The patient is awake, alert, and fully oriented, in no acute distress. HEAD: Normal with no signs of trauma. EYES: sclera anicteric, conjunctiva clear. ENT: moist mucous membranes. NECK: full range of motion, supple. LUNGS: Breath sounds equal, clear to auscultation bilaterally, no wheezes, no crackles, no accessory muscle use. HEART: Regular rate and rhythm, S1, S2 without murmur, rub or gallop. ABDOMEN: Soft, nontender, nondistended, normoactive bowel sounds, no guarding, no rebound, EXTREMITIES: 2+ pulses, warm, well-perfused, no edema. left foot drop, sensation decreased in left leg. strength 3/5 on left leg, 4/5 on right leg. sensation intact in upper ext, strength 5/5 B/L upper ext. NEUROLOGICAL: no focal deficit. Normal speech, gait not observed. PSYCH: Normal mood, normal affect. SKIN: Warm, dry, Active Medications Generic Name Dose Route Start Last Admin Trade Name Freq PRN Reason Stop Dose Admin Acetaminophen 325 mg 09/20/17 03:15 09/22/17 18:43 Tylenol - PO 325 mg Q6H PRN Administration PAIN LEVEL 6-10 Docusate Sodium 100 mg 09/22/17 22:00 09/23/17 06:05 Colace - PO Not Given TID [facility] Heparin Sodium (Porcine) 5,000 unit 09/20/17 10:00 09/22/17 09:49 Heparin - SQ 5,000 unit BID SIENA Administration Lisinopril 20 mg 09/20/17 10:00 09/23/17 09:06 Prinivil PO 20 mg BID SIENA Administration Oxycodone HCl 5 mg 09/20/17 03:15 09/22/17 18:43 Roxicodone - PO 5 mg Q6H PRN Administration PAIN LEVEL 6-10 CBC, BMP 09/22/17 06:30 09/22/17 06:30 ASSESSMENT/PLAN: 72 year old male with a PMH of chronic back pain s/p three back surgeries, spinal fusion/laminectomy (apr 2017), presenting with chronic L sided leg pain and weakness, placed in observation for further neurosurgery evaluation. # B/l lower extremity weakness and left leg numbness chronic * Pt cannot ambulate and is bed bound. * consulted Neurosurgery, will f/u recommendations * CT spine pending reading * type and screen, coags * pain control; oxycodone 5 mg po q6hr . Tylenol 325 mg po Q6hr #A.Fib: * not on medications #HTN: * Lisinopril 20 bid mg daily * monitor BP closely #HLD: * not on home meds #PPX: * DVT :SCDs ,Heparin sQ TID * GI: no need for now #Dispo: observation in med surg Visit type - Emergency Visit Emergency Visit: Yes ED Registration Date: 09/19/17 Care time: The patient presented to the Emergency Department on the above date and was hospitalized for further evaluation of their emergent condition. - New Patient This patient is new to me today: No - Critical Care Critical Care patient: No
[2017-09-23] MEDS: SENNOSIDES 8.6MG TABLET (FP) PO SCH ×2 (17:58→23:15)
--- NOTE | 2017-09-23 18:06 | PN ---
Teaching Attending Note Name of Resident: Alexis Blancas ATTENDING PHYSICIAN STATEMENT I saw and evaluated the patient. I reviewed the resident's note and discussed the case with the resident. I agree with the resident's findings and plan as documented. SUBJECTIVE: Patient is comfortable with no acute distress, no shortness of breath, no nausea or vomiting, no new changes. OBJECTIVE: Vital Signs Temperature 97.5 F L 09/23/17 16:30 Pulse Rate 86 09/23/17 16:30 Respiratory Rate 20 09/23/17 16:30 Blood Pressure 148/70 09/23/17 16:30 O2 Sat by Pulse Oximetry (%) 95 09/23/17 09:00 CBCD WBC 7.2 K/mm3 (4.0-10.0) 09/22/17 06:30 RBC 3.52 M/mm3 (4.00-5.60) L 09/22/17 06:30 Hgb 11.9 GM/dL (11.7-16.9) 09/22/17 06:30 Hct 35.5 % (35.4-49) 09/22/17 06:30 MCV 100.8 fl (80-96) H 09/22/17 06:30 MCHC 33.6 g/dl (32.0-35.9) 09/22/17 06:30 RDW 15.1 % (11.9-15.9) 09/22/17 06:30 Plt Count 226 K/MM3 (134-434) 09/22/17 06:30 MPV 8.4 fl (7.5-11.1) 09/22/17 06:30 CMP Sodium 141 mmol/L (136-145) 09/22/17 06:30 Potassium 4.2 mmol/L (3.5-5.1) 09/22/17 06:30 Chloride 107 mmol/L (98-107) 09/22/17 06:30 Carbon Dioxide 26 mmol/L (21-32) 09/22/17 06:30 Anion Gap 8 (8-16) 09/22/17 06:30 BUN 18 mg/dL (7-18) D 09/22/17 06:30 Creatinine 1.0 mg/dL (0.7-1.3) 09/22/17 06:30 Creat Clearance w eGFR > 60 (>60) 09/22/17 06:30 Random Glucose 86 mg/dL (74-106) 09/22/17 06:30 Calcium 8.7 mg/dL (8.5-10.1) 09/22/17 06:30 Total Bilirubin 0.6 mg/dL (0.2-1.0) D 09/22/17 06:30 AST 16 U/L (15-37) D 09/22/17 06:30 ALT 36 U/L (12-78) 09/22/17 06:30 Alkaline Phosphatase 78 U/L (45-117) 09/22/17 06:30 Total Protein 5.8 g/dl (6.4-8.2) L 09/22/17 06:30 Albumin 3.3 g/dl (3.4-5.0) L 09/22/17 06:30 CARDIAC ENZYMES Creatine Kinase Cancelled 09/19/17 14:55 Troponin I Cancelled 09/19/17 14:55 Current Medications Generic Name Dose Route Start Last Admin Trade Name Freq PRN Reason Stop Dose Admin Acetaminophen 325 mg 09/20/17 03:15 09/22/17 18:43 Tylenol - PO 325 mg Q6H PRN Administration PAIN LEVEL 6-10 Heparin Sodium (Porcine) 5,000 unit 09/20/17 10:00 09/22/17 09:49 Heparin - SQ 5,000 unit BID SIENA Administration Lisinopril 20 mg 09/20/17 10:00 09/23/17 09:06 Prinivil PO 20 mg BID SIENA Administration Oxycodone HCl 5 mg 09/20/17 03:15 09/22/17 18:43 Roxicodone - PO 5 mg Q6H PRN Administration PAIN LEVEL 6-10 Senna 1 tab 09/23/17 18:00 09/23/17 17:58 Senna - PO 1 tab BID SIENA Administration Home Medications Medication Instructions Recorded Lisinopril [Prinivil -] 20 mg PO BID 07/06/17 Oxycodone HCl/Acetaminophen 1 tab PO Q6H PRN MDD 3 07/07/17 [Percocet 5-325 mg Tablet] Alprazolam [Xanax] 2.5 mg PO BID 07/22/17 PE: per resident's note ASSESSMENT AND PLAN: Patient is a 72 year old male with a significant past medical history of HTN, hyperlipidemia, paroxysmal Afib, COPD, BPH, chronic lower back pain, s/p spinal fusion/laminectomy with surgery done 04/2017. Patient has been immobile since last surgery in april and has been bed bound. # B/l lower extremity weakness continues which is unchanged , patient is bedbound. Ordered CT Myelogram of L-pine and thoracic spine. Please follow the result and try to contact for further management and care. continue pain medications. # HTN uncontrolled will add Norvasc 5mg to his regimen. # Chronic constipation due to pain meds, Oxycodone continue Senna #DVT ppx :heparin
[2017-09-23] MEDS: amLODIPine BESYLATE 5 MG TABLET (FP) PO SCH ×2 (18:39→23:14)
--- NOTE | 2017-09-23 18:49 | CONSULT ---
Consult - text type - Consultation Consultation Note: Patient is 72 year old male with a past surgical history of several back surgeries, s/p spinal fusion/Laminectomy (Apr, 2017). He was seen and evaluated at bedside and complained of chronic lower back pain with lower extremity weakness. He also reported left leg pain; foot drop; numbness and tingling; and weakness. He stated that he has been bed bound since returning home from rehabilitation due to his inability to fully participate in physical therapy due to pain. He also declined home physical therapy upon discharge. He currently has a home health aide who assist him with his ADLs. He underwent a Thoracic/Lumbar myelogram which was reviewed by Dr. uQeen. Further plan of care and treatment will be addressed by Dr. Queen at at a later date as there were nothing mandating immediate, or even inpatient action. 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 Plan: Review of Thoracic/Lumbar Myelogram by Dr. Queen - There were nothing mandating immediate, or even inpatient action at this time Discharge planning by case management/medical team Would recommend physical therapy
[2017-09-23] MEDS ORDERED: SENNOSIDES/DOCUSATE COMBO (SENNA PLUS) TABLET (UD) PO SCH (22:00)
[2017-09-23] MEDS: HEPARIN NA (PORCINE) 5,000 UNITS/ML 1ML VIAL SQ SCH (23:20)
[2017-09-24 07:47] VITALS: BP 118/73; PULSE 87; TEMP 98
[2017-09-24 09:12] LABS: HEMATOCRIT 39.1 % (35.4-49); HEMOGLOBIN 13.1 GM/dL (11.7-16.9); MCH 33.8 pg (25.7-33.7); MCHC 33.4 g/dl (32.0-35.9); MEAN PLT VOLUME 8.1 fl (7.5-11.1); PLATELET COUNT 223 K/MM3 (134-434); RBC 3.87 M/mm3 (4.00-5.60); WHITE BLOOD COUNT 7.5 K/mm3 (4.0-10.0)
[2017-09-24] MEDS: LISINOPRIL 20 MG TABLET (FP) PO SCH (09:43)
[2017-09-24] MEDS: SENNOSIDES 8.6MG TABLET (FP) PO SCH (09:43)
[2017-09-24] MEDS: amLODIPine BESYLATE 5 MG TABLET (FP) PO SCH (09:43)
[2017-09-24] MEDS: HEPARIN NA (PORCINE) 5,000 UNITS/ML 1ML VIAL SQ SCH (09:43)
[2017-09-24 09:48] LABS: ANION GAP 10 (8-16); BLOOD UREA NITROGEN 20 mg/dL (7-18); CALCIUM 8.7 mg/dL (8.5-10.1); CHLORIDE 108 mmol/L (98-107); CO2 24 mmol/L (21-32); GLUCOSE,RANDOM 111 mg/dL (74-106); POTASSIUM 4.1 mmol/L (3.5-5.1); SODIUM 142 mmol/L (136-145)
--- NOTE | 2017-09-24 12:35 | PN ---
Progress Note (short form) - Note Progress Note: Patient is 72 year old male with a past surgical history of several back surgeries, s/p spinal fusion/Laminectomy (Apr, 2017). He was seen this morning at bedside and doing well. Home Health Aide present. He is aware that he may be discharged home today. His Thoracic/Lumbar myelogram was already reviewed by Dr. Queen. Further plan of care and treatment will be addressed by Dr. Queen at at a later date as there were nothing mandating immediate, or even inpatient action. Vital Signs Temperature 98.0 F 09/24/17 06:00 Pulse Rate 87 09/24/17 06:00 Respiratory Rate 20 09/24/17 06:00 Blood Pressure 118/73 09/24/17 06:00 O2 Sat by Pulse Oximetry (%) 98 09/23/17 21:00 A/P: Patient is a 72 year old male with chronic lower back pain; several back surgeries and s/p spinal fusion/Laminectomy (Apr, 2017) came with complaint of lower extremity weakness; pain and being bedbound. Plan: Thoracic/Lumbar Myelogram was reviewed by Dr. Queen - There were nothing mandating immediate, or even inpatient action at this time Discharge planning by case management/medical team Would recommend physical therapy at home
--- NOTE | 2017-09-24 14:03 | DS ---
Physical Exam: SUBJECTIVE: Patient seen and examined at bedside. still have the same symptoms , seems stable and ready to go home as work up is negative. OBJECTIVE: Vital Signs Period Temp Pulse Resp BP Sys/Suazo Pulse Ox Last 24 Hr 97.5 F-98.0 F 78-88 20-20 104-148/70-76 98 PHYSICAL EXAM GENERAL: The patient is awake, alert, and fully oriented, in no acute distress. HEAD: Normal with no signs of trauma. EYES: sclera anicteric, conjunctiva clear. ENT: moist mucous membranes. NECK: full range of motion, supple. LUNGS: Breath sounds equal, clear to auscultation bilaterally, no wheezes, no crackles, no accessory muscle use. HEART: Regular rate and rhythm, S1, S2 without murmur, rub or gallop. ABDOMEN: Soft, nontender, nondistended, normoactive bowel sounds, no guarding, no rebound, EXTREMITIES: 2+ pulses, warm, well-perfused, no edema. left foot drop, sensation decreased in left leg. strength 3/5 on left leg, 4/5 on right leg. sensation intact in upper ext, strength 5/5 B/L upper ext. NEUROLOGICAL: no focal deficit. Normal speech, gait not observed. PSYCH: Normal mood, normal affect. SKIN: Warm, dry, LABS Laboratory Results - last 24 hr 09/24/17 09/24/17 08:48 08:48 WBC 7.5 RBC 3.87 L Hgb 13.1 D Hct 39.1 MCV 101.0 H MCH 33.8 H MCHC 33.4 RDW 15.0 Plt Count 223 MPV 8.1 Sodium 142 Potassium 4.1 Chloride 108 H Carbon Dioxide 24 Anion Gap 10 BUN 20 H Creatinine 1.0 Random Glucose 111 H D Calcium 8.7 CBC, BMP 09/24/17 08:48 09/24/17 08:48 HOSPITAL COURSE: Date of Admission:09/19/17 Date of Discharge: 09/24/17 is a a 72 year old male with chronic lower back pain; several back surgeries and s/p spinal fusion/Laminectomy (Apr, 2017) came with complaint of lower extremity weakness; pain and being bedbound.Thoracic/Lumbar Myelogram was reviewed by Dr. Queen, There were nothing mandating immediate, or even inpatient action at this time. pt will be discharged home and would recommend physical therapy at home. recommend pain control resume oxycodone 5 mg po q6hr . Tylenol 325 mg po Q6hr for HTN: resume Lisinopril 20 bid mg daily and Norvasc 5 mg daily was added. for HLD:not on home meds.pt is hemodynamically stable and ready to Dc home. no PT rehab facility due to insurance coverage limited. Minutes to complete discharge: 40 Discharge Summary Reason For Visit: INABILITY TO AMBILATE DUE TO MULTIPLE JOINTS Current Active Problems Constipation (Acute) HTN (hypertension) (Chronic) Inability to ambulate due to multiple joints (Chronic) Weakness (Chronic) Weakness of left lower extremity (Chronic) Condition: Stable - Instructions Diet, Activity, Other Instructions: You were admitted to the hospital due to lower extremities numbness and weakness. The imaging done in hospital (CT scan of lumbar and thoracic spine and myelogram ) showed multiple chronic problems but no emergent issues that require surgery right away. Your case was reviewed by neurosurgeon Dr Bustillo and you were determined to be stable for discharge home, however, you need to follow with the neurologist as out patient . Please follow up with your primary care physician within one week Please follow up with Dr Nilesh Oneil within one week. Please resume all your home meds as prescribed before admission Please use Colace 100 mg orally three times a day as needed for constipation. Norvasc 5 mg daily was added to control your blood pressure. If your symptoms worsen return to emergency room as soon as possible. Referrals: Nilesh Queen MD, [facility] [Staff Physician] - 1 Week Disposition: VNS/HOME HEALTH CARE - Home Medications Comprehensive Discharge Medication List: Ambulatory Orders Lisinopril [Prinivil -] 20 mg PO BID 07/06/17 Oxycodone HCl/Acetaminophen [Percocet 5-325 mg Tablet] 1 tab PO Q6H PRN MDD 3 Alprazolam [Xanax] 2.5 mg PO BID 07/22/17 Acetaminophen [Tylenol .Regular Strength -] 325 mg PO Q6H PRN tablet 09/24/17 Amlodipine Besylate [Norvasc -] 5 mg PO DAILY #30 tablet 09/24/17 Sennosides [Senna -] 1 tab PO BID #60 tablet 09/24/17 This patient is new to me today: No Emergency Visit: Yes ED Registration Date: 09/19/17 Care time: The patient presented to the Emergency Department on the above date and was hospitalized for further evaluation of their emergent condition. Critical Care patient: No - Discharge Referral Referred to [facility] Med P.C.: No
--- NOTE | 2017-09-24 19:53 | PN ---
Teaching Attending Note Name of Resident: Alexis Blancas ATTENDING PHYSICIAN STATEMENT I saw and evaluated the patient. I reviewed the resident's note and discussed the case with the resident. I agree with the resident's findings and plan as documented. SUBJECTIVE: no fever or chills, still has numbness in LLE and weakness. no back pain OBJECTIVE: NAD , AAOx3 CV : RRR LUngs : CTAB ext : no edema Neuro: 3/5 L hip flexion , 4/5 R hip flexion , 4/5 knee flexion and extension on L, and 5/5 on R . 4/5 R ankle dorsiflexion, and 1/5 on L. plantar flexion 4/ 5 B/l 1 + knee jerk b/l. ASSESSMENT AND PLAN: 72 y/o man with h/o P Afib, HTN, HLP , P A fib , chronic back pain and scoliosis s/p laminectomy and fusion in apr who presented with persistent weakness. 1- LLE weakness: CT scans reviewed. Myelogram report is not up yet but it was reviewed by Dr. Martinez and no acute intervention is indicated now PT at home fal precautions 2- h/o A fib, not on AC due to falls . Dispo :declined rehab as he can't afford it , dc home with VNS
== END 2017-09-24 15:08 | disposition home health service (06) ==
LOC: JER 13:10 → JERBED 22:42 → J8W 09-20 17:00
PROVIDERS: ADMIT Internal Medicine; ATTEND Internal Medicine
PROC: 3E0337Z Introduction of Electrolytic and Water Balance Substance into Peripheral Vein, Percutaneous Approach (ICD-10-PCS; principal; 2017-09-19)
PROC: 3E013GC Introduction of Other Therapeutic Substance into Subcutaneous Tissue, Percutaneous Approach (ICD-10-PCS; 2017-09-19)
DX: R53.1 Weakness (principal); R26.2 Difficulty in walking, not elsewhere classified; I10 Essential (primary) hypertension; E78.5 Hyperlipidemia, unspecified; I48.0 Paroxysmal atrial fibrillation; J44.9 Chronic obstructive pulmonary disease, unspecified; M54.5 Low back pain; G89.29 Other chronic pain; Z98.1 Arthrodesis status; R29.898 Other symptoms and signs involving the musculoskeletal system; M54.10 Radiculopathy, site unspecified; R29.6 Repeated falls; M79.605 Pain in left leg; Z98.890 Other specified postprocedural states; K59.00 Constipation, unspecified; N40.0 Benign prostatic hyperplasia without lower urinary tract symptoms; K57.90 Diverticulosis of intestine, part unspecified, without perforation or abscess without bleeding
CPT/HCPCS: 36415; 71045-TC-FY; 72128-TC; 72131-TC; 72265-TC-FY; 76000-TC-FY; 80048; 80053; 85025; 85027; 85610; 85730; 86850; 86900; 86901; 93005; 93010; 96372; 97116-GP; 97161-GP; 99284-25; G0378; J1644

== ENCOUNTER 2017-10-29 03:59 | Emergency (ER) | payer OTHER, BC ==
--- NOTE | 2017-10-29 04:15 | PDOC ---
History of Present Illness - General History Source: Patient <Donal Mckinley - Last Filed: 10/29/17 04:15> - General History Source: Patient Exam Limitations: No Limitations - History of Present Illness Initial Comments: 10/29/17 04:36 Patient is a 72 year old male with a significant past medical history of hypertension, hyperlipidemia, paroxysmal Afib, COPD, chronic lower back pain, s /p spinal fusion/laminectomy with surgery done 04/2017 Diverticulitis, IBS, hemorrhoids, Enlarged Prostate, Hypercholesterolemia, Depression, and Anxiety, who presents to the ED with left leg pain. The patient states that occasionally when pain is really bad he experiences incontinence of urine, but he has not experienced incontinence for the last couple of days. The patient denies any fever, chills, nausea, vomiting, diarrhea, or abdominal pain. Allergies: pregabalin, pravastatin sodium, morphine, peanut, penicillins, and lactose. Social History: Former smoker (Last 1969). Patient denies any alcohol or drug use. Surgical History: Hernia Repair, Hemorrhoids/Anal ulcer, right UVJ Stent, Lumbar Back Surgery x2 PCP: None Neuro: Dr. Queen <Cecy Mckeon - Last Filed: 10/29/17 06:14> <Uriel Velasquez - Last Filed: 10/29/17 12:58> - General Chief Complaint: Pain, Acute Stated Complaint: L LEG PAIN Time Seen by Provider: 10/29/17 04:15 Past History - Past Medical History Anemia: No Asthma: No Cancer: No Cardiac Disorders: Yes (HTN, HLD, Paroxysmal AFib) CVA: (NPH) COPD: Yes CHF: No DVT: No Dementia: No Diabetes: No GI Disorders: Yes (Diverticulitis, IBS, hemorrhoids) Disorders: Yes (Englarged Prostate) HTN: Yes Hypercholesterolemia: Yes Kidney Stones: Yes (s/p Right UVJ Stent placement) Liver Disease: No Psychiatric Problems: Yes (Depression/Anxiety) Seizures: No Thyroid Disease: No - Surgical History Abdominal Surgery: Yes (Hernia Repair) Appendectomy: No Cardiac Surgery: No Cholecystectomy: No GI Surgery: Yes (HEMORRHOIDS/ANAL ULCER, RIGHT UVJ STENT) Lung Surgery: No Neurologic Surgery: No Orthopedic Surgery: Yes (Lumbar Back Surgery x2) - Immunization History Immunization Up to Date: Yes - Suicide/Smoking/Psychosocial Hx Smoking Status: No Smoking History: Never smoked Years of Tobacco Use: 20 Have you smoked in the past 12 months: No Number of Cigarettes Smoked Daily: 0 If you are a former smoker, when did you quit?: 1970 Information on smoking cessation initiated: No 'Breaking Loose' booklet given: 09/08/13 Hx Alcohol Use: No Drug/Substance Use Hx: No Substance Use Type: None Hx Substance Use Treatment: No <Donal Mckinley - Last Filed: 10/29/17 04:15> <Cecy Mckeon - Last Filed: 10/29/17 06:14> <Uriel Velasquez - Last Filed: 10/29/17 12:58> - Past Medical History Allergies/Adverse Reactions: Allergies Allergy/AdvReac Type Severity Reaction Status Date / Time pregabalin [From Lyrica] Allergy Mild Verified 10/29/17 04:08 pravastatin sodium Allergy Unknown Verified 10/29/17 04:08 [From Pravachol] morphine Allergy Verified 10/29/17 04:08 peanut Allergy Verified 10/29/17 04:08 Penicillins Allergy Verified 10/29/17 04:08 lactose AdvReac Nausea Verified 10/29/17 04:08 Home Medications: Ambulatory Orders Lisinopril [Prinivil -] 20 mg PO BID 07/06/17 Oxycodone HCl/Acetaminophen [Percocet 5-325 mg Tablet] 1 tab PO Q6H PRN MDD 3 Alprazolam [Xanax] 2.5 mg PO BID 07/22/17 Acetaminophen [Tylenol .Regular Strength -] 325 mg PO Q6H PRN tablet 09/24/17 Amlodipine Besylate [Norvasc -] 5 mg PO DAILY #30 tablet 09/24/17 Sennosides [Senna -] 1 tab PO BID #60 tablet 09/24/17 Review of Systems - Review of Systems Able to Perform ROS?: Yes Comments:: 10/29/17 04:36 CONSTITUTIONAL: Absent: fever, no chills, no fatigue EYES: Absent: visual changes ENT: Absent: ear pain, no sore throat CARDIOVASCULAR: Absent: chest pain, no palpitations RESPIRATORY: Absent: cough, no SOB GI: Absent: abdominal pain, no nausea, no vomiting, no constipation, no diarrhea GENITOURINARY: Absent: dysuria, no frequency, no hematuria MUSKULOSKELETAL: Present: left leg pain Absent: back pain, no arthralgia SKIN: Absent: rash NEURO: Absent: headache <Cecy Mckeon - Last Filed: 10/29/17 06:14> *Physical Exam - Vital Signs Last Vital Signs Temp Pulse Resp BP Pulse Ox 97.6 F 72 20 138/67 99 10/29/17 04:08 10/29/17 04:08 10/29/17 04:08 10/29/17 04:08 10/29/17 04:08 <Donal Mckinley - Last Filed: 10/29/17 04:15> - Vital Signs Last Vital Signs Temp Pulse Resp BP Pulse Ox 97.6 F 72 20 138/67 99 10/29/17 04:08 10/29/17 04:08 10/29/17 04:08 10/29/17 04:08 10/29/17 04:08 - Physical Exam Comments: 10/29/17 04:37 GENERAL: Well developed, well nourished. Awake and alert. No acute distress. HEENT: Normocephalic, atraumatic. PERRLA, EOMI. No conjunctival pallor. Sclera are non- icteric. Moist mucous membranes. Oropharynx is clear. NECK: Supple. Full ROM. No JVD. Carotid pulses 2+ and symmetric, without bruits. No thyromegaly. No lymphadenopathy. CARDIOVASCULAR: Regular rate and rhythm. No murmurs, rubs, or gallops. Distal pulses are 2+ and symmetric. PULMONARY: No evidence of respiratory distress. Lungs clear to auscultation bilaterally. No wheezing, rales or rhonchi. ABDOMINAL: Soft. Non-tender. Non-distended. No rebound or guarding. No organomegaly. Normoactive bowel sounds. MUSCULOSKELETAL (+)Tenderness to palpation of the left calf, left ankle, and base of left foot. Not warm or cold. No bony deformity. No CVA tenderness. The patient has no lumbar spinal tenderness or lumbar paraspinal muscle tenderness. Pelvis is stable. EXTREMITIES: No cyanosis. No clubbing. No edema. No calf tenderness. SKIN: Warm and dry. Normal capillary refill. No rashes. No jaundice. NEUROLOGICAL: Alert, awake, appropriate. PSYCHIATRIC: Cooperative. Good eye contact. Appropriate mood and affect. <Cecy Mckeon - Last Filed: 10/29/17 06:14> - Vital Signs Last Vital Signs Temp Pulse Resp BP Pulse Ox 97.9 F 74 17 130/86 95 10/29/17 06:57 10/29/17 06:57 10/29/17 06:57 10/29/17 06:57 10/29/17 06:57 <Uriel Velasquez - Last Filed: 10/29/17 12:58> ED Treatment Course - LABORATORY CBC & Chemistry Diagram: 10/29/17 05:01 10/29/17 05:01 <Cecy Mckeon - Last Filed: 10/29/17 06:14> - LABORATORY CBC & Chemistry Diagram: 10/29/17 05:01 10/29/17 05:01 - ADDITIONAL ORDERS Additional order review: Laboratory Results 10/29/17 10/29/17 05:01 05:01 PT with INR 10.80 INR 0.96 Sodium 142 Potassium 4.4 Chloride 110 H Carbon Dioxide 25 Anion Gap 7 L BUN 25 H D Creatinine 1.1 Creat Clearance w eGFR > 60 Random Glucose 91 Calcium 8.7 Total Bilirubin 0.2 D AST 15 ALT 24 D Alkaline Phosphatase 70 Total Protein 5.9 L Albumin 3.5 10/29/17 05:01 RBC 3.77 L MCV 104.2 H MCHC 34.3 RDW 14.9 MPV 8.9 Neutrophils % 56.8 D Lymphocytes % 23.9 D Monocytes % 8.6 Eosinophils % 9.3 H D Basophils % 1.4 - Medications Given in the ED: ED Medications Discontinued Medications Generic Name Dose Route Start Last Admin Trade Name Kaitlynn PRN Reason Stop Dose Admin Oxycodone/Acetaminophen 2 combo 10/29/17 04:27 10/29/17 05:22 Percocet 5/325 - PO 10/29/17 04:28 2 combo ONCE ONE Administration <Uriel Velasquez - Last Filed: 10/29/17 12:58> Medical Decision Making - Medical Decision Making 10/29/17 12:46 Patient is 72-year-old male with history of chronic back pain, left lower extremity foot drop who is status post spinal surgery in April 2017. Patient had been seen and evaluated in this ER on numerous occasions for similar complaints. CT of LS spine reveals no changes from baseline. Left lower extremity Doppler ultrasound shows no evidence of acute DVT. I discussed the case with Dr. Manjarrez of neurosurgery. Patient was offered admission with placement in retirement for further evaluation by pain management for possible neurostimulator placement but is refusing at this time wishes to be discharged. No acute issues are present currently. Will discharge. <Uriel Velasquez - Last Filed: 10/29/17 12:58> *DC/Admit/Observation/Transfer <Donal Mckinley - Last Filed: 10/29/17 04:15> - Attestations Scribe Attestion: 10/29/17 04:39 Documentation prepared by Cecy Mckeon, acting as medical doctor for Donal Mckinley MD. <Cecy Mckeon - Last Filed: 10/29/17 06:14> - Discharge Dispostion Admit: No <Uriel Velasquez - Last Filed: 10/29/17 12:58> Diagnosis at time of Disposition: Back pain Qualifiers: Back pain location: low back pain Chronicity: acute Back pain laterality: left Sciatica presence: with sciatica Sciatica laterality: sciatica of left side Qualified Code(s): M54.42 - Lumbago with sciatica, left side - Discharge Dispostion Disposition: HOME Condition at time of disposition: Good - Referrals Referrals: pmd, as scheduled [Other] - Patient Instructions Printed Discharge Instructions: DI for Low Back Pain
[2017-10-29 04:37] VITALS: BMI 27.4
[2017-10-29 05:16] LABS: BASO % 1.4 % (0-2.0); EOS % 9.3 % (0-4.5); HEMATOCRIT 39.2 % (35.4-49); HEMOGLOBIN 13.5 GM/dL (11.7-16.9); LYMPH % 23.9 % (8-40); MCH 35.8 pg (25.7-33.7); MCHC 34.3 g/dl (32.0-35.9); MEAN CELL VOLUME 104.2 fl (80-96); MEAN PLT VOLUME 8.9 fl (7.5-11.1); MONO % 8.6 % (3.8-10.2); NEUT % 56.8 % (42.8-82.8); PLATELET COUNT 198 K/MM3 (134-434); RBC 3.77 M/mm3 (4.00-5.60); RDW 14.9 % (11.9-15.9); WHITE BLOOD COUNT 7.6 K/mm3 (4.0-10.0)
[2017-10-29 05:29] LABS: INR 0.96 (0.82-1.09); PROTHROMBIN TIME (PATIENT) 10.8 SEC (9.98-11.88)
[2017-10-29 06:35] LABS: ALBUMIN 3.5 g/dl (3.4-5.0); ALK PHOS 70 U/L (45-117); ANION GAP 7 (8-16); BILIRUBIN,TOTAL 0.2 mg/dL (0.2-1.0); BLOOD UREA NITROGEN 25 mg/dL (7-18); CALCIUM 8.7 mg/dL (8.5-10.1); CHLORIDE 110 mmol/L (98-107); CO2 25 mmol/L (21-32); CREATININE 1.1 mg/dL (0.7-1.3); GLUCOSE,RANDOM 91 mg/dL (74-106); POTASSIUM 4.4 mmol/L (3.5-5.1); SGOT/AST 15 U/L (15-37); SGPT/ALT 24 U/L (12-78); SODIUM 142 mmol/L (136-145); TOT PROT 5.9 g/dl (6.4-8.2)
[2017-10-29 06:58] VITALS: TEMP 97.9
[2017-10-29 14:24] VITALS: BP 127/77; PULSE 98
== END 2017-10-29 14:25 | disposition home or self-care (01) ==
LOC: JER 03:59
DX: M54.42 Lumbago with sciatica, left side (principal); G89.29 Other chronic pain; M21.379 Foot drop, unspecified foot
CPT/HCPCS: 36415; 72131-TC; 80053; 85025; 85610; 93971-TC; 99284-25

== ENCOUNTER 2018-01-12 17:27 | Inpatient (IN) | payer OTHER, BC ==
--- NOTE | 2018-01-12 19:30 | PDOC ---
History of Present Illness <Farheen Rahman - Last Filed: 01/12/18 22:30> - General History Source: Patient Exam Limitations: No Limitations <YaelmichaelBlasdustin - Last Filed: 01/12/18 23:20> - General Chief Complaint: Syncope/Near Syncope Stated Complaint: SNYCOPE Time Seen by Provider: 01/12/18 19:27 - History of Present Illness Initial Comments: 01/12/18 23:19 The patient is a 72 year old male, with a significant past medical history of hypertension, hyperlipidemia, paroxysmal Afib, COPD, chronic lower back pain, s /p spinal fusion/laminectomy with surgery done 04/2017 Diverticulitis, IBS, hemorrhoids, Enlarged Prostate, Hypercholesterolemia, Depression, and Anxiety, who presents to the emergency department s/p syncope for further evaluation. As per patients aid, he she left the room to wash a dish and upon arrival he syncopized for 2 minutes. She reports he awoke solely from her verbalizing his name. The patient is bedbound since his surgery in 04/2017. He denies any recent fevers, headache or dizziness. He denies any recent nausea , vomit, diarrhea or constipation. He denies any recent chest pain or shortness of breath. He denies any recent dysuria, frequency, urgency or hematuria. Allergies: pregabalin, pravastatin sodium, morphine, peanut, penicillins, and lactose. Social History: Former smoker (Last 1969). Patient denies any alcohol or drug use. Surgical History: Hernia Repair, Hemorrhoids/Anal ulcer, right UVJ Stent, Lumbar Back Surgery x2 PCP: None Neuro: Dr. Queen (Candido Osman) Past History - Past Medical History Anemia: No Asthma: No Cancer: No Cardiac Disorders: Yes (HTN, HLD, Paroxysmal AFib) CVA: (NPH) COPD: Yes CHF: No DVT: No Dementia: No Diabetes: No GI Disorders: Yes (Diverticulitis, IBS, hemorrhoids) Disorders: Yes (Englarged Prostate) HTN: Yes Hypercholesterolemia: Yes Kidney Stones: Yes (s/p Right UVJ Stent placement) Liver Disease: No Psychiatric Problems: Yes (Depression/Anxiety) Seizures: No Thyroid Disease: No - Surgical History Abdominal Surgery: Yes (Hernia Repair) Appendectomy: No Cardiac Surgery: No Cholecystectomy: No GI Surgery: Yes (HEMORRHOIDS/ANAL ULCER, RIGHT UVJ STENT) Lung Surgery: No Neurologic Surgery: No Orthopedic Surgery: Yes (Lumbar Back Surgery x2) - Immunization History Immunization Up to Date: Yes - Suicide/Smoking/Psychosocial Hx Smoking Status: No Smoking History: Former smoker Years of Tobacco Use: 20 Have you smoked in the past 12 months: No Number of Cigarettes Smoked Daily: 0 If you are a former smoker, when did you quit?: 1970 Information on smoking cessation initiated: No 'Breaking Loose' booklet given: 09/08/13 Hx Alcohol Use: No Drug/Substance Use Hx: No Substance Use Type: None Hx Substance Use Treatment: No <Farheen Rahman - Last Filed: 01/12/18 22:30> <Candido Osman - Last Filed: 01/12/18 23:20> - Past Medical History Allergies/Adverse Reactions: Allergies Allergy/AdvReac Type Severity Reaction Status Date / Time pregabalin [From Lyrica] Allergy Mild Verified 10/29/17 04:08 pravastatin sodium Allergy Unknown Verified 10/29/17 04:08 [From Pravachol] morphine Allergy Verified 10/29/17 04:08 peanut Allergy Verified 10/29/17 04:08 Penicillins Allergy Verified 10/29/17 04:08 lactose AdvReac Nausea Verified 10/29/17 04:08 Home Medications: Ambulatory Orders Lisinopril [Prinivil -] 20 mg PO BID 07/06/17 Alprazolam [Xanax] 20 mg PO BID 07/22/17 Acetaminophen [Tylenol .Regular Strength -] 325 mg PO Q6H PRN tablet 09/24/17 Sennosides [Senna -] 1 tab PO BID #60 tablet 09/24/17 Aspirin [ASA -] 81 mg PO DAILY 01/12/18 [place]-3 Fatty Acids [[place]-3] 1,000 mg PO DAILY 01/12/18 Oxycodone HCl/Acetaminophen [Percocet 10-325 mg Tablet] 1 each PO BID 01/12/18 Cardiac Specific PMH - Complaint Specific PMHX Pacemaker: No <Farheen Rahman - Last Filed: 01/12/18 22:30> Review of Systems <Farheen Rahman - Last Filed: 01/12/18 22:30> - Review of Systems Able to Perform ROS?: Yes All Other Systems: Reviewed and Negative <Candido Osman - Last Filed: 01/12/18 23:20> - Review of Systems Comments:: 01/12/18 23:19 CONSTITUTIONAL: Absent: fever, no chills, no fatigue EYES: Absent: visual changes ENT: Absent: ear pain, no sore throat CARDIOVASCULAR: Absent: chest pain, no palpitations RESPIRATORY: Absent: cough, no SOB GI: Absent: abdominal pain, no nausea, no vomiting, no constipation, no diarrhea GENITOURINARY: Absent: dysuria, no frequency, no hematuria MUSKULOSKELETAL: Absent: back pain, no arthralgia, no myalgia SKIN: Absent: rash NEURO: Present: s/p syncope Absent: headache (Candido Osman) *Physical Exam <Farheen Rahman - Last Filed: 01/12/18 22:30> <Candido Osman - Last Filed: 01/12/18 23:20> - Vital Signs Last Vital Signs Temp Pulse Resp BP Pulse Ox 98.4 F 83 20 103/66 97 01/12/18 18:03 01/12/18 18:03 01/12/18 18:03 01/12/18 18:03 01/12/18 18:03 - Physical Exam Comments: 01/12/18 23:20 GENERAL: Well developed, well nourished. Awake and alert. No acute distress. HEENT: Normocephalic, atraumatic. PERRLA, EOMI. No conjunctival pallor. Sclera are non- icteric. Moist mucous membranes. Oropharynx is clear. NECK: Supple. Full ROM. No JVD. Carotid pulses 2+ and symmetric, without bruits. No thyromegaly. No lymphadenopathy. CARDIOVASCULAR: Regular rate and rhythm. No murmurs, rubs, or gallops. Distal pulses are 2+ and symmetric. PULMONARY: No evidence of respiratory distress. Lungs clear to auscultation bilaterally. No wheezing, rales or rhonchi. ABDOMINAL: Soft. Non-tender. Non-distended. No rebound or guarding. No organomegaly. Normoactive bowel sounds. MUSCULOSKELETAL Normal range of motion at all joints. No bony deformities or tenderness. No CVA tenderness. EXTREMITIES: Left lower extremity weakness. Chronic left foot drop. No cyanosis. No clubbing. No edema. No calf tenderness. SKIN: Warm and dry. Normal capillary refill. No rashes. No jaundice. NEUROLOGICAL: Bedbound. Nonambulatory at baseline. Alert, awake, appropriate. Cranial nerves 2 -12 intact. No deficits to light touch and temperature in face, upper extremities and lower extremities. No motor deficits in the in face, upper extremities and lower extremities. Normoreflexic in the upper and lower extremities. Normal speech. Toes are down-going bilaterally. PSYCHIATRIC: Cooperative. Good eye contact. Appropriate mood and affect. (Candido Osman) ED Treatment Course - LABORATORY CBC & Chemistry Diagram: 01/12/18 20:52 01/12/18 20:52 <Farheen Rahman - Last Filed: 01/12/18 22:30> - LABORATORY CBC & Chemistry Diagram: 01/12/18 20:52 01/12/18 20:52 <Candido Osman - Last Filed: 01/12/18 23:20> - ADDITIONAL ORDERS Additional order review: Laboratory Results 01/12/18 01/12/18 01/12/18 20:52 20:52 20:52 PT with INR 11.00 INR 0.97 Sodium 140 Potassium 4.5 Chloride 108 H Carbon Dioxide 24 Anion Gap 8 BUN 29 H Creatinine 1.2 Creat Clearance w eGFR 59.18 Random Glucose 97 Calcium 9.2 Total Bilirubin 0.3 D AST 16 ALT 32 D Alkaline Phosphatase 85 D Creatine Kinase 69 Troponin I < 0.02 Total Protein 7.2 D Albumin 4.1 Blood Type O NEGATIVE Antibody Screen Negative 01/12/18 20:52 RBC 4.38 MCV 102.3 H MCHC 34.1 RDW 14.3 MPV 8.9 Neutrophils % 64.5 Lymphocytes % 21.5 Monocytes % 6.5 Eosinophils % 6.7 H Basophils % 0.8 *DC/Admit/Observation/Transfer - Discharge Dispostion Decision to Admit order: Yes <Farheen Rahman - Last Filed: 01/12/18 22:30> <Candido Osman - Last Filed: 01/12/18 23:20> Diagnosis at time of Disposition: Weakness of left lower extremity, History of left foot drop Syncope Qualifiers: Syncope type: unspecified Qualified Code(s): R55 - Syncope and collapse - Attestations Scribe Attestion: 01/12/18 23:20 Documentation prepared by Candido Osman, acting as medical detailist for Farheen Rahman MD. (Dawson,Candido)
[2018-01-12] MEDS: SODIUM CHLORIDE 1,000 ML IV SCH (21:08)
[2018-01-12 21:11] LABS: BASO % 0.8 % (0-2.0); EOS % 6.7 % (0-4.5); HEMATOCRIT 44.8 % (35.4-49); HEMOGLOBIN 15.3 GM/dL (11.7-16.9); LYMPH % 21.5 % (8-40); MCH 34.8 pg (25.7-33.7); MCHC 34.1 g/dl (32.0-35.9); MEAN CELL VOLUME 102.3 fl (80-96); MEAN PLT VOLUME 8.9 fl (7.5-11.1); MONO % 6.5 % (3.8-10.2); NEUT % 64.5 % (42.8-82.8); PLATELET COUNT 231 K/MM3 (134-434); RBC 4.38 M/mm3 (4.00-5.60); RDW 14.3 % (11.9-15.9)
[2018-01-12 21:30] LABS: ALBUMIN 4.1 g/dl (3.4-5.0); ANION GAP 8 (8-16); BLOOD UREA NITROGEN 29 mg/dL (7-18); CALCIUM 9.2 mg/dL (8.5-10.1); CHLORIDE 108 mmol/L (98-107); CO2 24 mmol/L (21-32); CREATININE 1.2 mg/dL (0.7-1.3); GLUCOSE,RANDOM 97 mg/dL (74-106); POTASSIUM 4.5 mmol/L (3.5-5.1); SGOT/AST 16 U/L (15-37); SODIUM 140 mmol/L (136-145)
[2018-01-12 21:32] LABS: INR 0.97 (0.82-1.09)
[2018-01-12 21:39] LABS: ALK PHOS 85 U/L (45-117); BILIRUBIN,TOTAL 0.3 mg/dL (0.2-1.0); SGPT/ALT 32 U/L (12-78); TOT PROT 7.2 g/dl (6.4-8.2)
--- NOTE | 2018-01-12 22:27 | PN ---
Teaching Attending Note Name of Resident: Black Parson ATTENDING PHYSICIAN STATEMENT I saw and evaluated the patient. I reviewed the resident's note and discussed the case with the resident. I agree with the resident's findings and plan as documented. SUBJECTIVE: While sitting in bed and patient reported to lose consciousness for unspecified time, and without incontinence. As per patient he was in severe pain secondary to his left leg, which he reports paralysis after lumbar sacral surgery. OBJECTIVE: GEN: aggitated, angry, in severe distress CVS: tachycardic, irreg rhythm Lungs: CTA Abd: soft , NT, BS+ Ext, left foot drop, b/l lower extremity muscle atrophy and poor tone. Neuro:strength / LLE, UE 12/06. CBCD WBC 9.0 K/mm3 (4.0-10.0) 01/12/18 20:52 RBC 4.38 M/mm3 (4.00-5.60) 01/12/18 20:52 Hgb 15.3 GM/dL (11.7-16.9) D 01/12/18 20:52 Hct 44.8 % (35.4-49) 01/12/18 20:52 MCV 102.3 fl (80-96) H 01/12/18 20:52 MCHC 34.1 g/dl (32.0-35.9) 01/12/18 20:52 RDW 14.3 % (11.9-15.9) 01/12/18 20:52 Plt Count 231 K/MM3 (134-434) 01/12/18 20:52 MPV 8.9 fl (7.5-11.1) 01/12/18 20:52 CMP Sodium 140 mmol/L (136-145) 01/12/18 20:52 Potassium 4.5 mmol/L (3.5-5.1) 01/12/18 20:52 Chloride 108 mmol/L (98-107) H 01/12/18 20:52 Carbon Dioxide 24 mmol/L (21-32) 01/12/18 20:52 Anion Gap 8 (8-16) 01/12/18 20:52 BUN 29 mg/dL (7-18) H 01/12/18 20:52 Creatinine 1.2 mg/dL (0.7-1.3) 01/12/18 20:52 Creat Clearance w eGFR 59.18 (>60) 01/12/18 20:52 Random Glucose 97 mg/dL (74-106) 01/12/18 20:52 Calcium 9.2 mg/dL (8.5-10.1) 01/12/18 20:52 Total Bilirubin 0.3 mg/dL (0.2-1.0) D 01/12/18 20:52 AST 16 U/L (15-37) 01/12/18 20:52 ALT 32 U/L (12-78) D 01/12/18 20:52 Alkaline Phosphatase 85 U/L (45-117) D 01/12/18 20:52 Total Protein 7.2 g/dl (6.4-8.2) D 01/12/18 20:52 Albumin 4.1 g/dl (3.4-5.0) 01/12/18 20:52 CARDIAC ENZYMES Creatine Kinase 69 IU/L (39-308) 01/12/18 20:52 Troponin I < 0.02 ng/ml (0.00-0.05) 01/12/18 20:52 ASSESSMENT AND PLAN: Syncope secondary to pain telemetry monitoring recommended but patient refused Percocet prn for pain Continue home medications Observation only
[2018-01-13] MEDS ORDERED: FENTANYL PATCH WASTE MC PRN (00:57)
[2018-01-13] MEDS ORDERED: fentaNYL 75mcg/hr PATCH.TD72 TD SCH (01:00)
--- NOTE | 2018-01-13 01:01 | HP ---
CHIEF COMPLAINT: Syncope PCP: none HISTORY OF PRESENT ILLNESS: The patient is a 72 yo m w/ PMH paroxysmal afib, HTN and lumbar spinal surgery x2 with residual chronic left leg pain, numbness and left foot drop who was BIBEMS after and episode of syncope this evening. The episode was witnessed by his aide, who was at bedside. The patient states that he had a prolonged period of his chronic left leg pain lasting approx. 45 mins after which he began to experience dizziness and then lost consciousness. The patient was sitting up in bed during this episode and denied any trauma. The patient's aide states that she left the room briefly while he was eating, then returned to find the patient unresponsive. The aide shook the patient wand began calling his name. after approx. 4 minutes, the patient became responsive. Aide denies any body shaking, loss of bowel or bladder function or post-ictal symptoms. The patient endorses continued dizziness at the time of interview. Per the patient he took his percocet early in the morning, his normal blood pressure medications with breakfast and a xanax at 12pm. Patient denies taking additional doses of medications. Patient denies fevers, chills, headaches, vision changes, chest pain, SOB, palpitations, abdominal pain, diarrhea or changes in urination. ER course was notable for: (1) CT head negative for acute changes (2) (3) Recent Travel: none PAST MEDICAL HISTORY: HTN, HLD, paroxysmal A-fib, normal pressure hydrocephalus, diverticulitis, IBS, BPH PAST SURGICAL HISTORY: Right UVJ stent insertion Hernia Repair Lspine laminectomy and fusion x2 Social History: Smoking: former smoker with 20 year history; quit in 1969 Alcohol: denies Drugs: denies Family History: non-contributory Allergies pregabalin [From Lyrica] Allergy (Mild, Verified 10/29/17 04:08) pravastatin sodium [From Pravachol] Allergy (Unknown, Verified 10/29/17 04:08) however, pt takes atorvastatin 10 mg daily at home, reportedly without side effects morphine Allergy (Verified 10/29/17 04:08) unknown peanut Allergy (Verified 10/29/17 04:08) Penicillins Allergy (Verified 10/29/17 04:08) unknown affect lactose Adverse Reaction (Verified 10/29/17 04:08) Nausea HOME MEDICATIONS: Home Medications Medication Instructions Recorded Lisinopril [Prinivil -] 20 mg PO BID 07/06/17 Alprazolam [Xanax] 20 mg PO BID 07/22/17 Acetaminophen [Tylenol .Regular 325 mg PO Q6H PRN tablet 09/24/17 Strength -] Sennosides [Senna -] 1 tab PO BID #60 tablet 09/24/17 Aspirin [ASA -] 81 mg PO DAILY 01/12/18 [place]-3 Fatty Acids [[place]-3] 1,000 mg PO DAILY 01/12/18 Oxycodone HCl/Acetaminophen 1 each PO BID 01/12/18 [Percocet 10-325 mg Tablet] REVIEW OF SYSTEMS CONSTITUTIONAL: Absent: fever, chills, diaphoresis, generalized weakness, malaise, loss of appetite, weight change HEENT: Absent: rhinorrhea, nasal congestion, throat pain, throat swelling, difficulty swallowing, mouth swelling, ear pain, eye pain, visual changes CARDIOVASCULAR: Absent: chest pain, syncope, palpitations, irregular heart rate, lightheadedness , peripheral edema RESPIRATORY: Absent: cough, shortness of breath, dyspnea with exertion, orthopnea, wheezing, stridor, hemoptysis GASTROINTESTINAL: Absent: abdominal pain, abdominal distension, nausea, vomiting, diarrhea, melena , hematochezia GENITOURINARY: Absent: dysuria, frequency, urgency, hesitancy, hematuria, flank pain, genital pain MUSCULOSKELETAL: Absent: myalgia, arthralgia, joint swelling, neck pain SKIN: Absent: rash, itching, pallor HEMATOLOGIC/IMMUNOLOGIC: Absent: easy bleeding, easy bruising, lymphadenopathy, frequent infections ENDOCRINE: Absent: unexplained weight gain, unexplained weight loss, heat intolerance, cold intolerance NEUROLOGIC: Absent: headache, seizure, mental status changes, bladder or bowel incontinence PSYCHIATRIC: Absent: anxiety, depression, suicidal or homicidal ideation, hallucinations. PHYSICAL EXAMINATION Vital Signs - 24 hr 01/12/18 01/13/18 18:03 00:16 Temperature 98.4 F 98.1 F Pulse Rate 83 Pulse Rate [ 81 Apical] Respiratory 20 21 Rate Blood Pressure 103/66 Blood Pressure 110/68 [Left Arm] O2 Sat by Pulse 97 98 Oximetry (%) GENERAL: Awake, alert, and fully oriented, in no acute distress. HEAD: Normal with no signs of trauma. EYES: Pupils equal, round and reactive to light, extraocular movements intact, sclera anicteric, conjunctiva clear. No lid lag. EARS, NOSE, THROAT: oropharynx clear without exudates. Moist mucous membranes. NECK: Normal range of motion, supple without lymphadenopathy, JVD, or masses. LUNGS: Breath sounds equal, clear to auscultation bilaterally. No wheezes, and no crackles. No accessory muscle use. HEART: Regular rate and rhythm, normal S1 and S2 without murmur, rub or gallop. ABDOMEN: Soft, nontender, not distended, normoactive bowel sounds, no guarding, no rebound, no masses. No hepatomegaly or splenomegaly. MUSCULOSKELETAL: Normal range of motion at all joints. No bony deformities or tenderness. No CVA tenderness. LOWER EXTREMITIES: 2+ pulses, warm, well-perfused. No calf tenderness. No peripheral edema. NEUROLOGICAL: Cranial nerves II-X intact. Normal speech. strength 5/5 in both upper extremities. Strength 1/5 in LLE w/ foot drop seen. Strength 3/5 in RLE. Sensation is decreased over the left lower extremity, but preserved in all other dermatomes. SKIN: Warm, dry, normal turgor, there are areas of dry skin with associated excoriations over both upper extremities b/l. normal capillary refill. Laboratory Results - last 24 hr 01/12/18 01/12/18 01/12/18 20:52 20:52 20:52 WBC 9.0 RBC 4.38 Hgb 15.3 D Hct 44.8 MCV 102.3 H MCH 34.8 H MCHC 34.1 RDW 14.3 Plt Count 231 MPV 8.9 Absolute Neuts (auto) 5.8 Neutrophils % 64.5 Lymphocytes % 21.5 Monocytes % 6.5 Eosinophils % 6.7 H Basophils % 0.8 Nucleated RBC % 0 PT with INR 11.00 INR 0.97 Sodium 140 Potassium 4.5 Chloride 108 H Carbon Dioxide 24 Anion Gap 8 BUN 29 H Creatinine 1.2 Creat Clearance w eGFR 59.18 Random Glucose 97 Calcium 9.2 Total Bilirubin 0.3 D AST 16 ALT 32 D Alkaline Phosphatase 85 D Creatine Kinase 69 Troponin I < 0.02 Total Protein 7.2 D Albumin 4.1 Blood Type Antibody Screen 01/12/18 20:52 WBC RBC Hgb Hct MCV MCH MCHC RDW Plt Count MPV Absolute Neuts (auto) Neutrophils % Lymphocytes % Monocytes % Eosinophils % Basophils % Nucleated RBC % PT with INR INR Sodium Potassium Chloride Carbon Dioxide Anion Gap BUN Creatinine Creat Clearance w eGFR Random Glucose Calcium Total Bilirubin AST ALT Alkaline Phosphatase Creatine Kinase Troponin I Total Protein Albumin Blood Type O NEGATIVE Antibody Screen Negative ASSESSMENT/PLAN: The patient is a 72 yo m w/ PMH HTN, Afib, and multiple spinal surgeries who was BIBEMS after a syncopal episode. #Syncope secondary to prolonged leg pain -orthostatic vital signs -Fentanyl IVP 50mcg q6H PRN -fentanyl patch 25mcg q 72h -will continue the patient's home percocet and xanax -will place pain management consult #HTN -will resume the patient's home lisinopril 20mg BID -BP controlled at this time #FEN -no fluids indicated -lytes WNL, replete PRN -sodium controlled diet #Prophy -scds #Dispo -admit for observation to med surg; patient requested non-tele bed, is hemodynamically stable and has had no further episodes of syncope. -case d/w Dr. Pavon Visit type - Emergency Visit Emergency Visit: Yes ED Registration Date: 01/12/18 Care time: The patient presented to the Emergency Department on the above date and was hospitalized for further evaluation of their emergent condition. - New Patient This patient is new to me today: Yes Date on this admission: 01/13/18 - Critical Care Critical Care patient: No Hospitalist Screening - Colonoscopy Questionnaire Colonoscopy Questionnaire: Colonoscopy Questionnaire - Patient: 50 - 75 years old and never had a screening colonoscopy: Unknown History of colon or rectal polyps, or CA: Unknown History of IBD, Crohn's disease or UC: Unknown History of abdominal radiation therapy as a child: Unknown - Relative: 1 with colon or rectal CA, or polyps at age 60 or younger: Unknown Colon or rectal CA diagnosed at age 45 or younger: Unknown Multiple relatives with colon or rectal CA: Unknown - Outcome: Screening Result: Negative Screen
[2018-01-13] MEDS ORDERED: ACETAMINOPHEN 325 MG TABLET (FP) PO ONE (03:30)
[2018-01-13] MEDS ORDERED: oxyCODONE HCL 5 MG TABLET PO ONE (03:30)
[2018-01-13 07:42] LABS: HEMATOCRIT 43.5 % (35.4-49); HEMOGLOBIN 14.7 GM/dL (11.7-16.9); MCH 34.8 pg (25.7-33.7); MCHC 33.8 g/dl (32.0-35.9); PLATELET COUNT 221 K/MM3 (134-434); RBC 4.23 M/mm3 (4.00-5.60); RDW 13.8 % (11.9-15.9); WHITE BLOOD COUNT 9.1 K/mm3 (4.0-10.0)
[2018-01-13 08:08] LABS: CHLORIDE 108 mmol/L (98-107); POTASSIUM 4.7 mmol/L (3.5-5.1); SODIUM 141 mmol/L (136-145)
[2018-01-13 08:56] LABS: ALBUMIN 3.8 g/dl (3.4-5.0); ALK PHOS 76 U/L (45-117); ANION GAP 10 (8-16); BILIRUBIN,TOTAL 0.8 mg/dL (0.2-1.0); BLOOD UREA NITROGEN 28 mg/dL (7-18); CALCIUM 9.2 mg/dL (8.5-10.1); CO2 23 mmol/L (21-32); CREATININE 1.4 mg/dL (0.7-1.3); GLUCOSE,RANDOM 90 mg/dL (74-106); SGOT/AST 14 U/L (15-37); SGPT/ALT 30 U/L (12-78); TOT PROT 6.5 g/dl (6.4-8.2)
[2018-01-13 09:24] LABS: URINE APPEARANCE CLEAR; URINE BILIRUBIN NEGATIVE (<2.0 mg/dL); URINE COLOR LTYELLOW; URINE GLUCOSE (UA) NEGATIVE (NEGATIVE); URINE KETONE NEGATIVE (NEGATIVE); URINE LEUK ESTERASE NEGATIVE (NEGATIVE); URINE NITRITE NEGATIVE (NEGATIVE); URINE PROTEIN NEGATIVE (NEGATIVE); URINE UROBILINOGEN NEGATIVE mg/dL (0.2-1.0)
[2018-01-13] MEDS: LISINOPRIL 20 MG TABLET (FP) PO SCH ×2 (09:30→21:16)
[2018-01-13] MEDS: ACETAMINOPHEN 325 MG TABLET (FP) PO SCH ×2 (09:30→21:15)
[2018-01-13] MEDS: oxyCODONE HCL 5 MG TABLET PO SCH ×2 (09:31→22:55)
[2018-01-13] MEDS: ASPIRIN 81 MG CHEWABLE TABLETS PO SCH (09:32)
[2018-01-13] MEDS: SENNOSIDES 8.6MG TABLET (FP) PO SCH ×2 (09:32→21:16)
[2018-01-13] MEDS ORDERED: ALPRAZOLAM PO SCH (10:00)
--- NOTE | 2018-01-13 12:20 | EKG ---
Test Reason : Blood Pressure : / mmHG Vent. Rate : 085 BPM Atrial Rate : 085 BPM P-R Int : 180 ms QRS Dur : 130 ms QT Int : 378 ms P-R-T Axes : 017 -73 088 degrees QTc Int : 449 ms NORMAL SINUS RHYTHM LEFT AXIS DEVIATION LEFT BUNDLE BRANCH BLOCK INFERIOR INFARCT , AGE UNDETERMINED ANTEROLATERAL INFARCT , AGE UNDETERMINED ABNORMAL ECG WHEN COMPARED WITH ECG OF 19-SEP-2017 15:19, NO SIGNIFICANT CHANGE WAS FOUND Confirmed by MD KARYNA, SACHI ([id number]) on 01/13/2018 12:19:37 PM Referred By: Confirmed By:SACHI TRONCOSO MD
--- NOTE | 2018-01-13 16:09 | PN ---
Teaching Attending Note Name of Resident: Byron Domínguez ATTENDING PHYSICIAN STATEMENT I saw and evaluated the patient. I reviewed the resident's note and discussed the case with the resident. I agree with the resident's findings and plan as documented. SUBJECTIVE:c/o L foot pain. unable to walk due to the pain. states the pain was so bad yesterday that he mustve passed out because no one is doing anything about his pain. states the foot is so numb. denies CP, SOB< fever, chills, dizzyness, blurred vision, palpitations, N/V/C/D OBJECTIVE: Last Vital Signs Temp Pulse Resp BP Pulse Ox 98.4 F 90 18 120/76 96 01/13/18 14:00 01/13/18 14:00 01/13/18 14:00 01/13/18 14:00 01/13/18 08:56 General agitated Lungs CTA B/L no wheezing/rales/rhonchi CV S1 S2 RRR no murmur/rub/gallop no carotid bruit Abdomen soft NT/ND Extremities pulses 2+ intact. L centrifugal machine tender in stocking distribution to the ankle, muscle wasting ASSESSMENT AND PLAN: 72yo M with PMH afib. HTN, chronic back s/p laminectomy x2 and multiple admissions in the past due to syncopal episodes usually contributed due to overdosing on pain medication presented with syncope 1. Syncope- likely due to pain however hx of overdosing on medication although can not rule out hypovolemia or carotid disease. carotid doppler showed 70% stenosis in 2017. will repeat to re-evaluate. check orthostatics. echo of last year noted and no valvular issues at that time and no murmurs noted. will have parking line painter evaluate to assist in pain management as he has chronic pain. head CT no acute changes 2. TODD- liekly dehydration/hypovolemia. cont low dose IVF. consider renal workup if does not improve 3. Chronic pain- pt has a long standing hx of pain. parking line painter eval. encouraged to follow up with neurosurgery if continues to experience pain. if does not want to see him should follow up with another for 2nd opinion 4. HTN- here controlled. cont acei 5. Anxiety- re-start xanax as prescribed 6. DVT ppx- EAM 7. informed him anticipate discharge tomorrow. encouraged to follow up with neurosurgery Istop verified Reference #: [id number]
--- NOTE | 2018-01-13 16:20 | PN ---
Physical Exam: SUBJECTIVE: Patient seen and examined at bedside. OBJECTIVE: Vital Signs Period Temp Pulse Resp BP Sys/[place] Pulse Ox Last 24 Hr 98.0 F-99 F 78-91 18-21 103-130/66-93 96-98 GENERAL: The patient is awake, alert, and fully oriented, in no acute distress. HEAD: Normal with no signs of trauma. EYES: PERRL, extraocular movements intact, sclera anicteric, conjunctiva clear. No ptosis. ENT: Ears normal, nares patent, oropharynx clear without exudates, moist mucous membranes. NECK: Trachea midline, full range of motion, supple. LUNGS: Breath sounds equal, clear to auscultation bilaterally, no wheezes, no crackles, no accessory muscle use. HEART: Regular rate and rhythm, S1, S2 without murmur, rub or gallop. ABDOMEN: Soft, nontender, nondistended, normoactive bowel sounds, no guarding, no rebound, no hepatosplenomegaly, no masses. EXTREMITIES: 2+ pulses, warm, well-perfused, no edema. NEUROLOGICAL: Cranial nerves II through XII grossly intact. Normal speech, gait not observed. PSYCH: Normal mood, normal affect. SKIN: Warm, dry, normal turgor, no rashes or lesions noted Laboratory Results - last 24 hr 01/12/18 01/12/18 01/12/18 20:52 20:52 20:52 WBC 9.0 RBC 4.38 Hgb 15.3 D Hct 44.8 MCV 102.3 H MCH 34.8 H MCHC 34.1 RDW 14.3 Plt Count 231 MPV 8.9 Absolute Neuts (auto) 5.8 Neutrophils % 64.5 Lymphocytes % 21.5 Monocytes % 6.5 Eosinophils % 6.7 H Basophils % 0.8 Nucleated RBC % 0 PT with INR 11.00 INR 0.97 Sodium 140 Potassium 4.5 Chloride 108 H Carbon Dioxide 24 Anion Gap 8 BUN 29 H Creatinine 1.2 Creat Clearance w eGFR 59.18 Random Glucose 97 Calcium 9.2 Total Bilirubin 0.3 D AST 16 ALT 32 D Alkaline Phosphatase 85 D Creatine Kinase 69 Troponin I < 0.02 Total Protein 7.2 D Albumin 4.1 Urine Color Urine Appearance Urine pH Ur Specific [place] Urine Protein Urine Glucose (UA) Urine Ketones Urine Blood Urine Nitrite Urine Bilirubin Urine Urobilinogen Ur Leukocyte Esterase Blood Type Antibody Screen 01/12/18 01/13/18 01/13/18 20:52 07:00 07:00 WBC 9.1 RBC 4.23 Hgb 14.7 Hct 43.5 MCV 103.0 H MCH 34.8 H MCHC 33.8 RDW 13.8 Plt Count 221 MPV 9.0 Absolute Neuts (auto) Neutrophils % Lymphocytes % Monocytes % Eosinophils % Basophils % Nucleated RBC % PT with INR INR Sodium Potassium Chloride Carbon Dioxide Anion Gap BUN Creatinine Creat Clearance w eGFR Random Glucose Calcium Total Bilirubin AST ALT Alkaline Phosphatase Creatine Kinase Troponin I Total Protein Albumin Urine Color Ltyellow Urine Appearance Clear Urine pH 5.0 Ur Specific [place] 1.019 Urine Protein Negative Urine Glucose (UA) Negative Urine Ketones Negative Urine Blood Negative Urine Nitrite Negative Urine Bilirubin Negative Urine Urobilinogen Negative Ur Leukocyte Esterase Negative Blood Type O NEGATIVE Antibody Screen Negative 01/13/18 07:00 WBC RBC Hgb Hct MCV MCH MCHC RDW Plt Count MPV Absolute Neuts (auto) Neutrophils % Lymphocytes % Monocytes % Eosinophils % Basophils % Nucleated RBC % PT with INR INR Sodium 141 Potassium 4.7 Chloride 108 H Carbon Dioxide 23 Anion Gap 10 BUN 28 H Creatinine 1.4 H Creat Clearance w eGFR 49.54 Random Glucose 90 Calcium 9.2 Total Bilirubin 0.8 D AST 14 L ALT 30 Alkaline Phosphatase 76 Creatine Kinase Troponin I Total Protein 6.5 Albumin 3.8 Urine Color Urine Appearance Urine pH Ur Specific [place] Urine Protein Urine Glucose (UA) Urine Ketones Urine Blood Urine Nitrite Urine Bilirubin Urine Urobilinogen Ur Leukocyte Esterase Blood Type Antibody Screen Active Medications Generic Name Dose Route Start Last Admin Trade Name Kaitlynn PRN Reason Stop Dose Admin Acetaminophen 325 mg 01/13/18 10:00 01/13/18 09:30 Tylenol - PO 325 mg BID SIENA Administration Aspirin 81 mg 01/13/18 10:00 01/13/18 09:32 Asa - PO 81 mg DAILY SIENA Administration Fentanyl 50 mcg 01/13/18 00:58 Sublimaze Injection - IVPUSH 01/14/18 00:59 Q8H PRN PAIN LEVEL 6-10 Sodium Chloride 1,000 mls @ 42 mls/hr 01/12/18 19:15 01/12/18 21:08 Normal Saline - IV 42 mls/hr ASDIR SIENA Administration Lisinopril 20 mg 01/13/18 10:00 01/13/18 09:30 Prinivil PO 20 mg BID SIENA Administration Miscellaneous 1 each 01/13/18 00:57 Duragesic Patch Waste MC PRN PRN PAIN Oxycodone HCl 10 mg 01/13/18 10:00 01/13/18 09:31 Roxicodone - PO 10 mg BID SIENA Administration Senna 1 tab 01/13/18 10:00 01/13/18 09:32 Senna - PO 1 tab BID SIENA Administration ASSESSMENT/PLAN: The patient is a 72 yo m w/ PMH HTN, Afib, and multiple spinal surgeries who was BIBEMS after a syncopal episode. #Syncope secondary to prolonged leg pain -orthostatic vital signs within normal limits -Fentanyl -fentanyl patch -percocet -xanax -Pain management consulted #HTN -will resume the patient's home lisinopril 20mg BID -BP controlled at this time #TODD -Tobacco Drying Machine Operator up to 1.4 -NS #FEN -no fluids indicated -lytes WNL, replete PRN -sodium controlled diet #Ppx -scds #Dispo -admit for observation to med surg; patient requested non-tele bed, is hemodynamically stable and has had no further episodes of syncope note: pt requested to speak with Patient Affairs Byron Domínguez MD PGY-1 IM Visit type - Emergency Visit Emergency Visit: No - New Patient This patient is new to me today: Yes Date on this admission: 01/13/18 - Critical Care Critical Care patient: No - Discharge Referral Referred to [facility] Med [facility] No
[2018-01-13] MEDS: ALPRAZolam 0.25 MG TABLET PO SCH (21:16)
[2018-01-14] MEDS: SODIUM CHLORIDE 1,000 ML IV SCH (02:40)
--- NOTE | 2018-01-14 07:12 | CONSULT ---
Consult Consult Specialty:: pain medicine Referred by:: hospitalist Reason for Consultation:: left leg pain - History of Present Illness Chief Complaint: left leg pain History of Present Illness: 72 yo m w/ PMH paroxysmal afib, HTN and lumbar spinal surgery x2 with residual chronic left leg pain, numbness and left foot drop who was BIBEMS after and episode of syncope this evening. The episode was witnessed by his aide, who was at bedside. The patient states that he had a prolonged period of his chronic left leg pain lasting approx. 45 mins after which he began to experience dizziness and then lost consciousness. The patient was sitting up in bed during this episode and denied any trauma. The patient's aide states that she left the room briefly while he was eating, then returned to find the patient unresponsive. The aide shook the patient wand began calling his name. after approx. 4 minutes, the patient became responsive. Aide denies any body shaking, loss of bowel or bladder function or post-ictal symptoms. The patient endorses continued dizziness at the time of interview. Per the patient he took his percocet early in the morning, his normal blood pressure medications with breakfast and a xanax at 12pm. Patient denies taking additional doses of medications. Patient denies fevers, chills, headaches, vision changes, chest pain, SOB, palpitations, abdominal pain, diarrhea or changes in urination. Currently he reports severe left leg pain\ he failed injections he failed neuropathic agents in the past At this point he had seen several spine surgeons who do not recommend further surgery. PAST MEDICAL HISTORY: HTN, HLD, paroxysmal A-fib, normal pressure hydrocephalus, diverticulitis, IBS, BPH PAST SURGICAL HISTORY: Right UVJ stent insertion Hernia Repair Lspine laminectomy and fusion x2 - Past Medical History ACID CUTTER: Yes: Syncope Cardio/Vascular: Yes: HTN, Hyperlipdemia, Other Pulmonary: Yes: COPD Gastrointestinal: Yes: Constipation, Hiatal Hernia, Irritable Bowel Disease Renal/: Yes: Renal Inusuff, BPH, Renal Calculi (s/p stent placement) Infectious Disease: Yes: Other Psych: Yes: Anxiety, Depression Musculoskeletal: Yes: Chronic low back pain, Osteoarthritis - Past Surgical History Past Surgical History: Yes: Hernia Repair, Laminectomy - Alcohol/Substance Use Hx Alcohol Use: No History of Substance Use: reports: None - Smoking History Smoking history: Former smoker Have you smoked in the past 12 months: No Aproximately how many cigarettes per day: 0 If you are a former smoker, when did you quit?: 1969 - Social History Usual Living Arrangement: With Significant Other 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 Travel: No Home Medications - Allergies Allergies/Adverse Reactions: Allergies Allergy/AdvReac Type Severity Reaction Status Date / Time pregabalin [From Lyrica] Allergy Mild Verified 10/29/17 04:08 pravastatin sodium Allergy Unknown Verified 10/29/17 04:08 [From Pravachol] morphine Allergy Verified 10/29/17 04:08 peanut Allergy Verified 10/29/17 04:08 Penicillins Allergy Verified 10/29/17 04:08 lactose AdvReac Nausea Verified 10/29/17 04:08 - Home Medications Home Medications: Ambulatory Orders Lisinopril [Prinivil -] 20 mg PO BID 07/06/17 Alprazolam [Xanax] 20 mg PO BID 07/22/17 Acetaminophen [Tylenol .Regular Strength -] 325 mg PO Q6H PRN tablet 09/24/17 Sennosides [Senna -] 1 tab PO BID #60 tablet 09/24/17 Aspirin [ASA -] 81 mg PO DAILY 01/12/18 [place]-3 Fatty Acids [[place]-3] 1,000 mg PO DAILY 01/12/18 Oxycodone HCl/Acetaminophen [Percocet 10-325 mg Tablet] 1 each PO BID 01/12/18 Family Disease History - Family Disease History Family Disease History: CA: Father (lung ), Mother (gall bladder ), Other: Sister (alive: healthy) Physical Exam Vital Signs: Vital Signs Temperature 98.5 F 01/14/18 05:55 Pulse Rate 73 01/14/18 05:55 Respiratory Rate 20 01/14/18 05:55 Blood Pressure 120/70 01/14/18 05:55 O2 Sat by Pulse Oximetry (%) 99 01/14/18 00:00 Musculoskeletal: Yes: Back Pain, Other (left leg weakness) Labs: CBC, BMP 01/13/18 07:00 01/13/18 07:00 Assessment/Plan lumbar radiculopathy post laminectomy syndrome 1. Neurology eval 2. Consider spinal cord stimulator trial as outpatient 3. No other injections or neuropathic agents recommended as patient has failed numerous in the past 4. Oxycodone prn pain
[2018-01-14 08:42] LABS: BASO % 0.9 % (0-2.0); EOS % 8.5 % (0-4.5); HEMOGLOBIN 13.8 GM/dL (11.7-16.9); LYMPH % 26.9 % (8-40); MCH 34.9 pg (25.7-33.7); MCHC 33.7 g/dl (32.0-35.9); MEAN CELL VOLUME 103.4 fl (80-96); MEAN PLT VOLUME 9.4 fl (7.5-11.1); NEUT % 55.7 % (42.8-82.8); PLATELET COUNT 204 K/MM3 (134-434); RBC 3.96 M/mm3 (4.00-5.60); RDW 14.2 % (11.9-15.9); WHITE BLOOD COUNT 8.4 K/mm3 (4.0-10.0)
[2018-01-14 09:16] LABS: CHLORIDE 109 mmol/L (98-107); POTASSIUM 4.5 mmol/L (3.5-5.1); SODIUM 141 mmol/L (136-145)
[2018-01-14 09:34] LABS: ANION GAP 14 (8-16); BLOOD UREA NITROGEN 25 mg/dL (7-18); CALCIUM 8.5 mg/dL (8.5-10.1); CO2 18 mmol/L (21-32); CREATININE 1.1 mg/dL (0.7-1.3); GLUCOSE,RANDOM 74 mg/dL (74-106)
[2018-01-14] MEDS: ASPIRIN 81 MG CHEWABLE TABLETS PO SCH (09:51)
[2018-01-14] MEDS: oxyCODONE HCL 5 MG TABLET PO SCH ×2 (09:51→21:43)
[2018-01-14] MEDS: SENNOSIDES 8.6MG TABLET (FP) PO SCH ×2 (09:52→21:42)
[2018-01-14] MEDS: ALPRAZolam 0.25 MG TABLET PO SCH ×2 (09:53→21:42)
[2018-01-14] MEDS: LISINOPRIL 20 MG TABLET (FP) PO SCH ×2 (09:53→21:42)
[2018-01-14] MEDS: ACETAMINOPHEN 325 MG TABLET (FP) PO SCH ×2 (09:53→21:42)
--- NOTE | 2018-01-14 14:11 | PN ---
Teaching Attending Note Name of Resident: Byron Domínguez ATTENDING PHYSICIAN STATEMENT I saw and evaluated the patient. I reviewed the resident's note and discussed the case with the resident. I agree with the resident's findings and plan as documented. as soon as I entered the room the patient began to yell at me that he did not want me to be his doctor. When I attempted to speak with him to determine why he was angry he refused to let me speak. Informed me I was fired and did not want me to be his doctor Will inform lead hospitalist, Dr Escalante, and see if anther physician can accept him at this time.
--- NOTE | 2018-01-14 16:01 | PN ---
Physical Exam: SUBJECTIVE: Patient seen and examined at bedside. Pt has been very upset. When I saw him early this morning, he was calm and cooperative. He did not express to me why he was upset. OBJECTIVE: Vital Signs Period Temp Pulse Resp BP Sys/Suazo Pulse Ox Last 24 Hr 97.3 F-98.5 F 62-101 18-20 81-143/57-80 95-99 Gen: lying in bed, relatively comfortably HEENT: NCAT, EOMI Cardiac: s1,s2 RRR, no m/r/g lungs: cta abd: soft nontender, normal bs Ext: 2+ pulses, no edema, LLE ROM limited by pain #Neuro: Still has LLE sensation present but with [id number] parasthesias of the foot and leg up to the mid-ortiz. Laboratory Results - last 24 hr 01/14/18 01/14/18 07:09 07:09 WBC 8.4 RBC 3.96 L Hgb 13.8 Hct 41.0 MCV 103.4 H MCH 34.9 H MCHC 33.7 RDW 14.2 Plt Count 204 MPV 9.4 Absolute Neuts (auto) 4.7 Neutrophils % 55.7 Lymphocytes % 26.9 D Monocytes % 8.0 Eosinophils % 8.5 H Basophils % 0.9 Nucleated RBC % 0 Sodium 141 Potassium 4.5 Chloride 109 H Carbon Dioxide 18 L D Anion Gap 14 BUN 25 H Creatinine 1.1 D Random Glucose 74 Calcium 8.5 Active Medications Generic Name Dose Route Start Last Admin Trade Name Freq PRN Reason Stop Dose Admin Acetaminophen 325 mg 01/13/18 10:00 01/14/18 09:53 Tylenol - PO 325 mg BID SIENA Administration Alprazolam 0.25 mg 01/13/18 22:00 01/14/18 09:53 Xanax - PO 0.25 mg BID SIENA Administration Aspirin 81 mg 01/13/18 10:00 01/14/18 09:51 Asa - PO 81 mg DAILY SIENA Administration Lisinopril 20 mg 01/13/18 10:00 01/14/18 09:53 Prinivil PO 20 mg BID SIENA Administration Miscellaneous 1 each 01/13/18 00:57 Duragesic Patch Waste MC PRN PRN PAIN Oxycodone HCl 10 mg 01/13/18 10:00 01/14/18 09:51 Roxicodone - PO 10 mg BID SIENA Administration Senna 1 tab 01/13/18 10:00 01/14/18 09:52 Senna - PO 1 tab BID SIENA Administration ASSESSMENT/PLAN: The patient is a 72 yo m w/ PMH HTN, Afib, and multiple spinal surgeries who was BIBEMS after a syncopal episode. #Syncope secondary to prolonged leg pain -orthostatic vital signs within normal limits -Fentanyl -fentanyl patch -percocet -xanax -Pain management and pt agreed that spinal injections have not helped much in the past. suggest nerve stimulator. -Neurology consulted, Dr. Quan. Spoke with patient who stated he was amenable to seeing Dr. Quan #HTN -will resume the patient's home lisinopril 20mg BID -BP controlled at this time #TODD -Fraud Examiner up to 1.4 -NS #FEN -no fluids indicated -lytes WNL, replete PRN -sodium controlled diet #Ppx -scds #Dispo -admit for observation to med surg; patient requested non-tele bed, is hemodynamically stable and has had no further episodes of syncope note:Pt has been seen by Patient Affairs Byron Domínguez MD PGY-1 IM Visit type - Emergency Visit Emergency Visit: No - New Patient This patient is new to me today: No - Critical Care Critical Care patient: No - Discharge Referral Referred to [facility] Med P.C.: No
[2018-01-14] MEDS ORDERED: PT OWN MED DRAWER 7, Y5N ONE (21:30)
[2018-01-15 08:57] LABS: ANION GAP 9 (8-16); BLOOD UREA NITROGEN 26 mg/dL (7-18); CALCIUM 8.7 mg/dL (8.5-10.1); CHLORIDE 109 mmol/L (98-107); CO2 23 mmol/L (21-32); CREATININE 1.2 mg/dL (0.7-1.3); GLUCOSE,RANDOM 76 mg/dL (74-106); POTASSIUM 4.3 mmol/L (3.5-5.1); SODIUM 141 mmol/L (136-145)
[2018-01-15 09:05] LABS: BASO % 0.9 % (0-2.0); EOS % 9.3 % (0-4.5); HEMATOCRIT 38.3 % (35.4-49); HEMOGLOBIN 12.9 GM/dL (11.7-16.9); LYMPH % 25.5 % (8-40); MCH 34.4 pg (25.7-33.7); MCHC 33.6 g/dl (32.0-35.9); MEAN CELL VOLUME 102.3 fl (80-96); MEAN PLT VOLUME 9.1 fl (7.5-11.1); MONO % 8.3 % (3.8-10.2); PLATELET COUNT 177 K/MM3 (134-434); RBC 3.75 M/mm3 (4.00-5.60); RDW 13.9 % (11.9-15.9); WHITE BLOOD COUNT 7.8 K/mm3 (4.0-10.0)
[2018-01-15] MEDS: oxyCODONE HCL 5 MG TABLET PO SCH ×2 (10:37→21:54)
[2018-01-15] MEDS: SENNOSIDES 8.6MG TABLET (FP) PO SCH ×2 (10:37→21:52)
[2018-01-15] MEDS: LISINOPRIL 20 MG TABLET (FP) PO SCH ×2 (10:37→21:54)
[2018-01-15] MEDS: ASPIRIN 81 MG CHEWABLE TABLETS PO SCH (10:37)
[2018-01-15] MEDS: ACETAMINOPHEN 325 MG TABLET (FP) PO SCH ×2 (10:38→21:52)
[2018-01-15] MEDS: ALPRAZolam 0.25 MG TABLET PO SCH ×2 (10:38→21:51)
--- NOTE | 2018-01-15 11:29 | PN ---
Physical Exam: SUBJECTIVE: Patient seen and examined at the bedside. Left lower extremity pain, numbness and tingling. OBJECTIVE: Vital Signs Period Temp Pulse Resp BP Sys/Suazo Pulse Ox Last 24 Hr 97.7 F-97.9 F 80-101 18-18 81-120/57-73 95-95 GENERAL: The patient is awake, alert, and fully oriented, in no acute distress. HEAD: Normal with no signs of trauma. EYES: PERRL, extraocular movements intact, sclera anicteric, conjunctiva clear. No ptosis. ENT: Ears normal, nares patent, oropharynx clear without exudates, moist mucous membranes. NECK: Trachea midline, full range of motion, supple. LUNGS: Breath sounds equal, clear to auscultation bilaterally, no wheezes, no crackles, no accessory muscle use. HEART: Regular rate and rhythm, S1, S2 without murmur, rub or gallop. ABDOMEN: Soft, nontender, nondistended, normoactive bowel sounds, no guarding, no rebound, no hepatosplenomegaly, no masses. EXTREMITIES: 2+ pulses, warm, well-perfused, no edema. NEUROLOGICAL: left lower ext pain, numbness and tingling Laboratory Results - last 24 hr 01/15/18 01/15/18 06:00 08:02 WBC 7.8 RBC 3.75 L Hgb 12.9 Hct 38.3 MCV 102.3 H MCH 34.4 H MCHC 33.6 RDW 13.9 Plt Count 177 MPV 9.1 Absolute Neuts (auto) 4.4 Neutrophils % 56.0 Lymphocytes % 25.5 Monocytes % 8.3 Eosinophils % 9.3 H Basophils % 0.9 Nucleated RBC % 0 Sodium 141 Potassium 4.3 Chloride 109 H Carbon Dioxide 23 D Anion Gap 9 BUN 26 H Creatinine 1.2 Random Glucose 76 Calcium 8.7 Active Medications Generic Name Dose Route Start Last Admin Trade Name Freq PRN Reason Stop Dose Admin Acetaminophen 325 mg 01/13/18 10:01/15/18 10:38 Tylenol - PO 325 mg BID SIENA Administration Alprazolam 0.25 mg 01/13/18 22:00 01/15/18 10:38 Xanax - PO 0.25 mg BID SIENA Administration Aspirin 81 mg 01/13/18 10:00 01/15/18 10:37 Asa - PO 81 mg DAILY SIENA Administration Lisinopril 20 mg 01/13/18 10:00 01/15/18 10:37 Prinivil PO 20 mg BID SIENA Administration Miscellaneous 1 each 01/13/18 00:57 Duragesic Patch Waste MC PRN PRN PAIN Oxycodone HCl 10 mg 01/13/18 10:00 01/15/18 10:37 Roxicodone - PO 10 mg BID SIENA Administration Senna 1 tab 01/13/18 10:00 01/15/18 10:37 Senna - PO 1 tab BID SIENA Administration ASSESSMENT/PLAN: The patient is a 72 year old male with a significant past medical history of hypertension, afib and multiple spinal surgeries who was admitted o 01/12/2018 s/ p syncope secondary to left leg pain/numbness Neuro Syncope secondary to prolonged left lower leg pain, numbness and tingling. Also left foot drop noted. Patient with previous back surgeries, states that left lower ext. numbness and tingling worsening rendering him unable to care for himself or ambulate. He is dependent on his SECURITY CONTROL ASSESSOR for all his cares, ADLs. States pain is severe at times. Pain currently controlled with oxycodone. Neuro to see evaluate. On Neurontin. Physical therapy to follow daily. Patient seeking for 2 nd opinion for his chronic left leg numbness/tingling. Check carotid doppler, orthostatics vitals signs normal, pain consult notes reviewed. Card: Hypertension, controlled On Lisinopril Atrial fib, chronic Not on any anticoags F.E.N. No IVF, as he is tolerating PO hydration monitor electrolytes low salt diet Physical therapy Heparin Disposition: full code. Visit type - Emergency Visit Emergency Visit: Yes ED Registration Date: 01/15/18 Care time: The patient presented to the Emergency Department on the above date and was hospitalized for further evaluation of their emergent condition. - New Patient This patient is new to me today: Yes Date on this admission: 01/16/18 - Critical Care Critical Care patient: No - Discharge Referral Referred to [facility] Med P.C.: No
--- NOTE | 2018-01-15 21:45 | CONSULT ---
Consult - text type - Consultation Consultation Note: NEUROLOGY CONSULTATION is greatly appreciated: This 72 yo RH s man lives at home with a Edson Aide 24/02. PMH sig for HTN, Chol, ASHD, A Fib. Known to me after 14 years of progressive pains in his legs at night and 3 years of progressive gait dysfunction. Pains refractory to 2 LS laminectomies in the past. Symptoms improved on L-Dopa and Pramipexole but worsened after extensive LS surgery last fall. In fact, patient claims he has not walked since the surgery due to "left foot drop" in spite of extensive rehab stints. Severe shooting and stabbing pains in the left foot and leg interrupt sleep. Tolerable on Oxycodone 10-20 mg TID, Fentanyl patch, and alprazolam 2 mg tid. Now admitted after self-reported "Syncope" in bed after which he responded to his name being called by his aide. Labs: [id number] RAINER: Erythematous rash around his nose and mouth NEURO: MS/speech: Normal CN II-XII: Normal Motor: No drift. + cowheel rigidity. No drift. Slightly reduced Left grasp. Elevates both legs against gravity. Normal left ankle DF, PF. Left foot-drop with contracture. Areflexic in legs. Plantars silent. Coord: No FTN dystaxia Sensory: Decreased vib and pin left foot. Normal on the right. IMP: 1. Extrapyramidal features c/w Mild PD 2. Severe Restless limbs syndrome. 3. Chronic left L 5 radiculopathy 4. R/O B12 deficiency. SUGGEST: Check B12, homocysteine Try L-Dopa 25/100 TID with Pramipexole 0.125 TID. Bedside PT. Mobilize OO Bed to chair. Continue current pain regimen for now. Thank you very much, Gerald Quan MD
[2018-01-15] MEDS: HEPARIN NA (PORCINE) 5,000 UNITS/ML 1ML VIAL SQ SCH (21:55)
[2018-01-16] MEDS: PRAMIPEXOLE DIHYDROCHLORIDE 0.125 MG TABLET PO SCH ×4 (06:02→17:15)
--- NOTE | 2018-01-16 10:18 | PN ---
Physical Exam: SUBJECTIVE: Patient seen and examined at the bedside with his HEAD FILTER TANK TENDER HELPER Jeanna. Patient states that he is seeking further surgical options regarding his left leg weakness/numbness. Wants to gain some strength and possibly ambulate and not have chronic pain and numbness on his left lower extremity. He wants to be able to perform his own ADLs as much as possible without depending so much on his HEAD FILTER TANK TENDER HELPER. Spoke to him in detail about other options such as transfer to another facility for 2nd opinion, [facility], [facility], etc. He is thinking out the possibilities and I assured him we will assist him. Further, he is refusing to take the Sinemet ordered by neuro because he does not feel he has Parkinsons disease. OBJECTIVE: Vital Signs Period Temp Pulse Resp BP Sys/Suazo Pulse Ox Last 24 Hr 97.0 F-98.5 F 70-88 18-20 104-128/73-93 97 GENERAL: The patient is awake, alert, and fully oriented, in no acute distress. HEAD: Normal with no signs of trauma. EYES: PERRL, extraocular movements intact, sclera anicteric, conjunctiva clear. No ptosis. ENT: Ears normal, nares patent, oropharynx clear without exudates, moist mucous membranes. NECK: Trachea midline, full range of motion, supple. LUNGS: Breath sounds equal, clear to auscultation bilaterally, no wheezes, no crackles, no accessory muscle use. HEART: Regular rate and rhythm, S1, S2 without murmur, rub or gallop. ABDOMEN: Soft, nontender, nondistended, normoactive bowel sounds, no guarding, no rebound, no hepatosplenomegaly, no masses. EXTREMITIES: 2+ pulses, warm, well-perfused, no edema. NEUROLOGICAL: left lower ext pain, numbness and tingling Active Medications Generic Name Dose Route Start Last Admin Trade Name Freq PRN Reason Stop Dose Admin Acetaminophen 325 mg 01/13/18 10:01/15/18 21:52 Tylenol - PO 325 mg BID SIENA Administration Alprazolam 0.25 mg 01/13/18 22:00 01/15/18 21:51 Xanax - PO 0.25 mg BID SIENA Administration Aspirin 81 mg 01/13/18 10:00 01/15/18 10:37 Asa - PO 81 mg DAILY SIENA Administration Carbidopa/Levodopa 1 combo 01/16/18 07:00 01/16/18 06:02 Sinemet *Cr* 25/100 - PO 1 combo 0700,1200,1700 SIENA Administration Heparin Sodium (Porcine) 5,000 unit 01/15/18 22:00 01/15/18 21:55 Heparin - SQ 5,000 unit BID SIENA Administration Lisinopril 20 mg 01/13/18 10:00 01/15/18 21:54 Prinivil PO 20 mg BID SIENA Administration Miscellaneous 1 each 01/13/18 00:57 Duragesic Patch Waste MC PRN PRN PAIN Oxycodone HCl 10 mg 01/13/18 10:00 01/15/18 21:54 Roxicodone - PO 10 mg BID SIENA Administration Pramipexole Dihydrochloride 0.25 mg 01/19/18 07:00 Mirapex - PO 0700,1200,1700 SIENA Pramipexole Dihydrochloride 0.125 mg 01/15/18 07:00 01/16/18 09:14 Mirapex - PO 01/19/18 00:00 Not Given 0700,1200,1700 SIENA Senna 1 tab 01/13/18 10:00 01/15/18 21:52 Senna - PO 1 tab BID SIENA Administration ASSESSMENT/PLAN: The patient is a 72 year old male with a significant past medical history of hypertension, afib and multiple spinal surgeries who was admitted o 01/12/2018 s/ p syncope secondary to left leg pain/numbness Neuro Syncope secondary to prolonged left lower leg pain, numbness and tingling. Also left foot drop noted. Patient with previous back surgeries, states that left lower ext. numbness and tingling worsening rendering him unable to care for himself or ambulate. He is dependent on his HEAD FILTER TANK TENDER HELPER for all his cares, ADLs. States pain is severe at times. Pain currently controlled with oxycodone. Neuro saw and evaluated, pt does not want to take Sinemet as per neuro recommendation. On Neurontin. Physical therapy to follow daily. Patient seeking for 2 nd opinion for his chronic left leg numbness/tingling. Various options discussed as noted. above. Check carotid doppler, orthostatics vitals signs normal, pain consult notes reviewed. Card: Hypertension, controlled On Lisinopril Atrial fib, chronic Not on any anticoags F.E.N. No IVF, as he is tolerating PO hydration monitor electrolytes low salt diet Physical therapy Heparin Disposition: full code. Visit type - Emergency Visit Emergency Visit: Yes ED Registration Date: 01/15/18 Care time: The patient presented to the Emergency Department on the above date and was hospitalized for further evaluation of their emergent condition. - New Patient This patient is new to me today: No - Critical Care Critical Care patient: No - Discharge Referral Referred to [facility] Med P.C.: No
[2018-01-16] MEDS: oxyCODONE HCL 5 MG TABLET PO SCH ×2 (11:15→21:13)
[2018-01-16] MEDS: ASPIRIN 81 MG CHEWABLE TABLETS PO SCH (11:16)
[2018-01-16] MEDS: SENNOSIDES 8.6MG TABLET (FP) PO SCH ×2 (11:16→21:14)
[2018-01-16] MEDS: HEPARIN NA (PORCINE) 5,000 UNITS/ML 1ML VIAL SQ SCH ×2 (11:16→21:14)
[2018-01-16] MEDS: ACETAMINOPHEN 325 MG TABLET (FP) PO SCH ×2 (11:16→21:14)
[2018-01-16] MEDS: ALPRAZolam 0.25 MG TABLET PO SCH ×2 (11:16→21:14)
[2018-01-16] MEDS: LISINOPRIL 20 MG TABLET (FP) PO SCH ×2 (11:16→21:13)
[2018-01-16] MEDS: GABAPENTIN 100 MG CAPSULE (FP) PO SCH ×2 (17:15→21:14)
[2018-01-17 06:41] LABS: EOS % 9.5 % (0-4.5); HEMATOCRIT 39.2 % (35.4-49); HEMOGLOBIN 13.4 GM/dL (11.7-16.9); LYMPH % 24.8 % (8-40); MCH 34.4 pg (25.7-33.7); MCHC 34.1 g/dl (32.0-35.9); MEAN CELL VOLUME 100.9 fl (80-96); MEAN PLT VOLUME 8.9 fl (7.5-11.1); MONO % 8.3 % (3.8-10.2); NEUT % 56.4 % (42.8-82.8); PLATELET COUNT 183 K/MM3 (134-434); RBC 3.88 M/mm3 (4.00-5.60); RDW 13.8 % (11.9-15.9); WHITE BLOOD COUNT 7.6 K/mm3 (4.0-10.0)
[2018-01-17] MEDS: GABAPENTIN 100 MG CAPSULE (FP) PO SCH ×3 (06:43→23:17)
[2018-01-17] MEDS: PRAMIPEXOLE DIHYDROCHLORIDE 0.125 MG TABLET PO SCH ×3 (06:45→16:25)
[2018-01-17 07:19] LABS: CHLORIDE 108 mmol/L (98-107); POTASSIUM 4.3 mmol/L (3.5-5.1); SODIUM 140 mmol/L (136-145)
[2018-01-17 07:27] LABS: ALBUMIN 3.4 g/dl (3.4-5.0); ALK PHOS 70 U/L (45-117); ANION GAP 7 (8-16); BILIRUBIN,TOTAL 0.4 mg/dL (0.2-1.0); BLOOD UREA NITROGEN 23 mg/dL (7-18); CALCIUM 8.9 mg/dL (8.5-10.1); CO2 25 mmol/L (21-32); CREATININE 1.3 mg/dL (0.7-1.3); GLUCOSE,RANDOM 85 mg/dL (74-106); SGOT/AST 17 U/L (15-37); SGPT/ALT 29 U/L (12-78); TOT PROT 6.1 g/dl (6.4-8.2)
[2018-01-17] MEDS: oxyCODONE HCL 5 MG TABLET PO SCH ×2 (09:31→23:18)
[2018-01-17] MEDS: ACETAMINOPHEN 325 MG TABLET (FP) PO SCH ×2 (09:32→23:17)
[2018-01-17] MEDS: SENNOSIDES 8.6MG TABLET (FP) PO SCH ×2 (09:32→23:17)
[2018-01-17] MEDS: ASPIRIN 81 MG CHEWABLE TABLETS PO SCH (09:32)
[2018-01-17] MEDS: HEPARIN NA (PORCINE) 5,000 UNITS/ML 1ML VIAL SQ SCH ×2 (09:33→23:16)
[2018-01-17] MEDS: ALPRAZolam 0.25 MG TABLET PO SCH ×2 (09:33→23:17)
[2018-01-17] MEDS: LISINOPRIL 20 MG TABLET (FP) PO SCH ×2 (09:33→23:17)
[2018-01-17] MEDS ORDERED: BISACODYL 5 MG TABLET.DR (FP) PO ONE (12:35)
[2018-01-17] MEDS ORDERED: BISACODYL 10 MG SUPP.RECT RC ONE ×2 (13:00→14:15)
[2018-01-17] MEDS ORDERED: SODIUM CHLORIDE 1,000 ML IV SCH (13:45)
[2018-01-17] MEDS ORDERED: DOCUSATE SODIUM 100 MG CAPSULE (FP) PO SCH (14:00)
--- NOTE | 2018-01-17 14:19 | PN ---
Physical Exam: SUBJECTIVE: Patient seen and examined at the bedside. Patient was able to get out of bed into the recliner with the help of staff. c/o of left leg pain, will doppler to rule out dvt Patient and MULTISENSOR INTELLIGENCE OFFICER again discussed options with me regarding outside facilities such as [facility] or other Spine specialities. OBJECTIVE: gentle hydration started for mild TODD Vital Signs Period Temp Pulse Resp BP Sys/Suazo Pulse Ox Last 24 Hr 98.7 F-99.2 F 74-90 18-20 117-118/74-83 93-94 GENERAL: The patient is awake, alert, and fully oriented, in no acute distress. HEAD: Normal with no signs of trauma. EYES: PERRL, extraocular movements intact, sclera anicteric, conjunctiva clear. No ptosis. ENT: Ears normal, nares patent, oropharynx clear without exudates, moist mucous membranes. NECK: Trachea midline, full range of motion, supple. LUNGS: Breath sounds equal, clear to auscultation bilaterally, no wheezes, no crackles, no accessory muscle use. HEART: Regular rate and rhythm, S1, S2 without murmur, rub or gallop. ABDOMEN: Soft, nontender, nondistended, normoactive bowel sounds, no guarding, no rebound, no hepatosplenomegaly, no masses. EXTREMITIES: 2+ pulses, warm, well-perfused, no edema, left foot drop NEUROLOGICAL: left lower ext pain, numbness and tingling Laboratory Results - last 24 hr 01/17/18 01/17/18 01/17/18 06:30 06:30 06:30 WBC 7.6 RBC 3.88 L Hgb 13.4 Hct 39.2 MCV 100.9 H MCH 34.4 H MCHC 34.1 RDW 13.8 Plt Count 183 MPV 8.9 Absolute Neuts (auto) 4.3 Neutrophils % 56.4 Lymphocytes % 24.8 Monocytes % 8.3 Eosinophils % 9.5 H Basophils % 1.0 Nucleated RBC % 0 Sodium 140 Potassium 4.3 Chloride 108 H Carbon Dioxide 25 Anion Gap 7 L BUN 23 H Creatinine 1.3 Creat Clearance w eGFR 53.96 Random Glucose 85 Calcium 8.9 Total Bilirubin 0.4 D AST 17 D ALT 29 Alkaline Phosphatase 70 Total Protein 6.1 L Albumin 3.4 Vitamin B12 944 H D Cancelled Active Medications Generic Name Dose Route Start Last Admin Trade Name Freq PRN Reason Stop Dose Admin Acetaminophen 325 mg 01/13/18 10:00 01/17/18 09:32 Tylenol - PO 325 mg BID SIENA Administration Alprazolam 0.25 mg 01/13/18 22:00 01/17/18 09:33 Xanax - PO 0.25 mg BID SIENA Administration Aspirin 81 mg 01/13/18 10:00 01/17/18 09:32 Asa - PO 81 mg DAILY SIENA Administration Carbidopa/Levodopa 1 combo 01/16/18 07:00 01/17/18 12:15 Sinemet *Cr* 25/100 - PO 1 combo 0700,1200,1700 SIENA Administration Gabapentin 100 mg 01/16/18 17:00 01/17/18 13:15 Neurontin - PO 100 mg TID SIENA Administration Heparin Sodium (Porcine) 5,000 unit 01/15/18 22:00 01/17/18 09:33 Heparin - SQ 5,000 unit BID SIENA Administration Sodium Chloride 1,000 mls @ 50 mls/hr 01/17/18 13:45 01/17/18 14:12 Normal Saline - IV 01/18/18 13:39 50 mls/hr ASDIR SIENA Administration Lisinopril 20 mg 01/13/18 10:00 01/17/18 09:33 Prinivil PO 20 mg BID SIENA Administration Miscellaneous 1 each 01/13/18 00:57 Duragesic Patch Waste MC PRN PRN PAIN Oxycodone HCl 10 mg 01/13/18 10:00 01/17/18 09:31 Roxicodone - PO 10 mg BID SIENA Administration Pramipexole Dihydrochloride 0.25 mg 01/19/18 07:00 Mirapex - PO 0700,1200,1700 SIENA Pramipexole Dihydrochloride 0.125 mg 01/15/18 07:00 01/17/18 14:02 Mirapex - PO 01/19/18 00:00 Not Given 0700,1200,1700 SIENA Senna 1 tab 01/13/18 10:00 01/17/18 09:32 Senna - PO 1 tab BID SIENA Administration ASSESSMENT/PLAN: The patient is a 72 year old male with a significant past medical history of hypertension, afib and multiple spinal surgeries who was admitted o 01/12/2018 s/ p syncope secondary to left leg pain/numbness Neuro Syncope secondary to prolonged left lower leg pain, numbness and tingling. Also left foot drop noted. Patient with previous back surgeries, states that left lower ext. numbness and tingling worsening rendering him unable to care for himself or ambulate. He is dependent on his MULTISENSOR INTELLIGENCE OFFICER for all his cares, ADLs. States pain is severe at times. Pain currently controlled with oxycodone. Neuro saw and evaluated, pt does not want to take Sinemet as per neuro recommendation. On Neurontin. Physical therapy to follow daily. Patient seeking for 2 nd opinion for his chronic left leg numbness/tingling. Various options discussed as noted on my note of 01/16/18. Check carotid doppler, orthostatics vitals signs normal, pain consult notes reviewed. Vascular study to rule out DVT ordered. 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 F.E.N. Gentle hydration with NS @ 50cc/hr monitor electrolytes low salt diet Physical therapy Heparin Disposition: full code. Visit type - Emergency Visit Emergency Visit: Yes ED Registration Date: 01/15/18 Care time: The patient presented to the Emergency Department on the above date and was hospitalized for further evaluation of their emergent condition. - New Patient This patient is new to me today: No - Critical Care Critical Care patient: No - Discharge Referral Referred to [facility] Med P.C.: No
[2018-01-17] MEDS ORDERED: SODIUM PHOSPHATE/NA BIPHOS 133 ML ENEMA PR ONE (15:56)
[2018-01-18] MEDS: GABAPENTIN 100 MG CAPSULE (FP) PO SCH ×3 (05:51→21:50)
[2018-01-18] MEDS: PRAMIPEXOLE DIHYDROCHLORIDE 0.125 MG TABLET PO SCH ×3 (06:11→16:10)
[2018-01-18 07:19] LABS: BASO % 0.8 % (0-2.0); EOS % 4.4 % (0-4.5); HEMATOCRIT 39.5 % (35.4-49); HEMOGLOBIN 13.5 GM/dL (11.7-16.9); LYMPH % 16.4 % (8-40); MCH 34.8 pg (25.7-33.7); MCHC 34.1 g/dl (32.0-35.9); MEAN CELL VOLUME 102.1 fl (80-96); MEAN PLT VOLUME 8.9 fl (7.5-11.1); MONO % 7.4 % (3.8-10.2); PLATELET COUNT 194 K/MM3 (134-434); RBC 3.87 M/mm3 (4.00-5.60); RDW 14.3 % (11.9-15.9)
[2018-01-18 07:37] LABS: ALBUMIN 3.4 g/dl (3.4-5.0); ANION GAP 7 (8-16); BLOOD UREA NITROGEN 27 mg/dL (7-18); CALCIUM 8.8 mg/dL (8.5-10.1); CHLORIDE 109 mmol/L (98-107); CO2 25 mmol/L (21-32); GLUCOSE,RANDOM 101 mg/dL (74-106); POTASSIUM 4.4 mmol/L (3.5-5.1); SODIUM 141 mmol/L (136-145)
[2018-01-18 07:41] LABS: ALK PHOS 70 U/L (45-117); BILIRUBIN,TOTAL 0.5 mg/dL (0.2-1.0); CREATININE 1.4 mg/dL (0.7-1.3); SGOT/AST 17 U/L (15-37); SGPT/ALT 12 U/L (12-78)
[2018-01-18] MEDS ORDERED: PT OWN MED DRAWER 7, Y5N ONE (10:01)
[2018-01-18] MEDS: oxyCODONE HCL 5 MG TABLET PO SCH ×2 (10:02→21:50)
[2018-01-18] MEDS: ALPRAZolam 0.25 MG TABLET PO SCH ×2 (10:03→21:51)
[2018-01-18] MEDS: ASPIRIN 81 MG CHEWABLE TABLETS PO SCH (10:03)
[2018-01-18] MEDS: SENNOSIDES 8.6MG TABLET (FP) PO SCH ×2 (10:03→21:50)
[2018-01-18] MEDS: ACETAMINOPHEN 325 MG TABLET (FP) PO SCH ×2 (10:03→21:50)
[2018-01-18] MEDS: HEPARIN NA (PORCINE) 5,000 UNITS/ML 1ML VIAL SQ SCH ×2 (10:04→21:50)
--- NOTE | 2018-01-18 16:29 | PN ---
Progress Note (short form) - Note Progress Note: Subjective: No fever or chills. denies any pain at this moment .has no ABd pain . had BM yesterdya . Objective: Vital Signs: Last Vital Signs Temp Pulse Resp BP Pulse Ox 98.0 F 82 18 134/71 98 01/18/18 13:54 01/18/18 13:54 01/18/18 13:54 01/18/18 10:00 01/18/18 09:00 Laboratory Results - last 24 hr 01/18/18 01/18/18 07:00 07:00 WBC 10.0 D RBC 3.87 L Hgb 13.5 Hct 39.5 MCV 102.1 H MCH 34.8 H MCHC 34.1 RDW 14.3 Plt Count 194 MPV 8.9 Absolute Neuts (auto) 7.1 Neutrophils % 71.0 D Lymphocytes % 16.4 D Monocytes % 7.4 Eosinophils % 4.4 Basophils % 0.8 Nucleated RBC % 0 Sodium 141 Potassium 4.4 Chloride 109 H Carbon Dioxide 25 Anion Gap 7 L BUN 27 H Creatinine 1.4 H Creat Clearance w eGFR 49.54 Random Glucose 101 Calcium 8.8 Total Bilirubin 0.5 D AST 17 ALT 12 D Alkaline Phosphatase 70 Total Protein 6.0 L Albumin 3.4 Physical Exam: CV : RRR Lungs : CTAB ext : no edema . L leg muscular atrophy Abd: sfot, NT, ND , NL BS Neuro of LE : 2/5 L hip flexion , 5/5 R hip flexion , 4/5 L knee flexion and extension , and 5/5 on R knee flexion and extension . 5/5 R ankle dorsiflexion and plantar flexion . L foot drop with 1/ 5 L ankle dorsiflexion and plantar flexion 1 + knee jerk b/l. ASSESSMENT AND PLAN: 72 y/o man with h/o P Afib, HTN, HLP , P A fib , chronic back pain and scoliosis s/p laminectomy and fusion in apr who presented with persistent weakness and pain 1- Chronic back pain and LLE weakness. weakness is chronic, no change form before . But RLE neuro exam improved since I last examined him. Now pain free. - cont neurontin and oxycodone - refused sinemet as he does not believe he has Parkinson's - Cont PT. - Nl B12 . Neg US for DVT 2- syncope : w/u neg so far . 3- Consripation : cont Bowel regimen. had BM yesterday 4- h/o A fib: cont aspirin . rate controlled 5- HTN: cont lisinopril Visit type - Emergency Visit Emergency Visit: Yes ED Registration Date: 01/15/18 Care time: The patient presented to the Emergency Department on the above date and was hospitalized for further evaluation of their emergent condition. - New Patient This patient is new to me today: Yes Date on this admission: 01/18/18 - Critical Care Critical Care patient: No
[2018-01-18] MEDS ORDERED: POLYETHYLENE GLYCOL 3350 119 GM BTL PO PRN (17:17)
[2018-01-18] MEDS ORDERED: DOCUSATE SODIUM 100 MG CAPSULE (FP) PO PRN (17:17)
[2018-01-18] MEDS: SODIUM CHLORIDE 1,000 ML IV SCH (18:11)
[2018-01-19] MEDS ORDERED: PT OWN MED DRAWER 7, Y5N ONE (06:19)
[2018-01-19] MEDS: PRAMIPEXOLE DIHYDROCHLORIDE 0.25 MG TABLET PO SCH ×3 (06:53→16:38)
[2018-01-19] MEDS: GABAPENTIN 100 MG CAPSULE (FP) PO SCH ×3 (06:53→21:10)
[2018-01-19 07:34] LABS: ANION GAP 8 (8-16); BLOOD UREA NITROGEN 27 mg/dL (7-18); CALCIUM 8.3 mg/dL (8.5-10.1); CHLORIDE 110 mmol/L (98-107); CO2 23 mmol/L (21-32); CREATININE 1.2 mg/dL (0.7-1.3); GLUCOSE,RANDOM 81 mg/dL (74-106); POTASSIUM 4.5 mmol/L (3.5-5.1); SODIUM 141 mmol/L (136-145)
--- NOTE | 2018-01-19 09:19 | PN ---
Progress Note (short form) - Note Progress Note: Subjective: The patient was seen and examined at the bedside, he states he would like a second opinion regarding his parkinson's diagnosis. Current Medications Generic Name Dose Route Start Last Admin Trade Name Freq PRN Reason Stop Dose Admin Acetaminophen 325 mg 01/13/18 10:00 01/19/18 10:06 Tylenol - PO 325 mg BID SIENA Administration Alprazolam 0.25 mg 01/13/18 22:00 01/19/18 10:06 Xanax - PO 0.25 mg BID SIENA Administration Aspirin 81 mg 01/13/18 10:00 01/19/18 10:05 Asa - PO 81 mg DAILY SIENA Administration Carbidopa/Levodopa 1 combo 01/16/18 07:00 01/19/18 06:53 Sinemet *Cr* 25/100 - PO Not Given 0700,1200,1700 SIENA Docusate Sodium 100 mg 01/18/18 17:17 Colace - PO Q12H PRN CONSTIPATION Gabapentin 100 mg 01/16/18 17:00 01/19/18 06:53 Neurontin - PO 100 mg TID SIENA Administration Guaifenesin 10 ml 01/19/18 10:50 Robitussin - PO Q8H PRN COUGH Heparin Sodium (Porcine) 5,000 unit 01/15/18 22:00 01/19/18 10:05 Heparin - SQ 5,000 unit BID SIENA Administration Sodium Chloride 1,000 mls @ 75 mls/hr 01/18/18 16:45 01/18/18 18:11 Normal Saline - IV 75 mls/hr ASDIR SIENA Administration Lisinopril 20 mg 01/19/18 10:00 01/19/18 10:05 Prinivil PO 20 mg DAILY SIENA Administration Oxycodone HCl 10 mg 01/13/18 10:00 01/19/18 10:06 Roxicodone - PO 10 mg BID SIENA Administration Polyethylene Glycol 17 gm 01/18/18 17:17 Miralax (For Daily Use) - PO Q24H PRN CONSTIPATION Pramipexole Dihydrochloride 0.25 mg 01/19/18 07:00 01/19/18 06:53 Mirapex - PO Not Given 0700,1200,1700 SIENA Senna 1 tab 01/13/18 10:00 01/19/18 10:06 Senna - PO 1 tab BID SIENA Administration Objective: Vital Signs Period Temp Pulse Resp BP Sys/Suazo Pulse Ox Last 24 Hr 98.0 F-98.9 F 77-96 18-20 105-109/52-63 98 Physical Exam: Patient refused CBCD WBC 10.0 K/mm3 (4.0-10.0) D 01/18/18 07:00 RBC 3.87 M/mm3 (4.00-5.60) L 01/18/18 07:00 Hgb 13.5 GM/dL (11.7-16.9) 01/18/18 07:00 Hct 39.5 % (35.4-49) 01/18/18 07:00 MCV 102.1 fl (80-96) H 01/18/18 07:00 MCHC 34.1 g/dl (32.0-35.9) 01/18/18 07:00 RDW 14.3 % (11.9-15.9) 01/18/18 07:00 Plt Count 194 K/MM3 (134-434) 01/18/18 07:00 MPV 8.9 fl (7.5-11.1) 01/18/18 07:00 CMP Sodium 141 mmol/L (136-145) 01/19/18 06:45 Potassium 4.5 mmol/L (3.5-5.1) 01/19/18 06:45 Chloride 110 mmol/L (98-107) H 01/19/18 06:45 Carbon Dioxide 23 mmol/L (21-32) 01/19/18 06:45 Anion Gap 8 (8-16) 01/19/18 06:45 BUN 27 mg/dL (7-18) H 01/19/18 06:45 Creatinine 1.2 mg/dL (0.7-1.3) 01/19/18 06:45 Creat Clearance w eGFR 59.18 (>60) 01/19/18 06:45 Random Glucose 81 mg/dL (74-106) 01/19/18 06:45 Calcium 8.3 mg/dL (8.5-10.1) L 01/19/18 06:45 Total Bilirubin 0.5 mg/dL (0.2-1.0) D 01/18/18 07:00 AST 17 U/L (15-37) 01/18/18 07:00 ALT 12 U/L (12-78) D 01/18/18 07:00 Alkaline Phosphatase 70 U/L (45-117) 01/18/18 07:00 Total Protein 6.0 g/dl (6.4-8.2) L 01/18/18 07:00 Albumin 3.4 g/dl (3.4-5.0) 01/18/18 07:00 CARDIAC ENZYMES Creatine Kinase 69 IU/L (39-308) 01/12/18 20:52 Troponin I < 0.02 ng/ml (0.00-0.05) 01/12/18 20:52 Microbiology 01/15/18 22:00 Urine - Urine Clean Catch Urine Culture - Final NO GROWTH OBTAINED 01/13/18 06:24 Urine - Urine Clean Catch Urine Culture - Final Contaminated: Please Repeat Assessment: This is a 72 year old female male with PMHx of HTN, a.fib, multiple spinal surgeries who presented to the ED with syncope 2/2 severe left leg pain. Plan: 1) Syncope - Likely vasovagal 2/2 pain - Carotid dopplers with no evidence of hemodynamically significant stenosis - Head CT with no significant interval change 2) TODD - Resolved 3) Chronic back pain with LLE weakness (chronic) - Patient appears comfortable - Continue neurontin and oxycodone - Patient refusing sinemet and pramipexole stating "I don't have Parkinson's" - Order placed for 2nd opinion with Dr. Ge - Continue PT 4) Hx of a.fib - Continue ASA - Rate controlled 5) HTN - Continue Lisinopril 6) F/E/N: - Sodium controlled diet - Monitor electrolytes 7) Dispo: - Awaiting second opinion from neurology CODE STATUS: FULL CODE Visit type - Emergency Visit Emergency Visit: Yes ED Registration Date: 01/15/18 Care time: The patient presented to the Emergency Department on the above date and was hospitalized for further evaluation of their emergent condition. - New Patient This patient is new to me today: Yes Date on this admission: 01/19/18 - Critical Care Critical Care patient: No
[2018-01-19] MEDS: ASPIRIN 81 MG CHEWABLE TABLETS PO SCH (10:05)
[2018-01-19] MEDS: HEPARIN NA (PORCINE) 5,000 UNITS/ML 1ML VIAL SQ SCH ×2 (10:05→21:10)
[2018-01-19] MEDS: LISINOPRIL 20 MG TABLET (FP) PO SCH (10:05)
[2018-01-19] MEDS: ACETAMINOPHEN 325 MG TABLET (FP) PO SCH ×2 (10:06→21:09)
[2018-01-19] MEDS: oxyCODONE HCL 5 MG TABLET PO SCH ×2 (10:06→21:09)
[2018-01-19] MEDS: SENNOSIDES 8.6MG TABLET (FP) PO SCH ×2 (10:06→21:09)
[2018-01-19] MEDS: ALPRAZolam 0.25 MG TABLET PO SCH ×2 (10:06→21:09)
[2018-01-19] MEDS ORDERED: guaiFENesin 200 MG/10 ML 10 ML UNIT-DOSE CUPS PO PRN (10:50)
[2018-01-19] MEDS: SODIUM CHLORIDE 1,000 ML IV SCH (21:09)
[2018-01-20] MEDS ORDERED: PT OWN MED DRAWER 7, Y5N ONE (06:02)
[2018-01-20] MEDS: PRAMIPEXOLE DIHYDROCHLORIDE 0.25 MG TABLET PO SCH ×3 (06:06→16:55)
[2018-01-20] MEDS: GABAPENTIN 100 MG CAPSULE (FP) PO SCH ×3 (06:06→22:08)
--- NOTE | 2018-01-20 09:45 | CONSULT ---
Consult - text type - Consultation Consultation Note: Neurology CHIEF COMPLAINT: Second opinion HISTORY OF PRESENT ILLNESS: The patient is a 72 yo m w/ PMH paroxysmal afib, HTN and lumbar spinal surgery x2 with residual chronic left leg pain, numbness and left foot drop who was BIBEMS after and episode of syncope. Reportedly, the episode was witnessed by his aide, and has ongoing ambulation difficulty with dizzyness prior to event. There was no evidence of seizure and specifically no shaking, no incontinuence or postictal symptoms. He was seen by Dr. Quan and per his note, knows the patient well. Reported being concerned about Parkinson's Disease and recommended L-Dopa along with Pramipexole. The patient did not agree with the diagnosis and has not been taking the medication according to the nurse I spoke with. On my evaluation, he did not demonstrate tremor or cogwheeling, does not have masked facies and actually is quite animated. I did not appreciate significant bradykinesia. His ambulation and gait are complicated by his lumbar pathology. Recent Travel: none PAST MEDICAL HISTORY: HTN, HLD, paroxysmal A-fib, normal pressure hydrocephalus, diverticulitis, IBS, BPH PAST SURGICAL HISTORY: Right UVJ stent insertion Hernia Repair Lspine laminectomy and fusion x2 Social History: Smoking: former smoker with 20 year history; quit in 1969 Alcohol: denies Drugs: denies Family History: non-contributory Allergies pregabalin [From Lyrica] Allergy (Mild, Verified 10/29/17 04:08) pravastatin sodium [From Pravachol] Allergy (Unknown, Verified 10/29/17 04:08) however, pt takes atorvastatin 10 mg daily at home, reportedly without side effects morphine Allergy (Verified 10/29/17 04:08) unknown peanut Allergy (Verified 10/29/17 04:08) Penicillins Allergy (Verified 10/29/17 04:08) unknown affect lactose Adverse Reaction (Verified 10/29/17 04:08) Nausea Active Medications Acetaminophen (Tylenol -) 325 mg PO BID [facility] Last Admin: 01/19/18 21:09 Dose: 325 mg Alprazolam (Xanax -) 0.25 mg PO BID [facility] Last Admin: 01/19/18 21:09 Dose: 0.25 mg Aspirin (Asa -) 81 mg PO DAILY [facility] Last Admin: 01/19/18 10:05 Dose: 81 mg Carbidopa/Levodopa (Sinemet *Cr* 25/100 -) 1 combo PO 0700,1200,1700 [facility] Last Admin: 01/20/18 06:07 Dose: Not Given Docusate Sodium (Colace -) 100 mg PO Q12H PRN PRN Reason: CONSTIPATION Gabapentin (Neurontin -) 100 mg PO TID [facility] Last Admin: 01/20/18 06:06 Dose: 100 mg Guaifenesin (Robitussin -) 10 ml PO Q8H PRN PRN Reason: COUGH Last Admin: 01/19/18 12:30 Dose: 10 ml Heparin Sodium (Porcine) (Heparin -) 5,000 unit SQ BID [facility] Last Admin: 01/19/18 21:10 Dose: 5,000 unit Sodium Chloride (Normal Saline -) 1,000 mls @ 75 mls/hr IV ASDIR [facility] Last Admin: 01/19/18 21:09 Dose: 75 mls/hr Lisinopril (Prinivil) 20 mg PO DAILY [facility] Last Admin: 01/19/18 10:05 Dose: 20 mg Oxycodone HCl (Roxicodone -) 10 mg PO BID [facility] Last Admin: 01/19/18 21:09 Dose: 10 mg Polyethylene Glycol (Miralax (For Daily Use) -) 17 gm PO Q24H PRN PRN Reason: CONSTIPATION Pramipexole Dihydrochloride (Mirapex -) 0.25 mg PO 0700,1200,1700 [facility] Last Admin: 01/20/18 06:06 Dose: Not Given Senna (Senna -) 1 tab PO BID [facility] Last Admin: 01/19/18 21:09 Dose: 1 tab REVIEW OF SYSTEMS CONSTITUTIONAL: Absent: fever, chills, diaphoresis, generalized weakness, malaise, loss of appetite, weight change HEENT: Absent: rhinorrhea, nasal congestion, throat pain, throat swelling, difficulty swallowing, mouth swelling, ear pain, eye pain, visual changes CARDIOVASCULAR: Absent: chest pain, syncope, palpitations, irregular heart rate, lightheadedness , peripheral edema RESPIRATORY: Absent: cough, shortness of breath, dyspnea with exertion, orthopnea, wheezing, stridor, hemoptysis GASTROINTESTINAL: Absent: abdominal pain, abdominal distension, nausea, vomiting, diarrhea, melena , hematochezia GENITOURINARY: Absent: dysuria, frequency, urgency, hesitancy, hematuria, flank pain, genital pain MUSCULOSKELETAL: Absent: myalgia, arthralgia, joint swelling, neck pain SKIN: Absent: rash, itching, pallor HEMATOLOGIC/IMMUNOLOGIC: Absent: easy bleeding, easy bruising, lymphadenopathy, frequent infections ENDOCRINE: Absent: unexplained weight gain, unexplained weight loss, heat intolerance, cold intolerance NEUROLOGIC: Absent: headache, seizure, mental status changes, bladder or bowel incontinence PSYCHIATRIC: Absent: anxiety, depression, suicidal or homicidal ideation, hallucinations. PHYSICAL EXAMINATION Vital Signs Period Temp Pulse Resp BP Sys/Suazo Pulse Ox Last 24 Hr 98.0 F-98.8 F 78-87 18-20 88-140/57-82 98 GENERAL: Awake, alert, and fully oriented, in no acute distress. HEAD: Normal with no signs of trauma. EYES: Pupils equal, round and reactive to light, extraocular movements intact, sclera anicteric, conjunctiva clear. No lid lag. EARS, NOSE, THROAT: oropharynx clear without exudates. Moist mucous membranes. NECK: Normal range of motion, supple without lymphadenopathy, JVD, or masses. LUNGS: Breath sounds equal, clear to auscultation bilaterally. No wheezes, and no crackles. No accessory muscle use. HEART: Regular rate and rhythm, normal S1 and S2 without murmur, rub or gallop. ABDOMEN: Soft, nontender, not distended, normoactive bowel sounds, no guarding, no rebound, no masses. No hepatomegaly or splenomegaly. MUSCULOSKELETAL: Normal range of motion at all joints. No bony deformities or tenderness. No CVA tenderness. LOWER EXTREMITIES: 2+ pulses, warm, well-perfused. No calf tenderness. No peripheral edema. NEUROLOGICAL: Cranial nerves II-X intact. Strenght 5/5 in UE, 3+/5 in LE, decreased LT in LLE. No cogwheeling, no tremor, no masked facies. CBCD WBC 10.0 K/mm3 (4.0-10.0) D 01/18/18 07:00 RBC 3.87 M/mm3 (4.00-5.60) L 01/18/18 07:00 Hgb 13.5 GM/dL (11.7-16.9) 01/18/18 07:00 Hct 39.5 % (35.4-49) 01/18/18 07:00 MCV 102.1 fl (80-96) H 01/18/18 07:00 MCHC 34.1 g/dl (32.0-35.9) 01/18/18 07:00 RDW 14.3 % (11.9-15.9) 01/18/18 07:00 Plt Count 194 K/MM3 (134-434) 01/18/18 07:00 MPV 8.9 fl (7.5-11.1) 01/18/18 07:00 CMP Sodium 141 mmol/L (136-145) 01/19/18 06:45 Potassium 4.5 mmol/L (3.5-5.1) 01/19/18 06:45 Chloride 110 mmol/L (98-107) H 01/19/18 06:45 Carbon Dioxide 23 mmol/L (21-32) 01/19/18 06:45 Anion Gap 8 (8-16) 01/19/18 06:45 BUN 27 mg/dL (7-18) H 01/19/18 06:45 Creatinine 1.2 mg/dL (0.7-1.3) 01/19/18 06:45 Creat Clearance w eGFR 59.18 (>60) 01/19/18 06:45 Random Glucose 81 mg/dL (74-106) 01/19/18 06:45 Calcium 8.3 mg/dL (8.5-10.1) L 01/19/18 06:45 Total Bilirubin 0.5 mg/dL (0.2-1.0) D 01/18/18 07:00 AST 17 U/L (15-37) 01/18/18 07:00 ALT 12 U/L (12-78) D 01/18/18 07:00 Alkaline Phosphatase 70 U/L (45-117) 01/18/18 07:00 Total Protein 6.0 g/dl (6.4-8.2) L 01/18/18 07:00 Albumin 3.4 g/dl (3.4-5.0) 01/18/18 07:00 CARDIAC ENZYMES Creatine Kinase 69 IU/L (39-308) 01/12/18 20:52 Troponin I < 0.02 ng/ml (0.00-0.05) 01/12/18 20:52 Imaging: CT head reviewed ASSESSMENT/PLAN: 72 yo m w/ PMH paroxysmal afib, HTN and lumbar spinal surgery x2 with residual chronic left leg pain, numbness and left foot drop who was BIBEMS after and episode of syncope. Reportedly, the episode was witnessed by his aide, and has ongoing ambulation difficulty with dizzyness prior to event. There was no evidence of seizure and specifically no shaking, no incontinuence or postictal symptoms. He was seen by Dr. Quan and per his note, knows the patient well. Reported being concerned about Parkinson's Disease and recommended L-Dopa along with Pramipexole. The patient did not agree with the diagnosis and has not been taking the medication according to the nurse I spoke with. On my evaluation, he did not demonstrate tremor or cogwheeling, does not have masked facies and actually is quite animated. I did not appreciate significant bradykinesia. His ambulation and gait are complicated by his lumbar pathology. I would not classify him as Parkinson's Disease and he is not interested in taking medication for it at this time. Would be able to follow him outpatient though states he has neurologist at [facility] he sees and can follow up outpatient with him. Continue hydration, monitor blood pressures, maintain normotensive range. Carotid doppler without HD significant stenosis. Fall precautions, if ambulation not feasible, consider rehab placement if patient amenable.
[2018-01-20] MEDS: ALPRAZolam 0.25 MG TABLET PO SCH ×2 (10:39→22:09)
[2018-01-20] MEDS: LISINOPRIL 20 MG TABLET (FP) PO SCH (10:39)
[2018-01-20] MEDS: oxyCODONE HCL 5 MG TABLET PO SCH ×2 (10:39→22:09)
[2018-01-20] MEDS: ASPIRIN 81 MG CHEWABLE TABLETS PO SCH (10:39)
[2018-01-20] MEDS: HEPARIN NA (PORCINE) 5,000 UNITS/ML 1ML VIAL SQ SCH ×2 (10:39→22:13)
[2018-01-20] MEDS: SENNOSIDES 8.6MG TABLET (FP) PO SCH ×2 (10:40→22:08)
[2018-01-20] MEDS: ACETAMINOPHEN 325 MG TABLET (FP) PO SCH ×2 (10:40→22:10)
--- NOTE | 2018-01-20 11:58 | PN ---
Progress Note (short form) - Note Progress Note: Subjective: The patient was seen and examined at the bedside, he and his health aide have concerns that he is not better and that he is now bed bound and would like another surgical opinion. Called and spoke to Dr. Humphrey at [facility] who has denied the patient for transfer stating the patient does not require a high level of care. F/u pain management consult Current Medications Generic Name Dose Route Start Last Admin Trade Name Freq PRN Reason Stop Dose Admin Acetaminophen 325 mg 01/13/18 10:00 01/19/18 10:06 Tylenol - PO 325 mg BID SIENA Administration Alprazolam 0.25 mg 01/13/18 22:00 01/19/18 10:06 Xanax - PO 0.25 mg BID SIENA Administration Aspirin 81 mg 01/13/18 10:00 01/19/18 10:05 Asa - PO 81 mg DAILY SIENA Administration Carbidopa/Levodopa 1 combo 01/16/18 07:00 01/19/18 06:53 Sinemet *Cr* 25/100 - PO Not Given 0700,1200,1700 SIENA Docusate Sodium 100 mg 01/18/18 17:17 Colace - PO Q12H PRN CONSTIPATION Gabapentin 100 mg 01/16/18 17:00 01/19/18 06:53 Neurontin - PO 100 mg TID SIENA Administration Guaifenesin 10 ml 01/19/18 10:50 Robitussin - PO Q8H PRN COUGH Heparin Sodium (Porcine) 5,000 unit 01/15/18 22:00 01/19/18 10:05 Heparin - SQ 5,000 unit BID SIENA Administration Sodium Chloride 1,000 mls @ 75 mls/hr 01/18/18 16:45 01/18/18 18:11 Normal Saline - IV 75 mls/hr ASDIR SIENA Administration Lisinopril 20 mg 01/19/18 10:00 01/19/18 10:05 Prinivil PO 20 mg DAILY SIENA Administration Oxycodone HCl 10 mg 01/13/18 10:00 01/19/18 10:06 Roxicodone - PO 10 mg BID SIENA Administration Polyethylene Glycol 17 gm 01/18/18 17:17 Miralax (For Daily Use) - PO Q24H PRN CONSTIPATION Pramipexole Dihydrochloride 0.25 mg 01/19/18 07:00 01/19/18 06:53 Mirapex - PO Not Given 0700,1200,1700 SIENA Senna 1 tab 01/13/18 10:00 01/19/18 10:06 Senna - PO 1 tab BID SIENA Administration Objective: Vital Signs Period Temp Pulse Resp BP Sys/Suazo Pulse Ox Last 24 Hr 98.0 F-98.8 F 78-87 18-20 88-140/57-82 98 Physical Exam: Patient refused CBCD WBC 10.0 K/mm3 (4.0-10.0) D 01/18/18 07:00 RBC 3.87 M/mm3 (4.00-5.60) L 01/18/18 07:00 Hgb 13.5 GM/dL (11.7-16.9) 01/18/18 07:00 Hct 39.5 % (35.4-49) 01/18/18 07:00 MCV 102.1 fl (80-96) H 01/18/18 07:00 MCHC 34.1 g/dl (32.0-35.9) 01/18/18 07:00 RDW 14.3 % (11.9-15.9) 01/18/18 07:00 Plt Count 194 K/MM3 (134-434) 01/18/18 07:00 MPV 8.9 fl (7.5-11.1) 01/18/18 07:00 CMP Sodium 141 mmol/L (136-145) 01/19/18 06:45 Potassium 4.5 mmol/L (3.5-5.1) 01/19/18 06:45 Chloride 110 mmol/L (98-107) H 01/19/18 06:45 Carbon Dioxide 23 mmol/L (21-32) 01/19/18 06:45 Anion Gap 8 (8-16) 01/19/18 06:45 BUN 27 mg/dL (7-18) H 01/19/18 06:45 Creatinine 1.2 mg/dL (0.7-1.3) 01/19/18 06:45 Creat Clearance w eGFR 59.18 (>60) 01/19/18 06:45 Random Glucose 81 mg/dL (74-106) 01/19/18 06:45 Calcium 8.3 mg/dL (8.5-10.1) L 01/19/18 06:45 Total Bilirubin 0.5 mg/dL (0.2-1.0) D 01/18/18 07:00 AST 17 U/L (15-37) 01/18/18 07:00 ALT 12 U/L (12-78) D 01/18/18 07:00 Alkaline Phosphatase 70 U/L (45-117) 01/18/18 07:00 Total Protein 6.0 g/dl (6.4-8.2) L 01/18/18 07:00 Albumin 3.4 g/dl (3.4-5.0) 01/18/18 07:00 CARDIAC ENZYMES Creatine Kinase 69 IU/L (39-308) 01/12/18 20:52 Troponin I < 0.02 ng/ml (0.00-0.05) 01/12/18 20:52 Microbiology 01/15/18 22:00 Urine - Urine Clean Catch Urine Culture - Final NO GROWTH OBTAINED 01/13/18 06:24 Urine - Urine Clean Catch Urine Culture - Final Contaminated: Please Repeat Assessment: This is a 72 year old female male with PMHx of HTN, a.fib, multiple spinal surgeries who presented to the ED with syncope 2/2 severe left leg pain. 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 Ge consult for second opinion 4) Hx of a.fib - Continue ASA - Rate controlled 5) HTN - Continue Lisinopril 6) F/E/N: - Sodium controlled diet - Monitor electrolytes 7) Dispo: - The patient discussed care with Rosey Arana. Attempted to transfer patient to [facility] for second opinion and he was denied - Will call [facility] for possible transfer for second opinion CODE STATUS: FULL CODE Visit type - Emergency Visit Emergency Visit: Yes ED Registration Date: 01/15/18 Care time: The patient presented to the Emergency Department on the above date and was hospitalized for further evaluation of their emergent condition. - New Patient This patient is new to me today: No - Critical Care Critical Care patient: No
[2018-01-21] MEDS: SODIUM CHLORIDE 1,000 ML IV SCH ×3 (01:45→15:48)
[2018-01-21] MEDS ORDERED: PT OWN MED DRAWER 7, Y5N ONE (05:29)
[2018-01-21] MEDS: GABAPENTIN 100 MG CAPSULE (FP) PO SCH ×3 (05:43→21:12)
[2018-01-21] MEDS: PRAMIPEXOLE DIHYDROCHLORIDE 0.25 MG TABLET PO SCH ×4 (06:12→16:29)
[2018-01-21] MEDS: ACETAMINOPHEN 325 MG TABLET (FP) PO SCH ×2 (09:38→21:14)
[2018-01-21] MEDS: SENNOSIDES 8.6MG TABLET (FP) PO SCH ×2 (09:38→21:12)
[2018-01-21] MEDS: oxyCODONE HCL 5 MG TABLET PO SCH ×2 (09:39→21:13)
[2018-01-21] MEDS: LISINOPRIL 20 MG TABLET (FP) PO SCH (09:40)
[2018-01-21] MEDS: HEPARIN NA (PORCINE) 5,000 UNITS/ML 1ML VIAL SQ SCH ×2 (09:40→21:12)
[2018-01-21] MEDS: ASPIRIN 81 MG CHEWABLE TABLETS PO SCH (09:40)
[2018-01-21] MEDS: ALPRAZolam 0.25 MG TABLET PO SCH ×2 (09:40→21:12)
--- NOTE | 2018-01-21 13:54 | PN ---
Progress Note (short form) - Note Progress Note: Subjective: The patient was seen and examined at the bedside, discussed care at length with the patient. He is open to the option of having a neurostimulator, but would like to discuss with a neurosurgeon other than the ones we have at [facility] Awaiting decision from [facility] regarding transfer. Current Medications Generic Name Dose Route Start Last Admin Trade Name Freq PRN Reason Stop Dose Admin Acetaminophen 325 mg 01/13/18 10:00 01/21/18 09:38 Tylenol - PO 325 mg BID SIENA Administration Alprazolam 0.25 mg 01/13/18 22:00 01/21/18 09:40 Xanax - PO 0.25 mg BID SIENA Administration Aspirin 81 mg 01/13/18 10:00 01/21/18 09:40 Asa - PO 81 mg DAILY SIENA Administration Carbidopa/Levodopa 1 combo 01/16/18 07:00 01/21/18 11:50 Sinemet *Cr* 25/100 - PO Not Given 0700,1200,1700 SIENA Docusate Sodium 100 mg 01/18/18 17:17 Colace - PO Q12H PRN CONSTIPATION Gabapentin 100 mg 01/16/18 17:00 01/21/18 05:43 Neurontin - PO 100 mg TID SIENA Administration Guaifenesin 10 ml 01/19/18 10:50 01/19/18 12:30 Robitussin - PO 10 ml Q8H PRN Administration COUGH Heparin Sodium (Porcine) 5,000 unit 01/15/18 22:00 01/21/18 09:40 Heparin - SQ 5,000 unit BID SIENA Administration Sodium Chloride 1,000 mls @ 75 mls/hr 01/18/18 16:45 01/21/18 01:45 Normal Saline - IV 75 mls/hr ASDIR SIENA Administration Lisinopril 20 mg 01/19/18 10:00 01/21/18 09:40 Prinivil PO 20 mg DAILY SIENA Administration Oxycodone HCl 10 mg 01/13/18 10:00 01/21/18 09:39 Roxicodone - PO 10 mg BID SIENA Administration Polyethylene Glycol 17 gm 01/18/18 17:17 Miralax (For Daily Use) - PO Q24H PRN CONSTIPATION Pramipexole Dihydrochloride 0.25 mg 01/19/18 07:00 01/21/18 11:50 Mirapex - PO Not Given 0700,1200,1700 SIENA Senna 1 tab 01/13/18 10:00 01/21/18 09:38 Senna - PO 1 tab BID SIENA Administration Objective: Vital Signs Period Temp Pulse Resp BP Sys/Suazo Pulse Ox Last 24 Hr 97.8 F-98.4 F 68-84 18-20 117-155/62-97 96-98 Physical Exam: Patient refused CBCD WBC 10.0 K/mm3 (4.0-10.0) D 01/18/18 07:00 RBC 3.87 M/mm3 (4.00-5.60) L 01/18/18 07:00 Hgb 13.5 GM/dL (11.7-16.9) 01/18/18 07:00 Hct 39.5 % (35.4-49) 01/18/18 07:00 MCV 102.1 fl (80-96) H 01/18/18 07:00 MCHC 34.1 g/dl (32.0-35.9) 01/18/18 07:00 RDW 14.3 % (11.9-15.9) 01/18/18 07:00 Plt Count 194 K/MM3 (134-434) 01/18/18 07:00 MPV 8.9 fl (7.5-11.1) 01/18/18 07:00 CMP Sodium 141 mmol/L (136-145) 01/19/18 06:45 Potassium 4.5 mmol/L (3.5-5.1) 01/19/18 06:45 Chloride 110 mmol/L (98-107) H 01/19/18 06:45 Carbon Dioxide 23 mmol/L (21-32) 01/19/18 06:45 Anion Gap 8 (8-16) 01/19/18 06:45 BUN 27 mg/dL (7-18) H 01/19/18 06:45 Creatinine 1.2 mg/dL (0.7-1.3) 01/19/18 06:45 Creat Clearance w eGFR 59.18 (>60) 01/19/18 06:45 Random Glucose 81 mg/dL (74-106) 01/19/18 06:45 Calcium 8.3 mg/dL (8.5-10.1) L 01/19/18 06:45 Total Bilirubin 0.5 mg/dL (0.2-1.0) D 01/18/18 07:00 AST 17 U/L (15-37) 01/18/18 07:00 ALT 12 U/L (12-78) D 01/18/18 07:00 Alkaline Phosphatase 70 U/L (45-117) 01/18/18 07:00 Total Protein 6.0 g/dl (6.4-8.2) L 01/18/18 07:00 Albumin 3.4 g/dl (3.4-5.0) 01/18/18 07:00 CARDIAC ENZYMES Creatine Kinase 69 IU/L (39-308) 01/12/18 20:52 Troponin I < 0.02 ng/ml (0.00-0.05) 01/12/18 20:52 Microbiology 01/15/18 22:00 Urine - Urine Clean Catch Urine Culture - Final NO GROWTH OBTAINED 01/13/18 06:24 Urine - Urine Clean Catch Urine Culture - Final Contaminated: Please Repeat Assessment: This is a 72 year old female male with PMHx of HTN, a.fib, multiple spinal surgeries who presented to the ED with syncope 2/2 severe left leg pain. Plan: 1) Syncope - Likely vasovagal 2/2 pain - Carotid dopplers with no evidence of hemodynamically significant stenosis - Head CT with no significant interval change 2) TODD - Resolved 3) Chronic back pain with LLE weakness (chronic) - Patient appears comfortable - Continue neurontin and oxycodone - Patient refusing sinemet and pramipexole stating "I don't have Parkinson's" - Continue PT - For possible transfer for second opinion as the patient is refusing to see Dr. 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 Ge consult for second opinion 4) Hx of a.fib - Continue ASA - Rate controlled 5) HTN - Continue Lisinopril 6) F/E/N: - RN reports patient has coughing while eating. Discussed with Lorna Nguyen, for swallow evaluation - Sodium controlled diet - Monitor electrolytes 7) Dispo: - The patient discussed care with Rosey Arana. Attempted to transfer patient to [facility] for second opinion and he was denied - Called and faxed information to [facility], awaiting call back if the patient is accepted - Patient is open to discussing neurostimulator with a neurosurgeon, but not a neurosurgeon from here CODE STATUS: FULL CODE Visit type - Emergency Visit Emergency Visit: Yes ED Registration Date: 01/15/18 Care time: The patient presented to the Emergency Department on the above date and was hospitalized for further evaluation of their emergent condition. - New Patient This patient is new to me today: No - Critical Care Critical Care patient: No
--- NOTE | 2018-01-21 15:24 | CONSULT ---
Admitting History and Physical - Primary Care Physician PCP: Génesis Bansal - Admission History of Present Illness: This is a 72 year old female male with PMHx of HTN, a.fib, multiple spinal surgeries who presented to the ED with syncope 2/2 severe left leg pain. Selected Entries 01/21/18 01/21/18 01/21/18 05:57 08:00 14:00 Breakfast 75% 75% Diet Tolerated Well Well Lunch 100% Temperature 98.4 F 98.1 F 98.4 F Laboratory Tests 01/18/18 07:00 WBC 10.0 D This is my first consult with this pt. History Source: Patient Limitations to Obtaining History: No Limitations - Past Medical History [place]: Yes: Syncope Cardiovascular: Yes: HTN, Hyperlipdemia, Other Pulmonary: Yes: COPD Gastrointestinal: Yes: Constipation, Hiatal Hernia, Irritable Bowel Disease Renal/: Yes: Renal Inusuff, BPH, Renal Calculi (s/p stent placement) Heme/Onc: No: Anemia, B12 Deficiency, Bleeding Disorder, Cancer, Current Chemotherapy, Current Radiation Therapy, Hemochromatosis, Hypercoaguable State, Myeloproliferative Synd, Sickle Cell Disease, Sickle Cell Trait, Thrombocytopenia, Other Infectious Disease: Yes: Other Psych: Yes: Anxiety, Depression Musculoskeletal: Yes: Chronic low back pain, Osteoarthritis - Past Surgical History Past Surgical History: Yes: Hernia Repair, Laminectomy - Advance Directives Advance Directives: Yes: Health Care Proxy - Smoking History Smoking history: Former smoker Have you smoked in the past 12 months: No Aproximately how many cigarettes per day: 0 If you are a former smoker, when did you quit?: 1969 - Alcohol/Substance Use Hx Alcohol Use: No History of Substance Use: reports: None - Social History 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 Travel: No History - Admission Reason For Visit: HISTORY OF LEFT FOOT DROP,HYPERLIPIDEMIA,SYNCOPE - Diagnostics X-ray: Report Reviewed - General Mental Status: Alert and Oriented, Awake and Alert, Able to Follow Commands Attention: Intact Ability to Follow Directions: Excellent - Hearing Hearing: Normal Speech Evaluation - Communication Primary Language: GEORGIAN Communication: Yes: Within Normal Limits - Speech Production Able to Make Needs Known: Yes: WNL Intelligibility: Yes: WNL - Speech Characteristics Voice Loudness: Mildly Soft/Quiet Voice Phonatory-based Quality: Yes: Hoarse, Dysphonia (reports hoarse voice x 3 months) Nasal Resonance: Normal Articulation: Yes: Precise - Language/Auditory Comprehension Follows: Yes: 2 Stage Simple Commands - Language/Verbal Expression Able to Respond to Simple Queries: Yes: WNL Able to Communicate Wants and Needs: Yes: WNL Functional Communication Status: Yes: WNL - Memory/Perception long term care social worker Memory: Yes: WNL Short Term Memory: Yes: WNL - Swallow Evaluation/Bedside Assessment Current Nutritional Intake: Regular, Thin Liquids Dentition: Yes: Edentulous, Missing Teeth Facial Symmetry at Rest: Symmetrical Facial Symmetry on Retraction: Symmetrical Facial Movement: Controlled Sensation: Normal Against Resistance Opening: Normal Against Resistance Closing: Normal Pucker Lips: Normal Smile: Normal Lingual Movement: Normal, Symmetric Lingual Speed of Movement: Normal Lingual Movement Strgth Against Opposition: Normal Lingual Movement Characteristics: Normal Velopharyngeal Movement: Normal Laryngeal Movement: Reduced Excursion, Reduced Velocity Labial Seal: WFL Chewing: Impaired Oral Prep Time: WFL A-P Transit: WFL Pocketing: None Timing of Swallow: Delayed Coughing/Throat Clear: Yes (On thin liquid. Pt reports choking during every meal , for a year.) Change in Voice: Yes Recommendations - Speech Evaluation, Impression/Plan Impression: Dysphonia. Coughs mealtime. Limited dentition.Suspect Aspiration . H /o smoking but quit long ago. - Disposition Discharge to: To be Determined - Dysphagia Impressions/Plan Swallowing Skills: Impaired Dysphagia Impressions: Moderate Impairment, Suspect Aspiration *Silent aspiration: cannot be R/O at bedside Dysphagia Treatment Plan: Chin Tuck/Down, Facilitative Feeding, Safe Rate, 1/2 tsp. at a time, Elevate HOB during feed Recommendations: ENT Consult (Visualize vocal cords. Dysphonia.), Modified Barium Swallow, Other (Pt is bedbound but does not have a hospital bed at home.) - Recommendations Diet Consistency: Dysphagia Minced Medication Administration: Crushed with applesauce Liquids: [place] Thick Supplement: Magic Cup, Other (Ensure compact)
[2018-01-22] MEDS: HEPARIN NA (PORCINE) 5,000 UNITS/ML 1ML VIAL SQ SCH ×2 (05:56→13:57)
[2018-01-22] MEDS: GABAPENTIN 100 MG CAPSULE (FP) PO SCH ×2 (05:56→13:57)
--- NOTE | 2018-01-22 09:36 | PN ---
Physical Exam: SUBJECTIVE: Patient seen and examined at bedside. Complaining of urge to urinate but cannot pass urine. Straight cath-->500cc's clear urine. Followed by a large BM, followed by voiding freely. OBJECTIVE: Vital Signs Period Temp Pulse Resp BP Sys/Suazo Pulse Ox Last 24 Hr 97.6 F-99.4 F 70-84 18-20 124-147/67-77 94 GENERAL: The patient is awake, alert, and fully oriented, in no acute distress. LUNGS: Breath sounds equal, clear to auscultation bilaterally, no wheezes, no crackles, no accessory muscle use. HEART: Regular rate and rhythm, S1, S2 ABDOMEN: Soft, nontender, nondistended, hypoactive bowel sounds EXTREMITIES: 2+ pulses, warm, well-perfused, no edema. Active Medications Generic Name Dose Route Start Last Admin Trade Name Freq PRN Reason Stop Dose Admin Acetaminophen 325 mg 01/13/18 10:00 01/21/18 21:14 Tylenol - PO 325 mg BID SIENA Administration Alprazolam 0.25 mg 01/13/18 22:00 01/21/18 21:12 Xanax - PO 0.25 mg BID SIENA Administration Aspirin 81 mg 01/13/18 10:00 01/21/18 09:40 Asa - PO 81 mg DAILY SIENA Administration Docusate Sodium 100 mg 01/18/18 17:17 Colace - PO Q12H PRN CONSTIPATION Gabapentin 100 mg 01/16/18 17:00 01/22/18 05:56 Neurontin - PO 100 mg TID SIENA Administration Guaifenesin 10 ml 01/19/18 10:50 01/19/18 12:30 Robitussin - PO 10 ml Q8H PRN Administration COUGH Heparin Sodium (Porcine) 5,000 unit 01/22/18 06:00 01/22/18 05:56 Heparin - SQ 5,000 unit TID SIENA Administration Lisinopril 20 mg 01/19/18 10:00 01/21/18 09:40 Prinivil PO 20 mg DAILY SIENA Administration Oxycodone HCl 10 mg 01/13/18 10:00 01/21/18 21:13 Roxicodone - PO 10 mg BID SIENA Administration Polyethylene Glycol 17 gm 01/18/18 17:17 Miralax (For Daily Use) - PO Q24H PRN CONSTIPATION Senna 1 tab 01/13/18 10:00 01/21/18 21:12 Senna - PO 1 tab BID SIENA Administration ASSESSMENT/PLAN: This is a 72 year old male male with PMH significant f of HTN, a.fib, multiple spinal surgeries who presented to the ED with syncope 2/2 severe left leg pain. Plan: 1) Syncope - Likely vasovagal 2/2 pain - Carotid dopplers with no evidence of hemodynamically significant stenosis - Head CT with no significant interval change 2) TODD - Resolved 3) Chronic back pain with LLE weakness (chronic) - Patient appears comfortable - Continue neurontin and oxycodone - Patient refusing sinemet and pramipexole stating "I don't have Parkinson's" - Continue PT - For possible transfer for second opinion as the patient is refusing to see Dr. 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 Ge consult for second opinion 4) Hx of a.fib - Continue ASA - Rate controlled 5) HTN - Continue Lisinopril 6) F/E/N: - RN reports patient has coughing while eating. Discussed with Lorna Nguyen, for swallow evaluation - Sodium controlled diet - Monitor electrolytes 7) Dispo: - The patient discussed care with Rosey Arana. Attempted to transfer patient to [facility] for second opinion and he was denied - Called and faxed information to [facility], awaiting call back if the patient is accepted - Patient is open to discussing neurostimulator with a neurosurgeon, but not a neurosurgeon from here CODE STATUS: FULL CODE c/o urinary retention 500cc straight cath; h/o BPH not on meds; start flomax; after cath had large BM and soaked through diaper and bed modified barium swallow
[2018-01-22] MEDS ORDERED: TAMSULOSIN HCL 0.4 MG CAP.ER.24H (FP) PO SCH (10:45)
[2018-01-22] MEDS: SENNOSIDES 8.6MG TABLET (FP) PO SCH (11:37)
[2018-01-22] MEDS: ALPRAZolam 0.25 MG TABLET PO SCH (11:37)
[2018-01-22] MEDS: ASPIRIN 81 MG CHEWABLE TABLETS PO SCH (11:37)
[2018-01-22] MEDS: LISINOPRIL 20 MG TABLET (FP) PO SCH (11:38)
[2018-01-22] MEDS: oxyCODONE HCL 5 MG TABLET PO SCH (11:38)
[2018-01-22] MEDS: ACETAMINOPHEN 325 MG TABLET (FP) PO SCH (11:39)
[2018-01-22 11:49] LABS: URINE APPEARANCE CLEAR; URINE BILIRUBIN NEGATIVE (<2.0 mg/dL); URINE COLOR STRAW; URINE GLUCOSE (UA) NEGATIVE (NEGATIVE); URINE KETONE NEGATIVE (NEGATIVE); URINE LEUK ESTERASE NEGATIVE (NEGATIVE); URINE NITRITE NEGATIVE (NEGATIVE); URINE PROTEIN NEGATIVE (NEGATIVE); URINE UROBILINOGEN NEGATIVE mg/dL (0.2-1.0)
[2018-01-22 16:17] VITALS: BP 152/93; PULSE 79; TEMP 98.2
[2018-01-24 04:09] VITALS: BMI 24.0
--- NOTE | 2018-01-29 18:05 | DS ---
Physical Exam: SUBJECTIVE: Patient seen and examined. Complaining of constipation and inability to pass urine. Straight cath-->500cc output, followed by large BM, followed by urine passing without difficulty. OBJECTIVE: Vital Signs Temperature 98.2 F 01/22/18 08:00 Pulse Rate 79 01/22/18 08:00 Respiratory Rate 20 01/22/18 08:00 Blood Pressure 152/93 01/22/18 08:00 O2 Sat by Pulse Oximetry (%) 94 L 01/22/18 08:00 PHYSICAL EXAM GENERAL: The patient is awake, alert, and fully oriented, in no acute distress. LUNGS: Breath sounds equal, clear to auscultation bilaterally, no wheezes, no crackles, no accessory muscle use. HEART: Regular rate and rhythm, S1, S2 ABDOMEN: Soft, nontender, nondistended, hypoactive bowel sounds EXTREMITIES: 2+ pulses, warm, well-perfused, no edema. LABS CBCD WBC 10.0 K/mm3 (4.0-10.0) D 01/18/18 07:00 RBC 3.87 M/mm3 (4.00-5.60) L 01/18/18 07:00 Hgb 13.5 GM/dL (11.7-16.9) 01/18/18 07:00 Hct 39.5 % (35.4-49) 01/18/18 07:00 MCV 102.1 fl (80-96) H 01/18/18 07:00 MCHC 34.1 g/dl (32.0-35.9) 01/18/18 07:00 RDW 14.3 % (11.9-15.9) 01/18/18 07:00 Plt Count 194 K/MM3 (134-434) 01/18/18 07:00 MPV 8.9 fl (7.5-11.1) 01/18/18 07:00 CMP Sodium 141 mmol/L (136-145) 01/19/18 06:45 Potassium 4.5 mmol/L (3.5-5.1) 01/19/18 06:45 Chloride 110 mmol/L (98-107) H 01/19/18 06:45 Carbon Dioxide 23 mmol/L (21-32) 01/19/18 06:45 Anion Gap 8 (8-16) 01/19/18 06:45 BUN 27 mg/dL (7-18) H 01/19/18 06:45 Creatinine 1.2 mg/dL (0.7-1.3) 01/19/18 06:45 Creat Clearance w eGFR 59.18 (>60) 01/19/18 06:45 Calcium 8.3 mg/dL (8.5-10.1) L 01/19/18 06:45 Total Bilirubin 0.5 mg/dL (0.2-1.0) D 01/18/18 07:00 AST 17 U/L (15-37) 01/18/18 07:00 ALT 12 U/L (12-78) D 01/18/18 07:00 Alkaline Phosphatase 70 U/L (45-117) 01/18/18 07:00 Total Protein 6.0 g/dl (6.4-8.2) L 01/18/18 07:00 Albumin 3.4 g/dl (3.4-5.0) 01/18/18 07:00 HOSPITAL COURSE: Date of Admission:01/15/18 Date of Discharge: 01/22/18 This is a 72 year old male male with PMH significant f of HTN, a.fib, multiple spinal surgeries who presented to the ED with syncope 2/2 severe left leg pain. Plan: 1) Syncope - Likely vasovagal 2/2 pain - Carotid dopplers with no evidence of hemodynamically significant stenosis - Head CT with no significant interval change 2) TODD - Resolved 3) Chronic back pain with LLE weakness (chronic) - Patient appears comfortable - Continue neurontin and oxycodone - Patient refusing sinemet and pramipexole stating "I don't have Parkinson's" - Continue PT - For possible transfer for second opinion as the patient is refusing to see Dr. 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 Ge consult for second opinion 4) Hx of a.fib - Continue ASA - Rate controlled 5) HTN - Continue Lisinopril 6) F/E/N: - RN reports patient has coughing while eating. Discussed with Lorna Nguyen, for swallow evaluation - Sodium controlled diet - Monitor electrolytes 7) Dispo: - The patient discussed care with Rosey Arana. Attempted to transfer patient to [facility] for second opinion and he was denied - Called and faxed information to [facility], also denied transfer - Patient is open to discussing neurostimulator with a neurosurgeon, but not a neurosurgeon from here Minutes to complete discharge: 35 Discharge Summary Reason For Visit: HISTORY OF LEFT FOOT DROP,HYPERLIPIDEMIA,SYNCOPE Condition: Stable - Instructions Diet, Activity, Other Instructions: Your discharge packet includes the contact information for the following doctors : Dr. Locke, pain management Dr. Quan, neurology Dr. Ahn, neurosurgery You should follow up with all three of these doctors. Or if you don't want to see these doctors, you should ask your primary care for help selecting a doctor you like. As you discussed with your pain management doctor, you may want to investigate a nerve stimulator to help control your pain as the numerous injections have not worked in the past. A prescription has been sent to your pharmacy for flomax which is a medication that will help you to urinate. Take this medication as directed. Referrals: Nilesh Queen MD, FAANS [Staff Physician] - 1 Week Jose Locke MD [Staff Physician] - 1 Week Gerald Quan MD [Staff Physician] - 1 Week Disposition: HOME - Home Medications Comprehensive Discharge Medication List: Ambulatory Orders Lisinopril [Prinivil -] 20 mg PO BID 07/06/17 Alprazolam [Xanax] 20 mg PO BID 07/22/17 Acetaminophen [Tylenol .Regular Strength -] 325 mg PO Q6H PRN tablet 09/24/17 Sennosides [Senna -] 1 tab PO BID #60 tablet 09/24/17 Aspirin [ASA -] 81 mg PO DAILY 01/12/18 [place]-3 Fatty Acids [[place]-3] 1,000 mg PO DAILY 01/12/18 Oxycodone HCl/Acetaminophen [Percocet 10-325 mg Tablet] 1 each PO BID 01/12/18 Tamsulosin HCl [Flomax] 0.4 mg PO DAILY #30 cap.er.24h 01/22/18 This patient is new to me today: Yes Date on this admission: 01/29/18 Emergency Visit: Yes ED Registration Date: 01/15/18 Care time: The patient presented to the Emergency Department on the above date and was hospitalized for further evaluation of their emergent condition. Critical Care patient: No - Discharge Referral Referred to [facility] Med P.C.: No
== END 2018-01-22 19:30 | disposition home or self-care (01) | DRG 552 ==
LOC: JER 17:27 → JERBED 22:32 → J6S 01-13 02:02 → OBSVTOIN 01-15 09:37
PROVIDERS: ADMIT Internal Medicine; ATTEND Nurse Practitioner Acute Care
DX: M54.16 Radiculopathy, lumbar region (principal); N17.9 Acute kidney failure, unspecified; R55 Syncope and collapse; I10 Essential (primary) hypertension; N40.0 Benign prostatic hyperplasia without lower urinary tract symptoms; R33.9 Retention of urine, unspecified; M54.9 Dorsalgia, unspecified; K59.00 Constipation, unspecified; G25.81 Restless legs syndrome; F41.9 Anxiety disorder, unspecified; E86.0 Dehydration; M79.605 Pain in left leg
CPT/HCPCS: 36415; 70450-TC; 74230-TC-FY; 80048; 80053; 81003; 82550; 82607; 84484; 85025; 85027; 85610; 86850; 86900; 86901; 87086; 92611-GN; 93005; 93010; 93880-TC; 93970-TC; 97116-GP; 97161-GP; 99284-25; G0378; J1644; J7030

== ENCOUNTER 2018-04-04 18:00 | Emergency (ER) | payer OTHER, BC ==
[2018-04-04 18:41] VITALS: BMI 25.2
[2018-04-04] MEDS ORDERED: guaiFENesin 200 MG/10 ML 10 ML UNIT-DOSE CUPS PO ONE (19:09)
--- NOTE | 2018-04-04 19:09 | PDOC ---
History of Present Illness - General Chief Complaint: Respiratory Stated Complaint: FEVER Time Seen by Provider: 04/04/18 18:46 History Source: Patient - History of Present Illness Initial Comments: 04/04/18 19:10 72 y/o male came to hospital [facility] complaint of fever and cough from 4 days. Patient states taht fever statrted 4 days ago associated with chills, Max documented 101f. Fever gets better with tylenol. Also reports cough from 4 days with white to yellow sputum, Denies sob, chest pain and palpitatains. Denies Sneezing, runny nose, posterior nasal drip. Denies difficulty in swallowing. Denies nausea, vomiting, diarrhoea, pain abdomen and burning micturation. Reports [place] of fever he has decresed in oral intake. Also states that he had spine fixation done 2 week ago and since then he is bed ridden but denies swelling in legs, sob and chest pain. Report 2 years ago he has 3 episodes of pneumonia. Patient has 24/ health aid in home. Health aid is also present next to bed side. PAST MEDICAL HISTORY: HTN ,AFIB, Hemorrhoids 1979, anal ulcer 1979, diverticulitis, prostate enlargement , depression/Anxiety , kidney stones, PAST SURGICAL HISTORY: hernia repair abdominal,left inguinal hernia ,hemorrhoids, deviated septum, spinal surgery x2 with residual left side weakness. 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, his Smokin years 1 P per week in his 20s Alcohol:did not have drink since 25 years, before that social drinker Drugs: denies 04/04/18 19:40 Past History - Past Medical History Allergies/Adverse Reactions: Allergies Allergy/AdvReac Type Severity Reaction Status Date / Time pregabalin [From Lyrica] Allergy Mild Verified 04/04/18 18:38 pravastatin sodium Allergy Unknown Verified 04/04/18 18:38 [From Pravachol] morphine Allergy Verified 04/04/18 18:38 peanut Allergy Verified 04/04/18 18:38 Penicillins Allergy Verified 04/04/18 18:38 lactose AdvReac Nausea Verified 04/04/18 18:38 Home Medications: Ambulatory Orders Lisinopril [Prinivil -] 20 mg PO BID 07/06/17 Acetaminophen [Tylenol .Regular Strength -] 325 mg PO Q6H PRN tablet 09/24/17 Sennosides [Senna -] 1 tab PO BID #60 tablet 09/24/17 Aspirin [ASA -] 81 mg PO DAILY 01/12/18 [place]-3 Fatty Acids [[place]-3] 1,000 mg PO DAILY 01/12/18 Oxycodone HCl/Acetaminophen [Percocet 10-325 mg Tablet] 1 each PO BID 01/12/18 Alprazolam [Xanax] 0.25 mg PO BID 03/20/18 Amlodipine Besylate [Norvasc -] 5 mg PO DAILY 03/20/18 Tamsulosin HCl [Flomax] 0.4 mg PO DAILY 03/20/18 Anemia: No Asthma: No Cancer: No Cardiac Disorders: Yes (HTN, HLD, Paroxysmal AFib) CVA: (NPH) COPD: Yes CHF: No DVT: No Dementia: No Diabetes: No GI Disorders: Yes (Diverticulitis, IBS, hemorrhoids) Disorders: Yes (Englarged Prostate) HTN: Yes Hypercholesterolemia: Yes Kidney Stones: Yes (s/p Right UVJ Stent placement) Liver Disease: No Psychiatric Problems: Yes (Depression/Anxiety) Seizures: No Thyroid Disease: No - Surgical History Abdominal Surgery: Yes (Hernia Repair) Appendectomy: No Cardiac Surgery: No Cholecystectomy: No GI Surgery: Yes (HEMORRHOIDS/ANAL ULCER, RIGHT UVJ STENT) Lung Surgery: No Neurologic Surgery: No Orthopedic Surgery: Yes (Spinal Surgery x2 w/ complications) - Immunization History Immunization Up to Date: Yes - Suicide/Smoking/Psychosocial Hx Smoking Status: No Smoking History: Former smoker Years of Tobacco Use: 20 Have you smoked in the past 12 months: No Number of Cigarettes Smoked Daily: 0 If you are a former smoker, when did you quit?: 1970 Information on smoking cessation initiated: No 'Breaking Loose' booklet given: 09/08/13 Hx Alcohol Use: No Drug/Substance Use Hx: No Substance Use Type: None Hx Substance Use Treatment: No Review of Systems - Review of Systems Constitutional: Yes: Chills, Fever HEENTM: No: Blurred Vision, Double Vision, Ear Discharge Respiratory: Yes: Cough Cardiac (ROS): No: Chest Pain, Irregular Heart Rate, Palpitations ABD/GI: No: Abdominal Distended, Diarrhea, Nausea, Vomiting : No: Burning, Dysuria, Discharge Neurological: No: Headache, Seizure, Tremors, Dizziness *Physical Exam - Vital Signs Last Vital Signs Temp Pulse Resp BP Pulse Ox 99 F 83 18 117/88 99 04/04/18 18:38 04/04/18 18:38 04/04/18 18:38 04/04/18 18:38 04/04/18 18:38 - Physical Exam General Appearance: Yes: Appropriately Dressed HEENT: positive: EOMI, Normal Voice, Pharynx Normal Respiratory/Chest: positive: Lungs Clear, Normal Breath Sounds. negative: Chest Tender, Respiratory Distress, Accessory Muscle Use, Crackles, Wheezing Cardiovascular: positive: Regular Rate, S1, S2. negative: Murmur Gastrointestinal/Abdominal: positive: Normal Bowel Sounds, Soft. negative: Guarding, Rebound, Tenderness Musculoskeletal: positive: Normal Inspection. negative: CVA Tenderness Extremity: negative: Pedal Edema, Swelling Neurologic: positive: Fully Oriented, Alert, Normal Mood/Affect ED Treatment Course - LABORATORY CBC & Chemistry Diagram: 04/04/18 19:30 04/04/18 19:30 - RADIOLOGY Radiology Studies Ordered: Category Date Time Status CHEST PA & LAT [RAD] Stat Radiology 04/04/18 19:06 Ordered Medical Decision Making - Medical Decision Making 04/04/18 19:20 72 y/o male came to hospital with complaint of fever and cough from 4 days. Patient states taht fever statrted 4 days ago associated with chills, Max documented 101f. In hospital patient is afebrile and lungs are clean to auscultate. Patient coughed in front of me and had produce white sputum. Pharynx was difficult to examine because patient is unable to protrude his tongue, What ever part seen was not erythematous. We will get cbc, cmp ekg and cxr. 04/04/18 19:22 04/04/18 20:32 labs reviewed. creatnine at base line 1.2. wbc and neutrophil in normal limit. CXR pending. 04/04/18 21:20 cxr reviewed. no acute pathology. Patient likely have viral bronchitis. No fever, no sob, no chest pain. Discussed with Dr gordon he can be discharged home. 04/04/18 22:06 patient insist that he wants antibiotic. It has been explained to him that its viral bronchitis but kept on insisting and wants antibiotic. We will give him levaquin for 5 days. *DC/Admit/Observation/Transfer Diagnosis at time of Disposition: Viral bronchitis - Discharge Dispostion Disposition: HOME Condition at time of disposition: Stable Decision to Admit order: No - Referrals - Patient Instructions Printed Discharge Instructions: DI for Acute Bronchitis Additional Instructions: Drink plenty of liquid. If your condition gets worse or develop shortness of breath, chest pain go to nearest hospital. - Post Discharge Activity
[2018-04-04] MEDS ORDERED: guaiFENesin 200 MG/10 ML 10 ML UNIT-DOSE CUPS ONE (19:15)
[2018-04-04 19:48] LABS: BASO % 0.2 % (0-2.0); EOS % 8.3 % (0-4.5); HEMATOCRIT 41.6 % (35.4-49); LYMPH % 21.6 % (8-40); MCH 34.8 pg (25.7-33.7); MCHC 33.8 g/dl (32.0-35.9); MEAN CELL VOLUME 103.1 fl (80-96); MEAN PLT VOLUME 9.4 fl (7.5-11.1); MONO % 6.6 % (3.8-10.2); NEUT % 63.3 % (42.8-82.8); PLATELET COUNT 242 K/MM3 (134-434); RBC 4.04 M/mm3 (4.00-5.60); RDW 14.3 % (11.9-15.9)
[2018-04-04] MEDS ORDERED: PERMETHRIN 5% TOPICAL CREAM 60 GM TUBE TP ONE (19:58)
[2018-04-04 20:12] LABS: ALBUMIN 3.9 g/dl (3.4-5.0); ALK PHOS 85 U/L (45-117); ANION GAP 12 MMOL/L (8-16); BILIRUBIN,TOTAL 0.3 mg/dL (0.2-1.0); BLOOD UREA NITROGEN 26 mg/dL (7-18); CALCIUM 9.2 mg/dL (8.5-10.1); CHLORIDE 109 mmol/L (98-107); CO2 20 mmol/L (21-32); CREATININE 1.2 mg/dL (0.7-1.3); GLUCOSE,RANDOM 87 mg/dL (74-106); MAGNESIUM 2.3 mg/dL (1.8-2.4); POTASSIUM 4.7 mmol/L (3.5-5.1); SGOT/AST 20 U/L (15-37); SGPT/ALT 33 U/L (12-78); SODIUM 141 mmol/L (136-145); TOT PROT 7.1 g/dl (6.4-8.2)
--- NOTE | 2018-04-04 21:09 | PDOC ---
Attending Attestation - HPI HPI: 04/04/18 21:23 The patient is a 72 year old male with a significant PMH of hypertension, depression, anxiety, kidney stone, afib, hemorrhoids, anal ulcer, diverticulitis , and prostate enlargement who presents to the emergency department with 4 days of fever, chills and cough. The patient stated that his fever is relieved with tylenol. He describes his cough as productive with yellow sputum. The patient reports some outbreaks on his arms that have been there since his discharge from his hospitalization a few months ago. The patient denies any other symptoms. he denies nausea, vomit, diarrhea, constipation or urinary symptoms. The patient denies chest pain, shortness of breath, headache and dizziness. He denies any other complaints. <Kate Nicholas - Last Filed: 04/04/18 21:23> - Resident Resident Name: Ashish Valera - ED Attending Attestation I have performed the following: I have examined & evaluated the patient, The case was reviewed & discussed with the resident, I agree w/resident's findings & plan - Physicial Exam PE: 04/05/18 00:58 Agree with resident exam. Pt seems to have scabies like rash with open wounds on the bilateral arms. - Medical Decision Making 04/04/18 22:54 Pt has bilat scabies on his arms and he was treated with permethrin cream and given some to go with. Pt is requesting abx for his cough. We will be liveral with the use of levaquin given that he has open wounds on his arms bilaterally. Pt is stable for d/c home with his 24/7 HHAide <Roxie Last - Last Filed: 04/05/18 00:58> Heart Score/ECG Review - ECG Intrepretation Comment:: 04/04/18 21:19 Vent Rate:87 bpm OH interval:182ms QRS duration:124 ms QT/QTc: 384/462 Sinus rhythm with frequent premature ventricular complexes. Left xis deviation Left bundle branch block Abnormal ECG Documentation prepared by Kate Nicholas, acting as medical service technician for Roxie Last MD. <Kate Nicholas - Last Filed: 04/04/18 21:23>
[2018-04-04 23:19] VITALS: BP 136/68; PULSE 76; TEMP 98.5
--- NOTE | 2018-04-06 13:42 | EKG ---
Test Reason : Blood Pressure : / mmHG Vent. Rate : 087 BPM Atrial Rate : 087 BPM P-R Int : 182 ms QRS Dur : 124 ms QT Int : 384 ms P-R-T Axes : 036 -69 088 degrees QTc Int : 462 ms SINUS RHYTHM WITH FREQUENT PREMATURE VENTRICULAR COMPLEXES LEFT AXIS DEVIATION LEFT BUNDLE BRANCH BLOCK ABNORMAL ECG WHEN COMPARED WITH ECG OF 20-MAR-2018 10:32, NO SIGNIFICANT CHANGE WAS FOUND Confirmed by CONRAD TREADWELL MD ([id number]) on 04/06/2018 1:42:41 PM Referred By: Confirmed By:CONRAD TREADWELL MD
== END 2018-04-05 | disposition home or self-care (01) ==
LOC: JER 18:00
DX: J20.8 Acute bronchitis due to other specified organisms (principal); Z87.891 Personal history of nicotine dependence; I10 Essential (primary) hypertension; E78.00 Pure hypercholesterolemia, unspecified; J44.9 Chronic obstructive pulmonary disease, unspecified; I48.91 Unspecified atrial fibrillation
CPT/HCPCS: 36415; 71046-TC-FY; 80053; 83735; 85025; 93005; 93010; 99282-25

== ENCOUNTER 2018-06-02 15:27 | Emergency (ER) | payer OTHER, BC ==
[2018-06-02 15:50] VITALS: BMI 25.9
--- NOTE | 2018-06-02 16:00 | PDOC ---
History of Present Illness - General Chief Complaint: Urinary Catheter Problem Stated Complaint: CROWELL ISSUES - History of Present Illness Initial Comments: The patient is a 73M who presents for evaluation of dark urine in his crowell bag for 1d associated with suprapubic pain and chills. The patient reports recently being discharged after being admitted for UTI and having a crowell placed for urinary retention 9 days ago. The patient was discharged on Bactrim which he states he finished this past Friday (4 days ago). The patient describes his suprapubic pain as a 'discomfort' but cannot further characterize the pain, it has only been for today, and is not aggravated/ alleviated by anything that he has noted. The patient lives at home with his aid. Per the patient, the aid washes him approx 2/day. However, the patient reports that he has been bed bound since his spine surgery 14 months ago. He reports that he uses diapers for voids/stools. Denies blood in stool. He denies recent fevers, RAMIREZ, changes in vision, chest pain, SOB, N/V/C/D, or acute changes in sensation 06/02/18 16:25 Past History - Past Medical History Allergies/Adverse Reactions: Allergies Allergy/AdvReac Type Severity Reaction Status Date / Time pregabalin [From Lyrica] Allergy Mild Verified 05/24/18 13:46 pravastatin sodium Allergy Unknown Verified 05/24/18 13:46 [From Pravachol] morphine Allergy Verified 05/24/18 13:46 peanut Allergy Verified 05/24/18 13:46 Penicillins Allergy Verified 05/24/18 13:46 lactose AdvReac Nausea Verified 05/24/18 13:46 Home Medications: Ambulatory Orders Lisinopril [Prinivil -] 20 mg PO BID 07/06/17 Acetaminophen [Tylenol .Regular Strength -] 325 mg PO Q6H PRN tablet 09/24/17 Aspirin [ASA -] 81 mg PO DAILY 01/12/18 Oxycodone HCl/Acetaminophen [Percocet 10-325 mg Tablet] 1 each PO BID 01/12/18 Alprazolam [Xanax] 0.25 mg PO BID 03/20/18 Anemia: No Asthma: No Cancer: No Cardiac Disorders: Yes (HTN, HLD, Paroxysmal AFib) CVA: (NPH) COPD: Yes CHF: No DVT: No Dementia: No Diabetes: No GI Disorders: Yes (Diverticulitis, IBS, hemorrhoids) Disorders: Yes (Englarged Prostate) HTN: Yes Hypercholesterolemia: Yes Kidney Stones: Yes (s/p Right UVJ Stent placement) Liver Disease: No Psychiatric Problems: Yes (Depression/Anxiety) Seizures: No Thyroid Disease: No - Surgical History Abdominal Surgery: Yes (Hernia Repair) Appendectomy: No Cardiac Surgery: No Cholecystectomy: No GI Surgery: Yes (HEMORRHOIDS/ANAL ULCER, RIGHT UVJ STENT) Lung Surgery: No Neurologic Surgery: No Orthopedic Surgery: Yes (Spinal Surgery x2 w/ complications) - Immunization History Immunization Up to Date: Yes - Suicide/Smoking/Psychosocial Hx Smoking Status: No Smoking History: Never smoked Years of Tobacco Use: 20 Have you smoked in the past 12 months: No Number of Cigarettes Smoked Daily: 0 If you are a former smoker, when did you quit?: 1969 Information on smoking cessation initiated: No 'Breaking Loose' booklet given: 09/08/13 Hx Alcohol Use: No Drug/Substance Use Hx: No Substance Use Type: None Hx Substance Use Treatment: No Review of Systems - Review of Systems Able to Perform ROS?: Yes Comments:: GENERAL/CONSTITUTIONAL: +chills, No fever. No weakness HEAD, EYES, EARS, NOSE AND THROAT: No change in vision. No ear pain or discharge. No sore throat CARDIOVASCULAR: No chest pain or shortness of breath RESPIRATORY: No cough, wheezing, or hemoptysis GASTROINTESTINAL: No nausea, vomiting, diarrhea or constipation GENITOURINARY: per HPI MUSCULOSKELETAL: No joint or muscle swelling or pain. No neck or back pain SKIN: No rash NEUROLOGIC: No headache, vertigo, loss of consciousness ENDOCRINE: No increased thirst. No abnormal weight change HEMATOLOGIC/LYMPHATIC: No anemia, easy bleeding, or history of blood clots ALLERGIC/IMMUNOLOGIC: No hives or skin allergy 06/02/18 15:57 Is the patient limited Tajik proficient: No *Physical Exam - Vital Signs Last Vital Signs Temp Pulse Resp BP Pulse Ox 98.3 F 82 18 136/78 95 06/02/18 15:45 06/02/18 15:45 06/02/18 15:45 06/02/18 15:45 06/02/18 15:45 - Physical Exam Comments: GENERAL: Awake, alert, and fully oriented, in no acute distress, in gown from discharge HEAD: No signs of trauma, normocephalic, atraumatic EYES: PERRLA, EOMI, sclera anicteric, conjunctiva clear ENT: Hearing grossly normal, nares patent. Moist mucosa NECK: Normal ROM, supple, no lymphadenopathy LUNGS: No distress, speaks full sentences, clear to auscultation bilaterally HEART: Regular rate and rhythm, normal S1 and S2, no murmurs, rubs or gallops, peripheral pulses normal and equal bilaterally ABDOMEN: Soft, mild suprapubic TTP, normoactive bowel sounds. No guarding, no rebound : Crowell in place with crusted material near meatus NEUROLOGICAL: Cranial nerves II through XII grossly intact. Normal speech SKIN: Warm, Dry, normal turgor, no rashes or lesions noted 06/02/18 15:58 ED Treatment Course - LABORATORY CBC & Chemistry Diagram: 06/02/18 16:49 06/02/18 16:25 Medical Decision Making - Medical Decision Making The patient is a 73M who presents for evaluation of dark urine in crowell bag UA, UCx CMP, CBC, Cardiac profile, Lactate, Lipase, Blood Cultures ECG CXR 06/02/18 15:58 CXR w/o evdience of PNA, PNX, effusion, or edema 06/02/18 16:55 UA not concerning for UTI, improved from previous Plan for void trial Will D/C w/o crowell if patient voids, if fails, will replace crowell and discharge 06/02/18 18:35 Crowell removed at 1830 06/02/18 18:38 Plan for void trial Patient signed out to Dr. Villafuerte all relevant history, findings, and plan to this point discussed and all questions answered. 06/02/18 19:06 *DC/Admit/Observation/Transfer Diagnosis at time of Disposition: Crowell catheter in place - Discharge Dispostion Disposition: HOME Condition at time of disposition: Stable Decision to Admit order: Yes - Referrals Referrals: [facility] [place] [place] [Provider Group] Qasim Barajas MD [Staff Physician] - - Patient Instructions Printed Discharge Instructions: DI for Urinary Retention in Men Additional Instructions: You were seen in the Emergency Room for concern for UTI. Your urine was evaluated and you were not found to have strong evidence of UTI in your urine. Please review the handout provided at discharge. Please follow up with your primary care provider and Urology. Return to the Emergency Room if you develop fevers/chills, inability to urinate , pain with urination, blood in your urine, or any new/concerning symptoms. - Post Discharge Activity
--- NOTE | 2018-06-02 16:40 | PDOC ---
Attending Attestation - HPI HPI: 06/02/18 17:12 The patient is a 73-year-old male, with a past medical history of HTN, HLD, paroxysmal afib, COPD, diverticulitis, IBS, hemorrhoids, enlarged prostate, right uvd stent placement, depression, and anxiety, spinal surgery with left foot drop, who was sent to the ED by visiting nurse service for dirty urine. The patient was seen in the ED a few days ago and had a walsh catheter placed. Patient was given a course of Bactrim that he finished on Tuesday 05/29. On exam , the patient is complaining of suprapubic pain. The patient denies any fever, chills, nausea, vomiting, or diarrhea. - Physicial Exam PE: 06/02/18 17:14 GENERAL: Awake, alert, and fully oriented, in no acute distress HEAD: No signs of trauma EYES: PERRLA, EOMI, sclera anicteric, conjunctiva clear ENT: Auricles normal inspection, hearing grossly normal, nares patent. Moist mucosa NECK: Normal ROM, supple, JVD, or masses ABDOMEN: Soft, nontender. No guarding, no rebound. No masses GI: (+)Walsh in place with sediment in walsh catheter. EXTREMITIES: Normal range of motion, no edema. No clubbing or cyanosis. No cords, erythema, or tenderness NEUROLOGICAL: Cranial nerves II through XII grossly intact. Normal speech. SKIN: Warm, Dry, normal turgor, no rashes or lesions noted. <Cecy Mckeon - Last Filed: 06/02/18 17:17> - Resident Resident Name: Frantz Betancur - ED Attending Attestation I have performed the following: I have examined & evaluated the patient, The case was reviewed & discussed with the resident, I agree w/resident's findings & plan, Exceptions are as noted - Medical Decision Making 06/02/18 16:39 A portion of this note was documented by scribe services under my direction. I have reviewed the details of the note, within reason, and agree with the documentation with the following case summary and management plan written by me. Patient treated in the ED. Nursing notes are reviewed and incorporated into the medical decision-making. Vital signs reviewed. Peripheral IV access obtained by the nurse, laboratory studies are drawn and sent, reviewed and interpreted by myself. Vital Signs Temp Pulse Resp BP Pulse Ox 98.3 F 82 18 136/78 95 06/02/18 15:45 06/02/18 15:45 06/02/18 15:45 06/02/18 15:45 06/02/18 15:45 73 year old male with Past medical history of atrial fibrillation, hypertension , BPH, spinal surgery with left foot drop sent in by visiting nursing services for dirty looking urine. The patient was recently seen here several days ago. The patient had a Walsh catheter placed and treated with antibiotics. At that time, the patient and aide had requested additional services. This time, the patient was noted again to have symptoms are concerning for urinary tract infection. No fevers or chills. I agree with resident's finding rule out urinary tract infection. 06/02/18 18:02 CBC, BMP 06/02/18 16:49 06/02/18 16:25 CMP Sodium 138 mmol/L (136-145) 06/02/18 16:25 Potassium 4.7 mmol/L (3.5-5.1) 06/02/18 16:25 Chloride 110 mmol/L (98-107) H 06/02/18 16:25 Carbon Dioxide 21 mmol/L (21-32) 06/02/18 16:25 Anion Gap 7 MMOL/L (8-16) L 06/02/18 16:25 BUN 29 mg/dL (7-18) H 06/02/18 16:25 Creatinine 1.1 mg/dL (0.55-1.3) 06/02/18 16:25 Creat Clearance w eGFR > 60 (>60) 06/02/18 16:25 Random Glucose 101 mg/dL (74-106) 06/02/18 16:25 Lactic Acid 1.4 mmol/L (0.4-2.0) 06/02/18 16:25 Calcium 9.3 mg/dL (8.5-10.1) 06/02/18 16:25 Total Bilirubin 0.2 mg/dL (0.2-1) 06/02/18 16:25 AST 20 U/L (15-37) 06/02/18 16:25 ALT 49 U/L (13-61) 06/02/18 16:25 Alkaline Phosphatase 71 U/L (45-117) 06/02/18 16:25 Creatine Kinase 67 IU/L (26-308) 06/02/18 16:30 Troponin I < 0.02 ng/ml (0.00-0.05) 06/02/18 16:30 Total Protein 6.9 g/dl (6.4-8.2) 06/02/18 16:25 Albumin 3.9 g/dl (3.4-5.0) 06/02/18 16:25 Urine Test Results Urine Color Yellow 06/02/18 16:30 Urine Appearance Slcloudy 06/02/18 16:30 Urine pH 5.0 (5.0-8.0) 06/02/18 16:30 Ur Specific [place] 1.021 (1.010-1.035) 06/02/18 16:30 Urine Protein Negative (NEGATIVE) 06/02/18 16:30 Urine Glucose (UA) Negative (NEGATIVE) 06/02/18 16:30 Urine Ketones Negative (NEGATIVE) 06/02/18 16:30 Urine Blood 3+ (NEGATIVE) H 06/02/18 16:30 Urine Nitrite Negative (NEGATIVE) 06/02/18 16:30 Urine Bilirubin Negative (<2.0 mg/dL) 06/02/18 16:30 Ur Leukocyte Esterase Trace (NEGATIVE) 06/02/18 16: Urine Mucus Rare 06/02/18 16:[address] Shin regarding the case. The patient has had prior admissions for social problems including refusing services. States that the urine has improved since taking his oral antibiotics. So as a result, will wait for urine cultures, but pt feels comfortable going home. Pt has no abdominal pain or tenderness. The patient himself reports feeling comfortable. The patient does wish to take out the walsh catheter since he typically does not have an indwelling catheter. Will perform a void trial. If passes pt can be sent home. <Alirio Fortune - Last Filed: 06/02/18 19:12> Attestations - Attestations 06/02/18 17:18 Documentation prepared by Cecy Mckeon, acting as medical staff physician for Alirio Fortune MD. <Cecy Mckeon - Last Filed: 06/02/18 17:17>
[2018-06-02 16:49] VITALS: TEMP 98.8
[2018-06-02 16:52] LABS: HEMATOCRIT 41.2 % (35.4-49); HEMOGLOBIN 13.8 GM/dL (11.7-16.9); MCH 34.9 pg (25.7-33.7); MCHC 33.5 g/dl (32.0-35.9); PLATELET COUNT 235 K/MM3 (134-434); RBC 3.96 M/mm3 (4.00-5.60); RDW 14.2 % (11.9-15.9); WHITE BLOOD COUNT 7.2 K/mm3 (4.0-10.0)
[2018-06-02 17:00] LABS: URINE APPEARANCE SLCLOUDY; URINE BILIRUBIN NEGATIVE (<2.0 mg/dL); URINE COLOR YELLOW; URINE GLUCOSE (UA) NEGATIVE (NEGATIVE); URINE KETONE NEGATIVE (NEGATIVE); URINE LEUK ESTERASE TRACE (NEGATIVE); URINE NITRITE NEGATIVE (NEGATIVE); URINE PROTEIN NEGATIVE (NEGATIVE); URINE UROBILINOGEN NEGATIVE mg/dL (0.2-1.0)
[2018-06-02 17:07] LABS: URINE MUCUS RARE
[2018-06-02 17:19] LABS: INR 0.97 (0.83-1.09); PROTHROMBIN TIME (PATIENT) 11.5 SEC (9.7-13.0)
[2018-06-02 17:32] LABS: ALBUMIN 3.9 g/dl (3.4-5.0); ALK PHOS 71 U/L (45-117); ANION GAP 7 MMOL/L (8-16); BILIRUBIN,TOTAL 0.2 mg/dL (0.2-1); BLOOD UREA NITROGEN 29 mg/dL (7-18); CALCIUM 9.3 mg/dL (8.5-10.1); CHLORIDE 110 mmol/L (98-107); CO2 21 mmol/L (21-32); CREATININE 1.1 mg/dL (0.55-1.3); GLUCOSE,RANDOM 101 mg/dL (74-106); POTASSIUM 4.7 mmol/L (3.5-5.1); SGOT/AST 20 U/L (15-37); SGPT/ALT 49 U/L (13-61); SODIUM 138 mmol/L (136-145); TOT PROT 6.9 g/dl (6.4-8.2)
[2018-06-02] MEDS ORDERED: VANCOMYCIN 1,000 MG in DEXTROSE 5%-WATER - 250 ML IVPB SCH (18:00)
--- NOTE | 2018-06-02 21:35 | PDOC ---
*Physical Exam - Vital Signs Last Vital Signs Temp Pulse Resp BP Pulse Ox 98.8 F 82 17 132/80 98 06/02/18 16:49 06/02/18 19:45 06/02/18 19:45 06/02/18 19:45 06/02/18 19:45 ED Treatment Course - LABORATORY CBC & Chemistry Diagram: 06/02/18 16:49 06/02/18 16:25 - ADDITIONAL ORDERS Additional order review: Laboratory Results 06/02/18 06/02/18 06/02/18 16:30 16:30 16:30 PT with INR 11.50 INR 0.97 PTT (Actin FS) Sodium Potassium Chloride Carbon Dioxide Anion Gap BUN Creatinine Creat Clearance w eGFR Random Glucose Lactic Acid Calcium Total Bilirubin AST ALT Alkaline Phosphatase Creatine Kinase 67 Troponin I < 0.02 Total Protein Albumin Urine Color Urine Appearance Urine pH Ur Specific Lane Urine Protein Urine Glucose (UA) Urine Ketones Urine Blood Urine Nitrite Urine Bilirubin Urine Urobilinogen Ur Leukocyte Esterase Urine WBC (Auto) Urine RBC (Auto) Urine Mucus Blood Type O NEGATIVE Antibody Screen Negative 06/02/18 06/02/18 06/02/18 16:30 16:25 16:25 PT with INR INR PTT (Actin FS) Sodium 138 Potassium 4.7 Chloride 110 H Carbon Dioxide 21 Anion Gap 7 L BUN 29 H Creatinine 1.1 Creat Clearance w eGFR > 60 Random Glucose 101 Lactic Acid 1.4 Calcium 9.3 Total Bilirubin 0.2 AST 20 ALT 49 Alkaline Phosphatase 71 Creatine Kinase Troponin I Total Protein 6.9 Albumin 3.9 Urine Color Yellow Urine Appearance Slcloudy Urine pH 5.[address] 1.021 Urine Protein Negative Urine Glucose (UA) Negative Urine Ketones Negative Urine Blood 3+ H Urine Nitrite Negative Urine Bilirubin Negative Urine Urobilinogen Negative Ur Leukocyte Esterase Trace Urine WBC (Auto) 11 Urine RBC (Auto) 35 Urine Mucus Rare Blood Type Antibody Screen 06/02/18 16:25 PT with INR INR PTT (Actin FS) 32.4 Sodium Potassium Chloride Carbon Dioxide Anion Gap BUN Creatinine Creat Clearance w eGFR Random Glucose Lactic Acid Calcium Total Bilirubin AST ALT Alkaline Phosphatase Creatine Kinase Troponin I Total Protein Albumin Urine Color Urine Appearance Urine pH Ur Specific Lane Urine Protein Urine Glucose (UA) Urine Ketones Urine Blood Urine Nitrite Urine Bilirubin Urine Urobilinogen Ur Leukocyte Esterase Urine WBC (Auto) Urine RBC (Auto) Urine Mucus Blood Type Antibody Screen 06/02/18 16:49 RBC 3.96 L MCV 104.0 H MCHC 33.5 RDW 14.2 MPV 9.0 - Medications Given in the ED: ED Medications Discontinued Medications Generic Name Dose Route Start Last Admin Trade Name Kaitlynn PRN Reason Stop Dose Admin Vancomycin HCl 1,000 mg/ 250 mls @ 200 mls/hr 06/02/18 18:00 06/02/18 18:40 Dextrose IVPB Not Given Q24H SIENA Protocol Medical Decision Making - Medical Decision Making 06/02/18 21:43 attempted walsh catheter unsuccessful however Pt able to urinate at 9 [address] pm[address] Sign out from Dr. Fortune Instructed to send home after urination *DC/Admit/Observation/Transfer Diagnosis at time of Disposition: Walsh catheter problem Qualifiers: Encounter type: initial encounter Qualified Code(s): T83.9XXA - Unspecified complication of genitourinary prosthetic device, implant and graft, initial encounter - Discharge Dispostion Disposition: HOME Condition at time of disposition: Stable - Referrals Referrals: [facility] [place] [Provider Group] Qasim Barajas MD [Staff Physician] - - Patient Instructions Printed Discharge Instructions: DI for Urinary Retention in Men Additional Instructions: You were seen in the Emergency Room for concern for UTI. Your urine was evaluated and you were not found to have strong evidence of UTI in your urine. Please review the handout provided at discharge. Please follow up with your primary care provider and Urology. Return to the Emergency Room if you develop fevers/chills, inability to urinate , pain with urination, blood in your urine, or any new/concerning symptoms. - Post Discharge Activity
[2018-06-02 22:08] VITALS: BP 134/76; PULSE 80
--- NOTE | 2018-06-03 10:57 | EKG ---
Test Reason : Blood Pressure : / mmHG Vent. Rate : 078 BPM Atrial Rate : 078 BPM P-R Int : 184 ms QRS Dur : 132 ms QT Int : 390 ms P-R-T Axes : 022 -69 091 degrees QTc Int : 444 ms NORMAL SINUS RHYTHM LEFT AXIS DEVIATION NON-SPECIFIC INTRA-VENTRICULAR CONDUCTION BLOCK CANNOT RULE OUT ANTEROSEPTAL INFARCT , AGE UNDETERMINED ABNORMAL ECG WHEN COMPARED WITH ECG OF 24-MAY-2018 07:27, NON-SPECIFIC INTRA-VENTRICULAR CONDUCTION BLOCK HAS REPLACED LEFT BUNDLE BRANCH BLOCK MINIMAL CRITERIA FOR ANTEROSEPTAL INFARCT ARE NOW PRESENT Confirmed by UMANG BATISTA, ALN ([id number]) on 06/03/2018 10:56:57 AM Referred By: Confirmed By:LAN HECK MD
== END 2018-06-02 22:45 | disposition home or self-care (01) ==
LOC: JER 15:27
DX: T83.89XA Other specified complication of genitourinary prosthetic devices, implants and grafts, initial encounter (principal); R82.90 Unspecified abnormal findings in urine; I10 Essential (primary) hypertension; E78.5 Hyperlipidemia, unspecified; I48.91 Unspecified atrial fibrillation; F41.8 Other specified anxiety disorders; N40.0 Benign prostatic hyperplasia without lower urinary tract symptoms; Z87.19 Personal history of other diseases of the digestive system; Z87.440 Personal history of urinary (tract) infections; Z96.0 Presence of urogenital implants; Z86.73 Personal history of transient ischemic attack (TIA), and cerebral infarction without residual deficits; M21.379 Foot drop, unspecified foot
CPT/HCPCS: 36415; 71045-TC-FY; 80053; 81003; 81015; 82550; 83605; 84484; 85027; 85610; 85730; 86850; 86900; 86901; 87040; 87086; 93005; 93010; 99285-25

== ENCOUNTER 2018-09-03 00:21 | Emergency (ER) | payer OTHER, BC ==
--- NOTE | 2018-09-03 00:44 | PDOC ---
Attending Attestation - HPI HPI: 09/03/18 01:11 The patient is a 73 year old male with a PMH of Afib, HTN, BPH, spinal surgery 1 year ago and has been bed bound since presenting to ED with complaints of lower abdominal pain and loose stools. Patient is typically unaware of when he has to have a bowel movement. Denies nausea, sob, cp, chills, fever, vomiting, or constipation. PSH: spinal surgery Meds: ASA, percocet, lisinopril, xanax Social: denies Allergies: pcn, statin, morphine - Physicial Exam PE: 09/03/18 01:15 ADULT PHYSICAL EXAM Constitutional: Awake, alert, oriented. No acute distress. Cardiovascular: Regular rate. Regular rhythm. S1, S2 regular. Distal pulses are 2+ and symmetric. Pulmonary/Chest: No evidence of respiratory distress. Clear to auscultation bilaterally No wheezing, rales or rhonchi. Abdominal: Soft. (+) Abdomen is distended. (+) Suprapubic and epigastric tenderness. No rebound, guarding or rigidity. No organomegaly. No palpable masses. Good bowel sounds. and Rectal: (+) Bladder is palpable below the umbilicus. (+) Large amount of brown stool in diaper. No palpable hemorrhoids or masses. Normal rectal tone and sensation. Back: No CVA tenderness. Musculoskeletal: No edema. No cyanosis. No clubbing. No calf tenderness. Radial/ pedal pulses are intact and 2+ bilaterally Skin: Skin is warm and dry. No petechiae. No purpura. Neurological: Cranial nerves II-XII are grossly intact. Psychiatric: Good eye contact. Normal interaction, affect and behavior. <Alyssa Haley - Last Filed: 09/03/18 01:19> - Resident Resident Name: Ofelia Lu - ED Attending Attestation I have performed the following: I have examined & evaluated the patient, The case was reviewed & discussed with the resident, I agree w/resident's findings & plan, Exceptions are as noted - Medical Decision Making 09/03/18 00:44 I, Dr. Mikala Harrell, DO, attest that this document has been prepared under my direction and personally reviewed by me in its entirety. I further attest, that it accurately reflects all work, treatment, procedures and medical decision -making performed by me. 09/03/18 01:25 a/p: 73yo male with abd distension/rectal pain/nausea -pt is bed bound since spinal surgery -rectal tone and sensation intact, soft stool in the vault -concern for obstruction vs fecal impaction higher up than the rectal -will send labs, ct abd/pelvis -will send ua and culture -will monitor and reassess <Mikala Harrell - Last Filed: 09/03/18 01:30>
[2018-09-03 00:46] VITALS: BMI 25.8
[2018-09-03] MEDS ORDERED: SODIUM CHLORIDE 0.9% 1000 ML INFUS.BAG IV ONE (01:30)
[2018-09-03 02:44] LABS: MONO % 7.4 % (3.8-10.2); RDW 14.1 % (11.9-15.9)
[2018-09-03 02:52] LABS: BASO % 0.6 % (0-2.0); EOS % 5.2 % (0-4.5); HEMATOCRIT 40.6 % (35.4-49); LYMPH % 16.7 % (8-40); MCH 35.9 pg (25.7-33.7); MCHC 34.5 g/dl (32.0-35.9); MEAN CELL VOLUME 104.2 fl (80-96); MEAN PLT VOLUME 9.4 fl (7.5-11.1); NEUT % 70.1 % (42.8-82.8); PLATELET COUNT 219 K/MM3 (134-434); WHITE BLOOD COUNT 9.2 K/mm3 (4.0-10.0)
[2018-09-03 03:05] LABS: ALBUMIN 3.7 g/dl (3.4-5.0); ALK PHOS 80 U/L (45-117); ANION GAP 6 MMOL/L (8-16); BILIRUBIN,TOTAL 0.3 mg/dL (0.2-1); BLOOD UREA NITROGEN 23 mg/dL (7-18); CALCIUM 8.5 mg/dL (8.5-10.1); CHLORIDE 109 mmol/L (98-107); CO2 26 mmol/L (21-32); CREATININE 1.5 mg/dL (0.55-1.3); GLUCOSE,RANDOM 98 mg/dL (74-106); LIPASE 124 U/L (73-393); POTASSIUM 4.2 mmol/L (3.5-5.1); SGOT/AST 18 U/L (15-37); SGPT/ALT 33 U/L (13-61); SODIUM 141 mmol/L (136-145); TOT PROT 6.6 g/dl (6.4-8.2)
--- NOTE | 2018-09-03 03:17 | PDOC ---
History of Present Illness - General Chief Complaint: Pain, Acute Stated Complaint: RECTAL PAIN Time Seen by Provider: 09/03/18 00:43 - History of Present Illness Initial Comments: Jamie Hernandez is a 73yo man with a PMH of a-fib, HTN, bed-bound since spinal surgery, BPH who presents with report of "rectal pain" over the past week. He states that the pain comes and goes, and it can be very severe at times. He has not noticed any change in bowel movements recently; he has chronic constipation secondary to using pain meds, but he takes milk of magnesia daily. His aide reports that he has a soft bowel movement daily, and she has not noticed any dark stools or blood. Mr Hernandez states that he is diapered and not aware of when he is having a BM. He denies any recent change in diet, nausea, vomiting, abdominal pain, urinary symptoms, fever/chills, or back or flank pain. Past History - Past Medical History Allergies/Adverse Reactions: Allergies Allergy/AdvReac Type Severity Reaction Status Date / Time pregabalin [From Lyrica] Allergy Mild Verified 09/03/18 00:45 pravastatin sodium Allergy Unknown Verified 09/03/18 00:45 [From Pravachol] morphine Allergy Verified 09/03/18 00:45 peanut Allergy Verified 09/03/18 00:45 Penicillins Allergy Verified 09/03/18 00:45 lactose AdvReac Nausea Verified 09/03/18 00:45 Home Medications: Ambulatory Orders Lisinopril [Prinivil -] 20 mg PO BID 07/06/17 Aspirin [ASA -] 81 mg PO DAILY 01/12/18 Oxycodone HCl/Acetaminophen [Percocet 10-325 mg Tablet] 1 each PO BID 01/12/18 Alprazolam [Xanax] 0.25 mg PO BID 03/20/18 Nitrofurantoin Monohyd/M-Cryst [Macrobid -] 100 mg PO BID #20 capsule 09/03/18 Anemia: No Asthma: No Cancer: No Cardiac Disorders: Yes (HTN, HLD, Paroxysmal AFib) CVA: (NPH) COPD: Yes CHF: No DVT: No Dementia: No Diabetes: No GI Disorders: Yes (Diverticulitis, IBS, hemorrhoids) Disorders: Yes (Englarged Prostate) HTN: Yes Hypercholesterolemia: Yes Kidney Stones: Yes (s/p Right UVJ Stent placement) Liver Disease: No Psychiatric Problems: Yes (Depression/Anxiety) Seizures: No Thyroid Disease: No - Surgical History Abdominal Surgery: Yes (Hernia Repair) Appendectomy: No Cardiac Surgery: No Cholecystectomy: No GI Surgery: Yes (HEMORRHOIDS/ANAL ULCER, RIGHT UVJ STENT) Lung Surgery: No Neurologic Surgery: No Orthopedic Surgery: Yes (Spinal Surgery x2 w/ complications) - Immunization History Immunization Up to Date: Yes - Suicide/Smoking/Psychosocial Hx Smoking Status: No Smoking History: Never smoked Years of Tobacco Use: 20 Have you smoked in the past 12 months: No Number of Cigarettes Smoked Daily: 0 If you are a former smoker, when did you quit?: 1969 Information on smoking cessation initiated: No 'Breaking Loose' booklet given: 09/08/13 Hx Alcohol Use: No Drug/Substance Use Hx: No Substance Use Type: None Hx Substance Use Treatment: No Review of Systems - Review of Systems Comments:: General: No fevers, no chills, no weight or appetite change, no malaise HEENT: No changes in vision, no changes in hearing, no congestion, no sore throat CV: No chest pain, no palpitations, no LE edema Pulm: No SOB, no cough, no wheezing GI: No nausea or vomiting, no change in bowel habits, no melena. +rectal pain : No frequency, no urgency, no dysuria Musc: No back pain, no joint swelling, no recent injury Skin: No rash, no lesions, no erythema Endo: No excessive thirst, no heat/cold intolerance Heme: No unusual bruising or bleeding, no swollen glands Neuro: No syncope, no numbness/tingling, no focal weakness Vasc: No claudication Psych: No recent change in mood, no SI or HI *Physical Exam - Vital Signs Last Vital Signs Temp Pulse Resp BP Pulse Ox 97.8 F 100 H 18 153/99 96 09/03/18 00:22 09/03/18 00:22 09/03/18 00:22 09/03/18 00:22 09/03/18 00:22 - Physical Exam Comments: General: Comfortable, no acute distress HEENT: PERRL, EOMI, MMM, voice normal, normal neck ROM, no LAD Cards: RRR, no murmur appreciated Pulm: Comfortable on room air, clear to auscultation bilaterally Abd: Soft, nontender, nondistended : No CVA tenderness Rectal: Normal tone, no blood noted, no perianal lesions. Soft brown stool in diaper. Ext: Atraumatic. No LE edema. Minimal LE movement observed Vasc: Extremities WWP. Skin: Normal color, no rashes or lesions Neuro: A&Ox3, CN grossly intact, normal speech, sensation intact Psych: Mood appropriate to situation Moderate Sedation - Procedure Monitoring Vital Signs: Procedure Monitoring Vital Signs Temperature 97.8 F 09/03/18 00:22 Pulse Rate 100 H 09/03/18 00:22 Respiratory Rate 18 09/03/18 00:22 Blood Pressure 153/99 09/03/18 00:22 O2 Sat by Pulse Oximetry (%) 96 09/03/18 00:22 ED Treatment Course - LABORATORY CBC & Chemistry Diagram: 09/03/18 02:10 09/03/18 02:10 - ADDITIONAL ORDERS Additional order review: Laboratory Results 09/03/18 09/03/18 09/03/18 02:10 01:31 01:31 PTT (Actin FS) Sodium 141 Cancelled Potassium 4.2 Cancelled Chloride 109 H Cancelled Carbon Dioxide 26 Cancelled Anion Gap 6 L Cancelled BUN 23 H Cancelled Creatinine 1.5 H Cancelled Creat Clearance w eGFR 45.62 Cancelled Random Glucose 98 Cancelled Lactic Acid 1.4 Calcium 8.5 Cancelled Magnesium 2.0 Cancelled Total Bilirubin 0.3 Cancelled AST 18 Cancelled ALT 33 Cancelled Alkaline Phosphatase 80 Cancelled Total Protein 6.6 Cancelled Albumin 3.7 Cancelled Lipase 124 Cancelled Stool Occult Blood 09/03/18 09/03/18 01:31 01:07 PTT (Actin FS) 22.0 L Sodium Potassium Chloride Carbon Dioxide Anion Gap BUN Creatinine Creat Clearance w eGFR Random Glucose Lactic Acid Calcium Magnesium Total Bilirubin AST ALT Alkaline Phosphatase Total Protein Albumin Lipase Stool Occult Blood Positive 09/03/18 01:31 RBC Cancelled MCV Cancelled MCHC Cancelled RDW Cancelled MPV Cancelled Neutrophils % Cancelled Lymphocytes % Cancelled Monocytes % Cancelled Eosinophils % Cancelled Basophils % Cancelled Medical Decision Making - Medical Decision Making 09/03/18 01:32 Jamie Hernandez is a 73yo man with a PMH of a-fib, HTN, bed-bound since spinal surgery, BPH who presents with report of "rectal pain" over the past week. He and his aide report a soft, formed stool daily. - Ddx includes constipation, fecal impaction, partial SBO or partial obstruction - Physical exam reassuring, no acute abdomen. Mild suprapubic TTP. Normal rectal exam. - CBC, chemistry, lactate, UA, urine culture. CT abd/pelvis to evaluate for stool burden, impaction, or other abnormalities 09/03/18 03:16 - Labs completed. Cr 1.5 with GFR 45. Cannot obtain CT w/ contrast. Will reorder as without contrast. - IVF ordered for elevated creatinine 09/03/18 04:12 - CT reviewed. No acute abnormalities noted - Will discuss with Mr Hernandez 09/03/18 04:56 - Pt reporting continued pain. On additional questioning, reports using daily suppositories - UA with 3+ leuk esterase, cell counts pending. May have UTI, could explain sensation of "rectal pain" which pt now reports is inside his pelvis, not at the anus. 09/03/18 05:06 - UA with 3200 WBC, many bacteria - Previous cultures reviewed, S epidermitis on 04/20/18 sensitive to macrobid and bactrim. Staph simulans from prior cultures sensitive to macrobid. Will d/c home with macrobid for 10 days and urology follow up. - Discussed with Mr Hernandez and his aide. Will give initial dose of macrobid prior to discharge. Seen and discussed with Klaus Harrell and Jennifer. Ofelia Lu PGY1 *DC/Admit/Observation/Transfer Diagnosis at time of Disposition: UTI (urinary tract infection) - Discharge Dispostion Disposition: HOME Condition at time of disposition: Fair - Prescriptions Prescriptions: Nitrofurantoin Monohyd/M-Cryst [Macrobid -] 100 mg PO BID #20 capsule - Referrals Referrals: [facility] – [place] [facility] [place] [Provider Group] - Patient Instructions Printed Discharge Instructions: DI for Urinary Tract Infection (UTI) Additional Instructions: Discharge Instructions: - You were seen in the emergency department for pain in the low abdomen and rectum. - You had blood tests, a CT scan, and urine tests. You were found to have a urinary tract infection. This is most likely causing your pain. Tests also showed that your kidneys are working harder than normal, also probably because of the infection. Make sure that you are drinking plenty of fluids at home. - You have been prescribed an antibiotic called Macrobid (nitrofurantoin). This should be taken twice per day until the entire prescription is completed. - You have been referred to a urologist, Dr Gandhi. Make an appointment for follow up within the next 1-2 weeks. - Seek medical care if your symptoms worsen, you stop urinating or you have any medical emergency. - Post Discharge Activity
[2018-09-03] MEDS ORDERED: SODIUM CHLORIDE 0.9% 500 ML INFUS.BAG IV ONE (03:59)
[2018-09-03 04:50] LABS: URINE APPEARANCE TURBID; URINE BILIRUBIN NEGATIVE (<2.0 mg/dL); URINE COLOR YELLOW; URINE GLUCOSE (UA) NEGATIVE (NEGATIVE); URINE KETONE NEGATIVE (NEGATIVE); URINE LEUK ESTERASE 3+ (NEGATIVE); URINE NITRITE NEGATIVE (NEGATIVE); URINE PROTEIN 2+ (NEGATIVE)
[2018-09-03 04:54] LABS: URINE BACTERIA MANY /hpf (NONE SEEN); URINE MUCUS MANY
[2018-09-03] MEDS ORDERED: NITROFURANTOIN MACROCRYSTAL 50 MG CAPSULE (FP) PO SCH (05:30)
[2018-09-03] MEDS ORDERED: NITROFURANTOIN MACROCRYSTAL 50 MG CAPSULE (FP) ONE (06:00)
[2018-09-03 06:03] LABS: ANISOCYTOSIS 1+; MACROCYTOSIS 1+; PLATELET ESTIMATE ADEQUATE
[2018-09-03 06:52] VITALS: BP 136/83; PULSE 87; TEMP 97.7
--- NOTE | 2018-09-03 14:16 | EKG ---
Test Reason : Blood Pressure : / mmHG Vent. Rate : 094 BPM Atrial Rate : 094 BPM P-R Int : 174 ms QRS Dur : 126 ms QT Int : 388 ms P-R-T Axes : 033 -67 088 degrees QTc Int : 485 ms NORMAL SINUS RHYTHM LEFT AXIS DEVIATION LEFT BUNDLE BRANCH BLOCK ABNORMAL ECG WHEN COMPARED WITH ECG OF 02-JUN-2018 17:06, LEFT BUNDLE BRANCH BLOCK HAS REPLACED NON-SPECIFIC INTRA-VENTRICULAR CONDUCTION BLOCK MINIMAL CRITERIA FOR ANTEROSEPTAL INFARCT ARE NO LONGER PRESENT Confirmed by JUSTIN CANALES MD ([id number]) on 09/03/2018 2:16:02 PM Referred By: Confirmed By:JUSTIN CANALES MD
== END 2018-09-03 07:06 | disposition home or self-care (01) ==
LOC: JER 00:21
DX: N39.0 Urinary tract infection, site not specified (principal); I10 Essential (primary) hypertension; I48.0 Paroxysmal atrial fibrillation; E78.5 Hyperlipidemia, unspecified; N40.0 Benign prostatic hyperplasia without lower urinary tract symptoms; J44.9 Chronic obstructive pulmonary disease, unspecified; Z79.82 Long term (current) use of aspirin; Z88.0 Allergy status to penicillin; Z88.8 Allergy status to other drugs, medicaments and biological substances; Z91.010 Allergy to peanuts
CPT/HCPCS: 36415; 74176-TC; 80053; 81003; 81015; 82272; 83605; 83690; 83735; 85025; 85730; 87086; 93005; 93010; 99283-25; J7030

== ENCOUNTER 2018-09-24 20:50 | Inpatient (IN) | payer OTHER, BC ==
[2018-09-24 21:17] VITALS: BMI 60.5
--- NOTE | 2018-09-24 21:40 | PDOC ---
History of Present Illness - General Chief Complaint: Pain Stated Complaint: RECTAL PAIN Time Seen by Provider: 09/24/18 21:07 History Source: Patient, Care Provider ([facility] present at bedside.) Exam Limitations: No Limitations - History of Present Illness Initial Comments: HPI: 73 y/o male BIBEMS to [facility] ER. Chief complaint, my rectum is killing me. Reports pain is to the right side of his rectum and has been acute on chronic for the past several months with episodes of worsening pain over the past two days. Further reports difficulty urinating but denies dysuria, hematuria, or penile discharge. Pt is bed bound and wears a diaper for voiding. Pt takes scheduled Oxycodone for chronic back pain. Uses milk of magnesia for bowel regimen. Endorses small bowel movements that require straining. Was evaluated at this department for similar symptoms on [address] scan at that time revealed stercoral colitis without evidence of bowel obstruction. UA was concerning for infectious process. Pt was discharged on Macrobid. Reports short term improvement in symptoms with antibiotics. Pt states he is unable to follow up with any PCP or outpatient clinic because he is bed bound. Pts [facility] at bedside. Reportedly provides 24/02 care. Past History - Past Medical History Allergies/Adverse Reactions: Allergies Allergy/AdvReac Type Severity Reaction Status Date / Time pregabalin [From Lyrica] Allergy Mild Verified 09/24/18 21:14 pravastatin sodium Allergy Unknown Verified 09/24/18 21:14 [From Pravachol] morphine Allergy Verified 09/24/18 21:14 peanut Allergy Verified 09/24/18 21:14 Penicillins Allergy Verified 09/24/18 21:14 lactose AdvReac Nausea Verified 09/24/18 21:14 Home Medications: Ambulatory Orders Lisinopril [Prinivil -] 20 mg PO BID 07/06/17 Aspirin [ASA -] 81 mg PO DAILY 01/12/18 Oxycodone HCl/Acetaminophen [Percocet 10-325 mg Tablet] 1 each PO BID 01/12/18 Alprazolam [Xanax] 0.25 mg PO BID 03/20/18 Nitrofurantoin Monohyd/M-Cryst [Macrobid -] 100 mg PO BID #20 capsule 09/03/18 Anemia: No Asthma: No Cancer: No Cardiac Disorders: Yes (HTN, HLD, Paroxysmal AFib) CVA: (NPH) COPD: Yes CHF: No DVT: No Dementia: No Diabetes: No GI Disorders: Yes (Diverticulitis, IBS, hemorrhoids) Disorders: Yes (Englarged Prostate) HTN: Yes Hypercholesterolemia: Yes Kidney Stones: Yes (s/p Right UVJ Stent placement) Liver Disease: No Psychiatric Problems: Yes (Depression/Anxiety) Seizures: No Thyroid Disease: No - Surgical History Abdominal Surgery: Yes (Hernia Repair) Appendectomy: No Cardiac Surgery: No Cholecystectomy: No GI Surgery: Yes (HEMORRHOIDS/ANAL ULCER, RIGHT UVJ STENT) Lung Surgery: No Neurologic Surgery: No Orthopedic Surgery: Yes (Spinal Surgery x2 w/ complications) - Immunization History Immunization Up to Date: Yes - Suicide/Smoking/Psychosocial Hx Smoking Status: No Smoking History: Former smoker Years of Tobacco Use: 20 Have you smoked in the past 12 months: No Number of Cigarettes Smoked Daily: 0 If you are a former smoker, when did you quit?: 1969 Information on smoking cessation initiated: No 'Breaking Loose' booklet given: 09/08/13 Hx Alcohol Use: No Drug/Substance Use Hx: No Substance Use Type: None Hx Substance Use Treatment: No Review of Systems - Review of Systems Able to Perform ROS?: Yes Comments:: In addition to that documented in the HPI above, the additional ROS was obtained : Constitutional: Endorses unchanged chills chronically for the past few months. Denies fevers Eyes: Denies vision changes ENMT: Denies sore throat CV: Denies chest pain Resp: Denies SOB GI: Per HPI : Per HPI MSK: Denies recent trauma Skin: Denies new rashes Neuro: Denies new numbness or tingling or weakness Endocrine: Denies polyuria Heme: Denies bleeding or bruising *Physical Exam - Vital Signs Last Vital Signs Temp Pulse Resp BP Pulse Ox 99.1 F 84 22 H 118/64 95 09/24/18 21:15 09/24/18 21:15 09/24/18 21:15 09/24/18 21:15 09/24/18 21:15 - Physical Exam Comments: Constitutional: Non-toxic elderly male in no acute distress or obvious discomfort. Found semi-fowlers on hospital bed. Alert and oriented x4. Answered all questions appropriately and completely. Speech was non-labored, non- pressured. Head: Normocephalic. No obvious external signs of trauma. Eyes: Sclerae white. Ears: Hearing grossly intact. Nose: No nasal discharge. Neck: Supple, trachea is midline. No JVD or thyromegaly. Cardiovascular / Chest: Regular rate and regular rhythm. No murmur, rubs, clicks, or gallops. Peripheral pulses: radial pulses full. Respiratory: Breathing unlabored. Equal chest rise and fall. Clear to auscultation bilaterally. No stridor, no wheezing, no rhonchi. Gastrointestinal: abdomen is tender in suprapubic region without rebound or guarding. Globally, abdomen is soft and nondistended. No pulsatile masses. No overlying skin lesions or obvious signs of trauma. Neuro: Alert and oriented. Speech normal. Skin: Warm, dry, and intact. Psych: Affect: appropriate. Mood: normal. MALE GENITALIA: Genital exam revealed normally developed male genitalia. Circumcised penis with two descended testicles. No scrotal tenderness. No perineal or perianal abnormalities are seen. No genital lesions or urethral discharge. RN chaperoned exam. MALE RECTAL: Good sphincter tone with no anal, perineal or rectal lesions. Soft stool present in vault. Prostate is not tender. RN chaperoned exam. Moderate Sedation - Procedure Monitoring Vital Signs: Procedure Monitoring Vital Signs Temperature 99.1 F 09/24/18 21:15 Pulse Rate 84 09/24/18 21:15 Respiratory Rate 22 H 09/24/18 21:15 Blood Pressure 118/64 09/24/18 21:15 O2 Sat by Pulse Oximetry (%) 95 09/24/18 21:15 ED Treatment Course - LABORATORY CBC & Chemistry Diagram: 09/25/18 00:45 09/25/18 00:45 Medical Decision Making - Medical Decision Making *Reviewed vital signs, nursing notes, and prior visit documentation (if available). 73 y/o male presenting with rectal pain suspicious for constipation. Pt is on chronic opiates with only milk of magnesia for bowel regimen. Was evaluated for similar symptoms at this department within last four weeks. Pt has not followed up with PCP or had home visit from [place]. Afebrile. Vitals unremarkable for hypotension or tachycardia. Physical exam as described above. No peritoneal signs. Will repeat basic labs, UA, and urine culture. Will administer fleet enima to obtain BM. Pt signed out to resident Dr. Antonio after he was verbally appraised of the pt s HPI, current ED course, and plan of management. Will follow up on labs, UA, and CT scan. Dispo pending reassessment. *DC/Admit/Observation/Transfer Diagnosis at time of Disposition: Rectal pain - Discharge Dispostion Condition at time of disposition: Stable - Referrals - Patient Instructions - Post Discharge Activity
[2018-09-24] MEDS ORDERED: LACTATED RINGERS SOLUTION 1000 ML INFUS.BAG IV ONE (22:19)
[2018-09-24] MEDS ORDERED: SODIUM PHOSPHATE/NA BIPHOS 133 ML ENEMA PR ONE (22:22)
--- NOTE | 2018-09-24 22:54 | PDOC ---
Attending Attestation - Resident Resident Name: Chaz Noel - ED Attending Attestation I have performed the following: I have examined & evaluated the patient, The case was reviewed & discussed with the resident, I agree w/resident's findings & plan, Exceptions are as noted - HPI HPI: 09/24/18 22:50 The patient is a 73 year old male, with a significant past medical history of atrial fibrillation, hypertension, bed-bound since spinal surgery, BPH, who presents to the emergency department with worsening rectal pain for 3 months. Pt reports feeling a sharp pain in his rectum radiating to his lower abdomen. Pt endorses chronic constipation, likely 2/2 chronic oxycodone use. Pt was seen here 09/[address] done at the time showed stercoral colitis. Pt also was found to have UTI. Was sent home on abx, which he finished. He reports no change in his symptoms after abx. The patient denies chest pain, shortness of breath, headache and dizziness. Denies fever, chills, nausea, vomit, diarrhea and constipation. Denies dysuria, frequency, urgency and hematuria. Allergies: pregabalin, pravastatin sodium, morphine, peanut, penicillins, lactose Past surgical history: spinal surgery Social history: No reported - Physicial Exam PE: 09/24/18 22:53 "GENERAL: Awake, alert, and fully oriented, in no acute distress. HEAD: No signs of trauma EYES: PERRLA, EOMI, sclera anicteric, conjunctiva clear ENT: Auricles normal inspection, hearing grossly normal, nares patent, oropharynx clear without exudates. Moist mucosa NECK: Nontender, no stepoffs, Normal ROM, supple, no lymphadenopathy, JVD, or masses LUNGS: Breath sounds equal, clear to auscultation bilaterally. No wheezes, and no crackles HEART: Regular rate and rhythm, normal S1 and S2, no murmurs, rubs or gallops ABDOMEN: Soft, + suprapubic tenderness, normoactive bowel sounds. No guarding, no rebound. No masses EXTREMITIES: Normal range of motion, no edema. No clubbing or cyanosis. No cords, erythema, or tenderness NEUROLOGICAL: Cranial nerves II through XII intact. SKIN: Warm, Dry, normal turgor, no rashes or lesions noted. - Medical Decision Making 09/24/18 22:53 73 M with rectal pain and lower abdominal pain. Suspect severe constipation as cause, as pt presented with same complaint last month and was found to have stercoral colitis. - Labs, UA - Enema - Reassess
[2018-09-25 01:52] LABS: EOS % 5.7 % (0-4.5); HEMATOCRIT 40.9 % (35.4-49); LYMPH % 24.2 % (8-40); MCH 35.7 pg (25.7-33.7); MCHC 34.2 g/dl (32.0-35.9); MEAN CELL VOLUME 104.5 fl (80-96); MEAN PLT VOLUME 10.3 fl (7.5-11.1); MONO % 6.2 % (3.8-10.2); NEUT % 62.9 % (42.8-82.8); PLATELET COUNT 212 K/MM3 (134-434); RBC 3.92 M/mm3 (4.00-5.60); RDW 14.6 % (11.9-15.9)
[2018-09-25 02:59] LABS: URINE APPEARANCE CLOUDY; URINE BILIRUBIN NEGATIVE (<2.0 mg/dL); URINE COLOR AMBER; URINE GLUCOSE (UA) NEGATIVE (NEGATIVE); URINE KETONE NEGATIVE (NEGATIVE); URINE LEUK ESTERASE 3+ (NEGATIVE); URINE NITRITE NEGATIVE (NEGATIVE); URINE PROTEIN 1+ (NEGATIVE)
[2018-09-25 03:02] LABS: ANION GAP 8 MMOL/L (8-16); BLOOD UREA NITROGEN 26 mg/dL (7-18); CALCIUM 8.7 mg/dL (8.5-10.1); CHLORIDE 105 mmol/L (98-107); CO2 23 mmol/L (21-32); CREATININE 1.4 mg/dL (0.55-1.3); GLUCOSE,RANDOM 88 mg/dL (74-106); POTASSIUM 5.3 mmol/L (3.5-5.1); SODIUM 136 mmol/L (136-145)
[2018-09-25] MEDS ORDERED: SODIUM CHLORIDE 0.9% 500 ML INFUS.BAG IV ONE (03:10)
[2018-09-25 03:12] LABS: EPI CELLS RARE /HPF (FEW); URINE MUCUS RARE
--- NOTE | 2018-09-25 04:24 | PDOC ---
*Physical Exam - Vital Signs Last Vital Signs Temp Pulse Resp BP Pulse Ox 99.1 F 84 22 H 118/64 95 09/24/18 21:15 09/24/18 21:15 09/24/18 21:15 09/24/18 21:15 09/24/18 21:15 ED Treatment Course - LABORATORY CBC & Chemistry Diagram: 09/25/18 00:45 09/25/18 00:45 - ADDITIONAL ORDERS Additional order review: Laboratory Results 09/25/18 09/25/18 02:11 00:45 Sodium 136 Potassium 5.3 H Chloride 105 Carbon Dioxide 23 Anion Gap 8 BUN 26 H Creatinine 1.4 H Creat Clearance w eGFR 49.41 Random Glucose 88 Calcium 8.7 Urine Color Joan Urine Appearance Cloudy Urine pH 6.0 Ur Specific [place] 1.024 Urine Protein 1+ H Urine Glucose (UA) Negative Urine Ketones Negative Urine Blood Negative Urine Nitrite Negative Urine Bilirubin Negative Urine Urobilinogen 2.0 Ur Leukocyte Esterase 3+ H Urine WBC (Auto) 596 Urine RBC (Auto) 11 Ur Epithelial Cells Rare Urine Mucus Rare 09/25/18 00:45 RBC 3.92 L MCV 104.5 H MCHC 34.2 RDW 14.6 MPV 10.3 Neutrophils % 62.9 Lymphocytes % 24.2 D Monocytes % 6.2 Eosinophils % 5.7 H Basophils % 1.0 - RADIOLOGY Radiology Studies Ordered: Category Date Time Status ABDOMEN & PELVIS CT W/O CONTR [CT] Stat CT Scan 09/25/18 03:11 Taken - Medications Given in the ED: ED Medications Discontinued Medications Generic Name Dose Route Start Last Admin Trade Name Freq PRN Reason Stop Dose Admin Lactated Ringer's 1,000 ml 09/24/18 22:19 09/25/18 01:15 Lactated Ringers Solution IV 09/24/18 22:20 1,000 ml ONCE ONE Administration Sodium Chloride 1,000 ml 09/25/18 03:10 09/25/18 04:17 Normal Saline - IV 09/25/18 03:11 1,000 ml ONCE ONE Administration Sodium Phosphate 133 ml 09/24/18 22:22 09/25/18 02:30 Fleet Adult Rectal Enema - [place] 09/24/18 22:23 133 ml ONCE ONE Administration Medical Decision Making - Medical Decision Making Patient signed out to me. He was found to have urinary tract infection as well as severe constipation. The patient states he cannot go home like this and needs to be admitted to the hospital. Given his social difficulty and inability to ambulate will admit the patient for UTI and have social work address his situation in the morning. *DC/Admit/Observation/Transfer Diagnosis at time of Disposition: Rectal pain, Constipation, UTI (urinary tract infection) - Discharge Dispostion Condition at time of disposition: Stable Decision to Admit order: Yes - Prescriptions Prescriptions: Polyethylene Glycol 3350 [Miralax (For Daily Use) -] 17 gm PO ONCE #1 bottle Sulfamethoxazole/Trimethoprim [Bactrim Ds -] 1 tab PO BID #14 tablet - Referrals Referrals: Jennifer Hawthorne MD [Staff Physician] - - Patient Instructions Printed Discharge Instructions: Constipation Additional Instructions: You came into the ER with abdominal pain. We did a cat scan which showed you have bad constipation. We are giving you the number for a lab analyst to follow up with. Please make sure to call and schedule an appointment. We are also sending miralax to your pharmacy to help you move your bowels. Please make sure to go and pick it up. YOU HAVE A URINARY TRACT INFECTION. We looked at your urine and noticed it was infected. We are sending Bactrim to your pharmacy to take for the next 7 days. Please make sure to pick it up and take it twice a day for the next seven days. Come back to the ER if your pain worsens, you get a fever, start vomiting, or have any other new or worsening concerns. Thank you for coming to the [facility] ER. We hope you feel better soon! Print Language: ICELANDIC - Post Discharge Activity
[2018-09-25] MEDS ORDERED: SULFAMETHOXAZOLE/TRIMETHOPRIM 800MG/160MG D.S. TABLET PO ONE (06:17)
[2018-09-25] MEDS ORDERED: SULFAMETHOXAZOLE/TRIMETHOPRIM 800MG/160MG D.S. TABLET ONE (06:50)
[2018-09-25 07:09] VITALS: BP 145/75; PULSE 77; TEMP 98.6
--- NOTE | 2018-09-25 08:08 | HP ---
CHIEF COMPLAINT: constipation causing rectal pain PCP: HISTORY OF PRESENT ILLNESS: The patient is a 73 year old male, with a significant past medical history of atrial fibrillation, hypertension, bed- bound since spinal surgery, BPH, who presents to the emergency department with worsening rectal pain for 3 months. Pt reports feeling a pain in his rectum radiating to his lower abdomen. Pt endorses chronic constipation, likely 2/2 chronic oxycodone use. Pt was seen here 09/03 for same complaint. . The patient denies chest pain, shortness of breath, headache and dizziness Denies fever, chills, nausea, vomit, diarrhea and constipation.Denies dysuria, frequency, urgency and hematuria. also states pain occur in beginning of defecation and goes away after defecation In hospital pt got enema and he had bowel movement after that. Pt states pain resolved after enema. Pt also states that he doesn't want to go to shelter or rehab. Also states that he use to have visiting Industrial Energy Engineer/pa but he doesn't want them to come. CT abdomen done in er shows stool in rectum pt is bed ridden since 2017 after spine surgery. ER course was notable for: (1)cbc, cmp, ua (2)ct abdomen (3) Recent Travel: no PAST MEDICAL HISTORY:as above PAST SURGICAL HISTORY: hernia, spine, hemorrhoid Social History: Smoking: quit Family History: not relevent Allergies pregabalin [From Lyrica] Allergy (Mild, Verified 09/24/18 21:14) pravastatin sodium [From Pravachol] Allergy (Unknown, Verified 09/24/18 21:14) however, pt takes atorvastatin 10 mg daily at home, reportedly without side effects morphine Allergy (Verified 09/24/18 21:14) unknown peanut Allergy (Verified 09/24/18 21:14) Penicillins Allergy (Verified 09/24/18 21:14) unknown affect lactose Adverse Reaction (Verified 09/24/18 21:14) Nausea HOME MEDICATIONS: Home Medications Medication Instructions Recorded Lisinopril [Prinivil -] 20 mg PO BID 07/06/17 Aspirin [ASA -] 81 mg PO DAILY 01/12/18 Oxycodone HCl/Acetaminophen 1 each PO BID 01/12/18 [Percocet 10-325 mg Tablet] Alprazolam [Xanax] 0.25 mg PO BID 03/20/18 Polyethylene Glycol 3350 [Miralax 17 gm PO ONCE #1 bottle 09/25/18 (For Daily Use) -] Sulfamethoxazole/Trimethoprim 1 tab PO BID #14 tablet 09/25/18 [Bactrim Ds -] REVIEW OF SYSTEMS CONSTITUTIONAL: Absent: fever, diaphoresis, generalized weakness, malaise, loss of appetite, weight change HEENT: Absent: rhinorrhea, nasal congestion, throat pain, throat swelling, difficulty swallowing, mouth swelling, ear pain, eye pain, visual changes CARDIOVASCULAR: Absent: chest pain, syncope, palpitations, irregular heart rate, lightheadedness , peripheral edema RESPIRATORY: Absent: cough, shortness of breath, dyspnea with exertion, orthopnea, wheezing, stridor, hemoptysis GASTROINTESTINAL: Absent: abdominal pain, abdominal distension, nausea, vomiting, diarrhea, melena, hematochezia GENITOURINARY: Absent: dysuria, frequency, urgency, hesitancy, hematuria, flank pain, genital pain MUSCULOSKELETAL: Absent: myalgia, arthralgia, joint swelling, back pain, neck pain SKIN: Absent: rash, itching, pallor HEMATOLOGIC/IMMUNOLOGIC: Absent: easy bleeding, easy bruising, lymphadenopathy, frequent infections ENDOCRINE: Absent: unexplained weight gain, unexplained weight loss, heat intolerance, cold intolerance NEUROLOGIC: Absent: headache, focal weakness or paresthesias, dizziness, unsteady gait, seizure, mental status changes, bladder or bowel incontinence PSYCHIATRIC: Absent: anxiety, depression, PHYSICAL EXAMINATION Vital Signs - 24 hr 09/24/18 09/25/18 21:15 07:07 Temperature 99.1 F 98.6 F Pulse Rate 84 Pulse Rate [ 77 Left Apical] Respiratory 22 H 20 Rate Blood Pressure 118/64 Blood Pressure 145/75 [Left] O2 Sat by Pulse 95 96 Oximetry (%) GENERAL: Awake, alert, and fully oriented, in no acute distress. HEAD: Normal with no signs of trauma. EARS, NOSE, THROAT: Moist mucous membranes. NECK: Normal range of motion, supple without lymphadenopathy, JVD, or masses. LUNGS: Breath sounds equal, clear to auscultation bilaterally. No wheezes, and no crackles. No accessory muscle use. HEART: Regular rate and rhythm, normal S1 and S2 without murmur, rub or gallop. ABDOMEN: Soft, nontender, not distended, normoactive bowel sounds, no guarding, no rebound, no masses. UT ; no blood, no mass palpable, tone normal, stool present UPPER EXTREMITIES: 2+ pulses, warm, well-perfused. PSYCHIATRIC: Cooperative. Good eye contact. SKIN: Warm, dry, normal turgor, Laboratory Results - last 24 hr 09/25/18 09/25/18 09/25/18 00:45 00:45 02:11 WBC 11.0 H RBC 3.92 L Hgb 14.0 Hct 40.9 MCV 104.5 H MCH 35.7 H MCHC 34.2 RDW 14.6 Plt Count 212 MPV 10.3 Absolute Neuts (auto) 6.9 Neutrophils % 62.9 Lymphocytes % 24.2 D Monocytes % 6.2 Eosinophils % 5.7 H Basophils % 1.0 Nucleated RBC % 0 Sodium 136 Potassium 5.3 H Chloride 105 Carbon Dioxide 23 Anion Gap 8 BUN 26 H Creatinine 1.4 H Creat Clearance w eGFR 49.41 Random Glucose 88 Calcium 8.7 Urine Color Joan Urine Appearance Cloudy Urine pH 6.0 Ur Specific [place] 1.024 Urine Protein 1+ H Urine Glucose (UA) Negative Urine Ketones Negative Urine Blood Negative Urine Nitrite Negative Urine Bilirubin Negative Urine Urobilinogen 2.0 Ur Leukocyte Esterase 3+ H Urine WBC (Auto) 596 Urine RBC (Auto) 11 Ur Epithelial Cells Rare Urine Mucus Rare ASSESSMENT/PLAN: Constipation is likley the cause of rectal pain Pain resolved after enema. constipation is likely because of bed ridden and opioid will start him on miralax enema prn recti care ointment orally allowed electrolyte normal regular diet. for uti pt already got po antibiotics send. No symptoms remove walsh pt doesn't want to go to shelter/ rehab and also refuse visiting doctor or nurse. pt has 24/02 health aid sitting next to pt. we will dc pt on bowel regimen Visit type - Emergency Visit Emergency Visit: Yes ED Registration Date: 09/25/18 Care time: The patient presented to the Emergency Department on the above date and was hospitalized for further evaluation of their emergent condition. - New Patient This patient is new to me today: Yes Date on this admission: 09/25/18 - Critical Care Critical Care patient: No
--- NOTE | 2018-09-25 08:28 | DS ---
Physical Exam: SUBJECTIVE: Patient seen and examined OBJECTIVE: Vital Signs Period Temp Pulse Resp BP Sys/[place] Pulse Ox Last 24 Hr 98.6 F-99.1 F 77-84 20-22 118-145/64-75 95-96 PHYSICAL EXAM GENERAL: The patient is awake, alert, and fully oriented, in no acute distress. HEAD: Normal with no signs of trauma. EYES: PERRL, extraocular movements intact, sclera anicteric, conjunctiva clear. ENT: Ears normal, nares patent, oropharynx clear without exudates, moist mucous membranes. NECK: Trachea midline, full range of motion, supple. LUNGS: Breath sounds equal, clear to auscultation bilaterally, no wheezes, no crackles, no accessory muscle use. HEART: Regular rate and rhythm, S1, S2 without murmur, rub or gallop. ABDOMEN: Soft, nontender, nondistended, normoactive bowel sounds, no guarding, no rebound, no hepatosplenomegaly, no masses. EXTREMITIES: 2+ pulses, warm, well-perfused, no edema. NEUROLOGICAL: Cranial nerves II through XII grossly intact. Normal speech, gait not observed. PSYCH: Normal mood, normal affect. SKIN: Warm, dry, normal turgor, no rashes or lesions noted. LABS Laboratory Results - last 24 hr 09/25/18 09/25/18 09/25/18 00:45 00:45 02:11 WBC 11.0 H RBC 3.92 L Hgb 14.0 Hct 40.9 MCV 104.5 H MCH 35.7 H MCHC 34.2 RDW 14.6 Plt Count 212 MPV 10.3 Absolute Neuts (auto) 6.9 Neutrophils % 62.9 Lymphocytes % 24.2 D Monocytes % 6.2 Eosinophils % 5.7 H Basophils % 1.0 Nucleated RBC % 0 Sodium 136 Potassium 5.3 H Chloride 105 Carbon Dioxide 23 Anion Gap 8 BUN 26 H Creatinine 1.4 H Creat Clearance w eGFR 49.41 Random Glucose 88 Calcium 8.7 Urine Color Joan Urine Appearance Cloudy Urine pH 6.0 Ur Specific [place] 1.024 Urine Protein 1+ H Urine Glucose (UA) Negative Urine Ketones Negative Urine Blood Negative Urine Nitrite Negative Urine Bilirubin Negative Urine Urobilinogen 2.0 Ur Leukocyte Esterase 3+ H Urine WBC (Auto) 596 Urine RBC (Auto) 11 Ur Epithelial Cells Rare Urine Mucus Rare HOSPITAL COURSE: Date of Admission:09/25/18 Date of Discharge: 09/25/18 Discharge Summary Reason For Visit: RECTAL PAIN CONSTIPATION UTI INABILITY TO AMBULATE Current Active Problems Constipation (Acute) Rectal pain (Acute) UTI (urinary tract infection) (Acute) Condition: Stable - Instructions Diet, Activity, Other Instructions: You came into the ER with abdominal pain. We did a cat scan which showed you have bad constipation. We are giving you the number for a transportation dispatcher to follow up with. Please make sure to call and schedule an appointment. We are also sending miralax to your pharmacy to help you move your bowels. Please make sure to go and pick it up. You can also take enema PRN if miralax doesn't help. we ARE ALSO SENDING PRESCRIPTION FOR RECTICARE. Apply it twice a day around your anal area. It will decrease the pain. Drink plenty of liquid YOU HAVE A URINARY TRACT INFECTION. We looked at your urine and noticed it was infected. We are sending Bactrim to your pharmacy to take for the next 7 days. Please make sure to pick it up and take it twice a day for the next seven days. Come back to the ER if your pain worsens, you get a fever, start vomiting, or have any other new or worsening concerns. Thank you for coming to the [facility] ER. We hope you feel better soon! Referrals: Jennifer Hawthorne MD [Staff Physician] - Disposition: HOME - Home Medications Comprehensive Discharge Medication List: Ambulatory Orders Lisinopril [Prinivil -] 20 mg PO BID 07/06/17 Aspirin [ASA -] 81 mg PO DAILY 01/12/18 Oxycodone HCl/Acetaminophen [Percocet 10-325 mg Tablet] 1 each PO BID 01/12/18 Alprazolam [Xanax] 0.25 mg PO BID 03/20/18 Lidocaine [Recticare] 15 gm TP BID #60 cream..g. 09/25/18 Polyethylene Glycol 3350 [Miralax (For Daily Use) -] 17 gm PO ONCE #1 bottle Sulfamethoxazole/Trimethoprim [Bactrim Ds -] 1 tab PO BID #14 tablet 09/25/18
--- NOTE | 2018-09-25 11:41 | PN ---
Teaching Attending Note Name of Resident: Ashish Valera ATTENDING PHYSICIAN STATEMENT I saw and evaluated the patient. I reviewed the resident's note and discussed the case with the resident. I agree with the resident's findings and plan as documented. SUBJECTIVE: Mr Hernandez complains of denise-rectal pain that is chronic and unchanged. Denies cp, sob, n/v. OBJECTIVE: Last Vital Signs Temp Pulse Resp BP Pulse Ox 37.0 C 77 20 145/75 96 09/25/18 07:07 09/25/18 07:07 09/25/18 07:07 09/25/18 07:07 09/25/18 07:07 Gen: nad Pulm: ctab w/o w/r/r CV: rrr w/o m/r/g Abd: +bs, s/nt/nd Ext: no c/c/e CBC, BMP 09/25/18 00:45 09/25/18 00:45 ASSESSMENT AND PLAN: -patient with chronic urinary retention and constipation -urinalysis showing elevated WBCs with minor leukocyte esterase, possible sterile pyuria -multiple urine cultures sent and negative, last positive in 2017 -patient does not have signs of sepsis and can tolerate po -history of chronic constipation but no obstruction, eating and drinking without difficulty -currently safe for discharge -send out on miralax -can use prn enemas at home -bactrim for UTI -encouraged patient to trial VNS vs home physician visit -patient angrily declined saying "they are terrible and I kicked them out of my house"
== END 2018-09-25 11:01 | disposition home or self-care (01) | DRG 392 ==
LOC: JER 20:50 → JERBED 09-25 05:25 → OBSVTOIN 09-25 08:07
PROVIDERS: ADMIT Internal Medicine; ATTEND Internal Medicine
DX: K59.03 Drug induced constipation (principal); N39.0 Urinary tract infection, site not specified; I48.0 Paroxysmal atrial fibrillation; I10 Essential (primary) hypertension; E78.00 Pure hypercholesterolemia, unspecified; J44.9 Chronic obstructive pulmonary disease, unspecified; N40.0 Benign prostatic hyperplasia without lower urinary tract symptoms; F41.8 Other specified anxiety disorders; Z74.01 Bed confinement status; R33.9 Retention of urine, unspecified; T40.2X5A Adverse effect of other opioids, initial encounter; Y92.009 Unspecified place in unspecified non-institutional (private) residence as the place of occurrence of the external cause
CPT/HCPCS: 36415; 74176-TC; 80048; 81003; 81015; 85025; 87086; 99283-25; G0378

== ENCOUNTER 2018-10-31 02:03 | Emergency (ER) | payer OTHER, BC ==
[2018-10-31 02:20] VITALS: BP 131/74; PULSE 83; TEMP 98.9
[2018-10-31] MEDS ORDERED: LACTULOSE 20 GM/30 ML UDC (FOR ORAL USE ONLY) PO ONE (03:13)
[2018-10-31] MEDS ORDERED: POLYETHYLENE GLYCOL 3350 119 GM BTL PO ONE (03:13)
--- NOTE | 2018-10-31 03:13 | PDOC ---
Attending Attestation - Resident Resident Name: Chaz Noel - ED Attending Attestation I have performed the following: I have examined & evaluated the patient, The case was reviewed & discussed with the resident, I agree w/resident's findings & plan - HPI HPI: 10/31/18 03:11 Pt comes with rectal pain. Diaper full of stool. Knows to us for narcotic pain med use and constipation. Pt uses senna at home. - Physicial Exam PE: 10/31/18 03:11 Agree with resident exam. Pt has some hard stool in his abd and his abd is distended. - Medical Decision Making 10/31/18 03:12 Pt will be given a dose of laxative in the ER and he will be sent home with the same. His HHAide was advised to change him more frequently.
[2018-10-31] MEDS ORDERED: LACTULOSE 20 GM/30 ML UDC (FOR ORAL USE ONLY) ONE (03:16)
--- NOTE | 2018-10-31 03:26 | PDOC ---
History of Present Illness - General Chief Complaint: Pain Stated Complaint: RECTAL PAIN Time Seen by Provider: 10/31/18 02:48 History Source: Patient, Care Provider (Home health aid at bedside.), Old Records Exam Limitations: No Limitations - History of Present Illness Initial Comments: HPI: 73 y/o male BIBEMS from home to [facility] ER complaining, my rectum is killing me. States it started yesterday and has persisted without change. States last BM was yesterday. Described as normal. Pt takes scheduled Oxycodone for chronic back pain. Is prescribed Miralax and Senna for bowel regimen but does not take it regularly. Does not know why. Has been evaluated at this department multiple times for similar complaints. Pt was admitted at last presentation for social work assistance. Pt declined facility placement and declined further ERADICATOR/PA home visits. Lives with a 24/02 home health aid. Past History - Past Medical History Allergies/Adverse Reactions: Allergies Allergy/AdvReac Type Severity Reaction Status Date / Time pregabalin [From Lyrica] Allergy Mild Verified 10/31/18 02:12 pravastatin sodium Allergy Unknown Verified 10/31/18 02:12 [From Pravachol] morphine Allergy Verified 10/31/18 02:12 peanut Allergy Verified 10/31/18 02:12 Penicillins Allergy Verified 10/31/18 02:12 lactose AdvReac Nausea Verified 10/31/18 02:12 Home Medications: Ambulatory Orders Lisinopril [Prinivil -] 20 mg PO BID 07/06/17 Aspirin [ASA -] 81 mg PO DAILY 01/12/18 Oxycodone HCl/Acetaminophen [Percocet 10-325 mg Tablet] 1 each PO BID 01/12/18 Alprazolam [Xanax] 0.25 mg PO BID 03/20/18 Lidocaine [Recticare] 15 gm TP BID #60 cream..g. 09/25/18 Polyethylene Glycol 3350 [Miralax (For Daily Use) -] 17 gm PO ONCE #1 bottle Anemia: No Asthma: No Cancer: No Cardiac Disorders: Yes (HTN, HLD, Paroxysmal AFib) CVA: (NPH) COPD: Yes CHF: No DVT: No Dementia: No Diabetes: No GI Disorders: Yes (Diverticulitis, IBS, hemorrhoids) Disorders: Yes (Englarged Prostate) HTN: Yes Hypercholesterolemia: Yes Kidney Stones: Yes (s/p Right UVJ Stent placement) Liver Disease: No Psychiatric Problems: Yes (Depression/Anxiety) Seizures: No Thyroid Disease: No - Surgical History Abdominal Surgery: Yes (Hernia Repair) Appendectomy: No Cardiac Surgery: No Cholecystectomy: No GI Surgery: Yes (HEMORRHOIDS/ANAL ULCER, RIGHT UVJ STENT) Lung Surgery: No Neurologic Surgery: No Orthopedic Surgery: Yes (Spinal Surgery x2 w/ complications) - Immunization History Immunization Up to Date: Yes - Suicide/Smoking/Psychosocial Hx Smoking Status: No Smoking History: Unknown if ever smoked Years of Tobacco Use: 20 Have you smoked in the past 12 months: No Number of Cigarettes Smoked Daily: 0 If you are a former smoker, when did you quit?: 1969 Information on smoking cessation initiated: No 'Breaking Loose' booklet given: 09/08/13 Hx Alcohol Use: No Drug/Substance Use Hx: No Substance Use Type: None Hx Substance Use Treatment: No Review of Systems - Review of Systems Able to Perform ROS?: Yes Comments:: In addition to that documented in the HPI above, the additional ROS was obtained : Constitutional: Denies fevers or chills ENMT: Denies sore throat CV: Denies chest pain Resp: Denies SOB GI: Denies vomiting or diarrhea MSK: Denies trauma *Physical Exam - Vital Signs Last Vital Signs Temp Pulse Resp BP Pulse Ox 98.9 F 83 20 131/74 96 10/31/18 02:17 10/31/18 02:17 10/31/18 02:17 10/31/18 02:17 10/31/18 02:17 - Physical Exam Comments: Constitutional: Adult male in no acute distress or obvious discomfort. Obese body habitus. Found semi-fowlers on hospital bed. Alert and oriented x4. Answered all questions appropriately and completely. Speech was non-labored, non -pressured. Head: Normocephalic. No obvious external signs of trauma. Cardiovascular / Chest: Regular rate and regular rhythm. No murmur, rubs, clicks, or gallops. Peripheral pulses: radial pulses full. Respiratory: Breathing unlabored. Equal chest rise and fall. Clear to auscultation bilaterally. No stridor, no wheezing, no rhonchi. Gastrointestinal: abdomen is distended in RLQ with palpable stool burden. No tenderness. No peritoneal signs. Neuro: Alert and oriented. Moving all four extremities spontaneously. Skin: Warm, dry, and intact. Psych: Affect: appropriate. Mood: normal. Male Rectal: Good sphincter tone with no anal, perineal or rectal lesions. Large amount of normal appearing brown stool in pts diaper. Soft stool in rectal vault. No marlin blood or obvious melena. ED Attending chaperoned exam. ED Treatment Course - Medications Given in the ED: ED Medications Discontinued Medications Generic Name Dose Route Start Last Admin Trade Name Kaitlynn PRN Reason Stop Dose Admin Lactulose 20 gm 10/31/18 03:13 10/31/18 03:20 Cephulac (Oral Use) PO 10/31/18 03:14 20 gm ONCE ONE Administration Polyethylene Glycol 17 gm 10/31/18 03:13 10/31/18 03:20 Miralax (For Daily Use) - PO 10/31/18 03:14 17 gm ONCE ONE Administration Medical Decision Making - Medical Decision Making *Reviewed vital signs, nursing notes, and prior visit documentation (if available). 73 y/o male presenting with rectal pain suspected to be secondary to constipation from chronic opiate use without adherence to bowel regimen. Pt has declined multiple attempts for placement or clinic referral. Afebrile. Vitals unremarkable for hypotension or tachycardia. No peritoneal signs. Low suspicion for stool impaction given rectal exam findings. Ordered Lactulose and Miralax for symptom relief. Will not order CT scan as pt has already received two unremarkable scans this year for same complaint. Encouraged pt to consider discontinuing chronic opiate use and/or becoming compliant with prescribed bowel medications. Provided referral for outpatient GI f/u. *DC/Admit/Observation/Transfer Diagnosis at time of Disposition: Rectal pain Constipation Qualifiers: Constipation type: unspecified constipation type Qualified Code(s): K59.00 - Constipation, unspecified - Discharge Dispostion Disposition: HOME Condition at time of disposition: Good Decision to Admit order: No - Referrals Referrals: Eligio Lemons MD [Staff Physician] - - Patient Instructions Printed Discharge Instructions: DI for Constipation Additional Instructions: You were seen today for rectal pain from your constipation. This is your third visit for this complaint this year. You need to either stop taking oxycodone or start taking your Miralax and Senna regularly. I have placed a referral for you to see a GI doctor named Dr. Lemons. You will need to call to make an appointment. The number is included in this packet. Go to the nearest emergency department if your condition worsens or you feel like you need additional emergency evaluation. Print Language: LITHUANIAN - Post Discharge Activity
== END 2018-10-31 03:57 | disposition home or self-care (01) ==
LOC: JER 02:03
DX: K59.03 Drug induced constipation (principal); K31.9 Disease of stomach and duodenum, unspecified; T40.2X5A Adverse effect of other opioids, initial encounter; Y92.018 Other place in single-family (private) house as the place of occurrence of the external cause; I10 Essential (primary) hypertension; E78.00 Pure hypercholesterolemia, unspecified; I48.0 Paroxysmal atrial fibrillation; Z79.01 Long term (current) use of anticoagulants; N40.0 Benign prostatic hyperplasia without lower urinary tract symptoms; Z87.19 Personal history of other diseases of the digestive system; F41.8 Other specified anxiety disorders; F32.9 Major depressive disorder, single episode, unspecified; Z96.0 Presence of urogenital implants
CPT/HCPCS: 99282-25

== ENCOUNTER 2019-02-05 23:19 | Emergency (ER) | payer OTHER, BC ==
[2019-02-05 23:46] VITALS: BP 128/77; PULSE 90; TEMP 98; BMI 25.8
--- NOTE | 2019-02-06 00:02 | PDOC ---
History of Present Illness - General Chief Complaint: Constipation Stated Complaint: CONSTIPATION Time Seen by Provider: 02/06/19 00:01 - History of Present Illness Initial Comments: 02/06/19 00:01 Mr. Hernandez is a 73 yo male w/ pmh of HTN, HLD, chronic leg pain for which he takes daily narcotics, and IBS constipation type who presents for evaluation of rectal pain he reports is typical of his constipation. Patient has been evaluated for same in past. Denies having a PCP or GI physician. Patient had a BM upon arrival to ER. The patient denies chest pain, shortness of breath, headache and dizziness. Denies fever, chills, nausea, vomit, diarrhea and constipation. Denies dysuria, frequency, urgency and hematuria. Past History - Past Medical History Allergies/Adverse Reactions: Allergies Allergy/AdvReac Type Severity Reaction Status Date / Time pregabalin [From Lyrica] Allergy Mild Verified 02/05/19 23:46 pravastatin sodium Allergy Unknown Verified 02/05/19 23:46 [From Pravachol] morphine Allergy Verified 02/05/19 23:46 peanut Allergy Verified 02/05/19 23:46 Penicillins Allergy Verified 02/05/19 23:46 lactose AdvReac Nausea Verified 02/05/19 23:46 Home Medications: Ambulatory Orders Lisinopril [Prinivil -] 20 mg PO BID 07/06/17 Aspirin [ASA -] 81 mg PO DAILY 01/12/18 Oxycodone HCl/Acetaminophen [Percocet 10-325 mg Tablet] 1 each PO HS 01/12/18 Alprazolam [Xanax] 0.25 mg PO BID 03/20/18 Lidocaine [Recticare] 15 gm TP BID #60 cream..g. 09/25/18 Polyethylene Glycol 3350 [Miralax (For Daily Use) -] 17 gm PO ONCE #1 bottle Pantoprazole Sodium [Protonix] 40 mg PO DAILY 02/06/19 Polyethylene Glycol 3350 [Miralax (For Daily Use) -] 17 gm PO ONCE 30 Days #1 bottle 02/06/19 Sodium Phosphate,[place]-Dibasic [Fleet Enema] 133 ml RC PRN PRN #4 enema 02/06/19 Anemia: No Asthma: No Cancer: No Cardiac Disorders: Yes (HTN, HLD, Paroxysmal AFib) CVA: (NPH) COPD: Yes CHF: No DVT: No Dementia: No Diabetes: No GI Disorders: Yes (Diverticulitis, IBS, hemorrhoids) Disorders: Yes (Englarged Prostate) HTN: Yes Hypercholesterolemia: Yes Kidney Stones: Yes (s/p Right UVJ Stent placement) Liver Disease: No Psychiatric Problems: Yes (Depression/Anxiety) Seizures: No Thyroid Disease: No - Surgical History Abdominal Surgery: Yes (Hernia Repair) Appendectomy: No Cardiac Surgery: No Cholecystectomy: No GI Surgery: Yes (HEMORRHOIDS/ANAL ULCER, RIGHT UVJ STENT) Lung Surgery: No Neurologic Surgery: No Orthopedic Surgery: Yes (Spinal Surgery x2 w/ complications) - Immunization History Immunization Up to Date: Yes - Suicide/Smoking/Psychosocial Hx Smoking Status: No Smoking History: Unknown if ever smoked Years of Tobacco Use: 20 Have you smoked in the past 12 months: No Number of Cigarettes Smoked Daily: 0 If you are a former smoker, when did you quit?: 1970 Information on smoking cessation initiated: No 'Breaking Loose' booklet given: 09/08/13 Hx Alcohol Use: No Drug/Substance Use Hx: No Substance Use Type: None Hx Substance Use Treatment: No Review of Systems - Review of Systems Comments:: 02/06/19 00:01 GENERAL/CONSTITUTIONAL: No fever or chills. No weakness. HEAD, EYES, EARS, NOSE AND THROAT: No change in vision. No ear pain or discharge. No sore throat. CARDIOVASCULAR: No chest pain or shortness of breath RESPIRATORY: No cough, wheezing, or hemoptysis. GASTROINTESTINAL: No nausea, vomiting, diarrhea or constipation. GENITOURINARY: No dysuria, frequency, or change in urination. MUSCULOSKELETAL: No joint or muscle swelling or pain. No neck or back pain. SKIN: No rash NEUROLOGIC: No headache, vertigo, loss of consciousness, or change in strength/ sensation. ENDOCRINE: No increased thirst. No abnormal weight change HEMATOLOGIC/LYMPHATIC: No anemia, easy bleeding, or history of blood clots. ALLERGIC/IMMUNOLOGIC: No hives or skin allergy. *Physical Exam - Vital Signs Last Vital Signs Temp Pulse Resp BP Pulse Ox 98.0 F 90 16 128/77 94 L 02/05/19 23:20 02/05/19 23:20 02/05/19 23:20 02/05/19 23:20 02/05/19 23:20 - Physical Exam Comments: 02/06/19 00:02 GENERAL: Awake, alert, and fully oriented, in no acute distress HEAD: No signs of trauma, normocephalic, atraumatic EYES: PERRLA, EOMI, sclera anicteric, conjunctiva clear ENT: Auricles normal inspection, hearing grossly normal, nares patent, oropharynx clear without exudates. Moist mucosa NECK: Normal ROM, supple, no lymphadenopathy, JVD, or masses LUNGS: No distress, speaks full sentences, clear to auscultation bilaterally HEART: Regular rate and rhythm, normal S1 and S2, no murmurs, rubs or gallops, peripheral pulses normal and equal bilaterally. ABDOMEN: Soft, nontender, normoactive bowel sounds. No guarding, no rebound. No masses EXTREMITIES: Normal inspection, Normal range of motion, no edema. No clubbing or cyanosis. NEUROLOGICAL: Cranial nerves II through XII grossly intact. Normal speech, no focal sensorimotor deficits SKIN: Warm, Dry, normal turgor, no rashes or lesions noted. ED Treatment Course - LABORATORY CBC & Chemistry Diagram: 02/06/19 02:46 02/06/19 02:46 Medical Decision Making - Medical Decision Making 02/06/19 01:43 Mr. Hernandez is a 73 yo male w/ pmh as described who presents for evaluation of constipation likely 2/2 to patient's narcotic use and immobility. Patient had large BM (Non-bloody) upon arrival to ED. Patient will receive FLEET enema in ED and patient will be discharged for further outpatient follow-up. 02/06/19 02:34 Patient reporting he does not feel safe for discharge and is in severe pain. Unable to make outpatient appointments or follow-up. Patient will be admitted for pain control and GI f/u. Patient noted to have LBB on EKG. 02/06/19 03:41 Discussed further care with patient. Patient arranged for follow-up with Jayc[facility] Correia for primary care provider. Patient consented to return home for further outpatient management. Discharging to home. *DC/Admit/Observation/Transfer Diagnosis at time of Disposition: Intractable pain Constipation Qualifiers: Constipation type: unspecified constipation type Qualified Code(s): K59.00 - Constipation, unspecified - Discharge Dispostion Disposition: HOME - Prescriptions Prescriptions: Polyethylene Glycol 3350 [Miralax (For Daily Use) -] 17 gm PO ONCE 30 Days #1 bottle Sodium Phosphate,[place]-Dibasic [Fleet Enema] 133 ml RC PRN PRN #4 enema PRN Reason: Constipation - Referrals - Patient Instructions Printed Discharge Instructions: DI for Constipation Additional Instructions: You were evaluated today in the ER for your constipation. We gave you a FLEET enema which improved your symptoms and sent prescriptions to your pharmacy. Take all medications as proscribed. You will be contacted by Jaycob Correia for outpatient follow-up. Return to ER if any exacerbation of symptoms, fever, chills, or other concerning changes. - Post Discharge Activity
[2019-02-06] MEDS ORDERED: POLYETHYLENE GLYCOL 3350 119 GM BTL PO ONE (01:27)
[2019-02-06] MEDS ORDERED: SODIUM PHOSPHATE/NA BIPHOS 133 ML ENEMA PR ONE (01:27)
[2019-02-06] MEDS ORDERED: DOCUSATE SODIUM 100 MG CAPSULE (FP) PO ONE ×2 (01:27→01:31)
--- NOTE | 2019-02-06 01:46 | PDOC ---
Attending Attestation - Resident Resident Name: Keyshawn Miller - ED Attending Attestation I have performed the following: I have examined & evaluated the patient, The case was reviewed & discussed with the resident, I agree w/resident's findings & plan, Exceptions are as noted - HPI HPI: 02/06/19 01:42 73-year-old male with history of hypertension, hyperlipidemia, chronic back pain and persistent weakness, bedbound on chronic opioids presents with constipation. The patient has had prior issues with constipation likely secondary to his opioids. Patient states that he had hard bowel movements was attempting strain reports of abdominal discomfort. Denies any nausea or vomiting. While the emergency Department here, the patient had one large bowel movement. Denies blood in the stool. Reports some relief. Denies any other symptoms at this time. - Physicial Exam PE: 02/06/19 01:43 GENERAL: Awake, alert, and fully oriented, in no acute distress HEAD: No signs of trauma EYES: EOMI, sclera anicteric, conjunctiva clear ENT: Auricles normal inspection, hearing grossly normal, nares patent NECK: Normal ROM, supple, LUNGS: Breath sounds equal, clear to auscultation bilaterally. No wheezes, and no crackles HEART: Regular rate and rhythm, normal S1 and S2, no murmurs, rubs or gallops ABDOMEN: Soft, nontender, No guarding, no rebound. No masses RECTAL EXAM: nonbloody stool in vault. EXTREMITIES: Normal range of motion, no edema. No clubbing or cyanosis. No cords, erythema, or tenderness NEUROLOGICAL: Cranial nerves II through XII grossly intact. Normal speech SKIN: Warm, Dry, normal turgor, no rashes or lesions noted. - Medical Decision Making 02/06/19 01:43 Vital Signs Temp Pulse Resp BP Pulse Ox 98.0 F 90 16 128/77 94 L 02/05/19 23:20 02/05/19 23:20 02/05/19 23:20 02/05/19 23:20 02/05/19 23:20 The patient's likely constipated secondary to opioid use. The patient will be placed on a rigorous bowel regimen. We'll give Fleet enema as well as Colace and MiraLAX. The patient will need outpatient follow-up. We have had the management supervisor have the internal medicine clinic call the patient to help arrange follow-up as an outpatient.
[2019-02-06] MEDS ORDERED: ACETAMINOPHEN 1000 MG/100 ML VIAL (NON FORMULARY) IVPB ONE (02:34)
[2019-02-06 02:58] LABS: HEMOGLOBIN 13.8 GM/dL (11.7-16.9); MEAN CELL VOLUME 106.1 fl (80-96); WHITE BLOOD COUNT 11.1 K/mm3 (4.0-10.0)
[2019-02-06 03:08] LABS: BASO % 1.4 % (0-2.0); EOS % 2.2 % (0-4.5); HEMATOCRIT 41.9 % (35.4-49); MEAN PLT VOLUME 9.7 fl (7.5-11.1); MONO % 6.4 % (3.8-10.2); PLATELET COUNT 196 K/MM3 (134-434); RBC 3.95 M/mm3 (4.00-5.60); RDW 14.9 % (11.9-15.9)
[2019-02-06 03:26] LABS: ALBUMIN 3.7 g/dl (3.4-5.0); BILIRUBIN,TOTAL 0.5 mg/dL (0.2-1); BLOOD UREA NITROGEN 20.3 mg/dL (7-18); CALCIUM 8.6 mg/dL (8.5-10.1); POTASSIUM 3.5 mmol/L (3.5-5.1); TOT PROT 6.4 g/dl (6.4-8.2)
[2019-02-06 06:06] LABS: ANISOCYTOSIS 0; HELMET CELLS 0; HOWELL-JOLLY BODIES 0; MACROCYTOSIS 0; OVALOCYTE 0; PLATELET ESTIMATE NORMAL; ROULEAU 0; SICKELED CELLS 0; TARGET CELLS 0; TEAR DROP CELLS 0; TOXIC GRANULATION 0
--- NOTE | 2019-02-07 13:29 | EKG ---
Test Reason : Blood Pressure : / mmHG Vent. Rate : 091 BPM Atrial Rate : 091 BPM P-R Int : 174 ms QRS Dur : 126 ms QT Int : 394 ms P-R-T Axes : 044 -67 101 degrees QTc Int : 484 ms SINUS RHYTHM WITH OCCASIONAL PREMATURE VENTRICULAR COMPLEXES LEFT AXIS DEVIATION LEFT BUNDLE BRANCH BLOCK ABNORMAL ECG WHEN COMPARED WITH ECG OF 03-SEP-2018 01:41, PREMATURE VENTRICULAR COMPLEXES ARE NOW PRESENT Confirmed by MD BRADLEY, AMANDA ([id number]) on 02/07/2019 1:28:59 PM Referred By: Confirmed By:AMANDA HUERTA MD
== END 2019-02-06 05:49 | disposition home or self-care (01) ==
LOC: JER 23:19
PROC: 3E033NZ Introduction of Analgesics, Hypnotics, Sedatives into Peripheral Vein, Percutaneous Approach (ICD-10-PCS; principal; 2019-02-05)
DX: K59.00 Constipation, unspecified (principal); I10 Essential (primary) hypertension; E78.5 Hyperlipidemia, unspecified; I48.0 Paroxysmal atrial fibrillation; Z79.01 Long term (current) use of anticoagulants; J44.9 Chronic obstructive pulmonary disease, unspecified; N40.0 Benign prostatic hyperplasia without lower urinary tract symptoms; Z87.19 Personal history of other diseases of the digestive system; F41.8 Other specified anxiety disorders; F31.9 Bipolar disorder, unspecified; Z79.891 Long term (current) use of opiate analgesic
CPT/HCPCS: 36415; 71045-TC-FY; 80053; 85025; 93005; 93010; 99284-25; J0131

== ENCOUNTER 2020-08-22 23:46 | Emergency (ER) | payer OTHER, BC ==
[2020-08-23 00:07] VITALS: TEMP 97.7; BMI 31.7
[2020-08-23] MEDS ORDERED: ACETAMINOPHEN 1000 MG/100 ML VIAL (NON FORMULARY) IVPB ONE (00:38)
[2020-08-23] MEDS ORDERED: ACETAMINOPHEN INJECTION 100 ML IVPB ONE (00:47)
[2020-08-23 01:23] LABS: BASO % 0.4 % (0-2.0); EOS % 1.2 % (0-4.5); HEMATOCRIT 42.7 % (35.4-49); HEMOGLOBIN 14.2 GM/dL (11.7-16.9); MCH 35.6 pg (25.7-33.7); MCHC 33.3 g/dl (32.0-35.9); MEAN CELL VOLUME 107.1 fl (80-96); MEAN PLT VOLUME 10.9 fl (7.5-11.1); MONO % 2.2 % (3.8-10.2); NEUT % 90.2 % (42.8-82.8); PLATELET COUNT 179 K/MM3 (134-434); RBC 3.99 M/mm3 (4.00-5.60); RDW 14.8 % (11.9-15.9); WHITE BLOOD COUNT 11.1 K/mm3 (4.0-10.0)
[2020-08-23 01:35] LABS: CHLORIDE 110 mmol/L (98-107); POTASSIUM 4.3 mmol/L (3.5-5.1); SODIUM 143 mmol/L (136-145)
[2020-08-23 01:38] LABS: ANION GAP 6 MMOL/L (8-16); BLOOD UREA NITROGEN 28.3 mg/dL (7-18); CALCIUM 9.3 mg/dL (8.5-10.1); CO2 27 mmol/L (21-32); GLUCOSE,RANDOM 113 mg/dL (74-106); LIPASE 136 U/L (73-393); MAGNESIUM 1.6 mg/dL (1.8-2.4)
[2020-08-23 01:41] LABS: CREATININE 1.4 mg/dL (0.55-1.3); SGOT/AST 167 U/L (15-37); SGPT/ALT 123 U/L (13-61)
[2020-08-23 01:44] LABS: ALK PHOS 156 U/L (45-117)
[2020-08-23] MEDS ORDERED: LACTATED RINGERS SOLUTION 1000 ML INFUS.BAG IV ONE (01:51)
[2020-08-23] MEDS ORDERED: KETOROLAC TROMETHAMINE 15 MG/ML VIAL IVPUSH ONE (05:22)
[2020-08-23] MEDS ORDERED: KETOROLAC TROMETHAMINE 15 MG/ML VIAL ONE (05:23)
[2020-08-23 06:22] VITALS: BP 160/80; PULSE 90
[2020-08-23 08:02] LABS: ANISOCYTOSIS 1+
[2020-08-23 08:03] LABS: MACROCYTOSIS 2+; PLATELET ESTIMATE ADEQUATE
== END 2020-08-23 06:22 | disposition home or self-care (01) ==
LOC: JER 23:46
PROC: 3E0333Z Introduction of Anti-inflammatory into Peripheral Vein, Percutaneous Approach (ICD-10-PCS; principal; 2020-08-22)
PROC: 3E0333Z Introduction of Anti-inflammatory into Peripheral Vein, Percutaneous Approach (ICD-10-PCS; 2020-08-22)
DX: R10.9 Unspecified abdominal pain (principal)
CPT/HCPCS: 36415; 71045-TC-FY; 74177-TC; 80053; 82550; 83605; 83690; 83735; 84484; 85025; 93005; 93010; 99285-25; J0131

== ENCOUNTER 2020-11-12 14:26 | Observation (INO) | payer OTHER, BC ==
[2020-11-12] MEDS ORDERED: SODIUM PHOSPHATE/NA BIPHOS 133 ML ENEMA PR ONE (16:11)
[2020-11-12] MEDS ORDERED: ACETAMINOPHEN 1000 MG/100 ML VIAL (NON FORMULARY) IVPB ONE (16:14)
[2020-11-12 17:06] LABS: CHLORIDE 115 mmol/L (98-107); SODIUM 141 mmol/L (136-145)
[2020-11-12 17:07] LABS: CALCIUM 8.8 mg/dL (8.5-10.1)
[2020-11-12 17:08] LABS: ALBUMIN 3.8 g/dl (3.4-5.0); ANION GAP 6 MMOL/L (8-16); BLOOD UREA NITROGEN 25.4 mg/dL (7-18); CO2 20 mmol/L (21-32); GLUCOSE,RANDOM 115 mg/dL (74-106)
[2020-11-12 17:11] LABS: CREATININE 1.3 mg/dL (0.55-1.3); SGOT/AST 61 U/L (15-37); SGPT/ALT 53 U/L (13-61)
[2020-11-12 17:13] LABS: BILIRUBIN,TOTAL 0.3 mg/dL (0.2-1); TOT PROT 6.9 g/dl (6.4-8.2)
[2020-11-12 17:15] LABS: ALK PHOS 74 U/L (45-117)
[2020-11-12] MEDS ORDERED: ACETAMINOPHEN INJECTION 100 ML IVPB ONE (17:30)
[2020-11-12 17:38] LABS: BASO % 0.6 % (0-2.0); EOS % 1.1 % (0-4.5); HEMATOCRIT 38.9 % (35.4-49); LYMPH % 11.4 % (8-40); MCH 35.8 pg (25.7-33.7); MCHC 33.3 g/dl (32.0-35.9); MEAN CELL VOLUME 107.5 fl (80-96); MEAN PLT VOLUME 10.5 fl (7.5-11.1); MONO % 5.1 % (3.8-10.2); NEUT % 81.8 % (42.8-82.8); PLATELET COUNT 180 K/MM3 (134-434); RBC 3.62 M/mm3 (4.00-5.60); WHITE BLOOD COUNT 11.3 K/mm3 (4.0-10.0)
[2020-11-12 19:08] LABS: ANISOCYTOSIS 1+; MACROCYTOSIS 2+; PLATELET ESTIMATE NORMAL
[2020-11-12] MEDS ORDERED: LACTULOSE 20 GM/30 ML UDC (FOR ORAL USE ONLY) PO ONE (19:22)
[2020-11-12] MEDS ORDERED: LACTULOSE 20 GM/30 ML UDC (FOR ORAL USE ONLY) ONE (20:25)
[2020-11-13] MEDS ORDERED: SODIUM CHLORIDE 0.9% 500 ML INFUS.BAG IV ONE (00:29)
[2020-11-13] MEDS ORDERED: LIDOCAINE HCL 5% TOP OINTMENT 50 GM TUBE NR ONE (04:26)
[2020-11-13 07:38] LABS: BASO % 0.6 % (0-2.0); EOS % 5.2 % (0-4.5); HEMATOCRIT 37.3 % (35.4-49); HEMOGLOBIN 12.8 GM/dL (11.7-16.9); LYMPH % 24.6 % (8-40); MCH 36.6 pg (25.7-33.7); MCHC 34.3 g/dl (32.0-35.9); MEAN CELL VOLUME 106.7 fl (80-96); MONO % 5.3 % (3.8-10.2); NEUT % 64.3 % (42.8-82.8); PLATELET COUNT 169 K/MM3 (134-434); WHITE BLOOD COUNT 10.8 K/mm3 (4.0-10.0)
[2020-11-13 07:57] LABS: ALBUMIN 3.6 g/dl (3.4-5.0); BLOOD UREA NITROGEN 21.1 mg/dL (7-18)
[2020-11-13 07:59] LABS: BILIRUBIN,TOTAL 0.5 mg/dL (0.2-1); CALCIUM 8.1 mg/dL (8.5-10.1)
[2020-11-13 08:00] LABS: CREATININE 1.1 mg/dL (0.55-1.3); PHOSPHOROUS 2.7 mg/dL (2.5-4.9)
[2020-11-13] MEDS ORDERED: MINERAL OIL ENEMA 133 ML ENEMA RC ONE (08:17)
[2020-11-13] MEDS ORDERED: LISINOPRIL 20 MG TABLET ONE (10:57)
[2020-11-13] MEDS ORDERED: DOCUSATE SODIUM 100 MG CAPSULE (FP) PO ONE (10:57)
[2020-11-13] MEDS ORDERED: ENOXAPARIN NA (PORCINE) 40 MG/0.4 ML DISP.SYRIN SQ ONE (10:58)
[2020-11-13] MEDS ORDERED: DULoxetine HCL 30 MG CAPSULE.DR PO ONE (10:58)
[2020-11-13] MEDS ORDERED: PANTOPRAZOLE SODIUM 40 MG VIAL ONE (10:58)
[2020-11-13] MEDS ORDERED: PT OWN MED DRAWER 7, Y5N ONE (10:59)
[2020-11-13] MEDS: POLYETHYLENE GLYCOL 3350 119 GM BTL PO SCH (11:14)
[2020-11-13] MEDS: PANTOPRAZOLE 40 MG TABLET PO SCH (11:14)
[2020-11-13] MEDS: DULoxetine HCL 30 MG CAPSULE.DR PO SCH (11:14)
[2020-11-13] MEDS: LISINOPRIL 20 MG TABLET PO SCH ×2 (11:14→21:09)
[2020-11-13] MEDS: ENOXAPARIN NA (PORCINE) 40 MG/0.4 ML DISP.SYRIN SQ SCH (11:14)
[2020-11-13] MEDS: DOCUSATE SODIUM 100 MG CAPSULE (FP) PO SCH ×2 (11:14→21:09)
[2020-11-13] MEDS ORDERED: ACETAMINOPHEN INJECTION 100 ML IVPB ONE (15:11)
[2020-11-13] MEDS: SENNOSIDES 8.6MG TABLET (FP) PO SCH ×2 (22:50→23:06)
[2020-11-14] MEDS: ACETAMINOPHEN 1000 MG/100 ML VIAL (NON FORMULARY) IVPB PRN ×3 (00:05→17:08)
[2020-11-14 03:19] VITALS: BMI 23.4
[2020-11-14] MEDS: LISINOPRIL 20 MG TABLET PO SCH ×2 (09:00→21:37)
[2020-11-14] MEDS: PANTOPRAZOLE 40 MG TABLET PO SCH (09:00)
[2020-11-14] MEDS: ENOXAPARIN NA (PORCINE) 40 MG/0.4 ML DISP.SYRIN SQ SCH (09:00)
[2020-11-14] MEDS: SENNOSIDES 8.6MG TABLET (FP) PO SCH ×2 (09:02→21:37)
[2020-11-14] MEDS: POLYETHYLENE GLYCOL 3350 119 GM BTL PO SCH ×2 (09:02→21:38)
[2020-11-14] MEDS: DOCUSATE SODIUM 100 MG CAPSULE (FP) PO SCH ×2 (09:02→21:37)
[2020-11-14 09:58] LABS: BASO % 0.7 % (0-2.0); EOS % 6.4 % (0-4.5); HEMATOCRIT 36.6 % (35.4-49); HEMOGLOBIN 12.5 GM/dL (11.7-16.9); LYMPH % 31.7 % (8-40); MCH 36.6 pg (25.7-33.7); MCHC 34.2 g/dl (32.0-35.9); MEAN CELL VOLUME 106.9 fl (80-96); MEAN PLT VOLUME 10.3 fl (7.5-11.1); MONO % 6.9 % (3.8-10.2); NEUT % 54.3 % (42.8-82.8); PLATELET COUNT 154 K/MM3 (134-434); RBC 3.43 M/mm3 (4.00-5.60); RDW 14.9 % (11.9-15.9); WHITE BLOOD COUNT 7.3 K/mm3 (4.0-10.0)
[2020-11-14 10:05] LABS: ALBUMIN 3.6 g/dl (3.4-5.0); BLOOD UREA NITROGEN 17.6 mg/dL (7-18)
[2020-11-14 10:06] LABS: BILIRUBIN,TOTAL 0.7 mg/dL (0.2-1); CALCIUM 8.4 mg/dL (8.5-10.1)
[2020-11-14 10:07] LABS: CREATININE 1.1 mg/dL (0.55-1.3); TOT PROT 6.2 g/dl (6.4-8.2)
[2020-11-14] MEDS ORDERED: PT OWN MED DRAWER 7, Y5N ONE ×2 (10:36→18:13)
[2020-11-14] MEDS ORDERED: MINERAL OIL ENEMA 133 ML ENEMA PR ONE (12:00)
[2020-11-14] MEDS: DULoxetine HCL 30 MG CAPSULE.DR PO SCH (13:06)
[2020-11-14 17:43] LABS: PH,URINE 5.5 (5.0-8.0); URINE APPEARANCE CLOUDY; URINE BILIRUBIN NEGATIVE (NEGATIVE); URINE COLOR YELLOW; URINE GLUCOSE (UA) NEGATIVE (NEGATIVE); URINE KETONE TRACE (NEGATIVE); URINE LEUK ESTERASE NEGATIVE (NEGATIVE); URINE NITRITE NEGATIVE (NEGATIVE); URINE PROTEIN NEGATIVE (NEGATIVE)
[2020-11-14] MEDS: Methylnaltrexone Bromide 12 MG/0.6 ML KIT SQ SCH (21:37)
[2020-11-14] MEDS ORDERED: ACETAMINOPHEN 1000 MG/100 ML VIAL (NON FORMULARY) IVPB ONE (22:50)
[2020-11-15] MEDS ORDERED: LIDOCAINE 5% TOPICAL PATCH TP ONE (02:26)
[2020-11-15] MEDS: POLYETHYLENE GLYCOL 3350 119 GM BTL PO SCH ×2 (06:08→14:13)
[2020-11-15] MEDS ORDERED: amLODIPine BESYLATE 5 MG TABLET (FP) PO ONE (06:45)
[2020-11-15 08:37] LABS: HEMATOCRIT 37.6 % (35.4-49); HEMOGLOBIN 13.1 GM/dL (11.7-16.9); MCH 36.8 pg (25.7-33.7); MCHC 34.7 g/dl (32.0-35.9); MEAN PLT VOLUME 9.7 fl (7.5-11.1); PLATELET COUNT 161 K/MM3 (134-434); RBC 3.55 M/mm3 (4.00-5.60); RDW 15.1 % (11.9-15.9); WHITE BLOOD COUNT 9.4 K/mm3 (4.0-10.0)
[2020-11-15 09:04] LABS: CALCIUM 8.3 mg/dL (8.5-10.1)
[2020-11-15 09:05] LABS: ALBUMIN 3.7 g/dl (3.4-5.0)
[2020-11-15 09:07] LABS: CREATININE 1.2 mg/dL (0.55-1.3)
[2020-11-15 09:09] LABS: BILIRUBIN,TOTAL 1.5 mg/dL (0.2-1)
[2020-11-15 09:11] LABS: TOT PROT 6.3 g/dl (6.4-8.2)
[2020-11-15] MEDS: DOCUSATE SODIUM 100 MG CAPSULE (FP) PO SCH (09:47)
[2020-11-15] MEDS: PANTOPRAZOLE 40 MG TABLET PO SCH (09:47)
[2020-11-15] MEDS: SENNOSIDES 8.6MG TABLET (FP) PO SCH (09:47)
[2020-11-15] MEDS: LISINOPRIL 20 MG TABLET PO SCH (09:47)
[2020-11-15] MEDS: DULoxetine HCL 30 MG CAPSULE.DR PO SCH (09:48)
[2020-11-15] MEDS: ENOXAPARIN NA (PORCINE) 40 MG/0.4 ML DISP.SYRIN SQ SCH (09:48)
[2020-11-15] MEDS: Methylnaltrexone Bromide 12 MG/0.6 ML KIT SQ SCH (11:37)
[2020-11-15 14:36] VITALS: BP 131/78; PULSE 98; TEMP 97.5
[2020-11-15] MEDS ORDERED: TAMSULOSIN HCL 0.4 MG CAP PO ONE (15:28)
[2020-11-15] MEDS ORDERED: LIDOCAINE PATCH REMOVAL MC SCH (22:00)
== END 2020-11-15 17:57 | disposition home or self-care (01) ==
LOC: JER 14:26 → JERBED 11-13 04:24 → INTOOBSV 11-13 04:24 → J5S 11-13 21:02
PROVIDERS: ADMIT Hospitalist; ATTEND Internal Medicine
PROC: 3E033NZ Introduction of Analgesics, Hypnotics, Sedatives into Peripheral Vein, Percutaneous Approach (ICD-10-PCS; principal; 2020-11-13)
PROC: 3E023GC Introduction of Other Therapeutic Substance into Muscle, Percutaneous Approach (ICD-10-PCS; 2020-11-13)
PROC: 3E0337Z Introduction of Electrolytic and Water Balance Substance into Peripheral Vein, Percutaneous Approach (ICD-10-PCS; 2020-11-13)
DX: K56.41 Fecal impaction (principal); F11.20 Opioid dependence, uncomplicated; G82.20 Paraplegia, unspecified; I48.91 Unspecified atrial fibrillation; I10 Essential (primary) hypertension; Z91.010 Allergy to peanuts; Z88.6 Allergy status to analgesic agent; Z88.0 Allergy status to penicillin; Z91.011 Allergy to milk products; Z88.8 Allergy status to other drugs, medicaments and biological substances
CPT/HCPCS: 36415; 74177-TC; 80053; 81003; 82550; 83735; 84100; 84153; 84484; 85025; 85027; 93005; 93010; 96361; 96372; 96374; 96376; 99285-25; C9803; G0378; J0131; Q9967; U0003; U0005

== ENCOUNTER 2021-04-21 14:29 | Inpatient (IN) | payer OTHER, BC ==
[2021-04-21] MEDS ORDERED: SODIUM CHLORIDE 2,177 ML IV ONE (15:13)
[2021-04-21] MEDS ORDERED: ACETAMINOPHEN INJECTION 100 ML IVPB ONE (15:17)
[2021-04-21] MEDS ORDERED: ACETAMINOPHEN 1000 MG/100 ML VIAL (NON FORMULARY) IVPB ONE (15:17)
[2021-04-21] MEDS ORDERED: VANCOMYCIN 1 GM in D5W (PRE-DOCKED) 1,000 MG/250 ML IVPB ONE (15:37)
[2021-04-21] MEDS ORDERED: VANCOMYCIN 1 GRAM (PRE-DOCKED) 1,000 MG/250 ML BAG IVPB ONE (15:41)
[2021-04-21 15:43] LABS: BASO % 0.8 % (0-2.0); EOS % 0.8 % (0-4.5); HEMOGLOBIN 14.8 GM/dL (11.7-16.9); LYMPH % 7.1 % (8-40); MCH 36.4 pg (25.7-33.7); MCHC 33.6 g/dl (32.0-35.9); MEAN CELL VOLUME 108.2 fl (80-96); MEAN PLT VOLUME 9.1 fl (7.5-11.1); MONO % 2.8 % (3.8-10.2); NEUT % 88.5 % (42.8-82.8); PLATELET COUNT 171 10^3/uL (134-434); RBC 4.07 M/mm3 (4.00-5.60); RDW 15.2 % (11.9-15.9); WHITE BLOOD COUNT 12.4 K/mm3 (4.0-10.0)
[2021-04-21 15:47] LABS: URINE APPEARANCE CLOUDY; URINE BILIRUBIN NEGATIVE (NEGATIVE); URINE COLOR YELLOW; URINE GLUCOSE (UA) NEGATIVE (NEGATIVE); URINE KETONE NEGATIVE (NEGATIVE); URINE LEUK ESTERASE TRACE (NEGATIVE); URINE NITRITE NEGATIVE (NEGATIVE); URINE PROTEIN TRACE (NEGATIVE)
[2021-04-21 15:50] LABS: INR 0.99 (0.83-1.09); PROTHROMBIN TIME (PATIENT) 12.2 SEC (9.7-13.0)
[2021-04-21 15:53] LABS: ACTIVATED PTT 30.2 SECONDS (25.2-36.5)
[2021-04-21 15:59] LABS: CHLORIDE 108 mmol/L (98-107); SODIUM 141 mmol/L (136-145)
[2021-04-21 16:01] LABS: ANION GAP 13 MMOL/L (8-16); BLOOD UREA NITROGEN 23.2 mg/dL (7-18); CO2 20 mmol/L (21-32); GLUCOSE,RANDOM 139 mg/dL (74-106)
[2021-04-21 16:04] LABS: CREATININE 1.6 mg/dL (0.55-1.3); SGOT/AST 24 U/L (15-37); SGPT/ALT 32 U/L (13-61)
[2021-04-21 16:06] LABS: BILIRUBIN,TOTAL 0.7 mg/dL (0.2-1); TOT PROT 7.6 g/dl (6.4-8.2)
[2021-04-21 16:07] LABS: ALK PHOS 106 U/L (45-117)
[2021-04-21 16:11] LABS: LACTIC ACID 6.4 mmol/L (0.4-2.0)
[2021-04-21 16:41] LABS: ANISOCYTOSIS 2+; MACROCYTOSIS 2+; PLATELET ESTIMATE NORMAL
[2021-04-21] MEDS ORDERED: CEFEPIME HCL/D5W 1 GM/50 ML BAG IVPB ONE (16:43)
[2021-04-21] MEDS ORDERED: CEFEPIME HCL/D5W 2 GM/50 ML BAG IVPB ONE (16:46)
[2021-04-21] MEDS ORDERED: CEFEPIME 2 GM/100 ML BAG IVPB ONE (17:02)
[2021-04-21] MEDS ORDERED: SODIUM CHLORIDE 0.9% 500 ML INFUS.BAG IV ONE (18:58)
[2021-04-21 19:12] LABS: EPI CELLS 26.8 /uL (0-25.1); URINE WBC 39.3 /uL (0-25.8)
[2021-04-21 19:13] LABS: HYALINE CASTS 3.55 /uL (0-3.1); URINE BACTERIA 34.4 /uL (0-1359)
[2021-04-21 19:54] LABS: LACTIC ACID 3.1 mmol/L (0.4-2.0)
[2021-04-22] MEDS ORDERED: HEPARIN NA (PORCINE) 5,000 UNITS/ML 1ML VIAL ONE (00:14)
[2021-04-22] MEDS: HEPARIN NA (PORCINE) 5,000 UNITS/ML 1ML VIAL SQ SCH ×4 (00:29→21:34)
[2021-04-22] MEDS ORDERED: ACETAMINOPHEN INJECTION 100 ML IVPB ONE (00:31)
[2021-04-22] MEDS: ACETAMINOPHEN 1000 MG/100 ML VIAL (NON FORMULARY) IVPB PRN ×2 (00:37→15:39)
[2021-04-22] MEDS: POLYETHYLENE GLYCOL 3350 119 GM BTL PO SCH ×3 (00:45→13:13)
[2021-04-22] MEDS ORDERED: SODIUM CHLORIDE 1,000 ML IV SCH ×2 (03:30→10:30)
[2021-04-22 08:24] LABS: BASO % 0.6 % (0-2.0); EOS % 3.2 % (0-4.5); HEMATOCRIT 36.3 % (35.4-49); HEMOGLOBIN 12.3 GM/dL (11.7-16.9); LYMPH % 16.9 % (8-40); MCH 36.4 pg (25.7-33.7); MCHC 33.8 g/dl (32.0-35.9); MEAN CELL VOLUME 107.7 fl (80-96); MEAN PLT VOLUME 9.8 fl (7.5-11.1); MONO % 6.3 % (3.8-10.2); PLATELET COUNT 159 10^3/uL (134-434); RBC 3.37 M/mm3 (4.00-5.60); WHITE BLOOD COUNT 11.2 K/mm3 (4.0-10.0)
[2021-04-22 08:47] LABS: BLOOD UREA NITROGEN 17.1 mg/dL (7-18)
[2021-04-22 08:48] LABS: CALCIUM 7.9 mg/dL (8.5-10.1); MAGNESIUM 2.1 mg/dL (1.8-2.4)
[2021-04-22 08:51] LABS: CREATININE 1.2 mg/dL (0.55-1.3); PHOSPHOROUS 3.2 mg/dL (2.5-4.9)
[2021-04-22 08:52] LABS: BILIRUBIN,TOTAL 1.1 mg/dL (0.2-1); TOT PROT 5.8 g/dl (6.4-8.2)
[2021-04-22] MEDS ORDERED: DEXTROSE 5%-WATER 100 ML IVPB ONE ×2 (09:53→17:39)
[2021-04-22] MEDS ORDERED: MEROPENEM 500 MG VIAL (RESTRICTED TO ID) IVPB ONE (09:53)
[2021-04-22] MEDS ORDERED: MEROPENEM 500 MG in DEXTROSE 5%-WATER 100 ML IVPB SCH (10:00)
[2021-04-22] MEDS ORDERED: VANCOMYCIN 1 GM in D5W (PRE-DOCKED) 1,000 MG/250 ML IVPB SCH (10:00)
[2021-04-22] MEDS: PANTOPRAZOLE 40 MG TABLET PO SCH (10:01)
[2021-04-22] MEDS: LISINOPRIL 20 MG TABLET PO SCH ×2 (10:01→21:34)
[2021-04-22] MEDS: SODIUM CHLORIDE 1,000 ML IV SCH (15:32)
[2021-04-22] MEDS ORDERED: MEROPENEM 1 GM VIAL (RESTRICTED TO ID) IVPB ONE (17:39)
[2021-04-22] MEDS: VANCOMYCIN 250 MG/5 ML ORAL SOLUTION PO SCH ×2 (18:00→23:30)
[2021-04-22] MEDS: MEROPENEM 1 GM in DEXTROSE 5%-WATER 100 ML IVPB SCH (18:00)
[2021-04-22] MEDS ORDERED: MEROPENEM 1 GM in DEXTROSE 5%-WATER 100 ML IVPB SCH (18:00)
[2021-04-23] MEDS ORDERED: MEROPENEM 1 GM VIAL (RESTRICTED TO ID) IVPB ONE ×3 (00:25→16:12)
[2021-04-23] MEDS ORDERED: DEXTROSE 5%-WATER 100 ML IVPB ONE ×3 (00:26→16:12)
[2021-04-23] MEDS: MEROPENEM 1 GM in DEXTROSE 5%-WATER 100 ML IVPB SCH ×3 (01:26→18:02)
[2021-04-23] MEDS: SODIUM CHLORIDE 1,000 ML IV SCH ×2 (04:13→18:03)
[2021-04-23] MEDS: HEPARIN NA (PORCINE) 5,000 UNITS/ML 1ML VIAL SQ SCH ×3 (05:45→22:35)
[2021-04-23] MEDS: VANCOMYCIN 250 MG/5 ML ORAL SOLUTION PO SCH ×3 (05:45→18:05)
[2021-04-23 09:30] LABS: HEMATOCRIT 34.2 % (35.4-49); HEMOGLOBIN 11.9 GM/dL (11.7-16.9); MCH 37.1 pg (25.7-33.7); MCHC 34.8 g/dl (32.0-35.9); MEAN CELL VOLUME 106.4 fl (80-96); MEAN PLT VOLUME 9.8 fl (7.5-11.1); PLATELET COUNT 152 10^3/uL (134-434); RBC 3.22 M/mm3 (4.00-5.60); RDW 13.9 % (11.9-15.9); WHITE BLOOD COUNT 7.8 K/mm3 (4.0-10.0)
[2021-04-23 10:20] LABS: CALCIUM 7.9 mg/dL (8.5-10.1)
[2021-04-23 10:21] LABS: BLOOD UREA NITROGEN 10.9 mg/dL (7-18); MAGNESIUM 1.9 mg/dL (1.8-2.4)
[2021-04-23 10:24] LABS: PHOSPHOROUS 2.2 mg/dL (2.5-4.9)
[2021-04-23] MEDS: LISINOPRIL 20 MG TABLET PO SCH ×2 (10:53→22:35)
[2021-04-23] MEDS: PANTOPRAZOLE 40 MG TABLET PO SCH (10:53)
[2021-04-23 16:09] VITALS: BMI 22.9
[2021-04-24] MEDS ORDERED: MEROPENEM 1 GM VIAL (RESTRICTED TO ID) IVPB ONE ×3 (00:37→18:52)
[2021-04-24] MEDS ORDERED: DEXTROSE 5%-WATER 100 ML IVPB ONE ×3 (00:37→18:52)
[2021-04-24] MEDS: VANCOMYCIN 250 MG/5 ML ORAL SOLUTION PO SCH ×5 (01:18→23:11)
[2021-04-24] MEDS: MEROPENEM 1 GM in DEXTROSE 5%-WATER 100 ML IVPB SCH ×3 (01:19→18:55)
[2021-04-24] MEDS ORDERED: ACETAMINOPHEN 325 MG TABLET (FP) PO ONE (02:05)
[2021-04-24] MEDS: MELATONIN 5 MG TABLETS PO PRN ×2 (02:25→21:45)
[2021-04-24] MEDS: HEPARIN NA (PORCINE) 5,000 UNITS/ML 1ML VIAL SQ SCH ×3 (05:47→21:44)
[2021-04-24] MEDS: SODIUM CHLORIDE 1,000 ML IV SCH (08:30)
[2021-04-24] MEDS: TAMSULOSIN HCL 0.4 MG CAP PO SCH (08:30)
[2021-04-24 09:55] LABS: BASO % 0.6 % (0-2.0); EOS % 5.6 % (0-4.5); HEMATOCRIT 34.4 % (35.4-49); HEMOGLOBIN 12.2 GM/dL (11.7-16.9); LYMPH % 22.5 % (8-40); MCH 36.6 pg (25.7-33.7); MCHC 35.3 g/dl (32.0-35.9); MEAN CELL VOLUME 103.5 fl (80-96); MONO % 5.8 % (3.8-10.2); NEUT % 65.5 % (42.8-82.8); PLATELET COUNT 152 10^3/uL (134-434); RBC 3.33 M/mm3 (4.00-5.60); RDW 14.3 % (11.9-15.9); WHITE BLOOD COUNT 6.7 K/mm3 (4.0-10.0)
[2021-04-24] MEDS: LISINOPRIL 20 MG TABLET PO SCH ×2 (10:48→21:45)
[2021-04-24] MEDS: PANTOPRAZOLE 40 MG TABLET PO SCH (10:48)
[2021-04-24] MEDS: oxyCODONE HCL 5 MG TABLET PO PRN ×2 (10:52→15:11)
[2021-04-24 11:00] LABS: ALBUMIN 3.1 g/dl (3.4-5.0); ANION GAP 8 MMOL/L (8-16); BLOOD UREA NITROGEN 7.6 mg/dL (7-18); CALCIUM 8.2 mg/dL (8.5-10.1); CHLORIDE 111 mmol/L (98-107); CO2 21 mmol/L (21-32); GLUCOSE,RANDOM 122 mg/dL (74-106); MAGNESIUM 1.7 mg/dL (1.8-2.4); PHOSPHOROUS 1.8 mg/dL (2.5-4.9); SGOT/AST 13 U/L (15-37); SGPT/ALT 27 U/L (13-61); SODIUM 140 mmol/L (136-145)
[2021-04-24 11:04] LABS: ALK PHOS 70 U/L (45-117); BILIRUBIN,TOTAL 0.4 mg/dL (0.2-1); TOT PROT 5.9 g/dl (6.4-8.2)
[2021-04-24] MEDS ORDERED: MAGNESIUM SULF 50% (8.12 MEQ/2 ML-1 GM VIAL) IVPB ONE ×2 (11:24→12:45)
[2021-04-24] MEDS ORDERED: POTASSIUM CHLORIDE TABS 20 MEQ TABLET.ER (FP) PO ONE (11:30)
[2021-04-24] MEDS ORDERED: D5-LR+20 MEQ KCL - 20 MEQ/1,000 ML INFUS.BAG IV SCH ×2 (12:00→14:59)
[2021-04-24] MEDS: KCL 10 MEQ IVPB 10 MEQ/100 ML INFUS.BAG IVPB SCH ×3 (12:36→16:08)
[2021-04-24] MEDS ORDERED: DEXTROSE 5%-LACTATED RINGERS 1,000 ML with POTASSIUM CHLORIDE 20 MEQ IV SCH (12:51)
[2021-04-24] MEDS ORDERED: POTASSIUM PHOSPHATE 45 MM in SODIUM CHLORIDE 500 ML IVPB ONE (13:15)
[2021-04-24] MEDS: NYSTATIN POWDER 100,000 UNITS/GM - 15 GM TOPICAL POWDER TP SCH (14:15)
[2021-04-24] MEDS: DRONABINOL 2.5 MG CAPSULE PO SCH (14:15)
[2021-04-24] MEDS: CLOTRIMAZOLE 10 MG TROCHE PO SCH ×3 (14:16→21:56)
[2021-04-24] MEDS ORDERED: PT OWN MED DRAWER 7, Y5N ONE ×3 (18:59→23:09)
[2021-04-24 22:15] LABS: BLOOD UREA NITROGEN 7.9 mg/dL (7-18); CALCIUM 7.8 mg/dL (8.5-10.1); MAGNESIUM 2.4 mg/dL (1.8-2.4)
[2021-04-24 22:18] LABS: CREATININE 1.1 mg/dL (0.55-1.3)
[2021-04-25] MEDS ORDERED: MEROPENEM 1 GM VIAL (RESTRICTED TO ID) IVPB ONE ×3 (01:34→17:18)
[2021-04-25] MEDS ORDERED: DEXTROSE 5%-WATER 100 ML IVPB ONE ×3 (01:34→17:18)
[2021-04-25] MEDS: MEROPENEM 1 GM in DEXTROSE 5%-WATER 100 ML IVPB SCH ×3 (01:37→17:34)
[2021-04-25] MEDS: oxyCODONE HCL 5 MG TABLET PO PRN ×2 (04:47→18:33)
[2021-04-25] MEDS: HEPARIN NA (PORCINE) 5,000 UNITS/ML 1ML VIAL SQ SCH ×3 (05:14→22:01)
[2021-04-25] MEDS: VANCOMYCIN 250 MG/5 ML ORAL SOLUTION PO SCH ×3 (05:14→17:34)
[2021-04-25] MEDS: CLOTRIMAZOLE 10 MG TROCHE PO SCH ×5 (05:15→22:01)
[2021-04-25 09:08] LABS: HEMATOCRIT 31.5 % (35.4-49); HEMOGLOBIN 10.9 GM/dL (11.7-16.9); MCH 37.1 pg (25.7-33.7); MCHC 34.5 g/dl (32.0-35.9); MEAN CELL VOLUME 107.6 fl (80-96); MEAN PLT VOLUME 10.1 fl (7.5-11.1); PLATELET COUNT 138 10^3/uL (134-434); RBC 2.93 M/mm3 (4.00-5.60); RDW 14.2 % (11.9-15.9); WHITE BLOOD COUNT 6.6 K/mm3 (4.0-10.0)
[2021-04-25] MEDS: DRONABINOL 2.5 MG CAPSULE PO SCH ×2 (09:12→17:34)
[2021-04-25] MEDS: TAMSULOSIN HCL 0.4 MG CAP PO SCH (09:12)
[2021-04-25 09:40] LABS: BLOOD UREA NITROGEN 6.3 mg/dL (7-18)
[2021-04-25 09:43] LABS: CALCIUM 8.1 mg/dL (8.5-10.1); MAGNESIUM 2.2 mg/dL (1.8-2.4)
[2021-04-25 09:46] LABS: CREATININE 1.2 mg/dL (0.55-1.3); PHOSPHOROUS 2.6 mg/dL (2.5-4.9)
[2021-04-25] MEDS ORDERED: PT OWN MED DRAWER 7, Y5N ONE ×6 (10:25→18:30)
[2021-04-25] MEDS: LISINOPRIL 20 MG TABLET PO SCH ×2 (10:27→22:01)
[2021-04-25] MEDS: NYSTATIN POWDER 100,000 UNITS/GM - 15 GM TOPICAL POWDER TP SCH (10:27)
[2021-04-25] MEDS: PANTOPRAZOLE 40 MG TABLET PO SCH (10:27)
[2021-04-25] MEDS: DOCUSATE SODIUM 100 MG CAPSULE (FP) PO SCH ×2 (12:11→22:01)
[2021-04-25] MEDS ORDERED: SODIUM PHOSPHATE - 30 MM in DEXTROSE 5%-WATER - 500 ML IVPB ONE (13:00)
[2021-04-25] MEDS ORDERED: D5-LR+20 MEQ KCL - 20 MEQ/1,000 ML INFUS.BAG IV SCH (14:00)
[2021-04-25] MEDS: Methylnaltrexone Bromide 12 MG/0.6 ML KIT SQ SCH (14:59)
[2021-04-25] MEDS ORDERED: ACETAMINOPHEN 325 MG TABLET (FP) PO PRN ×2 (15:55→15:58)
[2021-04-25] MEDS: MINERAL OIL/PET HY-PHL TOPICAL OINTMENT 454 GM JAR TP SCH ×2 (16:01→22:02)
[2021-04-25] MEDS ORDERED: MINERAL OIL/PET HY-PHL TOPICAL OINTMENT 454 GM JAR TP SCH (22:00)
[2021-04-25] MEDS: MELATONIN 5 MG TABLETS PO PRN (22:01)
[2021-04-26] MEDS ORDERED: MEROPENEM 1 GM VIAL (RESTRICTED TO ID) IVPB ONE ×2 (00:50→09:40)
[2021-04-26] MEDS ORDERED: DEXTROSE 5%-WATER 100 ML IVPB ONE ×2 (00:51→09:40)
[2021-04-26] MEDS: VANCOMYCIN 250 MG/5 ML ORAL SOLUTION PO SCH ×3 (00:59→11:07)
[2021-04-26] MEDS: MEROPENEM 1 GM in DEXTROSE 5%-WATER 100 ML IVPB SCH ×2 (01:01→09:50)
[2021-04-26] MEDS ORDERED: PT OWN MED DRAWER 7, Y5N ONE ×4 (04:53→14:18)
[2021-04-26] MEDS: CLOTRIMAZOLE 10 MG TROCHE PO SCH ×3 (05:32→14:25)
[2021-04-26] MEDS: HEPARIN NA (PORCINE) 5,000 UNITS/ML 1ML VIAL SQ SCH ×2 (05:32→14:25)
[2021-04-26] MEDS: DRONABINOL 2.5 MG CAPSULE PO SCH (08:22)
[2021-04-26] MEDS: TAMSULOSIN HCL 0.4 MG CAP PO SCH (08:22)
[2021-04-26 08:36] LABS: HEMATOCRIT 30.7 % (35.4-49); HEMOGLOBIN 10.8 GM/dL (11.7-16.9); MCH 37.3 pg (25.7-33.7); MCHC 35.2 g/dl (32.0-35.9); MEAN CELL VOLUME 105.8 fl (80-96); MEAN PLT VOLUME 9.8 fl (7.5-11.1); PLATELET COUNT 140 10^3/uL (134-434); RDW 14.3 % (11.9-15.9); WHITE BLOOD COUNT 5.7 K/mm3 (4.0-10.0)
[2021-04-26 09:16] LABS: BLOOD UREA NITROGEN 6.7 mg/dL (7-18); CALCIUM 8.2 mg/dL (8.5-10.1); MAGNESIUM 2.1 mg/dL (1.8-2.4)
[2021-04-26 09:18] LABS: PHOSPHOROUS 3.9 mg/dL (2.5-4.9)
[2021-04-26 09:19] LABS: CREATININE 1.2 mg/dL (0.55-1.3)
[2021-04-26] MEDS: oxyCODONE HCL 5 MG TABLET PO PRN (09:48)
[2021-04-26] MEDS: PANTOPRAZOLE 40 MG TABLET PO SCH (09:49)
[2021-04-26] MEDS: DOCUSATE SODIUM 100 MG CAPSULE (FP) PO SCH (09:49)
[2021-04-26] MEDS: LISINOPRIL 20 MG TABLET PO SCH (09:49)
[2021-04-26] MEDS: MINERAL OIL/PET HY-PHL TOPICAL OINTMENT 454 GM JAR TP SCH (09:49)
[2021-04-26] MEDS: NYSTATIN POWDER 100,000 UNITS/GM - 15 GM TOPICAL POWDER TP SCH (09:50)
[2021-04-26] MEDS: Methylnaltrexone Bromide 12 MG/0.6 ML KIT SQ SCH (09:59)
[2021-04-26 14:49] VITALS: BP 126/61; PULSE 94; TEMP 98.2
== END 2021-04-26 15:07 | disposition home or self-care (01) | DRG 872 ==
LOC: JER 14:29 → JERBED 18:06 → J8W 04-22 02:44
PROVIDERS: ADMIT Internal Medicine; ATTEND Internal Medicine
DX: A41.9 Sepsis, unspecified organism (principal); N17.9 Acute kidney failure, unspecified; G82.20 Paraplegia, unspecified; E87.2 Acidosis; K57.92 Diverticulitis of intestine, part unspecified, without perforation or abscess without bleeding; J98.11 Atelectasis; A04.72 Enterocolitis due to Clostridium difficile, not specified as recurrent; E46 Unspecified protein-calorie malnutrition; E87.6 Hypokalemia; E83.42 Hypomagnesemia; I10 Essential (primary) hypertension; E86.1 Hypovolemia; K59.00 Constipation, unspecified; N40.0 Benign prostatic hyperplasia without lower urinary tract symptoms; E83.39 Other disorders of phosphorus metabolism; Z68.23 Body mass index [BMI] 23.0-23.9, adult
CPT/HCPCS: 36415; 71045-TC-FY; 71260-TC; 74018-TC-FY; 74177-TC; 80048; 80053; 81003; 82553; 82962; 83036; 83605; 83735; 84100; 84439; 84443; 84481; 84484; 85025; 85027; 85610; 85730; 87040; 87045; 87046; 87086; 87186; 87324; 87449; 93005; 93010; 94010; 97161-GP; 99285-25; C9803; J0131; J1644; U0003; U0005

== ENCOUNTER 2021-11-13 09:21 | Inpatient (IN) | payer OTHER, BC ==
[2021-11-13] MEDS ORDERED: dilTIAZem HCL 50 MG/10 ML - 10 ML VIAL IVPUSH ONE (09:28)
[2021-11-13] MEDS ORDERED: dilTIAZem HCL 125 MG/25 ML - 25 ML VIAL ONE (09:38)
[2021-11-13] MEDS ORDERED: dilTIAZem HCL 30 MG TABLET PO ONE (09:48)
[2021-11-13] MEDS ORDERED: dilTIAZem HCL 30 MG TABLET ONE (10:07)
[2021-11-13 10:44] LABS: INR 0.93 (0.83-1.09); PROTHROMBIN TIME (PATIENT) 10.7 SEC (9.7-13.0)
[2021-11-13 10:46] LABS: ACTIVATED PTT 30.4 SECONDS (25.2-36.5)
[2021-11-13 10:48] LABS: BASO % 0.7 % (0-2.0); EOS % 7.6 % (0-4.5); HEMATOCRIT 43.1 % (35.4-49); HEMOGLOBIN 14.1 GM/dL (11.7-16.9); LYMPH % 38.1 % (8-40); MCH 35.7 pg (25.7-33.7); MCHC 32.7 g/dl (32.0-35.9); MEAN CELL VOLUME 109.2 fl (80-96); MEAN PLT VOLUME 9.7 fl (7.5-11.1); MONO % 5.4 % (3.8-10.2); NEUT % 48.2 % (42.8-82.8); PLATELET COUNT 236 10^3/uL (134-434); RBC 3.95 M/mm3 (4.00-5.60); RDW 14.8 % (11.9-15.9); WHITE BLOOD COUNT 11.2 K/mm3 (4.0-10.0)
[2021-11-13 10:52] LABS: BLOOD UREA NITROGEN 26.4 mg/dL (7-18); CALCIUM 8.9 mg/dL (8.5-10.1); MAGNESIUM 2.4 mg/dL (1.8-2.4)
[2021-11-13 10:53] LABS: ALBUMIN 3.7 g/dl (3.4-5.0)
[2021-11-13 10:55] LABS: CREATININE 1.6 mg/dL (0.55-1.3)
[2021-11-13 10:57] LABS: BILIRUBIN,TOTAL 0.5 mg/dL (0.2-1); TOT PROT 6.8 g/dl (6.4-8.2)
[2021-11-13 12:29] LABS: ANISOCYTOSIS 1+; MACROCYTOSIS 1+
[2021-11-13] MEDS ORDERED: METOPROLOL TARTRATE 5 MG/5 ML VIAL ONE (13:30)
[2021-11-13] MEDS ORDERED: PATIENT'S OWN MEDICATION (NON-FORMULARY) (Oxycodone Hcl/Acetaminophen [Oxycodone-Acetamino PO PRN ×2 (13:35→13:37)
[2021-11-13] MEDS: METOPROLOL TARTRATE 5 MG/5 ML VIAL IVPUSH PRN (13:39)
[2021-11-13] MEDS ORDERED: POLYETHYLENE GLYCOL (HEALTHYLAX) 3350 17 GM PACKET ONE (14:04)
[2021-11-13] MEDS: POLYETHYLENE GLYCOL (HEALTHYLAX) 3350 17 GM PACKET PO SCH ×2 (14:10→23:53)
[2021-11-13] MEDS ORDERED: oxyCODONE HCL 5 MG TABLET ONE (15:57)
[2021-11-13] MEDS: oxyCODONE HCL 5 MG TABLET PO PRN (16:00)
[2021-11-13] MEDS ORDERED: ACETAMINOPHEN 325 MG TABLET (FP) ONE (21:46)
[2021-11-13] MEDS ORDERED: APIXABAN 2.5 MG TABLET PO SCH (22:00)
[2021-11-13] MEDS: ACETAMINOPHEN 325 MG TABLET (FP) PO PRN (22:33)
[2021-11-13] MEDS ORDERED: APIXABAN 2.5 MG TABLET ONE (22:50)
[2021-11-14 06:07] LABS: SARS-CoV-2 NAA Not Detected (Not Detected)
[2021-11-14 07:20] LABS: BASO % 0.8 % (0-2.0); EOS % 6.5 % (0-4.5); HEMATOCRIT 36.7 % (35.4-49); HEMOGLOBIN 12.7 GM/dL (11.7-16.9); MCH 36.9 pg (25.7-33.7); MCHC 34.5 g/dl (32.0-35.9); MEAN CELL VOLUME 106.9 fl (80-96); MEAN PLT VOLUME 9.6 fl (7.5-11.1); MONO % 6.8 % (3.8-10.2); NEUT % 64.9 % (42.8-82.8); PLATELET COUNT 201 10^3/uL (134-434); RBC 3.44 M/mm3 (4.00-5.60); RDW 14.6 % (11.9-15.9); WHITE BLOOD COUNT 8.7 K/mm3 (4.0-10.0)
[2021-11-14 07:36] LABS: CALCIUM 8.6 mg/dL (8.5-10.1)
[2021-11-14 07:37] LABS: BLOOD UREA NITROGEN 28.8 mg/dL (7-18); MAGNESIUM 2.2 mg/dL (1.8-2.4)
[2021-11-14 07:40] LABS: CREATININE 1.6 mg/dL (0.55-1.3); PHOSPHOROUS 3.2 mg/dL (2.5-4.9)
[2021-11-14] MEDS ORDERED: PANTOPRAZOLE 40 MG TABLET ONE (09:29)
[2021-11-14] MEDS ORDERED: APIXABAN 2.5 MG TABLET ONE (09:29)
[2021-11-14] MEDS ORDERED: oxyCODONE HCL 5 MG TABLET ONE (09:29)
[2021-11-14] MEDS ORDERED: TAMSULOSIN HCL 0.4 MG CAP ONE (09:29)
[2021-11-14] MEDS: TAMSULOSIN HCL 0.4 MG CAP PO SCH (09:30)
[2021-11-14] MEDS ORDERED: APIXABAN 2.5 MG TABLET PO SCH (09:57)
[2021-11-14] MEDS: oxyCODONE HCL 5 MG TABLET PO PRN ×2 (10:03→23:24)
[2021-11-14] MEDS: PANTOPRAZOLE 40 MG TABLET PO SCH (10:18)
[2021-11-14] MEDS: POLYETHYLENE GLYCOL (HEALTHYLAX) 3350 17 GM PACKET PO SCH ×2 (10:18→23:24)
[2021-11-14] MEDS ORDERED: METOPROLOL TARTRATE 5 MG/5 ML VIAL ONE ×2 (15:03→22:35)
[2021-11-14] MEDS: METOPROLOL TARTRATE 5 MG/5 ML VIAL IVPUSH PRN ×2 (15:07→22:40)
[2021-11-14] MEDS ORDERED: ACETAMINOPHEN 325 MG TABLET (FP) ONE (17:50)
[2021-11-14] MEDS: APIXABAN 5 MG TABLET PO SCH (23:24)
[2021-11-15] MEDS: LACTATED RINGERS SOLUTION 1,000 ML/1,000 ML INFUS.BAG IV SCH ×2 (01:00→21:11)
[2021-11-15 01:14] VITALS: BMI 25.1
[2021-11-15] MEDS: oxyCODONE HCL 5 MG TABLET PO PRN ×2 (08:42→20:43)
[2021-11-15] MEDS: APIXABAN 5 MG TABLET PO SCH ×4 (08:42→21:11)
[2021-11-15] MEDS: POLYETHYLENE GLYCOL (HEALTHYLAX) 3350 17 GM PACKET PO SCH ×3 (08:42→21:09)
[2021-11-15] MEDS: TAMSULOSIN HCL 0.4 MG CAP PO SCH (08:42)
[2021-11-15] MEDS: PANTOPRAZOLE 40 MG TABLET PO SCH ×2 (08:42→10:04)
[2021-11-15] MEDS: METOPROLOL TARTRATE 5 MG/5 ML VIAL IVPUSH PRN (08:45)
[2021-11-15] MEDS ORDERED: METOPROLOL TARTRATE 50 MG TABLET (FP) PO SCH (10:00)
[2021-11-15 12:18] LABS: BASO % 0.9 % (0-2.0); EOS % 4.4 % (0-4.5); HEMATOCRIT 34.8 % (35.4-49); HEMOGLOBIN 11.8 GM/dL (11.7-16.9); LYMPH % 18.6 % (8-40); MCH 36.7 pg (25.7-33.7); MCHC 33.9 g/dl (32.0-35.9); MEAN CELL VOLUME 108.4 fl (80-96); MEAN PLT VOLUME 9.7 fl (7.5-11.1); MONO % 6.3 % (3.8-10.2); NEUT % 69.8 % (42.8-82.8); PLATELET COUNT 184 10^3/uL (134-434); RBC 3.21 M/mm3 (4.00-5.60); RDW 14.8 % (11.9-15.9); WHITE BLOOD COUNT 8.1 K/mm3 (4.0-10.0)
[2021-11-15 12:41] LABS: CALCIUM 8.2 mg/dL (8.5-10.1)
[2021-11-15 12:42] LABS: BLOOD UREA NITROGEN 34.9 mg/dL (7-18)
[2021-11-15 12:45] LABS: CREATININE 1.5 mg/dL (0.55-1.3)
[2021-11-15] MEDS: ACETAMINOPHEN 325 MG TABLET (FP) PO PRN (20:44)
[2021-11-16] MEDS: APIXABAN 5 MG TABLET PO SCH ×2 (09:29→21:01)
[2021-11-16] MEDS: TAMSULOSIN HCL 0.4 MG CAP PO SCH (09:29)
[2021-11-16] MEDS: PANTOPRAZOLE 40 MG TABLET PO SCH (09:29)
[2021-11-16] MEDS: POLYETHYLENE GLYCOL (HEALTHYLAX) 3350 17 GM PACKET PO SCH ×2 (09:31→21:38)
[2021-11-16] MEDS: MULTIVITAMINS (DAILY MVI) TABLET (FP) PO SCH (09:35)
[2021-11-16 12:31] LABS: BASO % 1.1 % (0-2.0); EOS % 6.7 % (0-4.5); HEMATOCRIT 36.4 % (35.4-49); HEMOGLOBIN 12.1 GM/dL (11.7-16.9); LYMPH % 21.3 % (8-40); MCHC 33.2 g/dl (32.0-35.9); MEAN CELL VOLUME 108.5 fl (80-96); MEAN PLT VOLUME 9.3 fl (7.5-11.1); MONO % 6.1 % (3.8-10.2); NEUT % 64.8 % (42.8-82.8); PLATELET COUNT 176 10^3/uL (134-434); RBC 3.35 M/mm3 (4.00-5.60); RDW 14.5 % (11.9-15.9); WHITE BLOOD COUNT 9.1 K/mm3 (4.0-10.0)
[2021-11-16 12:52] LABS: BLOOD UREA NITROGEN 36.7 mg/dL (7-18); CALCIUM 8.4 mg/dL (8.5-10.1)
[2021-11-16 12:56] LABS: CREATININE 1.5 mg/dL (0.55-1.3)
[2021-11-16 13:16] LABS: ANISOCYTOSIS 2+; MACROCYTOSIS 2+
[2021-11-16] MEDS: oxyCODONE HCL 5 MG TABLET PO PRN (18:39)
[2021-11-16] MEDS: ACETAMINOPHEN 325 MG TABLET (FP) PO PRN (18:41)
[2021-11-17] MEDS: ACETAMINOPHEN 325 MG TABLET (FP) PO PRN ×2 (02:32→14:51)
[2021-11-17] MEDS: oxyCODONE HCL 5 MG TABLET PO PRN ×2 (06:32→17:31)
[2021-11-17 07:59] LABS: BASO % 0.6 % (0-2.0); EOS % 6.9 % (0-4.5); HEMATOCRIT 35.7 % (35.4-49); HEMOGLOBIN 12.3 GM/dL (11.7-16.9); LYMPH % 18.7 % (8-40); MCHC 34.5 g/dl (32.0-35.9); MEAN CELL VOLUME 107.4 fl (80-96); MEAN PLT VOLUME 9.8 fl (7.5-11.1); MONO % 7.2 % (3.8-10.2); NEUT % 66.6 % (42.8-82.8); PLATELET COUNT 177 10^3/uL (134-434); RBC 3.32 M/mm3 (4.00-5.60); RDW 14.6 % (11.9-15.9)
[2021-11-17 08:13] LABS: CALCIUM 8.8 mg/dL (8.5-10.1)
[2021-11-17 08:17] LABS: CREATININE 1.5 mg/dL (0.55-1.3)
[2021-11-17] MEDS: MULTIVITAMINS (DAILY MVI) TABLET (FP) PO SCH (10:47)
[2021-11-17] MEDS: PANTOPRAZOLE 40 MG TABLET PO SCH (10:47)
[2021-11-17] MEDS: APIXABAN 5 MG TABLET PO SCH ×2 (10:47→21:47)
[2021-11-17] MEDS: POLYETHYLENE GLYCOL (HEALTHYLAX) 3350 17 GM PACKET PO SCH ×2 (10:48→21:47)
[2021-11-17] MEDS: TAMSULOSIN HCL 0.4 MG CAP PO SCH (10:48)
[2021-11-18] MEDS: oxyCODONE HCL 5 MG TABLET PO PRN ×3 (06:12→18:44)
[2021-11-18] MEDS: ACETAMINOPHEN 325 MG TABLET (FP) PO PRN ×2 (06:13→17:58)
[2021-11-18 08:03] LABS: BLOOD UREA NITROGEN 38.3 mg/dL (7-18)
[2021-11-18 08:04] LABS: CALCIUM 8.5 mg/dL (8.5-10.1)
[2021-11-18 08:06] LABS: CREATININE 1.5 mg/dL (0.55-1.3)
[2021-11-18] MEDS: PANTOPRAZOLE 40 MG TABLET PO SCH (10:37)
[2021-11-18] MEDS: APIXABAN 5 MG TABLET PO SCH ×2 (10:38→21:46)
[2021-11-18] MEDS: TAMSULOSIN HCL 0.4 MG CAP PO SCH (10:38)
[2021-11-18] MEDS: MULTIVITAMINS (DAILY MVI) TABLET (FP) PO SCH (10:38)
[2021-11-18] MEDS: POLYETHYLENE GLYCOL (HEALTHYLAX) 3350 17 GM PACKET PO SCH ×2 (10:38→21:46)
[2021-11-18] MEDS: METOPROLOL SUCCINATE 100 MG, METOPROLOL SUCCINATE 25 MG PO SCH ×2 (11:30→21:46)
[2021-11-18] MEDS ORDERED: metoPROLOL SUCCINATE 25 MG TAB.SR.24H (FP) ONE ×2 (11:45→20:49)
[2021-11-18] MEDS: METOPROLOL TARTRATE 5 MG/5 ML VIAL IVPUSH PRN (13:19)
[2021-11-19] MEDS: oxyCODONE HCL 5 MG TABLET PO PRN ×3 (05:51→20:58)
[2021-11-19] MEDS: ACETAMINOPHEN 325 MG TABLET (FP) PO PRN ×2 (05:52→20:58)
[2021-11-19] MEDS: TAMSULOSIN HCL 0.4 MG CAP PO SCH (09:00)
[2021-11-19] MEDS ORDERED: metoPROLOL SUCCINATE 25 MG TAB.SR.24H (FP) ONE ×2 (09:50→20:46)
[2021-11-19] MEDS: APIXABAN 5 MG TABLET PO SCH ×2 (10:00→21:01)
[2021-11-19] MEDS: POLYETHYLENE GLYCOL (HEALTHYLAX) 3350 17 GM PACKET PO SCH ×2 (10:00→21:03)
[2021-11-19] MEDS: PANTOPRAZOLE 40 MG TABLET PO SCH (10:00)
[2021-11-19] MEDS: MULTIVITAMINS (DAILY MVI) TABLET (FP) PO SCH (10:00)
[2021-11-19] MEDS: METOPROLOL SUCCINATE 100 MG, METOPROLOL SUCCINATE 25 MG PO SCH ×2 (10:00→21:01)
[2021-11-19] MEDS: DIGOXIN 0.125 MG TABLET PO SCH (13:43)
[2021-11-20] MEDS: oxyCODONE HCL 5 MG TABLET PO PRN ×2 (05:38→18:03)
[2021-11-20 07:19] LABS: BASO % 0.9 % (0-2.0); EOS % 6.7 % (0-4.5); HEMATOCRIT 36.5 % (35.4-49); HEMOGLOBIN 12.3 GM/dL (11.7-16.9); LYMPH % 22.1 % (8-40); MCH 36.6 pg (25.7-33.7); MCHC 33.8 g/dl (32.0-35.9); MEAN CELL VOLUME 108.3 fl (80-96); MONO % 7.2 % (3.8-10.2); NEUT % 63.1 % (42.8-82.8); PLATELET COUNT 185 10^3/uL (134-434); RBC 3.37 M/mm3 (4.00-5.60); RDW 15.1 % (11.9-15.9); WHITE BLOOD COUNT 8.2 K/mm3 (4.0-10.0)
[2021-11-20 07:46] LABS: CALCIUM 8.7 mg/dL (8.5-10.1)
[2021-11-20 07:47] LABS: BLOOD UREA NITROGEN 35.9 mg/dL (7-18)
[2021-11-20 07:50] LABS: CREATININE 1.5 mg/dL (0.55-1.3)
[2021-11-20 09:59] LABS: ANISOCYTOSIS 2+; MACROCYTOSIS 2+
[2021-11-20] MEDS: SODIUM CHLORIDE 1,000 ML IV SCH (10:00)
[2021-11-20] MEDS ORDERED: metoPROLOL SUCCINATE 25 MG TAB.SR.24H (FP) ONE ×2 (10:42→20:27)
[2021-11-20] MEDS: DIGOXIN 0.125 MG TABLET PO SCH (11:05)
[2021-11-20] MEDS: TAMSULOSIN HCL 0.4 MG CAP PO SCH (11:05)
[2021-11-20] MEDS: METOPROLOL SUCCINATE 100 MG, METOPROLOL SUCCINATE 25 MG PO SCH ×2 (11:05→21:07)
[2021-11-20] MEDS: MULTIVITAMINS (DAILY MVI) TABLET (FP) PO SCH (11:05)
[2021-11-20] MEDS: PANTOPRAZOLE 40 MG TABLET PO SCH (11:05)
[2021-11-20] MEDS: APIXABAN 5 MG TABLET PO SCH ×2 (11:05→21:08)
[2021-11-20] MEDS: POLYETHYLENE GLYCOL (HEALTHYLAX) 3350 17 GM PACKET PO SCH ×2 (11:13→21:08)
[2021-11-20] MEDS: ACETAMINOPHEN 325 MG TABLET (FP) PO PRN (18:04)
[2021-11-21] MEDS: SODIUM CHLORIDE 1,000 ML IV SCH ×2 (00:45→10:01)
[2021-11-21] MEDS: oxyCODONE HCL 5 MG TABLET PO PRN ×2 (06:05→17:45)
[2021-11-21 07:31] LABS: BASO % 0.7 % (0-2.0); EOS % 4.8 % (0-4.5); HEMATOCRIT 34.4 % (35.4-49); HEMOGLOBIN 11.4 GM/dL (11.7-16.9); LYMPH % 16.1 % (8-40); MCH 35.9 pg (25.7-33.7); MCHC 33.1 g/dl (32.0-35.9); MEAN CELL VOLUME 108.4 fl (80-96); MEAN PLT VOLUME 10.2 fl (7.5-11.1); MONO % 6.9 % (3.8-10.2); NEUT % 71.5 % (42.8-82.8); PLATELET COUNT 182 10^3/uL (134-434); RBC 3.17 M/mm3 (4.00-5.60); RDW 14.5 % (11.9-15.9); WHITE BLOOD COUNT 9.4 K/mm3 (4.0-10.0)
[2021-11-21 07:33] LABS: CALCIUM 8.1 mg/dL (8.5-10.1)
[2021-11-21 07:34] LABS: BLOOD UREA NITROGEN 33.7 mg/dL (7-18)
[2021-11-21 07:37] LABS: CREATININE 1.4 mg/dL (0.55-1.3)
[2021-11-21] MEDS ORDERED: metoPROLOL SUCCINATE 25 MG TAB.SR.24H (FP) ONE ×2 (08:26→20:57)
[2021-11-21] MEDS: TAMSULOSIN HCL 0.4 MG CAP PO SCH (09:00)
[2021-11-21] MEDS: PANTOPRAZOLE 40 MG TABLET PO SCH (09:58)
[2021-11-21] MEDS: MULTIVITAMINS (DAILY MVI) TABLET (FP) PO SCH (09:58)
[2021-11-21] MEDS: APIXABAN 5 MG TABLET PO SCH ×2 (09:58→21:29)
[2021-11-21] MEDS: METOPROLOL SUCCINATE 100 MG, METOPROLOL SUCCINATE 25 MG PO SCH ×2 (09:59→21:29)
[2021-11-21] MEDS: DIGOXIN 0.125 MG TABLET PO SCH (10:00)
[2021-11-21] MEDS: POLYETHYLENE GLYCOL (HEALTHYLAX) 3350 17 GM PACKET PO SCH ×2 (10:00→21:29)
[2021-11-22] MEDS: oxyCODONE HCL 5 MG TABLET PO PRN ×2 (01:25→13:04)
[2021-11-22 07:36] LABS: CALCIUM 8.3 mg/dL (8.5-10.1)
[2021-11-22 07:37] LABS: BLOOD UREA NITROGEN 30.7 mg/dL (7-18)
[2021-11-22 07:40] LABS: CREATININE 1.4 mg/dL (0.55-1.3)
[2021-11-22 07:41] LABS: BASO % 0.5 % (0-2.0); EOS % 6.4 % (0-4.5); HEMATOCRIT 34.3 % (35.4-49); HEMOGLOBIN 11.7 GM/dL (11.7-16.9); MCH 36.8 pg (25.7-33.7); MCHC 34.1 g/dl (32.0-35.9); MEAN PLT VOLUME 10.1 fl (7.5-11.1); MONO % 6.9 % (3.8-10.2); NEUT % 63.2 % (42.8-82.8); PLATELET COUNT 183 10^3/uL (134-434); RBC 3.18 M/mm3 (4.00-5.60); RDW 14.6 % (11.9-15.9); WHITE BLOOD COUNT 8.5 K/mm3 (4.0-10.0)
[2021-11-22] MEDS ORDERED: metoPROLOL SUCCINATE 25 MG TAB.SR.24H (FP) ONE (08:54)
[2021-11-22] MEDS: METOPROLOL SUCCINATE 100 MG, METOPROLOL SUCCINATE 25 MG PO SCH (09:12)
[2021-11-22] MEDS: POLYETHYLENE GLYCOL (HEALTHYLAX) 3350 17 GM PACKET PO SCH (09:13)
[2021-11-22] MEDS: APIXABAN 5 MG TABLET PO SCH (09:13)
[2021-11-22] MEDS: DIGOXIN 0.125 MG TABLET PO SCH (09:13)
[2021-11-22] MEDS: TAMSULOSIN HCL 0.4 MG CAP PO SCH (09:13)
[2021-11-22] MEDS: PANTOPRAZOLE 40 MG TABLET PO SCH (09:13)
[2021-11-22] MEDS: MULTIVITAMINS (DAILY MVI) TABLET (FP) PO SCH (09:13)
[2021-11-22 13:38] VITALS: BP 118/74; PULSE 100; TEMP 97.5
== END 2021-11-22 17:57 | disposition home or self-care (01) | DRG 309 ==
LOC: JER 09:21 → JERBED 09:50 → J4W 11-14 23:06
PROVIDERS: ADMIT Internal Medicine; ATTEND Internal Medicine
DX: I48.91 Unspecified atrial fibrillation (principal); N17.9 Acute kidney failure, unspecified; M54.16 Radiculopathy, lumbar region; F44.4 Conversion disorder with motor symptom or deficit; I44.7 Left bundle-branch block, unspecified; D72.829 Elevated white blood cell count, unspecified; G89.29 Other chronic pain; K21.9 Gastro-esophageal reflux disease without esophagitis; K59.00 Constipation, unspecified; N40.0 Benign prostatic hyperplasia without lower urinary tract symptoms; E78.5 Hyperlipidemia, unspecified; J44.9 Chronic obstructive pulmonary disease, unspecified; K64.9 Unspecified hemorrhoids; K44.9 Diaphragmatic hernia without obstruction or gangrene; M54.50 Low back pain, unspecified; F41.8 Other specified anxiety disorders; I12.9 Hypertensive chronic kidney disease with stage 1 through stage 4 chronic kidney disease, or unspecified chronic kidney disease; N18.9 Chronic kidney disease, unspecified; N28.1 Cyst of kidney, acquired
CPT/HCPCS: 36415; 70450-TC; 71045-TC-FY; 76775-TC; 80048; 80053; 80061; 80162; 82136; 82607; 82746; 83036; 83735; 83880; 83918; 84100; 84443; 84484; 85025; 85610; 85730; 93005; 93010; 93306-TC; 94010; 97162-GP; 99291; C9803-CS; U0003; U0005

== ENCOUNTER 2021-11-24 08:04 | Inpatient (IN) | payer OTHER, BC ==
[2021-11-24] MEDS ORDERED: METOPROLOL TARTRATE 5 MG/5 ML VIAL ONE (08:12)
[2021-11-24] MEDS ORDERED: METOPROLOL TARTRATE 5 MG/5 ML VIAL IVPUSH ONE (08:15)
[2021-11-24] MEDS ORDERED: ACETAMINOPHEN INJECTION 100 ML IVPB ONE (08:16)
[2021-11-24 08:37] LABS: VENOUS BASE EXCESS -4.9 mmol/L (-2-2); VENOUS O2 SATURATION 90.2 % (70-80); VENOUS PCO2 28.6 mmHg (38-52); VENOUS PH 7.422 (7.310-7.410)
[2021-11-24] MEDS ORDERED: metoPROLOL SUCCINATE 25 MG TAB.SR.24H (FP) ONE (08:46)
[2021-11-24 08:56] LABS: BASO % 0.8 % (0-2.0); EOS % 1.2 % (0-4.5); HEMATOCRIT 36.7 % (35.4-49); HEMOGLOBIN 12.4 GM/dL (11.7-16.9); LYMPH % 5.4 % (8-40); MCH 36.3 pg (25.7-33.7); MCHC 33.8 g/dl (32.0-35.9); MEAN CELL VOLUME 107.5 fl (80-96); MEAN PLT VOLUME 9.4 fl (7.5-11.1); MONO % 4.5 % (3.8-10.2); NEUT % 88.1 % (42.8-82.8); PLATELET COUNT 188 10^3/uL (134-434); RBC 3.41 M/mm3 (4.00-5.60); RDW 14.6 % (11.9-15.9); WHITE BLOOD COUNT 11.3 K/mm3 (4.0-10.0)
[2021-11-24 08:59] LABS: CALCIUM 8.1 mg/dL (8.5-10.1)
[2021-11-24 09:00] LABS: ALBUMIN 3.3 g/dl (3.4-5.0); BLOOD UREA NITROGEN 30.6 mg/dL (7-18)
[2021-11-24 09:03] LABS: CREATININE 1.6 mg/dL (0.55-1.3)
[2021-11-24 09:04] LABS: BILIRUBIN,TOTAL 0.5 mg/dL (0.2-1)
[2021-11-24 09:08] LABS: INR 1.58 (0.83-1.09); N-TERMINAL BNP 2959.6 pg/ml (5-450); PROTHROMBIN TIME (PATIENT) 18.2 SEC (9.7-13.0)
[2021-11-24 09:11] LABS: ACTIVATED PTT 33.3 SECONDS (25.2-36.5)
[2021-11-24 09:19] LABS: LACTIC ACID 3.3 mmol/L (0.4-2.0)
[2021-11-24] MEDS ORDERED: LACTATED RINGERS SOLUTION 1000 ML INFUS.BAG IV ONE ×2 (09:27→09:30)
[2021-11-24] MEDS ORDERED: DIGOXIN 0.5 MG/2 ML AMPUL IVPUSH ONE (09:35)
[2021-11-24] MEDS ORDERED: DIGOXIN 0.5 MG/2 ML AMPUL ONE (09:47)
[2021-11-24 09:52] LABS: ANISOCYTOSIS 2+; MACROCYTOSIS 2+
[2021-11-24 10:30] LABS: EPI CELLS 9 /uL (0-25.1); HYALINE CASTS 1 /uL (0-3.1); URINE APPEARANCE CLEAR; URINE BACTERIA 8 /uL (0-1359); URINE BILIRUBIN NEGATIVE (NEGATIVE); URINE COLOR YELLOW; URINE GLUCOSE (UA) NEGATIVE (NEGATIVE); URINE KETONE NEGATIVE (NEGATIVE); URINE LEUK ESTERASE NEGATIVE (NEGATIVE); URINE NITRITE NEGATIVE (NEGATIVE); URINE PROTEIN NEGATIVE (NEGATIVE); URINE RBC 49 /uL (0-23.9); URINE UROBILINOGEN 0.2 mg/dL (0.2-1.0); URINE WBC 11 /uL (0-25.8)
[2021-11-24] MEDS ORDERED: MEROPENEM 1 GM in DEXTROSE 5%-WATER 100 ML IVPB ONE ×2 (10:38→22:00)
[2021-11-24 11:06] LABS: LACTIC ACID 2.2 mmol/L (0.4-2.0)
[2021-11-24] MEDS ORDERED: ASPIRIN 81 MG CHEWABLE TABLETS PO ONE (11:26)
[2021-11-24] MEDS ORDERED: ASPIRIN 81 MG CHEWABLE TABLETS ONE (11:52)
[2021-11-24] MEDS ORDERED: METOPROLOL TARTRATE 25 MG TABLET (FP) PO SCH (12:45)
[2021-11-24] MEDS ORDERED: HEPARIN NA (PORCINE) 5,000 UNITS/ML 1ML VIAL IVPUSH ONE (12:50)
[2021-11-24] MEDS ORDERED: HEPARIN NA (PORCINE) 5,000 UNITS/ML 1ML VIAL IVPUSH PRN (12:50)
[2021-11-24] MEDS ORDERED: HEPARIN INFUSION - 25,000 UNITS/500 ML INFUS.BAG IVPB ONE (13:39)
[2021-11-24] MEDS ORDERED: HEPARIN NA (PORCINE) 5,000 UNITS/ML 1ML VIAL ONE (13:40)
[2021-11-24] MEDS: HEPARIN INFUSION - 25,000 UNITS/500 ML INFUS.BAG IVPB SCH (13:46)
[2021-11-24] MEDS ORDERED: VANCOMYCIN 1 GM in D5W (PRE-DOCKED) 1,000 MG/250 ML IVPB ONE (13:54)
[2021-11-24] MEDS ORDERED: VANCOMYCIN 1 GRAM (PRE-DOCKED) 1,000 MG/250 ML BAG IVPB ONE (14:09)
[2021-11-24] MEDS ORDERED: METOPROLOL TARTRATE 25 MG TABLET (FP) ONE (17:49)
[2021-11-24] MEDS: METOPROLOL TARTRATE 25 MG TABLET (FP) PO SCH (17:53)
[2021-11-24] MEDS ORDERED: MEROPENEM 1 GM VIAL (RESTRICTED TO ID) IVPB ONE (21:37)
[2021-11-25] MEDS: METOPROLOL TARTRATE 25 MG TABLET (FP) PO SCH ×5 (00:06→23:29)
[2021-11-25 07:35] LABS: BASO % 0.7 % (0-2.0); EOS % 7.3 % (0-4.5); HEMATOCRIT 34.1 % (35.4-49); HEMOGLOBIN 11.5 GM/dL (11.7-16.9); LYMPH % 17.9 % (8-40); MCH 36.4 pg (25.7-33.7); MCHC 33.6 g/dl (32.0-35.9); MEAN CELL VOLUME 108.3 fl (80-96); MEAN PLT VOLUME 9.9 fl (7.5-11.1); MONO % 7.7 % (3.8-10.2); NEUT % 66.4 % (42.8-82.8); PLATELET COUNT 192 10^3/uL (134-434); RBC 3.15 M/mm3 (4.00-5.60); RDW 14.8 % (11.9-15.9); WHITE BLOOD COUNT 6.8 K/mm3 (4.0-10.0)
[2021-11-25 08:32] LABS: CALCIUM 8.1 mg/dL (8.5-10.1)
[2021-11-25 08:33] LABS: BLOOD UREA NITROGEN 23.2 mg/dL (7-18)
[2021-11-25 08:36] LABS: CREATININE 1.3 mg/dL (0.55-1.3)
[2021-11-25 08:37] LABS: BILIRUBIN,TOTAL 0.5 mg/dL (0.2-1); TOT PROT 5.6 g/dl (6.4-8.2)
[2021-11-25] MEDS: DIGOXIN 0.125 MG TABLET PO SCH (09:47)
[2021-11-25] MEDS: ASPIRIN 81 MG CHEWABLE TABLETS PO SCH (09:47)
[2021-11-25 12:06] LABS: SARS-CoV-2 NAA Not Detected (Not Detected)
[2021-11-25] MEDS: HEPARIN INFUSION - 25,000 UNITS/500 ML INFUS.BAG IVPB SCH (16:40)
[2021-11-25] MEDS ORDERED: MEROPENEM 1 GM VIAL (RESTRICTED TO ID) IVPB ONE (17:39)
[2021-11-25] MEDS ORDERED: DEXTROSE 5%-WATER 100 ML IVPB ONE (17:39)
[2021-11-25] MEDS: MEROPENEM 1 GM in DEXTROSE 5%-WATER 100 ML IVPB SCH (17:44)
[2021-11-25] MEDS: oxyCODONE HCL 5 MG TABLET PO PRN (23:29)
[2021-11-26] MEDS ORDERED: MEROPENEM 1 GM VIAL (RESTRICTED TO ID) IVPB ONE ×3 (01:34→17:17)
[2021-11-26] MEDS: MEROPENEM 1 GM in DEXTROSE 5%-WATER 100 ML IVPB SCH ×3 (01:35→17:20)
[2021-11-26] MEDS ORDERED: DEXTROSE 5%-WATER 100 ML IVPB ONE ×3 (01:35→17:18)
[2021-11-26] MEDS: METOPROLOL TARTRATE 25 MG TABLET (FP) PO SCH ×3 (06:03→17:20)
[2021-11-26 08:22] LABS: HEMATOCRIT 32.8 % (35.4-49); HEMOGLOBIN 11.4 GM/dL (11.7-16.9); MCH 36.9 pg (25.7-33.7); MCHC 34.6 g/dl (32.0-35.9); MEAN CELL VOLUME 106.6 fl (80-96); MEAN PLT VOLUME 9.6 fl (7.5-11.1); PLATELET COUNT 180 10^3/uL (134-434); RBC 3.08 M/mm3 (4.00-5.60); RDW 14.7 % (11.9-15.9)
[2021-11-26] MEDS: ASPIRIN 81 MG CHEWABLE TABLETS PO SCH (10:05)
[2021-11-26] MEDS: DIGOXIN 0.125 MG TABLET PO SCH (10:05)
[2021-11-26] MEDS: oxyCODONE HCL 5 MG TABLET PO PRN (12:08)
[2021-11-26] MEDS: HEPARIN INFUSION - 25,000 UNITS/500 ML INFUS.BAG IVPB SCH (19:34)
[2021-11-26] MEDS ORDERED: oxyCODONE HCL 5 MG TABLET PO ONE (21:12)
[2021-11-27] MEDS: oxyCODONE HCL 5 MG TABLET PO PRN ×3 (00:35→23:42)
[2021-11-27] MEDS: METOPROLOL TARTRATE 25 MG TABLET (FP) PO SCH ×4 (00:35→17:46)
[2021-11-27] MEDS ORDERED: MEROPENEM 1 GM VIAL (RESTRICTED TO ID) IVPB ONE ×3 (00:37→17:17)
[2021-11-27] MEDS ORDERED: DEXTROSE 5%-WATER 100 ML IVPB ONE ×3 (00:37→17:18)
[2021-11-27] MEDS: MEROPENEM 1 GM in DEXTROSE 5%-WATER 100 ML IVPB SCH ×3 (02:30→17:46)
[2021-11-27 09:22] LABS: BASO % 0.8 % (0-2.0); EOS % 5.4 % (0-4.5); HEMATOCRIT 35.7 % (35.4-49); HEMOGLOBIN 11.9 GM/dL (11.7-16.9); LYMPH % 19.4 % (8-40); MCH 36.1 pg (25.7-33.7); MCHC 33.4 g/dl (32.0-35.9); MEAN CELL VOLUME 108.3 fl (80-96); MEAN PLT VOLUME 9.6 fl (7.5-11.1); MONO % 6.5 % (3.8-10.2); NEUT % 67.9 % (42.8-82.8); PLATELET COUNT 205 10^3/uL (134-434); RDW 14.6 % (11.9-15.9); WHITE BLOOD COUNT 6.8 K/mm3 (4.0-10.0)
[2021-11-27 09:42] LABS: CALCIUM 8.4 mg/dL (8.5-10.1)
[2021-11-27 09:43] LABS: BLOOD UREA NITROGEN 20.7 mg/dL (7-18)
[2021-11-27 09:45] LABS: CREATININE 1.2 mg/dL (0.55-1.3)
[2021-11-27] MEDS: DIGOXIN 0.125 MG TABLET PO SCH (10:44)
[2021-11-27] MEDS: ASPIRIN 81 MG CHEWABLE TABLETS PO SCH (10:46)
[2021-11-27] MEDS: APIXABAN 5 MG TABLET PO SCH (21:43)
[2021-11-28] MEDS: METOPROLOL TARTRATE 25 MG TABLET (FP) PO SCH ×5 (00:15→18:46)
[2021-11-28] MEDS ORDERED: MEROPENEM 1 GM VIAL (RESTRICTED TO ID) IVPB ONE ×3 (01:46→18:28)
[2021-11-28] MEDS ORDERED: DEXTROSE 5%-WATER 100 ML IVPB ONE ×3 (01:46→18:29)
[2021-11-28] MEDS: MEROPENEM 1 GM in DEXTROSE 5%-WATER 100 ML IVPB SCH ×3 (01:55→18:46)
[2021-11-28 07:39] LABS: EOS % 5.4 % (0-4.5); HEMATOCRIT 35.3 % (35.4-49); HEMOGLOBIN 12.4 GM/dL (11.7-16.9); LYMPH % 26.6 % (8-40); MCH 37.5 pg (25.7-33.7); MEAN PLT VOLUME 9.6 fl (7.5-11.1); MONO % 6.7 % (3.8-10.2); NEUT % 60.3 % (42.8-82.8); PLATELET COUNT 189 10^3/uL (134-434); RDW 14.6 % (11.9-15.9); WHITE BLOOD COUNT 7.1 K/mm3 (4.0-10.0)
[2021-11-28 08:01] LABS: BLOOD UREA NITROGEN 25.9 mg/dL (7-18)
[2021-11-28 08:05] LABS: CREATININE 1.2 mg/dL (0.55-1.3)
[2021-11-28] MEDS ORDERED: oxyCODONE HCL 5 MG TABLET PO ONE (08:40)
[2021-11-28 09:41] LABS: ANISOCYTOSIS 1+; MACROCYTOSIS 2+
[2021-11-28] MEDS ORDERED: REGADENOSON 0.4 MG/5 ML PRE-FILLED SYRINGE IVPUSH ONE ×2 (09:46→10:00)
[2021-11-28 12:15] LABS: HEMATOCRIT 36.7 % (35.4-49); HEMOGLOBIN 12.1 GM/dL (11.7-16.9); MCH 35.5 pg (25.7-33.7); MCHC 33.1 g/dl (32.0-35.9); MEAN CELL VOLUME 107.4 fl (80-96); MEAN PLT VOLUME 9.3 fl (7.5-11.1); PLATELET COUNT 227 10^3/uL (134-434); RBC 3.42 M/mm3 (4.00-5.60); RDW 14.4 % (11.9-15.9); WHITE BLOOD COUNT 8.1 K/mm3 (4.0-10.0)
[2021-11-28] MEDS: ASPIRIN 81 MG CHEWABLE TABLETS PO SCH (15:09)
[2021-11-28] MEDS: DIGOXIN 0.125 MG TABLET PO SCH (15:09)
[2021-11-28] MEDS: APIXABAN 5 MG TABLET PO SCH ×2 (15:16→21:43)
[2021-11-29] MEDS: METOPROLOL TARTRATE 25 MG TABLET (FP) PO SCH ×5 (00:45→23:46)
[2021-11-29] MEDS ORDERED: MEROPENEM 1 GM VIAL (RESTRICTED TO ID) IVPB ONE ×3 (01:21→17:18)
[2021-11-29] MEDS ORDERED: DEXTROSE 5%-WATER 100 ML IVPB ONE ×3 (01:21→17:18)
[2021-11-29] MEDS: MEROPENEM 1 GM in DEXTROSE 5%-WATER 100 ML IVPB SCH ×3 (01:38→17:19)
[2021-11-29 08:10] LABS: WHITE BLOOD COUNT 8.3 K/mm3 (4.0-10.0)
[2021-11-29 08:11] LABS: BASO % 0.9 % (0-2.0); EOS % 4.7 % (0-4.5); HEMATOCRIT 37.6 % (35.4-49); HEMOGLOBIN 12.7 GM/dL (11.7-16.9); LYMPH % 18.1 % (8-40); MCH 36.2 pg (25.7-33.7); MCHC 33.7 g/dl (32.0-35.9); MEAN CELL VOLUME 107.4 fl (80-96); MEAN PLT VOLUME 9.7 fl (7.5-11.1); MONO % 6.4 % (3.8-10.2); NEUT % 69.9 % (42.8-82.8); PLATELET COUNT 245 10^3/uL (134-434)
[2021-11-29 08:16] LABS: BLOOD UREA NITROGEN 23.9 mg/dL (7-18); CALCIUM 9.5 mg/dL (8.5-10.1)
[2021-11-29 08:20] LABS: CREATININE 1.2 mg/dL (0.55-1.3)
[2021-11-29] MEDS ORDERED: ZINC OXIDE/PANTHENOL/VITAMIN E 56 GM TUBE TP PRN ×2 (08:31→19:14)
[2021-11-29] MEDS: APIXABAN 5 MG TABLET PO SCH ×2 (10:02→22:10)
[2021-11-29] MEDS: ASPIRIN 81 MG CHEWABLE TABLETS PO SCH (10:02)
[2021-11-29] MEDS: DIGOXIN 0.125 MG TABLET PO SCH (10:02)
[2021-11-29] MEDS: oxyCODONE HCL 5 MG TABLET PO PRN ×2 (10:02→22:43)
[2021-11-29] MEDS ORDERED: FUROSEMIDE 40 MG/4 ML INJECTABLE VIAL IVPUSH ONE (16:49)
[2021-11-30] MEDS ORDERED: DEXTROSE 5%-WATER 100 ML IVPB ONE ×2 (00:53→08:56)
[2021-11-30] MEDS ORDERED: MEROPENEM 1 GM VIAL (RESTRICTED TO ID) IVPB ONE ×2 (00:53→08:56)
[2021-11-30] MEDS: MEROPENEM 1 GM in DEXTROSE 5%-WATER 100 ML IVPB SCH ×2 (02:04→09:13)
[2021-11-30] MEDS: METOPROLOL TARTRATE 25 MG TABLET (FP) PO SCH ×3 (06:11→17:28)
[2021-11-30] MEDS ORDERED: FUROSEMIDE 40 MG/4 ML INJECTABLE VIAL IVPUSH ONE (08:15)
[2021-11-30] MEDS: APIXABAN 5 MG TABLET PO SCH ×2 (09:12→21:05)
[2021-11-30] MEDS ORDERED: ASPIRIN 81 MG CHEWABLE TABLETS PO SCH (10:00)
[2021-11-30] MEDS ORDERED: DIGOXIN 0.125 MG TABLET PO SCH (10:00)
[2021-11-30] MEDS: oxyCODONE HCL 5 MG TABLET PO PRN (10:29)
[2021-11-30 10:47] LABS: EOS % 5.8 % (0-4.5); HEMATOCRIT 38.8 % (35.4-49); HEMOGLOBIN 12.8 GM/dL (11.7-16.9); LYMPH % 19.8 % (8-40); MCH 35.5 pg (25.7-33.7); MEAN CELL VOLUME 107.5 fl (80-96); MEAN PLT VOLUME 9.5 fl (7.5-11.1); MONO % 5.4 % (3.8-10.2); PLATELET COUNT 261 10^3/uL (134-434); RBC 3.61 M/mm3 (4.00-5.60); RDW 14.7 % (11.9-15.9); WHITE BLOOD COUNT 8.3 K/mm3 (4.0-10.0)
[2021-11-30] MEDS: SACUBITRIL/VALSARTAN 24 MG-26 MG TABLET PO SCH ×2 (10:48→21:05)
[2021-11-30 11:33] LABS: CALCIUM 9.6 mg/dL (8.5-10.1); CREATININE 1.4 mg/dL (0.55-1.3)
[2021-11-30 14:21] VITALS: BMI 25.2
[2021-11-30] MEDS: ACETAMINOPHEN 325 MG TABLET (FP) PO PRN ×2 (14:28→21:05)
[2021-12-01] MEDS: METOPROLOL TARTRATE 25 MG TABLET (FP) PO SCH (00:09)
[2021-12-01 01:44] VITALS: BP 119/69; PULSE 91; TEMP 97.3
[2021-12-01] MEDS: oxyCODONE HCL 5 MG TABLET PO PRN (01:55)
== END 2021-12-01 01:56 | disposition home or self-care (01) | DRG 871 ==
LOC: JER 08:04 → JERBED 08:19 → J4S 22:25 → J5S 11-29 18:01
PROVIDERS: ADMIT Internal Medicine; ATTEND Internal Medicine
DX: A41.9 Sepsis, unspecified organism (principal); I21.4 Non-ST elevation (NSTEMI) myocardial infarction; J18.9 Pneumonia, unspecified organism; G82.20 Paraplegia, unspecified; I50.22 Chronic systolic (congestive) heart failure; E87.2 Acidosis; I13.0 Hypertensive heart and chronic kidney disease with heart failure and stage 1 through stage 4 chronic kidney disease, or unspecified chronic kidney disease; I50.20 Unspecified systolic (congestive) heart failure; N17.9 Acute kidney failure, unspecified; I48.91 Unspecified atrial fibrillation; L89.152 Pressure ulcer of sacral region, stage 2; D72.829 Elevated white blood cell count, unspecified; K59.00 Constipation, unspecified; N40.0 Benign prostatic hyperplasia without lower urinary tract symptoms; N18.9 Chronic kidney disease, unspecified; K21.9 Gastro-esophageal reflux disease without esophagitis
CPT/HCPCS: 36415; 71045-TC-FY; 74176-TC; 78452-TC; 80048; 80053; 80162; 81003; 82550; 82553; 82803; 82962; 83605; 83880; 84443; 84484; 85025; 85027; 85610; 85730; 86850; 86900; 86901; 87040; 87086; 93005; 93010; 93017; 93306-TC; 94010; 94761; 97161-GP; 99285-25; A9502; C9803-CS; J1644; J2785; U0003; U0005

== ENCOUNTER 2022-02-02 17:23 | Inpatient (IN) | payer OTHER, BC ==
[2022-02-02] MEDS ORDERED: ACETAMINOPHEN 1000 MG/100 ML BAG IVPB ONE (17:56)
[2022-02-02] MEDS ORDERED: SODIUM CHLORIDE 0.9% 500 ML INFUS.BAG IV ONE (17:57)
[2022-02-02] MEDS ORDERED: ACETAMINOPHEN INJECTION 100 ML IVPB ONE (18:10)
[2022-02-02 18:13] VITALS: BMI 25.1
[2022-02-02] MEDS ORDERED: CEFEPIME HCL/D5W 2 GM/50 ML BAG IVPB ONE (18:34)
[2022-02-02] MEDS ORDERED: VANCOMYCIN 1 GM in D5W (PRE-DOCKED) 1,000 MG/250 ML IVPB ONE (18:35)
[2022-02-02] MEDS ORDERED: VANCOMYCIN 1 GRAM (PRE-DOCKED) 1,000 MG/250 ML BAG IVPB ONE (18:42)
[2022-02-02] MEDS ORDERED: CEFEPIME 2 GM/100 ML BAG IVPB ONE (18:43)
[2022-02-02 18:50] LABS: VENOUS BASE EXCESS -2.9 mmol/L (-2-2); VENOUS O2 SATURATION 92.5 % (70-80); VENOUS PCO2 30.4 mmHg (38-52); VENOUS PH 7.438 (7.310-7.410)
[2022-02-02 18:53] LABS: BASO % 0.5 % (0-2.0); EOS % 1.9 % (0-4.5); HEMATOCRIT 39.9 % (35.4-49); HEMOGLOBIN 13.4 GM/dL (11.7-16.9); LYMPH % 5.2 % (8-40); MCH 36.1 pg (25.7-33.7); MCHC 33.5 g/dl (32.0-35.9); MEAN CELL VOLUME 107.6 fl (80-96); MEAN PLT VOLUME 9.3 fl (7.5-11.1); MONO % 5.9 % (3.8-10.2); NEUT % 86.5 % (42.8-82.8); PLATELET COUNT 219 10^3/uL (134-434); WHITE BLOOD COUNT 15.2 K/mm3 (4.0-10.0)
[2022-02-02 19:00] LABS: INR 1.66 (0.83-1.09); PROTHROMBIN TIME (PATIENT) 19.2 SEC (9.7-13.0)
[2022-02-02] MEDS ORDERED: METOPROLOL TARTRATE 5 MG/5 ML VIAL IVPUSH ONE (19:01)
[2022-02-02 19:03] LABS: ACTIVATED PTT 35.9 SECONDS (25.2-36.5)
[2022-02-02 19:15] LABS: CALCIUM 8.8 mg/dL (8.5-10.1)
[2022-02-02 19:16] LABS: ALBUMIN 3.7 g/dl (3.4-5.0)
[2022-02-02] MEDS ORDERED: METOPROLOL TARTRATE 5 MG/5 ML VIAL ONE (19:16)
[2022-02-02 19:19] LABS: CREATININE 1.5 mg/dL (0.55-1.3)
[2022-02-02 19:20] LABS: TOT PROT 6.6 g/dl (6.4-8.2)
[2022-02-02 19:21] LABS: BILIRUBIN,TOTAL 0.6 mg/dL (0.2-1)
[2022-02-02 19:27] LABS: LACTIC ACID 2.7 mmol/L (0.4-2.0)
[2022-02-02 19:45] LABS: EPI CELLS 20 /uL (0-25.1); HYALINE CASTS 1 /uL (0-3.1); PH,URINE 5.5 (5.0-8.0); URINE APPEARANCE CLEAR; URINE BACTERIA 7 /uL (0-1359); URINE BILIRUBIN NEGATIVE (NEGATIVE); URINE COLOR YELLOW; URINE GLUCOSE (UA) NEGATIVE (NEGATIVE); URINE KETONE NEGATIVE (NEGATIVE); URINE LEUK ESTERASE NEGATIVE (NEGATIVE); URINE NITRITE NEGATIVE (NEGATIVE); URINE PROTEIN TRACE (NEGATIVE); URINE RBC 91 /uL (0-23.9); URINE WBC 27 /uL (0-25.8)
[2022-02-02 20:27] LABS: ANISOCYTOSIS 2+; MACROCYTOSIS 2+
[2022-02-03] MEDS: ACETAMINOPHEN 1000 MG/100 ML BAG IVPB PRN ×2 (02:16→21:54)
[2022-02-03] MEDS ORDERED: PATIENT'S OWN MEDICATION (NON-FORMULARY) (Alendronate Sodium [Alendronate Sodium] 70 MG Ta PO SCH (05:15)
[2022-02-03 08:17] LABS: HEMATOCRIT 38.9 % (35.4-49); MCH 36.3 pg (25.7-33.7); MCHC 33.5 g/dl (32.0-35.9); MEAN CELL VOLUME 108.5 fl (80-96); PLATELET COUNT 224 10^3/uL (134-434); RBC 3.59 M/mm3 (4.00-5.60); RDW 15.8 % (11.9-15.9); WHITE BLOOD COUNT 12.7 K/mm3 (4.0-10.0)
[2022-02-03 08:26] LABS: CALCIUM 8.3 mg/dL (8.5-10.1)
[2022-02-03 08:27] LABS: ALBUMIN 3.4 g/dl (3.4-5.0); BLOOD UREA NITROGEN 21.8 mg/dL (7-18); MAGNESIUM 1.9 mg/dL (1.8-2.4)
[2022-02-03 08:30] LABS: CREATININE 1.2 mg/dL (0.55-1.3); PHOSPHOROUS 3.2 mg/dL (2.5-4.9)
[2022-02-03 08:32] LABS: BILIRUBIN,TOTAL 0.7 mg/dL (0.2-1)
[2022-02-03] MEDS: ACETAMINOPHEN 500 MG TABLET (FP) PO PRN (09:07)
[2022-02-03] MEDS: TAMSULOSIN HCL 0.4 MG CAP PO SCH (09:07)
[2022-02-03] MEDS ORDERED: MEROPENEM 1 GM VIAL (RESTRICTED TO ID) IVPB ONE ×2 (09:31→17:39)
[2022-02-03] MEDS ORDERED: DEXTROSE 5%-WATER 100 ML IVPB ONE ×2 (09:31→17:39)
[2022-02-03] MEDS ORDERED: MEROPENEM 1 GM in DEXTROSE 5%-WATER 100 ML IVPB SCH (10:00)
[2022-02-03] MEDS: SACUBITRIL/VALSARTAN 24 MG-26 MG TABLET PO SCH ×2 (10:25→21:50)
[2022-02-03] MEDS: PANTOPRAZOLE 40 MG TABLET PO SCH (10:25)
[2022-02-03] MEDS: ASPIRIN COATED 81 MG TABLET.EC PO SCH (10:25)
[2022-02-03] MEDS: APIXABAN 5 MG TABLET PO SCH ×2 (10:25→21:50)
[2022-02-03] MEDS: DIGOXIN 0.125 MG TABLET PO SCH (10:26)
[2022-02-03] MEDS ORDERED: MAGNESIUM SULF 50% (8.12 MEQ/2 ML-1 GM VIAL) IVPB ONE (12:02)
[2022-02-03] MEDS: MEROPENEM 1 GM in DEXTROSE 5%-WATER 100 ML IVPB SCH (17:46)
[2022-02-03] MEDS: oxyCODONE HCL 5 MG TABLET PO PRN (18:27)
[2022-02-04] MEDS ORDERED: MEROPENEM 1 GM VIAL (RESTRICTED TO ID) IVPB ONE ×3 (03:34→17:07)
[2022-02-04] MEDS ORDERED: DEXTROSE 5%-WATER 100 ML IVPB ONE ×2 (03:34→17:07)
[2022-02-04] MEDS: MEROPENEM 1 GM in DEXTROSE 5%-WATER 100 ML IVPB SCH ×3 (03:35→17:09)
[2022-02-04 08:00] LABS: BASO % 0.9 % (0-2.0); EOS % 7.6 % (0-4.5); HEMATOCRIT 35.3 % (35.4-49); LYMPH % 19.3 % (8-40); MCH 36.7 pg (25.7-33.7); MCHC 33.9 g/dl (32.0-35.9); MEAN PLT VOLUME 9.8 fl (7.5-11.1); MONO % 6.3 % (3.8-10.2); NEUT % 65.9 % (42.8-82.8); PLATELET COUNT 194 10^3/uL (134-434); RBC 3.26 M/mm3 (4.00-5.60); RDW 15.9 % (11.9-15.9); WHITE BLOOD COUNT 7.3 K/mm3 (4.0-10.0)
[2022-02-04 08:24] LABS: BLOOD UREA NITROGEN 19.2 mg/dL (7-18); MAGNESIUM 2.1 mg/dL (1.8-2.4)
[2022-02-04 08:27] LABS: PHOSPHOROUS 2.9 mg/dL (2.5-4.9)
[2022-02-04 08:28] LABS: CREATININE 1.1 mg/dL (0.55-1.3)
[2022-02-04] MEDS: oxyCODONE HCL 5 MG TABLET PO PRN (08:31)
[2022-02-04] MEDS: ASPIRIN COATED 81 MG TABLET.EC PO SCH (09:20)
[2022-02-04] MEDS: TAMSULOSIN HCL 0.4 MG CAP PO SCH (09:20)
[2022-02-04] MEDS: PANTOPRAZOLE 40 MG TABLET PO SCH (09:20)
[2022-02-04] MEDS: APIXABAN 5 MG TABLET PO SCH ×2 (09:20→21:25)
[2022-02-04] MEDS: SACUBITRIL/VALSARTAN 24 MG-26 MG TABLET PO SCH ×2 (09:21→21:25)
[2022-02-04] MEDS: DIGOXIN 0.125 MG TABLET PO SCH (09:21)
[2022-02-04] MEDS ORDERED: MEROPENEM 1 GM in DEXTROSE 5%-WATER 100 ML IVPB SCH (10:00)
[2022-02-04] MEDS: ACETAMINOPHEN 500 MG TABLET (FP) PO PRN (14:26)
[2022-02-05] MEDS ORDERED: DEXTROSE 5%-WATER 100 ML IVPB ONE (02:02)
[2022-02-05] MEDS ORDERED: MEROPENEM 1 GM VIAL (RESTRICTED TO ID) IVPB ONE (02:02)
[2022-02-05] MEDS: MEROPENEM 1 GM in DEXTROSE 5%-WATER 100 ML IVPB SCH (02:05)
[2022-02-05] MEDS: oxyCODONE HCL 5 MG TABLET PO PRN ×2 (05:47→21:49)
[2022-02-05] MEDS: APIXABAN 5 MG TABLET PO SCH ×2 (09:15→21:49)
[2022-02-05] MEDS: TAMSULOSIN HCL 0.4 MG CAP PO SCH (09:15)
[2022-02-05] MEDS: ASPIRIN COATED 81 MG TABLET.EC PO SCH (09:16)
[2022-02-05] MEDS: PANTOPRAZOLE 40 MG TABLET PO SCH (09:16)
[2022-02-05] MEDS: SACUBITRIL/VALSARTAN 24 MG-26 MG TABLET PO SCH ×2 (09:16→21:49)
[2022-02-05] MEDS: DIGOXIN 0.125 MG TABLET PO SCH (09:16)
[2022-02-05 11:04] LABS: BASO % 1.1 % (0-2.0); EOS % 8.9 % (0-4.5); HEMOGLOBIN 12.7 GM/dL (11.7-16.9); LYMPH % 28.3 % (8-40); MCHC 34.3 g/dl (32.0-35.9); MEAN CELL VOLUME 107.8 fl (80-96); MONO % 8.7 % (3.8-10.2); PLATELET COUNT 211 10^3/uL (134-434); RBC 3.43 M/mm3 (4.00-5.60); RDW 15.9 % (11.9-15.9); WHITE BLOOD COUNT 6.8 K/mm3 (4.0-10.0)
[2022-02-06] MEDS: ACETAMINOPHEN 500 MG TABLET (FP) PO PRN (06:25)
[2022-02-06 08:21] LABS: BASO % 0.9 % (0-2.0); EOS % 8.2 % (0-4.5); HEMATOCRIT 38.5 % (35.4-49); HEMOGLOBIN 13.1 GM/dL (11.7-16.9); LYMPH % 32.8 % (8-40); MCH 37.1 pg (25.7-33.7); MEAN CELL VOLUME 109.3 fl (80-96); MEAN PLT VOLUME 8.7 fl (7.5-11.1); MONO % 6.6 % (3.8-10.2); NEUT % 51.5 % (42.8-82.8); PLATELET COUNT 209 10^3/uL (134-434); RBC 3.52 M/mm3 (4.00-5.60); RDW 15.7 % (11.9-15.9); WHITE BLOOD COUNT 6.9 K/mm3 (4.0-10.0)
[2022-02-06 08:42] LABS: CALCIUM 8.4 mg/dL (8.5-10.1)
[2022-02-06 08:43] LABS: BLOOD UREA NITROGEN 15.5 mg/dL (7-18); MAGNESIUM 2.3 mg/dL (1.8-2.4)
[2022-02-06 08:46] LABS: CREATININE 1.1 mg/dL (0.55-1.3)
[2022-02-06] MEDS: TAMSULOSIN HCL 0.4 MG CAP PO SCH (09:02)
[2022-02-06 09:21] LABS: ANISOCYTOSIS 2+; MACROCYTOSIS 2+
[2022-02-06] MEDS: SACUBITRIL/VALSARTAN 24 MG-26 MG TABLET PO SCH (10:02)
[2022-02-06] MEDS: ASPIRIN COATED 81 MG TABLET.EC PO SCH (10:02)
[2022-02-06] MEDS: APIXABAN 5 MG TABLET PO SCH (10:02)
[2022-02-06] MEDS: DIGOXIN 0.125 MG TABLET PO SCH (10:02)
[2022-02-06] MEDS: PANTOPRAZOLE 40 MG TABLET PO SCH (10:03)
[2022-02-06] MEDS: oxyCODONE HCL 5 MG TABLET PO PRN (14:12)
[2022-02-06 14:13] VITALS: BP 117/60; PULSE 94; TEMP 98.5
== END 2022-02-06 15:36 | disposition home health service (06) | DRG 683 ==
LOC: JER 17:23 → JERBED 20:35 → J4W 02-03 01:43
PROVIDERS: ADMIT Internal Medicine; ATTEND Internal Medicine
DX: N17.9 Acute kidney failure, unspecified (principal); G82.20 Paraplegia, unspecified; E87.2 Acidosis; N39.0 Urinary tract infection, site not specified; I48.91 Unspecified atrial fibrillation; J44.9 Chronic obstructive pulmonary disease, unspecified; I48.0 Paroxysmal atrial fibrillation; E78.5 Hyperlipidemia, unspecified; M41.9 Scoliosis, unspecified; D72.829 Elevated white blood cell count, unspecified; K58.9 Irritable bowel syndrome, unspecified; I12.9 Hypertensive chronic kidney disease with stage 1 through stage 4 chronic kidney disease, or unspecified chronic kidney disease; N18.30 Chronic kidney disease, stage 3 unspecified; K57.90 Diverticulosis of intestine, part unspecified, without perforation or abscess without bleeding; M54.89 Other dorsalgia; N40.0 Benign prostatic hyperplasia without lower urinary tract symptoms; K64.8 Other hemorrhoids; F41.8 Other specified anxiety disorders; I44.7 Left bundle-branch block, unspecified; M21.372 Foot drop, left foot; M21.371 Foot drop, right foot; K59.03 Drug induced constipation; T40.2X5A Adverse effect of other opioids, initial encounter; R50.9 Fever, unspecified; M54.16 Radiculopathy, lumbar region; N28.1 Cyst of kidney, acquired; Z88.0 Allergy status to penicillin
CPT/HCPCS: 0241U-QW; 36415; 71045-TC-FY; 74176-TC; 76775-TC; 80048; 80053; 81003; 82550; 82553; 82803; 83605; 83735; 84100; 84484; 85025; 85027; 85610; 85730; 86682; 86850; 86900; 86901; 87040; 87086; 93005; 93010; 99285-25

== ENCOUNTER 2022-02-20 22:42 | Inpatient (IN) | payer OTHER, BC ==
[2022-02-21 00:10] LABS: BASO % 1.1 % (0-2.0); EOS % 8.6 % (0-4.5); HEMATOCRIT 40.3 % (35.4-49); HEMOGLOBIN 13.6 GM/dL (11.7-16.9); LYMPH % 19.4 % (8-40); MCH 36.4 pg (25.7-33.7); MCHC 33.6 g/dl (32.0-35.9); MEAN CELL VOLUME 108.1 fl (80-96); MEAN PLT VOLUME 9.6 fl (7.5-11.1); MONO % 6.9 % (3.8-10.2); PLATELET COUNT 240 10^3/uL (134-434); RBC 3.73 M/mm3 (4.00-5.60); RDW 15.6 % (11.9-15.9); VENOUS BASE EXCESS -1.7 mmol/L (-2-2); VENOUS O2 SATURATION 90.7 % (70-80); VENOUS PCO2 39.4 mmHg (38-52); VENOUS PH 7.385 (7.310-7.410); WHITE BLOOD COUNT 6.8 K/mm3 (4.0-10.0)
[2022-02-21 00:19] LABS: INR 1.46 (0.83-1.09); PROTHROMBIN TIME (PATIENT) 16.9 SEC (9.7-13.0)
[2022-02-21 00:22] LABS: ACTIVATED PTT 34.2 SECONDS (25.2-36.5)
[2022-02-21 00:32] LABS: ALBUMIN 3.7 g/dl (3.4-5.0); BLOOD UREA NITROGEN 21.2 mg/dL (7-18); MAGNESIUM 2.2 mg/dL (1.8-2.4)
[2022-02-21 00:35] LABS: CREATININE 1.3 mg/dL (0.55-1.3)
[2022-02-21 00:37] LABS: BILIRUBIN,TOTAL 0.5 mg/dL (0.2-1); TOT PROT 6.8 g/dl (6.4-8.2)
[2022-02-21 03:29] LABS: ANISOCYTOSIS 1+; MACROCYTOSIS 1+
[2022-02-21 04:12] LABS: N-TERMINAL BNP 646.7 pg/ml (5-450)
[2022-02-21] MEDS ORDERED: FUROSEMIDE 40 MG/4 ML INJECTABLE VIAL IVPUSH ONE (05:13)
[2022-02-21] MEDS ORDERED: FUROSEMIDE 40 MG/4 ML INJECTABLE VIAL ONE (05:38)
[2022-02-21] MEDS ORDERED: TAMSULOSIN HCL 0.4 MG CAP ONE (07:32)
[2022-02-21] MEDS ORDERED: TAMSULOSIN HCL 0.4 MG CAP PO SCH (08:30)
[2022-02-21] MEDS ORDERED: PANTOPRAZOLE 40 MG TABLET PO ONE (09:05)
[2022-02-21] MEDS ORDERED: ASPIRIN COATED 81 MG TABLET.EC ONE (09:05)
[2022-02-21] MEDS ORDERED: APIXABAN 5 MG TABLET ONE (09:06)
[2022-02-21] MEDS ORDERED: DIGOXIN 0.125 MG TABLET ONE (09:06)
[2022-02-21] MEDS: DIGOXIN 0.125 MG TABLET PO SCH (09:21)
[2022-02-21] MEDS: PANTOPRAZOLE 40 MG TABLET PO SCH (09:21)
[2022-02-21] MEDS: APIXABAN 5 MG TABLET PO SCH ×2 (09:21→23:44)
[2022-02-21] MEDS: ASPIRIN COATED 81 MG TABLET.EC PO SCH (09:21)
[2022-02-21 09:41] LABS: EOS % 4.7 % (0-4.5); HEMATOCRIT 40.6 % (35.4-49); HEMOGLOBIN 13.7 GM/dL (11.7-16.9); LYMPH % 24.5 % (8-40); MCH 36.3 pg (25.7-33.7); MCHC 33.8 g/dl (32.0-35.9); MEAN CELL VOLUME 107.5 fl (80-96); MEAN PLT VOLUME 9.7 fl (7.5-11.1); MONO % 5.4 % (3.8-10.2); NEUT % 64.4 % (42.8-82.8); PLATELET COUNT 246 10^3/uL (134-434); RBC 3.78 M/mm3 (4.00-5.60); RDW 15.5 % (11.9-15.9); WHITE BLOOD COUNT 10.4 K/mm3 (4.0-10.0)
[2022-02-21 09:48] LABS: ALBUMIN 3.9 g/dl (3.4-5.0); BLOOD UREA NITROGEN 18.6 mg/dL (7-18); MAGNESIUM 2.4 mg/dL (1.8-2.4)
[2022-02-21 09:50] LABS: PHOSPHOROUS 3.1 mg/dL (2.5-4.9)
[2022-02-21 09:51] LABS: CREATININE 1.2 mg/dL (0.55-1.3)
[2022-02-21 09:52] LABS: BILIRUBIN,TOTAL 0.6 mg/dL (0.2-1); TOT PROT 6.8 g/dl (6.4-8.2)
[2022-02-21 11:19] LABS: EPI CELLS 1 /uL (0-25.1); HYALINE CASTS 0 /uL (0-3.1); PH,URINE 5.5 (5.0-8.0); URINE APPEARANCE CLEAR; URINE BACTERIA 2 /uL (0-1359); URINE BILIRUBIN NEGATIVE (NEGATIVE); URINE COLOR YELLOW; URINE GLUCOSE (UA) NEGATIVE (NEGATIVE); URINE KETONE NEGATIVE (NEGATIVE); URINE LEUK ESTERASE NEGATIVE (NEGATIVE); URINE NITRITE NEGATIVE (NEGATIVE); URINE PROTEIN NEGATIVE (NEGATIVE); URINE RBC 19 /uL (0-23.9); URINE UROBILINOGEN 0.2 mg/dL (0.2-1.0); URINE WBC 2 /uL (0-25.8)
[2022-02-21] MEDS ORDERED: ALBUTEROL SO4 2.5/IPRATROPIUM 0.5 INH SOL 3 ML VIAL.NEB. NEB ONE ×2 (11:42→16:58)
[2022-02-21] MEDS ORDERED: FUROSEMIDE 20 MG TABLET (FP) ONE (11:42)
[2022-02-21] MEDS: FUROSEMIDE 20 MG TABLET (FP) PO SCH (11:48)
[2022-02-21] MEDS: ALBUTEROL SO4 2.5/IPRATROPIUM 0.5 INH SOL 3 ML VIAL.NEB. NEB SCH ×3 (11:50→20:04)
[2022-02-21] MEDS: SACUBITRIL/VALSARTAN 24 MG-26 MG TABLET PO SCH (23:44)
[2022-02-21] MEDS: oxyCODONE HCL 5 MG TABLET PO PRN (23:44)
[2022-02-22] MEDS: ALBUTEROL SO4 2.5/IPRATROPIUM 0.5 INH SOL 3 ML VIAL.NEB. NEB SCH ×4 (07:35→20:53)
[2022-02-22] MEDS: TAMSULOSIN HCL 0.4 MG CAP PO SCH (08:32)
[2022-02-22] MEDS ORDERED: ACETAMINOPHEN 1000 MG/100 ML BAG IVPB PRN (09:33)
[2022-02-22] MEDS: PANTOPRAZOLE 40 MG TABLET PO SCH (09:53)
[2022-02-22] MEDS: APIXABAN 5 MG TABLET PO SCH ×2 (09:53→21:50)
[2022-02-22] MEDS: ASPIRIN COATED 81 MG TABLET.EC PO SCH (09:53)
[2022-02-22] MEDS: SACUBITRIL/VALSARTAN 24 MG-26 MG TABLET PO SCH (09:54)
[2022-02-22] MEDS: DIGOXIN 0.125 MG TABLET PO SCH (09:54)
[2022-02-22] MEDS: FUROSEMIDE 20 MG TABLET (FP) PO SCH (09:54)
[2022-02-22 10:43] LABS: HEMATOCRIT 38.9 % (35.4-49); MCH 36.4 pg (25.7-33.7); MCHC 33.3 g/dl (32.0-35.9); MEAN CELL VOLUME 109.2 fl (80-96); MEAN PLT VOLUME 9.8 fl (7.5-11.1); PLATELET COUNT 257 10^3/uL (134-434); RBC 3.57 M/mm3 (4.00-5.60); RDW 16.1 % (11.9-15.9); WHITE BLOOD COUNT 7.7 K/mm3 (4.0-10.0)
[2022-02-22 11:03] LABS: BLOOD UREA NITROGEN 24.3 mg/dL (7-18); MAGNESIUM 2.4 mg/dL (1.8-2.4)
[2022-02-22 11:06] LABS: CREATININE 1.6 mg/dL (0.55-1.3); PHOSPHOROUS 3.8 mg/dL (2.5-4.9)
[2022-02-22 11:09] LABS: LACTIC ACID 3.4 mmol/L (0.4-2.0)
[2022-02-22] MEDS: SODIUM CHLORIDE 1,000 ML IV SCH (13:34)
[2022-02-23] MEDS: SODIUM CHLORIDE 1,000 ML IV SCH (06:35)
[2022-02-23] MEDS: ALBUTEROL SO4 2.5/IPRATROPIUM 0.5 INH SOL 3 ML VIAL.NEB. NEB SCH ×4 (07:25→19:22)
[2022-02-23] MEDS: APIXABAN 5 MG TABLET PO SCH ×2 (08:59→21:06)
[2022-02-23] MEDS: DIGOXIN 0.125 MG TABLET PO SCH (08:59)
[2022-02-23] MEDS: TAMSULOSIN HCL 0.4 MG CAP PO SCH (09:00)
[2022-02-23] MEDS: PANTOPRAZOLE 40 MG TABLET PO SCH (09:00)
[2022-02-23] MEDS: ASPIRIN COATED 81 MG TABLET.EC PO SCH (09:00)
[2022-02-23 10:04] LABS: BASO % 0.8 % (0-2.0); EOS % 5.6 % (0-4.5); HEMATOCRIT 30.5 % (35.4-49); HEMOGLOBIN 10.9 GM/dL (11.7-16.9); LYMPH % 23.3 % (8-40); MCH 38.9 pg (25.7-33.7); MCHC 35.7 g/dl (32.0-35.9); MEAN CELL VOLUME 108.7 fl (80-96); MONO % 4.2 % (3.8-10.2); NEUT % 66.1 % (42.8-82.8); RBC 2.81 M/mm3 (4.00-5.60); RDW 15.9 % (11.9-15.9); WHITE BLOOD COUNT 10.1 K/mm3 (4.0-10.0)
[2022-02-23 10:11] LABS: BLOOD UREA NITROGEN 21.9 mg/dL (7-18); CALCIUM 8.5 mg/dL (8.5-10.1); MAGNESIUM 2.3 mg/dL (1.8-2.4)
[2022-02-23 10:15] LABS: CREATININE 1.4 mg/dL (0.55-1.3)
[2022-02-23 11:58] LABS: MEAN PLT VOLUME 9.7 fl (7.5-11.1); PLATELET COUNT 255 10^3/uL (134-434)
[2022-02-23] MEDS: oxyCODONE HCL 5 MG TABLET PO PRN (12:42)
[2022-02-23 13:58] LABS: LACTIC ACID 2.1 mmol/L (0.4-2.0)
[2022-02-24] MEDS: oxyCODONE HCL 5 MG TABLET PO PRN ×2 (00:28→12:28)
[2022-02-24] MEDS: ALBUTEROL SO4 2.5/IPRATROPIUM 0.5 INH SOL 3 ML VIAL.NEB. NEB SCH ×4 (07:48→22:00)
[2022-02-24] MEDS: TAMSULOSIN HCL 0.4 MG CAP PO SCH (08:54)
[2022-02-24 09:38] LABS: HEMATOCRIT 36.6 % (35.4-49); HEMOGLOBIN 12.1 GM/dL (11.7-16.9); MCHC 33.2 g/dl (32.0-35.9); MEAN CELL VOLUME 108.3 fl (80-96); MEAN PLT VOLUME 9.7 fl (7.5-11.1); PLATELET COUNT 208 10^3/uL (134-434); RBC 3.37 M/mm3 (4.00-5.60); RDW 15.4 % (11.9-15.9); WHITE BLOOD COUNT 6.4 K/mm3 (4.0-10.0)
[2022-02-24] MEDS: ASPIRIN COATED 81 MG TABLET.EC PO SCH (09:41)
[2022-02-24] MEDS: DIGOXIN 0.125 MG TABLET PO SCH (09:42)
[2022-02-24] MEDS: APIXABAN 5 MG TABLET PO SCH ×2 (09:42→21:47)
[2022-02-24] MEDS: PANTOPRAZOLE 40 MG TABLET PO SCH (09:42)
[2022-02-24 09:53] LABS: LACTIC ACID 2.6 mmol/L (0.4-2.0)
[2022-02-24 09:58] LABS: CALCIUM 8.5 mg/dL (8.5-10.1)
[2022-02-24 09:59] LABS: ALBUMIN 3.5 g/dl (3.4-5.0); BLOOD UREA NITROGEN 18.4 mg/dL (7-18); MAGNESIUM 2.4 mg/dL (1.8-2.4)
[2022-02-24 10:02] LABS: CREATININE 1.4 mg/dL (0.55-1.3)
[2022-02-24 10:04] LABS: BILIRUBIN,TOTAL 0.5 mg/dL (0.2-1); TOT PROT 5.9 g/dl (6.4-8.2)
[2022-02-24] MEDS: SODIUM CHLORIDE 0.45% 1,000 ML IV SCH (20:00)
[2022-02-25] MEDS: ALBUTEROL SO4 2.5/IPRATROPIUM 0.5 INH SOL 3 ML VIAL.NEB. NEB SCH ×4 (07:15→20:29)
[2022-02-25] MEDS: DIGOXIN 0.125 MG TABLET PO SCH (09:52)
[2022-02-25] MEDS: TAMSULOSIN HCL 0.4 MG CAP PO SCH (09:52)
[2022-02-25] MEDS: APIXABAN 5 MG TABLET PO SCH ×2 (09:52→21:22)
[2022-02-25] MEDS: oxyCODONE HCL 5 MG TABLET PO PRN ×2 (09:52→17:33)
[2022-02-25] MEDS: ASPIRIN COATED 81 MG TABLET.EC PO SCH (09:52)
[2022-02-25] MEDS: PANTOPRAZOLE 40 MG TABLET PO SCH (09:52)
[2022-02-25 11:23] LABS: CALCIUM 8.2 mg/dL (8.5-10.1)
[2022-02-25 11:24] LABS: ALBUMIN 3.4 g/dl (3.4-5.0); BLOOD UREA NITROGEN 16.5 mg/dL (7-18)
[2022-02-25 11:27] LABS: CREATININE 1.2 mg/dL (0.55-1.3)
[2022-02-25 11:29] LABS: BILIRUBIN,TOTAL 0.5 mg/dL (0.2-1); TOT PROT 5.8 g/dl (6.4-8.2)
[2022-02-25 11:47] VITALS: BMI 24.2
[2022-02-25 14:55] LABS: MAGNESIUM 2.2 mg/dL (1.8-2.4)
[2022-02-25 14:59] LABS: PHOSPHOROUS 2.6 mg/dL (2.5-4.9)
[2022-02-25] MEDS: SODIUM CHLORIDE 0.45% 1,000 ML IV SCH ×2 (17:34→20:39)
[2022-02-26] MEDS: SODIUM CHLORIDE 0.45% 1,000 ML IV SCH ×2 (00:41→10:58)
[2022-02-26] MEDS: oxyCODONE HCL 5 MG TABLET PO PRN ×2 (09:24→17:57)
[2022-02-26] MEDS: DIGOXIN 0.125 MG TABLET PO SCH (09:25)
[2022-02-26] MEDS: TAMSULOSIN HCL 0.4 MG CAP PO SCH (09:25)
[2022-02-26] MEDS: ASPIRIN COATED 81 MG TABLET.EC PO SCH (09:25)
[2022-02-26] MEDS: APIXABAN 5 MG TABLET PO SCH (09:25)
[2022-02-26] MEDS: PANTOPRAZOLE 40 MG TABLET PO SCH (09:26)
[2022-02-26] MEDS: ALBUTEROL SO4 2.5/IPRATROPIUM 0.5 INH SOL 3 ML VIAL.NEB. NEB SCH ×2 (10:08→12:31)
[2022-02-26 10:11] LABS: HEMATOCRIT 33.6 % (35.4-49); HEMOGLOBIN 11.3 GM/dL (11.7-16.9); MCH 36.4 pg (25.7-33.7); MCHC 33.7 g/dl (32.0-35.9); MEAN CELL VOLUME 107.9 fl (80-96); MEAN PLT VOLUME 9.6 fl (7.5-11.1); PLATELET COUNT 190 10^3/uL (134-434); RBC 3.12 M/mm3 (4.00-5.60); RDW 15.3 % (11.9-15.9); WHITE BLOOD COUNT 6.7 K/mm3 (4.0-10.0)
[2022-02-26 10:35] LABS: CALCIUM 8.3 mg/dL (8.5-10.1)
[2022-02-26 10:36] LABS: BLOOD UREA NITROGEN 16.5 mg/dL (7-18)
[2022-02-26 10:39] LABS: CREATININE 1.2 mg/dL (0.55-1.3)
[2022-02-26 14:36] VITALS: BP 114/65; PULSE 93; RESP 18; TEMP 98.6
== END 2022-02-26 19:21 | disposition home or self-care (01) | DRG 291 ==
LOC: JER 22:42 → JERBED 23:33 → J6S 02-21 21:10
PROVIDERS: ADMIT Internal Medicine; ATTEND Internal Medicine
DX: I13.0 Hypertensive heart and chronic kidney disease with heart failure and stage 1 through stage 4 chronic kidney disease, or unspecified chronic kidney disease (principal); I50.23 Acute on chronic systolic (congestive) heart failure; R53.2 Functional quadriplegia; N17.9 Acute kidney failure, unspecified; I48.91 Unspecified atrial fibrillation; N18.30 Chronic kidney disease, stage 3 unspecified; E78.5 Hyperlipidemia, unspecified; I48.0 Paroxysmal atrial fibrillation; F41.8 Other specified anxiety disorders; J44.9 Chronic obstructive pulmonary disease, unspecified; N40.0 Benign prostatic hyperplasia without lower urinary tract symptoms; I44.7 Left bundle-branch block, unspecified; M54.50 Low back pain, unspecified; R33.9 Retention of urine, unspecified; K21.9 Gastro-esophageal reflux disease without esophagitis; K59.00 Constipation, unspecified; K57.90 Diverticulosis of intestine, part unspecified, without perforation or abscess without bleeding; K44.9 Diaphragmatic hernia without obstruction or gangrene; I42.8 Other cardiomyopathies; K64.8 Other hemorrhoids; Z74.01 Bed confinement status
CPT/HCPCS: 0241U-QW; 36415; 71045-TC-FY; 71275-TC; 80048; 80053; 81003; 82803; 83605; 83735; 83880; 84100; 84484; 85025; 85027; 85610; 85730; 86038; 87086; 87633; 93005; 93010; 94640; 94761; 97161-GP; 99285-25; Q9967

== ENCOUNTER 2022-10-11 23:14 | Inpatient (IN) | payer OTHER, BC ==
[2022-10-11 23:19] VITALS: BMI 25.1
[2022-10-12] MEDS ORDERED: ACETAMINOPHEN 1000 MG/100 ML BAG IVPB ONE (00:11)
[2022-10-12] MEDS ORDERED: ACETAMINOPHEN INJECTION 100 ML IVPB ONE (00:21)
[2022-10-12 00:34] LABS: BASO % 0.4 % (0-2.0); EOS % 3.4 % (0-4.5); HEMATOCRIT 38.1 % (35.4-49); HEMOGLOBIN 12.3 GM/dL (11.7-16.9); LYMPH % 20.9 % (8-40); MCH 34.1 pg (25.7-33.7); MCHC 32.4 g/dl (32.0-35.9); MEAN CELL VOLUME 105.3 fl (80-96); MONO % 5.9 % (3.8-10.2); NEUT % 69.4 % (42.8-82.8); PLATELET COUNT 170 10^3/uL (134-434); RBC 3.61 M/mm3 (4.00-5.60); RDW 16.3 % (11.9-15.9); WHITE BLOOD COUNT 12.1 K/mm3 (4.0-10.0)
[2022-10-12 00:45] LABS: VENOUS BASE EXCESS -2.3 mmol/L (-2-2); VENOUS O2 SATURATION 85.6 % (70-80); VENOUS PCO2 35.6 mmHg (38-52); VENOUS PH 7.403 (7.310-7.410)
[2022-10-12 00:57] LABS: INR 1.46 (0.83-1.09); PROTHROMBIN TIME (PATIENT) 16.9 SEC (9.7-13.0)
[2022-10-12 01:01] LABS: CHLORIDE 111 mmol/L (98-107); SODIUM 141 mmol/L (136-145)
[2022-10-12 01:04] LABS: CALCIUM 8.6 mg/dL (8.5-10.1)
[2022-10-12 01:05] LABS: ALBUMIN 3.2 g/dl (3.4-5.0); ANION GAP 9 MMOL/L (8-16); BLOOD UREA NITROGEN 30.5 mg/dL (7-18); CO2 21 mmol/L (21-32); GLUCOSE,RANDOM 120 mg/dL (74-106)
[2022-10-12 01:08] LABS: CREATININE 1.2 mg/dL (0.55-1.3); SGOT/AST 183 U/L (15-37); SGPT/ALT 211 U/L (13-61)
[2022-10-12 01:09] LABS: TOT PROT 6.1 g/dl (6.4-8.2)
[2022-10-12 01:10] LABS: ALK PHOS 370 U/L (45-117); BILIRUBIN,TOTAL 1.4 mg/dL (0.2-1)
[2022-10-12] MEDS ORDERED: VANCOMYCIN 1 GM in D5W (PRE-DOCKED) 1,000 MG/250 ML IVPB ONE (01:12)
[2022-10-12] MEDS ORDERED: MEROPENEM 1 GM in DEXTROSE 5%-WATER 100 ML IVPB ONE (01:15)
[2022-10-12 01:48] LABS: LIPASE 100 U/L (73-393)
[2022-10-12] MEDS ORDERED: MEROPENEM 1 GM VIAL (RESTRICTED TO ID) IVPB ONE (02:23)
[2022-10-12 03:09] LABS: ANISOCYTOSIS 1+; MACROCYTOSIS 2+; TEAR DROP CELLS 1+
[2022-10-12] MEDS ORDERED: SODIUM CHLORIDE 0.9% 500 ML INFUS.BAG IV ONE ×2 (03:17→03:43)
[2022-10-12] MEDS ORDERED: VANCOMYCIN/WATER FOR INJ (PEG) 1,000 MG/200 ML BAG IVPB ONE (04:01)
[2022-10-12 04:04] LABS: EPI CELLS >36 /uL (0-25.1); HYALINE CASTS 5 /uL (0-3.1); URINE APPEARANCE CLEAR; URINE BACTERIA 76 /uL (0-1359); URINE BILIRUBIN NEGATIVE (NEGATIVE); URINE COLOR YELLOW; URINE GLUCOSE (UA) NEGATIVE (NEGATIVE); URINE KETONE 1+ (NEGATIVE); URINE LEUK ESTERASE TRACE (NEGATIVE); URINE NITRITE NEGATIVE (NEGATIVE); URINE PROTEIN NEGATIVE (NEGATIVE); URINE RBC 29 /uL (0-23.9); URINE WBC 64 /uL (0-25.8)
[2022-10-12 05:05] LABS: URINE CRYSTALS NONE SEEN /hpf
[2022-10-12] MEDS ORDERED: MAGNESIUM HYDROX 2400MG/30ML ORAL SUSPENSION 30 ML CUP PO PRN (05:13)
[2022-10-12] MEDS ORDERED: FUROSEMIDE 40 MG/4 ML INJECTABLE VIAL IVPUSH ONE (06:28)
[2022-10-12] MEDS ORDERED: LIDOCAINE HCL 1%, 10 MG/ML (10ML VIAL) MDV ONE (06:37)
[2022-10-12] MEDS: POLYETHYLENE GLYCOL (HEALTHYLAX) 3350 17 GM PACKET PO SCH ×3 (06:40→22:48)
[2022-10-12] MEDS ORDERED: POLYETHYLENE GLYCOL (HEALTHYLAX) 3350 17 GM PACKET ONE ×2 (06:40→09:55)
[2022-10-12] MEDS: LACTATED RINGERS SOLUTION 1,000 ML/1,000 ML INFUS.BAG IV SCH (06:44)
[2022-10-12 06:47] LABS: BILIRUBIN,DIRECT 1.1 mg/dL (0.0-0.2)
[2022-10-12] MEDS: IPRATROPIUM BR 0.02% 0.5 MG/2.5 ML VIAL.NEB. NEB SCH ×4 (08:00→20:25)
[2022-10-12] MEDS ORDERED: BISACODYL 10 MG SUPP.RECT PR ONE (08:15)
[2022-10-12] MEDS ORDERED: SENNOSIDES 8.6MG TABLET (FP) PO ONE (09:55)
[2022-10-12] MEDS ORDERED: IPRATROPIUM BR 0.02% 0.5 MG/2.5 ML VIAL.NEB. NEB ONE (09:55)
[2022-10-12] MEDS ORDERED: VANCOMYCIN/WATER 1250 MG 1,250 MG/250 ML BAG IVPB ONE (09:56)
[2022-10-12] MEDS ORDERED: ENOXAPARIN NA (PORCINE) 40 MG/0.4 ML DISP.SYRIN SQ ONE (09:56)
[2022-10-12] MEDS ORDERED: ENOXAPARIN NA (PORCINE) 40 MG/0.4 ML DISP.SYRIN SQ SCH (10:00)
[2022-10-12] MEDS ORDERED: MEROPENEM 1 GM in DEXTROSE 5%-WATER 100 ML IVPB SCH ×2 (10:00→15:33)
[2022-10-12] MEDS: SENNOSIDES 8.6MG TABLET (FP) PO SCH ×2 (10:10→22:48)
[2022-10-12 11:17] LABS: GAMMA GLUTAMYL TRANSPEPTIDASE 1132 U/L (5-85)
[2022-10-12] MEDS ORDERED: METOPROLOL TARTRATE 25 MG TABLET (FP) PO ONE (14:28)
[2022-10-12 14:33] LABS: HEMATOCRIT 35.8 % (35.4-49); HEMOGLOBIN 11.7 GM/dL (11.7-16.9); MCH 34.1 pg (25.7-33.7); MCHC 32.6 g/dl (32.0-35.9); MEAN CELL VOLUME 104.6 fl (80-96); MEAN PLT VOLUME 10.1 fl (7.5-11.1); PLATELET COUNT 162 10^3/uL (134-434); RBC 3.42 M/mm3 (4.00-5.60); RDW 15.9 % (11.9-15.9); WHITE BLOOD COUNT 25.2 K/mm3 (4.0-10.0)
[2022-10-12 14:54] LABS: CALCIUM 8.7 mg/dL (8.5-10.1); MAGNESIUM 1.9 mg/dL (1.8-2.4)
[2022-10-12 14:55] LABS: ALBUMIN 3.2 g/dl (3.4-5.0); BLOOD UREA NITROGEN 26.1 mg/dL (7-18)
[2022-10-12 14:57] LABS: CREATININE 1.2 mg/dL (0.55-1.3)
[2022-10-12 14:58] LABS: ANISOCYTOSIS 1+; MACROCYTOSIS 1+; OVALOCYTE 1+; PHOSPHOROUS 2.7 mg/dL (2.5-4.9); TOT PROT 6.1 g/dl (6.4-8.2)
[2022-10-12 15:00] LABS: BILIRUBIN,TOTAL 4.6 mg/dL (0.2-1)
[2022-10-12] MEDS ORDERED: VANCOMYCIN/WATER 1,250 MG/250 ML BAG (RESTRICTED TO ID ONLY) IVPB SCH ×2 (16:00)
[2022-10-12] MEDS: oxyCODONE HCL 5 MG TABLET PO PRN (17:23)
[2022-10-12] MEDS: MEROPENEM 1 GM in DEXTROSE 5%-WATER 100 ML IVPB SCH (19:47)
[2022-10-12] MEDS: ALPRAZolam 0.25 MG TABLET PO SCH (22:48)
[2022-10-13] MEDS: oxyCODONE HCL 5 MG TABLET PO PRN ×3 (00:06→21:17)
[2022-10-13] MEDS: LACTATED RINGERS SOLUTION 1,000 ML/1,000 ML INFUS.BAG IV SCH (03:12)
[2022-10-13] MEDS: MEROPENEM 1 GM in DEXTROSE 5%-WATER 100 ML IVPB SCH ×3 (03:21→18:22)
[2022-10-13] MEDS: POLYETHYLENE GLYCOL (HEALTHYLAX) 3350 17 GM PACKET PO SCH ×3 (06:11→22:52)
[2022-10-13] MEDS ORDERED: HEPARIN NA (PORCINE) 5,000 UNITS/ML 1ML VIAL IVPUSH PRN ×2 (08:19)
[2022-10-13] MEDS: TAMSULOSIN HCL 0.4 MG CAP PO SCH (08:30)
[2022-10-13] MEDS: HEPARIN INFUSION - 25,000 UNITS/500 ML INFUS.BAG IVPB SCH (09:11)
[2022-10-13] MEDS: IPRATROPIUM BR 0.02% 0.5 MG/2.5 ML VIAL.NEB. NEB SCH ×4 (09:11→21:34)
[2022-10-13] MEDS: ALPRAZolam 0.25 MG TABLET PO SCH ×2 (09:13→22:52)
[2022-10-13] MEDS: SENNOSIDES 8.6MG TABLET (FP) PO SCH ×2 (09:13→22:52)
[2022-10-13] MEDS: PANTOPRAZOLE 40 MG TABLET PO SCH (09:13)
[2022-10-13] MEDS: DIGOXIN 0.125 MG TABLET PO SCH (09:14)
[2022-10-13 09:38] LABS: INR 1.44 (0.83-1.09); PROTHROMBIN TIME (PATIENT) 16.7 SEC (9.7-13.0)
[2022-10-13 09:50] LABS: BASO % 0.5 % (0-2.0); EOS % 1.7 % (0-4.5); HEMATOCRIT 30.9 % (35.4-49); HEMOGLOBIN 10.3 GM/dL (11.7-16.9); MCH 35.7 pg (25.7-33.7); MCHC 33.5 g/dl (32.0-35.9); MEAN CELL VOLUME 106.7 fl (80-96); MEAN PLT VOLUME 10.7 fl (7.5-11.1); MONO % 5.4 % (3.8-10.2); NEUT % 81.4 % (42.8-82.8); PLATELET COUNT 136 10^3/uL (134-434); RBC 2.89 M/mm3 (4.00-5.60); WHITE BLOOD COUNT 14.6 K/mm3 (4.0-10.0)
[2022-10-13 10:01] LABS: CALCIUM 7.9 mg/dL (8.5-10.1)
[2022-10-13 10:02] LABS: ALBUMIN 2.7 g/dl (3.4-5.0); BLOOD UREA NITROGEN 24.4 mg/dL (7-18)
[2022-10-13 10:03] LABS: CREATININE 1.1 mg/dL (0.55-1.3)
[2022-10-13 10:04] LABS: BILIRUBIN,TOTAL 2.7 mg/dL (0.2-1); TOT PROT 5.4 g/dl (6.4-8.2)
[2022-10-13] MEDS ORDERED: PHYTONADIONE 10 MG/1 ML AMP IVPB ONE (21:02)
[2022-10-13] MEDS: URSODIOL 300 MG CAPSULE PO SCH (22:52)
[2022-10-14] MEDS ORDERED: MEROPENEM 1 GM VIAL (RESTRICTED TO ID) IVPB ONE (01:26)
[2022-10-14] MEDS: MEROPENEM 1 GM in DEXTROSE 5%-WATER 100 ML IVPB SCH ×2 (02:15→11:44)
[2022-10-14] MEDS: HEPARIN INFUSION - 25,000 UNITS/500 ML INFUS.BAG IVPB SCH (05:59)
[2022-10-14] MEDS: POLYETHYLENE GLYCOL (HEALTHYLAX) 3350 17 GM PACKET PO SCH ×3 (06:04→21:34)
[2022-10-14] MEDS: IPRATROPIUM BR 0.02% 0.5 MG/2.5 ML VIAL.NEB. NEB SCH ×4 (08:28→20:00)
[2022-10-14] MEDS: oxyCODONE HCL 5 MG TABLET PO PRN ×2 (09:19→21:03)
[2022-10-14] MEDS: SENNOSIDES 8.6MG TABLET (FP) PO SCH ×2 (09:20→21:10)
[2022-10-14] MEDS: ALPRAZolam 0.25 MG TABLET PO SCH ×2 (09:20→21:11)
[2022-10-14] MEDS: DIGOXIN 0.125 MG TABLET PO SCH (09:20)
[2022-10-14] MEDS: PANTOPRAZOLE 40 MG TABLET PO SCH (09:20)
[2022-10-14] MEDS: TAMSULOSIN HCL 0.4 MG CAP PO SCH (09:20)
[2022-10-14] MEDS: URSODIOL 300 MG CAPSULE PO SCH ×2 (09:24→21:11)
[2022-10-14 09:31] LABS: BASO % 0.7 % (0-2.0); EOS % 5.2 % (0-4.5); HEMATOCRIT 32.9 % (35.4-49); HEMOGLOBIN 10.9 GM/dL (11.7-16.9); LYMPH % 13.4 % (8-40); MCH 34.6 pg (25.7-33.7); MCHC 33.1 g/dl (32.0-35.9); MEAN CELL VOLUME 104.3 fl (80-96); MEAN PLT VOLUME 10.3 fl (7.5-11.1); MONO % 7.1 % (3.8-10.2); NEUT % 73.6 % (42.8-82.8); PLATELET COUNT 126 10^3/uL (134-434); RBC 3.16 M/mm3 (4.00-5.60); RDW 15.7 % (11.9-15.9); WHITE BLOOD COUNT 9.2 K/mm3 (4.0-10.0)
[2022-10-14 09:36] LABS: INR 1.13 (0.83-1.09); PROTHROMBIN TIME (PATIENT) 13.1 SEC (9.7-13.0)
[2022-10-14 13:13] LABS: ALBUMIN 2.7 g/dl (3.4-5.0); BILIRUBIN,TOTAL 1.2 mg/dL (0.2-1); BLOOD UREA NITROGEN 20.6 mg/dL (7-18); CALCIUM 8.2 mg/dL (8.5-10.1); CREATININE 0.9 mg/dL (0.55-1.3); TOT PROT 5.2 g/dl (6.4-8.2)
[2022-10-14 13:23] LABS: ACTIVATED PTT 76.6 SECONDS (25.2-36.5)
[2022-10-14] MEDS ORDERED: ALPRAZolam 0.25 MG TABLET PO PRN (17:49)
[2022-10-14] MEDS ORDERED: PHYTONADIONE 10 MG/1 ML AMP IVPB ONE (20:33)
[2022-10-15] MEDS: HEPARIN INFUSION - 25,000 UNITS/500 ML INFUS.BAG IVPB SCH (00:47)
[2022-10-15] MEDS: POLYETHYLENE GLYCOL (HEALTHYLAX) 3350 17 GM PACKET PO SCH ×3 (07:02→22:09)
[2022-10-15] MEDS: IPRATROPIUM BR 0.02% 0.5 MG/2.5 ML VIAL.NEB. NEB SCH ×4 (08:00→20:05)
[2022-10-15] MEDS: TAMSULOSIN HCL 0.4 MG CAP PO SCH (09:55)
[2022-10-15] MEDS: URSODIOL 300 MG CAPSULE PO SCH ×2 (09:55→22:07)
[2022-10-15] MEDS: PANTOPRAZOLE 40 MG TABLET PO SCH (09:56)
[2022-10-15] MEDS: SENNOSIDES 8.6MG TABLET (FP) PO SCH ×2 (09:56→22:07)
[2022-10-15] MEDS: DIGOXIN 0.125 MG TABLET PO SCH (09:56)
[2022-10-15] MEDS: ALPRAZolam 0.25 MG TABLET PO SCH ×2 (09:57→22:08)
[2022-10-15] MEDS ORDERED: ERTAPENEM SODIUM 1 GM in SODIUM CHLORIDE 50 ML IVPB SCH (10:00)
[2022-10-15 10:03] LABS: BASO % 0.9 % (0-2.0); EOS % 7.5 % (0-4.5); HEMATOCRIT 31.5 % (35.4-49); HEMOGLOBIN 10.8 GM/dL (11.7-16.9); MCH 36.2 pg (25.7-33.7); MCHC 34.2 g/dl (32.0-35.9); MEAN CELL VOLUME 105.9 fl (80-96); MEAN PLT VOLUME 10.3 fl (7.5-11.1); MONO % 7.8 % (3.8-10.2); NEUT % 60.8 % (42.8-82.8); PLATELET COUNT 148 10^3/uL (134-434); RBC 2.97 M/mm3 (4.00-5.60); RDW 15.4 % (11.9-15.9); WHITE BLOOD COUNT 5.3 K/mm3 (4.0-10.0)
[2022-10-15 10:08] LABS: INR 1.09 (0.83-1.09); PROTHROMBIN TIME (PATIENT) 12.6 SEC (9.7-13.0)
[2022-10-15 10:29] LABS: CALCIUM 8.6 mg/dL (8.5-10.1)
[2022-10-15 10:30] LABS: ALBUMIN 2.7 g/dl (3.4-5.0); CREATININE 0.9 mg/dL (0.55-1.3)
[2022-10-15 10:31] LABS: BILIRUBIN,TOTAL 0.9 mg/dL (0.2-1)
[2022-10-15 10:32] LABS: TOT PROT 5.2 g/dl (6.4-8.2)
[2022-10-15 12:27] LABS: ANISOCYTOSIS 1+; MACROCYTOSIS 1+; OVALOCYTE 2+
[2022-10-15] MEDS: oxyCODONE HCL 5 MG TABLET PO PRN (22:16)
[2022-10-16 01:13] VITALS: BP 131/75; PULSE 95; RESP 18; TEMP 97.5
== END 2022-10-16 02:00 | disposition short-term general hospital (02) | DRG 871 ==
LOC: JER 23:14 → JERBED 10-12 04:20 → J6S 10-12 13:21
PROVIDERS: ADMIT Internal Medicine; ATTEND Internal Medicine
PROC: 0DJ08ZZ Inspection of Upper Intestinal Tract, Via Natural or Artificial Opening Endoscopic (ICD-10-PCS; principal; 2022-10-15 14:00)
DX: A41.89 Other specified sepsis (principal); R53.2 Functional quadriplegia; I50.22 Chronic systolic (congestive) heart failure; I13.0 Hypertensive heart and chronic kidney disease with heart failure and stage 1 through stage 4 chronic kidney disease, or unspecified chronic kidney disease; K80.51 Calculus of bile duct without cholangitis or cholecystitis with obstruction; I42.8 Other cardiomyopathies; K80.43 Calculus of bile duct with acute cholecystitis with obstruction; G82.20 Paraplegia, unspecified; R65.20 Severe sepsis without septic shock; N18.9 Chronic kidney disease, unspecified; D69.6 Thrombocytopenia, unspecified; G89.29 Other chronic pain; K21.9 Gastro-esophageal reflux disease without esophagitis; E78.5 Hyperlipidemia, unspecified; I48.0 Paroxysmal atrial fibrillation; J44.9 Chronic obstructive pulmonary disease, unspecified; N40.0 Benign prostatic hyperplasia without lower urinary tract symptoms; F41.8 Other specified anxiety disorders; R00.0 Tachycardia, unspecified; K59.00 Constipation, unspecified; D64.9 Anemia, unspecified; M54.50 Low back pain, unspecified; K44.9 Diaphragmatic hernia without obstruction or gangrene; K22.2 Esophageal obstruction; M21.372 Foot drop, left foot; M21.371 Foot drop, right foot; K59.03 Drug induced constipation; T40.2X5A Adverse effect of other opioids, initial encounter; Z74.01 Bed confinement status
CPT/HCPCS: 0241U-QW; 36415; 71045-TC-FY; 74177-TC; 74181-TC; 76705-TC; 80053; 80162; 80307; 81003; 82150; 82248; 82272; 82550; 82553; 82803; 82962; 82977; 83605; 83690; 83735; 84100; 84484; 85025; 85610; 85730; 86140; 86850; 86900; 86901; 87040; 87086; 87186; 93005; 93010; 94640; 99285-25; C9803-CS; J1644; Q9967; U0003; U0005

== ENCOUNTER 2022-11-19 17:08 | Observation (INO) | payer OTHER, BC ==
[2022-11-19 17:23] VITALS: BMI 25.0
[2022-11-19] MEDS ORDERED: METOPROLOL TARTRATE 5 MG/5 ML VIAL IVPUSH ONE (18:28)
[2022-11-19 19:41] LABS: HEMOGLOBIN 11.6 GM/dL (11.7-16.9); MCH 35.5 pg (25.7-33.7); MEAN CELL VOLUME 107.7 fl (80-96); MEAN PLT VOLUME 9.2 fl (7.5-11.1); PLATELET COUNT 207 10^3/uL (134-434); RBC 3.25 M/mm3 (4.00-5.60); WHITE BLOOD COUNT 8.9 K/mm3 (4.0-10.0)
[2022-11-19 19:54] LABS: INR 1.36 (0.83-1.09); PROTHROMBIN TIME (PATIENT) 15.7 SEC (9.7-13.0)
[2022-11-19 19:57] LABS: ACTIVATED PTT 40.7 SECONDS (25.2-36.5)
[2022-11-19 20:08] LABS: ALBUMIN 3.4 g/dl (3.4-5.0); BLOOD UREA NITROGEN 20.1 mg/dL (7-18); CALCIUM 8.7 mg/dL (8.5-10.1)
[2022-11-19 20:11] LABS: CREATININE 0.9 mg/dL (0.55-1.3)
[2022-11-19 20:13] LABS: BILIRUBIN,TOTAL 0.5 mg/dL (0.2-1); TOT PROT 6.4 g/dl (6.4-8.2)
[2022-11-19] MEDS ORDERED: ACETAMINOPHEN 1000 MG/100 ML BAG IVPB ONE (20:53)
[2022-11-19] MEDS ORDERED: SODIUM PHOSPHATE/NA BIPHOS 133 ML ENEMA PR ONE (20:53)
[2022-11-19] MEDS ORDERED: ACETAMINOPHEN INJECTION 100 ML IVPB ONE (21:01)
[2022-11-19 21:56] LABS: ANISOCYTOSIS 2+; MACROCYTOSIS 2+; PLATELET ESTIMATE ADEQUATE
[2022-11-20] MEDS ORDERED: APIXABAN 5 MG TABLET ONE (02:33)
[2022-11-20] MEDS ORDERED: metoPROLOL SUCCINATE 25 MG TAB.SR.24H (FP) PO ONE (02:33)
[2022-11-20] MEDS: metoPROLOL SUCCINATE 25 MG TAB.SR.24H (FP) PO SCH ×2 (02:47→09:51)
[2022-11-20] MEDS: SACUBITRIL/VALSARTAN 24 MG-26 MG TABLET PO SCH ×2 (02:47→09:51)
[2022-11-20] MEDS: APIXABAN 5 MG TABLET PO SCH ×2 (02:47→09:51)
[2022-11-20] MEDS ORDERED: MAG HYDROX/AL HYDROX/SIMETH 30 ML UNIT-DOSE CUP PO PRN (03:09)
[2022-11-20] MEDS ORDERED: MAG HYDROX/AL HYDROX/SIMETH 30 ML UNIT-DOSE CUP PO SCH (03:15)
[2022-11-20] MEDS ORDERED: Methylnaltrexone Bromide 12 MG/0.6 ML KIT SQ ONE (06:01)
[2022-11-20] MEDS ORDERED: PATIENT'S OWN MEDICATION (NON-FORMULARY) (Oxycodone Hcl/Acetaminophen [Oxycodone-Acetamino SCH (06:15)
[2022-11-20 07:42] LABS: HEMATOCRIT 32.4 % (35.4-49); HEMOGLOBIN 11.1 GM/dL (11.7-16.9); MCH 36.9 pg (25.7-33.7); MCHC 34.2 g/dl (32.0-35.9); MEAN CELL VOLUME 107.8 fl (80-96); MEAN PLT VOLUME 9.8 fl (7.5-11.1); PLATELET COUNT 195 10^3/uL (134-434); RBC 3.01 M/mm3 (4.00-5.60); RDW 16.7 % (11.9-15.9); WHITE BLOOD COUNT 8.6 K/mm3 (4.0-10.0)
[2022-11-20 07:59] LABS: CALCIUM 8.6 mg/dL (8.5-10.1)
[2022-11-20 08:00] LABS: ALBUMIN 3.2 g/dl (3.4-5.0); BLOOD UREA NITROGEN 19.3 mg/dL (7-18)
[2022-11-20 08:03] LABS: CREATININE 0.9 mg/dL (0.55-1.3)
[2022-11-20 08:04] LABS: BILIRUBIN,TOTAL 0.5 mg/dL (0.2-1); TOT PROT 5.9 g/dl (6.4-8.2)
[2022-11-20] MEDS ORDERED: TAMSULOSIN HCL 0.4 MG CAP PO SCH (08:30)
[2022-11-20] MEDS ORDERED: BENZONATATE 200 MG CAPSULE PO PRN (08:58)
[2022-11-20] MEDS ORDERED: PATIENT'S OWN MEDICATION (NON-FORMULARY) (Oxycodone Hcl/Acetaminophen [Oxycodone-Acetamino PO PRN (09:25)
[2022-11-20] MEDS ORDERED: oxyCODONE HCL 5 MG TABLET PO PRN (09:31)
[2022-11-20] MEDS ORDERED: ACETAMINOPHEN 325 MG TABLET (FP) PO PRN (09:35)
[2022-11-20] MEDS ORDERED: URSODIOL 300 MG CAPSULE PO SCH (10:00)
[2022-11-20] MEDS ORDERED: POLYETHYLENE GLYCOL (HEALTHYLAX) 3350 17 GM PACKET PO SCH ×2 (10:00)
[2022-11-20] MEDS ORDERED: ASPIRIN COATED 81 MG TABLET.EC PO SCH (10:00)
[2022-11-20] MEDS ORDERED: DIGOXIN 0.125 MG TABLET PO SCH (10:00)
[2022-11-20] MEDS ORDERED: SENNOSIDES 8.6MG TABLET (FP) PO PRN (10:31)
[2022-11-20 14:17] VITALS: TEMP 97.6
[2022-11-20] MEDS ORDERED: SODIUM PHOSPHATE/NA BIPHOS 133 ML ENEMA RC SCH (18:00)
[2022-11-20 19:10] VITALS: BP 129/67; PULSE 88; RESP 19
[2022-11-20] MEDS ORDERED: SENNOSIDES 8.8 MG/5 ML SYRUP PO SCH (22:00)
[2022-11-20] MEDS ORDERED: DOCUSATE SODIUM 100 MG CAPSULE (FP) PO SCH (22:00)
== END 2022-11-20 19:59 | disposition home or self-care (01) ==
LOC: JER 17:08 → JERBED 22:58 → J4S 11-20 04:07
PROVIDERS: ADMIT Internal Medicine; ATTEND Internal Medicine
PROC: 3E033GC Introduction of Other Therapeutic Substance into Peripheral Vein, Percutaneous Approach (ICD-10-PCS; principal; 2022-11-19)
PROC: 3E013GC Introduction of Other Therapeutic Substance into Subcutaneous Tissue, Percutaneous Approach (ICD-10-PCS; 2022-11-19)
DX: K56.41 Fecal impaction (principal); I11.0 Hypertensive heart disease with heart failure; I50.9 Heart failure, unspecified; I48.0 Paroxysmal atrial fibrillation; E78.5 Hyperlipidemia, unspecified; G82.20 Paraplegia, unspecified; N40.0 Benign prostatic hyperplasia without lower urinary tract symptoms; Z88.0 Allergy status to penicillin; Z91.010 Allergy to peanuts; Z88.5 Allergy status to narcotic agent; Z91.011 Allergy to milk products
CPT/HCPCS: 0241U-QW; 36415; 74176-TC; 80053; 80162; 83690; 84484; 85025; 85027; 85610; 85730; 93005; 93010; 96372; 96374; 99285-25; G0378

== ENCOUNTER 2023-01-09 13:02 | Inpatient (IN) | payer OTHER, BC ==
[2023-01-09] MEDS ORDERED: METOPROLOL TARTRATE 5 MG/5 ML VIAL IVPUSH ONE (13:38)
[2023-01-09] MEDS ORDERED: LACTATED RINGERS SOLUTION 1000 ML INFUS.BAG IV ONE ×2 (13:40→15:59)
[2023-01-09] MEDS ORDERED: ACETAMINOPHEN 1000 MG/100 ML BAG IVPB ONE (13:40)
[2023-01-09] MEDS ORDERED: ACETAMINOPHEN INJECTION 100 ML IVPB ONE (14:18)
[2023-01-09 15:02] LABS: BASO % 0.6 % (0-2.0); EOS % 0.3 % (0-4.5); HEMATOCRIT 40.1 % (35.4-49); HEMOGLOBIN 12.9 GM/dL (11.7-16.9); LYMPH % 8.1 % (8-40); MCH 35.9 pg (25.7-33.7); MCHC 32.2 g/dl (32.0-35.9); MEAN CELL VOLUME 111.7 fl (80-96); MEAN PLT VOLUME 10.3 fl (7.5-11.1); MONO % 2.8 % (3.8-10.2); NEUT % 88.2 % (42.8-82.8); PLATELET COUNT 238 10^3/uL (134-434); RBC 3.59 M/mm3 (4.00-5.60); RDW 15.4 % (11.9-15.9); WHITE BLOOD COUNT 9.1 K/mm3 (4.0-10.0)
[2023-01-09 15:12] LABS: INR 1.25 (0.83-1.09); PROTHROMBIN TIME (PATIENT) 14.5 SEC (9.7-13.0)
[2023-01-09 15:15] LABS: ACTIVATED PTT 30.1 SECONDS (25.2-36.5)
[2023-01-09 15:18] LABS: VENOUS BASE EXCESS -4.3 mmol/L (-2-2); VENOUS O2 SATURATION 26.3 % (70-80); VENOUS PCO2 38.4 mmHg (38-52); VENOUS PH 7.351 (7.310-7.410)
[2023-01-09 15:21] LABS: ALBUMIN 3.4 g/dl (3.4-5.0); BLOOD UREA NITROGEN 20.2 mg/dL (7-18); CALCIUM 9.4 mg/dL (8.5-10.1)
[2023-01-09 15:23] LABS: CREATININE 1.3 mg/dL (0.55-1.3)
[2023-01-09 15:26] LABS: TOT PROT 7.9 g/dl (6.4-8.2)
[2023-01-09 15:27] LABS: LACTIC ACID 4.5 mmol/L (0.4-2.0)
[2023-01-09 15:35] LABS: BILIRUBIN,TOTAL 0.9 mg/dL (0.2-1)
[2023-01-09 15:43] LABS: POTASSIUM 4.2 mmol/L (3.5-5.1)
[2023-01-09 15:45] LABS: ALBUMIN 3.6 g/dl (3.4-5.0); BLOOD UREA NITROGEN 21.2 mg/dL (7-18); CALCIUM 9.4 mg/dL (8.5-10.1)
[2023-01-09 15:49] LABS: CREATININE 1.2 mg/dL (0.55-1.3)
[2023-01-09 15:50] LABS: BILIRUBIN,TOTAL 0.8 mg/dL (0.2-1); TOT PROT 7.5 g/dl (6.4-8.2)
[2023-01-09 16:38] LABS: ANISOCYTOSIS 1+; MACROCYTOSIS 0; OVALOCYTE 2+
[2023-01-09 18:10] LABS: LACTIC ACID 2.7 mmol/L (0.4-2.0)
[2023-01-09] MEDS ORDERED: DEXAMETHASONE SOD PHOSPHATE 10 MG/1 ML VIAL IM ONE (18:16)
[2023-01-09] MEDS ORDERED: DEXAMETHASONE SOD PHOSPHATE 10 MG/1 ML VIAL ONE (18:25)
[2023-01-09] MEDS ORDERED: REMDESIVIR 200 MG in SODIUM CHLORIDE 250 ML IVPB ONE ×2 (20:57→22:30)
[2023-01-09 21:14] LABS: EPI CELLS >36 /uL (0-25.1); HYALINE CASTS 2 /uL (0-3.1); PH,URINE 5.5 (5.0-8.0); URINE APPEARANCE CLEAR; URINE BACTERIA 30 /uL (0-1359); URINE BILIRUBIN NEGATIVE (NEGATIVE); URINE COLOR YELLOW; URINE GLUCOSE (UA) NEGATIVE (NEGATIVE); URINE KETONE NEGATIVE (NEGATIVE); URINE LEUK ESTERASE TRACE (NEGATIVE); URINE NITRITE NEGATIVE (NEGATIVE); URINE PROTEIN 1+ (NEGATIVE); URINE RBC 107 /uL (0-23.9); URINE UROBILINOGEN 0.2 mg/dL (0.2-1.0); URINE WBC 185 /uL (0-25.8)
[2023-01-09] MEDS ORDERED: metoPROLOL SUCCINATE 25 MG TAB.SR.24H (FP) PO SCH (22:00)
[2023-01-09] MEDS ORDERED: ALBUTEROL SO4 HFA INHALER IH PRN (22:09)
[2023-01-09] MEDS: APIXABAN 5 MG TABLET PO SCH (22:10)
[2023-01-09] MEDS: URSODIOL 300 MG CAPSULE PO SCH (22:10)
[2023-01-09] MEDS: SODIUM CHLORIDE 1,000 ML IV SCH (22:21)
[2023-01-09] MEDS ORDERED: PIPERACILLIN/TAZOB 4.5 GM 4.5 GM/100 ML BAG IVPB ONE (22:24)
[2023-01-09 22:25] LABS: YEAST FEW (NEGATIVE)
[2023-01-09] MEDS ORDERED: VANCOMYCIN 1 GM in D5W (PRE-DOCKED) 1,000 MG/250 ML (RESTRICTED TO ID ONLY IVPB SCH (22:30)
[2023-01-09] MEDS: PIPERACILLIN/TAZOB 4.5 GM 4.5 GM in DEXTROSE 5%-WATER 100 ML IVPB SCH (22:35)
[2023-01-09] MEDS ORDERED: VANCOMYCIN 1 GM/200 ML PREMIX BAG (RESTRICTED TO ID ONLY) IVPB SCH (22:45)
[2023-01-09] MEDS ORDERED: VANCOMYCIN/WATER FOR INJ (PEG) 1,000 MG/200 ML BAG IVPB ONE (22:48)
[2023-01-10] MEDS ORDERED: VANCOMYCIN 250 MG/5 ML ORAL SOLUTION PO SCH
[2023-01-10] MEDS ORDERED: METOPROLOL TARTRATE 5 MG/5 ML VIAL IVPUSH ONE (01:02)
[2023-01-10] MEDS ORDERED: PIPERACILLIN/TAZOB 4.5 GM 4.5 GM/100 ML BAG IVPB ONE ×2 (03:42→08:18)
[2023-01-10] MEDS ORDERED: PATIENT'S OWN MEDICATION (NON-FORMULARY) (Oxycodone Hcl/Acetaminophen [Oxycodone-Acetamino PO PRN (03:52)
[2023-01-10] MEDS ORDERED: METHYLNALTREXONE BROMIDE 8 MG/0.4 ML SYRINGE SQ ONE (03:53)
[2023-01-10] MEDS ORDERED: oxyCODONE HCL 5 MG TABLET ONE (04:07)
[2023-01-10] MEDS: PIPERACILLIN/TAZOB 4.5 GM 4.5 GM in DEXTROSE 5%-WATER 100 ML IVPB SCH ×4 (04:11→21:34)
[2023-01-10 06:32] LABS: HEMOGLOBIN 11.8 GM/dL (11.7-16.9); MCHC 32.9 g/dl (32.0-35.9); MEAN CELL VOLUME 109.3 fl (80-96); MEAN PLT VOLUME 9.5 fl (7.5-11.1); PLATELET COUNT 202 10^3/uL (134-434); RBC 3.29 M/mm3 (4.00-5.60); RDW 15.4 % (11.9-15.9); WHITE BLOOD COUNT 6.8 K/mm3 (4.0-10.0)
[2023-01-10 06:52] LABS: POTASSIUM 3.7 mmol/L (3.5-5.1)
[2023-01-10 06:55] LABS: CALCIUM 8.2 mg/dL (8.5-10.1)
[2023-01-10 06:56] LABS: ALBUMIN 2.9 g/dl (3.4-5.0); MAGNESIUM 1.7 mg/dL (1.8-2.4)
[2023-01-10 06:58] LABS: CREATININE 1.2 mg/dL (0.55-1.3); PHOSPHOROUS 2.2 mg/dL (2.5-4.9)
[2023-01-10 07:01] LABS: BILIRUBIN,TOTAL 0.6 mg/dL (0.2-1); TOT PROT 6.2 g/dl (6.4-8.2)
[2023-01-10] MEDS ORDERED: ASPIRIN COATED 81 MG TABLET.EC ONE (08:17)
[2023-01-10] MEDS ORDERED: APIXABAN 5 MG TABLET ONE (08:17)
[2023-01-10] MEDS ORDERED: TAMSULOSIN HCL 0.4 MG CAP ONE (08:17)
[2023-01-10] MEDS ORDERED: DIGOXIN 0.125 MG TABLET ONE (08:17)
[2023-01-10] MEDS: APIXABAN 5 MG TABLET PO SCH ×2 (09:42→21:22)
[2023-01-10] MEDS: TAMSULOSIN HCL 0.4 MG CAP PO SCH (09:42)
[2023-01-10] MEDS: DIGOXIN 0.125 MG TABLET PO SCH (09:42)
[2023-01-10] MEDS: ASPIRIN COATED 81 MG TABLET.EC PO SCH (09:42)
[2023-01-10] MEDS: VANCOMYCIN 250 MG/5 ML ORAL SOLUTION PO SCH ×3 (09:43→19:21)
[2023-01-10] MEDS ORDERED: dilTIAZem HCL 125 MG/25 ML - 25 ML VIAL ONE (09:48)
[2023-01-10] MEDS ORDERED: dilTIAZem HCL 50 MG/10 ML - 10 ML VIAL ONE (09:48)
[2023-01-10] MEDS ORDERED: PANTOPRAZOLE 40 MG TABLET PO SCH (10:00)
[2023-01-10] MEDS ORDERED: DOXYCYCLINE INJECTION 100 MG in DEXTROSE 5%-WATER 100 ML IVPB SCH (10:00)
[2023-01-10] MEDS ORDERED: MAGNESIUM 2GM/50ML STERILE WATER IVPB IVPB ONE ×2 (10:00→13:15)
[2023-01-10] MEDS ORDERED: CEFTRIAXONE 1 GM in DEXTROSE 5%-WATER - 50 ML IVPB SCH (10:00)
[2023-01-10] MEDS ORDERED: CEFTRIAXONE 1 GM/50 ML BAG ONE (10:35)
[2023-01-10] MEDS: SODIUM CHLORIDE 1,000 ML IV SCH ×2 (12:21→22:32)
[2023-01-10] MEDS: URSODIOL 300 MG CAPSULE PO SCH ×2 (13:12→21:21)
[2023-01-10] MEDS ORDERED: MAGNESIUM SULF 50% (8.12 MEQ/2 ML-1 GM VIAL) IVPB ONE (13:45)
[2023-01-10] MEDS ORDERED: METOPROLOL TARTRATE 25 MG TABLET (FP) PO ONE (15:03)
[2023-01-10] MEDS: PIPERACILLIN/TAZOB 3.375 GM 3.375 GM in DEXTROSE 5%-WATER - 50 ML IVPB SCH (18:17)
[2023-01-10] MEDS: VANCOMYCIN ORAL SOLUTION 125 MG/2.5 ML PO SCH (19:18)
[2023-01-10] MEDS ORDERED: DEXAMETHASONE SOD PHOSPHATE 10 MG/1 ML VIAL IVPUSH SCH (20:00)
[2023-01-10] MEDS: NAPH,MB-DB/K PH,MBDB POWDER PACKET PO SCH (21:21)
[2023-01-10] MEDS: oxyCODONE HCL 5 MG TABLET PO PRN (21:38)
[2023-01-10] MEDS ORDERED: REMDESIVIR 100 MG in SODIUM CHLORIDE 270 ML IVPB SCH (22:00)
[2023-01-11] MEDS: VANCOMYCIN ORAL SOLUTION 125 MG/2.5 ML PO SCH ×3 (00:41→11:41)
[2023-01-11] MEDS: PIPERACILLIN/TAZOB 3.375 GM 3.375 GM in DEXTROSE 5%-WATER - 50 ML IVPB SCH ×4 (01:41→17:23)
[2023-01-11] MEDS: oxyCODONE HCL 5 MG TABLET PO PRN ×2 (05:25→20:19)
[2023-01-11 07:17] LABS: BASO % 0.2 % (0-2.0); HEMATOCRIT 31.1 % (35.4-49); HEMOGLOBIN 10.4 GM/dL (11.7-16.9); MCH 36.5 pg (25.7-33.7); MCHC 33.5 g/dl (32.0-35.9); MEAN CELL VOLUME 108.9 fl (80-96); MEAN PLT VOLUME 9.6 fl (7.5-11.1); MONO % 3.7 % (3.8-10.2); NEUT % 90.1 % (42.8-82.8); PLATELET COUNT 225 10^3/uL (134-434); RBC 2.85 M/mm3 (4.00-5.60); RDW 15.5 % (11.9-15.9); WHITE BLOOD COUNT 9.7 K/mm3 (4.0-10.0)
[2023-01-11 07:28] LABS: ALBUMIN 2.5 g/dl (3.4-5.0); BLOOD UREA NITROGEN 23.2 mg/dL (7-18); CALCIUM 8.2 mg/dL (8.5-10.1); MAGNESIUM 2.7 mg/dL (1.8-2.4)
[2023-01-11 07:30] LABS: CREATININE 1.1 mg/dL (0.55-1.3); PHOSPHOROUS 3.7 mg/dL (2.5-4.9)
[2023-01-11 07:32] LABS: BILIRUBIN,TOTAL 0.3 mg/dL (0.2-1); TOT PROT 5.5 g/dl (6.4-8.2)
[2023-01-11 08:18] LABS: POTASSIUM 4.8 mmol/L (3.5-5.1)
[2023-01-11] MEDS: ASPIRIN COATED 81 MG TABLET.EC PO SCH (09:34)
[2023-01-11] MEDS: URSODIOL 300 MG CAPSULE PO SCH ×2 (09:34→22:20)
[2023-01-11] MEDS: TAMSULOSIN HCL 0.4 MG CAP PO SCH (09:35)
[2023-01-11] MEDS: APIXABAN 5 MG TABLET PO SCH ×2 (09:35→22:20)
[2023-01-11] MEDS: NAPH,MB-DB/K PH,MBDB POWDER PACKET PO SCH ×2 (09:35→22:20)
[2023-01-11] MEDS: DIGOXIN 0.125 MG TABLET PO SCH (10:06)
[2023-01-11 16:08] VITALS: BMI 24.9
[2023-01-11] MEDS: SACUBITRIL/VALSARTAN 24 MG-26 MG TABLET PO SCH (22:21)
[2023-01-12] MEDS: PIPERACILLIN/TAZOB 3.375 GM 3.375 GM in DEXTROSE 5%-WATER - 50 ML IVPB SCH ×4 (01:07→19:43)
[2023-01-12] MEDS: ACETAMINOPHEN 325 MG TABLET (FP) PO PRN (01:09)
[2023-01-12] MEDS: oxyCODONE HCL 5 MG TABLET PO PRN ×3 (06:18→21:30)
[2023-01-12 08:03] LABS: BASO % 0.2 % (0-2.0); EOS % 0.8 % (0-4.5); HEMATOCRIT 31.7 % (35.4-49); HEMOGLOBIN 10.4 GM/dL (11.7-16.9); LYMPH % 17.3 % (8-40); MCH 36.3 pg (25.7-33.7); MCHC 32.9 g/dl (32.0-35.9); MEAN CELL VOLUME 110.1 fl (80-96); MEAN PLT VOLUME 9.6 fl (7.5-11.1); MONO % 5.6 % (3.8-10.2); NEUT % 76.1 % (42.8-82.8); PLATELET COUNT 241 10^3/uL (134-434); RBC 2.88 M/mm3 (4.00-5.60); RDW 15.2 % (11.9-15.9); WHITE BLOOD COUNT 8.3 K/mm3 (4.0-10.0)
[2023-01-12 08:18] LABS: POTASSIUM 4.3 mmol/L (3.5-5.1)
[2023-01-12 08:22] LABS: ALBUMIN 2.6 g/dl (3.4-5.0); BLOOD UREA NITROGEN 23.4 mg/dL (7-18); CALCIUM 8.2 mg/dL (8.5-10.1); MAGNESIUM 2.2 mg/dL (1.8-2.4)
[2023-01-12 08:26] LABS: CREATININE 1.2 mg/dL (0.55-1.3); TOT PROT 5.4 g/dl (6.4-8.2)
[2023-01-12 08:28] LABS: BILIRUBIN,TOTAL 0.6 mg/dL (0.2-1)
[2023-01-12] MEDS: DIGOXIN 0.125 MG TABLET PO SCH (09:19)
[2023-01-12] MEDS: URSODIOL 300 MG CAPSULE PO SCH ×2 (09:19→21:27)
[2023-01-12] MEDS: NAPH,MB-DB/K PH,MBDB POWDER PACKET PO SCH ×2 (09:19→21:35)
[2023-01-12] MEDS: ASPIRIN COATED 81 MG TABLET.EC PO SCH (09:20)
[2023-01-12] MEDS: TAMSULOSIN HCL 0.4 MG CAP PO SCH (09:20)
[2023-01-12] MEDS: APIXABAN 5 MG TABLET PO SCH (09:20)
[2023-01-12] MEDS: SACUBITRIL/VALSARTAN 24 MG-26 MG TABLET PO SCH ×2 (09:21→21:28)
[2023-01-13] MEDS: PIPERACILLIN/TAZOB 3.375 GM 3.375 GM in DEXTROSE 5%-WATER - 50 ML IVPB SCH ×3 (01:42→18:10)
[2023-01-13 07:28] LABS: BASO % 0.2 % (0-2.0); EOS % 0.8 % (0-4.5); HEMATOCRIT 33.4 % (35.4-49); HEMOGLOBIN 11.2 GM/dL (11.7-16.9); LYMPH % 18.2 % (8-40); MCH 36.4 pg (25.7-33.7); MCHC 33.4 g/dl (32.0-35.9); MEAN CELL VOLUME 108.7 fl (80-96); MEAN PLT VOLUME 9.3 fl (7.5-11.1); MONO % 4.5 % (3.8-10.2); NEUT % 76.3 % (42.8-82.8); PLATELET COUNT 277 10^3/uL (134-434); RBC 3.07 M/mm3 (4.00-5.60); RDW 15.5 % (11.9-15.9); WHITE BLOOD COUNT 9.8 K/mm3 (4.0-10.0)
[2023-01-13 07:45] LABS: POTASSIUM 4.4 mmol/L (3.5-5.1)
[2023-01-13 07:58] LABS: ALBUMIN 2.7 g/dl (3.4-5.0); BLOOD UREA NITROGEN 17.1 mg/dL (7-18); CALCIUM 8.4 mg/dL (8.5-10.1)
[2023-01-13 08:02] LABS: BILIRUBIN,TOTAL 0.9 mg/dL (0.2-1); TOT PROT 5.7 g/dl (6.4-8.2)
[2023-01-13] MEDS: oxyCODONE HCL 5 MG TABLET PO PRN ×2 (10:10→18:21)
[2023-01-13] MEDS: TAMSULOSIN HCL 0.4 MG CAP PO SCH (10:11)
[2023-01-13] MEDS: APIXABAN 5 MG TABLET PO SCH (10:11)
[2023-01-13] MEDS: ASPIRIN COATED 81 MG TABLET.EC PO SCH (10:11)
[2023-01-13] MEDS: SACUBITRIL/VALSARTAN 24 MG-26 MG TABLET PO SCH ×2 (10:11→22:03)
[2023-01-13] MEDS: URSODIOL 300 MG CAPSULE PO SCH ×2 (10:11→22:02)
[2023-01-13] MEDS: NAPH,MB-DB/K PH,MBDB POWDER PACKET PO SCH ×2 (10:12→22:10)
[2023-01-13] MEDS: DIGOXIN 0.125 MG TABLET PO SCH (10:12)
[2023-01-13 12:14] LABS: ANISOCYTOSIS 1+; MACROCYTOSIS 1+; OVALOCYTE 2+
[2023-01-13] MEDS: METOPROLOL TARTRATE 25 MG TABLET (FP) PO SCH ×2 (17:40→22:03)
[2023-01-13] MEDS: ACETAMINOPHEN 325 MG TABLET (FP) PO PRN (22:00)
[2023-01-14] MEDS: PIPERACILLIN/TAZOB 3.375 GM 3.375 GM in DEXTROSE 5%-WATER - 50 ML IVPB SCH ×3 (01:42→17:16)
[2023-01-14 07:41] LABS: BASO % 0.5 % (0-2.0); EOS % 1.7 % (0-4.5); HEMATOCRIT 32.3 % (35.4-49); HEMOGLOBIN 10.6 GM/dL (11.7-16.9); LYMPH % 11.2 % (8-40); MCH 35.7 pg (25.7-33.7); MCHC 32.7 g/dl (32.0-35.9); MEAN CELL VOLUME 109.1 fl (80-96); MEAN PLT VOLUME 9.3 fl (7.5-11.1); MONO % 1.9 % (3.8-10.2); NEUT % 84.7 % (42.8-82.8); PLATELET COUNT 295 10^3/uL (134-434); RBC 2.96 M/mm3 (4.00-5.60); RDW 15.2 % (11.9-15.9); WHITE BLOOD COUNT 12.3 K/mm3 (4.0-10.0)
[2023-01-14 08:18] LABS: POTASSIUM 4.4 mmol/L (3.5-5.1)
[2023-01-14 08:20] LABS: CALCIUM 8.3 mg/dL (8.5-10.1)
[2023-01-14 08:21] LABS: ALBUMIN 2.6 g/dl (3.4-5.0); BLOOD UREA NITROGEN 16.3 mg/dL (7-18)
[2023-01-14 08:25] LABS: BILIRUBIN,TOTAL 1.1 mg/dL (0.2-1); TOT PROT 5.6 g/dl (6.4-8.2)
[2023-01-14] MEDS: DIGOXIN 0.125 MG TABLET PO SCH (09:53)
[2023-01-14] MEDS: URSODIOL 300 MG CAPSULE PO SCH ×2 (09:53→22:15)
[2023-01-14] MEDS: ASPIRIN COATED 81 MG TABLET.EC PO SCH (09:53)
[2023-01-14] MEDS: TAMSULOSIN HCL 0.4 MG CAP PO SCH (09:54)
[2023-01-14] MEDS: SACUBITRIL/VALSARTAN 24 MG-26 MG TABLET PO SCH ×2 (09:54→22:20)
[2023-01-14] MEDS: METOPROLOL TARTRATE 25 MG TABLET (FP) PO SCH ×2 (09:54→22:15)
[2023-01-14] MEDS: NAPH,MB-DB/K PH,MBDB POWDER PACKET PO SCH ×2 (09:54→22:15)
[2023-01-14] MEDS: DEXAMETHASONE SOD PHOSPHATE 10 MG/1 ML VIAL IVPUSH SCH (09:55)
[2023-01-14] MEDS: oxyCODONE HCL 5 MG TABLET PO PRN ×3 (09:57→22:16)
[2023-01-14 11:38] LABS: ARTERIAL BLOOD GAS BASE EXCESS -0.4 mmol/L (-2-2); ARTERIAL BLOOD GAS PO2 97.7 mmHg (80-100); ARTERIAL BLOOD GAS pH 7.511 (7.350-7.450)
[2023-01-14 11:40] LABS: ALLENS TEST POSITIVE
[2023-01-14] MEDS: VANCOMYCIN 250 MG/5 ML ORAL SOLUTION PO SCH ×3 (12:10→22:26)
[2023-01-14] MEDS: REMDESIVIR 100 MG in SODIUM CHLORIDE 250 ML IVPB SCH (15:14)
[2023-01-15] MEDS: PIPERACILLIN/TAZOB 3.375 GM 3.375 GM in DEXTROSE 5%-WATER - 50 ML IVPB SCH ×3 (01:09→18:33)
[2023-01-15] MEDS: oxyCODONE HCL 5 MG TABLET PO PRN ×2 (05:13→22:02)
[2023-01-15] MEDS: VANCOMYCIN 250 MG/5 ML ORAL SOLUTION PO SCH ×2 (05:14→10:54)
[2023-01-15] MEDS: METOPROLOL TARTRATE 5 MG/5 ML VIAL IVPUSH PRN (06:40)
[2023-01-15] MEDS: TAMSULOSIN HCL 0.4 MG CAP PO SCH (08:46)
[2023-01-15] MEDS: URSODIOL 300 MG CAPSULE PO SCH ×2 (10:50→21:58)
[2023-01-15] MEDS: DIGOXIN 0.125 MG TABLET PO SCH (10:51)
[2023-01-15] MEDS: ASPIRIN COATED 81 MG TABLET.EC PO SCH (10:51)
[2023-01-15] MEDS: SACUBITRIL/VALSARTAN 24 MG-26 MG TABLET PO SCH ×2 (10:51→22:01)
[2023-01-15] MEDS: METOPROLOL TARTRATE 25 MG TABLET (FP) PO SCH (10:51)
[2023-01-15] MEDS: DEXAMETHASONE SOD PHOSPHATE 10 MG/1 ML VIAL IVPUSH SCH (10:51)
[2023-01-15] MEDS: NAPH,MB-DB/K PH,MBDB POWDER PACKET PO SCH ×2 (10:51→22:01)
[2023-01-15] MEDS: REMDESIVIR 100 MG in SODIUM CHLORIDE 250 ML IVPB SCH (17:12)
[2023-01-15] MEDS: AMINO ACIDS/PROTEIN HYDROLYS 30 ML LIQUID.PKT PO SCH (18:33)
[2023-01-15] MEDS: ASCORBIC ACID 250 MG TABLET (FP) PO SCH (22:01)
[2023-01-15] MEDS: METOPROLOL TARTRATE 50 MG TABLET (FP) PO SCH (22:01)
[2023-01-16] MEDS: PIPERACILLIN/TAZOB 3.375 GM 3.375 GM in DEXTROSE 5%-WATER - 50 ML IVPB SCH ×3 (01:34→17:10)
[2023-01-16 08:12] LABS: BASO % 0.2 % (0-2.0); HEMATOCRIT 30.5 % (35.4-49); HEMOGLOBIN 10.1 GM/dL (11.7-16.9); LYMPH % 6.2 % (8-40); MCH 36.2 pg (25.7-33.7); MCHC 33.1 g/dl (32.0-35.9); MEAN CELL VOLUME 109.3 fl (80-96); MEAN PLT VOLUME 9.3 fl (7.5-11.1); MONO % 2.9 % (3.8-10.2); NEUT % 90.7 % (42.8-82.8); PLATELET COUNT 374 10^3/uL (134-434); RBC 2.79 M/mm3 (4.00-5.60); RDW 15.4 % (11.9-15.9); WHITE BLOOD COUNT 11.1 K/mm3 (4.0-10.0)
[2023-01-16 08:19] LABS: POTASSIUM 4.3 mmol/L (3.5-5.1)
[2023-01-16 08:27] LABS: ALBUMIN 2.4 g/dl (3.4-5.0); CALCIUM 8.3 mg/dL (8.5-10.1); MAGNESIUM 2.2 mg/dL (1.8-2.4)
[2023-01-16 08:31] LABS: BLOOD UREA NITROGEN 29.4 mg/dL (7-18)
[2023-01-16 08:32] LABS: CREATININE 0.9 mg/dL (0.55-1.3); PHOSPHOROUS 2.6 mg/dL (2.5-4.9)
[2023-01-16 08:34] LABS: BILIRUBIN,TOTAL 0.6 mg/dL (0.2-1); TOT PROT 5.4 g/dl (6.4-8.2)
[2023-01-16] MEDS: SACUBITRIL/VALSARTAN 24 MG-26 MG TABLET PO SCH ×2 (10:10→21:41)
[2023-01-16] MEDS: AMINO ACIDS/PROTEIN HYDROLYS 30 ML LIQUID.PKT PO SCH ×3 (10:10→17:09)
[2023-01-16] MEDS: TAMSULOSIN HCL 0.4 MG CAP PO SCH (10:10)
[2023-01-16] MEDS: METOPROLOL TARTRATE 50 MG TABLET (FP) PO SCH ×2 (10:10→21:41)
[2023-01-16] MEDS: URSODIOL 300 MG CAPSULE PO SCH ×2 (10:10→21:38)
[2023-01-16] MEDS: ASPIRIN COATED 81 MG TABLET.EC PO SCH (10:11)
[2023-01-16] MEDS: ASCORBIC ACID 250 MG TABLET (FP) PO SCH ×2 (10:11→21:41)
[2023-01-16] MEDS: NAPH,MB-DB/K PH,MBDB POWDER PACKET PO SCH (10:11)
[2023-01-16] MEDS: DEXAMETHASONE SOD PHOSPHATE 10 MG/1 ML VIAL IVPUSH SCH (10:12)
[2023-01-16] MEDS: DIGOXIN 0.125 MG TABLET PO SCH (10:17)
[2023-01-16] MEDS: MULTIVITAMINS (DAILY MVI) TABLET (FP) PO SCH (10:17)
[2023-01-16 10:40] LABS: ANISOCYTOSIS 2+; MACROCYTOSIS 0; OVALOCYTE 1+
[2023-01-16] MEDS: oxyCODONE HCL 5 MG TABLET PO PRN ×2 (14:27→21:39)
[2023-01-16] MEDS: REMDESIVIR 100 MG in SODIUM CHLORIDE 250 ML IVPB SCH (14:30)
[2023-01-16] MEDS: APIXABAN 5 MG TABLET PO SCH (21:41)
[2023-01-17] MEDS: PIPERACILLIN/TAZOB 3.375 GM 3.375 GM in DEXTROSE 5%-WATER - 50 ML IVPB SCH ×3 (01:06→17:08)
[2023-01-17] MEDS: oxyCODONE HCL 5 MG TABLET PO PRN ×3 (03:34→18:57)
[2023-01-17] MEDS ORDERED: ACETAMINOPHEN 1000 MG/100 ML BAG IVPB ONE (06:52)
[2023-01-17] MEDS: AMINO ACIDS/PROTEIN HYDROLYS 30 ML LIQUID.PKT PO SCH ×3 (08:52→17:08)
[2023-01-17] MEDS: TAMSULOSIN HCL 0.4 MG CAP PO SCH (08:52)
[2023-01-17] MEDS: MULTIVITAMINS (DAILY MVI) TABLET (FP) PO SCH (10:04)
[2023-01-17] MEDS: APIXABAN 5 MG TABLET PO SCH ×2 (10:04→21:18)
[2023-01-17] MEDS: ASPIRIN COATED 81 MG TABLET.EC PO SCH (10:04)
[2023-01-17] MEDS: DIGOXIN 0.125 MG TABLET PO SCH (10:04)
[2023-01-17] MEDS: SACUBITRIL/VALSARTAN 24 MG-26 MG TABLET PO SCH ×2 (10:04→21:18)
[2023-01-17] MEDS: URSODIOL 300 MG CAPSULE PO SCH ×2 (10:04→21:18)
[2023-01-17] MEDS: DEXAMETHASONE SOD PHOSPHATE 10 MG/1 ML VIAL IVPUSH SCH (10:04)
[2023-01-17] MEDS: METOPROLOL TARTRATE 50 MG TABLET (FP) PO SCH ×2 (10:05→21:18)
[2023-01-17] MEDS: ASCORBIC ACID 250 MG TABLET (FP) PO SCH ×2 (10:05→21:18)
[2023-01-17 12:15] LABS: BASO % 0.2 % (0-2.0); HEMATOCRIT 29.9 % (35.4-49); HEMOGLOBIN 9.7 GM/dL (11.7-16.9); LYMPH % 6.1 % (8-40); MCH 34.7 pg (25.7-33.7); MCHC 32.3 g/dl (32.0-35.9); MEAN CELL VOLUME 107.5 fl (80-96); MEAN PLT VOLUME 8.7 fl (7.5-11.1); MONO % 4.7 % (3.8-10.2); PLATELET COUNT 400 10^3/uL (134-434); RBC 2.78 M/mm3 (4.00-5.60); RDW 15.4 % (11.9-15.9); WHITE BLOOD COUNT 13.4 K/mm3 (4.0-10.0)
[2023-01-17 12:32] LABS: POTASSIUM 4.2 mmol/L (3.5-5.1)
[2023-01-17 12:34] LABS: CALCIUM 8.7 mg/dL (8.5-10.1)
[2023-01-17 12:35] LABS: ALBUMIN 2.3 g/dl (3.4-5.0); MAGNESIUM 2.2 mg/dL (1.8-2.4)
[2023-01-17 12:38] LABS: CREATININE 0.9 mg/dL (0.55-1.3); PHOSPHOROUS 3.5 mg/dL (2.5-4.9)
[2023-01-17 12:39] LABS: BILIRUBIN,TOTAL 0.6 mg/dL (0.2-1)
[2023-01-18] MEDS: PIPERACILLIN/TAZOB 3.375 GM 3.375 GM in DEXTROSE 5%-WATER - 50 ML IVPB SCH ×3 (02:25→17:22)
[2023-01-18 08:06] LABS: BASO % 0.1 % (0-2.0); HEMATOCRIT 31.1 % (35.4-49); HEMOGLOBIN 10.3 GM/dL (11.7-16.9); LYMPH % 5.3 % (8-40); MCHC 33.1 g/dl (32.0-35.9); MEAN CELL VOLUME 108.8 fl (80-96); MEAN PLT VOLUME 8.7 fl (7.5-11.1); MONO % 4.8 % (3.8-10.2); NEUT % 89.8 % (42.8-82.8); PLATELET COUNT 404 10^3/uL (134-434); RBC 2.86 M/mm3 (4.00-5.60); RDW 15.6 % (11.9-15.9); WHITE BLOOD COUNT 14.9 K/mm3 (4.0-10.0)
[2023-01-18 08:23] LABS: POTASSIUM 4.4 mmol/L (3.5-5.1)
[2023-01-18 08:26] LABS: ALBUMIN 2.4 g/dl (3.4-5.0)
[2023-01-18 08:27] LABS: BLOOD UREA NITROGEN 36.9 mg/dL (7-18)
[2023-01-18 08:29] LABS: CREATININE 0.9 mg/dL (0.55-1.3); PHOSPHOROUS 3.9 mg/dL (2.5-4.9)
[2023-01-18 08:31] LABS: BILIRUBIN,TOTAL 0.4 mg/dL (0.2-1); TOT PROT 5.3 g/dl (6.4-8.2)
[2023-01-18] MEDS: DEXAMETHASONE SOD PHOSPHATE 10 MG/1 ML VIAL IVPUSH SCH (09:29)
[2023-01-18] MEDS: DIGOXIN 0.125 MG TABLET PO SCH (09:30)
[2023-01-18] MEDS: METOPROLOL TARTRATE 50 MG TABLET (FP) PO SCH ×2 (09:31→21:41)
[2023-01-18] MEDS: URSODIOL 300 MG CAPSULE PO SCH ×2 (09:31→21:41)
[2023-01-18] MEDS: ASCORBIC ACID 250 MG TABLET (FP) PO SCH ×2 (09:31→21:42)
[2023-01-18] MEDS: MULTIVITAMINS (DAILY MVI) TABLET (FP) PO SCH (09:32)
[2023-01-18] MEDS: SACUBITRIL/VALSARTAN 24 MG-26 MG TABLET PO SCH ×2 (09:32→21:41)
[2023-01-18] MEDS: APIXABAN 5 MG TABLET PO SCH ×2 (09:32→21:41)
[2023-01-18] MEDS: TAMSULOSIN HCL 0.4 MG CAP PO SCH (09:32)
[2023-01-18] MEDS: AMINO ACIDS/PROTEIN HYDROLYS 30 ML LIQUID.PKT PO SCH ×3 (09:32→17:22)
[2023-01-18] MEDS: ASPIRIN COATED 81 MG TABLET.EC PO SCH (09:32)
[2023-01-18] MEDS: oxyCODONE HCL 5 MG TABLET PO PRN (17:20)
[2023-01-19] MEDS: PIPERACILLIN/TAZOB 3.375 GM 3.375 GM in DEXTROSE 5%-WATER - 50 ML IVPB SCH ×3 (01:22→17:14)
[2023-01-19] MEDS: oxyCODONE HCL 5 MG TABLET PO PRN ×3 (02:58→22:39)
[2023-01-19] MEDS: AMINO ACIDS/PROTEIN HYDROLYS 30 ML LIQUID.PKT PO SCH ×3 (10:09→17:14)
[2023-01-19] MEDS: TAMSULOSIN HCL 0.4 MG CAP PO SCH (10:10)
[2023-01-19] MEDS: URSODIOL 300 MG CAPSULE PO SCH ×2 (10:10→22:38)
[2023-01-19] MEDS: METOPROLOL TARTRATE 50 MG TABLET (FP) PO SCH ×2 (10:10→22:39)
[2023-01-19] MEDS: SACUBITRIL/VALSARTAN 24 MG-26 MG TABLET PO SCH ×2 (10:10→22:38)
[2023-01-19] MEDS: ASPIRIN COATED 81 MG TABLET.EC PO SCH (10:10)
[2023-01-19] MEDS: DEXAMETHASONE SOD PHOSPHATE 10 MG/1 ML VIAL IVPUSH SCH (10:11)
[2023-01-19] MEDS: MULTIVITAMINS (DAILY MVI) TABLET (FP) PO SCH (10:12)
[2023-01-19] MEDS: DIGOXIN 0.125 MG TABLET PO SCH (10:12)
[2023-01-19] MEDS: ASCORBIC ACID 250 MG TABLET (FP) PO SCH ×2 (10:15→22:41)
[2023-01-19] MEDS ORDERED: ALBUTEROL SO4 HFA INHALER IH PRN (18:45)
[2023-01-20] MEDS: PIPERACILLIN/TAZOB 3.375 GM 3.375 GM in DEXTROSE 5%-WATER - 50 ML IVPB SCH ×3 (02:01→17:26)
[2023-01-20] MEDS: oxyCODONE HCL 5 MG TABLET PO PRN ×3 (04:52→17:25)
[2023-01-20] MEDS: METOPROLOL TARTRATE 5 MG/5 ML VIAL IVPUSH PRN (04:52)
[2023-01-20 10:22] LABS: HEMATOCRIT 32.5 % (35.4-49); HEMOGLOBIN 10.6 GM/dL (11.7-16.9); MCH 35.8 pg (25.7-33.7); MCHC 32.6 g/dl (32.0-35.9); MEAN CELL VOLUME 109.6 fl (80-96); MEAN PLT VOLUME 9.1 fl (7.5-11.1); PLATELET COUNT 312 10^3/uL (134-434); RBC 2.97 M/mm3 (4.00-5.60); RDW 15.5 % (11.9-15.9); WHITE BLOOD COUNT 21.4 K/mm3 (4.0-10.0)
[2023-01-20] MEDS: DEXAMETHASONE SOD PHOSPHATE 10 MG/1 ML VIAL IVPUSH SCH (10:23)
[2023-01-20] MEDS: TAMSULOSIN HCL 0.4 MG CAP PO SCH (10:23)
[2023-01-20] MEDS: AMINO ACIDS/PROTEIN HYDROLYS 30 ML LIQUID.PKT PO SCH ×3 (10:23→17:25)
[2023-01-20] MEDS: URSODIOL 300 MG CAPSULE PO SCH ×2 (10:29→22:57)
[2023-01-20] MEDS: MULTIVITAMINS (DAILY MVI) TABLET (FP) PO SCH (10:29)
[2023-01-20] MEDS: ASPIRIN COATED 81 MG TABLET.EC PO SCH (10:29)
[2023-01-20] MEDS: METOPROLOL TARTRATE 50 MG TABLET (FP) PO SCH ×2 (10:29→22:57)
[2023-01-20] MEDS: ASCORBIC ACID 250 MG TABLET (FP) PO SCH (10:29)
[2023-01-20] MEDS: ENOXAPARIN NA (PORCINE) 80 MG/0.8 ML DISP.SYRIN SQ SCH ×2 (10:29→22:58)
[2023-01-20] MEDS: SACUBITRIL/VALSARTAN 24 MG-26 MG TABLET PO SCH ×2 (10:29→22:57)
[2023-01-20] MEDS: DIGOXIN 0.125 MG TABLET PO SCH (10:29)
[2023-01-20 11:14] LABS: ANISOCYTOSIS 1+; MACROCYTOSIS 0
[2023-01-20 12:29] LABS: POTASSIUM 4.4 mmol/L (3.5-5.1)
[2023-01-20 12:36] LABS: CALCIUM 8.4 mg/dL (8.5-10.1)
[2023-01-20 12:37] LABS: ALBUMIN 2.4 g/dl (3.4-5.0); BLOOD UREA NITROGEN 33.6 mg/dL (7-18); CREATININE 0.9 mg/dL (0.55-1.3); MAGNESIUM 2.2 mg/dL (1.8-2.4); PHOSPHOROUS 3.5 mg/dL (2.5-4.9)
[2023-01-20 12:38] LABS: BILIRUBIN,TOTAL 0.6 mg/dL (0.2-1)
[2023-01-20 12:39] LABS: TOT PROT 5.2 g/dl (6.4-8.2)
[2023-01-20] MEDS: LACTOBACILLUS ACIDOPHILUS 1 TABLET PO SCH ×2 (12:41→22:57)
[2023-01-21] MEDS: PIPERACILLIN/TAZOB 3.375 GM 3.375 GM in DEXTROSE 5%-WATER - 50 ML IVPB SCH ×3 (01:36→13:15)
[2023-01-21 07:40] LABS: HEMATOCRIT 31.5 % (35.4-49); HEMOGLOBIN 10.3 GM/dL (11.7-16.9); MCH 35.7 pg (25.7-33.7); MCHC 32.6 g/dl (32.0-35.9); MEAN CELL VOLUME 109.3 fl (80-96); MEAN PLT VOLUME 9.7 fl (7.5-11.1); PLATELET COUNT 262 10^3/uL (134-434); RBC 2.89 M/mm3 (4.00-5.60); RDW 15.5 % (11.9-15.9); WHITE BLOOD COUNT 14.6 K/mm3 (4.0-10.0)
[2023-01-21 08:01] LABS: POTASSIUM 4.3 mmol/L (3.5-5.1)
[2023-01-21 08:04] LABS: CALCIUM 8.4 mg/dL (8.5-10.1)
[2023-01-21 08:05] LABS: ALBUMIN 2.4 g/dl (3.4-5.0); BLOOD UREA NITROGEN 40.2 mg/dL (7-18); MAGNESIUM 2.3 mg/dL (1.8-2.4)
[2023-01-21 08:08] LABS: CREATININE 0.9 mg/dL (0.55-1.3); PHOSPHOROUS 3.5 mg/dL (2.5-4.9)
[2023-01-21 08:09] LABS: BILIRUBIN,TOTAL 0.8 mg/dL (0.2-1)
[2023-01-21 08:44] LABS: ANISOCYTOSIS 2+; MACROCYTOSIS 2+
[2023-01-21] MEDS: AMINO ACIDS/PROTEIN HYDROLYS 30 ML LIQUID.PKT PO SCH ×3 (10:10→17:34)
[2023-01-21] MEDS: ENOXAPARIN NA (PORCINE) 80 MG/0.8 ML DISP.SYRIN SQ SCH ×2 (10:10→21:23)
[2023-01-21] MEDS: TAMSULOSIN HCL 0.4 MG CAP PO SCH (10:16)
[2023-01-21] MEDS: METOPROLOL TARTRATE 50 MG TABLET (FP) PO SCH ×2 (10:16→21:23)
[2023-01-21] MEDS: SACUBITRIL/VALSARTAN 24 MG-26 MG TABLET PO SCH ×2 (10:16→21:23)
[2023-01-21] MEDS: ASPIRIN COATED 81 MG TABLET.EC PO SCH (10:16)
[2023-01-21] MEDS: URSODIOL 300 MG CAPSULE PO SCH ×2 (10:16→21:23)
[2023-01-21] MEDS: oxyCODONE HCL 5 MG TABLET PO PRN ×2 (10:17→17:34)
[2023-01-21] MEDS: MULTIVITAMINS (DAILY MVI) TABLET (FP) PO SCH (10:18)
[2023-01-21] MEDS: DIGOXIN 0.125 MG TABLET PO SCH (10:18)
[2023-01-21] MEDS: DEXAMETHASONE SOD PHOSPHATE 10 MG/1 ML VIAL IVPUSH SCH (10:18)
[2023-01-21] MEDS: LACTOBACILLUS ACIDOPHILUS 1 TABLET PO SCH ×2 (10:19→21:23)
[2023-01-22] MEDS: oxyCODONE HCL 5 MG TABLET PO PRN ×2 (06:07→17:34)
[2023-01-22 09:14] LABS: MCH 35.9 pg (25.7-33.7); MCHC 33.4 g/dl (32.0-35.9); MEAN CELL VOLUME 107.2 fl (80-96); MEAN PLT VOLUME 9.7 fl (7.5-11.1); PLATELET COUNT 225 10^3/uL (134-434); POTASSIUM 4.4 mmol/L (3.5-5.1); RBC 3.08 M/mm3 (4.00-5.60); RDW 15.8 % (11.9-15.9); WHITE BLOOD COUNT 16.1 K/mm3 (4.0-10.0)
[2023-01-22 09:19] LABS: ALBUMIN 2.5 g/dl (3.4-5.0); BLOOD UREA NITROGEN 41.3 mg/dL (7-18); CALCIUM 8.7 mg/dL (8.5-10.1)
[2023-01-22 09:23] LABS: CREATININE 0.9 mg/dL (0.55-1.3)
[2023-01-22 09:24] LABS: BILIRUBIN,TOTAL 0.5 mg/dL (0.2-1); TOT PROT 5.2 g/dl (6.4-8.2)
[2023-01-22 10:08] LABS: ANISOCYTOSIS 1+; MACROCYTOSIS 0
[2023-01-22] MEDS: MULTIVITAMINS (DAILY MVI) TABLET (FP) PO SCH (10:11)
[2023-01-22] MEDS: SACUBITRIL/VALSARTAN 24 MG-26 MG TABLET PO SCH ×2 (10:11→22:02)
[2023-01-22] MEDS: TAMSULOSIN HCL 0.4 MG CAP PO SCH (10:11)
[2023-01-22] MEDS: METOPROLOL TARTRATE 50 MG TABLET (FP) PO SCH ×2 (10:11→22:02)
[2023-01-22] MEDS: ASPIRIN COATED 81 MG TABLET.EC PO SCH (10:11)
[2023-01-22] MEDS: ENOXAPARIN NA (PORCINE) 80 MG/0.8 ML DISP.SYRIN SQ SCH ×2 (10:11→22:03)
[2023-01-22] MEDS: URSODIOL 300 MG CAPSULE PO SCH ×2 (10:11→22:03)
[2023-01-22] MEDS: AMINO ACIDS/PROTEIN HYDROLYS 30 ML LIQUID.PKT PO SCH ×3 (10:12→17:35)
[2023-01-22] MEDS: LACTOBACILLUS ACIDOPHILUS 1 TABLET PO SCH ×2 (10:15→22:02)
[2023-01-22] MEDS: DEXAMETHASONE SOD PHOSPHATE 10 MG/1 ML VIAL IVPUSH SCH (10:15)
[2023-01-22] MEDS: DIGOXIN 0.125 MG TABLET PO SCH (10:21)
[2023-01-23 07:09] LABS: HEMATOCRIT 31.9 % (35.4-49); HEMOGLOBIN 10.4 GM/dL (11.7-16.9); MCH 35.7 pg (25.7-33.7); MCHC 32.6 g/dl (32.0-35.9); MEAN CELL VOLUME 109.3 fl (80-96); MEAN PLT VOLUME 10.2 fl (7.5-11.1); PLATELET COUNT 177 10^3/uL (134-434); RBC 2.91 M/mm3 (4.00-5.60); WHITE BLOOD COUNT 11.6 K/mm3 (4.0-10.0)
[2023-01-23 07:34] LABS: POTASSIUM 4.7 mmol/L (3.5-5.1)
[2023-01-23 07:39] LABS: BLOOD UREA NITROGEN 42.1 mg/dL (7-18); CALCIUM 8.7 mg/dL (8.5-10.1)
[2023-01-23 07:43] LABS: CREATININE 0.7 mg/dL (0.55-1.3)
[2023-01-23 08:41] LABS: ANISOCYTOSIS 2+; MACROCYTOSIS 2+
[2023-01-23] MEDS: AMINO ACIDS/PROTEIN HYDROLYS 30 ML LIQUID.PKT PO SCH ×3 (11:21→18:37)
[2023-01-23] MEDS: TAMSULOSIN HCL 0.4 MG CAP PO SCH (11:22)
[2023-01-23] MEDS: ASPIRIN COATED 81 MG TABLET.EC PO SCH (11:22)
[2023-01-23] MEDS: MULTIVITAMINS (DAILY MVI) TABLET (FP) PO SCH (11:22)
[2023-01-23] MEDS: LACTOBACILLUS ACIDOPHILUS 1 TABLET PO SCH ×2 (11:23→22:26)
[2023-01-23] MEDS: DEXAMETHASONE SOD PHOSPHATE 10 MG/1 ML VIAL IVPUSH SCH (11:23)
[2023-01-23] MEDS: URSODIOL 300 MG CAPSULE PO SCH ×2 (11:23→22:26)
[2023-01-23] MEDS: METOPROLOL TARTRATE 50 MG TABLET (FP) PO SCH ×2 (11:23→22:26)
[2023-01-23] MEDS: ENOXAPARIN NA (PORCINE) 80 MG/0.8 ML DISP.SYRIN SQ SCH ×2 (11:23→22:25)
[2023-01-23] MEDS: SACUBITRIL/VALSARTAN 24 MG-26 MG TABLET PO SCH ×2 (11:23→22:27)
[2023-01-23] MEDS: DIGOXIN 0.125 MG TABLET PO SCH (11:24)
[2023-01-23] MEDS: oxyCODONE HCL 5 MG TABLET PO PRN ×2 (15:36→22:27)
[2023-01-24] MEDS: oxyCODONE HCL 5 MG TABLET PO PRN ×2 (05:44→16:03)
[2023-01-24] MEDS: TAMSULOSIN HCL 0.4 MG CAP PO SCH (08:52)
[2023-01-24] MEDS: AMINO ACIDS/PROTEIN HYDROLYS 30 ML LIQUID.PKT PO SCH ×3 (08:52→17:17)
[2023-01-24] MEDS: LACTOBACILLUS ACIDOPHILUS 1 TABLET PO SCH ×2 (11:25→22:08)
[2023-01-24] MEDS: ENOXAPARIN NA (PORCINE) 80 MG/0.8 ML DISP.SYRIN SQ SCH ×2 (11:25→22:08)
[2023-01-24] MEDS: MULTIVITAMINS (DAILY MVI) TABLET (FP) PO SCH (11:26)
[2023-01-24] MEDS: ASPIRIN COATED 81 MG TABLET.EC PO SCH (11:26)
[2023-01-24] MEDS: METOPROLOL TARTRATE 50 MG TABLET (FP) PO SCH ×2 (11:26→22:08)
[2023-01-24] MEDS: URSODIOL 300 MG CAPSULE PO SCH ×2 (11:26→22:08)
[2023-01-24] MEDS: SACUBITRIL/VALSARTAN 24 MG-26 MG TABLET PO SCH ×2 (11:26→22:08)
[2023-01-24] MEDS: DIGOXIN 0.125 MG TABLET PO SCH (11:26)
[2023-01-25] MEDS: oxyCODONE HCL 5 MG TABLET PO PRN ×3 (04:31→18:36)
[2023-01-25 07:18] LABS: HEMATOCRIT 33.9 % (35.4-49); MCH 35.9 pg (25.7-33.7); MCHC 32.5 g/dl (32.0-35.9); MEAN CELL VOLUME 110.3 fl (80-96); MEAN PLT VOLUME 11.2 fl (7.5-11.1); PLATELET COUNT 152 10^3/uL (134-434); RBC 3.08 M/mm3 (4.00-5.60); RDW 16.3 % (11.9-15.9); WHITE BLOOD COUNT 10.3 K/mm3 (4.0-10.0)
[2023-01-25] MEDS ORDERED: SODIUM CHLORIDE 1,000 ML IV SCH (07:45)
[2023-01-25 07:52] LABS: CALCIUM 8.6 mg/dL (8.5-10.1)
[2023-01-25 07:53] LABS: BLOOD UREA NITROGEN 47.7 mg/dL (7-18)
[2023-01-25 07:57] LABS: CREATININE 0.9 mg/dL (0.55-1.3)
[2023-01-25] MEDS: AMINO ACIDS/PROTEIN HYDROLYS 30 ML LIQUID.PKT PO SCH ×3 (08:27→17:18)
[2023-01-25] MEDS: TAMSULOSIN HCL 0.4 MG CAP PO SCH (08:27)
[2023-01-25 09:01] LABS: ANISOCYTOSIS 2+; MACROCYTOSIS 2+
[2023-01-25] MEDS: MULTIVITAMINS (DAILY MVI) TABLET (FP) PO SCH (09:46)
[2023-01-25] MEDS: DIGOXIN 0.125 MG TABLET PO SCH (09:46)
[2023-01-25] MEDS: LACTOBACILLUS ACIDOPHILUS 1 TABLET PO SCH ×2 (09:46→23:08)
[2023-01-25] MEDS: ASPIRIN COATED 81 MG TABLET.EC PO SCH (09:47)
[2023-01-25] MEDS: SACUBITRIL/VALSARTAN 24 MG-26 MG TABLET PO SCH ×2 (09:47→23:09)
[2023-01-25] MEDS: URSODIOL 300 MG CAPSULE PO SCH ×2 (09:47→23:08)
[2023-01-25] MEDS: METOPROLOL TARTRATE 50 MG TABLET (FP) PO SCH ×2 (09:48→23:14)
[2023-01-25] MEDS: ENOXAPARIN NA (PORCINE) 80 MG/0.8 ML DISP.SYRIN SQ SCH ×2 (09:48→23:10)
[2023-01-25] MEDS ORDERED: SODIUM CHLORIDE 500 ML IV STA (22:06)
[2023-01-25] MEDS ORDERED: DIGOXIN 0.5 MG/2 ML AMPUL IVPUSH ONE (22:08)
[2023-01-26] MEDS ORDERED: DIGOXIN 0.5 MG/2 ML AMPUL IVPUSH ONE (04:00)
[2023-01-26] MEDS: TAMSULOSIN HCL 0.4 MG CAP PO SCH (09:25)
[2023-01-26] MEDS: AMINO ACIDS/PROTEIN HYDROLYS 30 ML LIQUID.PKT PO SCH ×3 (09:25→16:59)
[2023-01-26] MEDS: MULTIVITAMINS (DAILY MVI) TABLET (FP) PO SCH (09:55)
[2023-01-26] MEDS: URSODIOL 300 MG CAPSULE PO SCH ×2 (09:55→21:02)
[2023-01-26] MEDS: ASPIRIN COATED 81 MG TABLET.EC PO SCH (09:55)
[2023-01-26] MEDS: LACTOBACILLUS ACIDOPHILUS 1 TABLET PO SCH ×2 (09:55→21:02)
[2023-01-26] MEDS: ENOXAPARIN NA (PORCINE) 80 MG/0.8 ML DISP.SYRIN SQ SCH ×2 (09:57→21:02)
[2023-01-26] MEDS: FINASTERIDE 5 MG TABLET (FP) PO SCH (10:02)
[2023-01-26] MEDS: METOPROLOL TARTRATE 50 MG TABLET (FP) PO SCH (10:13)
[2023-01-26] MEDS: DIGOXIN 0.125 MG TABLET PO SCH (10:14)
[2023-01-26] MEDS ORDERED: SODIUM CHLORIDE 0.9% 500 ML INFUS.BAG IV ONE (11:19)
[2023-01-26] MEDS: METOPROLOL TARTRATE 25 MG TABLET (FP) PO SCH ×2 (13:43→20:54)
[2023-01-26] MEDS: oxyCODONE HCL 5 MG TABLET PO PRN (17:23)
[2023-01-26] MEDS: BACITRACIN/POLYMYXIN B SULFATE 15 GM TUBE TP SCH (20:23)
[2023-01-27] MEDS: METOPROLOL TARTRATE 25 MG TABLET (FP) PO SCH ×3 (04:36→20:50)
[2023-01-27] MEDS: oxyCODONE HCL 5 MG TABLET PO PRN (05:22)
[2023-01-27 07:57] LABS: HEMATOCRIT 24.7 % (35.4-49); HEMOGLOBIN 8.1 GM/dL (11.7-16.9); MCH 35.5 pg (25.7-33.7); MCHC 32.9 g/dl (32.0-35.9); MEAN CELL VOLUME 107.8 fl (80-96); MEAN PLT VOLUME 10.9 fl (7.5-11.1); PLATELET COUNT 100 10^3/uL (134-434); RBC 2.29 M/mm3 (4.00-5.60); RDW 16.6 % (11.9-15.9)
[2023-01-27] MEDS: TAMSULOSIN HCL 0.4 MG CAP PO SCH (08:17)
[2023-01-27 08:18] LABS: POTASSIUM 4.2 mmol/L (3.5-5.1)
[2023-01-27 08:19] LABS: CALCIUM 7.9 mg/dL (8.5-10.1)
[2023-01-27] MEDS: AMINO ACIDS/PROTEIN HYDROLYS 30 ML LIQUID.PKT PO SCH ×3 (08:19→17:24)
[2023-01-27 08:21] LABS: BLOOD UREA NITROGEN 40.1 mg/dL (7-18); MAGNESIUM 2.4 mg/dL (1.8-2.4)
[2023-01-27 08:23] LABS: CREATININE 0.7 mg/dL (0.55-1.3)
[2023-01-27] MEDS: MULTIVITAMINS (DAILY MVI) TABLET (FP) PO SCH (09:26)
[2023-01-27] MEDS: DIGOXIN 0.125 MG TABLET PO SCH (09:26)
[2023-01-27] MEDS: URSODIOL 300 MG CAPSULE PO SCH ×2 (09:26→22:35)
[2023-01-27] MEDS: FINASTERIDE 5 MG TABLET (FP) PO SCH (09:26)
[2023-01-27] MEDS: LACTOBACILLUS ACIDOPHILUS 1 TABLET PO SCH ×2 (09:26→22:35)
[2023-01-27] MEDS: ASPIRIN COATED 81 MG TABLET.EC PO SCH (09:27)
[2023-01-27] MEDS: ENOXAPARIN NA (PORCINE) 80 MG/0.8 ML DISP.SYRIN SQ SCH (09:27)
[2023-01-27] MEDS: BACITRACIN/POLYMYXIN B SULFATE 15 GM TUBE TP SCH (09:28)
[2023-01-27 18:48] LABS: BASO % 0.3 % (0-2.0); EOS % 1.5 % (0-4.5); HEMATOCRIT 22.4 % (35.4-49); HEMOGLOBIN 7.3 GM/dL (11.7-16.9); LYMPH % 9.1 % (8-40); MCH 34.9 pg (25.7-33.7); MCHC 32.4 g/dl (32.0-35.9); MEAN CELL VOLUME 107.6 fl (80-96); MEAN PLT VOLUME 10.6 fl (7.5-11.1); MONO % 5.6 % (3.8-10.2); NEUT % 83.5 % (42.8-82.8); PLATELET COUNT 108 10^3/uL (134-434); RBC 2.08 M/mm3 (4.00-5.60); RDW 16.6 % (11.9-15.9); WHITE BLOOD COUNT 7.6 K/mm3 (4.0-10.0)
[2023-01-28] MEDS: METOPROLOL TARTRATE 25 MG TABLET (FP) PO SCH ×3 (03:48→20:12)
[2023-01-28 07:51] LABS: BASO % 0.4 % (0-2.0); EOS % 1.1 % (0-4.5); LYMPH % 12.9 % (8-40); MCH 34.3 pg (25.7-33.7); MCHC 33.1 g/dl (32.0-35.9); MEAN CELL VOLUME 103.6 fl (80-96); MEAN PLT VOLUME 11.3 fl (7.5-11.1); MONO % 5.5 % (3.8-10.2); NEUT % 80.1 % (42.8-82.8); PLATELET COUNT 99 10^3/uL (134-434); RBC 2.51 M/mm3 (4.00-5.60); RDW 19.8 % (11.9-15.9); WHITE BLOOD COUNT 8.5 K/mm3 (4.0-10.0)
[2023-01-28 07:55] LABS: HEMOGLOBIN 8.6 GM/dL (11.7-16.9)
[2023-01-28 08:09] LABS: POTASSIUM 4.1 mmol/L (3.5-5.1)
[2023-01-28] MEDS: AMINO ACIDS/PROTEIN HYDROLYS 30 ML LIQUID.PKT PO SCH ×3 (08:12→18:37)
[2023-01-28] MEDS: TAMSULOSIN HCL 0.4 MG CAP PO SCH (08:12)
[2023-01-28 08:13] LABS: BLOOD UREA NITROGEN 41.3 mg/dL (7-18)
[2023-01-28 08:14] LABS: CALCIUM 7.9 mg/dL (8.5-10.1)
[2023-01-28 08:16] LABS: CREATININE 0.7 mg/dL (0.55-1.3)
[2023-01-28] MEDS: URSODIOL 300 MG CAPSULE PO SCH ×2 (10:23→21:54)
[2023-01-28] MEDS: ASPIRIN COATED 81 MG TABLET.EC PO SCH (10:23)
[2023-01-28] MEDS: MULTIVITAMINS (DAILY MVI) TABLET (FP) PO SCH (10:23)
[2023-01-28] MEDS: DIGOXIN 0.125 MG TABLET PO SCH (10:23)
[2023-01-28] MEDS: BACITRACIN/POLYMYXIN B SULFATE 15 GM TUBE TP SCH (10:24)
[2023-01-28] MEDS: LACTOBACILLUS ACIDOPHILUS 1 TABLET PO SCH ×2 (10:24→21:54)
[2023-01-28] MEDS: FINASTERIDE 5 MG TABLET (FP) PO SCH (10:24)
[2023-01-28] MEDS: ENOXAPARIN NA (PORCINE) 80 MG/0.8 ML DISP.SYRIN SQ SCH (21:55)
[2023-01-29] MEDS: oxyCODONE HCL 5 MG TABLET PO PRN ×2 (04:47→14:29)
[2023-01-29] MEDS: METOPROLOL TARTRATE 25 MG TABLET (FP) PO SCH ×3 (04:47→20:00)
[2023-01-29] MEDS: AMINO ACIDS/PROTEIN HYDROLYS 30 ML LIQUID.PKT PO SCH ×3 (08:56→17:32)
[2023-01-29] MEDS: TAMSULOSIN HCL 0.4 MG CAP PO SCH (08:56)
[2023-01-29] MEDS: ENOXAPARIN NA (PORCINE) 80 MG/0.8 ML DISP.SYRIN SQ SCH ×2 (11:57→22:56)
[2023-01-29] MEDS: DIGOXIN 0.125 MG TABLET PO SCH (11:57)
[2023-01-29] MEDS: FINASTERIDE 5 MG TABLET (FP) PO SCH (11:58)
[2023-01-29] MEDS: LACTOBACILLUS ACIDOPHILUS 1 TABLET PO SCH ×2 (11:58→22:56)
[2023-01-29] MEDS: MULTIVITAMINS (DAILY MVI) TABLET (FP) PO SCH (11:58)
[2023-01-29] MEDS: URSODIOL 300 MG CAPSULE PO SCH ×2 (11:58→22:56)
[2023-01-29] MEDS: ASPIRIN COATED 81 MG TABLET.EC PO SCH (11:58)
[2023-01-29] MEDS: BACITRACIN/POLYMYXIN B SULFATE 15 GM TUBE TP SCH (11:59)
[2023-01-30] MEDS: METOPROLOL TARTRATE 25 MG TABLET (FP) PO SCH ×3 (03:54→20:04)
[2023-01-30 07:30] LABS: HEMATOCRIT 25.9 % (35.4-49); HEMOGLOBIN 8.8 GM/dL (11.7-16.9); MCH 34.8 pg (25.7-33.7); MEAN CELL VOLUME 102.4 fl (80-96); MEAN PLT VOLUME 10.3 fl (7.5-11.1); PLATELET COUNT 115 10^3/uL (134-434); RBC 2.53 M/mm3 (4.00-5.60); RDW 19.6 % (11.9-15.9); WHITE BLOOD COUNT 9.1 K/mm3 (4.0-10.0)
[2023-01-30 07:50] LABS: POTASSIUM 4.2 mmol/L (3.5-5.1)
[2023-01-30 08:00] LABS: ALBUMIN 2.3 g/dl (3.4-5.0)
[2023-01-30 08:01] LABS: BLOOD UREA NITROGEN 31.1 mg/dL (7-18); CALCIUM 7.9 mg/dL (8.5-10.1); MAGNESIUM 2.1 mg/dL (1.8-2.4)
[2023-01-30 08:02] LABS: CREATININE 0.6 mg/dL (0.55-1.3)
[2023-01-30 08:05] LABS: BILIRUBIN,TOTAL 0.7 mg/dL (0.2-1); TOT PROT 4.7 g/dl (6.4-8.2)
[2023-01-30 09:37] LABS: ANISOCYTOSIS 2+; MACROCYTOSIS 0; OVALOCYTE 2+; TEAR DROP CELLS 1+
[2023-01-30] MEDS: AMINO ACIDS/PROTEIN HYDROLYS 30 ML LIQUID.PKT PO SCH ×3 (10:43→18:03)
[2023-01-30] MEDS: MULTIVITAMINS (DAILY MVI) TABLET (FP) PO SCH (10:43)
[2023-01-30] MEDS: ENOXAPARIN NA (PORCINE) 80 MG/0.8 ML DISP.SYRIN SQ SCH ×2 (10:43→23:00)
[2023-01-30] MEDS: TAMSULOSIN HCL 0.4 MG CAP PO SCH (10:43)
[2023-01-30] MEDS: DIGOXIN 0.125 MG TABLET PO SCH (10:44)
[2023-01-30] MEDS: URSODIOL 300 MG CAPSULE PO SCH ×2 (10:44→23:00)
[2023-01-30] MEDS: ASPIRIN COATED 81 MG TABLET.EC PO SCH (10:44)
[2023-01-30] MEDS: FINASTERIDE 5 MG TABLET (FP) PO SCH (10:44)
[2023-01-30] MEDS: LACTOBACILLUS ACIDOPHILUS 1 TABLET PO SCH ×2 (10:44→23:00)
[2023-01-30] MEDS: oxyCODONE HCL 5 MG TABLET PO PRN (18:03)
[2023-01-30] MEDS: BACITRACIN/POLYMYXIN B SULFATE 15 GM TUBE TP SCH (18:11)
[2023-01-30] MEDS ORDERED: MUPIROCIN CA 2% TOPICAL CREAM 15 GM TUBE TP SCH (22:00)
[2023-01-31] MEDS: oxyCODONE HCL 5 MG TABLET PO PRN ×2 (00:37→17:57)
[2023-01-31] MEDS: METOPROLOL TARTRATE 25 MG TABLET (FP) PO SCH ×3 (05:08→20:14)
[2023-01-31 06:51] LABS: POTASSIUM 4.1 mmol/L (3.5-5.1)
[2023-01-31 06:53] LABS: CALCIUM 8.3 mg/dL (8.5-10.1)
[2023-01-31 06:55] LABS: ALBUMIN 2.4 g/dl (3.4-5.0); BLOOD UREA NITROGEN 31.7 mg/dL (7-18); MAGNESIUM 2.1 mg/dL (1.8-2.4)
[2023-01-31 06:56] LABS: CREATININE 0.7 mg/dL (0.55-1.3)
[2023-01-31 06:58] LABS: BILIRUBIN,TOTAL 0.6 mg/dL (0.2-1)
[2023-01-31 08:18] LABS: BASO % 1.5 % (0-2.0); EOS % 1.1 % (0-4.5); HEMATOCRIT 27.6 % (35.4-49); HEMOGLOBIN 8.8 GM/dL (11.7-16.9); LYMPH % 10.3 % (8-40); MCHC 31.7 g/dl (32.0-35.9); MEAN CELL VOLUME 107.1 fl (80-96); MEAN PLT VOLUME 10.6 fl (7.5-11.1); NEUT % 85.1 % (42.8-82.8); PLATELET COUNT 123 10^3/uL (134-434); RBC 2.58 M/mm3 (4.00-5.60); RDW 20.4 % (11.9-15.9); WHITE BLOOD COUNT 10.8 K/mm3 (4.0-10.0)
[2023-01-31 08:54] LABS: ANISOCYTOSIS 1+; MACROCYTOSIS 2+
[2023-01-31] MEDS: AMINO ACIDS/PROTEIN HYDROLYS 30 ML LIQUID.PKT PO SCH ×3 (09:00→17:44)
[2023-01-31] MEDS: TAMSULOSIN HCL 0.4 MG CAP PO SCH (09:59)
[2023-01-31] MEDS ORDERED: SODIUM CHLORIDE 1,000 ML IV SCH (10:00)
[2023-01-31] MEDS: LACTOBACILLUS ACIDOPHILUS 1 TABLET PO SCH ×2 (11:59→22:10)
[2023-01-31] MEDS: URSODIOL 300 MG CAPSULE PO SCH ×2 (11:59→22:10)
[2023-01-31] MEDS: MULTIVITAMINS (DAILY MVI) TABLET (FP) PO SCH (11:59)
[2023-01-31] MEDS: ASPIRIN COATED 81 MG TABLET.EC PO SCH (11:59)
[2023-01-31] MEDS: DIGOXIN 0.125 MG TABLET PO SCH (12:00)
[2023-01-31] MEDS: FINASTERIDE 5 MG TABLET (FP) PO SCH (12:00)
[2023-01-31] MEDS: ENOXAPARIN NA (PORCINE) 80 MG/0.8 ML DISP.SYRIN SQ SCH ×2 (12:00→22:10)
[2023-01-31] MEDS: MUPIROCIN CA 2% TOPICAL CREAM 15 GM TUBE TP SCH (12:00)
[2023-01-31] MEDS: BACITRACIN/POLYMYXIN B SULFATE 15 GM TUBE TP SCH (12:01)
[2023-02-01] MEDS: METOPROLOL TARTRATE 25 MG TABLET (FP) PO SCH ×4 (04:51→19:57)
[2023-02-01 07:14] LABS: HEMATOCRIT 24.4 % (35.4-49); MCH 34.8 pg (25.7-33.7); MCHC 32.9 g/dl (32.0-35.9); MEAN CELL VOLUME 105.8 fl (80-96); MEAN PLT VOLUME 10.7 fl (7.5-11.1); PLATELET COUNT 112 10^3/uL (134-434); RBC 2.31 M/mm3 (4.00-5.60)
[2023-02-01 07:36] LABS: POTASSIUM 4.3 mmol/L (3.5-5.1)
[2023-02-01 07:39] LABS: CALCIUM 7.6 mg/dL (8.5-10.1)
[2023-02-01 07:40] LABS: ALBUMIN 2.2 g/dl (3.4-5.0); BLOOD UREA NITROGEN 24.4 mg/dL (7-18)
[2023-02-01 07:42] LABS: CREATININE 0.6 mg/dL (0.55-1.3)
[2023-02-01 07:43] LABS: MAGNESIUM 2.2 mg/dL (1.8-2.4)
[2023-02-01 07:44] LABS: TOT PROT 4.6 g/dl (6.4-8.2)
[2023-02-01 08:38] LABS: ANISOCYTOSIS 0; MACROCYTOSIS 0
[2023-02-01] MEDS: AMINO ACIDS/PROTEIN HYDROLYS 30 ML LIQUID.PKT PO SCH ×3 (08:55→17:26)
[2023-02-01] MEDS: TAMSULOSIN HCL 0.4 MG CAP PO SCH (08:55)
[2023-02-01] MEDS: FINASTERIDE 5 MG TABLET (FP) PO SCH (10:55)
[2023-02-01] MEDS: DIGOXIN 0.125 MG TABLET PO SCH (10:55)
[2023-02-01] MEDS: MULTIVITAMINS (DAILY MVI) TABLET (FP) PO SCH (10:55)
[2023-02-01] MEDS: ASPIRIN COATED 81 MG TABLET.EC PO SCH (10:55)
[2023-02-01] MEDS: MUPIROCIN CA 2% TOPICAL CREAM 15 GM TUBE TP SCH (10:56)
[2023-02-01] MEDS: BACITRACIN/POLYMYXIN B SULFATE 15 GM TUBE TP SCH (10:56)
[2023-02-01] MEDS: URSODIOL 300 MG CAPSULE PO SCH ×2 (10:56→21:23)
[2023-02-01] MEDS: ENOXAPARIN NA (PORCINE) 80 MG/0.8 ML DISP.SYRIN SQ SCH (10:56)
[2023-02-01] MEDS: LACTOBACILLUS ACIDOPHILUS 1 TABLET PO SCH ×2 (10:56→21:22)
[2023-02-01] MEDS: oxyCODONE HCL 5 MG TABLET PO PRN ×2 (11:55→19:56)
[2023-02-02] MEDS: METOPROLOL TARTRATE 25 MG TABLET (FP) PO SCH ×3 (03:12→20:01)
[2023-02-02 07:13] LABS: INR 1.1 (0.83-1.09); PROTHROMBIN TIME (PATIENT) 12.7 SEC (9.7-13.0)
[2023-02-02 07:16] LABS: ACTIVATED PTT 32.3 SECONDS (25.2-36.5)
[2023-02-02 07:29] LABS: POTASSIUM 4.4 mmol/L (3.5-5.1)
[2023-02-02 07:31] LABS: BLOOD UREA NITROGEN 25.9 mg/dL (7-18)
[2023-02-02 07:32] LABS: ALBUMIN 2.3 g/dl (3.4-5.0)
[2023-02-02 07:35] LABS: CREATININE 0.7 mg/dL (0.55-1.3)
[2023-02-02 07:36] LABS: BILIRUBIN,TOTAL 0.4 mg/dL (0.2-1); TOT PROT 4.9 g/dl (6.4-8.2)
[2023-02-02 07:48] LABS: HEMATOCRIT 25.2 % (35.4-49); HEMOGLOBIN 8.4 GM/dL (11.7-16.9); MCH 34.9 pg (25.7-33.7); MCHC 33.4 g/dl (32.0-35.9); MEAN CELL VOLUME 104.5 fl (80-96); MEAN PLT VOLUME 9.7 fl (7.5-11.1); PLATELET COUNT 130 10^3/uL (134-434); RBC 2.41 M/mm3 (4.00-5.60); RDW 19.4 % (11.9-15.9); WHITE BLOOD COUNT 7.4 K/mm3 (4.0-10.0)
[2023-02-02] MEDS: TAMSULOSIN HCL 0.4 MG CAP PO SCH (08:01)
[2023-02-02] MEDS: AMINO ACIDS/PROTEIN HYDROLYS 30 ML LIQUID.PKT PO SCH ×4 (08:01→16:51)
[2023-02-02 09:19] LABS: ANISOCYTOSIS 0; MACROCYTOSIS 1+
[2023-02-02] MEDS: FINASTERIDE 5 MG TABLET (FP) PO SCH (10:23)
[2023-02-02] MEDS: DIGOXIN 0.125 MG TABLET PO SCH (10:24)
[2023-02-02] MEDS: URSODIOL 300 MG CAPSULE PO SCH ×2 (10:24→21:20)
[2023-02-02] MEDS: MULTIVITAMINS (DAILY MVI) TABLET (FP) PO SCH (10:24)
[2023-02-02] MEDS: LACTOBACILLUS ACIDOPHILUS 1 TABLET PO SCH ×2 (10:25→21:20)
[2023-02-02] MEDS: ASPIRIN COATED 81 MG TABLET.EC PO SCH (10:25)
[2023-02-02] MEDS: MUPIROCIN CA 2% TOPICAL CREAM 15 GM TUBE TP SCH (10:28)
[2023-02-02] MEDS: BACITRACIN/POLYMYXIN B SULFATE 15 GM TUBE TP SCH (10:29)
[2023-02-02] MEDS: oxyCODONE HCL 5 MG TABLET PO PRN (18:34)
[2023-02-03] MEDS: METOPROLOL TARTRATE 25 MG TABLET (FP) PO SCH ×3 (04:36→21:32)
[2023-02-03] MEDS: AMINO ACIDS/PROTEIN HYDROLYS 30 ML LIQUID.PKT PO SCH ×3 (07:53→17:33)
[2023-02-03] MEDS: TAMSULOSIN HCL 0.4 MG CAP PO SCH (08:24)
[2023-02-03] MEDS: ENOXAPARIN NA (PORCINE) 80 MG/0.8 ML DISP.SYRIN SQ SCH ×2 (10:08→21:33)
[2023-02-03] MEDS: FINASTERIDE 5 MG TABLET (FP) PO SCH (10:09)
[2023-02-03] MEDS: LACTOBACILLUS ACIDOPHILUS 1 TABLET PO SCH ×2 (10:09→21:33)
[2023-02-03] MEDS: DIGOXIN 0.125 MG TABLET PO SCH (10:09)
[2023-02-03] MEDS: ASPIRIN COATED 81 MG TABLET.EC PO SCH (10:10)
[2023-02-03] MEDS: URSODIOL 300 MG CAPSULE PO SCH ×2 (10:10→21:32)
[2023-02-03] MEDS: MULTIVITAMINS (DAILY MVI) TABLET (FP) PO SCH (10:10)
[2023-02-03] MEDS: BACITRACIN/POLYMYXIN B SULFATE 15 GM TUBE TP SCH (10:11)
[2023-02-03] MEDS: MUPIROCIN CA 2% TOPICAL CREAM 15 GM TUBE TP SCH (10:12)
[2023-02-03] MEDS: amLODIPine BESYLATE 5 MG TABLET (FP) PO SCH (10:31)
[2023-02-03] MEDS ORDERED: AMINO ACIDS 4.25%/D5W 1,000 ML IV SCH (16:15)
[2023-02-03] MEDS: NYSTATIN 500,000 UNITS/5 ML SUSPENSION PO SCH ×2 (17:33→23:20)
[2023-02-04] MEDS: METOPROLOL TARTRATE 25 MG TABLET (FP) PO SCH ×2 (04:02→12:59)
[2023-02-04] MEDS: NYSTATIN 500,000 UNITS/5 ML SUSPENSION PO SCH ×3 (05:45→17:33)
[2023-02-04] MEDS: oxyCODONE HCL 5 MG TABLET PO PRN ×2 (05:45→17:41)
[2023-02-04 07:56] LABS: HEMATOCRIT 26.6 % (35.4-49); HEMOGLOBIN 8.8 GM/dL (11.7-16.9); MCH 34.8 pg (25.7-33.7); MEAN CELL VOLUME 105.5 fl (80-96); MEAN PLT VOLUME 10.1 fl (7.5-11.1); PLATELET COUNT 162 10^3/uL (134-434); RBC 2.52 M/mm3 (4.00-5.60); RDW 19.7 % (11.9-15.9); WHITE BLOOD COUNT 7.1 K/mm3 (4.0-10.0)
[2023-02-04] MEDS: AMINO ACIDS/PROTEIN HYDROLYS 30 ML LIQUID.PKT PO SCH ×3 (08:03→17:33)
[2023-02-04] MEDS: TAMSULOSIN HCL 0.4 MG CAP PO SCH (08:03)
[2023-02-04 08:11] LABS: POTASSIUM 4.3 mmol/L (3.5-5.1)
[2023-02-04 08:18] LABS: ALBUMIN 2.4 g/dl (3.4-5.0); MAGNESIUM 2.3 mg/dL (1.8-2.4)
[2023-02-04 08:19] LABS: CALCIUM 8.3 mg/dL (8.5-10.1)
[2023-02-04 08:20] LABS: BLOOD UREA NITROGEN 33.8 mg/dL (7-18)
[2023-02-04 08:21] LABS: CREATININE 0.7 mg/dL (0.55-1.3)
[2023-02-04 08:22] LABS: BILIRUBIN,TOTAL 0.5 mg/dL (0.2-1); PHOSPHOROUS 3.2 mg/dL (2.5-4.9)
[2023-02-04 08:25] LABS: TOT PROT 5.1 g/dl (6.4-8.2)
[2023-02-04 09:39] LABS: ANISOCYTOSIS 2+; MACROCYTOSIS 2+
[2023-02-04] MEDS: amLODIPine BESYLATE 5 MG TABLET (FP) PO SCH (10:11)
[2023-02-04] MEDS: LACTOBACILLUS ACIDOPHILUS 1 TABLET PO SCH ×2 (10:11→22:10)
[2023-02-04] MEDS: MULTIVITAMINS (DAILY MVI) TABLET (FP) PO SCH (10:11)
[2023-02-04] MEDS: DIGOXIN 0.125 MG TABLET PO SCH (10:11)
[2023-02-04] MEDS: FINASTERIDE 5 MG TABLET (FP) PO SCH (10:12)
[2023-02-04] MEDS: URSODIOL 300 MG CAPSULE PO SCH ×2 (10:12→22:10)
[2023-02-04] MEDS: ASPIRIN COATED 81 MG TABLET.EC PO SCH (10:12)
[2023-02-04] MEDS: ENOXAPARIN NA (PORCINE) 80 MG/0.8 ML DISP.SYRIN SQ SCH ×2 (10:14→10:22)
[2023-02-04] MEDS: BACITRACIN/POLYMYXIN B SULFATE 15 GM TUBE TP SCH (10:16)
[2023-02-04] MEDS: MUPIROCIN CA 2% TOPICAL CREAM 15 GM TUBE TP SCH (10:16)
[2023-02-04] MEDS ORDERED: ACETAMINOPHEN 1000 MG/100 ML BAG IVPB ONE (21:49)
[2023-02-05] MEDS: oxyCODONE HCL 5 MG TABLET PO PRN ×2 (00:11→23:24)
[2023-02-05] MEDS: NYSTATIN 500,000 UNITS/5 ML SUSPENSION PO SCH ×5 (00:11→23:00)
[2023-02-05 07:33] LABS: HEMATOCRIT 28.2 % (35.4-49); HEMOGLOBIN 9.2 GM/dL (11.7-16.9); MCH 34.8 pg (25.7-33.7); MCHC 32.6 g/dl (32.0-35.9); MEAN CELL VOLUME 106.6 fl (80-96); MEAN PLT VOLUME 9.4 fl (7.5-11.1); PLATELET COUNT 167 10^3/uL (134-434); RBC 2.64 M/mm3 (4.00-5.60); RDW 19.7 % (11.9-15.9); WHITE BLOOD COUNT 6.8 K/mm3 (4.0-10.0)
[2023-02-05] MEDS: DIGOXIN 0.125 MG TABLET PO SCH ×2 (07:47→10:09)
[2023-02-05] MEDS: TAMSULOSIN HCL 0.4 MG CAP PO SCH (07:47)
[2023-02-05] MEDS: AMINO ACIDS/PROTEIN HYDROLYS 30 ML LIQUID.PKT PO SCH ×4 (07:54→17:10)
[2023-02-05 07:59] LABS: POTASSIUM 4.4 mmol/L (3.5-5.1)
[2023-02-05 08:06] LABS: CALCIUM 8.5 mg/dL (8.5-10.1)
[2023-02-05 08:07] LABS: ALBUMIN 2.4 g/dl (3.4-5.0); BLOOD UREA NITROGEN 33.8 mg/dL (7-18); MAGNESIUM 2.3 mg/dL (1.8-2.4)
[2023-02-05 08:08] LABS: CREATININE 0.6 mg/dL (0.55-1.3)
[2023-02-05 08:09] LABS: TOT PROT 5.1 g/dl (6.4-8.2)
[2023-02-05 08:10] LABS: BILIRUBIN,TOTAL 0.7 mg/dL (0.2-1); PHOSPHOROUS 3.6 mg/dL (2.5-4.9)
[2023-02-05 08:48] LABS: ANISOCYTOSIS 1+; MACROCYTOSIS 1+
[2023-02-05] MEDS: URSODIOL 300 MG CAPSULE PO SCH ×2 (09:36→21:51)
[2023-02-05] MEDS: MULTIVITAMINS (DAILY MVI) TABLET (FP) PO SCH (09:37)
[2023-02-05] MEDS: ASPIRIN COATED 81 MG TABLET.EC PO SCH (09:37)
[2023-02-05] MEDS: LACTOBACILLUS ACIDOPHILUS 1 TABLET PO SCH ×2 (09:37→21:51)
[2023-02-05] MEDS: FINASTERIDE 5 MG TABLET (FP) PO SCH (09:37)
[2023-02-05] MEDS: amLODIPine BESYLATE 5 MG TABLET (FP) PO SCH (09:37)
[2023-02-05] MEDS: MUPIROCIN CA 2% TOPICAL CREAM 15 GM TUBE TP SCH (09:39)
[2023-02-05] MEDS: BACITRACIN/POLYMYXIN B SULFATE 15 GM TUBE TP SCH (10:10)
[2023-02-05] MEDS ORDERED: BUPIVACAINE HCL/PF 0.5% (5MG/ML) 10 ML VIAL ONE (14:21)
[2023-02-05] MEDS ORDERED: LIDOCAINE HCL 2% (20ML MULTI-DOSE VIAL) ONE (14:51)
[2023-02-05] MEDS: APIXABAN 5 MG TABLET PO SCH (21:51)
[2023-02-06] MEDS: NYSTATIN 500,000 UNITS/5 ML SUSPENSION PO SCH ×3 (05:55→17:09)
[2023-02-06 08:10] LABS: BASO % 0.3 % (0-2.0); EOS % 2.1 % (0-4.5); HEMATOCRIT 26.4 % (35.4-49); HEMOGLOBIN 8.6 GM/dL (11.7-16.9); LYMPH % 14.9 % (8-40); MCH 34.8 pg (25.7-33.7); MCHC 32.7 g/dl (32.0-35.9); MEAN CELL VOLUME 106.4 fl (80-96); MEAN PLT VOLUME 9.4 fl (7.5-11.1); MONO % 6.8 % (3.8-10.2); NEUT % 75.9 % (42.8-82.8); PLATELET COUNT 197 10^3/uL (134-434); RBC 2.48 M/mm3 (4.00-5.60); RDW 19.6 % (11.9-15.9)
[2023-02-06 08:28] LABS: POTASSIUM 4.4 mmol/L (3.5-5.1)
[2023-02-06 08:31] LABS: CALCIUM 8.2 mg/dL (8.5-10.1)
[2023-02-06 08:32] LABS: ALBUMIN 2.5 g/dl (3.4-5.0); BLOOD UREA NITROGEN 29.8 mg/dL (7-18); MAGNESIUM 2.3 mg/dL (1.8-2.4)
[2023-02-06 08:35] LABS: CREATININE 0.7 mg/dL (0.55-1.3); PHOSPHOROUS 2.9 mg/dL (2.5-4.9)
[2023-02-06 08:37] LABS: BILIRUBIN,TOTAL 0.6 mg/dL (0.2-1); TOT PROT 5.1 g/dl (6.4-8.2)
[2023-02-06] MEDS: AMINO ACIDS/PROTEIN HYDROLYS 30 ML LIQUID.PKT PO SCH ×3 (10:15→17:09)
[2023-02-06] MEDS: MULTIVITAMINS (DAILY MVI) TABLET (FP) PO SCH (10:15)
[2023-02-06] MEDS: TAMSULOSIN HCL 0.4 MG CAP PO SCH (10:15)
[2023-02-06] MEDS: LACTOBACILLUS ACIDOPHILUS 1 TABLET PO SCH ×2 (10:16→21:19)
[2023-02-06] MEDS: amLODIPine BESYLATE 5 MG TABLET (FP) PO SCH (10:16)
[2023-02-06] MEDS: ASPIRIN COATED 81 MG TABLET.EC PO SCH (10:16)
[2023-02-06] MEDS: APIXABAN 5 MG TABLET PO SCH ×2 (10:16→21:18)
[2023-02-06] MEDS: FINASTERIDE 5 MG TABLET (FP) PO SCH (10:16)
[2023-02-06] MEDS: URSODIOL 300 MG CAPSULE PO SCH ×2 (10:16→21:19)
[2023-02-06] MEDS: BACITRACIN/POLYMYXIN B SULFATE 15 GM TUBE TP SCH (10:17)
[2023-02-06] MEDS: MUPIROCIN CA 2% TOPICAL CREAM 15 GM TUBE TP SCH (10:17)
[2023-02-06] MEDS: DIGOXIN 0.125 MG TABLET PO SCH (10:19)
[2023-02-06] MEDS: oxyCODONE HCL 5 MG TABLET PO PRN (12:38)
[2023-02-06 22:10] VITALS: BP 107/57; PULSE 96; RESP 20; TEMP 98.8
== END 2023-02-06 23:00 | disposition home health service (06) | DRG 871 ==
LOC: JER 13:02 → JERBED 15:57 → J4S 01-10 11:07
PROVIDERS: ADMIT Internal Medicine; ATTEND Internal Medicine
PROC: 0HBRXZZ Excision of Toe Nail, External Approach (ICD-10-PCS; principal; 2023-01-28)
PROC: 0HBRXZZ Excision of Toe Nail, External Approach (ICD-10-PCS; 2023-01-28)
PROC: 0HBRXZZ Excision of Toe Nail, External Approach (ICD-10-PCS; 2023-01-28)
PROC: 0HBRXZZ Excision of Toe Nail, External Approach (ICD-10-PCS; 2023-01-28)
PROC: 0HBRXZZ Excision of Toe Nail, External Approach (ICD-10-PCS; 2023-01-28)
PROC: 0HBRXZZ Excision of Toe Nail, External Approach (ICD-10-PCS; 2023-01-28)
PROC: 0HBRXZZ Excision of Toe Nail, External Approach (ICD-10-PCS; 2023-01-28)
PROC: 0HBRXZZ Excision of Toe Nail, External Approach (ICD-10-PCS; 2023-01-28)
PROC: 0HBRXZZ Excision of Toe Nail, External Approach (ICD-10-PCS; 2023-01-28)
PROC: 0HDRXZZ Extraction of Toe Nail, External Approach (ICD-10-PCS; 2023-01-28)
PROC: XW033E5 Introduction of Remdesivir Anti-infective into Peripheral Vein, Percutaneous Approach, New Technology Group 5 (ICD-10-PCS; 2023-01-28)
DX: A41.89 Other specified sepsis (principal); J12.82 Pneumonia due to coronavirus disease 2019; U07.1 COVID-19; J96.01 Acute respiratory failure with hypoxia; R65.21 Severe sepsis with septic shock; G82.20 Paraplegia, unspecified; E87.20 Acidosis, unspecified; I13.0 Hypertensive heart and chronic kidney disease with heart failure and stage 1 through stage 4 chronic kidney disease, or unspecified chronic kidney disease; I50.22 Chronic systolic (congestive) heart failure; T85.520A Displacement of bile duct prosthesis, initial encounter; I48.20 Chronic atrial fibrillation, unspecified; N39.0 Urinary tract infection, site not specified; B37.0 Candidal stomatitis; A04.72 Enterocolitis due to Clostridium difficile, not specified as recurrent; E78.5 Hyperlipidemia, unspecified; N18.9 Chronic kidney disease, unspecified; Y83.8 Other surgical procedures as the cause of abnormal reaction of the patient, or of later complication, without mention of misadventure at the time of the procedure; R33.9 Retention of urine, unspecified; R13.10 Dysphagia, unspecified; N40.0 Benign prostatic hyperplasia without lower urinary tract symptoms; K21.9 Gastro-esophageal reflux disease without esophagitis; J44.9 Chronic obstructive pulmonary disease, unspecified; F41.8 Other specified anxiety disorders; M54.50 Low back pain, unspecified; K44.9 Diaphragmatic hernia without obstruction or gangrene; K64.9 Unspecified hemorrhoids; D64.9 Anemia, unspecified; B96.1 Klebsiella pneumoniae [K. pneumoniae] as the cause of diseases classified elsewhere; B95.4 Other streptococcus as the cause of diseases classified elsewhere; M54.17 Radiculopathy, lumbosacral region; B35.1 Tinea unguium; D72.829 Elevated white blood cell count, unspecified; K57.90 Diverticulosis of intestine, part unspecified, without perforation or abscess without bleeding
CPT/HCPCS: 0241U-QW; 36415; 36430; 36511; 36600; 71045-TC-FY; 74177-TC; 76775-TC; 76856-TC; 80048; 80053; 81003; 82550; 82553; 82607; 82728; 82746; 82803; 83540; 83550; 83605; 83615; 83690; 83735; 84100; 84484; 85025; 85027; 85610; 85730; 86140; 86850; 86900; 86901; 86922; 87040; 87045; 87046; 87070; 87077; 87086; 87186; 87205; 87324; 87449; 87635; 93005; 93010; 94761; 97163-GP; 99285-25; C9399; J1100; P9016; P9038; Q9967

== ENCOUNTER 2023-02-12 17:31 | Inpatient (IN) | payer OTHER, BC ==
[2023-02-12] MEDS ORDERED: SODIUM CHLORIDE 250 ML IV STA (19:44)
[2023-02-12 19:48] LABS: VENOUS BASE EXCESS -0.7 mmol/L (-2-2); VENOUS O2 SATURATION 76.4 % (70-80); VENOUS PCO2 36.2 mmHg (38-52); VENOUS PH 7.427 (7.310-7.410)
[2023-02-12 19:55] LABS: BASO % 0.9 % (0-2.0); EOS % 1.1 % (0-4.5); HEMATOCRIT 29.6 % (35.4-49); HEMOGLOBIN 9.5 GM/dL (11.7-16.9); LYMPH % 14.2 % (8-40); MCH 33.9 pg (25.7-33.7); MCHC 32.3 g/dl (32.0-35.9); MEAN PLT VOLUME 8.4 fl (7.5-11.1); MONO % 5.7 % (3.8-10.2); NEUT % 78.1 % (42.8-82.8); PLATELET COUNT 308 10^3/uL (134-434); RBC 2.82 M/mm3 (4.00-5.60); RDW 19.8 % (11.9-15.9); WHITE BLOOD COUNT 9.9 K/mm3 (4.0-10.0)
[2023-02-12 20:06] LABS: INR 1.2 (0.83-1.09); PROTHROMBIN TIME (PATIENT) 13.9 SEC (9.7-13.0)
[2023-02-12 20:07] LABS: ACTIVATED PTT 31.4 SECONDS (25.2-36.5)
[2023-02-12 20:07] LABS: CHLORIDE 102 mmol/L (98-107); SODIUM 133 mmol/L (136-145)
[2023-02-12 20:08] LABS: EPI CELLS 10 /uL (0-25.1); HYALINE CASTS 3 /uL (0-3.1); PH,URINE 6.5 (5.0-8.0); URINE APPEARANCE TURBID; URINE BACTERIA >9,000 /uL (0-1359); URINE BILIRUBIN NEGATIVE (NEGATIVE); URINE COLOR YELLOW; URINE GLUCOSE (UA) NEGATIVE (NEGATIVE); URINE KETONE NEGATIVE (NEGATIVE); URINE LEUK ESTERASE 3+ (NEGATIVE); URINE NITRITE NEGATIVE (NEGATIVE); URINE PROTEIN 1+ (NEGATIVE); URINE RBC 121 /uL (0-23.9); URINE WBC 1392 /uL (0-25.8)
[2023-02-12 20:10] LABS: ALBUMIN 2.5 g/dl (3.4-5.0); CALCIUM 8.2 mg/dL (8.5-10.1); CO2 23 mmol/L (21-32); GLUCOSE,RANDOM 98 mg/dL (74-106)
[2023-02-12 20:11] LABS: BLOOD UREA NITROGEN 20.2 mg/dL (7-18)
[2023-02-12 20:13] LABS: SGPT/ALT 54 U/L (13-61)
[2023-02-12 20:14] LABS: SGOT/AST 96 U/L (15-37)
[2023-02-12 20:15] LABS: ALK PHOS 101 U/L (45-117); BILIRUBIN,TOTAL 0.8 mg/dL (0.2-1)
[2023-02-12 20:18] LABS: N-TERMINAL BNP 990.9 pg/ml (5-450)
[2023-02-12 20:25] LABS: ANISOCYTOSIS 2+; MACROCYTOSIS 1+; OVALOCYTE 1+; TEAR DROP CELLS 1+
[2023-02-12 20:31] LABS: LACTIC ACID 2.2 mmol/L (0.4-2.0)
[2023-02-12 20:31] LABS: ANION GAP 8 MMOL/L (8-16); POTASSIUM 7.6 mmol/L (3.5-5.1)
[2023-02-12] MEDS ORDERED: CEFTRIAXONE 1,000 MG in DEXTROSE 5%-WATER - 50 ML IVPB ONE (20:38)
[2023-02-12] MEDS ORDERED: DIGOXIN 0.5 MG/2 ML AMPUL IVPUSH ONE (20:46)
[2023-02-12] MEDS ORDERED: SODIUM CHLORIDE 500 ML IV STA (21:05)
[2023-02-12] MEDS ORDERED: DIGOXIN 0.5 MG/2 ML AMPUL ONE (21:23)
[2023-02-12] MEDS ORDERED: APIXABAN 5 MG TABLET PO ONE (22:00)
[2023-02-12 22:05] LABS: POTASSIUM 5.5 mmol/L (3.5-5.1)
[2023-02-12 22:06] LABS: CALCIUM 8.2 mg/dL (8.5-10.1)
[2023-02-12 22:07] LABS: BLOOD UREA NITROGEN 20.6 mg/dL (7-18)
[2023-02-12 22:10] LABS: CREATININE 0.9 mg/dL (0.55-1.3)
[2023-02-12] MEDS ORDERED: ACETAMINOPHEN 1000 MG/100 ML BAG IVPB ONE (22:15)
[2023-02-12 22:49] LABS: EPI CELLS 7 /uL (0-25.1); HYALINE CASTS 2 /uL (0-3.1); URINE APPEARANCE CLOUDY; URINE BILIRUBIN NEGATIVE (NEGATIVE); URINE COLOR YELLOW; URINE GLUCOSE (UA) NEGATIVE (NEGATIVE); URINE KETONE NEGATIVE (NEGATIVE); URINE LEUK ESTERASE 3+ (NEGATIVE); URINE NITRITE POSITIVE (NEGATIVE); URINE PROTEIN 2+ (NEGATIVE); URINE RBC 290 /uL (0-23.9); URINE WBC 4583 /uL (0-25.8)
[2023-02-12] MEDS ORDERED: ACETAMINOPHEN INJECTION 100 ML IVPB ONE (22:57)
[2023-02-12] MEDS ORDERED: APIXABAN 5 MG TABLET ONE (22:57)
[2023-02-12 23:03] LABS: CALCIUM 7.9 mg/dL (8.5-10.1)
[2023-02-12 23:04] LABS: BLOOD UREA NITROGEN 19.2 mg/dL (7-18)
[2023-02-12 23:07] LABS: CREATININE 0.9 mg/dL (0.55-1.3)
[2023-02-12] MEDS ORDERED: METOPROLOL TARTRATE 5 MG/5 ML VIAL IVPUSH ONE (23:15)
[2023-02-12] MEDS ORDERED: CEFTRIAXONE 1 GM/50 ML BAG ONE (23:43)
[2023-02-12] MEDS ORDERED: ALBUTEROL SO4 HFA INHALER IH PRN (23:56)
[2023-02-12] MEDS ORDERED: PATIENT'S OWN MEDICATION (NON-FORMULARY) (Oxycodone Hcl/Acetaminophen [Oxycodone-Acetamino PO PRN (23:56)
[2023-02-13] MEDS ORDERED: METOPROLOL TARTRATE 5 MG/5 ML VIAL ONE (00:14)
[2023-02-13] MEDS ORDERED: dilTIAZem HCL 60 MG TABLET ONE (00:59)
[2023-02-13] MEDS: dilTIAZem HCL 60 MG TABLET PO SCH ×4 (01:02→22:00)
[2023-02-13] MEDS ORDERED: SODIUM CHLORIDE 500 ML IV STA ×2 (04:09→07:36)
[2023-02-13] MEDS: METOPROLOL TARTRATE 50 MG TABLET (FP) PO SCH ×3 (06:35→22:00)
[2023-02-13] MEDS ORDERED: SODIUM CHLORIDE 0.9% 250 ML INFUS.BAG IV ONE (08:41)
[2023-02-13] MEDS ORDERED: SACUBITRIL/VALSARTAN 24 MG-26 MG TABLET PO SCH (10:00)
[2023-02-13] MEDS ORDERED: CEFTRIAXONE 1,000 MG in DEXTROSE 5%-WATER - 50 ML IVPB ONE (10:00)
[2023-02-13] MEDS ORDERED: SPIRONOLACTONE 25 MG TABLET PO SCH (10:00)
[2023-02-13] MEDS ORDERED: PIPERACILLIN/TAZOB 3.375 GM 3.375 GM in DEXTROSE 5%-WATER - 50 ML IVPB SCH (10:00)
[2023-02-13] MEDS: POLYETHYLENE GLYCOL (HEALTHYLAX) 3350 17 GM PACKET PO SCH ×2 (10:54→21:34)
[2023-02-13] MEDS: DIGOXIN 0.125 MG TABLET PO SCH (10:54)
[2023-02-13] MEDS: ASPIRIN COATED 81 MG TABLET.EC PO SCH (10:55)
[2023-02-13] MEDS: PANTOPRAZOLE 40 MG TABLET PO SCH (10:55)
[2023-02-13] MEDS: URSODIOL 300 MG CAPSULE PO SCH ×2 (10:55→21:33)
[2023-02-13] MEDS: FINASTERIDE 5 MG TABLET (FP) PO SCH (10:55)
[2023-02-13] MEDS: APIXABAN 5 MG TABLET PO SCH ×2 (10:55→21:33)
[2023-02-13] MEDS: TAMSULOSIN HCL 0.4 MG CAP PO SCH (11:08)
[2023-02-13 11:39] LABS: HEMATOCRIT 28.2 % (35.4-49); MCHC 31.9 g/dl (32.0-35.9); MEAN CELL VOLUME 106.5 fl (80-96); MEAN PLT VOLUME 9.3 fl (7.5-11.1); PLATELET COUNT 288 10^3/uL (134-434); RBC 2.65 M/mm3 (4.00-5.60); RDW 19.5 % (11.9-15.9); WHITE BLOOD COUNT 9.1 K/mm3 (4.0-10.0)
[2023-02-13 11:53] LABS: POTASSIUM 4.5 mmol/L (3.5-5.1)
[2023-02-13 11:57] LABS: ALBUMIN 2.4 g/dl (3.4-5.0); BLOOD UREA NITROGEN 16.8 mg/dL (7-18); MAGNESIUM 2.2 mg/dL (1.8-2.4)
[2023-02-13 11:58] LABS: CALCIUM 8.5 mg/dL (8.5-10.1)
[2023-02-13 12:00] LABS: CREATININE 0.6 mg/dL (0.55-1.3); PHOSPHOROUS 3.2 mg/dL (2.5-4.9)
[2023-02-13 12:01] LABS: BILIRUBIN,TOTAL 0.3 mg/dL (0.2-1); TOT PROT 5.2 g/dl (6.4-8.2)
[2023-02-13 12:10] LABS: ANISOCYTOSIS 2+; MACROCYTOSIS 2+
[2023-02-13] MEDS ORDERED: MINERAL OIL ENEMA 133 ML ENEMA RC ONE (12:23)
[2023-02-13 16:21] VITALS: BMI 23.6
[2023-02-13] MEDS: PIPERACILLIN/TAZOB 3.375 GM 3.375 GM in DEXTROSE 5%-WATER - 50 ML IVPB SCH (17:07)
[2023-02-13] MEDS: oxyCODONE HCL 5 MG TABLET PO PRN (21:32)
[2023-02-13] MEDS: DOCUSATE SODIUM 100 MG CAPSULE (FP) PO SCH (22:01)
[2023-02-14] MEDS: PIPERACILLIN/TAZOB 3.375 GM 3.375 GM in DEXTROSE 5%-WATER - 50 ML IVPB SCH ×3 (01:42→17:46)
[2023-02-14] MEDS: oxyCODONE HCL 5 MG TABLET PO PRN ×3 (03:19→17:46)
[2023-02-14] MEDS: METOPROLOL TARTRATE 50 MG TABLET (FP) PO SCH (06:12)
[2023-02-14] MEDS: dilTIAZem HCL 60 MG TABLET PO SCH ×3 (06:13→22:01)
[2023-02-14] MEDS: DIGOXIN 0.125 MG TABLET PO SCH (09:55)
[2023-02-14] MEDS: TAMSULOSIN HCL 0.4 MG CAP PO SCH (09:56)
[2023-02-14] MEDS: FINASTERIDE 5 MG TABLET (FP) PO SCH (09:56)
[2023-02-14] MEDS: POLYETHYLENE GLYCOL (HEALTHYLAX) 3350 17 GM PACKET PO SCH ×2 (09:57→22:01)
[2023-02-14] MEDS: ASPIRIN COATED 81 MG TABLET.EC PO SCH (09:57)
[2023-02-14] MEDS: APIXABAN 5 MG TABLET PO SCH ×2 (09:57→22:01)
[2023-02-14] MEDS: URSODIOL 300 MG CAPSULE PO SCH ×2 (09:57→22:01)
[2023-02-14] MEDS: PANTOPRAZOLE 40 MG TABLET PO SCH (09:57)
[2023-02-14 13:22] LABS: BASO % 0.6 % (0-2.0); HEMATOCRIT 27.5 % (35.4-49); HEMOGLOBIN 8.6 GM/dL (11.7-16.9); LYMPH % 17.3 % (8-40); MCH 33.6 pg (25.7-33.7); MCHC 31.4 g/dl (32.0-35.9); MEAN CELL VOLUME 107.2 fl (80-96); MONO % 5.6 % (3.8-10.2); NEUT % 75.5 % (42.8-82.8); PLATELET COUNT 285 10^3/uL (134-434); RBC 2.56 M/mm3 (4.00-5.60); RDW 20.5 % (11.9-15.9); WHITE BLOOD COUNT 5.9 K/mm3 (4.0-10.0)
[2023-02-14 13:44] LABS: POTASSIUM 4.4 mmol/L (3.5-5.1)
[2023-02-14] MEDS: METOPROLOL TARTRATE 25 MG TABLET (FP) PO SCH ×2 (13:44→22:01)
[2023-02-14 13:46] LABS: CALCIUM 8.6 mg/dL (8.5-10.1)
[2023-02-14 13:47] LABS: ALBUMIN 2.5 g/dl (3.4-5.0); BLOOD UREA NITROGEN 16.6 mg/dL (7-18); MAGNESIUM 2.4 mg/dL (1.8-2.4)
[2023-02-14 13:50] LABS: PHOSPHOROUS 3.2 mg/dL (2.5-4.9)
[2023-02-14 13:52] LABS: BILIRUBIN,TOTAL 0.4 mg/dL (0.2-1); TOT PROT 5.4 g/dl (6.4-8.2)
[2023-02-14] MEDS: DOCUSATE SODIUM 100 MG CAPSULE (FP) PO SCH (22:01)
[2023-02-15] MEDS: PIPERACILLIN/TAZOB 3.375 GM 3.375 GM in DEXTROSE 5%-WATER - 50 ML IVPB SCH ×3 (02:10→18:06)
[2023-02-15] MEDS: oxyCODONE HCL 5 MG TABLET PO PRN (02:11)
[2023-02-15] MEDS: METOPROLOL TARTRATE 25 MG TABLET (FP) PO SCH ×3 (05:59→22:27)
[2023-02-15] MEDS: dilTIAZem HCL 60 MG TABLET PO SCH ×3 (06:00→22:26)
[2023-02-15 08:11] LABS: POTASSIUM 4.2 mmol/L (3.5-5.1)
[2023-02-15 08:16] LABS: CALCIUM 8.1 mg/dL (8.5-10.1)
[2023-02-15 08:17] LABS: ALBUMIN 2.2 g/dl (3.4-5.0); BLOOD UREA NITROGEN 16.1 mg/dL (7-18); MAGNESIUM 2.1 mg/dL (1.8-2.4)
[2023-02-15 08:19] LABS: CREATININE 0.8 mg/dL (0.55-1.3)
[2023-02-15 08:20] LABS: PHOSPHOROUS 3.3 mg/dL (2.5-4.9)
[2023-02-15 08:21] LABS: BILIRUBIN,TOTAL 0.3 mg/dL (0.2-1); TOT PROT 4.8 g/dl (6.4-8.2)
[2023-02-15 08:57] LABS: HEMATOCRIT 26.2 % (35.4-49); HEMOGLOBIN 8.4 GM/dL (11.7-16.9); MCH 34.1 pg (25.7-33.7); MCHC 32.1 g/dl (32.0-35.9); PLATELET COUNT 259 10^3/uL (134-434); RBC 2.47 M/mm3 (4.00-5.60); RDW 19.6 % (11.9-15.9); WHITE BLOOD COUNT 6.5 K/mm3 (4.0-10.0)
[2023-02-15] MEDS: PANTOPRAZOLE 40 MG TABLET PO SCH (09:58)
[2023-02-15] MEDS: ASPIRIN COATED 81 MG TABLET.EC PO SCH (09:58)
[2023-02-15] MEDS: FINASTERIDE 5 MG TABLET (FP) PO SCH (09:58)
[2023-02-15] MEDS: DIGOXIN 0.125 MG TABLET PO SCH (09:58)
[2023-02-15] MEDS: TAMSULOSIN HCL 0.4 MG CAP PO SCH (09:58)
[2023-02-15] MEDS: APIXABAN 5 MG TABLET PO SCH ×2 (09:58→22:27)
[2023-02-15] MEDS: URSODIOL 300 MG CAPSULE PO SCH ×2 (09:58→22:26)
[2023-02-15] MEDS: POLYETHYLENE GLYCOL (HEALTHYLAX) 3350 17 GM PACKET PO SCH ×2 (09:59→22:27)
[2023-02-15 10:40] LABS: ANISOCYTOSIS 1+; MACROCYTOSIS 1+; OVALOCYTE 1+
[2023-02-15] MEDS: DOCUSATE SODIUM 100 MG CAPSULE (FP) PO SCH (22:27)
[2023-02-16] MEDS: PIPERACILLIN/TAZOB 3.375 GM 3.375 GM in DEXTROSE 5%-WATER - 50 ML IVPB SCH ×3 (02:12→17:46)
[2023-02-16] MEDS: dilTIAZem HCL 60 MG TABLET PO SCH ×3 (06:19→21:49)
[2023-02-16] MEDS: oxyCODONE HCL 5 MG TABLET PO PRN ×3 (06:19→18:34)
[2023-02-16] MEDS: METOPROLOL TARTRATE 25 MG TABLET (FP) PO SCH ×3 (06:19→21:49)
[2023-02-16] MEDS: TAMSULOSIN HCL 0.4 MG CAP PO SCH (10:23)
[2023-02-16] MEDS: PANTOPRAZOLE 40 MG TABLET PO SCH (10:23)
[2023-02-16] MEDS: URSODIOL 300 MG CAPSULE PO SCH ×2 (10:23→21:48)
[2023-02-16] MEDS: POLYETHYLENE GLYCOL (HEALTHYLAX) 3350 17 GM PACKET PO SCH ×2 (10:23→21:49)
[2023-02-16] MEDS: APIXABAN 5 MG TABLET PO SCH ×2 (10:24→21:49)
[2023-02-16] MEDS: FINASTERIDE 5 MG TABLET (FP) PO SCH (10:24)
[2023-02-16] MEDS: ASPIRIN COATED 81 MG TABLET.EC PO SCH (10:24)
[2023-02-16] MEDS: DIGOXIN 0.125 MG TABLET PO SCH (10:24)
[2023-02-16 12:06] LABS: BASO % 0.9 % (0-2.0); EOS % 1.1 % (0-4.5); HEMATOCRIT 25.9 % (35.4-49); HEMOGLOBIN 8.1 GM/dL (11.7-16.9); LYMPH % 22.1 % (8-40); MCH 33.7 pg (25.7-33.7); MCHC 31.5 g/dl (32.0-35.9); MEAN CELL VOLUME 107.2 fl (80-96); MEAN PLT VOLUME 8.5 fl (7.5-11.1); MONO % 9.9 % (3.8-10.2); PLATELET COUNT 287 10^3/uL (134-434); RBC 2.42 M/mm3 (4.00-5.60); RDW 19.8 % (11.9-15.9); WHITE BLOOD COUNT 6.4 K/mm3 (4.0-10.0)
[2023-02-16 12:19] LABS: POTASSIUM 4.1 mmol/L (3.5-5.1)
[2023-02-16 12:21] LABS: BLOOD UREA NITROGEN 17.1 mg/dL (7-18); CALCIUM 8.2 mg/dL (8.5-10.1)
[2023-02-16 12:22] LABS: ALBUMIN 2.2 g/dl (3.4-5.0); MAGNESIUM 2.1 mg/dL (1.8-2.4)
[2023-02-16 12:25] LABS: PHOSPHOROUS 2.9 mg/dL (2.5-4.9)
[2023-02-16 12:26] LABS: BILIRUBIN,TOTAL 0.2 mg/dL (0.2-1); TOT PROT 4.8 g/dl (6.4-8.2)
[2023-02-16 13:08] LABS: ANISOCYTOSIS 2+; MACROCYTOSIS 2+; OVALOCYTE 1+
[2023-02-16] MEDS: LACTOBACILLUS ACIDOPHILUS 1 TABLET PO SCH (21:48)
[2023-02-16] MEDS: DOCUSATE SODIUM 100 MG CAPSULE (FP) PO SCH (21:49)
[2023-02-17] MEDS: PIPERACILLIN/TAZOB 3.375 GM 3.375 GM in DEXTROSE 5%-WATER - 50 ML IVPB SCH ×3 (01:40→18:03)
[2023-02-17] MEDS: oxyCODONE HCL 5 MG TABLET PO PRN ×2 (01:41→22:31)
[2023-02-17] MEDS: dilTIAZem HCL 60 MG TABLET PO SCH ×3 (05:38→22:31)
[2023-02-17] MEDS: METOPROLOL TARTRATE 25 MG TABLET (FP) PO SCH ×3 (05:38→22:47)
[2023-02-17 09:17] LABS: HEMATOCRIT 26.8 % (35.4-49); HEMOGLOBIN 8.6 GM/dL (11.7-16.9); MCH 34.2 pg (25.7-33.7); MCHC 32.3 g/dl (32.0-35.9); MEAN CELL VOLUME 106.2 fl (80-96); MEAN PLT VOLUME 8.5 fl (7.5-11.1); PLATELET COUNT 265 10^3/uL (134-434); RBC 2.52 M/mm3 (4.00-5.60); RDW 20.4 % (11.9-15.9); WHITE BLOOD COUNT 7.1 K/mm3 (4.0-10.0)
[2023-02-17] MEDS: APIXABAN 5 MG TABLET PO SCH ×2 (09:43→22:29)
[2023-02-17] MEDS: PANTOPRAZOLE 40 MG TABLET PO SCH (09:43)
[2023-02-17] MEDS: POLYETHYLENE GLYCOL (HEALTHYLAX) 3350 17 GM PACKET PO SCH ×2 (09:43→22:30)
[2023-02-17] MEDS: FINASTERIDE 5 MG TABLET (FP) PO SCH (09:43)
[2023-02-17] MEDS: URSODIOL 300 MG CAPSULE PO SCH ×2 (09:43→22:29)
[2023-02-17] MEDS: ASPIRIN COATED 81 MG TABLET.EC PO SCH (09:43)
[2023-02-17] MEDS: TAMSULOSIN HCL 0.4 MG CAP PO SCH (09:44)
[2023-02-17 09:52] LABS: POTASSIUM 4.5 mmol/L (3.5-5.1)
[2023-02-17] MEDS: DIGOXIN 0.125 MG TABLET PO SCH (09:52)
[2023-02-17 10:02] LABS: ALBUMIN 2.4 g/dl (3.4-5.0); BLOOD UREA NITROGEN 18.6 mg/dL (7-18); CALCIUM 8.4 mg/dL (8.5-10.1)
[2023-02-17 10:05] LABS: PHOSPHOROUS 2.8 mg/dL (2.5-4.9)
[2023-02-17 10:07] LABS: BILIRUBIN,TOTAL 0.5 mg/dL (0.2-1); TOT PROT 5.2 g/dl (6.4-8.2)
[2023-02-17 10:36] LABS: ANISOCYTOSIS 0; MACROCYTOSIS 0; OVALOCYTE 1+
[2023-02-17] MEDS: LACTOBACILLUS ACIDOPHILUS 1 TABLET PO SCH (22:29)
[2023-02-18] MEDS: DOCUSATE SODIUM 100 MG CAPSULE (FP) PO SCH ×2 (01:52→21:51)
[2023-02-18] MEDS: PIPERACILLIN/TAZOB 3.375 GM 3.375 GM in DEXTROSE 5%-WATER - 50 ML IVPB SCH ×3 (01:57→17:28)
[2023-02-18] MEDS: dilTIAZem HCL 60 MG TABLET PO SCH ×3 (06:37→21:49)
[2023-02-18] MEDS: METOPROLOL TARTRATE 25 MG TABLET (FP) PO SCH ×3 (06:37→21:49)
[2023-02-18] MEDS: TAMSULOSIN HCL 0.4 MG CAP PO SCH (07:45)
[2023-02-18] MEDS: oxyCODONE HCL 5 MG TABLET PO PRN ×3 (07:50→21:50)
[2023-02-18] MEDS: APIXABAN 5 MG TABLET PO SCH ×2 (09:25→21:51)
[2023-02-18] MEDS: PANTOPRAZOLE 40 MG TABLET PO SCH (09:25)
[2023-02-18] MEDS: FINASTERIDE 5 MG TABLET (FP) PO SCH (09:25)
[2023-02-18] MEDS: ASPIRIN COATED 81 MG TABLET.EC PO SCH (09:26)
[2023-02-18] MEDS: URSODIOL 300 MG CAPSULE PO SCH ×2 (09:26→21:50)
[2023-02-18] MEDS: DIGOXIN 0.125 MG TABLET PO SCH (09:26)
[2023-02-18] MEDS: POLYETHYLENE GLYCOL (HEALTHYLAX) 3350 17 GM PACKET PO SCH ×2 (09:27→22:37)
[2023-02-18 09:29] LABS: HEMOGLOBIN 8.9 GM/dL (11.7-16.9); MCH 34.9 pg (25.7-33.7); MCHC 32.9 g/dl (32.0-35.9); MEAN CELL VOLUME 105.9 fl (80-96); MEAN PLT VOLUME 8.6 fl (7.5-11.1); PLATELET COUNT 269 10^3/uL (134-434); RBC 2.55 M/mm3 (4.00-5.60); RDW 19.9 % (11.9-15.9); WHITE BLOOD COUNT 8.5 K/mm3 (4.0-10.0)
[2023-02-18 09:54] LABS: POTASSIUM 4.1 mmol/L (3.5-5.1)
[2023-02-18 09:56] LABS: ALBUMIN 2.4 g/dl (3.4-5.0); CALCIUM 8.4 mg/dL (8.5-10.1); MAGNESIUM 2.1 mg/dL (1.8-2.4)
[2023-02-18 09:57] LABS: BLOOD UREA NITROGEN 17.4 mg/dL (7-18)
[2023-02-18 10:01] LABS: TOT PROT 5.2 g/dl (6.4-8.2)
[2023-02-18 10:02] LABS: BILIRUBIN,TOTAL 0.4 mg/dL (0.2-1)
[2023-02-18 10:54] LABS: ANISOCYTOSIS 2+; MACROCYTOSIS 2+
[2023-02-18] MEDS: LACTOBACILLUS ACIDOPHILUS 1 TABLET PO SCH (21:50)
[2023-02-19] MEDS: PIPERACILLIN/TAZOB 3.375 GM 3.375 GM in DEXTROSE 5%-WATER - 50 ML IVPB SCH ×2 (01:24→09:54)
[2023-02-19] MEDS: dilTIAZem HCL 60 MG TABLET PO SCH (06:29)
[2023-02-19] MEDS: METOPROLOL TARTRATE 25 MG TABLET (FP) PO SCH (06:29)
[2023-02-19] MEDS: oxyCODONE HCL 5 MG TABLET PO PRN (09:47)
[2023-02-19] MEDS: DIGOXIN 0.125 MG TABLET PO SCH (09:55)
[2023-02-19] MEDS: TAMSULOSIN HCL 0.4 MG CAP PO SCH (09:56)
[2023-02-19] MEDS: PANTOPRAZOLE 40 MG TABLET PO SCH (09:56)
[2023-02-19] MEDS: APIXABAN 5 MG TABLET PO SCH (09:56)
[2023-02-19] MEDS: URSODIOL 300 MG CAPSULE PO SCH (09:56)
[2023-02-19] MEDS: ASPIRIN COATED 81 MG TABLET.EC PO SCH (09:56)
[2023-02-19] MEDS: FINASTERIDE 5 MG TABLET (FP) PO SCH (09:56)
[2023-02-19] MEDS: POLYETHYLENE GLYCOL (HEALTHYLAX) 3350 17 GM PACKET PO SCH (10:06)
[2023-02-19 12:08] VITALS: BP 97/48; PULSE 75; RESP 19; TEMP 97.8
== END 2023-02-19 14:32 | disposition home health service (06) | DRG 698 ==
LOC: JER 17:31 → JERBED 19:27 → J4S 02-13 08:21
PROVIDERS: ADMIT Internal Medicine; ATTEND Internal Medicine
DX: T83.511A Infection and inflammatory reaction due to indwelling urethral catheter, initial encounter (principal); A41.52 Sepsis due to Pseudomonas; U07.1 COVID-19; G91.2 (Idiopathic) normal pressure hydrocephalus; G82.20 Paraplegia, unspecified; I50.32 Chronic diastolic (congestive) heart failure; J96.11 Chronic respiratory failure with hypoxia; N39.0 Urinary tract infection, site not specified; I11.0 Hypertensive heart disease with heart failure; E78.5 Hyperlipidemia, unspecified; I48.0 Paroxysmal atrial fibrillation; N40.0 Benign prostatic hyperplasia without lower urinary tract symptoms; F41.8 Other specified anxiety disorders; G20 Parkinson's disease; I73.9 Peripheral vascular disease, unspecified; J44.9 Chronic obstructive pulmonary disease, unspecified; K58.9 Irritable bowel syndrome, unspecified; K59.00 Constipation, unspecified; R33.9 Retention of urine, unspecified; M54.16 Radiculopathy, lumbar region; M54.50 Low back pain, unspecified; K21.9 Gastro-esophageal reflux disease without esophagitis; K44.9 Diaphragmatic hernia without obstruction or gangrene; B96.20 Unspecified Escherichia coli [E. coli] as the cause of diseases classified elsewhere; R79.89 Other specified abnormal findings of blood chemistry; R13.19 Other dysphagia; Y84.6 Urinary catheterization as the cause of abnormal reaction of the patient, or of later complication, without mention of misadventure at the time of the procedure; Z91.199 Patient's noncompliance with other medical treatment and regimen due to unspecified reason
CPT/HCPCS: 0241U-QW; 36415; 71045-TC-FY; 80048; 80053; 80162; 81003; 82803; 82962; 83605; 83735; 83880; 84100; 84484; 85025; 85610; 85730; 87040; 87086; 87186; 93005; 93010; 97162-GP; 99285-25

== ENCOUNTER 2023-02-26 09:08 | Inpatient (IN) | payer OTHER, BC ==
[2023-02-26] MEDS ORDERED: LACTATED RINGERS SOLUTION 1000 ML INFUS.BAG IV ONE ×2 (09:25→12:14)
[2023-02-26] MEDS ORDERED: ONDANSETRON 4 MG/2 ML VIAL IVPUSH ONE (09:26)
[2023-02-26] MEDS ORDERED: dilTIAZem HCL 50 MG/10 ML - 10 ML VIAL IVPUSH ONE (09:32)
[2023-02-26] MEDS ORDERED: LACTATED RINGERS SOLUTION 1,000 ML IV STA (09:32)
[2023-02-26] MEDS ORDERED: ONDANSETRON 4 MG/2 ML VIAL ONE (09:46)
[2023-02-26] MEDS ORDERED: dilTIAZem HCL 125 MG/25 ML - 25 ML VIAL ONE (09:46)
[2023-02-26 11:11] LABS: HEMATOCRIT 38.7 % (35.4-49); HEMOGLOBIN 12.5 GM/dL (11.7-16.9); MCH 34.1 pg (25.7-33.7); MCHC 32.4 g/dl (32.0-35.9); MEAN CELL VOLUME 105.2 fl (80-96); MEAN PLT VOLUME 9.5 fl (7.5-11.1); PLATELET COUNT 399 10^3/uL (134-434); RBC 3.68 M/mm3 (4.00-5.60); RDW 21.5 % (11.9-15.9); WHITE BLOOD COUNT 16.9 K/mm3 (4.0-10.0)
[2023-02-26 11:17] LABS: INR 1.28 (0.83-1.09); PROTHROMBIN TIME (PATIENT) 14.8 SEC (9.7-13.0)
[2023-02-26 11:18] LABS: VENOUS BASE EXCESS -0.8 mmol/L (-2-2); VENOUS O2 SATURATION 34.3 % (70-80); VENOUS PCO2 57.1 mmHg (38-52); VENOUS PH 7.289 (7.310-7.410)
[2023-02-26 11:19] LABS: ACTIVATED PTT 29.7 SECONDS (25.2-36.5)
[2023-02-26 11:27] LABS: POTASSIUM 5.6 mmol/L (3.5-5.1)
[2023-02-26 11:33] LABS: CREATININE 1.7 mg/dL (0.55-1.3)
[2023-02-26 11:34] LABS: BILIRUBIN,TOTAL 0.5 mg/dL (0.2-1)
[2023-02-26 11:39] LABS: ALBUMIN 3.8 g/dl (3.4-5.0); BLOOD UREA NITROGEN 42.5 mg/dL (7-18); CALCIUM 9.9 mg/dL (8.5-10.1); TOT PROT 7.8 g/dl (6.4-8.2)
[2023-02-26 11:47] LABS: ANISOCYTOSIS 2+; MACROCYTOSIS 2+
[2023-02-26 12:04] LABS: LACTIC ACID 3.8 mmol/L (0.4-2.0)
[2023-02-26] MEDS ORDERED: DEXAMETHASONE SOD PHOSPHATE 10 MG/1 ML VIAL IVPUSH ONE (12:06)
[2023-02-26] MEDS ORDERED: DEXAMETHASONE SOD PHOSPHATE 10 MG/1 ML VIAL ONE (12:28)
[2023-02-26] MEDS: LACTATED RINGERS SOLUTION 1,000 ML IV STA ×2 (14:00→15:13)
[2023-02-26] MEDS ORDERED: VANCOMYCIN 1,000 MG in DEXTROSE 5%-WATER - 250 ML IVPB ONE (14:29)
[2023-02-26] MEDS ORDERED: PIPERACILLIN/TAZOB 4.5 GM 4.5 GM in DEXTROSE 5%-WATER 100 ML IVPB ONE (14:29)
[2023-02-26] MEDS ORDERED: PIPERACILLIN/TAZOB 4.5 GM 4.5 GM/100 ML BAG IVPB ONE ×2 (14:43→15:08)
[2023-02-26] MEDS ORDERED: dilTIAZem HCL 50 MG/10 ML - 10 ML VIAL ONE (14:44)
[2023-02-26] MEDS ORDERED: VANCOMYCIN/WATER FOR INJ (PEG) 1,000 MG/200 ML BAG IVPB ONE ×2 (14:44→15:09)
[2023-02-26 15:43] LABS: EPI CELLS 17 /uL (0-25.1); HYALINE CASTS 1 /uL (0-3.1); URINE APPEARANCE CLEAR; URINE BACTERIA 11 /uL (0-1359); URINE BILIRUBIN NEGATIVE (NEGATIVE); URINE COLOR YELLOW; URINE GLUCOSE (UA) NEGATIVE (NEGATIVE); URINE KETONE NEGATIVE (NEGATIVE); URINE LEUK ESTERASE 2+ (NEGATIVE); URINE NITRITE NEGATIVE (NEGATIVE); URINE PROTEIN TRACE (NEGATIVE); URINE RBC 341 /uL (0-23.9); URINE WBC 57 /uL (0-25.8)
[2023-02-26] MEDS ORDERED: FUROSEMIDE 40 MG/4 ML INJECTABLE VIAL IVPUSH ONE (16:08)
[2023-02-26] MEDS ORDERED: INSULIN REGULAR HUMAN 100 UNITS/ML *VIAL IVPUSH ONE (16:09)
[2023-02-26] MEDS ORDERED: CALCIUM GLUCONATE 10% - 1,000 MG/10 ML VIAL IVPUSH ONE (16:09)
[2023-02-26] MEDS ORDERED: DEXTROSE 50%-WATER - 25 GM/50 ML VIAL IVPUSH ONE (16:10)
[2023-02-26] MEDS: ALBUTEROL SO4 2.5/IPRATROPIUM 0.5 INH SOL 3 ML VIAL.NEB. NEB SCH ×2 (16:27→16:28)
[2023-02-26] MEDS ORDERED: ALBUTEROL SO4 2.5/IPRATROPIUM 0.5 INH SOL 3 ML VIAL.NEB. NEB ONE (16:31)
[2023-02-26] MEDS ORDERED: CALCIUM CHLORIDE 1 GM/10 ML *DISP.SYRIN ONE (16:31)
[2023-02-26] MEDS ORDERED: DEXTROSE 50%-WATER 25 GM/50 ML DISP.SYRIN ONE (16:31)
[2023-02-26] MEDS ORDERED: FUROSEMIDE 40 MG/4 ML INJECTABLE VIAL ONE (16:32)
[2023-02-26] MEDS ORDERED: CALCIUM GLUC IN NACL, ISO-OSM 1 GM/50 ML BAG IVPB ONE (16:33)
[2023-02-26] MEDS ORDERED: oxyCODONE HCL 5 MG TABLET PO ONE (17:19)
[2023-02-26] MEDS ORDERED: oxyCODONE HCL 5 MG TABLET ONE (17:37)
[2023-02-26] MEDS ORDERED: HEPARIN NA (PORCINE) 5,000 UNITS/ML 1ML VIAL SQ SCH (23:15)
[2023-02-27] MEDS: APIXABAN 5 MG TABLET PO SCH ×3 (00:30→21:29)
[2023-02-27 00:56] LABS: LACTIC ACID 3.3 mmol/L (0.4-2.0)
[2023-02-27] MEDS ORDERED: SODIUM CHLORIDE 1,000 ML IV STA (01:21)
[2023-02-27] MEDS ORDERED: HYDROmorphone HCl 2 MG/ML VIAL IVPUSH ONE (01:24)
[2023-02-27 07:02] LABS: BASO % 0.2 % (0-2.0); EOS % 0.1 % (0-4.5); HEMATOCRIT 25.2 % (35.4-49); HEMOGLOBIN 8.1 GM/dL (11.7-16.9); LYMPH % 13.2 % (8-40); MCH 33.7 pg (25.7-33.7); MEAN CELL VOLUME 105.3 fl (80-96); MEAN PLT VOLUME 8.9 fl (7.5-11.1); MONO % 3.7 % (3.8-10.2); NEUT % 82.8 % (42.8-82.8); PLATELET COUNT 237 10^3/uL (134-434); RBC 2.39 M/mm3 (4.00-5.60); RDW 20.7 % (11.9-15.9); WHITE BLOOD COUNT 6.7 K/mm3 (4.0-10.0)
[2023-02-27 07:21] LABS: POTASSIUM 4.8 mmol/L (3.5-5.1)
[2023-02-27 07:24] LABS: BLOOD UREA NITROGEN 31.2 mg/dL (7-18)
[2023-02-27 07:27] LABS: CREATININE 0.9 mg/dL (0.55-1.3)
[2023-02-27 07:29] LABS: BILIRUBIN,TOTAL 0.5 mg/dL (0.2-1)
[2023-02-27 07:32] LABS: ALBUMIN 2.6 g/dl (3.4-5.0); TOT PROT 5.1 g/dl (6.4-8.2)
[2023-02-27] MEDS: TAMSULOSIN HCL 0.4 MG CAP PO SCH (09:30)
[2023-02-27] MEDS: DIGOXIN 0.125 MG TABLET PO SCH (11:00)
[2023-02-27] MEDS: PANTOPRAZOLE 40 MG TABLET PO SCH (11:00)
[2023-02-27] MEDS ORDERED: PIPERACILLIN/TAZOB 3.375 GM 3.375 GM in DEXTROSE 5%-WATER - 50 ML IVPB SCH (11:15)
[2023-02-27] MEDS ORDERED: oxyCODONE HCL 5 MG TABLET PO PRN (13:55)
[2023-02-27] MEDS: METOPROLOL TARTRATE 25 MG TABLET (FP) PO SCH ×2 (14:15→21:29)
[2023-02-27] MEDS: dilTIAZem HCL 60 MG TABLET PO SCH ×2 (14:15→21:29)
[2023-02-27] MEDS ORDERED: VANCOMYCIN 1 GM/200 ML PREMIX BAG (RESTRICTED TO ID ONLY) IVPB ONE (15:00)
[2023-02-27] MEDS ORDERED: BISACODYL 10 MG SUPP.RECT PR ONE ×2 (15:02→17:30)
[2023-02-27] MEDS: POLYETHYLENE GLYCOL (HEALTHYLAX) 3350 17 GM PACKET PO SCH (15:14)
[2023-02-27] MEDS: PIPERACILLIN/TAZOB 3.375 GM 3.375 GM in DEXTROSE 5%-WATER - 50 ML IVPB SCH (17:58)
[2023-02-27] MEDS: SENNOSIDES 8.6MG TABLET (FP) PO SCH (21:29)
[2023-02-27] MEDS: ACETAMINOPHEN 325 MG TABLET (FP) PO PRN (21:42)
[2023-02-27] MEDS ORDERED: oxyCODONE HCL 5 MG TABLET PO ONE (23:52)
[2023-02-28] MEDS: PIPERACILLIN/TAZOB 3.375 GM 3.375 GM in DEXTROSE 5%-WATER - 50 ML IVPB SCH ×4 (01:24→18:21)
[2023-02-28] MEDS: METOPROLOL TARTRATE 25 MG TABLET (FP) PO SCH ×3 (05:38→21:02)
[2023-02-28] MEDS: dilTIAZem HCL 60 MG TABLET PO SCH ×3 (05:38→21:02)
[2023-02-28] MEDS: PANTOPRAZOLE 40 MG TABLET PO SCH (10:03)
[2023-02-28] MEDS: SENNOSIDES 8.6MG TABLET (FP) PO SCH ×2 (10:03→21:02)
[2023-02-28] MEDS: APIXABAN 5 MG TABLET PO SCH ×2 (10:03→21:02)
[2023-02-28] MEDS: POLYETHYLENE GLYCOL (HEALTHYLAX) 3350 17 GM PACKET PO SCH (10:03)
[2023-02-28] MEDS: TAMSULOSIN HCL 0.4 MG CAP PO SCH (10:03)
[2023-02-28] MEDS ORDERED: SODIUM CHLORIDE 500 ML IV STA (10:33)
[2023-02-28] MEDS: DIGOXIN 0.125 MG TABLET PO SCH (11:11)
[2023-02-28 14:22] LABS: HEMATOCRIT 28.8 % (35.4-49); MCH 33.9 pg (25.7-33.7); MCHC 31.1 g/dl (32.0-35.9); MEAN CELL VOLUME 108.8 fl (80-96); MEAN PLT VOLUME 8.9 fl (7.5-11.1); PLATELET COUNT 240 10^3/uL (134-434); RBC 2.65 M/mm3 (4.00-5.60); RDW 21.2 % (11.9-15.9); WHITE BLOOD COUNT 7.9 K/mm3 (4.0-10.0)
[2023-02-28 14:46] LABS: POTASSIUM 4.3 mmol/L (3.5-5.1)
[2023-02-28 14:48] LABS: CALCIUM 8.4 mg/dL (8.5-10.1)
[2023-02-28 14:49] LABS: ALBUMIN 2.5 g/dl (3.4-5.0); BLOOD UREA NITROGEN 28.3 mg/dL (7-18)
[2023-02-28 14:52] LABS: PHOSPHOROUS 3.6 mg/dL (2.5-4.9)
[2023-02-28 14:53] LABS: BILIRUBIN,TOTAL 0.4 mg/dL (0.2-1)
[2023-02-28] MEDS: oxyCODONE HCL 5 MG TABLET PO PRN ×2 (14:53→20:28)
[2023-02-28 14:54] LABS: TOT PROT 5.1 g/dl (6.4-8.2)
[2023-02-28] MEDS ORDERED: VANCOMYCIN 1 GM/200 ML PREMIX BAG (RESTRICTED TO ID ONLY) IVPB SCH (15:00)
[2023-02-28 15:11] LABS: ANISOCYTOSIS 2+; MACROCYTOSIS 2+
[2023-02-28] MEDS ORDERED: ACETAMINOPHEN 1000 MG/100 ML BAG IVPB ONE (20:57)
[2023-03-01] MEDS: PIPERACILLIN/TAZOB 3.375 GM 3.375 GM in DEXTROSE 5%-WATER - 50 ML IVPB SCH ×3 (03:23→17:50)
[2023-03-01] MEDS: oxyCODONE HCL 5 MG TABLET PO PRN ×3 (03:40→22:08)
[2023-03-01] MEDS: ACETAMINOPHEN 325 MG TABLET (FP) PO PRN ×2 (03:49→22:09)
[2023-03-01] MEDS: dilTIAZem HCL 60 MG TABLET PO SCH ×3 (06:02→22:04)
[2023-03-01] MEDS: METOPROLOL TARTRATE 25 MG TABLET (FP) PO SCH ×4 (06:02→22:04)
[2023-03-01 08:20] LABS: HEMATOCRIT 25.8 % (35.4-49); HEMOGLOBIN 8.2 GM/dL (11.7-16.9); MCH 34.1 pg (25.7-33.7); MCHC 31.9 g/dl (32.0-35.9); MEAN CELL VOLUME 106.9 fl (80-96); MEAN PLT VOLUME 9.3 fl (7.5-11.1); PLATELET COUNT 206 10^3/uL (134-434); RBC 2.41 M/mm3 (4.00-5.60); WHITE BLOOD COUNT 7.4 K/mm3 (4.0-10.0)
[2023-03-01 08:36] LABS: POTASSIUM 4.5 mmol/L (3.5-5.1)
[2023-03-01 08:38] LABS: ALBUMIN 2.3 g/dl (3.4-5.0); BLOOD UREA NITROGEN 26.6 mg/dL (7-18); CALCIUM 7.7 mg/dL (8.5-10.1)
[2023-03-01 08:39] LABS: MAGNESIUM 1.8 mg/dL (1.8-2.4)
[2023-03-01 08:41] LABS: CREATININE 0.9 mg/dL (0.55-1.3); PHOSPHOROUS 3.5 mg/dL (2.5-4.9)
[2023-03-01 08:42] LABS: TOT PROT 4.6 g/dl (6.4-8.2)
[2023-03-01 08:43] LABS: BILIRUBIN,TOTAL 0.3 mg/dL (0.2-1)
[2023-03-01 09:21] LABS: ANISOCYTOSIS 3+; MACROCYTOSIS 1+; OVALOCYTE 1+; TEAR DROP CELLS 1+
[2023-03-01] MEDS: DIGOXIN 0.125 MG TABLET PO SCH (10:44)
[2023-03-01] MEDS: TAMSULOSIN HCL 0.4 MG CAP PO SCH (10:44)
[2023-03-01] MEDS: POLYETHYLENE GLYCOL (HEALTHYLAX) 3350 17 GM PACKET PO SCH (10:44)
[2023-03-01] MEDS: PANTOPRAZOLE 40 MG TABLET PO SCH (10:45)
[2023-03-01] MEDS: APIXABAN 5 MG TABLET PO SCH ×2 (10:45→22:04)
[2023-03-01] MEDS: SENNOSIDES 8.6MG TABLET (FP) PO SCH ×2 (10:45→22:05)
[2023-03-01] MEDS: ASCORBIC ACID 500 MG TABLET (FP) PO SCH ×2 (17:50→22:05)
[2023-03-01] MEDS: MULTIVITAMINS (DAILY MVI) TABLET (FP) PO SCH (17:50)
[2023-03-01] MEDS: AMINO ACIDS/PROTEIN HYDROLYS 30 ML LIQUID.PKT PO SCH (17:50)
[2023-03-02] MEDS: oxyCODONE HCL 5 MG TABLET PO PRN ×3 (03:13→22:40)
[2023-03-02] MEDS: ACETAMINOPHEN 325 MG TABLET (FP) PO PRN ×2 (03:14→22:41)
[2023-03-02] MEDS: PIPERACILLIN/TAZOB 3.375 GM 3.375 GM in DEXTROSE 5%-WATER - 50 ML IVPB SCH ×3 (03:15→18:16)
[2023-03-02] MEDS: METOPROLOL TARTRATE 25 MG TABLET (FP) PO SCH ×3 (06:46→22:40)
[2023-03-02] MEDS: dilTIAZem HCL 60 MG TABLET PO SCH ×3 (06:46→22:40)
[2023-03-02] MEDS: SENNOSIDES 8.6MG TABLET (FP) PO SCH ×2 (10:36→22:40)
[2023-03-02] MEDS: APIXABAN 5 MG TABLET PO SCH ×2 (10:36→22:40)
[2023-03-02] MEDS: AMINO ACIDS/PROTEIN HYDROLYS 30 ML LIQUID.PKT PO SCH (10:36)
[2023-03-02] MEDS: TAMSULOSIN HCL 0.4 MG CAP PO SCH (10:36)
[2023-03-02] MEDS: MULTIVITAMINS (DAILY MVI) TABLET (FP) PO SCH (10:36)
[2023-03-02] MEDS: PANTOPRAZOLE 40 MG TABLET PO SCH (10:36)
[2023-03-02] MEDS: POLYETHYLENE GLYCOL (HEALTHYLAX) 3350 17 GM PACKET PO SCH ×2 (10:36→15:02)
[2023-03-02] MEDS: ASCORBIC ACID 500 MG TABLET (FP) PO SCH ×2 (10:36→22:40)
[2023-03-02] MEDS: DIGOXIN 0.125 MG TABLET PO SCH (10:37)
[2023-03-02] MEDS: MIDODRINE HCL 5 MG TABLET PO SCH ×3 (10:41→18:16)
[2023-03-02 11:53] LABS: BASO % 1.3 % (0-2.0); EOS % 3.7 % (0-4.5); HEMATOCRIT 29.6 % (35.4-49); HEMOGLOBIN 9.7 GM/dL (11.7-16.9); LYMPH % 28.2 % (8-40); MCH 34.6 pg (25.7-33.7); MCHC 32.8 g/dl (32.0-35.9); MEAN CELL VOLUME 105.5 fl (80-96); MEAN PLT VOLUME 8.5 fl (7.5-11.1); MONO % 6.9 % (3.8-10.2); NEUT % 59.9 % (42.8-82.8); PLATELET COUNT 210 10^3/uL (134-434); RBC 2.81 M/mm3 (4.00-5.60); RDW 19.7 % (11.9-15.9); WHITE BLOOD COUNT 6.3 K/mm3 (4.0-10.0)
[2023-03-02 12:12] LABS: POTASSIUM 4.4 mmol/L (3.5-5.1)
[2023-03-02 12:14] LABS: CALCIUM 8.2 mg/dL (8.5-10.1)
[2023-03-02 12:15] LABS: ALBUMIN 2.6 g/dl (3.4-5.0); BLOOD UREA NITROGEN 22.1 mg/dL (7-18); MAGNESIUM 1.9 mg/dL (1.8-2.4)
[2023-03-02 12:16] LABS: ANISOCYTOSIS 1+; MACROCYTOSIS 2+; TEAR DROP CELLS 1+
[2023-03-02 12:18] LABS: CREATININE 1.1 mg/dL (0.55-1.3); PHOSPHOROUS 3.3 mg/dL (2.5-4.9)
[2023-03-02 12:19] LABS: BILIRUBIN,TOTAL 0.3 mg/dL (0.2-1); TOT PROT 5.2 g/dl (6.4-8.2)
[2023-03-03] MEDS: PIPERACILLIN/TAZOB 3.375 GM 3.375 GM in DEXTROSE 5%-WATER - 50 ML IVPB SCH ×3 (03:00→18:18)
[2023-03-03] MEDS: oxyCODONE HCL 5 MG TABLET PO PRN ×2 (05:40→18:26)
[2023-03-03] MEDS: ACETAMINOPHEN 325 MG TABLET (FP) PO PRN ×2 (05:41→18:27)
[2023-03-03] MEDS: METOPROLOL TARTRATE 25 MG TABLET (FP) PO SCH ×3 (05:56→21:19)
[2023-03-03] MEDS: dilTIAZem HCL 60 MG TABLET PO SCH ×3 (05:56→21:19)
[2023-03-03] MEDS: POLYETHYLENE GLYCOL (HEALTHYLAX) 3350 17 GM PACKET PO SCH (10:00)
[2023-03-03] MEDS: DIGOXIN 0.125 MG TABLET PO SCH (10:58)
[2023-03-03] MEDS: MIDODRINE HCL 5 MG TABLET PO SCH ×3 (10:58→18:18)
[2023-03-03] MEDS: APIXABAN 5 MG TABLET PO SCH ×2 (10:58→21:19)
[2023-03-03] MEDS: TAMSULOSIN HCL 0.4 MG CAP PO SCH (10:58)
[2023-03-03] MEDS: PANTOPRAZOLE 40 MG TABLET PO SCH (10:58)
[2023-03-03] MEDS: ASCORBIC ACID 500 MG TABLET (FP) PO SCH ×2 (10:59→21:19)
[2023-03-03] MEDS: SENNOSIDES 8.6MG TABLET (FP) PO SCH ×2 (10:59→21:19)
[2023-03-03] MEDS: MULTIVITAMINS (DAILY MVI) TABLET (FP) PO SCH (10:59)
[2023-03-03] MEDS: AMINO ACIDS/PROTEIN HYDROLYS 30 ML LIQUID.PKT PO SCH (11:36)
[2023-03-03 12:19] LABS: BASO % 0.5 % (0-2.0); EOS % 3.9 % (0-4.5); HEMATOCRIT 26.1 % (35.4-49); HEMOGLOBIN 8.8 GM/dL (11.7-16.9); LYMPH % 27.2 % (8-40); MCH 34.6 pg (25.7-33.7); MCHC 33.5 g/dl (32.0-35.9); MEAN CELL VOLUME 103.4 fl (80-96); MEAN PLT VOLUME 8.9 fl (7.5-11.1); MONO % 6.4 % (3.8-10.2); PLATELET COUNT 193 10^3/uL (134-434); RBC 2.53 M/mm3 (4.00-5.60); RDW 20.2 % (11.9-15.9); WHITE BLOOD COUNT 6.5 K/mm3 (4.0-10.0)
[2023-03-03 13:09] LABS: POTASSIUM 4.3 mmol/L (3.5-5.1)
[2023-03-03 13:11] LABS: ALBUMIN 2.6 g/dl (3.4-5.0)
[2023-03-03 13:12] LABS: BLOOD UREA NITROGEN 23.2 mg/dL (7-18); CALCIUM 8.4 mg/dL (8.5-10.1); MAGNESIUM 1.9 mg/dL (1.8-2.4)
[2023-03-03 13:15] LABS: CREATININE 0.9 mg/dL (0.55-1.3)
[2023-03-03 13:16] LABS: BILIRUBIN,TOTAL 0.4 mg/dL (0.2-1); TOT PROT 5.1 g/dl (6.4-8.2)
[2023-03-04] MEDS: PIPERACILLIN/TAZOB 3.375 GM 3.375 GM in DEXTROSE 5%-WATER - 50 ML IVPB SCH ×3 (03:23→17:01)
[2023-03-04] MEDS: dilTIAZem HCL 60 MG TABLET PO SCH ×3 (05:56→21:42)
[2023-03-04] MEDS: METOPROLOL TARTRATE 25 MG TABLET (FP) PO SCH ×3 (05:56→21:42)
[2023-03-04 08:13] LABS: BASO % 1.3 % (0-2.0); HEMATOCRIT 29.4 % (35.4-49); HEMOGLOBIN 9.4 GM/dL (11.7-16.9); LYMPH % 21.6 % (8-40); MCH 34.1 pg (25.7-33.7); MEAN CELL VOLUME 106.3 fl (80-96); MEAN PLT VOLUME 9.5 fl (7.5-11.1); MONO % 2.9 % (3.8-10.2); NEUT % 70.2 % (42.8-82.8); PLATELET COUNT 230 10^3/uL (134-434); RBC 2.76 M/mm3 (4.00-5.60); RDW 20.2 % (11.9-15.9); WHITE BLOOD COUNT 10.2 K/mm3 (4.0-10.0)
[2023-03-04 08:33] LABS: POTASSIUM 4.6 mmol/L (3.5-5.1)
[2023-03-04 08:42] LABS: ALBUMIN 2.7 g/dl (3.4-5.0); BLOOD UREA NITROGEN 24.9 mg/dL (7-18); CALCIUM 8.4 mg/dL (8.5-10.1); MAGNESIUM 1.9 mg/dL (1.8-2.4)
[2023-03-04 08:45] LABS: CREATININE 0.9 mg/dL (0.55-1.3); PHOSPHOROUS 3.5 mg/dL (2.5-4.9)
[2023-03-04 08:47] LABS: BILIRUBIN,TOTAL 0.3 mg/dL (0.2-1); TOT PROT 5.3 g/dl (6.4-8.2)
[2023-03-04] MEDS: AMINO ACIDS/PROTEIN HYDROLYS 30 ML LIQUID.PKT PO SCH (09:23)
[2023-03-04] MEDS: MULTIVITAMINS (DAILY MVI) TABLET (FP) PO SCH (09:24)
[2023-03-04] MEDS: PANTOPRAZOLE 40 MG TABLET PO SCH (09:24)
[2023-03-04] MEDS: ASCORBIC ACID 500 MG TABLET (FP) PO SCH ×2 (09:24→21:42)
[2023-03-04] MEDS: APIXABAN 5 MG TABLET PO SCH ×2 (09:24→21:41)
[2023-03-04] MEDS: TAMSULOSIN HCL 0.4 MG CAP PO SCH (09:24)
[2023-03-04] MEDS: MIDODRINE HCL 5 MG TABLET PO SCH ×3 (09:24→17:01)
[2023-03-04] MEDS: SENNOSIDES 8.6MG TABLET (FP) PO SCH ×2 (09:24→21:42)
[2023-03-04] MEDS: DIGOXIN 0.125 MG TABLET PO SCH (09:24)
[2023-03-04] MEDS: POLYETHYLENE GLYCOL (HEALTHYLAX) 3350 17 GM PACKET PO SCH (09:24)
[2023-03-04] MEDS: oxyCODONE HCL 5 MG TABLET PO PRN ×3 (09:27→21:42)
[2023-03-04] MEDS ORDERED: SODIUM CHLORIDE 500 ML IV STA (13:09)
[2023-03-04] MEDS: ACETAMINOPHEN 325 MG TABLET (FP) PO PRN (21:43)
[2023-03-05] MEDS: PIPERACILLIN/TAZOB 3.375 GM 3.375 GM in DEXTROSE 5%-WATER - 50 ML IVPB SCH ×2 (02:49→09:58)
[2023-03-05] MEDS: METOPROLOL TARTRATE 25 MG TABLET (FP) PO SCH ×3 (05:27→21:42)
[2023-03-05] MEDS: oxyCODONE HCL 5 MG TABLET PO PRN ×3 (05:27→21:44)
[2023-03-05] MEDS: dilTIAZem HCL 60 MG TABLET PO SCH ×3 (05:27→21:42)
[2023-03-05] MEDS: ACETAMINOPHEN 325 MG TABLET (FP) PO PRN ×3 (05:28→21:44)
[2023-03-05] MEDS: AMINO ACIDS/PROTEIN HYDROLYS 30 ML LIQUID.PKT PO SCH (08:30)
[2023-03-05] MEDS: TAMSULOSIN HCL 0.4 MG CAP PO SCH (08:30)
[2023-03-05 08:51] LABS: BASO % 1.2 % (0-2.0); EOS % 3.3 % (0-4.5); HEMATOCRIT 27.7 % (35.4-49); HEMOGLOBIN 9.1 GM/dL (11.7-16.9); LYMPH % 28.1 % (8-40); MCH 34.9 pg (25.7-33.7); MCHC 32.8 g/dl (32.0-35.9); MEAN CELL VOLUME 106.3 fl (80-96); MEAN PLT VOLUME 8.8 fl (7.5-11.1); MONO % 5.4 % (3.8-10.2); PLATELET COUNT 189 10^3/uL (134-434); RBC 2.61 M/mm3 (4.00-5.60); RDW 20.5 % (11.9-15.9); WHITE BLOOD COUNT 7.8 K/mm3 (4.0-10.0)
[2023-03-05 09:16] LABS: POTASSIUM 4.3 mmol/L (3.5-5.1)
[2023-03-05 09:18] LABS: CALCIUM 8.5 mg/dL (8.5-10.1)
[2023-03-05 09:19] LABS: ALBUMIN 2.7 g/dl (3.4-5.0); BLOOD UREA NITROGEN 22.6 mg/dL (7-18); MAGNESIUM 1.9 mg/dL (1.8-2.4)
[2023-03-05 09:21] LABS: CREATININE 0.9 mg/dL (0.55-1.3); PHOSPHOROUS 3.4 mg/dL (2.5-4.9)
[2023-03-05 09:23] LABS: BILIRUBIN,TOTAL 0.5 mg/dL (0.2-1)
[2023-03-05 09:24] LABS: TOT PROT 5.2 g/dl (6.4-8.2)
[2023-03-05] MEDS: MIDODRINE HCL 5 MG TABLET PO SCH ×3 (09:57→17:31)
[2023-03-05] MEDS: DIGOXIN 0.125 MG TABLET PO SCH (09:57)
[2023-03-05] MEDS: MULTIVITAMINS (DAILY MVI) TABLET (FP) PO SCH (09:57)
[2023-03-05] MEDS: APIXABAN 5 MG TABLET PO SCH ×2 (09:57→21:42)
[2023-03-05] MEDS: ASCORBIC ACID 500 MG TABLET (FP) PO SCH ×2 (09:57→21:43)
[2023-03-05] MEDS: SENNOSIDES 8.6MG TABLET (FP) PO SCH ×2 (09:58→21:43)
[2023-03-05] MEDS: PANTOPRAZOLE 40 MG TABLET PO SCH (09:58)
[2023-03-05] MEDS: POLYETHYLENE GLYCOL (HEALTHYLAX) 3350 17 GM PACKET PO SCH (09:58)
[2023-03-05] MEDS ORDERED: SODIUM CHLORIDE 500 ML IV STA (12:41)
[2023-03-05] MEDS ORDERED: SODIUM CHLORIDE 1,000 ML IV SCH (13:40)
[2023-03-05 22:00] VITALS: BMI 20.5
[2023-03-06] MEDS: METOPROLOL TARTRATE 25 MG TABLET (FP) PO SCH (05:53)
[2023-03-06] MEDS: dilTIAZem HCL 60 MG TABLET PO SCH (05:53)
[2023-03-06] MEDS: ACETAMINOPHEN 325 MG TABLET (FP) PO PRN (05:54)
[2023-03-06] MEDS: oxyCODONE HCL 5 MG TABLET PO PRN (05:54)
[2023-03-06 06:40] VITALS: TEMP 97.7
[2023-03-06] MEDS: AMINO ACIDS/PROTEIN HYDROLYS 30 ML LIQUID.PKT PO SCH (08:30)
[2023-03-06 09:18] LABS: BASO % 0.7 % (0-2.0); EOS % 2.6 % (0-4.5); HEMATOCRIT 28.8 % (35.4-49); HEMOGLOBIN 9.5 GM/dL (11.7-16.9); LYMPH % 22.8 % (8-40); MCH 35.1 pg (25.7-33.7); MCHC 33.1 g/dl (32.0-35.9); MEAN PLT VOLUME 9.2 fl (7.5-11.1); MONO % 5.5 % (3.8-10.2); NEUT % 68.4 % (42.8-82.8); PLATELET COUNT 207 10^3/uL (134-434); RBC 2.71 M/mm3 (4.00-5.60); RDW 20.5 % (11.9-15.9); WHITE BLOOD COUNT 8.3 K/mm3 (4.0-10.0)
[2023-03-06] MEDS: MIDODRINE HCL 5 MG TABLET PO SCH (09:18)
[2023-03-06] MEDS: SENNOSIDES 8.6MG TABLET (FP) PO SCH (09:18)
[2023-03-06] MEDS: ASCORBIC ACID 500 MG TABLET (FP) PO SCH (09:18)
[2023-03-06] MEDS: APIXABAN 5 MG TABLET PO SCH (09:18)
[2023-03-06] MEDS: PANTOPRAZOLE 40 MG TABLET PO SCH (09:18)
[2023-03-06] MEDS: POLYETHYLENE GLYCOL (HEALTHYLAX) 3350 17 GM PACKET PO SCH (09:18)
[2023-03-06] MEDS: TAMSULOSIN HCL 0.4 MG CAP PO SCH (09:19)
[2023-03-06] MEDS: DIGOXIN 0.125 MG TABLET PO SCH (09:29)
[2023-03-06] MEDS: MULTIVITAMINS (DAILY MVI) TABLET (FP) PO SCH (09:29)
[2023-03-06 09:36] LABS: POTASSIUM 4.3 mmol/L (3.5-5.1)
[2023-03-06 09:43] LABS: ALBUMIN 2.8 g/dl (3.4-5.0); BLOOD UREA NITROGEN 19.8 mg/dL (7-18); CALCIUM 8.4 mg/dL (8.5-10.1)
[2023-03-06 09:46] LABS: CREATININE 0.8 mg/dL (0.55-1.3); PHOSPHOROUS 3.2 mg/dL (2.5-4.9)
[2023-03-06 09:47] LABS: TOT PROT 5.4 g/dl (6.4-8.2)
[2023-03-06 09:48] LABS: BILIRUBIN,TOTAL 0.3 mg/dL (0.2-1)
[2023-03-06 10:19] LABS: ANISOCYTOSIS 1+; MACROCYTOSIS 0
[2023-03-06 13:15] VITALS: BP 102/50; PULSE 71; RESP 19
== END 2023-03-06 13:54 | disposition home health service (06) | DRG 871 ==
LOC: JER 09:08 → JERBED 14:27 → J4W 18:28
PROVIDERS: ATTEND Internal Medicine
DX: A41.89 Other specified sepsis (principal); J12.82 Pneumonia due to coronavirus disease 2019; U07.1 COVID-19; N17.9 Acute kidney failure, unspecified; N39.0 Urinary tract infection, site not specified; G82.20 Paraplegia, unspecified; I50.32 Chronic diastolic (congestive) heart failure; I48.20 Chronic atrial fibrillation, unspecified; I13.0 Hypertensive heart and chronic kidney disease with heart failure and stage 1 through stage 4 chronic kidney disease, or unspecified chronic kidney disease; E87.20 Acidosis, unspecified; I10 Essential (primary) hypertension; E78.5 Hyperlipidemia, unspecified; E86.0 Dehydration; M54.9 Dorsalgia, unspecified; E87.5 Hyperkalemia; K59.09 Other constipation; R65.20 Severe sepsis without septic shock; K21.9 Gastro-esophageal reflux disease without esophagitis; F41.9 Anxiety disorder, unspecified; D64.9 Anemia, unspecified; N18.9 Chronic kidney disease, unspecified; R33.8 Other retention of urine; M54.16 Radiculopathy, lumbar region; F32.A Depression, unspecified
CPT/HCPCS: 0241U-QW; 36415; 71045-TC-FY; 71250-TC; 74176-TC; 76937; 80053; 80162; 81003; 82533; 82550; 82553; 82803; 82962; 83605; 83735; 84100; 84132; 84484; 85025; 85610; 85730; 86850; 86900; 86901; 87040; 87086; 93005; 93010; 99291; J1100

== ENCOUNTER 2023-03-10 06:26 | Inpatient (IN) | payer OTHER, BC ==
[2023-03-10 06:33] VITALS: BMI 20.3
[2023-03-10] MEDS ORDERED: dilTIAZem HCL 50 MG/10 ML - 10 ML VIAL IVPUSH ONE (06:52)
[2023-03-10] MEDS ORDERED: dilTIAZem HCL 125 MG/25 ML - 25 ML VIAL ONE (06:53)
[2023-03-10 07:53] LABS: INR 1.46 (0.83-1.09); PROTHROMBIN TIME (PATIENT) 16.9 SEC (9.7-13.0)
[2023-03-10 07:55] LABS: ACTIVATED PTT 36.4 SECONDS (25.2-36.5)
[2023-03-10 08:09] LABS: HEMATOCRIT 31.4 % (35.4-49); HEMOGLOBIN 10.1 GM/dL (11.7-16.9); MCHC 32.3 g/dl (32.0-35.9); MEAN CELL VOLUME 105.2 fl (80-96); PLATELET COUNT 247 10^3/uL (134-434); RBC 2.98 M/mm3 (4.00-5.60); RDW 20.3 % (11.9-15.9); WHITE BLOOD COUNT 12.1 K/mm3 (4.0-10.0)
[2023-03-10 08:23] LABS: CHLORIDE 108 mmol/L (98-107); SODIUM 136 mmol/L (136-145)
[2023-03-10 08:25] LABS: ALBUMIN 2.7 g/dl (3.4-5.0); CALCIUM 8.8 mg/dL (8.5-10.1); CO2 23 mmol/L (21-32); GLUCOSE,RANDOM 127 mg/dL (74-106)
[2023-03-10 08:27] LABS: BLOOD UREA NITROGEN 25.6 mg/dL (7-18)
[2023-03-10 08:29] LABS: SGOT/AST 127 U/L (15-37)
[2023-03-10 08:31] LABS: ALK PHOS 73 U/L (45-117); BILIRUBIN,TOTAL 0.4 mg/dL (0.2-1); TOT PROT 6.4 g/dl (6.4-8.2)
[2023-03-10 08:34] LABS: N-TERMINAL BNP 1279.9 pg/ml (5-450)
[2023-03-10 09:09] LABS: ANION GAP 6 MMOL/L (8-16); POTASSIUM 8.1 mmol/L (3.5-5.1); SGPT/ALT 29 U/L (13-61)
[2023-03-10 09:17] LABS: ANISOCYTOSIS 1+; MACROCYTOSIS 1+
[2023-03-10] MEDS ORDERED: dilTIAZem HCL 60 MG TABLET PO ONE (10:03)
[2023-03-10 10:09] LABS: BLOOD UREA NITROGEN 26.9 mg/dL (7-18); CALCIUM 8.9 mg/dL (8.5-10.1)
[2023-03-10 10:13] LABS: CREATININE 0.9 mg/dL (0.55-1.3)
[2023-03-10] MEDS ORDERED: dilTIAZem HCL 60 MG TABLET ONE ×3 (10:20→22:09)
[2023-03-10] MEDS ORDERED: ALBUTEROL SO4 HFA INHALER IH PRN (11:08)
[2023-03-10] MEDS ORDERED: PANTOPRAZOLE SODIUM 40 MG/100 ML BAG IVPB ONE (11:20)
[2023-03-10] MEDS: PANTOPRAZOLE 40 MG TABLET PO SCH (11:25)
[2023-03-10] MEDS: METOPROLOL TARTRATE 25 MG TABLET (FP) PO SCH ×3 (11:25→22:13)
[2023-03-10] MEDS: DIGOXIN 0.125 MG TABLET PO SCH (11:26)
[2023-03-10] MEDS: URSODIOL 300 MG CAPSULE PO SCH ×2 (12:24→22:17)
[2023-03-10] MEDS ORDERED: SACUBITRIL/VALSARTAN 24 MG-26 MG TABLET ONE ×2 (13:31→22:09)
[2023-03-10] MEDS ORDERED: MIDODRINE HCL 5 MG TABLET ONE ×2 (13:32→18:16)
[2023-03-10] MEDS: MIDODRINE HCL 5 MG TABLET PO SCH ×2 (13:37→18:24)
[2023-03-10] MEDS: SACUBITRIL/VALSARTAN 24 MG-26 MG TABLET PO SCH ×2 (13:37→22:13)
[2023-03-10] MEDS: dilTIAZem HCL 60 MG TABLET PO SCH ×2 (13:37→22:13)
[2023-03-10] MEDS ORDERED: oxyCODONE HCL 5 MG TABLET ONE (16:34)
[2023-03-10] MEDS: oxyCODONE HCL 5 MG TABLET PO PRN (16:38)
[2023-03-10] MEDS ORDERED: METOPROLOL TARTRATE 25 MG TABLET (FP) ONE (22:08)
[2023-03-10] MEDS ORDERED: DOCUSATE SODIUM 100 MG CAPSULE (FP) PO ONE (22:09)
[2023-03-10] MEDS: DOCUSATE SODIUM 100 MG CAPSULE (FP) PO SCH (22:13)
[2023-03-10] MEDS: APIXABAN 5 MG TABLET PO SCH (22:13)
[2023-03-11] MEDS: oxyCODONE HCL 5 MG TABLET PO PRN ×2 (01:54→10:11)
[2023-03-11] MEDS: ACETAMINOPHEN 325 MG TABLET (FP) PO PRN (01:55)
[2023-03-11] MEDS: METOPROLOL TARTRATE 25 MG TABLET (FP) PO SCH ×3 (05:54→22:55)
[2023-03-11] MEDS: dilTIAZem HCL 60 MG TABLET PO SCH ×3 (05:54→22:53)
[2023-03-11 07:59] LABS: BASO % 0.9 % (0-2.0); EOS % 5.2 % (0-4.5); HEMATOCRIT 32.2 % (35.4-49); HEMOGLOBIN 10.3 GM/dL (11.7-16.9); LYMPH % 16.2 % (8-40); MCH 33.9 pg (25.7-33.7); MEAN CELL VOLUME 106.1 fl (80-96); MEAN PLT VOLUME 9.2 fl (7.5-11.1); MONO % 6.3 % (3.8-10.2); NEUT % 71.4 % (42.8-82.8); PLATELET COUNT 287 10^3/uL (134-434); RBC 3.03 M/mm3 (4.00-5.60); RDW 20.3 % (11.9-15.9); WHITE BLOOD COUNT 10.1 K/mm3 (4.0-10.0)
[2023-03-11 08:40] LABS: POTASSIUM 4.6 mmol/L (3.5-5.1)
[2023-03-11 08:42] LABS: BLOOD UREA NITROGEN 21.6 mg/dL (7-18); CALCIUM 8.8 mg/dL (8.5-10.1)
[2023-03-11] MEDS: TAMSULOSIN HCL 0.4 MG CAP PO SCH (09:09)
[2023-03-11] MEDS: APIXABAN 5 MG TABLET PO SCH ×2 (10:04→22:54)
[2023-03-11] MEDS: MIDODRINE HCL 5 MG TABLET PO SCH ×3 (10:04→17:45)
[2023-03-11] MEDS: DIGOXIN 0.125 MG TABLET PO SCH (10:04)
[2023-03-11] MEDS: PANTOPRAZOLE 40 MG TABLET PO SCH (10:09)
[2023-03-11] MEDS: SACUBITRIL/VALSARTAN 24 MG-26 MG TABLET PO SCH ×2 (10:09→22:54)
[2023-03-11] MEDS: URSODIOL 300 MG CAPSULE PO SCH ×2 (10:09→22:53)
[2023-03-11] MEDS: FINASTERIDE 5 MG TABLET (FP) PO SCH (10:10)
[2023-03-11] MEDS: DOCUSATE SODIUM 100 MG CAPSULE (FP) PO SCH (22:53)
[2023-03-12] MEDS: METOPROLOL TARTRATE 25 MG TABLET (FP) PO SCH ×3 (06:35→22:15)
[2023-03-12] MEDS: dilTIAZem HCL 60 MG TABLET PO SCH ×3 (06:35→22:15)
[2023-03-12] MEDS: TAMSULOSIN HCL 0.4 MG CAP PO SCH (08:47)
[2023-03-12] MEDS: SACUBITRIL/VALSARTAN 24 MG-26 MG TABLET PO SCH ×2 (11:15→22:15)
[2023-03-12] MEDS: URSODIOL 300 MG CAPSULE PO SCH ×2 (11:16→22:15)
[2023-03-12] MEDS: oxyCODONE HCL 5 MG TABLET PO PRN ×2 (11:16→18:16)
[2023-03-12] MEDS: FINASTERIDE 5 MG TABLET (FP) PO SCH (11:17)
[2023-03-12] MEDS: PANTOPRAZOLE 40 MG TABLET PO SCH (11:17)
[2023-03-12] MEDS: DIGOXIN 0.125 MG TABLET PO SCH (11:17)
[2023-03-12] MEDS: MIDODRINE HCL 5 MG TABLET PO SCH ×3 (11:17→18:14)
[2023-03-12] MEDS: APIXABAN 5 MG TABLET PO SCH ×2 (11:17→22:15)
[2023-03-12] MEDS: AMINO ACIDS/PROTEIN HYDROLYS 30 ML LIQUID.PKT PO SCH (18:13)
[2023-03-12] MEDS: DOCUSATE SODIUM 100 MG CAPSULE (FP) PO SCH (22:15)
[2023-03-13] MEDS: oxyCODONE HCL 5 MG TABLET PO PRN ×3 (03:52→17:48)
[2023-03-13] MEDS: METOPROLOL TARTRATE 25 MG TABLET (FP) PO SCH ×3 (05:57→22:11)
[2023-03-13] MEDS: dilTIAZem HCL 60 MG TABLET PO SCH ×3 (05:58→22:12)
[2023-03-13 08:21] LABS: BASO % 0.8 % (0-2.0); EOS % 4.6 % (0-4.5); HEMATOCRIT 33.3 % (35.4-49); HEMOGLOBIN 10.5 GM/dL (11.7-16.9); LYMPH % 25.5 % (8-40); MCH 33.7 pg (25.7-33.7); MCHC 31.5 g/dl (32.0-35.9); MEAN CELL VOLUME 106.9 fl (80-96); MONO % 5.8 % (3.8-10.2); NEUT % 63.3 % (42.8-82.8); PLATELET COUNT 247 10^3/uL (134-434); RBC 3.11 M/mm3 (4.00-5.60); RDW 19.5 % (11.9-15.9); WHITE BLOOD COUNT 7.4 K/mm3 (4.0-10.0)
[2023-03-13 09:18] LABS: POTASSIUM 4.2 mmol/L (3.5-5.1)
[2023-03-13 09:31] LABS: CALCIUM 8.4 mg/dL (8.5-10.1)
[2023-03-13 09:32] LABS: ALBUMIN 3.1 g/dl (3.4-5.0)
[2023-03-13 09:34] LABS: CREATININE 0.8 mg/dL (0.55-1.3)
[2023-03-13 09:36] LABS: BILIRUBIN,TOTAL 0.6 mg/dL (0.2-1); TOT PROT 5.7 g/dl (6.4-8.2)
[2023-03-13] MEDS ORDERED: ASCORBIC ACID 250 MG TABLET (FP) PO SCH (10:00)
[2023-03-13] MEDS ORDERED: MULTIVITAMINS (DAILY MVI) TABLET (FP) PO SCH (10:00)
[2023-03-13] MEDS: PANTOPRAZOLE 40 MG TABLET PO SCH (10:19)
[2023-03-13] MEDS: FINASTERIDE 5 MG TABLET (FP) PO SCH (10:19)
[2023-03-13] MEDS: APIXABAN 5 MG TABLET PO SCH ×2 (10:19→22:12)
[2023-03-13] MEDS: MIDODRINE HCL 5 MG TABLET PO SCH ×3 (10:20→17:49)
[2023-03-13] MEDS: DIGOXIN 0.125 MG TABLET PO SCH (10:20)
[2023-03-13] MEDS: TAMSULOSIN HCL 0.4 MG CAP PO SCH (10:20)
[2023-03-13] MEDS: SACUBITRIL/VALSARTAN 24 MG-26 MG TABLET PO SCH ×2 (10:20→22:12)
[2023-03-13] MEDS: URSODIOL 300 MG CAPSULE PO SCH ×2 (10:20→22:13)
[2023-03-13] MEDS: AMINO ACIDS/PROTEIN HYDROLYS 30 ML LIQUID.PKT PO SCH ×2 (10:22→17:49)
[2023-03-13 18:29] VITALS: RESP 18
[2023-03-13] MEDS: DOCUSATE SODIUM 100 MG CAPSULE (FP) PO SCH (22:11)
[2023-03-13] MEDS: ACETAMINOPHEN 325 MG TABLET (FP) PO PRN (22:12)
[2023-03-13 22:25] VITALS: BP 101/60; PULSE 96; TEMP 98.4
== END 2023-03-13 23:30 | disposition home or self-care (01) | DRG 178 ==
LOC: JER 06:26 → JERBED 09:41 → INTOOBSV 09:41 → UNDOADMOB 09:41 → JERBED 11:22 → J4S 03-11 01:13 → JERBED 03-11 01:13 → J4S 03-11 01:13 → OBSVTOIN 03-12 09:53
PROVIDERS: ADMIT Internal Medicine
PROC: 0T9B70Z Drainage of Bladder with Drainage Device, Via Natural or Artificial Opening (ICD-10-PCS; principal; 2023-03-11)
DX: U07.1 COVID-19 (principal); G82.20 Paraplegia, unspecified; G91.2 (Idiopathic) normal pressure hydrocephalus; I13.0 Hypertensive heart and chronic kidney disease with heart failure and stage 1 through stage 4 chronic kidney disease, or unspecified chronic kidney disease; I50.22 Chronic systolic (congestive) heart failure; J96.11 Chronic respiratory failure with hypoxia; I48.0 Paroxysmal atrial fibrillation; F41.0 Panic disorder [episodic paroxysmal anxiety]; I10 Essential (primary) hypertension; E78.5 Hyperlipidemia, unspecified; K59.00 Constipation, unspecified; N40.0 Benign prostatic hyperplasia without lower urinary tract symptoms; F41.8 Other specified anxiety disorders; J44.9 Chronic obstructive pulmonary disease, unspecified; K21.9 Gastro-esophageal reflux disease without esophagitis; K44.9 Diaphragmatic hernia without obstruction or gangrene; I44.7 Left bundle-branch block, unspecified; R79.89 Other specified abnormal findings of blood chemistry; R33.9 Retention of urine, unspecified; N18.9 Chronic kidney disease, unspecified; K80.50 Calculus of bile duct without cholangitis or cholecystitis without obstruction
CPT/HCPCS: 0241U-QW; 36415; 71045-TC-FY; 80048; 80053; 82550; 82553; 83735; 83880; 84443; 84484; 85025; 85610; 85730; 86850; 86900; 86901; 93005; 93010; 97161-GP; 99285-25; G0378

== ENCOUNTER 2023-04-12 01:00 | Inpatient (IN) | payer OTHER, BC ==
[2023-04-12] MEDS ORDERED: SODIUM CHLORIDE 1,769 ML IV ONE (02:06)
[2023-04-12] MEDS ORDERED: SODIUM CHLORIDE 0.9% 500 ML INFUS.BAG IV ONE (02:18)
[2023-04-12] MEDS ORDERED: ONDANSETRON 4 MG/2 ML VIAL IVPUSH ONE (02:50)
[2023-04-12] MEDS ORDERED: ONDANSETRON 4 MG/2 ML VIAL ONE (02:57)
[2023-04-12 03:12] LABS: VENOUS BASE EXCESS -2.3 mmol/L (-2-2); VENOUS O2 SATURATION 89.6 % (70-80); VENOUS PCO2 32.5 mmHg (38-52); VENOUS PH 7.433 (7.310-7.410)
[2023-04-12 03:13] LABS: BASO % 0.7 % (0-2.0); EOS % 3.6 % (0-4.5); HEMATOCRIT 32.1 % (35.4-49); HEMOGLOBIN 10.4 GM/dL (11.7-16.9); LYMPH % 20.6 % (8-40); MCH 32.8 pg (25.7-33.7); MCHC 32.5 g/dl (32.0-35.9); MEAN CELL VOLUME 100.9 fl (80-96); MONO % 6.9 % (3.8-10.2); NEUT % 68.2 % (42.8-82.8); PLATELET COUNT 240 10^3/uL (134-434); RBC 3.18 M/mm3 (4.00-5.60); RDW 18.8 % (11.9-15.9); WHITE BLOOD COUNT 9.2 K/mm3 (4.0-10.0)
[2023-04-12 03:16] LABS: EPI CELLS >36 /uL (0-25.1); HYALINE CASTS 18 /uL (0-3.1); PH,URINE 5.5 (5.0-8.0); URINE APPEARANCE TURBID; URINE BACTERIA >9,000 /uL (0-1359); URINE BILIRUBIN NEGATIVE (NEGATIVE); URINE COLOR ORANGE; URINE GLUCOSE (UA) NEGATIVE (NEGATIVE); URINE KETONE TRACE (NEGATIVE); URINE LEUK ESTERASE 3+ (NEGATIVE); URINE NITRITE POSITIVE (NEGATIVE); URINE PROTEIN 2+ (NEGATIVE); URINE WBC 4146 /uL (0-25.8)
[2023-04-12 03:24] LABS: INR 1.61 (0.83-1.09); PROTHROMBIN TIME (PATIENT) 18.6 SEC (9.7-13.0)
[2023-04-12 03:27] LABS: ACTIVATED PTT 37.9 SECONDS (25.2-36.5)
[2023-04-12 03:37] LABS: POTASSIUM 4.5 mmol/L (3.5-5.1)
[2023-04-12 03:39] LABS: CALCIUM 7.9 mg/dL (8.5-10.1)
[2023-04-12 03:40] LABS: ALBUMIN 3.1 g/dl (3.4-5.0); BLOOD UREA NITROGEN 20.6 mg/dL (7-18)
[2023-04-12 03:43] LABS: CREATININE 0.8 mg/dL (0.55-1.3)
[2023-04-12 03:45] LABS: BILIRUBIN,TOTAL 0.2 mg/dL (0.2-1); TOT PROT 5.9 g/dl (6.4-8.2)
[2023-04-12 03:47] LABS: LACTIC ACID 2.2 mmol/L (0.4-2.0)
[2023-04-12 03:48] LABS: N-TERMINAL BNP 3149.9 pg/ml (5-450)
[2023-04-12] MEDS ORDERED: VANCOMYCIN 1,000 MG in DEXTROSE 5%-WATER - 250 ML IVPB ONE (04:16)
[2023-04-12] MEDS ORDERED: VANCOMYCIN 1 GRAM (PRE-DOCKED) 1,000 MG/250 ML BAG IVPB ONE (04:22)
[2023-04-12] MEDS ORDERED: oxyCODONE HCL 5 MG TABLET PO PRN (08:01)
[2023-04-12 08:07] LABS: YEAST MODERATE (NEGATIVE)
[2023-04-12 08:08] LABS: URINE CRYSTALS NONE SEEN /hpf; URINE RBC 3335.9 /uL (0-23.9)
[2023-04-12] MEDS: CEFTRIAXONE 1 GM in DEXTROSE 5%-WATER - 50 ML IVPB SCH (11:12)
[2023-04-12] MEDS: SACUBITRIL/VALSARTAN 24 MG-26 MG TABLET PO SCH ×2 (11:13→23:42)
[2023-04-12] MEDS: APIXABAN 5 MG TABLET PO SCH ×2 (11:13→23:44)
[2023-04-12] MEDS: POLYETHYLENE GLYCOL (HEALTHYLAX) 3350 17 GM PACKET PO SCH ×2 (11:13→23:45)
[2023-04-12] MEDS: PANTOPRAZOLE 40 MG TABLET PO SCH (11:13)
[2023-04-12] MEDS: FINASTERIDE 5 MG TABLET (FP) PO SCH (11:13)
[2023-04-12] MEDS: URSODIOL 300 MG CAPSULE PO SCH ×2 (11:13→23:46)
[2023-04-12] MEDS: DIGOXIN 0.125 MG TABLET PO SCH (11:13)
[2023-04-12] MEDS: MIDODRINE HCL 5 MG TABLET PO SCH ×3 (11:13→18:28)
[2023-04-12] MEDS: dilTIAZem HCL 60 MG TABLET PO SCH ×2 (15:53→23:46)
[2023-04-12] MEDS: METOPROLOL TARTRATE 25 MG TABLET (FP) PO SCH ×2 (15:53→23:42)
[2023-04-12 16:41] LABS: EPI CELLS 14 /uL (0-25.1); HYALINE CASTS 4 /uL (0-3.1); PH,URINE 5.5 (5.0-8.0); URINE APPEARANCE Cloudy; URINE BACTERIA >9,000 /uL (0-1359); URINE BILIRUBIN Negative (NEGATIVE); URINE COLOR Yellow; URINE GLUCOSE (UA) Negative (NEGATIVE); URINE KETONE Negative (NEGATIVE); URINE LEUK ESTERASE Moderate (NEGATIVE); URINE NITRITE Positive (NEGATIVE); URINE PROTEIN Negative (NEGATIVE); URINE RBC 769 /uL (0-23.9); URINE WBC 1258 /uL (0-25.8)
[2023-04-12] MEDS: DOCUSATE SODIUM 100 MG CAPSULE (FP) PO SCH (23:42)
[2023-04-13] MEDS: METOPROLOL TARTRATE 25 MG TABLET (FP) PO SCH ×3 (06:44→22:51)
[2023-04-13] MEDS: dilTIAZem HCL 60 MG TABLET PO SCH ×3 (06:46→22:54)
[2023-04-13] MEDS: APIXABAN 5 MG TABLET PO SCH ×2 (10:20→22:49)
[2023-04-13] MEDS: FINASTERIDE 5 MG TABLET (FP) PO SCH (10:20)
[2023-04-13] MEDS: MIDODRINE HCL 5 MG TABLET PO SCH ×3 (10:20→17:32)
[2023-04-13] MEDS: SACUBITRIL/VALSARTAN 24 MG-26 MG TABLET PO SCH ×2 (10:20→22:48)
[2023-04-13] MEDS: PANTOPRAZOLE 40 MG TABLET PO SCH (10:20)
[2023-04-13] MEDS: CEFTRIAXONE 1 GM in DEXTROSE 5%-WATER - 50 ML IVPB SCH (10:21)
[2023-04-13] MEDS: POLYETHYLENE GLYCOL (HEALTHYLAX) 3350 17 GM PACKET PO SCH ×2 (10:21→22:53)
[2023-04-13] MEDS: URSODIOL 300 MG CAPSULE PO SCH ×2 (10:22→22:53)
[2023-04-13] MEDS: DIGOXIN 0.125 MG TABLET PO SCH (10:42)
[2023-04-13] MEDS ORDERED: MIDODRINE HCL 5 MG TABLET PO SCH (13:42)
[2023-04-13] MEDS: DOCUSATE SODIUM 100 MG CAPSULE (FP) PO SCH (22:49)
[2023-04-14] MEDS: METOPROLOL TARTRATE 25 MG TABLET (FP) PO SCH ×3 (07:06→22:03)
[2023-04-14] MEDS: dilTIAZem HCL 60 MG TABLET PO SCH ×3 (07:07→22:06)
[2023-04-14] MEDS: DIGOXIN 0.125 MG TABLET PO SCH (10:13)
[2023-04-14] MEDS: oxyCODONE HCL 5 MG TABLET PO PRN ×3 (10:14→22:07)
[2023-04-14] MEDS: PANTOPRAZOLE 40 MG TABLET PO SCH (10:15)
[2023-04-14] MEDS: MIDODRINE HCL 5 MG TABLET PO SCH ×3 (10:15→17:38)
[2023-04-14] MEDS: SACUBITRIL/VALSARTAN 24 MG-26 MG TABLET PO SCH ×2 (10:15→22:03)
[2023-04-14] MEDS: FINASTERIDE 5 MG TABLET (FP) PO SCH (10:15)
[2023-04-14] MEDS: APIXABAN 5 MG TABLET PO SCH ×2 (10:16→22:02)
[2023-04-14] MEDS: URSODIOL 300 MG CAPSULE PO SCH ×2 (10:16→22:06)
[2023-04-14] MEDS: POLYETHYLENE GLYCOL (HEALTHYLAX) 3350 17 GM PACKET PO SCH ×2 (10:16→22:04)
[2023-04-14] MEDS: CEFTRIAXONE 1 GM in DEXTROSE 5%-WATER - 50 ML IVPB SCH (10:16)
[2023-04-14 11:15] LABS: BASO % 0.3 % (0-2.0); EOS % 2.7 % (0-4.5); HEMATOCRIT 33.9 % (35.4-49); HEMOGLOBIN 11.1 GM/dL (11.7-16.9); LYMPH % 33.4 % (8-40); MCH 32.8 pg (25.7-33.7); MCHC 32.7 g/dl (32.0-35.9); MEAN CELL VOLUME 100.6 fl (80-96); MEAN PLT VOLUME 9.3 fl (7.5-11.1); MONO % 5.2 % (3.8-10.2); NEUT % 58.4 % (42.8-82.8); PLATELET COUNT 263 10^3/uL (134-434); RBC 3.37 M/mm3 (4.00-5.60); RDW 18.6 % (11.9-15.9); WHITE BLOOD COUNT 8.6 K/mm3 (4.0-10.0)
[2023-04-14 11:52] LABS: BLOOD UREA NITROGEN 16.2 mg/dL (7-18)
[2023-04-14 11:53] LABS: ALBUMIN 2.9 g/dl (3.4-5.0); CALCIUM 8.2 mg/dL (8.5-10.1)
[2023-04-14 11:55] LABS: CREATININE 0.8 mg/dL (0.55-1.3)
[2023-04-14 11:56] LABS: BILIRUBIN,TOTAL 0.3 mg/dL (0.2-1); MAGNESIUM 1.4 mg/dL (1.8-2.4); TOT PROT 5.9 g/dl (6.4-8.2)
[2023-04-14 15:43] VITALS: BMI 19.8
[2023-04-14] MEDS: DOCUSATE SODIUM 100 MG CAPSULE (FP) PO SCH (22:04)
[2023-04-14 23:09] VITALS: RESP 18
[2023-04-15] MEDS: oxyCODONE HCL 5 MG TABLET PO PRN ×3 (05:16→17:19)
[2023-04-15] MEDS: METOPROLOL TARTRATE 25 MG TABLET (FP) PO SCH ×3 (06:55→22:14)
[2023-04-15] MEDS: dilTIAZem HCL 60 MG TABLET PO SCH ×3 (06:56→22:13)
[2023-04-15 10:01] LABS: BASO % 1.1 % (0-2.0); EOS % 4.3 % (0-4.5); HEMATOCRIT 32.5 % (35.4-49); HEMOGLOBIN 10.5 GM/dL (11.7-16.9); MCHC 32.2 g/dl (32.0-35.9); MEAN CELL VOLUME 102.5 fl (80-96); MEAN PLT VOLUME 9.4 fl (7.5-11.1); MONO % 6.3 % (3.8-10.2); NEUT % 56.3 % (42.8-82.8); PLATELET COUNT 259 10^3/uL (134-434); RBC 3.17 M/mm3 (4.00-5.60); RDW 18.3 % (11.9-15.9); WHITE BLOOD COUNT 9.3 K/mm3 (4.0-10.0)
[2023-04-15] MEDS: DIGOXIN 0.125 MG TABLET PO SCH (10:23)
[2023-04-15 10:24] LABS: POTASSIUM 4.2 mmol/L (3.5-5.1)
[2023-04-15 10:29] LABS: BLOOD UREA NITROGEN 16.5 mg/dL (7-18); CALCIUM 8.1 mg/dL (8.5-10.1)
[2023-04-15 10:30] LABS: ALBUMIN 3.1 g/dl (3.4-5.0); MAGNESIUM 1.4 mg/dL (1.8-2.4)
[2023-04-15] MEDS: APIXABAN 5 MG TABLET PO SCH ×2 (10:30→22:13)
[2023-04-15] MEDS: FINASTERIDE 5 MG TABLET (FP) PO SCH (10:30)
[2023-04-15] MEDS: PANTOPRAZOLE 40 MG TABLET PO SCH (10:30)
[2023-04-15] MEDS: MIDODRINE HCL 5 MG TABLET PO SCH ×3 (10:30→17:20)
[2023-04-15] MEDS: CEFTRIAXONE 1 GM in DEXTROSE 5%-WATER - 50 ML IVPB SCH (10:30)
[2023-04-15] MEDS: POLYETHYLENE GLYCOL (HEALTHYLAX) 3350 17 GM PACKET PO SCH ×2 (10:31→22:13)
[2023-04-15] MEDS: SACUBITRIL/VALSARTAN 24 MG-26 MG TABLET PO SCH ×2 (10:31→22:13)
[2023-04-15 10:32] LABS: CREATININE 0.8 mg/dL (0.55-1.3)
[2023-04-15 10:34] LABS: BILIRUBIN,TOTAL 0.2 mg/dL (0.2-1); TOT PROT 5.7 g/dl (6.4-8.2)
[2023-04-15] MEDS: URSODIOL 300 MG CAPSULE PO SCH ×2 (11:03→22:13)
[2023-04-15] MEDS ORDERED: MAGNESIUM OXIDE 400 MG TABLET (FP) PO ONE (15:33)
[2023-04-15] MEDS ORDERED: COLLAGENASE CLOSTRIDIUM HIST. 30 GRAMS TUBE TP SCH (18:00)
[2023-04-15 22:08] VITALS: BP 107/57; PULSE 76; TEMP 98
[2023-04-15] MEDS: DOCUSATE SODIUM 100 MG CAPSULE (FP) PO SCH (22:13)
[2023-04-16] MEDS: oxyCODONE HCL 5 MG TABLET PO PRN (02:35)
== END 2023-04-16 02:56 | disposition home or self-care (01) | DRG 689 ==
LOC: JER 01:00 → JERBED 02:19 → J8W 18:07
PROVIDERS: ADMIT Internal Medicine; ATTEND Nurse Practitioner Family
DX: N39.0 Urinary tract infection, site not specified (principal); E43 Unspecified severe protein-calorie malnutrition; U07.1 COVID-19; G82.20 Paraplegia, unspecified; B96.20 Unspecified Escherichia coli [E. coli] as the cause of diseases classified elsewhere; Z68.20 Body mass index [BMI] 20.0-20.9, adult; E78.5 Hyperlipidemia, unspecified; I48.91 Unspecified atrial fibrillation; I11.0 Hypertensive heart disease with heart failure; I50.9 Heart failure, unspecified; K59.00 Constipation, unspecified; R33.9 Retention of urine, unspecified; M54.9 Dorsalgia, unspecified; K57.30 Diverticulosis of large intestine without perforation or abscess without bleeding; J44.9 Chronic obstructive pulmonary disease, unspecified; F41.8 Other specified anxiety disorders; K21.9 Gastro-esophageal reflux disease without esophagitis; K44.9 Diaphragmatic hernia without obstruction or gangrene; N40.0 Benign prostatic hyperplasia without lower urinary tract symptoms; G20 Parkinson's disease; Z97.8 Presence of other specified devices
CPT/HCPCS: 0241U-QW; 36415; 71045-TC-FY; 74177-TC; 80053; 81003; 82550; 82553; 82803; 83605; 83735; 83880; 84484; 85025; 85610; 85730; 86140; 87040; 87086; 87186; 93005; 93010; 97161-GP; 99285-25; G0480; Q9967

== ENCOUNTER 2023-05-06 12:03 | Inpatient (IN) | payer OTHER, BC ==
[2023-05-06 12:37] VITALS: BMI 23.5
[2023-05-06] MEDS ORDERED: dilTIAZem HCL 50 MG/10 ML - 10 ML VIAL IVPUSH ONE (12:43)
[2023-05-06] MEDS ORDERED: dilTIAZem HCL 125 MG/25 ML - 25 ML VIAL ONE (12:49)
[2023-05-06] MEDS ORDERED: ACETAMINOPHEN 1000 MG/100 ML BAG IVPB ONE (13:01)
[2023-05-06 13:03] LABS: VENOUS BASE EXCESS -5.9 mmol/L (-2-2); VENOUS O2 SATURATION 98.8 % (70-80); VENOUS PCO2 23.8 mmHg (38-52); VENOUS PH 7.457 (7.310-7.410)
[2023-05-06 13:08] LABS: BASO % 0.3 % (0-2.0); EOS % 0.1 % (0-4.5); HEMATOCRIT 34.7 % (35.4-49); HEMOGLOBIN 11.1 GM/dL (11.7-16.9); LYMPH % 6.4 % (8-40); MCH 32.5 pg (25.7-33.7); MCHC 31.9 g/dl (32.0-35.9); MEAN CELL VOLUME 101.7 fl (80-96); MEAN PLT VOLUME 9.4 fl (7.5-11.1); MONO % 3.2 % (3.8-10.2); PLATELET COUNT 228 10^3/uL (134-434); RBC 3.41 M/mm3 (4.00-5.60); RDW 18.8 % (11.9-15.9); WHITE BLOOD COUNT 12.3 K/mm3 (4.0-10.0)
[2023-05-06] MEDS ORDERED: ACETAMINOPHEN INJECTION 100 ML IVPB ONE (13:11)
[2023-05-06 13:13] LABS: INR 1.47 (0.83-1.09)
[2023-05-06 13:15] LABS: ACTIVATED PTT 34.6 SECONDS (25.2-36.5)
[2023-05-06 13:24] LABS: POTASSIUM 4.2 mmol/L (3.5-5.1)
[2023-05-06 13:27] LABS: BLOOD UREA NITROGEN 24.4 mg/dL (7-18); CALCIUM 8.4 mg/dL (8.5-10.1); MAGNESIUM 1.3 mg/dL (1.8-2.4)
[2023-05-06 13:30] LABS: CREATININE 1.2 mg/dL (0.55-1.3)
[2023-05-06] MEDS ORDERED: DIGOXIN 0.5 MG/2 ML AMPUL IVPUSH ONE ×2 (13:30→23:00)
[2023-05-06 13:31] LABS: LACTIC ACID 7.6 mmol/L (0.4-2.0)
[2023-05-06 13:32] LABS: BILIRUBIN,TOTAL 2.8 mg/dL (0.2-1); TOT PROT 6.3 g/dl (6.4-8.2)
[2023-05-06] MEDS ORDERED: SODIUM CHLORIDE 500 ML IV STA (13:38)
[2023-05-06] MEDS ORDERED: DIGOXIN 0.5 MG/2 ML AMPUL ONE (13:57)
[2023-05-06 15:18] LABS: EPI CELLS 3 /uL (0-25.1); HYALINE CASTS 0 /uL (0-3.1); PH,URINE 5.5 (5.0-8.0); URINE APPEARANCE CLOUDY; URINE BACTERIA >9,000 /uL (0-1359); URINE BILIRUBIN 2+ (NEGATIVE); URINE COLOR DK YELLOW; URINE GLUCOSE (UA) NEGATIVE (NEGATIVE); URINE KETONE TRACE (NEGATIVE); URINE LEUK ESTERASE 3+ (NEGATIVE); URINE NITRITE NEGATIVE (NEGATIVE); URINE PROTEIN 1+ (NEGATIVE); URINE WBC 1872 /uL (0-25.8)
[2023-05-06 15:26] LABS: URINE RBC 168.7 /uL (0-23.9); YEAST NEGATIVE (NEGATIVE)
[2023-05-06] MEDS ORDERED: CEFTRIAXONE 1,000 MG in DEXTROSE 5%-WATER - 50 ML IVPB ONE (16:23)
[2023-05-06] MEDS ORDERED: CEFTRIAXONE 1 GM/50 ML BAG ONE (16:33)
[2023-05-06] MEDS ORDERED: MINERAL OIL ENEMA 133 ML ENEMA PR ONE (18:17)
[2023-05-06] MEDS ORDERED: KETOROLAC TROMETHAMINE 30 MG/1 ML VIAL ONE (19:49)
[2023-05-06] MEDS ORDERED: PATIENT'S OWN MEDICATION (NON-FORMULARY) (Levalbuterol Tartrate [Levalbuterol Tartrate Hfa PO PRN (21:49)
[2023-05-06] MEDS ORDERED: PIPERACILLIN/TAZOB 3.375 GM 3.375 GM in DEXTROSE 5%-WATER - 50 ML IVPB SCH (22:45)
[2023-05-06] MEDS ORDERED: PIPERACILLIN/TAZOB 3.375 GM 3.375 GM/50 ML BAG IVPB ONE (23:50)
[2023-05-06] MEDS: APIXABAN 5 MG TABLET PO SCH (23:55)
[2023-05-07] MEDS: dilTIAZem HCL 60 MG TABLET PO SCH ×2 (00:10→06:16)
[2023-05-07] MEDS ORDERED: METOPROLOL TARTRATE 25 MG TABLET (FP) ONE ×2 (00:26→06:16)
[2023-05-07] MEDS: METOPROLOL TARTRATE 25 MG TABLET (FP) PO SCH ×2 (00:29→06:16)
[2023-05-07] MEDS: URSODIOL 300 MG CAPSULE PO SCH ×2 (01:10→09:06)
[2023-05-07] MEDS ORDERED: MAGNESIUM SULF 50% (8.12 MEQ/2 ML-1 GM VIAL) IVPB ONE (01:15)
[2023-05-07] MEDS ORDERED: DIGOXIN 0.5 MG/2 ML AMPUL IVPUSH ONE (03:00)
[2023-05-07] MEDS ORDERED: MAGNESIUM SULFATE IN WATER 2 GM/50 ML IVPB IVPB ONE (03:45)
[2023-05-07] MEDS ORDERED: oxyCODONE HCL 5 MG TABLET PO ONE (04:07)
[2023-05-07] MEDS ORDERED: PIPERACILLIN/TAZOB 3.375 GM 3.375 GM in DEXTROSE 5%-WATER - 50 ML IVPB SCH (05:00)
[2023-05-07] MEDS ORDERED: PIPERACILLIN/TAZOB 3.375 GM 3.375 GM/50 ML BAG IVPB ONE ×2 (05:51→08:38)
[2023-05-07] MEDS ORDERED: dilTIAZem HCL 60 MG TABLET ONE (06:16)
[2023-05-07 07:34] LABS: HEMATOCRIT 32.2 % (35.4-49); HEMOGLOBIN 10.3 GM/dL (11.7-16.9); MCH 32.5 pg (25.7-33.7); MCHC 31.9 g/dl (32.0-35.9); MEAN CELL VOLUME 101.9 fl (80-96); MEAN PLT VOLUME 9.8 fl (7.5-11.1); PLATELET COUNT 234 10^3/uL (134-434); RBC 3.16 M/mm3 (4.00-5.60); WHITE BLOOD COUNT 12.3 K/mm3 (4.0-10.0)
[2023-05-07] MEDS ORDERED: POLYETHYLENE GLYCOL (HEALTHYLAX) 3350 17 GM PACKET ONE (07:39)
[2023-05-07] MEDS ORDERED: TAMSULOSIN HCL 0.4 MG CAP ONE (07:39)
[2023-05-07] MEDS ORDERED: MIDODRINE HCL 5 MG TABLET ONE (07:39)
[2023-05-07] MEDS ORDERED: APIXABAN 5 MG TABLET ONE (07:39)
[2023-05-07] MEDS ORDERED: PANTOPRAZOLE SODIUM 40 MG VIAL ONE (07:40)
[2023-05-07 07:46] LABS: POTASSIUM 3.8 mmol/L (3.5-5.1)
[2023-05-07 07:49] LABS: ALBUMIN 2.9 g/dl (3.4-5.0); BLOOD UREA NITROGEN 22.9 mg/dL (7-18); CALCIUM 8.3 mg/dL (8.5-10.1); MAGNESIUM 1.9 mg/dL (1.8-2.4)
[2023-05-07] MEDS ORDERED: PANTOPRAZOLE 40 MG TABLET PO ONE (07:51)
[2023-05-07 07:52] LABS: BILIRUBIN,DIRECT 3.9 mg/dL (0.0-0.2); CREATININE 0.9 mg/dL (0.55-1.3); PHOSPHOROUS 2.8 mg/dL (2.5-4.9)
[2023-05-07 07:54] LABS: BILIRUBIN,TOTAL 4.2 mg/dL (0.2-1); TOT PROT 6.1 g/dl (6.4-8.2)
[2023-05-07] MEDS ORDERED: TAMSULOSIN HCL 0.4 MG CAP PO SCH (08:30)
[2023-05-07] MEDS: APIXABAN 5 MG TABLET PO SCH (09:06)
[2023-05-07] MEDS ORDERED: PANTOPRAZOLE 40 MG TABLET PO SCH (10:00)
[2023-05-07] MEDS ORDERED: POLYETHYLENE GLYCOL (HEALTHYLAX) 3350 17 GM PACKET PO SCH (10:00)
[2023-05-07] MEDS ORDERED: FINASTERIDE 5 MG TABLET (FP) PO SCH (10:00)
[2023-05-07] MEDS ORDERED: MIDODRINE HCL 5 MG TABLET PO SCH (10:00)
[2023-05-07 10:03] VITALS: BP 106/67; PULSE 81; TEMP 98.1
[2023-05-07 10:04] VITALS: RESP 18
[2023-05-08] MEDS ORDERED: DIGOXIN 0.125 MG TABLET PO SCH (10:00)
== END 2023-05-07 10:42 | disposition short-term general hospital (02) | DRG 919 ==
LOC: JER 12:03 → JERBED 15:26
PROVIDERS: ADMIT Internal Medicine
DX: T85.590A Other mechanical complication of bile duct prosthesis, initial encounter (principal); A41.9 Sepsis, unspecified organism; J18.9 Pneumonia, unspecified organism; J44.0 Chronic obstructive pulmonary disease with (acute) lower respiratory infection; G82.20 Paraplegia, unspecified; J96.10 Chronic respiratory failure, unspecified whether with hypoxia or hypercapnia; E87.20 Acidosis, unspecified; I50.20 Unspecified systolic (congestive) heart failure; K83.09 Other cholangitis; N39.0 Urinary tract infection, site not specified; I24.8 Other forms of acute ischemic heart disease; T83.511A Infection and inflammatory reaction due to indwelling urethral catheter, initial encounter; K21.9 Gastro-esophageal reflux disease without esophagitis; E78.5 Hyperlipidemia, unspecified; I48.91 Unspecified atrial fibrillation; K59.09 Other constipation; F41.8 Other specified anxiety disorders; M54.16 Radiculopathy, lumbar region; E83.42 Hypomagnesemia; R74.01 Elevation of levels of liver transaminase levels; Y83.9 Surgical procedure, unspecified as the cause of abnormal reaction of the patient, or of later complication, without mention of misadventure at the time of the procedure; I12.9 Hypertensive chronic kidney disease with stage 1 through stage 4 chronic kidney disease, or unspecified chronic kidney disease; N18.30 Chronic kidney disease, stage 3 unspecified; R33.9 Retention of urine, unspecified
CPT/HCPCS: 0241U-QW; 36415; 71045-TC-FY; 74174-TC; 76705-TC; 80048; 80053; 80076; 81003; 82550; 82803; 83605; 83690; 83735; 84100; 84484; 85025; 85027; 85610; 85730; 86850; 86900; 86901; 87040; 87086; 87186; 93005; 93010; 99291

== ENCOUNTER 2023-06-11 18:45 | Inpatient (IN) | payer OTHER, BC ==
[2023-06-11] MEDS ORDERED: ACETAMINOPHEN 1000 MG/100 ML BAG IVPB ONE (19:51)
[2023-06-11] MEDS ORDERED: SODIUM CHLORIDE 0.9% 500 ML INFUS.BAG IV ONE (19:55)
[2023-06-11] MEDS ORDERED: ACETAMINOPHEN INJECTION 100 ML IVPB ONE (20:11)
[2023-06-11 20:47] LABS: BASO % 1.5 % (0-2.0); EOS % 3.7 % (0-4.5); HEMATOCRIT 30.7 % (35.4-49); HEMOGLOBIN 9.9 GM/dL (11.7-16.9); LYMPH % 19.8 % (8-40); MCH 33.1 pg (25.7-33.7); MCHC 32.2 g/dl (32.0-35.9); MEAN CELL VOLUME 102.9 fl (80-96); MEAN PLT VOLUME 8.3 fl (7.5-11.1); MONO % 7.6 % (3.8-10.2); NEUT % 67.4 % (42.8-82.8); PLATELET COUNT 267 10^3/uL (134-434); RBC 2.98 M/mm3 (4.00-5.60); RDW 21.4 % (11.9-15.9); WHITE BLOOD COUNT 6.4 K/mm3 (4.0-10.0)
[2023-06-11] MEDS ORDERED: PIPERACILLIN/TAZOB 4.5 GM 4.5 GM in DEXTROSE 5%-WATER 100 ML IVPB ONE (20:51)
[2023-06-11] MEDS ORDERED: VANCOMYCIN 1,000 MG in DEXTROSE 5%-WATER - 250 ML IVPB ONE (20:52)
[2023-06-11] MEDS ORDERED: MAGNESIUM SULF 50% (8.12 MEQ/2 ML-1 GM VIAL) IVPB ONE (21:04)
[2023-06-11 21:06] LABS: POTASSIUM 4.1 mmol/L (3.5-5.1)
[2023-06-11 21:07] LABS: CALCIUM 8.7 mg/dL (8.5-10.1)
[2023-06-11 21:08] LABS: BLOOD UREA NITROGEN 20.8 mg/dL (7-18)
[2023-06-11 21:11] LABS: CREATININE 0.8 mg/dL (0.55-1.3)
[2023-06-11] MEDS ORDERED: PIPERACILLIN/TAZOB 4.5 GM 4.5 GM/100 ML BAG IVPB ONE (21:11)
[2023-06-11 21:13] LABS: BILIRUBIN,TOTAL 0.5 mg/dL (0.2-1); TOT PROT 6.6 g/dl (6.4-8.2)
[2023-06-11 21:21] LABS: ANISOCYTOSIS 2+; MACROCYTOSIS 1+; OVALOCYTE 1+
[2023-06-11 21:32] LABS: ALBUMIN 3.3 g/dl (3.4-5.0)
[2023-06-11] MEDS ORDERED: MAGNESIUM 1GM/D5W - 1 GM/100 ML IVPB IVPB ONE (21:33)
[2023-06-11] MEDS ORDERED: VANCOMYCIN 1 GRAM (PRE-DOCKED) 1,000 MG/250 ML BAG IVPB ONE (21:33)
[2023-06-12] MEDS: POLYETHYLENE GLYCOL (HEALTHYLAX) 3350 17 GM PACKET PO SCH ×3 (05:32→22:18)
[2023-06-12] MEDS ORDERED: ALBUTEROL SO4 HFA INHALER IH PRN (06:38)
[2023-06-12] MEDS ORDERED: VANCOMYCIN 1,000 MG in DEXTROSE 5%-WATER - 250 ML IVPB SCH (06:45)
[2023-06-12] MEDS: PIPERACILLIN/TAZOB 3.375 GM 3.375 GM in DEXTROSE 5%-WATER - 50 ML IVPB SCH ×3 (06:46→17:00)
[2023-06-12] MEDS: METOPROLOL TARTRATE 25 MG TABLET (FP) PO SCH ×3 (06:46→22:18)
[2023-06-12] MEDS ORDERED: PIPERACILLIN/TAZOB 3.375 GM 3.375 GM/50 ML BAG IVPB ONE (06:46)
[2023-06-12] MEDS: PANTOPRAZOLE 40 MG TABLET PO SCH ×2 (08:05→08:43)
[2023-06-12] MEDS ORDERED: ACETAMINOPHEN 1000 MG/100 ML BAG IVPB PRN (08:05)
[2023-06-12 08:30] LABS: HEMATOCRIT 28.3 % (35.4-49); HEMOGLOBIN 9.2 GM/dL (11.7-16.9); MCHC 32.6 g/dl (32.0-35.9); MEAN CELL VOLUME 104.3 fl (80-96); MEAN PLT VOLUME 8.6 fl (7.5-11.1); PLATELET COUNT 244 10^3/uL (134-434); RBC 2.71 M/mm3 (4.00-5.60); RDW 21.5 % (11.9-15.9); WHITE BLOOD COUNT 5.9 K/mm3 (4.0-10.0)
[2023-06-12 08:31] LABS: POTASSIUM 3.9 mmol/L (3.5-5.1)
[2023-06-12 08:36] LABS: CALCIUM 8.2 mg/dL (8.5-10.1)
[2023-06-12 08:37] LABS: ALBUMIN 2.9 g/dl (3.4-5.0); BLOOD UREA NITROGEN 17.3 mg/dL (7-18); MAGNESIUM 2.2 mg/dL (1.8-2.4)
[2023-06-12 08:40] LABS: CREATININE 0.8 mg/dL (0.55-1.3); PHOSPHOROUS 3.3 mg/dL (2.5-4.9)
[2023-06-12 08:41] LABS: BILIRUBIN,TOTAL 0.6 mg/dL (0.2-1)
[2023-06-12] MEDS: TAMSULOSIN HCL 0.4 MG CAP PO SCH (08:43)
[2023-06-12] MEDS ORDERED: VANCOMYCIN 1 GRAM (PRE-DOCKED) 1,000 MG/250 ML BAG IVPB ONE (08:45)
[2023-06-12] MEDS ORDERED: MIDODRINE HCL 5 MG TABLET ONE (08:45)
[2023-06-12] MEDS ORDERED: APIXABAN 5 MG TABLET ONE (08:45)
[2023-06-12] MEDS: URSODIOL 300 MG CAPSULE PO SCH ×2 (09:04→22:39)
[2023-06-12] MEDS: APIXABAN 5 MG TABLET PO SCH ×2 (09:04→22:18)
[2023-06-12] MEDS: SACUBITRIL/VALSARTAN 24 MG-26 MG TABLET PO SCH ×2 (09:04→22:18)
[2023-06-12] MEDS: FINASTERIDE 5 MG TABLET (FP) PO SCH (09:05)
[2023-06-12] MEDS: MIDODRINE HCL 5 MG TABLET PO SCH ×3 (09:05→19:22)
[2023-06-12] MEDS: DIGOXIN 0.125 MG TABLET PO SCH (09:05)
[2023-06-12] MEDS ORDERED: VANCOMYCIN 1 GRAM (PRE-DOCKED) 1,000 MG/250 ML BAG IVPB SCH (10:00)
[2023-06-12] MEDS ORDERED: PIPERACILLIN/TAZOB 3.375 GM 3.375 GM in DEXTROSE 5%-WATER - 50 ML IVPB SCH (13:00)
[2023-06-12] MEDS ORDERED: BISACODYL 10 MG SUPP.RECT PR PRN (15:20)
[2023-06-12 17:18] LABS: EPI CELLS 4 /uL (0-25.1); HYALINE CASTS 0 /uL (0-3.1); PH,URINE 5.5 (5.0-8.0); URINE APPEARANCE CLOUDY; URINE BACTERIA 0 /uL (0-1359); URINE BILIRUBIN NEGATIVE (NEGATIVE); URINE COLOR YELLOW; URINE GLUCOSE (UA) NEGATIVE (NEGATIVE); URINE KETONE NEGATIVE (NEGATIVE); URINE LEUK ESTERASE TRACE (NEGATIVE); URINE NITRITE NEGATIVE (NEGATIVE); URINE PROTEIN TRACE (NEGATIVE); URINE RBC 154 /uL (0-23.9); URINE UROBILINOGEN 0.2 mg/dL (0.2-1.0); URINE WBC 19 /uL (0-25.8)
[2023-06-12 18:15] LABS: URINE CRYSTALS URIC ACID /hpf
[2023-06-12] MEDS: VANCOMYCIN/WATER FOR INJ (PEG) 1,000 MG/200 ML BAG IVPB SCH (20:34)
[2023-06-12] MEDS ORDERED: VANCOMYCIN/WATER FOR INJ (PEG) 1,000 MG/250 ML BAG IVPB SCH (22:00)
[2023-06-13] MEDS: METOPROLOL TARTRATE 25 MG TABLET (FP) PO SCH ×3 (05:28→21:58)
[2023-06-13] MEDS: POLYETHYLENE GLYCOL (HEALTHYLAX) 3350 17 GM PACKET PO SCH ×3 (05:29→21:58)
[2023-06-13] MEDS: PANTOPRAZOLE 40 MG TABLET PO SCH (08:13)
[2023-06-13] MEDS: VANCOMYCIN/WATER FOR INJ (PEG) 1,000 MG/200 ML BAG IVPB SCH (08:51)
[2023-06-13] MEDS: TAMSULOSIN HCL 0.4 MG CAP PO SCH (08:51)
[2023-06-13] MEDS: URSODIOL 300 MG CAPSULE PO SCH ×2 (09:24→21:58)
[2023-06-13] MEDS: LIDOCAINE 4% PATCH TP SCH (09:25)
[2023-06-13] MEDS: MIDODRINE HCL 5 MG TABLET PO SCH ×3 (09:25→17:16)
[2023-06-13] MEDS: APIXABAN 5 MG TABLET PO SCH ×2 (09:25→21:58)
[2023-06-13] MEDS: FINASTERIDE 5 MG TABLET (FP) PO SCH (09:25)
[2023-06-13] MEDS: SACUBITRIL/VALSARTAN 24 MG-26 MG TABLET PO SCH ×2 (09:26→21:57)
[2023-06-13] MEDS: ACETAMINOPHEN 325 MG TABLET (FP) PO SCH ×2 (11:45→17:17)
[2023-06-13] MEDS: DIGOXIN 0.125 MG TABLET PO SCH (11:46)
[2023-06-13] MEDS: oxyCODONE HCL 5 MG TABLET PO PRN ×2 (13:38→21:02)
[2023-06-13] MEDS: LIDOCAINE PATCH REMOVAL MC SCH (21:59)
[2023-06-14] MEDS: ACETAMINOPHEN 325 MG TABLET (FP) PO SCH ×5 (00:16→23:00)
[2023-06-14] MEDS: oxyCODONE HCL 5 MG TABLET PO PRN ×2 (05:11→11:21)
[2023-06-14] MEDS: POLYETHYLENE GLYCOL (HEALTHYLAX) 3350 17 GM PACKET PO SCH ×3 (05:13→21:39)
[2023-06-14] MEDS: METOPROLOL TARTRATE 25 MG TABLET (FP) PO SCH ×3 (05:13→21:37)
[2023-06-14] MEDS: PANTOPRAZOLE 40 MG TABLET PO SCH (06:58)
[2023-06-14 09:21] LABS: BASO % 1.2 % (0-2.0); EOS % 3.4 % (0-4.5); HEMATOCRIT 29.1 % (35.4-49); HEMOGLOBIN 9.1 GM/dL (11.7-16.9); LYMPH % 28.2 % (8-40); MCH 32.9 pg (25.7-33.7); MCHC 31.4 g/dl (32.0-35.9); MEAN CELL VOLUME 104.8 fl (80-96); MEAN PLT VOLUME 8.8 fl (7.5-11.1); MONO % 8.6 % (3.8-10.2); NEUT % 58.6 % (42.8-82.8); PLATELET COUNT 229 10^3/uL (134-434); RBC 2.78 M/mm3 (4.00-5.60); RDW 21.5 % (11.9-15.9); WHITE BLOOD COUNT 4.4 K/mm3 (4.0-10.0)
[2023-06-14 09:44] LABS: POTASSIUM 3.5 mmol/L (3.5-5.1)
[2023-06-14 09:50] LABS: BLOOD UREA NITROGEN 11.5 mg/dL (7-18); CALCIUM 8.3 mg/dL (8.5-10.1); MAGNESIUM 1.9 mg/dL (1.8-2.4)
[2023-06-14 09:51] LABS: ALBUMIN 2.9 g/dl (3.4-5.0)
[2023-06-14 09:53] LABS: CREATININE 0.7 mg/dL (0.55-1.3)
[2023-06-14 09:55] LABS: BILIRUBIN,TOTAL 0.8 mg/dL (0.2-1); TOT PROT 5.7 g/dl (6.4-8.2)
[2023-06-14] MEDS: LIDOCAINE 4% PATCH TP SCH (10:52)
[2023-06-14] MEDS: URSODIOL 300 MG CAPSULE PO SCH ×2 (10:52→21:38)
[2023-06-14] MEDS: APIXABAN 5 MG TABLET PO SCH ×2 (10:52→21:37)
[2023-06-14] MEDS: DIGOXIN 0.125 MG TABLET PO SCH (10:53)
[2023-06-14] MEDS: MIDODRINE HCL 5 MG TABLET PO SCH ×3 (10:53→17:45)
[2023-06-14] MEDS: SACUBITRIL/VALSARTAN 24 MG-26 MG TABLET PO SCH ×2 (10:53→21:37)
[2023-06-14] MEDS: TAMSULOSIN HCL 0.4 MG CAP PO SCH (10:53)
[2023-06-14] MEDS: FINASTERIDE 5 MG TABLET (FP) PO SCH (10:54)
[2023-06-14] MEDS: COLLAGENASE CLOSTRIDIUM HIST. 30 GRAMS TUBE TP SCH (17:39)
[2023-06-14] MEDS: LIDOCAINE PATCH REMOVAL MC SCH (21:47)
[2023-06-15] MEDS: POLYETHYLENE GLYCOL (HEALTHYLAX) 3350 17 GM PACKET PO SCH ×3 (06:19→22:15)
[2023-06-15] MEDS: ACETAMINOPHEN 325 MG TABLET (FP) PO SCH ×3 (06:20→17:17)
[2023-06-15] MEDS: PANTOPRAZOLE 40 MG TABLET PO SCH (06:20)
[2023-06-15] MEDS: METOPROLOL TARTRATE 25 MG TABLET (FP) PO SCH ×3 (06:23→21:38)
[2023-06-15] MEDS: COLLAGENASE CLOSTRIDIUM HIST. 30 GRAMS TUBE TP SCH (09:28)
[2023-06-15] MEDS: LIDOCAINE 4% PATCH TP SCH (09:30)
[2023-06-15] MEDS: URSODIOL 300 MG CAPSULE PO SCH ×2 (09:31→21:38)
[2023-06-15] MEDS: APIXABAN 5 MG TABLET PO SCH ×2 (09:32→21:38)
[2023-06-15] MEDS: MIDODRINE HCL 5 MG TABLET PO SCH ×3 (09:32→17:17)
[2023-06-15] MEDS: SACUBITRIL/VALSARTAN 24 MG-26 MG TABLET PO SCH ×2 (09:32→21:38)
[2023-06-15] MEDS: TAMSULOSIN HCL 0.4 MG CAP PO SCH (09:32)
[2023-06-15] MEDS: DIGOXIN 0.125 MG TABLET PO SCH (09:32)
[2023-06-15] MEDS: FINASTERIDE 5 MG TABLET (FP) PO SCH (09:32)
[2023-06-15] MEDS: oxyCODONE HCL 5 MG TABLET PO PRN ×2 (09:37→21:38)
[2023-06-15] MEDS ORDERED: oxyCODONE HCL 5 MG TABLET PO ONE (11:15)
[2023-06-15] MEDS: LIDOCAINE PATCH REMOVAL MC SCH (21:47)
[2023-06-16] MEDS: ACETAMINOPHEN 325 MG TABLET (FP) PO SCH ×4 (00:47→17:04)
[2023-06-16] MEDS: PANTOPRAZOLE 40 MG TABLET PO SCH (06:21)
[2023-06-16] MEDS: POLYETHYLENE GLYCOL (HEALTHYLAX) 3350 17 GM PACKET PO SCH ×3 (06:23→21:20)
[2023-06-16] MEDS: METOPROLOL TARTRATE 25 MG TABLET (FP) PO SCH ×3 (06:23→21:20)
[2023-06-16] MEDS: TAMSULOSIN HCL 0.4 MG CAP PO SCH (09:10)
[2023-06-16] MEDS: MIDODRINE HCL 5 MG TABLET PO SCH ×3 (09:11→17:04)
[2023-06-16] MEDS: APIXABAN 5 MG TABLET PO SCH (09:11)
[2023-06-16] MEDS: FINASTERIDE 5 MG TABLET (FP) PO SCH (09:11)
[2023-06-16] MEDS: SACUBITRIL/VALSARTAN 24 MG-26 MG TABLET PO SCH ×2 (09:11→21:20)
[2023-06-16] MEDS: LIDOCAINE 4% PATCH TP SCH (09:11)
[2023-06-16] MEDS: URSODIOL 300 MG CAPSULE PO SCH ×2 (09:11→21:20)
[2023-06-16] MEDS: DIGOXIN 0.125 MG TABLET PO SCH (09:16)
[2023-06-16] MEDS: COLLAGENASE CLOSTRIDIUM HIST. 30 GRAMS TUBE TP SCH (09:24)
[2023-06-16 09:52] LABS: BASO % 1.2 % (0-2.0); EOS % 2.4 % (0-4.5); HEMATOCRIT 29.8 % (35.4-49); HEMOGLOBIN 9.3 GM/dL (11.7-16.9); LYMPH % 24.8 % (8-40); MCH 33.1 pg (25.7-33.7); MCHC 31.3 g/dl (32.0-35.9); MEAN CELL VOLUME 105.6 fl (80-96); MEAN PLT VOLUME 8.7 fl (7.5-11.1); NEUT % 65.6 % (42.8-82.8); PLATELET COUNT 224 10^3/uL (134-434); RBC 2.82 M/mm3 (4.00-5.60); RDW 21.5 % (11.9-15.9); WHITE BLOOD COUNT 7.4 K/mm3 (4.0-10.0)
[2023-06-16 10:19] LABS: POTASSIUM 3.6 mmol/L (3.5-5.1)
[2023-06-16 10:25] LABS: CALCIUM 8.3 mg/dL (8.5-10.1); MAGNESIUM 1.8 mg/dL (1.8-2.4)
[2023-06-16 10:27] LABS: CREATININE 0.8 mg/dL (0.55-1.3)
[2023-06-16 10:30] LABS: BILIRUBIN,TOTAL 0.4 mg/dL (0.2-1)
[2023-06-16 10:31] LABS: TOT PROT 5.7 g/dl (6.4-8.2)
[2023-06-16 10:39] LABS: ANISOCYTOSIS 2+; MACROCYTOSIS 2+
[2023-06-16] MEDS: oxyCODONE HCL 5 MG TABLET PO PRN ×2 (14:10→21:18)
[2023-06-16] MEDS: LIDOCAINE PATCH REMOVAL MC SCH (22:32)
[2023-06-17] MEDS: ACETAMINOPHEN 325 MG TABLET (FP) PO SCH ×5 (00:13→23:15)
[2023-06-17] MEDS: oxyCODONE HCL 5 MG TABLET PO PRN ×2 (03:56→12:26)
[2023-06-17] MEDS: POLYETHYLENE GLYCOL (HEALTHYLAX) 3350 17 GM PACKET PO SCH ×4 (06:47→22:44)
[2023-06-17] MEDS: METOPROLOL TARTRATE 25 MG TABLET (FP) PO SCH ×3 (06:48→22:45)
[2023-06-17] MEDS: PANTOPRAZOLE 40 MG TABLET PO SCH (07:04)
[2023-06-17 08:30] LABS: EOS % 3.9 % (0-4.5); HEMATOCRIT 26.9 % (35.4-49); HEMOGLOBIN 8.6 GM/dL (11.7-16.9); LYMPH % 34.7 % (8-40); MCH 33.3 pg (25.7-33.7); MCHC 31.8 g/dl (32.0-35.9); MEAN CELL VOLUME 104.7 fl (80-96); MEAN PLT VOLUME 8.8 fl (7.5-11.1); MONO % 6.5 % (3.8-10.2); NEUT % 53.9 % (42.8-82.8); PLATELET COUNT 199 10^3/uL (134-434); RBC 2.57 M/mm3 (4.00-5.60); RDW 21.8 % (11.9-15.9); WHITE BLOOD COUNT 7.2 K/mm3 (4.0-10.0)
[2023-06-17 08:39] LABS: INR 1.51 (0.83-1.09); PROTHROMBIN TIME (PATIENT) 17.4 SEC (9.7-13.0)
[2023-06-17 08:42] LABS: POTASSIUM 3.7 mmol/L (3.5-5.1)
[2023-06-17 08:49] LABS: BLOOD UREA NITROGEN 14.7 mg/dL (7-18); CALCIUM 8.4 mg/dL (8.5-10.1)
[2023-06-17 08:50] LABS: ALBUMIN 2.9 g/dl (3.4-5.0); CREATININE 0.7 mg/dL (0.55-1.3); MAGNESIUM 1.7 mg/dL (1.8-2.4)
[2023-06-17 08:52] LABS: BILIRUBIN,TOTAL 0.4 mg/dL (0.2-1); TOT PROT 5.4 g/dl (6.4-8.2)
[2023-06-17] MEDS: FINASTERIDE 5 MG TABLET (FP) PO SCH (10:02)
[2023-06-17] MEDS: SACUBITRIL/VALSARTAN 24 MG-26 MG TABLET PO SCH ×2 (10:02→22:43)
[2023-06-17] MEDS: DIGOXIN 0.125 MG TABLET PO SCH (10:02)
[2023-06-17] MEDS: URSODIOL 300 MG CAPSULE PO SCH ×2 (10:03→22:43)
[2023-06-17] MEDS: APIXABAN 5 MG TABLET PO SCH ×2 (10:03→22:43)
[2023-06-17] MEDS: LIDOCAINE 4% PATCH TP SCH (10:03)
[2023-06-17] MEDS: TAMSULOSIN HCL 0.4 MG CAP PO SCH (10:03)
[2023-06-17] MEDS: COLLAGENASE CLOSTRIDIUM HIST. 30 GRAMS TUBE TP SCH (10:04)
[2023-06-17] MEDS: MIDODRINE HCL 5 MG TABLET PO SCH ×3 (10:04→17:03)
[2023-06-17] MEDS ORDERED: VANCOMYCIN 1,000 MG VIAL (RESTRICTED TO ID ONLY) ONE (14:24)
[2023-06-17] MEDS ORDERED: LIDOCAINE HCL 1%, 10 MG/ML (20ML VIAL) ONE (14:24)
[2023-06-17] MEDS ORDERED: FENTANYL CITRATE/PF 50 MCG/ML VIAL ONE ×2 (17:59→18:14)
[2023-06-17] MEDS ORDERED: MIDAZOLAM HCL 2 MG/2 ML SINGLE DOSE VIAL ONE ×2 (18:00→18:11)
[2023-06-17] MEDS ORDERED: KETAMINE HCL 200 MG/20 ML VIAL ONE (18:00)
[2023-06-17] MEDS ORDERED: LIDOCAINE HCL 1%, 10 MG/ML (20ML VIAL) INF ONE (18:11)
[2023-06-17] MEDS ORDERED: oxyCODONE HCL 5 MG TABLET PO PRN (18:41)
[2023-06-17] MEDS ORDERED: BISACODYL 10 MG SUPP.RECT PR PRN (18:41)
[2023-06-17] MEDS ORDERED: ALBUTEROL SO4 HFA INHALER IH PRN (18:41)
[2023-06-17] MEDS ORDERED: LACTATED RINGERS SOLUTION 1,000 ML IV SCH (18:45)
[2023-06-17] MEDS ORDERED: ONDANSETRON 4 MG/2 ML VIAL IVPUSH PRN (18:45)
[2023-06-17] MEDS: LIDOCAINE PATCH REMOVAL MC SCH (22:45)
[2023-06-18 01:36] VITALS: RESP 18
[2023-06-18] MEDS: ACETAMINOPHEN 325 MG TABLET (FP) PO SCH ×4 (05:58→23:00)
[2023-06-18] MEDS: METOPROLOL TARTRATE 25 MG TABLET (FP) PO SCH ×3 (06:00→21:53)
[2023-06-18] MEDS: POLYETHYLENE GLYCOL (HEALTHYLAX) 3350 17 GM PACKET PO SCH ×3 (06:00→21:54)
[2023-06-18] MEDS ORDERED: PANTOPRAZOLE 40 MG TABLET PO SCH (07:00)
[2023-06-18] MEDS ORDERED: TAMSULOSIN HCL 0.4 MG CAP PO SCH (08:30)
[2023-06-18] MEDS: APIXABAN 5 MG TABLET PO SCH ×2 (09:32→21:53)
[2023-06-18] MEDS: SACUBITRIL/VALSARTAN 24 MG-26 MG TABLET PO SCH ×2 (09:32→21:53)
[2023-06-18] MEDS: MIDODRINE HCL 5 MG TABLET PO SCH ×3 (09:33→18:02)
[2023-06-18] MEDS: URSODIOL 300 MG CAPSULE PO SCH ×2 (09:33→21:54)
[2023-06-18] MEDS ORDERED: FINASTERIDE 5 MG TABLET (FP) PO SCH (10:00)
[2023-06-18] MEDS ORDERED: LIDOCAINE 4% PATCH TP SCH (10:00)
[2023-06-18] MEDS ORDERED: COLLAGENASE CLOSTRIDIUM HIST. 30 GRAMS TUBE TP SCH (10:00)
[2023-06-18] MEDS ORDERED: DIGOXIN 0.125 MG TABLET PO SCH (10:00)
[2023-06-18 10:12] LABS: BASO % 0.6 % (0-2.0); EOS % 3.7 % (0-4.5); HEMATOCRIT 27.4 % (35.4-49); HEMOGLOBIN 8.9 GM/dL (11.7-16.9); LYMPH % 31.3 % (8-40); MCH 34.1 pg (25.7-33.7); MCHC 32.4 g/dl (32.0-35.9); MEAN CELL VOLUME 105.3 fl (80-96); MONO % 4.7 % (3.8-10.2); NEUT % 59.7 % (42.8-82.8); PLATELET COUNT 212 10^3/uL (134-434); RDW 21.8 % (11.9-15.9); WHITE BLOOD COUNT 7.5 K/mm3 (4.0-10.0)
[2023-06-18] MEDS: metroNIDAZOLE 250 MG TABLET PO SCH ×3 (10:25→21:53)
[2023-06-18 10:30] LABS: ALBUMIN 2.9 g/dl (3.4-5.0); BLOOD UREA NITROGEN 12.1 mg/dL (7-18); CALCIUM 8.3 mg/dL (8.5-10.1)
[2023-06-18 10:31] LABS: MAGNESIUM 1.8 mg/dL (1.8-2.4)
[2023-06-18 10:33] LABS: CREATININE 0.7 mg/dL (0.55-1.3)
[2023-06-18 10:34] LABS: BILIRUBIN,TOTAL 0.6 mg/dL (0.2-1); TOT PROT 5.4 g/dl (6.4-8.2)
[2023-06-18] MEDS: oxyCODONE HCL 5 MG TABLET PO PRN ×2 (11:22→18:02)
[2023-06-18 16:15] VITALS: BMI 18.6
[2023-06-18] MEDS: LIDOCAINE PATCH REMOVAL MC SCH (21:54)
[2023-06-19] VITALS: BP 125/73; PULSE 88; TEMP 99.7
[2023-06-19] MEDS: oxyCODONE HCL 5 MG TABLET PO PRN (03:14)
== END 2023-06-19 04:05 | disposition home health service (06) | DRG 570 ==
LOC: JER 18:45 → JERBED 06-12 00:38 → J8W 06-12 11:01 → OBSVTOIN 06-13 13:52 → J8W 06-17 19:16
PROVIDERS: ADMIT Internal Medicine; ATTEND Nurse Practitioner Acute Care
PROC: 0JB70ZZ Excision of Back Subcutaneous Tissue and Fascia, Open Approach (ICD-10-PCS; principal; 2023-06-17 18:30)
DX: S21.209A Unspecified open wound of unspecified back wall of thorax without penetration into thoracic cavity, initial encounter (principal); E43 Unspecified severe protein-calorie malnutrition; L89.113 Pressure ulcer of right upper back, stage 3; G91.2 (Idiopathic) normal pressure hydrocephalus; I50.22 Chronic systolic (congestive) heart failure; I13.0 Hypertensive heart and chronic kidney disease with heart failure and stage 1 through stage 4 chronic kidney disease, or unspecified chronic kidney disease; I42.8 Other cardiomyopathies; Z68.1 Body mass index [BMI] 19.9 or less, adult; I96 Gangrene, not elsewhere classified; E78.5 Hyperlipidemia, unspecified; I48.0 Paroxysmal atrial fibrillation; J44.9 Chronic obstructive pulmonary disease, unspecified; N40.0 Benign prostatic hyperplasia without lower urinary tract symptoms; N18.9 Chronic kidney disease, unspecified; X58.XXXA Exposure to other specified factors, initial encounter; Y99.9 Unspecified external cause status; Y92.9 Unspecified place or not applicable; F41.8 Other specified anxiety disorders; Y93.9 Activity, unspecified; K58.8 Other irritable bowel syndrome; K57.90 Diverticulosis of intestine, part unspecified, without perforation or abscess without bleeding; F44.4 Conversion disorder with motor symptom or deficit; L89.151 Pressure ulcer of sacral region, stage 1; M54.50 Low back pain, unspecified; N20.0 Calculus of kidney; D64.9 Anemia, unspecified; K80.50 Calculus of bile duct without cholangitis or cholecystitis without obstruction; K59.03 Drug induced constipation; T40.2X5A Adverse effect of other opioids, initial encounter; K21.9 Gastro-esophageal reflux disease without esophagitis; K44.9 Diaphragmatic hernia without obstruction or gangrene; I44.7 Left bundle-branch block, unspecified
CPT/HCPCS: 36415; 74176-TC; 80053; 81003; 82272; 83735; 84100; 85025; 85027; 85610; 86140; 87040; 87086; 93005; 93010; 93306-TC; 94760; 99285-25; G0378

== ENCOUNTER 2023-06-26 21:55 | Inpatient (IN) | payer OTHER, BC ==
[2023-06-26] MEDS ORDERED: ACETAMINOPHEN 1000 MG/100 ML BAG IVPB ONE (22:30)
[2023-06-26] MEDS ORDERED: ACETAMINOPHEN INJECTION 100 ML IVPB ONE (23:15)
[2023-06-26 23:44] LABS: BASO % 0.7 % (0-2.0); EOS % 4.9 % (0-4.5); HEMATOCRIT 31.9 % (35.4-49); HEMOGLOBIN 10.2 GM/dL (11.7-16.9); LYMPH % 28.1 % (8-40); MCH 33.9 pg (25.7-33.7); MCHC 32.1 g/dl (32.0-35.9); MEAN CELL VOLUME 105.8 fl (80-96); MEAN PLT VOLUME 8.6 fl (7.5-11.1); MONO % 8.1 % (3.8-10.2); NEUT % 58.2 % (42.8-82.8); PLATELET COUNT 235 10^3/uL (134-434); RBC 3.01 M/mm3 (4.00-5.60); RDW 21.6 % (11.9-15.9); WHITE BLOOD COUNT 7.8 K/mm3 (4.0-10.0)
[2023-06-26 23:50] LABS: INR 1.17 (0.83-1.09); PROTHROMBIN TIME (PATIENT) 13.5 SEC (9.7-13.0)
[2023-06-26 23:53] LABS: ACTIVATED PTT 35.1 SECONDS (25.2-36.5)
[2023-06-27 00:02] LABS: POTASSIUM 4.6 mmol/L (3.5-5.1)
[2023-06-27 00:04] LABS: CALCIUM 8.6 mg/dL (8.5-10.1)
[2023-06-27 00:05] LABS: BLOOD UREA NITROGEN 20.2 mg/dL (7-18)
[2023-06-27 00:08] LABS: CREATININE 0.7 mg/dL (0.55-1.3)
[2023-06-27 00:09] LABS: BILIRUBIN,TOTAL 0.4 mg/dL (0.2-1)
[2023-06-27 00:10] LABS: TOT PROT 6.1 g/dl (6.4-8.2)
[2023-06-27] MEDS ORDERED: HYDROmorphone HCl 2 MG/ML VIAL IVPUSH ONE (04:18)
[2023-06-27] MEDS ORDERED: HYDROmorphone HCl 2 MG/ML VIAL IVPUSH PRN (04:18)
[2023-06-27] MEDS ORDERED: ALBUTEROL SO4 HFA INHALER IH PRN (04:23)
[2023-06-27] MEDS ORDERED: PIPERACILLIN/TAZOB 3.375 GM 3.375 GM in DEXTROSE 5%-WATER - 50 ML IVPB SCH ×2 (04:30→04:45)
[2023-06-27 04:33] LABS: ANISOCYTOSIS 2+; MACROCYTOSIS 1+; OVALOCYTE 1+; TEAR DROP CELLS 1+
[2023-06-27 04:34] LABS: PLATELET ESTIMATE ADEQUATE
[2023-06-27] MEDS ORDERED: HYDROmorphone HCl 2 MG/ML VIAL IVPB ONE (04:42)
[2023-06-27] MEDS: METOPROLOL TARTRATE 25 MG TABLET (FP) PO SCH ×3 (07:18→21:12)
[2023-06-27] MEDS: PANTOPRAZOLE 40 MG TABLET PO SCH (07:20)
[2023-06-27] MEDS: dilTIAZem HCL 60 MG TABLET PO SCH ×3 (07:20→21:12)
[2023-06-27] MEDS: POLYETHYLENE GLYCOL (HEALTHYLAX) 3350 17 GM PACKET PO SCH ×3 (07:27→21:14)
[2023-06-27 08:29] LABS: HEMOGLOBIN 9.8 GM/dL (11.7-16.9); MCHC 31.6 g/dl (32.0-35.9); MEAN CELL VOLUME 107.8 fl (80-96); MEAN PLT VOLUME 8.9 fl (7.5-11.1); PLATELET COUNT 239 10^3/uL (134-434); RBC 2.88 M/mm3 (4.00-5.60); WHITE BLOOD COUNT 6.4 K/mm3 (4.0-10.0)
[2023-06-27 09:27] LABS: ALBUMIN 2.9 g/dl (3.4-5.0); BLOOD UREA NITROGEN 19.4 mg/dL (7-18)
[2023-06-27 09:28] LABS: CALCIUM 8.3 mg/dL (8.5-10.1)
[2023-06-27 09:30] LABS: CREATININE 0.8 mg/dL (0.55-1.3)
[2023-06-27 09:32] LABS: BILIRUBIN,TOTAL 0.7 mg/dL (0.2-1); TOT PROT 5.6 g/dl (6.4-8.2)
[2023-06-27] MEDS: DIGOXIN 0.125 MG TABLET PO SCH (09:59)
[2023-06-27] MEDS: TAMSULOSIN HCL 0.4 MG CAP PO SCH (09:59)
[2023-06-27] MEDS: URSODIOL 300 MG CAPSULE PO SCH ×2 (09:59→21:12)
[2023-06-27] MEDS: MIDODRINE HCL 5 MG TABLET PO SCH ×3 (09:59→17:31)
[2023-06-27] MEDS: APIXABAN 5 MG TABLET PO SCH ×2 (09:59→21:12)
[2023-06-27] MEDS ORDERED: COLLAGENASE CLOSTRIDIUM HIST. 30 GRAMS TUBE TP SCH (10:00)
[2023-06-27] MEDS: LIDOCAINE 4% PATCH TP SCH (10:08)
[2023-06-27] MEDS: HYDROmorphone HCl 2 MG/ML VIAL IVPB PRN ×3 (10:11→23:27)
[2023-06-27] MEDS: LIDOCAINE PATCH REMOVAL MC SCH (21:52)
[2023-06-28] MEDS: HYDROmorphone HCl 2 MG/ML VIAL IVPB PRN ×2 (04:16→12:52)
[2023-06-28] MEDS: METOPROLOL TARTRATE 25 MG TABLET (FP) PO SCH ×3 (07:02→21:28)
[2023-06-28] MEDS: POLYETHYLENE GLYCOL (HEALTHYLAX) 3350 17 GM PACKET PO SCH ×3 (07:02→21:29)
[2023-06-28] MEDS: dilTIAZem HCL 60 MG TABLET PO SCH ×3 (07:03→21:29)
[2023-06-28] MEDS: PANTOPRAZOLE 40 MG TABLET PO SCH (07:04)
[2023-06-28] MEDS: SODIUM CHLORIDE 1,000 ML IV SCH (10:09)
[2023-06-28] MEDS: LIDOCAINE 4% PATCH TP SCH (10:11)
[2023-06-28] MEDS: URSODIOL 300 MG CAPSULE PO SCH ×2 (10:13→21:29)
[2023-06-28] MEDS: TAMSULOSIN HCL 0.4 MG CAP PO SCH (10:14)
[2023-06-28] MEDS: MIDODRINE HCL 5 MG TABLET PO SCH ×3 (10:14→17:10)
[2023-06-28] MEDS: APIXABAN 5 MG TABLET PO SCH ×2 (10:14→21:29)
[2023-06-28] MEDS: DIGOXIN 0.125 MG TABLET PO SCH (10:15)
[2023-06-28 11:14] LABS: POTASSIUM 3.9 mmol/L (3.5-5.1)
[2023-06-28 11:16] LABS: ALBUMIN 2.9 g/dl (3.4-5.0); BLOOD UREA NITROGEN 19.8 mg/dL (7-18); CALCIUM 8.1 mg/dL (8.5-10.1)
[2023-06-28 11:19] LABS: CREATININE 0.8 mg/dL (0.55-1.3)
[2023-06-28 11:21] LABS: BILIRUBIN,TOTAL 0.4 mg/dL (0.2-1); TOT PROT 5.6 g/dl (6.4-8.2)
[2023-06-28 20:02] VITALS: BMI 22.1
[2023-06-28] MEDS: SACUBITRIL/VALSARTAN 24 MG-26 MG TABLET PO SCH (21:29)
[2023-06-28] MEDS: LIDOCAINE PATCH REMOVAL MC SCH (21:29)
[2023-06-28] MEDS: ASCORBIC ACID 500 MG TABLET (FP) PO SCH (21:31)
[2023-06-29] MEDS: METOPROLOL TARTRATE 25 MG TABLET (FP) PO SCH ×3 (05:31→21:47)
[2023-06-29] MEDS: POLYETHYLENE GLYCOL (HEALTHYLAX) 3350 17 GM PACKET PO SCH ×3 (05:31→21:48)
[2023-06-29] MEDS: dilTIAZem HCL 60 MG TABLET PO SCH ×3 (05:31→21:48)
[2023-06-29] MEDS: SODIUM CHLORIDE 1,000 ML IV SCH (05:32)
[2023-06-29] MEDS: HYDROmorphone HCl 2 MG/ML VIAL IVPB PRN (05:33)
[2023-06-29] MEDS: PANTOPRAZOLE 40 MG TABLET PO SCH (06:43)
[2023-06-29] MEDS: LIDOCAINE 4% PATCH TP SCH (09:30)
[2023-06-29] MEDS: AMINO ACIDS/PROTEIN HYDROLYS 30 ML LIQUID.PKT PO SCH ×2 (09:30→16:57)
[2023-06-29] MEDS: MULTIVITAMINS (DAILY MVI) TABLET (FP) PO SCH (09:32)
[2023-06-29] MEDS: TAMSULOSIN HCL 0.4 MG CAP PO SCH (09:33)
[2023-06-29] MEDS: DIGOXIN 0.125 MG TABLET PO SCH (09:34)
[2023-06-29] MEDS: APIXABAN 5 MG TABLET PO SCH ×2 (09:34→21:48)
[2023-06-29] MEDS: ASCORBIC ACID 500 MG TABLET (FP) PO SCH ×2 (09:35→21:48)
[2023-06-29] MEDS: MIDODRINE HCL 5 MG TABLET PO SCH ×3 (09:35→16:59)
[2023-06-29] MEDS: ZINC SULFATE 220 MG CAPSULE (FP) PO SCH (09:35)
[2023-06-29] MEDS: SACUBITRIL/VALSARTAN 24 MG-26 MG TABLET PO SCH ×2 (09:35→21:47)
[2023-06-29] MEDS: URSODIOL 300 MG CAPSULE PO SCH ×2 (09:35→21:47)
[2023-06-29] MEDS: HYDROmorphone HCL 2 MG TABLET PO PRN (11:56)
[2023-06-29] MEDS ORDERED: MINERAL OIL ENEMA 133 ML ENEMA RC ONE (12:31)
[2023-06-29] MEDS: LIDOCAINE PATCH REMOVAL MC SCH (21:49)
[2023-06-30] MEDS: HYDROmorphone HCL 2 MG TABLET PO PRN ×2 (05:04→13:37)
[2023-06-30] MEDS: POLYETHYLENE GLYCOL (HEALTHYLAX) 3350 17 GM PACKET PO SCH ×2 (05:04→13:23)
[2023-06-30] MEDS: dilTIAZem HCL 60 MG TABLET PO SCH ×2 (05:05→13:23)
[2023-06-30] MEDS: METOPROLOL TARTRATE 25 MG TABLET (FP) PO SCH ×2 (05:05→13:23)
[2023-06-30] MEDS: PANTOPRAZOLE 40 MG TABLET PO SCH (06:04)
[2023-06-30] MEDS: DIGOXIN 0.125 MG TABLET PO SCH (10:17)
[2023-06-30] MEDS: APIXABAN 5 MG TABLET PO SCH (10:17)
[2023-06-30] MEDS: MULTIVITAMINS (DAILY MVI) TABLET (FP) PO SCH (10:17)
[2023-06-30] MEDS: LIDOCAINE 4% PATCH TP SCH (10:17)
[2023-06-30] MEDS: ZINC SULFATE 220 MG CAPSULE (FP) PO SCH (10:17)
[2023-06-30] MEDS: AMINO ACIDS/PROTEIN HYDROLYS 30 ML LIQUID.PKT PO SCH ×2 (10:17→18:26)
[2023-06-30] MEDS: URSODIOL 300 MG CAPSULE PO SCH (10:17)
[2023-06-30] MEDS: ASCORBIC ACID 500 MG TABLET (FP) PO SCH (10:18)
[2023-06-30] MEDS: TAMSULOSIN HCL 0.4 MG CAP PO SCH (10:18)
[2023-06-30] MEDS: MIDODRINE HCL 5 MG TABLET PO SCH ×3 (10:18→18:26)
[2023-06-30] MEDS: SACUBITRIL/VALSARTAN 24 MG-26 MG TABLET PO SCH (10:18)
[2023-06-30 11:37] VITALS: PULSE 76
[2023-06-30] MEDS ORDERED: BISACODYL 10 MG SUPP.RECT PR ONE (11:46)
[2023-06-30 18:23] VITALS: BP 107/43; RESP 20; TEMP 98.5
== END 2023-06-30 18:30 | disposition home or self-care (01) | DRG 552 ==
LOC: JER 21:55 → JERBED 06-27 00:45 → J7W 06-27 02:21
PROVIDERS: ADMIT Internal Medicine; ATTEND Nurse Practitioner Family
DX: M54.89 Other dorsalgia (principal); G82.20 Paraplegia, unspecified; E46 Unspecified protein-calorie malnutrition; J96.11 Chronic respiratory failure with hypoxia; I50.22 Chronic systolic (congestive) heart failure; E78.5 Hyperlipidemia, unspecified; K59.00 Constipation, unspecified; N40.0 Benign prostatic hyperplasia without lower urinary tract symptoms; K57.90 Diverticulosis of intestine, part unspecified, without perforation or abscess without bleeding; K21.9 Gastro-esophageal reflux disease without esophagitis; G89.29 Other chronic pain; L89.152 Pressure ulcer of sacral region, stage 2; I44.7 Left bundle-branch block, unspecified; I48.0 Paroxysmal atrial fibrillation; K44.9 Diaphragmatic hernia without obstruction or gangrene; F41.8 Other specified anxiety disorders; I11.0 Hypertensive heart disease with heart failure; D64.9 Anemia, unspecified; Z99.81 Dependence on supplemental oxygen; Z68.20 Body mass index [BMI] 20.0-20.9, adult
CPT/HCPCS: 36415; 80053; 85025; 85027; 85610; 85730; 86140; 86850; 86900; 86901; 87040; 93005; 93010; 99285-25

== ENCOUNTER 2023-09-23 18:08 | Observation (INO) | payer OTHER, BC ==
[2023-09-23] MEDS ORDERED: oxyCODONE HCL 5 MG TABLET ONE ×2 (20:16→22:21)
[2023-09-23] MEDS: oxyCODONE HCL 5 MG TABLET PO ONE ×2 (20:18→22:25)
[2023-09-23 20:33] LABS: INR 1.45 (0.83-1.09); PROTHROMBIN TIME (PATIENT) 16.8 SEC (9.7-13.0)
[2023-09-23 20:35] LABS: ACTIVATED PTT 38.4 SECONDS (25.2-36.5)
[2023-09-23 20:36] LABS: BASO % 0.6 % (0-2.0); EOS % 8.4 % (0-4.5); HEMATOCRIT 32.9 % (35.4-49); HEMOGLOBIN 10.7 GM/dL (11.7-16.9); LYMPH % 20.1 % (8-40); MCH 35.4 pg (25.7-33.7); MCHC 32.4 g/dl (32.0-35.9); MEAN CELL VOLUME 109.4 fl (80-96); MEAN PLT VOLUME 9.9 fl (7.5-11.1); MONO % 6.7 % (3.8-10.2); NEUT % 64.2 % (42.8-82.8); PLATELET COUNT 163 10^3/uL (134-434); RBC 3.01 M/mm3 (4.00-5.60); RDW 17.9 % (11.9-15.9); WHITE BLOOD COUNT 7.4 K/mm3 (4.0-10.0)
[2023-09-23 20:42] LABS: POTASSIUM 4.3 mmol/L (3.5-5.1)
[2023-09-23 20:44] LABS: ALBUMIN 3.4 g/dl (3.4-5.0); BLOOD UREA NITROGEN 29.6 mg/dL (7-18); CALCIUM 8.5 mg/dL (8.5-10.1)
[2023-09-23 20:47] LABS: CREATININE 1.1 mg/dL (0.55-1.3)
[2023-09-23 20:49] LABS: BILIRUBIN,TOTAL 0.4 mg/dL (0.2-1)
[2023-09-23 22:11] LABS: ERYTHROCYTE SEDIMENTATION RATE 28 mm/hr (0-20)
[2023-09-23 22:32] LABS: ANISOCYTOSIS 1+; MACROCYTOSIS 2+; OVALOCYTE 1+; TEAR DROP CELLS 1+
[2023-09-23 22:38] LABS: PLATELET ESTIMATE ADEQUATE
[2023-09-24] MEDS ORDERED: PATIENT'S OWN MEDICATION (NON-FORMULARY) (Levalbuterol Tartrate [Levalbuterol Tartrate Hfa PO PRN (01:55)
[2023-09-24] MEDS ORDERED: PANTOPRAZOLE 40 MG TABLET PO ONE (06:05)
[2023-09-24] MEDS ORDERED: dilTIAZem HCL 60 MG TABLET ONE (06:05)
[2023-09-24] MEDS ORDERED: METOPROLOL TARTRATE 25 MG TABLET (FP) ONE (06:05)
[2023-09-24] MEDS ORDERED: POLYETHYLENE GLYCOL (HEALTHYLAX) 3350 17 GM PACKET ONE (06:05)
[2023-09-24] MEDS: dilTIAZem HCL 60 MG TABLET PO SCH (06:18)
[2023-09-24] MEDS: POLYETHYLENE GLYCOL (HEALTHYLAX) 3350 17 GM PACKET PO SCH (06:19)
[2023-09-24] MEDS: METOPROLOL TARTRATE 25 MG TABLET (FP) PO SCH (06:19)
[2023-09-24] MEDS: PANTOPRAZOLE 40 MG TABLET PO SCH (06:19)
[2023-09-24] MEDS ORDERED: oxyCODONE HCL 5 MG TABLET PO PRN (07:30)
[2023-09-24] MEDS ORDERED: MIDODRINE HCL 5 MG TABLET ONE (09:38)
[2023-09-24] MEDS: SACUBITRIL/VALSARTAN 24 MG-26 MG TABLET PO SCH (09:48)
[2023-09-24] MEDS: TAMSULOSIN HCL 0.4 MG CAP PO SCH (09:48)
[2023-09-24] MEDS: MIDODRINE HCL 5 MG TABLET PO SCH (09:48)
[2023-09-24] MEDS: APIXABAN 5 MG TABLET PO SCH (09:48)
[2023-09-24] MEDS: URSODIOL 300 MG CAPSULE PO SCH (09:48)
[2023-09-24] MEDS: FINASTERIDE 5 MG TABLET (FP) PO SCH (09:48)
[2023-09-24] MEDS: DIGOXIN 0.125 MG TABLET PO SCH (09:49)
[2023-09-24] MEDS ORDERED: COLLAGENASE CLOSTRIDIUM HIST. 30 GRAMS TUBE TP SCH (10:00)
[2023-09-24] MEDS ORDERED: ALBUTEROL SO4 HFA INHALER IH PRN (13:12)
[2023-09-24] MEDS: oxyCODONE HCL 5 MG TABLET PO PRN (17:49)
[2023-09-25 08:00] LABS: BASO % 0.3 % (0-2.0); EOS % 7.1 % (0-4.5); HEMATOCRIT 32.8 % (35.4-49); HEMOGLOBIN 10.9 GM/dL (11.7-16.9); LYMPH % 29.7 % (8-40); MCH 36.5 pg (25.7-33.7); MCHC 33.3 g/dl (32.0-35.9); MEAN CELL VOLUME 109.6 fl (80-96); MEAN PLT VOLUME 9.9 fl (7.5-11.1); MONO % 8.1 % (3.8-10.2); NEUT % 54.8 % (42.8-82.8); PLATELET COUNT 178 10^3/uL (134-434); RBC 2.99 M/mm3 (4.00-5.60); RDW 17.7 % (11.9-15.9); WHITE BLOOD COUNT 6.1 K/mm3 (4.0-10.0)
[2023-09-25 08:15] LABS: POTASSIUM 4.4 mmol/L (3.5-5.1)
[2023-09-25 08:19] LABS: CALCIUM 8.8 mg/dL (8.5-10.1)
[2023-09-25 08:20] LABS: ALBUMIN 3.4 g/dl (3.4-5.0); BLOOD UREA NITROGEN 22.5 mg/dL (7-18); MAGNESIUM 1.9 mg/dL (1.8-2.4)
[2023-09-25 08:24] LABS: CREATININE 0.9 mg/dL (0.55-1.3)
[2023-09-25 08:25] LABS: BILIRUBIN,TOTAL 0.8 mg/dL (0.2-1); TOT PROT 6.4 g/dl (6.4-8.2)
[2023-09-25] MEDS: GABAPENTIN 300 MG CAPSULE PO SCH (15:04)
[2023-09-26] MEDS: ACETAMINOPHEN 325 MG TABLET (FP) PO PRN (05:45)
[2023-09-26 08:23] LABS: BASO % 0.4 % (0-2.0); HEMATOCRIT 31.6 % (35.4-49); HEMOGLOBIN 10.5 GM/dL (11.7-16.9); LYMPH % 22.6 % (8-40); MCH 36.1 pg (25.7-33.7); MCHC 33.3 g/dl (32.0-35.9); MEAN CELL VOLUME 108.3 fl (80-96); MEAN PLT VOLUME 9.8 fl (7.5-11.1); MONO % 8.1 % (3.8-10.2); NEUT % 61.9 % (42.8-82.8); PLATELET COUNT 187 10^3/uL (134-434); RBC 2.91 M/mm3 (4.00-5.60); RDW 18.4 % (11.9-15.9); WHITE BLOOD COUNT 7.3 K/mm3 (4.0-10.0)
[2023-09-26 08:43] LABS: POTASSIUM 4.7 mmol/L (3.5-5.1)
[2023-09-26 08:46] LABS: ALBUMIN 3.2 g/dl (3.4-5.0); BLOOD UREA NITROGEN 28.4 mg/dL (7-18); CALCIUM 8.9 mg/dL (8.5-10.1); MAGNESIUM 1.8 mg/dL (1.8-2.4)
[2023-09-26 08:50] LABS: CREATININE 0.9 mg/dL (0.55-1.3)
[2023-09-26 08:52] LABS: BILIRUBIN,TOTAL 0.6 mg/dL (0.2-1)
[2023-09-26] MEDS: SODIUM CHLORIDE 500 ML IV STA (11:49)
[2023-09-26 12:29] VITALS: BMI 20.1
[2023-09-26] MEDS: MIDODRINE HCL 5 MG TABLET PO ONE (14:28)
[2023-09-26] MEDS: GABAPENTIN 400 MG CAPSULE PO SCH (14:29)
[2023-09-26] MEDS: MIDODRINE HCL 5 MG TABLET PO SCH (14:29)
[2023-09-27 09:19] LABS: BASO % 0.4 % (0-2.0); EOS % 5.2 % (0-4.5); HEMATOCRIT 34.2 % (35.4-49); LYMPH % 19.6 % (8-40); MCH 35.4 pg (25.7-33.7); MCHC 32.3 g/dl (32.0-35.9); MEAN CELL VOLUME 109.8 fl (80-96); MONO % 5.2 % (3.8-10.2); NEUT % 69.6 % (42.8-82.8); PLATELET COUNT 207 10^3/uL (134-434); RBC 3.12 M/mm3 (4.00-5.60); RDW 18.1 % (11.9-15.9); WHITE BLOOD COUNT 9.2 K/mm3 (4.0-10.0)
[2023-09-27 09:35] LABS: POTASSIUM 4.6 mmol/L (3.5-5.1)
[2023-09-27 09:42] LABS: ALBUMIN 3.3 g/dl (3.4-5.0); BLOOD UREA NITROGEN 32.3 mg/dL (7-18)
[2023-09-27 09:43] LABS: MAGNESIUM 1.8 mg/dL (1.8-2.4)
[2023-09-27 09:46] LABS: BILIRUBIN,TOTAL 0.6 mg/dL (0.2-1); TOT PROT 6.1 g/dl (6.4-8.2)
[2023-09-27 10:08] LABS: ANISOCYTOSIS 1+; MACROCYTOSIS 0
[2023-09-27] MEDS ORDERED: SACUBITRIL/VALSARTAN 24 MG-26 MG TABLET PO SCH (12:04)
[2023-09-27] MEDS: SODIUM CHLORIDE 0.9% 500 ML INFUS.BAG IV ONE (12:49)
[2023-09-27] MEDS: METOPROLOL TARTRATE 25 MG TABLET (FP) PO SCH (14:16)
[2023-09-27] MEDS: SACUBITRIL/VALSARTAN 24 MG-26 MG TABLET PO SCH (22:48)
[2023-09-29 05:02] VITALS: RESP 18
[2023-09-29 09:03] LABS: BASO % 0.8 % (0-2.0); EOS % 10.1 % (0-4.5); HEMATOCRIT 31.2 % (35.4-49); HEMOGLOBIN 10.2 GM/dL (11.7-16.9); LYMPH % 25.4 % (8-40); MCH 35.7 pg (25.7-33.7); MCHC 32.7 g/dl (32.0-35.9); MEAN CELL VOLUME 109.1 fl (80-96); MEAN PLT VOLUME 9.7 fl (7.5-11.1); MONO % 6.5 % (3.8-10.2); NEUT % 57.2 % (42.8-82.8); PLATELET COUNT 207 10^3/uL (134-434); RBC 2.86 M/mm3 (4.00-5.60); RDW 17.5 % (11.9-15.9); WHITE BLOOD COUNT 8.3 K/mm3 (4.0-10.0)
[2023-09-29 09:15] LABS: POTASSIUM 4.5 mmol/L (3.5-5.1)
[2023-09-29 09:19] LABS: CALCIUM 9.1 mg/dL (8.5-10.1)
[2023-09-29 09:20] LABS: BLOOD UREA NITROGEN 30.9 mg/dL (7-18)
[2023-09-29 09:23] LABS: CREATININE 0.9 mg/dL (0.55-1.3)
[2023-09-29 12:54] VITALS: BP 103/69; PULSE 101; TEMP 97.8
== END 2023-09-29 13:49 | disposition home or self-care (01) ==
LOC: JER 18:08 → JERBED 21:47 → J6S 09-24 10:04
PROVIDERS: ADMIT Internal Medicine; ATTEND Nurse Practitioner
PROC: 3E0337Z Introduction of Electrolytic and Water Balance Substance into Peripheral Vein, Percutaneous Approach (ICD-10-PCS; principal; 2023-09-23)
DX: J96.11 Chronic respiratory failure with hypoxia (principal); I50.30 Unspecified diastolic (congestive) heart failure; E78.5 Hyperlipidemia, unspecified; I48.91 Unspecified atrial fibrillation; M79.672 Pain in left foot; J96.01 Acute respiratory failure with hypoxia; I11.0 Hypertensive heart disease with heart failure; I50.9 Heart failure, unspecified; Z79.01 Long term (current) use of anticoagulants; N40.0 Benign prostatic hyperplasia without lower urinary tract symptoms; Z88.8 Allergy status to other drugs, medicaments and biological substances; Z88.6 Allergy status to analgesic agent; Z91.010 Allergy to peanuts; Z91.011 Allergy to milk products
CPT/HCPCS: 36415; 73630-TC-LT; 80048; 80053; 83735; 85025; 85610; 85651; 85730; 86140; 86850; 86900; 86901; 93005; 93010; 96360; 97161-GP; 99285-25; G0378

== ENCOUNTER 2023-10-23 10:28 | Emergency (ER) | payer OTHER, BC ==
[2023-10-23 10:47] VITALS: BMI 20.5
[2023-10-23] MEDS: ACETAMINOPHEN 1000 MG/100 ML BAG IVPB ONE (12:00)
[2023-10-23] MEDS ORDERED: ACETAMINOPHEN INJECTION 100 ML IVPB ONE (12:02)
[2023-10-23 12:07] LABS: BASO % 0.2 % (0-2.0); EOS % 1.9 % (0-4.5); HEMATOCRIT 37.6 % (35.4-49); HEMOGLOBIN 12.3 GM/dL (11.7-16.9); LYMPH % 8.8 % (8-40); MCH 36.6 pg (25.7-33.7); MCHC 32.7 g/dl (32.0-35.9); MEAN CELL VOLUME 111.7 fl (80-96); MEAN PLT VOLUME 9.8 fl (7.5-11.1); NEUT % 83.1 % (42.8-82.8); PLATELET COUNT 191 10^3/uL (134-434); RBC 3.37 M/mm3 (4.00-5.60); WHITE BLOOD COUNT 8.3 K/mm3 (4.0-10.0)
[2023-10-23 12:12] LABS: INR 1.39 (0.83-1.09); PROTHROMBIN TIME (PATIENT) 16.1 SEC (9.7-13.0)
[2023-10-23 12:14] LABS: ACTIVATED PTT 30.3 SECONDS (25.2-36.5)
[2023-10-23 12:33] LABS: ANISOCYTOSIS 1+; MACROCYTOSIS 2+
[2023-10-23 12:35] LABS: POTASSIUM 4.5 mmol/L (3.5-5.1)
[2023-10-23 12:37] LABS: CALCIUM 9.8 mg/dL (8.5-10.1)
[2023-10-23 12:38] LABS: ALBUMIN 3.6 g/dl (3.4-5.0); BLOOD UREA NITROGEN 37.3 mg/dL (7-18); MAGNESIUM 2.1 mg/dL (1.8-2.4)
[2023-10-23 12:41] LABS: CREATININE 1.2 mg/dL (0.55-1.3)
[2023-10-23 12:42] LABS: BILIRUBIN,TOTAL 2.1 mg/dL (0.2-1); TOT PROT 7.1 g/dl (6.4-8.2)
[2023-10-23] MEDS: SODIUM CHLORIDE 0.9% 500 ML INFUS.BAG IV ONE (15:36)
[2023-10-23 15:44] VITALS: RESP 18
[2023-10-23 18:46] VITALS: BP 131/91; PULSE 97; TEMP 98
== END 2023-10-23 18:46 | disposition short-term general hospital (02) ==
LOC: JER 10:28
PROC: 3E033NZ Introduction of Analgesics, Hypnotics, Sedatives into Peripheral Vein, Percutaneous Approach (ICD-10-PCS; principal; 2023-10-23)
DX: M54.9 Dorsalgia, unspecified (principal); K80.50 Calculus of bile duct without cholangitis or cholecystitis without obstruction
CPT/HCPCS: 0241U-QW; 36415; 71045-TC-FY; 74177-TC; 76705-TC; 80053; 80162; 83735; 84484; 85025; 85610; 85730; 86850; 86900; 86901; 93005; 93010; 99285-25; J0131; Q9967

== ENCOUNTER 2023-11-12 09:40 | Inpatient (IN) | payer OTHER, BC ==
[2023-11-12] MEDS ORDERED: ACETAMINOPHEN INJECTION 100 ML IVPB ONE (11:14)
[2023-11-12 11:50] LABS: VENOUS BASE EXCESS -1.7 mmol/L (-2-2); VENOUS O2 SATURATION 79.4 % (70-80); VENOUS PCO2 35.8 mmHg (38-52); VENOUS PH 7.415 (7.310-7.410)
[2023-11-12 11:56] LABS: INR 1.37 (0.83-1.09); PROTHROMBIN TIME (PATIENT) 15.8 SEC (9.7-13.0)
[2023-11-12 11:58] LABS: ACTIVATED PTT 33.9 SECONDS (25.2-36.5)
[2023-11-12] MEDS: SODIUM CHLORIDE IV ONE (12:00)
[2023-11-12 12:03] LABS: BASO % 0.5 % (0-2.0); EOS % 2.6 % (0-4.5); HEMATOCRIT 28.2 % (35.4-49); MCH 33.4 pg (25.7-33.7); MEAN CELL VOLUME 104.3 fl (80-96); MEAN PLT VOLUME 9.5 fl (7.5-11.1); MONO % 5.4 % (3.8-10.2); NEUT % 81.5 % (42.8-82.8); PLATELET COUNT 283 10^3/uL (134-434); RBC 2.71 M/mm3 (4.00-5.60); RDW 24.2 % (11.9-15.9); WHITE BLOOD COUNT 12.1 K/mm3 (4.0-10.0)
[2023-11-12 12:09] LABS: POTASSIUM 4.3 mmol/L (3.5-5.1)
[2023-11-12 12:12] LABS: ALBUMIN 2.8 g/dl (3.4-5.0); BLOOD UREA NITROGEN 27.8 mg/dL (7-18); CALCIUM 8.5 mg/dL (8.5-10.1)
[2023-11-12 12:15] LABS: CREATININE 0.8 mg/dL (0.55-1.3)
[2023-11-12 12:16] LABS: TOT PROT 5.8 g/dl (6.4-8.2)
[2023-11-12] MEDS: ACETAMINOPHEN 1000 MG/100 ML BAG IVPB ONE (12:16)
[2023-11-12 12:17] LABS: BILIRUBIN,TOTAL 0.5 mg/dL (0.2-1)
[2023-11-12 12:45] LABS: ANISOCYTOSIS 3+; MACROCYTOSIS 1+
[2023-11-12] MEDS ORDERED: PIPERACILLIN/TAZOB 3.375 GM 3.375 GM/50 ML BAG IVPB ONE (13:32)
[2023-11-12] MEDS: PIPERACILLIN/TAZOB 3.375 GM 3.375 GM in DEXTROSE 5%-WATER - 50 ML IVPB ONE (13:40)
[2023-11-12 15:41] LABS: EPI CELLS 4 /uL (0-25.1); HYALINE CASTS 0 /uL (0-3.1); PH,URINE 5.5 (5.0-8.0); URINE APPEARANCE CLOUDY; URINE BACTERIA 506 /uL (0-1359); URINE BILIRUBIN NEGATIVE (NEGATIVE); URINE COLOR DK YELLOW; URINE GLUCOSE (UA) NEGATIVE (NEGATIVE); URINE KETONE NEGATIVE (NEGATIVE); URINE LEUK ESTERASE 2+ (NEGATIVE); URINE NITRITE NEGATIVE (NEGATIVE); URINE PROTEIN 2+ (NEGATIVE); URINE WBC 1514 /uL (0-25.8)
[2023-11-12 16:18] LABS: URINE RBC 539 /uL (0-23.9); YEAST PRESENT (NEGATIVE)
[2023-11-12] MEDS ORDERED: PIPERACILLIN/TAZOB 4.5 GM 4.5 GM in DEXTROSE 5%-WATER 100 ML IVPB SCH (21:00)
[2023-11-13] MEDS: APIXABAN 2.5 MG TABLET PO SCH (00:26)
[2023-11-13] MEDS: PIPERACILLIN/TAZOB 4.5 GM 4.5 GM in DEXTROSE 5%-WATER 100 ML IVPB SCH (00:29)
[2023-11-13] MEDS: MEROPENEM 1 GM in DEXTROSE 5%-WATER 100 ML IVPB ONE (02:05)
[2023-11-13 08:48] LABS: HEMATOCRIT 29.3 % (35.4-49); HEMOGLOBIN 9.6 GM/dL (11.7-16.9); MCH 34.4 pg (25.7-33.7); MCHC 32.7 g/dl (32.0-35.9); MEAN CELL VOLUME 105.3 fl (80-96); MEAN PLT VOLUME 9.4 fl (7.5-11.1); PLATELET COUNT 255 10^3/uL (134-434); RBC 2.78 M/mm3 (4.00-5.60); RDW 24.5 % (11.9-15.9); WHITE BLOOD COUNT 5.4 K/mm3 (4.0-10.0)
[2023-11-13 08:58] LABS: BLOOD UREA NITROGEN 20.2 mg/dL (7-18); CALCIUM 8.3 mg/dL (8.5-10.1); MAGNESIUM 2.4 mg/dL (1.8-2.4)
[2023-11-13 08:59] LABS: ALBUMIN 2.7 g/dl (3.4-5.0)
[2023-11-13 09:02] LABS: CREATININE 0.9 mg/dL (0.55-1.3)
[2023-11-13 09:03] LABS: BILIRUBIN,TOTAL 0.6 mg/dL (0.2-1); TOT PROT 5.8 g/dl (6.4-8.2)
[2023-11-13] MEDS ORDERED: ALBUTEROL SO4 HFA INHALER IH PRN (09:07)
[2023-11-13] MEDS: PIPERACILLIN/TAZOB 3.375 GM 3.375 GM in DEXTROSE 5%-WATER - 50 ML IVPB SCH (10:41)
[2023-11-13] MEDS: TAMSULOSIN HCL 0.4 MG CAP PO SCH (10:54)
[2023-11-13] MEDS: URSODIOL 300 MG CAPSULE PO SCH (10:54)
[2023-11-13] MEDS: LIDOCAINE 4% PATCH TP SCH (10:54)
[2023-11-13] MEDS: diazePAM 2 MG TABLET PO SCH ×2 (10:55→23:35)
[2023-11-13] MEDS: FINASTERIDE 5 MG TABLET (FP) PO SCH (10:55)
[2023-11-13] MEDS: MIDODRINE HCL 5 MG TABLET PO SCH (10:55)
[2023-11-13] MEDS: DIGOXIN 0.125 MG TABLET PO SCH (10:55)
[2023-11-13] MEDS: AMINO ACIDS 4.25%/D5W 1,000 ML IV SCH (13:41)
[2023-11-13] MEDS: POLYETHYLENE GLYCOL (HEALTHYLAX) 3350 17 GM PACKET PO SCH (13:42)
[2023-11-13] MEDS ORDERED: GABAPENTIN 400 MG CAPSULE PO SCH (14:00)
[2023-11-13] MEDS: THIAMINE HCL 200 MG/2 ML VIAL IVPB SCH (15:11)
[2023-11-13] MEDS ORDERED: ACETAMINOPHEN 325 MG TABLET (FP) PO PRN (17:54)
[2023-11-13] MEDS: LIDOCAINE PATCH REMOVAL MC SCH (22:45)
[2023-11-14 05:02] VITALS: RESP 18
[2023-11-14] MEDS: PIPERACILLIN/TAZOB 4.5 GM 4.5 GM in DEXTROSE 5%-WATER 100 ML IVPB SCH (08:08)
[2023-11-14] MEDS: CEFTRIAXONE 1 GM in DEXTROSE 5%-WATER - 50 ML IVPB ONE (11:39)
[2023-11-14 12:52] LABS: HEMOGLOBIN 9.1 GM/dL (11.7-16.9); MCH 33.8 pg (25.7-33.7); MCHC 32.4 g/dl (32.0-35.9); MEAN CELL VOLUME 104.5 fl (80-96); MEAN PLT VOLUME 9.1 fl (7.5-11.1); PLATELET COUNT 334 10^3/uL (134-434); RBC 2.68 M/mm3 (4.00-5.60); RDW 24.5 % (11.9-15.9)
[2023-11-14 13:16] LABS: POTASSIUM 4.4 mmol/L (3.5-5.1)
[2023-11-14 13:21] LABS: CALCIUM 8.8 mg/dL (8.5-10.1)
[2023-11-14 13:22] LABS: ALBUMIN 2.9 g/dl (3.4-5.0); BLOOD UREA NITROGEN 17.7 mg/dL (7-18); MAGNESIUM 2.3 mg/dL (1.8-2.4)
[2023-11-14 13:25] LABS: CREATININE 0.9 mg/dL (0.55-1.3); PHOSPHOROUS 2.4 mg/dL (2.5-4.9)
[2023-11-14 13:26] LABS: BILIRUBIN,TOTAL 0.6 mg/dL (0.2-1)
[2023-11-14] MEDS ORDERED: PATIENT'S OWN MEDICATION (NON-FORMULARY) (Oxycodone Hcl/Acetaminophen [Oxycodone-Acetamino PO PRN (17:28)
[2023-11-15] MEDS: oxyCODONE HCL 5 MG TABLET PO PRN (07:47)
[2023-11-15 08:16] LABS: BASO % 0.4 % (0-2.0); EOS % 3.6 % (0-4.5); HEMATOCRIT 28.2 % (35.4-49); LYMPH % 21.9 % (8-40); MCH 33.5 pg (25.7-33.7); MCHC 31.9 g/dl (32.0-35.9); MEAN CELL VOLUME 105.2 fl (80-96); MEAN PLT VOLUME 9.1 fl (7.5-11.1); MONO % 5.1 % (3.8-10.2); PLATELET COUNT 300 10^3/uL (134-434); RBC 2.68 M/mm3 (4.00-5.60); RDW 24.3 % (11.9-15.9); WHITE BLOOD COUNT 6.5 K/mm3 (4.0-10.0)
[2023-11-15 08:26] LABS: INR 1.31 (0.83-1.09); PROTHROMBIN TIME (PATIENT) 15.1 SEC (9.7-13.0)
[2023-11-15 08:54] LABS: POTASSIUM 4.3 mmol/L (3.5-5.1)
[2023-11-15 09:02] LABS: CALCIUM 8.3 mg/dL (8.5-10.1)
[2023-11-15 09:03] LABS: ALBUMIN 2.6 g/dl (3.4-5.0); BLOOD UREA NITROGEN 16.2 mg/dL (7-18); MAGNESIUM 2.3 mg/dL (1.8-2.4)
[2023-11-15 09:06] LABS: CREATININE 0.8 mg/dL (0.55-1.3); PHOSPHOROUS 2.6 mg/dL (2.5-4.9)
[2023-11-15 09:07] LABS: BILIRUBIN,TOTAL 0.4 mg/dL (0.2-1); TOT PROT 5.6 g/dl (6.4-8.2)
[2023-11-15] MEDS: CEFTRIAXONE 1 GM in DEXTROSE 5%-WATER - 50 ML IVPB SCH (09:52)
[2023-11-16 09:35] LABS: BASO % 1.1 % (0-2.0); EOS % 5.1 % (0-4.5); HEMOGLOBIN 9.1 GM/dL (11.7-16.9); LYMPH % 19.7 % (8-40); MCH 34.4 pg (25.7-33.7); MCHC 32.4 g/dl (32.0-35.9); MEAN CELL VOLUME 106.3 fl (80-96); MEAN PLT VOLUME 9.9 fl (7.5-11.1); NEUT % 69.1 % (42.8-82.8); PLATELET COUNT 187 10^3/uL (134-434); RBC 2.64 M/mm3 (4.00-5.60); RDW 24.5 % (11.9-15.9); WHITE BLOOD COUNT 6.6 K/mm3 (4.0-10.0)
[2023-11-16 09:54] LABS: POTASSIUM 4.4 mmol/L (3.5-5.1)
[2023-11-16 09:55] LABS: CALCIUM 8.3 mg/dL (8.5-10.1)
[2023-11-16 09:56] LABS: BLOOD UREA NITROGEN 16.3 mg/dL (7-18)
[2023-11-16 09:59] LABS: CREATININE 0.8 mg/dL (0.55-1.3)
[2023-11-16 13:36] LABS: ANISOCYTOSIS 3+; MACROCYTOSIS 2+
[2023-11-17 08:13] LABS: HEMATOCRIT 26.4 % (35.4-49); HEMOGLOBIN 8.4 GM/dL (11.7-16.9); INR 1.18 (0.83-1.09); MCH 33.6 pg (25.7-33.7); MEAN PLT VOLUME 9.1 fl (7.5-11.1); PLATELET COUNT 275 10^3/uL (134-434); PROTHROMBIN TIME (PATIENT) 13.7 SEC (9.7-13.0); RBC 2.51 M/mm3 (4.00-5.60); RDW 23.7 % (11.9-15.9)
[2023-11-17 08:41] LABS: POTASSIUM 4.6 mmol/L (3.5-5.1)
[2023-11-17 08:43] LABS: CALCIUM 8.1 mg/dL (8.5-10.1)
[2023-11-17 08:44] LABS: BLOOD UREA NITROGEN 16.6 mg/dL (7-18)
[2023-11-17 08:47] LABS: CREATININE 0.8 mg/dL (0.55-1.3)
[2023-11-18 07:48] VITALS: BP 112/70; PULSE 90; TEMP 98.3
[2023-11-18 10:57] VITALS: BMI 18.0
== END 2023-11-18 11:20 | disposition home or self-care (01) | DRG 698 ==
LOC: JER 09:40 → JERBED 16:04 → J6S 21:16
PROVIDERS: ADMIT Internal Medicine; ATTEND Internal Medicine
DX: T83.511A Infection and inflammatory reaction due to indwelling urethral catheter, initial encounter (principal); A41.9 Sepsis, unspecified organism; L89.104 Pressure ulcer of unspecified part of back, stage 4; E43 Unspecified severe protein-calorie malnutrition; R53.2 Functional quadriplegia; I50.32 Chronic diastolic (congestive) heart failure; J96.11 Chronic respiratory failure with hypoxia; Z68.1 Body mass index [BMI] 19.9 or less, adult; N39.0 Urinary tract infection, site not specified; Y83.9 Surgical procedure, unspecified as the cause of abnormal reaction of the patient, or of later complication, without mention of misadventure at the time of the procedure; B96.20 Unspecified Escherichia coli [E. coli] as the cause of diseases classified elsewhere; R33.9 Retention of urine, unspecified; R31.9 Hematuria, unspecified
CPT/HCPCS: 0241U-QW; 36415; 71045-TC-FY; 76775-TC; 76856-TC; 80048; 80053; 81003; 82803; 83605; 83735; 84100; 84484; 85025; 85027; 85610; 85730; 86850; 86900; 86901; 87040; 87086; 87186; 93005; 93010; 99285-25; J0131

== ENCOUNTER 2023-11-25 17:47 | Inpatient (IN) | payer OTHER, BC ==
[2023-11-25] MEDS ORDERED: ACETAMINOPHEN INJECTION 100 ML IVPB ONE (18:45)
[2023-11-25] MEDS: LACTATED RINGERS SOLUTION 1000 ML INFUS.BAG IV ONE (18:56)
[2023-11-25] MEDS: ACETAMINOPHEN 1000 MG/100 ML BAG IVPB ONE (18:56)
[2023-11-25 19:09] LABS: BASO % 0.5 % (0-2.0); EOS % 0.8 % (0-4.5); HEMATOCRIT 32.1 % (35.4-49); HEMOGLOBIN 10.2 GM/dL (11.7-16.9); LYMPH % 13.8 % (8-40); MCH 34.1 pg (25.7-33.7); MCHC 31.9 g/dl (32.0-35.9); MEAN CELL VOLUME 106.8 fl (80-96); MEAN PLT VOLUME 9.7 fl (7.5-11.1); MONO % 6.1 % (3.8-10.2); NEUT % 78.8 % (42.8-82.8); PLATELET COUNT 230 10^3/uL (134-434); RBC 3.01 M/mm3 (4.00-5.60); RDW 25.4 % (11.9-15.9)
[2023-11-25 19:31] LABS: POTASSIUM 4.6 mmol/L (3.5-5.1)
[2023-11-25 19:33] LABS: BLOOD UREA NITROGEN 22.9 mg/dL (7-18); CALCIUM 8.8 mg/dL (8.5-10.1)
[2023-11-25 19:38] LABS: BILIRUBIN,TOTAL 1.1 mg/dL (0.2-1); TOT PROT 6.6 g/dl (6.4-8.2)
[2023-11-25 20:08] LABS: ALBUMIN 3.2 g/dl (3.4-5.0)
[2023-11-25 20:15] LABS: ANISOCYTOSIS 2+; MACROCYTOSIS 0
[2023-11-25 20:29] LABS: EPI CELLS 5 /uL (0-25.1); HYALINE CASTS 7 /uL (0-3.1); PH,URINE 5.5 (5.0-8.0); URINE APPEARANCE CLEAR; URINE BACTERIA 89 /uL (0-1359); URINE BILIRUBIN NEGATIVE (NEGATIVE); URINE COLOR YELLOW; URINE GLUCOSE (UA) NEGATIVE (NEGATIVE); URINE KETONE NEGATIVE (NEGATIVE); URINE LEUK ESTERASE 1+ (NEGATIVE); URINE NITRITE NEGATIVE (NEGATIVE); URINE PROTEIN 2+ (NEGATIVE); URINE RBC 247 /uL (0-23.9); URINE WBC 693 /uL (0-25.8)
[2023-11-25] MEDS ORDERED: CEFTRIAXONE 1 GM/50 ML BAG ONE (20:58)
[2023-11-25 21:19] LABS: YEAST MODERATE (NEGATIVE)
[2023-11-25] MEDS: SODIUM CHLORIDE 1,000 ML IV SCH (21:44)
[2023-11-26 02:09] VITALS: BMI 16.3
[2023-11-26] MEDS ORDERED: PIPERACILLIN/TAZOB 3.375 GM 3.375 GM in DEXTROSE 5%-WATER - 50 ML IVPB SCH (03:15)
[2023-11-26] MEDS: PIPERACILLIN/TAZOB 3.375 GM 3.375 GM in DEXTROSE 5%-WATER - 50 ML IVPB SCH ×2 (03:53→17:08)
[2023-11-26 08:34] LABS: HEMATOCRIT 27.4 % (35.4-49); MCH 34.7 pg (25.7-33.7); MCHC 32.8 g/dl (32.0-35.9); MEAN CELL VOLUME 105.9 fl (80-96); MEAN PLT VOLUME 9.3 fl (7.5-11.1); PLATELET COUNT 187 10^3/uL (134-434); RBC 2.59 M/mm3 (4.00-5.60); RDW 25.6 % (11.9-15.9); WHITE BLOOD COUNT 5.9 K/mm3 (4.0-10.0)
[2023-11-26 08:55] LABS: POTASSIUM 4.4 mmol/L (3.5-5.1)
[2023-11-26 08:59] LABS: CALCIUM 8.8 mg/dL (8.5-10.1)
[2023-11-26 09:00] LABS: ALBUMIN 2.8 g/dl (3.4-5.0); BLOOD UREA NITROGEN 20.6 mg/dL (7-18); MAGNESIUM 2.3 mg/dL (1.8-2.4)
[2023-11-26 09:03] LABS: CREATININE 0.8 mg/dL (0.55-1.3); PHOSPHOROUS 3.4 mg/dL (2.5-4.9)
[2023-11-26 09:04] LABS: BILIRUBIN,TOTAL 1.8 mg/dL (0.2-1); TOT PROT 5.7 g/dl (6.4-8.2)
[2023-11-26] MEDS ORDERED: ENOXAPARIN NA (PORCINE) 40 MG/0.4 ML DISP.SYRIN SQ SCH (10:00)
[2023-11-26] MEDS ORDERED: CEFTRIAXONE 1 GM in DEXTROSE 5%-WATER - 50 ML IVPB SCH (10:00)
[2023-11-26] MEDS: ACETAMINOPHEN 325 MG TABLET (FP) PO PRN (13:10)
[2023-11-26] MEDS: oxyCODONE HCL 5 MG TABLET PO PRN (13:12)
[2023-11-26] MEDS: GABAPENTIN 400 MG CAPSULE PO SCH (15:04)
[2023-11-26] MEDS: MIDODRINE HCL 5 MG TABLET PO SCH (15:04)
[2023-11-26] MEDS ORDERED: IOHEXOL (OMNIPAQUE PO) 12 MG/ML - 500 ML BOTTLE PO ONE (16:42)
[2023-11-26] MEDS: APIXABAN 2.5 MG TABLET PO SCH (22:12)
[2023-11-26] MEDS: URSODIOL 300 MG CAPSULE PO SCH (22:12)
[2023-11-27 08:25] LABS: HEMATOCRIT 25.6 % (35.4-49); HEMOGLOBIN 8.3 GM/dL (11.7-16.9); MCH 34.5 pg (25.7-33.7); MCHC 32.4 g/dl (32.0-35.9); MEAN CELL VOLUME 106.5 fl (80-96); MEAN PLT VOLUME 9.9 fl (7.5-11.1); PLATELET COUNT 186 10^3/uL (134-434); RBC 2.41 M/mm3 (4.00-5.60); RDW 25.2 % (11.9-15.9); WHITE BLOOD COUNT 6.1 K/mm3 (4.0-10.0)
[2023-11-27 08:53] LABS: POTASSIUM 4.4 mmol/L (3.5-5.1)
[2023-11-27 09:11] LABS: CALCIUM 8.7 mg/dL (8.5-10.1)
[2023-11-27 09:12] LABS: ALBUMIN 2.6 g/dl (3.4-5.0); BLOOD UREA NITROGEN 20.4 mg/dL (7-18)
[2023-11-27 09:15] LABS: CREATININE 0.9 mg/dL (0.55-1.3)
[2023-11-27 09:16] LABS: BILIRUBIN,TOTAL 0.7 mg/dL (0.2-1); TOT PROT 5.6 g/dl (6.4-8.2)
[2023-11-28 08:23] LABS: HEMATOCRIT 25.9 % (35.4-49); HEMOGLOBIN 8.4 GM/dL (11.7-16.9); MCHC 32.4 g/dl (32.0-35.9); MEAN CELL VOLUME 108.3 fl (80-96); MEAN PLT VOLUME 9.9 fl (7.5-11.1); PLATELET COUNT 208 10^3/uL (134-434); RDW 25.4 % (11.9-15.9); WHITE BLOOD COUNT 8.6 K/mm3 (4.0-10.0)
[2023-11-28 08:25] LABS: POTASSIUM 4.6 mmol/L (3.5-5.1)
[2023-11-28 08:27] LABS: BLOOD UREA NITROGEN 25.1 mg/dL (7-18); CALCIUM 8.4 mg/dL (8.5-10.1)
[2023-11-28 08:28] LABS: ALBUMIN 2.7 g/dl (3.4-5.0)
[2023-11-28 08:31] LABS: CREATININE 0.9 mg/dL (0.55-1.3)
[2023-11-28 08:32] LABS: BILIRUBIN,TOTAL 0.6 mg/dL (0.2-1); TOT PROT 5.6 g/dl (6.4-8.2)
[2023-11-28 15:23] VITALS: BP 104/69; PULSE 99; RESP 18; TEMP 99
[2023-11-28] MEDS: ACETAMINOPHEN 1000 MG/100 ML BAG IVPB ONE (17:13)
== END 2023-11-28 17:24 | disposition home or self-care (01) | DRG 698 ==
LOC: JER 17:47 → JERBED 20:46 → J5S 11-26 00:03
PROVIDERS: ADMIT Internal Medicine
PROC: 0T2BX0Z Change Drainage Device in Bladder, External Approach (ICD-10-PCS; principal; 2023-11-25)
DX: T83.511A Infection and inflammatory reaction due to indwelling urethral catheter, initial encounter (principal); E43 Unspecified severe protein-calorie malnutrition; L89.104 Pressure ulcer of unspecified part of back, stage 4; G82.20 Paraplegia, unspecified; N17.9 Acute kidney failure, unspecified; I50.32 Chronic diastolic (congestive) heart failure; J96.11 Chronic respiratory failure with hypoxia; R64 Cachexia; Z68.1 Body mass index [BMI] 19.9 or less, adult; N39.0 Urinary tract infection, site not specified; N40.1 Benign prostatic hyperplasia with lower urinary tract symptoms; L89.152 Pressure ulcer of sacral region, stage 2; Y84.8 Other medical procedures as the cause of abnormal reaction of the patient, or of later complication, without mention of misadventure at the time of the procedure; R33.8 Other retention of urine; F41.8 Other specified anxiety disorders; M54.50 Low back pain, unspecified; K21.9 Gastro-esophageal reflux disease without esophagitis; K59.00 Constipation, unspecified; K44.9 Diaphragmatic hernia without obstruction or gangrene; I48.91 Unspecified atrial fibrillation; E78.5 Hyperlipidemia, unspecified; J44.9 Chronic obstructive pulmonary disease, unspecified; M21.372 Foot drop, left foot; M21.371 Foot drop, right foot; I11.0 Hypertensive heart disease with heart failure; Z99.81 Dependence on supplemental oxygen
CPT/HCPCS: 36415; 71045-TC-FY; 76705-TC; 80053; 81003; 82248; 83735; 84100; 85025; 85027; 87040; 87086; 93005; 93010; 99285-25; J0131

== ENCOUNTER 2023-11-30 19:16 | Observation (INO) | payer OTHER, BC ==
[2023-11-30] MEDS: SODIUM CHLORIDE 1,769 ML IV ONE (20:23)
[2023-11-30 20:32] LABS: BASO % 0.9 % (0-2.0); EOS % 2.8 % (0-4.5); HEMATOCRIT 29.6 % (35.4-49); HEMOGLOBIN 9.7 GM/dL (11.7-16.9); LYMPH % 11.8 % (8-40); MCH 34.8 pg (25.7-33.7); MCHC 32.7 g/dl (32.0-35.9); MEAN CELL VOLUME 106.7 fl (80-96); MEAN PLT VOLUME 9.5 fl (7.5-11.1); MONO % 4.6 % (3.8-10.2); NEUT % 79.9 % (42.8-82.8); PLATELET COUNT 245 10^3/uL (134-434); RBC 2.77 M/mm3 (4.00-5.60); RDW 25.5 % (11.9-15.9)
[2023-11-30 20:34] LABS: EPI CELLS 4 /uL (0-25.1); HYALINE CASTS 26 /uL (0-3.1); PH,URINE 6.5 (5.0-8.0); URINE APPEARANCE CLOUDY; URINE BACTERIA 81 /uL (0-1359); URINE BILIRUBIN NEGATIVE (NEGATIVE); URINE COLOR YELLOW; URINE GLUCOSE (UA) NEGATIVE (NEGATIVE); URINE KETONE NEGATIVE (NEGATIVE); URINE LEUK ESTERASE 2+ (NEGATIVE); URINE NITRITE NEGATIVE (NEGATIVE); URINE PROTEIN 1+ (NEGATIVE); URINE RBC 146 /uL (0-23.9); URINE WBC 780 /uL (0-25.8)
[2023-11-30 20:36] LABS: VENOUS BASE EXCESS -0.9 mmol/L (-2-2); VENOUS O2 SATURATION 67.5 % (70-80); VENOUS PH 7.41 (7.310-7.410)
[2023-11-30 20:39] LABS: INR 1.33 (0.83-1.09); PROTHROMBIN TIME (PATIENT) 14.9 SEC (9.7-13.0)
[2023-11-30 20:41] LABS: ACTIVATED PTT 35.8 SECONDS (25.2-36.5)
[2023-11-30 20:48] LABS: YEAST FEW (NEGATIVE)
[2023-11-30 20:52] LABS: CALCIUM 9.2 mg/dL (8.5-10.1)
[2023-11-30 20:53] LABS: ALBUMIN 3.2 g/dl (3.4-5.0); BLOOD UREA NITROGEN 24.9 mg/dL (7-18)
[2023-11-30 20:56] LABS: CREATININE 0.9 mg/dL (0.55-1.3)
[2023-11-30 20:57] LABS: BILIRUBIN,TOTAL 0.6 mg/dL (0.2-1)
[2023-11-30 20:58] LABS: TOT PROT 6.6 g/dl (6.4-8.2)
[2023-11-30 21:09] LABS: ANISOCYTOSIS 2+; MACROCYTOSIS 0; OVALOCYTE 1+
[2023-11-30] MEDS ORDERED: ACETAMINOPHEN INJECTION 100 ML IVPB ONE (23:22)
[2023-11-30] MEDS: ACETAMINOPHEN 1000 MG/100 ML BAG IVPB ONE (23:26)
[2023-11-30] MEDS ORDERED: PIPERACILLIN/TAZOB 4.5 GM 4.5 GM/100 ML BAG IVPB ONE (23:29)
[2023-11-30] MEDS: PIPERACILLIN/TAZOB 4.5 GM 4.5 GM in DEXTROSE 5%-WATER 100 ML IVPB ONE (23:33)
[2023-11-30] MEDS ORDERED: HYDROmorphone HCl 2 MG/ML VIAL ONE (23:38)
[2023-11-30] MEDS: HYDROmorphone HCl 2 MG/ML VIAL IVPUSH ONE (23:41)
[2023-11-30] MEDS ORDERED: LIDOCAINE HCL 2% JELLY 11 ML TP ONE (23:46)
[2023-12-01 00:24] LABS: EPI CELLS 11 /uL (0-25.1); HYALINE CASTS 6 /uL (0-3.1); URINE APPEARANCE TURBID; URINE BACTERIA 56 /uL (0-1359); URINE BILIRUBIN NEGATIVE (NEGATIVE); URINE COLOR YELLOW; URINE GLUCOSE (UA) NEGATIVE (NEGATIVE); URINE KETONE NEGATIVE (NEGATIVE); URINE LEUK ESTERASE 2+ (NEGATIVE); URINE NITRITE NEGATIVE (NEGATIVE); URINE PROTEIN 2+ (NEGATIVE); URINE UROBILINOGEN 0.2 mg/dL (0.2-1.0); URINE WBC 3287 /uL (0-25.8)
[2023-12-01] MEDS ORDERED: morphine SO4 SUSTAINED ACTING 30 MG TABLET.SA PO PRN (02:57)
[2023-12-01] MEDS ORDERED: oxyCODONE HCL 20 MG SUSTAINED ACTING TABLET PO PRN (03:02)
[2023-12-01] MEDS ORDERED: GABAPENTIN 400 MG CAPSULE ONE (05:22)
[2023-12-01] MEDS ORDERED: oxyCODONE HCL 10 MG SUSTAINED ACTING TABLET ONE (05:22)
[2023-12-01] MEDS: oxyCODONE HCL 20 MG SUSTAINED ACTING TABLET PO SCH (05:26)
[2023-12-01] MEDS: GABAPENTIN 400 MG CAPSULE PO SCH (05:26)
[2023-12-01 06:36] LABS: POTASSIUM 4.4 mmol/L (3.5-5.1)
[2023-12-01 06:39] LABS: CALCIUM 8.6 mg/dL (8.5-10.1)
[2023-12-01 06:40] LABS: ALBUMIN 2.7 g/dl (3.4-5.0); BLOOD UREA NITROGEN 22.7 mg/dL (7-18); MAGNESIUM 2.3 mg/dL (1.8-2.4)
[2023-12-01 06:43] LABS: CREATININE 0.9 mg/dL (0.55-1.3); PHOSPHOROUS 3.6 mg/dL (2.5-4.9)
[2023-12-01 06:44] LABS: BILIRUBIN,TOTAL 0.9 mg/dL (0.2-1); TOT PROT 5.6 g/dl (6.4-8.2)
[2023-12-01 06:46] LABS: BASO % 0.4 % (0-2.0); EOS % 2.5 % (0-4.5); HEMATOCRIT 26.2 % (35.4-49); HEMOGLOBIN 8.4 GM/dL (11.7-16.9); MCH 34.6 pg (25.7-33.7); MEAN CELL VOLUME 108.1 fl (80-96); MEAN PLT VOLUME 9.6 fl (7.5-11.1); MONO % 5.4 % (3.8-10.2); NEUT % 73.7 % (42.8-82.8); PLATELET COUNT 209 10^3/uL (134-434); RBC 2.42 M/mm3 (4.00-5.60); RDW 25.4 % (11.9-15.9); WHITE BLOOD COUNT 11.1 K/mm3 (4.0-10.0)
[2023-12-01 08:15] LABS: URINE RBC 484.2 /uL (0-23.9); YEAST POSITIVE (NEGATIVE)
[2023-12-01 08:58] LABS: ERYTHROCYTE SEDIMENTATION RATE 83 mm/hr (0-20)
[2023-12-01] MEDS ORDERED: MIDODRINE HCL 5 MG TABLET PO SCH (10:00)
[2023-12-01] MEDS: URSODIOL 300 MG CAPSULE PO SCH (10:43)
[2023-12-01] MEDS: MIDODRINE HCL 5 MG, MIDODRINE HCL 2.5 MG PO SCH (10:44)
[2023-12-01] MEDS: ASCORBIC ACID 500 MG TABLET (FP) PO SCH (10:44)
[2023-12-01] MEDS: APIXABAN 2.5 MG TABLET PO SCH (10:44)
[2023-12-01 10:51] VITALS: RESP 18
[2023-12-01] MEDS: ACETAMINOPHEN 325 MG TABLET (FP) PO SCH (11:16)
[2023-12-01] MEDS: oxyCODONE HCL 5 MG TABLET PO SCH (11:17)
[2023-12-02 08:39] LABS: POTASSIUM 4.7 mmol/L (3.5-5.1)
[2023-12-02 08:42] LABS: CALCIUM 8.3 mg/dL (8.5-10.1)
[2023-12-02 08:43] LABS: ALBUMIN 2.9 g/dl (3.4-5.0); BLOOD UREA NITROGEN 23.4 mg/dL (7-18); MAGNESIUM 2.2 mg/dL (1.8-2.4)
[2023-12-02 08:46] LABS: CREATININE 0.8 mg/dL (0.55-1.3); HEMATOCRIT 26.8 % (35.4-49); HEMOGLOBIN 8.5 GM/dL (11.7-16.9); MCH 34.1 pg (25.7-33.7); MCHC 31.6 g/dl (32.0-35.9); MEAN CELL VOLUME 107.8 fl (80-96); MEAN PLT VOLUME 9.5 fl (7.5-11.1); PHOSPHOROUS 3.2 mg/dL (2.5-4.9); PLATELET COUNT 241 10^3/uL (134-434); RBC 2.49 M/mm3 (4.00-5.60); RDW 25.2 % (11.9-15.9); WHITE BLOOD COUNT 12.2 K/mm3 (4.0-10.0)
[2023-12-02 08:48] LABS: BILIRUBIN,TOTAL 0.6 mg/dL (0.2-1); TOT PROT 5.8 g/dl (6.4-8.2)
[2023-12-02] MEDS: BISACODYL 10 MG SUPP.RECT PR ONE (09:20)
[2023-12-02] MEDS: POLYETHYLENE GLYCOL (HEALTHYLAX) 3350 17 GM PACKET PO SCH (10:42)
[2023-12-02] MEDS ORDERED: oxyCODONE HCL 5 MG TABLET PO PRN (10:59)
[2023-12-02] MEDS: SIMETHICONE 80 MG TAB.CHEW (FP) PO ONE (18:12)
[2023-12-03] MEDS: oxyCODONE HCL 5 MG TABLET PO PRN (11:15)
[2023-12-03 14:55] VITALS: BP 131/69; PULSE 130; TEMP 98.6
[2023-12-03 15:28] VITALS: BMI 18.7
== END 2023-12-03 15:33 | disposition home or self-care (01) ==
LOC: JER 19:16 → JERBED 12-01 00:41 → INTOOBSV 12-01 00:41 → J5S 12-01 08:48
PROVIDERS: ADMIT Internal Medicine; ATTEND Internal Medicine
PROC: 3E033NZ Introduction of Analgesics, Hypnotics, Sedatives into Peripheral Vein, Percutaneous Approach (ICD-10-PCS; principal; 2023-12-01)
PROC: 3E033NZ Introduction of Analgesics, Hypnotics, Sedatives into Peripheral Vein, Percutaneous Approach (ICD-10-PCS; 2023-12-01)
PROC: 3E03329 Introduction of Other Anti-infective into Peripheral Vein, Percutaneous Approach (ICD-10-PCS; 2023-12-01)
PROC: 3E0337Z Introduction of Electrolytic and Water Balance Substance into Peripheral Vein, Percutaneous Approach (ICD-10-PCS; 2023-12-01)
PROC: 0T2BX0Z Change Drainage Device in Bladder, External Approach (ICD-10-PCS; 2023-12-01)
DX: N39.0 Urinary tract infection, site not specified (principal); R52 Pain, unspecified; Z46.6 Encounter for fitting and adjustment of urinary device; I11.0 Hypertensive heart disease with heart failure; F41.8 Other specified anxiety disorders; E78.00 Pure hypercholesterolemia, unspecified; N40.0 Benign prostatic hyperplasia without lower urinary tract symptoms; K58.9 Irritable bowel syndrome, unspecified; K57.92 Diverticulitis of intestine, part unspecified, without perforation or abscess without bleeding; I48.91 Unspecified atrial fibrillation; Z79.01 Long term (current) use of anticoagulants; Z87.891 Personal history of nicotine dependence; Z88.8 Allergy status to other drugs, medicaments and biological substances; Z88.5 Allergy status to narcotic agent; Z91.010 Allergy to peanuts; J96.10 Chronic respiratory failure, unspecified whether with hypoxia or hypercapnia; Z99.81 Dependence on supplemental oxygen; L89.899 Pressure ulcer of other site, unspecified stage
CPT/HCPCS: 0241U-QW; 36415; 51702; 71045-TC-FY; 72192-TC; 74018-TC-FY; 80053; 81003; 82803; 83605; 83735; 84100; 84484; 85025; 85027; 85610; 85651; 85730; 86140; 87040; 87077; 87086; 93005; 93010; 96361; 96365; 96375; 99285-25; E0186; G0378; J0131

== ENCOUNTER 2023-12-08 03:26 | Observation (INO) | payer OTHER, BC ==
[2023-12-08 04:53] LABS: EPI CELLS 36 /uL (0-25.1); HYALINE CASTS 3 /uL (0-3.1); URINE APPEARANCE CLEAR; URINE BACTERIA 25 /uL (0-1359); URINE BILIRUBIN NEGATIVE (NEGATIVE); URINE COLOR YELLOW; URINE GLUCOSE (UA) NEGATIVE (NEGATIVE); URINE KETONE NEGATIVE (NEGATIVE); URINE LEUK ESTERASE 2+ (NEGATIVE); URINE NITRITE NEGATIVE (NEGATIVE); URINE PROTEIN 1+ (NEGATIVE); URINE UROBILINOGEN 0.2 mg/dL (0.2-1.0); URINE WBC 398 /uL (0-25.8)
[2023-12-08 05:21] LABS: BASO % 0.8 % (0-2.0); EOS % 0.9 % (0-4.5); HEMATOCRIT 31.2 % (35.4-49); HEMOGLOBIN 9.8 GM/dL (11.7-16.9); LYMPH % 4.1 % (8-40); MCH 34.2 pg (25.7-33.7); MCHC 31.5 g/dl (32.0-35.9); MEAN CELL VOLUME 108.4 fl (80-96); MEAN PLT VOLUME 8.8 fl (7.5-11.1); NEUT % 89.2 % (42.8-82.8); PLATELET COUNT 295 10^3/uL (134-434); RBC 2.87 M/mm3 (4.00-5.60); RDW 24.5 % (11.9-15.9); WHITE BLOOD COUNT 11.8 K/mm3 (4.0-10.0)
[2023-12-08 05:30] LABS: POTASSIUM 5.2 mmol/L (3.5-5.1)
[2023-12-08 05:33] LABS: ALBUMIN 2.9 g/dl (3.4-5.0); BLOOD UREA NITROGEN 24.4 mg/dL (7-18); CALCIUM 8.7 mg/dL (8.5-10.1)
[2023-12-08 05:36] LABS: CREATININE 0.9 mg/dL (0.55-1.3)
[2023-12-08 05:38] LABS: BILIRUBIN,TOTAL 0.5 mg/dL (0.2-1); TOT PROT 5.9 g/dl (6.4-8.2)
[2023-12-08 07:19] LABS: POTASSIUM 4.5 mmol/L (3.5-5.1)
[2023-12-08 07:20] LABS: CALCIUM 8.6 mg/dL (8.5-10.1)
[2023-12-08 07:21] LABS: BLOOD UREA NITROGEN 23.6 mg/dL (7-18)
[2023-12-08 07:24] LABS: CREATININE 0.9 mg/dL (0.55-1.3)
[2023-12-08 08:32] LABS: URINE RBC 502.7 /uL (0-23.9); YEAST NEGATIVE (NEGATIVE)
[2023-12-08] MEDS ORDERED: CEFTRIAXONE 1 GM/50 ML BAG ONE (08:55)
[2023-12-08] MEDS: CEFTRIAXONE 1,000 MG in DEXTROSE 5%-WATER - 50 ML IVPB ONE (08:56)
[2023-12-08 09:15] LABS: ANISOCYTOSIS 3+; MACROCYTOSIS 2+
[2023-12-08] MEDS ORDERED: ASCORBIC ACID 500 MG TABLET (FP) ONE (13:54)
[2023-12-08] MEDS ORDERED: APIXABAN 2.5 MG TABLET ONE (13:54)
[2023-12-08] MEDS ORDERED: TAMSULOSIN HCL 0.4 MG CAP ONE (13:54)
[2023-12-08] MEDS: TAMSULOSIN HCL 0.4 MG CAP PO SCH (13:57)
[2023-12-08] MEDS: APIXABAN 2.5 MG TABLET PO SCH (13:57)
[2023-12-08] MEDS: ASCORBIC ACID 500 MG TABLET (FP) PO SCH (13:57)
[2023-12-08] MEDS ORDERED: GABAPENTIN 400 MG CAPSULE ONE (14:05)
[2023-12-08] MEDS ORDERED: MIDODRINE HCL 5 MG TABLET ONE (14:06)
[2023-12-08] MEDS: GABAPENTIN 400 MG CAPSULE PO SCH (14:13)
[2023-12-08] MEDS: SODIUM CHLORIDE 1,000 ML IV SCH (14:14)
[2023-12-08] MEDS: MIDODRINE HCL 5 MG TABLET PO SCH (14:14)
[2023-12-08] MEDS: URSODIOL 300 MG CAPSULE PO SCH (17:40)
[2023-12-08 23:17] VITALS: RESP 18
[2023-12-09 08:24] LABS: BASO % 0.7 % (0-2.0); EOS % 2.4 % (0-4.5); HEMATOCRIT 28.8 % (35.4-49); HEMOGLOBIN 9.2 GM/dL (11.7-16.9); LYMPH % 18.6 % (8-40); MEAN CELL VOLUME 109.3 fl (80-96); MEAN PLT VOLUME 9.3 fl (7.5-11.1); MONO % 6.5 % (3.8-10.2); NEUT % 71.8 % (42.8-82.8); PLATELET COUNT 268 10^3/uL (134-434); RBC 2.64 M/mm3 (4.00-5.60); RDW 25.2 % (11.9-15.9)
[2023-12-09 08:31] LABS: POTASSIUM 4.7 mmol/L (3.5-5.1)
[2023-12-09 08:47] LABS: CALCIUM 8.2 mg/dL (8.5-10.1)
[2023-12-09 08:48] LABS: ALBUMIN 2.6 g/dl (3.4-5.0); BLOOD UREA NITROGEN 17.6 mg/dL (7-18); MAGNESIUM 2.2 mg/dL (1.8-2.4)
[2023-12-09 08:51] LABS: CREATININE 0.7 mg/dL (0.55-1.3); PHOSPHOROUS 3.4 mg/dL (2.5-4.9)
[2023-12-09 08:52] LABS: BILIRUBIN,TOTAL 0.7 mg/dL (0.2-1); TOT PROT 5.5 g/dl (6.4-8.2)
[2023-12-09] MEDS: oxyCODONE HCL 5 MG TABLET PO PRN (09:21)
[2023-12-09] MEDS: TAMSULOSIN HCL 0.4 MG CAP PO SCH (09:23)
[2023-12-09 15:10] VITALS: BMI 18.6
[2023-12-10] MEDS: AMINO ACIDS/PROTEIN HYDROLYS 30 ML LIQUID.PKT PO SCH (09:05)
[2023-12-10] MEDS: MULTIVITAMINS (DAILY MVI) TABLET (FP) PO SCH (11:09)
[2023-12-10] MEDS: ASCORBIC ACID 500 MG TABLET (FP) PO SCH (11:09)
[2023-12-10 11:40] VITALS: BP 111/80; PULSE 106; TEMP 97.5
== END 2023-12-10 11:38 | disposition home or self-care (01) ==
LOC: JER 03:26 → JERBED 08:10 → UNDOADMOB 08:10 → INTOOBSV 08:10 → JERBED 10:17 → J8W 15:15
PROVIDERS: ADMIT Internal Medicine; ATTEND Nurse Practitioner Family
PROC: 3E03329 Introduction of Other Anti-infective into Peripheral Vein, Percutaneous Approach (ICD-10-PCS; principal; 2023-12-08)
PROC: 3E0337Z Introduction of Electrolytic and Water Balance Substance into Peripheral Vein, Percutaneous Approach (ICD-10-PCS; 2023-12-08)
DX: N39.0 Urinary tract infection, site not specified (principal); R33.9 Retention of urine, unspecified; R53.2 Functional quadriplegia; N31.9 Neuromuscular dysfunction of bladder, unspecified; I11.0 Hypertensive heart disease with heart failure; I50.9 Heart failure, unspecified; I48.0 Paroxysmal atrial fibrillation; E78.5 Hyperlipidemia, unspecified; M54.59 Other low back pain; G89.29 Other chronic pain; Z79.01 Long term (current) use of anticoagulants; N40.1 Benign prostatic hyperplasia with lower urinary tract symptoms; Z29.89 Encounter for other specified prophylactic measures; J96.11 Chronic respiratory failure with hypoxia
CPT/HCPCS: 36415; 80048; 80053; 81003; 83735; 84100; 85025; 87086; 93005; 93010; 96365; 99285-25; G0378

== ENCOUNTER 2024-01-14 01:34 | Inpatient (IN) | payer OTHER, BC ==
[2024-01-14] MEDS: SODIUM CHLORIDE 500 ML IV STA (02:38)
[2024-01-14 02:44] LABS: BASO % 0.6 % (0-2.0); EOS % 5.7 % (0-4.5); HEMATOCRIT 34.2 % (35.4-49); HEMOGLOBIN 10.9 GM/dL (11.7-16.9); LYMPH % 27.9 % (8-40); MCH 35.7 pg (25.7-33.7); MEAN CELL VOLUME 111.3 fl (80-96); MEAN PLT VOLUME 9.1 fl (7.5-11.1); MONO % 5.2 % (3.8-10.2); NEUT % 60.6 % (42.8-82.8); PLATELET COUNT 216 10^3/uL (134-434); RBC 3.07 M/mm3 (4.00-5.60); RDW 22.4 % (11.9-15.9); WHITE BLOOD COUNT 8.3 K/mm3 (4.0-10.0)
[2024-01-14 02:46] LABS: EPI CELLS 5 /uL (0-25.1); HYALINE CASTS 1 /uL (0-3.1); PH,URINE 6.5 (5.0-8.0); URINE APPEARANCE TURBID; URINE BACTERIA >9,000 /uL (0-1359); URINE BILIRUBIN NEGATIVE (NEGATIVE); URINE COLOR YELLOW; URINE GLUCOSE (UA) NEGATIVE (NEGATIVE); URINE KETONE NEGATIVE (NEGATIVE); URINE LEUK ESTERASE 3+ (NEGATIVE); URINE NITRITE POSITIVE (NEGATIVE); URINE PROTEIN TRACE (NEGATIVE); URINE WBC 5323 /uL (0-25.8)
[2024-01-14 02:57] LABS: INR 1.55 (0.83-1.09); PROTHROMBIN TIME (PATIENT) 17.3 SEC (9.7-13.0)
[2024-01-14 02:59] LABS: ACTIVATED PTT 42.4 SECONDS (25.2-36.5)
[2024-01-14 03:05] LABS: POTASSIUM 5.1 mmol/L (3.5-5.1)
[2024-01-14 03:08] LABS: BLOOD UREA NITROGEN 29.4 mg/dL (7-18); CALCIUM 8.6 mg/dL (8.5-10.1); MAGNESIUM 2.3 mg/dL (1.8-2.4)
[2024-01-14 03:09] LABS: ALBUMIN 3.5 g/dl (3.4-5.0)
[2024-01-14 03:11] LABS: CREATININE 1.1 mg/dL (0.55-1.3)
[2024-01-14 03:12] LABS: PHOSPHOROUS 3.5 mg/dL (2.5-4.9)
[2024-01-14 03:13] LABS: TOT PROT 6.7 g/dl (6.4-8.2)
[2024-01-14 03:14] LABS: BILIRUBIN,TOTAL 0.4 mg/dL (0.2-1)
[2024-01-14] MEDS ORDERED: CEFTRIAXONE 1 GM/50 ML BAG ONE (03:48)
[2024-01-14] MEDS: CEFTRIAXONE 1 GM in DEXTROSE 5%-WATER - 50 ML IVPB ONE (03:58)
[2024-01-14 04:30] LABS: URINE RBC 81 /uL (0-23.9); YEAST NONE SEEN (NEGATIVE)
[2024-01-14] MEDS ORDERED: PATIENT'S OWN MEDICATION (NON-FORMULARY) (Oxycodone Hcl/Acetaminophen [Oxycodone-Acetamino PO SCH (05:00)
[2024-01-14 05:20] LABS: ANISOCYTOSIS 3+; MACROCYTOSIS 3+; OVALOCYTE 1+; ROULEAU 1+
[2024-01-14] MEDS ORDERED: DOCUSATE SODIUM 100 MG CAPSULE (FP) PO PRN (05:26)
[2024-01-14] MEDS ORDERED: MAGNESIUM HYDROX 2400MG/30ML ORAL SUSPENSION 30 ML CUP PO PRN ×2 (05:26→20:11)
[2024-01-14] MEDS ORDERED: GABAPENTIN 400 MG CAPSULE ONE (06:07)
[2024-01-14] MEDS: GABAPENTIN 400 MG CAPSULE PO SCH ×2 (06:15→22:23)
[2024-01-14 06:29] LABS: HEMATOCRIT 29.5 % (35.4-49); HEMOGLOBIN 9.7 GM/dL (11.7-16.9); MCH 36.6 pg (25.7-33.7); MCHC 32.9 g/dl (32.0-35.9); MEAN CELL VOLUME 111.5 fl (80-96); MEAN PLT VOLUME 9.5 fl (7.5-11.1); PLATELET COUNT 185 10^3/uL (134-434); RBC 2.64 M/mm3 (4.00-5.60); RDW 22.3 % (11.9-15.9); WHITE BLOOD COUNT 7.8 K/mm3 (4.0-10.0)
[2024-01-14 06:46] LABS: POTASSIUM 4.4 mmol/L (3.5-5.1)
[2024-01-14 06:50] LABS: CALCIUM 7.8 mg/dL (8.5-10.1)
[2024-01-14 06:51] LABS: ALBUMIN 2.9 g/dl (3.4-5.0); MAGNESIUM 2.1 mg/dL (1.8-2.4)
[2024-01-14] MEDS ORDERED: ACETAMINOPHEN 325 MG TABLET (FP) ONE ×2 (06:51→08:00)
[2024-01-14] MEDS ORDERED: oxyCODONE HCL 5 MG TABLET ONE ×2 (06:51→08:00)
[2024-01-14 06:54] LABS: CREATININE 0.9 mg/dL (0.55-1.3); PHOSPHOROUS 3.3 mg/dL (2.5-4.9)
[2024-01-14 06:55] LABS: BILIRUBIN,TOTAL 0.3 mg/dL (0.2-1); TOT PROT 5.4 g/dl (6.4-8.2)
[2024-01-14] MEDS: oxyCODONE HCL 5 MG TABLET PO SCH ×2 (06:55→22:28)
[2024-01-14] MEDS: ACETAMINOPHEN 325 MG TABLET (FP) PO SCH ×2 (06:55→22:30)
[2024-01-14] MEDS ORDERED: TAMSULOSIN HCL 0.4 MG CAP ONE (08:00)
[2024-01-14] MEDS: TAMSULOSIN HCL 0.4 MG CAP PO SCH ×2 (08:09→22:24)
[2024-01-14] MEDS: ASCORBIC ACID 500 MG TABLET (FP) PO SCH ×2 (10:30→22:24)
[2024-01-14] MEDS: MIDODRINE HCL 5 MG TABLET PO SCH (10:30)
[2024-01-14] MEDS: POLYETHYLENE GLYCOL (HEALTHYLAX) 3350 17 GM PACKET PO SCH ×2 (10:31→22:25)
[2024-01-14] MEDS: APIXABAN 2.5 MG TABLET PO SCH ×2 (10:31→22:23)
[2024-01-14] MEDS: URSODIOL 300 MG CAPSULE PO SCH ×2 (10:32→22:32)
[2024-01-14] MEDS ORDERED: SENNOSIDES 8.6MG TABLET (FP) PO SCH (22:00)
[2024-01-14] MEDS: SENNOSIDES 8.6MG TABLET (FP) PO SCH (22:23)
[2024-01-15 09:45] LABS: BASO % 0.9 % (0-2.0); EOS % 6.1 % (0-4.5); HEMATOCRIT 32.1 % (35.4-49); HEMOGLOBIN 10.4 GM/dL (11.7-16.9); LYMPH % 27.8 % (8-40); MCHC 32.4 g/dl (32.0-35.9); MEAN CELL VOLUME 111.1 fl (80-96); MEAN PLT VOLUME 9.2 fl (7.5-11.1); MONO % 3.8 % (3.8-10.2); NEUT % 61.4 % (42.8-82.8); PLATELET COUNT 200 10^3/uL (134-434); RBC 2.89 M/mm3 (4.00-5.60); RDW 21.1 % (11.9-15.9); WHITE BLOOD COUNT 7.6 K/mm3 (4.0-10.0)
[2024-01-15] MEDS ORDERED: CEFTRIAXONE 1 GM in DEXTROSE 5%-WATER - 50 ML IVPB SCH (10:00)
[2024-01-15 10:13] LABS: POTASSIUM 4.3 mmol/L (3.5-5.1)
[2024-01-15 10:17] LABS: CALCIUM 8.7 mg/dL (8.5-10.1)
[2024-01-15 10:18] LABS: ALBUMIN 3.3 g/dl (3.4-5.0); BLOOD UREA NITROGEN 25.5 mg/dL (7-18)
[2024-01-15 10:22] LABS: BILIRUBIN,TOTAL 0.5 mg/dL (0.2-1); TOT PROT 6.1 g/dl (6.4-8.2)
[2024-01-15] MEDS: MIDODRINE HCL 5 MG TABLET PO SCH (10:48)
[2024-01-15] MEDS: CEFTRIAXONE 1 GM in DEXTROSE 5%-WATER - 50 ML IVPB SCH (10:49)
[2024-01-15] MEDS: BENZOCAINE/MENTH/CETYLPYRD CL 1 EACH LOZENGE MM PRN (14:54)
[2024-01-16] MEDS: DOCUSATE SODIUM 100 MG CAPSULE (FP) PO PRN (09:07)
[2024-01-16 09:19] LABS: BASO % 0.6 % (0-2.0); EOS % 7.1 % (0-4.5); HEMATOCRIT 31.4 % (35.4-49); HEMOGLOBIN 10.2 GM/dL (11.7-16.9); LYMPH % 32.6 % (8-40); MCHC 32.4 g/dl (32.0-35.9); MEAN CELL VOLUME 111.2 fl (80-96); MEAN PLT VOLUME 9.3 fl (7.5-11.1); MONO % 5.6 % (3.8-10.2); NEUT % 54.1 % (42.8-82.8); PLATELET COUNT 182 10^3/uL (134-434); RBC 2.82 M/mm3 (4.00-5.60); RDW 21.4 % (11.9-15.9); WHITE BLOOD COUNT 7.2 K/mm3 (4.0-10.0)
[2024-01-16 09:42] LABS: POTASSIUM 4.6 mmol/L (3.5-5.1)
[2024-01-16 09:52] LABS: CALCIUM 8.5 mg/dL (8.5-10.1)
[2024-01-16 09:53] LABS: ALBUMIN 3.1 g/dl (3.4-5.0); BLOOD UREA NITROGEN 25.3 mg/dL (7-18)
[2024-01-16 09:56] LABS: CREATININE 0.8 mg/dL (0.55-1.3)
[2024-01-16 09:57] LABS: BILIRUBIN,TOTAL 0.5 mg/dL (0.2-1)
[2024-01-17 03:31] VITALS: BP 132/86; PULSE 102; RESP 18; TEMP 98.7
== END 2024-01-17 03:55 | disposition home or self-care (01) | DRG 689 ==
LOC: JER 01:34 → INTOOBSV 03:24 → JERBED 03:24 → UNDOADMOB 03:24 → J2W 09:06 → JERBED 09:06 → J2W 12:57 → JERBED 12:57 → J8W 19:26 → OBSVTOIN 01-16 10:43
PROVIDERS: ADMIT Internal Medicine; ATTEND Internal Medicine
DX: N39.0 Urinary tract infection, site not specified (principal); L89.104 Pressure ulcer of unspecified part of back, stage 4; G82.20 Paraplegia, unspecified; J96.11 Chronic respiratory failure with hypoxia; I50.32 Chronic diastolic (congestive) heart failure; I48.91 Unspecified atrial fibrillation; M41.56 Other secondary scoliosis, lumbar region; L89.212 Pressure ulcer of right hip, stage 2; B96.20 Unspecified Escherichia coli [E. coli] as the cause of diseases classified elsewhere; I10 Essential (primary) hypertension; E78.5 Hyperlipidemia, unspecified; K59.00 Constipation, unspecified
CPT/HCPCS: 36415; 71045-TC-FY; 74177-TC; 80053; 80061; 81003; 82550; 83605; 83690; 83735; 84100; 84484; 85025; 85027; 85610; 85730; 87086; 87186; 93005; 93010; 99285-25; G0378; Q9967

== ENCOUNTER 2024-01-22 01:08 | Observation (INO) | payer OTHER, BC ==
[2024-01-22 02:19] LABS: BASO % 0.8 % (0-2.0); EOS % 4.8 % (0-4.5); MCHC 32.2 g/dl (32.0-35.9); MEAN CELL VOLUME 111.8 fl (80-96); MEAN PLT VOLUME 9.7 fl (7.5-11.1); MONO % 5.2 % (3.8-10.2); NEUT % 69.2 % (42.8-82.8); PLATELET COUNT 219 10^3/uL (134-434); RBC 3.04 M/mm3 (4.00-5.60); RDW 21.4 % (11.9-15.9); WHITE BLOOD COUNT 7.3 K/mm3 (4.0-10.0)
[2024-01-22 02:24] LABS: INR 1.24 (0.83-1.09); PROTHROMBIN TIME (PATIENT) 13.9 SEC (9.7-13.0)
[2024-01-22 02:27] LABS: ACTIVATED PTT 35.7 SECONDS (25.2-36.5)
[2024-01-22 02:37] LABS: POTASSIUM 4.8 mmol/L (3.5-5.1)
[2024-01-22] MEDS: SODIUM CHLORIDE 500 ML IV STA ×2 (02:40→05:02)
[2024-01-22 02:41] LABS: ALBUMIN 3.4 g/dl (3.4-5.0); BLOOD UREA NITROGEN 27.3 mg/dL (7-18)
[2024-01-22 02:45] LABS: BILIRUBIN,TOTAL 0.4 mg/dL (0.2-1); TOT PROT 6.6 g/dl (6.4-8.2)
[2024-01-22 03:09] LABS: ANISOCYTOSIS 2+; MACROCYTOSIS 2+
[2024-01-22 08:19] LABS: URINE APPEARANCE Clear; URINE BILIRUBIN Negative (NEGATIVE); URINE COLOR Yellow; URINE GLUCOSE (UA) Negative (NEGATIVE); URINE KETONE Negative (NEGATIVE); URINE LEUK ESTERASE 3+ (NEGATIVE); URINE NITRITE Negative (NEGATIVE); URINE PROTEIN Negative (NEGATIVE); URINE UROBILINOGEN 0.2 mg/dL (0.2-1.0)
[2024-01-22 09:23] LABS: URINE RBC 5 /uL (0-23.9)
[2024-01-22 09:24] LABS: EPI CELLS 7 /uL (0-25.1); HYALINE CASTS 1 /uL (0-3.1); URINE BACTERIA 5 /uL (0-1359); URINE WBC 286 /uL (0-25.8)
[2024-01-22] MEDS ORDERED: CEFTRIAXONE 1 GM/50 ML BAG ONE (10:19)
[2024-01-22] MEDS: CEFTRIAXONE 1 GM in DEXTROSE 5%-WATER - 100 ML IVPB ONE (10:26)
[2024-01-22] MEDS ORDERED: APIXABAN 2.5 MG TABLET ONE (12:23)
[2024-01-22] MEDS: APIXABAN 2.5 MG TABLET PO SCH (12:29)
[2024-01-22] MEDS: GABAPENTIN 400 MG CAPSULE PO SCH (15:08)
[2024-01-22] MEDS: MIDODRINE HCL 5 MG TABLET PO SCH (15:09)
[2024-01-22 15:50] VITALS: RESP 18; BMI 19.5
[2024-01-22] MEDS: TAMSULOSIN HCL 0.4 MG CAP PO SCH (22:45)
[2024-01-22] MEDS: URSODIOL 300 MG CAPSULE PO SCH (22:45)
[2024-01-22] MEDS: ASCORBIC ACID 500 MG TABLET (FP) PO SCH (22:45)
[2024-01-23] MEDS: ACETAMINOPHEN 325 MG TABLET (FP) PO PRN (05:31)
[2024-01-23] MEDS: oxyCODONE HCL 5 MG TABLET PO PRN (05:32)
[2024-01-23] MEDS: DOCUSATE SODIUM 100 MG CAPSULE (FP) PO SCH (09:24)
[2024-01-23 09:40] LABS: HEMATOCRIT 31.3 % (35.4-49); HEMOGLOBIN 10.2 GM/dL (11.7-16.9); MCHC 32.7 g/dl (32.0-35.9); MEAN CELL VOLUME 110.1 fl (80-96); MEAN PLT VOLUME 9.2 fl (7.5-11.1); PLATELET COUNT 182 10^3/uL (134-434); RBC 2.84 M/mm3 (4.00-5.60); RDW 20.7 % (11.9-15.9); WHITE BLOOD COUNT 6.2 K/mm3 (4.0-10.0)
[2024-01-23 10:03] LABS: POTASSIUM 4.4 mmol/L (3.5-5.1)
[2024-01-23 10:10] LABS: CALCIUM 8.6 mg/dL (8.5-10.1)
[2024-01-23 10:11] LABS: ALBUMIN 3.1 g/dl (3.4-5.0); BLOOD UREA NITROGEN 20.4 mg/dL (7-18); MAGNESIUM 2.1 mg/dL (1.8-2.4)
[2024-01-23 10:12] LABS: PHOSPHOROUS 3.1 mg/dL (2.5-4.9)
[2024-01-23 10:13] LABS: BILIRUBIN,TOTAL 0.5 mg/dL (0.2-1); TOT PROT 5.8 g/dl (6.4-8.2)
[2024-01-23 10:14] LABS: CREATININE 0.8 mg/dL (0.55-1.3)
[2024-01-23] MEDS: CEFTRIAXONE 1 GM in DEXTROSE 5%-WATER - 50 ML IVPB SCH (10:21)
[2024-01-23 10:31] LABS: ANISOCYTOSIS 1+; MACROCYTOSIS 1+
[2024-01-23] MEDS ORDERED: MIDODRINE HCL 2.5 MG TABLET PO SCH (19:00)
[2024-01-23] MEDS: NAPROXEN 250 MG TABLET PO SCH (21:17)
[2024-01-24] MEDS: MIDODRINE HCL 2.5 MG TABLET PO SCH (09:18)
[2024-01-24 10:33] VITALS: BP 100/76; PULSE 98; TEMP 97.4
[2024-01-24] MEDS: ACETAMINOPHEN 500 MG TABLET (FP) PO PRN (10:55)
== END 2024-01-24 18:42 | disposition home or self-care (01) ==
LOC: JER 01:08 → JERBED 09:29 → INTOOBSV 09:29 → OBSVTOIN 09:29 → UNDOADMOB 09:29 → JERBED 11:28 → J6S 13:59 → JERBED 13:59 → J6S 13:59
PROVIDERS: ADMIT Internal Medicine; ATTEND Internal Medicine
PROC: 3E033GC Introduction of Other Therapeutic Substance into Peripheral Vein, Percutaneous Approach (ICD-10-PCS; principal; 2024-01-22)
PROC: 3E0337Z Introduction of Electrolytic and Water Balance Substance into Peripheral Vein, Percutaneous Approach (ICD-10-PCS; 2024-01-22)
DX: N39.0 Urinary tract infection, site not specified (principal); G89.29 Other chronic pain; S31.000A Unspecified open wound of lower back and pelvis without penetration into retroperitoneum, initial encounter; M54.9 Dorsalgia, unspecified; E78.5 Hyperlipidemia, unspecified; I48.91 Unspecified atrial fibrillation; Z79.01 Long term (current) use of anticoagulants; I50.9 Heart failure, unspecified; I11.9 Hypertensive heart disease without heart failure; J96.11 Chronic respiratory failure with hypoxia; F41.8 Other specified anxiety disorders; N40.0 Benign prostatic hyperplasia without lower urinary tract symptoms; K57.90 Diverticulosis of intestine, part unspecified, without perforation or abscess without bleeding; Z96.0 Presence of urogenital implants; F11.20 Opioid dependence, uncomplicated; F44.4 Conversion disorder with motor symptom or deficit; X58.XXXA Exposure to other specified factors, initial encounter; Y93.9 Activity, unspecified; Z87.891 Personal history of nicotine dependence
CPT/HCPCS: 0241U-QW; 36415; 71045-TC-FY; 80053; 81003; 83735; 84100; 84484; 85025; 85610; 85730; 87077; 87086; 93005; 93010; 96361; 96365; 96366; 99285-25; E0186; G0378

== ENCOUNTER 2024-02-12 04:08 | Observation (INO) | payer OTHER, BC ==
[2024-02-12 04:22] VITALS: BMI 21.4
[2024-02-12] MEDS ORDERED: ACETAMINOPHEN INJECTION 100 ML IVPB ONE (05:26)
[2024-02-12] MEDS: ACETAMINOPHEN 1000 MG/100 ML BAG IVPB ONE (05:31)
[2024-02-12 06:23] LABS: BASO % 0.7 % (0-2.0); EOS % 6.9 % (0-4.5); HEMATOCRIT 34.5 % (35.4-49); HEMOGLOBIN 11.2 GM/dL (11.7-16.9); LYMPH % 17.2 % (8-40); MCH 36.4 pg (25.7-33.7); MCHC 32.5 g/dl (32.0-35.9); MEAN CELL VOLUME 112.1 fl (80-96); MEAN PLT VOLUME 9.8 fl (7.5-11.1); MONO % 5.6 % (3.8-10.2); NEUT % 69.6 % (42.8-82.8); PLATELET COUNT 206 10^3/uL (134-434); RBC 3.08 M/mm3 (4.00-5.60); RDW 18.8 % (11.9-15.9); VENOUS BASE EXCESS -4.6 mmol/L (-2-2); VENOUS O2 SATURATION 88.2 % (70-80); VENOUS PH 7.365 (7.310-7.410); WHITE BLOOD COUNT 7.4 K/mm3 (4.0-10.0)
[2024-02-12 06:41] LABS: POTASSIUM 4.8 mmol/L (3.5-5.1)
[2024-02-12 06:42] LABS: ALBUMIN 3.4 g/dl (3.4-5.0); BLOOD UREA NITROGEN 29.9 mg/dL (7-18); CALCIUM 8.6 mg/dL (8.5-10.1)
[2024-02-12 06:46] LABS: CREATININE 1.1 mg/dL (0.55-1.3)
[2024-02-12 06:48] LABS: BILIRUBIN,TOTAL 0.4 mg/dL (0.2-1); TOT PROT 6.5 g/dl (6.4-8.2)
[2024-02-12 08:52] LABS: ANISOCYTOSIS 0; MACROCYTOSIS 2+; OVALOCYTE 2+
[2024-02-12 11:01] LABS: RETICULOCYTES 0.98 % (0.5-1.5)
[2024-02-12] MEDS ORDERED: ENOXAPARIN NA (PORCINE) 40 MG/0.4 ML DISP.SYRIN SQ ONE (11:04)
[2024-02-12] MEDS: ENOXAPARIN NA (PORCINE) 40 MG/0.4 ML DISP.SYRIN SQ SCH (11:07)
[2024-02-12] MEDS: DEXTROSE 5%-LACTATED RINGERS 1,000 ML IV SCH (11:07)
[2024-02-12] MEDS ORDERED: ACETAMINOPHEN 325 MG TABLET (FP) ONE (11:45)
[2024-02-12] MEDS: ACETAMINOPHEN 325 MG TABLET (FP) PO PRN (11:49)
[2024-02-12 16:47] LABS: EPI CELLS 2 /uL (0-25.1); HYALINE CASTS 12 /uL (0-3.1); URINE APPEARANCE CLOUDY; URINE BACTERIA 13 /uL (0-1359); URINE BILIRUBIN NEGATIVE (NEGATIVE); URINE COLOR YELLOW; URINE GLUCOSE (UA) NEGATIVE (NEGATIVE); URINE KETONE NEGATIVE (NEGATIVE); URINE LEUK ESTERASE 2+ (NEGATIVE); URINE NITRITE NEGATIVE (NEGATIVE); URINE PROTEIN TRACE (NEGATIVE); URINE RBC 54 /uL (0-23.9); URINE UROBILINOGEN 0.2 mg/dL (0.2-1.0); URINE WBC 1780 /uL (0-25.8)
[2024-02-12] MEDS ORDERED: CEFTRIAXONE 1 GM/50 ML BAG ONE ×2 (18:12→18:25)
[2024-02-12] MEDS: CEFTRIAXONE 1 GM in DEXTROSE 5%-WATER - 50 ML IVPB SCH (18:12)
[2024-02-12 20:19] LABS: YEAST SEEN (NEGATIVE)
[2024-02-12] MEDS ORDERED: APIXABAN 2.5 MG TABLET PO SCH (22:00)
[2024-02-12] MEDS ORDERED: APIXABAN 5 MG TABLET ONE (23:43)
[2024-02-12] MEDS ORDERED: hydrOXYzine PAMOATE 25 MG CAPSULE (FP) PO ONE (23:43)
[2024-02-12] MEDS ORDERED: SENNOSIDES 8.6MG TABLET (FP) PO ONE (23:44)
[2024-02-12] MEDS ORDERED: DOCUSATE SODIUM 100 MG CAPSULE (FP) PO ONE (23:44)
[2024-02-12] MEDS: hydrOXYzine PAMOATE 25 MG CAPSULE (FP) PO ONE (23:54)
[2024-02-12] MEDS: APIXABAN 5 MG TABLET PO SCH (23:55)
[2024-02-12] MEDS: DOCUSATE SODIUM 100 MG CAPSULE (FP) PO SCH (23:55)
[2024-02-12] MEDS: SENNOSIDES 8.6MG TABLET (FP) PO SCH (23:55)
[2024-02-13 06:38] LABS: HEMATOCRIT 33.5 % (35.4-49); HEMOGLOBIN 11.1 GM/dL (11.7-16.9); MCH 36.8 pg (25.7-33.7); MCHC 33.2 g/dl (32.0-35.9); MEAN CELL VOLUME 110.8 fl (80-96); MEAN PLT VOLUME 9.4 fl (7.5-11.1); PLATELET COUNT 192 10^3/uL (134-434); RBC 3.03 M/mm3 (4.00-5.60); RDW 18.4 % (11.9-15.9); WHITE BLOOD COUNT 10.6 K/mm3 (4.0-10.0)
[2024-02-13 06:55] LABS: POTASSIUM 3.9 mmol/L (3.5-5.1)
[2024-02-13 06:58] LABS: CALCIUM 8.5 mg/dL (8.5-10.1)
[2024-02-13 06:59] LABS: ALBUMIN 3.3 g/dl (3.4-5.0)
[2024-02-13 07:01] LABS: CREATININE 0.7 mg/dL (0.55-1.3); PHOSPHOROUS 3.2 mg/dL (2.5-4.9)
[2024-02-13 07:02] LABS: TOT PROT 6.2 g/dl (6.4-8.2)
[2024-02-13 07:03] LABS: BILIRUBIN,TOTAL 0.5 mg/dL (0.2-1)
[2024-02-13] MEDS ORDERED: CEFTRIAXONE 1 GM/50 ML BAG ONE (09:30)
[2024-02-13] MEDS ORDERED: APIXABAN 5 MG TABLET ONE (09:30)
[2024-02-13] MEDS ORDERED: POLYETHYLENE GLYCOL (HEALTHYLAX) 3350 17 GM PACKET ONE (09:33)
[2024-02-13] MEDS: POLYETHYLENE GLYCOL (HEALTHYLAX) 3350 17 GM PACKET PO SCH ×2 (09:43→22:44)
[2024-02-13] MEDS ORDERED: MIDODRINE HCL 5 MG TABLET ONE (13:53)
[2024-02-13] MEDS: MIDODRINE HCL 2.5 MG TABLET PO SCH (13:56)
[2024-02-13] MEDS ORDERED: ACETAMINOPHEN 325 MG TABLET (FP) PO PRN (16:52)
[2024-02-13] MEDS: METOPROLOL TARTRATE 25 MG TABLET (FP) PO ONE (18:38)
[2024-02-13] MEDS: oxyCODONE HCL 5 MG TABLET PO PRN (20:03)
[2024-02-13] MEDS: ACETAMINOPHEN 325 MG TABLET (FP) PO PRN (20:04)
[2024-02-13] MEDS: APIXABAN 2.5 MG TABLET PO SCH (22:43)
[2024-02-13] MEDS: TAMSULOSIN HCL 0.4 MG CAP PO SCH (22:43)
[2024-02-13] MEDS: URSODIOL 300 MG CAPSULE PO SCH (22:43)
[2024-02-13] MEDS: ASCORBIC ACID 500 MG TABLET (FP) PO SCH (22:43)
[2024-02-13] MEDS: SENNOSIDES 8.6MG TABLET (FP) PO SCH (22:43)
[2024-02-14 08:37] LABS: BASO % 0.9 % (0-2.0); EOS % 4.4 % (0-4.5); HEMATOCRIT 30.7 % (35.4-49); HEMOGLOBIN 10.3 GM/dL (11.7-16.9); LYMPH % 28.1 % (8-40); MCH 36.7 pg (25.7-33.7); MCHC 33.4 g/dl (32.0-35.9); MEAN CELL VOLUME 109.9 fl (80-96); MEAN PLT VOLUME 9.6 fl (7.5-11.1); MONO % 6.6 % (3.8-10.2); PLATELET COUNT 175 10^3/uL (134-434); RDW 17.8 % (11.9-15.9); WHITE BLOOD COUNT 8.1 K/mm3 (4.0-10.0)
[2024-02-14 08:54] LABS: POTASSIUM 4.4 mmol/L (3.5-5.1)
[2024-02-14 08:55] LABS: CALCIUM 8.3 mg/dL (8.5-10.1)
[2024-02-14 08:56] LABS: BLOOD UREA NITROGEN 22.7 mg/dL (7-18)
[2024-02-14 08:59] LABS: CREATININE 0.8 mg/dL (0.55-1.3)
[2024-02-14] MEDS: MAGNESIUM HYDROX 2400MG/30ML ORAL SUSPENSION 30 ML CUP PO PRN (09:01)
[2024-02-14] MEDS: FLUCYTOSINE 500 MG CAPSULE PO SCH (14:29)
[2024-02-14] MEDS: MIDODRINE HCL 2.5 MG, MIDODRINE HCL 5 MG PO SCH (15:55)
[2024-02-15 13:56] LABS: BASO % 0.6 % (0-2.0); EOS % 5.3 % (0-4.5); HEMATOCRIT 32.2 % (35.4-49); HEMOGLOBIN 10.7 GM/dL (11.7-16.9); LYMPH % 22.1 % (8-40); MCH 36.4 pg (25.7-33.7); MCHC 33.3 g/dl (32.0-35.9); MEAN CELL VOLUME 109.5 fl (80-96); MEAN PLT VOLUME 9.7 fl (7.5-11.1); MONO % 5.5 % (3.8-10.2); NEUT % 66.5 % (42.8-82.8); PLATELET COUNT 179 10^3/uL (134-434); RBC 2.94 M/mm3 (4.00-5.60); RDW 17.9 % (11.9-15.9); WHITE BLOOD COUNT 6.5 K/mm3 (4.0-10.0)
[2024-02-15 14:24] LABS: POTASSIUM 4.2 mmol/L (3.5-5.1)
[2024-02-15 14:25] LABS: CALCIUM 8.2 mg/dL (8.5-10.1)
[2024-02-15 14:28] LABS: CREATININE 0.8 mg/dL (0.55-1.3)
[2024-02-15 20:50] VITALS: RESP 18
[2024-02-16 07:08] LABS: BASO % 0.6 % (0-2.0); EOS % 7.2 % (0-4.5); HEMATOCRIT 30.1 % (35.4-49); HEMOGLOBIN 9.9 GM/dL (11.7-16.9); LYMPH % 30.1 % (8-40); MCH 36.5 pg (25.7-33.7); MCHC 32.9 g/dl (32.0-35.9); MEAN PLT VOLUME 9.7 fl (7.5-11.1); MONO % 7.4 % (3.8-10.2); NEUT % 54.7 % (42.8-82.8); PLATELET COUNT 166 10^3/uL (134-434); RBC 2.71 M/mm3 (4.00-5.60); RDW 18.1 % (11.9-15.9)
[2024-02-16 07:20] LABS: POTASSIUM 4.6 mmol/L (3.5-5.1)
[2024-02-16 07:24] LABS: BLOOD UREA NITROGEN 21.3 mg/dL (7-18)
[2024-02-16 07:28] LABS: CREATININE 0.8 mg/dL (0.55-1.3)
[2024-02-16 09:45] VITALS: BP 105/63; PULSE 110; TEMP 98.6
== END 2024-02-16 12:18 | disposition home or self-care (01) ==
LOC: JER 04:08 → JERBED 07:40 → J4S 02-13 15:50
PROVIDERS: ADMIT Internal Medicine; ATTEND Nurse Practitioner
PROC: 3E033NZ Introduction of Analgesics, Hypnotics, Sedatives into Peripheral Vein, Percutaneous Approach (ICD-10-PCS; principal; 2024-02-12)
PROC: 3E023GC Introduction of Other Therapeutic Substance into Muscle, Percutaneous Approach (ICD-10-PCS; 2024-02-12)
PROC: 3E033NZ Introduction of Analgesics, Hypnotics, Sedatives into Peripheral Vein, Percutaneous Approach (ICD-10-PCS; 2024-02-12)
PROC: 3E023GC Introduction of Other Therapeutic Substance into Muscle, Percutaneous Approach (ICD-10-PCS; 2024-02-12)
DX: N39.0 Urinary tract infection, site not specified (principal); Z87.440 Personal history of urinary (tract) infections; N20.0 Calculus of kidney; N40.0 Benign prostatic hyperplasia without lower urinary tract symptoms; I48.91 Unspecified atrial fibrillation; K21.9 Gastro-esophageal reflux disease without esophagitis; K44.9 Diaphragmatic hernia without obstruction or gangrene; G89.29 Other chronic pain; M19.90 Unspecified osteoarthritis, unspecified site; M54.50 Low back pain, unspecified; K80.50 Calculus of bile duct without cholangitis or cholecystitis without obstruction; J44.9 Chronic obstructive pulmonary disease, unspecified; K59.00 Constipation, unspecified; F41.8 Other specified anxiety disorders; Z88.8 Allergy status to other drugs, medicaments and biological substances; Z88.5 Allergy status to narcotic agent; Z91.010 Allergy to peanuts; Z91.011 Allergy to milk products; Z87.891 Personal history of nicotine dependence
CPT/HCPCS: 0241U-QW; 36415; 71045-TC-FY; 74018-TC-FY; 76870-TC; 80048; 80053; 81003; 82803; 83605; 83735; 84100; 84484; 85025; 85027; 85045; 87040; 87077; 87086; 93005; 93010; 96365; 96372; 96375; 99285-25; G0378; J0131

== ENCOUNTER 2024-03-04 07:25 | Emergency (ER) | payer OTHER, BC ==
[2024-03-04 08:17] VITALS: BMI 21.5
[2024-03-04 09:53] LABS: BASO % 1.4 % (0-2.0); EOS % 6.5 % (0-4.5); HEMATOCRIT 33.1 % (35.4-49); HEMOGLOBIN 10.8 GM/dL (11.7-16.9); LYMPH % 28.4 % (8-40); MCHC 32.7 g/dl (32.0-35.9); MEAN CELL VOLUME 113.1 fl (80-96); MEAN PLT VOLUME 9.1 fl (7.5-11.1); MONO % 5.4 % (3.8-10.2); NEUT % 58.3 % (42.8-82.8); PLATELET COUNT 181 10^3/uL (134-434); RBC 2.92 M/mm3 (4.00-5.60); RDW 18.8 % (11.9-15.9); WHITE BLOOD COUNT 7.7 K/mm3 (4.0-10.0)
[2024-03-04 10:18] LABS: POTASSIUM 4.8 mmol/L (3.5-5.1)
[2024-03-04 10:21] LABS: ALBUMIN 3.5 g/dl (3.4-5.0); BLOOD UREA NITROGEN 30.5 mg/dL (7-18)
[2024-03-04 10:25] LABS: BILIRUBIN,TOTAL 0.4 mg/dL (0.2-1); TOT PROT 6.4 g/dl (6.4-8.2)
[2024-03-04 10:37] LABS: ANISOCYTOSIS 1+; MACROCYTOSIS 2+
[2024-03-04] MEDS: SODIUM CHLORIDE 0.9% 500 ML INFUS.BAG IV ONE (11:22)
[2024-03-04 11:56] LABS: EPI CELLS 1 /uL (0-25.1); HYALINE CASTS 1 /uL (0-3.1); PH,URINE 5.5 (5.0-8.0); URINE APPEARANCE CLOUDY; URINE BACTERIA 28 /uL (0-1359); URINE BILIRUBIN NEGATIVE (NEGATIVE); URINE COLOR YELLOW; URINE GLUCOSE (UA) NEGATIVE (NEGATIVE); URINE KETONE NEGATIVE (NEGATIVE); URINE LEUK ESTERASE 3+ (NEGATIVE); URINE NITRITE NEGATIVE (NEGATIVE); URINE PROTEIN NEGATIVE (NEGATIVE); URINE RBC 28 /uL (0-23.9); URINE UROBILINOGEN 0.2 mg/dL (0.2-1.0); URINE WBC 2015 /uL (0-25.8)
[2024-03-04 12:33] LABS: YEAST NEGATIVE (NEGATIVE)
[2024-03-04] MEDS ORDERED: CEFTRIAXONE 1 GM/50 ML BAG ONE (12:46)
[2024-03-04 14:43] VITALS: BP 140/67; PULSE 72; RESP 19; TEMP 97.9
== END 2024-03-04 14:48 | disposition home or self-care (01) ==
LOC: JER 07:25
DX: N39.0 Urinary tract infection, site not specified (principal); R11.0 Nausea; T40.2X5A Adverse effect of other opioids, initial encounter; R00.0 Tachycardia, unspecified
CPT/HCPCS: 36415; 71045-TC-FY; 80053; 81003; 82962; 85025; 87077; 87086; 93005; 93010; 99285-25

== ENCOUNTER 2024-04-14 12:46 | Inpatient (IN) | payer OTHER, BC ==
[2024-04-14] MEDS ORDERED: oxyCODONE HCL 5 MG TABLET ONE (14:29)
[2024-04-14] MEDS: oxyCODONE HCL 5 MG TABLET PO ONE (14:30)
[2024-04-14] MEDS ORDERED: PATIENT'S OWN MEDICATION (NON-FORMULARY) (Oxycodone Hcl/Acetaminophen [Oxycodone-Acetamino PO PRN (17:37)
[2024-04-14] MEDS: PATIENT'S OWN MEDICATION (NON-FORMULARY) (Oxycodone Hcl/Acetaminophen [Oxycodone-Acetamino PO SCH (17:56)
[2024-04-14] MEDS ORDERED: oxyCODONE HCL 5 MG TABLET PO PRN (17:58)
[2024-04-14] MEDS ORDERED: ACETAMINOPHEN 325 MG TABLET (FP) PO PRN (17:58)
[2024-04-14] MEDS: MIDODRINE HCL 5 MG TABLET PO SCH (18:27)
[2024-04-14] MEDS: URSODIOL 300 MG CAPSULE PO SCH (21:20)
[2024-04-14] MEDS: APIXABAN 2.5 MG TABLET PO SCH (21:20)
[2024-04-14] MEDS: TAMSULOSIN HCL 0.4 MG CAP PO SCH (21:20)
[2024-04-14] MEDS: DOCUSATE SODIUM 100 MG CAPSULE (FP) PO SCH (21:20)
[2024-04-14] MEDS: hydrOXYzine PAMOATE 25 MG CAPSULE (FP) PO ONE (21:20)
[2024-04-14] MEDS: ASCORBIC ACID 500 MG TABLET (FP) PO SCH (21:21)
[2024-04-14] MEDS: SENNOSIDES 8.6MG TABLET (FP) PO SCH (21:21)
[2024-04-14] MEDS: GABAPENTIN 400 MG CAPSULE PO SCH (21:21)
[2024-04-14] MEDS: POLYETHYLENE GLYCOL (HEALTHYLAX) 3350 17 GM PACKET PO SCH (21:21)
[2024-04-15] MEDS: DEXTROSE 5%-NORMAL SALINE 1,000 ML IV SCH (11:25)
[2024-04-15] MEDS: oxyCODONE HCL 5 MG TABLET PO SCH (11:26)
[2024-04-15] MEDS: ACETAMINOPHEN 325 MG TABLET (FP) PO SCH (11:27)
[2024-04-15] MEDS: MULTIVIT-MINERALS ORAL LIQUID PO SCH (12:33)
[2024-04-15 15:55] VITALS: BMI 22.8
[2024-04-15] MEDS: AMINO ACIDS/PROTEIN HYDROLYS 30 ML LIQUID.PKT PO SCH (18:05)
[2024-04-16 07:37] VITALS: RESP 18
[2024-04-16 10:58] LABS: BASO % 0.8 % (0-2.0); EOS % 6.6 % (0-4.5); HEMATOCRIT 30.1 % (35.4-49); HEMOGLOBIN 9.9 GM/dL (11.7-16.9); LYMPH % 20.6 % (8-40); MCHC 32.7 g/dl (32.0-35.9); MEAN CELL VOLUME 116.2 fl (80-96); MEAN PLT VOLUME 10.2 fl (7.5-11.1); MONO % 5.4 % (3.8-10.2); NEUT % 66.6 % (42.8-82.8); PLATELET COUNT 165 10^3/uL (134-434); RBC 2.59 M/mm3 (4.00-5.60); RDW 18.5 % (11.9-15.9); WHITE BLOOD COUNT 6.4 K/mm3 (4.0-10.0)
[2024-04-16 11:19] LABS: POTASSIUM 4.2 mmol/L (3.5-5.1)
[2024-04-16 11:22] LABS: CALCIUM 8.8 mg/dL (8.5-10.1)
[2024-04-16 11:23] LABS: ALBUMIN 3.5 g/dl (3.4-5.0); BLOOD UREA NITROGEN 26.4 mg/dL (7-18)
[2024-04-16 11:28] LABS: BILIRUBIN,TOTAL 0.8 mg/dL (0.2-1); TOT PROT 6.2 g/dl (6.4-8.2)
[2024-04-16 11:49] LABS: EPI CELLS 0 /uL (0-25.1); HYALINE CASTS 0 /uL (0-3.1); PH,URINE 5.5 (5.0-8.0); URINE APPEARANCE CLOUDY; URINE BACTERIA >9,000 /uL (0-1359); URINE BILIRUBIN NEGATIVE (NEGATIVE); URINE COLOR YELLOW; URINE GLUCOSE (UA) NEGATIVE (NEGATIVE); URINE KETONE NEGATIVE (NEGATIVE); URINE LEUK ESTERASE 3+ (NEGATIVE); URINE NITRITE POSITIVE (NEGATIVE); URINE PROTEIN TRACE (NEGATIVE); URINE RBC 21 /uL (0-23.9); URINE WBC 1997 /uL (0-25.8)
[2024-04-16 11:54] LABS: ANISOCYTOSIS 1+; MACROCYTOSIS 2+; TEAR DROP CELLS 1+
[2024-04-16 14:28] VITALS: BP 139/85; PULSE 106; TEMP 98.2
== END 2024-04-16 16:53 | disposition home or self-care (01) | DRG 551 ==
LOC: JER 12:46 → JERBED 15:07 → UNDOADMOB 15:07 → INTOOBSV 15:07 → JERBED 16:35 → J7W 19:17 → OBSVTOIN 04-16 07:40
PROVIDERS: ADMIT Internal Medicine; ATTEND Internal Medicine
DX: M54.50 Low back pain, unspecified (principal); L89.103 Pressure ulcer of unspecified part of back, stage 3; I50.32 Chronic diastolic (congestive) heart failure; J96.11 Chronic respiratory failure with hypoxia; I11.0 Hypertensive heart disease with heart failure; M21.372 Foot drop, left foot; M21.371 Foot drop, right foot; N40.0 Benign prostatic hyperplasia without lower urinary tract symptoms; E78.5 Hyperlipidemia, unspecified; L89.152 Pressure ulcer of sacral region, stage 2; Z74.01 Bed confinement status; I48.0 Paroxysmal atrial fibrillation; K58.9 Irritable bowel syndrome, unspecified; F41.8 Other specified anxiety disorders; J44.9 Chronic obstructive pulmonary disease, unspecified
CPT/HCPCS: 36415; 80053; 81003; 82306; 82607; 85025; 93005; 93010; 97162-GP; 99285-25; G0378

== ENCOUNTER 2024-04-19 07:59 | Inpatient (IN) | payer OTHER, BC ==
[2024-04-19] MEDS ORDERED: METOPROLOL TARTRATE 5 MG/5 ML VIAL ONE ×2 (08:48→14:02)
[2024-04-19 09:08] LABS: EPI CELLS 1 /uL (0-25.1); HYALINE CASTS 1 /uL (0-3.1); PH,URINE 5.5 (5.0-8.0); URINE APPEARANCE CLOUDY; URINE BACTERIA >9,000 /uL (0-1359); URINE BILIRUBIN NEGATIVE (NEGATIVE); URINE COLOR YELLOW; URINE GLUCOSE (UA) NEGATIVE (NEGATIVE); URINE KETONE NEGATIVE (NEGATIVE); URINE LEUK ESTERASE 3+ (NEGATIVE); URINE NITRITE POSITIVE (NEGATIVE); URINE PROTEIN TRACE (NEGATIVE); URINE RBC 69 /uL (0-23.9); URINE WBC 3897 /uL (0-25.8)
[2024-04-19] MEDS: METOPROLOL TARTRATE 5 MG/5 ML VIAL IVPUSH ONE (09:12)
[2024-04-19 09:18] LABS: ACTIVATED PTT 35.2 SECONDS (25.2-36.5); INR 1.27 (0.83-1.09); PROTHROMBIN TIME (PATIENT) 14.3 SEC (9.7-13.0)
[2024-04-19 09:24] LABS: CHLORIDE 112 mmol/L (98-107); SODIUM 139 mmol/L (136-145)
[2024-04-19 09:26] LABS: CALCIUM 8.3 mg/dL (8.5-10.1)
[2024-04-19 09:27] LABS: ALBUMIN 3.1 g/dl (3.4-5.0); ANION GAP 7 mmol/L (4-13); BLOOD UREA NITROGEN 25.6 mg/dL (7-18); CO2 20 mmol/L (21-32); GLUCOSE,RANDOM 104 mg/dL (74-106); HEMATOCRIT 30.7 % (35.4-49); HEMOGLOBIN 10.2 GM/dL (11.7-16.9); MAGNESIUM 1.7 mg/dL (1.8-2.4); MCH 38.7 pg (25.7-33.7); MCHC 33.3 g/dl (32.0-35.9); MEAN CELL VOLUME 116.1 fl (80-96); MEAN PLT VOLUME 10.5 fl (7.5-11.1); PLATELET COUNT 208 10^3/uL (134-434); RBC 2.65 M/mm3 (4.00-5.60); RDW 19.2 % (11.9-15.9); WHITE BLOOD COUNT 7.4 K/mm3 (4.0-10.0)
[2024-04-19 09:30] LABS: CREATININE 1.2 mg/dL (0.55-1.3)
[2024-04-19 09:32] LABS: ALK PHOS 79 U/L (45-117); BILIRUBIN,TOTAL 0.6 mg/dL (0.2-1); TOT PROT 6.8 g/dl (6.4-8.2)
[2024-04-19 09:33] LABS: SGOT/AST 137 U/L (15-37); SGPT/ALT 24 U/L (13-61)
[2024-04-19] MEDS ORDERED: CEFTRIAXONE 1 GM/50 ML BAG ONE (10:15)
[2024-04-19] MEDS: CEFTRIAXONE 1,000 MG in DEXTROSE 5%-WATER - 50 ML IVPB ONE (10:22)
[2024-04-19] MEDS ORDERED: metoPROLOL SUCCINATE 25 MG TAB.SR.24H (FP) PO ONE ×2 (10:48→11:59)
[2024-04-19] MEDS ORDERED: PATIENT'S OWN MEDICATION (NON-FORMULARY) (Oxycodone Hcl/Acetaminophen [Oxycodone-Acetamino PO PRN (11:17)
[2024-04-19 11:23] LABS: ANISOCYTOSIS 1+; MACROCYTOSIS 2+
[2024-04-19 11:53] LABS: POTASSIUM 4.4 mmol/L (3.5-5.1)
[2024-04-19 11:56] LABS: BLOOD UREA NITROGEN 24.7 mg/dL (7-18); CALCIUM 8.4 mg/dL (8.5-10.1)
[2024-04-19 11:59] LABS: CREATININE 1.1 mg/dL (0.55-1.3)
[2024-04-19] MEDS ORDERED: MAGNESIUM SULFATE IN WATER 2 GM/50 ML IVPB IVPB ONE (12:00)
[2024-04-19] MEDS ORDERED: FUROSEMIDE 40 MG/4 ML INJECTABLE VIAL ONE (12:00)
[2024-04-19] MEDS: FUROSEMIDE 40 MG/4 ML INJECTABLE VIAL IVPUSH ONE (12:09)
[2024-04-19] MEDS: metoPROLOL SUCCINATE 25 MG TAB.SR.24H (FP) PO ONE (12:09)
[2024-04-19] MEDS: MAGNESIUM SULF 50% (8.12 MEQ/2 ML-1 GM VIAL) IVPB ONE (12:09)
[2024-04-19] MEDS: PATIENT'S OWN MEDICATION (NON-FORMULARY) (Oxycodone Hcl/Acetaminophen [Oxycodone-Acetamino PO SCH (12:09)
[2024-04-19] MEDS: METOPROLOL TARTRATE 5 MG/5 ML VIAL IVPUSH PRN (14:28)
[2024-04-19] MEDS: MIDODRINE HCL 5 MG TABLET PO SCH (14:40)
[2024-04-19] MEDS ORDERED: GABAPENTIN 400 MG CAPSULE ONE (14:44)
[2024-04-19] MEDS: GABAPENTIN 400 MG CAPSULE PO SCH (15:16)
[2024-04-19] MEDS: MULTIVIT-MINERALS ORAL LIQUID PO SCH (15:16)
[2024-04-19] MEDS ORDERED: ACETAMINOPHEN 325 MG TABLET (FP) ONE (16:37)
[2024-04-19] MEDS ORDERED: oxyCODONE HCL 5 MG TABLET ONE (16:38)
[2024-04-19] MEDS: ACETAMINOPHEN 325 MG TABLET (FP) PO PRN (16:40)
[2024-04-19] MEDS: oxyCODONE HCL 5 MG TABLET PO PRN (16:40)
[2024-04-19] MEDS: URSODIOL 300 MG CAPSULE PO SCH (23:24)
[2024-04-19] MEDS: POLYETHYLENE GLYCOL (HEALTHYLAX) 3350 17 GM PACKET PO SCH (23:25)
[2024-04-19] MEDS: TAMSULOSIN HCL 0.4 MG CAP PO SCH (23:25)
[2024-04-19] MEDS: SENNOSIDES 8.6MG TABLET (FP) PO SCH (23:25)
[2024-04-19] MEDS: ASCORBIC ACID 500 MG TABLET (FP) PO SCH (23:25)
[2024-04-19] MEDS: DOCUSATE SODIUM 100 MG CAPSULE (FP) PO SCH (23:25)
[2024-04-19] MEDS: APIXABAN 2.5 MG TABLET PO SCH (23:25)
[2024-04-20 08:29] LABS: HEMATOCRIT 28.3 % (35.4-49); HEMOGLOBIN 9.3 GM/dL (11.7-16.9); MCH 37.9 pg (25.7-33.7); MEAN CELL VOLUME 114.9 fl (80-96); MEAN PLT VOLUME 10.6 fl (7.5-11.1); PLATELET COUNT 167 10^3/uL (134-434); RBC 2.46 M/mm3 (4.00-5.60); RDW 18.2 % (11.9-15.9); WHITE BLOOD COUNT 5.5 K/mm3 (4.0-10.0)
[2024-04-20 08:59] LABS: ALBUMIN 3.1 g/dl (3.4-5.0); BLOOD UREA NITROGEN 27.2 mg/dL (7-18); CALCIUM 8.3 mg/dL (8.5-10.1)
[2024-04-20 09:02] LABS: CREATININE 1.1 mg/dL (0.55-1.3)
[2024-04-20 09:04] LABS: BILIRUBIN,TOTAL 2.4 mg/dL (0.2-1); TOT PROT 5.7 g/dl (6.4-8.2)
[2024-04-20] MEDS: DIGOXIN 0.125 MG TABLET PO SCH (12:05)
[2024-04-20] MEDS: SILVER SULFADIAZINE 1% TOP CREAM 50 GM JAR TP SCH (12:11)
[2024-04-20] MEDS: METOPROLOL SUCCINATE 50 MG, METOPROLOL SUCCINATE 25 MG PO SCH (12:39)
[2024-04-20] MEDS: metoPROLOL SUCCINATE 25 MG TAB.SR.24H (FP) PO ONE (12:52)
[2024-04-20] MEDS: metoPROLOL SUCCINATE 25 MG TAB.SR.24H (FP) PO SCH (21:06)
[2024-04-21 08:58] LABS: HEMATOCRIT 27.7 % (35.4-49); HEMOGLOBIN 9.1 GM/dL (11.7-16.9); MCH 38.1 pg (25.7-33.7); MCHC 32.9 g/dl (32.0-35.9); MEAN CELL VOLUME 115.8 fl (80-96); MEAN PLT VOLUME 10.5 fl (7.5-11.1); PLATELET COUNT 154 10^3/uL (134-434); WHITE BLOOD COUNT 5.9 K/mm3 (4.0-10.0)
[2024-04-21 09:07] LABS: POTASSIUM 4.3 mmol/L (3.5-5.1)
[2024-04-21 09:13] LABS: ALBUMIN 3.1 g/dl (3.4-5.0); BLOOD UREA NITROGEN 25.7 mg/dL (7-18); CALCIUM 8.7 mg/dL (8.5-10.1); MAGNESIUM 2.1 mg/dL (1.8-2.4)
[2024-04-21 09:17] LABS: CREATININE 0.9 mg/dL (0.55-1.3); PHOSPHOROUS 3.2 mg/dL (2.5-4.9)
[2024-04-21 09:18] LABS: BILIRUBIN,TOTAL 0.8 mg/dL (0.2-1); TOT PROT 5.7 g/dl (6.4-8.2)
[2024-04-22 08:21] LABS: HEMATOCRIT 28.4 % (35.4-49); HEMOGLOBIN 9.2 GM/dL (11.7-16.9); MCH 37.8 pg (25.7-33.7); MCHC 32.4 g/dl (32.0-35.9); MEAN CELL VOLUME 116.7 fl (80-96); MEAN PLT VOLUME 10.4 fl (7.5-11.1); PLATELET COUNT 162 10^3/uL (134-434); RBC 2.43 M/mm3 (4.00-5.60); RDW 19.3 % (11.9-15.9)
[2024-04-22 08:40] LABS: POTASSIUM 4.3 mmol/L (3.5-5.1)
[2024-04-22 08:42] LABS: BLOOD UREA NITROGEN 22.2 mg/dL (7-18); CALCIUM 8.6 mg/dL (8.5-10.1)
[2024-04-22 08:46] LABS: CREATININE 0.8 mg/dL (0.55-1.3)
[2024-04-22 08:47] LABS: BILIRUBIN,TOTAL 0.7 mg/dL (0.2-1); TOT PROT 5.5 g/dl (6.4-8.2)
[2024-04-22 09:36] VITALS: RESP 18
[2024-04-22] MEDS: FUROSEMIDE 40 MG TABLET (FP) PO SCH (10:55)
[2024-04-22 12:31] VITALS: BMI 21.5
[2024-04-22] MEDS: AMINO ACIDS/PROTEIN HYDROLYS 30 ML LIQUID.PKT PO SCH (14:47)
[2024-04-22] MEDS: MULTIVITAMINS (DAILY MVI) TABLET (FP) PO SCH (14:57)
[2024-04-22] MEDS: oxyCODONE HCL 5 MG TABLET PO ONE (17:15)
[2024-04-22 18:19] VITALS: BP 98/69; PULSE 74; TEMP 98.1
== END 2024-04-22 18:53 | disposition home or self-care (01) | DRG 291 ==
LOC: JER 07:59 → INTOOBSV 09:44 → JERBED 09:44 → UNDOADMOB 09:44 → JERBED 10:50 → OBSVTOIN 15:05 → J4W 21:37
PROVIDERS: ADMIT Internal Medicine; ATTEND Internal Medicine
DX: I11.0 Hypertensive heart disease with heart failure (principal); I50.43 Acute on chronic combined systolic (congestive) and diastolic (congestive) heart failure; L89.103 Pressure ulcer of unspecified part of back, stage 3; N39.0 Urinary tract infection, site not specified; J96.11 Chronic respiratory failure with hypoxia; I24.89 Other forms of acute ischemic heart disease; I48.0 Paroxysmal atrial fibrillation; J44.9 Chronic obstructive pulmonary disease, unspecified; E78.5 Hyperlipidemia, unspecified; R07.89 Other chest pain; Z99.81 Dependence on supplemental oxygen; N40.0 Benign prostatic hyperplasia without lower urinary tract symptoms; I35.0 Nonrheumatic aortic (valve) stenosis; M54.50 Low back pain, unspecified
CPT/HCPCS: 36415; 71045-TC-FY; 80048; 80053; 80162; 81003; 83735; 84100; 84436; 84443; 84484; 85025; 85027; 85610; 85730; 87086; 87186; 93005; 93010; 93306-TC; 99285-25; G0378

== ENCOUNTER 2024-05-26 14:07 | Inpatient (IN) | payer OTHER, BC ==
[2024-05-26] MEDS ORDERED: METOPROLOL TARTRATE 5 MG/5 ML VIAL ONE ×2 (14:39→14:56)
[2024-05-26] MEDS: METOPROLOL TARTRATE 5 MG/5 ML VIAL IVPUSH ONE ×2 (14:42→14:58)
[2024-05-26 16:02] LABS: BASO % 0.2 % (0-2.0); EOS % 1.5 % (0-4.5); HEMATOCRIT 29.1 % (35.4-49); HEMOGLOBIN 9.3 GM/dL (11.7-16.9); MCHC 31.9 g/dl (32.0-35.9); MEAN CELL VOLUME 119.2 fl (80-96); MEAN PLT VOLUME 9.9 fl (7.5-11.1); MONO % 5.4 % (3.8-10.2); NEUT % 86.9 % (42.8-82.8); PLATELET COUNT 202 10^3/uL (134-434); RBC 2.44 M/mm3 (4.00-5.60); RDW 19.6 % (11.9-15.9); WHITE BLOOD COUNT 5.2 K/mm3 (4.0-10.0)
[2024-05-26 16:10] LABS: INR 1.57 (0.83-1.09); PROTHROMBIN TIME (PATIENT) 17.8 SEC (9.7-13.0)
[2024-05-26 16:13] LABS: ACTIVATED PTT 38.3 SECONDS (25.2-36.5)
[2024-05-26 16:20] LABS: POTASSIUM 3.9 mmol/L (3.5-5.1)
[2024-05-26 16:22] LABS: CALCIUM 7.8 mg/dL (8.5-10.1)
[2024-05-26 16:23] LABS: ALBUMIN 3.4 g/dl (3.4-5.0); BLOOD UREA NITROGEN 25.3 mg/dL (7-18); MAGNESIUM 1.1 mg/dL (1.8-2.4)
[2024-05-26 16:26] LABS: CREATININE 1.1 mg/dL (0.55-1.3); PHOSPHOROUS 2.2 mg/dL (2.5-4.9)
[2024-05-26 16:27] LABS: BILIRUBIN,TOTAL 0.5 mg/dL (0.2-1); TOT PROT 6.1 g/dl (6.4-8.2)
[2024-05-26 16:28] LABS: ANISOCYTOSIS 1+; MACROCYTOSIS 2+; OVALOCYTE 1+
[2024-05-26 16:31] LABS: N-TERMINAL BNP 3190.4 pg/ml (5-450)
[2024-05-26] MEDS ORDERED: MAGNESIUM SULFATE IN WATER 2 GM/50 ML IVPB IVPB ONE (17:44)
[2024-05-26] MEDS: MAGNESIUM SULFATE IN WATER 2 GM/50 ML IVPB IVPB ONE (17:50)
[2024-05-26 18:42] LABS: EPI CELLS 12 /uL (0-25.1); HYALINE CASTS 6 /uL (0-3.1); PH,URINE 5.5 (5.0-8.0); URINE APPEARANCE TURBID; URINE BACTERIA >9,000 /uL (0-1359); URINE BILIRUBIN NEGATIVE (NEGATIVE); URINE COLOR DK YELLOW; URINE GLUCOSE (UA) NEGATIVE (NEGATIVE); URINE KETONE TRACE (NEGATIVE); URINE LEUK ESTERASE 3+ (NEGATIVE); URINE NITRITE POSITIVE (NEGATIVE); URINE PROTEIN 2+ (NEGATIVE); URINE WBC 28290 /uL (0-25.8)
[2024-05-26 18:56] LABS: URINE RBC 587.5 /uL (0-23.9); YEAST FEW (NEGATIVE)
[2024-05-26] MEDS: PIPERACILLIN/TAZOB 4.5 GM 4.5 GM in DEXTROSE 5%-WATER 100 ML IVPB ONE (18:58)
[2024-05-26] MEDS: FUROSEMIDE 40 MG/4 ML INJECTABLE VIAL IVPUSH ONE (18:58)
[2024-05-26] MEDS ORDERED: CEFTRIAXONE 1 GM/50 ML BAG ONE (19:36)
[2024-05-26] MEDS ORDERED: APIXABAN 2.5 MG TABLET PO SCH (22:00)
[2024-05-27] MEDS: oxyCODONE HCL 5 MG TABLET PO PRN (03:41)
[2024-05-27] MEDS ORDERED: PANTOPRAZOLE 40 MG TABLET PO ONE (06:18)
[2024-05-27] MEDS ORDERED: GABAPENTIN 300 MG CAPSULE ONE (06:19)
[2024-05-27] MEDS: PANTOPRAZOLE 40 MG TABLET PO SCH (06:27)
[2024-05-27] MEDS: GABAPENTIN 300 MG CAPSULE PO SCH (06:27)
[2024-05-27 08:23] LABS: HEMATOCRIT 27.9 % (35.4-49); HEMOGLOBIN 9.1 GM/dL (11.7-16.9); MCH 38.5 pg (25.7-33.7); MCHC 32.5 g/dl (32.0-35.9); MEAN CELL VOLUME 118.5 fl (80-96); MEAN PLT VOLUME 9.9 fl (7.5-11.1); PLATELET COUNT 196 10^3/uL (134-434); RBC 2.35 M/mm3 (4.00-5.60); RDW 19.2 % (11.9-15.9); WHITE BLOOD COUNT 5.6 K/mm3 (4.0-10.0)
[2024-05-27] MEDS ORDERED: oxyCODONE HCL 5 MG TABLET ONE ×4 (09:11→17:06)
[2024-05-27] MEDS ORDERED: CEFTRIAXONE 1 GM/50 ML BAG ONE (09:12)
[2024-05-27] MEDS: MIDODRINE HCL 5 MG TABLET PO SCH (09:21)
[2024-05-27] MEDS: metoPROLOL SUCCINATE 25 MG TAB.SR.24H (FP) PO SCH (09:22)
[2024-05-27] MEDS: URSODIOL 300 MG CAPSULE PO SCH (09:23)
[2024-05-27] MEDS: MULTIVIT-MINERALS ORAL LIQUID PO SCH (09:23)
[2024-05-27] MEDS: POLYETHYLENE GLYCOL (HEALTHYLAX) 3350 17 GM PACKET PO SCH (09:23)
[2024-05-27] MEDS: TAMSULOSIN HCL 0.4 MG CAP PO SCH (09:23)
[2024-05-27] MEDS: APIXABAN 2.5 MG TABLET PO SCH (09:26)
[2024-05-27] MEDS: CEFTRIAXONE 1 G/50 ML PREMIX 50 ML IVPB SCH (09:29)
[2024-05-27 09:31] LABS: POTASSIUM 3.8 mmol/L (3.5-5.1)
[2024-05-27] MEDS: ASCORBIC ACID 500 MG TABLET (FP) PO SCH (09:32)
[2024-05-27] MEDS: ACETAMINOPHEN 325 MG TABLET (FP) PO SCH (09:33)
[2024-05-27 09:34] LABS: ALBUMIN 3.4 g/dl (3.4-5.0); CALCIUM 8.1 mg/dL (8.5-10.1)
[2024-05-27] MEDS: DIGOXIN 0.125 MG TABLET PO SCH (09:34)
[2024-05-27 09:35] LABS: BLOOD UREA NITROGEN 23.3 mg/dL (7-18); MAGNESIUM 1.8 mg/dL (1.8-2.4)
[2024-05-27 09:38] LABS: CREATININE 0.9 mg/dL (0.55-1.3); PHOSPHOROUS 3.2 mg/dL (2.5-4.9)
[2024-05-27 09:39] LABS: BILIRUBIN,TOTAL 0.6 mg/dL (0.2-1); TOT PROT 5.9 g/dl (6.4-8.2)
[2024-05-27] MEDS: ALPRAZolam 0.25 MG TABLET PO SCH (10:33)
[2024-05-27] MEDS: SILVER SULFADIAZINE 1% TOP CREAM 50 GM JAR TP SCH (19:30)
[2024-05-27] MEDS: SENNOSIDES 8.6MG TABLET (FP) PO SCH (22:18)
[2024-05-27] MEDS: DOCUSATE SODIUM 100 MG CAPSULE (FP) PO SCH (22:19)
[2024-05-28] MEDS ORDERED: CEFTRIAXONE 1 GM in DEXTROSE 5%-WATER - 50 ML IVPB SCH (13:15)
[2024-05-28 13:38] LABS: BASO % 0.3 % (0-2.0); EOS % 3.2 % (0-4.5); HEMATOCRIT 27.9 % (35.4-49); HEMOGLOBIN 9.1 GM/dL (11.7-16.9); LYMPH % 9.9 % (8-40); MCH 39.6 pg (25.7-33.7); MCHC 32.7 g/dl (32.0-35.9); MEAN CELL VOLUME 121.1 fl (80-96); MEAN PLT VOLUME 10.2 fl (7.5-11.1); NEUT % 80.6 % (42.8-82.8); PLATELET COUNT 183 10^3/uL (134-434); RDW 18.9 % (11.9-15.9); RETICULOCYTES 1.37 % (0.5-1.5); WHITE BLOOD COUNT 5.3 K/mm3 (4.0-10.0)
[2024-05-28 14:09] LABS: IRON SERUM 94 ug/dL (50-175); TOTAL IRON BINDING CAPACITY 257 ug/dL (250-450)
[2024-05-28 14:14] LABS: POTASSIUM 3.9 mmol/L (3.5-5.1)
[2024-05-28 14:15] VITALS: BMI 25.8
[2024-05-28 14:15] LABS: CALCIUM 8.2 mg/dL (8.5-10.1)
[2024-05-28 14:16] LABS: BLOOD UREA NITROGEN 20.6 mg/dL (7-18)
[2024-05-28] MEDS: CEFTRIAXONE 1 G/50 ML PREMIX 50 ML IVPB ONE (15:41)
[2024-05-28] MEDS: FLU VACCINE (FLULAVAL) PF 45 MCG/0.5 ML SYRINGE 2024-2025 IM ONE (18:59)
[2024-05-28] MEDS: PATIENT'S OWN MEDICATION (NON-FORMULARY) (Oxycodone Hcl/Acetaminophen [Oxycodone-Acetamino PO SCH (20:55)
[2024-05-29] MEDS ORDERED: METOPROLOL TARTRATE 25 MG TABLET (FP) PO PRN (08:59)
[2024-05-29] MEDS: metoPROLOL SUCCINATE 25 MG TAB.SR.24H (FP) PO SCH (10:12)
[2024-05-29] MEDS: CEFTRIAXONE 1 GM in DEXTROSE 5%-WATER - 50 ML IVPB SCH (10:19)
[2024-05-29 10:51] LABS: HEMATOCRIT 27.6 % (35.4-49); HEMOGLOBIN 8.9 GM/dL (11.7-16.9); MCH 38.8 pg (25.7-33.7); MCHC 32.2 g/dl (32.0-35.9); MEAN CELL VOLUME 120.4 fl (80-96); PLATELET COUNT 160 10^3/uL (134-434); RBC 2.29 M/mm3 (4.00-5.60); WHITE BLOOD COUNT 5.8 K/mm3 (4.0-10.0)
[2024-05-29 11:11] LABS: POTASSIUM 3.8 mmol/L (3.5-5.1)
[2024-05-29 11:13] LABS: ALBUMIN 3.1 g/dl (3.4-5.0); BLOOD UREA NITROGEN 23.6 mg/dL (7-18); CALCIUM 8.8 mg/dL (8.5-10.1)
[2024-05-29 11:17] LABS: BILIRUBIN,TOTAL 0.4 mg/dL (0.2-1); TOT PROT 5.5 g/dl (6.4-8.2)
[2024-05-30 08:30] LABS: BASO % 1.2 % (0-2.0); EOS % 7.3 % (0-4.5); HEMATOCRIT 24.7 % (35.4-49); HEMOGLOBIN 8.1 GM/dL (11.7-16.9); LYMPH % 20.8 % (8-40); MCH 39.3 pg (25.7-33.7); MCHC 32.7 g/dl (32.0-35.9); MEAN CELL VOLUME 120.1 fl (80-96); MEAN PLT VOLUME 10.2 fl (7.5-11.1); MONO % 5.6 % (3.8-10.2); NEUT % 65.1 % (42.8-82.8); PLATELET COUNT 179 10^3/uL (134-434); RBC 2.06 M/mm3 (4.00-5.60); WHITE BLOOD COUNT 6.7 K/mm3 (4.0-10.0)
[2024-05-30 08:45] LABS: POTASSIUM 4.3 mmol/L (3.5-5.1)
[2024-05-30 08:48] LABS: ALBUMIN 3.1 g/dl (3.4-5.0); BLOOD UREA NITROGEN 27.2 mg/dL (7-18); CALCIUM 8.6 mg/dL (8.5-10.1)
[2024-05-30 08:52] LABS: BILIRUBIN,TOTAL 0.3 mg/dL (0.2-1); CREATININE 0.9 mg/dL (0.55-1.3); TOT PROT 5.5 g/dl (6.4-8.2)
[2024-05-30 10:08] LABS: ANISOCYTOSIS 1+; MACROCYTOSIS 2+
[2024-05-30] MEDS: CYANOCOBALAMIN (VITAMIN B-12) 1000 MCG/1 ML VIAL IM ONE (10:45)
[2024-05-30] MEDS: CEFTRIAXONE 1 G/50 ML PREMIX 50 ML IVPB SCH (10:48)
[2024-05-30 12:10] VITALS: RESP 18
[2024-05-30 19:45] VITALS: BP 111/71; PULSE 101; TEMP 98.4
[2024-05-30] MEDS ORDERED: SENNOSIDES 8.8 MG/5 ML SYRUP PO SCH (22:00)
[2024-05-31] MEDS ORDERED: NITROFURANTOIN MONOHYD/M-CRYST 100 MG CAPSULE PO SCH (10:00)
[2024-06-01 13:08] LABS: METHYLMALONIC ACID- 345 nmol/L (0-378)
== END 2024-05-30 20:00 | disposition home or self-care (01) | DRG 308 ==
LOC: JER 14:07 → JERBED 17:33 → J4S 05-27 18:57
PROVIDERS: ADMIT Internal Medicine; ATTEND Internal Medicine
DX: I48.0 Paroxysmal atrial fibrillation (principal); L89.113 Pressure ulcer of right upper back, stage 3; F11.20 Opioid dependence, uncomplicated; N39.0 Urinary tract infection, site not specified; J96.11 Chronic respiratory failure with hypoxia; G82.20 Paraplegia, unspecified; I50.42 Chronic combined systolic (congestive) and diastolic (congestive) heart failure; R07.89 Other chest pain; I42.8 Other cardiomyopathies; E78.5 Hyperlipidemia, unspecified; Z79.01 Long term (current) use of anticoagulants; I11.0 Hypertensive heart disease with heart failure; Z99.81 Dependence on supplemental oxygen; I35.0 Nonrheumatic aortic (valve) stenosis; F32.A Depression, unspecified; F41.9 Anxiety disorder, unspecified; K59.09 Other constipation; D53.9 Nutritional anemia, unspecified; E53.8 Deficiency of other specified B group vitamins
CPT/HCPCS: 36415; 71045-TC-FY; 80048; 80053; 80162; 81003; 82607; 82728; 82746; 83090; 83540; 83550; 83735; 83880; 83921; 84100; 84443; 84484; 85025; 85027; 85045; 85610; 85730; 86850; 86900; 86901; 87086; 87186; 88300-TC; 93005; 93010; 99285-25

== ENCOUNTER 2024-07-19 11:36 | Inpatient (IN) | payer OTHER, BC ==
[2024-07-19] MEDS ORDERED: ACETAMINOPHEN INJECTION 100 ML ONE (12:51)
[2024-07-19] MEDS: LACTATED RINGERS SOLUTION 1000 ML INFUS.BAG IV ONE (13:07)
[2024-07-19] MEDS: ACETAMINOPHEN 1000 MG/100 ML BAG IVPB ONE (13:07)
[2024-07-19 13:23] LABS: BASO % 0.4 % (0-2.0); EOS % 2.6 % (0-4.5); HEMATOCRIT 33.5 % (35.4-49); HEMOGLOBIN 10.7 GM/dL (11.7-16.9); MCH 39.8 pg (25.7-33.7); MCHC 31.9 g/dl (32.0-35.9); MEAN CELL VOLUME 124.6 fl (80-96); PLATELET COUNT 192 10^3/uL (134-434); RBC 2.68 M/mm3 (4.00-5.60); RDW 20.1 % (11.9-15.9); WHITE BLOOD COUNT 8.4 K/mm3 (4.0-10.0)
[2024-07-19 13:34] LABS: INR 1.68 (0.83-1.09)
[2024-07-19 13:37] LABS: ACTIVATED PTT 38.9 SECONDS (25.2-36.5)
[2024-07-19 13:55] LABS: CHLORIDE 110 mmol/L (98-107); POTASSIUM 6.5 mmol/L (3.5-5.1); SODIUM 139 mmol/L (136-145)
[2024-07-19 13:57] LABS: ALBUMIN 3.6 g/dl (3.4-5.0); ANION GAP 7 mmol/L (4-13); BLOOD UREA NITROGEN 26.3 mg/dL (7-18); CALCIUM 9.1 mg/dL (8.5-10.1); CO2 22 mmol/L (21-32); MAGNESIUM 1.7 mg/dL (1.8-2.4)
[2024-07-19 13:58] LABS: GLUCOSE,RANDOM 125 mg/dL (74-106)
[2024-07-19 14:00] LABS: SGOT/AST 92 U/L (15-37); SGPT/ALT 26 U/L (13-61)
[2024-07-19 14:01] LABS: CREATININE 1.2 mg/dL (0.55-1.3)
[2024-07-19 14:02] LABS: BILIRUBIN,TOTAL 0.5 mg/dL (0.2-1); TOT PROT 6.8 g/dl (6.4-8.2)
[2024-07-19 14:03] LABS: ALK PHOS 89 U/L (45-117)
[2024-07-19 14:27] LABS: ANISOCYTOSIS 2+; MACROCYTOSIS 3+; OVALOCYTE 2+
[2024-07-19 15:44] LABS: EPI CELLS 0 /uL (0-25.1); HYALINE CASTS 0 /uL (0-3.1); PH,URINE 5.5 (5.0-8.0); URINE APPEARANCE CLOUDY; URINE BACTERIA 14 /uL (0-1359); URINE BILIRUBIN NEGATIVE (NEGATIVE); URINE COLOR YELLOW; URINE GLUCOSE (UA) NEGATIVE (NEGATIVE); URINE KETONE NEGATIVE (NEGATIVE); URINE LEUK ESTERASE 3+ (NEGATIVE); URINE NITRITE NEGATIVE (NEGATIVE); URINE PROTEIN 1+ (NEGATIVE); URINE RBC 18 /uL (0-23.9); URINE WBC 1633 /uL (0-25.8)
[2024-07-19 16:02] LABS: POTASSIUM 4.9 mmol/L (3.5-5.1)
[2024-07-19 16:03] LABS: CALCIUM 8.7 mg/dL (8.5-10.1)
[2024-07-19 16:04] LABS: BLOOD UREA NITROGEN 26.7 mg/dL (7-18)
[2024-07-19] MEDS ORDERED: ALPRAZolam 0.25 MG TABLET PO PRN (16:59)
[2024-07-19] MEDS ORDERED: SENNOSIDES 8.6MG TABLET (FP) PO PRN (16:59)
[2024-07-19] MEDS ORDERED: PATIENT'S OWN MEDICATION (NON-FORMULARY) (Oxycodone Hcl/Acetaminophen [Endocet 7.5-325 Mg PO PRN (16:59)
[2024-07-19] MEDS ORDERED: MAGNESIUM SULFATE IN WATER 2 GM/50 ML IVPB IVPB ONE (18:14)
[2024-07-19] MEDS: MAGNESIUM SULF 50% (8.12 MEQ/2 ML-1 GM VIAL) IVPB ONE (18:35)
[2024-07-19] MEDS: oxyCODONE HCL 5 MG TABLET PO PRN (21:48)
[2024-07-19] MEDS: APIXABAN 5 MG TABLET PO SCH (21:50)
[2024-07-19] MEDS: METOPROLOL TARTRATE 50 MG TABLET (FP) PO SCH (21:50)
[2024-07-19] MEDS: ACETAMINOPHEN 325 MG TABLET (FP) PO PRN (21:50)
[2024-07-20] MEDS: TAMSULOSIN HCL 0.4 MG CAP PO SCH (08:43)
[2024-07-20] MEDS: ASPIRIN 325 MG TABLET PO ONE (08:43)
[2024-07-20 08:54] LABS: POTASSIUM 4.1 mmol/L (3.5-5.1)
[2024-07-20 08:57] LABS: BLOOD UREA NITROGEN 25.5 mg/dL (7-18); CALCIUM 8.7 mg/dL (8.5-10.1); MAGNESIUM 1.9 mg/dL (1.8-2.4)
[2024-07-20 09:00] LABS: PHOSPHOROUS 3.7 mg/dL (2.5-4.9)
[2024-07-20 09:01] LABS: CREATININE 1.1 mg/dL (0.55-1.3)
[2024-07-20] MEDS: PANTOPRAZOLE 40 MG TABLET PO SCH (10:13)
[2024-07-20] MEDS: POLYETHYLENE GLYCOL (HEALTHYLAX) 3350 17 GM PACKET PO SCH (10:13)
[2024-07-20] MEDS: DIGOXIN 0.125 MG TABLET PO SCH (14:29)
[2024-07-21 04:36] VITALS: RESP 18
[2024-07-21 09:47] LABS: BASO % 1.3 % (0-2.0); EOS % 7.1 % (0-4.5); HEMOGLOBIN 8.5 GM/dL (11.7-16.9); LYMPH % 15.2 % (8-40); MCH 39.9 pg (25.7-33.7); MCHC 32.8 g/dl (32.0-35.9); MEAN CELL VOLUME 121.7 fl (80-96); MEAN PLT VOLUME 10.4 fl (7.5-11.1); MONO % 5.1 % (3.8-10.2); NEUT % 71.3 % (42.8-82.8); PLATELET COUNT 170 10^3/uL (134-434); RBC 2.14 M/mm3 (4.00-5.60); RDW 19.4 % (11.9-15.9)
[2024-07-21 10:09] LABS: POTASSIUM 4.2 mmol/L (3.5-5.1)
[2024-07-21 10:11] LABS: BLOOD UREA NITROGEN 26.9 mg/dL (7-18); CALCIUM 8.4 mg/dL (8.5-10.1)
[2024-07-21 10:14] LABS: CREATININE 1.1 mg/dL (0.55-1.3)
[2024-07-21] MEDS: BISACODYL 10 MG SUPP.RECT PR PRN (10:26)
[2024-07-21 14:43] VITALS: BP 101/58; PULSE 88; TEMP 97.2
[2024-07-21 16:13] VITALS: BMI 22.5
== END 2024-07-21 19:46 | disposition home or self-care (01) | DRG 308 ==
LOC: JER 11:36 → JERBED 15:37 → INTOOBSV 15:37 → UNDOADMOB 15:37 → JERBED 16:55 → J4S 20:13 → OBSVTOIN 07-20 16:20
PROVIDERS: ADMIT Internal Medicine; ATTEND Internal Medicine
DX: I48.91 Unspecified atrial fibrillation (principal); L89.113 Pressure ulcer of right upper back, stage 3; R53.2 Functional quadriplegia; J96.11 Chronic respiratory failure with hypoxia; I50.42 Chronic combined systolic (congestive) and diastolic (congestive) heart failure; R07.89 Other chest pain; I11.0 Hypertensive heart disease with heart failure; E78.5 Hyperlipidemia, unspecified; K21.9 Gastro-esophageal reflux disease without esophagitis; M54.9 Dorsalgia, unspecified; M25.512 Pain in left shoulder; M25.511 Pain in right shoulder; J44.9 Chronic obstructive pulmonary disease, unspecified
CPT/HCPCS: 36415; 71045-TC-FY; 80048; 80053; 81003; 83735; 84100; 84443; 84484; 85025; 85610; 85730; 87070; 87086; 87186; 87205; 93005; 93010; 99285-25; G0378; J0131

== ENCOUNTER 2024-08-18 12:31 | Inpatient (IN) | payer OTHER, BC ==
[2024-08-18 13:47] LABS: BASO % 0.8 % (0-2.0); EOS % 4.2 % (0-4.5); HEMATOCRIT 28.3 % (35.4-49); MCH 38.3 pg (25.7-33.7); MCHC 31.9 g/dl (32.0-35.9); MEAN CELL VOLUME 120.2 fl (80-96); MONO % 5.8 % (3.8-10.2); NEUT % 80.2 % (42.8-82.8); PLATELET COUNT 193 10^3/uL (134-434); RBC 2.35 M/mm3 (4.00-5.60); RDW 19.6 % (11.9-15.9); WHITE BLOOD COUNT 4.9 K/mm3 (4.0-10.0)
[2024-08-18 13:52] LABS: INR 1.73 (0.83-1.09); PROTHROMBIN TIME (PATIENT) 19.6 SEC (9.7-13.0)
[2024-08-18 13:55] LABS: ACTIVATED PTT 36.2 SECONDS (25.2-36.5)
[2024-08-18 14:06] LABS: POTASSIUM 4.4 mmol/L (3.5-5.1)
[2024-08-18] MEDS: SODIUM CHLORIDE 0.9% 500 ML INFUS.BAG IV ONE (14:07)
[2024-08-18 14:08] LABS: CALCIUM 8.5 mg/dL (8.5-10.1)
[2024-08-18 14:09] LABS: ALBUMIN 3.4 g/dl (3.4-5.0); BLOOD UREA NITROGEN 22.2 mg/dL (7-18); MAGNESIUM 1.2 mg/dL (1.8-2.4)
[2024-08-18 14:12] LABS: PHOSPHOROUS 2.4 mg/dL (2.5-4.9)
[2024-08-18 14:13] LABS: BILIRUBIN,TOTAL 0.6 mg/dL (0.2-1); CREATININE 1.1 mg/dL (0.55-1.3)
[2024-08-18 14:14] LABS: TOT PROT 6.1 g/dl (6.4-8.2)
[2024-08-18] MEDS ORDERED: MAGNESIUM SULFATE IN WATER 2 GM/50 ML IVPB IVPB ONE (14:25)
[2024-08-18 14:45] LABS: ANISOCYTOSIS 1+; MACROCYTOSIS 3+
[2024-08-18] MEDS: MAGNESIUM SULF 50% (8.12 MEQ/2 ML-1 GM VIAL) IVPB ONE (14:52)
[2024-08-18 17:25] LABS: EPI CELLS 1 /uL (0-25.1); HYALINE CASTS 0 /uL (0-3.1); URINE APPEARANCE CLOUDY; URINE BACTERIA >9,000 /uL (0-1359); URINE BILIRUBIN NEGATIVE (NEGATIVE); URINE COLOR YELLOW; URINE GLUCOSE (UA) NEGATIVE (NEGATIVE); URINE KETONE TRACE (NEGATIVE); URINE LEUK ESTERASE 3+ (NEGATIVE); URINE NITRITE NEGATIVE (NEGATIVE); URINE PROTEIN 1+ (NEGATIVE); URINE RBC 28 /uL (0-23.9); URINE WBC 1121 /uL (0-25.8)
[2024-08-18] MEDS: LACTATED RINGERS SOLUTION 1,000 ML/1,000 ML INFUS.BAG IV SCH (17:41)
[2024-08-18] MEDS: METOPROLOL TARTRATE 50 MG TABLET (FP) PO SCH (21:40)
[2024-08-18] MEDS: APIXABAN 5 MG TABLET PO SCH (21:40)
[2024-08-19] MEDS: oxyCODONE HCL 5 MG TABLET PO ONE (02:07)
[2024-08-19] MEDS: ACETAMINOPHEN 325 MG TABLET (FP) PO ONE (02:09)
[2024-08-19] MEDS: ALPRAZolam 0.25 MG TABLET PO PRN (04:10)
[2024-08-19] MEDS ORDERED: PIPERACILLIN/TAZOB 3.375 GM 3.375 GM in DEXTROSE 5%-WATER - 50 ML IVPB SCH (06:45)
[2024-08-19 08:13] LABS: HEMATOCRIT 26.7 % (35.4-49); HEMOGLOBIN 8.4 GM/dL (11.7-16.9); MCH 38.7 pg (25.7-33.7); MCHC 31.6 g/dl (32.0-35.9); MEAN CELL VOLUME 122.5 fl (80-96); MEAN PLT VOLUME 10.2 fl (7.5-11.1); PLATELET COUNT 186 10^3/uL (134-434); RBC 2.18 M/mm3 (4.00-5.60); RDW 19.8 % (11.9-15.9); WHITE BLOOD COUNT 6.4 K/mm3 (4.0-10.0)
[2024-08-19 08:40] LABS: POTASSIUM 4.2 mmol/L (3.5-5.1)
[2024-08-19 08:47] LABS: ALBUMIN 3.3 g/dl (3.4-5.0)
[2024-08-19 08:48] LABS: BLOOD UREA NITROGEN 21.6 mg/dL (7-18); CALCIUM 8.5 mg/dL (8.5-10.1); MAGNESIUM 1.7 mg/dL (1.8-2.4)
[2024-08-19 08:51] LABS: CREATININE 1.1 mg/dL (0.55-1.3); PHOSPHOROUS 2.9 mg/dL (2.5-4.9)
[2024-08-19 08:52] LABS: TOT PROT 5.8 g/dl (6.4-8.2)
[2024-08-19] MEDS: DIGOXIN 0.125 MG TABLET PO SCH (10:22)
[2024-08-19] MEDS: CLOPIDOGREL BISULFATE 75 MG TABLET (FP) PO SCH (10:22)
[2024-08-19] MEDS: PANTOPRAZOLE 40 MG TABLET PO SCH (10:24)
[2024-08-19] MEDS: PIPERACILLIN/TAZOB 3.375 GM 50 ML IVPB SCH (10:25)
[2024-08-19] MEDS: METOPROLOL TARTRATE 50 MG TABLET (FP) PO SCH (10:25)
[2024-08-19] MEDS ORDERED: PATIENT'S OWN MEDICATION (NON-FORMULARY) (Oxycodone Hcl/Acetaminophen [Endocet 7.5-325 Mg PO PRN ×2 (10:30→13:32)
[2024-08-19] MEDS: oxyCODONE HCL 5 MG TABLET PO PRN (14:08)
[2024-08-20] MEDS: ACETAMINOPHEN 325 MG TABLET (FP) PO PRN (10:00)
[2024-08-20 11:46] LABS: HEMATOCRIT 24.3 % (35.4-49); HEMOGLOBIN 7.8 GM/dL (11.7-16.9); MCH 38.8 pg (25.7-33.7); MCHC 32.2 g/dl (32.0-35.9); MEAN CELL VOLUME 120.6 fl (80-96); MEAN PLT VOLUME 10.1 fl (7.5-11.1); PLATELET COUNT 181 10^3/uL (134-434); RBC 2.02 M/mm3 (4.00-5.60); RDW 18.8 % (11.9-15.9); WHITE BLOOD COUNT 5.8 K/mm3 (4.0-10.0)
[2024-08-20 12:13] LABS: ALBUMIN 2.9 g/dl (3.4-5.0); BLOOD UREA NITROGEN 19.6 mg/dL (7-18); CALCIUM 8.2 mg/dL (8.5-10.1)
[2024-08-20 12:14] LABS: MAGNESIUM 1.5 mg/dL (1.8-2.4)
[2024-08-20 12:17] LABS: CREATININE 1.2 mg/dL (0.55-1.3); PHOSPHOROUS 2.3 mg/dL (2.5-4.9)
[2024-08-20 12:18] LABS: BILIRUBIN,TOTAL 0.8 mg/dL (0.2-1); TOT PROT 5.4 g/dl (6.4-8.2)
[2024-08-20] MEDS: CEFTRIAXONE 1 G/50 ML PREMIX 50 ML IVPB SCH (19:44)
[2024-08-20] MEDS: MAGNESIUM SULFATE IN WATER 2 GM/50 ML IVPB IVPB ONE (21:08)
[2024-08-20] MEDS: NAPH,MB-DB/K PH,MBDB POWDER PACKET PO ONE (21:08)
[2024-08-21 08:09] LABS: HEMATOCRIT 26.5 % (35.4-49); HEMOGLOBIN 8.5 GM/dL (11.7-16.9); MCH 38.3 pg (25.7-33.7); MCHC 32.1 g/dl (32.0-35.9); MEAN CELL VOLUME 119.3 fl (80-96); MEAN PLT VOLUME 10.2 fl (7.5-11.1); PLATELET COUNT 195 10^3/uL (134-434); RBC 2.22 M/mm3 (4.00-5.60); RDW 19.2 % (11.9-15.9); WHITE BLOOD COUNT 6.7 K/mm3 (4.0-10.0)
[2024-08-21 08:26] LABS: POTASSIUM 4.2 mmol/L (3.5-5.1)
[2024-08-21 08:28] LABS: CALCIUM 8.4 mg/dL (8.5-10.1)
[2024-08-21 08:29] LABS: ALBUMIN 3.2 g/dl (3.4-5.0); BLOOD UREA NITROGEN 17.6 mg/dL (7-18); MAGNESIUM 2.4 mg/dL (1.8-2.4)
[2024-08-21 08:32] LABS: CREATININE 1.2 mg/dL (0.55-1.3); PHOSPHOROUS 3.1 mg/dL (2.5-4.9)
[2024-08-21 08:33] LABS: BILIRUBIN,TOTAL 0.5 mg/dL (0.2-1)
[2024-08-21 08:45] VITALS: BMI 22.6
[2024-08-21] MEDS: MULTIVITAMINS (DAILY MVI) TABLET (FP) PO SCH (09:22)
[2024-08-21] MEDS: ASCORBIC ACID 500 MG TABLET (FP) PO SCH (09:22)
[2024-08-21] MEDS: ZINC SULFATE 220 MG CAPSULE (FP) PO SCH (11:58)
[2024-08-21 23:17] VITALS: RESP 17
[2024-08-22 06:37] VITALS: BP 124/75; PULSE 77; TEMP 98.4
== END 2024-08-22 09:20 | disposition home health service (06) | DRG 689 ==
LOC: JER 12:31 → JERBED 15:27 → J4W 18:38 → OBSVTOIN 08-19 09:36
PROVIDERS: ADMIT Internal Medicine; ATTEND Student in an Organized Health Care Education/Training Program
DX: N39.0 Urinary tract infection, site not specified (principal); E43 Unspecified severe protein-calorie malnutrition; I50.22 Chronic systolic (congestive) heart failure; G82.20 Paraplegia, unspecified; J96.11 Chronic respiratory failure with hypoxia; I48.91 Unspecified atrial fibrillation; L89.102 Pressure ulcer of unspecified part of back, stage 2; L89.151 Pressure ulcer of sacral region, stage 1; E83.42 Hypomagnesemia; E83.39 Other disorders of phosphorus metabolism; E86.0 Dehydration; B96.20 Unspecified Escherichia coli [E. coli] as the cause of diseases classified elsewhere; Z68.22 Body mass index [BMI] 22.0-22.9, adult
CPT/HCPCS: 0241U-QW; 36415; 71045-TC-FY; 80053; 80162; 81003; 83735; 84100; 84484; 85025; 85027; 85610; 85730; 87086; 87186; 93005; 93010; 99291; G0378

== ENCOUNTER 2024-10-19 16:17 | Inpatient (IN) | payer OTHER, BC ==
[2024-10-19 17:16] VITALS: BMI 23.5
[2024-10-19] MEDS: ACETAMINOPHEN 1000 MG/100 ML BAG IVPB ONE (17:25)
[2024-10-19] MEDS: SODIUM CHLORIDE 0.9% 500 ML INFUS.BAG IV ONE (17:25)
[2024-10-19 18:14] LABS: POTASSIUM 5.3 mmol/L (3.5-5.1)
[2024-10-19 18:18] LABS: CALCIUM 8.9 mg/dL (8.5-10.1)
[2024-10-19 18:19] LABS: ALBUMIN 3.1 g/dl (3.4-5.0); BLOOD UREA NITROGEN 35.8 mg/dL (7-18); MAGNESIUM 2.1 mg/dL (1.8-2.4); VENOUS BASE EXCESS 6.8 mmol/L (-2-2); VENOUS O2 SATURATION 75.1 % (70-80); VENOUS PCO2 51.2 mmHg (38-52); VENOUS PH 7.417 (7.310-7.410)
[2024-10-19 18:22] LABS: CREATININE 0.7 mg/dL (0.55-1.3); PHOSPHOROUS 2.3 mg/dL (2.5-4.9)
[2024-10-19 18:23] LABS: BILIRUBIN,TOTAL 0.6 mg/dL (0.2-1); TOT PROT 6.2 g/dl (6.4-8.2)
[2024-10-19] MEDS ORDERED: ACETAMINOPHEN INJECTION 100 ML ONE (18:25)
[2024-10-19 18:31] LABS: HEMATOCRIT 31.5 % (40.1-51.0); HEMOGLOBIN 9.5 g/dL (13.7-17.5); MCHC 30.2 g/dl (32.3-36.5); MEAN CELL VOLUME 112.9 fl (79.0-92.2); MEAN PLT VOLUME 11.2 fl (9.4-12.4); PLATELET COUNT # 253 x10^3/uL (163-337); RDW 26.3 % (12.6-16.6)
[2024-10-19] MEDS ORDERED: PIPERACILLIN/TAZOB 4.5 GM 4.5 GM/100 ML BAG IVPB ONE (19:51)
[2024-10-19] MEDS ORDERED: VANCOMYCIN 1 GM PREMIX (F) 1 GM/200 ML BAG ONE (19:52)
[2024-10-19] MEDS: PIPERACILLIN/TAZOB 4.5 GM 4.5 GM in DEXTROSE 5%-WATER 100 ML IVPB ONE (20:07)
[2024-10-19] MEDS: VANCOMYCIN 1,000 MG in DEXTROSE 5%-WATER - 250 ML IVPB ONE (20:32)
[2024-10-19] MEDS ORDERED: HEPARIN NA (PORCINE) 5,000 UNITS/ML 1ML VIAL SQ SCH (22:00)
[2024-10-19] MEDS ORDERED: PATIENT'S OWN MEDICATION (NON-FORMULARY) (Oxycodone Hcl/Acetaminophen [Endocet 7.5-325 Mg PO PRN (22:05)
[2024-10-19] MEDS ORDERED: APIXABAN 5 MG TABLET ONE (22:20)
[2024-10-19] MEDS ORDERED: METOPROLOL TARTRATE 25 MG TABLET (FP) ONE (22:20)
[2024-10-19] MEDS ORDERED: METOPROLOL TARTRATE 50 MG TABLET (FP) ONE (22:21)
[2024-10-19] MEDS: APIXABAN 5 MG TABLET PO SCH (22:25)
[2024-10-19] MEDS: METOPROLOL TARTRATE 25 MG TABLET (FP) PO SCH (22:31)
[2024-10-20 03:04] LABS: EPI CELLS 1 /uL (0-25.1); HYALINE CASTS 3 /uL (0-3.1); URINE APPEARANCE CLEAR; URINE BACTERIA 5 /uL (0-1359); URINE BILIRUBIN NEGATIVE (NEGATIVE); URINE COLOR YELLOW; URINE GLUCOSE (UA) NEGATIVE (NEGATIVE); URINE KETONE NEGATIVE (NEGATIVE); URINE LEUK ESTERASE 2+ (NEGATIVE); URINE NITRITE NEGATIVE (NEGATIVE); URINE PROTEIN NEGATIVE (NEGATIVE); URINE RBC 75 /uL (0-23.9); URINE WBC 581 /uL (0-25.8)
[2024-10-20] MEDS ORDERED: ACETAMINOPHEN 325 MG TABLET (FP) ONE (04:11)
[2024-10-20] MEDS ORDERED: oxyCODONE HCL 5 MG TABLET ONE (04:13)
[2024-10-20] MEDS: oxyCODONE HCL 5 MG TABLET PO PRN (04:19)
[2024-10-20] MEDS: ACETAMINOPHEN 325 MG TABLET (FP) PO PRN (04:20)
[2024-10-20 07:05] LABS: POTASSIUM 4.4 mmol/L (3.5-5.1)
[2024-10-20 07:09] LABS: CALCIUM 8.7 mg/dL (8.5-10.1)
[2024-10-20 07:10] LABS: ALBUMIN 2.9 g/dl (3.4-5.0); BLOOD UREA NITROGEN 31.4 mg/dL (7-18); MAGNESIUM 1.8 mg/dL (1.8-2.4)
[2024-10-20 07:12] LABS: CREATININE 0.8 mg/dL (0.55-1.3); PHOSPHOROUS 2.6 mg/dL (2.5-4.9)
[2024-10-20 07:14] LABS: BILIRUBIN,TOTAL 0.9 mg/dL (0.2-1); TOT PROT 5.7 g/dl (6.4-8.2)
[2024-10-20 07:28] LABS: HEMATOCRIT 28.7 % (40.1-51.0); HEMOGLOBIN 8.7 g/dL (13.7-17.5); MCHC 30.3 g/dl (32.3-36.5); MEAN CELL VOLUME 113.4 fl (79.0-92.2); MEAN PLT VOLUME 11.2 fl (9.4-12.4); PLATELET COUNT # 239 x10^3/uL (163-337); RDW 26.5 % (12.6-16.6)
[2024-10-20] MEDS ORDERED: HEPARIN NA (PORCINE) 5,000 UNITS/ML 1ML VIAL SQ SCH (09:00)
[2024-10-20] MEDS ORDERED: DIGOXIN 0.125 MG TABLET ONE (09:24)
[2024-10-20] MEDS ORDERED: METOPROLOL TARTRATE 25 MG TABLET (FP) ONE (09:24)
[2024-10-20] MEDS ORDERED: METOPROLOL TARTRATE 50 MG TABLET (FP) ONE (09:24)
[2024-10-20] MEDS ORDERED: APIXABAN 5 MG TABLET ONE (09:24)
[2024-10-20] MEDS ORDERED: ZINC SULFATE 220 MG CAPSULE (FP) ONE (09:24)
[2024-10-20] MEDS ORDERED: ASCORBIC ACID 500 MG TABLET (FP) ONE (09:25)
[2024-10-20] MEDS ORDERED: CLOPIDOGREL BISULFATE 75 MG TABLET (FP) ONE (09:25)
[2024-10-20] MEDS: ASCORBIC ACID 500 MG TABLET (FP) PO SCH (09:27)
[2024-10-20] MEDS: DIGOXIN 0.125 MG TABLET PO SCH (09:27)
[2024-10-20] MEDS: ZINC SULFATE 220 MG CAPSULE (FP) PO SCH (09:28)
[2024-10-20] MEDS: CLOPIDOGREL BISULFATE 75 MG TABLET (FP) PO SCH (09:28)
[2024-10-20] MEDS ORDERED: PANTOPRAZOLE 40 MG TABLET PO ONE (09:31)
[2024-10-20] MEDS: PANTOPRAZOLE 40 MG TABLET PO SCH (09:32)
[2024-10-20] MEDS ORDERED: ALPRAZolam 0.25 MG TABLET ONE (11:37)
[2024-10-20] MEDS: COLLAGENASE CLOSTRIDIUM HIST. 30 GRAMS TUBE TP SCH (11:38)
[2024-10-20] MEDS: ALPRAZolam 0.25 MG TABLET PO PRN (11:38)
[2024-10-21] MEDS: ALPRAZolam 0.25 MG TABLET PO PRN (04:33)
[2024-10-21 09:52] LABS: ABSOLUTE IMMATURE GRANULOCYTES 0.06 x10^3/uL (0.0-0.031); BASOPHILS # 0.04 x10^3/uL (0.01-0.08); EOSINOPHIL % 3.8 % (0.8-7.0); EOSINOPHILS # 0.31 x10^3/uL (0.04-0.54); HEMATOCRIT 25.4 % (40.1-51.0); HEMOGLOBIN 7.7 g/dL (13.7-17.5); MCHC 30.3 g/dl (32.3-36.5); MEAN CELL VOLUME 113.4 fl (79.0-92.2); MEAN PLT VOLUME 11.1 fl (9.4-12.4); MONOCYTE % 6.1 % (5.3-12.2); PLATELET COUNT # 223 x10^3/uL (163-337); RDW 26.8 % (12.6-16.6)
[2024-10-21 10:13] LABS: POTASSIUM 4.2 mmol/L (3.5-5.1)
[2024-10-21 10:21] LABS: ALBUMIN 2.7 g/dl (3.4-5.0)
[2024-10-21 10:22] LABS: CALCIUM 8.5 mg/dL (8.5-10.1)
[2024-10-21 10:25] LABS: CREATININE 0.8 mg/dL (0.55-1.3)
[2024-10-21 10:26] LABS: BILIRUBIN,TOTAL 0.9 mg/dL (0.2-1)
[2024-10-21 10:27] LABS: TOT PROT 5.1 g/dl (6.4-8.2)
[2024-10-21 13:46] VITALS: BP 96/66; PULSE 92; RESP 17; TEMP 97.5
[2024-10-22] MEDS ORDERED: AMINO ACIDS/PROTEIN HYDROLYS 30 ML LIQUID.PKT PO SCH (08:00)
[2024-10-22] MEDS ORDERED: MULTIVITAMINS THER W-MINERALS COMBO TABLET (FP) PO SCH (10:00)
== END 2024-10-21 14:19 | disposition home health service (06) | DRG 204 ==
LOC: JER 16:17 → JERBED 20:15 → J6S 10-20 12:57
PROVIDERS: ADMIT Internal Medicine
DX: R06.02 Shortness of breath (principal); L89.154 Pressure ulcer of sacral region, stage 4; G82.20 Paraplegia, unspecified; I13.0 Hypertensive heart and chronic kidney disease with heart failure and stage 1 through stage 4 chronic kidney disease, or unspecified chronic kidney disease; I50.22 Chronic systolic (congestive) heart failure; N39.0 Urinary tract infection, site not specified; N18.30 Chronic kidney disease, stage 3 unspecified; I48.0 Paroxysmal atrial fibrillation; E78.5 Hyperlipidemia, unspecified; J44.9 Chronic obstructive pulmonary disease, unspecified; K58.9 Irritable bowel syndrome, unspecified; F41.8 Other specified anxiety disorders; N40.0 Benign prostatic hyperplasia without lower urinary tract symptoms; N31.9 Neuromuscular dysfunction of bladder, unspecified; M41.86 Other forms of scoliosis, lumbar region; F03.90 Unspecified dementia, unspecified severity, without behavioral disturbance, psychotic disturbance, mood disturbance, and anxiety; T40.2X5A Adverse effect of other opioids, initial encounter; K59.03 Drug induced constipation; K21.9 Gastro-esophageal reflux disease without esophagitis; M54.50 Low back pain, unspecified; K44.9 Diaphragmatic hernia without obstruction or gangrene; Z99.81 Dependence on supplemental oxygen
CPT/HCPCS: 0241U-QW; 36415; 71045-TC-FY; 71250-TC; 80053; 80162; 81003; 82803; 83605; 83735; 83880; 84100; 84484; 85025; 85027; 87040; 87077; 87086; 93005; 93010; 97161-GP; 99285-25; J0131

== ENCOUNTER 2024-12-28 10:23 | Inpatient (IN) | payer OTHER, BC ==
[2024-12-28 10:55] VITALS: BMI 21.4
[2024-12-28] MEDS ORDERED: oxyCODONE HCL 5 MG TABLET ONE (11:08)
[2024-12-28] MEDS: oxyCODONE HCL 5 MG TABLET PO ONE (11:11)
[2024-12-28 12:12] LABS: EPI CELLS 1 /uL (0-25.1); HYALINE CASTS 1 /uL (0-3.1); PH,URINE 5.5 (5.0-8.0); URINE APPEARANCE TURBID; URINE BACTERIA 71 /uL (0-1359); URINE BILIRUBIN NEGATIVE (NEGATIVE); URINE COLOR YELLOW; URINE GLUCOSE (UA) NEGATIVE (NEGATIVE); URINE KETONE TRACE (NEGATIVE); URINE LEUK ESTERASE 3+ (NEGATIVE); URINE NITRITE NEGATIVE (NEGATIVE); URINE PROTEIN 2+ (NEGATIVE); URINE UROBILINOGEN 0.2 mg/dL (0.2-1.0); URINE WBC 7693 /uL (0-25.8)
[2024-12-28] MEDS: CEFTRIAXONE 1 GM in DEXTROSE 5%-WATER - 100 ML IVPB ONE (12:59)
[2024-12-28] MEDS ORDERED: cefTRIAXone SODIUM 1 GM VIAL ONE (13:01)
[2024-12-28] MEDS ORDERED: ACETAMINOPHEN INJECTION 100 ML ONE (13:06)
[2024-12-28 13:14] LABS: ABSOLUTE IMMATURE GRANULOCYTES 0.06 x10^3/uL (0.0-0.031); BASOPHILS # 0.06 x10^3/uL (0.01-0.08); EOSINOPHIL % 5.5 % (0.8-7.0); EOSINOPHILS # 0.71 x10^3/uL (0.04-0.54); HEMATOCRIT 36.7 % (40.1-51.0); HEMOGLOBIN 11.4 g/dL (13.7-17.5); MCHC 31.1 g/dl (32.3-36.5); MEAN CELL VOLUME 117.6 fl (79.0-92.2); MEAN PLT VOLUME 11.4 fl (9.4-12.4); MONOCYTE # 0.72 x10^3/uL (0.30-0.82); MONOCYTE % 5.6 % (5.3-12.2); PLATELET COUNT 275 x10^3/uL (163-337); RDW 17.3 % (12.6-16.6)
[2024-12-28] MEDS: ACETAMINOPHEN 1000 MG/100 ML BAG IVPB ONE (13:28)
[2024-12-28 13:43] LABS: POTASSIUM 4.3 mmol/L (3.5-5.1)
[2024-12-28 13:45] LABS: CALCIUM 8.1 mg/dL (8.5-10.1)
[2024-12-28 13:46] LABS: ALBUMIN 3.7 g/dl (3.4-5.0); BLOOD UREA NITROGEN 26.1 mg/dL (7-18)
[2024-12-28 13:49] LABS: CREATININE 0.9 mg/dL (0.55-1.3)
[2024-12-28 13:51] LABS: BILIRUBIN,TOTAL 0.4 mg/dL (0.2-1)
[2024-12-28] MEDS ORDERED: PATIENT'S OWN MEDICATION (NON-FORMULARY) (Oxycodone Hcl/Acetaminophen [Endocet 7.5-325 Mg PO PRN (15:12)
[2024-12-28] MEDS: LACTATED RINGERS SOLUTION 1,000 ML/1,000 ML INFUS.BAG IV STA (16:43)
[2024-12-28] MEDS: PIPERACILLIN/TAZOB 3.375 GM 3.375 GM in DEXTROSE 5%-WATER - 50 ML IVPB SCH (18:41)
[2024-12-28] MEDS: ASCORBIC ACID 500 MG TABLET (FP) PO SCH (21:05)
[2024-12-28] MEDS: APIXABAN 5 MG TABLET PO SCH (21:05)
[2024-12-28] MEDS: METOPROLOL TARTRATE 25 MG TABLET (FP) PO SCH (21:06)
[2024-12-29] MEDS: ACETAMINOPHEN 325 MG TABLET (FP) PO PRN (00:31)
[2024-12-29] MEDS: oxyCODONE HCL 5 MG TABLET PO PRN (04:49)
[2024-12-29] MEDS ORDERED: CEFTRIAXONE 1 G/50 ML PREMIX 50 ML IVPB SCH (10:00)
[2024-12-29] MEDS: ZINC SULFATE 220 MG CAPSULE (FP) PO SCH (10:20)
[2024-12-29] MEDS: CLOPIDOGREL BISULFATE 75 MG TABLET (FP) PO SCH (10:21)
[2024-12-29] MEDS: PANTOPRAZOLE 40 MG TABLET PO SCH (10:43)
[2024-12-29] MEDS: COLLAGENASE CLOSTRIDIUM HIST. 30 GRAMS TUBE TP SCH (12:14)
[2024-12-29] MEDS: VITAMIN B COMP W-C 1 EA TABLET (NEPHRO-VITE) PO SCH (15:07)
[2024-12-29] MEDS: PIPERACILLIN/TAZOB 3.375 GM 3.375 GM in DEXTROSE 5%-WATER - 50 ML IVPB SCH ×2 (17:15→18:29)
[2024-12-30 09:54] LABS: BASOPHILS # 0.05 x10^3/uL (0.01-0.08); MONOCYTE # 0.46 x10^3/uL (0.30-0.82)
[2024-12-30 09:55] LABS: ABSOLUTE IMMATURE GRANULOCYTES 0.05 x10^3/uL (0.0-0.031); EOSINOPHIL % 10.5 % (0.8-7.0); EOSINOPHILS # 0.77 x10^3/uL (0.04-0.54); HEMOGLOBIN 10.1 g/dL (13.7-17.5); MCHC 30.6 g/dl (32.3-36.5); MEAN CELL VOLUME 120.9 fl (79.0-92.2); MONOCYTE % 6.3 % (5.3-12.2); RDW 17.2 % (12.6-16.6)
[2024-12-30 10:17] LABS: POTASSIUM 3.6 mmol/L (3.5-5.1)
[2024-12-30 10:26] LABS: CALCIUM 8.8 mg/dL (8.5-10.1)
[2024-12-30 10:57] LABS: CREATININE 0.9 mg/dL (0.55-1.3)
[2024-12-30] MEDS: ALPRAZolam 0.25 MG TABLET PO PRN (14:14)
[2024-12-30] MEDS: DIGOXIN 0.125 MG TABLET PO SCH (14:21)
[2024-12-31 10:51] LABS: HEMATOCRIT 30.4 % (40.1-51.0); HEMOGLOBIN 9.4 g/dL (13.7-17.5); MCHC 30.9 g/dl (32.3-36.5); MEAN CELL VOLUME 118.3 fl (79.0-92.2); MEAN PLT VOLUME 11.2 fl (9.4-12.4); PLATELET COUNT 221 x10^3/uL (163-337); RDW 17.4 % (12.6-16.6)
[2024-12-31 11:19] LABS: POTASSIUM 4.2 mmol/L (3.5-5.1)
[2024-12-31 11:22] LABS: CALCIUM 9.2 mg/dL (8.5-10.1)
[2024-12-31 11:23] LABS: BLOOD UREA NITROGEN 21.4 mg/dL (7-18); MAGNESIUM 2.1 mg/dL (1.8-2.4)
[2024-12-31 11:25] LABS: PHOSPHOROUS 3.2 mg/dL (2.5-4.9)
[2024-12-31 11:27] LABS: BILIRUBIN,TOTAL 0.4 mg/dL (0.2-1); TOT PROT 5.9 g/dl (6.4-8.2)
[2024-12-31 16:14] VITALS: TEMP 98.1
[2024-12-31 17:30] VITALS: RESP 18
[2024-12-31 20:27] VITALS: BP 111/67; PULSE 77
== END 2025-01-01 02:20 | disposition home or self-care (01) | DRG 871 ==
LOC: JER 10:23 → JERBED 12:27 → J5S 15:39
PROVIDERS: ADMIT Internal Medicine; ATTEND Internal Medicine
DX: A41.9 Sepsis, unspecified organism (principal); E43 Unspecified severe protein-calorie malnutrition; L89.133 Pressure ulcer of right lower back, stage 3; N39.0 Urinary tract infection, site not specified; G82.20 Paraplegia, unspecified; I13.0 Hypertensive heart and chronic kidney disease with heart failure and stage 1 through stage 4 chronic kidney disease, or unspecified chronic kidney disease; J96.10 Chronic respiratory failure, unspecified whether with hypoxia or hypercapnia; I50.22 Chronic systolic (congestive) heart failure; L89.152 Pressure ulcer of sacral region, stage 2; L89.322 Pressure ulcer of left buttock, stage 2; L89.312 Pressure ulcer of right buttock, stage 2; F03.90 Unspecified dementia, unspecified severity, without behavioral disturbance, psychotic disturbance, mood disturbance, and anxiety; N18.30 Chronic kidney disease, stage 3 unspecified; Z68.22 Body mass index [BMI] 22.0-22.9, adult; E78.5 Hyperlipidemia, unspecified
CPT/HCPCS: 36415; 74176-TC; 80048; 80053; 80162; 81003; 82607; 82746; 83735; 84100; 85025; 85027; 87070; 87077; 87086; 87186; 87205; 93005; 93010; 97162-GP; 99285-25

== ENCOUNTER 2025-01-10 02:55 | Inpatient (IN) | payer OTHER, BC ==
[2025-01-10 03:22] VITALS: BMI 22.4
[2025-01-10] MEDS ORDERED: ACETAMINOPHEN INJECTION 100 ML ONE (03:41)
[2025-01-10] MEDS ORDERED: oxyCODONE HCL 5 MG TABLET ONE (04:09)
[2025-01-10] MEDS: oxyCODONE HCL 5 MG TABLET PO ONE (04:16)
[2025-01-10] MEDS: ACETAMINOPHEN 1000 MG/100 ML BAG IVPB ONE (04:16)
[2025-01-10 04:33] LABS: ABSOLUTE IMMATURE GRANULOCYTES 0.07 x10^3/uL (0.0-0.031); BASOPHILS # 0.05 x10^3/uL (0.01-0.08); EOSINOPHIL % 6.3 % (0.8-7.0); EOSINOPHILS # 0.86 x10^3/uL (0.04-0.54); HEMATOCRIT 34.3 % (40.1-51.0); HEMOGLOBIN 10.8 g/dL (13.7-17.5); MCHC 31.5 g/dl (32.3-36.5); MEAN CELL VOLUME 117.1 fl (79.0-92.2); MEAN PLT VOLUME 11.6 fl (9.4-12.4); MONOCYTE % 5.9 % (5.3-12.2); PLATELET COUNT 229 x10^3/uL (163-337); RDW 17.5 % (12.6-16.6)
[2025-01-10 05:10] LABS: POTASSIUM 5.1 mmol/L (3.5-5.1)
[2025-01-10 05:12] LABS: ALBUMIN 3.6 g/dl (3.4-5.0); BLOOD UREA NITROGEN 25.1 mg/dL (7-18); CALCIUM 9.1 mg/dL (8.5-10.1)
[2025-01-10 05:16] LABS: CREATININE 0.9 mg/dL (0.55-1.3)
[2025-01-10 05:17] LABS: BILIRUBIN,TOTAL 0.5 mg/dL (0.2-1); TOT PROT 7.1 g/dl (6.4-8.2)
[2025-01-10] MEDS ORDERED: CEFTRIAXONE 1 GM/50 ML BAG ONE (10:01)
[2025-01-10] MEDS: SULFAMETHOXAZOLE/TRIMETHOPRIM 800MG/160MG D.S. TABLET PO ONE (10:01)
[2025-01-10] MEDS: CEFTRIAXONE 1,000 MG in DEXTROSE 5%-WATER - 50 ML IVPB ONE (10:23)
[2025-01-10] MEDS ORDERED: DOCUSATE SODIUM 100 MG CAPSULE (FP) PO PRN (10:50)
[2025-01-10] MEDS ORDERED: ACETAMINOPHEN 500 MG TABLET (FP) PO PRN ×2 (11:00→17:30)
[2025-01-10] MEDS ORDERED: NALOXONE HCL 0.4 MG/ML VIAL IVPUSH PRN (11:01)
[2025-01-10] MEDS: DIGOXIN 0.125 MG TABLET PO SCH (12:41)
[2025-01-10] MEDS: SODIUM CHLORIDE 1,000 ML IV SCH (12:41)
[2025-01-10] MEDS: POLYETHYLENE GLYCOL (HEALTHYLAX) 3350 17 GM PACKET PO SCH (12:41)
[2025-01-10 15:18] LABS: HEMATOCRIT 30.1 % (40.1-51.0); HEMOGLOBIN 9.5 g/dL (13.7-17.5); MCHC 31.6 g/dl (32.3-36.5); MEAN CELL VOLUME 116.7 fl (79.0-92.2); PLATELET COUNT 196 x10^3/uL (163-337); RDW 17.2 % (12.6-16.6)
[2025-01-10] MEDS: LACTATED RINGERS SOLUTION 1000 ML INFUS.BAG IV ONE (17:46)
[2025-01-10] MEDS: VANCOMYCIN HCL 125 MG CAPSULE (RESTRICTED TO ID ONLY) PO SCH (18:04)
[2025-01-10 18:53] LABS: EPI CELLS 1 /uL (0-25.1); HYALINE CASTS 1 /uL (0-3.1); PH,URINE 5.5 (5.0-8.0); URINE APPEARANCE TURBID; URINE BACTERIA 10 /uL (0-1359); URINE BILIRUBIN NEGATIVE (NEGATIVE); URINE COLOR YELLOW; URINE GLUCOSE (UA) NEGATIVE (NEGATIVE); URINE KETONE NEGATIVE (NEGATIVE); URINE LEUK ESTERASE 3+ (NEGATIVE); URINE NITRITE NEGATIVE (NEGATIVE); URINE PROTEIN 2+ (NEGATIVE); URINE UROBILINOGEN 0.2 mg/dL (0.2-1.0); URINE WBC 4331 /uL (0-25.8)
[2025-01-10 19:06] LABS: URINE RBC 736.1 /uL (0-23.9)
[2025-01-10 19:07] LABS: YEAST FEW (NEGATIVE)
[2025-01-10] MEDS: SENNOSIDES 8.6MG TABLET (FP) PO SCH (21:29)
[2025-01-10] MEDS: oxyCODONE HCL 5 MG TABLET PO PRN (21:30)
[2025-01-10] MEDS: METOPROLOL TARTRATE 25 MG TABLET (FP) PO SCH (21:30)
[2025-01-10] MEDS: ASCORBIC ACID 500 MG TABLET (FP) PO SCH (21:30)
[2025-01-10] MEDS: APIXABAN 5 MG TABLET PO SCH (21:30)
[2025-01-11] MEDS ORDERED: ENOXAPARIN NA (PORCINE) 40 MG/0.4 ML DISP.SYRIN SQ SCH (10:00)
[2025-01-11] MEDS: CEFTRIAXONE 1 GM in DEXTROSE 5%-WATER - 50 ML IVPB SCH (10:40)
[2025-01-11] MEDS: ZINC SULFATE 220 MG CAPSULE (FP) PO SCH (10:43)
[2025-01-11] MEDS: CLOPIDOGREL BISULFATE 75 MG TABLET (FP) PO SCH (10:43)
[2025-01-11] MEDS: TAMSULOSIN HCL 0.4 MG CAP PO SCH (10:43)
[2025-01-11] MEDS: PANTOPRAZOLE 40 MG TABLET PO SCH (10:44)
[2025-01-11] MEDS: ACETAMINOPHEN 1000 MG/100 ML BAG IVPB SCH (11:17)
[2025-01-11] MEDS: VANCOMYCIN HCL 125 MG CAPSULE (RESTRICTED TO ID ONLY) PO SCH (19:49)
[2025-01-11] MEDS: ALPRAZolam 0.25 MG TABLET PO PRN (20:25)
[2025-01-12 05:55] VITALS: RESP 18
[2025-01-12 08:45] LABS: ABSOLUTE IMMATURE GRANULOCYTES 0.03 x10^3/uL (0.0-0.031); BASOPHILS # 0.05 x10^3/uL (0.01-0.08); EOSINOPHIL % 15.2 % (0.8-7.0); EOSINOPHILS # 1.07 x10^3/uL (0.04-0.54); HEMATOCRIT 30.7 % (40.1-51.0); HEMOGLOBIN 9.5 g/dL (13.7-17.5); MCHC 30.9 g/dl (32.3-36.5); MEAN CELL VOLUME 115.8 fl (79.0-92.2); MEAN PLT VOLUME 11.1 fl (9.4-12.4); MONOCYTE # 0.44 x10^3/uL (0.30-0.82); MONOCYTE % 6.3 % (5.3-12.2); PLATELET COUNT 184 x10^3/uL (163-337); RDW 17.1 % (12.6-16.6)
[2025-01-12] MEDS: BISACODYL 10 MG SUPP.RECT PR ONE ×2 (08:45→11:30)
[2025-01-12 09:15] LABS: CREATININE 0.8 mg/dL (0.55-1.3)
[2025-01-12 09:16] LABS: BILIRUBIN,TOTAL 0.4 mg/dL (0.2-1)
[2025-01-12 09:17] LABS: TOT PROT 5.5 g/dl (6.4-8.2)
[2025-01-12 14:38] VITALS: PULSE 60
[2025-01-12 14:51] VITALS: BP 105/86; TEMP 98
== END 2025-01-12 17:08 | disposition home or self-care (01) | DRG 393 ==
LOC: JER 02:55 → JERBED 03:36 → J6S 11:40 → OBSVTOIN 13:12
PROVIDERS: ADMIT Internal Medicine; ATTEND Internal Medicine
DX: K62.6 Ulcer of anus and rectum (principal); L89.104 Pressure ulcer of unspecified part of back, stage 4; L89.153 Pressure ulcer of sacral region, stage 3; G82.20 Paraplegia, unspecified; I13.0 Hypertensive heart and chronic kidney disease with heart failure and stage 1 through stage 4 chronic kidney disease, or unspecified chronic kidney disease; I50.22 Chronic systolic (congestive) heart failure; E44.0 Moderate protein-calorie malnutrition; I48.20 Chronic atrial fibrillation, unspecified; J96.11 Chronic respiratory failure with hypoxia; K62.89 Other specified diseases of anus and rectum; N18.30 Chronic kidney disease, stage 3 unspecified; F03.90 Unspecified dementia, unspecified severity, without behavioral disturbance, psychotic disturbance, mood disturbance, and anxiety; N40.0 Benign prostatic hyperplasia without lower urinary tract symptoms; R62.7 Adult failure to thrive; Z68.22 Body mass index [BMI] 22.0-22.9, adult
CPT/HCPCS: 0241U-QW; 36415; 72131-TC; 74176-TC; 80053; 81003; 83735; 84100; 84132; 85025; 85027; 85651; 86140; 87040; 87086; 93005; 93010; 99285-25; G0378

== ENCOUNTER 2025-01-20 12:39 | Emergency (ER) | payer OTHER, BC ==
[2025-01-20 13:03] VITALS: RESP 18; TEMP 99; BMI 19.6
[2025-01-20] MEDS: SODIUM CHLORIDE 0.9% 500 ML INFUS.BAG IV ONE (15:21)
[2025-01-20 18:06] LABS: EPI CELLS 0 /uL (0-25.1); HYALINE CASTS 0 /uL (0-3.1); PH,URINE 5.5 (5.0-8.0); URINE APPEARANCE CLOUDY; URINE BACTERIA 70 /uL (0-1359); URINE BILIRUBIN NEGATIVE (NEGATIVE); URINE COLOR YELLOW; URINE GLUCOSE (UA) NEGATIVE (NEGATIVE); URINE KETONE NEGATIVE (NEGATIVE); URINE LEUK ESTERASE 3+ (NEGATIVE); URINE NITRITE NEGATIVE (NEGATIVE); URINE PROTEIN 1+ (NEGATIVE); URINE RBC 212 /uL (0-23.9); URINE UROBILINOGEN 0.2 mg/dL (0.2-1.0); URINE WBC 1147 /uL (0-25.8)
[2025-01-20 18:42] VITALS: BP 95/58; PULSE 85
== END 2025-01-20 19:14 | disposition home or self-care (01) ==
LOC: JER 12:39
DX: M54.50 Low back pain, unspecified (principal); G89.29 Other chronic pain; L89.102 Pressure ulcer of unspecified part of back, stage 2
CPT/HCPCS: 81003; 87077; 87086; 99283-25

== ENCOUNTER 2025-01-27 18:22 | Emergency (ER) | payer OTHER, BC ==
[2025-01-27 19:11] VITALS: BMI 24.4
[2025-01-27] MEDS ORDERED: ACETAMINOPHEN 325 MG TABLET (FP) ONE (19:48)
[2025-01-27] MEDS: ACETAMINOPHEN 325 MG TABLET (FP) PO ONE (19:58)
[2025-01-28 01:06] VITALS: BP 110/72; PULSE 96; RESP 17; TEMP 97.9
[2025-01-28] MEDS ORDERED: ACETAMINOPHEN 325 MG TABLET (FP) ONE (04:27)
[2025-01-28] MEDS: ACETAMINOPHEN 325 MG TABLET (FP) PO ONE (04:28)
== END 2025-01-28 05:04 | disposition home or self-care (01) ==
LOC: JER 18:22
DX: R23.2 Flushing (principal); L89.152 Pressure ulcer of sacral region, stage 2; R06.00 Dyspnea, unspecified; M54.6 Pain in thoracic spine; G89.29 Other chronic pain
CPT/HCPCS: 99283-25

== ENCOUNTER 2025-04-09 02:05 | Emergency (ER) | payer OTHER, BC ==
[2025-04-09 02:21] VITALS: BMI 17.7
[2025-04-09] MEDS: LIDOCAINE 5% TOPICAL PATCH TP ONE (06:29)
[2025-04-09] MEDS ORDERED: LIDOCAINE 5% TOPICAL PATCH ONE (06:32)
[2025-04-09 11:37] VITALS: BP 108/74; PULSE 97; RESP 16; TEMP 97.9
[2025-04-09] MEDS ORDERED: LIDOCAINE PATCH REMOVAL MC SCH (22:00)
== END 2025-04-09 12:37 | disposition home or self-care (01) ==
LOC: JER 02:05
DX: M54.50 Low back pain, unspecified (principal)
CPT/HCPCS: 99283-25

== ENCOUNTER 2025-04-21 00:47 | Emergency (ER) | payer OTHER, BC ==
[2025-04-21 01:11] VITALS: BP 109/59; PULSE 89; RESP 18; TEMP 97.6; BMI 52.0
[2025-04-21] MEDS ORDERED: LIDOCAINE 5% TOPICAL PATCH ONE (01:56)
[2025-04-21] MEDS: LIDOCAINE 5% TOPICAL PATCH TP ONE (02:00)
[2025-04-21] MEDS ORDERED: LIDOCAINE PATCH REMOVAL MC SCH (22:00)
== END 2025-04-21 03:54 | disposition home or self-care (01) ==
LOC: JER 00:47
DX: M54.50 Low back pain, unspecified (principal); G89.29 Other chronic pain
CPT/HCPCS: 99283-25

== ENCOUNTER 2025-05-04 11:03 | Inpatient (IN) | payer OTHER, BC ==
[2025-05-04] MEDS: METOPROLOL TARTRATE 5 MG/5 ML VIAL IVPUSH ONE (12:46)
[2025-05-04] MEDS: LACTATED RINGERS SOLUTION 1000 ML INFUS.BAG IV STA (12:46)
[2025-05-04] MEDS: METOPROLOL TARTRATE 25 MG TABLET (FP) PO ONE (12:50)
[2025-05-04 12:51] LABS: ABSOLUTE IMMATURE GRANULOCYTES 0.07 x10^3/uL (0.0-0.031); BASOPHILS # 0.03 x10^3/uL (0.01-0.08); EOSINOPHIL % 7.1 % (0.8-7.0); EOSINOPHILS # 0.60 x10^3/uL (0.04-0.54); MCHC 30.5 g/dl (32.3-36.5); MEAN CELL VOLUME 116.0 fl (79.0-92.2); MEAN PLT VOLUME 11.4 fl (9.4-12.4); MONOCYTE # 0.50 x10^3/uL (0.30-0.82); MONOCYTE % 5.9 % (5.3-12.2); RDW 20.9 % (12.6-16.6)
[2025-05-04] MEDS ORDERED: METOPROLOL TARTRATE 5 MG/5 ML VIAL ONE (12:51)
[2025-05-04 12:52] LABS: BG HCT 41.0 % (35.4-49); VENOUS BASE EXCESS 2.5 mmol/L (-2-2); VENOUS O2 SATURATION 73.6 % (70-80); VENOUS PCO2 44.2 mmHg (38-52); VENOUS PH 7.413 (7.310-7.410)
[2025-05-04 12:58] LABS: INR 1.14 (0.83-1.09); PROTHROMBIN TIME (PATIENT) 12.4 SEC (9.7-13.0)
[2025-05-04 13:01] LABS: ACTIVATED PTT 32.3 SECONDS (25.2-36.5)
[2025-05-04 13:04] LABS: URINE APPEARANCE Slightly Cloudy; URINE BILIRUBIN Negative (NEGATIVE); URINE COLOR Yellow; URINE GLUCOSE (UA) Negative (NEGATIVE); URINE KETONE Negative (NEGATIVE); URINE LEUK ESTERASE 3+ (NEGATIVE); URINE NITRITE Negative (NEGATIVE); URINE PROTEIN 2+ (NEGATIVE); URINE UROBILINOGEN 1.0 mg/dL (0.2-1.0)
[2025-05-04 13:11] LABS: GLUCOSE,RANDOM 101.0 mg/dL (74-106); TOT PROT 6.5 g/dl (6.4-8.2)
[2025-05-04 13:12] LABS: CO2 25.0 mmol/L (21-32)
[2025-05-04 13:16] LABS: SGPT/ALT 72.0 U/L (0-55)
[2025-05-04 13:17] LABS: CREATININE 0.84 mg/dL (0.55-1.3); SGOT/AST 51.0 U/L (5-34)
[2025-05-04 13:31] LABS: ALK PHOS 128.0 U/L (40-150)
[2025-05-04] MEDS ORDERED: dilTIAZem HCL 50 MG/10 ML - 10 ML VIAL IVPUSH PRN (17:44)
[2025-05-04] MEDS: PIPERACILLIN/TAZOB 3.375 GM 3.375 GM in DEXTROSE 5%-WATER - 50 ML IVPB SCH ×2 (17:57→20:18)
[2025-05-04] MEDS ORDERED: PIPERACILLIN/TAZOB 3.375 GM 3.375 GM/50 ML BAG IVPB ONE (17:57)
[2025-05-04] MEDS: VANCOMYCIN/WATER FOR INJ (PEG) 1 GM/200 ML BAG IVPB SCH ×2 (20:18→20:20)
[2025-05-04] MEDS: VANCOMYCIN 1 GM PREMIX (F) 1 GM/200 ML BAG IVPB SCH (20:18)
[2025-05-04] MEDS: SENNOSIDES 8.6MG TABLET (FP) PO SCH (21:53)
[2025-05-04] MEDS: POLYETHYLENE GLYCOL (HEALTHYLAX) 3350 17 GM PACKET PO SCH (21:54)
[2025-05-04] MEDS: APIXABAN 2.5 MG TABLET PO SCH (21:54)
[2025-05-05] MEDS: PIPERACILLIN/TAZOB 2.25 GM 2.25 GM in DEXTROSE 5%-WATER - 50 ML IVPB SCH ×2 (00:30→15:46)
[2025-05-05] MEDS: TAMSULOSIN HCL 0.4 MG CAP PO SCH (08:50)
[2025-05-05] MEDS ORDERED: ENOXAPARIN NA (PORCINE) 40 MG/0.4 ML DISP.SYRIN SQ SCH (10:00)
[2025-05-05] MEDS: PANTOPRAZOLE 40 MG TABLET PO SCH (10:23)
[2025-05-05] MEDS: DIGOXIN 0.125 MG TABLET PO SCH (10:24)
[2025-05-05 10:34] LABS: ABSOLUTE IMMATURE GRANULOCYTES 0.07 x10^3/uL (0.0-0.031); BASOPHILS # 0.05 x10^3/uL (0.01-0.08); EOSINOPHIL % 5.2 % (0.8-7.0); EOSINOPHILS # 0.56 x10^3/uL (0.04-0.54); MCHC 31.5 g/dl (32.3-36.5); MEAN CELL VOLUME 116.6 fl (79.0-92.2); MEAN PLT VOLUME 11.9 fl (9.4-12.4); MONOCYTE # 0.62 x10^3/uL (0.30-0.82); MONOCYTE % 5.7 % (5.3-12.2); RDW 21.3 % (12.6-16.6)
[2025-05-05 11:34] LABS: GLUCOSE,RANDOM 116.0 mg/dL (74-106); TOT PROT 6.3 g/dl (6.4-8.2)
[2025-05-05 11:35] LABS: CO2 22.0 mmol/L (21-32)
[2025-05-05 11:39] LABS: SGOT/AST 43.0 U/L (5-34); SGPT/ALT 58.0 U/L (0-55)
[2025-05-05 11:40] LABS: CREATININE 0.9 mg/dL (0.55-1.3)
[2025-05-05 11:55] LABS: ALK PHOS 106.0 U/L (40-150)
[2025-05-05] MEDS: VANCOMYCIN 1 GM PREMIX (F) 1 GM/200 ML BAG IVPB SCH (15:47)
[2025-05-05] MEDS: PIPERACILLIN/TAZOB 4.5 GM 4.5 GM in DEXTROSE 5%-WATER 100 ML IVPB SCH (18:22)
[2025-05-06] MEDS: [UNRECOGNIZED DRUG - OTHER] TP SCH (14:36)
[2025-05-06] MEDS: NEOMYCIN/POLYMYXIN/BACITRACIN (TRIPLE ANTIBIOTIC) 28 GM OINTMENT TP SCH (14:36)
[2025-05-06] MEDS: MULTIVITAMINS (DAILY MVI) TABLET (FP) PO SCH (16:05)
[2025-05-06] MEDS: ZINC SULFATE 220 MG CAPSULE (FP) PO SCH (16:05)
[2025-05-06] MEDS: AMINO ACIDS/PROTEIN HYDROLYS 30 ML LIQUID.PKT PO SCH (17:10)
[2025-05-06] MEDS: ASCORBIC ACID 500 MG TABLET (FP) PO SCH (21:43)
[2025-05-06] MEDS: MELATONIN 5 MG TABLETS PO PRN (21:43)
[2025-05-06] MEDS: SODIUM CHLORIDE 500 ML IV STA (22:07)
[2025-05-06] MEDS: METOPROLOL TARTRATE 50 MG TABLET (FP) PO SCH (23:02)
[2025-05-06] MEDS: METOPROLOL TARTRATE 25 MG TABLET (FP) PO ONE (23:23)
[2025-05-07 08:36] LABS: ABSOLUTE IMMATURE GRANULOCYTES 0.05 x10^3/uL (0.0-0.031); BASOPHILS # 0.04 x10^3/uL (0.01-0.08); EOSINOPHIL % 8.4 % (0.8-7.0); EOSINOPHILS # 0.79 x10^3/uL (0.04-0.54); MCHC 30.3 g/dl (32.3-36.5); MEAN CELL VOLUME 117.6 fl (79.0-92.2); MEAN PLT VOLUME 11.5 fl (9.4-12.4); MONOCYTE # 0.56 x10^3/uL (0.30-0.82); MONOCYTE % 6.0 % (5.3-12.2); RDW 21.2 % (12.6-16.6)
[2025-05-07 08:45] LABS: GLUCOSE,RANDOM 91.0 mg/dL (74-106)
[2025-05-07 08:47] LABS: CO2 25.0 mmol/L (21-32)
[2025-05-07 08:51] LABS: CREATININE 1.02 mg/dL (0.55-1.3)
[2025-05-08 10:47] LABS: ABSOLUTE IMMATURE GRANULOCYTES 0.06 x10^3/uL (0.0-0.031); BASOPHILS # 0.03 x10^3/uL (0.01-0.08); EOSINOPHIL % 4.8 % (0.8-7.0); EOSINOPHILS # 0.42 x10^3/uL (0.04-0.54); MCHC 30.6 g/dl (32.3-36.5); MEAN CELL VOLUME 118.1 fl (79.0-92.2); MEAN PLT VOLUME 11.5 fl (9.4-12.4); MONOCYTE # 0.35 x10^3/uL (0.30-0.82); MONOCYTE % 4.0 % (5.3-12.2); RDW 21.0 % (12.6-16.6)
[2025-05-08 11:11] LABS: GLUCOSE,RANDOM 147.0 mg/dL (74-106); TOT PROT 5.8 g/dl (6.4-8.2)
[2025-05-08 11:12] LABS: CO2 22.0 mmol/L (21-32)
[2025-05-08 11:16] LABS: SGOT/AST 18.0 U/L (5-34); SGPT/ALT 26.0 U/L (0-55)
[2025-05-08 11:17] LABS: CREATININE 1.02 mg/dL (0.55-1.3)
[2025-05-08 12:12] LABS: ALK PHOS 80.0 U/L (40-150)
[2025-05-08] MEDS: MAGNESIUM HYDROX 2400MG/30ML ORAL SUSPENSION 30 ML CUP PO ONE (12:49)
[2025-05-09 08:32] LABS: ABSOLUTE IMMATURE GRANULOCYTES 0.05 x10^3/uL (0.0-0.031); BASOPHILS # 0.04 x10^3/uL (0.01-0.08); EOSINOPHIL % 6.0 % (0.8-7.0); EOSINOPHILS # 0.57 x10^3/uL (0.04-0.54); MCHC 29.5 g/dl (32.3-36.5); MEAN CELL VOLUME 121.0 fl (79.0-92.2); MEAN PLT VOLUME 11.6 fl (9.4-12.4); MONOCYTE # 0.66 x10^3/uL (0.30-0.82); MONOCYTE % 6.9 % (5.3-12.2); RDW 21.2 % (12.6-16.6)
[2025-05-09 09:11] LABS: GLUCOSE,RANDOM 85.0 mg/dL (74-106)
[2025-05-09 09:12] LABS: CO2 24.0 mmol/L (21-32); TOT PROT 6.1 g/dl (6.4-8.2)
[2025-05-09 09:14] LABS: ALK PHOS 75.0 U/L (40-150)
[2025-05-09 09:16] LABS: SGPT/ALT 28.0 U/L (0-55)
[2025-05-09 09:17] LABS: CREATININE 1.03 mg/dL (0.55-1.3); SGOT/AST 19.0 U/L (5-34)
[2025-05-10 07:56] LABS: ABSOLUTE IMMATURE GRANULOCYTES 0.05 x10^3/uL (0.0-0.031); BASOPHILS # 0.03 x10^3/uL (0.01-0.08); EOSINOPHIL % 4.2 % (0.8-7.0); EOSINOPHILS # 0.39 x10^3/uL (0.04-0.54); MCHC 30.5 g/dl (32.3-36.5); MEAN CELL VOLUME 116.8 fl (79.0-92.2); MEAN PLT VOLUME 11.4 fl (9.4-12.4); MONOCYTE # 0.49 x10^3/uL (0.30-0.82); MONOCYTE % 5.2 % (5.3-12.2); RDW 21.5 % (12.6-16.6)
[2025-05-10 08:20] LABS: GLUCOSE,RANDOM 95.0 mg/dL (74-106)
[2025-05-10 08:21] LABS: CO2 25.0 mmol/L (21-32)
[2025-05-10 08:25] LABS: CREATININE 1.1 mg/dL (0.55-1.3)
[2025-05-10 14:53] VITALS: BMI 19.6
[2025-05-10 19:53] VITALS: RESP 18
[2025-05-11 09:22] LABS: ABSOLUTE IMMATURE GRANULOCYTES 0.05 x10^3/uL (0.0-0.031); BASOPHILS # 0.04 x10^3/uL (0.01-0.08); EOSINOPHIL % 4.7 % (0.8-7.0); EOSINOPHILS # 0.46 x10^3/uL (0.04-0.54); MCHC 30.3 g/dl (32.3-36.5); MEAN CELL VOLUME 118.5 fl (79.0-92.2); MEAN PLT VOLUME 11.5 fl (9.4-12.4); MONOCYTE # 0.55 x10^3/uL (0.30-0.82); MONOCYTE % 5.6 % (5.3-12.2); RDW 21.6 % (12.6-16.6)
[2025-05-11 10:05] LABS: GLUCOSE,RANDOM 83.0 mg/dL (74-106)
[2025-05-11 10:06] LABS: TOT PROT 5.6 g/dl (6.4-8.2)
[2025-05-11 10:07] LABS: CO2 23.0 mmol/L (21-32)
[2025-05-11 10:09] LABS: ALK PHOS 69.0 U/L (40-150)
[2025-05-11 10:11] LABS: SGOT/AST 16.0 U/L (5-34); SGPT/ALT 23.0 U/L (0-55)
[2025-05-11 10:12] LABS: CREATININE 1.04 mg/dL (0.55-1.3)
[2025-05-12] MEDS: diphenhydrAMINE HCL 25 MG CAPSULE (FP) PO ONE (00:26)
[2025-05-12 08:26] LABS: ABSOLUTE IMMATURE GRANULOCYTES 0.03 x10^3/uL (0.0-0.031); BASOPHILS # 0.04 x10^3/uL (0.01-0.08); EOSINOPHIL % 6.8 % (0.8-7.0); EOSINOPHILS # 0.54 x10^3/uL (0.04-0.54); MCHC 30.5 g/dl (32.3-36.5); MEAN CELL VOLUME 119.0 fl (79.0-92.2); MEAN PLT VOLUME 11.6 fl (9.4-12.4); MONOCYTE # 0.55 x10^3/uL (0.30-0.82); MONOCYTE % 6.9 % (5.3-12.2); RDW 21.6 % (12.6-16.6)
[2025-05-12 08:47] LABS: GLUCOSE,RANDOM 87.0 mg/dL (74-106)
[2025-05-12 08:48] LABS: CO2 25.0 mmol/L (21-32)
[2025-05-12 08:53] LABS: CREATININE 1.1 mg/dL (0.55-1.3)
[2025-05-12 14:40] VITALS: BP 105/67; PULSE 93; TEMP 97.5
== END 2025-05-12 20:10 | disposition home health service (06) | DRG 698 ==
LOC: JER 11:03 → JERBED 14:12 → OBSVTOIN 14:12 → J4S 18:29
PROVIDERS: ADMIT Internal Medicine; ATTEND Internal Medicine
DX: T83.511A Infection and inflammatory reaction due to indwelling urethral catheter, initial encounter (principal); E43 Unspecified severe protein-calorie malnutrition; L89.153 Pressure ulcer of sacral region, stage 3; R53.2 Functional quadriplegia; I50.22 Chronic systolic (congestive) heart failure; I13.0 Hypertensive heart and chronic kidney disease with heart failure and stage 1 through stage 4 chronic kidney disease, or unspecified chronic kidney disease; I48.20 Chronic atrial fibrillation, unspecified; J96.11 Chronic respiratory failure with hypoxia; Z68.1 Body mass index [BMI] 19.9 or less, adult; R78.81 Bacteremia; N31.9 Neuromuscular dysfunction of bladder, unspecified; K59.00 Constipation, unspecified; K21.9 Gastro-esophageal reflux disease without esophagitis; N18.9 Chronic kidney disease, unspecified; N39.0 Urinary tract infection, site not specified; B96.89 Other specified bacterial agents as the cause of diseases classified elsewhere; Y83.8 Other surgical procedures as the cause of abnormal reaction of the patient, or of later complication, without mention of misadventure at the time of the procedure
CPT/HCPCS: 36415; 71045-TC-FY; 80048; 80053; 81003; 82803; 83605; 83735; 84100; 84484; 85025; 85610; 85730; 86850; 86900; 86901; 87040; 87070; 87077; 87081; 87086; 87205; 87481; 87637-QW; 93005; 93010; 99285-25